=== PATIENT | male | born 1970 | race Caucasian/White ===

== ENCOUNTER 2019-10-06 15:11 | Emergency (ER) | payer SELFPAY ==
--- OUTSIDE RECORDS SUMMARY | 2019-10-06 16:16 | XMS REPORT | Continuity of Care Document ---
:1970 Author Organization [employer] Care Team Providers Name Role Phone [employer] Unavailable Un available Problems Problem Status Onset Classification Date Comments Sourc e Date Reported SOB Active 05/24/[address] STROKE Active 01/19/[address] Center LALITHA BILLING Active 04/04/20 [facility] ONLY [id number] 15 Medica l Center Discharge 03/30/20 04/02/2015 [facility] Diagnosis: 15 Medical Epileptic seizure Ce nter SEIZURES Active 03/30/20 [place] [id number] [facility] Center PNEUMONIA/URINARY Active 02/13/20 [facility][note 3] TRACT INFECTION [address] [place] [address] SEIZURES Active 12/12/19 [facility] NARCOLIC [address] [place] [address] INTOXICATION Center POSS SEIZURES Active 10/27/[address] SEIZURE, TODDS Active 10/27/[address] [place] [address] Discharge 07/21/19 07/22/2014 [facility] Diagnosis: 15 Medical Seizure Center Discharge 07/21/19 07/22/2014 [facility] Diagnosis: Medical Noncompliance Center AMS Active 07/20/[address] Center LIFE FLIGHT Active 07/20/[address] 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 [facility] [place] [address] [place] [address] Center LEFT LOWER BACK Active 06/22/19 [place] PAIN [address] [place] [address] Center VIRAL VS Active 07/09/19 [facility] PNEUMONIA SOB [facility] NECK PAIN Active 03/16/[address] Center Shortness of Active Problem 06/24/2012 [facility] as breath [facility] Center Degenerative disc Resolved Problem 06/24/2012 [facility] disease [facility] Emphysema Resolved Problem 06/24/2012 [facility] HTN - Resolved Problem 06/24/2012 [facility] Hypertension [facility] Meningitis Resolved Problem 06/24/2012 1spinal a [facility] child [facility] Slipped disc Resolved Problem 06/24/2012 2in neck-- [facility] elisa repaired [facility] Center Emphysema Resolved Problem 01/23/2016 [facility] (morphologic Medical abnormality) [place], [facility], [facility] Final: Pneumonia, 02/18/2015 [facility] unspecified City organism Cardiomegaly Resolved Problem 05/28/2016 [place] as (disorder) Medical Center,[facility] Intracranial Resolved Problem 05/28/2016 [place] as hemorrhage Medical (disorder) Center,[facility] Degeneration of Resolved Problem 05/28/2016 [facility] intervertebral Medic al disc (disorder) Cent er,[facility] Diabetes mellitus Resolved Problem 05/28/2016 [facility] (disorder) [facility] Hypertensive Resolved Problem 05/28/2016 [place] as disorder, Medical systemic arterial Ce nter, (disorder) [facility] Meningitis Resolved Problem 05/28/2016 spinal a a [facility] (disorder) [facility] Seizure (finding) Resolved Problem 05/28/2016 [facility] Dyspnea (finding) Active Problem 05/28/2016 [facility] Intervertebral Resolved Problem 05/28/2016 in neck-- [place] disc prolapse repaired Medica l (disorder) [place],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 SHORTNESS OF Active [facility] s BREATH [facility] FEBRILE Active [facility] CONVULSIONS NOS [facility] PNEUMONIA, Active Memori al UNSPECIFIED [place] ORGANISM URINARY TRACT Active [facility] orial INFECTION, SITE [place] NOT SPECIF POST TRAUMATIC Active [facility] morial SEIZURES [place] CEREBRAL Active [facility] INFARCTION, Medical UNSPECIFIED Center Medications Medication Details Route Status Patient Ordering Order Source Instructions Provider Date Acetaminophen 1 tab, PO, Active 05/25/ Karie 325 MG / Q4-6H, PRN [facility] Hospital Hydrocodone Pain Score Bitartrate 5 MG 6-10, X 5 Oral Tablet day, # 30 [[place] 5/325] tab, 0 Refill(s) Sodium Chloride 25 mL, Inactive 05/25/ Karie 0.9% IV Route: IV, [facility] Hospital Start date: 05/25/16 2:50:00 [employer]TELLIGENCE SUPERINTENDENT, Duration: 30 day, Stop date: 06/24/16 2:49:00 [employer]TE[employer] SUPERINTENDENT, PRN Line Flush Acetaminophen Notes: Do Inactive Karie 325 MG / not exceed 2017 Hospital Hydrocodone 4gm/day of Bitartrate 10 MG acetaminophe Oral Tablet n. (Same [Saltese 10/325] as: [place] 325/10) Sodium Chloride 1,000 mL, Inactive [place] 0.154 MEQ/ML Rate: 125 2017 Hospital Injectable ml/hr, Solution Infuse over: 8 hr, Route: IV, Dosing Weight 109.091 kg, Total Volume: 1,000, Start date: 05/25/16 0:46:00 [employer]TELL[employer] SUPERINTENDENT, Duration: 30 day, Stop date: 06/24/16 0:45:00 [employer]TE[employer] SUPERINTENDENT Levetiracetam Notes: Same Inactive [place] as [facility] 2017 Hospital Mix with 100 mL NS, LR or D5W MEDICATION WASTE Product Size: 500 mg Product Wasted: _0__ mg Saline Flush Notes: (Same Inactive [place] 0.9% as: 2017 Hospital Posiflush) [facility] Notes: Same No Longer Karie as [facility] Active 2017 Hospital Mix with 100 mL NS, LR or D5W MEDICATION WASTE Product Size: 500 mg Product Wasted: __0 mg Ativan 2 mg, Route: Inactive Karie IVP, Drug 2017 Hospital form: INJ, ONCE, Dosing Weight 109.091, kg, Priority: STAT, Start date: 05/24/16 20:23:00 [employer]TELLIGENCE SUPERINTENDENT, Stop date: 05/24/16 20:23:00 [employer]TELLIGENCE SUPERINTENDENT Ativan 2 mg, Route: Inactive Karie IVP, Drug 2017 Hospital form: INJ, ONCE, Dosing Weight 109.091, kg, Priority: STAT, Start date: 05/24/16 19:49:00 [employer]PER[employer] INTELLIGENCE SUPERINTENDENT, Stop date: 05/24/16 19:49:00 [employer] INTELLIGENCE SUPERINTENDENT Ondansetron 4 mg, Route: Inactive Vero y IVP, Drug 2017 Hospital form: INJ, ONCE, Dosing Weight 109.091, kg, Priority: STAT, Start date: 05/24/16 19:48:00 [employer]PER[employer] INTELLIGENCE SUPERINTENDENT, Stop date: 05/24/16 19:48:00 [employer]PERATIONS INTELLIGENCE SUPERINTENDENT Dexamethasone Notes: Inactive Vero saunders MEDICATION 2017 Hospital WASTE Product Size: 10 mg Product Wasted: __0_ mg Valium Notes: (Same Inactive [place]ie as: Valium) 2017 Hospital WASTE: F/P - Black; E - White/Blue Hydromorphone Notes: Same Inactive Sh[place]nam ty as Dilaudid 2017 Hospital Fentanyl Notes: (Same Inactive Karie as: 2017 Hospital Sublimaze) Preservative free. Sodium Chloride 1,000 mL, Inactive [place] 0.154 MEQ/ML 1,000 ml/hr, 2017 Hospit al Injectable Infuse Over: Solution 1 hr, Route: IV, 1,000, Drug form: INJ, ONCE, Priority: STAT, Dosing Weight 109.091 kg, Start date: 05/24/16 16:37:00 OPER[employer] INTELLIGENCE SUPERINTENDENT, Duration: 1 doses or times, Stop date: 05/24/16 16:37:00 [employer]PER[employer] INTELLIGENCE SUPERINTENDENT Ondansetron Notes: (Same Inactive Vero saunders as: Zofran) 2017 Hospital MEDICATION WASTE Product Size: 4 mg Product Wasted: _0__ mg Levetiracetam 1,000 mg = 2 [place] 500 MG Oral tab, PO, 2016 Medical Tablet [Keppra] BID, # 120 Cente r tab, 2 Refill(s) Lisinopril Notes: (Same [place] as: 2016 Medical Prinivil, Center Zestril) Aspirin 81 MG Notes: Do No Longer [place] as Enteric Coated not crush or Active 2015 Medi pablito Tablet chew. (Same Center As: Ecotrin) Acetaminophen Notes: (Same Inactive [place] 325 MG / as: [place] 2016 Medical Hydrocodone 325/5) Do Center Bitartrate 5 MG not exceed Oral Tablet 4gm/day of [[place] 5/325] acetaminophe n. heparin Notes: Inactive [place] porcine 2016 Medical heparin Center Tylenol Notes: Max No Longer [place] acetaminophe Active 2016 Medical n = 4000 Center mg/day (4 gm/day). (Same as: Tylenol) Saline Flush Notes: (Same No Longer [place] 0.9% as: BD Active 2015 Medical Posiflush) Center atorvastatin Notes: Same [place] Longer [place] as Lipitor Active 2015 Medical Center Docusate Notes: (Same No Longer [place] as: Colace) Active 2015 Medical (Do Not Center Crush) Lisinopril Notes: (Same No Longer [place] as as: Active 2015 Medical Prinivil, Center Zestril) Keppra Notes: Same No Longer [place] as Keppra Active 2015 Medical Mix with 100 Center mL NS, LR or D5W MEDICATION WASTE Product Size: 500 mg Product Wasted: 0 mg Saline Flush Notes: (Same No Longer [place] 0.9% as: BD Active 2015 Medical Posiflush) [place] Labetalol 105 mmHg, No Longer Sarah Priority: Active 2015 Medical Routine, Center Start date: 01/19/16 19:43:00 CDT, Duration: 30 day, Stop date: 02/18/16 19:42:00 CDT Bisacodyl Notes: (Same No Longer [place] As: Active 2015 Medical Dulcolax, [place] Bisco-Lax) iodixanol 100 mL, Inactive Sarah Route: IVP, 2015 Medical Drug Form: [place] SOLN, Dosing Weight 109, kg, ONCALL, STAT, Start date: 01/19/16 18:55:00 CDT, Duration: 1 doses or times, Dose = 2.2ml/kg, Max dose = 100ml -- "To be infused by Radiology Staff ONLY" Saline Flush Notes: (Same No Longer [place] 0.9% as: BD Active 2015 Medical Posiflush) [place] Acetaminophen 1 tab, Inactive [place] 325 MG / Route: PO, 2015 Medical Hydrocodone Drug Form: [place] Bitartrate 10 MG TAB, Dosing Oral Tablet Weight [Salt[place] 10/325] 95.455, kg, ONCE, STAT, Start date: 03/30/15 12:41:00, Stop date: 03/30/15 12:41:00 potassium Notes: (Same Inactive [place] phosphate-sodium as: 2014 Medical phosphate 250 Neutra-Phos) Cente r mg-278 mg-164 mg Each 1.25 oral powder gm pkt has 250mg phosphorous. Mix w/2.5oz water and stir. Levetiracetam 750 mg = 1 Active [place] 750 MG Oral tab, PO, 2014 Medical Tablet [Keppra] BID, # 60 Center tab, 0 Refill(s) K-Phos Original Route: PO, Inactive [place] ONCE, Dosing 2014 Medical Weight Center 95.455, kg, Start date: 03/30/15 12:09:00, Stop date: 03/30/15 12:09:00 Keppra 1,500 mg, Inactive [place] Route: IV, 2014 Medical ONCE, Dosing Center Weight 95.455, kg, Start date: 03/30/15 12:08:00, Stop date: 03/30/15 12:08:00 Tylenol 650 mg, Inactive [facility] Route: PO, 2014 Medical Drug form: Center TAB, ONCE, Dosing Weight 95.455, kg, Priority: STAT, Start date: 03/30/15 10:19:00, Stop date: 03/30/15 10:19:00 Morphine 4 mg, Route: Inactive [place] IVP, Drug 2014 Medical form: INJ, Center ONCE, Dosing Weight 95.455, kg, Priority: STAT, Start date: 03/30/15 10:18:00, Stop date: 03/30/15 10:18:00 Saline Flush Notes: Same No Longer [place] 0.9% as: BD Active 2014 Medical Posiflush Center Sterile levofloxacin 750 750 mg = 1 Active mg oral tablet tab, PO, 2014 [facility] [id number], # 5 City tab, 0 Refill(s) Valproic Acid 750 mg = 3 Active 250 MG Oral cap, PO, 2014 [facility] Capsule Q12H, # 180 City cap, 0 Refill(s) remove patch Notes: Inactive Remove old 2014 [facility] patch before [facility] application of new patch. valproic acid Notes: (Same Inactive As: 2014 [facility] Depakene) [facility] (Do Not Crush) Ativan Notes: (Same No Longer as: Ativan) Active 2014 [facility] Nicotine Notes: (Same No Longer as: Active 2014 [facility] Habitrol) [facility] "Remove old patch before application of new patch" Valproic Acid Notes: (Same No Longer 250 MG Oral As: Active 2014 [facility] Capsule Depakene) [facility] (Do Not Crush) Levaquin Notes: Do No Longer not give Active 2014 [facility] w/antacids, [facility] dairy pdt & minerals Take 1 hr before or 2 hr after dairy products Lorazepam Notes: (Same No Longer as: Ativan) Active 2014 [facility] Ativan Notes: (Same Inactive as: Ativan) 2014 [facility] fosphenytoin Notes: (Same Inactive as: Cerebyx) [address] [place] [address] Stated mg = [facility] mgPE. Refrigerat e ANTICONVULSA NT Do not confuse with celebrex. MEDICATION WASTE Product Size: 500 mg Product Wasted: 0_ mg Robaxin Notes: (Same No Longer as:Robaxin) Active 2014 [facility] Lisinopril Notes: (Same No Longer as: Active 2014 [facility]) Valproic Acid Notes: Inactive 100 MG/ML Dilute in at [address] [place] [address] Injectable least 50ml [facility] Solution D5W or NS. Infusion rate = 20 mg/min (Same As: Depacon) Acetaminophen Notes: Do No Longer 325 MG / not exceed Active [address] [place] [address] Hydrocodone 4gm/day of [facility] Bitartrate 10 MG acetaminophe Oral Tablet n. (Same [Saltese 10325] as: [place] 325/10) Phenytoin Notes: (Same No Longer as: Active 2014 [facility] Dilantin) [facility] Do not infuse greater than 50 mg/min. MEDICATION WASTE Product Size: 100 mg Product Wasted: ___ mg Sodium Chloride 25 mL, No Longer 0.9% IV Route: IV, Active [address] [place] [address] Start date: [facility] 02/12/15 23:05:00, Duration: 30 day, Stop date: 03/14/15 22:04:00, PRN Line Flush BD Normal Saline Notes: (Same No Longer Flush as: BD Active 2014 [facility] Posiflush) [facility] potassium Notes: No Longer chloride Infuse at a Active 2014 [facility] rate of 10 City mEq/hr. (Same as: KCL) potassium Notes: (Same No Longer phosphate-sodium as: Active 2014 [facility] l phosphate 250 Neutra-Phos) [facility] mg-278 mg-164 mg Each 1.25 oral powder gm pkt has 250mg phosphorous. Mix w/2.5oz water and stir. potassium Notes: (Same No Longer phosphate + as: K Active 2014 [facility] Sodium Chloride Phosphate.) [facility] 0.9% IV 250 mL 1 mMol phoshate has 1.47 mEq potassium Infuse over 4 hours sodium phosphate 15 mmol, 5 No Longer + Sodium mL, Route: [facility] 2014 [facility] Chloride 0.9% IV IVPB, PRN, City 250 mL Dosing Weight 86.3, kg, PRN Abnormal Lab Result, For NON-ICU Patients Only., Start date: 02/12/15 22:59:00, Duration: 30 day, Stop date: 03/14/15 21:58:00 Magnesium 1 gm, 100 No Longer Sulfate mL, Route: [facility] 2014 [facility] IVPB, Drug [facility] form: INJ, PRN, Dosing Weight 86.3, kg, PRN Abnormal Lab Result, For NON-ICU Patients Only., Start date: 02/12/15 22:59:00, Duration: 30 day, Stop date: 03/14/15 21:58:00 Calcium 2 gm, 20 mL, No Longer Gluconate Route: IVPB, [facility] 2014 [facility] PRN, Dosing City Weight 86.3, kg, PRN Abnormal Lab Result, For NON-ICU Patients Only., Start date: 02/12/15 22:59:00, Duration: 30 day, Stop date: 03/14/15 21:58:00 Magnesium Oxide Notes: (Same No Longer 10/ M H as: Mag-Ox Active 2014 [facility] 400) [facility] Magnesium oxide [id number] elemental magnesium Dose=____mg magnesium oxide (___mg elemental magnesium) Zosyn Notes: (Same No Longer as: Zosyn) Active 2014 [facility] Dosing based City on Piperacillin component MEDICATION WASTE Product Size: 4500 mg Product Wasted: 0 mg Docusate Notes: (Same No Longer as: Colace) Active 2014 [facility] (Do Not City Crush) Ondansetron Notes: (Same No Longer as: Zofran) Active 2014 [facility] MEDICATION WASTE Product Size: 4 mg Product Wasted: ___ mg Acetaminophen Notes: Do No Longer not exceed [address] [place] [address] gm/day. City (Same as: Tylenol) Lorazepam Notes: (Same No Longer as: Ativan) Active 2014 [facility] Vancomycin Notes: TIME No Longer CRITICAL Active [address] [place] [address] MEDICATION [facility] NS 1,000 mL 1,000 mL, No Longer Rate: [address] [place] [address] ml/hr, [facility] Infuse over: 8 hr, Route: IV, Dosing Weight 89.008 kg, Total Volume: 1,000, Start date: 02/12/15 18:32:00, Duration: 30 day, Stop date: 03/14/15 18:31:00 potassium Notes: (Same Inactive [place] phosphate-sodium as: 2014 Medical phosphate 250 Neutra-Phos) Cente r mg-278 mg-164 mg Each 1.25 oral powder gm pkt has 250mg phosphorous. Mix w/2.5oz water and stir. magnesium 2 gm, 50 mL, Inactive [place] sulfate 2 gm in Route: IVPB, 2015 Med ical Water 50 ml Drug form: Center INJ, ONCE, Dosing Weight 89.008, kg, Start date: 12/14/14 9:52:00, Duration: 2 hr, Stop date: 12/14/14 9:52:00 Folic Acid 1 MG 1 mg = 1 Active [place] Oral Tablet tab, PO, 2014 Medical Daily, # 30 Center tab, 2 Refill(s) thiamine 100 mg 100 mg = 1 [place] oral tablet tab, PO, 2014 Medical Daily, # 30 Center tab, 2 Refill(s) Valproic Acid 500 mg = 2 [place] 250 MG Oral cap, PO, 2015 Medical Capsule Q12H, # 120 Center cap, 2 Refill(s) cefpodoxime 100 Special Active [place] mg oral tablet Instructions 2015 Medi pablito : Take until Center all pills are gone. Neutra-Phos Notes: (Same Inactive [place] as as: 2014 Medical Neutra-Phos) Center Each 1.25 gm pkt has 250mg phosphorous. Mix w/2.5oz water and stir. Magnesium 2 gm, 50 mL, Inactive [place] Sulfate Route: IVPB, 2014 Medical Drug form: Center INJ, ONCE, Dosing Weight 89.008, kg, Start date: 12/14/14 6:12:00, Duration: 2 hr, Stop date: 12/14/14 6:12:00 cefpodoxime Notes: With No Longer G[place]gio as food. (Same Active 2014 Medical As: Vantin) Center Levofloxacin Notes: Do Inactive [place] not give 2014 Medical w/antacids, Center dairy pdt & minerals Take 1 hr before or 2 hr after dairy pdt (Same as:Levaquin) Ativan Notes: (Same No Longer [place] as: Ativan) Active 2014 [facility] Folic Acid Notes: (Same No Longer [place] as as: Folvite) Active 2014 Medical [place] multivitamin Notes: (Same No Longer [place] as:Thera) Active 2014 Medical Take with Center food. Thiamine Notes: (Same No Longer [place] As: Vitamin Active 2014 [facility] B1) Center Acetaminophen Notes: Do No Longer Gior[place] as 325 MG / not exceed Active 2014 [facility] Hydrocodone 4gm/day of Center Bitartrate 10 MG acetaminophe Oral Tablet n. (Same [Salt[place] 10325] as: [place] 325/10) Lorazepam Notes: (Same No Longer [place] as: Ativan) Active 2014 Medical Center Fentanyl Notes: (Same Inactive [place] as: 2015 Medical Sublimaze) Center Preservative free. Valproic Acid Notes: (Same No Longer [place] 250 MG Oral As: Active 2014 Medical Capsule Depakene) Center (Do Not Crush) Docusate Sodium Notes: (Same No Longer H [place] 50 MG / as Active 2014 Medical sennosides, [facility] Senokot-S) Cente r 8.6 MG Oral Equiv. to Tablet Di-Colace. heparin Notes: No Longer [place] porcine Active 2014 [facility] heparin Center Sodium Chloride 1,000 mL, No Longer [place] 0.154 MEQ/ML Rate: 125 Active 2014 Medical Injectable ml/hr, Center Solution Infuse over: 8 hr, Route: IV, Dosing Weight 89.9 kg, Total Volume: 1,000, Start date: 12/12/14 4:51:00, Duration: 30 day, Stop date: 01/11/15 4:50:00 Saline Flush Notes: Same No Longer [place] 0.9% as: BD Active 2014 [facility] Posiflush Center Sterile Valproic Acid Notes: Inactive [place] 100 MG/ML Dilute in at 2014 [facility] Injectable least 50ml Center Solution D5W or NS. Infusion rate = 20 mg/min (Same As: Depacon) Lorazepam Notes: (Same Inactive [place] as: Ativan) 2014 [facility] Doxycycline 100 100 mg = 1 Active [place] Oral Capsule cap, PO, [address] [facility] [address] Daily, X 7 day, # 7 cap, 0 Refill(s) normal saline 1,000 mL, Inactive 0.9% IV 1,000 mL Rate: 100 2014 [facility] ml/hr, Infuse over: 10 hr, Route: IV, Dosing Weight 86.364 kg, Total Volume: 1,000, Start date: 10/27/14 10:08:00, Duration: 30 day, Stop date: 11/26/14 10:07:00 Lisinopril Notes: (Same Inactive as: 2014 [facility] Prinivil, Zestril) Vyvanse 70 mg, Inactive Route: PO, 2014 [facility] Drug Form: CAP, Dosing Weight 86.364, kg, QAM, Start date: 10/27/14 9:00:00, Duration: 30 day, Stop date: 11/25/14 9:00:00 Divalproex Notes: (Same Inactive Sodium 250 MG as: Depakote 2014 [facility] Enteric Coated Delayed Tablet Release) Do [Depakote] not confuse with the extended-rel ease tablet. Delayed absorption, enteric coated tablet. Do not crush Celexa 10 mg, 1 Inactive tab, Route: 2014 [facility] PO, Drug form: TAB, Daily, Dosing Weight 86.364, kg, Start date: 10/27/14 9:00:00, Duration: 30 day, Stop date: 11/25/14 9:00:00 Patient's own Patient's Inactive med Vynase 70mg own med 2014 [facility] t Vynase 70mg, 1 cap, Drug form: MISC, Route: PO, QAM, 10/27/14 9:00:00, Duration: 30 day, Stop date: 11/25/14 9:00:00 Acetaminophen Notes: Do Inactive 325 MG / not exceed 2014 Hydrocodone 4gm/day of Bitartrate 10 MG acetaminophe Oral Tablet n. (Same [Salt[place] 10/325] as: [place] 325/10) nitroglycerin Notes: (Same No Longer 0.4 mg as:Nitroquic Active 2014 sublingual k, tablet Nitrostat) "Do Not Crush" Sublingual tablet atropine 0.5 mg, 5 No Longer mL, Route: Active 2014 IVP, Drug form: INJ, PRN, PRN Bradycardia, Start date: 10/26/14 23:28:00, Duration: 30 day, Stop date: 11/25/14 23:27:00 Lorazepam 1 mg, Route: Inactive IVP, Drug 2014 form: INJ, ONCE, Dosing Weight 86.364, kg, PRN as needed for anxiety, Start date: 10/26/14 18:06:00 Dilantin 1,000 mg, Inactive Route: IVPB, 2014 ONCE, Dosing Weight 86.364, kg, Priority: STAT, Start date: 10/26/14 17:59:00, Stop date: 10/26/14 17:59:00 Lorazepam 2 mg, Route: Inactive IVP, Drug 2014 [facility] form: INJ, ONCE, Dosing Weight 86.364, kg, Priority: STAT, Start date: 10/26/14 17:49:00, Stop date: 10/26/14 17:49:00 Acetaminophen 1 tab, Inactive 325 MG / Route: PO, 2014 [facility] Hydrocodone Drug Form: Bitartrate 5 MG TAB, Dosing Oral Tablet Weight [Saltese 5/325] 86.364, kg, ONCE, STAT, Start date: 10/26/14 17:12:00, Stop date: 10/26/14 17:12:00 Ativan 2 mg, Route: Inactive IM, Drug 2014 [facility] form: INJ, ONCE, Dosing Weight 86.364, kg, Priority: STAT, Start date: 10/26/14 16:00:00, Stop date: 10/26/14 16:00:00 Saline Flush Notes: (Same Inactive 0.9% as: BD 2014 [facility] Posiflush) Divalproex 250 mg = 1 Active [place] Sodium 250 MG tab, PO, 2014 Medical Enteric Coated TID, # 90 Center Tablet tab, 0 [Depakote] Refill(s) methocarbamol 750 mg = 1 Active 07/20[facility] [place] 750 mg oral tab, PO, 2014 Medical tablet TID, # 15 Center tab, 0 Refill(s) Lisinopril Notes: (Same Inactive 07/20[facility] [place] as: 2014 Medical Prinivil, Center Zestril) Divalproex Notes: (Same Inactive 07/20[facility] [place] Sodium 250 MG as: Depakote 2014 Medic al Enteric Coated Delayed Center Tablet Release) Do [Depakote] not confuse with the extended-rel ease tablet. Delayed absorption, enteric coated tablet. Do not crush Soma 350 mg, Inactive 07/20[facility] [place] Route: PO, 2014 Medical Drug form: Center TAB, TID, Dosing Weight 85, kg, Start date: 07/20/14 9:00:00, Duration: 30 day, Stop date: 08/18/14 17:00:00 Robaxin Notes: (Same Inactive 07/20[facility] [place] as:Robaxin) 2014 [facility] Lovenox Notes: (Same Inactive 07/20[facility] as: Lovenox) 2014 Medical Center Diazepam Notes: (Same Inactive [place] as: Valium) 2014 [facility] Center Acetaminophen Notes: Do Inactive [place] 325 MG / not exceed 2015 Medical Hydrocodone 4gm/day of Center Bitartrate 10 MG acetaminophe Oral Tablet n. (Same [Saltese 10325] as: [place] 325/10) lisdexamfetamine 70 mg = 1 [place] dimesylate 70 MG cap, PO, 2014 Medica l Oral Capsule QAM, ADHD, 0 Center [Vyvanse] Refill(s) Clonidine 0.1 mg, PO, Inactive [place] Hydrochloride BID, 2014 Medical 0.1 MG Oral Elevated BP, Center Tablet # 60 tab, 0 Refill(s) lisinopril 40 mg 40 mg = 1 [place] tab, PO, 2014 Medical Daily, # 30 Center tab, 0 Refill(s) diazepam 10 mg 10 mg = 1 [place] oral tablet tab, PO, 2014 Medical TID, Center Anxiety, 0 Refill(s) Carisoprodol 350 350 mg = 1 Active [place] Oral Tablet tab, PO, 2014 Medical [Soma] TID, # 21 Center tab, 0 Refill(s) Acetaminophen 1 tab, PO, [place] 325 MG / Q4H, for 2015 Medical Hydrocodone pain, # 24 Center Bitartrate 10 MG tab, 0 Oral Tablet Refill(s) [Saltese ] Divalproex 250 mg = 1 Active [place] Sodium 250 MG tab, PO, 2015 Medical Enteric Coated TID, # 270 Center Tablet tab, 0 [Depakote] Refill(s) Lorazepam Notes: (Same Inactive [place] as: Ativan) 2014 [facility] Acetaminophen Notes: (Same Inactive [place] 325 MG / as: [place] 2015 Medical Hydrocodone 325/5) Do Center Bitartrate 5 MG not exceed Oral Tablet 4gm/day of acetaminophe n. Divalproex 250 mg = 1 Inactive [place] Sodium 250 MG tab, PO, 2014 Medical Enteric Coated BID, # 30 Center Tablet tab, 0 [Depakote] Refill(s) Keppra 500 mg, Inactive [place] Route: IV, 2014 Medical ONCE, Dosing Center Weight 85, kg, Start date: 07/19/14 21:06:00, Stop date: 07/19/14 21:06:00 Magnesium 1 gm, 100 Inactive [place] Sulfate mL, Route: [address] [place] [address] IVPB, Drug Center form: INJ, ONCE, Dosing Weight 85, kg, Priority: STAT, Start date: 07/19/14 20:13:00, Stop date: 07/19/14 20:13:00 Valproic Acid Notes: Inactive [place] 100 MG/ML Dilute in at 2014 [facility] Injectable least 50ml Center Solution D5W or NS. Infusion rate = 20 mg/min (Same As: Depacon) Dilaudid 1 mg, Route: Inactive [place] IVP, ONCE, 2014 Medical Dosing Center Weight 85, kg, Priority: STAT, Start date: 07/19/14 18:47:00, Stop date: 07/19/14 18:47:00 Saline Flush Notes: (Same No Longer [place] 0.9% as: BD Active 2014 [facility] Posiflush) [place] Sodium Chloride 1,000 mL, [place] 0.154 MEQ/ML Infuse Over: 2014 Medica l Injectable 1 hr, Route: Center Solution IV, ONCE, Priority: STAT, kg, Start date: 07/19/14 17:48:00, Duration: 1 doses or times, Stop date: 07/19/14 17:48:00 [place] 5/325 oral 1 tab, PO, PO Active [facility] [place] tablet Q4-6H, PRN, 2012 Medical 21 tab, as Center needed for pain, Substitution Allowed, Maintenance Flexeril 10 mg 10 mg, 1 PO Active [facility] [place] oral tablet tab, PO, 2012 Medical TID, PRN, 30 Center tab, for spasm, Substitution Allowed, TAB naproxen 500 mg 500 mg, 1 PO Active [facility] [place] oral tablet tab, PO, 2012 Medical BID, PRN, 30 Center tab, Pain, Substitution Allowed morphine Sulfate 6 mg, 1.5 IM No Longer [facility] mL, Route: Active 2012 Medical IM, Drug Center form: INJ, ONCE, Dosing Weight 93.182, kg, Priority: STAT, Start date: 06/22/12 14:32:00, Stop date: 06/22/12 14:32:00 Valium 10 mg, 1 PO No Longer [facility] tab, Route: Active 2012 Medical PO, Drug Center form: TAB, ONCE, Dosing Weight 93.182, kg, Priority: STAT, Start date: 06/22/12 14:32:00, Stop date: 06/22/12 14:32:00 [place] 10/325 1 tab, PO, PO Active [facility] oral tablet Q6H, PRN, 2011 Medical tab, for Center pain, Substitution Allowed, Maintenance acetaminophen-hy 2 tab, PO [place] drocodone 325 Route: PO, Active 2011 Medical mg-10 mg oral Drug Form: Center tablet TAB, Q6H, PRN as needed for pain, Start date: 07/11/11 11:20:00, Duration: 30 day, Stop date: 08/10/11 11:19:00 azithromycin 250 250 mg, 1 PO No Longer [facility] [place] mg oral tablet tab, Route: Active 2011 Medic al PO, Drug Center form: TAB, BID, Start date: 07/11/11 9:00:00, Duration: 4 day, Stop date: 07/14/11 17:00:00 azithromycin 250 500 mg, 2 PO No Longer [facility] [place] mg oral tablet tab, Route: Active 2011 Medic al PO, Drug Center form: TAB, ONCE, Start date: 07/10/11 17:00:00, Stop date: 07/10/11 17:00:00 azithromycin 500 mg, 2 PO [place] Longer [facility] [place] tab, Route: Active 2011 Medical PO, Drug Center form: TAB, [id number], Start date: 07/10/11 15:00:00, Duration: 3 day, Stop date: 07/12/11 15:00:00 Tessalon Perles 200 mg, 2 PO [place] cap, Route: Active 2011 Medical PO, Drug Center form: CAP, TID, Start date: 07/10/11 9:00:00, Duration: 30 day, Stop date: 08/08/11 17:00:00 lisinopril 20 mg, 1 PO No Longer [facility] tab, Route: Active 2011 Medical PO, Drug Center form: TAB, Daily, Start date: 07/10/11 9:00:00, Duration: 30 day, Stop date: 08/08/11 9:00:00 Celexa 10 mg, 0.5 PO No Longer [facility] tab, Route: Active 2011 Medical PO, Drug Center form: TAB, Daily, Start date: 07/10/11 9:00:00, Duration: 30 day, Stop date: 08/08/11 9:00:00 Abilify 6 mg, 3 tab, PO No Longer [facility] Route: PO, Active 2011 Medical Drug form: Center TAB, Daily, Start date: 07/10/11 9:00:00, Duration: 30 day, Stop date: 08/08/11 9:00:00 nicotine 21 mg, 1 TOP No Longer [facility] patch, Active 2011 Medical Route: TOP, Center Drug form: ERFILM, Daily, Start date: 07/10/11 9:00:00, Duration: 30 day, Stop date: 08/08/11 9:00:00 acetylcysteine 600 mg, 3 NEB [place] 20% inhalation ml, Route: Active 2011 Medica l solution NEB, Drug Center Form: SOLN, RQ6H, Start date: 07/10/11 2:00:00, Stop date: 08/08/11 20:00:00 albuterol-ipratr 3 ml, Route: NEB No Longer [facility] opium 2.5-0.5 mg NEB, Drug Active 2011 Medic al inhalation Form: SOLN, Center solution RQ6H, Start date: 07/10/11 2:00:00, Duration: 30 day, Stop date: 08/08/11 20:00:00 Mucinex 600 mg, 1 PO No Longer [facility] tab, Route: Active 2011 Medical PO, Drug Center form: ERTAB, Q12H, Start date: 07/09/11 21:00:00, Duration: 30 day, Stop date: 08/08/11 9:00:00 azithromycin 500 mg, PO No Longer [facility] Route: PO, Active 2011 Medical Drug form: Center TAB, [id number], Start date: 07/09/11 21:00:00, Duration: 30 day, Stop date: 08/07/11 21:00:00 tuberculin 5 unit, 0.1 INTRADERM [place] purified protein mL, Route: Active 2011 Medi pablito derivative 5 INTRADERM, Center tuberculin ONCE, Start units/0.1 mL date: intradermal 07/09/11 solution 20:47:00, Stop date: 07/09/11 20:47:00 hydrALAZINE 10 mg, 0.5 IV [place] mL, Route: Active 2011 Medical IV, Drug Center form: INJ, Q4H, PRN Hypertension , Start date: 07/09/11 20:42:00, Duration: 30 day, Stop date: 08/08/11 20:41:00, SBP greater than 150 Valium 10 mg, 1 PO [facility] Longer [facility] tab, Route: Active 2011 Medical PO, Drug Center form: TAB, TID, PRN as needed for anxiety, Start date: 07/09/11 20:37:00, Duration: 30 day, Stop date: 08/08/11 20:36:00 Saltese 10/325 2 tab, PO No Longer [facility] oral tablet Route: PO, Active 2011 Medical Drug Form: Center TAB, Q6H, PRN as needed for pain, Start date: 07/09/11 20:36:00, Stop date: 08/08/11 20:35:00 ondansetron 4 mg, 2 mL, IVP No Longer [facility] [place] Route: IVP, Active 2011 Medical Drug form: Center INJ, Q6H, PRN Nausea & Vomiting, Start date: 07/09/11 20:34:00, Duration: 30 day, Stop date: 08/08/11 20:33:00 docusate 100 mg, 1 PO No Longer [facility] cap, Route: Active 2011 Medical PO, Drug Center form: CAP, BID, PRN Constipation , Start date: 07/09/11 20:34:00, Duration: 30 day, Stop date: 08/08/11 20:33:00 morphine Sulfate 2 mg, 1 mL, IVP [place]er [place] 07/09/ [facility] Route: IVP, Active 2011 Medical Drug form: Center INJ, Q4H, PRN Pain, Start date: 07/09/11 20:32:00, Duration: 30 day, Stop date: 08/08/11 20:31:00 azithromycin 500 mg, IVPB No Longer [facility] Route: IVPB, Active 2011 Medical ONCE, Center Priority: STAT, Start date: 07/09/11 18:08:00, Stop date: 07/09/11 18:08:00 Celexa PO, Daily, PO Active [facility] Substitution 2011 Medical Allowed Center azithromycin 500 mg, PO No Longer [facility] Route: PO, Active 2011 Medical ONCE, Center Priority: STAT, Start date: 07/09/11 17:26:00, Stop date: 07/09/11 17:26:00 Unknown Home PO, PO No Longer [facility] Medication Substitution Active 2011 Medical Allowed, [place] prnprn Abilify PO, Daily, PO No Longer [facility] Substitution Active 2011 Medical Allowed Center Valium 10 mg 10 mg, 1 PO No Longer [facility] oral tablet tab, PO, Active 2011 Medical TID, PRN, Center Anxiety, Substitution Allowed, TAB albuterol 0.083% 2.49 mg, 3 NEB No Longer [facility] inhalation mL, Route: Active 2011 Medical solution NEB, Drug Center form: SOLN, Q15Min, Priority: STAT, Start date: 07/09/11 17:09:00, Duration: 3 doses or times, Stop date: 07/09/11 17:39:00 Rocephin 1 gm, Route: IVPB [facility] Longer [facility] IVPB, Drug Active 2011 Medical form: Center PDR/INJ, [id number], Start date: 07/09/11 17:00:00, Duration: 30 day, Stop date: 08/07/11 17:00:00 Sodium Chloride 500 mL, IV No Longer [facility] [place] 0.9% (Bolus) IV Rate: 500 Active 2012 Medica l 500 mL ml/hr, Center Infuse over: 1 hr, Route: IV, Total Volume: 500, Bolus Dose, Priority: STAT, Start date: 07/09/11 16:18:00, Duration: 1 doses or times, Stop date: 07/09/11 17:17:00 Allergies, Adverse Reactions, Alerts Substance Category Reaction Severity Reaction Status Date Comments S ource type Reported aspirin Assertion Drug Active [facility] morphine Assertion Drug Active [facility] penicillins Assertion Drug Active [facility] sulfa drugs Assertion Drug Active [facility] Toradol Assertion Drug Active [facility] traMADol Assertion Drug Active [facility] Immunizations Immunization Date Given Site Status Last Updated Comments Ally rce pneumococcal 05/25/2016 Not Given [facility] 23-valent vaccine Ho spital influenza virus 05/25/2016 Not Given [facility] vaccine, Hospital inactivated Results Order Name Results Value Reference Date Interpretation Comments Ally rce Range URINE AND UA <=1.0 0.1 - 1.0 05/25 [facility] STOOL Urobilinogen mg/dL /2016 [facility] URINE AND UA Turbidity Clear Clear 05/25 [facility] STOOL (05/25/16 12:51 AM) /2016 [facility] URINE AND UA Spec Grav 1.034 <=1.030 05/25 [facility] STOOL [facility] URINE AND UA Color Light Yellow Yellow 05/25 [facility] STOOL *NA* /2016 [facility] (05/25/16 12:51 AM) URINE AND UA Ketones Negative Negative 05/25 [facility] STOOL mg/dL mg/dL Hospital URINE AND UA Bili Negative Negative 05/25 [facility] STOOL *NA* /2016 [facility] (05/25/16 12:51 AM) URINE AND UA pH 8.0 5.0 - 8.0 05/25 [facility] STOOL Hospital URINE AND UA Protein Negative Negative 05/25 [facility] STOOL mg/dL mg/dL [facility] URINE AND UA Glucose Negative Negative 05/25 [facility] STOOL mg/dL mg/dL Hospital URINE AND UA Sq Epi Occasional Few /LPF 05/25 [facility] STOOL /LPF /2016 Hospital URINE AND UA RBC 1 0 - 2 05/25 [facility] STOOL Hospital URINE AND UA Blood Negative Negative 05/25 [facility] STOOL (05/25/16 12:51 AM) [facility] URINE AND UA Nitrite Negative Negative 05/25 [facility] STOOL (05/25/16 12:51 AM) [facility] URINE AND UA Leuk Est Negative Negative 05/25 [facility] STOOL (05/25/16 12:51 AM) [facility] CARDIAC CK MB Index 0.9 0.0 - 2.5 05/24 [facility] CARDIAC CK MB 1.6 0.5 - 3.6 05/24 [facility] CARDIAC Total CK 183 12 - 191 05/24 [facility] CARDIAC Troponin-I <0.02 0.00 - 05/24 [facility] ENZYMES 0.40 Hospital ELECTROLYT AGAP 11.7 10.0 - 05/24 [facility] ES 20.0 Hospital ELECTROLYT eGFR 97 05/24 Result Comment: The Hospital eGFR is calculated using the CKD-EPI formula. In most young, healthy individuals the eGFR will be >90 mL/min/1.73m2 . The eGFR declines with age. An eGFR of 60-89 may be normal in some populations, particularly the elderly, for whom the CKD-EPI formula has not been extensively validated. Use of the eGFR is not recommended in the following populations:< br/>
Brittany viduals with unstable creatinine concentration s, including patients and those with serious co-morbid conditions.<b r/>
Patie nts with extremes in muscle mass or diet.

The data above are obtained from the National Kidney Disease Education Program (NKDEP) which additionally recommends that when the eGFR is used in patients with extremes of body mass index for purposes of drug dosing, the eGFR should be multiplied by the estimated BMI. ELECTROLYT CO2 27 24 - 32 05/24 Hospital ELECTROLYT Calcium Lvl 9.0 8.5 - 10.5 05/24 y Hospital ELECTROLYT Glucose Lvl 110 70 - 99 05/24 Hospital ELECTROLYT BUN 15 7 - 22 05/24 Hospital ELECTROLYT Potassium 3.7 3.5 - 5.1 05/24 [facility] ES Lvl /2016 Hospital ELECTROLYT Sodium Lvl 139 135 - 145 05/24 [facility] ELECTROLYT Chloride Lvl 104 95 - 109 05/24 [facility] ELECTROLYT Creatinine 0.94 0.50 - 05/24 [facility] ES Lvl 1.40 /2016 Hospital HEMATOLOGY Segs-Bands # 10.7 1.5 - 8.1 05/24 [facility] HEMATOLOGY Basophils 0.9 0.0 - 1.0 05/24 [facility] HEMATOLOGY Eosinophils 0.2 0.0 - 0.5 05/24 [facility] # /2016 Hospital HEMATOLOGY Lymphocytes 2.1 1.0 - 5.5 05/24 [facility] # /2016 Hospital HEMATOLOGY Monocytes # 1.2 0.0 - 0.8 05/24 [facility] HEMATOLOGY Basophils # 0.1 0.0 - 0.2 05/24 [facility] HEMATOLOGY Segs 74.6 45.0 - 05/24 [facility] 75.0 Hospital HEMATOLOGY Lymphocytes 14.6 20.0 - 05/24 [facility] 40.0 Hospital HEMATOLOGY Monocytes 8.4 2.0 - 12.0 05/24 [facility] HEMATOLOGY Eosinophils 1.5 0.0 - 4.0 05/24 [facility] HEMATOLOGY MCH 31.8 27.0 - 05/24 [facility] 31.0 [facility] HEMATOLOGY MCV 93.9 80.0 - 05/24 [facility] 94.0 Hospital HEMATOLOGY MCHC 33.9 32.0 - 05/24 [facility] 36.0 Hospital HEMATOLOGY Hct 42.7 42.0 - 05/24 [facility] 54.0 Hospital HEMATOLOGY MPV 9.7 7.4 - 10.4 05/24 [facility] HEMATOLOGY Platelet 224 133 - 450 05/24 [facility] HEMATOLOGY RDW 12.9 11.5 - 05/24 [facility] 14.5 Hospital HEMATOLOGY WBC 14.3 3.7 - 10.4 05/24 [facility] HEMATOLOGY RBC 4.55 4.70 - 05/24 [facility] 6.10 Hospital HEMATOLOGY Hgb 14.5 14.0 - 05/24 [facility] 18. [facility] CHEM PANEL eGFR 108 01/19 Result Comment: The Medical eGFR is Center calculated using the CKD-EPI formula. In most young, healthy individuals the eGFR will be >90 mL/min/1.73m2 . The eGFR declines with age. An eGFR of 60-89 may be normal in some populations, particularly the elderly, for whom the CKD-EPI formula has not been extensively validated. Use of the eGFR is not recommended in the following populations:< br/>
Brittany viduals with unstable creatinine concentration s, including patients and those with serious co-morbid conditions.<b r/>
Patie nts with extremes in muscle mass or diet.

The data above are obtained from the National Kidney Disease Education Program (NKDEP) which additionally recommends that when the eGFR is used in patients with extremes of body mass index for purposes of drug dosing, the eGFR should be multiplied by the estimated BMI. CHEM PANEL Glucose Lvl 95 70 - 99 01/19 [facility] CHEM PANEL BUN 13 7 - 22 01/19 [facility] CHEM PANEL Chloride Lvl 104 95 - 109 01/19 [facility] CHEM PANEL Calcium Lvl 8.4 8.5 - 10.5 01/19 [facility] CHEM PANEL CO2 28 24 - 32 01/19 [facility] CHEM PANEL Creatinine 0.80 0.50 - 01/19 [facility] Lvl 1.40 [facility] CHEM PANEL Potassium 3.7 3.5 - 5.1 01/19 [facility] CHEM PANEL Sodium Lvl 139 135 - 145 01/19 [facility] CHEM PANEL AGAP 10.7 10.0 - 01/19 [place] 20.0 [facility] HEMATOLOGY WBC 7.2 3.7 - 10.4 01/19 [facility] HEMATOLOGY RBC 4.67 4.70 - 01/19 [place] 6.10 [facility] HEMATOLOGY Hgb 14.6 14.0 - 01/19 [place] 18.0 [facility] HEMATOLOGY MCV 92.0 80.0 - 01/19 [place] 94.0 [facility] HEMATOLOGY Hct 43.0 42.0 - 01/19 [place] 54.0 /2015 [facility] HEMATOLOGY MCH 31.2 27.0 - 01/19 [place] 31.0 /2015 [facility] HEMATOLOGY MCHC 33.9 32.0 - 01/19 [place] 36.0 /2015 [facility] HEMATOLOGY RDW 13.4 11.5 - 01/19 [place] 14.5 /2015 [facility] HEMATOLOGY Platelet 168 133 - 450 01/19 [facility] HEMATOLOGY MPV 10.0 7.4 - 10.4 01/19 [facility] HEMATOLOGY Eosinophils 4.8 0.0 - 4.0 01/19 [place] /2015 [facility] HEMATOLOGY Lymphocytes 35.7 20.0 - 01/19 [place] 40.0 /2015 [facility] HEMATOLOGY Monocytes 9.1 2.0 - 12.0 01/19 [facility] HEMATOLOGY Segs 49.2 45.0 - 01/19 [place] 75.0 /2015 [facility] HEMATOLOGY Monocytes # 0.7 0.0 - 0.8 01/19 a s /2015 [facility] HEMATOLOGY Eosinophils 0.3 0.0 - 0.5 01/19 [place] # /2015 [facility] HEMATOLOGY Basophils # 0.1 0.0 - 0.2 01/19 a s [facility] HEMATOLOGY Lymphocytes 2.6 1.0 - 5.5 01/19 [place] # /2015 [facility] HEMATOLOGY Basophils 1.2 0.0 - 1.0 01/19 [facility] HEMATOLOGY Segs-Bands # 3.5 1.5 - 8.1 01/19 [facility] TOXICOLOGY Ethanol Lvl <3 01/19 [facility] TOXICOLOGY Etoh (%) <0.003 01/19 [facility] DRUG UDS Note See Note 01/19 [place] SCREEN (01/19/16 10:50 PM) /2015 Medic al Center DRUG U Phencyc Negative Negative 01/19 [place] SCREEN Scr *NA* /2015 Medical (01/19/16 10:50 PM) Cente r DRUG U Cocaine Negative Negative 01/19 [facility] SCREEN Scr *NA* /2015 Medical (01/19/16 10:50 PM) Cente r DRUG U Benzodia Positive Negative 01/19 [place] SCREEN Scr *ABN* /2015 Medical (01/19/16 10:50 PM) Cente r DRUG U Shi Scr Negative Negative 01/19 [facility] SCREEN *NA* /2015 Medical (01/19/16 10:50 PM) Cente r DRUG U Amph Scr Negative Negative 01/19 [facility] SCREEN *NA* /2015 Medical (01/19/16 10:50 PM) Cente r DRUG U Opiate Scr Positive Negative 01/19 [facility] SCREEN *ABN* /2015 Medical (01/19/16 10:50 PM) Cente r DRUG U Cannab Scr Negative Negative 01/19 [facility] SCREEN *NA* /2016 Medical (01/19/16 10:50 PM) Cente r URINE AND UA <=1.0 0.1 - 1.0 01/19 [facility] STOOL Urobilinogen mg/dL /2015 [facility] URINE AND UA Spec Grav >=1.050 <=1.030 01/19 [facility] STOOL *ABN* /2015 Medical (01/19/16 10:50 PM) Cente r URINE AND UA WBC 1 0 - 5 01/19 [facility] STOOL /2015 [facility] URINE AND Micro? Performed 01/19 [facility] STOOL *NA* /2015 Medical (01/19/16 10:50 PM) Cente r URINE AND UA Mucus Moderate None Seen 01/19 [place] STOOL /LPF /LPF /2015 Medical [place] URINE AND UA CaOx Cheryl Few /HPF None Seen 01/19 [facility] STOOL /HPF /2015 [facility] URINE AND UA Leuk Est Negative Negative 01/19 [facility] STOOL (01/19/16 10:50 PM) /2015 Medic al Center URINE AND UA Nitrite Negative Negative 01/19 [facility] STOOL (01/19/16 10:50 PM) /2015 Medic al Center URINE AND UA Ketones Negative Negative 01/19 [facility] STOOL mg/dL mg/dL /2015 [facility] URINE AND UA Bili Negative Negative 01/19 [facility] STOOL *NA* /2015 Medical (01/19/16 10:50 PM) Cente r URINE AND UA Blood Negative Negative 01/19 [facility] STOOL (01/19/16 10:50 PM) /2015 Medic al Center URINE AND UA Glucose Negative Negative 01/19 [facility] STOOL mg/dL mg/dL /2015 Medical [place] URINE AND UA Protein 50 mg/dL Negative 01/19 [facility] STOOL mg/dL /2015 [facility] URINE AND UA Color Yellow Yellow 01/19 [facility] STOOL *NA* /2015 Medical [facility]01/19/16 10:50 PM[facility] Turbidity Clear Clear 01/19 [facility] STOOL (01/19/16 10:50 PM) /2015 [facility] URINE AND UA pH 6.0 5.0 - 8.0 01/19 [facility] STOOL [facility] LIPIDS CHD Risk 5.46 4.00 - 01/19 [place] 7.30 [facility] LIPIDS VLDL 51 01/19 [facility] LIPIDS LDL 114 <=99 mg/dL 01/19 [place] (Calculated) [facility] LIPIDS HDL 37 >=61 mg/dL 01/19 [place] [facility] LIPIDS Trig 254 <=149 01/19 [facility] mg/dL [facility] LIPIDS Chol 202 <=199 01/19 [facility] mg/dL [facility] SPECIAL Hgb A1C 6.0 <=5.6 % 01/19 [facility] CHEMISTRY /2015 [facility] CARDIAC Total CK 144 12 - 191 01/18 [facility] ENZYMES /2015 [facility] CARDIAC Troponin-I <0.02 0.00 - 01/18 [facility] ENZYMES 0.40 [facility] CARDIAC CK MB 1.8 0.5 - 3.6 01/18 [facility] ENZYMES [facility] CARDIAC CK MB Index 1.2 0.0 - 2.5 01/18 [facility] ENZYMES [facility] CHEM PANEL Bili Direct 0.1 0.0 - 0.3 01/18 [place] [facility] CHEM PANEL A/G Ratio 1.0 0.7 - 1.6 01/18 [place] /2015 [facility] CHEM PANEL Globulin 3.7 2.7 - 4.2 01/18 [place] [facility] CHEM PANEL Bili 0.0 0.0 - 1.0 01/18 [place] Indirect [facility] CHEM PANEL Total 7.3 6.4 - 8.4 01/18 [facility] Protein [facility] CHEM PANEL Albumin Lvl 3.6 3.5 - 5.0 01/18 [place] [facility] CHEM PANEL ALT 72 0 - 65 01/18 [place] /2015 [facility] CHEM PANEL Bili Total 0.1 0.2 - 1.3 01/18 [place] /[address] [place] [address] CHEM PANEL Alk Phos 103 39 - 136 01/18 [place] /2015 [facility] CHEM PANEL AST 39 0 - 37 01/18 [facility] CHEM PANEL Phosphorus 3.8 2.5 - 4.5 01/18 [facility] CHEM PANEL Magnesium 1.8 1.8 - 2.4 01/18 [facility] ELECTROLYT AGAP 12.0 10.0 - 01/18 [facility] 20.0 [facility] ELECTROLYT Potassium 4.0 3.5 - 5.1 01/18 [facility] ELECTROLYT eGFR 87 01/18 [facility] Comment: The [facility] eGFR is Center calculated using the CKD-EPI formula. In most young, healthy individuals the eGFR will be >90 mL/min/1.73m2 . The eGFR declines with age. An eGFR of 60-89 may be normal in some populations, particularly the elderly, for whom the CKD-EPI formula has not been extensively validated. Use of the eGFR is not recommended in the following populations:< br/>
Brittany viduals with unstable creatinine concentration s, including patients and those with serious co-morbid conditions.<b r/>
Patie nts with extremes in muscle mass or diet.

The data above are obtained from the National Kidney Disease Education Program (NKDEP) which additionally recommends that when the eGFR is used in patients with extremes of body mass index for purposes of drug dosing, the eGFR should be multiplied by the estimated BMI. ELECTROLYT CO2 29 24 - 32 01/18 [facility] ELECTROLYT Chloride Lvl 104 95 - 109 01/18 [place] [facility] ELECTROLYT Calcium Lvl 8.8 8.5 - 10.5 01/18 [place] [facility] ELECTROLYT BUN 13 7 - 22 01/18 [facility] ELECTROLYT Glucose Lvl 101 70 - 99 01/18 [facility] ELECTROLYT Sodium Lvl 141 135 - 145 01/18 [facility] ELECTROLYT Creatinine 1.03 0.50 - 01/18 [facility] Lvl 1.40 [facility] HEMATOLOGY Lymphocytes 34.9 20.0 - 01/18 [facility] 40.0 [facility] HEMATOLOGY Monocytes 14.1 2.0 - 12.0 01/18 [facility] HEMATOLOGY Eosinophils 5.1 0.0 - 4.0 01/18 s /2015 [facility] [place] HEMATOLOGY Basophils 1.3 0.0 - 1.0 01/18 [facility] HEMATOLOGY Segs-Bands # 3.6 1.5 - 8.1 01/18 [facility] HEMATOLOGY Monocytes # 1.1 0.0 - 0.8 01/18 [facility] HEMATOLOGY Lymphocytes 2.8 1.0 - 5.5 01/[place] HEMATOLOGY Basophils # 0.1 0.0 - 0.2 01/18 [facility] [place] HEMATOLOGY Eosinophils 0.4 0.0 - 0.5 01/[place]2015 [facility] HEMATOLOGY Segs 44.6 45.0 - 01/18 [place] 75.0 [facility] HEMATOLOGY Hct 42.2 42.0 - 01/18 [place] 54.0 [facility] HEMATOLOGY Hgb 14.2 14.0 - 01/18 [place] 18.0 [facility] HEMATOLOGY RBC 4.58 4.70 - 01/18 [place] 6.10 /2015 [facility] [place] HEMATOLOGY WBC 8.1 3.7 - 10.4 01/18 [facility] HEMATOLOGY MCV 92.2 80.0 - 01/18 [place] 94.0 /2015 [facility] [place] HEMATOLOGY MCH 31.0 27.0 - 01/18 [place] 31.0 [facility] HEMATOLOGY MCHC 33.6 32.0 - 01/18 [place] 36.0 [facility] HEMATOLOGY Platelet 159 133 - 450 01/18 [facility] HEMATOLOGY RDW 13.8 11.5 - 01/18 [place] 14.5 [facility] HEMATOLOGY MPV 9.5 7.4 - 10.4 01/18 [facility] HEMATOLOGY INR 0.87 0.85 - 01/18 [place] 1.17 [facility] HEMATOLOGY PT 12.1 12.0 - 01/18 [place] 14.7 [facility] HEMATOLOGY PTT 24.3 22.9 - 01/18 [place] 35.8 [facility] TOXICOLOGY Etoh (%) <0.003 03/30 [facility] TOXICOLOGY Ethanol Lvl <3 03/30 [facility] CHEM PANEL Phosphorus 1.6 2.5 - 4.5 03/30 [facility] CHEM PANEL Magnesium 2.0 1.8 - 2.4 03/30 [facility] Lvl [facility] CHEM PANEL Globulin 4.3 2.0 - 4.0 03/30 [facility] CHEM PANEL A/G Ratio 0.9 0.7 - 1.6 03/30 [facility] CHEM PANEL Alk Phos 102 39 - 136 03/30 [facility] CHEM PANEL Bili Total 0.2 0.2 - 1.3 03/30 [facility] CHEM PANEL AST 36 0 - 37 03/30 [facility] CHEM PANEL Total 8.2 6.4 - 8.4 03/30 Protein [facility] CHEM PANEL Albumin Lvl 3.9 3.5 - 5.0 03/30 [facility] CHEM PANEL ALT 61 0 - 65 03/30 [facility] CHEM PANEL Bili Direct 0.0 0.0 - 0.3 03/30 [facility] CHEM PANEL Bili 0.2 0.0 - 1.0 03/30 Indirect [facility] CHEM PANEL eGFR 89 03/30 [facility] Comment: The Medical eGFR is Center calculated using the CKD-EPI formula. In most young, healthy individuals the eGFR will be >90 mL/min/1.73m2 . The eGFR declines with age. An eGFR of 60-89 may be normal in some populations, particularly the elderly, for whom the CKD-EPI formula has not been extensively validated. Use of the eGFR is not recommended in the following populations:< br/>
Brittayn viduals with unstable creatinine concentration s, including patients and those with serious co-morbid conditions.<b r/>
Patie nts with extremes in muscle mass or diet.

The data above are obtained from the National Kidney Disease Education Program (NKDEP) which additionally recommends that when the eGFR is used in patients with extremes of body mass index for purposes of drug dosing, the eGFR should be multiplied by the estimated BMI. CHEM PANEL Calcium Lvl 9.3 8.5 - 10.5 03/30 [facility] CHEM PANEL BUN 9 7 - 22 03/30 [facility] CHEM PANEL Glucose Lvl 106 70 - 99 03/30 /2014 [facility] CHEM PANEL Potassium 4.5 3.5 - 5.1 03/30 [place] Lvl /2014 [facility] CHEM PANEL Sodium Lvl 136 135 - 145 03/30 [facility] CHEM PANEL Creatinine 1.02 0.50 - 03/30 [place] Lvl 1.40 /2014 [facility] CHEM PANEL CO2 26 24 - 32 03/30 /2014 [facility] CHEM PANEL Chloride Lvl 101 95 - 109 03/30 [place]2014 [facility] [place] CHEM PANEL AGAP 13.5 10.0 - 03/30 [place] 20.0 /2014 [facility] Center DRUG U Phencyc Negative Negative 03/30 [facility] SCREEN Scr *NA* Medical (03/30/15 10:21 AM) Cent er DRUG UDS Note See Note 03/30 [place] SCREEN *NA* Medical (03/30/15 10:21 AM) Cent er DRUG U Cocaine Negative Negative 03/30 [facility] SCREEN Scr *NA* Medical (03/30/15 10:21 AM) Cent er DRUG U Cannab Scr Negative Negative 03/30 [facility] SCREEN *NA* Medical (03/30/15 10:21 AM) Cent er DRUG U Benzodia Negative Negative 03/30 [facility] SCREEN Scr *NA* Medical (03/30/15 10:21 AM) Cent er DRUG U Shi Scr Negative Negative 03/30 [facility] SCREEN *NA* Medical (03/30/15 10:21 AM) Cent er DRUG U Opiate Scr Negative Negative 03/30 [facility] SCREEN *NA* Medical (03/30/15 10:21 AM) Cent er DRUG U Amph Scr Negative Negative 03/30 [facility] SCREEN *NA* Medical (03/30/15 10:21 AM) Cent er HEMATOLOGY PT 11.9 12.0 - 03/30 [place] 14.7 /2014 [facility] HEMATOLOGY INR 0.85 0.85 - 03/30 [place] 1.17 [facility] HEMATOLOGY PTT 22.7 22.9 - 03/30 [place] 35.8 /2014 [facility] TOXICOLOGY Valproic 4 50 - 100 03/30 [facility] Acid Lvl /2014 [facility] URINE AND UA RBC None Seen 0 - 2 03/30 [facility] STOOL (03/30/15 10:21 AM) /2014 [facility] URINE AND UA Sq Epi Rare /LPF Few /LPF 03/30 [facility] STOOL /2014 [facility] URINE AND UA WBC 0-2 /HPF None Seen 03/30 [facility] STOOL /HPF /2014 [facility] URINE AND UA Blood Negative Negative 03/30 [facility] STOOL (03/30/15 10:21 AM) [facility] URINE AND UA Leuk Est Negative Negative 03/30 [facility] (03/30/15 10:21 AM) [facility] URINE AND UA 0.2 0.1 - 1.0 03/30 [facility] Urobilinogen /2014 [facility] URINE AND UA Bili Negative Negative 03/30 [facility] STOOL *NA* /2014 Medical (03/30/15 10:21 AM) Cent er URINE AND UA Ketones Negative Negative 03/30 [facility] mg/dL mg/dL [facility] URINE AND UA Glucose Negative Negative 03/30 [facility] mg/dL mg/dL /2014 [facility] URINE AND UA Protein Negative Negative 03/30 [facility] mg/dL mg/dL [facility] URINE AND UA pH 7.5 5.0 - 8.0 03/30 [facility] STOOL /2014 [facility] URINE AND UA Spec Grav 1.015 <=1.030 03/30 [facility] STOOL /2014 [facility] URINE AND UA Color Yellow Yellow 03/30 [facility] *NA* /2014 Medical (03/30/15 10:21 AM) Cent er URINE AND UA Turbidity Clear Clear 03/30 [facility] (03/30/15 10:21 AM) /2014 [facility] URINE AND UA Nitrite Negative Negative 03/30 [facility] (03/30/15 10:21 AM) [facility] TOXICOLOGY Phenytoin 14.4 10.0 - 02/15 Total 20.0 [facility] TOXICOLOGY Phenytoin 1.31 1.00 - 02/15 Free 2.00 /2014 [facility] CARDIAC Total CK 44 12 - 191 02/14 ENZYMES [facility] CHEM PANEL Magnesium 2.0 1.8 - 2.4 02/14 Lvl [facility] CHEM PANEL Phosphorus 2.7 2.5 - 4.5 02/14 [facility] CHEM PANEL Creatinine 0.7 0.5 - 1.4 02/14 Lvl /2014 [facility] CHEM PANEL Sodium Lvl 142 135 - 145 02/14 [facility] CHEM PANEL Potassium 4.1 3.5 - 5.1 02/14 [facility] Lvl /2014 [facility] CHEM PANEL Calcium Lvl 8.2 8.5 - 10.5 02/14 [facility] CHEM PANEL Chloride Lvl 108 95 - 109 02/14 [facility] CHEM PANEL Glucose Lvl 103 70 - 99 02/14 [facility] CHEM PANEL B/C Ratio 13 6 - 25 10 [facility] CHEM PANEL AGAP 9.1 10.0 - 10 [facility] 20.0 /2014 [facility] CHEM PANEL BUN 9 7 - 22 10 [facility] CHEM PANEL CO2 29 24 - 32 02/14 [facility] CHEM PANEL Total 5.8 6.4 - 8.4 02/14 [facility] CHEM PANEL ALT 28 0 - 65 02/14 [facility] CHEM PANEL A/G Ratio 0.9 0.7 - 1.6 02/14 [facility] CHEM PANEL Albumin Lvl 2.7 3.5 - 5.0 02/14 [facility] CHEM PANEL Globulin 3.1 2.0 - 4.0 02/14 [facility] CHEM PANEL Bili Total 0.2 0.2 - 1.3 02/14 [facility] CHEM PANEL AST 17 0 - 37 02/14 [facility] CHEM PANEL Alk Phos 72 39 - 136 02/14 [facility] CHEM PANEL eGFR 115 02/14 [facility] Comment: The [facility] eGFR is City calculated using the CKD-EPI formula. In most young, healthy individuals the eGFR will be >90 mL/min/1.73m2 . The eGFR declines with age. An eGFR of 60-89 may be normal in some populations, particularly the elderly, for whom the CKD-EPI formula has not been extensively validated. Use of the eGFR is not recommended in the following populations:< br/>
Brittany viduals with unstable creatinine concentration s, including patients and those with serious co-morbid conditions.<b r/>
Patie nts with extremes in muscle mass or diet.

The data above are obtained from the National Kidney Disease Education Program (NKDEP) which additionally recommends that when the eGFR is used in patients with extremes of body mass index for purposes of drug dosing, the eGFR should be multiplied by the estimated BMI. HEMATOLOGY Eosinophils 0.3 0.0 - 0.5 02/14 MH # /2014 [facility] HEMATOLOGY Macrocyte 1+ None Seen 02/14 [facility] *ABN* /2014 [facility] Segs-Bands # 5.2 1.5 - 8.1 02/14 [facility] HEMATOLOGY Lymphocytes 2.2 1.0 - 5.5 02/14 MH # /2014 [facility] HEMATOLOGY Monocytes # 0.9 0.0 - 0.8 02/14 [facility] HEMATOLOGY Basophils 0.5 0.0 - 1.0 02/14 [facility] HEMATOLOGY Eosinophils 3.7 0.0 - 4.0 02/14 [facility] HEMATOLOGY Plt Morph Normal 02/14 (02/14/15 4:00 AM) /2014 [facility] HEMATOLOGY Segs 59.6 45.0 - 02/14 MH 75.0 [facility] HEMATOLOGY Lymphocytes 25.8 20.0 - 02/14 MH 40.0 [facility] HEMATOLOGY Monocytes 10.4 2.0 - 12.0 02/14 [facility] HEMATOLOGY MPV 9.6 7.4 - 10.4 02/14 [facility] HEMATOLOGY Platelet 163 133 - 450 02/14 [facility] HEMATOLOGY RDW 13.7 11.5 - 02/14 MH 14.5 /2014 [facility] HEMATOLOGY MCHC 33.0 32.0 - 02/14 MH 36.0 [facility] HEMATOLOGY MCH 31.8 27.0 - 02/14 MH 31.0 [facility] HEMATOLOGY MCV 96.6 80.0 - 02/14 MH 94.0 /2014 [facility] HEMATOLOGY Hct 37.3 42.0 - 02/14 MH 54.0 [facility] HEMATOLOGY Hgb 12.3 14.0 - 02/14 MH 18.0 [facility] HEMATOLOGY RBC 3.87 4.70 - 02/14 MH 6.10 [facility] HEMATOLOGY WBC 8.7 3.7 - 10.4 02/14 [facility] TOXICOLOGY Valproic 49 50 - 100 02/14 Acid Lvl /2014 [facility] TOXICOLOGY Phenytoin 2.16 1.00 - 02/14 [facility] Free 2.00 /2014 [facility] TOXICOLOGY Phenytoin 16.6 10.0 - 02/14 Total 20.0 [facility] TOXICOLOGY Phenytoin 0.22 1.00 - 02/13 Free 2. [facility] TOXICOLOGY Phenytoin 1.9 10.0 - 02/13 Total 20.0 [facility] URINE AND UA <=1.0 0.1 - 1.0 02/13 STOOL Urobilinogen mg/dL /2014 [facility] URINE AND UA Glucose 50mg/dl 02/13 STOOL [facility] URINE AND UA Ketones Negative 02/13 STOOL [facility] URINE AND UA Mucus Few /LPF None Seen 02/13 STOOL /LPF [facility] URINE AND UA Sq Epi Few /LPF Few /LPF 02/13 [facility] URINE AND UA Leuk Est Negative Negative 02/13 STOOL (02/13/15 4:14 AM) [facility] URINE AND UA Nitrite Negative Negative 02/13 STOOL (02/13/15 4:14 AM) [facility] URINE AND UA RBC <1 0 - 2 02/13 STOOL [facility] URINE AND UA WBC 1 0 - 5 02/13 STOOL [facility] URINE AND UA Blood Negative Negative 02/13 STOOL (02/13/15 4:14 AM) /2014 [facility] URINE AND UA Bili Negative Negative 02/13 STOOL *NA* /2014 [facility] (02/13/15 4:14 AM) [facility] URINE AND UA Protein Negative Negative 02/13 STOOL mg/dL mg/dL [facility] URINE AND UA pH 7.0 5.0 - 8.0 02/13 STOOL [facility] URINE AND UA Spec Grav 1.019 <=1.030 02/13 STOOL [facility] URINE AND UA Turbidity Clear Clear 02/13 STOOL (02/13/15 4:14 AM) /2014 [facility] URINE AND UA Color Light Yellow Yellow 02/13 STOOL *NA* /2014 [facility] (02/13/15 4:14 AM) [facility] CHEM PANEL Phosphorus 2.1 2.5 - 4.5 02/13 [facility] CHEM PANEL Magnesium 1.8 1.8 - 2.4 02/13 [facility] CHEM PANEL eGFR 109 02/13 [facility] Comment: The [facility] eGFR is City calculated using the CKD-EPI formula. In most young, healthy individuals the eGFR will be >90 mL/min/1.73m2 . The eGFR declines with age. An eGFR of 60-89 may be normal in some populations, particularly the elderly, for whom the CKD-EPI formula has not been extensively validated. Use of the eGFR is not recommended in the following populations:< br/>
Brittany viduals with unstable creatinine concentration s, including patients and those with serious co-morbid conditions.<b r/>
Patie nts with extremes in muscle mass or diet.

The data above are obtained from the National Kidney Disease Education Program (NKDEP) which additionally recommends that when the eGFR is used in patients with extremes of body mass index for purposes of drug dosing, the eGFR should be multiplied by the estimated BMI. CHEM PANEL Sodium Lvl 140 135 - 145 02/13 [facility] CHEM PANEL Potassium 3.9 3.5 - 5.1 02/13 [facility] CHEM PANEL Creatinine 0.8 0.5 - 1.4 02/13 [facility] CHEM PANEL BUN 14 7 - 22 02/13 [facility] CHEM PANEL Chloride Lvl 105 95 - 109 02/13 [facility] CHEM PANEL ALT 35 0 - 65 02/13 [facility] CHEM PANEL Total 5.8 6.4 - 8.4 02/13 [facility] CHEM PANEL Alk Phos 76 39 - 136 02/13 [facility] CHEM PANEL Glucose Lvl 94 70 - 99 02/13 [facility] CHEM PANEL AST 23 0 - 37 02/13 [facility] CHEM PANEL Bili Total 1.0 0.2 - 1.3 02/13 [facility] CHEM PANEL Albumin Lvl 3.0 3.5 - 5.0 02/13 [facility] CHEM PANEL Calcium Lvl 8.3 8.5 - 10.5 02/13 [facility] CHEM PANEL CO2 27 24 - 32 02/13 [facility] CHEM PANEL B/C Ratio 18 6 - 25 02/13 [facility] CHEM PANEL Globulin 2.8 2.0 - 4.0 02/13 /2014 [facility] CHEM PANEL A/G Ratio 1.1 0.7 - 1.6 02/13 /2014 [facility] CHEM PANEL AGAP 11.9 10.0 - 10 MH 20.0 /2014 [facility] HEMATOLOGY MPV 9.1 7.4 - 10.4 10 /2014 [facility] HEMATOLOGY Platelet 164 133 - 450 10 /2014 [facility] HEMATOLOGY MCHC 33.5 32.0 - 10 MH 36.0 /2014 [facility] HEMATOLOGY RDW 13.6 11.5 - 10 MH 14.5 /2014 [facility] HEMATOLOGY Hct 38.4 42.0 - 02/13 MH 54.0 /2014 [facility] HEMATOLOGY MCV 95.6 80.0 - 02/13 MH 94.0 /2014 [facility] HEMATOLOGY RBC 4.01 4.70 - 02/13 MH 6. [facility] HEMATOLOGY Hgb 12.8 14.0 - 02/13 MH 18.0 [facility] HEMATOLOGY MCH 32.0 27.0 - 02/13 MH 31.0 /2014 [facility] HEMATOLOGY WBC 15.6 3.7 - 10.4 02/13 [facility] HEMATOLOGY Segs-Bands # 12.2 1.5 - 8.1 02/13 [facility] HEMATOLOGY Lymphocytes 1.7 1.0 - 5.5 02/13 [place] # /2014 [facility] HEMATOLOGY Macrocyte 1+ None Seen 02/13 [place] *ABN* /2014 [facility] (02/13/15 3:37 AM) [facility] HEMATOLOGY Monocytes # 1.5 0.0 - 0.8 02/13 /2014 [facility] HEMATOLOGY Eosinophils 0.2 0.0 - 0.5 02/13 [place] # /2014 [facility] HEMATOLOGY Lymphocytes 11.1 20.0 - 02/13 MH 40.0 /2014 [facility] HEMATOLOGY Monocytes 9.4 2.0 - 12.0 02/13 [facility] HEMATOLOGY Segs 78.1 45.0 - 10 MH 75.0 [facility] HEMATOLOGY Basophils 0.3 0.0 - 1.0 02/13 [facility] HEMATOLOGY Eosinophils 1.1 0.0 - 4.0 02/13 [facility] TOXICOLOGY Valproic 11 50 - 100 10 [place] Lvl /2014 [facility] TOXICOLOGY Valproic 27 50 - 100 08 [facility] [place] Acid Lvl /2014 [facility] CHEM PANEL Magnesium 1.7 1.8 - 2.4 12/14 [facility] CHEM PANEL Phosphorus 2.3 2.5 - 4.5 12/14 [facility] ELECTROLYT AGAP 11.5 10.0 - 12/14 [facility] ES 20.0 [facility] ELECTROLYT eGFR 115 12/14 Result [facility] Comment: The Medical eGFR is Center calculated using the CKD-EPI formula. In most young, healthy individuals the eGFR will be >90 mL/min/1.73m2 . The eGFR declines with age. An eGFR of 60-89 may be normal in some populations, particularly the elderly, for whom the CKD-EPI formula has not been extensively validated. Use of the eGFR is not recommended in the following populations:< br/>
Brittany viduals with unstable creatinine concentration s, including patients and those with serious co-morbid conditions.<b r/>
Patie nts with extremes in muscle mass or diet.

The data above are obtained from the National Kidney Disease Education Program (NKDEP) which additionally recommends that when the eGFR is used in patients with extremes of body mass index for purposes of drug dosing, the eGFR should be multiplied by the estimated BMI. ELECTROLYT Glucose Lvl 78 70 - 99 12/14 [facility] ELECTROLYT BUN 11 7 - 22 12/14 [facility] ELECTROLYT Calcium Lvl 8.4 8.5 - 10.5 12/14 [place] [facility] ELECTROLYT Chloride Lvl 110 95 - 109 12/[place] [facility] ELECTROLYT CO2 26 24 - 32 12/14 [facility] ELECTROLYT Creatinine 0.7 0.5 - 1.4 12/14 [facility] ES [facility] ELECTROLYT Sodium Lvl 143 135 - 145 12/14 [facility] ELECTROLYT Potassium 4.5 3.5 - 5.1 12/14 Result [facility] Comment: Medical Specimen Center Slightly Hemolyzed. HEMATOLOGY Lymphocytes 2.5 1.0 - 5.5 12/14 [place] # /2014 [facility] HEMATOLOGY Basophils # 0.1 0.0 - 0.2 12/14 [place] [facility] HEMATOLOGY Eosinophils 0.3 0.0 - 0.5 12/14 [place] # /2014 [facility] HEMATOLOGY Monocytes # 0.6 0.0 - 0.8 12/14 [facility] HEMATOLOGY Monocytes 9.0 2.0 - 12.0 12/14 [facility] HEMATOLOGY Basophils 1.0 0.0 - 1.0 12/14 [facility] HEMATOLOGY Segs-Bands # 2.7 1.5 - 8.1 12/14 as [facility] HEMATOLOGY Eosinophils 5.0 0.0 - 4.0 12/14 [facility] HEMATOLOGY Segs 44.3 45.0 - 12/14 [place] 75.0 [facility] HEMATOLOGY Lymphocytes 40.7 20.0 - 12/14 40.0 [facility] HEMATOLOGY Hct 39.9 42.0 - 12/14 54.0 [facility] HEMATOLOGY Hgb 13.2 14.0 - 12/14 18.0 [facility] HEMATOLOGY RBC 4.17 4.70 - 12/14 [place] 6.10 [facility] HEMATOLOGY WBC 6.1 3.7 - 10.4 12/14 [facility] HEMATOLOGY MCHC 32.9 32.0 - 12/14 36.0 [facility] HEMATOLOGY RDW 13.2 11.5 - 12/14 14.5 [facility] HEMATOLOGY MCH 31.6 27.0 - 12/14 31.0 [facility] HEMATOLOGY MCV 95.9 80.0 - 12/14 94.0 [facility] HEMATOLOGY Platelet 170 133 - 450 12/14 [facility] HEMATOLOGY MPV 10.0 7.4 - 10.4 12/14 [facility] CHEM PANEL eGFR 104 12/13 Result Comment: The Medical eGFR is Center calculated using the CKD-EPI formula. In most young, healthy individuals the eGFR will be >90 mL/min/1.73m2 . The eGFR declines with age. An eGFR of 60-89 may be normal in some populations, particularly the elderly, for whom the CKD-EPI formula has not been extensively validated. Use of the eGFR is not recommended in the following populations:< br/>
Brittany viduals with unstable creatinine concentration s, including patients and those with serious co-morbid conditions.<b r/>
Patie nts with extremes in muscle mass or diet.

The data above are obtained from the National Kidney Disease Education Program (NKDEP) which additionally recommends that when the eGFR is used in patients with extremes of body mass index for purposes of drug dosing, the eGFR should be multiplied by the estimated BMI. CHEM PANEL Calcium Lvl 8.0 8.5 - 10.5 12/13 [facility] CHEM PANEL CO2 26 24 - 32 12/13 2014 [facility] CHEM PANEL Chloride Lvl 110 95 - 109 12/13 [facility] CHEM PANEL Potassium 4.1 3.5 - 5.1 12/13 [facility] CHEM PANEL Sodium Lvl 143 135 - 145 12/13 [facility] CHEM PANEL Glucose Lvl 86 70 - 99 12/13 [facility] CHEM PANEL BUN 16 7 - 22 12/13 [facility] CHEM PANEL Creatinine 0.9 0.5 - 1.4 12/13 [facility] CHEM PANEL AGAP 11.1 10.0 - 12/13 20.0 [facility] CHEM PANEL Phosphorus 2.9 2.5 - 4.5 12/13 [facility] CHEM PANEL Magnesium 1.9 1.8 - 2.4 12/13 [facility] HEMATOLOGY Segs 50.9 45.0 - 12/13 [place] 75.0 [facility] HEMATOLOGY Lymphocytes 34.7 20.0 - 12/13 [place] 40.0 [facility] HEMATOLOGY Eosinophils 4.8 0.0 - 4.0 12/13 [facility] HEMATOLOGY Segs-Bands # 3.4 1.5 - 8.1 12/13 [facility] HEMATOLOGY Monocytes 8.7 2.0 - 12.0 12/13 [facility] HEMATOLOGY Basophils 0.9 0.0 - 1.0 12/13 [facility] HEMATOLOGY Lymphocytes 2.3 1.0 - 5.5 12/13 s [facility] HEMATOLOGY Eosinophils 0.3 0.0 - 0.5 12/13 [place] # /2014 [facility] HEMATOLOGY Monocytes # 0.6 0.0 - 0.8 12/13 [place] /2014 [facility] HEMATOLOGY Basophils # 0.1 0.0 - 0.2 12/13 s /2014 [facility] HEMATOLOGY WBC 6.7 3.7 - 10.4 12/13 /2014 [facility] HEMATOLOGY RBC 4.01 4.70 - 12/13 [place] 6.10 /2014 [facility] HEMATOLOGY Hgb 12.7 14.0 - 12/13 [place] 18.0 /2014 [facility] HEMATOLOGY Hct 38.4 42.0 - 12/13 [place] 54.0 /2014 [facility] HEMATOLOGY MCV 96.0 80.0 - 12/13 [place] 94.0 /2014 [facility] HEMATOLOGY MCH 31.8 27.0 - 12/13 [place] 31.0 [facility] HEMATOLOGY MCHC 33.2 32.0 - 12/13 [place] 36.0 /2014 [facility] HEMATOLOGY RDW 12.8 11.5 - 12/13 [place] 14.5 /2014 [facility] HEMATOLOGY MPV 9.7 7.4 - 10.4 12/13 [facility] HEMATOLOGY Platelet 157 133 - 450 12/13 [facility] PARATHYROI Ca Norm WB 1.08 1.05 - 12/13 [facility] D PROFILE 1. [facility] PARATHYROI Ca Ion WB 1.12 1.05 - 12/13 [facility] D PROFILE 1. [facility] IMMUNOLOGY HIV 1/2 Ab Negative Negative 12/12 [facility] *NA* /2014 Medical (12/12/14 5:07 PM) Center BACTERIAL MRSA by PCR Negative 12/12 [facility] - SEROLOGY (12/12/14 10:14 AM) /2014 [facility] DRUG U Methadone Negative Negative 12/12 [facility] SCREEN Scr *NA* Medical (12/12/14 10:14 AM) Cente r DRUG U Propoxyph Negative Negative 12/12 [facility] SCREEN Scr *NA* Medical (12/12/14 10:14 AM) Cente r DRUG UDS Note See Note 12/12 [place] SCREEN (12/12/14 10:14 AM) /2014 Medic al Center DRUG U Phencyc Negative Negative 12/12 [facility] SCREEN Scr *NA* Medical (12/12/14 10:14 AM) Cente r DRUG U Cannab Scr Negative Negative 12/12 [place] SCREEN *NA* Medical (12/12/14 10:14 AM) Cente r DRUG U Opiate Scr Positive Negative 12/12 [place] SCREEN *ABN* Medical (12/12/14 10:14 AM) Cente r DRUG U Cocaine Positive Negative 12/12 [facility] SCREEN Scr *ABN* Medical (12/12/14 10:14 AM) Cente r DRUG U Shi Scr Negative Negative 12/12 [facility] SCREEN *NA* Medical (12/12/14 10:14 AM) Cente r DRUG U Benzodia Positive Negative 12/12 [facility] SCREEN Scr *ABN* Medical (12/12/14 10:14 AM) Cente r DRUG U Amph Scr Positive Negative 12/12 [facility] SCREEN *ABN* Medical (12/12/14 10:14 AM) Cente r URINE AND UA <=1.0 0.1 - 1.0 12/12 [facility] Urobilinogen mg/dL /2014 [facility] URINE AND UA Ketones TR 12/12 [facility] URINE AND UA Mucus Few /LPF None Seen 12/12 [facility] STOOL /LPF [facility] URINE AND UA RBC 1 0 - 2 12/12 [facility] URINE AND UA WBC 17 0 - 5 12/12 [facility] URINE AND UA Sq Epi Occasional Few /LPF 12/12 [facility] /LPF /2014 [facility] URINE AND UA Glucose Negative Negative 12/12 [facility] mg/dL mg/dL [facility] URINE AND UA Protein 20 mg/dL Negative 12/12 [facility] STOOL mg/dL [facility] URINE AND UA Leuk Est Small Negative 12/12 [facility] STOOL *ABN* /2014 Medical (12/12/14 10:14 AM) Cente r URINE AND UA Nitrite Negative Negative 12/12 [facility] (12/12/14 10:14 AM) Medic al Center URINE AND UA Blood Negative Negative 12/12 [facility] (12/12/14 10:14 AM) /2014 Medic al Center URINE AND UA Bili Negative Negative 12/12 [facility] STOOL *NA* Medical (8/10/15 10:14 AM) Cente r URINE AND UA Turbidity Clear Clear 12/12 [facility] STOOL (12/12/14 10:14 AM) /2014 [facility] URINE AND UA Color Yellow Yellow 12/12 [facility] STOOL *NA* /2014 Medical (12/12/14 10:14 AM) Cente r URINE AND UA pH 7.0 5.0 - 8.0 12/12 [facility] STOOL [address] URINE AND UA Spec Grav 1.023 <=1.030 12/12 [facility] STOOL /2014 [facility] CARDIAC Total CK 106 12 - 191 12/12 [facility] ENZYMES /2014 [facility] CARDIAC CK MB Index 1.5 0.0 - 2.5 12/12 [facility] ENZYMES /2014 [facility] CARDIAC CK MB 1.6 0.5 - 3.6 12/12 [facility] ENZYMES 2014 [facility] CHEM PANEL Phosphorus 2.3 2.5 - 4.5 12/12 2014 [facility] CHEM PANEL Bili Direct 0.1 0.0 - 0.3 12/12 [facility] CHEM PANEL AST 21 0 - 37 12/12 [facility] CHEM PANEL ALT 27 0 - 65 12/12 2014 [facility] CHEM PANEL Total 6.0 6.4 - 8.4 12/12 [facility] Protein [facility] CHEM PANEL Globulin 2.9 2.0 - 4.0 12/12 2014 [facility] CHEM PANEL Albumin Lvl 3.1 3.5 - 5.0 12/12 [facility] CHEM PANEL A/G Ratio 1.1 0.7 - 1.6 12/[address] CHEM PANEL Alk Phos 64 39 - 136 12/12 [facility] CHEM PANEL Bili 0.1 0.0 - 1.0 12/12 [facility] Indirect /2014 [facility] CHEM PANEL Bili Total 0.2 0.2 - 1.3 12/12 [facility] CHEM PANEL Magnesium 2.1 1.8 - 2.4 12/12 [facility] Lvl /2014 [facility] CHEM PANEL eGFR 104 12/12 [facility] Comment: The Medical eGFR is Center calculated using the CKD-EPI formula. In most young, healthy individuals the eGFR will be >90 mL/min/1.73m2 . The eGFR declines with age. An eGFR of 60-89 may be normal in some populations, particularly the elderly, for whom the CKD-EPI formula has not been extensively validated. Use of the eGFR is not recommended in the following populations:< br/>
Brittany viduals with unstable creatinine concentration s, including patients and those with serious co-morbid conditions.<b r/>
Patie nts with extremes in muscle mass or diet.

The data above are obtained from the National Kidney Disease Education Program (NKDEP) which additionally recommends that when the eGFR is used in patients with extremes of body mass index for purposes of drug dosing, the eGFR should be multiplied by the estimated BMI. CHEM PANEL Chloride Lvl 109 95 - 109 12/12 [facility] CHEM PANEL Calcium Lvl 8.1 8.5 - 10.5 12/12 [facility] CHEM PANEL CO2 26 24 - 32 12/12 [facility] CHEM PANEL Sodium Lvl 141 135 - 145 12/12 [facility] CHEM PANEL Potassium 3.9 3.5 - 5.1 12/12 [facility] CHEM PANEL Creatinine 0.9 0.5 - 1.4 12/12 [facility] CHEM PANEL BUN 15 7 - 22 12/12 [facility] CHEM PANEL Glucose Lvl 88 70 - 99 12/12 [facility] CHEM PANEL AGAP 9.9 10.0 - 08 20.0 [facility] HEMATOLOGY INR 0.98 0.85 - 12/12 [place] 1.17 /2014 [facility] HEMATOLOGY PT 13.0 12.0 - 08 [place] 14.7 [facility] HEMATOLOGY PTT 28.4 22.9 - 08 [place] 35.8 [facility] HEMATOLOGY MCHC 33.1 32.0 - 08 [place] 36.0 [facility] HEMATOLOGY RDW 13.0 11.5 - 12/12 14.5 [facility] HEMATOLOGY MPV 9.0 7.4 - 10.4 12/12 [facility] HEMATOLOGY Platelet 161 133 - 450 12/12 [facility] HEMATOLOGY Hgb 12.5 14.0 - 08 [place] 18.0 [facility] HEMATOLOGY MCH 32.1 27.0 - 08 [place] 31.0 /2014 [facility] [place] HEMATOLOGY MCV 96.7 80.0 - 08 [place] 94.0 /2014 [facility] [place] HEMATOLOGY Hct 37.8 42.0 - 08 [place] 54.0 /2014 [facility] HEMATOLOGY WBC 8.9 3.7 - 10.4 08 [facility] HEMATOLOGY RBC 3.91 4.70 - 12/12 [place] 6.10 [facility] HEMATOLOGY Basophils 0.5 0.0 - 1.0 12/12 [facility] HEMATOLOGY Segs-Bands # 5.2 1.5 - 8.1 12/12 [place] as /2014 [facility] HEMATOLOGY Lymphocytes 2.5 1.0 - 5.5 12/12 [place] # /2014 [facility] HEMATOLOGY Eosinophils 3.8 0.0 - 4.0 12/12 [place] /2014 [facility] HEMATOLOGY Segs 58.0 45.0 - 12/12 [place] 75.0 /2014 [facility] HEMATOLOGY Eosinophils 0.3 0.0 - 0.5 12/12 [place] # /2014 [facility] HEMATOLOGY Monocytes # 0.9 0.0 - 0.8 12/12 [place] /2014 [facility] HEMATOLOGY Lymphocytes 27.9 20.0 - 08 [place] 40.0 [facility] HEMATOLOGY Monocytes 9.8 2.0 - 12.0 12/12 [facility] PARATHYROI Ca Norm WB 1.07 1.05 - 12/12 [place] D PROFILE 1. [facility] PARATHYROI Ca Ion WB 1.05 1.05 - 12/12 [place] D PROFILE 1. [facility] TOXICOLOGY Etoh (%) <0.003 12/12 [facility] TOXICOLOGY Ethanol Lvl <3 12/12 [facility] CHEM PANEL A/G Ratio 1.1 0.7 - 1.6 12/12 [facility] CHEM PANEL Globulin 2.8 2.0 - 4.0 12/12 [facility] CHEM PANEL B/C Ratio 19 6 - 25 12/12 /2014 [facility] CHEM PANEL Alk Phos 73 39 - 136 12/12 /2014 [facility] CHEM PANEL AST 20 0 - 37 12/12 [facility] CHEM PANEL Bili Total 0.2 0.2 - 1.3 / [facility] CHEM PANEL ALT 27 0 - 65 12/12 [facility] CHEM PANEL Albumin Lvl 3.2 3.5 - 5.0 12/12 [place] /2014 [facility] CHEM PANEL Total 6.0 6.4 - 8.4 12/12 [facility] Protein [facility] TOXICOLOGY Valproic <3 50 - 100 12/12 [facility] Acid Lvl /2014 [facility] ELECTROLYT AGAP 10.0 10.0 - 10/27 ES 20.0 /2014 [facility] ELECTROLYT Chloride Lvl 103 95 - 109 10/27 [facility] ELECTROLYT Potassium 4.0 3.5 - 5.1 10/27 ES Lvl /2014 [facility] ELECTROLYT Sodium Lvl 138 135 - 145 10/27 [facility] ELECTROLYT eGFR 91 10/27 <sup>1</sup>R esult [place] Comment: The eGFR is calculated using the CKD-EPI formula. In most young, healthy individuals the eGFR will be >90 mL/min/1.73m2 . The eGFR declines with age. An eGFR of 60-89 may be normal in some populations, particularly the elderly, for whom the CKD-EPI formula has not been extensively validated. Use of the eGFR is not recommended in the following populations:& lt;br/>
I ndividuals with unstable creatinine concentration s, including patients and those with serious co-morbid conditions.<b r/>
Patie nts with extremes in muscle mass or diet.

The data above are obtained from the National Kidney Disease Education Program (NKDEP) which additionally recommends that when the eGFR is used in patients with extremes of body mass index for purposes of drug dosing, the eGFR should be multiplied by the estimated BMI. ELECTROLYT Glucose Lvl 115 70 - 99 10/27 <sup>3</sup>I nterpretive [place] Data: Adult reference range values reflect the clinical guidelines
of the [place] [employer]. ELECTROLYT CO2 29 24 - 32 10/27 [facility] ELECTROLYT Calcium Lvl 8.9 8.5 - 10.5 10/27 [facility] ELECTROLYT Creatinine 1.0 0.5 - 1.4 10/27 ES Lvl /2014 [place] ELECTROLYT BUN 15 7 - 22 10/27 MH ES /2014 [place] HEMATOLOGY Segs 74.6 45.0 - 10/27 MH 75.0 /2014 [place] HEMATOLOGY Lymphocytes 1.9 1.0 - 5.5 10/27 MH # /2015 [facility] HEMATOLOGY Segs-Bands # 10.8 1.5 - 8.1 10/27 /2014 [place] HEMATOLOGY Eosinophils 1.7 0.0 - 4.0 10/27 /2014 [place] HEMATOLOGY Basophils 1.2 0.0 - 1.0 10/27 /2014 [place] HEMATOLOGY Monocytes 9.6 2.0 - 12.0 10/27 /2014 [place] HEMATOLOGY Lymphocytes 12.9 20.0 - 10/27 MH 40.0 /2014 [facility] HEMATOLOGY Basophils # 0.2 0.0 - 0.2 10/27 /2014 [place] HEMATOLOGY Eosinophils 0.2 0.0 - 0.5 10/27 MH # /2014 [facility] HEMATOLOGY Monocytes # 1.4 0.0 - 0.8 10/27 /2014 [facility] HEMATOLOGY MCV 96.2 80.0 - 10/27 MH 94.0 /2014 [facility] HEMATOLOGY MCH 32.8 27.0 - 10/27 MH 31.0 /2014 [facility] HEMATOLOGY Hct 43.9 42.0 - 10/27 MH 54.0 /2014 [facility] HEMATOLOGY MCHC 34.1 32.0 - 10/27 MH 36.0 /2014 [facility] HEMATOLOGY WBC 14.5 3.7 - 10.4 10/27 /2014 [facility] HEMATOLOGY RBC 4.57 4.70 - 10/27 MH 6.10 /2014 [facility] HEMATOLOGY Hgb 15.0 14.0 - 10/27 MH 18.0 /2014 [facility] HEMATOLOGY MPV 9.2 7.4 - 10.4 10/27 /2014 [facility] HEMATOLOGY RDW 13.3 11.5 - 10/27 MH 14.5 /2014 [facility] HEMATOLOGY Platelet 207 133 - 450 10/27 [facility] DRUG U Opiate Scr Positive Negative 10/26 SCREEN *ABN* /2014 [facility] (10/26/14 4:34 PM) DRUG U Phencyc Negative Negative 10/26 SCREEN Scr *NA* /2014 [facility] (10/26/14 4:34 PM) DRUG U Benzodia Positive Negative 10/26 SCREEN Scr *ABN* /2014 [facility] (10/26/14 4:34 PM) DRUG U Cannab Scr Negative Negative 10/26 MH SCREEN *NA* /2014 (10/26/14 4:34 PM) DRUG U Cocaine Negative Negative 10/26 MH SCREEN Scr *NA* (10/26/14 4:34 PM) DRUG UDS Note See Note 5 10/26 <sup>5</sup>I MH SCREEN (10/26/14 4:34 PM) nterpretive [place] Data: Drugs reported as positive have not been confirmed by a second
oh thod and should be used for medical purposes only. To order
con firmation, contact laboratory.<b r/>
not e: Below are cut-off concentration s for all urine drugs of
abuse performed in the laboratory. Some drugs listed in the table
may not be included in this panel.
<b r/>Descriptio n Cut-off concentration
----- ------
Am phetamine 1000 ng/mL
Bar biturates 200 ng/mL
Mukesh zodiazepines 300 ng/mL
Isabel katie metabolites 300 ng/mL
Opi ates 300 ng/mL
Phencyclidine 25 ng/mL
Pro poxyphene 300 ng/mL
Marijuana metabolites 50 ng/mL
Met hadone 300 ng/mL
Urine alcohol 20 mg/dL DRUG U Shi Scr Negative Negative 10/26 MH SCREEN *NA* /2014 (10/26/14 4:34 PM) DRUG U Amph Scr Positive Negative 10/26 MH SCREEN *ABN* /2014 (10/26/14 4:34 PM) URINE AND UA Blood Negative Negative 10/26 [facility] (10/26/14 4:34 PM) /[place] URINE AND UA 0.2 0.1 - 1.0 10/26 STO[facility] Urobilinogen /2014 URINE AND UA Bili Negative Negative 10/26 STOOL *NA* /2014 [facility] (10/26/14 4:34 PM) URINE AND UA Nitrite Negative Negative 10/26 STOOL (10/26/14 4:34 PM) [facility] ast URINE AND UA Leuk Est Negative Negative 10/26 [facility] (10/26/14 4:34 PM) [facility] Color Yellow Yellow 10/26 STOOL *NA* /2014 [facility] (10/26/14 4:34 PM) URINE AND UA Turbidity Clear Clear 10/26 [facility] (10/26/14 4:34 PM) [facility] URINE AND UA pH 6.0 5.0 - 8.0 10/26 STOOL [facility] URINE AND UA Protein Negative Negative 10/26 STOOL mg/dL mg/dL [facility] URINE AND UA Glucose Negative Negative 10/26 STOOL mg/dL mg/dL [facility] URINE AND UA Spec Grav 1.020 <=1.030 10/26 STOOL [facility] URINE AND UA Ketones Negative Negative 10/26 STOOL mg/dL mg/dL [facility] URINE AND UA WBC 0-2 /HPF None Seen 10/26 STOOL /HPF /2014 [facility] URINE AND UA RBC 0-2 /HPF 0 - 2 10/26 STOOL [facility] URINE AND UA Sq Epi Few /LPF Few /LPF 10/26 STOOL [facility] CARDIAC Total CK 155 12 - 191 10/26 ENZYMES [facility] CARDIAC CK MB 2.1 0.5 - 3.6 10/26 ENZYMES [facility] CARDIAC Troponin-I <0.02 0.00 - 10/26 ENZYMES 0.40 /2014 [facility] CARDIAC CK MB Index 1.4 0.0 - 2.5 10/26 ENZYMES [facility] CHEM PANEL eGFR 67 10/26 <sup>2</sup>R esult [facility] Comment: The eGFR is calculated using the CKD-EPI formula. In most young, healthy individuals the eGFR will be >90 mL/min/1.73m2 . The eGFR declines with age. An eGFR of 60-89 may be normal in some populations, particularly the elderly, for whom the CKD-EPI formula has not been extensively validated. Use of the eGFR is not recommended in the following populations:& lt;br/>
I ndividuals with unstable creatinine concentration s, including patients and those with serious co-morbid conditions.<b r/>
Patie nts with extremes in muscle mass or diet.

The data above are obtained from the National Kidney Disease Education Program (NKDEP) which additionally recommends that when the eGFR is used in patients with extremes of body mass index for purposes of drug dosing, the eGFR should be multiplied by the estimated BMI. CHEM PANEL AGAP 9.7 10.0 - 06 MH 20.0 /2014 [facility] CHEM PANEL B/C Ratio 17 6 - 25 10/26 [facility] CHEM PANEL AST 17 0 - 37 10/26 [facility] CHEM PANEL Total 7.3 6.4 - 8.4 10/26 MH Protein [facility] CHEM PANEL Globulin 3.8 2.0 - 4.0 10/26 [facility] CHEM PANEL A/G Ratio 0.9 0.7 - 1.6 10/26 [facility] CHEM PANEL CO2 27 24 - 32 10/26 [facility] CHEM PANEL Calcium Lvl 8.6 8.5 - 10.5 10/26 [facility] CHEM PANEL Bili Total 0.3 0.2 - 1.3 10/26 [facility] CHEM PANEL Chloride Lvl 104 95 - 109 10/26 [facility] CHEM PANEL Glucose Lvl 103 70 - 99 10/26 <sup>4</sup>I nterpretive [facility] Data: Adult reference range values reflect the clinical guidelines
of the [place] [employer]. CHEM PANEL Alk Phos 100 39 - 136 10/26 [facility] CHEM PANEL BUN 22 7 - 22 10/26 [facility] CHEM PANEL Creatinine 1.3 0.5 - 1.4 10/26 MH Lvl [facility] CHEM PANEL Sodium Lvl 137 135 - 145 10/26 [facility] CHEM PANEL Potassium 3.7 3.5 - 5.1 10/26 Lvl [facility] CHEM PANEL ALT 30 0 - 65 10/26 [facility] CHEM PANEL Albumin Lvl 3.5 3.5 - 5.0 10/26 [facility] HEMATOLOGY INR 0.94 0.85 - 10/26 <sup>8</sup>I MH 1. nterpretive [facility] Data: RECOMMENDED RANGES FOR PROTIME INR:
2.0-3.0 for most medical and surgical thromboemboli c states.
2.5-3.5 for artificial heart valves and recurrent embolism.<br/ >
INR SHOULD BE USED ONLY FOR PATIENTS ON STABLE ANTICOAGULANT THERAPY. HEMATOLOGY PT 12.5 12.0 - 10/26 MH 14.7 /2014 [facility] HEMATOLOGY MPV 8.9 7.4 - 10.4 10/26 /2014 [facility] HEMATOLOGY Platelet 217 133 - 450 10/26 /2014 [facility] HEMATOLOGY MCH 31.4 27.0 - 10/26 MH 31.0 /2014 [facility] HEMATOLOGY RDW 13.6 11.5 - 10/26 MH 14.5 /2014 [facility] HEMATOLOGY MCHC 32.7 32.0 - 10/26 MH 36.0 /2014 [facility] HEMATOLOGY Hct 45.6 42.0 - 10/26 MH 54.0 /2014 [facility] HEMATOLOGY MCV 96.3 80.0 - 10/26 MH 94.0 /2014 [facility] HEMATOLOGY RBC 4.74 4.70 - 10/26 MH 6.10 /2014 [facility] HEMATOLOGY Hgb 14.9 14.0 - 10/26 MH 18.0 /2014 [facility] HEMATOLOGY WBC 12.5 3.7 - 10.4 10/26 /2014 [facility] HEMATOLOGY Eosinophils 0.3 0.0 - 0.5 10/26 MH # /2014 [facility] HEMATOLOGY Basophils # 0.1 0.0 - 0.2 10/26 /2014 [facility] HEMATOLOGY Monocytes # 1.3 0.0 - 0.8 10/26 /2014 [facility] HEMATOLOGY Monocytes 10.1 2.0 - 12.0 10/26 /2014 [facility] HEMATOLOGY Lymphocytes 22.5 20.0 - 10/26 MH 40.0 /2014 [facility] HEMATOLOGY Segs 64.1 45.0 - 10/26 MH 75.0 /2014 [facility] HEMATOLOGY Segs-Bands # 8.0 1.5 - 8.1 10/26 /2014 [facility] HEMATOLOGY Eosinophils 2.6 0.0 - 4.0 10/26 /2014 [facility] HEMATOLOGY Lymphocytes 2.8 1.0 - 5.5 10/26 MH # /2014 [facility] HEMATOLOGY Basophils 0.7 0.0 - 1.0 10/26 /2014 [facility] TOXICOLOGY Valproic 20 50 - 100 10/26 Acid Lvl /2014 [facility] TOXICOLOGY Etoh (%) <0.003 10/26 <sup>6</sup>I nterpretive [facility] Data: Ethanol testing results should be used for medical purposes only.
Neg ative Range: <0.003%
T oxic Range: >0.25% TOXICOLOGY Ethanol Lvl <3 10/26 <sup>7</sup>I nterpretive [facility] Data: Negative Range: <3 mg/dL
Tox ic Range: >250 mg/dL CARDIAC CK MB Index 1.3 0.0 - 2.5 07/20 [facility] ENZYMES /2014 [facility] CARDIAC CK MB 1.3 0.5 - 3.6 07/20 [facility] ENZYMES /2014 [facility] CARDIAC Troponin-I <0.02 0.00 - 07/20 [facility] ENZYMES 0.40 /2014 [facility] CARDIAC Total CK 102 12 - 191 07/20 [facility] ENZYMES /2014 [facility] CARDIAC Troponin-T <0.010 0.000 - 07/20 [facility] ENZYMES 0.100 /2014 [facility] DRUG UDS Note See Note 4 07/20 <sup>4</sup>I Giorgio as SCREEN (07/19/14 9:22 PM) nterpretive Fl dical Data: Drugs Center reported as positive have not been confirmed by a second
oh thod and should be used for medical purposes only. To order
con firmation, contact laboratory.<b r/>
not e: Below are cut-off concentration s for all urine drugs of
abuse performed in the laboratory. Some drugs listed in the table
may not be included in this panel.
<b r/>Descriptio n Cut-off concentration
----- ------
Am phetamine 1000 ng/mL
Bar biturates 200 ng/mL
Mukesh zodiazepines 300 ng/mL
Isabel katie metabolites 300 ng/mL
Opi ates 300 ng/mL
Phencyclidine 25 ng/mL
Pro poxyphene 300 ng/mL
Marijuana metabolites 50 ng/mL
Met hadone 300 ng/mL
Urine alcohol 20 mg/dL DRUG U Phencyc Negative Negative 07/20 [place] SCREEN Scr *NA* /2014 Medical (07/19/14 9:22 PM) Center DRUG U Cannab Scr Negative Negative 07/20 [place] SCREEN *NA* /2014 Medical (07/19/14 9:22 PM) Center DRUG U Opiate Scr Negative Negative 07/20 [place] SCREEN *NA* /2014 Medical (07/19/14 9:22 PM) Center DRUG U Amph Scr Positive Negative 07/20 [place] SCREEN *ABN* /2014 Medical (07/19/14 9:22 PM) Center DRUG U Benzodia Positive Negative 07/20 [facility] SCREEN Scr *ABN* /2014 Medical (07/19/14 9:22 PM) Center DRUG U Shi Scr Negative Negative 07/20 [place] SCREEN *NA* /2014 Medical (07/19/14 9:22 PM) Center DRUG U Cocaine Negative Negative 07/20 [facility] SCREEN Scr *NA* /2014 Medical (07/19/14 9:22 PM) [place] URINE AND UA Nitrite Negative Negative 07/20 [facility] STOOL (07/19/14 9:22 PM) /2014 [facility] URINE AND UA Leuk Est Negative Negative 07/20 [facility] STOOL (07/19/14 9:22 PM) /2014 [facility] URINE AND UA 0.2 0.1 - 1.0 07/20 [facility] STOOL Urobilinogen /2014 [facility] URINE AND UA Color Yellow Yellow 07/20 [facility] STOOL *NA* /2014 [facility] (07/19/14 9:22 PM) [place] URINE AND UA Spec Grav 1.042 <=1.030 07/20 [facility] STOOL /2014 [facility] URINE AND UA Turbidity Clear Clear 07/20 [facility] STOOL (07/19/14 9:22 PM) /2014 [facility] URINE AND UA pH 6.0 5.0 - 8.0 07/20 [facility] STOOL /2014 [facility] URINE AND UA Protein Negative Negative 07/20 [facility] STOOL (07/19/14 9:22 PM) /2014 [facility] URINE AND UA Ketones Negative Negative 07/20 [facility] STOOL *NA* /2014 Medical (07/19/14 9:22 PM) [place] URINE AND UA Glucose Negative Negative 07/20 [facility] STOOL (07/19/14 9:22 PM) /2014 [facility] URINE AND UA Bili Negative Negative 07/20 [facility] STOOL *NA* /2014 Medical (07/19/14 9:22 PM) Center URINE AND UA Blood Negative Negative 07/20 [facility] STOOL (07/19/14 9:22 PM) [facility] URINE AND UA Sq Epi Rare /LPF Few /LPF 07/20 [facility] STOOL /2014 [facility] URINE AND UA RBC None Seen 0 - 2 07/20 [facility] STOOL (07/19/14 9:22 PM) /2014 [facility] URINE AND UA WBC 0-2 /HPF None Seen 07/20 [facility] /HPF /2014 [facility] URINE AND UA Bacteria None Seen None Seen 07/20 [facility] STOOL (07/19/14 9:22 PM) [facility] CHEM PANEL Phosphorus 3.3 2.5 - 4.5 07/19 [facility] /2014 [facility] CHEM PANEL Magnesium 1.7 1.8 - 2.4 07/19 [facility] /2014 [facility] TOXICOLOGY Valproic 6 50 - 100 07/19 [facility] Acid l /2014 [facility] CHEM PANEL eGFR 41 07/19 <sup>1</sup>[facility] Comment: The Center eGFR is calculated using the CKD-EPI formula. In most young, healthy individuals the eGFR will be >90 mL/min/1.73m2 . The eGFR declines with age. An eGFR of 60-89 may be normal in some populations, particularly the elderly, for whom the CKD-EPI formula has not been extensively validated. Use of the eGFR is not recommended in the following populations:& lt;br/>
I ndividuals with unstable creatinine concentration s, including patients and those with serious co-morbid conditions.<b r/>
Patie nts with extremes in muscle mass or diet.

The data above are obtained from the National Kidney Disease Education Program (NKDEP) which additionally recommends that when the eGFR is used in patients with extremes of body mass index for purposes of drug dosing, the eGFR should be multiplied by the estimated BMI. CHEM PANEL POC 1.3 0.5 - 1.4 07/19 [facility] Creatinine /2014 [facility] CARDIAC CK MB Index 0.9 0.0 - 2.5 07/19 [facility] ENZYMES [facility] CARDIAC Troponin-I <0.02 0.00 - 07/19 [facility] ENZYMES 0.40 [facility] CARDIAC Total CK 141 12 - 191 07/19 [facility] ENZYMES [facility] CARDIAC CK MB 1.3 0.5 - 3.6 07/19 [facility] ENZYMES [facility] CHEM PANEL Lactic Acid 2.2 0.5 - 2.2 07/19 [place] [facility] CHEM PANEL A/G Ratio 1.1 0.7 - 1.6 07/19 [facility] CHEM PANEL AGAP 10.8 10.0 - 07/19 [place] 20.0 [facility] CHEM PANEL Globulin 3.3 2.0 - 4.0 07/19 [facility] CHEM PANEL B/C Ratio 16 6 - 25 07/19 [facility] CHEM PANEL eGFR 73 07/19 <sup>2</sup>R s [facility] Comment: The Center eGFR is calculated using the CKD-EPI formula. In most young, healthy individuals the eGFR will be >90 mL/min/1.73m2 . The eGFR declines with age. An eGFR of 60-89 may be normal in some populations, particularly the elderly, for whom the CKD-EPI formula has not been extensively validated. Use of the eGFR is not recommended in the following populations:& lt;br/>
I ndividuals with unstable creatinine concentration s, including patients and those with serious co-morbid conditions.<b r/>
Patie nts with extremes in muscle mass or diet.

The data above are obtained from the National Kidney Disease Education Program (NKDEP) which additionally recommends that when the eGFR is used in patients with extremes of body mass index for purposes of drug dosing, the eGFR should be multiplied by the estimated BMI. CHEM PANEL Total 6.8 6.4 - 8.4 07/19 [facility] Protein [facility] CHEM PANEL ALT 38 0 - 65 07/19 [facility] CHEM PANEL Albumin Lvl 3.5 3.5 - 5.0 07/19 [place] [facility] CHEM PANEL AST 27 0 - 37 07/19 [facility] CHEM PANEL Bili Total 0.3 0.2 - 1.3 07/19 [facility] CHEM PANEL Alk Phos 83 39 - 136 07/19 [facility] CHEM PANEL Chloride Lvl 107 95 - 109 07/19 s [facility] CHEM PANEL CO2 25 24 - 32 07/19 [facility] CHEM PANEL Calcium Lvl 8.3 8.5 - 10.5 07/19 as [facility] CHEM PANEL Creatinine 1.2 0.5 - 1.4 07/19 [place] Lvl /2014 [facility] CHEM PANEL BUN 19 7 - 22 07/19 [facility] CHEM PANEL Glucose Lvl 82 70 - 99 07/19 <sup>3</sup>I nterpretive Medical Data: Adult Center reference range values reflect the clinical guidelines
of the [place]. CHEM PANEL Sodium Lvl 139 135 - 145 07/19 [facility] CHEM PANEL Potassium 3.8 3.5 - 5.1 07/19 [place] Lvl /2014 [facility] HEMATOLOGY Segs-Bands # 5.0 1.5 - 8.1 07/19 as /2014 [facility] HEMATOLOGY Basophils 0.0 0.0 - 1.0 07/19 [facility] HEMATOLOGY Lymphocytes 2.7 1.0 - 5.5 07/[place] # /2014 [facility] Center HEMATOLOGY Monocytes 11.2 2.0 - 12.0 07/19 [facility] HEMATOLOGY Lymphocytes 29.5 20.0 - 07/19 [place] 40.0 /2014 [facility] HEMATOLOGY Eosinophils 3.5 0.0 - 4.0 07/[place] /2014 [facility] HEMATOLOGY Segs 55.8 45.0 - 07/19 [place] 75.0 /2014 [facility] HEMATOLOGY Basophils # 0.0 0.0 - 0.2 07/19 s /2014 [facility] HEMATOLOGY Eosinophils 0.3 0.0 - 0.5 07/19 [place] # /2014 [facility] Center HEMATOLOGY Monocytes # 1.0 0.0 - 0.8 07/[place] /2014 [facility] HEMATOLOGY PT 12.5 12.0 - 07/19 [place] 14.7 [facility] HEMATOLOGY INR 0.94 0.85 - 07/19 <sup>5</sup>I Addie s 1. nterpretive Medical Data: Center RECOMMENDED RANGES FOR PROTIME INR:
2.0-3.0 for most medical and surgical thromboemboli c states.
2.5-3.5 for artificial heart valves and recurrent embolism.<br/ >
INR SHOULD BE USED ONLY FOR PATIENTS ON STABLE ANTICOAGULANT THERAPY. HEMATOLOGY PTT 26.6 22.9 - 07/19 <sup>6</sup>I Addie s 35.8 nterpretive Medical Data: Heparin Center Therapeutic Range: 57 - 92 [place] HEMATOLOGY RDW 12.7 11.5 - 07/19 14.5 [facility] HEMATOLOGY Platelet 172 133 - 450 07/19 [facility] HEMATOLOGY MCHC 33.9 32.0 - 07/19 36.0 [facility] HEMATOLOGY MCH 32.3 27.0 - 07/19 [place] 31.0 [facility] HEMATOLOGY MCV 95.1 80.0 - 07/19 [place] 94.0 [facility] HEMATOLOGY Hct 42.4 42.0 - 07/19 54.0 [facility] HEMATOLOGY MPV 9.7 7.4 - 10.4 07/19 [facility] HEMATOLOGY WBC 9.0 3.7 - 10.4 07/19 [facility] HEMATOLOGY RBC 4.46 4.70 - 07/19 6.10 [facility] HEMATOLOGY Hgb 14.4 14.0 - 07/19 18.0 [facility] CHEMISTRY AGAP 13.8 10.0 - 07/11 Normal 20.0 [facility] CHEMISTRY Globulin 3.5 2.0 - 4.0 07/11 Normal [facility] CHEMISTRY B/C Ratio 15 6 - 25 07/11 Normal [facility] CHEMISTRY A/G Ratio 1.1 0.7 - 1.6 07/11 Normal [facility] CHEMISTRY BUN 12 7 - 22 07/11 Normal [facility] CHEMISTRY Creatinine 0.8 0.5 - 1.4 07/11 Normal [facility] Lvl Medical Center CHEMISTRY Glucose Lvl 81 07/11 NA <sup>4</sup>I T ex nterpretive Medical Data: Center Reference Ranges : 0 - 7 days : 41 - 90 mg/dL 7 days - 150 yrs : 70 - 99 mg/dL (fasting), based on the clinical recommendatio ns of the [employer]. CHEMISTRY Total 7.4 6.4 - 8.4 07/11 Normal [facility] CHEMISTRY Bili Total 0.3 0.2 - 1.3 07/11 Normal [facility] CHEMISTRY Calcium Lvl 8.8 8.5 - 10.5 07/11 [place] [facility] CHEMISTRY AST 22 0 - 37 07/11 Normal [facility] CHEMISTRY Sodium Lvl 142 135 - 145 07/11 Normal [facility] CHEMISTRY Potassium 3.8 3.5 - 5.1 07/11 Normal [facility] CHEMISTRY CO2 24 24 - 32 07/11 Normal [facility] CHEMISTRY Chloride Lvl 108 95 - 109 07/11 Normal [facility] CHEMISTRY Albumin Lvl 3.9 3.5 - 5.0 07/11 Normal [facility] CHEMISTRY Alk Phos 79 39 - 136 07/11 Normal Medical [facility] CHEMISTRY ALT 41 0 - 65 07/11 Normal [facility] Center CHEMISTRY Magnesium 1.9 1.8 - 2.4 07/11 Normal [facility] CHEMISTRY Phosphorus 3.6 2.5 - 4.5 07/11 Normal Medical Center HEMATOLOGY Hgb 15.1 14.0 - 07/11 Normal [place] 18.0 Medical Center HEMATOLOGY RBC 4.49 4.70 - 07/11 LOW [place] 6.10 /2011 Medical Center HEMATOLOGY WBC 10.7 3.7 - 10.4 07/11 HI [facility] HEMATOLOGY MCH 33.7 27.0 - 03 [facility] [place] 31.0 Medical Center HEMATOLOGY MCV 97.3 80.0 - 07/11 [facility] [place] 94.0 /2011 Medical Center HEMATOLOGY RDW 13.5 11.5 - 03 Normal [place] 14.5 Medical Center HEMATOLOGY Hct 43.8 42.0 - 07/11 Normal [place] 54.0 Medical Center HEMATOLOGY MCHC 34.6 32.0 - 03 Normal [place] 36.0 /2011 Medical [place] HEMATOLOGY MPV 9.1 7.4 - 10.4 03 Normal [facility] HEMATOLOGY Platelet 226 133 - 450 03/ Normal [facility] HEMATOLOGY Lymphocytes 2.6 1.0 - 5.5 03/ Normal [place] # /2011 [facility] HEMATOLOGY Eosinophils 0.3 0.0 - 0.5 03/ [place] # [facility] HEMATOLOGY Segs-Bands # 6.7 1.5 - 8.1 03 Normal [place] [facility] HEMATOLOGY Monocytes # 1.1 0.0 - 0.8 07/11 [place] [facility] HEMATOLOGY Basophils # 0.0 0.0 - 0.2 07/11 Normal [facility] HEMATOLOGY Lymphocytes 24.0 20.0 - 07/11 Normal [place] 40.0 Medical [place] HEMATOLOGY Segs 62.5 45.0 - 03 Normal [place] 75.0 Medical [place] HEMATOLOGY Monocytes 10.5 2.0 - 12.0 03/ Normal [facility] HEMATOLOGY Basophils 0.4 0.0 - 1.0 03/ Normal [facility] HEMATOLOGY Eosinophils 2.6 0.0 - 4.0 07/11 Normal [facility] CHEMISTRY Phosphorus 3.4 2.5 - 4.5 07/10 Normal [facility] CHEMISTRY Magnesium 1.9 1.8 - 2.4 07/10 Normal [facility] Lvl [facility] CHEMISTRY A/G Ratio 0.9 0.7 - 1.6 07/10 Normal [facility] CHEMISTRY B/C Ratio 60 6 - 25 07/10 [facility] CHEMISTRY Globulin 3.9 2.0 - 4.0 03/ Normal [facility] CHEMISTRY AGAP 16.3 10.0 - 07/10 Normal [place] 20.0 [facility] CHEMISTRY Glucose Lvl 102 07/10 NA <sup>5</sup>I T ex nterpretive Medical Data: Center Reference Ranges : 0 - 7 days : 41 - 90 mg/dL 7 days - 150 yrs : 70 - 99 mg/dL (fasting), based on the clinical recommendatio ns of the [place]. CHEMISTRY Creatinine 0.2 0.5 - 1.4 03/08 LOW [place] Lvl Medical Center CHEMISTRY BUN 12 7 - 22 / Normal Medical Center CHEMISTRY Albumin Lvl 3.5 3.5 - 5.0 03/ Normal [facility] Center CHEMISTRY Alk Phos 84 39 - 136 03/ Normal [place] [facility] Center CHEMISTRY ALT 39 0 - 65 03/ Normal Medical Center CHEMISTRY Total 7.4 6.4 - 8.4 / Normal [facility] Protein Medical Center CHEMISTRY AST 56 0 - 37 03/08 [facility] CHEMISTRY Bili Total 0.6 0.2 - 1.3 / Normal [facility] Center CHEMISTRY CO2 23 24 - 32 03/ LOW [facility] Center CHEMISTRY Calcium Lvl 8.8 8.5 - 10.5 07/10 [place] [facility] CHEMISTRY Sodium Lvl 140 135 - 145 03/ Normal [facility] Center CHEMISTRY Potassium 5.3 3.5 - 5.1 / [place] <sup>3</sup>R [place] Medical Comment: Center Specimen Slightly Hemolyzed. CHEMISTRY Chloride Lvl 106 95 - 109 03/ Normal [facility] HEMATOLOGY Basophils # 0.1 0.0 - 0.2 03/ [place] [facility] Center HEMATOLOGY Lymphocytes 23.5 20.0 - 03/08 Normal [place] 40.0 /2011 Medical Center HEMATOLOGY Segs 63.3 45.0 - 03/08 Normal [place] 75.0 /2011 Medical Center HEMATOLOGY Monocytes 9.8 2.0 - 12.0 03/08 Normal Medical [facility] HEMATOLOGY Eosinophils 0.3 0.0 - 0.5 03/08 [place] # /2011 [facility] HEMATOLOGY Monocytes # 1.0 0.0 - 0.8 03/08 [facility] [place] [facility] [place] HEMATOLOGY Lymphocytes 2.3 1.0 - 5.5 03/ [place] # /2011 [facility] HEMATOLOGY Segs-Bands # 6.1 1.5 - 8.1 03/ Normal [place] as Medical Center HEMATOLOGY Basophils 0.7 0.0 - 1.0 03/08 Normal [facility] HEMATOLOGY Eosinophils 2.7 0.0 - 4.0 07/10 [place] /2011 Medical [place] HEMATOLOGY MCH 34.5 27.0 - 07/10 HI [place] 31.0 /2011 Medical [place] HEMATOLOGY MCHC 35.3 32.0 - 07/10 Normal [place] 36.0 /2011 [facility] HEMATOLOGY MPV 9.0 7.4 - 10.4 07/10 Normal [facility] HEMATOLOGY Platelet 237 133 - 450 07/10 Normal [facility] HEMATOLOGY RDW 13.4 11.5 - 07/10 Normal [place] 14.5 /2011 [facility] HEMATOLOGY Hct 40.9 42.0 - 07/10 LOW [place] 54.0 /2011 [facility] HEMATOLOGY MCV 97.8 80.0 - 07/10 HI [place] 94.0 /2011 [facility] HEMATOLOGY RBC 4.19 4.70 - 07/10 LOW [place] 6.10 /2011 [facility] HEMATOLOGY Hgb 14.4 14.0 - 07/10 Normal [place] 18.0 /2011 [facility] HEMATOLOGY WBC 9.7 3.7 - 10.4 07/10 Normal [facility] IMMUNOLOGY HIV 1/2 Ab Negative Negative 07/10 NA [facility] *NA* /2011 Medical (07/11/2011 04:11:00) Ce nter CHEMISTRY UDS Note See Note 7 07/09 Normal <sup>7</sup>I [place] (07/10/2011 07:02:00) /2011 nterpretiv e Medical Data: Drugs Center reported as positive have not been confirmed by a second method and should be used for medical purposes only. To order confirmation, contact laboratory. note: Below are cut-off concentration s for all urine drugs of abuse performed in the laboratory. Some drugs listed in the table may not be included in this panel. Description Cut-off concentration Amphetamine 1000 ng/mL Barbiturates 200 ng/mL Benzodiazepin es 300 ng/mL Cocaine metabolites 300 ng/mL Opiates 300 ng/mL Phencyclidine 25 ng/mL Propoxyphene 300 ng/mL Marijuana metabolites 50 ng/mL Methadone 300 ng/mL Urine alcohol 20 mg/dL CHEMISTRY U Methadone Negative Negative 07/09 NA [facility] Scr *NA* Medical (07/10/2011 07:02:00) Ce nter CHEMISTRY U Propoxyph Negative Negative 07/09 NA [facility] Scr *NA* Medical (07/10/2011 07:02:00) Ce nter CHEMISTRY U Phencyc Negative Negative 07/09 NA [facility] Scr *NA* Medical (07/10/2011 07:02:00) Ce nter CHEMISTRY U Opiate Scr Positive Negative 07/09 ABN [facility] s *ABN* Medical (07/10/2011 07:02:00) Ce nter CHEMISTRY U Cannab Scr Negative Negative 07/09 [facility] s *NA Medical (07/10/2011 07:02:00) Ce nter CHEMISTRY U Cocaine Negative Negative 07/09 NA [facility] Scr *NA* Medical (07/10/2011 07:02:00) Ce nter CHEMISTRY U Benzodia Positive Negative 07/09 ABN [facility] Scr *ABN* Medical (07/10/2011 07:02:00) Ce nter CHEMISTRY U Shi Scr Negative Negative 07/09 [facility] [place] *NA* Medical (07/10/2011 07:02:00) Ce nter CHEMISTRY U Amph Scr Negative Negative 07/09 [facility] [place] *NA* Medical (07/10/2011 07:02:00) Ce nter FUNGAL - U Histo Ag None Detected 2 07/09 Normal <sup>2</sup> I [facility] SEROLOGY (07/10/2011 07:02:00) nterpreti ve Medical Data: Result Center Interpretatio n Comment ------ - ------- None Detected Negative Antigen not detected. <0.6-3.9 ng/mL Positive, Low Results reported as <0.6 ng/mL are positive but below the lowest calibrator and cannot be quantified. 4.0-19.9 ng/mL Positive, Mod Quantitation is most accurate in this area of the calibration curve. 20.0->39 ng/mL Positive, High Results >39 ng/mL are above the highest calibrator and cannot be quantified. Suggest monitoring antigemia if antigenuria >39 ng/mL. Confirmation by submitting a second sample is always recommended for all initial positive results. Test performed by [facility]. FUNGAL - U Hist Ag negative 07/09 NA [facility] SEROLOGY Intrp [facility] URINALYSIS UA 0.1 - 1.0 07/09 NA [facility] Urobilinogen /2011 [facility] URINALYSIS Micro? Not Indicated 07/09 NA [facility] (07/10/2011 07:02:00) Ce nter URINALYSIS UA Spec Grav 1.009 <=1.030 07/09 Normal [facility] URINALYSIS UA Protein Negative mg/dL Negative 07/09 Normal [facility] (07/10/2011 07:02:00) Fl dicwy Center URINALYSIS UA pH 6.5 5.0 - 8.0 07/09 Normal [facility] URINALYSIS UA Glucose Negative mg/dL Negative 07/09 NA [facility] * [facility] (07/10/2011 07:02:00) Ce nter URINALYSIS UA Blood Negative Negative 07/09 Normal [facility] (07/10/2011 07:02:00) Fl dical Center URINALYSIS UA Leuk Est Negative Negative 07/09 Normal [place] [facility] (07/10/2011 07:02:00) Fl dical Center URINALYSIS UA Nitrite Negative Negative 07/09 Normal [facility] (07/10/2011 07:02:00) Fl dical Center URINALYSIS UA Ketones Negative mg/dL Negative 07/09 NA [facility] * [facility] (07/10/2011 07:02:00) Ce nter URINALYSIS UA Bili Negative Negative 07/09 NA [facility] * Medical (07/10/2011 07:02:00) Ce nter URINALYSIS UA Turbidity Clear Clear 07/09 Normal [facility] (07/10/2011 07:02:00) Fl dical Center URINALYSIS UA Color Light Yellow Yellow 07/09 NA [facility] * Medical (07/10/2011 07:02:00) Ce nter CHEMISTRY Lactic Acid 1.4 0.5 - 2.2 07/09 Normal [facility] Center CHEMISTRY TSH 1.260 0.360 - 03 Normal [place] 3.740 /2011 Medical Center CHEMISTRY Magnesium 2.0 1.8 - 2.4 07/09 Normal [facility] Lvl Medical Center CHEMISTRY Phosphorus 3.0 2.5 - 4.5 07/09 Normal Medical [facility] CHEMISTRY A/G Ratio 1.2 0.7 - 1.6 07/09 Normal Medical [facility] CHEMISTRY AGAP 15.2 10.0 - 07/09 Normal [place] 20.0 /2011 Medical Center CHEMISTRY B/C Ratio 12 6 - 25 07/09 Normal [facility] CHEMISTRY Globulin 3.2 2.0 - 4.0 07/09 Normal [facility] CHEMISTRY ALT 37 0 - 65 07/09 Normal [facility] CHEMISTRY CO2 27 24 - 32 07/09 Normal [facility] CHEMISTRY Calcium Lvl 8.6 8.5 - 10.5 07/09 [place] [facility] [place] CHEMISTRY AST 22 0 - 37 07/09 [facility] Total 6.9 6.4 - 8.4 07/09 [facility] CHEMISTRY Chloride Lvl 105 95 - 109 07/09 [facility] CHEMI[facility]Y Potassium 4.2 3.5 - 5.1 07/09 [facility] CHEMISTRY Bili Total 0.3 0.2 - 1.3 07/09 [facility] CHEMISTRY Albumin Lvl 3.7 3.5 - 5.0 07/09 [facility] CHEMISTRY BUN 11 7 - 22 07/09 [facility] CHEMISTRY Creatinine 0.9 0.5 - 1.4 07/09 [facility] CHEMISTRY Alk Phos 87 39 - 136 07/09 [facility] CHEMISTRY Sodium Lvl 143 135 - 145 07/09 [facility] CHEMISTRY Glucose Lvl 102 07/09 NA <sup>6</sup>I T ex nterpretive Medical Data: Center Reference Ranges : 0 - 7 days : 41 - 90 mg/dL 7 days - 150 yrs : 70 - 99 mg/dL (fasting), based on the clinical recommendatio ns of the [place]. HEMATOLOGY Eosinophils 0.4 0.0 - 0.5 07/09 [facility] [place] [facility] HEM[facility] Eosinophils 3.0 0.0 - 4.0 07/09 [facility] HEMATOLOGY Lymphocytes 2.0 1.0 - 5.5 07/09 [facility] [place] [facility] HEMATOLOGY Segs-Bands # 8.0 1.5 - 8.1 07/09 [facility] HEMATOLOGY Monocytes # 1.3 0.0 - 0.8 07/09 [facility] [place] [facility] HEMATOLOGY Macrocyte 1+ None Seen 07/09 ABN [place] *ABN* /2011 Medical (07/10/2011 03:00:00) Ce nter HEMATOLOGY Monocytes 11.0 2.0 - 12.0 07/09 [facility] HEMATOLOGY Basophils 0.3 0.0 - 1.0 07/09 [facility] HEMATOLOGY Basophils # 0.0 0.0 - 0.2 07/09 [facility] HEMATOLOGY Segs 68.9 45.0 - 07/09 Normal [place] 75.0 /2011 [facility] HEMATOLOGY Lymphocytes 16.8 20.0 - 07/09 LOW [place] 40.0 /2011 [facility] HEMATOLOGY RDW 13.4 11.5 - 07/09 [facility] [place] 14.5 [facility] HEMATOLOGY Platelet 188 133 - 450 07/09 [facility] HEMATOLOGY MPV 9.5 7.4 - 10.4 07/09 [facility] [place] HEMATOLOGY MCH 34.2 27.0 - 07/09 [facility] [place] 31.0 Medical Center HEMATOLOGY MCHC 34.0 32.0 - 07/09 Normal [place] 36.0 /2011 [facility] Center HEMATOLOGY MCV 100.5 80.0 - 07/09 [facility] [place] 94.0 /2011 [facility] HEMATOLOGY Hct 39.9 42.0 - 07/09 LOW [place] 54.0 /2011 [facility] HEMATOLOGY Hgb 13.6 14.0 - 07/09 LOW [place] 18.0 [facility] HEMATOLOGY RBC 3.97 4.70 - 07/09 LOW [place] 6.10 [facility] HEMATOLOGY WBC 11.7 3.7 - 10.4 07/09 [facility] Microbiolo Culture: 07/09 [facility] w/[facility] CHEMISTRY Bili Direct 0.1 0.0 - 0.3 07/09 Normal [facility] CHEMISTRY Bili 0.1 0.0 - 1.0 07/09 Normal [facility] Indirect [facility] CHEMISTRY LDH 313 98 - 192 07/09 HI [facility] CHEMISTRY Lactic Acid 0.7 0.5 - 2.2 07/08 Normal [facility] Lvl [facility] HEMATOLOGY Plt Morph Normal 07/08 Normal [facility] (07/09/2011 16:35:00) Fl dical [place] HEMATOLOGY RBC Morph Normal 07/08 Normal [facility]07/09/2011 16:35:00[facility]08 [facility] Blood [facility] MICRO MISC U Legion Ag Negative 1 Negative 07/08 Normal <sup>1</sup>I [facility] - SEROLOGY (07/09/2011 07:02:00) nterpre tive Medical Data: This Center kit tests for Legionella pneumophila Serogroup 1 Antigen. Pathology Reports No Data Provided for This Section Diagnostic Reports Report Value Date Source Chest Pulmonary Patient Name: ANDREW RAMIREZ. 05/24/2016 [facility] Embolism CTA : 1970; Age: 46 years y/o; Male. MR: [id number]. Ordering Physician: Viki Beasley DO. CT ANGIOGRAPHY CHEST WITH INTRAVENOUS CONTRAST: HISTORY: Shortness of breath, back pain. COMPARISON: None. FINDINGS: Computed tomograph y of the chest was performed utilizing contiguous transaxial sections from the lung apices to the upper abdomen after the intravenous administration of 100 mL of Omnipaque-30 0 and utilizing the pulmonar y emboli protocol. Coronal and sagittal reformatted images were obtained. 3-D postprocessing MIP images were created. Left apical bleb noted. Mild posterior bibasilar atelectasis noted. No infiltrate, pleural effusion or pneumothorax. There is limited evaluation of the pulmonary artery secondary to suboptimal contrast opacification. No embolus in the main or lobar branches of the pulmonary artery. Segmental and subsegmental branches are not well evaluated secon william to suboptimal contrast opacification. The heart is normal in size without evidence of pericardial effusion. There is no evidence of axillary, mediastinal or hilar lymphadenopathy. The chest wall is unremarkable. Partially imaged upper abdomen is unremarkable. IMPRESSION: Limited evaluation of the pu lmonary artery secondary to suboptimal contrast opacification. No embolus in the main or lobar branches of the pulmonary artery. Segmental and subsegmental branches are not w ell evaluated secondary to s uboptimal contrast opacification. No infiltrate, pleural effusion or pneumothorax. SL: MURIEL Spine thoracic wo Patient Name: ANDREW RAMIREZ. 05/24/2016 [facility] contrast CT : 1970; Age: 46 years y/o; Male. MR: [id number]. Ordering Physician: Viki Beasley DO. CT THORACIC SPINE WITHOUT CONTRAST. HISTORY: Back pain radiating kid chest, shortnes s of breath. COMPARISON: None. FINDINGS: Computed tomograph y of the thoracic spine was performed utilizing contiguous 2 mm transaxial sections without the administration of intravenous or myelographic contrast. Coronal and sagittal reformatted images were obtained. Thoracic vertebral bodies ar e normal in height and alignment without compression fracture or spondylolisthesis. No evidence of discitis osteomyelitis. Varying degrees of mid to lower thoracic mild to mo derate disc space narrowing noted with degenerative Schmorl's nodes and minimal to mild multilevel marginal osteophyte formation. No gross evidence of large disc herniation, clinically significant central canal or neural foraminal stenosis. Paraspinal soft tissue is unremarkable. IMPRESSION: 1. No evidence of thoracic c ompression fracture, spondylolisthesis or gross evidence of discitis osteomyelitis. 2. Degenerative changes as d escribed without gross evidence of disc herniation, clinically significant central canal or neural foraminal stenosis. SL: MURIEL Renal Stone CT Patient Name: ANDREW RAMIREZ. 05/24/2016 [facility] : 1970; Age: 46 years y/o; Male. MR: [id number]. Ordering Physician: Viki Beasley DO. PROCEDURE: CT ABDOMEN AND PELVIS WITHOUT CONTRAS T INDICATION: Abdominal and back pain, shortness o f breath. COMPARISON: None. TECHNIQUE: Helical imaging w as performed diaphragm through the symphysis with multiplanar reconstructions. IV CONTRAST: None. GI CONTRAST: None. FINDINGS: This examination is limited for the evaluation of solid organs and vascular structures due to lack of intravenous contrast. LOWER CHEST: The lung bases are clear. SOLID ORGANS: The liver, spl een, pancreas, adrenal glands and kidneys are normal. BOWEL: The bowel is normal. PERITONEUM: No free intraperitoneal fluid or air . RETROPERITONEUM: No adenopathy. The aorta is nor mal. PELVIS: No pelvic mass. The urinary bladder is n ormal. MUSCULOSKELETAL: The skeleton is intact. IMPRESSION: No acute pathology in the abdomen or pelvis. SL: MURIEL Spine lumbar wo Patient Name: ANDREW RAMIREZ. 05/24/2016 [facility] contrast CT : 1970; Age: 46 years y/o; Male. MR: [id number]. Ordering Physician: Viki Beasley DO. CT LUMBAR SPINE WITHOUT CONTRAST. HISTORY: Lumbar spine fracture and pain. COMPARISON: None. FINDINGS: Computed tomograph y of the lumbar spine was performed utilizing contiguous 2 mm transaxial sections without the administration of intravenous or myelographic contrast. Coronal and sagittal reformatted images were obtained. Lumbar vertebral bodies are normal in height without evidence of compression fracture. Minimal degenerative grade 1 retrolisthesis noted at L3-L4 and L4-L5. Minimal multilevel marginal osteophyte format ion noted. Mild to moderate L4-L5 and mild L5-S1 disc space narrowing noted. L1-L2 and L2-L3 demonstrate no disc herniation, central canal or neural foraminal stenosis. L3-L4 demonstrates minimal d egenerative grade 1 retrolisthesis, mild disc bulge, bilateral facet and ligamentum flavum hypertrophy causing mild triangular shaped central canal, mild right and at least moderate left neural foraminal stenosis. L4-L5 demonstrates minimal d egenerative grade 1 retrolisthesis, disc bulge, bilateral facet and ligamentum flavum hypertrophy causing moderate triangular shaped central canal, moderate right and marked left neural foraminal stenosis. L5-S1 demonstrates mild asym metric left greater than right disc bulge versus disc protrusion, bilateral facet and ligamentum flavum hypertrophy causing moderate right and marked left neural foraminal stenosis. Paraspinal soft tissue is unremarkable. IMPRESSION: 1. No evidence of lumbar com pression fracture. Minimal degenerative grade 1 retrolisthesis at L3-L4 and L4-L5. 2. L3-L4 through L5-S1 degen erative changes as described, worst at L4-L5 and L5-S1. SL: MURIEL Brain wo contrast MRI MRI OF THE BRAIN 01/19/2016 [facility] DATE: 01/19/2016 at 8:44 PM. Cent er COMPARISON: CT brain, CTA head and neck and CT perfusion 01/19/2016 at 6:39 PM. HISTORY: Weakness. TECHNIQUE: Multiplanar MR im aging was performed utilizing T1, T2, and diffusion weighting.. FINDINGS: There is no restri cted diffusion to indicate acute infarction. The zamarripa-white interfaces are well defined. There are no foci of signal abnormality within t he brain substance. There are no mass lesions or extra-axial collect ions. Normal vascular flow voids are noted. IMPRESSION: 1. No acute intracranial abn ormality, normal MRI of the brain. There is no acute hemorrhage or acute infarct. Brain Stroke wo CT HEAD WITHOUT CONTRAST 01/19/2016 [facility] contrast CT DATE: 01/19/2016 at 6:39 PM Cente r COMPARISON: None. HISTORY: Aphasia. TECHNIQUE: Contiguous axial images of the brain were obtained without intravenous contrast administration. Sagittal and coronal reformatted images were also provided. DLP: 951 mGy-cm. FINDINGS: There are no acute hemorrhag es or acute infarcts. The zamarripa-white interfaces are well defined. There are no mass lesions or extra axial collect ions. There are no acute bony abnormalities. The gabriel rium is intact. IMPRESSION: 1. No acute intracranial abnormality, normal CT scan of the brain. Resident preliminary report by Dr. Janae Bonilla: No acute intracranial abnormality. Brain/Neck Stroke EXAM: CTA BRAIN 01/19/2016 [facility] al perfusion CTA EXAM: CTA NECK Center EXAM: CT PERFUSION BRAIN DATE: 01/19/2016 at 6:39 PM CDT INDICATION: Ataxia COMPARISON: CT brain 01/19/2016 at 6:39 PM TECHNIQUE: - Dynamic CT perfusion image s on a limited area of the brain parenchyma are performed during bolus injection of iodinated contrast material. Color maps of relative cerebral blood flow, relative cerebral blood volume, time to peak, and mean transit time are created on an independent workstation and are submitted along with the source image data. -Rapid acquisition spiral CT images of the brain and neck were obtained between the aortic arch and the cranial vertex during intravenous infusion of iodinated contrast for the purposes of CT angiograph y. 3-D CT angiographic image s are created using MIP technique at the acquisition workstation. The source images are also presented for interpretation. IV contrast: 100 cc of Visipaque 320. DLP: 8542 mGy-cm FINDINGS: NECK CTA: Aortic arch: The great vesse ls originate from the aortic arch in the standard configuration. No origin stenosis is identified. The vertebral artery origins are patent bilaterally. Carotid arteries: The cervic al common carotid arteries and cervical internal carotid arteries have a normal course, caliber, and contour. Normal calcified plaque is noted within the right carotid bulb w ithout stenosis. No hemodyna mically significant stenosis of the carotid bifurcations or internal carotid arteries is present by NASCET criteria. There is no evidence of vascular injury. Vertebral arteries: The vert ebral arteries have a normal course, caliber and contour. The soft tissues of the neck are normal. Degenerative changes are noted within the cervical spine. The postoperative changes of anterior fusion of C4 and C5 are noted within anterior plate anchored by 2 screws each within the C4 and C5 vertebral bodi es. BRAIN CTA: Anterior circulation: Normal appearance and a standard branching pattern. No branch occlusion, vascular injury, arteritis, vascular malformation or aneurysm is identified. Posterior circulation: Abby l appearance and a standard branching pattern. The right P1 segment is hypoplastic but patent, a normal variant. No branch occlusion, vascular injury, arteritis, vascular malformation or aneurysm is identified. The deep cerebral veins and major venous sinuses are normal. The brain parenchyma and other incidental struct ures are unremarkable. CT PERFUSION: There is no regional abnorma lity in cerebral blood flow, cerebral blood volume, or transit time in the imaged areas of the brain to suggest active oligemia or infarction. RAPID infusion imaging demonstr ates CBF <30% volume: <1 cc. Perfusion Tmax> 6.0s volume: <1.5 cc. Mismatch volume: 0.0 cc. Mismatch ratio: None. IMPRESSION: 1. Normal CTA of the head. 2. Minimal calcified plaque within the right carotid bulb without stenosis, otherwise normal CTA of the neck. 3. Normal CT perfusion. Resident preliminary report by Dr. Janae Bonilla: No major branch occlusion. Normal perfusion study. (All qualitative and quantit ative assessments of carotid bifurcation and proximal internal carotid artery stenosis are made referencing the distal internal carotid artery {NASCET criteria}.) Chest 1view DX EXAM: XR CHEST 1 VIEW 01/19/2016 [facility] edical DATE: 01/19/2016 at 1854 hours Ce nter INDICATION: TIA COMPARISON: None available. TECHNIQUE: AP view of the chest FINDINGS: Lungs and pleura: No pulmonary or pleural based abnormality is identified. Heart and mediastinum: The h eart size is normal for technique. The mediastinal contours are normal. Bones: Prior rib fractures w ith callus formation are seen in the left anterolateral third and fourth ribs. IMPRESSION: No acute cardiopulmonary abnormality. Healed prior fractures of left third and fourth ribs. Brain wo contrast CT EXAM: CT HEAD WITHOUT CONTRAST 03/30/2015 [facility] INDICATION: Seizures COMPARISON: None TECHNIQUE: Contiguous axial images of the brain are obtained from skull base to vertex without administration of intravenous contrast. DISCUSSION: There is no intr acranial hemorrhage, space occupying mass or mass effect. No acute infarction. Ventricles are normal in size without midline shift. Visualized paranasal sinuses and tympanomastoid cavities are clear. Calvarium is intact. IMPRESSION: No acute intracranial abnormality. Chest 2 views DX CLINICAL HISTORY: Coughing. 02/13/[address] [facility] : 1970. TECHNIQUE: PA and lateral views of the chest. Heart size is normal. No acute consolidation. Basilar interstitial inf iltrates or atelectasis. No pleural effusion. IMPRESSION: 1. Basilar interstitial infiltrates. Brain wo contrast MRI EXAM: MRI BRAIN WITHOUT CONTRAST, [facility] PROTOCOL 12/13/2014 [facility] DATE: Dec 13, 2014 10:33:40 AM INDICATION: Weakness TECHNIQUE: Axial DWI, axial T2 FLAIR and axial gradient echo images were obtained through the brain without contrast as per standard stroke protocol. COMPARISON: MRI brain 07/19/2014. FINDINGS: Diffusion-weighted images do not demonst rate any evidence of ischemic change. The signal intensities of th e basal ganglia, thalami, brain stem are within normal limits. There is no evidence of mass effect or midline shift. No evidence of intracranial hemorrhage is seen. Ventricles are normal in siz e and configuration. No pathological extra-axial fluid collection is identified. Cerebral sulci and basal cisterns are well preserved. Normal signal voids are main tained in the visualized major intracranial vasculatures. Paranasal sinuses are unrema rkable. There is normal aeration of the mastoid air cells. Visualized orbits are grossly normal. IMPRESSION: No evidence of acute infarct or intracranial hem orrhage. Chest 1view DX EXAM: XR CHEST 1 VIEW 12/12/2014 [facility] INDICATION: Altered level of consciousness COMPARISON: 12/11/2014 at 2228 TECHNIQUE: Single AP view of the chest DISCUSSION: There is mild kelley bsegmental atelectasis in the right lung base. The lungs are otherwise clear. Heart size is within normal limits. No pneumothorax. No obvious pleural effusion. Mild gaseous distention of the stomach is noted. IMPRESSION: No acute changes since yesterday. Brain wo contrast CT PROCEDURE: Brain wo contrast CT 10/26/2014 [facility] REASON FOR EXAM: seizures rt sided weakness CLINICAL INDICATION: Seizures COMPARISON: 07/19/2014 MRI FINDINGS: The extra-axial sp tay, zamarripa-white differentiation, ventricles and cisterns are normal. There is no hemorrhage or midline shift. IMPRESSION: No evidence for hemorrhage, mass lesion or acute infarct. SL: 13 Brain wo contrast MRI MRI OF THE BRAIN 07/19/2014 [facility] DATE: 07/19/2014 at 8:24 p.m. Comparison studies: CT brain , CTA head and neck, CT perfusion 07/19/2014 at 6:05 p.m. CLINICAL INFORMATION: Hemiparesis. Technique: Multiplanar MR im aging was performed utilizing T1, diffusion, and T2 weighting. FINDINGS: There are no foci of signal abnormality within the brain substance. There are no acute hemorrhages or acute infarcts. There is no restricted diffusion. The zamarripa-white interfaces are well defined. There are no mass lesions or extra-axial collect ions. Normal vascular flow voids are noted. IMPRESSION: 1. No acute intracranial abn ormality, normal MRI of the brain. There are no acute hemorrhages or acute infarcts. Brain Stroke wo CT SCAN OF THE BRAIN 07/19/2014 [facility] dical contrast CT Center DATE: 07/19/2014 at 6:05 p.m. CLINICAL INFORMATION: Focal neurological defici t. TECHNIQUE: Routine axial im ages of the brain were obtained in the unenhanced mode. Sagittal and coronal reformatted images were also provided. FINDINGS: There are no acute hemorrhag es or infarcts. The zamarripa/white interfaces are well defined. There are no mass lesions or extra-axial collect ions. There are no acute bony abnormalities. The calv arium is intact. IMPRESSION: 1. No acute intracranial abnormality, normal CT scan of the brain. Consultation Notes No Data Provided for This Section Discharge Summaries No Data Provided for This Section History and Physicals No Data Provided for This Section Vital Signs Vital Sign Value Date Comments Source Respitory Rate 18 05/25/2016 [facility] Heart Rate 111 [facility]25[facility] Systolic (mm Hg) 138 05/25/2016 [facility] Diastolic (mm Hg) 71 05/25/2016 [facility] Temperature Oral (F) 97.8 F 05/25/2016 [facility] Respitory Rate 18 05/25/2016 [facility] Systolic (mm Hg) 128 05/25/2016 [facility] Diastolic (mm Hg) 74 05/25/2016 [facility] Heart Rate 78 05/25/2016 [facility] Temperature Oral (F) 97.9 F 05/25/2016 [facility] Respitory Rate 18 05/25/2016 [facility] Heart Rate 87 05/25/2016 [facility] Temperature Oral (F) 97.6 F 05/25/2016 [facility] Systolic (mm Hg) 137 05/25/2016 [facility] Diastolic (mm Hg) 64 05/25/2016 [facility] Weight 105.483 05/25/2016 [facility] BMI Calculated 31.54 05/25/2016 [facility] Height 182.88 cm 05/25/2016 [facility] Weight 109.091 05/24/2016 [facility] BMI Calculated 32.62 05/24/2016 [facility] Height 182.88 cm 05/24/2016 [facility] Systolic (mm Hg) 139 01/20/2016 [facility] dical Center Diastolic (mm Hg) 78 [facility] Resp[facility] Rate 18 01/20/2016 [facility] Center Systolic (mm Hg) 134 01/20/2016 [facility] dical Center Diastolic (mm Hg) 73 01/20/2016 [facility] edical Center Respitory Rate 17 01/20/2016 [facility] Center Respitory Rate 32 01/20/2016 [facility] Center Systolic (mm Hg) 119 01/20/2016 [facility] dical Center Diastolic (mm Hg) 58 01/20/2016 [facility] Center Temperature Oral (F) 96.2 F 01/20/2016 [facility] BMI Calculated 32.62 01/20/2016 [facility] Height 182.88 cm [facility]/20[facility] Weight 109.091 01/20/[facility] Heart Rate 63 01/20/2016 [facility] Temperature Oral (F) 96.9 F 01/20/2016 [facility] Weight 109 01/19/2016 [facility] BMI Calculated 32.59 01/19/2016 [facility] Height 182.88 cm 01/19/2016 [facility] Heart Rate 69 01/19/2016 [facility] Systolic (mm Hg) 141 03/30/2015 [facility] dical Center Diastolic (mm Hg) 81 03/30/2015 [facility] Temperature Oral (F) 97.6 F 03/30/2015 [facility] Respitory Rate 18 03/30/2015 [facility] Systolic (mm Hg) 156 03/30/2015 [facility] dical Center Diastolic (mm Hg) 97 03/30/2015 [facility] Respitory Rate 19 03/30/2015 [facility] Systolic (mm Hg) 152 03/30/2015 [facility] dical Center Diastolic (mm Hg) 92 03/30/2015 [facility] Center Heart Rate 88 03/30/2015 [facility] Respitory Rate 18 03/30/2015 [facility] Weight 95.455 03[facility]30/2015 [facility] BMI Calculated 29.35 03/30/2015 [facility] Height 180.34 cm 03/30/2015 [facility] Temperature Oral (F) 97.9 F 03/30/2015 [facility] Heart Rate 93 03/30/2015 [facility] Respitory Rate 11 02[facility]15[facility] Systolic (mm Hg) 143 02/15/2015 [facility] Diastolic (mm Hg) 93 02/15/2015 [facility] Respitory Rate 18 02/15/2015 [facility] Resp[facility] Rate 27 02/15/2015 [facility] Systolic (mm Hg) 139 02/15/2015 [facility] Diastolic (mm Hg) 75 02/15/2015 [facility] Systolic (mm Hg) 143 02/15/2015 [facility] Diastolic (mm Hg) 83 02/15/2015 [facility] Temperature Oral (F) 99.0 F 02/15/2015 [facility] Temperature Oral (F) 98.7 F 02/14/2015 [facility] Temperature Oral (F) 98.1 F 02/14/2015 [facility] BMI Calculated 25.8 02/13/2015 [facility] ity Height 182.88 cm 02/13/2015 [facility] y Weight 86.3 02/13/2015 [facility] [facility] Systolic (mm Hg) 143 12/14/2014 [facility] [place] [facility] Diastolic (mm Hg) 95 12/14/2014 [facility] Respitory Rate 26 12/14/2014 [facility] Respitory Rate 52 12/14/2014 [facility] Respitory Rate 21 12/14/2014 [facility] Systolic (mm Hg) 124 12/14/2014 [facility] Diastolic (mm Hg) 81 12/14/2014 [facility] Systolic (mm Hg) 124 12/14/2014 [facility] Diastolic (mm Hg) 81 12/14/2014 [facility] [place] Temperature Oral (F) 96.2 F 12/14/2014 [facility] Temperature Oral (F) 97.0 F 12/14/2014 [facility] Temperature Oral (F) 97.0 F 12/14/2014 [facility] Heart Rate 58 12/13/2014 [facility] Heart Rate 57 12/13/2014 [facility] Weight 89.008 12/12/2014 [facility] Height 182.88 cm 12/12/2014 [facility] Weight 89.8 12/12/2014 [facility] BMI Calculated 26.85 12/12/2014 [facility] BMI Calculated 26.88 12/12/2014 [facility] Weight 89.9 12/12/2014 [facility] Height 182.88 cm 12/12/2014 [facility] Heart Rate 88 10/27/2014 [facility] Respitory Rate 16 10/27/2014 [facility] Systolic (mm Hg) 100 10/27/2014 [facility] Diastolic (mm Hg) 64 10/27/[address] Temperature Oral (F) 98.0 F 10/27/2014 [facility] Heart Rate 99 10/27/2014 [facility] Respitory Rate 16 10/27/2014 [facility] Systolic (mm Hg) 134 10/27/2014 [facility] Diastolic (mm Hg) 76 10/27/[address] [facility] [address] Temperature Oral (F) 98.0 F 10/27/2014 [facility] Respitory Rate 16 10/27/2014 [facility] Systolic (mm Hg) 112 10/27/2014 [facility] Diastolic (mm Hg) 70 10/27/[address] [facility] [address] Heart Rate 92 10/27/2014 [facility] Temperature Oral (F) 98.5 F 10/27/2014 [facility] Height 182.88 cm 10/27/2014 [facility] Weight 86.364 10/27/2014 [facility] BMI Calculated 25.82 10/27/2014 [facility] BMI Calculated 25.82 10/26/2014 [facility] Height 182.88 cm 10/26/2014 [facility] Weight 86.364 10/26/2014 [facility] Systolic (mm Hg) 92 07/20/2014 [facility] Diastolic (mm Hg) 51 07/20/2014 [facility] Center Respitory Rate 14 07/20/2014 [facility] Systolic (mm Hg) 102 07/20/2014 [facility] Diastolic (mm Hg) 57 07/20/2014 [facility] Respitory Rate 20 07/20/2014 [facility] Respitory Rate 21 07/20/2014 [facility] Systolic (mm Hg) 102 07/20/2014 [facility] Diastolic (mm Hg) 61 07/20/2014 [facility] Temperature Oral (F) 98.0 F 07/20/2014 [facility] Temperature Oral (F) 98.1 F 07/20/2014 [facility] Heart Rate 70 07/20/2014 [facility] Heart Rate 61 07/20/2014 [facility] Temperature Oral (F) 97.5 F 07/20/2014 [facility] Heart Rate 63 07/20/2014 [facility] BMI Calculated 25.41 07/19/2014 [facility] Weight 85 07/19/2014 [facility] Height 182.88 cm 07/19/2014 [facility] Weight 93.182 06/22/2012 [facility] Height 182.88 cm 06/22/2012 [facility] Weight 100.000 03/01/2012 [facility] Height 182.88 cm 03/01/2012 [facility] Diastolic (mm Hg) 84 07/12/2011 [facility] Systolic (mm Hg) 146 07/12/2011 [facility] Respitory Rate 18 07/12/2011 [facility] Temperature Oral (F) 98.4 F 07/12/2011 [facility] Respitory Rate 18 07/12/2011 [facility] Diastolic (mm Hg) 90 07/12/2011 [facility] Center Systolic (mm Hg) 133 07/12/2011 [facility] Temperature Oral (F) 97.5 F 07/12/2011 [facility] Diastolic (mm Hg) 82 07/12/2011 [facility] Systolic (mm Hg) 134 07/12/2011 [facility] Respitory Rate 18 07/12/2011 [facility] Temperature Oral (F) 97.8 F 07/12/2011 [facility] Heart Rate 77 07/11/2011 [facility] Heart Rate 81 07/11/2011 [facility] Heart Rate 71 07/11/2011 [facility] Height 182.88 cm 07/09/2011 [facility] Weight 104.545 07/09/2011 [facility] Encounters Location Location Encounter Encounter Reason Attending ADM DC Stat us Source Details Type Number For Provider Date Date Visit [facility] [id number] NECK RUBEN 03/16 03/16 Active [facility] Medical 0 PAIN LYNDON /2009 [facility] Emergency [id number] NECK ANDREW 10/13 10/13 [facility] 1 PAIN LUBER [facility]2010 [facility] Inpatient [id number] BERT JULIAN 07/08 07/11 Nathaly connor [facility] 2 /2011 [facility] [id number] LISA 02/28 03/01 Dischar g [facility] Medical 3 KORINA /2011 [facility] Emergency [id number] JIL 06/22 06/22 Dischar g [facility] 4 MITZI /2012 ed [facility] OBS [id number] Terrell 07/19 07/20 [facility] [place] [facility] 7 [place] Jr /2014 [facility] OBS [id number] Rufus 10/26 10/27 [place] [facility] 6 [place] /2014 [facility] Patient t [facility] Inpatient [id number] Suur 12/12 12/14 [facility] [place] [facility] Inpatient [id number] Nireshkumar 02/12 02/15 [facility] 4 i /2014 [facility] EC [id number] Andrew 03/30 03/30 [facility] Emergency 7 Octavio /2014 [facility] Inpatient [id number] Samantha 01/18 01/19 [facility] 0 Thakkar /2015 [facility] Observation [id number] Sherry 05/24 05/25 [facility] 9 Liam [facility] Procedures Procedure Code Date Perfomer Comments Source Cervical [id number] [facility] C[facility]ical [id number] [facility] Discectomy [id number] [facility] Vasectomy [id number] [facility] Assessment and Plan Assessment and Plan Date Source Extracted from:Title: Clinical Document 05/25/2016 [facility] Author: Casey Monge MD Date: 05/25/16 [id number] Extracted from:Title: Clinical Document 01/20/2016 [facility] Author: Gladys Irvin MD Date: 01/19/16 STROKE TEAM / NEUROLOGY - HISTORY AND PHYSICAL Requesting Physician/Service: ER CC: right sided weakness, right facial droop, difficulty spe aking. HISTORY OF PRESENT ILLNESS: This is a 45 yo M with a hx of HTN, seiz ure disorder, traumatic brain injury with subsequent hemorrhage? with mild residual right sided weakness who presents with right sided weakness, right facial droo p and difficulty with speech. Patient wa s LSN yesterday at night, he went to the store and bought some items then went to sleep. He woke up at 2:30 PM today and according to the mother he was not able t o remember many things. At 3:00 PM patie nt was sitting in the recliner when he was noticed to have right sided weakness, right facial weakness and was having difficulty speaking. Unknown if he was seizi ng prior to weakness?. Mother called 911 and he was brought to [facility]. Patient's BP 169/110. Glucose 101. CTH d id not show any acute abnormalities. CTA did not show any major branch occlusion. Patient did not receive tPA as LSN was >4.5 hours. Patient takes keppra at home 500 mg BID 's number [phone] REVIEW OF SYSTEMS: GEN: no fever, chills, weight loss, fatigue EYES: no blurred vision, double vision CARDIO: no chest pain, palpitations PULM: no shortness of breath, cough GI: no nausea, vomiting, diarrhea, no abd pain : no frequency, dysuria, hematuria NEURO: see HPI SKIN: no rash or lesion MSK: no pain, swelling, redness, heat in muscles, no limited ROM, weakness, or atrophy, no cramps LYMPH/IMMUNO: No lymph node enlargement/tenderness, no heat/ cold intolerance PAST MEDICAL HISTORY: as above PAST SURGICAL HISTORY: cervical discectomy, vasectomy FAMILY MEDICAL HISTORY: Unknown SOCIAL HISTORY: drinks occasionally, current smoker, unknown if uses drugs. MEDICATIONS: keppra 500 mg BID lisinopril( unknown dose) norco( unknown dose) will bring the rest of his meds ALLERGIES: asa, morphine, penicillin, sulfa drugs, toradol, tramadol PHYSICAL EXAM: .v HEAD - Normocephalic and atraumatic LUNGS - Clear to auscultation, no rales or rhonchi CVS - Rate rhythm regular, no murmu r, no carotid bruit, equal pulses bilaterally ABDOMEN - Soft, non tender, with no rmal bowel sounds. No hepatosplenomegaly NEUROLOGY: awake but seems a little drowsy, orineted X 3 Speech: dysarthric, no aphasia chief talent officer: pupils 3mm equal and briskly reacti ve, intact visual bardales on confrontation testing, EOMs full, intact sensation V1-V3 bilaterally, mild right facial droop, grossly intact hearing bilaterally, equ al palatal elevation, full SCM strength bilaterally, tongue midline Motor: Tone: Normal Power: 5/5 in all groups of muscles in all four limbs except RUE and RLE 1/5 Reflexes: 2+ symmetrical bilaterally Plantar: Flexor Drift: absent Sensory: reduced on the right side Cerebellar signs: impaired on the right side( due to weaknes s) Gait: deferred NIH Stroke Scale (NIHSS) 1 1a. Level of Consciousness; 0-alert 1-drowsy 2-stupor 3-c omatose 0 1b. LOC Questions month and age; 0-both 1-one 2-neithe r 0 1c. LOC Commands open/close eyes, pharmacist per diem /release non-paretic hand; 0-both 1-one 2-neither 0 2. Best Gaze; 0-nl 1-partial 2-forced gaze 0 3. Visual Bardales; 0-No visual loss. 1-Partial hemianop ia 2-Complete 3-Bilateral 1 4. Facial Palsy; 0-none 1-minor 2-partial 3-complete 4 5. Motor - R arm; 0-No drift 1-Drift 2 -Some antigravity 3-No antigravity 4- No movement 4 6. Motor - R leg; 0-No drift 1-Drift 2 -Some antigravity 3-No antigravity 4- No movement 0 7. Motor - L arm; 0-No drift 1-Drift 2 -Some antigravity 3-No antigravity 4- No movement 0 8. Motor - L leg; 0-No drift 1-Drift 2 -Some antigravity 3-No antigravity 4- No movement 0 9. Limb Ataxia; 0 absent 1 - 1limb 2 - 2 limbs 0 10. Sensory; 0-nl 1-partial loss 2-dense loss 0 11. Best Language; 0-nl 1-mild/mod 2-severe 3-mute 1 12. Dysarthria; 0-nl 1-mild/mod 2-severe x-untest able 0 13. Extinction and Inattention (formerly Neglect); 0-none 1-partial 2-complete TOTAL SCORE 11 SIGNIFICANT LABS: Creatinine: 1.03 Glucose: 101 INR: 0.87 Cardiac Markers: -ve DIAGNOSTIC TESTS: CT Head: No acute abnormality CTA/Perfusion: No major branch occlusion MRI/MRA of head: pending EKG: NSR ASSESSMENT: This is a 45 yo M with a hx of VT, HTN, traumatic brain injury, seizures, who p/w difficulty speaking, right sided weakness and right facial droop. CTH and CTA non significant. DDx include acute stroke vs todds paralysis. ( No clinical seizures witnessed by fami ly) PLAN #Possible stroke/ seizures: Admit to [facility] for now ASA not ordered due to allergy. Atorvastatin 80mg daily has been ordered [or exclusion of statin indicated]. pending lipid panel. If cohen catheter present on admission, assess and document necessity HOB flat Telemetry CXR EKG if not done in ED MRI brain to evaluate for infarct.--> pending TTE to evaluate for cardiac source of embolus. Stroke labs: fasting lipid panel and hemoglobin A1c . IV NS 75 cc/hr.. Treat fevers and blood sugars aggressively. PT/OT/TOY PARTS FORMER SUPERVISOR consults - rehab assessments have been ordered. DVT prophylaxis, SCDs will give 1000 mg keppra now, then Q12H If no stroke proven, and if patient is b ack to baseline in the morning, can dc home on 1000 mg keppra BID. ======= THE FOLLOWING WERE PRESENT ON ADMISSION: LIFEGUARD - right sided weakness, seizures, traumatic brain injury Cardiovascular - VT, HTN Infectious - Sepsis, Meningitis, UTI, Pneumonia Trauma -prior head trauma ACUTE STROKE BENCHMARKS: TIME PATIENT LAST SEEN NORMAL last night CODE STROKE ACTIVATION (CARE4 COMPUTER TIME) 06:15 NEUROLOGY RESIDENT ARRIVAL AT THE BEDSIDE (CARE4 COMPUTER T NIURKA) 06:15 IV TPA BOLUS (TIME AND DOSE) n/a IV TPA INFUSION (TIME AND DOSE) n/a DELAYS IN THE CODE STROKE PROCESS n/a The patient was discussed with ___Rubin malone , the attending/fellow service loss control consultant. Gladys Irvin M.D Neurology PGY2 ID# [id number] Pager # [phone] Attending's Addendum: I personally sawearl and interviewed the patient. I reviewed the clinical notes, imaging and laboratory w/u. I agree with the resident's clinical assessment and plan of care. There is no evidence for acute stroke on imaging.Patient is back to baseline. Gait is stable. Can walk without assistance. Will increase Keppra to 1000mg BID.Patient to f/u with epilepsy as outpatient i n a week or two. 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 He received Valium 5 mg en route for the seizures and has not taken his daily dose of VPA this morning. Patient's pr evious admissions note breakthrough even ts in the setting of subtherapeutic VPA levels indicative of noncompliance as well as prior history of substance abuse (alcohol). The possibility of nonepileptifo rm seizures have also been discussed in the past. Per patient, the first event occurred th morning when he was talking to his mother. He states that he was supposed to drive to the local store to spanish moss picker donuts and was nervous of the same. He is awar e that he is not supposed to drive given the fact that he has atleast one breakthrough seizures per week. He had two events at home and was picked up by EMS - ?third event prior to transfer to [facility]. He received 5 mg of Valium. He follow s with Dr Nick in [place] and currently is in process of getting insurance set up and transitioning to disability (court hearing in May 2015). He also en dorses that early this am, his "legs tur poppy to rebeccao and gave way" and that he has been noting tremors of his hands as well interfering with his ability to perform motor movements requiring dexterity. He was on Diazepam in the past for anxie ty, however was taken off the same by his PCP as he was on both Soma for insomnia and the diazepam and there was concern for excessive use. He currently endorses a 11/11 HARYD which has not been relieved by tylenol. He stays at home with his mother and . Review of Systems: GEN: No fever, chills, night sweats, weight loss, fatigue EYES: No blurred vision, double vision, eye pain ENT: No decreased hearing, nose bleeding, nasal congestion, sore throat CARDIO: No chest pain, palpitation, orthopnea, dyspnea on ex ertion PULM: No shortness of breath, cough, wheezing, asthma, sputu m, hemoptysis GI: No nausea, vomiting, diarrhea, constipation, Abdominal P ain : No frequency, burning, hematuria, nocturia, hesitancy NEURO: As per HPI ENDO: No weight loss, weight gain, heat intolerance, cold in tolerance SKIN: Macular rash noted on forehead MUSC: Back pain + Past Medical History: -Seizure disorder -Traumatic brain injury. -Intracranial hemorrhage -Attention deficit hyperactivity disorder. -Hypertension Past Surgical History: -Cervical diskectomy with fusion. -Vasectomy -Knee surgery. -Hand surgery. Family History: No history of seizures or CVA. f/h/o HTN Social History: The patient smokes 10 cigarretes per da y. Patient states he drinks on occasion (last drink was 1 beer yesterday) but denies IV drug abuse. Currently he is unemployed. He ambulates with assistance of a cane. Medications: Per last discharge medical reconciliation from 02/14 Celexa Saltese 10/325 mg prn back pain/HARDY Vyvanse 70 mg prn for ADHD Diazepan 10 mg daily prn anxiety (not taking currently) folic acid 1 mg daily lisinopril 40 mg daily thiamine 100 mg daily VPA 500 mg q 12h Allergies: -Aspirin -Morphine -Penicillin -Sulfa -Toradol. Physical Exam: APPEARANCE - Active, alert, well develop ed, well nourished . Moderate distress due to HARDY HEAD - Normocephalic and atraumatic EYES - Pupil equal and reactive to light NECK - Supple, thyroid non-palpable, no significant adenopat hy LUNGS - Clear to auscultation, no rales or rhonchi CV - Rate rhythm regular, no murmur, equal pulses bilaterall y. ABDOMEN - Soft, non tender, with normal bowel sounds. No hep atosplenomegaly SPINE - Straight, no defects, no scoliosis SKIN: Some macular erythema noted on forehead and cheek. NEUROLOGY: AAO*3 Speech: fluent, comprehension intact, repetition and naming intact chief talent officer: 2-12 intact. Endorses some "tingling" in V2-V3 Motor: Tone: Normal Power: 5/5 in all groups of muscles in all four limbs Reflexes: 1+ in RUE biceps and triceps, otherwise 2+ in LUE, LLE and RLE. Plantar: Flexor Drift: mild on R Sensory: Intact light touch and pin prick sensation Cerebellar signs: Intact FNT Gait: deferred Adventitious movements: Flexion-extensio n tremors noted in UE (hands) and LE, UE > LE. Low amplitude, high frequency. No asterixes. Labs: VPA level 4 UDS negative Phos 1.6 Mg 2.0 electrolytes, LFT wnl CBC pending UDS negative Diagnostic Tests: 02/13/2015, EEG is reported as mild diff use slowing of background rhythm suggestive of an underlying mild diffuse encephalopathy. Extra fast activity seen in this record are likely a medication effect f or which the patient has received benzod iazepines, no overt epileptiform discharges and no electrographic seizures were present during this recording. Assessment: 44 y/o R handed male with PMH of traumatic brain injury with LOC in 2011 with subsequent paroxysmal spells which have been diagnosed at OSH as epileptiform GTCS with concern fo non-epileptifor m component, with multiple admissions in the past in the setting of medication non-compliance currently presents via LF from OSH for breakthrough seizures. In the ER, he is back at his baseline. His CT- H is negative acute. VPA levels are subt herapeutic indicating medication non-compliance. Plan: - Anticonvulsant agent: 1. Load with Keppra 1500 mg * 1 2. Continue patient on VPA 500 mg BID and Keppra 750 mg BID 3. Since the VPA can cause drug-induced tremors, long-term plan would be to taper off the same. 4. Please provide patient with script fo r 1 month of Keppra, discount voucher from [employer] for the same along with instructions to follow up with PCP in 1 month and neurology with first available appointment. - Electrolyte replacement 1. Please replace Phosphate, goal phos > 4 - Seizure precauations: patient was counseled 1. No driving till seizure free for three months while on AE Ds. 2. Do not indulge in any activity which if unsupervised could place you in a life threatening situation. - Defer headache management to ER physician. Patient is on N orco 10/325 mg. - Will require outpatient follow up with neurology and likely 23 h EEG to better characterize his paroxysmal events. - Medication compliance reinforced. Thank you for allowing us to participate in Mr Ramirez's care. Neurology will sign off for now. Please page [phone] should you have any queries or concerns. The case was discussed with the service loss control consultant General Neurol ogy attending Dr Faith. Sharda Casey PGY-3 [facility] Neurology Extracted from:Title: Progress Note * 02/15/2015 [facility] Author: Oleg Davis MD Date: 02/15/15 Impression and Plan 1.- Seizure disorder -? Generalized ton ic clonic - ? secondary to hemorrhagic CVA , prior to this admisssion due to trauma - now with exacerbation due to noncompliance - dilantin loading dose and on de pakote per neuro . appreciate the input. MRI in december with no hemorrhage - neuro following . ? psychogenic nonepileptic sz 2.- ADHD - on Vyvanse on and off - ? reason for positive samantha g screen. 3.- Abnormal cxr -rpt xray - more in med e with atelectasis - afebrile , leucocytosis resolved - CK is 44 - too low for this to be from tonic clonic activity - UA is acceptable. ? reactive. continue levaquin. monitor IS , get sputum for C&S 4.- HTN - lisinopril - controlled 5.- Hypophosphatemia -improved . Disposition - DC to home . d/w neurologi st and plan noted and he is cleared for discharge from neuro standpoint . please see neuro note for further details. Extracted from:Title: General Admission H&P * Author: León Boland Lac DO Date: 02/12/15 Impression and Plan 44 yo M with s/s Pneumonia: pt was recen tly admitted therefore will cover for Stap and pseudomonas -Incentive Spirometry for pulmonary hygiene. -Tylenol and zofran prn. -[id number] as needed. Seizure likely due to non-compliance -dilantin load -cont with IV dilantin daily -neurology consult Polysubstance abuse: will monitor for sign of withdrawl Hypokalemia: replete For all other chronic medical conditions: resume home meds DVT ppx addressed Extracted from:Title: General Neurology Discharge Summary [facility] Author: Eva Pal MD Date: 12/14/14 General Neurology Discharge Summary Date of Admission: 12/12/14 Date of Discharge: 12/14/14 Admit Diagnosis: Seizure Disorder, Substance Abuse Discharge Diagnosis: Seizure Disorder, S ubstance Abuse, UTI, Medication Noncompliance Consults Obtained: None Brief HPI: History was taken from nursin g report, [facility] medical records and previous medical records. Multiple attempts to reach patient's failed: 44yo man with a history of sei zures from previous traumatic brain injury, HTN, hemorrhagic stroke (?), and ADHD who had 2 episodes of seizures yesterday afternoon and was [facility]. Around 5 PM yesterday, patient had first episode of seizure followed by postictal confusion. Around 10 PM, patient had second episode of seizure followed by confusion and was taken to [facility]. Patient has b een taking pain medications and in [facility], he was given 0.4 mg of Narcon which made him more alert. Subsequently patient was taken to CT machine and he had third episode of seizure there. He was given 4 mg of Ativan at that time (1107 PM). Pedro Luis cardona was subsequently transferred to our facility for HLC. Of note, in [facility], he reportedly had posit laila UDS for opiates, Oxycodone, Amphetamine, Benzo and Cocaine. Electrolytes including Na, K, Glucose and calcium were ALL WNL. In addition UA was negative for infection. Patient had a recent admission to [facility] in October 2014 after he had multiple episodes of seizure. He has had multiple admissions and was found to have low valproic acid level previously. Patient's can be reached at [phone]. Mul tiple attempts to reach her overnight failed. Hospital Course: Patient admitted to [facility] for persistent seizure activity at OSH. Lethargic on initial presentation, concern for withdrawal versus postictal state. Placed on CIWA precautions for possib le alcohol withdrawal. Repeat UDS docume nted +cocaine, benzodiazepines, opiates, amphetamines. Routine EEG with encephalopathic background, no epileptiform abnormalities. Left-sided weakness noted on ex am, unknown baseline as patient with AMS , unable to provide history, ordered MRI brain. Patient VS stable, transferred to floor. Limited MRI brain showed no evidence of acute infarct or intracranial hem orrhage. Patient's home dose VPA 250mg p o tid increased to 500mg po bid. VPA level 27 (improved from <3 on admission) on discharge. Patient more lucid s/p 24 hours, endorsed history of CVA 2 years ago with residual left-sided weak ness and sensory deficit, baseline. UA showed evidence of UTI, +leukocyte esterase, protein, WBC 17. Afebrile throughout hospitalization. Urine culture negative. Started levofloxacin, switched to cefpod oxime given safer side effect profile with seizure disorder. Continued attempts to reach by phon e for collateral information during patients hospitalization failed. No seizure activity noted during hospitalization. Breakthrough seizure activity possib ly 2/2 medication noncompliance versus s ubstance/cocaine abuse versus infection/UTI. Discharge Physical Examination: AAOx4. 4 +/5 right lower extremity, 5/5 right upper extremity and left upper and lower extremities. No sensory deficits. Motor weakness baseline s/p CVA 2 years ago, per patient. Discharge Medications: Please see EMR for full list. Results Pending: None Follow up: Dr. Jamarcus Calhoun, PCP. If everett mccall is able, would recommend follow up with [facility], may call for appointment [phone]. Discharge Instructions: Follow up with your PCP, Dr. Jamarcus victor, within 1-2 weeks. Follow up with your primary neurologist within 3-4 weeks to monitor symptoms and medication maintenance. Continue valproic acid 500mg po bid for seizure prophylaxis. Follow up with neurologist and compliance with medication are important to prevent seizure activity. Continue cefpodoxime 100mg po q12 hours for 5 more days, for UTI. Continue other home medications upon discharge. Diet: Heart Healthy Seizure precautions: No driving for 3 mo nths until seizure free and cleared by physician. Take showers not baths. Avoid swimming alone. Do not climb ladders or operate heavy machinery. Maintain good sleep hygiene. Avoid substance use. Eva Pal MD PGY1 Psychiatry Pager: [phone] MSO: [phone] Extracted from:Title: General Neurology Progress Note Author: Eva Pal MD Date: 12/13/14 General Neurology Progress Note Subjective: Unable to complete MRI overnight, unknow n type of implantation 2/2 previous cervical diskectomy with fusion. Patient with pain overnight, given norco. Continued headache this morning. Attempted to call this morning to obtain additional history, did not answ er. HPI: History was taken from nursing report, [facility] medical records and previous medical records. Multiple attempts to reach patient's failed: 44yo man with a history of sei zures from previous traumatic brain injury, HTN, hemorrhagic stroke (?), and ADHD who had 2 episodes of seizures yesterday afternoon and was [facility]. Around 5 PM yesterday, patient had first episode of seizure followed by postictal confusion. Around 10 PM, patient had second episode of seizure followed by confusion and was taken to [facility]. Patient has b een taking pain medications and in [facility], he was given 0.4 mg of Narcon which made him more alert. Subsequently patient was taken to CT machine and he had third episode of seizrue there. He was given 4 mg of Ativan at that time (1107 PM). Pedro Luis cardona was subsequently tasnferred to our facility for HLC. Of note, in [facility], he reportedly had posit laila UDS for opiates, Oxycodone, Amphetamine, Benzo and Cocaine. Electrolytes including Na, K, Glucose and calcium were ALL WNL. In addition UA was negative for infection. Patient had a recent admission to [facility] in October 2014 after he had multiple episodes of seizure. He has had multiple admissions and was found to have low valproic acid level previously. Patient's can be reached at [phone]. Mul tiple attempts to reach her overnight failed. Hospital Course: 12/12: Patient admitted to NTICU for seiz ure activity. Placed on CIWA precautions for possible alcohol withdrawal. Repeat UDS documented +cocaine, benzodiazepines, opiates, amphetamines. Ordered MRI and routine EEG for seizure work up. Transferred to [facility]. Unable to obtain MRI. Medications: Medications (13) Active Scheduled Meds (6): 12/12/14 docusate-senna (docusate-senna 50 mg-8.6 mg oral tablet) 1 tab PO Daily 12/13/14 folic acid 1 mg PO Daily 12/12/14 heparin 5,000 unit SUB-Q Q8H 12/13/14 multivitamin 1 tab PO Daily 12/13/14 thiamine 100 mg PO Daily 12/12/14 valproic acid (valproic acid 25 0 mg oral capsule(Depekene)) 500 mg PO Q12H Unscheduled Meds: None PRN Meds (4): 12/12/14 LORazepam 2 mg IVP Q2H 12/12/14 LORazepam 2 mg IVP Q2H 12/12/14 acetaminophen-hydrocodone (Saltese 10/325 oral tablet ) 1 tab PO Q6H 12/12/14 sodium chloride (Saline Flush 0.9%) 10 ml IVP PRN One Time Meds (2): 12/12/14 (not done) fentaNYL 12.5 microgram IV ONCE 12/12/14 (Completed) valproic acid + So dium Chloride 0.9% IV 100 mL (valproic acid 100 mg/mL intravenous solution + Sodium Chloride 0.9% IV 100 mL) 1,350 mg IVPB ONCE 113.5 ml/hr Continuous Infusions (1): 12/12/14 Sodium Chloride 0.9% IV 1,000 mL 1,000 mL 125 ml/hr Objective: Vitals: Vitals Tmp(F) Pulse BP RR SpO2 FIO2 12/13 06:42 96.6 --- ----- -- --- --- 12/13 06:00 ---- 52 108/66 14 100 --- 12/13 05:00 ---- 56 111/63 17 100 --- 12/13 04:00 ---- 54 112/61 13 100 --- 12/13 03:00 ---- 77 130/81 21 99 --- 24 Hr Tmax: 97.8F (36.56c) at 12/13 00:5 7 Vital Signs are the last 5 in the past 48 hours. Physical Exam: HEAD - Normocephalic and atraumatic LUNGS - Clear to auscultation, no rales or rhonchi CVS Rate rhythm regular, no murmur, equal pulses bilateral ly ABDOMEN - Soft, non tender, with normal bowel sounds. No hep atosplenomegaly NEUROLOGY: AAO*3 Speech: fluent, comprehension intact, repetition and naming intact chief talent officer: 2-12 intact Motor: Tone: Normal Power: 5/5 in all groups of muscles in all four limbs Reflexes: 2+ symmetrical bilaterally Plantar: Flexor Drift: absent Sensory: Light touch sensation decreased on right versus left, per patient baseline since CVA. Vibratory sensation decreased on right versus left. Cerebellar signs: Intact FTN, Rombergs negative Gait: normal Labs: 36hr Labs 12/13 0623 Glucose POC 100 H 12/13 0308 Ca Ion WB 1.12 Ca Norm WB 1.08 Glucose Lvl 86 BUN 16 Creatinine Lvl 0.9 Sodium Lvl 143 Potassium Lvl 4.1 Chloride Lvl 110 H CO2 26 AGAP 11.1 Calcium Lvl 8.0 L eGFR 104 Magnesium Lvl 1.9 Phosphorus 2.9 WBC 6.7 RBC 4.01 L Hgb 12.7 L Hct 38.4 L MCV 96.0 H MCH 31.8 H MCHC 33.2 RDW 12.8 Platelet 157 MPV 9.7 Segs 50.9 Monocytes 8.7 Lymphocytes 34.7 Eosinophils 4.8 H Basophils 0.9 Segs-Bands # 3.4 Lymphocytes # 2.3 Monocytes # 0.6 Eosinophils # 0.3 Basophils # 0.1 12/12 2014 Glucose POC 186 H 12/12 1816 Glucose POC 79 12/12 1707 HIV 1/2 Ab Negative 12/12 1610 Glucose POC 85 12/12 1227 Glucose POC 85 12/12 1014 U Amph Scr Positive U Shi Scr Negative U Benzodia Scr Positive U Cannab Scr Negative U Cocaine Scr Positive U Methadone Scr Negative U Opiate Scr Positive U Phencyc Scr Negative U Propoxyph Scr Negative UDS Note See Note MRSA by PCR Negative UA Color Yellow UA Turbidity Clear UA Spec Grav 1.023 UA pH 7.0 UA Protein 20 UA Glucose Negative UA Ketones TR UA Bili Negative UA Blood Negative UA Urobilinogen <=1.0 UA Nitrite Negative UA Leuk Est Small UA RBC 1 UA WBC 17 H UA Mucus Few UA Sq Epi Occasional 12/12 0817 Glucose POC 81 12/12 0809 Ca Ion WB 1.05 Ca Norm WB 1.07 Ethanol Lvl <3 Etoh (%) <.003 Glucose Lvl 88 BUN 15 Creatinine Lvl 0.9 Sodium Lvl 141 Potassium Lvl 3.9 Chloride Lvl 109 CO2 26 AGAP 9.9 L Calcium Lvl 8.1 L eGFR 104 Total CK 106 Magnesium Lvl 2.1 Phosphorus 2.3 L Total Protein 6.0 L Albumin Lvl 3.1 L Bili Total 0.2 Bili Direct 0.1 Bili Indirect 0.1 Alk Phos 64 AST 21 ALT 27 Globulin 2.9 A/G Ratio 1.1 CK MB 1.6 CK MB Index 1.5 WBC 8.9 RBC 3.91 L Hgb 12.5 L Hct 37.8 L MCV 96.7 H MCH 32.1 H MCHC 33.1 RDW 13.0 Platelet 161 MPV 9.0 Segs 58.0 Monocytes 9.8 Lymphocytes 27.9 Eosinophils 3.8 Basophils 0.5 Segs-Bands # 5.2 Lymphocytes # 2.5 Monocytes # 0.9 H Eosinophils # 0.3 PT 13.0 INR 0.98 PTT 28.4 12/12 0525 Sodium Lvl 143 Potassium Lvl 3.9 Chloride Lvl 108 CO2 29 AGAP 9.9 L Glucose Lvl 79 Creatinine Lvl 0.9 BUN 17 B/C Ratio 19 Total Protein 6.0 L Albumin Lvl 3.2 L Globulin 2.8 A/G Ratio 1.1 Calcium Lvl 8.0 L ALT 27 AST 20 Alk Phos 73 Bili Total 0.2 eGFR 104 Valproic Acid Lvl <3 L WBC 7.7 RBC 3.94 L Hgb 12.7 L Hct 38.1 L MCV 96.5 H MCH 32.1 H MCHC 33.3 RDW 13.0 Platelet 156 MPV 9.4 Segs 54.7 Monocytes 11.6 Lymphocytes 28.5 Eosinophils 4.6 H Basophils 0.6 Segs-Bands # 4.2 Lymphocytes # 2.2 Monocytes # 0.9 H Eosinophils # 0.4 Diagnostic Work Up: CT Head ([facility]): Negative per records. CXR (12/12): Mild subsegmental atelectasi s of the right lung base. Lungs otherwise clear. Heart size within normal limits. No pneumothorax. No obvious pleural effusion. Mild stomach distension. MRI Brain (12/12): Pending. Routine EEG (12/12): Abnormal EEG due to moderate to severely encephalopathic background. No epileptiform abnormalities noted. Assessment: 44yo man with a history of se izure secondary to traumatic brain injury/ hemorrhagic stroke(?), HTN, and ADHD who presented to OSH with 2 episodes of seizures yesterday afternoon, continued s eizure activity at OSH, transferred to [facility] for HLOC. UDS positive for cocaine and amphetamines at OSH, confirmed here. Also history of alcohol abuse. History of poor medication compliance. UA positi ve for UTI. Breakthrough seizure activit y 2/2 medication non-compliance vs. drug/alcohol toxicity or withdrawal vs infection. Plan: # Seizures - Continue to monitor for seizure activi ty. No seizure activity noted x24 hours. - Continue to monitor VS, CBC/Diff, CMP. Afebrile, WBC 6.7, electrolytes within normal limits. - S/p loading with VPA. Continue VPA 500 mg q12 hours, for seizure prophylaxis. VPA level <3.0, low. - Consider transitioning to Dilantin, gi mandi once daily dosing and history of medication non-compliance. - Ativan 1mg IV q15 minutes prn for breakthrough seizure act ivity. - UDS + cocaine, benzodiazepines, opiates, amphetamines. - Routine EEG encephalopathic background with no epileptif orm abnormalities. - MRI pending. # UTI - UA with +leukocyte esterase, protein, WBC 17. - Afebrile, asymptomatic. - Cr 0.9. UOP 1250cc. - Pending urine culture and sensitivities. # Substance Abuse - UDS + cocaine, benzodiazepines, opiate s, amphetamines. Benzodiazepines, opiates, and amphetamines consistent with home medications. - Social work consult for discharge planning. DVT PPx: heparin subQ q8 hours, SCD, ROBERT GI PPx: docusate, senna NEUROLOGY ATTENDING I have seen and examined the patient wit h the resident, Dr. Pal. I have reviewed their note and agree with the above mentioned findings and the management plan (with exceptions noted below). I also have reviewed the lab results and imaging. Significantly improved. Limited MRI to a ssess for stroke. OOB-Chair. PT/OT eval. If cleared by PT/OT then discharge with follow up plans with neurology clinic. DX: Seizures; polysubstance abuse CPT: 08865 You Mac MD Pager# [phone] Addendum by Eva Pal MD on 12/13/2014 13:02 Initated cefpodoxime 100mg po q12 hours x7 days for UTI. Discussed plan with pharmacist. Given sulfa allergy, unable to give bactrim. Given seizure disorder, unable to give fluoroquinolones which lower seizure threshold. Patient instructed to watch for allergic reaction. Will plan to continue to follow urine culture results. Extracted from:Title: Neurology Team Initial History and Phy sical Author: Srinivas Ochoa MD Date: 12/12/14 General Neurology Admission Note Requesting Physician/Service: Direct admission from [facility] C.C: Seizure HISTORY OF PRESENT ILLNESS: History was taken from nursing report, [facility] medical records and previous medical records. Multiple attempts to reach patient's failed: Mr. Ramirez is a 44 year old ma n with a history of seizures from previous traumatic brain injury, HTN, hemorrhagic stroke(?), and ADHD who had 2 episodes of seizures yesterday afternoon and was [facility]. Around 5 PM yesterday, patient had first episode of seizure followed by postictal confusion. Around 10 PM, patient had second episode of seizure followed by confusion and was taken to [facility]. Patient has been taking pain medications and in [facility], he was given 0.4 mg of Narcon which made him more alert. Subsequently patient was taken to CT machine and he had third episode of seizrue there. He was given 4 m g of Ativan at that time( 1107 PM). Jessica ent was subsequently tasnferred to our facility for HLC. Of note, in [facility], he reportedly had posit laila UDS for opiates, Oxycodone, Amphetamine, Benzo and Cocaine. Electrolytes including Na, K, Glucose and calcium were ALL WNL. In addition UA was negative for infection. Patient had a recent admission to [facility] in October 2014 after he had multiple episodes of seizure. He has had multiple admissions and was f ound to have low valproic acid level previously. Patient's can be reached at [phone]. Multiple attempts to reach her over night failed. Review of Systems: Patient is confused and is not able to answer the questions. PAST MEDICAL HISTORY: -Seizure disorder. -Hep B/ Hep C. -Traumatic brain injury. -Intracranial hemorrhage -Attention deficit hyperactivity disorder. -Hypertension PAST SURGICAL HISTORY: -Cervical diskectomy with fusion. -Vasectomy -Knee surgery. -Hand surgery. SOCIAL HISTORY: The patient smokes half a pack of cigarettes a day. Drinks alcohol regularly. Denies IV drug use. Patient is unemployed and lives with the . FAMILY HISTORY: Noncontributory HOME MEDICATIONS( Medical record 2014): Vyvanse 70 mg p.o. daily p.r.n. ADHD. Saltese 10-325 mg q. 4 h. p.r.n. Soma 350 mg p.o. t.i.d. Diazepam 10 mg p.o. t.i.d. p.r.n. Lisinopril 40 mg p.o. daily. Clonidine 0.1 mg p.o. b.i.d. p.r.n. Depakote 250 mg p.o. t.i.d. ALLERGIES: -Aspirin -Morphine -Penicillin -Sulfa -Toradol. Physical Exam: Vitals Tmp(F) Pulse BP RR SpO2 FIO2 12/12 06:00 ---- 55 110/70 11 99 --- 12/12 05:57 ---- 55 ----- 12 98 --- 12/12 05:45 94.9 55 113/68 11 98 --- 12/12 05:30 ---- 53 123/78 11 97 --- 12/12 05:15 ---- 52 114/76 15 94 --- 24 Hr Tmax: 94.9F (34.94c) at 12/12 05:4 5 Vital Signs are the last 5 in the past 48 hours. APPEARANCE - well developed, well nourished HEAD - Normocephalic and atraumatic EYES - Pupil equal and reactive to light NECK - Supple, thyroid non-palpable, no significant adenopat hy LUNGS - Clear to auscultation, no rales or rhonchi CV - Rate rhythm regular, no murmur, equal pulses bilaterall y. ABDOMEN - Soft, non tender, with normal bowel sounds. No hep atosplenomegaly NEUROLOGY( Neuroexam was limited because of patient's mental status/ done at 4 AM). Mental Status: very drowsy, Oriented X 0, following command s in all ext. chief talent officer: Pupils equal, round, and reactive. R 1-2 mm L 1-2 mm. Face symmetric at rest and with activation. Facial sensation is intact to light touch. Motor: Tone: Normal Power: RUE: Antigravity LUE: Antigravity RLE: Antigravity LLE: Antigravity DTRs: 2+ in bilateral biceps, triceps, brachioradialis , patellar, and achilles. Plantar: Flexor Sensory: unable to assess Cerebellar signs: unable to asssess Gait: deferred Labs: Pending Diagnostic Tests: MRI of Brain( July 2014) : 1. No acute intracranial abnormality, no rmal MRI of the brain. There are no acute hemorrhages or acute infarcts. CTA of Head and neck( July 2014): 1. Minimal calcified plaque of the right carotid bulb withou t stenosis. 2. Otherwise normal cervical image CT an giogram, carotid and vertebrobasilar systems. There is no carotid bifurcation stenosis. There are no intracranial branch occlusions. Assessment: Mr. Ramirez is a 44 year old ma n with a history of seizure secondary to traumatic brain injury/ hemorrhagic stroke(?), HTN, and ADHD who had 2 episodes of seizures yesterday afternoon and wa s [facility]. He was found to have pos itive UDS for cocaine and amphetamines which could be secondary to ADHD meds/ drug abuse. CT of Head in [facility] was negative for any acute event( uploaded to [facility]). His breakthrough seizure could be second eliz to medication non-compliance, cocaine abuse or possible infection. If patient's confusion/ drowsiness is most likely secondary to postictal confusion/ At stewart he was given in [facility]. We would consi nikolay EEG if patient continues to be confused. Plan: -Admit the patient to NICU under Dr. Turner. -Check toxic metabolic panel including C BC diff, CMP , UDS and Serum alcohol level. -Check UA and Chest X ray. -Check Valproic acid level. -Load the patient with 15 mg/ kg of IV Vlaproic acid. -Start the patient on Home dosage of Dep akone 250 mg TID( per medical record review in July 2014, will check with family in the morning). - Ativan 1 mg IV Q 15 min PRN seizure. -Heparin SQ Q 8h/ SCD/ Robert hose. -Docusate/ Senna. The case was discussed with the service loss control consultant General Neurology attending, Dr. Turner. Srinivas Ochoa, PGY- 3 [facility] Neurology Department Pager: [phone] NEUROLOGY ATTENDING I have seen and examined the patient wit h the resident, Dr. Ochoa. I have reviewed their note and agree with the above mentioned findings and the management plan (with exceptions noted below). I also have reviewed the lab results and imaging. Seizure disorder due to previous H/O TBI and a possible stroke. Ilicit drug use and noncompliance with seizure medications are suspected to be the cause of breakthrough seizures. Heavy alcohol drinker. H/O hepatitis. Encephalopathic on exam. Right side appears to be weaker than left. He reports this to be old. Brain MRI. PT/OT/specch. Urine tox screen. Continue Depakot. Chest x-ray. Transfer to [facility] i f okay with ICU team. Monitor for withdrawal symptoms. 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 Neurology was consulted and after checking valproic acid levels and speaking with patient, the patient may have medication compliance issues. The patient was given a loading dose o f valproic acid and monitored in the [facility]. No further seizure activity was noted. The patient was thought to have developed Todds paralysis and therefore was se en by PT and OT, who both cleared him wi thout need for DME. The patient was counseled on tobacco use and its dangers and his need to quit. I saw and examined the patient on day of discharge and kay s the plan for discharge with the trey t. The patient was dishcharged in good condition, with appropriate followup and appropriate medications. DISCHARGE INSTRUCTIONS: Notify Physician if any of the Following Occur : Bleeding, Fever, Nausea, Pain, Shortness of breath, Signs of infection, Swelling, Other: Seizure activity Are There Any Activity Restrictions : Yes Driving : No driving until advised by physician DISCHARGE DIET: Home Diet : Heart healthy diet DISCHARGE MEDICATIONS: PLEASE SEE HMR F OR DETAILS PERTAINING TO DISCHARGE MEDICATIONS DISCHARGE FOLLOWUP: Follow-Up With Provider : Non- physician Non Provider #1 : Primary Care Physician Follow-Up Call : Call for appointment Follow-Up Within : 1 Week Reason : Seizure management and pain management of chronic pain A total of 32 minutes was spent planning discharge which included bedside counseling. Plan of Care No Data Provided for This Section Social History Social History Date Source Social History TypeResponse 01/20/2016 [facility] Substance Abuse Use: Past. Type: Cocaine. Recreational Drug Route: Inhaled. Previous Treatment: None.1 Alcohol Current, Type Beer. Frequency: 3-5 times per week. Smoking Status Current every day smoker; Type: Cigarett es; Tobacco use per day: 10; Exposure to Tobacco Smoke None; Cigarette Smoking Last 365 Days Yes; Reg Smoking Cessation Counseling No2 1polysubstance abuse tested positive on UDS outside facility for amphetamines and [id number] admission no family with patient Social History TypeResponse 01/20/2016 [facility] Substance Abuse Use: Past. Type: Cocaine. Recreational Drug Route: Inhaled. Previous Treatment: None.1 Alcohol Current, Type Beer. Frequency: 3-5 times per week. Smoking Status Current every day smoker; Type: Cigarett es; Tobacco use per day: 10; Exposure to Tobacco Smoke None; Cigarette Smoking Last 365 Days Yes; Reg Smoking Cessation Counseling No2 1polysubstance abuse tested positive on UDS outside facility for amphetamines and [id number] admission no family with patient Social History TypeResponse 12/28/2014 [facility] Substance Abuse Use: Current. Type: Cocaine. Previous Treatment: None.1 Alcohol Current, Type Beer. Frequency: 3-5 times per week. Smoking Status Current every day smoker; Type: Cigarett es; Tobacco use per day: 10; Exposure to Tobacco Smoke None; Cigarette Smoking Last 365 Days Yes; Reg Smoking Cessation Counseling No2 1polysubstance abuse tested positive on UDS outside facility for amphetamines and [id number] admission no family with patient Social History TypeResponse 10/27/2014 [facility] Alcohol Current, Type Beer. Frequency: 3-5 times per week. Smoking Status Current every day smoker; Type: Cigarett es; Tobacco use per day: 10; Exposure to Tobacco Smoke None; Cigarette Smoking Last 365 Days Yes; Reg Smoking Cessation Counseling No Family History No Data Provided for This Section Advance Directives No Data Provided for This Section Functional Status No Data Provided for This Section
--- OUTSIDE RECORDS SUMMARY | 2019-10-06 16:24 | XMS REPORT | Continuity of Care Document ---
:1970 Author Organization [facility] t Address [address] [place] [address] Care Team Providers Name Role Phone DR LONI Attending Clinician Unavailable Liam Attending Clinician Johnny Attending Clinician Sebas Beck Attending Clinician Susan Attending Clinician Cristina Attending Clinician Yony Reynolds Jr Attending Clinician DR LONI Admitting Clinician Unavailable Liam Admitting Clinician Shahida Thakkar Admitting Clinician Barry Cunningham Admitting Clinician Susan Admitting Clinician Johnny Admitting Clinician Cristina Admitting Clinician Yony Reynolds Jr Admitting Clinician Problems Condition Condition Condition Status Onset Resolution Last Treating Co mments Source Name Details Category Date Date Treatment Clinician Date SOB Diagnosis Active 2016-05-28 Karie 05-24 08:49:00 Hospita SOB 00:00: l 00 Active 05/24/2016 [facility] STROKE Diagnosis Active 2016-01-22 01-18 08:02:00 [place] STROKE 00:00: Medical 00 Center Active 01/19/2016 [facility] LALITHA Diagnosis Active 2014-052015-04-04 BILLING 06-05 12:06:00 [place] ONLY 00:00: Medical LF#[id number] [facility]ITHA [facility] LF#[id number] Active 04/04/2015 [facility] SEIZURES Diagnosis Active 2014-052015-03-30 M H 05-30 10:49:00 [place] SEIZURES 00:00: Medica l 00 Center Active 03/30/2015 [facility] PNEUMONIA/ Diagnosis Active 2014-052015-05-15 URINARY 0-11 10:23:00 [place] TRACT 00:00: l [place] INFECTION PNEUMONIA/ 00 URINARY TRACT INFECTION Active 02/12/2015 [facility] SEIZURES Diagnosis Active 2014-12-13 M H NARCOLIC 12-11 16:03:00 [place] INTOXICATI SEIZURES 00:00: Me dical ON NARCOLIC 00 Center INTOXICATI ON Active 5 [facility] POSS Diagnosis Active 2014-10-26 SEIZ[place] 10-26 17:58:00 [place] POSS 00:[place]: st SEIZURES 00 Active 10/26/2014 [place] SEIZURE, Diagnosis Active 2016-05-14 M H TODDS 10-26 08:47:00 [place] PARALYSIS SEIZURE, 00:00: st TODDS 00 PARALYSIS Active 10/26/2014 [place] AMS Diagnosis Active 2014-07-20 MH 3-17 02:25:00 [place] AMS 00:00: Medical 00 Center Active 07/19/2014 [facility] LIFE Diagnosis Active 2014-07-19 FLIGHT 3-17 19:50:00 [place] LIFE 00:00: Medical FLIGHT 00 Center Active 07/19/2014 [facility] TODDS Diagnosis Active 2014-07-27 PARALYSIS 3-17 13:07:00 [place] TODDS 00:00: Medical PARALYSIS 00 Center Active 07/19/2014 [facility] LEFT LOWER Diagnosis Active 2012-06-22 BACK PAIN 2-18 13:10:00 [place] LEFT 00:00: Medical LOWER BACK 00 Center PAIN Active 06/22/2012 [facility] VIRAL VS Diagnosis Active 2011-07-10 M H PNEUMONIA -06 13:09:00 [place] SOB VIRAL VS 00:00: Medica l PNEUMONIA 00 Center SOB Active 07/09/2011 [facility] NECK PAIN Diagnosis Active 2009-052012-07-16 1-12 13:00:00 [place] NECK 00:00: Medical PAIN 00 Center Active 03/16/2010 [facility] Shortness Problem Active 2012-06-24 of breath 11:43:02 [place] Medical Shortness Center of breath Active Problem 06/24/2012 [facility] Degenerati Problem Resolve 2012-06-24 ve disc d 11:43:02 [place] disease [facility] Degenerati Center ve disc disease Resolved Problem 06/24/2012 [facility] Emphysema Problem Resolve 2012-06-24 M H d 11:43:02 [facility] [place] [facility] Emphysema Center Resolved Problem 06/24/2012 [facility] HTN - Problem Resolve 2012-06-24 Hypertensi d 11:43:02 [place] HTN - Medical Hypertensi Center on Resolved Problem 06/24/2012 [facility] Meningitis Problem Resolve 2012-06-24 MH d 11:43:02 [facility] [place] [facility] Meningitis Center Resolved Problem 06/24/2012 1spinal a a child [facility] Slipped Problem Resolve 2012-06-24 MH disc d 11:43:02 [place] Slipped Medical disc Center Resolved Problem 06/24/2012 2in neck-- repaired [facility] Emphysema Problem Resolve 2016-01-23 M H (morpholog d 00:57:26 [place] Medical abnormalit Emphysema [place], [place]) (morpholog ic [place] abnormalit st, y) Mem[place] l City Resolved Problem 01/23/2016 [facility], [facility] Final: Problem 2015-02-18 Pneumonia, 07:57:35 [place] ruddy unspecifie Final: l Ci ty d organism Pneumonia, unspecifie d organism 02/18/2015 [facility] Cardiomega Problem Resolve 2016-05-28 ly d 02:08:50 [place] (disorder) Medica l Cardiomega [place] , [place] (disorder) [place] , [place] Resolved [facility], [facility] Hospita l Problem 05/28/2016 [facility], [facility] Intracrani Problem Resolve 2016-05-28 al d 02:08:50 [place] hemorrhage Medica l (disorder) Intracrani Ce nter, al hemorrhage [place] (disorder) st, Memoria l City, Resolved Karie Hospita l Problem 05/28/2016 [facility], [place], [facility] Degenerati Problem Resolve 2016-05-28 on of d 02:08:50 [place] interverte Medica l bral disc Degenerati [place], (disorder) on of interverte [place] bral disc st, (disorder) Memori a l City, [place] Resolved Hospita l Problem 05/28/2016 [facility], [facility] Diabetes Problem Resolve 2016-05-28 mellitus d 02:08:50 [place] (disorder) Diabetes N[place] dical mellitus Center, (disorder) [place] Hospita l Resolved Problem 05/28/2016 [facility] Hypertensi Problem Resolve 2016-05-28 MH ve d 02:08:50 [place] disorder, Medical systemic Hypertensi Cent er, arterial ve (disorder) disorder, Ally sonia systemic st, arterial [place] (disorder) l [facility] , Karie Hospita Resolved l Problem 05/28/2016 [facility], [facility] Meningitis Problem Resolve 2016-05-28 (disorder) d 02:08:50 [facility] Meningitis Center , (disorder) [place] [facility], [facility], [place] Hospita l Problem 05/28/2016 spinal a a child [facility], [facility] Seizure Problem Resolve 2016-05-28 (finding) d 02:08:50 [place] Seizure Medical (finding) Center, [place] Resolved st, [place] [facility], [place] Hospita Problem l 05/28/2016 [facility], [facility] Dyspnea Problem Active 2016-05-28 (finding) 02:08:50 [place] Dyspnea Medical (finding) Center, [place] Active st, [place] City, [place] Hospita Problem l 05/28/2016 [facility], [facility] Interverte Problem Resolve 2016-05-28 bral disc d 02:08:50 [place] prolapse Medical (disorder) Interverte Ce nter, bral disc prolapse [place] (disorder) st, Memoria l City, Resolved [place] Hospita l Problem 05/28/2016 in neck-- repaired [facility], [place], [facility] Traumatic Problem Resolve 2016-05-28 M H brain d 02:08:50 [place] injury Medical (disorder) Traumatic [place], brain [facility] injury Hospita (disorder) l Resolved Problem 05/28/2016 [facility] Hospital SHORTNESS Diagnosis Active 2011-07-10 MH OF BREATH 13:09:00 [facility] OF BREATH Active [facility] FEBRILE Diagnosis Active 2014-12-13 CON[place] 16:03:00 [place] N[place] FEBRILE Medical CONVULSION Center S NOS Active [facility] PNEUMONIA, Diagnosis Active 2015-05-15 UNSPECIFIE 10:23:00 [place] D ORGANISM l [facility] PNEUMONIA, UNSPECIFIE D ORGANISM Active [facility] URINARY Diagnosis Active 2015-05-15 TRACT 10:23:00 [place] INFECTION, URINARY l C ity SITE NOT TRACT SPECIF INFECTION, SITE NOT SPECIF Active [facility] POST Diagnosis Active 2015-05-15 TRAUMATIC 10:23:00 Mem[place] SEIZURES POST l [facility] TRAUMATIC SEIZURES Active [facility] CEREBRAL Diagnosis Active 2016-01-22 M H INFARCTION 08:02:00 [place] , CEREBRAL Medica l UNSPECIFIE INFARCTION Ce nter D , UNSPECIFIE D Active [facility] Discharge Problem 2014-052015-04-02 2015-04-02 Diagnosis: 05-30 01:54:11 [place]54:11 [place] Epileptic 06:00: Medical seizure Discharge Center Diagnosis: Epileptic seizure 03/30/2015 04/02/2015 [facility] Discharge Problem 2014-07-22 2014-07-22 Diagnosis: 3-18 22:34:42 [place]:34:42 [place] Seizure 05:00: Medical Discharge 00 Center Diagnosis: Seizure 07/20/2014 07/22/2014 [facility] Discharge Problem 2014-07-22 2014-07-22 Diagnosis: 3- 22:34:42 22:34:42 [place] Noncomplia 05:00: Medica l nce Discharge Center Diagnosis: Noncomplia nce 07/20/2014 07/22/2014 [facility] Allergies, Adverse Reactions, Alerts Allergy Allergy Status Severity Reaction(s) Onset Inactive Treating Comm ents Source Name Type Date Date Clinician aspirin aspirin Active Memoria l [place] [facility] l morphine morphine Active Memori a l [facility] l penicill penicill Active Memori a ins ins l [place] [facility] l sulfa sulfa Active Memoria drugs drugs l [facility] l Toradol Toradol Active Memoria l [facility] l traMADol traMADol Active Memori a l [place] [facility] l Social History Social Habit Start Date Stop Date Quantity Comments Source Social History 2014-10-27 2014-10-27 [facility] Deana mcgraw 04:42:13 04:42:13 [facility] Medications Ordered Filled Start Stop Current Ordering Indication Dosage Frequency Signature Comments Components Source Medication Medication Date Date Medication? Clinician (SIG) Name Name Acetaminoph Yes 1 tab, PO, Karie en 325 MG / 05-25 Q4-6H, PRN Ho spita Hydrocodone 15:34: Pain Score l Bitartrate 00 6-10, X 5 5 MG Oral day, # 30 Tablet tab, 0 [Wilson Refill(s) 5/325] Sodium No 25 mL, [place] Chloride 05-25 Route: IV, Hospi ta 0.9% IV 08:50: Start l 00 date: 05/25/16 2:50:00 [employer], Duration: 30 day, Stop date: 06/24/16 2:49:00 [employer], PRN Line Flush Acetaminoph No Notes: Do M H Karie en 325 MG / 05-25 not exceed Ho spita Hydrocodone 06:48: 4gm/day of l Bitartrate 00 acetaminop 10 MG Oral hen. Tablet (Same as: [Wilson Wilson 10/325] 325/10) Sodium No 1,000 mL, [place] Chloride 05-25 Rate: 125 Hospit a 0.154 06:46: ml/hr, l MEQ/ML 00 Infuse Injectable over: 8 Solution hr, Route: IV, Dosing Weight 109.091 kg, Total Volume: 1,000, Start date: 05/25/16 0:46:00 [employer], Duration: 30 day, Stop date: 06/24/16 0:45:00 [employer] Levetiracet No Notes: Manju aty am - Same as Hospita 06:46: Keppra l 00 Mix with 100 mL NS, LR or D5W MEDICATION WASTE Product Size: 500 mg Product Wasted: _0__ mg Saline No Notes: DAIANA Karie Flush 0.9% 05-25 (Same as: Hosp israel 06:46: BD l 00 Posiflush) Keppra No Notes: Karie 05-25 Same as Hospita 02:43: Keppra l Mix with 100 mL NS, LR or D5W MEDICATION WASTE Product Size: 500 mg Product Wasted: __0 mg Ativan No 2 mg, Karie 05-25 Route: Hospita 02:23: IVP, Drug l 00 form: INJ, ONCE, Dosing Weight 109.091, kg, Priority: STAT, Start date: 05/24/16 20:23:00 [employer], Stop date: 05/24/16 20:23:00 [employer] Ativan No 2 mg, DAIANA Tiwari 05-25 Route: Hospita 01:49: IVP, Drug l 00 form: INJ, ONCE, Dosing Weight 109.091, kg, Priority: STAT, Start date: 05/24/16 19:49:00 [employer], Stop date: 05/24/16 19:49:00 [employer] Ondansetron No 4 mg, Shabnam vic 05-25 Route: Hospita 01:48: IVP, Drug l 00 form: INJ, ONCE, Dosing Weight 109.091, kg, Priority: STAT, Start date: 05/24/16 19:48:00 [employer], Stop date: 05/24/16 19:48:00 [employer] Dexamethaso No Notes: DAIANA baltazar 05-25 MEDICATION Hospita 01:08: WASTE l 00 Product Size: 10 mg Product Wasted: __0_ mg Valium No Notes: DAIANA Tiwari 05-25 (Same as: Hospita 01:08: Valium) l 00 WASTE: F/P - Black; E - White/Blue Hydromorpho No Notes: DAIANA baltazar 05-24 Same as Hospita 23:23: Dilaudid l 00 Fentanyl No Notes: DAIANA Tiwari 05-24 (Same as: Hospita 22:39: Sublimaze) l Preservat laila free. Sodium 2017-0 No 1,000 mL, MH [place] Chloride 1-20 1,000 Hospita 0.154 22:37: ml/hr, l MEQ/ML 00 Infuse Injectable Over: 1 Solution hr, Route: IV, 1,000, Drug form: INJ, ONCE, Priority: STAT, Dosing Weight 109.091 kg, Start date: 05/24/16 16:37:00 [employer], Duration: 1 doses or times, Stop date: 05/24/16 16:37:00 [employer] Ondansetron No Notes: K aty 1-20 (Same as: Hospita 22:37: Zofran) l 00 MEDICATION WASTE Product Size: 4 mg Product Wasted: _0__ mg Levetiracet Yes 1,000 mg = am 500 MG 01-19 2 tab, PO, [place] Oral Tablet 16:50: BID, # 120 Medical [Keppra] 00 tab, 2 Center Refill(s) Lisinopril No Notes: 01-19 (Same as: [place] 16:49: Prinivil, Medical 00 Zestril) [place] Aspirin 81 No Notes: Do MH MG Enteric 01-19 not crush [place] Coated 14:00: or chew. Medical Tablet 00 (Same As: [place] Ecotrin) Acetaminoph No Notes: en 325 MG / 01-19 (Same as: [place]gio as Hydrocodone 05:46: [place] Medic al Bitartrate 00 325/5) Do Hcula ter 5 MG Oral not exceed Tablet 4gm/day of [Wilson acetaminop 5/325] hen. heparin No Notes: 01-19 porcine [place] 05:00: heparin Medical 00 [place] Tylenol No Notes: Max 01-19 acetaminop [place] 04:11: hen = 4000 Medical 00 mg/day (4 Center gm/day). (Same as: Tylenol) Saline No Notes: Flush 0.9% 01-19 (Same as: [place] 02:00: BD Medical 00 Posiflush) [place] atorvastati No Notes: n 01-19 Same as [place] 02:00: Lipitor Medical 00 [place] Docusate No Notes: 01-19 (Same as: [place] 02:00: Colace) Medical 00 (Do Not Center Crush) Lisinopril No Notes: 01-19 (Same as: [place] 01:58: Prinivil, Medical 00 Zestril) [place] Keppra No Notes: 01-19 Same as [place] 00:46: Keppra Medical Mix with Center 100 mL NS, LR or D5W MEDICATION WASTE Product Size: 500 mg Product Wasted: 0 mg Saline No Notes: Flush 0.9% 01-19 (Same as: [place] 00:43: BD Medical 00 Posiflush) [place] Labetalol No 105 mmHg, 01-19 Priority: [place] 00:43: Routine, Medical 00 Start Center date: 01/19/16 19:43:00 CDT, Duration: 30 day, Stop date: 02/18/16 19:42:00 CDT Bisacodyl No Notes: 01-19 (Same As: [place] 00:43: Dulcolax, Medical Bisco-Lax) [place] iodixanol No 100 mL, 01-18 Route: [place] 23:55: IVP, Drug Medical 00 Form: Center SOLN, Dosing Weight 109, kg, ONCALL, STAT, Start date: 01/19/16 18:55:00 CDT, Duration: 1 doses or times, Dose = 2.2ml/kg, Max dose = 100ml -- "To be infused by Radiology Staff ONLY" Saline No Notes: Flush 0.9% 01-18 (Same as: [place] 23:37: BD Medical 00 Posiflush) [place] Acetaminoph 2014-05 No 1 tab, en 325 MG / 05-30 Route: PO, [place] Hydrocodone 18:41: Drug Form: Medical Bitartrate 00 TAB, [place] 10 MG Oral Dosing Tablet Weight [Wilson 95.455, 10/325] kg, ONCE, STAT, Start date: 03/30/15 12:41:00, Stop date: 03/30/15 12:41:00 potassium 2014-05 No Notes: phosphate-s 05-30 (Same as: Giorgio as odium 18:36: Neutra-Deja Medica l phosphate 00 s) Each Center 250 mg-278 1.25 gm mg-164 mg pkt has oral powder 250mg phosphorou s. Mix w/2.5oz water and stir. Levetiracet 2014-05 Yes 750 mg = 1 am 750 MG 05-30 tab, PO, [place] Oral Tablet 18:11: BID, # 60 M edical [Keppra] 00 tab, 0 Center Refill(s) K-Phos 2014-05 No Route: PO, [facility] 05-30 ONCE, [place] 18:09: Dosing Medical 00 Weight Center 95.455, kg, Start date: 03/30/15 12:09:00, Stop date: 03/30/15 12:09:00 Keppra 2014-05 No 1,500 mg, 05-30 Route: IV, [place] 18:08: ONCE, Medical 00 Dosing Center Weight 95.455, kg, Start date: 03/30/15 12:08:00, Stop date: 03/30/15 12:08:00 Tylenol 2014-05 No 650 mg, 05-30 Route: PO, [place] 16:19: Drug form: Medical 00 TAB, ONCE, Center Dosing Weight 95.455, kg, Priority: STAT, Start date: 03/30/15 10:19:00, Stop date: 03/30/15 10:19:00 Morphine 2014-05 No 4 mg, 05-30 Route: [place] 16:18: IVP, Drug Medical 00 form: INJ, Center ONCE, Dosing Weight 95.455, kg, Priority: STAT, Start date: 03/30/15 10:18:00, Stop date: 03/30/15 10:18:00 Saline 2014-05 No Notes: Flush 0.9% 05-30 Same as: [place] 16:16: BD Medical 00 Posiflush Center Sterile levofloxaci 2014-05 Yes 750 mg = 1 n 750 mg 0-14 tab, PO, Memoria oral tablet 18:38: [id number], # l City 00 5 tab, 0 Refill(s) Valproic 2014-05 Yes 750 mg = 3 Acid 250 MG 0-14 cap, PO, [place] ruddy Oral 18:38: Q12H, # l City Capsule 00 180 cap, 0 Refill(s) remove 2014-05 No Notes: patch 0-14 Remove old Memoria 13:55: patch [facility] before applicatio n of new patch. valproic 2014-05 No Notes: MH acid 0-14 (Same As: [place] 04:00: Depakene) [facility] (Do Not Crush) Ativan 2014-05 No Notes: MH 0-14 (Same as: Memoria 03:24: Ativan) [facility] Nicotine 2014-05 No Notes: MH 0-13 (Same as: [place] 17:07: Habitrol) [facility] "Remove old patch before applicatio n of new patch" Valproic 2014-05 No Notes: MH Acid 250 MG 0-13 (Same As: Mem oria Oral 02:00: Depakene) [facility] Capsule (Do Not Crush) Levaquin 2014-05 No Notes: Do MH 0-12 not give Memoria 23:00: w/antacids [facility] , dairy pdt & minerals Take 1 hr before or 2 hr after dairy products Lorazepam 2014-05 No Notes: MH 0-12 (Same as: Memoria 17:27: Ativan) [facility] Ativan 2014-05 No Notes: MH 0-12 (Same as: Memoria 17:25: Ativan) [facility] fosphenytoi 2014-05 No Notes: MH n 0-12 (Same as: [place] 17:23: Cerebyx) [facility] Stated mg = mgPE. Refriger ate ANTICONVUL MAR Do not confuse with celebrex. MEDICATION WASTE Product Size: 500 mg Product Wasted: 0_ mg Robaxin 2014-05 No Notes: MH 0-12 (Same Memoria 15:16: as:Robaxin [facility] ) Lisinopril 2014-05 No Notes: MH 0-12 (Same as: Memoria 14:00: Prinivil, [facility] Zestril) Valproic 2014-05 No Notes: MH Acid 100 0-12 Dilute in Memori a MG/ML 13:09: at least [facility] Injectable 00 50ml D5W Solution or NS. Infusion rate = 20 mg/min (Same As: Depacon) Acetaminoph 2014-05 No Notes: Do M H en 325 MG / 0-12 not exceed Me moria Hydrocodone 10:09: 4gm/day of [facility] Bitartrate 00 acetaminop 10 MG Oral hen. Tablet (Same as: [Wilson Wilson 10325] 325/10) Phenytoin 2014-05 No Notes: MH 0-12 (Same as: Memoria 08:00: Dilantin) l City Do not infuse greater than 50 mg/min. MEDICATION WASTE Product Size: 100 mg Product Wasted: ___ mg Sodium 2014-05 No 25 mL, MH Chloride 0-12 Route: IV, Memor ia 0.9% IV 04:05: Start l City date: 02/12/15 23:05:00, Duration: 30 day, Stop date: 03/14/15 22:04:00, PRN Line Flush BD Normal 2014-05 No Notes: Saline 0-12 (Same as: Memoria Flush 04:05: BD l Posiflush) potassium 2014-05 No Notes: chloride 0-12 Infuse at [facility] a 03:59: a rate of 10 mEq/hr. (Same as: KCL) potassium 2014-05 No Notes: phosphate-s 0-12 (Same as: Mem oria odium 03:59: Neutra-Deja [facility] phosphate 00 s) Each 250 mg-278 1.25 gm mg-164 mg pkt has oral powder 250mg phosphorou s. Mix w/2.5oz water and stir. potassium 2014-05 No Notes: phosphate + 0-12 (Same as: Mem oria Sodium 03:59: K l City Chloride 00 Phosphate. 0.9% IV 250 ) 1 mMol mL phoshate has 1.47 mEq potassium Infuse over 4 hours sodium 2014-05 No 15 mmol, 5 MH phosphate + 0-12 mL, Route: Me moria Sodium 03:59: IVPB, PRN, l Cit y Chloride 00 Dosing 0.9% IV 250 Weight mL 86.3, kg, PRN Abnormal Lab Result, For NON-ICU Patients Only., Start date: 02/12/15 22:59:00, Duration: 30 day, Stop date: 03/14/15 21:58:00 Magnesium 2014-05 No 1 gm, 100 MH Sulfate 0-12 mL, Route: Memori a 03:59: IVPB, Drug l City form: INJ, PRN, Dosing Weight 86.3, kg, PRN Abnormal Lab Result, For NON-ICU Patients Only., Start date: 02/12/15 22:59:00, Duration: 30 day, Stop date: 03/14/15 21:58:00 Calcium 2014-05 No 2 gm, 20 MH Gluconate 0-12 mL, Route: [place] ruddy 03:59: IVPB, PRN, [facility] Dosing Weight 86.3, kg, PRN Abnormal Lab Result, For NON-ICU Patients Only., Start date: 02/12/15 22:59:00, Duration: 30 day, Stop date: 03/14/15 21:58:00 Magnesium 2014-05 No Notes: MH Oxide 0-12 (Same as: Memoria 03:59: Mag-Ox [facility] 400) Magnesium oxide [id number] g elemental magnesium Dose=____m g magnesium oxide (___mg elemental magnesium) Zosyn 2014-05 No Notes: MH 0-12 (Same as: Memoria 02:00: Zosyn) [facility] Dosing based on Piperacill in component MEDICATION WASTE Product Size: 4500 mg Product Wasted: 0 mg Docusate 2014-05 No Notes: MH 0-12 (Same as: Memoria 01:34: Colace) [facility] (Do Not Crush) Ondansetron 2014-05 No Notes: MH 0-12 (Same as: Memoria 01:34: Zofran) [facility] MEDICATION WASTE Product Size: 4 mg Product Wasted: ___ mg Acetaminoph 2014-05 No Notes: Do M H en 0-12 not exceed Memoria 01:34: 4 gm/day. [facility] (Same as: Tylenol) Lorazepam 2014-05 No Notes: MH 0-12 (Same as: Memoria 01:30: Ativan) [facility] Vancomycin 2014-05 No Notes: MH 0-12 TIME Memoria 00:00: CRITICAL [facility] MEDICATION NS 1,000 mL 2014-05 No 1,000 mL, M H 0-11 Rate: 125 Memoria 23:32: ml/hr, [facility] Infuse over: 8 hr, Route: IV, Dosing Weight 89.008 kg, Total Volume: 1,000, Start date: 02/12/15 18:32:00, Duration: 30 day, Stop date: 03/14/15 18:31:00 potassium 2014-0 No Notes: MH phosphate-s 8-12 (Same as: Giorgio as odium 14:52: Neutra-Deja Medica l phosphate 00 s) Each Center 250 mg-278 1.25 gm mg-164 mg pkt has oral powder 250mg phosphorou s. Mix w/2.5oz water and stir. magnesium 2014- No 2 gm, 50 MH sulfate 2 8-12 mL, Route: [place] gm in [place] 14:52: IVPB, Drug Medical 50 ml 00 form: INJ, Center ONCE, Dosing Weight 89.008, kg, Start date: 12/14/14 9:52:00, Duration: 2 hr, Stop date: 12/14/14 9:52:00 Folic Acid Yes 1 mg = 1 MH 1 MG Oral 8-12 tab, PO, [place] Tablet 13:18: Daily, # Medical 00 30 tab, 2 Center Refill(s) thiamine Yes 100 mg = 1 MH 100 mg oral 8-12 tab, PO, [place] tablet 13:18: Daily, # Medical 00 30 tab, 2 Center Refill(s) Valproic Yes 500 mg = 2 MH Acid 250 MG 8-12 cap, PO, [place] Oral 13:18: Q12H, # Medical Capsule 00 120 cap, 2 Center Refill(s) cefpodoxime Yes Special MH 100 mg oral 8-12 In[place]io [place] tablet 13:18: ns: Take Medical 00 until all Center pills are gone. Neutra-Phos No Notes: MH 8-12 (Same as: [place] 11:12: Neutra-Deja Medical 00 s) Each Center 1.25 gm pkt has 250mg phosphorou s. Mix w/2.5oz water and stir. Magnesium 2014- No 2 gm, 50 MH Sulfate 8-12 mL, Route: [place] 11:12: IVPB, Drug Medical 00 form: INJ, Center ONCE, Dosing Weight 89.008, kg, Start date: 12/14/14 6:12:00, Duration: 2 hr, Stop date: 12/14/14 6:12:00 cefpodoxime No Notes: MH 8-11 With food. [place] 18:00: (Same As: Medical 00 Vantin) Center Levofloxaci No Notes: Do M H n 8 not give [place] 17:00: w/antacids Medical 00 , dairy Center pdt & minerals Take 1 hr before or 2 hr after dairy pdt (Same as:Levaqui n) Ativan No Notes: 8- (Same as: [place] 15:22: Ativan) Medical 00 Center Folic Acid No Notes: 8- (Same as: [place] 14:00: Folvite) Medical 00 Center multivitami No Notes: n 8- (Same [place] 14:00: as:Thera) Medical 00 Take with Center food. Thiamine No Notes: 8 (Same As: [place] 14:00: Vitamin Medical 00 B1) Center Acetaminoph No Notes: Do M H en 325 MG / 8-10 not exceed [place] Hydrocodone 22:00: 4gm/day of Medical Bitartrate [address] 10 MG Oral hen. Tablet (Same as: [Wilson Wilson 10/325] 325/10) Lorazepam No Notes: 8-10 (Same as: [place] 16:26: Ativan) Medical 00 Center Fentanyl No Notes: 8-10 (Same as: [place] 14:25: Sublimaze) Medical 00 Preservat Center laila free. Valproic No Notes: Acid 250 MG 8-10 (Same As: Giorgio as Oral 14:00: Depakene) Medical Capsule 00 (Do Not Center Crush) Docusate No Notes: Sodium 50 8-10 (Same as [place] MG / 14:00: Senokot-S) Medical sennosides, 00 Equiv. to Ce nter [facility] 8.6 MG Di-Colac Oral Tablet e. heparin No Notes: 8-10 porcine [place] 13:00: heparin Medical 00 Center Sodium No 1,000 mL, Chloride 8-10 Rate: 125 [place] 0.154 09:51: ml/hr, Medical MEQ/ML 00 Infuse Center Injectable over: 8 Solution hr, Route: IV, Dosing Weight 89.9 kg, Total Volume: 1,000, Start date: 12/12/14 4:51:00, Duration: 30 day, Stop date: 01/11/15 4:50:00 Saline No Notes: Flush 0.9% 8-10 Same as: [place] 09:51: BD Medical 00 Posiflush Center Sterile Valproic No Notes: Acid 100 8-10 Dilute in [place] MG/ML 09:51: at least Medical Injectable 00 50ml D5W Cente r Solution or NS. Infusion rate = 20 mg/min (Same As: Depacon) Lorazepam No Notes: MH 8-10 (Same as: [place] 09:51: Ativan) Medical 00 Center Doxycycline Yes 100 mg = 1 MH 100 MG Oral 6-25 cap, PO, [place] Capsule 19:56: Daily, X 7 st 00 day, # 7 cap, 0 Refill(s) normal No 1,000 mL, saline 0.9% 6-25 Rate: 100 Ally sonia IV 1,000 mL 15:08: ml/hr, st Infuse over: 10 hr, Route: IV, Dosing Weight 86.364 kg, Total Volume: 1,000, Start date: 10/27/14 10:08:00, Duration: 30 day, Stop date: 11/26/14 10:07:00 Lisinopril No Notes: MH 6-25 (Same as: [facility] 14:00: Prinivil, st 00 Zestril) Vyvanse No 70 mg, MH 6-25 Route: PO, 14:00: Drug Form: st 00 CAP, Dosing Weight 86.364, kg, QAM, Start date: 10/27/14 9:00:00, Duration: 30 day, Stop date: 11/25/14 9:00:00 Divalproex No Notes: Sodium 250 6-25 (Same as: [place] MG Enteric 14:00: Depakote st Coated 00 Delayed Tablet Release) [Depakote] Do not confuse with the extended-r elease tablet. Delayed absorption , enteric coated tablet. Do not crush Celexa No 10 mg, 1 MH 6-25 tab, [place] 14:00: Route: PO, st 00 Drug form: TAB, Daily, Dosing Weight 86.364, kg, Start date: 10/27/14 9:00:00, Duration: 30 day, Stop date: 11/25/14 9:00:00 Patient's No Patient's MH own med 10-27 own med [facility] Vynase 70mg 14:00: Vynase st 00 70mg, 1 cap, Drug form: MISC, Route: PO, QAM, 10/27/14 9:00:00, Duration: 30 day, Stop date: 11/25/14 9:00:00 Acetaminoph No Notes: Do M H en 325 MG / 10-27 not exceed [place] Hydrocodone 12:41: 4gm/day of st Bitartrate 00 acetaminop 10 MG Oral hen. Tablet (Same as: [Wilson Wilson 10/325] 325/10) nitroglycer No Notes: MH in 0.4 mg 10-27 (Same [facility] sublingual 04:28: as:Nitroqu s t tablet 00 ick, Nitrostat) "Do Not Crush" Sublingual tablet atropine No 0.5 mg, 5 MH 6-25 mL, Route: [facility] 04:28: IVP, Drug st 00 form: INJ, PRN, PRN Bradycardi a, Start date: 10/26/14 23:28:00, Duration: 30 day, Stop date: 11/25/14 23:27:00 Lorazepam No 1 mg, 10-26 Route: [facility] 23:06: IVP, Drug st 00 form: INJ, ONCE, Dosing Weight 86.364, kg, PRN as needed for anxiety, Start date: 10/26/14 18:06:00 Dilantin No 1,000 mg, 10-26 Route: [facility] 22:59: IVPB, st 00 ONCE, Dosing Weight 86.364, kg, Priority: STAT, Start date: 10/26/14 17:59:00, Stop date: 10/26/14 17:59:00 Lorazepam No 2 mg, 10-26 Route: [facility] 22:49: IVP, Drug st 00 form: INJ, ONCE, Dosing Weight 86.364, kg, Priority: STAT, Start date: 10/26/14 17:49:00, Stop date: 10/26/14 17:49:00 Acetaminoph No 1 tab, en 325 MG / 24 Route: PO, [place] Hydrocodone 22:12: Drug Form: st Bitartrate 00 TAB, 5 MG Oral Dosing Tablet Weight [Wilson 86.364, 5/325] kg, ONCE, STAT, Start date: 10/26/14 17:12:00, Stop date: 10/26/14 17:12:00 Ativan No 2 mg, MH 24 Route: IM, [place] 21:00: Drug form: st 00 INJ, ONCE, Dosing Weight 86.364, kg, Priority: STAT, Start date: 10/26/14 16:00:00, Stop date: 10/26/14 16:00:00 Saline No Notes: Flush 0.9% 10-26 (Same as: Terrance preciado 20:35: BD st 00 Posiflush) Divalproex Yes 250 mg = 1 M H Sodium 250 3-18 tab, PO, [place] MG Enteric 15:18: TID, # 90 Me dical Coated 00 tab, 0 Center Tablet Refill(s) [Depakote] methocarbam Yes 750 mg = 1 ol 750 mg 3-18 tab, PO, [place] oral tablet 15:08: TID, # 15 M edical 00 tab, 0 Center Refill(s) Lisinopril No Notes: 3-18 (Same as: [place] 14:00: Prinivil, Medical 00 Zestril) Center Divalproex No Notes: Sodium 250 -18 (Same as: [place] Enter[place] 14:00: Depakote Med ical Coated 00 Delayed Center Tablet Release) [Depakote] Do not confuse with the extended-r elease tablet. Delayed absorption , enteric coated tablet. Do not crush Soma No 350 mg, MH 3-18 Route: PO, [place] 14:00: Drug form: Medical 00 TAB, TID, Center Dosing Weight 85, kg, Start date: 07/20/14 9:00:00, Duration: 30 day, Stop date: 08/18/14 17:00:00 Robaxin No Notes: MH 3-18 (Same [place] 14:00: as:Robaxin Medical 00 ) Center Lovenox No Notes: MH 3-18 (Same as: [place] 10:00: Lovenox) Medical 00 Center Diazepam No Notes: MH 3-18 (Same as: [place] 09:41: Valium) Medical 00 Center Acetaminoph No Notes: Do M H en 325 MG / 3-18 [place] Hydro[place]one 09:41: 4gm/day of Medical Bitartrate [address] 10 MG Oral hen. Tablet (Same as: [Wilson Wilson 10/325] 325/10) lisdexamfet Yes 70 mg = 1 M H amine 3-18 cap, PO, [place] dimesylate 09:38: QAM, ADHD, M edical 70 MG Oral 00 0 Center Capsule Refill(s) [Vyvanse] Clonidine No 0.1 mg, MH Hydrochlori 3-18 PO, BID, [place] de 0.1 MG 09:38: Elevated Medi pablito Oral Tablet 00 BP, # 60 Cent er tab, 0 Refill(s) lisinopril Yes 40 mg = 1 MH 40 mg oral 3-18 tab, PO, [place] tablet 09:38: Daily, # Medical 00 30 tab, 0 Center Refill(s) diazepam 10 Yes 10 mg = 1 M H mg oral 3-18 tab, PO, [place] tablet 09:38: TID, Medical 00 Anxiety, 0 Center Refill(s) Carisoprodo Yes 350 mg = 1 MH l 350 MG 3-18 tab, PO, [place] Oral Tablet 09:38: TID, # 21 M edical [Soma] 00 tab, 0 Center Refill(s) Acetaminoph Yes 1 tab, PO, MH en 325 MG / 3-18 Q4H, [place] Hydro[place] 09:38: pain, # 24 Medical Bitartrate 00 tab, 0 Center 10 MG Oral Refill(s) Tablet [Wilson 10/325] Divalproex Yes 250 mg = 1 M H Sodium 250 3-18 tab, PO, [place] MG Enteric 09:38: TID, # 270 M edical Coated 00 tab, 0 Center Tablet Refill(s) [Depakote] Lorazepam No Notes: MH 3-18 (Same as: [place] 09:37: Ativan) Medical 00 Center Acetaminoph No Notes: MH en 325 MG / -18 (Same as: [facility] as Hydrocodone 06:40: Wilson Medic al Bitartrate 00 325/5) Do [place] 5 MG Oral not exceed Tablet 4gm/day of acetaminop hen. Divalproex No 250 mg = 1 M H Sodium 250 -18 tab, PO, [place] MG Enteric 05:46: BID, # 30 Me dical Coated 00 tab, 0 Center Tablet Refill(s) [Depakote] Keppra No 500 mg, MH 3-18 Route: IV, [place] 02:06: ONCE, Medical 00 Dosing Center Weight 85, kg, Start date: 07/19/14 21:06:00, Stop date: 07/19/14 21:06:00 Magnesium No 1 gm, 100 MH Sulfate 3-18 mL, Route: [place] 01:13: IVPB, Drug Medical 00 form: INJ, Center ONCE, Dosing Weight 85, kg, Priority: STAT, Start date: 07/19/14 20:13:00, Stop date: 07/19/14 20:13:00 Valproic No Notes: MH Acid 100 -18 Dilute in [place] MG/ML 01:13: at least Medical Injectable 00 50ml D5W Cente r Solution or NS. Infusion rate = 20 mg/min (Same As: Depacon) Dilaudid No 1 mg, MH 3-17 Route: [place] 23:47: IVP, ONCE, Medical 00 Dosing Center Weight 85, kg, Priority: STAT, Start date: 07/19/14 18:47:00, Stop date: 07/19/14 18:47:00 Saline No Notes: MH Flush 0.9% 07-19 (Same as: [facility] 22:48: BD Medical 00 Posiflush) [place] Sodium No 1,000 mL, MH Chloride 3-17 Infuse [place] 0.154 22:48: Over: 1 Medical MEQ/ML 00 hr, Route: Center Injectable IV, ONCE, Solution Priority: STAT, kg, Start date: 07/19/14 17:48:00, Duration: 1 doses or times, Stop date: 07/19/14 17:48:00 Wilson 5/325 Yes Yih-Chowdary 1 tab, PO, MH oral tablet 2-18 Chen Q4-6H, [place] 23:04: PRN, 21 Medical 37 tab, as Center needed for pain, Substituti on Allowed, Maintenanc e Flexeril 10 Yes Yih-Chowdary 10 mg, 1 MH mg oral 2-18 Chen tab, PO, [place] tablet 23:04: TID, PRN, Medica l 28 30 tab, Center for spasm, Substituti on Allowed, TAB naproxen Yes Yih-Chowdary 500 mg, 1 MH 500 mg oral 2-18 Hcen tab, PO, [place] tablet 23:04: BID, PRN, Medica l 22 30 tab, Center Pain, Substituti on Allowed morphine No Yih-Chowdary 6 mg, 1.5 MH Sulfate 2-18 Chen mL, Route: [place] 20:32: IM, Drug Medical 00 form: INJ, Center ONCE, Dosing Weight 93.182, kg, Priority: STAT, Start date: 06/22/12 14:32:00, Stop date: 06/22/12 14:32:00 Valium No Yih-Chowdary 10 mg, 1 MH 2-18 Chen tab, [place] 20:32: Route: PO, Medical 00 Drug form: Center TAB, ONCE, Dosing Weight 93.182, kg, Priority: STAT, Start date: 06/22/12 14:32:00, Stop date: 06/22/12 14:32:00 Wilson Yes Janae Hernández 1 tab, PO, MH 10/325 oral 3-09 Q6H, PRN, [facility] as tablet 18:20: 24 tab, Medical 50 for pain, Center Substituti on Allowed, Maintenanc e acetaminoph No Ju-un 2 tab, MH en-hydrocod 07-10 [place] Route: PO, [place] one 325 17:20: Park Drug Form: Medi pablito mg-10 mg 00 TAB, Q6H, Center oral tablet PRN as needed for pain, Start date: 07/11/11 11:20:00, Duration: 30 day, Stop date: 08/10/11 11:19:00 azithromyci 2012-0 No Janae Hernández 250 mg, 1 MH n 250 mg 3-08 tab, [place] oral tablet 15:00: Route: PO, Medical 00 Drug form: Center TAB, BID, Start date: 07/11/11 9:00:00, Duration: 4 day, Stop date: 07/14/11 17:00:00 azithromyci 2012-0 No Janae Hernández 500 mg, 2 MH n 250 mg 3-07 tab, [place] oral tablet 23:00: Route: PO, Medical 00 Drug form: Center TAB, ONCE, Start date: 07/10/11 17:00:00, Stop date: 07/10/11 17:00:00 azithromyci 2012-0 No Janae Hernández 500 mg, 2 MH n 3- tab, [place] 21:00: Route: PO, Medical 00 Drug form: Center TAB, [id number], Start date: 07/10/11 15:00:00, Duration: 3 day, Stop date: 07/12/11 15:00:00 Tessalon 2012-0 No Ju-un 200 mg, 2 MH Perles 3- [place] cap, [place] 15:00: [place] Route: PO, Medical 00 Drug form: [place] CAP, TID, Start date: 07/10/11 9:00:00, Duration: 30 day, Stop date: 08/08/11 17:00:00 lisinopril 2011-0 No Ju-un 20 mg, 1 MH 3- [place] tab, [place] 15:00: [place] Route: PO, Medical 00 Drug form: Center TAB, Daily, Start date: 07/10/11 9:00:00, Duration: 30 day, Stop date: 08/08/11 9:00:00 Celexa 2011-0 No Ju-un 10 mg, 0.5 MH 3- [place] tab, [place] 15:00: [place] Route: PO, Medical 00 Drug form: Center TAB, Daily, Start date: 07/10/11 9:00:00, Duration: 30 day, Stop date: 08/08/11 9:00:00 Abilify 2011-0 No Ju-un 6 mg, 3 MH 3- [place] tab, [place] 15:00: [place] Route: PO, Medical 00 Drug form: Center TAB, Daily, Start date: 07/10/11 9:00:00, Duration: 30 day, Stop date: 08/08/11 9:00:00 nicotine 2011- No Ju-un 21 mg, 1 3- [place] patch, [place] 15:00: [place] Route: Medical 00 TOP, Drug Center form: ERFILM, Daily, Start date: 07/10/11 9:00:00, Duration: 30 day, Stop date: 08/08/11 9:00:00 acetylcyste No Ju-un 600 mg, 3 ine 20% 07-09 [place] ml, Route: [place] inhalation 08:00: [place] NEB, Drug Me dical solution 00 Form: Center SOLN, RQ6H, Start date: 07/10/11 2:00:00, Stop date: 08/08/11 20:00:00 albuterol-i No Ju-un 3 ml, pratropium 07-09 [place] Route: [place] 2.5-0.5 mg 08:00: [facility], Drug Me dical inhalation 00 Form: Center solution SOLN, RQ6H, Start date: 07/10/11 2:00:00, Duration: 30 day, Stop date: 08/08/11 20:00:00 Mucinex No Ju-un 600 mg, 1 3- [place] tab, [place] 03:00: [place] Route: PO, Medical 00 Drug form: [place] ERTAB, Q12H, Start date: 07/09/11 21:00:00, Duration: 30 day, Stop date: 08/08/11 9:00:00 azithromyci No Ju-un 500 mg, n 3-07 [place] Route: PO, [place] 03:00: [place] Drug form: Medical 00 TAB, Center [id number], Start date: 07/09/11 21:00:00, Duration: 30 day, Stop date: 08/07/11 21:00:00 tuberculin No Ju-un 5 unit, purified 3 [place] 0.1 mL, [place] protein 02:47: [place] Route: Medical derivative 00 INTRADERM, [place] [address] 5 ONCE, tuberculin Start units/0.1 date: mL 07/09/11 intradermal 20:47:00, solution Stop date: 07/09/11 20:47:00 hydrALAZINE No Ju-un 10 mg, 0.5 MH 3-07 [place] mL, Route: [place] 02:42: Josselin IV, Drug Medical 00 form: INJ, Center Q4H, PRN Hypertensi on, Start date: 07/09/11 20:42:00, Duration: 30 day, Stop date: 08/08/11 20:41:00, SBP greater than 150 Valium No Ju-un 10 mg, 1 MH 3-07 [place] tab, [place] 02:37: [place] Route: PO, Medical 00 Drug form: Center TAB, TID, PRN as needed for anxiety, Start date: 07/09/11 20:37:00, Duration: 30 day, Stop date: 08/08/11 20:36:00 Wilson No Ju-un 2 tab, MH 10/325 oral -Novian Route: PO, [place] tablet 02:36: [place] Drug Form: Medic al 00 TAB, Q6H, Center PRN as needed for pain, Start date: 07/09/11 20:36:00, Stop date: 08/08/11 20:35:00 ondansetron No Ju-un 4 mg, 2 MH 3-07 [place] mL, Route: [place] 02:34: [place] IVP, Drug Medical 00 form: INJ, Center Q6H, PRN Nausea & Vomiting, Start date: 07/09/11 20:34:00, Duration: 30 day, Stop date: 08/08/11 20:33:00 docusate No Ju-un 100 mg, 1 MH 3-07 [place] cap, [place] 02:34: [place] Route: PO, Medical 00 Drug form: Center CAP, BID, PRN Constipati on, Start date: 07/09/11 20:34:00, Duration: 30 day, Stop date: 08/08/11 20:33:00 morphine 0 No Ju-un 2 mg, 1 MH Sulfate 3-07 [place] mL, [facility] [place] IVP, Drug Medical 00 form: INJ, Center Q4H, PRN Pain, Start date: 03/06/12 20:32:00, Duration: 30 day, Stop date: 08/08/11 20:31:00 azithromyci 2011- No Shan Jeremias 500 mg, n 3-07 Vu Route: [place] 00:08: IVPB, Medical 00 ONCE, Center Priority: STAT, Start date: 07/09/11 18:08:00, Stop date: 07/09/11 18:08:00 Celexa 2011- Yes Ju-un PO, Daily, 3-06 [place] Substituti [place] 23:28: [place] on Allowed Medical 24 [place] azithromyci No Brittany M 500 mg, n 3-06 [place] Route: PO, [place] 23:26: ONCE, Medical 00 Priority: [place] STAT, Start date: 07/09/11 17:26:00, Stop date: 07/09/11 17:26:00 Unknown 2011- No PO, Home -06 Substituti [place] Medication 23:25: on Medical 53 Allowed, [place] prnprn Abilify 2011- No Ju-un PO, Daily, 3-06 [place] Substituti [place] 23:23: [place] on Allowed Medical 42 [place] Valium 10 2011- No Ju-un 10 mg, 1 MH mg oral 07-08 [place] tab, PO, [place] tablet 23:23: [place] TID, PRN, Medica l 33 Anxiety, [place] Substitut on Allowed, TAB albuterol No Shan Jeremias 2.49 mg, 3 MH 0.083% 306 Vu mL, Route: [place] inhalation 23:09: NEB, Drug Me dical solution 00 form: [place] SOLN, Q15Min, Priority: STAT, Start date: 07/09/11 17:09:00, Duration: 3 doses or times, Stop date: 07/09/11 17:39:00 Rocephin 2011- No Ju-un 1 gm, MH 3-06 [place] Route: [place] 23:00: [place] IVPB, Drug Medical 00 form: [place] PDR/INJ, [id number], Start date: 07/09/11 17:00:00, Duration: 30 day, Stop date: 08/07/11 17:00:00 Sodium 2011- No Shan Jeremias 500 mL, Chloride -06 Vu Rate: 500 [place] 0.9% 22:18: ml/hr, Medical ([place]) IV 00 Infuse Center 500 mL over: 1 hr, Route: IV, Total Volume: 500, [place] Dose, Priority: STAT, Start date: 07/09/11 16:18:00, Duration: 1 doses or times, Stop date: 07/09/11 17:17:00 Vital Signs Vital Name Observation Time Observation Value Comments Source Respitory Rate 2016-05-25 18:45:00 [facility] Heart Rate 2016-05-25 18:45:00 [facility] Systolic (mm Hg) 2016-05-25 18:45:00 [facility] Diastolic (mm Hg) 2016-05-25 18:45:00 [facility] Temperature Oral (F) 2016-05-25 18:45:00 97.8 F [facility] Respitory Rate 2016-05-25 14:40:00 [facility] Systolic (mm Hg) 2016-05-25 14:40:00 [facility] Diastolic (mm Hg) 2016-05-25 14:40:00 [facility] Heart Rate 2016-05-25 14:40:00 [facility] Temperature Oral (F) 2016-05-25 14:40:00 97.9 F [facility] Respitory Rate 2016-05-25 08:17:00 [facility] Heart Rate 2016-05-25 08:17:00 [facility] Temperature Oral (F) 2016-05-25 08:17:00 97.6 F [facility] Systolic (mm Hg) 2016-05-25 08:17:00 [facility] Diastolic (mm Hg) 2016-05-25 08:17:00 [facility] Weight 2016-05-25 07:05:00 [facility] BMI Calculated 2016-05-25 07:05:00 [facility] Height 2016-05-25 07:05:00 182.88 cm [facility] Weight 2016-05-24 21:49:00 [facility] BMI Calculated 2016-05-24 21:49:00 [facility] Height 2016-05-24 21:49:00 182.88 cm [facility] Systolic (mm Hg) 2016-01-20 19:00:00 [facility] Diastolic (mm Hg) 2016-01-20 19:00:00 [facility] Respitory Rate 2016-01-20 19:00:00 [facility] Systolic (mm Hg) 2016-01-20 18:00:00 [facility] Diastolic (mm Hg) 2016-01-20 18:00:00 [facility] Respitory Rate 2016-01-20 18:00:00 [facility] Respitory Rate 2016-01-20 17:00:00 [facility] Systolic (mm Hg) 2016-01-20 17:00:00 [facility] Diastolic (mm Hg) 2016-01-20 17:00:00 [facility] Temperature Oral (F) 2016-01-20 03:30:00 96.2 F [facility] BMI Calculated 2016-01-20 03:12:00 [facility] Height 2016-01-20 03:12:00 182.88 cm [facility] Weight 2016-01-20 03:12:00 [facility] Heart Rate 2016-01-20 01:45:00 [facility] Temperature Oral (F) 2016-01-20 00:00:00 96.9 F [facility] Weight 2016-01-19 23:26:00 [facility] BMI Calculated 2016-01-19 23:26:00 [facility] Height 2016-01-19 23:26:00 182.88 cm [facility] Heart Rate 2016-01-19 23:26:00 [facility] Systolic (mm Hg) 2015-03-30 19:15:00 [facility] Diastolic (mm Hg) 2015-03-30 19:15:00 [facility] Temperature Oral (F) 2015-03-30 19:15:00 97.6 F [facility] Respitory Rate 2015-03-30 19:15:00 [facility] Systolic (mm Hg) 2015-03-30 18:01:00 [facility] Di[facility] (mm Hg) 2015-03-30 18:01:00 [facility] Respitory Rate 2015-03-30 18:01:00 [facility] Systolic (mm Hg) 2015-03-30 17:11:00 [facility] Diastolic (mm Hg) 2015-03-30 17:11:00 [facility] Heart Rate 2015-03-30 17:11:00 [facility] Respitory Rate 2015-03-30 17:11:00 [facility] Weight 2015-03-30 16:12:00 [facility] BMI Calculated 2015-03-30 16:12:00 [facility] Height 2015-03-30 16:12:00 180.34 cm [facility] Temperature Oral (F) 2015-03-30 16:12:00 97.9 F [facility] Heart Rate 2015-03-30 16:12:00 [facility] Respitory Rate 2015-02-15 10:20:00 [facility] Systolic (mm Hg) 2015-02-15 10:00:00 [facility] Diastolic (mm Hg) 2015-02-15 10:00:00 [facility] Respitory Rate 2015-02-15 09:00:00 [facility] Respitory Rate 2015-02-15 08:00:00 [facility] Systolic (mm Hg) 2015-02-15 06:00:00 [facility] Diastolic (mm Hg) 2015-02-15 06:00:00 [facility] Systolic (mm Hg) 2015-02-15 05:00:00 [facility] Diastolic (mm Hg) 2015-02-15 05:00:00 [facility] Temperature Oral (F) 2015-02-15 03:08:00 99.0 F [facility] Temperature Oral (F) 2015-02-14 03:00:00 98.7 F [facility] Temperature Oral (F) 2015-02-14 01:00:00 98.1 F [facility] BMI Calculated 2015-02-13 00:55:00 [facility] Height 2015-02-13 00:55:00 182.88 cm [facility] Weight 2015-02-13 00:55:00 [facility] Systolic (mm Hg) 2014-12-14 17:00:00 [facility] Diastolic (mm Hg) 2014-12-14 17:00:00 [facility] Respitory Rate 2014-12-14 17:00:00 [facility] Respitory Rate 2014-12-14 16:03:00 [facility] Respitory Rate 2014-12-14 16:02:00 [facility] Systolic (mm Hg) 2014-12-14 15:51:00 [facility] Center Diastolic (mm Hg) 2014-12-14 15:51:00 [facility] Systolic (mm Hg) 2014-12-14 15:42:00 [facility] Center Diastolic (mm Hg) 2014-12-14 15:42:00 [facility] Temperature Oral (F) 2014-12-14 12:49:00 96.2 F [facility] Temperature Oral (F) 2014-12-14 11:14:00 97.0 F [facility] Temperature Oral (F) 2014-12-14 05:58:00 97.0 F [facility] Heart Rate 2014-12-13 15:30:00 [facility] Heart Rate 2014-12-13 15:20:00 [facility] Weight 2014-12-12 23:59:00 [facility] Height 2014-12-12 09:52:00 182.88 cm [facility] Weight 2014-12-12 09:52:00 [facility] BMI Calculated 2014-12-12 09:52:00 [facility] BMI Calculated 2014-12-12 09:50:00 [facility] Weight 2014-12-12 09:50:00 [facility] Height 2014-12-12 09:50:00 182.88 cm [facility] Heart Rate 2014-10-27 17:00:00 [facility] Respitory Rate 2014-10-27 17:00:00 [facility] Systolic (mm Hg) 2014-10-27 17:00:00 [facility] Diastolic (mm Hg) 2014-10-27 17:00:00 [facility] Temperature Oral (F) 2014-10-27 17:00:00 98.0 F [facility] Heart Rate 2014-10-27 13:00:00 [facility] Respitory Rate 2014-10-27 13:00:00 [facility] Systolic (mm Hg) 2014-10-27 13:00:00 [facility] Diastolic (mm Hg) 2014-10-27 13:00:00 [facility] Temperature Oral (F) 2014-10-27 13:00:00 98.0 F [facility] Respitory Rate 2014-10-27 12:51:00 [facility] Systolic (mm Hg) 2014-10-27 09:19:00 [facility] Diastolic (mm Hg) 2014-10-27 09:19:00 [facility] Heart Rate 2014-10-27 09:19:00 [facility] Temperature Oral (F) 2014-10-27 09:19:00 98.5 F [facility] Height 2014-10-27 05:00:00 182.88 cm [place] Weight 2014-10-27 05:00:00 [facility] BMI Calculated 2014-10-27 05:00:00 [facility] BMI Calculated 2014-10-26 20:37:00 [facility] Height 2014-10-26 20:37:00 182.88 cm [facility] Weight 2014-10-26 20:37:00 [facility] Systolic (mm Hg) 2014-07-20 17:00:00 [facility] Center Diastolic (mm Hg) 2014-07-20 17:00:00 [facility] Respitory Rate 2014-07-20 17:00:00 [facility] Systolic (mm Hg) 2014-07-20 16:00:00 [facility] Center Diastolic (mm Hg) 2014-07-20 16:00:00 [facility] Respitory Rate 2014-07-20 16:00:00 [facility] Respitory Rate 2014-07-20 15:00:00 [facility] Systolic (mm Hg) 2014-07-20 14:30:00 [facility] Center Diastolic (mm Hg) 2014-07-20 14:30:00 [facility] Temperature Oral (F) 2014-07-20 11:17:00 98.0 F [facility] Temperature Oral (F) 2014-07-20 07:31:00 98.1 F [facility] Heart Rate 2014-07-20 07:31:00 [facility] Heart Rate 2014-07-20 04:52:00 [facility] Temperature Oral (F) 2014-07-20 04:52:00 97.5 F [facility] Heart Rate 2014-07-20 01:43:00 [facility] BMI Calculated 2014-07-19 22:35:00 [facility] Weight 2014-07-19 22:35:00 [facility] Height 2014-07-19 22:35:00 182.88 cm [facility] Weight 2012-06-22 18:48:00 [facility] Height 2012-06-22 18:48:00 182.88 cm [facility] Weight 2012-03-01 01:01:00 [facility] Height 2012-03-01 01:01:00 182.88 cm [facility] Diastolic (mm Hg) 2011-07-12 15:00:00 [facility] Systolic (mm Hg) 2011-07-12 15:00:00 [facility] Respitory Rate 2011-07-12 15:00:00 [facility] Temperature Oral (F) 2011-07-12 15:00:00 98.4 F [facility] Respitory Rate 2011-07-12 11:00:00 [facility] Diastolic (mm Hg) 2011-07-12 11:00:00 [facility] Systolic (mm Hg) 2011-07-12 11:00:00 [facility] Temperature Oral (F) 2011-07-12 11:00:00 97.5 F [facility] Diastolic (mm Hg) 2011-07-12 02:56:00 [facility] Systolic (mm Hg) 2011-07-12 02:56:00 [facility] Respitory Rate 2011-07-12 02:56:00 [facility] Temperature Oral (F) 2011-07-12 02:56:00 97.8 [facility] Heart Rate 2011-07-11 22:34:00 [facility] Heart Rate 2011-07-11 14:43:00 [facility] Heart Rate 2011-07-11 10:00:00 [facility] Height 2011-07-09 20:33:00 182.88 cm [facility] Weight 2011-07-09 20:33:00 [facility] Procedures Procedure Date / Time Performed Performing Clinician Sour e Cervical discectomy [facility] Cervical discectomy [facility], [facility] Discectomy [facility] Vasectomy [facility] Encounters Start End Encounter Admission Attending Care Care Encounter Source Date/Time Date/Time Type Type Clinicians Facility Department ID 2016-05-24 2016-05-25 Observatio EFREN [facility] [id number] MH Karie 21:44:00 21:20:00 [facility] 2016-05-24 2016-05-25 Outpatient Liam [id number] 15:44:00 15:20:00 Sherry [id number] 2016-01-19 2016-01-20 Inpatient EFREN [facility] [id number] MH 23:17:00 20:05:00 Adams 00 [facility] 2016-01-19 2016-01-20 Outpatient Johnny [facility] [id number] 18:17:00 15:05:00 Suur 00 2015-03-30 2015-03-30 EC VAUGHN [facility] [id number] MH 16:10:00 19:24:00 Emergency Adams 67 [facility] 2015-03-30 2015-03-30 Outpatient Kiran [facility] [id number] 10:10:00 13:24:00 Duane Mullen 2015-02-12 2015-02-15 Inpatient EFREN [facility] [id number] MH 23:56:00 21:31:00 Anibal kirby [facility] 2015-02-12 2015-02-15 [id number] 18:56:00 16:31:00 roxana Uday Trevor jessica 2014-12-12 2014-12-14 Inpatient EFREN [facility] [id number] MH 08:41:00 17:57:00 Anibal 22 [facility] 2014-12-12 2014-12-14 Outpatient Johnny [facility] [id number] 03:41:00 12:57:00 Michael 2014-10-26 2014-10-27 OBS VAUGHN [facility] [id number] MH 20:29:00 20:57:00 Observatio Anibal 06 [facility] 2014-10-26 2014-10-27 Outpatient DYLON EvansT SHAHBAZAL [id number] 15:29:00 15:57:00 Rufus 06 2014-07-19 2014-07-20 OBS MHIEALT [facility] [id number] MH 22:35:00 17:30:00 Observatio Anibal 67 Giorgio as n Patient [facility] 2014-07-19 2014-07-20 Outpatient DYLON ReynoldsT SHAHBAZALT [id number] 17:35:00 12:30:00 Terrell Bhakta 67 2012-06-22 2012-06-22 Emergency MHIEALT [facility] [id number] MH 12:36:00 17:25:00 Medical 04 [facility] 2012-02-29 2012-03-01 Emergency MHIEALT [facility] [place] [id number] MH 19:52:00 02:35:00 Medical 03 [facility] 2011-07-09 2011-07-12 Inpatient MHIEALT [facility] [id number] MH 18:06:00 13:31:00 Medical 02 [facility] 2010-10-13 2010-10-13 Emergency MHIEALT [facility] [id number] MH 10:57:00 13:12:00 Medical 01 [facility] 2010-03-16 2010-03-16 Emergency MHIEALT [facility] [place] [id number] MH 09:47:00 17:11:00 Medical 00 [facility] Results Test Description Test Time Test Comments Results Result [facility] e Comments CT HEAD W/O 2016-12-18 LOCATION: [id number]: CONTRAST 01:12:32 46-year-old male who presents with a head injury.COMMENT: After-hours service at 1:11 a.m.Axial imaging of the patient's brain was obtained with IV contrast. Soft tissueand bone window images were provided. A sagittal soft tissue reconstruction wasincluded. The study was obtained [facility]One or more of the following dose reduction techniques were used: Automatedexposure control, adjustment of the mA and/or kV according to patient size,and/or utilization of iterative reconstruction technique.DLP: 993 mGy-cmCONTRAST: None.FINDINGS:There is no evidence of acute mass effect, midline shift, hemorrhage, orherniation. The ventricles, sulci, and cisterns are within normal limits. Thereis no CT evidence of an acute infarct.The skeleton is intact. The visualized paranasal sinuses and air cells areclear. The soft tissues are unremarkable.IMPRESSION : Unremarkable noncontrast head CT examination. CBC WITH MANUAL DIFF 2016-12-18 01:07:00 Test Item Value Reference Range Interpretation Comme nts WBC (test code = WBC) 12.1 10\\S\\3/uL 4.5-11.0 H RBC (test code = RBC) 4.40 10\\S\\6/uL 4.20-5.60 HGB (test code = HBG) 13.7 g/dL 14.0-18.0 L HCT (test code = HCT) 40.7 % 35.0-46.0 MCV (test code = MCV) 92.5 fL 80.0-94.0 MCH (test code = MCH) 31.1 pg 27.0-31.0 H MCHC (test code = MCHC) 33.7 g/dL 32.0-36.0 RDW (test code = RDW) 13.2 % 11.5-14.5 PLT (test code = PLT) 145 10\\S\\3/uL 130-400 MPV (test code = MPV) 11.9 fL 9.4-12.4 NEUTROP # (test code = NE#) 6.8 10\\S\\3/uL 2.0-8.0 LYMPH # (test code = LY#) 3.0 10\\S\\3/uL 1.2-4.0 MONOCYTE # (test code = MO#) 2.1 10\\S\\3/uL 0.0-1.1 H EOSINOPH # (test code = EO#) 0.0 10\\S\\3/uL 0.0-0.7 BASOPHIL # (test code = BA#) 0.1 10\\S\\3/uL 0.0-0.3 IG # (test code = IG#) 0.09 10\\S\\3/uL 0.00-0.06 H NRBC # (test code = NRBC#) 0.00 10\\S\\3/uL 0.00-0.01 NEUTROPH % (test code = NE%) 56.5 % 35.0-73.0 LYMPH % (test code = LY%) 25.1 % 20.0-55.0 MONO % (test code = MO%) 17.0 % 2.5-10.0 H EOSINOPH % (test code = EO%) 0.3 % 0.0-5.0 BASOPHIL % (test code = BA%) 0.4 % 0.0-2.0 IG % (test code = IG%) 0.7 % 0.0-0.8 NRBC% (test code = NRBC%) 0.0 % 0.0-0.2 MAN DIFF (test code = HMDIFF) MANUAL DIFFERENTIAL SEG (test code = SEG) 54 % 42-75 BAND (test code = BAND) 0 % 0-8 LYMPH (test code = LYMPH) 26 % 20-51 MONO (test code = MONO) 18 % 3-11 H EOS (test code = EOS) 1 % <=10 BASO (test code = BASO) 0 % 0-2 RBC MORPH (test code = RBCMORN) NORMAL NORMAL PLT EST (test code = PLTEST) ADEQUATE ADEQUATE PLT MORPH (test code = PLTMOR) NORMAL (1.5-3 um) NORMAL CARDIAC [id number] 01:02:00 Test Item Value Reference Range Interpretation Comments TROPONIN I (test code = A84) 0.032 ng/mL 0.000-0.045 CKMB (test code = A49) 2.4 ng/mL <=3.6 CPK (test code = 32A) 390 IU/L 39-308 H DRUGS OF [id number] 01:01:00 Test Item Value Reference Range Interpretation Comments DRUG SCRN (test code URINE DRUG SCREEN = HDOA) This is an unconfirmed screening result and should not be used for non-medical purposes CANNABINOD (test code Negative NEGATIVE = 88C) AMPHETAMINE (test POSITIVE NEGATIVE A code = 84A) BENZODIAZP (test code Negative NEGATIVE = 86A) BARBITURAT (test code Negative NEGATIVE = 85A) OPIATES (test code = POSITIVE NEGATIVE A 92B) COCAINE (test code = Negative NEGATIVE 87A) PHENCYCLID (test code Negative NEGATIVE = 66A) METHADONE (test code Negative NEGATIVE = 64A) DOAH (test code = BABAK) *URINE DRUG SCREEN Cut-off values are as follows: Cannabinoids 50 ng/mL Cocaine 300 ng/mL Amphetamines 1000 ng/mL Phencyclidine 25 ng/mL Benzodiazepines 200 ng.mL Methadone 300 ng/mL Barbiturates 200 ng/mL Opiates 2000 ng/mL COMPREHENSIVE METABOLIC [id number] 01:00:00 Test Item Value Reference Range Interpretation Comments GLUCOSE (test code = 06D) 103 mg/dL 75-100 H SODIUM (test code = 01A) 140 mmol/L 136-145 POTASSIUM (test code = 01B) 4.0 mmol/L 3.6-5.1 CHLORIDE (test code = 04A) 105 mmol/L 98-107 CO2 (test code = 02A) 24 mmol/L 22-32 ANION GAP (test code = ANG) 15.0 mmol/L BUN (test code = 05D) 25 mg/dL 7-18 H CREATININE (test code = 03E) 2.6 mg/dL 0.7-1.3 H BUN/CREA (test code = BCR) 10 12-20 L CALCIUM (test code = 09D) 8.8 mg/dL 8.3-9.5 BILI TOTAL (test code = 11A) 0.4 mg/dL 0.2-1.0 PROTEIN (test code = 07D) 7.7 g/dL 6.4-8.2 ALBUMIN (test code = 08D) 4.2 g/dL 3.5-4.8 GLOBULIN (test code = GLB) 3.5 g/dL 1.5-3.8 ALB/GLOB (test code = AGRR) 1.2 1.0-2.6 ALK PHOS (test code = 35A) 74 IU/L 42-121 AST (test code = 30A) 49 IU/L <=42 H ALT (test code = 31A) 63 IU/L <=78 URINALYSIS WITH [id number] 00:55:00 Test Item Value Reference Range Interpretation Comments COLOR (test code = COLU) YELLOW YELLOW CLARITY (test code = CLA) CLOUDY CLEAR A GLUCOSE UR (test code = UA NEGATIVE NEGATIVE GLUCOSE) BILI UR (test code = BILE) NEGATIVE NEGATIVE KETONES UR (test code = FRANCK) NEGATIVE NEGATIVE SP GRAVITY (test code = 1.015 1.005-1.030 SPGR) PH UR (test code = PH) 6.0 4.5-8.0 PROTEIN UR (test code = PU) 1+ NEGATIVE A UROBIL UR (test code = UROQ) 0.2 EU/dL 0.2-1.0 NITRITE UR (test code = NEGATIVE NEGATIVE NITRITE) BLOOD UR (test code = UA 3+ NEGATIVE A BLOOD) LEUK ES UR (test code = NEGATIVE NEGATIVE LEUK) WBC UR (test code = UWBC) 0 /HPF 0-3 RBC UR (test code = URBC) 5 /HPF 0-2 H EPITH UR (test code = UEPC) NONE /LPF NONE BACTERIA UR (test code = FEW /HPF NONE A UBACT) CAST UR (test code = CAST) HYALINE FEW /LPF NONE A CRYSTAL UR (test code = / LPF NONE CRYU) MUCUS UR (test code = MUC) / HPF NONE AMORPH UR (test code = ROYA) / HPF NONE TRICH UR (test code = /HPF NONE UTRICH) YEAST UR (test code = UY) /HPF NONE SPERM UR (test code = /HPF NONE USPERM) PRO TIME AND [id number] 00:54:00 Test Item Value Reference Range Interpretation Comments PT (test code = 12.0 s 9.8-13.6 TT) INR (test code = 1.1 INR) INRH (test code = SUGGESTED INRH) THERAPEUTIC RANGE FOR INR: 2.5 - 3.5 For Patients with Prosthetic Valves or Patients with recurrent Thromboembolic Events 2.0 - 3.0 For Most Other Applications PTT (test code = 26.9 s 20.2-38.0 PTT) PTTH (test code = To monitor the PTTH) effectiveness of heparin, we offer the Anti-Xa (Heparin Assay). It can be used for either unfractionated or LMW Heparin. Order Code is ANTI-XA XR CHEST 1 VIEW [id number] 00:53:14LOCATION: [id number]: 46-year-old male who presents with a fever.COMMENT: After-hours service at 12:52 a.m.A frontal chest radiograph was obtained at the bedside at 12:45 a.m. The lungs are clear and well-aerated. The cardiac silhouette, cem, andmediastinum are within normal limits. The skeleton is intact, and thesurrounding soft tissues are unremarkable. IMPRESSION:Unremarkable portable examination of the chest. URINE AND [id number] 06:51:00Clear (05/25/16 12:51 AM)[facility] AND [id number] 06:51:001.034[facility] AND [id number] 06:51:00Light Yellow *NA*(05/25/16 12:51 AM)[facility] AND STOOL 2016-05-25 06:51:00Negative *NA*(05/25/16 12:51 AM)[facility] AND [id number] 06:51:008.0[facility] AND KOAZB2425-44-33 06:51:001[facility] AND [id number] 06:51:00Negative (05/25/16 12:51 AM)[facility] AND [id number] 06:51:00Negative (05/25/16 12:51 AM)[facility] AND [id number] 06:51:00Negative (05/25/16 12:51 AM)[facility] HSRJWWK6339-31-74 22:40:000.9[facility]CARAC OIQFUZC2663-83-98 22:40:001.6[facility] YZZEAKA7778-05-80 22:40:00 183[facility] SVDPHMK2433-54-32 22:40:00<0.02[facility] EJENHRAXVUKC2020-96-56 22:40:0011.7[facility]olaOulsupioYWIBMBFWZRHK7375-94-93 22:40:0097[facility]olaVmwbxyvjMNYSRBKQKWYH3599-20-44 22:40:0027[facility] ERIGYHCLSOZE7681-36-70 22:40:009.0[facility]olaCsitawdsKOACYFTAQLAU5820-65-27 22:40:17782QQ [facility]olaDyvemgzwMKPNYXDQZHYF3427-39-96 22:40:0015[facility] HTTJRXLHNTHX7424-47-23 22:40:003.7[facility]olaTmsavucmIMWZSKDYLSDO9212-99-70 22:40:01170BD [facility]olaWbyljvftKZFWNDTPPTBX3107-50-29 22:40:41837XW [facility] BZLVSOJVZYOG3172-57-73 22:40:000.94[facility]olaLhtnhsgaSVZDBPBOFG7840-28-01 22:40:00 10.7[facility]olaLgognnqhPVBQSNAAJH5523-98-62 22:40:000.9[facility] 2016-05-24 22:40:000.2[facility] CenterGjhpeqfnQJIPKPKIBJ0094-33-32 22:40:002.1[facility] CenterLlrvspfyGFREBKRFZZ8626-08-53 22:40:001.2[facility] CenterAzgjpafsJHUVTVDQLW8755-68-51 22:40:000.1[facility] CenterJeyhrbtlMWHQGXKFWN0306-78-71 22:40:0074.6[facility] IODKOSPFIO4835-56-75 22:40:0014.6[facility] CenterDynqouhzIEYIQUJMWG2289-25-78 22:40:00 8.4[facility]olaWnqsxthxBFPZWYPYMO7374-07-54 22:40:001.5[facility] 2016-05-24 22:40:00 Test Item Value Reference Range Interpretation Comments MCH (test code = MCH) 31.8 pg 27.0-31.0 [facility]asEpaauvmaEYWSEYHQET7437-64-60 22:40:0093.9[facility]HE[facility] 2016-05-24 22:40:0033.9[facility]asDxvfveahGJTDKRYCMQ7012-45-95 22:40:0042.7[facility]asSmoevmyyUHOLJQECYH6993-76-10 22:40:009.7[facility]itanCjjfrhkdVBOHPXXWXM1191-31-01 22:40:66810MRHouse [facility] the Good SamaritanOatdarxxRMXYVMBGPZ9569-10-78 22:40:0012.9[facility] PDMLKURCIT0461-70-85 22:40:0014.3[facility] HospitalDrvnwgukQVDXJJGYPY3678-53-23 22:40:00 4.55[facility]aritanEgraunznBMUWIYSISY6128-05-70 22:40:0014.5[facility]asCHEM PANEL 2016-01-20 14:13:98319UFGonzales Memorial HospitalCHEM AWBSG9951-71-68 14:13:0095[facility] HospitalCHEM DUEIR2998-68-32 14:13:0013[facility] HospitalCHEM INEWM2180-61-53 14:13:02704QZG[facility]ales Memorial HospitalCHEM YGASI9219-88-59 14:13:00 8.4[facility] HospitalCHE[facility] ZFGGB8833-66-55 14:13:0028[facility] CHEM PCJBK3151-26-43 14:13:000.80[facility] HospitalCHEM MUFQO9201-55-46 14:13:003.7[facility] HospitalCHE[facility] YBSCT0220-68-30 14:13:77201DYGonzales Memorial HospitalCHEM QOJYU0933-98-14 14:13:0010.7[facility] HospitalHEMATOLOGY 2016-01-20 14:13:007.2[facility] HospitalRhhbdwUJBNGWYMCD4235-90-20 14:13:004.67[facility] HospitalXerfawQHUYZUNNLL6058-45-06 14:13:0014.6[facility] FTRZIJNLDS4677-42-92 14:13:0092.0[facility] HospitalJutsjwXAPREEYSTO8084-51-47 14:13:0043.0[facility] HospitalIykrdsCWNOOYZEXI0502-59-88 14:13:00 Test Item Value Reference Range Interpretation Comments MCH (test code = MCH) 31.2 pg 27.0-31.0 [facility] HospitalEvxappFSMCGDBVMR5624-83-33 14:13:0033.9[facility] PFFKXLLTHP4399-05-99 14:13:0013.4[facility] HospitalGoklswHQEHKKTPZR2431-99-42 14:13:58282IGGonzales Memorial HospitalFeloitZWHQSLZQZV5540-32-55 14:13:0010.0[facility] HospitalKmodwqXILZSJRHTR7929-89-66 14:13:004.8[facility] HospitalHEMATOLOGY 2016-01-20 14:13:0035.7[facility] HospitalUmxmnyTPACAEAVMG3418-48-09 14:13:009.[address] [place], [place] [address]EvtoxzQBBIMCXYJO6885-09-10 14:13:0049.2[facility] QYAFKEEXRV6193-08-17 14:13:000.7[facility] HospitalWritlqDBLGSEECUR0229-76-04 14:13:000.3ML[facility] CenterLptsisCZEAPMTBMX1922-07-51 14:13:[address] [place], [place] [address]GdcayqMQZATJYCCB0204-55-64 14:13:002.[address] [place], [place] [address]HEMATOLOGY 2016-01-20 14:13:001.[address] [place], [place] [address]HyfkobSRLBHWQCSI9696-14-29 14:13:003.[address] [place], [place] [address]WknanrYOSZNJYPWW4662-20-17 14:13:00<3ML[facility] VMSGHSMMDU4344-88-01 14:13:00<0.003[facility] HospitalDRUG SCREEN 2016-01-20 03:50:00See Note (01/19/16 10:50 PM)[facility] 2016-01-20 03:50:00Negative *NA*(01/19/16 10:50 PM)[facility] HospitalDR[facility] MCRQXR7673-65-50 03:50:00Negative *NA*(01/19/16 10:50 PM)[facility] DRUG LGTMKH0880-99-41 03:50:00Positive *ABN*(01/19/16 10:50 PM)[facility]DR[facility] ZKVTUW0797-22-48 03:50:00Negative *NA*(01/19/16 10:50 PM)[facility]DR[facility] YLTXEZ4863-62-00 03:50:00Negative *NA*(01/19/16 10:50 PM)[facility]DR[facility] LZUXFF5313-93-88 03:50:00Positive *ABN*(01/19/16 10:50 PM)[facility] HospitalDR[facility] UMLPLU5695-86-14 03:50:00Negative *NA*(01/19/16 10:50 PM)[facility] HospitalUR[facility] AND IWGLE1365-68-86 03:50:00>=1.050 *ABN*(01/19/16 10:50 PM)[facility]UR[facility] AND IEAQP1592-99-19 03:50:00 1MLamb [facility] CenterURINE AND FGAGO9405-59-87 03:50:00Performed *NA*(01/19/16 10:50 PM)[facility] AND ZLLTN4220-87-62 03:50:00Negative (01/19/16 10:50 PM)[facility] AND TCPGJ8157-36-07 03:50:00 Negative (01/19/16 10:50 PM)[facility] AND FJZAN9667-29-70 03:50:00Negative *NA*(01/19/16 10:50 PM)[facility] STOOL 2016-01-20 03:50:00Negative (01/19/16 10:50 PM)[facility] HIHKR6697-50-35 03:50:00Yellow *NA*(01/19/16 10:50 PM)[facility] URINE AND RJKTC2691-51-50 03:50:00Clear (01/19/16 10:50 PM)[facility] VVLIA8509-07-00 03:50:006.0[facility] HospitalLIPIDS 2016-01-20 03:35:005.46[facility] HospitalLIPIDS2016-09-17 03:35:0051[facility] HospitalLIPIDS2016-09-17 03:35:18039FSGonzales Memorial HospitalLIPIDS 2016-01-20 03:35:0037[facility] HospitalLIPIDS2016-09-17 03:35:12825IAGonzales Memorial HospitalLIPIDS2016-09-17 03:35:98969TZDo[facility] LaredoPECIAL KZDJLZAMA8441-43-20 03:35:006.0[facility] HospitalCARDIAC IDOEBLL2902-31-45 23:40:34142RJGonzales Memorial HospitalCARDIAC ALBKCZX0216-30-71 23:40:00<0.02[facility] HospitalCARDIAC MPTQJSX5958-24-24 23:40:001.8[facility] CARDIAC RIDJOLM3172-16-64 23:40:001.2ML[facility] CenterCHEM KPJHD2617-46-22 23:40:000.1ML[facility] CenterCHEM NZHIX4163-09-09 23:40:001.0[facility] HospitalCHEM UPRFB4856-07-12 23:40:003.7[facility] HospitalCHEM PANEL 2016-01-19 23:40:000.0[facility] HospitalCHEM LKLGL6719-24-17 23:40:007.3ML[facility] CenterCHEM NRUPI7079-29-75 23:40:003.6ML[facility] CenterCHEM SYDWY2286-05-69 23:40:0072[facility] HospitalCHEM SWVVI7045-35-65 23:40:00 0.1ML[facility] CenterCHEM NIRQY2428-58-04 23:40:78401OJGonzales Memorial HospitalCHEM STPAD8490-50-85 23:40:0039[facility] HospitalCHEM HJPUU2922-19-51 23:40:003.8[facility] HospitalCHEM BIGNK4068-23-09 23:40:001.8[facility] HospitalZfslcyMHNPHTHHXXDM5546-32-64 23:40:0012.0[facility] WALJHNMKQSRD9882-42-49 23:40:004.0[facility] HospitalMamhijGMEYHFOYABYM9423-02-37 23:40:0087[facility] HospitalWplzciKHADBLXNPSVU4501-41-32 23:40:0029[facility] HospitalRhvizlWBNRHJINKYAM8479-25-26 23:40:65398TEGonzales Memorial Hospital LXZSWWEUNXPU1525-29-03 23:40:008.8[facility] HospitalUcchffHPZWAZBNRIIW6105-77-59 23:40:0013[facility] HospitalDjgiitEGKFMQZRZSGD0327-84-31 23:40:23728YAGonzales Memorial HospitalVtzwczMFYUVUMLNVFO8127-11-37 23:40:60137IKG[facility] Hospital UEOPRRJROJWO0233-02-93 23:40:001.03[facility] HospitalFqjaqvPYDRJBESZY3956-47-66 23:40:0034.9[facility] HospitalHzmbklOPKAWYWINK3922-29-60 23:40:0014.1ML[facility] CenterMwrjkjXFGVGDTBPF9866-94-55 23:40:005.1ML[facility] CenterHEMATOLOGY 2016-01-19 23:40:001.3ML[facility] CenterCxrdkiMUKCILGOBE8352-10-25 23:40:003.6ML[facility] CenterLouncsRSWGIBDLRU2562-70-67 23:40:[address] [place] [address] CHJFOUUWXN5253-84-42 23:40:002.8[facility] HospitalTspdneOEXBUHJQMV6414-58-56 23:40:000.1ML[facility] CenterNddeeeYGIWLGSWDC7129-92-54 23:40:000.4[facility] HospitalVlyvkhNJTZKVILFK3111-33-57 23:40:[address] [place], [place] [address]HEMATOLOGY 2016-01-19 23:40:0042.2ML[facility] CenterOmkvrmZUTDAJZJSA8876-41-39 23:40:0014.2 [facility] HospitalNvpicdWZBMFINYPH3291-29-66 23:40:004.58[facility] LTCZCNEOEF2186-98-85 23:40:[address] [place], [place] [address]CkiouhSVUNFNOFVA2572-43-04 23:40:[address]92.[address] [place], [place] [address]BbvkjfJAHQFVPHYB5613-19-08 23:40:00 Test Item Value Reference Range Interpretation Comments MCH (test code = MCH) 31.0 pg 27.0-31.0 [facility] HospitalFrontwKUBTZQECAO9042-85-49 23:40:[address] [place] [address] BWXLTGPLRH4120-51-01 23:40:54604ZSGonzales Memorial HospitalAzrxopWJHKCXMWJQ7688-98-90 23:40:0013.8[facility] HospitalDxjcfkXNKLKOMNNI5291-95-75 23:40:009.5[facility] HospitalIzmycsTGLIWQTLVQ4778-59-69 23:40:000.87[facility] HospitalHEMATOLOGY 2016-01-19 23:40:00 Test Item Value Reference Range Interpretation Comments PT (test code = PT) 12.1 s 12.0-14.7 [facility] HospitalGjrmdwAXSAPNNPZE2102-03-78 23:40:00 Test Item Value Reference Range Interpretation Comments PTT (test code = PTT) 24.3 s 22.9-35.8 [facility] HospitalVdurelDMENRFHUAD0037-59-06 16:44:00<0.003[facility] HospitalEwvogvRXIWYXPZDI6057-14-46 16:44:00<3ML[facility] CenterCHEM PANEL 2015-03-30 16:21:001.[address] [place], [place] [address]CHEM WHVQS6396-93-81 16:21:002.0[facility] HospitalCHEM SIYHR4033-14-87 16:21:004.[address] [place], [place] [address]CHEM RJHNO3168-52-79 16:21:000.9[facility] HospitalCHEM KIEIT7533-03-06 16:21:00 102[facility] HospitalCHEM [id number] 16:21:000.[address] [place], [place] [address]CHEM [id number] 16:21:0036[facility] HospitalCHEM [id number] 16:21:008.[address] [place], [place] [address]CHEM [id number] 16:21:003.[address] [place], [place] [address]CHEM [id number] 16:21:0061[facility] HospitalCHEM PANEL 2015-03-30 16:21:000.0[facility] HospitalCHEM [id number] 16:21:000.[address] [place], [place] [address]CHEM [id number] 16:21:0089[facility] HospitalCHE[facility] [id number] 16:21:009.[address] [place], [place] [address]CHEM [id number] 16:21:009 [facility] HospitalCHE[facility] [id number] 16:21:22922SV[facility] CHEM [id number] 16:21:004.[address] [place], [place] [address]CHEM [id number] 16:21:79831ANG[facility] HospitalCHEM [id number] 16:21:001.02[facility] HospitalCHE[facility] [id number] 16:21:0026[facility] HospitalCHEM PANEL 2015-03-30 16:21:86108MSG[facility] HospitalCHEM [id number] 16:21:0013.[address] [place], [place] [address]DRUG [id number] 16:21:00Negative *NA*(03/30/15 10:21 AM)[facility]DR[facility] [id number] 16:21:00See Note *NA*(03/30/15 10:21 AM)[facility]DR[facility] [id number] 16:21:00Negative *NA*(03/30/15 10:21 AM)[facility]DR[facility] [id number] 16:21:00 Negative *NA*(03/30/15 10:21 AM)[facility] [id number] 16:21:00Negative *NA*(03/30/15 10:21 AM)[facility] SCREEN 2015-03-30 16:21:00Negative *NA*(03/30/15 10:21 AM)[facility]DR[facility] [id number] 16:21:00Negative *NA*(03/30/15 10:21 AM)[facility] DRUG [id number] 16:21:00Negative *NA*(03/30/15 10:21 AM)[facility] [id number] 16:21:00 Test Item Value Reference Range Interpretation Comments PT (test code = PT) 11.9 s 12.0-14.7 [facility] [id number] 16:21:000.85[facility] [id number] 16:21:00 Test Item Value Reference Range Interpretation Comments PTT (test code = PTT) 22.7 s 22.9-35.8 [facility] [id number] 16:21:004[facility] URINE AND [id number] 16:21:00None Seen (03/30/15 10:21 AM)[facility] [id number] 16:21:00Negative (03/30/15 10:21 AM)[facility] [id number] 16:21:00Negative (03/30/15 10:21 AM)[facility] [id number] 16:21:000.2[facility] AND [id number] 16:21:00Negative *NA*(03/30/15 10:21 AM)[facility]UR[facility] [id number] 16:21:00 Test Item Value Reference Range Interpretation Comments UA pH (test code = UA pH) 7.5 1 5.0-8.0 [facility] [id number] 16:21:00 Test Item Value Reference Range Interpretation Comments UA Spec Grav (test code = UA Spec 1.015 1 Grav) [facility] DFVHZ8970-81-01 16:21:00Yellow *NA*(03/30/15 10:21 AM)[facility] ICDOQ3781-46-47 16:21:00Clear (03/30/15 10:21 AM)[facility] BBZHF1338-54-05 16:21:00 Negative (03/30/15 10:21 AM)[facility] HospitalDfyoeuUGHVDPUPGS3601-99-70 09:44:00 14.4[facility] HealthcareZgecZLBKHJXESN5437-40-88 09:44:001.31[facility] CityCARDIAC ZLMLVMN7280-46-08 09:00:0044[facility] CityCHEM DZJRE8692-49-13 09:00:002.0 [facility] CityCHEM TBJWJ3005-20-45 09:00:002.7 [facility] CityCHEM PANEL 2015-02-14 09:00:000.7 [facility] CityCHEM RLHER0444-06-21 09:00:26932XT [facility] CityCHEM VZOEB1201-92-63 09:00:004.1M [facility] CityCHEM PANEL 2015-02-14 09:00:008.2M [facility] CityCHEM CHKTU4204-92-21 09:00:86969UA [facility] CityCHEM ZKRHZ4613-53-28 09:00:31617VO [facility] CityCHEM PANEL 2015-02-14 09:00:0013 [facility] CityCHEM PPRMA0140-85-60 09:00:009.1M [facility] CityCHEM PYYYF4300-27-13 09:00:009 [facility] CityCHEM QAQMR3481-97-57 09:00:00 29MH [facility] CityCHEM IUIEU5951-22-18 09:00:005.8 [facility] CityCHEM PANEL 2015-02-14 09:00:0028 [facility] CityCHEM VPGJI4179-00-66 09:00:000.9 [facility] CityCHEM RBRXW6554-80-56 09:00:002.7 [facility] CityCHEM QQYNI2122-63-23 09:00:003.1MH [facility] CityCHEM YCCSZ2710-61-68 09:00:000.2[facility] CityCHEM GNLWO5791-72-70 09:00:0017[facility] CityCHEM WAAOP8541-55-09 09:00:0072[facility]ly [facility] HealthcareCHEM QOAHY4922-20-28 09:00:85030XW[facility] CityHEMATOLOGY 2015-02-14 09:00:000.3[facility] FlidURQFYRSQDO0957-89-92 09:00:001+ *ABN*(02/14/15 4:00 AM)[facility] EccuIJOIICMMTM5264-21-25 09:00:005.2[facility] SbahXCBRDLMXES6914-77-02 09:00:002.2[facility] CityHEMATOLOGY 2015-02-14 09:00:000.9[facility] BckyYHPSCPMNTO9028-01-93 09:00:000.5[facility] GpboSIAXHTHYVT9032-09-54 09:00:003.7[facility] CityHEMATOLOGY 2015-02-14 09:00:00Normal (02/14/15 4:00 AM)[facility] PpsgBVHWMMINJT1818-03-51 09:00:0059.6[facility] YrnmBOCNQZAQFZ3502-63-07 09:00:0025.8[facility] OHCLDZJOYZ9973-30-06 09:00:0010.4[facility] AnizWDQVRYMLMC7284-35-04 09:00:00 9.6[facility] XwhcXCADGHAZOV1273-71-99 09:00:34779JA[facility] CityHEMATOLOGY 2015-02-14 09:00:0013.7[facility] FvylCSOITAPLUM1656-00-56 09:00:0033.0[facility] HealthcareQnsiDBCLKDKBIP9912-33-57 09:00:00 Test Item Value Reference Range Interpretation Comments MCH (test code = MCH) 31.8 pg 27.0-31.0 [facility] LoczSQCMHHVXWC0718-19-61 09:00:[address]96.[address] [place] [address] CityHEMATOLOGY 2015-02-14 09:00:[address] [place] [address] IuqsXUHZXUXGGF9278-38-06 09:00:[address] [place] [address] SzuiFWEKYANDRK8740-31-86 09:00:003.87[facility] CityHEMATOLOGY 2015-02-14 09:00:008.7[facility] WtqkBFHJEAMSMC6454-81-95 09:00:0049Formerly [facility] HealthcareQqfmCXBNAPMXJQ9036-63-23 09:00:002.16[facility] HealthcarePptqZEUJWLGXHA5129-24-02 09:00:0016.6[facility] HospitalNucmZPFEANQZQX8916-55-11 15:22:000.22[facility] GFHBAVVPXH3188-96-29 15:22:001.9 [facility] CityURINE AND SXVOB6689-34-53 09:14:00Negative (02/13/15 4:14 AM) [facility] CityURINE AND VQRMI7615-72-20 09:14:00Negative (02/13/15 4:14 AM) [facility] CityURINE AND KAKTH8688-22-44 09:14:00<1MH [facility] CityURINE AND OAXYD3068-79-15 09:14:001[facility] URINE AND DXUFU8944-02-51 09:14:00Negative (02/13/15 4:14 AM)[facility] URINE AND GJSFR5829-99-78 09:14:00Negative *NA*(02/13/15 4:14 AM)[facility] CityURINE AND JPJRJ6420-05-48 09:14:007.0[facility] CityURINE AND STOOL 2015-02-13 09:14:001.019[facility] CityURINE AND QKZAM2877-29-22 09:14:00Clear (02/13/15 4:14 AM)[facility] CityURINE AND TVNTC6412-92-20 09:14:00Light Yellow *NA*(02/13/15 4:14 AM)[facility] CityCHEM QJPLG1468-52-71 08:37:002.1[facility] HospitalCHE[facility] METRH5114-15-06 08:37:001.8[facility] CityCHEM PANEL 2015-02-13 08:37:94467CI[facility] CityCHEM LIQFI9589-19-47 08:37:31544FP[facility] CityCHEM HYKLR1821-07-48 08:37:003.9[facility] CityCHEM PANEL 2015-02-13 08:37:000.8[facility] CityCHEM MACAH4288-51-26 08:37:0014[facility] CityCHEM BPRBH8992-53-48 08:37:35409XLFormerly [facility] HealthcareCHEM NXDML4489-96-73 08:37:0035Formerly [facility] HealthcareCHEM BOIWR5995-95-16 08:37:005.8[facility]ly [facility] HealthcareCHEM ZRYAX1365-98-25 08:37:0076Formerly [facility] HealthcareCHEM OXCJT7684-62-16 08:37:0094[facility]2015-10-12 08:37:0023Formerly [facility] HealthcareCHEM EOARW1599-01-32 08:37:001.0[facility]ly [facility] HealthcareCHEM AOUQG9025-77-39 08:37:003.0[facility]ly [facility] HealthcareCHEM LWWLS2344-66-68 08:37:008.3[facility] HospitalCHEM KSCUJ2241-64-71 08:37:0027[facility]ly [facility] HealthcareCHEM CCABX1800-10-11 08:37:0018[facility]2015-10-12 08:37:002.8[facility]2015-10-12 08:37:001.1[facility] HospitalCHEM VJWOT1814-49-34 08:37:0011.9[facility] HealthcareClebQLYLVYWBBT3011-13-21 08:37:009.1[facility] HospitalRlmnZCCONFUZNP2988-11-33 08:37:86452CHFormerly [facility] HealthcareHEMATOLOGY 2015-02-13 08:37:0033.5[facility] HealthcareUatmVGCZFISHVI2122-66-03 08:37:0013.6[facility] HospitalJigkFXOMCYYGWK9946-00-62 08:37:0038.4[facility] HealthcareHEMATOLOGY 2015-02-13 08:37:0095.[address] [place], [place] [address]OpdlUDXDMTFQUJ8405-28-60 08:37:004.01[facility]ly [facility] HealthcareVauhVZNLKTJZAP5148-28-10 08:37:0012.8[facility]ly [facility] HealthcareHEMATOLOGY 2015-02-13 08:37:00 Test Item Value Reference Range Interpretation Comments MCH (test code = MCH) 32.0 pg 27.0-31.0 [facility] HealthcareOcfpBYYSMKXNPJ7318-09-18 08:37:0015.[address] [place], [place] [address]HEMATOLOGY 2015-02-13 08:37:0012.[address] [place], [place] [address]UkkbIAJZWTZBGA8839-02-63 08:37:001.7[facility] HealthcareVgegMLZMTMFPSA0194-37-95 08:37:001+ *ABN*(02/13/15 3:37 AM)[facility] HealthcareNagrLHLSYVZDJX0032-48-51 08:37:001.5[facility] HealthcareThlwLXUHWNWGAY8215-80-40 08:37:000.2[facility] HospitalRiinSZLNGINOZP1577-80-00 08:37:0011.[address] [place] [address] ZMHTVSDBID0440-29-55 08:37:009.4[facility]ly [facility] HealthcareUollCVOVTTTGLC2144-23-83 08:37:[address] [place], [place] [address]EolhYKEJARXUPM6589-84-98 08:37:000.3[facility] HospitalHEMATOLOGY 2015-02-13 08:37:001.[address] [place], [place] [address]ElzlNVHVBHKMZK2625-32-40 04:15:0011Formerly [facility] HealthcareEltjYPJCHFMMRQ0180-83-28 14:26:0027[facility] HospitalCHEM KJCSO3267-84-73 07:28:[address] [place], [place] [address]CHEM TERWL4215-97-21 07:28:[address] [place], [place] [address]QpfopsWZLDDETZNGXY6081-67-41 07:28:0011.5[facility] RNNNZIJOTTWL3107-83-86 07:28:14759YTGonzales Memorial HospitalNtwxgfMBDHEMQIPMFO9824-63-80 07:28:0078[facility] HospitalVwpfpiCPGMVFUYDVNL2332-65-26 07:28:0011[facility] HospitalWstvdgJUNBAPCKAJUQ3668-02-87 07:28:008.4[facility] EIEMILYTWAVU6246-49-50 07:28:12811AJGonzales Memorial HospitalPhovvdNWZQBOBNMZUF9934-02-32 07:28:0026[facility] HospitalBjyrcjNQAJAIERJADD2464-49-17 07:28:[address] [place], [place] [address]JhrermPHITJBSYSMXL3341-51-03 07:28:51626TZG[facility] EJOFEVYLERGW5087-69-82 07:28:004.5[facility] HbuvdtQXDJBGZHCX6458-78-39 07:28:002.5[facility] HospitalDpznmvOHOWQVIJTY0629-83-15 07:28:[address] [place], [place] [address]XmafjrNGKFOCTYDL8272-29-09 07:28:000.[address] [place], [place] [address]HEMATOLOGY 2014-12-14 07:28:000.[address] [place], [place] [address]RhizhsGGHCUJAIGK8970-77-30 07:28:009.0[facility] HospitalShtsmrTAPUFFCVFW6144-99-79 07:28:001.0[facility] BIFUPWKSIX5209-59-05 07:28:002.7[facility] HospitalXzweseYCUPRSBTRV5796-11-35 07:28:005.0[facility] HospitalLvwameCIKFJASCOQ0102-86-85 07:28:0044.3ML[facility] CenterRzmdkbXTCQJDEIFH7398-90-76 07:28:0040.7[facility] HospitalHEMATOLOGY 2014-12-14 07:28:0039.9[facility] HospitalYwybxnIHQRIGSCSR9958-49-18 07:28:0013.2 [facility] HospitalTwjdcsTNRAEFIEFT2104-57-07 07:28:004.17[facility] AVJJNBRLUR2189-52-62 07:28:006.1ML[facility] CenterNsnlhgUNCHYREXGX3530-73-87 07:28:0032.9[facility] HospitalQaoyilQOXBZAGACM9701-16-01 07:28:0013.2ML[facility] CenterPhlwciGYAYXQPPKU0531-31-31 07:28:00 Test Item Value Reference Range Interpretation Comments MCH (test code = MCH) 31.6 pg 27.0-31.0 [facility] HospitalJaxuadBAUUXTOSPR4007-09-57 07:28:0095.9[facility] RBMZJEIHGU3982-92-82 07:28:83603AKGonzales Memorial HospitalYzjhjcGJJDSRYODZ9514-59-37 07:28:0010.0[facility] HospitalCHEM GJNBE4034-14-81 08:08:41086TVGonzales Memorial HospitalCHEM DESUB3879-15-02 08:08:008.0[facility] HospitalCHEM PANEL 2014-12-13 08:08:0026[facility] HospitalCHEM VJKYE9261-44-22 08:08:35741AVGonzales Memorial HospitalCHEM IENVD1118-10-04 08:08:004.[address] [place], [place] [address]CHEM IXQHR6632-87-98 08:08:65104NKGonzales Memorial HospitalCHEM BSOPW9719-95-07 08:08:[address] [place], [place] [address]CHEM ZTIQC9407-07-58 08:08:0016[facility] CHEM SYUTO0499-08-52 08:08:000.9[facility] HospitalCHEM OBKHC1250-49-26 08:08:[address] [place], [place] [address]CHEM GFCPU3780-66-48 08:08:002.9[facility] HospitalCHEM FVQIM6590-97-00 08:08:001.9[facility] HospitalHEMATOLOGY 2014-12-13 08:08:0050.9[facility] HospitalGmybmiEVALPSERDR8341-11-17 08:08:0034.7 [facility] HospitalTugcheMQZQLGKLQT5349-80-20 08:08:004.8[facility] QQENOGPZLU7212-52-57 08:08:003.4[facility] HospitalWryaqbMPKKYNIFJZ7019-80-85 08:08:008.7[facility] HospitalSvuadzHYEGYMDXON4746-72-10 08:08:000.9[facility] HospitalBoxuhlEKJQOESZKJ7388-03-26 08:08:002.3ML[facility] CenterHEMATOLOGY 2014-12-13 08:08:000.3ML[facility] CenterXrfmqsHEPOINYTUQ0765-41-12 08:08:000.6ML[facility] CenterJvzsxmHPUUNSGUUU0599-17-74 08:08:000.[address] [place] [address] OYWOHHSSYJ1668-36-06 08:08:006.7[facility] HospitalPiancsEASXQZTYBH3381-23-52 08:08:004.01[facility] HospitalFbnaiaKEQNDTKQNO8495-10-22 08:08:0012.7[facility] HospitalBixzzsDXYJEFAHWK8050-26-14 08:08:0038.4[facility] HospitalHEMATOLOGY 2014-12-13 08:08:0096.0[facility] HospitalAeysubYBKOMGMWHU1576-25-29 08:08:00 Test Item Value Reference Range Interpretation Comments MCH (test code = MCH) 31.8 pg 27.0-31.0 [facility] HospitalNrfzllRAWJZWKISA2782-41-05 08:08:0033.[address] [place] [address] OYZHLEOQYA0960-33-42 08:08:0012.8[facility] HospitalQuoyhaXAZQILWAKB6299-59-24 08:08:009.7[facility] HospitalOgtssqAJWWKPGGPH3320-68-95 08:08:07274NSGonzales Memorial HospitalPARATHYROID ZWFMNTS7918-70-50 08:08:001.08[facility] PARATHYROID RQEUSPU7592-40-41 08:08:001.12[facility] HospitalIMMUNOLOGY 2014-12-12 22:07:00Negative *NA*(12/12/14 5:07 PM)[facility] BACTERIAL - AWJYRVYK9014-41-16 15:14:00Negative (12/12/14 10:14 AM)[facility] HospitalDRUG QTLHXK2346-34-64 15:14:00Negative *NA*(12/12/14 10:14 AM)[facility] HospitalDR[facility] VIQFEN9201-84-35 15:14:00Negative *NA*(12/12/14 10:14 AM)[facility] HospitalDR[facility] IKXPXR9877-14-31 15:14:00See Note (12/12/14 10:14 AM)[facility] HospitalDR[facility] KXIXBY0442-90-64 15:14:00Negative *NA*(12/12/14 10:14 AM)[facility] HospitalDR[facility] GUQZRA3529-51-87 15:14:00Negative *NA*(12/12/14 10:14 AM)[facility] HospitalDR[facility] LDOWSN7564-75-08 15:14:00 Positive *ABN*(12/12/14 10:14 AM)[facility] HospitalDR[facility] CVBIPE2797-79-03 15:14:00Positive *ABN*(12/12/14 10:14 AM)[facility] HospitalDRUG SCREEN 2014-12-12 15:14:00Negative *NA*(12/12/14 10:14 AM)[facility] HospitalDR[facility] CBBACU4327-82-82 15:14:00Positive *ABN*(12/12/14 10:14 AM)[facility] DRUG BQGBSK4297-28-41 15:14:00Positive *ABN*(12/12/14 10:14 AM)[facility] HospitalUR[facility] AND ZPTEI8503-97-57 15:14:001[facility] HospitalURINE AND STOOL 2014-12-12 15:14:0017[facility] HospitalURINE AND QCXNQ1628-26-75 15:14:00 Small *ABN*(12/12/14 10:14 AM)[facility]UR[facility] AND JGVTV9484-78-11 15:14:00Negative (12/12/14 10:14 AM)[facility]UR[facility] STOOL 2014-12-12 15:14:00Negative (12/12/14 10:14 AM)[facility]UR[facility] KTRTX6629-20-00 15:14:00Negative *NA*(12/12/14 10:14 AM)[facility] URINE AND LJXKV8815-04-60 15:14:00Clear (12/12/14 10:14 AM)[facility]UR[facility] AND OGJSX8278-15-06 15:14:00Yellow *NA*(12/12/14 10:14 AM)[facility]UR[facility] AND HOYMA2249-10-86 15:14:007.0[facility] HospitalUR[facility] AND MAXSY0176-08-11 15:14:001.023[facility] HospitalCARDIAC ENZYMES 2014-12-12 13:09:42809JYGonzales Memorial HospitalCARDIAC KDNGBKP1993-18-29 13:09:00 1.5[facility] HospitalCARDIAC YCJARXC6543-92-12 13:09:001.[address] [place], [place] [address]CHEM OASMP3122-50-78 13:09:[address] [place], [place] [address]CHEM PANEL 2014-12-12 13:09:000.[address] [place], [place] [address]CHEM MBZTB8301-82-85 13:09:0021[facility] HospitalCHEM ZTMZV0322-71-61 13:09:0027[facility] HospitalCHEM BNQTS3801-11-24 13:09:006.0[facility] HospitalCHEM BKZVI2644-65-07 13:09:00 2.9[facility] HospitalCHEM SABUC3215-63-97 13:09:[address] [place], [place] [address]CHEM KPPYY4211-99-24 13:09:001.[address] [place], [place] [address]CHEM PANEL 2014-12-12 13:09:0064[facility] HospitalCHEM VBSWH8172-38-86 13:09:[address] [place], [place] [address]CHEM UQDLO1749-96-17 13:09:000.[address] [place], [place] [address]CHEM EZVQZ3511-87-58 13:09:[address] [place], [place] [address]CHEM AOYEQ6744-22-26 13:09:00 104[facility] HospitalCHEM CLFOD2754-93-55 13:09:70279XSGonzales Memorial HospitalCHEM SXSGV8864-39-35 13:09:008.[address] [place], [place] [address]CHEM PANEL 2014-12-12 13:09:0026[facility] HospitalCHEM WMCQF2139-74-42 13:09:90578FSGonzales Memorial HospitalCHEM YHYJK7288-07-42 13:09:003.9[facility] HospitalCHEM FVPFV1919-99-84 13:09:000.9[facility] HospitalCHEM FSOSS6931-66-89 13:09:00 15[facility] HospitalCHEM ZMZWM7557-13-49 13:09:0088[facility] CHEM DKYGV9977-25-70 13:09:009.9[facility] HospitalHckoauRUXIXIYTLY6921-86-14 13:09:000.98[facility] HospitalBhflqcXQVCUGYQQJ9637-08-98 13:09:00 Test Item Value Reference Range Interpretation Comments PT (test code = PT) 13.0 s 12.0-14.7 [facility] HospitalIlxluxKYLCDMTOOM7588-93-66 13:09:00 Test Item Value Reference Range Interpretation Comments PTT (test code = PTT) 28.4 s 22.9-35.8 [facility] HospitalEtdzqkEAUXYZLOYY2582-70-93 13:09:[address] [place] [address] OFRGPKWFLG3900-36-06 13:09:0013.0[facility] HospitalEqbaneODKKJOKNIY8229-15-79 13:09:009.0[facility] HospitalTsswwsDRHEUCKDEI0455-20-76 13:09:26636IXGonzales Memorial HospitalAxhpupBEQQOYBDOZ5672-17-68 13:09:0012.5[facility] HospitalHEMATOLOGY 2014-12-12 13:09:00 Test Item Value Reference Range Interpretation Comments MCH (test code = MCH) 32.1 pg 27.0-31.0 [facility] HospitalFxptnuHHYXCFKFBB5343-13-33 13:09:0096.7[facility] PRANORBHSQ0649-86-62 13:09:0037.8[facility] VazaodMXSFVIATQS1454-56-18 13:09:008.9[facility] HospitalYfigecEOLQZZFQCD8752-04-79 13:09:003.91[facility] HospitalMmjbjaFHFGIWABIU0074-89-00 13:09:000.5[facility] HospitalHEMATOLOGY 2014-12-12 13:09:005.[address] [place], [place] [address]OswbluUTFDQHDWFV2775-73-47 13:09:002.5[facility] HospitalJdwzazMCJEKNEAGC7395-56-76 13:09:003.8[facility] SCOUWCJQLA1860-80-90 13:09:0058.0[facility] HospitalZpsmnvFHTWWNUGFQ8832-66-63 13:09:000.3MLamb [facility] CenterKunbchBCDNZBEVHU6959-14-57 13:09:000.9[facility] HospitalCbkbgxQPHTRHWBFA8415-48-33 13:09:0027.9[facility] HospitalHEMATOLOGY 2014-12-12 13:09:009.8[facility] HospitalPARATHYROID PUGPOXV1756-10-85 13:09:001.07[facility] HospitalPARATHYROID CWMBQHU1142-50-50 13:09:001.05[facility] NoxgqvIFZWQITILS7201-19-72 13:09:00<0.003[facility] HospitalJykciiDEJWNDHAJX2196-62-49 13:09:00<[address] [place], [place] [address]CHEM PANEL 2014-12-12 10:25:001.[address] [place], [place] [address]CHEM EERQZ7958-99-36 10:25:002.8[facility] HospitalCHEM LFPKZ2004-34-50 10:25:0019[facility] HospitalCHEM UJEKG8287-79-49 10:25:0073[facility] HospitalCHEM UYBEO5674-52-72 10:25:0020 [facility] HospitalCHE[facility] TKBPJ5401-56-43 10:25:000.[address] [place] [address] CHEM IJPME9357-39-91 10:25:0027[facility] HospitalCHEM YCUNO7442-92-32 10:25:003.[address] [place], [place] [address]CHEM OXTUH4982-07-12 10:25:006.0[facility] HospitalOdwlzfNNQAZGTLSU5311-43-27 10:25:00<3ML[facility] WEVHRVNOLQFC6576-97-12 14:47:0010.0 CphxcyyohNJJEPUCXCGPK7420-91-00 14:47:00 103 SogncsrlqKJVFWLDCNVPD4258-67-14 14:47:004.0 SoutheastELECTROLYTES 2014-10-27 14:47:60204MR AxgkdlxycHEPVWVTPDLWX3904-22-75 14:47:0091 [facility] SHBLOIGBGHFU8913-58-32 14:47:14366KO PovuvncutNKLUSZRBZTFI4318-20-41 14:47:0029 XjvqhowilCPWNZUNEJTUA0992-55-82 14:47:008.9 NyxgihwcbXCXHBRADDMVY8326-06-19 14:47:001.0[facility] HospitalGmnbasdreHNOFXGJKCIDW0733-03-50 14:47:0015[facility]HEMAT[facility]Y 2014-10-27 14:47:0074.6MH ZrpilzjwuOLPBRAMVZP1168-46-15 14:47:001.9[facility] CQCZTSOQOO7255-95-92 14:47:0010.8[facility] HospitalHrguxovlgTUCVYMMKXP1850-96-75 14:47:001.7[facility] HospitalRnszhqnluTGRDBGGSOR6152-76-55 14:47:001.2M YkxxouacrDJFJMBKMXG7636-42-85 14:47:009.6M NefekbsfkZBFYFPTSHH9831-02-61 14:47:0012.9[facility]HEMAT[facility] 2014-10-27 14:47:000.2M AuzbehevgGLYWWUDTIN3957-85-71 14:47:000.2M[facility] RONRVLBXDH0194-85-60 14:47:001.4[facility] HospitalQzjgenlkjCCQVJLRYGD0232-82-56 14:47:0096.2MKindred Hospital NortheastVoyaqvufrSGDZVMMQBW7477-93-30 14:47:00 Test Item Value Reference Range Interpretation Comments MCH (test code = MCH) 32.8 pg 27.0-31.0 [facility] HospitalTafsdzaduHBTAOTHXUD9421-80-40 14:47:0043.9[facility] HospitalYhhwnfegqKNREJVKFFV2648-23-18 14:47:0034.1MKindred Hospital NortheastJnkieyuwgWLDJGXILMC0940-59-27 14:47:0014.5[facility]HEMAT[facility]Y 2014-10-27 14:47:004.57[facility] HospitalRbtfojxbsVRFAUYIWAZ6317-18-32 14:47:0015.0[facility] MFICZXSIMY1098-48-36 14:47:009.2MKindred Hospital NortheastSmddruwfwIIHJFVIKWJ9391-31-80 14:47:0013.3M BiakmnabtTGNQNJKAEK7945-44-90 14:47:39068HBGrafton State HospitalDRUG PBQTXE6074-79-13 21:34:00Positive *ABN*(10/26/14 4:34 PM)[facility]DR[facility] DNBBNR7876-31-64 21:34:00Negative *NA*(10/26/14 4:34 PM)[facility] VISYVY4843-98-01 21:34:00 Positive *ABN*(10/26/14 4:34 PM)[facility] BZTQNK2360-07-20 21:34:00 Negative *NA*(10/26/14 4:34 PM) [facility] OEMJWX5811-23-68 21:34:00Negative *NA*(10/26/14 4:34 PM) [facility]DR[facility] MDQTBQ3831-22-47 21:34:00See Note 5(10/26/14 4:34 PM) [facility] ABOVWD9419-56-71 21:34:00Negative *NA*(10/26/14 4:34 PM) [facility] KXTUXS3108-21-49 21:34:00Positive *ABN*(10/26/14 4:34 PM) [facility] LSRWT5977-12-44 21:34:00Negative (10/26/14 4:34 PM) [facility] EQSZZ2512-63-63 21:34:000.2MH [facility] URINE AND JEYFQ9553-43-77 21:34:00Negative *NA*(10/26/14 4:34 PM)[facility] URINE AND APYXL4809-11-83 21:34:00Negative (10/26/14 4:34 PM) [facility] GZZBR8018-14-96 21:34:00Negative (10/26/14 4:34 PM) [facility] NMNUD5430-38-17 21:34:00Yellow *NA*(10/26/14 4:34 PM) [facility] STOOL 2014-10-26 21:34:00Clear (10/26/14 4:34 PM) [facility] CIVKJ7750-70-46 21:34:00 Test Item Value Reference Range Interpretation Comments UA pH (test code = UA pH) 6.0 1 5.0-8.0 [facility] QFEDG5370-56-17 21:34:00 Test Item Value Reference Range Interpretation Comments UA Spec Grav (test code = UA Spec 1.020 1 Grav) [facility] QENOAZY9495-39-37 20:43:26466ZV [facility] ENZYMES 2014-10-26 20:43[facility].1[facility] KOMDPGB9329-07-69 20:43:00<0.02 [facility] THUKWQU5273-90-29 20:43:001.4 [facility] UYZYM2733-38-08 20:43:0067MH [facility] LUBZQ2083-16-89 20:43:009.7MH [facility] PANEL 2014-10-26 20:43:0017MH [facility] YAOFR4417-78-65 20:43:0017 [facility] VQHZT7318-38-42 20:43:007.3MH [facility] TCTGW5726-57-84 20:43:003.8MH [facility] HJUXZ1382-27-44 20:43:000.9 [facility] DUGAI1132-43-59 20:43:0027 [facility] MYRHP3440-75-56 20:43:008.6MH [facility] PANEL 2014-10-26 20:43:000.3M [facility] RQFMO8282-63-44 20:43:14995IN [facility] FQRSX1719-01-93 20:43:95025LH [facility] JTQEO8485-31-04 20:43:26601FC [facility] OYCDN2409-88-91 20:43:0022MH [facility] ABXNE3895-78-54 20:43:001.3M [facility] GABXT5550-80-14 20:43:71100ED [facility] PANEL 2014-10-26 20:43:003.7 [facility] GJRWX1458-00-61 20:43:0030 [facility] WJUKK4165-85-86 20:43[facility]003.5[facility]vlWUOFJBHFJH0322-60-01 20:43:000.94[facility]SaytbzpycWAJFZIBEQM9937-19-03 20:43:00 Test Item Value Reference Range Interpretation Comments PT (test code = PT) 12.5 s 12.0-14.7 OdpusvlilIYVKCNNFER4326-52-31 20:43:008.9 PftdxvrkgKSJMFQBWUK8740-79-75 20:43:17744WS BzcjkffibSKVMXPYUKO3810-81-13 20:43:00 Test Item Value Reference Range Interpretation Comments MCH (test code = MCH) 31.4 pg 27.0-31.0 [facility]ybpvvjhgVZRYXJOVRL3462-59-38 20:43:0013.6M EtajhdeicKEFWEVYHGI7780-51-71 20:43:0032.7 VjmafynhdTFHIBAVJIP6897-23-99 20:43:0045.6M [facility] 2014-10-26 20:43:0096.3MH DgatquidcMFNUOQSTHP4089-89-40 20:43:004.74[facility] EVZKCRWXMD1773-02-53 20:43:0014.9 FfciljhdrZKFVNBLTVF8678-16-19 20:43:0012.5 CsgfepvpiHHHDEKWUMI8550-84-08 20:43:000.3M LojjsecnsFRBIQTWDAS7369-14-00 20:43:000.1M RccnxlphzFIUJJFKKCB5976-85-50 20:43:001.3M [facility] 2014-10-26 20:43:0010.1M LcbpzwqpjBIPFDIEIUX6665-25-27 20:43:0022.5[facility] VGSAREXVYY9315-12-06 20:43:0064.1M HzqecqgerQVSUVQPELW4234-34-93 20:43:008.0 GvrvhllvpCPSNMGIDFZ1023-05-86 20:43:002.6MH SxklzxljsURJZQLMAQC0395-65-67 20:43:002.8 FxgnyamkdMQFPTTDAJE8001-17-00 20:43:000.7 [facility] 2014-10-26 20:43:0020[facility] HospitalZazrnbwilVJMQQYDWKS7263-10-51 20:43:00<0.003 SiwdgwsurAILLWIFKSL5597-11-85 20:43:00<3M[facility] CFZJRZU5910-03-43 10:50:001.[address] [place], [place] [address]CARDIAC MZPGSPX8161-82-86 10:50:001.[address] [place], [place] [address]CARDIAC UHUIEKT4757-27-16 10:50:00<0.02[facility] CARDIAC ZMUYMLI7620-49-01 10:50:45885WZ[facility] ENZYMES 2014-07-20 10:50:00<0.010[facility] MOKJSA6548-25-08 02:22:00See Note 4(07/19/14 9:22 PM)[facility] POQXMQ4828-72-26 02:22:00Negative *NA*(07/19/14 9:22 PM)[facility] 2014-07-20 02:22:00Negative *NA*(07/19/14 9:22 PM)[facility] AFXDZE7396-32-55 02:22:00Negative *NA*(07/19/14 9:22 PM)[facility] DRUG BQAGVW0347-40-45 02:22:00Positive *ABN*(07/19/14 9:22 PM)[facility] [id number] 02:22:00Positive *ABN*(07/19/14 9:22 PM)[facility] KSVMJT9303-73-99 02:22:00Negative *NA*(07/19/14 9:22 PM)[facility] XQVMDK9453-75-95 02:22:00Negative *NA*(07/19/14 9:22 PM) [facility] FHCHR5495-77-53 02:22:00Negative (07/19/14 9:22 PM)[facility] HSSEM4843-76-38 02:22:00Negative (07/19/14 9:22 PM)[facility] ROLFN9211-81-74 02:22:000.2[facility] XBXKV4284-70-94 02:22:00Yellow *NA*(07/19/14 9:22 PM)[facility] FSQBL3572-67-26 02:22:00 Test Item Value Reference Range Interpretation Comments UA Spec Grav (test code = UA Spec 1.042 1 Grav) [facility] RNUOC5290-82-94 02:22:00Clear (07/19/14 9:22 PM) [facility] APIBW2216-18-82 02:22:00 Test Item Value Reference Range Interpretation Comments UA pH (test code = UA pH) 6.0 1 5.0-8.0 [facility] PAWCP6580-42-73 02:22:00Negative (07/19/14 9:22 PM)[facility] DUZFS3278-21-56 02:22:00Negative *NA*(07/19/14 9:22 PM)[facility] ZUJZZ7251-52-69 02:22:00 Negative (07/19/14 9:22 PM)[facility] WWNPK6156-71-34 02:22:00Negative *NA*(07/19/14 9:22 PM)[facility] STOOL 2014-07-20 02:22:00Negative (07/19/14 9:22 PM)[facility] WXPLM7446-00-07 02:22:00None Seen (07/19/14 9:22 PM)[facility] OMGED2052-13-45 02:22:00None Seen (07/19/14 9:22 PM)[facility] CHEM NSFON1847-29-70 23:53:003.[address] [place], [place] [address]CHEM OZHZX8494-29-05 23:53:[address] [place], [place] [address]GeifhtGRJCDOQUXV0417-73-97 23:53:006[facility] HospitalCHEM PEENR1301-39-65 23:08:0041[facility] HospitalCHEM PANEL 2014-07-19 23:08:001.[address] [place], [place] [address]CARDIAC VPOIMKL2455-48-58 22:55:00 0.9[facility] HospitalCARDIAC NMCVHJP0461-98-60 22:55:00<0.02[facility] HospitalCARDIAC XRAYWKI9733-09-56 22:55:74009CIGonz[facility] Hospital CARDIAC VBUBJVM5188-88-91 22:55:[address] [place], [place] [address]CHEM GUSNV0802-54-78 22:55:[address] [place], [place] [address]CHEM MUWFH9704-76-38 22:55:[address] [place], [place] [address]CHEM RIVAL1556-37-69 22:55:[address] [place], [place] [address]CHEM PANEL 2014-07-19 22:55:003.[address] [place], [place] [address]CHEM AJXQR0878-36-13 22:55:0016[facility] HospitalCHEM UDHYM7443-67-15 22:55:0073[facility] HospitalCHEM SJGMY6121-61-31 22:55:006.[address] [place], [place] [address]CHEM FIUHO4686-44-50 22:55:00 38[facility] HospitalCHEM PCGYD1790-04-93 22:55:003.[address] [place] [address] CHEM JPVUQ8982-64-93 22:55:0027[facility] HospitalCHEM RKAUI7690-16-09 22:55:[address] [place], [place] [address]CHEM KISQM5475-05-91 22:55:0083[facility] HospitalCHE[facility] OORSC9977-97-88 22:55:32017UZGonzales Memorial HospitalCHEM PANEL 2014-07-19 22:55:0025[facility] HospitalCHEM IGDMQ2662-59-19 22:55:[address] [place], [place] [address]CHEM ECMIK3981-82-02 22:55:001.2[facility] CenterCHEM MTNKX5357-70-92 22:55:0019[facility] HospitalCHEM URINV5125-23-48 22:55:0082 [facility] HospitalCHE[facility] XIMKT2275-86-62 22:55:81597FGGonzales Memorial Hospital CHEM LPBJQ1849-56-08 22:55:003.8[facility] HospitalPyqvwaSPRJJESJKC8690-52-80 22:55:005.0[facility] HospitalWbfeimYVIUDXZLLO2383-22-43 22:55:000.0[facility] HospitalKlmmlwAXTBLSJFEO9421-24-56 22:55:002.7[facility] HospitalHEMATOLOGY 2014-07-19 22:55:0011.[address] [place], [place] [address]UwpmpwJNAVBBNDDY5038-07-04 22:55:0029.5 [facility] HospitalMrcjdzQNZEWHCOXY0850-06-55 22:55:003.5[facility] PBJLFKYOCB9560-59-26 22:55:0055.8[facility] HospitalIxwssgOYASEQTIFY7907-77-42 22:55:000.0[facility] HospitalLvnowiZFRNRZCFOS1771-28-05 22:55:000.[address] [place], [place] [address]IpykzsEUBFQOECFO0858-83-30 22:55:001.0[facility] HospitalHEMATOLOGY 2014-07-19 22:55:00 Test Item Value Reference Range Interpretation Comments PT (test code = PT) 12.5 s 12.0-14.7 [facility] HospitalTbrdwwNQNLZYFATS5942-44-75 22:55:000.94[facility] OAROLIOOGA3801-23-89 22:55:00 Test Item Value Reference Range Interpretation Comments PTT (test code = PTT) 26.6 s 22.9-35.8 [facility] HospitalSgvirdRKLJBJMJST0751-57-47 22:55:0012.7[facility] JEFPZHCRUO7928-11-18 22:55:91926BHGonzales Memorial HospitalAxezkwPJJIHTCQWV8335-02-66 22:55:0033.9[facility] HospitalTshzvfCYMSNHXQMT3207-65-61 22:55:00 Test Item Value Reference Range Interpretation Comments MCH (test code = MCH) 32.3 pg 27.0-31.0 [facility] HospitalPkctngISYKQIVNLX3173-47-62 22:55:0095.1[facility] IHYSRURQKM0898-48-12 22:55:0042.4[facility] HospitalUyzdfjCKSPEMTEIL6140-25-51 22:55:009.7[facility] HospitalAubiuiTARWTRKNPU0264-32-28 22:55:009.0[facility] HospitalKedzsfSDAZJWJHYV5336-94-24 22:55:004.46[facility] HospitalHEMATOLOGY 2014-07-19 22:55:0014.4[facility] HospitalKmzdgdNPFKOZZDG9396-13-72 10:19:0013.8[facility] HospitalAlrfqsTYGCBETCA0602-02-71 10:19:003.5[facility] JBDSTYAHX9291-00-77 10:19:0015[facility] HospitalLfxupxUIQNNXBQU8200-55-98 10:19:[address] [place], [place] [address]UtneqfABLXMPGXR4467-08-57 10:19:0012[facility] HospitalOsumqiQAKVYSXFM2125-17-35 10:19:000.8[facility] HospitalVmamkvFIVCJYMFX2635-90-46 10:19:0081[facility] HospitalDbdljdFWDWAPFGU9218-87-78 10:19:007.4[facility] HospitalDabthvLMCRFGLMX9953-32-62 10:19:000.[address] [place], [place] [address]CHEMISTRY 2011-07-12 10:19:008.8[facility] HospitalTpefuyGIORJBSQF1018-59-37 10:19:0022[facility] HospitalGjfhcpEYCSHWZDV6530-39-68 10:19:28068IAGonzales Memorial Hospital BJGURXGEN9414-82-69 10:19:003.8[facility] HospitalPemhcoQRXTTJKYI2375-39-70 10:19:0024[facility] HospitalBpjcylPVYUDFYJM6130-87-86 10:19:86284OAGonzales Memorial HospitalXuxnphSDIKLHYTS5402-30-38 10:19:003.9[facility] HospitalYjmtlzPFLHNXHYU9915-64-02 10:19:0079[facility] HospitalDemlrxUIYYXMPRK5526-07-35 10:19:0041[facility] HospitalFgbatiHWHAVPYND7615-78-24 10:19:001.9[facility] EqtwzcMLCAKBRUL4347-10-40 10:19:003.6[facility] EvfsrhMEEVYWAIWE2070-94-23 10:19:0015[address] [place] [address] FhqvxmQMNAIYHOIT0707-12-61 10:19:004.49[facility] HospitalHEMATOLOGY 2011-07-12 10:19:0010.7[facility] HospitalSvvezzYYXEHKBOOC2945-43-70 10:19:00 Test Item Value Reference Range Interpretation Comments MCH (test code = MCH) 33.7 pg 27.0-31.0 H [facility] HospitalIwgurnDQTGIRITJE3380-52-89 10:19:[address]97.[address] [place] [address] UAAHOBDWDD5535-11-19 10:19:0013.5[facility] HospitalKbxkvoAOSBWYINDQ9453-17-10 10:19:0043.8[facility] HospitalYahadnBIUKTKDHXM7129-68-68 10:19:0034[address] [place], [place] [address]GbspzeUXNUZUODMG5950-89-51 10:19:009.[address] [place], [place] [address]HEMATOLOGY 2011-07-12 10:19:28740SXGonzales Memorial HospitalIojbsvWAPFVMJMVX4733-54-68 10:19:[address] [place], [place] [address]IjxfanLLIYEZRUFZ5358-35-40 10:19:[address] [place] [address] JDWLUUNBWX3280-15-85 10:19:006.7[facility] HospitalOpwvzzPGAZQUGRCE1084-22-96 10:19:[address] [place], [place] [address]SlzmvbBJLLXUSVGM7259-70-32 10:19:000.0[facility] HospitalWryucbOPGPJFEPFP3068-84-41 10:19:0024.0[facility] HospitalHEMATOLOGY 2011-07-12 10:19:0062.5[facility] HospitalKzbamzBKHVLZDTCL5520-20-22 10:19:0010.5 [facility] HospitalTxxtqwWYUEZDDDBC6583-37-75 10:19:000.4[facility] NHXKJYLQNY9065-30-14 10:19:[address] [place], [place] [address]MlwzehZFGBFNCBK8564-61-10 10:11:003.4[facility] HospitalFbgesuYJTPYNCAC5116-00-71 10:11:001.9[facility] HospitalFlbcshXZMVRVHSN2685-07-45 10:11:000.9[facility] HospitalCHEMISTRY 2011-07-11 10:11:0060[facility] HospitalNcssvpHCOLFIGPP0095-98-67 10:11:003.9[facility] HospitalPuerkoSBGUJZUFF8436-40-39 10:11:0016.3[facility] WDIMVQLUL2330-70-97 10:11:99170NQG[facility] Memorial HospitalQggugbDGFYWARLH2031-66-78 10:11:000.2[facility] CenterAeuphuREROWTDFV2154-80-55 10:11:0012[facility] HospitalJglsakUEHIPRRLI1016-40-61 10:11:003.5[facility] HospitalPzaiuyXHAVYTWHF3733-18-71 10:11:0084[facility] HospitalSdtoatJELDIMMTS7037-89-99 10:11:0039[facility] HospitalKfaesrSGSLRNVAB6460-34-51 10:11:007.4[facility] HospitalDmctmdDXLXGEZEO5041-55-78 10:11:0056[facility] HospitalHarldzBWLUAYMKB4359-36-30 10:11:000.6[facility] CenterTvkkcbBNQGMHOYX7630-35-10 10:11:0023[facility] HospitalCHEMISTRY 2011-07-11 10:11:008.8[facility] HospitalSqcgmrBDVBWADLJ7936-61-87 10:11:07781RUGonzales Memorial HospitalRlblnxKQYUITCKZ3287-04-12 10:11:[address] [place] [address] PWPSTHSWB5734-23-80 10:11:58014JQGonzales Memorial HospitalXdehuxEOZTMNUJXE7696-80-73 10:11:[address] [place], [place] [address]WarzdfIPMAGJGNON7362-64-65 10:11:0023.5[facility] HospitalSjofogCGSGRMHXGK9054-76-19 10:11:[address] [place], [place] [address]HEMATOLOGY 2011-07-11 10:11:009.8[facility] HospitalPyzkmwRBNUBCUBVZ0614-46-62 10:11:[address] [place], [place] [address]MylyfuKZKPKWUMMG1234-59-50 10:11:001.0[facility] UYLNNJUKVY3707-97-70 10:11:[address] [place], [place] [address]DwoohaJZLZFHVFTC6151-83-39 10:11:[address] [place], [place] [address]DrljsnEQEDSXURIU6381-63-42 10:11:000.7[facility] HospitalPpcyukYLSAFTSDDU8883-60-49 10:11:002.7[facility] HospitalHEMATOLOGY 2011-07-11 10:11:00 Test Item Value Reference Range Interpretation Comments MCH (test code = MCH) 34.5 pg 27.0-31.0 H [facility] HospitalViirbiVHLBEOAPXY0389-42-78 10:11:0035.3[facility] AQOMUYLYGX3740-10-41 10:11:009.0[facility] HospitalDgpkusHKISQPFXUK0101-21-45 10:11:31842BCG[facility] Memorial HospitalSzywihYSLUYHEHWM1462-49-66 10:11:0013.4[facility] HospitalBmoddjGKQVFBCYQL7266-63-41 10:11:0040.9[facility] HospitalHEMATOLOGY 2011-07-11 10:11:0097.8[facility] HospitalIbrroyJYGBMGLRJE6676-19-02 10:11:004.19 [facility] HospitalHikdpbJTOWNMHMEU8759-65-52 10:11:0014.4[facility] ZRAALOCMAC5401-62-96 10:11:009.7[facility] HospitalJgkzbsLNJTCPVCPI4055-65-13 10:11:00Negative *NA*(07/11/2011 04:11:00)[facility]CHE[facility] 2011-07-10 13:02:00See Note 7(07/10/2011 07:02:00)[facility] OBLXAUZPV3986-34-64 13:02:00Negative *NA*(07/10/2011 07:02:00)[facility] HospitalBrjwqjHAYIAVQDN2800-77-72 13:02:00Negative *NA*(07/10/2011 07:02:00)[facility] HospitalDegtehWPJUPPKGT9773-18-97 13:02:00Negative *NA*(07/10/2011 07:02:00)[facility] HospitalXbuosmTCQCOCWTY1020-10-45 13:02:00Positive *ABN*(07/10/2011 07:02:00)[facility] HospitalQfydzyODKXAKPND2848-32-40 13:02:00Negative *NA*(07/10/2011 07:02:00)[facility] HospitalCvyobnGXEQVKGTK7483-63-84 13:02:00 Negative *NA*(07/10/2011 07:02:00)[facility] HospitalZttizyFTZIDAIXE1396-21-31 13:02:00Positive *ABN*(07/10/2011 07:02:00)[facility] HospitalCHEMISTRY 2011-07-10 13:02:00Negative *NA*(07/10/2011 07:02:00)[facility] YQPXPOVBW5590-21-89 13:02:00Negative *NA*(07/10/2011 07:02:00)[facility] HospitalFUNGAL - EBZBZTEP8503-06-27 13:02:00None Detected 2(07/10/2011 07:02:00)[facility] HospitalNwpdosQBIQDIIFNO0746-71-88 13:02:00Not Indicated *NA*(07/10/2011 07:02:00)[facility] HospitalWqicmhWCKLIAIKOB0333-75-89 13:02:001.009[facility] HospitalMnekkeTYXBAIZAKO3063-77-00 13:02:00Negative mg/dL (07/10/2011 07:02:00) [facility] HospitalGxybxuNFWVBBGOAG3233-67-00 13:02:006.5[facility] AGDERJSRKD2907-58-41 13:02:00Negative mg/dL *NA*(07/10/2011 07:02:00)[facility] HospitalBtccqoKTJLYQCSLF2812-95-42 13:02:00Negative (07/10/2011 07:02:00)[facility] HospitalIbngivUECIDEBDQP2099-71-95 13:02:00Negative (07/10/2011 07:02:00) [facility] HospitalJhkgkqRIFTYHHMMJ8434-40-70 13:02:00Negative (07/10/2011 07:02:00)[facility] HospitalUjnmvoKRHNILLISG8583-98-52 13:02:00Negative mg/dL *NA*(07/10/2011 07:02:00)[facility] HospitalQuprysSRDFKLNHWJ2574-20-21 13:02:00 Negative *NA*(07/10/2011 07:02:00)[facility] HospitalGfosvgARMSQAEIVA8164-92-59 13:02:00Clear (07/10/2011 07:02:00)[facility] HospitalUhkugmUXHPUTWUVK9367-61-85 13:02:00Light Yellow *NA*(07/10/2011 07:02:00)[facility] HospitalCHEMISTRY 2011-07-10 09:00:001.4[facility] HospitalRlmzolSOTEGAGIT2998-21-68 09:00:001.260[facility] HospitalCpefsnFAUTFSAZJ8865-24-59 09:00:002.0[facility] HIJIBLFBB3255-16-80 09:00:003.0[facility] HospitalTwtqnwDVGYSUVJS7581-80-27 09:00:001.2[facility] CenterSeeuewJNLWCGAJS4995-47-46 09:00:0015.2[facility] CenterYrcokiUWBAUCBTO8446-25-83 09:00:0012[facility] HospitalCHEMISTRY 2011-07-10 09:00:003.2[facility] CenterLugmniCRCYHDVYW2564-67-32 09:00:0037[facility] HospitalUpvurhLSJUJTTYD4922-78-54 09:00:0027[facility] CWQMWGNMS9946-66-92 09:00:008.6[facility] CenterZfrmclHSPRAGTEH0007-05-11 09:00:0022[facility] HospitalDigvrqFYTMWYMAY2923-52-69 09:00:006.9[facility] HospitalVojukjZGOVWKYCE4064-97-27 09:00:33177CRGonzales Memorial HospitalPaxwyvRSLVHTPKY3744-57-00 09:00:004.2[facility] CenterAtzhwyTVDNEOKRJ6814-75-06 09:00:000.3[facility] CenterXcwzdoYISBQDBDM0201-78-74 09:00:003.7[facility] HospitalCHEMISTRY 2011-07-10 09:00:0011[facility] HospitalMxxrtjARKRYDWOQ8153-42-57 09:00:000.9[facility] HospitalSqeyrxGZNUOHOJW5301-94-09 09:00:0087[facility] ECTCWVALJ4049-66-73 09:00:41529XUGonzales Memorial HospitalNjobmnMGVFAHWTS2029-01-37 09:00:84632YRGonzales Memorial HospitalSzjcfqHBQMTIWXCB7060-01-49 09:00:000.4[facility] HospitalQrdtxtQHZKHGCHKM8153-37-81 09:00:003.0[facility] HospitalHEMATOLOGY 2011-07-10 09:00:002.0[facility] HospitalDvurcxIYRQNBPMBF4906-22-46 09:00:008.0[facility] HospitalCmnbwvQTPUXSMHZG3805-29-54 09:00:001.3[facility] YNRUBOHHKB7568-55-88 09:00:001+ *ABN*(07/10/2011 03:00:00)[facility] HospitalQudhwaPTNCZSLMUC1626-57-18 09:00:0011.0[facility] HospitalHEMATOLOGY 2011-07-10 09:00:000.3[facility] CenterBvivmyVZEJIWGVSQ2982-55-78 09:00:000.0[facility] HospitalPniymeTACSUEPQXD3288-27-29 09:00:0068.9[facility] GKPLVLVDQL1189-02-43 09:00:0016.8[facility] HospitalIcfxxmOUSAJETMCW6030-63-51 09:00:0013.4[facility] HospitalIpuzmmPHPHMJUJPH9688-75-69 09:00:28862XRGonzales Memorial HospitalChhzzqGTOGXHBTFP1656-89-51 09:00:009.5[facility] HospitalHEMATOLOGY 2011-07-10 09:00:00 Test Item Value Reference Range Interpretation Comments MCH (test code = MCH) 34.2 pg 27.0-31.0 H [facility] HospitalTckejjVPBVFEPSFN4347-82-58 09:00:0034.0[facility] VAQRWJPGAD5741-52-48 09:00:15832.5[facility] HospitalEvunbiLZQKMOXLZD9316-62-70 09:00:0039.9[facility] HospitalAecakhLOIHJZGARW1751-97-57 09:00:0013.6[facility] CenterQbmafuEMVWNGJQWZ5460-37-98 09:00:003.97[facility] HospitalHEMATOLOGY 2011-07-10 09:00:0011.7[facility] HospitalRmiodnXGPSSTPMB8340-63-32 01:18:000.1[facility] CenterUannvpKVSDEUDQO4252-18-67 01:18:000.1[facility] SREEMNTFK9036-44-31 01:18:90467DKGonzales Memorial HospitalKfpewaTBXEJCEXB9754-30-61 22:35:000.7[facility] HospitalMuevdcIFUUCQZNUS4064-95-99 22:35:00Normal (07/09/2011 16:35:00)[facility] HospitalKzwafwZRGIXCPDVT5295-24-13 22:35:00Normal (07/09/2011 16:35:00)[facility] HospitalMICRO MISC - WNUVCRBH8492-11-92 13:02:00Negative 1(07/09/2011 07:02:00)[facility]
--- NOTE | 2019-10-06 17:46 | ER ---
Nurse's Notes [facility] Name: Owen Duarte Age: 49 yrs Sex: Male : 1970 Arrival Date: 10/06/2019 Time: 15:13 Bed 8 Private MD: Diagnosis: Internal derangement of knee Presentation: 10/05 15:22 Chief complaint: Patient states: right knee pain x 2 months, states that he fell about sv 2 months ago. Also reports right hand/wrist pain/swelling for years. Coronavirus screen: Proceed with normal triage. Patient denies a cough. Patient denies shortness of breath or difficulty breathing. Patient denies measured and/or subjective temperature greater than 100.4F prior to today's visit. Patient denies travel on a cruise ship or to a country the [facility] currently lists as an affected area. Patient denies contact with known and/or suspected case of COVID-19. Ebola Screen: No symptoms or risks identified at this time. Initial Sepsis Screen: Does the patient meet any 2 criteria? RR > 20 per min. No. Patient's initial sepsis screen is negative. Does the patient have a suspected source of infection? No. Patient's initial sepsis screen is negative. Risk Assessment: Do you want to hurt yourself or someone else? Patient reports no desire to harm self or others. Onset of symptoms was August 2019. 15:22 Method Of Arrival: Ambulatory sv 15:22 Acuity: IRON 3 sv Historical: - Allergies: 15:21 PENICILLINS; sv - PSHx: 15:21 neck surgery; Vasectomy; sv - Immunization history:: Adult Immunizations unknown. - Social history:: Smoking status: unknown. Screenin:00 Abuse screen: Denies threats or abuse. Denies injuries from another. Nutritional jl7 screening: No deficits noted. Tuberculosis screening: No symptoms or risk factors identified. Fall Risk None identified. Assessment: 17:00 General: Appears in no apparent distress. uncomfortable, Behavior is calm, cooperative, jl7 appropriate for age. Pain: Complains of pain in right knee and wrist. Neuro: Level of Consciousness is awake, alert, obeys commands, Oriented to person, place, time, situation. Cardiovascular: Patient's skin is warm and dry. Respiratory: Airway is patent Respiratory effort is even, unlabored, Respiratory pattern is regular, symmetrical. Derm: Skin is pink, warm \T\ dry. Musculoskeletal: Swelling absent. 18:00 Reassessment: Pt will be discharged once knee immobilizer is brought from materials. 7 18:10 Reassessment: No knee immobilizers available in the hospital, pt requested to wrap his jl7 own knee when he gets home. 2 tay bandages supplied. Vital Signs: 15:22 BP 160 / 104; Pulse 86; Resp 22; Temp 98; Pulse Ox 98% ; Weight 104.33 kg; Height 5 ft. sv 11 in. (180.34 cm); 17:30 BP 105 / 89; Pulse 73; Resp 16; Pulse Ox 99% ; jl7 15:22 Body Mass Index 32.08 (104.33 kg, 180.34 cm) sv ED Course: 15:13 Patient arrived in ED. ag5 15:21 Arm band placed on. sv 15:25 Triage completed. sv 16:48 Torito Negron PA is PHCP. [facility] 16:48 Sd Valdes MD is Attending Physician. [facility] 17:00 Patient has correct armband on for positive identification. Bed in low position. Call jl7 light in reach. Side rails up X 1. 17:01 Kari Gallardo RN is Primary Nurse. [facility] 17:16 Knee Right 3 View XRAY In Process Unspecified. EDMS 17:45 Duane Thompson MD is Referral Physician. [facility] 18:05 No provider procedures requiring assistance completed. Patient did not have IV access jl during this emergency room visit. Administered Medications: No medications were administered Outcome: 17:45 Discharge ordered by . [facility] 18:10 Discharged to home ambulatory. 7 18:10 Condition: stable 18:10 Discharge instructions given to patient, family, Instructed on discharge instructions, follow up and referral plans. medication usage, Demonstrated understanding of instructions, follow-up care, medications, Prescriptions given X 1. 18:11 Patient left the ED. [facility] Signatures: Dispatcher [employer] EDMS Joana Fleming, RN KARRI Torito Negron PA PA jmm Leal, Jahala, RN RN jl7 Gaskin, Ajare ag5 Corrections: (The following items were deleted from the chart) 15:25 15:22 Acuity: IRON 4 sv sv 15:25 15:22 Pulse 86bpm; Resp 22bpm; Pulse Ox 98%; Temp 98F; 104.33 kg; Height 5 ft. 11 in.; sv BMI: 32.0; sv
--- NOTE | 2019-10-06 17:46 | EDPHYS ---
Physician Documentation [facility] Name: Owen Duarte Age: 49 yrs Sex: Male : 1970 Arrival Date: 10/06/2019 Time: 15:13 Bed 8 Private MD: ED Physician Sd Valdes HPI: 10/05 15:27 This 49 yrs old Male presents to ER via Ambulatory with complaints of Knee jmm Pain, Wrist Pain. 15:27 The patient presents with an injury, pain. Onset: The symptoms/episode began/occurred jmm acutely, 2 month(s) ago. Modifying factors: The symptoms are alleviated by nothing. the symptoms are aggravated by movement, weight bearing. This is a 49 year old male with a history of epilepsy that presents to the ED with complaints of knee pain which began after falling off a ladder 2 month prior. Patient states he has ongoing medial knee pain, complains of popping when the knee is fully extended. Patient also complains of 2 years of pain to the right wrist since a seizure. . Historical: - Allergies: 15:21 PENICILLINS; sv - PSHx: 15:21 neck surgery; Vasectomy; sv - Immunization history:: Adult Immunizations unknown. - Social history:: Smoking status: unknown. ROS: 15:27 Constitutional: Negative for fever, chills, and weight loss, Cardiovascular: Negative jmm for chest pain, palpitations, and edema, Respiratory: Negative for shortness of breath, cough, wheezing, and pleuritic chest pain. 15:27 MS/extremity: Positive for injury or acute deformity, pain. 15:27 All other systems are negative. Exam: 15:27 Constitutional: This is a well developed, well nourished patient who is awake, alert, jmm and in no acute distress. Cardiovascular: Regular rate and rhythm. No edema appreciated Respiratory: Normal respirations, no respiratory distress appreciated 15:27 Musculoskeletal/extremity: ROM: painful acitve and passive rom noted to the right knee, painful acitve ROM noted to the right wrist. . 15:27 Skin: Appearance: Color: normal in color. 15:27 Neuro: Orientation: is normal, Mentation: is normal, Memory: is normal. 15:27 Psych: Behavior/mood is pleasant, cooperative. 17:27 Musculoskeletal/extremity: right wrist, positive finklestein test. jmm Vital Signs: 15:22 BP 160 / 104; Pulse 86; Resp 22; Temp 98; Pulse Ox 98% ; Weight 104.33 kg; Height 5 ft. sv 11 in. (180.34 cm); 17:30 BP 105 / 89; Pulse 73; Resp 16; Pulse Ox 99% ; jl7 15:22 Body Mass Index 32.08 (104.33 kg, 180.34 cm) Procedures: 17:43 Splinting: Splint applied to right leg applied by tech. Examined by me, post splint [facility] application: neurovascular intact, 2+ distal pulses palpable, brisk capillary refill noted, Patient tolerated well. MDM: 17:13 Patient medically screened. [facility] 17:43 Data reviewed: vital signs, nurses notes. Counseling: I had a detailed discussion with [facility] the patient and/or guardian regarding: the historical points, exam findings, and any diagnostic results supporting the discharge/admit diagnosis, radiology results, the need for outpatient follow up, to return to the emergency department if symptoms worsen or persist or if there are any questions or concerns that arise at home. ED course: Pain appears chronic after injury 2 months prior. Pain is mainly anterior and medial. I do not suspect DVT. Patient denies chest pain or shortness of breath. Patient is advised to follow up with ortho for reevaluation. Patient understood and agrees with the plan of care. . 10/05 15:27 Order name: Knee Right 3 View XRAY Administered Medications: No medications were administered Disposition: 10/06 09:12 Co-signature as Attending Physician, Sd Valdes MD I agree with the assessment and kdr plan of care. Disposition: 10/06/19 17:45 Discharged to Home. Impression: Internal derangement of knee. - Condition is Stable. - Discharge Instructions: Knee Pain. - Prescriptions for orphenadrine citrate 100 mg Oral Tablet Sustained Release - take 1 tablet by ORAL route 2 times per day As needed; 20 tablet. - Medication Reconciliation Form, Thank You Letter, Antibiotic Education, Prescription Opioid Use form. - Follow up: Duane Thompson MD; When: 2 - 3 days; Reason: Recheck today's complaints, Continuance of care, Re-evaluation by your physician. Signatures: Dispatcher [employer] Joana Caba RN RN Sd Ma MD MD kdr Mickail, Joel, PA PA Kari Simmons, RN RN jl7 Corrections: (The following items were deleted from the chart) 10/05 17:27 15:27 Constitutional: This is a well developed, well nourished patient who is awake, jmm alert, and in no acute distress. Cardiovascular: Regular rate and rhythm. No edema appreciated Respiratory: Normal respirations, no respiratory distress appreciated [facility] 18:10 17:27 Knee Immobilizer ordered. [place] [id number] 18:11 17:45 10/06/2019 17:45 Discharged to Home. Impression: Internal derangement of knee. jl7 Condition is Stable. Forms are Medication Reconciliation Form, Thank You Letter, Antibiotic Education, Prescription Opioid Use. Follow up: Dr. Duane Thompson; When: 2 - 3 days; Reason: Recheck today's complaints, Continuance of care, Re-evaluation by your physician. [facility]
[2019-10-06 18:16] VITALS: TEMP 98
[2019-10-06 18:17] VITALS: BP 105/89; O2SAT 99
--- NOTE | 2019-10-06 18:53 | RAD REPORT ---
EXAM DESCRIPTION: RAD - Knee Right 3 View - 10/06/2019 5:16 pm CLINICAL HISTORY: PAIN COMPARISON: No comparisons FINDINGS: No fracture, dislocation or periosteal reaction.Minimal joint effusion is suspected. No bharat int space narrowing. Mild spurring changes are present medial compartment. There is spurring at the q uadriceps attachment site. No foreign body. IMPRESSION: No acute bone finding. Minimal joint effusion is suspected. Clinical concerns for internal derangement or occult bony injury could be further assessed with MR im aging.
== END 2019-10-06 18:11 | disposition home or self-care (01) ==
LOC: ER 15:11
DX: M23.91 Unspecified internal derangement of right knee (principal); Z88.0 Allergy status to penicillin
CPT/HCPCS: 99283

== ENCOUNTER 2021-05-16 09:58 | Inpatient (IN) | payer BC ==
--- NOTE | 2021-05-16 14:10 | R.PREADM ---
PRE-ADMISSION SCREENING FORM SCREENING DATE AND TIME 05/15/2021 12:39 (TEST BAKER) ANTICIPATED REHAB ADMISSION DATE 05/16/2021 REFERRING FACILITY [facility] REFERRAL DATE AND TIME 05/15/2021 12:39 (TEST BAKER) REFERRAL ROOM# CIMU 20 ACUTE ADMIT DATE 05/08/2021 Previous Rehabilitation(s): No. ACUTE DIRECTOR OF NURSES REGISTRY/DC ALLERGY AND IMMUNOLOGY SPECIALIST Beniot Kelley ATTENDING PHYSICIAN Dr. Allan Carrillo REFERRING PHYSICIAN Dr. Allan Carrillo REHAB FACILITY [facility] CLINICAL LIAISON Amada Briceno PHYSICIAN REVIEWER Dr. Meño Piper M.D. MR# [id number] NAME Owen Ramirez ADDRESS [id number] PHONE [facility] [id number] DATE OF 1970 AGE 51 SSN# [id number] GENDER male MARITAL STATUS Single (Never ) RACE unknown race PREF. LANGUAGE (IF NON-YAKUT) Upper Sorbian ADMIT FROM 02 - [facility] PRE-HOSPITAL LIVING SETTING 01 - Home (private home/apt. board/care, assisted living, skilled nursing, transitional living) HOME TYPE AND DETAILS Type of home: mobile home # of steps to enter the residence: 5 # of steps within the residence: 2 # of levels in the residence: 1 PRE-HOSPITAL LIVING WITH Family/Relatives FAMILY SUPPORT Yes FAMILY SUPPORT DETAILS Per OT tayler pt lives with spouse PRIMARY FAMILY CONTACT NAME CRISTHIAN RAMIREZ PRIMARY FAMILY CONTACT PHONE PHONE PRIMARY FAMILY CONTACT ON ADM.? no IS PRIMARY FAMILY CONTACT AUTH. REP.? no 1ST EMERGENCY CONTACT CRISTHIAN RAMIREZ 1ST CONTACT PHONE PHONE 1ST CONTACT ON ADM. no IS 1ST CONTACT AUTH. REP.? no PHONE 2ND CONTACT ON ADM.? no PATIENT EMPLOYMENT STATUS Unknown PAYOR INFORMATION: 1ST PAYOR NAME [facility] 1ST PAYOR INJURY/ILLNESS DUE TO ACCIDENT? No ANOTHER REPUBLICAN RESPONSIBLE? No PRIMARY REHAB/ACUTE DIAGNOSIS: STEMI - Acute ST elevation myocardial infarction ONSET DATE 05/08/2021 REHAB IMPAIRMENT CATEGORY (TEJAL): 14 Cardiac does NOT meet 60% rule PRIMARY DIAGNOSIS-RELATED SURGERIES: PCI with stent to proximal LAD and D1 AM 05/08/2021 Arterial Line Insertion Procedure 05/08/2021 INTERVENTIONS: - Nuero Continue to monitor for vision changes Patient has hx of seizure disorder Patient has hx of hemorrhagic stroke Patient has hx of TBI - all of the above per MD progress note 05/14/2021 Continue with medication as prescribed by MD - per MD progress note 05/14/2021 - HLD Lipid panel - per MD progress note on 05/14/2021 - HTN Restart home lisinopril 10 mg daily - per MD progress note 05/14/2021 - Respiratory COPD on 4L home O2 Continue duonebs - all of the above per MD progress note 05/14/2021 - FEN/GI: BR: Miralax daily - per MD progress note 05/14/2021 - Renal RANDY (resolved) SCr 1.38 on admission (unclear baseline) Improved to 0.88 with fluid resuscitation Continue to trend BMP Strict I/Os - all of the above per MD progress note 05/14/2021 - DM2 Diet Controlled A1c 6.6% SSI - all of the above per MD progress note 05/14/2021 RISK FOR COMPLICATIONS: - UTI Monitor for frequency, burning, discomfort, or incontinence - CVA Monitor signs and symptoms of stroke - DVT Routine checks/assessments of pt ROBERT hose; sequential compression device as needed/prescribed - Skin Breakdown Nursing will assess skin daily using assessment tool and will place on Skin Breakdown Precautions as Indicated per protocol - Pain Clinical staff will assess patient's pain level every shift per protocol to monitor for pain manageme nt effectiveness Educate patient on pain management strategies Medications will be given and the pain level reassessed. Clinical Staff may employ other methods such as: massage, distraction, decrease stimulus, etc. as needed - Falls Educated pt on fall prevention strategies to reduce/eliminate fall risk Patient will be evaluated for Fall Precautions and will be placed on Fall Precautions as indicated pe r protocol. - Impaired Safety Educate patient on safety awareness strategies. Educate patient on safety hazards - Bleeding Monitor lab values STEMI patient's checked for change of status - Limb Ischemia Assess circulation each shift Report any changes to MD - Sespsis Monitor lab values - Respiratory Monitor O2 sats. Patient on 4L O2 via NC SUMMARY OF ACUTE HOSPITALIZATION: Pt. is a 51 yo male of unknown race. On 05/08/2021 he was admitted to [facility] with diagnosis STEMI - Acute ST elevation myocardi al infarction. His impairment category is Cardiac 09 - Cardiac Disorders (09). Pre-morbidly, Pt. was independent/mod-I in Locomotion, Safety Awareness, Balance, Social Cognition, T ransfers Control, Sphincter Control, Self-Care, Communication, and Endurance; and he had good Locomot ion, Safety Awareness, Social Cognition, Transfers Control, Balance, Sphincter Control, Self-Care, Co mmunication, and Endurance. Currently, he has deficits of Locomotion, Safety Awareness, Balance, Transfers Control, Self-Care, an d Endurance. Pt. is now referred to [facility] for acute in-patient rehabilitation in order to maximize patient's functional independence in activities of daily living, strength, ROM, and mobi lity. Patient has realistic goal of being discharged at assistance level partial assist to independent to reside at Home with Family/Relatives. Mr. Owen Ramirez is a 51 yo male that lives in a mobile home with his spouse, per OT note. Mr. Cisco richards has PMH of: HTN, DM2, HLD, COPD, morbid obesity, seizure disorder, degenerative disk disease, hx of TBI, hx of meningitis, hx of hemorrhagic stroke, and polysubstance abuse (oxycodone, amphetamines, c ocaine, BZD) who presented for STEMI on 05/08/2021. He had a PCI with stent to proximal LAD and D1 AM of 05/08/2021. Mr. Ramirez was briefly on dopamine and levophed following procedure but was stopped o n pressors 05/09/2021. Mr. Ramirez was [facility] to [facility]2021 where he required IV diuresis and duonebs for wheezing. Mr. Ramirez, per therapy notes, prior to hospitalization was independent wi th all tasks. Mr. Ramirez is currently working with OT/PT and demonstrates fair progress towards goals , however, continues to demonstrate deficits. Mr. Ramirez's deficits are the following: ambulation def icits, balance deficits, decreased activity tolerance, functional mobility, pain, transfer deficits, safety, etc. Without an acute inpatient rehab approach, Mr. Ramirez risks an unsafe discharge, increas ed weakness, increased fall risk, poor balance, difficulty with activity tolerance, poor pain control , increased caregiver burden, unsafe xfers and functional mobility. With an interdisciplinary approa ch by acute IRF, pt. demonstrates great potential and motivation to get stronger, safer, and more ind ependent to return to PLOF. Pt demonstrates a strong need for an intensive team: rehab doctor, nurse , social security assessor, and therapist to meet functional and medical goals. It is reasonable and necessary f or the patient to come to acute IRF to safely dc. Pt is medically stable but in need of 24 hour nursi ng, doctor supervision, and oversight while receiving active and ongoing intensive (OT/PT/ST). The pa tient is reasonably expected to participate in 3hours of therapy a day/15 hours a week. COVID-19 scre ening performed. Patient denies a new onset of fever, cough,difficulty breathing, sore throat, body aches and non-allergy nasal congestion in the past 24 hours. Patient denies travel outside of [place] i n the past 14days. Patient denies any contact with someone who has a confirmed diagnosis of or is und er investigation for COVID-19 in the past 14 days. Patient has been tested negative for COVID- 19 on 05/16/2021. PAST MEDICAL HISTORY COPD DM2 HTN HLD Morbid obesity seizure disorder degenerative disk disease hx of TBI hx of meningitis hx of hemorrhagic stroke polysubstance abuse (oxycodone, amphetamines, cocaine, BZD) STEMI PAST SURGICAL HISTORY: PCI with stent to proximal LAD and D1 AM 05/08/2021 Arterial Line Insertion Procedure 05/08/2021 C4-C7 DECTOMY 1997 RIGHT WRIST SURGERY ( 4 MONTHS AGO) MEDICATION ALLERGIES: SULFUR ENVIRONMENTAL ALLERGIES: - Substance Allergies None Known - Other Allergies None Known CODE STATUS: Full code WEIGHT/HEIGHT/BMI: WEIGHT 300 lbs HEIGHT 6' 0" BMI 40.7 DIET: - Diet Type Heart Healthy Diabetic Diet - Diet - Solid Texture Regular - Diet - Liquid Texture Regular - Tube Feed N/A Patient reporting pain in Neck area - pain scale not provided in OT note 05/14/2021 Patient reporting pain in the Back area - pain scale not provided in OT note 05/14/2021 REVIEW OF SYSTEMS: - Gen Alert and awake Lying in bed No apparent distress Oriented to: person, time, and place - Vital Signs Temperature: 97.4 F SBP/DBP: 143/60 Pulse: 82 Resp: 18 Vital signs stable, afebrile - CVS RRR VITAL SIGNS Temperature: 97.4 F SBP/DBP: 143/60 Pulse: 82 Resp: 18 Vital signs stable, afebrile MEDICATIONS/TREATMENT: Other- See attached MAR (Medication Administration Record). CURRENT SPHINCTER CONTROL: Pre-hospital bladder status: unspecified # of bladder accidents in the last 7 days prior to screenin Pre-hospital bowel status: unspecified # of bowel accidents in the last 7 days prior to screenin Last Bowel Movement Date: 05/15/2021 CURRENT LOCOMOTION STATUS: distance walked 150 feet CGA DETAILED CURRENT FUNCTIONAL STATUS: - Bladder accident frequency: 7-Ind - No accidents in the past 7 days - Bowel accident frequency: 7-Ind - No accidents in the past 7 days - Walking score based on distance walked: 0(N/A) score based on distance walked: 3(>=150ft) - Wheelchair score based on distance traveled: 0(N/A) QI SCORES: - Self-Care A. Eating 04-Supervision or touching assistance B. Oral hygiene 04-Supervision or touching assistance C. Toileting hygiene 04-Supervision or touching assistance E. Shower/bathe self 03-Partial/moderate assistance F. Upper body dressing 04-Supervision or touching assistance G. Lower body dressing 03-Partial/moderate assistance H. Putting on/taking off footwear 03-Partial/moderate assistance - Mobility A. Roll left and right 03-Partial/moderate assistance B. Sit to lying 03-Partial/moderate assistance C. Lying to sitting on side of bed 03-Partial/moderate assistance D. Sit to stand 03-Partial/moderate assistance E. Chair/ftj-jm-dhyfe transfer 03-Partial/moderate assistance F. Toilet transfer 04-Supervision or touching assistance G. Car transfer 88-Not attempted due to medical condition or safety concerns I. Walk 10 feet 04-Supervision or touching assistance J. Walk 50 feet with two turns 04-Supervision or touching assistance K. Walk 150 feet 04-Supervision or touching assistance L. Walking 10 feet on uneven surfaces 88-Not attempted due to medical condition or safety concerns M. 1 step (curb) 88-Not attempted due to medical condition or safety concerns N. 4 steps 88-Not attempted due to medical condition or safety concerns O. 12 steps 88-Not attempted due to medical condition or safety concerns P. Picking up object 88-Not attempted due to medical condition or safety concerns R. Wheel 50 feet with two turns 09-Not applicable S. Wheel 150 feet 09-Not applicable - Bladder and Bowel Bladder continence Bowel continence - Endurance Fair - Balance Fair - Safety Awareness Fair CURRENT FUNC. DEFICITS: Self-Care, Mobility, Endurance, Balance, and Safety Awareness CURRENT / PREVIOUS ASSISTIVE DEVICES: Oxygen Rolling Walker Pt chart reports patient being on 4L O2 HISTORY OF FALLS. HAS THE PATIENT HAD TWO OR MORE FALLS IN THE PAST YEAR OR ANY FALL WITH INJURY IN T HE PAST YEAR?: Unknown PRIOR SURGERY. DID THE PATIENT HAVE MAJOR SURGERY DURING THE 100 DAYS PRIOR TO ADMISSION?: Unknown THERAPY NOTES FROM ACUTE CARE: Attached. SPECIAL NEEDS: - Safety Concerns Bed alarm Chair alarm Fall precautions needed due to impulsivity - Oxygen connection to oxygen when in room-- portable tank when in shower - Pain Medications as prescribed by MD PRECAUTIONS: - Fall Precaution Bed alarm TABS alarm Wheel chair alarm - Skin Breakdown Risk skin assessments - Seizure Precaution Padding of bed rails, bed alarm, monitor seizure medication levels as necessary - Cardiac Precaution Monitor blood pressure, heart rate, lower extremity edema, notify MD for shortness of breath or chest pain Monitor patient for excessive elevation of heart rate and blood pressure during therapy - Safety Fall risk assist with xfers/STS - CVA risk Monitor vitals and report any changes to MD - Respiratory Monitor and assess patient regularly - DVT prevention Follow doctors orders for prevention PATIENT NEEDS ACTIVE AND ONGOING THERAPEUTIC INTERVENTION OF MULTIPLE THERAPY DISCIPLINES, INCLUDING: - Dietary and Nutrition Adequate Nutrition. Nutritional Education. Nutritional Supplements. - Occupational Therapy Cognitive Retraining. Visual Perceptual Training. ADL Training. Adaptive Equipment. Community Reinteg ration. Evaluate and Treat. Household Tasks. Patient/Family Education. Safety Awareness. Transfer Tra ining. UE ROM. UE Strengthening. - Speech Therapy Cognitive Training. Expressive Language Skills. Memory Strategies. Receptive Language Skills. Speech Intelligibility Training. - Physical Therapy Gait Training. Balance Training. Evaluate and Treat. LE ROM. LE Strengthening. Medical Equipment Asse ssment and Evaluation. Modalities Training. Patient/Family Education. Safety Awareness. Transfer Kenji sara. PATIENT NEEDS CLOSE MEDICAL SUPERVISION BY A REHABILITATION PHYSICIAN FOR: Coordination of Treatment Team Medical and Co-Morbidity Management Pain Management Respiratory/Airway Management medication management PATIENT REQUIRES 24X7 REHAB NURSING FOR MEDICAL AND FUNCTIONAL MGT. OF THE FOLLOWING DEFICITS: Disease Management Medication Management Patient/Family Education Providing Safe Environment ADL's Ambulation Pain Management Respiratory/Airway Management Skin Integrity Transfers PATIENT REQUIRES INTENSIVE, COORDINATED INTERDISCIPLINARY APPROACH TO REHAB: Arranging Home Equipment/Services Discharge Planning Family Intervention/Training Permaculture Contractor/Case Management PATIENT REHAB POTENTIAL: Dany Ramirez is able and expected to receive 3 hours of individualized therapy daily on at least 5 of ev ino 7 days Dany Ramirez's prognosis for significant practical improvement within a reasonable period of time appear s Good Expected level of measurable improvement will be of a practical value to Dany Ramirez's functional capac ity or adaptations to impairments Has a viable Discharge Plan Medically appropriate; condition is sufficiently stable to participate in intensive rehab program DISCHARGE PLAN: - Estimated Length of Stay (days) 10. - Consensus on plan Discharge plan has been discussed with primary caregiver. Patient/Family is in agreement with the hubert n. Primary caregiver is in agreement with the plan. - Patient/Family Goals Return home independently. - Planned Living Setting Upon Discharge Home, to live with Family/Relatives. Transitional Living. RECOMMENDED CARE LEVEL: IRF RECOMMENDATION DETAILS: Recommended Admission to Comprehensive Rehabilitation Program to Increase Functional [place] SCREENER'S COMPLETENESS CONFIRMATION: - Screening Confirmation The patient data collection on this preadmission screening form is finished PHYSICIANS REVIEW AND ADMISSION DETERMINATION Admit - Based on my review of the Pre-Admission Screening results, in my medical judgment and experie nce, I concur with the findings and recommend admission to [facility], as this patient requires an IRF level of care. SIGNATURE PANEL: Infection Control Nurse - [electronically] signed by Rolando Shepherd PT on 05/16/2021 at 13:55 (TEST BAKER) Physician Reviewer - [electronically] signed by Dr. Meño Piper M.D. on 05/16/2021 at 14:08 (TEST BAKER )
--- OUTSIDE RECORDS SUMMARY | 2021-05-16 20:23 | XMS REPORT | Continuity of Care Document ---
:1970 Author Organization [facility] t Address [address] [place] [address] Care Team Providers Name Role Phone Gideon Jaramillo MD Primary Care Physician DHJENNIFER Attending Clinician Unavailable Wilian RAMÍREZ, L Attending Clinician DR LONI Attending Clinician Unavailable PANCHO Admitting Clinician Unavailable DR LONI Admitting Clinician Unavailable Payers Payer Name Policy Type Policy Effective Date Expiration Date Sour ce Number BCBS OF [id number] 2020 [place] [facility] [place] [facility] BLUE ADVANTAGE Branch [id number] 2020-[place] [id number] [id number], [place] [id number] Problems Condition Condition Condition Status Onset Resolution Last Treating Co mments Source Name Details Category Date Date Treatment Clinician Date Obesity Obesity Disease Active Univers (BMI (BMI 5-06 ity of 30-39.9) 30-39.9) 00:00: [place] 00 Medical Branch Primary Primary Disease Active Overview: Univ ers osteoarthr osteoarthr 4-20 Added it y of itis of itis of 00:00: automatic [place] right right 00 ally from Medical wrist wrist request Branch for surgery [id number] Hypertensi Hypertensi Disease Active U nivers on on 06-23 ity of 00:00: [place] 00 Medical Branch SOB Diagnosis Active 2016-05-28 Mem oria 05-24 08:49:00 l SOB 00:00: Anibal 00 Active 05/24/2016 [facility] STROKE Diagnosis Active 2016-01-22 Mem oria - 08:02:00 l STROKE 00:00: Anibal 00 Active 01/19/2016 [facility] LALITHA Diagnosis Active 2014-052015-04-04 Memoria BILLING 06-05 12:06:00 l ONLY 00:00: Sod LF#[id number] LALITHA 00 BILLING ONLY LF#[id number] Active 04/04/2015 [facility] SEIZURES Diagnosis Active 2014-052015-03-30 M emoria 05-30 10:49:00 l SEIZURES 00:00: Avni n 00 Active 03/30/2015 [facility] PNEUMONIA/ Diagnosis Active 2014-052015-05-15 Memoria URINARY 0- 10:23:00 l TRACT 00:00: Sod INFECTION PNEUMONIA/ 00 URINARY TRACT INFECTION Active 02/12/2015 [facility] SEIZURES Diagnosis Active 2014-12-13 M emoria NARCOLIC 12-11 16:03:00 l INTOXICATI SEIZURES 00:00: He rmann ON NARCOLIC 00 INTOXICATI ON Active 5 [facility] SEIZURE, Diagnosis Active 2016-05-14 M emoria TODDS 10-26 08:47:00 l PARALYSIS SEIZURE, 00:00: Her story TODDS 00 PARALYSIS Active 10/26/2014 [facility] POSS Diagnosis Active 2014-10-26 Mem oria SEIZURES 10-26 17:58:00 l POSS 00:00: Sod SEIZURES 00 Active 10/26/2014 [facility] TODDS Diagnosis Active 2014-07-27 Mem oria PARALYSIS 07-19 13:07:00 l TODDS 00:00: Sod PARALYSIS 00 Active 07/19/2014 [facility] LIFE Diagnosis Active 2014-07-19 Mem oria FLIGHT 07-19 19:50:00 l LIFE 00:00: Sod FLIGHT 00 Active 07/19/2014 [facility] AMS Diagnosis Active 2014-07-20 Mem oria 07-19 02:25:00 l AMS 00:00: Sod 00 Active 07/19/2014 [facility] LEFT LOWER Diagnosis Active 2012-06-22 Memoria BACK PAIN 06-22 13:10:00 l LEFT 00:00: Anibal LOWER BACK 00 PAIN Active 06/22/2012 [facility] VIRAL VS Diagnosis Active 2011-07-10 M emoria PNEUMONIA 07-08 13:09:00 l SOB VIRAL VS 00:00: Avni n PNEUMONIA 00 SOB Active 07/09/2011 [facility] NECK PAIN Diagnosis Active 2009-052012-07-16 Memoria 05-16 13:00:00 l NECK 00:00: Anibal PAIN 00 Active 03/16/2010 [facility] Final: Problem 2015-02-18 Memor ia Pneumonia, 07:57:35 l unspecifie Final: Herm carlo d organism Pneumonia, unspecifie d organism 02/18/2015 [facility] Degenerati Problem Resolve 2012-06-24 Memoria ve disc d 11:43:02 l disease Sod Degenerati ve disc disease Resolved Problem 06/24/2012 [facility] Emphysema Problem Resolve 2012-06-24 M emoria d 11:43:02 l Sod Emphysema Resolved Problem 06/24/2012 [facility] HTN - Problem Resolve 2012-06-24 Gerson ruddy Hypertensi d 11:43:02 l on HTN - Sod Hypertensi on Resolved Problem 06/24/2012 [facility] Meningitis Problem Resolve 2012-06-24 Memoria d 11:43:02 l Anibal Meningitis Resolved Problem 06/24/2012 1spinal a a child [facility] Slipped Problem Resolve 2012-06-24 Mem oria disc d 11:43:02 l Slipped Sod disc Resolved Problem 06/24/2012 2in neck-- repaired [facility] Emphysema Problem Resolve 2016-01-23 M emoria (morpholog d 00:57:26 l ic Anibal abnormalit Emphysema y) (morpholog ic abnormalit y) Resolved Problem 01/23/2016 [facility], [facility], [facility] Cardiomega Problem Resolve 2016-05-28 Memoria ly d 02:08:50 l (disorder) Avni n Cardiomega ly (disorder) Resolved Problem 05/28/2016 [facility], [facility] Intracrani Problem Resolve 2016-05-28 Memoria al d 02:08:50 l hemorrhage Avni n (disorder) Intracrani al hemorrhage (disorder) Resolved Problem 05/28/2016 [facility], [facility] Degenerati Problem Resolve 2016-05-28 Memoria on of d 02:08:50 l interverte Avni n bral disc Degenerati (disorder) on of interverte bral disc (disorder) Resolved Problem 05/28/2016 [facility], [facility] Diabetes Problem Resolve 2016-05-28 Me moria mellitus d 02:08:50 l (disorder) Diabetes He rmann mellitus (disorder) Resolved Problem 05/28/2016 [facility] Meningitis Problem Resolve 2016-05-28 Memoria (disorder) d 02:08:50 l Anibal Meningitis (disorder) Resolved Problem 05/28/2016 spinal a a child [facility], [facility] Seizure Problem Resolve 2016-05-28 Mem oria (finding) d 02:08:50 l Seizure Anibal (finding) Resolved Problem 05/28/2016 [facility], [facility] Interverte Problem Resolve 2016-05-28 Memoria bral disc d 02:08:50 l prolapse Anibal (disorder) Interverte bral disc prolapse (disorder) Resolved Problem 05/28/2016 in neck-- repaired [facility], [facility] Traumatic Problem Resolve 2016-05-28 M emoria brain d 02:08:50 l injury Anibal (disorder) Traumatic brain injury (disorder) Resolved Problem 05/28/2016 [facility] Shortness Problem Active 2012-06-24 Me moria of breath 11:43:02 l Anibal Shortness of breath Active Problem 06/24/2012 [facility] Dyspnea Problem Active 2016-05-28 Gerson ruddy (finding) 02:08:50 l Dyspnea Anibal (finding) Active Problem 05/28/2016 [facility], [facility] SHORTNESS Diagnosis Active 2011-07-10 Memoria OF BREATH 13:09:00 l Sod SHORTNESS OF BREATH Active [facility] FEBRILE Diagnosis Active 2014-12-13 Me moria CONVULSION 16:03:00 l S NOS FEBRILE Sod CONVULSION S NOS Active [facility] CEREBRAL Diagnosis Active 2016-01-22 M emoria INFARCTION 08:02:00 l , CEREBRAL Avni n UNSPECIFIE INFARCTION D , UNSPECIFIE D Active [facility] PNEUMONIA, Diagnosis Active 2015-05-15 Memoria UNSPECIFIE 10:23:00 l D ORGANISM Avni n PNEUMONIA, UNSPECIFIE D ORGANISM Active [facility] URINARY Diagnosis Active 2015-05-15 Me moria TRACT 10:23:00 l INFECTION, URINARY Her story SITE NOT TRACT SPECIF INFECTION, SITE NOT SPECIF Active [facility] POST Diagnosis Active 2015-05-15 Mem oria TRAUMATIC 10:23:00 l SEIZURES POST Sod TRAUMATIC SEIZURES Active [facility] History of Past Illness Condition Condition Condition Status Onset Resolution Last Treating Co mments Source Name Details Category Date Date Treatment Clinician Date Discharge Problem 2014-052015-04-02 2015-04-02 Memoria Diagnosis: 1 01:54:11 01:54:11 l Epileptic 06:00: Anibal seizure Discharge 00 Diagnosis: Epileptic seizure 03/30/2015 04/02/2015 [facility] Discharge Problem 2014-07-22 2014-07-22 Memoria Diagnosis: 3- 22:34:42 22:34:42 l Seizure 05:00: Sod Discharge 00 Diagnosis: Seizure 07/20/2014 07/22/2014 [facility] Discharge Problem 2014-07-22 2014-07-22 Memoria Diagnosis: 3-18 22:34:42 22:34:42 l Noncomplia 05:00: Avni n nce Discharge 00 Diagnosis: Noncomplia nce 07/20/2014 07/22/2014 [facility] Allergies, Adverse Reactions, Alerts Allergy Allergy Status Severity Reaction(s) Onset Inactive Treating Comm ents Source Name Type Date Date Clinician Aspirin Propensi Active Itching Univer s ty to 7-17 ity of adverse 00:00: [place] reaction 00 Medical s Branch Morphine Propensi Active Itching Unive rs ty to 717 ity of adverse 00:00: [place] reaction 00 Medical s Branch Sulfa Propensi Active Itching Univers (Sulfona ty to 7-17 ity of mide adverse 00:00: [place] Antibiot reaction Medica l ics) s Branch Ketorola Propensi Active Itching Unive rs c ty to 7-17 ity of Trometha adverse 00:00: [place] mine reaction Medical s Branch Tramadol Propensi Active Itching Unive rs ty to 7-17 ity of adverse 00:00: [place] reaction 00 Medical s Branch aspirin aspirin Active Memoria l Anibal morphine morphine Active Memori a l Anibal penicill penicill Active Memori a ins ins l Sod sulfa sulfa Active Memoria drugs drugs l Anibal Toradol Toradol Active Memoria l Anibal traMADol traMADol Active Memori a l Sod Social History Social Habit Start Date Stop Date Quantity Comments Source Exposure to Not sure [facility] SARS-CoV-2 (event) [facility] Alcohol intake 2020-09-08 2020-09-08 Current drinker Unive rsity of 00:00:00 00:00:00 of alcohol [facility] (finding) Branch Cigarettes smoked 2020-09-08 2020-09-08 Univers ity of current (pack per 00:00:00 00:00:00 ) - Reported Branch Cigarette 2020-09-08 2020-09-08 University of pack-years 00:00:00 00:00:00 [facility] Tobacco use and 2020-09-08 2020-09-08 Never used Universit y of exposure 00:00:00 00:00:00 [facility] Alcohol Comment 2020-08-17 2020-08-17 occasional Universit y of 00:00:00 00:00:00 [facility] Branch History SDOH 2020-06-24 2020-06-24 5 University o f Alcohol [facility] 00:00[facility]00 [facility] 2020-06-24 2020-06-24 2 University o f Alcohol Std Drinks 00:00:00 00:00:00 [place] [facility] History SDOH 2020-06-24 2020-06-24 4 University o f Alcohol Binge 00:00:00 00:00:00 [facility] al Branch Social History 2014-10-27 2014-10-27 [facility] lucien 04:42:13 04:42:13 [birth year] Universit y of 00:00:00 00:00:00 [facility] Smoking Status Start Date Stop Date Source Former smoker 2020-09-08 00:00:00 2020-09-08 00:00:00 [facility] Medications Ordered Filled Start Stop Current Ordering Indication Dosage Frequency Signature Comments Components Source Medication Medication Date Date Medication? Clinician (SIG) Name Name HYDROcodone 2020- No acute pain 1{tbl} Take 1 Univers -acetaminop 5-07 05-15 tablet by it y of hen 5-325 00:00: 04:59 mouth [place] mg tablet 00 :00 every 6 Medical (six) Branch hours as needed for Pain (scale 4-6) for up to 7 days. Indication s: acute pain HYDROcodone 2020- No acute pain 1{tbl} Take 1 Univers -acetaminop 5-03 05-11 tablet by it y of hen 5-325 00:00: 04:59 mouth [place] mg tablet 00 :00 every 6 Medical (six) Branch hours as needed for Pain (scale 4-6) or Pain (scale 7-10) for up to 7 days. Indication s: acute pain HYDROcodone 2020- No acute pain 1{tbl} Take 1 Univers -acetaminop 5-03 05-11 tablet by it y of hen 5-325 00:00: 04:59 mouth [place] mg tablet 00 :00 every 6 Medical (six) Branch hours as needed for Pain (scale 4-6) or Pain (scale 7-10) for up to 7 days. Indication s: acute pain HYDROcodone 2020- No acute pain 1{tbl} Take 1 Univers -acetaminop 5-03 05-11 tablet by it y of hen 5-325 00:00: 04:59 mouth [place] mg tablet 00 :00 every 6 Medical (six) Branch hours as needed for Pain (scale 4-6) or Pain (scale 7-10) for up to 7 days. Indication s: acute pain HYDROcodone 2020- No acute pain 1{tbl} Take 1 Univers -acetaminop 5-03 05-11 tablet by it y of hen 5-325 00:00: 04:59 mouth [place] mg tablet 00 :00 every 6 Medical (six) Branch hours as needed for Pain (scale 4-6) or Pain (scale 7-10) for up to 7 days. Indication s: acute pain lisinopriL Yes Essential 20mg Take 1 Univers 20 mg 4-15 hypertensio tablet by it y of tablet 00:00: n mouth [place] 00 daily. Medical Branch albuterol Yes Acute 2{puff} Inhale 2 Univers 90 4-15 bacterial Puffs ity of mcg/actuati 00:00: bronchitis every 6 [place] on inhaler 00 (six) Medical hours as Branch needed for Wheezing or Shortness of Breath. lisinopriL Yes Essential 20mg Take 1 Univers 20 mg 4-15 hypertensio tablet by it y of tablet 00:00: n mouth [place] 00 daily. Medical Branch albuterol Yes Acute 2{puff} Inhale 2 Univers 90 4-15 bacterial Puffs ity of mcg/actuati 00:00: bronchitis every 6 [place] on inhaler 00 (six) Medical hours as Branch needed for Wheezing or Shortness of Breath. lisinopriL Yes Essential 20mg Take 1 Univers 20 mg 4-15 hypertensio tablet by it y of tablet 00:00: n mouth [place] 00 daily. Medical Branch albuterol Yes Acute 2{puff} Inhale 2 Univers 90 4-15 bacterial Puffs ity of mcg/actuati 00:00: bronchitis every 6 [place] on inhaler 00 (six) Medical hours as Branch needed for Wheezing or Shortness of Breath. lisinopriL Yes Essential 20mg Take 1 Univers 20 mg 4-15 hypertensio tablet by it y of tablet 00:00: n mouth [place] 00 daily. Medical Branch albuterol Yes Acute 2{puff} Inhale 2 Univers 90 4-15 bacterial Puffs ity of mcg/actuati 00:00: bronchitis every 6 [place] on inhaler 00 (six) Medical hours as Branch needed for Wheezing or Shortness of Breath. Acetaminoph Yes 1 tab, PO, Memoria en 325 MG / 1-21 Q4-6H, PRN l Hydrocodone 15:34: Pain Score Anibal Bitartrate 00 6-10, X 5 5 MG Oral day, # 30 Tablet tab, 0 [[place] Refill(s) 5/325] Sodium No 25 mL, Memoria Chloride 05-25 Route: IV, l 0.9% IV 08:50: Start Sod 00 date: 05/25/16 2:50:00 [employer], Duration: 30 day, Stop date: 06/24/16 2:49:00 [employer], PRN Line Flush Acetaminoph No Notes: Do M emoria en 325 MG / 05-25 not exceed l Hydrocodone 06:48: 4gm/day of Sod Bitartrate 00 acetaminop 10 MG Oral hen. Tablet (Same as: [[place] 10/325] 325/10) Sodium No 1,000 mL, Memori a Chloride 05-25 Rate: 125 l 0.154 06:46: ml/hr, Anibal MEQ/ML 00 Infuse Injectable over: 8 Solution hr, Route: IV, Dosing Weight 109.091 kg, Total Volume: 1,000, Start date: 05/25/16 0:46:00 [employer], Duration: 30 day, Stop date: 06/24/16 0:45:00 [employer] Levetiracet No Notes: Gerson ruddy am 05-25 Same as l 06:46: Keppra Mix with 100 mL NS, LR or D5W MEDICATION WASTE Product Size: 500 mg Product Wasted: _0__ mg Saline No Notes: Memoria Flush 0.9% 05-25 (Same as: l 06:46: BD Posiflush) Keppra No Notes: Memoria 05-25 Same as l 02:43: Keppra Anibal 00 Mix with 100 mL NS, LR or D5W MEDICATION WASTE Product Size: 500 mg Product Wasted: __0 mg Ativan No 2 mg, Memoria 05-25 Route: l 02:23: IVP, Drug form: INJ, ONCE, Dosing Weight 109.091, kg, Priority: STAT, Start date: 05/24/16 20:23:00 [employer], Stop date: 05/24/16 20:23:00 [employer] Ativan No 2 mg, Memoria 05-25 Route: l 01:49: IVP, Drug form: INJ, ONCE, Dosing Weight 109.091, kg, Priority: STAT, Start date: 05/24/16 19:49:00 [employer], Stop date: 05/24/16 19:49:00 [employer] Ondansetron No 4 mg, Memor ia 05-25 Route: l 01:48: IVP, Drug form: INJ, ONCE, Dosing Weight 109.091, kg, Priority: STAT, Start date: 05/24/16 19:48:00 [employer], Stop date: 05/24/16 19:48:00 [employer] Dexamethaso No Notes: Memoria ne 05-25 MEDICATION l 01:08: WASTE Product Size: 10 mg Product Wasted: __0_ mg Valium No Notes: Memoria 05-25 (Same as: l 01:08: Valium) WASTE: F/P - Black; E - White/Blue Hydromorpho No Notes: Gerson ruddy ne 05-24 Same as l 23:23: Dilaudid Fentanyl No Notes: Memoria 20 (Same as: l 22:39: Sublimaze) Preservat laila free. Sodium No 1,000 mL, Memori a Chloride 20 1,000 l 0.154 22:37: ml/hr, Sod MEQ/ML 00 Infuse Injectable Over: 1 Solution hr, Route: IV, 1,000, Drug form: INJ, ONCE, Priority: STAT, Dosing Weight 109.091 kg, Start date: 05/24/16 16:37:00 [employer], Duration: 1 doses or times, Stop date: 05/24/16 16:37:00 [employer] Ondansetron No Notes: Gerson ruddy -20 (Same as: l 22:37: Zofran) MEDICATION WASTE Product Size: 4 mg Product Wasted: _0__ mg Levetiracet Yes 1,000 mg = Memoria am 500 MG 01-19 2 tab, PO, l Oral Tablet 16:50: BID, # 120 Anibal [Keppra] 00 tab, 2 Refill(s) Lisinopril No Notes: Memor ia 01-19 (Same as: l 16:49: Prinivil, Sod 00 Zestril) Aspirin 81 No Notes: Do Me moria MG Enteric 01-19 not crush l Coated 14:00: or chew. Sod Tablet 00 (Same As: Ecotrin) Acetaminoph No Notes: Gerson ruddy en 325 MG / 01-19 (Same as: l Hydrocodone 05:46: [place] Dina nn Bitartrate 00 325/5) Do 5 MG Oral not exceed Tablet 4gm/day of [[place] acetaminop 5/325] hen. heparin No Notes: Memoria 01-19 porcine l 05:00: heparin Anibal 00 Tylenol No Notes: Max Gerson ruddy 01-19 acetaminop l 04:11: hen = 4000 Anibal 00 mg/day (4 gm/day). (Same as: Tylenol) Saline No Notes: Memoria Flush 0.9% 01-19 (Same as: l 02:00: BD Sod 00 Posiflush) atorvastati No Notes: Gerson ruddy n 01-19 Same as l 02:00: Lipitor Sod 00 Docusate No Notes: Memoria 01-19 (Same as: l 02:00: Colace) Anibal 00 (Do Not Crush) Lisinopril No Notes: Memor ia 01-19 (Same as: l 01:58: Prinivil, Sod 00 Zestril) Keppra No Notes: Memoria 01-19 Same as l 00:46: Keppra Anibal 00 Mix with 100 mL NS, LR or D5W MEDICATION WASTE Product Size: 500 mg Product Wasted: 0 mg Saline No Notes: Memoria Flush 0.9% 01-19 (Same as: l 00:43: BD Sod 00 Posiflush) Labetalol No 105 mmHg, Me moria 01-19 Priority: l 00:43: Routine, Anibal 00 Start date: 01/19/16 19:43:00 CDT, Duration: 30 day, Stop date: 02/18/16 19:42:00 CDT Bisacodyl No Notes: Memori a 01-19 (Same As: l 00:43: Dulcolax, Sod 00 Bisco-Lax) iodixanol No 100 mL, Memor ia 01-18 Route: l 23:55: IVP, Drug Form: SOLN, Dosing Weight 109, kg, ONCALL, STAT, Start date: 01/19/16 18:55:00 CDT, Duration: 1 doses or times, Dose = 2.2ml/kg, Max dose = 100ml -- "To be infused by Radiology Staff ONLY" Saline No Notes: Memoria Flush 0.9% 01-18 (Same as: l 23:37: BD Posiflush) Acetaminoph 2014-05 No 1 tab, Gerson ruddy en 325 MG / 05-30 Route: PO, l Hydrocodone 18:41: Drug Form: Sod Bitartrate 00 TAB, 10 MG Oral Dosing Tablet Weight [[place] 95.455, 10/325] kg, ONCE, STAT, Start date: 03/30/15 12:41:00, Stop date: 03/30/15 12:41:00 potassium 2014-05 No Notes: Memori a phosphate-s 05-30 (Same as: l odium 18:36: Neutra-Deja Avni n phosphate 00 s) Each 250 mg-278 1.25 gm mg-164 mg pkt has oral powder 250mg phosphorou s. Mix w/2.5oz water and stir. Levetiracet 2014-05 Yes 750 mg = 1 Memoria am 750 MG 05-30 tab, PO, l Oral Tablet 18:11: BID, # 60 H ermann [Keppra] 00 tab, 0 Refill(s) K-Phos 2014-05 No Route: PO, Memor ia Original 05-30 ONCE, l 18:09: Dosing Sod 00 Weight 95.455, kg, Start date: 03/30/15 12:09:00, Stop date: 03/30/15 12:09:00 Keppra 2014-05 No 1,500 mg, Memori a 05-30 Route: IV, l 18:08: ONCE, Anibal 00 Dosing Weight 95.455, kg, Start date: 03/30/15 12:08:00, Stop date: 03/30/15 12:08:00 Tylenol 2014-05 No 650 mg, Memoria 05-30 Route: PO, l 16:19: Drug form: Anibal 00 TAB, ONCE, Dosing Weight 95.455, kg, Priority: STAT, Start date: 03/30/15 10:19:00, Stop date: 03/30/15 10:19:00 Morphine 2014-05 No 4 mg, Memoria 05-30 Route: l 16:18: IVP, Drug form: INJ, ONCE, Dosing Weight 95.455, kg, Priority: STAT, Start date: 03/30/15 10:18:00, Stop date: 03/30/15 10:18:00 Saline 2014-05 No Notes: Memoria Flush 0.9% 05-30 Same as: l 16:16: BD Sod Posiflush Sterile levofloxaci 2014-05 Yes 750 mg = 1 Memoria n 750 mg 0-14 tab, PO, l oral tablet 18:38: [id number], # Anibal 00 5 tab, 0 Refill(s) Valproic 2014-05 Yes 750 mg = 3 Mem oria Acid 250 MG 0-14 cap, PO, l Oral 18:38: Q12H, # Sod Capsule 00 180 cap, 0 Refill(s) remove 2014-05 No Notes: Memoria patch 0-14 Remove old l 13:55: patch Anibal 00 before applicatio n of new patch. valproic 2014-05 No Notes: Memoria acid 0-14 (Same As: l 04:00: Depakene) Anibal 00 (Do Not Crush) Ativan 2014-05 No Notes: Memoria 0-14 (Same as: l 03:24: Ativan) Anibal 00 Nicotine 2014-05 No Notes: Memoria 0-13 (Same as: l 17:07: Habitrol) Sod 00 "Remove old patch before applicatio n of new patch" Valproic 2014-05 No Notes: Memoria Acid 250 MG 0-13 (Same As: l Oral 02:00: Depakene) Sod Capsule 00 (Do Not Crush) Levaquin 2014-05 No Notes: Do Gerson ruddy 0-12 not give l 23:00: w/antacids Sod 00 , dairy pdt & minerals Take 1 hr before or 2 hr after dairy products Lorazepam 2014-05 No Notes: Memori a 0-12 (Same as: l 17:27: Ativan) Sod 00 Ativan 2014-05 No Notes: Memoria 0-12 (Same as: l 17:25: Ativan) Anibal 00 fosphenytoi 2014-05 No Notes: Gerson ruddy n 0-12 (Same as: l 17:23: Cerebyx) Anibal 00 Stated mg = mgPE. Refriger ate ANTICONVUL MAR Do not confuse with celebrex. MEDICATION WASTE Product Size: 500 mg Product Wasted: 0_ mg Robaxin 2014-05 No Notes: Memoria 0-12 (Same l 15:16: as:Robaxin Sod 00 ) Lisinopril 2014-05 No Notes: Memor ia 0-12 (Same as: l 14:00: Prinivil, Sod 00 Zestril) Valproic 2014-05 No Notes: Memoria Acid 100 0-12 Dilute in l MG/ML 13:09: at least Anibal Injectable 00 50ml D5W Solution or NS. Infusion rate = 20 mg/min (Same As: Depacon) Acetaminoph 2014-05 No Notes: Do M emoria en 325 MG / 0-12 not exceed l Hydrocodone 10:09: 4gm/day of Sod Bitartrate 00 acetaminop 10 MG Oral hen. Tablet (Same as: [[place] 10/325] 325/10) Phenytoin 2014-05 No Notes: Memori a 0-12 (Same as: l 08:00: Dilantin) Anibal Do not infuse greater than 50 mg/min. MEDICATION WASTE Product Size: 100 mg Product Wasted: ___ mg Sodium 2014-05 No 25 mL, Memoria Chloride 0-12 Route: IV, l 0.9% IV 04:05: Start Anibal 00 date: 02/12/15 23:05:00, Duration: 30 day, Stop date: 03/14/15 22:04:00, PRN Line Flush BD Normal 2014-05 No Notes: Memori a Saline 0-12 (Same as: l Flush 04:05: BD Sod 00 Posiflush) potassium 2014-05 No Notes: Memori a chloride 0-12 Infuse at l 03:59: a rate of Sod 00 10 mEq/hr. (Same as: KCL) potassium 2014-05 No Notes: Memori a phosphate-s 0-12 (Same as: l odium 03:59: Neutra-Deja Avni n phosphate 00 s) Each 250 mg-278 1.25 gm mg-164 mg pkt has oral powder 250mg phosphorou s. Mix w/2.5oz water and stir. potassium 2014-05 No Notes: Memori a phosphate + 0-12 (Same as: l Sodium 03:59: K Sod Chloride 00 Phosphate. 0.9% IV 250 ) 1 mMol mL phoshate has 1.47 mEq potassium Infuse over 4 hours sodium 2014-05 No 15 mmol, 5 Memor ia phosphate + 0-12 mL, Route: l Sodium 03:59: IVPB, PRN, Dina nn Chloride 00 Dosing 0.9% IV 250 Weight mL 86.3, kg, PRN Abnormal Lab Result, For NON-ICU Patients Only., Start date: 02/12/15 22:59:00, Duration: 30 day, Stop date: 03/14/15 21:58:00 Magnesium 2014-05 No 1 gm, 100 Mem oria Sulfate 0-12 mL, Route: l 03:59: IVPB, Drug Sod 00 form: INJ, PRN, Dosing Weight 86.3, kg, PRN Abnormal Lab Result, For NON-ICU Patients Only., Start date: 02/12/15 22:59:00, Duration: 30 day, Stop date: 03/14/15 21:58:00 Calcium 2014-05 No 2 gm, 20 Memori a Gluconate 0-12 mL, Route: l 03:59: IVPB, PRN, Anibal 00 Dosing Weight 86.3, kg, PRN Abnormal Lab Result, For NON-ICU Patients Only., Start date: 02/12/15 22:59:00, Duration: 30 day, Stop date: 03/14/15 21:58:00 Magnesium 2014-05 No Notes: Memori a Oxide 0-12 (Same as: l 03:59: Mag-Ox Sod 00 400) Magnesium oxide 459bl=89y g elemental magnesium Dose=____m g magnesium oxide (___mg elemental magnesium) Zosyn 2014-05 No Notes: Memoria 0-12 (Same as: l 02:00: Zosyn) Sod 00 Dosing based on Piperacill in component MEDICATION WASTE Product Size: 4500 mg Product Wasted: 0 mg Docusate 2014-05 No Notes: Memoria 0-12 (Same as: l 01:34: Colace) Sod (Do Not Crush) Ondansetron 2014-05 No Notes: Gerson ruddy 0-12 (Same as: l 01:34: Zofran) Anibal 00 MEDICATION WASTE Product Size: 4 mg Product Wasted: ___ mg Acetaminoph 2014-05 No Notes: Do M emoria en 0 not exceed l 01:34: 4 gm/day. Anibal 00 (Same as: Tylenol) Lorazepam 2014-05 No Notes: Memori a 0-12 (Same as: l 01:30: Ativan) Anibal Vancomycin 2014-05 No Notes: Memor ia 0-12 TIME l 00:00: CRITICAL Anibal 00 MEDICATION NS 1,000 mL 2014-05 No 1,000 mL, M emoria Rate: 125 l 23:32: ml/hr, Anibal 00 Infuse over: 8 hr, Route: IV, Dosing Weight 89.008 kg, Total Volume: 1,000, Start date: 02/12/15 18:32:00, Duration: 30 day, Stop date: 03/14/15 18:31:00 potassium No Notes: Memori a phosphate-s 12 (Same as: l odium 14:52: Neutra-Deja Avni n phosphate 00 s) Each 250 mg-278 1.25 gm mg-164 mg pkt has oral powder 250mg phosphorou s. Mix w/2.5oz water and stir. magnesium No 2 gm, 50 Gerson ruddy sulfate 2 8-12 mL, Route: l gm in Water 14:52: IVPB, Drug Sod 50 ml 00 form: INJ, ONCE, Dosing Weight 89.008, kg, Start date: 12/14/14 9:52:00, Duration: 2 hr, Stop date: 12/14/14 9:52:00 Folic Acid Yes 1 mg = 1 Mem oria 1 MG Oral 8-12 tab, PO, l Tablet 13:18: Daily, # Anibal 00 30 tab, 2 Refill(s) thiamine Yes 100 mg = 1 Mem oria 100 mg oral 8-12 tab, PO, l tablet 13:18: Daily, # Sod 00 30 tab, 2 Refill(s) Valproic Yes 500 mg = 2 Mem oria Acid 250 MG 8-12 cap, PO, l Oral 13:18: Q12H, # Sod Capsule 00 120 cap, 2 Refill(s) cefpodoxime Yes Special Mem oria 100 mg oral 8-12 Instructio l tablet 13:18: ns: Take 00 until all pills are gone. Neutra-Phos No Notes: Gerson ruddy -12 (Same as: l 11:12: Neutra-Deja Sod 00 s) Each 1.25 gm pkt has 250mg phosphorou s. Mix w/2.5oz water and stir. Magnesium No 2 gm, 50 Gerson ruddy Sulfate 8-12 mL, Route: l 11:12: IVPB, Drug form: INJ, ONCE, Dosing Weight 89.008, kg, Start date: 12/14/14 6:12:00, Duration: 2 hr, Stop date: 12/14/14 6:12:00 cefpodoxime No Notes: Gerson ruddy 8-11 With food. l 18:00: (Same As: Vantin) Levofloxaci No Notes: Do M emoria n -11 not give l 17:00: w/antacids , dairy pdt & minerals Take 1 hr before or 2 hr after dairy pdt (Same as:Levaqui n) Ativan No Notes: Memoria 8-11 (Same as: l 15:22: Ativan) Folic Acid No Notes: Memor ia 8- (Same as: l 14:00: Folvite) multivitami No Notes: Gerson ruddy n 8-11 (Same l 14:00: as:Thera) Sod 00 Take with food. Thiamine No Notes: Memoria 8-11 (Same As: l 14:00: Vitamin Sod 00 B1) Acetaminoph No Notes: Do M emoria en 325 MG / 8-10 not exceed l Hydrocodone 22:00: 4gm/day of Sod Bitartrate 00 acetaminop 10 MG Oral hen. Tablet (Same as: [[place] 10/325] 325/10) Lorazepam No Notes: Memori a 8-10 (Same as: l 16:26: Ativan) Sod Fentanyl No Notes: Memoria 8-10 (Same as: l 14:25: Sublimaze) Anibal 00 Preservat laila free. Valproic No Notes: Memoria Acid 250 MG 8-10 (Same As: l Oral 14:00: Depakene) Anibal Capsule 00 (Do Not Crush) Docusate No Notes: Memoria Sodium 50 8-10 (Same as l MG / 14:00: Senokot-S) Sod sennosides, 00 Equiv. to [facility] 8.6 MG Di-Colac Oral Tablet e. heparin No Notes: Memoria 8-10 porcine l 13:00: heparin Sod 00 Sodium No 1,000 mL, Memori a Chloride 8-10 Rate: 125 l 0.154 09:51: ml/hr, Anibal MEQ/ML 00 Infuse Injectable over: 8 Solution hr, Route: IV, Dosing Weight 89.9 kg, Total Volume: 1,000, Start date: 12/12/14 4:51:00, Duration: 30 day, Stop date: 01/11/15 4:50:00 Saline No Notes: Memoria Flush 0.9% 8-10 Same as: l 09:51: BD Sod 00 Posiflush Sterile Valproic No Notes: Memoria Acid 100 8-10 Dilute in l MG/ML 09:51: at least Anibal Injectable 00 50ml D5W Solution or NS. Infusion rate = 20 mg/min (Same As: Depacon) Lorazepam No Notes: Memori a 8-10 (Same as: l 09:51: Ativan) Doxycycline Yes 100 mg = 1 Memoria 100 MG Oral 6-25 cap, PO, l Capsule 19:56: Daily, X 7 Herm day, # 7 cap, 0 Refill(s) normal No 1,000 mL, Memori a saline 0.9% 6-25 Rate: 100 l IV 1,000 mL 15:08: ml/hr, Infuse over: 10 hr, Route: IV, Dosing Weight 86.364 kg, Total Volume: 1,000, Start date: 10/27/14 10:08:00, Duration: 30 day, Stop date: 11/26/14 10:07:00 Lisinopril No Notes: Memor ia 6-25 (Same as: l 14:00: Prinivil, Zestril) Vyvanse No 70 mg, Memoria 6-25 Route: PO, l 14:00: Drug Form: Sod 00 CAP, Dosing Weight 86.364, kg, QAM, Start date: 10/27/14 9:00:00, Duration: 30 day, Stop date: 11/25/14 9:00:00 Divalproex No Notes: Memor ia Sodium 250 6-25 (Same as: l MG Enteric 14:00: Depakote Her story Coated 00 Delayed Tablet Release) [Depakote] Do not confuse with the extended-r elease tablet. Delayed absorption , enteric coated tablet. Do not crush Celexa No 10 mg, 1 Memoria 6-25 tab, l 14:00: Route: PO, Sod 00 Drug form: TAB, Daily, Dosing Weight 86.364, kg, Start date: 10/27/14 9:00:00, Duration: 30 day, Stop date: 11/25/14 9:00:00 Patient's No Patient's Mem oria own med 6-25 own med l Vynase 70mg 14:00: Vynase 70mg, 1 cap, Drug form: MISC, Route: PO, QAM, 10/27/14 9:00:00, Duration: 30 day, Stop date: 11/25/14 9:00:00 Acetaminoph No Notes: Do M emoria en 325 MG / 6-25 not exceed l Hydrocodone 12:41: 4gm/day of Anibal Bitartrate 00 acetaminop 10 MG Oral hen. Tablet (Same as: [[place] 10/325] 325/10) nitroglycer No Notes: Gerson ruddy in 0.4 mg 6-25 (Same l sublingual 04:28: as:Nitroqu H ermann tablet 00 ick, Nitrostat) "Do Not Crush" Sublingual tablet atropine No 0.5 mg, 5 Gerson ruddy 6-25 mL, Route: l 04:28: IVP, Drug Sod form: INJ, PRN, PRN Bradycardi a, Start date: 10/26/14 23:28:00, Duration: 30 day, Stop date: 11/25/14 23:27:00 Lorazepam No 1 mg, Memoria 6-24 Route: l 23:06: IVP, Drug Anibal form: INJ, ONCE, Dosing Weight 86.364, kg, PRN as needed for anxiety, Start date: 10/26/14 18:06:00 Dilantin No 1,000 mg, Gerson ruddy 6-24 Route: l 22:59: IVPB, Sod 00 ONCE, Dosing Weight 86.364, kg, Priority: STAT, Start date: 10/26/14 17:59:00, Stop date: 10/26/14 17:59:00 Lorazepam No 2 mg, Memoria 6-24 Route: l 22:49: IVP, Drug Sod 00 form: INJ, ONCE, Dosing Weight 86.364, kg, Priority: STAT, Start date: 10/26/14 17:49:00, Stop date: 10/26/14 17:49:00 Acetaminoph No 1 tab, Gerson ruddy en 325 MG / 6-24 Route: PO, l Hydrocodone 22:12: Drug Form: Sod Bitartrate 00 TAB, 5 MG Oral Dosing Tablet Weight [[place] 86.364, 5/325] kg, ONCE, STAT, Start date: 10/26/14 17:12:00, Stop date: 10/26/14 17:12:00 Ativan No 2 mg, Memoria 24 Route: IM, l 21:00: Drug form: Anibal INJ, ONCE, Dosing Weight 86.364, kg, Priority: STAT, Start date: 10/26/14 16:00:00, Stop date: 10/26/14 16:00:00 Saline No Notes: Memoria Flush 0.9% 24 (Same as: l 20:35: BD Anibal 00 Posiflush) Divalproex Yes 250 mg = 1 M emoria Sodium 250 3-18 tab, PO, l MG Enteric 15:18: TID, # 90 He rmann Coated 00 tab, 0 Tablet Refill(s) [Depakote] methocarbam Yes 750 mg = 1 Memoria ol 750 mg 3-18 tab, PO, l oral tablet 15:08: TID, # 15 H ermann 00 tab, 0 Refill(s) Lisinopril No Notes: Memor ia 3-18 (Same as: l 14:00: Prinivil, Zestril) Divalproex No Notes: Memor ia Sodium 250 3-18 (Same as: l MG Enteric 14:00: Depakote Her story Coated Delayed Tablet Release) [Depakote] Do not confuse with the extended-r elease tablet. Delayed absorption , enteric coated tablet. Do not crush Soma No 350 mg, Memoria 3-18 Route: PO, l 14:00: Drug form: Sod 00 TAB, TID, Dosing Weight 85, kg, Start date: 07/20/14 9:00:00, Duration: 30 day, Stop date: 08/18/14 17:00:00 Robaxin No Notes: Memoria 3-18 (Same l 14:00: as:Robaxin ) Lovenox No Notes: Memoria 3-18 (Same as: l 10:00: Lovenox) Diazepam No Notes: Memoria 3-18 (Same as: l 09:41: Valium) Acetaminoph No Notes: Do M emoria en 325 MG / 3-18 not exceed l Hydrocodone 09:41: 4gm/day of Anibal Bitartrate 00 acetaminop 10 MG Oral hen. Tablet (Same as: [[place] 10/325] 325/10) lisdexamfet Yes 70 mg = 1 M emoria amine 3-18 cap, PO, l dimesylate 09:38: QAM, ADHD, H ermann 70 MG Oral 00 0 Capsule Refill(s) [Vyvanse] Clonidine No 0.1 mg, Memor ia Hydrochlori 3-18 PO, BID, l de 0.1 MG 09:38: Elevated Herm carlo Oral Tablet 00 BP, # 60 tab, 0 Refill(s) lisinopril Yes 40 mg = 1 Me moria 40 mg oral 3-18 tab, PO, l tablet 09:38: Daily, # Anibal 00 30 tab, 0 Refill(s) diazepam 10 Yes 10 mg = 1 M emoria mg oral 3-18 tab, PO, l tablet 09:38: TID, Anibal 00 Anxiety, 0 Refill(s) Carisoprodo Yes 350 mg = 1 Memoria l 350 MG 3-18 tab, PO, l Oral Tablet 09:38: TID, # 21 H ermann [Soma] 00 tab, 0 Refill(s) Acetaminoph Yes 1 tab, PO, Memoria en 325 MG / 3-18 Q4H, for l Hydrocodone 09:38: pain, # 24 Anibal Bitartrate 00 tab, 0 10 MG Oral Refill(s) Tablet [[place] 10/325] Divalproex Yes 250 mg = 1 M emoria Sodium 250 3-18 tab, PO, l MG Enteric 09:38: TID, # 270 H ermann Coated 00 tab, 0 Tablet Refill(s) [Depakote] Lorazepam No Notes: Memori a 3-18 (Same as: l 09:37: Ativan) Sod 00 Acetaminoph No Notes: Gerson ruddy en 325 MG / 3-18 (Same as: l Hydrocodone 06:40: [place] Dina nn Bitartrate 00 325/5) Do 5 MG Oral not exceed Tablet 4gm/day of acetaminop hen. Divalproex No 250 mg = 1 M emoria Sodium 250 3-18 tab, PO, l MG Enteric 05:46: BID, # 30 He rmann Coated 00 tab, 0 Tablet Refill(s) [Depakote] Keppra No 500 mg, Memoria 3-18 Route: IV, l 02:06: ONCE, Dosing Weight 85, kg, Start date: 07/19/14 21:06:00, Stop date: 07/19/14 21:06:00 Magnesium No 1 gm, 100 Mem oria Sulfate 3-18 mL, Route: l 01:13: IVPB, Drug form: INJ, ONCE, Dosing Weight 85, kg, Priority: STAT, Start date: 07/19/14 20:13:00, Stop date: 07/19/14 20:13:00 Valproic No Notes: Memoria Acid 100 3-18 Dilute in l MG/ML 01:13: at least Anibal Injectable 50ml D5W Solution or NS. Infusion rate = 20 mg/min (Same As: Depacon) Dilaudid No 1 mg, Memoria 3-17 Route: l 23:47: IVP, ONCE, Dosing Weight 85, kg, Priority: STAT, Start date: 07/19/14 18:47:00, Stop date: 07/19/14 18:47:00 Saline No Notes: Memoria Flush 0.9% 3-17 (Same as: l 22:48: BD Anibal 00 Posiflush) Sodium No 1,000 mL, Memori a Chloride 3-17 Infuse l 0.154 22:48: Over: 1 Anibal MEQ/ML 00 hr, Route: Injectable IV, ONCE, Solution Priority: STAT, kg, Start date: 07/19/14 17:48:00, Duration: 1 doses or times, Stop date: 07/19/14 17:48:00 [place] 5/325 Yes Berenice 1 tab, PO, Memoria oral tablet 2-18 Chen Q4-6H, l 23:04: PRN, 21 Sod 37 tab, as needed for pain, Substituti on Allowed, Maintenanc e Flexeril 10 Yes Yih-Chowdary 10 mg, 1 Memoria mg oral 2-18 Chen tab, PO, l tablet 23:04: TID, PRN, Avni n 28 30 tab, for spasm, Substituti on Allowed, TAB naproxen Yes Yih-Chowdary 500 mg, 1 Memoria 500 mg oral 2-18 Chen tab, PO, l tablet 23:04: BID, PRN, Avni n 22 30 tab, Pain, Substituti on Allowed morphine No Yih-Chowdary 6 mg, 1.5 Memoria Sulfate 2-18 Hcen mL, Route: l 20:32: IM, Drug Anibal 00 form: INJ, ONCE, Dosing Weight 93.182, kg, Priority: STAT, Start date: 06/22/12 14:32:00, Stop date: 06/22/12 14:32:00 Valium No Yih-Chowdary 10 mg, 1 Mem oria 2-18 Chen tab, l 20:32: Route: PO, Anibal 00 Drug form: TAB, ONCE, Dosing Weight 93.182, kg, Priority: STAT, Start date: 06/22/12 14:32:00, Stop date: 06/22/12 14:32:00 [place] Yes Janae Hernández 1 tab, PO, Me moria 10/325 oral 3-09 Q6H, PRN, l tablet 18:20: 24 tab, Sod 50 for pain, Substituti on Allowed, Maintenanc e acetaminoph No Ju-un 2 tab, Mem oria en-hydrocod 3 Route: PO, l one 325 17:20: Park Drug Form: Herm carlo mg-10 mg 00 TAB, Q6H, oral tablet PRN as needed for pain, Start date: 07/11/11 11:20:00, Duration: 30 day, Stop date: 08/10/11 11:19:00 azithromyci No Janae Hernández 250 mg, 1 Memoria n 250 mg 3-08 tab, l oral tablet 15:00: Route: PO, Sod 00 Drug form: TAB, BID, Start date: 07/11/11 9:00:00, Duration: 4 day, Stop date: 07/14/11 17:00:00 azithromyci 2012-0 No Janae Hernández 500 mg, 2 Memoria n 250 mg 3-07 tab, l oral tablet 23:00: Route: PO Drug form: TAB, ONCE, Start date: 07/10/11 17:00:00, Stop date: 07/10/11 17:00:00 azithromyci 2011-0 No Janae Hernández 500 mg, 2 Memoria n 3-07 tab, l 21:00: Route: PO Drug form: TAB, [id number], Start date: 07/10/11 15:00:00, Duration: 3 day, Stop date: 07/12/11 15:00:00 Tessalon 2011-0 No Ju-un 200 mg, 2 Mem oria Perles 3-07 Canelo cap, l 15:00: [place] Route: PO Drug form: CAP, TID, Start date: 07/10/11 9:00:00, Duration: 30 day, Stop date: 08/08/11 17:00:00 lisinopril 2011-0 No Ju-un 20 mg, 1 Me moria 3-07 Canelo tab, l 15:00: [place] Route: PO Drug form: TAB, Daily, Start date: 07/10/11 9:00:00, Duration: 30 day, Stop date: 08/08/11 9:00:00 Celexa 2011-0 No Ju-un 10 mg, 0.5 Gerson ruddy 3-07 Canelo tab, l 15:00: [place] Route: PO Drug form: TAB, Daily, Start date: 07/10/11 9:00:00, Duration: 30 day, Stop date: 08/08/11 9:00:00 Abilify 2011-0 No Ju-un 6 mg, 3 Memori a 3-07 Canelo tab, l 15:00: [place] Route: PO Drug form: TAB, Daily, Start date: 07/10/11 9:00:00, Duration: 30 day, Stop date: 08/08/11 9:00:00 nicotine 2011-0 No Ju-un 21 mg, 1 Gerson ruddy 3-07 Canelo patch, l 15:00: [place] Route: TOP, Drug form: ERFILM, Daily, Start date: 07/10/11 9:00:00, Duration: 30 day, Stop date: 08/08/11 9:00:00 acetylcyste No Ju-un 600 mg, 3 Memoria ine 20% 07-09ian ml, Route: l inhalation 08:00: [facility], Drug He rmann solution 00 Form: SOLN, RQ6H, Start date: 07/10/11 2:00:00, Stop date: 08/08/11 20:00:00 albuterol-i No Ju-un 3 ml, Gerson ruddy pratropium 07-09 Route: l 2.5-0.5 mg 08:00: [facility], Drug He rmann inhalation 00 Form: solution SOLN, RQ6H, Start date: 07/10/11 2:00:00, Duration: 30 day, Stop date: 08/08/11 20:00:00 Mucinex No Ju-un 600 mg, 1 Gerson ruddy 07-09 tab, l 03:00: [place] Route: PO, Sod 00 Drug form: ERTAB, Q12H, Start date: 07/09/11 21:00:00, Duration: 30 day, Stop date: 08/08/11 9:00:00 azithromyci No Ju-un 500 mg, Me moria n 07-09 Route: PO, l 03:00: [place] Drug form: Anibal 00 TAB, [id number], Start date: 07/09/11 21:00:00, Duration: 30 day, Stop date: 08/07/11 21:00:00 tuberculin No Ju-un 5 unit, Mem oria purified 07-09ian 0.1 mL, l protein 02:47: [place] Route: Anibal derivative 00 INTRADERM, 5 ONCE, tuberculin Start units/0.1 date: mL 07/09/11 intradermal 20:47:00, solution Stop date: 07/09/11 20:47:00 hydrALAZINE No Ju-un 10 mg, 0.5 Memoria 07-09ian mL, Route: l 02:42: Park IV, Drug Sod 00 form: INJ, Q4H, PRN Hypertensi on, Start date: 07/09/11 20:42:00, Duration: 30 day, Stop date: 08/08/11 20:41:00, SBP greater than 150 Valium No Ju-un 10 mg, 1 Memori a 3Novian tab, l 02:37: [place] Route: PO, Anibal 00 Drug form: TAB, TID, PRN as needed for anxiety, Start date: 07/09/11 20:37:00, Duration: 30 day, Stop date: 08/08/11 20:36:00 [place] No Ju-un 2 tab, Memoria 10/325 oral 07-09ian Route: PO, l tablet 02:36: [place] Drug Form: Dina nn 00 TAB, Q6H, PRN as needed for pain, Start date: 07/09/11 20:36:00, Stop date: 08/08/11 20:35:00 ondansetron No Ju-un 4 mg, 2 Me moria 07-09ian mL, Route: l 02:34: Josselin IVP, Drug form: INJ, Q6H, PRN Nausea & Vomiting, Start date: 07/09/11 20:34:00, Duration: 30 day, Stop date: 08/08/11 20:33:00 docusate No Ju-un 100 mg, 1 Mem oria 3Novian cap, l 02:34: [place] Route: PO, Anibal 00 Drug form: CAP, BID, PRN Constipati on, Start date: 07/09/11 20:34:00, Duration: 30 day, Stop date: 08/08/11 20:33:00 morphine No Ju-un 2 mg, 1 Memor ia Sulfate 3 Canelo mL, Route: l 02:32: Park IVP, Drug Anibal 00 form: INJ, Q4H, PRN Pain, Start date: 07/09/11 20:32:00, Duration: 30 day, Stop date: 08/08/11 20:31:00 azithromyci No Shan Jeremias 500 mg, Memoria n 3-07 Vu Route: l 00:08: IVPB, Anibal 00 ONCE, Priority: STAT, Start date: 07/09/11 18:08:00, Stop date: 07/09/11 18:08:00 Celexa 2011- Yes Ju-un PO, Daily, Gerson ruddy 07-08 Canelo Substituti l 23:28: [place] on Allowed Anibal 24 azithromyci No Brittany M 500 mg, Memoria n 3-06 Stevenson Route: PO, l 23:26: ONCE, Anibal 00 Priority: STAT, Start date: 07/09/11 17:26:00, Stop date: 07/09/11 17:26:00 Unknown No PO, Memoria Home 07-08 Substituti l Medication 23:25: on Anibal 53 Allowed, prnprn Abilify No Ju-un PO, Daily, Mem oria 07-08 Canelo Substituti l 23:23: [place] on Allowed Anibal 42 Valium 10 No Ju-un 10 mg, 1 Mem oria mg oral 07-08ian tab, PO, l tablet 23:23: Park TID, PRN, Avni n 33 Anxiety, Substituti on Allowed, TAB albuterol No Shan Jeremias 2.49 mg, 3 Memoria 0.083% 306 Vu mL, Route: l inhalation 23:09: NEB, Drug He rmann solution 00 form: SOLN, Q15Min, Priority: STAT, Start date: 07/09/11 17:09:00, Duration: 3 doses or times, Stop date: 07/09/11 17:39:00 Rocephin No Ju-un 1 gm, Memoria 07-08 Route: l 23:00: [place] IVPB, Drug Sod form: PDR/INJ, [id number], Start date: 07/09/11 17:00:00, Duration: 30 day, Stop date: 08/07/11 17:00:00 Sodium 2011- No Shan Jeremias 500 mL, Mem oria Chloride 07-08 Vu Rate: 500 l 0.9% 22:18: ml/hr, Sod (Bolus) IV 00 Infuse 500 mL over: 1 hr, Route: IV, Total Volume: 500, Bolus Dose, Priority: STAT, Start date: 07/09/11 16:18:00, Duration: 1 doses or times, Stop date: 07/09/11 17:17:00 Immunizations Ordered Filled Immunization Date Status Comments Sour e Immunization Name Name SARS-COV-2 COVID-19 2020-08-15 Completed Unive rsity of MODERNA VACCINE 00:00:00 [facility] SARS-COV-2 COVID-19 2020-08-15 Completed Unive rsity of MODERNA VACCINE 00:00:00 [facility] SARS-COV-2 COVID-19 2020-08-15 Completed Unive rsity of MODERNA VACCINE 00:00:00 [facility] SARS-COV-2 COVID-19 2020-08-15 Completed Unive rsity of MODERNA VACCINE 00:00:00 [facility] Vital Signs Vital Name Observation Time Observation Value Comments Source Systolic blood 2020-09-08 13:03:00 156 mm[Hg] Univer sity of pressure [facility] Diastolic blood 2020-09-08 13:03:00 93 mm[Hg] Unive rsity of pressure [facility] Heart rate 2020-09-08 13:03:00 79 /min [facility] Body height 2020-09-08 13:03:00 180.3 cm [facility] Body weight 2020-09-08 13:03:00 115.214 kg [facility] BMI 2020-09-08 13:03:00 35.43 kg/m2 [facility] Respitory Rate 2016-05-25 18:45:00 Memori al Sod Heart Rate 2016-05-25 18:45:00 Memorial Sod Systolic (mm Hg) 2016-05-25 18:45:00 Gerson rial Sod Diastolic (mm Hg) 2016-05-25 18:45:00 Mem orial Anibal Temperature Oral (F) 2016-05-25 18:45:00 97.8 F Memorial Sod Respitory Rate 2016-05-25 14:40:00 Memori al Sod Systolic (mm Hg) 2016-05-25 14:40:00 Gerson rial Anibal Diastolic (mm Hg) 2016-05-25 14:40:00 Mem orial Anibal Heart Rate 2016-05-25 14:40:00 Memorial Sod Temperature Oral (F) 2016-05-25 14:40:00 97.9 F Memorial Anibal Respitory Rate 2016-05-25 08:17:00 Memori al Anibal Heart Rate 2016-05-25 08:17:00 Memorial Anibal Temperature Oral (F) 2016-05-25 08:17:00 97.6 F Memorial Anibal Systolic (mm Hg) 2016-05-25 08:17:00 Gerson rial Sod Diastolic (mm Hg) 2016-05-25 08:17:00 Mem orial Sod Weight 2016-05-25 07:05:00 [facility] Anibal BMI Calculated 2016-05-25 07:05:00 Memori al Sod Height 2016-05-25 07:05:00 182.88 cm Memorial Sod Weight 2016-05-24 21:49:00 [facility] Anibal BMI Calculated 2016-05-24 21:49:00 Memori al Sod Height 2016-05-24 21:49:00 182.88 cm Memorial Sod Systolic (mm Hg) 2016-01-20 19:00:00 Gerson rial Sod Diastolic (mm Hg) 2016-01-20 19:00:00 Mem orial Sod Respitory Rate 2016-01-20 19:00:00 Memori al Sod Systolic (mm Hg) 2016-01-20 18:00:00 Gerson rial Sod Diastolic (mm Hg) 2016-01-20 18:00:00 Mem orial Anibal Respitory Rate 2016-01-20 18:00:00 Memori al Anibal Respitory Rate 2016-01-20 17:00:00 Memori al Sod Systolic (mm Hg) 2016-01-20 17:00:00 Gerson rial Sod Diastolic (mm Hg) 2016-01-20 17:00:00 Mem orial Anibal Temperature Oral (F) 2016-01-20 03:30:00 96.2 F [facility] Anibal BMI Calculated 2016-01-20 03:12:00 Memori al Sod Height 2016-01-20 03:12:00 182.88 cm Memorial Sod Weight 2016-01-20 03:12:00 Memorial Sod Heart Rate 2016-01-20 01:45:00 Memorial Sod Temperature Oral (F) 2016-01-20 00:00:00 96.9 F Memorial Sod Weight 2016-01-19 23:26:00 [facility] Anibal BMI Calculated 2016-01-19 23:26:00 Memori al Anibal Height 2016-01-19 23:26:00 182.88 cm [facility] Anibal Heart Rate 2016-01-19 23:26:00 [facility] Anibal Systolic (mm Hg) 2015-03-30 19:15:00 Gerson rial Anibal Diastolic (mm Hg) 2015-03-30 19:15:00 Mem orial Anibal Temperature Oral (F) 2015-03-30 19:15:00 97.6 F [facility] Anibal Respitory Rate 2015-03-30 19:15:00 Memori al Sod Systolic (mm Hg) 2015-03-30 18:01:00 Gerson rial Sod Diastolic (mm Hg) 2015-03-30 18:01:00 Mem orial Sod Respitory Rate 2015-03-30 18:01:00 Memori al Sod Systolic (mm Hg) 2015-03-30 17:11:00 Gerson rial Sod Diastolic (mm Hg) 2015-03-30 17:11:00 Mem orial Anibal Heart Rate 2015-03-30 17:11:00 Memorial Anibal Respitory Rate 2015-03-30 17:11:00 Memori al Anibal Weight 2015-03-30 16:12:00 Memorial Sod BMI Calculated 2015-03-30 16:12:00 Memori al Sod Height 2015-03-30 16:12:00 180.34 cm Memorial Anibal Temperature Oral (F) 2015-03-30 16:12:00 97.9 F Memorial Sod Heart Rate 2015-03-30 16:12:00 Memorial Sod Respitory Rate 2015-02-15 10:20:00 Memori al Anibal Systolic (mm Hg) 2015-02-15 10:00:00 Gerson rial Anibal Diastolic (mm Hg) 2015-02-15 10:00:00 Mem orial Anibal Respitory Rate 2015-02-15 09:00:00 Memori al Anibal Respitory Rate 2015-02-15 08:00:00 Memori al Sod Systolic (mm Hg) 2015-02-15 06:00:00 Gerson rial Anibal Diastolic (mm Hg) 2015-02-15 06:00:00 Mem orial Sod Systolic (mm Hg) 2015-02-15 05:00:00 Gerson rial Anibal Diastolic (mm Hg) 2015-02-15 05:00:00 Mem orial Sod Temperature Oral (F) 2015-02-15 03:08:00 99.0 F [facility] Anibal Temperature Oral (F) 2015-02-14 03:00:00 98.7 F [facility] Anibal Temperature Oral (F) 2015-02-14 01:00:00 98.1 F [facility] BMI Calculated 2015-02-13 00:55:00 [facility] Height 2015-02-13 00:55:00 182.88 cm [facility] Weight 2015-02-13 00:55:00 [facility] Systolic (mm Hg) 2014-12-14 17:00:00 [facility] Diastolic (mm Hg) 2014-12-14 17:00:00 [facility] Respitory Rate 2014-12-14 17:00:00 [facility] Respitory Rate 2014-12-14 16:03:00 [facility] Respitory Rate 2014-12-14 16:02:00 [facility] Systolic (mm Hg) 2014-12-14 15:51:00 [place] [facility] Diastolic (mm Hg) 2014-12-14 15:51:00 [facility] Systolic (mm Hg) 2014-12-14 15:42:00 [facility] [facility] Diastolic (mm Hg) 2014-12-14 15:42:00 [facility] Temperature Oral (F) 2014-12-14 12:49:00 96.2 F [facility] Temperature Oral (F) 2014-12-14 11:14:00 97.0 F [facility] Temperature Oral (F) 2014-12-14 05:58:00 97.0 F [facility] Heart Rate 2014-12-13 15:30:00 [facility] Heart Rate 2014-12-13 15:20:00 [facility] Weight 2014-12-12 23:59:00 [facility] Height 2014-12-12 09:52:00 182.88 cm [facility] Weight 2014-12-12 09:52:00 [facility] BMI Calculated 2014-12-12 09:52:00 [facility] BMI Calculated 2014-12-12 09:50:00 [facility] Weight 2014-12-12 09:50:00 [facility] Height 2014-12-12 09:50:00 182.88 cm [facility] Heart Rate 2014-10-27 17:00:00 [facility] Respitory Rate 2014-10-27 17:00:00 [facility] Systolic (mm Hg) 2014-10-27 17:00:00 [facility] [facility] Diastolic (mm Hg) 2014-10-27 17:00:00 [facility] Temperature Oral (F) 2014-10-27 17:00:00 98.0 F [facility] Heart Rate 2014-10-27 13:00:00 [facility] Respitory Rate 2014-10-27 13:00:00 [facility] Systolic (mm Hg) 2014-10-27 13:00:00 [facility] Diastolic (mm Hg) 2014-10-27 13:00:00 [facility] Temperature Oral (F) 2014-10-27 13:00:00 98.0 F [facility] Respitory Rate 2014-10-27 12:51:00 [facility] Systolic (mm Hg) 2014-10-27 09:19:00 [facility] Diastolic (mm Hg) 2014-10-27 09:19:00 [facility] Heart Rate 2014-10-27 09:19:00 [facility] Temperature Oral (F) 2014-10-27 09:19:00 98.5 F [facility] Height 2014-10-27 05:00:00 182.88 cm [facility] Weight 2014-10-27 05:00:00 [facility] BMI Calculated 2014-10-27 05:00:00 [facility] BMI Calculated 2014-10-26 20:37:00 [facility] Height 2014-10-26 20:37:00 182.88 cm [facility] Weight 2014-10-26 20:37:00 [facility] Systolic (mm Hg) 2014-07-20 17:00:00 [facility] Diastolic (mm Hg) 2014-07-20 17:00:00 [facility] Respitory Rate 2014-07-20 17:00:00 Memori al Anibal Systolic (mm Hg) 2014-07-20 16:00:00 Gerson rial Sod Diastolic (mm Hg) 2014-07-20 16:00:00 Mem orial Sod Respitory Rate 2014-07-20 16:00:00 Memori al Anibal Respitory Rate 2014-07-20 15:00:00 Memori al Anibal Systolic (mm Hg) 2014-07-20 14:30:00 Gerson rial Anibal Diastolic (mm Hg) 2014-07-20 14:30:00 Mem orial Sod Temperature Oral (F) 2014-07-20 11:17:00 98.0 F [facility] Temperature Oral (F) 2014-07-20 07:31:00 98.1 F [facility] Heart Rate 2014-07-20 07:31:00 [facility] Heart Rate 2014-07-20 04:52:00 [facility] Temperature Oral (F) 2014-07-20 04:52:00 97.5 F [facility] Heart Rate 2014-07-20 01:43:00 [facility] BMI Calculated 2014-07-19 22:35:00 [facility] al Anibal Weight 2014-07-19 22:35:00 [facility] Height 2014-07-19 22:35:00 182.88 cm [facility] Weight 2012-06-22 18:48:00 [facility] Height 2012-06-22 18:48:00 182.88 cm [facility] Weight 2012-03-01 01:01:00 [facility] Height 2012-03-01 01:01:00 182.88 cm [facility] Diastolic (mm Hg) 2011-07-12 15:00:00 Mem orial Sod Systolic (mm Hg) 2011-07-12 15:00:00 Gerson rial Anibal Respitory Rate 2011-07-12 15:00:00 Memori al Sod Temperature Oral (F) 2011-07-12 15:00:00 98.4 F [facility] Respitory Rate 2011-07-12 11:00:00 Memori al Sod Diastolic (mm Hg) 2011-07-12 11:00:00 Mem orial Sod Systolic (mm Hg) 2011-07-12 11:00:00 Gerson rial Anibal Temperature Oral (F) 2011-07-12 11:00:00 97.5 F [facility] Diastolic (mm Hg) 2011-07-12 02:56:00 Mem orial Anibal Systolic (mm Hg) 2011-07-12 02:56:00 Gerson rial Anibal Respitory Rate 2011-07-12 02:56:00 Memori al Sod Temperature Oral (F) 2011-07-12 02:56:00 97.8 F [facility] Heart Rate 2011-07-11 22:34:00 [facility] Heart Rate 2011-07-11 14:43:00 [facility] Heart Rate 2011-07-11 10:00:00 [facility] Height 2011-07-09 20:33:00 182.88 cm [facility] Weight 2011-07-09 20:33:00 [facility] Procedures Procedure Date / Time Performed Performing Clinician Betsy elliott Cervical discectomy [facility] Her story Cervical discectomy [facility] story Discectomy [facility] Vasectomy [facility] Plan of Care Planned Activity Planned Date Details Comments Source Future Scheduled 2021-09-04 Depression screening [facility] Test 00:00:00 (procedure) [code = Medical Branch [id number]] Future Scheduled 2021-09-04 Depression screening [facility] Test 00:00:00 (procedure) [code = Medical Branch 096206171] Future Scheduled 2021-09-04 Depression screening [facility] Test 00:00:00 (procedure) [code = Medical Branch [id number]] Future Scheduled 2021-09-04 Depression screening [facility] Test 00:00:00 (procedure) [code = Medical Branch 210336862] Future Scheduled 2021-01-03 INFLUENZA VACCINE [facility] [place] [facility] 00:00:00 (Season Ended) [code = Medic al Branch INFLUENZA VACCINE (Season Ended)] Future Scheduled 2021-01-03 [facility]UENZA VACCINE [facility] [place] Test 00:00:00 (Season Ended) [code = Medic al Branch INFLUENZA VACCINE (Season Ended)] Future Scheduled 2021-01-03 [facility]FLUENZA VACCINE [facility] [place] Test 00:00:00 (Season Ended) [code = Medic al Branch INFLUENZA VACCINE (Season Ended)] Future Scheduled 2021-01-03 INFLUENZA VACCINE [facility] [place] Test 00:00:00 (Season Ended) [code = Medic al Branch INFLUENZA VACCINE (Season Ended)] Future Scheduled 2020-09-12 SARS-CoV-2 (COVID-19) [facility] [place] [facility] 00:00:00 Vaccine (2 - Moderna Medical Branch 2-dose series) [code = SARS-CoV-2 (COVID-19) Vaccine (2 - Moderna 2-dose series)] Future Scheduled 2020-09-12 SARS-CoV-2 (COVID-19) [facility] [place] [facility] 00:00:00 Vaccine (2 - Moderna Medical Branch 2-dose series) [code = SARS-CoV-2 (COVID-19) Vaccine (2 - Moderna 2-dose series)] Future Scheduled 2020-09-12 SARS-CoV-2 (COVID-19) [facility] [place] [facility] 00:00:00 Vaccine (2 - Moderna Medical Branch 2-dose series) [code = SARS-CoV-2 (COVID-19) Vaccine (2 - Moderna 2-dose series)] Future Scheduled 2020-09-12 SARS-CoV-2 (COVID-19) [facility] [place] [facility] 00:00:00 Vaccine (2 - Moderna Medical Branch 2-dose series) [code = SARS-CoV-2 (COVID-19) Vaccine (2 - Moderna 2-dose series)] Future Scheduled 2020 Screening for occult [facility] Test 00:00:00 blood in feces Medical [facility] h (procedure) [code = [id number]] Future Scheduled 2020 Stool DNA-based [facility] Test 00:00:00 colorectal cancer Medical Br anch screening (procedure) [code = 022462542877157] Future Scheduled 2020 [facility] Test 00:00:00 sigmoidoscopy Medical Branch (procedure) [code = 68675212] Future Scheduled 2020 Screening for [facility] Test 00:00:00 malignant neoplasm of Medica l Branch colon (procedure) [code = 984942319] Future Scheduled 2020 Screening for [facility] Test 00:00:00 malignant neoplasm of Medica l Branch colon (procedure) [code = 718359489] Future Scheduled 2020 [facility] Test 00:00:00 Vaccine (SHINGRIX) (1 Medica l Branch of 2) [code = Zoster Recombinant Vaccine (SHINGRIX) (1 of 2)] Future Scheduled 2020 Screening for occult [facility] [place] Test 00:00:00 blood in feces Medical Branc h (procedure) [code = 137135450] Future Scheduled 2020 Stool DNA-based [facility] Test 00:00:00 colorectal cancer Medical Br anch screening (procedure) [code = 064222672930713] Future Scheduled 2020 [facility] [place] [facility] 00[facility]00:00 sigmoidoscopy Medical Branch (procedure) [code = 42910174] Future Scheduled 2020 Scre[facility] for [facility] Test 00:00:00 malignant neoplasm of Medica l Branch colon (procedure) [code = 508717087] Future Scheduled 2020 Screening for [facility] Test 00:00:00 malignant neoplasm of Medica l Branch colon (procedure) [code = 918401969] Future Scheduled 2020 [facility] Vaccine (SHINGRIX) (1 Medica l Branch of 2) [code = Zoster Recombinant Vaccine (SHINGRIX) (1 of 2)] Future Scheduled 2020 Screening for occult [facility] [place] Test 00:00:00 blood in feces Medical Branc h (procedure) [code = 883681410] Future Scheduled 2020 Stool DNA-based [facility] Test 00:00:00 colorectal cancer Medical Br anch screening (procedure) [code = 820695376656867] Future Scheduled 2020 [facility]00 sigmoidoscopy Medical Branch (procedure) [code = 27562527] Future Scheduled 2020 Screening for [facility] Test 00:00:00 malignant neoplasm of Medica l Branch colon (procedure) [code = 617297519] Future Scheduled 2020 Screening for [facility] Test 00:00:00 malignant neoplasm of Medica l Branch colon (procedure) [code = 574397933] Future Scheduled 2020 Zoster Recombinant [facility] [place] Test 00:00:00 Vaccine (SHINGRIX) (1 Medica l Branch of 2) [code = Zoster Recombinant Vaccine (SHINGRIX) (1 of 2)] Future Scheduled 2020 Screening for occult [facility] [place] Test 00:00:00 blood in feces Medical Branc h (procedure) [code = 790212209] Future Scheduled 2020 Stool DNA-based [facility] Test 00:00:00 colorectal cancer Medical Br anch screening (procedure) [code = 558341800076197] Future Scheduled 2020 [facility]:00 sigmoidoscopy Medical Branch (procedure) [code = 66191935] Future Scheduled 2020 Screening for [facility] Test 00:00:00 malignant neoplasm of Medica l Branch colon (procedure) [code = 525692679] Future Scheduled 2020 Screening for [facility] Test 00:00:00 malignant neoplasm of Medica l Branch colon (procedure) [code = 638933839] Future Scheduled [address] [facility] Test 00:00:00 Vaccine (SHINGRIX) (1 Medica l Branch of 2) [code = Zoster Recombinant Vaccine (SHINGRIX) (1 of 2)] Future Scheduled 1989 DTaP,Tdap,and Td [facility] [place] Test 00:00:00 Vaccines (1 - Tdap) Medical Branch [code = DTaP,Tdap,and Td Vaccines (1 - Tdap)] Future Scheduled 1989 DTaP,Tdap,and Td [facility] [place] Test 00:00:00 Vaccines (1 - Tdap) Medical Branch [code = DTaP,Tdap,and Td Vaccines (1 - Tdap)] Future Scheduled 1989 DTaP,Tdap,and Td [facility] [place] Test 00:00:00 Vaccines (1 - Tdap) Medical Branch [code = DTaP,Tdap,and Td Vaccines (1 - Tdap)] Future Scheduled 1989 DTaP,Tdap,and Td [facility] [place] Test 00:00:00 Vaccines (1 - Tdap) Medical Branch [code = DTaP,Tdap,and Td Vaccines (1 - Tdap)] Future Scheduled 1988 [facility]00 (procedure) [code = Medical Branch 118672545] Future Scheduled 1988 [facility]00 (procedure) [code = Medical Branch 582734333] Future Scheduled 1988 Hepatitis C screening [facility] [place] [facility] 00:00:00 (procedure) [code = Medical Branch 296713355] Future Scheduled 1988 Hepatitis C screening [facility] [place] Test 00:00:00 (procedure) [code = Medical Branch 025788905] Future Scheduled 1976 PNEUMOCOCCAL 0-64 [facility] [place] Test 00:00:00 YEARS COMBINED SERIES Medica l Branch (1 of 3 - PCV13) [code = PNEUMOCOCCAL 0-64 YEARS COMBINED SERIES (1 of 3 - PCV13)] Future Scheduled 1976 PNEUMOCOCCAL 0-64 [facility] [place] Test 00:00:00 YEARS COMBINED SERIES Medica l Branch (1 of 3 - PCV13) [code = PNEUMOCOCCAL 0-64 YEARS COMBINED SERIES (1 of 3 - PCV13)] Future Scheduled 1976 PNEUMOCOCCAL 0-64 [facility] [place] Test 00:00:00 YEARS COMBINED SERIES Medica l Branch (1 of 3 - PCV13) [code = PNEUMOCOCCAL 0-64 YEARS COMBINED SERIES (1 of 3 - PCV13)] Future Scheduled 1976 PNEUMOCOCCAL 0-64 [facility] [place] Test 00:00:00 YEARS COMBINED SERIES Medica l Branch (1 of 3 - PCV13) [code = PNEUMOCOCCAL 0-64 YEARS COMBINED SERIES (1 of 3 - PCV13)] Encounters Start End Encounter Admission Attending Care Care Encounter Source Date/Time Date/Time Type Type Clinicians Facility Department ID 2021-05-08 Inpatient E DHOBLE, [facility] CAR [id number] [facility] 08:15:00 KIM 2016-05-24 2016-05-25 Observatio nullFlavo [facility] [id number] Memoria 21:44:00 21:20:00 n maurice Barnett 69 l [facility] 2016-01-19 2016-01-20 Inpatient nullFlavo [facility] [id number] Memoria 23:17:00 20:05:00 r Anibal 00 [facility] 2015-03-30 2015-03-30 EC nullFlavo [facility] [id number] Memoria 16:10:00 19:24:00 Emergency r Anibal 67 l [facility] 2015-02-12 2015-02-15 Inpatient nullFlavo [facility] [id number] Memoria 23:56:00 21:31:00 r Sod 84 l [facility] 2014-12-12 2014-12-14 Inpatient [facility] [id number] Memoria 08:41:00 17:57:00 r Sod 22 l [facility] 2014-10-26 2014-10-27 [id number] Memoria 20:29:00 20:57:00 Observatio r Sod 06 l n Patient [facility] 2014-07-19 2014-07-20 OBS elmoFlavo [facility] [id number] Memoria 22:35:00 17:30:00 Observatio r Sod 67 l n Patient [facility] 2012-06-22 2012-06-22 Emergency nullFlavo [facility] [id number] Memoria 12:36:00 17:25:00 r Medical 04 [facility] 2012-02-29 2012-03-01 Emergency nullFlavo [facility] [id number] Memoria 19:52:00 02:35:00 r Medical 03 l [facility] 2011-07-09 2011-07-12 Inpatient nullFlavo [facility] [id number] Memoria 18:06:00 13:31:00 r Medical 02 [facility] 2010-10-13 2010-10-13 Emergency nullFlavo [facility] [id number] Memoria 10:57:00 13:12:00 r Medical 01 [facility] 2010-03-16 2010-03-16 Emergency nullFlavo [facility] [id number] Memoria 09:47:00 17:11:00 r Medical 00 [facility] Results Test Description Test Time Test Comments Results Result [facility] e Comments CT HEAD W/O 2016-12-18 LOCATION: [id number]: CONTRAST 01:12:32 46-year-old male who presents with a head injury.COMMENT: After-hours service at 1:11 a.m.Axial imaging of the patient's brain was obtained with IV contrast. Soft tissueand bone window images were provided. A sagittal soft tissue reconstruction wasincluded. The study was obtained [facility]One or more of the following dose [...] = PLTMOR) NORMAL (1.5-3 um) NORMAL CARDIAC [id number] 01:02:00 Test Item Value Reference Range Interpretation Comments TROPONIN I (test code = A84) 0.032 ng/mL 0.000-0.045 CKMB (test code = A49) 2.4 ng/mL <=3.6 CPK (test code = 32A) 390 IU/L 39-308 H DRUGS OF [id number] 01:01:00 Test Item Value Reference Range Interpretation [...] METHADONE (test code Negative NEGATIVE = 64A) DORHONDA (test code = BABAK) *URINE DRUG SCREEN Cut-off values are as follows: Cannabinoids 50 ng/mL Cocaine 300 ng/mL Amphetamines 1000 ng/mL Phencyclidine 25 ng/mL Benzodiazepines 200 ng.mL Methadone 300 ng/mL Barbiturates 200 ng/mL Opiates 2000 ng/mL COMPREHENSIVE METABOLIC [id number] 01:00:00 Test Item Value Reference Range Interpretation [...] = 31A) 63 IU/L <=78 URINALYSIS WITH [id number] 00:55:00 Test Item Value Reference Range Interpretation [...] = /HPF NONE USPERM) PRO TIME AND [id number] 00:54:00 Test Item Value Reference Range Interpretation [...] Code is ANTI-XA XR CHEST 1 VIEW [id number] 00:53:14LOCATION: [id number]: 46-year-old male who presents with a fever.COMMENT: After-hours service at 12:52 a.m.A frontal chest radiograph was obtained at the bedside at 12:45 a.m. The lungs are clear and well-aerated. The cardiac silhouette, cem, andmediastinum are within normal limits. The skeleton is intact, and thesurrounding soft tissues are unremarkable. IMPRESSION:Unremarkable portable examination of the chest. URINE AND [id number] 06:51:00 Test Item Value Reference Range Interpretation Comments UA Urobilinogen (test code = UA <=1.0 mg/dL 0.1-1.0 Urobilinogen) [facility] AND [id number] 06:51:00 Test Item Value Reference Range Interpretation Comments UA Turbidity (test code = Clear (05/25/16 12:51 UA Turbidity) AM) [facility] AND [id number] 06:51:00 Test Item Value Reference Range Interpretation Comments UA Spec Grav (test code = UA Spec Grav) 1.034 [facility] AND [id number] 06:51:00 Test Item Value Reference Range Interpretation Comments UA Color (test code = Light Yellow UA Color) *NA*(05/25/16 12:51 AM) [facility] AND [id number] 06:51:00 Test Item Value Reference Range Interpretation Comments UA Ketones (test code = UA Negative mg/dL Ketones) [facility] AND [id number] 06:51:00 Test Item Value Reference Range Interpretation Comments UA Bili (test code = Negative *NA*(05/25/16 UA Bili) 12:51 AM) [facility] AND [id number] 06:51:00 Test Item Value Reference Range Interpretation Comments UA pH (test code = UA pH) 8.0 5.0-8.0 [facility] AND [id number] 06:51:00 Test Item Value Reference Range Interpretation Comments UA Protein (test code = UA Negative mg/dL Protein) [facility] AND [id number] 06:51:00 Test Item Value Reference Range Interpretation Comments UA Glucose (test code = UA Negative mg/dL Glucose) [facility] AND [id number] 06:51:00 Test Item Value Reference Range Interpretation Comments UA Sq Epi (test code = UA Sq Occasional /LPF Epi) [facility] AND [id number] 06:51:00 Test Item Value Reference Range Interpretation Comments UA RBC (test code = 1 See_Comment [Automa clarita message] The UA RBC) system which nerated this result transmit clarita reference range : <=2. The reference range was not used to interpr et this result as brendan l/abnormal. [facility] AND [id number] 06:51:00 Test Item Value Reference Range Interpretation Comments UA Blood (test code = Negative (05/25/16 12:51 UA Blood) AM) [facility] AND [id number] 06:51:00 Test Item Value Reference Range Interpretation Comments UA Nitrite (test code Negative (05/25/16 12:51 = UA Nitrite) AM) [facility] AND [id number] 06:51:00 Test Item Value Reference Range Interpretation Comments UA Leuk Est (test Negative (05/25/16 12:51 code = UA Leuk Est) AM) [id number] 22:40:00 Test Item Value Reference Range Interpretation Comments CK MB Index (test 0.9 See_Comment [Automate d message] The code = CK MB Index) system w [facility] generated this result transmit clarita reference range : <=2.5. The reference range was not used to interpr et this result as brendan l/abnormal. [facility] [id number] 22:40:00 Test Item Value Reference Range Interpretation Comments CK MB (test code = CK MB) 1.6 0.5-3.6 [facility] [id number] 22:40:00 Test Item Value Reference Range Interpretation Comments Total CK (test code = Total CK) 183 12-191 [facility] [id number] 22:40:00 Test Item Value Reference Range Interpretation Comments Troponin-I (test code no gt See_Comment [Auto mated message] The = Troponin-I) system which g enerated this result transmit clarita reference range : <=0.40. The reference r sumeet was not used to interpr et this result as brendan l/abnormal. [id number] 22:40:00 Test Item Value Reference Range Interpretation Comments AGAP (test code = AGAP) 11.7 10.0-20.0 [id number] 22:40:00 Test Item Value Reference Range Interpretation Comments eGFR (test code = eGFR) 97 [facility][id number] 22:40:00 Test Item Value Reference Range Interpretation Comments CO2 (test code = CO2) 27 24-32 [id number] 22:40:00 Test Item Value Reference Range Interpretation Comments Calcium Lvl (test code = Calcium Lvl) 9.0 8.5-10.5 [id number] 22:40:00 Test Item Value Reference Range Interpretation Comments Glucose Lvl (test code = Glucose Lvl) 110 70-99 [id number] 22:40:00 Test Item Value Reference Range Interpretation Comments BUN (test code = BUN) 15 7-22 [id number] 22:40:00 Test Item Value Reference Range Interpretation Comments Potassium Lvl (test code = Potassium 3.7 3.5-5.1 Lvl) [id number] 22:40:00 Test Item Value Reference Range Interpretation Comments Sodium Lvl (test code = Sodium Lvl) 139 135-145 [id number] 22:40:00 Test Item Value Reference Range Interpretation Comments Chloride Lvl (test code = Chloride Lvl) 104 95-109 [facility]awIwngobgLSNVZBOZEVIE0035-13-09 22:40:00 Test Item Value Reference Range Interpretation Comments Creatinine Lvl (test code = Creatinine 0.94 0.50-1.40 Lvl) [id number] 22:40:00 Test Item Value Reference Range Interpretation Comments Segs-Bands # (test code = Segs-Bands #) 10.7 1.5-8.1 [facility] D[id number] 22:40:00 Test Item Value Reference Range Interpretation Comments Basophils (test code = 0.9 See_Comment [Aut omated message] The Basophils) system which ge nerated this result tra nsmitted reference range : <=1.0. The reference r sumeet was not used to int erpret this result as normal/abnormal . [facility] [id number] 22:40:00 Test Item Value Reference Range Interpretation Comments Eosinophils # (test code 0.2 See_Comment [A utomated message] The = Eosinophils #) system whic h generated this result tra nsmitted reference range : <=0.5. The reference r sumeet was not used to int erpret this result as normal/abnormal . [facility] [id number] 22:40:00 Test Item Value Reference Range Interpretation Comments Lymphocytes # (test code = Lymphocytes 2.1 1.0-5.5 #) [facility] Dall[id number] 22:40:00 Test Item Value Reference Range Interpretation Comments Monocytes # (test code 1.2 See_Comment [Aut omated message] The = Monocytes #) system which generated this result tra nsmitted reference range : <=0.8. The reference r sumeet was not used to int erpret this result as normal/abnormal . [facility] [id number] 22:40:00 Test Item Value Reference Range Interpretation Comments Basophils # (test code 0.1 See_Comment [Aut omated message] The = Basophils #) system which generated this result tra nsmitted reference range : <=0.2. The reference r sumeet was not used to int erpret this result as normal/abnormal . [facility] [id number] 22:40:00 Test Item Value Reference Range Interpretation Comments Segs (test code = Segs) 74.6 45.0-75.0 [facility] [id number] 22:40:00 Test Item Value Reference Range Interpretation Comments Lymphocytes (test code = Lymphocytes) 14.6 20.0-40.0 [facility] Dall[id number] 22:40:00 Test Item Value Reference Range Interpretation Comments Monocytes (test code = Monocytes) 8.4 2.0-12.0 [facility] [id number] 22:40:00 Test Item Value Reference Range Interpretation Comments Eosinophils (test code = 1.5 See_Comment [A utomated message] The Eosinophils) system which ge nerated this result tra nsmitted reference range : <=4.0. The reference r sumeet was not used to int erpret this result as normal/abnormal . [facility] D[id number] 22:40:00 Test Item Value Reference Range Interpretation Comments MCH (test code = MCH) 31.8 pg 27.0-31.0 [facility] D[id number] 22:40:00 Test Item Value Reference Range Interpretation Comments MCV (test code = MCV) 93.9 80.0-94.0 [facility] Dall[id number] 22:40:00 Test Item Value Reference Range Interpretation Comments MCHC (test code = MCHC) 33.9 32.0-36.0 [facility] Dall[id number] 22:40:00 Test Item Value Reference Range Interpretation Comments Hct (test code = Hct) 42.7 42.0-54.0 [facility] DallasEinpgeeSWCDNHQSLN3203-51-12 22:40:00 Test Item Value Reference Range Interpretation Comments MPV (test code = MPV) 9.7 7.4-10.4 [facility] DallasRnkdsekIEFGHNGNOY5922-78-05 22:40:00 Test Item Value Reference Range Interpretation Comments Platelet (test code = Platelet) 224 133-450 [facility] DallasHzhunelLZCBJOTIGE1117-87-59 22:40:00 Test Item Value Reference Range Interpretation Comments RDW (test code = RDW) 12.9 11.5-14.5 [facility] DallasFjvqxzvUGXNMSZIUJ1700-24-85 22:40:00 Test Item Value Reference Range Interpretation Comments WBC (test code = WBC) 14.3 3.7-10.4 [facility] D[id number] 22:40:00 Test Item Value Reference Range Interpretation Comments RBC (test code = RBC) 4.55 4.70-6.10 [facility] DallasAhfckaaQIEEKGQXOF1514-67-53 22:40:00 Test Item Value Reference Range Interpretation Comments Hgb (test code = Hgb) 14.5 14.0-18.0 [facility]2016-09-17 14:13:00 Test Item Value Reference Range Interpretation Comments eGFR (test code = eGFR) 108 [facility]2016-09-17 14:13:00 Test Item Value Reference Range Interpretation Comments Glucose Lvl (test code = Glucose Lvl) 95 70-99 [facility]2016-09-17 14:13:00 Test Item Value Reference Range Interpretation Comments BUN (test code = BUN) 13 7-22 [facility] [facility] 14:13:00 Test Item Value Reference Range Interpretation Comments Chloride Lvl (test code = Chloride Lvl) 104 95-109 [facility]2016-09-17 14:13:00 Test Item Value Reference Range Interpretation Comments Calcium Lvl (test code = Calcium Lvl) 8.4 8.5-10.5 [facility]2016-09-17 14:13:00 Test Item Value Reference Range Interpretation Comments CO2 (test code = CO2) 28 24-32 [facility]2016-09-17 14:13:00 Test Item Value Reference Range Interpretation Comments Creatinine Lvl (test code = Creatinine 0.80 0.50-1.40 Lvl) [facility]2016-09-17 14:13:00 Test Item Value Reference Range Interpretation Comments Potassium Lvl (test code = Potassium 3.7 3.5-5.1 Lvl) [facility]2016-09-17 14:13:00 Test Item Value Reference Range Interpretation Comments Sodium Lvl (test code = Sodium Lvl) 139 135-145 [facility]2016-09-17 14:13:00 Test Item Value Reference Range Interpretation Comments AGAP (test code = AGAP) 10.7 10.0-20.0 [facility]EaiwpcaBMXNGSAYLD0524-92-48 14:13:00 Test Item Value Reference Range Interpretation Comments WBC (test code = WBC) 7.2 3.7-10.4 [facility] DallasOgbignyCKTWEIACYX4907-25-96 14:13:00 Test Item Value Reference Range Interpretation Comments RBC (test code = RBC) 4.67 4.70-6.10 [facility] DallasMlbmjuzDBFKBHLCFF8319-26-13 14:13:00 Test Item Value Reference Range Interpretation Comments Hgb (test code = Hgb) 14.6 14.0-18.0 [facility] DallasBjruwzbCJXUFLFWEA8259-86-25 14:13:00 Test Item Value Reference Range Interpretation Comments MCV (test code = MCV) 92.0 80.0-94.0 [facility] DallasFkkrufcHPRVMKDNAC0061-11-81 14:13:00 Test Item Value Reference Range Interpretation Comments Hct (test code = Hct) 43.0 42.0-54.0 [facility] DallasAshtnnlNLKWBIHWXT5504-52-79 14:13:00 Test Item Value Reference Range Interpretation Comments MCH (test code = MCH) 31.2 pg 27.0-31.0 [facility] DallasNfgrswrKKYLPVKHMS7306-44-49 14:13:00 Test Item Value Reference Range Interpretation Comments MCHC (test code = MCHC) 33.9 32.0-36.0 [facility] DallasKwudspvTRFCXXSDAM1586-07-62 14:13:00 Test Item Value Reference Range Interpretation Comments RDW (test code = RDW) 13.4 11.5-14.5 [facility] DallasSviiedlYNHBGLODHD0015-53-80 14:13:00 Test Item Value Reference Range Interpretation Comments Platelet (test code = Platelet) 168 133-450 [facility] DallasClsudsgTQFERQILMI7383-77-10 14:13:00 Test Item Value Reference Range Interpretation Comments MPV (test code = MPV) 10.0 7.4-10.4 [facility] DallasVzaqnbbJNUIKXILYV0236-51-06 14:13:00 Test Item Value Reference Range Interpretation Comments Eosinophils (test code = 4.8 See_Comment [A utomated message] The Eosinophils) system which ge nerated this result tra nsmitted reference range : <=4.0. The reference r sumeet was not used to int erpret this result as normal/abnormal . [facility] DallasTshornvYIQPVBWTWL5957-70-43 14:13:00 Test Item Value Reference Range Interpretation Comments Lymphocytes (test code = Lymphocytes) 35.7 20.0-40.0 [facility] DallasMqmmqtbDYZYSNRVAL3027-27-59 14:13:00 Test Item Value Reference Range Interpretation Comments Monocytes (test code = Monocytes) 9.1 2.0-12.0 [facility] DallasTgcoettGSFOJZNXWY2140-51-70 14:13:00 Test Item Value Reference Range Interpretation Comments Segs (test code = Segs) 49.2 45.0-75.0 [facility] DallasBfjadglWYADBBFYUO0930-34-00 14:13:00 Test Item Value Reference Range Interpretation Comments Monocytes # (test code 0.7 See_Comment [Aut omated message] The = Monocytes #) system which generated this result tra nsmitted reference range : <=0.8. The reference r sumeet was not used to int erpret this result as normal/abnormal . [facility] DallasXbweztvRCIIXQPWHK5690-32-01 14:13:00 Test Item Value Reference Range Interpretation Comments Eosinophils # (test code 0.3 See_Comment [A utomated message] The = Eosinophils #) system whic h generated this result tra nsmitted reference range : <=0.5. The reference r sumeet was not used to int erpret this result as normal/abnormal . [facility] DallasWeteqpnACELZGYGKF5054-02-40 14:13:00 Test Item Value Reference Range Interpretation Comments Basophils # (test code 0.1 See_Comment [Aut omated message] The = Basophils #) system which generated this result tra nsmitted reference range : <=0.2. The reference r sumeet was not used to int erpret this result as normal/abnormal . [facility] DallasAtpqefsFCBTDRGXKA4810-87-86 14:13:00 Test Item Value Reference Range Interpretation Comments Lymphocytes # (test code = Lymphocytes 2.6 1.0-5.5 #) [facility] DallasSagjbvsXSSSVHXJJB7419-66-25 14:13:00 Test Item Value Reference Range Interpretation Comments Basophils (test code = 1.2 See_Comment [Aut omated message] The Basophils) system which ge nerated this result tra nsmitted reference range : <=1.0. The reference r sumeet was not used to int erpret this result as normal/abnormal . [facility] DallasDjupruoEVQNGVKEKY0476-36-56 14:13:00 Test Item Value Reference Range Interpretation Comments Segs-Bands # (test code = Segs-Bands #) 3.5 1.5-8.1 [facility]YSOVGETOZ9858[facility]-73 14:13:00 Test Item Value Reference Range Interpretation Comments Ethanol Lvl (test code = Ethanol Lvl) no gt [facility] IgnygubHNMNZWZPZB5834-84-89 14:13:00 Test Item Value Reference Range Interpretation Comments Etoh (%) (test code = Etoh (%)) [facility] gt [facility] TIPFGB6208[facility]35-86 03:50:00 Test Item Value Reference Range Interpretation Comments UDS Note (test code = See Note (01/19/16 10:50 UDS Note) PM) [facility] [id number] 03:50:00 Test Item Value Reference Range Interpretation Comments U Phencyc Scr (test Negative *NA*(01/19/16 code = U Phencyc Scr) 10:50 PM) [facility] [id number] 03:50:00 Test Item Value Reference Range Interpretation Comments U Cocaine Scr (test Negative *NA*(01/19/16 code = U Cocaine Scr) 10:50 PM) [facility] [id number] 03:50:00 Test Item Value Reference Range Interpretation Comments U Benzodia Scr (test Positive *ABN*(01/19/16 code = U Benzodia Scr) 10:50 PM) [facility] [id number] 03:50:00 Test Item Value Reference Range Interpretation Comments U Shi Scr (test code Negative *NA*(01/19/16 = U Shi Scr) 10:50 PM) [facility] [id number] 03:50:00 Test Item Value Reference Range Interpretation Comments U Amph Scr (test code Negative *NA*(01/19/16 = U Amph Scr) 10:50 PM) [facility] [id number] 03:50:00 Test Item Value Reference Range Interpretation Comments U Opiate Scr (test Positive *ABN*(01/19/16 code = U Opiate Scr) 10:50 PM) [facility] [id number] 03:50:00 Test Item Value Reference Range Interpretation Comments U Cannab Scr (test Negative *NA*(01/19/16 code = U Cannab Scr) 10:50 PM) [facility] [id number] 03:50:00 Test Item Value Reference Range Interpretation Comments UA Urobilinogen (test code = UA <=1.0 mg/dL 0.1-1.0 Urobilinogen) [facility] AND [id number] 03:50:00 Test Item Value Reference Range Interpretation Comments UA Spec Grav (test >=1.050 *ABN*(01/19/16 code = UA Spec Grav) 10:50 PM) [facility] AND [id number] 03:50:00 Test Item Value Reference Range Interpretation Comments UA WBC (test code = 1 See_Comment [Automa clarita message] The UA WBC) system which ge nerated this result transmit clarita reference range : <=5. The reference range was not used to interpr et this result as brendan l/abnormal. [facility] AND [id number] 03:50:00 Test Item Value Reference Range Interpretation Comments Micro? (test code = Performed *NA*(01/19/16 Micro?) 10:50 PM) [facility] AND [id number] 03:50:00 Test Item Value Reference Range Interpretation Comments UA Mucus (test code = UA Mucus) Moderate /LPF [facility] AND [id number] 03:50:00 Test Item Value Reference Range Interpretation Comments UA CaOx Cheryl (test code = UA CaOx Few /HPF Cheryl) [facility] AND [id number] 03:50:00 Test Item Value Reference Range Interpretation Comments UA Leuk Est (test Negative (01/19/16 10:50 code = UA Leuk Est) PM) [facility] AND [id number] 03:50:00 Test Item Value Reference Range Interpretation Comments UA Nitrite (test code Negative (01/19/16 10:50 = UA Nitrite) PM) [facility] AND [id number] 03:50:00 Test Item Value Reference Range Interpretation Comments UA Ketones (test code = UA Negative mg/dL Ketones) [facility] AND [id number] 03:50:00 Test Item Value Reference Range Interpretation Comments UA Bili (test code = Negative *NA*(01/19/16 UA Bili) 10:50 PM) [facility] AND [id number] 03:50:00 Test Item Value Reference Range Interpretation Comments UA Blood (test code = Negative (01/19/16 10:50 UA Blood) PM) [facility] AND [id number] 03:50:00 Test Item Value Reference Range Interpretation Comments UA Glucose (test code = UA Negative mg/dL Glucose) [facility] AND [id number] 03:50:00 Test Item Value Reference Range Interpretation Comments UA Protein (test code = UA Protein) 50 mg/dL [facility] AND [id number] 03:50:00 Test Item Value Reference Range Interpretation Comments UA Color (test code = Yellow *NA*(01/19/16 UA Color) 10:50 PM) [facility] AND [id number] 03:50:00 Test Item Value Reference Range Interpretation Comments UA Turbidity (test code = Clear (01/19/16 10:50 UA Turbidity) PM) [facility] AND [id number] 03:50:00 Test Item Value Reference Range Interpretation Comments UA pH (test code = UA pH) 6.0 5.0-8.0 [facility]XacjndaWPFPGQ2264-45-84 03:35:00 Test Item Value Reference Range Interpretation Comments CHD Risk (test code = CHD Risk) 5.46 4.00-7.30 [facility]XuuinnfAYVJGM9929-59-75 03:35:00 Test Item Value Reference Range Interpretation Comments VLDL (test code = VLDL) 51 [facility] HospitalKnhgnndTTLETW8354-05-04 03:35:00 Test Item Value Reference Range Interpretation Comments LDL (Calculated) (test code = LDL 114 (Calculated)) [facility] HospitalHfipuhvQNKBWJ4189-55-14 03:35:00 Test Item Value Reference Range Interpretation Comments HDL (test code = HDL) 37 [facility] CampusKenkjgqFIURYR8664-65-32 03:35:00 Test Item Value Reference Range Interpretation Comments Trig (test code = Trig) 254 [facility] CampusZnvnkteNTALAB6469-43-94 03:35:00 Test Item Value Reference Range Interpretation Comments Chol (test code = Chol) 202 [facility] IJZGQPZOW2652-36-73 03:35:00 Test Item Value Reference Range Interpretation Comments Hgb A1C (test code = Hgb A1C) 6.0 [facility] CampusannCARDIAC [id number] 23:40:00 Test Item Value Reference Range Interpretation Comments Total CK (test code = Total CK) 144 12-191 [facility] [id number] 23:40:00 Test Item Value Reference Range Interpretation Comments Troponin-I (test code no gt See_Comment [Auto mated message] The = Troponin-I) system which g enerated this result transmit clarita reference range : <=0.40. The reference r sumeet was not used to interpr et this result as brendan l/abnormal. [facility] Hospital[facility]pp[facility] [id number] 23:40:00 Test Item Value Reference Range Interpretation Comments CK MB (test code = CK MB) 1.8 0.5-3.6 [facility] [id number] 23:40:00 Test Item Value Reference Range Interpretation Comments CK MB Index (test 1.2 See_Comment [Automate d message] The code = CK MB Index) system w [facility] generated this result transmit clarita reference range : <=2.5. The reference range was not used to interpr et this result as brendan l/abnormal. [facility]Be[facility] [id number] 23:40:00 Test Item Value Reference Range Interpretation Comments Bili Direct (test code 0.1 See_Comment [Aut omated message] The = Bili Direct) system which generated this result tra nsmitted reference range : <=0.3. The reference r sumeet was not used to int erpret this result as brendan l/abnormal. [facility]Be[facility] [id number] 23:40:00 Test Item Value Reference Range Interpretation Comments A/G Ratio (test code = A/G Ratio) 1.0 0.7-1.6 [facility] [id number] 23:40:00 Test Item Value Reference Range Interpretation Comments Globulin (test code = Globulin) 3.7 2.7-4.2 [facility] [id number] 23:40:00 Test Item Value Reference Range Interpretation Comments Bili Indirect (test 0.0 See_Comment [Automa clarita message] The code = Bili Indirect) system which generated this result tra nsmitted reference range : <=1.0. The reference r sumeet was not used to int erpret this result as normal/abnormal . [facility] [employer] [id number] 23:40:00 Test Item Value Reference Range Interpretation Comments Total Protein (test code = Total 7.3 6.4-8.4 Protein) [facility]2016-09-16 23:40:00 Test Item Value Reference Range Interpretation Comments Albumin Lvl (test code = Albumin Lvl) 3.6 3.5-5.0 [facility]2016-09-16 23:40:00 Test Item Value Reference Range Interpretation Comments ALT (test code = ALT) 72 See_Comment [Auto mated message] The system which ge nerated this result transmit clarita reference range : <=65. The reference range was not used to interpr et this result as brendan l/abnormal. [facility]2016-09-16 23:40:00 Test Item Value Reference Range Interpretation Comments Bili Total (test code = Bili Total) 0.1 0.2-1.3 [facility]2016-09-16 23:40:00 Test Item Value Reference Range Interpretation Comments Alk Phos (test code = Alk Phos) 103 39-136 [facility]2016-09-16 23:40:00 Test Item Value Reference Range Interpretation Comments AST (test code = AST) 39 See_Comment [Auto mated message] The system which ge nerated this result transmit clarita reference range : <=37. The reference range was not used to interpr et this result as brendan l/abnormal. [facility]2016-09-16 23:40:00 Test Item Value Reference Range Interpretation Comments Phosphorus (test code = Phosphorus) 3.8 2.5-4.5 [facility]2016-09-16 23:40:00 Test Item Value Reference Range Interpretation Comments Magnesium Lvl (test code = Magnesium 1.8 1.8-2.4 Lvl) [id number] 23:40:00 Test Item Value Reference Range Interpretation Comments AGAP (test code = AGAP) 12.0 10.0-20.0 [id number] 23:40:00 Test Item Value Reference Range Interpretation Comments Potassium Lvl (test code = Potassium 4.0 3.5-5.1 Lvl) [place]156-09-16 23:40:00 Test Item Value Reference Range Interpretation Comments eGFR (test code = eGFR) 87 [facility]awWfoynedMKOUESKIZETY8043-14-26 23:40:00 Test Item Value Reference Range Interpretation Comments CO2 (test code = CO2) 29 24-32 [facility]awWbqwihvABQBLVGMCOFB7032-05-62 23:40:00 Test Item Value Reference Range Interpretation Comments Chloride Lvl (test code = Chloride Lvl) 104 95-109 [facility]awJpodyfePKHEZQLVHPDM2017-13-39 23:40:00 Test Item Value Reference Range Interpretation Comments Calcium Lvl (test code = Calcium Lvl) 8.8 8.5-10.5 [facility]awHylztllEOGILWPORSNH1531-17-47 23:40:00 Test Item Value Reference Range Interpretation Comments BUN (test code = BUN) 13 7-22 [facility]awJwbxntxNIKXFBNGJXKX1187-21-47 23:40:00 Test Item Value Reference Range Interpretation Comments Glucose Lvl (test code = Glucose Lvl) 101 70-99 [facility]awNepvyruHQEZTELCCTPL9604-52-13 23:40:00 Test Item Value Reference Range Interpretation Comments Sodium Lvl (test code = Sodium Lvl) 141 135-145 [facility]awTpakwuhUJTAFLVXIVDP1050-70-35 23:40:00 Test Item Value Reference Range Interpretation Comments Creatinine Lvl (test code = Creatinine 1.03 0.50-1.40 Lvl) [facility] DallasFawmtrhGNERXCWTRE3824-40-04 23:40:00 Test Item Value Reference Range Interpretation Comments Lymphocytes (test code = Lymphocytes) 34.9 20.0-40.0 [facility] DallasUnnmmwwGJNFKONUYS7268-59-19 23:40:00 Test Item Value Reference Range Interpretation Comments Monocytes (test code = Monocytes) 14.1 2.0-12.0 [facility] DallasRfjsaivTWSENZMXYG6587-27-63 23:40:00 Test Item Value Reference Range Interpretation Comments Eosinophils (test code = 5.1 See_Comment [A utomated message] The Eosinophils) system which ge nerated this result tra nsmitted reference range : <=4.0. The reference r sumeet was not used to int erpret this result as normal/abnormal . [facility] DallasOcelpjoIGSSDZJKVR4396-37-82 23:40:00 Test Item Value Reference Range Interpretation Comments Basophils (test code = 1.3 See_Comment [Aut omated message] The Basophils) system which ge nerated this result tra nsmitted reference range : <=1.0. The reference r sumeet was not used to int erpret this result as normal/abnormal . [facility] DallasIwauaqfSEIPZPNIMP2787-67-23 23:40:00 Test Item Value Reference Range Interpretation Comments Segs-Bands # (test code = Segs-Bands #) 3.6 1.5-8.1 [facility] DallasHwrffbaOZYRPBEVSD0438-20-14 23:40:00 Test Item Value Reference Range Interpretation Comments Monocytes # (test code 1.1 See_Comment [Aut omated message] The = Monocytes #) system which generated this result tra nsmitted reference range : <=0.8. The reference r sumeet was not used to int erpret this result as normal/abnormal . [facility] DallasAliefluVGIJOJGKOF2264-00-25 23:40:00 Test Item Value Reference Range Interpretation Comments Lymphocytes # (test code = Lymphocytes 2.8 1.0-5.5 #) [facility] DallasSphqmruPSCXGYFGXV3897-86-34 23:40:00 Test Item Value Reference Range Interpretation Comments Basophils # (test code 0.1 See_Comment [Aut omated message] The = Basophils #) system which generated this result tra nsmitted reference range : <=0.2. The reference r sumete was not used to int erpret this result as normal/abnormal . [facility] DallasNtqgcozFXCZCRFGAX6304-29-58 23:40:00 Test Item Value Reference Range Interpretation Comments Eosinophils # (test code 0.4 See_Comment [A utomated message] The = Eosinophils #) system whic h generated this result tra nsmitted reference range : <=0.5. The reference r sumeet was not used to int erpret this result as normal/abnormal . [facility] DallasStfxdodFDIZBVCWDJ7401-67-75 23:40:00 Test Item Value Reference Range Interpretation Comments Segs (test code = Segs) 44.6 45.0-75.0 [facility] DallasNsykhecJVJJWXPMEL7827-01-38 23:40:00 Test Item Value Reference Range Interpretation Comments Hct (test code = Hct) 42.2 42.0-54.0 [facility] DallasCqydxueUMRUPESVYV7536-66-19 23:40:00 Test Item Value Reference Range Interpretation Comments Hgb (test code = Hgb) 14.2 14.0-18.0 [facility] DallasUftwovqAHAVSCVKME9393-38-38 23:40:00 Test Item Value Reference Range Interpretation Comments RBC (test code = RBC) 4.58 4.70-6.10 [facility] DallasNqymfwdWZSSWPJCCL2285-14-83 23:40:00 Test Item Value Reference Range Interpretation Comments WBC (test code = WBC) 8.1 3.7-10.4 [facility] DallasEvyvwgyWPBFSFUVON1724-16-19 23:40:00 Test Item Value Reference Range Interpretation Comments MCV (test code = MCV) 92.2 80.0-94.0 [facility] DallasTtjjvhxLVXXORBYQO2840-81-96 23:40:00 Test Item Value Reference Range Interpretation Comments MCH (test code = MCH) 31.0 pg 27.0-31.0 [facility] DallasDsahwnxZHVMIIDZGH2973-95-24 23:40:00 Test Item Value Reference Range Interpretation Comments MCHC (test code = MCHC) 33.6 32.0-36.0 [facility] DallasNedgrrvEPWDCUDOGM0004-51-55 23:40:00 Test Item Value Reference Range Interpretation Comments Platelet (test code = Platelet) 159 133-450 [facility] DallasLtsqigkZTBHUMTZTN8153-95-33 23:40:00 Test Item Value Reference Range Interpretation Comments RDW (test code = RDW) 13.8 11.5-14.5 [facility] DallasKqpsytzHMZCYQKEVK1425-35-96 23:40:00 Test Item Value Reference Range Interpretation Comments MPV (test code = MPV) 9.5 7.4-10.4 [facility] DallasScmbcgwZQOGGHVVZH2879-16-71 23:40:00 Test Item Value Reference Range Interpretation Comments INR (test code = INR) 0.87 0.85-1.17 [facility] DallasFmlrrjhEDUQBXDQBO7406-56-42 23:40:00 Test Item Value Reference Range Interpretation Comments PT (test code = PT) 12.1 s 12.0-14.7 [facility] DallasScealaqFDQWAFBBRE0655-85-04 23:40:00 Test Item Value Reference Range Interpretation Comments PTT (test code = PTT) 24.3 s 22.9-35.8 [facility]XfxheuxBXYCZUWHCI9420-59-88 16:44:00 Test Item Value Reference Range Interpretation Comments Etoh (%) (test code = Etoh (%)) no gt [facility] HospitalOczmyqkHJUWYWSSWL4650-91-09 16:44:00 Test Item Value Reference Range Interpretation Comments Ethanol Lvl (test code = Ethanol Lvl) no gt [facility] HospitalCHEM SIUJR4453-99-32 16:21:00 Test Item Value Reference Range Interpretation Comments Phosphorus (test code = Phosphorus) 1.6 2.5-4.5 [facility]2015-11-26 16:21:00 Test Item Value Reference Range Interpretation Comments Magnesium Lvl (test code = Magnesium 2.0 1.8-2.4 Lvl) [place] 451535-11-26 16:21:00 Test Item Value Reference Range Interpretation Comments Globulin (test code = Globulin) 4.3 2.0-4.0 [place] 451535-11-26 16:21:00 Test Item Value Reference Range Interpretation Comments A/G Ratio (test code = A/G Ratio) 0.9 0.7-1.6 [place] 451535-11-26 16:21:00 Test Item Value Reference Range Interpretation Comments Alk Phos (test code = Alk Phos) 102 39-136 [place] 451535-11-26 16:21:00 Test Item Value Reference Range Interpretation Comments Bili Total (test code = Bili Total) 0.2 0.2-1.3 [place] 451535-11-26 16:21:00 Test Item Value Reference Range Interpretation Comments AST (test code = AST) 36 See_Comment [Auto mated message] The system which ge nerated this result transmit clarita reference range : <=37. The reference range was not used to interpr et this result as brendan l/abnormal. [place] 451535-11-26 16:21:00 Test Item Value Reference Range Interpretation Comments Total Protein (test code = Total 8.2 6.4-8.4 Protein) [facility]2015-11-26 16:21:00 Test Item Value Reference Range Interpretation Comments Albumin Lvl (test code = Albumin Lvl) 3.9 3.5-5.0 [place] 451535-11-26 16:21:00 Test Item Value Reference Range Interpretation Comments ALT (test code = ALT) 61 See_Comment [Auto mated message] The system which ge nerated this result transmit clarita reference range : <=65. The reference range was not used to interpr et this result as brendan l/abnormal. [place] 451535-11-26 16:21:00 Test Item Value Reference Range Interpretation Comments Bili Direct (test code 0.0 See_Comment [Aut omated message] The = Bili Direct) system which generated this result tra nsmitted reference range : <=0.3. The reference r sumeet was not used to int erpret this result as brendan l/abnormal. [facility]2015-11-26 16:21:00 Test Item Value Reference Range Interpretation Comments Bili Indirect (test 0.2 See_Comment [Automa clarita message] The code = Bili Indirect) system which generated this result tra nsmitted reference range : <=1.0. The reference r sumeet was not used to int erpret this result as normal/abnormal . [facility]2015-11-26 16:21:00 Test Item Value Reference Range Interpretation Comments eGFR (test code = eGFR) 89 [facility]2015-11-26 16:21:00 Test Item Value Reference Range Interpretation Comments Calcium Lvl (test code = Calcium Lvl) 9.3 8.5-10.5 [facility]2015-11-26 16:21:00 Test Item Value Reference Range Interpretation Comments BUN (test code = BUN) 9 7-22 [facility]2015-11-26 16:21:00 Test Item Value Reference Range Interpretation Comments Glucose Lvl (test code = Glucose Lvl) 106 70-99 [facility]2015-11-26 16:21:00 Test Item Value Reference Range Interpretation Comments Potassium Lvl (test code = Potassium 4.5 3.5-5.1 Lvl) [facility]2015-11-26 16:21:00 Test Item Value Reference Range Interpretation Comments Sodium Lvl (test code = Sodium Lvl) 136 135-145 [facility]2015-11-26 16:21:00 Test Item Value Reference Range Interpretation Comments Creatinine Lvl (test code = Creatinine 1.02 0.50-1.40 Lvl) [facility]2015-11-26 16:21:00 Test Item Value Reference Range Interpretation Comments CO2 (test code = CO2) 26 24-32 [facility]2015-11-26 16:21:00 Test Item Value Reference Range Interpretation Comments Chloride Lvl (test code = Chloride Lvl) 101 95-109 [facility]2015-11-26 16:21:00 Test Item Value Reference Range Interpretation Comments AGAP (test code = AGAP) 13.5 10.0-20.0 [facility] [id number] 16:21:00 Test Item Value Reference Range Interpretation Comments U Phencyc Scr (test Negative *NA*(03/30/15 code = U Phencyc Scr) 10:21 AM) [facility] [id number] 16:21:00 Test Item Value Reference Range Interpretation Comments UDS Note (test code = See Note *NA*(03/30/15 UDS Note) 10:21 AM) [facility] [id number] 16:21:00 Test Item Value Reference Range Interpretation Comments U Cocaine Scr (test Negative *NA*(03/30/15 code = U Cocaine Scr) 10:21 AM) [facility] [id number] 16:21:00 Test Item Value Reference Range Interpretation Comments U Cannab Scr (test Negative *NA*(03/30/15 code = U Cannab Scr) 10:21 AM) [facility] [id number] 16:21:00 Test Item Value Reference Range Interpretation Comments U Benzodia Scr (test Negative *NA*(03/30/15 code = U Benzodia Scr) 10:21 AM) [facility] [id number] 16:21:00 Test Item Value Reference Range Interpretation Comments U Hsi Scr (test code Negative *NA*(03/30/15 = U Shi Scr) 10:21 AM) [facility] [id number] 16:21:00 Test Item Value Reference Range Interpretation Comments U Opiate Scr (test Negative *NA*(03/30/15 code = U Opiate Scr) 10:21 AM) [facility] [id number] 16:21:00 Test Item Value Reference Range Interpretation Comments U Amph Scr (test code Negative *NA*(03/30/15 = U Amph Scr) 10:21 AM) [id number] 16:21:00 Test Item Value Reference Range Interpretation Comments PT (test code = PT) 11.9 s 12.0-14.7 [facility] HospitalUfwjnerFGUSPJWWSA0840-55-51 16:21:00 Test Item Value Reference Range Interpretation Comments INR (test code = INR) 0.85 0.85-1.17 [facility] HospitalLugkeerLPCYWMLKAB7911-99-56 16:21:00 Test Item Value Reference Range Interpretation Comments PTT (test code = PTT) 22.7 s 22.9-35.8 [facility] Hospit[id number] 16:21:00 Test Item Value Reference Range Interpretation Comments Valproic Acid Lvl (test code = Valproic 4 50-100 Acid Lvl) [facility] AND [id number] 16:21:00 Test Item Value Reference Range Interpretation Comments UA RBC (test None Seen See_Comment [Automated mes aisha] code = UA RBC) (03/30/15 10:21 The system which AM) generated this result transmitted ref erence range: <=2. The reference range was not used to int erpret this result as normal/abnormal . [facility] AND [id number] 16:21:00 Test Item Value Reference Range Interpretation Comments UA Sq Epi (test code = UA Sq Epi) Rare /LPF [facility] AND [id number] 16:21:00 Test Item Value Reference Range Interpretation Comments UA WBC (test code = UA WBC) 0-2 /HPF [facility] AND [id number] 16:21:00 Test Item Value Reference Range Interpretation Comments UA Blood (test code = Negative (03/30/15 10:21 UA Blood) AM) [facility] AND [id number] 16:21:00 Test Item Value Reference Range Interpretation Comments UA Leuk Est (test Negative (03/30/15 10:21 code = UA Leuk Est) AM) [facility] AND [id number] 16:21:00 Test Item Value Reference Range Interpretation Comments UA Urobilinogen (test code = UA 0.2 0.1-1.0 Urobilinogen) [facility] AND [id number] 16:21:00 Test Item Value Reference Range Interpretation Comments UA Bili (test code = Negative *NA*(03/30/15 UA Bili) 10:21 AM) [facility] AND [id number] 16:21:00 Test Item Value Reference Range Interpretation Comments UA Ketones (test code = UA Negative mg/dL Ketones) [facility] AND [id number] 16:21:00 Test Item Value Reference Range Interpretation Comments UA Glucose (test code = UA Negative mg/dL Glucose) [facility] AND [id number] 16:21:00 Test Item Value Reference Range Interpretation Comments UA Protein (test code = UA Negative mg/dL Protein) [facility] AND [id number] 16:21:00 Test Item Value Reference Range Interpretation Comments UA pH (test code = UA pH) 7.5 1 5.0-8.0 [facility] AND [id number] 16:21:00 Test Item Value Reference Range Interpretation Comments UA Spec Grav (test code = UA Spec 1.015 1 Grav) [facility] AND [id number] 16:21:00 Test Item Value Reference Range Interpretation Comments UA Color (test code = Yellow *NA*(03/30/15 UA Color) 10:21 AM) [facility] AND [id number] 16:21:00 Test Item Value Reference Range Interpretation Comments UA Turbidity (test code = Clear (03/30/15 UA Turbidity) 10:21 AM) [facility] AND [id number] 16:21:00 Test Item Value Reference Range Interpretation Comments UA Nitrite (test code Negative (03/30/15 = UA Nitrite) 10:21 AM) [facility] [id number] 09:44:00 Test Item Value Reference Range Interpretation Comments Phenytoin Total (test code = Phenytoin 14.4 10.0-20.0 Total) [facility] CampusWxppfapEJZFPTXUGL1073-71-30 09:44:00 Test Item Value Reference Range Interpretation Comments Phenytoin Free (test code = Phenytoin 1.31 1.00-2.00 Free) [facility]annCARD[facility]AC [id number] 09:00:00 Test Item Value Reference Range Interpretation Comments Total CK (test code = Total CK) 44 12-191 [facility]annCHEM [id number] 09:00:00 Test Item Value Reference Range Interpretation Comments Magnesium Lvl (test code = Magnesium 2.0 1.8-2.4 Lvl) [facility]annCHE[facility] [id number] 09:00:00 Test Item Value Reference Range Interpretation Comments Phosphorus (test code = Phosphorus) 2.7 2.5-4.5 [facility] [id number] 09:00:00 Test Item Value Reference Range Interpretation Comments Creatinine Lvl (test code = Creatinine 0.7 0.5-1.4 Lvl) [facility]2015-10-13 09:00:00 Test Item Value Reference Range Interpretation Comments Sodium Lvl (test code = Sodium Lvl) 142 135-145 [facility]2015-10-13 09:00:00 Test Item Value Reference Range Interpretation Comments Potassium Lvl (test code = Potassium 4.1 3.5-5.1 Lvl) [facility]2015-10-13 09:00:00 Test Item Value Reference Range Interpretation Comments Calcium Lvl (test code = Calcium Lvl) 8.2 8.5-10.5 [facility]2015-10-13 09:00:00 Test Item Value Reference Range Interpretation Comments Chloride Lvl (test code = Chloride Lvl) 108 95-109 [facility]2015-10-13 09:00:00 Test Item Value Reference Range Interpretation Comments Glucose Lvl (test code = Glucose Lvl) 103 70-99 [place] [id number] 09:00:00 Test Item Value Reference Range Interpretation Comments B/C Ratio (test code = B/C Ratio) 13 6-25 [place] 451535-10-13 09:00:00 Test Item Value Reference Range Interpretation Comments AGAP (test code = AGAP) 9.1 10.0-20.0 [place] [id number] 09:00:00 Test Item Value Reference Range Interpretation Comments BUN (test code = BUN) 9 7-22 [place] 451535-10-13 09:00:00 Test Item Value Reference Range Interpretation Comments CO2 (test code = CO2) 29 24-32 [place] 451535-10-13 09:00:00 Test Item Value Reference Range Interpretation Comments Total Protein (test code = Total 5.8 6.4-8.4 Protein) [facility]2015-10-13 09:00:00 Test Item Value Reference Range Interpretation Comments ALT (test code = ALT) 28 See_Comment [Auto mated message] The system which ge nerated this result transmit clarita reference range : <=65. The reference range was not used to interpr et this result as brendan l/abnormal. [facility]2015-10-13 09:00:00 Test Item Value Reference Range Interpretation Comments A/G Ratio (test code = A/G Ratio) 0.9 0.7-1.6 [place] 451535-10-13 09:00:00 Test Item Value Reference Range Interpretation Comments Albumin Lvl (test code = Albumin Lvl) 2.7 3.5-5.0 [place] 451535-10-13 09:00:00 Test Item Value Reference Range Interpretation Comments Globulin (test code = Globulin) 3.1 2.0-4.0 [facility]2015-10-13 09:00:00 Test Item Value Reference Range Interpretation Comments Bili Total (test code = Bili Total) 0.2 0.2-1.3 [place] 451535-10-13 09:00:00 Test Item Value Reference Range Interpretation Comments AST (test code = AST) 17 See_Comment [Auto mated message] The system which ge nerated this result transmit clarita reference range : <=37. The reference range was not used to interpr et this result as brendan l/abnormal. [facility]2015-10-13 09:00:00 Test Item Value Reference Range Interpretation Comments Alk Phos (test code = Alk Phos) 72 39-136 [facility]2015-10-13 09:00:00 Test Item Value Reference Range Interpretation Comments eGFR (test code = eGFR) 115 [id number] 09:00:00 Test Item Value Reference Range Interpretation Comments Eosinophils # (test code 0.3 See_Comment [A utomated message] The = Eosinophils #) system whic h generated this result tra nsmitted reference range : <=0.5. The reference r sumeet was not used to int erpret this result as normal/abnormal . [facility] DallasRpnnzblWZLLUHBXLX8759-23-23 09:00:00 Test Item Value Reference Range Interpretation Comments Macrocyte (test code = 1+ *ABN*(02/14/15 Macrocyte) 4:00 AM) [facility] [id number] 09:00:00 Test Item Value Reference Range Interpretation Comments Segs-Bands # (test code = Segs-Bands #) 5.2 1.5-8.1 [facility] DallasJxvbjlaGAUWTEZJWF9933-16-83 09:00:00 Test Item Value Reference Range Interpretation Comments Lymphocytes # (test code = Lymphocytes 2.2 1.0-5.5 #) [facility] DallasBybsezyAJMNEKJZAJ8765-52-15 09:00:00 Test Item Value Reference Range Interpretation Comments Monocytes # (test code 0.9 See_Comment [Aut omated message] The = Monocytes #) system which generated this result tra nsmitted reference range : <=0.8. The reference r sumeet was not used to int erpret this result as normal/abnormal . [facility] DallasSinihskIFWLNAGUXM9234-44-15 09:00:00 Test Item Value Reference Range Interpretation Comments Basophils (test code = 0.5 See_Comment [Aut omated message] The Basophils) system which ge nerated this result tra nsmitted reference range : <=1.0. The reference r sumeet was not used to int erpret this result as normal/abnormal . [facility] DallasCjcbtxrYMDWSWYJWR2264-86-68 09:00:00 Test Item Value Reference Range Interpretation Comments Eosinophils (test code = 3.7 See_Comment [A utomated message] The Eosinophils) system which ge nerated this result tra nsmitted reference range : <=4.0. The reference r sumeet was not used to int erpret this result as normal/abnormal . [facility] DallasPgjywzqTFKKHNXEZU2220-14-14 09:00:00 Test Item Value Reference Range Interpretation Comments Plt Morph (test code = Normal (02/14/15 4:00 Plt Morph) AM) [facility] DallasYsrxibqQSDOMFBPYM2887-66-65 09:00:00 Test Item Value Reference Range Interpretation Comments Segs (test code = Segs) 59.6 45.0-75.0 [facility] DallasDhhgegaDLMZJURCCC4334-89-88 09:00:00 Test Item Value Reference Range Interpretation Comments Lymphocytes (test code = Lymphocytes) 25.8 20.0-40.0 [facility] DallasZfykvafKSIQMQCDNO5530-50-58 09:00:00 Test Item Value Reference Range Interpretation Comments Monocytes (test code = Monocytes) 10.4 2.0-12.0 [facility] DallasIlaezujGGPGEPWDGV9172-06-56 09:00:00 Test Item Value Reference Range Interpretation Comments MPV (test code = MPV) 9.6 7.4-10.4 [facility] DallasMsnulwcSHAEJEAHSQ5429-61-34 09:00:00 Test Item Value Reference Range Interpretation Comments Platelet (test code = Platelet) 163 133-450 [facility] DallasMoirvuaDHIVWUYABJ5021-02-20 09:00:00 Test Item Value Reference Range Interpretation Comments RDW (test code = RDW) 13.7 11.5-14.5 [facility] DallasGnqijcnJESSAKQROS1307-03-70 09:00:00 Test Item Value Reference Range Interpretation Comments MCHC (test code = MCHC) 33.0 32.0-36.0 [facility] DallasZpmfsteDFYKUSHCQX7737-02-29 09:00:00 Test Item Value Reference Range Interpretation Comments MCH (test code = MCH) 31.8 pg 27.0-31.0 [facility] DallasMmxxlsdMFIGCFNWWG6983-51-39 09:00:00 Test Item Value Reference Range Interpretation Comments MCV (test code = MCV) 96.6 80.0-94.0 [facility] DallasEdinmiqXEULOMHWSR5474-39-79 09:00:00 Test Item Value Reference Range Interpretation Comments Hct (test code = Hct) 37.3 42.0-54.0 [facility] DallasGgjtohkLUQIFFNNNH5041-84-99 09:00:00 Test Item Value Reference Range Interpretation Comments Hgb (test code = Hgb) 12.3 14.0-18.0 [facility] DallasCwzmijoNIBRGXGEQJ3982-45-11 09:00:00 Test Item Value Reference Range Interpretation Comments RBC (test code = RBC) 3.87 4.70-6.10 [facility] DallasSpnueplZHYMGRCIVH1696-06-72 09:00:00 Test Item Value Reference Range Interpretation Comments WBC (test code = WBC) 8.7 3.7-10.4 [place] [id number] 09:00:00 Test Item Value Reference Range Interpretation Comments Valproic Acid Lvl (test code = Valproic 49 50-100 Acid Lvl) [place] [id number] 09:00:00 Test Item Value Reference Range Interpretation Comments Phenytoin Free (test code = Phenytoin 2.16 1.00-2.00 Free) [place] [id number] 09:00:00 Test Item Value Reference Range Interpretation Comments Phenytoin Total (test code = Phenytoin 16.6 10.0-20.0 Total) [facility]QUOCH5194[facility]43-02 15:22:00 Test Item Value Reference Range Interpretation Comments Phenytoin Free (test code = Phenytoin 0.22 1.00-2.00 Free) [facility]EbmegizIHXJWVJQAT9765-37-03 15:22:00 Test Item Value Reference Range Interpretation Comments Phenytoin Total (test code = Phenytoin 1.9 10.0-20.0 Total) [facility] AND [id number] 09:14:00 Test Item Value Reference Range Interpretation Comments UA Urobilinogen (test code = UA <=1.0 mg/dL 0.1-1.0 Urobilinogen) [facility] AND [id number] 09:14:00 Test Item Value Reference Range Interpretation Comments UA Glucose (test code = UA Glucose) 50mg/dl [facility] AND [id number] 09:14:00 Test Item Value Reference Range Interpretation Comments UA Ketones (test code = UA Ketones) Negative [facility] AND [id number] 09:14:00 Test Item Value Reference Range Interpretation Comments UA Mucus (test code = UA Mucus) Few /LPF [facility] AND [id number] 09:14:00 Test Item Value Reference Range Interpretation Comments UA Sq Epi (test code = UA Sq Epi) Few /LPF [facility] AND [id number] 09:14:00 Test Item Value Reference Range Interpretation Comments UA Leuk Est (test Negative (02/13/15 4:14 code = UA Leuk Est) AM) [facility] AND [id number] 09:14:00 Test Item Value Reference Range Interpretation Comments UA Nitrite (test code Negative (02/13/15 4:14 = UA Nitrite) AM) [facility] AND [id number] 09:14:00 Test Item Value Reference Range Interpretation Comments UA RBC (test code = no gt See_Comment [Automa clarita message] The UA RBC) system which ge nerated this result transmit clarita reference range : <=2. The reference range was not used to interpr et this result as brendan l/abnormal. [facility] AND [id number] 09:14:00 Test Item Value Reference Range Interpretation Comments UA WBC (test code = 1 See_Comment [Automa clarita message] The UA WBC) system which ge nerated this result transmit clarita reference range : <=5. The reference range was not used to interpr et this result as brendan l/abnormal. [facility] AND [id number] 09:14:00 Test Item Value Reference Range Interpretation Comments UA Blood (test code = Negative (02/13/15 4:14 UA Blood) AM) [facility] AND [id number] 09:14:00 Test Item Value Reference Range Interpretation Comments UA Bili (test code = Negative *NA*(02/13/15 UA Bili) 4:14 AM) [facility] AND [id number] 09:14:00 Test Item Value Reference Range Interpretation Comments UA Protein (test code = UA Negative mg/dL Protein) [facility] AND [id number] 09:14:00 Test Item Value Reference Range Interpretation Comments UA pH (test code = UA pH) 7.0 5.0-8.0 [facility] AND [id number] 09:14:00 Test Item Value Reference Range Interpretation Comments UA Spec Grav (test code = UA Spec Grav) 1.019 [facility] AND [id number] 09:14:00 Test Item Value Reference Range Interpretation Comments UA Turbidity (test code = Clear (02/13/15 4:14 UA Turbidity) AM) [facility] AND [id number] 09:14:00 Test Item Value Reference Range Interpretation Comments UA Color (test code = Light Yellow UA Color) *NA*(02/13/15 4:14 AM) [facility]2015-10-12 08:37:00 Test Item Value Reference Range Interpretation Comments Phosphorus (test code = Phosphorus) 2.1 2.5-4.5 [facility]Be[facility] [id number] 08:37:00 Test Item Value Reference Range Interpretation Comments Magnesium Lvl (test code = Magnesium 1.8 1.8-2.4 Lvl) [facility]2015-10-12 08:37:00 Test Item Value Reference Range Interpretation Comments eGFR (test code = eGFR) 109 [facility]2015-10-12 08:37:00 Test Item Value Reference Range Interpretation Comments Sodium Lvl (test code = Sodium Lvl) 140 135-145 [facility]2015-10-12 08:37:00 Test Item Value Reference Range Interpretation Comments Potassium Lvl (test code = Potassium 3.9 3.5-5.1 Lvl) [facility]2015-10-12 08:37:00 Test Item Value Reference Range Interpretation Comments Creatinine Lvl (test code = Creatinine 0.8 0.5-1.4 Lvl) [facility]2015-10-12 08:37:00 Test Item Value Reference Range Interpretation Comments BUN (test code = BUN) 14 7-22 [place] 451535-10-12 08:37:00 Test Item Value Reference Range Interpretation Comments Chloride Lvl (test code = Chloride Lvl) 105 95-109 [facility]2015-10-12 08:37:00 Test Item Value Reference Range Interpretation Comments ALT (test code = ALT) 35 See_Comment [Auto mated message] The system which ge nerated this result transmit clarita reference range : <=65. The reference range was not used to interpr et this result as brendan l/abnormal. [facility]2015-10-12 08:37:00 Test Item Value Reference Range Interpretation Comments Total Protein (test code = Total 5.8 6.4-8.4 Protein) [facility]2015-10-12 08:37:00 Test Item Value Reference Range Interpretation Comments Alk Phos (test code = Alk Phos) 76 39-136 [facility]2015-10-12 08:37:00 Test Item Value Reference Range Interpretation Comments Glucose Lvl (test code = Glucose Lvl) 94 70-99 [facility]2015-10-12 08:37:00 Test Item Value Reference Range Interpretation Comments AST (test code = AST) 23 See_Comment [Auto mated message] The system which ge nerated this result transmit clarita reference range : <=37. The reference range was not used to interpr et this result as brendan l/abnormal. [place] 451535-10-12 08:37:00 Test Item Value Reference Range Interpretation Comments Bili Total (test code = Bili Total) 1.0 0.2-1.3 [place] 451535-10-12 08:37:00 Test Item Value Reference Range Interpretation Comments Albumin Lvl (test code = Albumin Lvl) 3.0 3.5-5.0 [facility]2015-10-12 08:37:00 Test Item Value Reference Range Interpretation Comments Calcium Lvl (test code = Calcium Lvl) 8.3 8.5-10.5 [facility]2015-10-12 08:37:00 Test Item Value Reference Range Interpretation Comments CO2 (test code = CO2) 27 24-32 [facility]2015-10-12 08:37:00 Test Item Value Reference Range Interpretation Comments B/C Ratio (test code = B/C Ratio) 18 6-25 [facility]2015-10-12 08:37:00 Test Item Value Reference Range Interpretation Comments Globulin (test code = Globulin) 2.8 2.0-4.0 [facility]2015-10-12 08:37:00 Test Item Value Reference Range Interpretation Comments A/G Ratio (test code = A/G Ratio) 1.1 0.7-1.6 [facility]2015-10-12 08:37:00 Test Item Value Reference Range Interpretation Comments AGAP (test code = AGAP) 11.9 10.0-20.0 [facility] DallasQcrppjnYSKJPACOGH9314-85-36 08:37:00 Test Item Value Reference Range Interpretation Comments MPV (test code = MPV) 9.1 7.4-10.4 [facility] DallasYaapbqaOPWKBNTJNV7253-42-87 08:37:00 Test Item Value Reference Range Interpretation Comments Platelet (test code = Platelet) 164 133-450 [facility] DallasGhfsodjSKXKSYITTR7730-57-32 08:37:00 Test Item Value Reference Range Interpretation Comments MCHC (test code = MCHC) 33.5 32.0-36.0 [facility] DallasKlpspwuLKMKDJQONT4070-14-19 08:37:00 Test Item Value Reference Range Interpretation Comments RDW (test code = RDW) 13.6 11.5-14.5 [facility] DallasXrbvvscSIVIHOUCSR5263-71-83 08:37:00 Test Item Value Reference Range Interpretation Comments Hct (test code = Hct) 38.4 42.0-54.0 [facility] DallasVtgtarnJXEKJJTVQY7620-01-21 08:37:00 Test Item Value Reference Range Interpretation Comments MCV (test code = MCV) 95.6 80.0-94.0 [facility] DallasEqifsgbAUCAAJLFAZ5234-52-33 08:37:00 Test Item Value Reference Range Interpretation Comments RBC (test code = RBC) 4.01 4.70-6.10 [facility] DallasGffbqfpEBCAXZYRVD3734-42-29 08:37:00 Test Item Value Reference Range Interpretation Comments Hgb (test code = Hgb) 12.8 14.0-18.0 [facility] DallasCjfdndfZSSLLLKHYE5238-52-14 08:37:00 Test Item Value Reference Range Interpretation Comments MCH (test code = MCH) 32.0 pg 27.0-31.0 [facility] DallasKpmaemvZGTKZQPEMX2504-95-87 08:37:00 Test Item Value Reference Range Interpretation Comments WBC (test code = WBC) 15.6 3.7-10.4 [facility] DallasDanausaJIQCYOYTVK3707-05-11 08:37:00 Test Item Value Reference Range Interpretation Comments Segs-Bands # (test code = Segs-Bands #) 12.2 1.5-8.1 [facility] DallasRqdiuedOWRPESORYY3633-06-59 08:37:00 Test Item Value Reference Range Interpretation Comments Lymphocytes # (test code = Lymphocytes 1.7 1.0-5.5 #) [facility] DallasZscopkwZJQVROCGVR4553-95-73 08:37:00 Test Item Value Reference Range Interpretation Comments Macrocyte (test code = 1+ *ABN*(02/13/15 Macrocyte) 3:37 AM) [facility] DallasUugccoqWUBORAHTSV6855-23-00 08:37:00 Test Item Value Reference Range Interpretation Comments Monocytes # (test code 1.5 See_Comment [Aut omated message] The = Monocytes #) system which generated this result tra nsmitted reference range : <=0.8. The reference r sumeet was not used to int erpret this result as normal/abnormal . [facility] DallasYfaigyoODAFAZYNFA5791-92-94 08:37:00 Test Item Value Reference Range Interpretation Comments Eosinophils # (test code 0.2 See_Comment [A utomated message] The = Eosinophils #) system whic h generated this result tra nsmitted reference range : <=0.5. The reference r sumeet was not used to int erpret this result as normal/abnormal . [facility] DallasZdmvcgcQCAOHCJVOW2057-05-58 08:37:00 Test Item Value Reference Range Interpretation Comments Lymphocytes (test code = Lymphocytes) 11.1 20.0-40.0 [facility] DallasIgrwuifPNZLPKCFFO9842-62-56 08:37:00 Test Item Value Reference Range Interpretation Comments Monocytes (test code = Monocytes) 9.4 2.0-12.0 [facility] DallasXxvvfbyISPMYJIUXV2612-51-00 08:37:00 Test Item Value Reference Range Interpretation Comments Segs (test code = Segs) 78.1 45.0-75.0 [facility] DallasOqfvqtoLWYQSFRDNU9725-05-22 08:37:00 Test Item Value Reference Range Interpretation Comments Basophils (test code = 0.3 See_Comment [Aut omated message] The Basophils) system which ge nerated this result tra nsmitted reference range : <=1.0. The reference r sumeet was not used to int erpret this result as normal/abnormal . [facility] DallasUpquhosJSKGGQDQVY5849-85-42 08:37:00 Test Item Value Reference Range Interpretation Comments Eosinophils (test code = 1.1 See_Comment [A utomated message] The Eosinophils) system which ge nerated this result tra nsmitted reference range : <=4.0. The reference r sumeet was not used to int erpret this result as normal/abnormal . [place] [id number] 04:15:00 Test Item Value Reference Range Interpretation Comments Valproic Acid Lvl (test code = Valproic 11 50-100 Acid Lvl) [place] [id number] 14:26:00 Test Item Value Reference Range Interpretation Comments Valproic Acid Lvl (test code = Valproic 27 50-100 Acid Lvl) [facility] [id number] 07:28:00 Test Item Value Reference Range Interpretation Comments Magnesium Lvl (test code = Magnesium 1.7 1.8-2.4 Lvl) [facility] [id number] 07:28:00 Test Item Value Reference Range Interpretation Comments Phosphorus (test code = Phosphorus) 2.3 2.5-4.5 [facility]rdrnxaZSBITRKLNUXW6774-79-07 07:28:00 Test Item Value Reference Range Interpretation Comments AGAP (test code = AGAP) 11.5 10.0-20.0 [facility]AsltfmsMGAZDOCHDQGJ2330-36-25 07:28:00 Test Item Value Reference Range Interpretation Comments eGFR (test code = eGFR) 115 [facility]awVladeaaWRRQZNRISJCZ5037-57-64 07:28:00 Test Item Value Reference Range Interpretation Comments Glucose Lvl (test code = Glucose Lvl) 78 70-99 [facility]awTakoiuhBRBZIFMCQVGG8714-91-36 07:28:00 Test Item Value Reference Range Interpretation Comments BUN (test code = BUN) 11 7-22 [facility]awIeldtuyNRWYKHZOOVDF6180-66-96 07:28:00 Test Item Value Reference Range Interpretation Comments Calcium Lvl (test code = Calcium Lvl) 8.4 8.5-10.5 [facility]awDwiffegKPBXANNGBSEL1766-62-51 07:28:00 Test Item Value Reference Range Interpretation Comments Chloride Lvl (test code = Chloride Lvl) 110 95-109 [facility]awRqaidyeGMPEXSRPKQYP1372-96-46 07:28:00 Test Item Value Reference Range Interpretation Comments CO2 (test code = CO2) 26 24-32 [facility]awFxtomtxHVFVYDNOGLJZ0104-83-94 07:28:00 Test Item Value Reference Range Interpretation Comments Creatinine Lvl (test code = Creatinine 0.7 0.5-1.4 Lvl) [facility]awCnzzbuyXIUXGNXXODGH4408-66-18 07:28:00 Test Item Value Reference Range Interpretation Comments Sodium Lvl (test code = Sodium Lvl) 143 135-145 [facility]awJibyhwpUNMIHBAIQUTV7452-49-40 07:28:00 Test Item Value Reference Range Interpretation Comments Potassium Lvl (test code = Potassium 4.5 3.5-5.1 Lvl) [facility] DallasYrjbenzAUCEWARTOW2700-18-91 07:28:00 Test Item Value Reference Range Interpretation Comments Lymphocytes # (test code = Lymphocytes 2.5 1.0-5.5 #) [facility] DallasXdsqtwlEJESAIKOAH6168-37-27 07:28:00 Test Item Value Reference Range Interpretation Comments Basophils # (test code 0.1 See_Comment [Aut omated message] The = Basophils #) system which generated this result tra nsmitted reference range : <=0.2. The reference r sumeet was not used to int erpret this result as normal/abnormal . [facility] DallasNfipgqrZBNFPECOHF3114-02-31 07:28:00 Test Item Value Reference Range Interpretation Comments Eosinophils # (test code 0.3 See_Comment [A utomated message] The = Eosinophils #) system whic h generated this result tra nsmitted reference range : <=0.5. The reference r sumeet was not used to int erpret this result as normal/abnormal . [facility] DallasDlkrpbaWZNINSJHBI8528-07-50 07:28:00 Test Item Value Reference Range Interpretation Comments Monocytes # (test code 0.6 See_Comment [Aut omated message] The = Monocytes #) system which generated this result tra nsmitted reference range : <=0.8. The reference r sumeet was not used to int erpret this result as normal/abnormal . [facility] DallasMrqzsyxRCFMCSJLZE8059-47-10 07:28:00 Test Item Value Reference Range Interpretation Comments Monocytes (test code = Monocytes) 9.0 2.0-12.0 [facility] DallasLeztufxAISFGDWWOI5701-87-13 07:28:00 Test Item Value Reference Range Interpretation Comments Basophils (test code = 1.0 See_Comment [Aut omated message] The Basophils) system which ge nerated this result tra nsmitted reference range : <=1.0. The reference r sumeet was not used to int erpret this result as normal/abnormal . [facility] DallasRgrhrbwJQARZKIXRF5639-94-16 07:28:00 Test Item Value Reference Range Interpretation Comments Segs-Bands # (test code = Segs-Bands #) 2.7 1.5-8.1 [facility] DallasZtsbtyzVVRXDKQZWN0233-16-23 07:28:00 Test Item Value Reference Range Interpretation Comments Eosinophils (test code = 5.0 See_Comment [A utomated message] The Eosinophils) system which ge nerated this result tra nsmitted reference range : <=4.0. The reference r sumeet was not used to int erpret this result as normal/abnormal . [facility] DallasDhbnkoaCVFVXHNIVR5815-66-05 07:28:00 Test Item Value Reference Range Interpretation Comments Segs (test code = Segs) 44.3 45.0-75.0 [facility] DallasCatvhbcKBYDCPBKYW4273-10-21 07:28:00 Test Item Value Reference Range Interpretation Comments Lymphocytes (test code = Lymphocytes) 40.7 20.0-40.0 [facility] DallasWofyshpTNMBRVYWYF2384-60-17 07:28:00 Test Item Value Reference Range Interpretation Comments Hct (test code = Hct) 39.9 42.0-54.0 [facility] DallasYoaeldyEOEZIXWPJO5775-05-52 07:28:00 Test Item Value Reference Range Interpretation Comments Hgb (test code = Hgb) 13.2 14.0-18.0 [facility] DallasMexiusvWRTNCWKXFY8002-92-12 07:28:00 Test Item Value Reference Range Interpretation Comments RBC (test code = RBC) 4.17 4.70-6.10 [facility] DallasXnskhtvLSWVDQVXUJ6072-78-04 07:28:00 Test Item Value Reference Range Interpretation Comments WBC (test code = WBC) 6.1 3.7-10.4 [facility] DallasHsdbapmCBKZLIOWIT1555-74-92 07:28:00 Test Item Value Reference Range Interpretation Comments MCHC (test code = MCHC) 32.9 32.0-36.0 [facility] DallasNoveirxNWFPQWKODC6279-40-25 07:28:00 Test Item Value Reference Range Interpretation Comments RDW (test code = RDW) 13.2 11.5-14.5 [facility] DallasXfkchfxOCQPUMRHSW7692-37-71 07:28:00 Test Item Value Reference Range Interpretation Comments MCH (test code = MCH) 31.6 pg 27.0-31.0 [facility] DallasXrbesekEIHMAWJCGZ0787-11-10 07:28:00 Test Item Value Reference Range Interpretation Comments MCV (test code = MCV) 95.9 80.0-94.0 [facility] DallasKudyqmvUYCIHPZGDR5610-62-95 07:28:00 Test Item Value Reference Range Interpretation Comments Platelet (test code = Platelet) 170 133-450 [facility] DallasZqdnviuPEQIXFAZQQ4731-78-15 07:28:00 Test Item Value Reference Range Interpretation Comments MPV (test code = MPV) 10.0 7.4-10.4 [facility]2015-08-11 08:08:00 Test Item Value Reference Range Interpretation Comments eGFR (test code = eGFR) 104 [facility]2015-08-11 08:08:00 Test Item Value Reference Range Interpretation Comments Calcium Lvl (test code = Calcium Lvl) 8.0 8.5-10.5 [facility]2015-08-11 08:08:00 Test Item Value Reference Range Interpretation Comments CO2 (test code = CO2) 26 24-32 [facility]2015-08-11 08:08:00 Test Item Value Reference Range Interpretation Comments Chloride Lvl (test code = Chloride Lvl) 110 95-109 [place] 451535-08-11 08:08:00 Test Item Value Reference Range Interpretation Comments Potassium Lvl (test code = Potassium 4.1 3.5-5.1 Lvl) [facility]2015-08-11 08:08:00 Test Item Value Reference Range Interpretation Comments Sodium Lvl (test code = Sodium Lvl) 143 135-145 [place] 451535-08-11 08:08:00 Test Item Value Reference Range Interpretation Comments Glucose Lvl (test code = Glucose Lvl) 86 70-99 [place] 451535-08-11 08:08:00 Test Item Value Reference Range Interpretation Comments BUN (test code = BUN) 16 7-22 [facility]2015-08-11 08:08:00 Test Item Value Reference Range Interpretation Comments Creatinine Lvl (test code = Creatinine 0.9 0.5-1.4 Lvl) [facility]2015-08-11 08:08:00 Test Item Value Reference Range Interpretation Comments AGAP (test code = AGAP) 11.1 10.0-20.0 [facility]2015-08-11 08:08:00 Test Item Value Reference Range Interpretation Comments Phosphorus (test code = Phosphorus) 2.9 2.5-4.5 [facility]2015-08-11 08:08:00 Test Item Value Reference Range Interpretation Comments Magnesium Lvl (test code = Magnesium 1.9 1.8-2.4 Lvl) [facility] DallasVvllwcyPJUJWIWKJH8107-30-14 08:08:00 Test Item Value Reference Range Interpretation Comments Segs (test code = Segs) 50.9 45.0-75.0 [facility] DallasEjueiryTBLBJUJKAO0508-77-82 08:08:00 Test Item Value Reference Range Interpretation Comments Lymphocytes (test code = Lymphocytes) 34.7 20.0-40.0 [facility] DallasFwkaqxpSFMDKLDQNG3916-80-92 08:08:00 Test Item Value Reference Range Interpretation Comments Eosinophils (test code = 4.8 See_Comment [A utomated message] The Eosinophils) system which ge nerated this result tra nsmitted reference range : <=4.0. The reference r sumeet was not used to int erpret this result as normal/abnormal . [facility] DallasBgmtjjkEMCQXAZQZI8922-94-79 08:08:00 Test Item Value Reference Range Interpretation Comments Segs-Bands # (test code = Segs-Bands #) 3.4 1.5-8.1 [facility] DallasCyjiguiDKMDACNBGB6877-50-95 08:08:00 Test Item Value Reference Range Interpretation Comments Monocytes (test code = Monocytes) 8.7 2.0-12.0 [facility] DallasVmaphalFOXPKQYMYE7903-96-47 08:08:00 Test Item Value Reference Range Interpretation Comments Basophils (test code = 0.9 See_Comment [Aut omated message] The Basophils) system which ge nerated this result tra nsmitted reference range : <=1.0. The reference r sumeet was not used to int erpret this result as normal/abnormal . [facility] DallasOkhwtgzBMDNMGFGFK6211-38-02 08:08:00 Test Item Value Reference Range Interpretation Comments Lymphocytes # (test code = Lymphocytes 2.3 1.0-5.5 #) [facility] DallasMgczzikFOWJHNWKZG7236-81-44 08:08:00 Test Item Value Reference Range Interpretation Comments Eosinophils # (test code 0.3 See_Comment [A utomated message] The = Eosinophils #) system whic h generated this result tra nsmitted reference range : <=0.5. The reference r sumeet was not used to int erpret this result as normal/abnormal . [facility] DallasImwnkghRTNFWDORGD3258-52-05 08:08:00 Test Item Value Reference Range Interpretation Comments Monocytes # (test code 0.6 See_Comment [Aut omated message] The = Monocytes #) system which generated this result tra nsmitted reference range : <=0.8. The reference r sumeet was not used to int erpret this result as normal/abnormal . [facility] DallasJopgcbpXSNRWYILHX0971-67-05 08:08:00 Test Item Value Reference Range Interpretation Comments Basophils # (test code 0.1 See_Comment [Aut omated message] The = Basophils #) system which generated this result tra nsmitted reference range : <=0.2. The reference r sumeet was not used to int erpret this result as normal/abnormal . [facility] DallasTcxajztFXOVNEQJVW6832-50-84 08:08:00 Test Item Value Reference Range Interpretation Comments WBC (test code = WBC) 6.7 3.7-10.4 [facility] DallasRhhjabqTSNKWMKVDW3633-29-24 08:08:00 Test Item Value Reference Range Interpretation Comments RBC (test code = RBC) 4.01 4.70-6.10 [facility]DjcedvkPUYVKDCGHO2630-42-12 08:08:00 Test Item Value Reference Range Interpretation Comments Hgb (test code = Hgb) 12.7 14.0-18.0 [facility] CampusNlhtomlBRQXDWOKGN2199-83-45 08:08:00 Test Item Value Reference Range Interpretation Comments Hct (test code = Hct) 38.4 42.0-54.0 [facility] CampusKrduxenICIAMAMYGU4371-37-37 08:08:00 Test Item Value Reference Range Interpretation Comments MCV (test code = MCV) 96.0 80.0-94.0 [facility] CampusMaohrsvIACUGYAYFL7362-91-97 08:08:00 Test Item Value Reference Range Interpretation Comments MCH (test code = MCH) 31.8 pg 27.0-31.0 [facility] CampusEpjkjnuKBOCSPMJUK8301-46-94 08:08:00 Test Item Value Reference Range Interpretation Comments MCHC (test code = MCHC) 33.2 32.0-36.0 [facility]PtuywvoMKXTZQQLHY0901-03-07 08:08:00 Test Item Value Reference Range Interpretation Comments RDW (test code = RDW) 12.8 11.5-14.5 [facility] CampusVscxjhgZYXKYLKOCT2134-78-96 08:08:00 Test Item Value Reference Range Interpretation Comments MPV (test code = MPV) 9.7 7.4-10.4 [facility] CampusClhmawpXGHJETYOEX2476-71-26 08:08:00 Test Item Value Reference Range Interpretation Comments Platelet (test code = Platelet) 157 133-450 [facility] CampusannPARATHYROID QFAPLQO7768-34-68 08:08:00 Test Item Value Reference Range Interpretation Comments Ca Norm WB (test code = Ca Norm WB) 1.08 1.05-1.25 [facility] CampusannPARATHYROID ULPJUEQ5456-58-21 08:08:00 Test Item Value Reference Range Interpretation Comments Ca Ion WB (test code = Ca Ion WB) 1.12 1.05-1.25 [facility] CampusRvkimkmHAOCOZORCV9652-72-40 22:07:00 Test Item Value Reference Range Interpretation Comments HIV 1/2 Ab (test code Negative *NA*(12/12/14 = HIV 1/2 Ab) 5:07 PM) [facility] [id number] 15:14:00 Test Item Value Reference Range Interpretation Comments MRSA by PCR (test Negative (12/12/14 10:14 code = MRSA by PCR) AM) [facility] [id number] 15:14:00 Test Item Value Reference Range Interpretation Comments U Methadone Scr (test Negative *NA*(12/12/14 code = U Methadone Scr) 10:14 AM) [facility] [id number] 15:14:00 Test Item Value Reference Range Interpretation Comments U Propoxyph Scr (test Negative *NA*(12/12/14 code = U Propoxyph Scr) 10:14 AM) [facility] [id number] 15:14:00 Test Item Value Reference Range Interpretation Comments UDS Note (test code = See Note (12/12/14 10:14 UDS Note) AM) [facility] [id number] 15:14:00 Test Item Value Reference Range Interpretation Comments U Phencyc Scr (test Negative *NA*(12/12/14 code = U Phencyc Scr) 10:14 AM) [facility] [id number] 15:14:00 Test Item Value Reference Range Interpretation Comments U Cannab Scr (test Negative *NA*(12/12/14 code = U Cannab Scr) 10:14 AM) [facility] [id number] 15:14:00 Test Item Value Reference Range Interpretation Comments U Opiate Scr (test Positive *ABN*(12/12/14 code = U Opiate Scr) 10:14 AM) [facility] [id number] 15:14:00 Test Item Value Reference Range Interpretation Comments U Cocaine Scr (test Positive *ABN*(12/12/14 code = U Cocaine Scr) 10:14 AM) [facility] [id number] 15:14:00 Test Item Value Reference Range Interpretation Comments U Shi Scr (test code Negative *NA*(12/12/14 = U Shi Scr) 10:14 AM) [facility] [id number] 15:14:00 Test Item Value Reference Range Interpretation Comments U Benzodia Scr (test Positive *ABN*(12/12/14 code = U Benzodia Scr) 10:14 AM) [facility] [id number] 15:14:00 Test Item Value Reference Range Interpretation Comments U Amph Scr (test code Positive *ABN*(12/12/14 = U Amph Scr) 10:14 AM) [facility] [id number] 15:14:00 Test Item Value Reference Range Interpretation Comments UA Urobilinogen (test code = UA <=1.0 mg/dL 0.1-1.0 Urobilinogen) [facility] [id number] 15:14:00 Test Item Value Reference Range Interpretation Comments UA Ketones (test code = UA Ketones) TR [facility] [id number] 15:14:00 Test Item Value Reference Range Interpretation Comments UA Mucus (test code = UA Mucus) Few /LPF [facility] [id number] 15:14:00 Test Item Value Reference Range Interpretation Comments UA RBC (test code = 1 See_Comment [Automa clarita message] The UA RBC) system which ge nerated this result transmit clarita reference range : <=2. The reference range was not used to interpr et this result as brendan l/abnormal. [facility] [id number] 15:14:00 Test Item Value Reference Range Interpretation Comments UA WBC (test code = 17 See_Comment [Automa clarita message] The UA WBC) system which ge nerated this result transmit clarita reference range : <=5. The reference range was not used to interpr et this result as brendan l/abnormal. [facility] [id number] 15:14:00 Test Item Value Reference Range Interpretation Comments UA Sq Epi (test code = UA Sq Occasional /LPF Epi) [facility] [id number] 15:14:00 Test Item Value Reference Range Interpretation Comments UA Glucose (test code = UA Negative mg/dL Glucose) [facility] [id number] 15:14:00 Test Item Value Reference Range Interpretation Comments UA Protein (test code = UA Protein) 20 mg/dL [facility] [id number] 15:14:00 Test Item Value Reference Range Interpretation Comments UA Leuk Est (test code Small *ABN*(12/12/14 = UA Leuk Est) 10:14 AM) [facility] [id number] 15:14:00 Test Item Value Reference Range Interpretation Comments UA Nitrite (test code Negative (12/12/14 10:14 = UA Nitrite) AM) [facility] [id number] 15:14:00 Test Item Value Reference Range Interpretation Comments UA Blood (test code = Negative (12/12/14 10:14 UA Blood) AM) [facility] [id number] 15:14:00 Test Item Value Reference Range Interpretation Comments UA Bili (test code = Negative *NA*(12/12/14 UA Bili) 10:14 AM) [facility] [id number] 15:14:00 Test Item Value Reference Range Interpretation Comments UA Turbidity (test code = Clear (12/12/14 10:14 UA Turbidity) AM) [facility] [id number] 15:14:00 Test Item Value Reference Range Interpretation Comments UA Color (test code = Yellow *NA*(12/12/14 UA Color) 10:14 AM) [facility] [id number] 15:14:00 Test Item Value Reference Range Interpretation Comments UA pH (test code = UA pH) 7.0 5.0-8.0 [facility] [id number] 15:14:00 Test Item Value Reference Range Interpretation Comments UA Spec Grav (test code = UA Spec Grav) 1.023 [facility] [id number] 13:09:00 Test Item Value Reference Range Interpretation Comments Total CK (test code = Total CK) 106 12-191 [facility] [id number] 13:09:00 Test Item Value Reference Range Interpretation Comments CK MB Index (test 1.5 See_Comment [Automate d message] The code = CK MB Index) system w [facility] generated this result transmit clarita reference range : <=2.5. The reference range was not used to interpr et this result as brendan l/abnormal. [facility] [id number] 13:09:00 Test Item Value Reference Range Interpretation Comments CK MB (test code = CK MB) 1.6 0.5-3.6 [facility]annCHE[facility] [id number] 13:09:00 Test Item Value Reference Range Interpretation Comments Phosphorus (test code = Phosphorus) 2.3 2.5-4.5 [facility]2015-08-10 13:09:00 Test Item Value Reference Range Interpretation Comments Bili Direct (test code 0.1 See_Comment [Aut omated message] The = Bili Direct) system which generated this result tra nsmitted reference range : <=0.3. The reference r sumeet was not used to int erpret this result as brendan l/abnormal. [facility]2015-08-10 13:09:00 Test Item Value Reference Range Interpretation Comments AST (test code = AST) 21 See_Comment [Auto mated message] The system which ge nerated this result transmit clarita reference range : <=37. The reference range was not used to interpr et this result as brendan l/abnormal. [facility]2015-08-10 13:09:00 Test Item Value Reference Range Interpretation Comments ALT (test code = ALT) 27 See_Comment [Auto mated message] The system which ge nerated this result transmit clarita reference range : <=65. The reference range was not used to interpr et this result as brendan l/abnormal. [facility]2015-08-10 13:09:00 Test Item Value Reference Range Interpretation Comments Total Protein (test code = Total 6.0 6.4-8.4 Protein) [facility]2015-08-10 13:09:00 Test Item Value Reference Range Interpretation Comments Globulin (test code = Globulin) 2.9 2.0-4.0 [place] [id number] 13:09:00 Test Item Value Reference Range Interpretation Comments Albumin Lvl (test code = Albumin Lvl) 3.1 3.5-5.0 [facility]2015-08-10 13:09:00 Test Item Value Reference Range Interpretation Comments A/G Ratio (test code = A/G Ratio) 1.1 0.7-1.6 [facility]2015-08-10 13:09:00 Test Item Value Reference Range Interpretation Comments Alk Phos (test code = Alk Phos) 64 39-136 [facility]2015-08-10 13:09:00 Test Item Value Reference Range Interpretation Comments Bili Indirect (test 0.1 See_Comment [Automa clarita message] The code = Bili Indirect) system which generated this result tra nsmitted reference range : <=1.0. The reference r sumeet was not used to int erpret this result as normal/abnormal . [facility]2015-08-10 13:09:00 Test Item Value Reference Range Interpretation Comments Bili Total (test code = Bili Total) 0.2 0.2-1.3 [facility]2015-08-10 13:09:00 Test Item Value Reference Range Interpretation Comments Magnesium Lvl (test code = Magnesium 2.1 1.8-2.4 Lvl) [facility]2015-08-10 13:09:00 Test Item Value Reference Range Interpretation Comments eGFR (test code = eGFR) 104 [facility]2015-08-10 13:09:00 Test Item Value Reference Range Interpretation Comments Chloride Lvl (test code = Chloride Lvl) 109 95-109 [facility] [facility] 13:09:00 Test Item Value Reference Range Interpretation Comments Calcium Lvl (test code = Calcium Lvl) 8.1 8.5-10.5 [facility]2015-08-10 13:09:00 Test Item Value Reference Range Interpretation Comments CO2 (test code = CO2) 26 24-32 [facility]2015-08-10 13:09:00 Test Item Value Reference Range Interpretation Comments Sodium Lvl (test code = Sodium Lvl) 141 135-145 [facility]2015-08-10 13:09:00 Test Item Value Reference Range Interpretation Comments Potassium Lvl (test code = Potassium 3.9 3.5-5.1 Lvl) [facility]2015-08-10 13:09:00 Test Item Value Reference Range Interpretation Comments Creatinine Lvl (test code = Creatinine 0.9 0.5-1.4 Lvl) [facility]2015-08-10 13:09:00 Test Item Value Reference Range Interpretation Comments BUN (test code = BUN) 15 7-22 [facility]2015-08-10 13:09:00 Test Item Value Reference Range Interpretation Comments Glucose Lvl (test code = Glucose Lvl) 88 70-99 [facility]2015-08-10 13:09:00 Test Item Value Reference Range Interpretation Comments AGAP (test code = AGAP) 9.9 10.0-20.0 [facility]FsnxxzpXEWVKJIUPQ4666-39-27 13:09:00 Test Item Value Reference Range Interpretation Comments INR (test code = INR) 0.98 0.85-1.17 [facility] DallasRwrwrlvZSODFGRJAS2603-75-71 13:09:00 Test Item Value Reference Range Interpretation Comments PT (test code = PT) 13.0 s 12.0-14.7 [facility] DallasCnwnmnrWHWLIFJYAK2910-03-54 13:09:00 Test Item Value Reference Range Interpretation Comments PTT (test code = PTT) 28.4 s 22.9-35.8 [facility] DallasFuwdrsaEWRCRZBTIZ5581-36-20 13:09:00 Test Item Value Reference Range Interpretation Comments MCHC (test code = MCHC) 33.1 32.0-36.0 [facility] DallasTafivopGTDEUOZBLD3150-60-99 13:09:00 Test Item Value Reference Range Interpretation Comments RDW (test code = RDW) 13.0 11.5-14.5 [facility] DallasGkpqhpuJXLYPCBLDJ7961-02-78 13:09:00 Test Item Value Reference Range Interpretation Comments MPV (test code = MPV) 9.0 7.4-10.4 [facility] DallasFgfyjasMQLJBAZHHJ3401-81-22 13:09:00 Test Item Value Reference Range Interpretation Comments Platelet (test code = Platelet) 161 133-450 [facility] DallasMzmjqmyTHVOREXPUH8781-53-11 13:09:00 Test Item Value Reference Range Interpretation Comments Hgb (test code = Hgb) 12.5 14.0-18.0 [facility] DallasBwhffoyDVJYRVSJYE1824-26-59 13:09:00 Test Item Value Reference Range Interpretation Comments MCH (test code = MCH) 32.1 pg 27.0-31.0 [facility] DallasBmzosvwRHTPXHLGKL8456-37-24 13:09:00 Test Item Value Reference Range Interpretation Comments MCV (test code = MCV) 96.7 80.0-94.0 [facility] DallasGtomcluQUKIFLNSYF8825-11-18 13:09:00 Test Item Value Reference Range Interpretation Comments Hct (test code = Hct) 37.8 42.0-54.0 [facility] DallasBolrbyaCXRBLCSCYC7611-71-27 13:09:00 Test Item Value Reference Range Interpretation Comments WBC (test code = WBC) 8.9 3.7-10.4 [facility] DallasUndotngFCEEOTEDQM1761-64-65 13:09:00 Test Item Value Reference Range Interpretation Comments RBC (test code = RBC) 3.91 4.70-6.10 [facility] DallasZjrzstvSJYKKNZIES7775-63-17 13:09:00 Test Item Value Reference Range Interpretation Comments Basophils (test code = 0.5 See_Comment [Aut omated message] The Basophils) system which ge nerated this result tra nsmitted reference range : <=1.0. The reference r sumeet was not used to int erpret this result as normal/abnormal . [facility] DallasMxdvyloGEIUBATTHK0780-86-65 13:09:00 Test Item Value Reference Range Interpretation Comments Segs-Bands # (test code = Segs-Bands #) 5.2 1.5-8.1 [facility] DallasFmjxappNFVUHQIHGV4023-21-31 13:09:00 Test Item Value Reference Range Interpretation Comments Lymphocytes # (test code = Lymphocytes 2.5 1.0-5.5 #) [facility] DallasFmvdzjeGXERKLDOEK3093-28-14 13:09:00 Test Item Value Reference Range Interpretation Comments Eosinophils (test code = 3.8 See_Comment [A utomated message] The Eosinophils) system which ge nerated this result tra nsmitted reference range : <=4.0. The reference r sumeet was not used to int erpret this result as normal/abnormal . [facility] DallasNtubkyuAHRSMPZLDB1293-05-69 13:09:00 Test Item Value Reference Range Interpretation Comments Segs (test code = Segs) 58.0 45.0-75.0 [facility] DallasFeucekbVAQZVEGYGL4039-21-72 13:09:00 Test Item Value Reference Range Interpretation Comments Eosinophils # (test code 0.3 See_Comment [A utomated message] The = Eosinophils #) system whic h generated this result tra nsmitted reference range : <=0.5. The reference r sumeet was not used to int erpret this result as normal/abnormal . [facility] DallasSxmifsxSKOANNDYRQ5185-79-15 13:09:00 Test Item Value Reference Range Interpretation Comments Monocytes # (test code 0.9 See_Comment [Aut omated message] The = Monocytes #) system which generated this result tra nsmitted reference range : <=0.8. The reference r sumeet was not used to int erpret this result as normal/abnormal . [facility]HckqavmCDSZOQBLTU0356-27-72 13:09:00 Test Item Value Reference Range Interpretation Comments Lymphocytes (test code = Lymphocytes) 27.9 20.0-40.0 [facility]BknwwnfZXKLXRKXHM0329-93-12 13:09:00 Test Item Value Reference Range Interpretation Comments Monocytes (test code = Monocytes) 9.8 2.0-12.0 [facility]2015-08-10 13:09:00 Test Item Value Reference Range Interpretation Comments Ca Norm WB (test code = Ca Norm WB) 1.07 1.05-1.25 [facility] AUNHJAO8506[facility] 13:09:00 Test Item Value Reference Range Interpretation Comments Ca Ion WB (test code = Ca Ion WB) 1.05 1.05-1.25 [facility]MfptxjuMBVQKLARLY5573-81-15 13:09:00 Test Item Value Reference Range Interpretation Comments Etoh (%) (test code = Etoh (%)) no gt [place] 93261015-08-10 13:09:00 Test Item Value Reference Range Interpretation Comments Ethanol Lvl (test code = Ethanol Lvl) no gt [facility] HospitalCHEM QKLAX0377-22-17 10:25:00 Test Item Value Reference Range Interpretation Comments A/G Ratio (test code = A/G Ratio) 1.1 0.7-1.6 [facility]2015-08-10 10:25:00 Test Item Value Reference Range Interpretation Comments Globulin (test code = Globulin) 2.8 2.0-4.0 [facility]2015-08-10 10:25:00 Test Item Value Reference Range Interpretation Comments B/C Ratio (test code = B/C Ratio) 19 6-25 [facility]2015-08-10 10:25:00 Test Item Value Reference Range Interpretation Comments Alk Phos (test code = Alk Phos) 73 39-136 [facility]2015-08-10 10:25:00 Test Item Value Reference Range Interpretation Comments AST (test code = AST) 20 See_Comment [Auto mated message] The system which ge nerated this result transmit clarita reference range : <=37. The reference range was not used to interpr et this result as brendan l/abnormal. [facility]2015-08-10 10:25:00 Test Item Value Reference Range Interpretation Comments Bili Total (test code = Bili Total) 0.2 0.2-1.3 [facility]2015-08-10 10:25:00 Test Item Value Reference Range Interpretation Comments ALT (test code = ALT) 27 See_Comment [Auto mated message] The system which ge nerated this result transmit clarita reference range : <=65. The reference range was not used to interpr et this result as brendan l/abnormal. [facility]2015-08-10 10:25:00 Test Item Value Reference Range Interpretation Comments Albumin Lvl (test code = Albumin Lvl) 3.2 3.5-5.0 [facility]2015-08-10 10:25:00 Test Item Value Reference Range Interpretation Comments Total Protein (test code = Total 6.0 6.4-8.4 Protein) [facility] HospitalLabywsgGWEHNFUAGY2925-98-43 10:25:00 Test Item Value Reference Range Interpretation Comments Valproic Acid Lvl (test code = Valproic no gt 50-100 Acid Lvl) [facility]LzcbdvbAOBYUZIVZRTG8833-31-46 14:47:00 Test Item Value Reference Range Interpretation Comments AGAP (test code = AGAP) 10.0 10.0-20.0 [facility]awUnqmfijZDTATTAOXOMF5400-82-50 14:47:00 Test Item Value Reference Range Interpretation Comments Chloride Lvl (test code = Chloride Lvl) 103 95-109 [facility]awIxugcigYBRKVKUJMBDD9665-81-09 14:47:00 Test Item Value Reference Range Interpretation Comments Potassium Lvl (test code = Potassium 4.0 3.5-5.1 Lvl) [facility]awXhpackmGOXVDCIISHMI3281-49-45 14:47:00 Test Item Value Reference Range Interpretation Comments Sodium Lvl (test code = Sodium Lvl) 138 135-145 [facility]awIjibahxZYODWPAFUHWV5707-97-59 14:47:00 Test Item Value Reference Range Interpretation Comments eGFR (test code = eGFR) 91 [facility]awKivkjfzVDXZMLQFITAW7013-74-58 14:47:00 Test Item Value Reference Range Interpretation Comments Glucose Lvl (test code = Glucose Lvl) 115 70-99 [facility]awYryunxrHQKNPWJWZYXT3586-52-24 14:47:00 Test Item Value Reference Range Interpretation Comments CO2 (test code = CO2) 29 24-32 [facility]awCbtanxbLRWXTCZESKZU1235-44-16 14:47:00 Test Item Value Reference Range Interpretation Comments Calcium Lvl (test code = Calcium Lvl) 8.9 8.5-10.5 [facility]awTwuvegjGFVDXSUEZKDU2787-17-23 14:47:00 Test Item Value Reference Range Interpretation Comments Creatinine Lvl (test code = Creatinine 1.0 0.5-1.4 Lvl) [facility]awRqnnevtHGATJSFRRKJO5001-27-06 14:47:00 Test Item Value Reference Range Interpretation Comments BUN (test code = BUN) 15 7-22 [facility] DallasAalyfzyPWXKLKOOME5240-92-74 14:47:00 Test Item Value Reference Range Interpretation Comments Segs (test code = Segs) 74.6 45.0-75.0 [facility] DallasNsiiodlNDXQRUIHSE8047-01-16 14:47:00 Test Item Value Reference Range Interpretation Comments Lymphocytes # (test code = Lymphocytes 1.9 1.0-5.5 #) [facility] DallasFoqbrlyASOACERUXF9757-01-32 14:47:00 Test Item Value Reference Range Interpretation Comments Segs-Bands # (test code = Segs-Bands #) 10.8 1.5-8.1 [facility] DallasNcqejpxGWZEXFEDVB3331-94-39 14:47:00 Test Item Value Reference Range Interpretation Comments Eosinophils (test code = 1.7 See_Comment [A utomated message] The Eosinophils) system which ge nerated this result tra nsmitted reference range : <=4.0. The reference r sumeet was not used to int erpret this result as normal/abnormal . [facility] DallasUvratrbCQHKEQNVDI3642-00-13 14:47:00 Test Item Value Reference Range Interpretation Comments Basophils (test code = 1.2 See_Comment [Aut omated message] The Basophils) system which ge nerated this result tra nsmitted reference range : <=1.0. The reference r sumeet was not used to int erpret this result as normal/abnormal . [facility] DallasQqpxsgjVNYIFWCSRQ6152-51-27 14:47:00 Test Item Value Reference Range Interpretation Comments Monocytes (test code = Monocytes) 9.6 2.0-12.0 [facility] DallasVzlkrocMVEFLURNLT3822-75-90 14:47:00 Test Item Value Reference Range Interpretation Comments Lymphocytes (test code = Lymphocytes) 12.9 20.0-40.0 [facility] DallasTmcvurtKMMQGYVAOU7893-59-68 14:47:00 Test Item Value Reference Range Interpretation Comments Basophils # (test code 0.2 See_Comment [Aut omated message] The = Basophils #) system which generated this result tra nsmitted reference range : <=0.2. The reference r sumeet was not used to int erpret this result as normal/abnormal . [facility] DallasLpghqxbFIJEJEESDZ4676-25-12 14:47:00 Test Item Value Reference Range Interpretation Comments Eosinophils # (test code 0.2 See_Comment [A utomated message] The = Eosinophils #) system whic h generated this result tra nsmitted reference range : <=0.5. The reference r sumeet was not used to int erpret this result as normal/abnormal . [facility] DallasEdfylnjXVQLXALUNP0807-18-82 14:47:00 Test Item Value Reference Range Interpretation Comments Monocytes # (test code 1.4 See_Comment [Aut omated message] The = Monocytes #) system which generated this result tra nsmitted reference range : <=0.8. The reference r sumeet was not used to int erpret this result as normal/abnormal . [facility] DallasVyeimfqTKMFNGVEHB1529-25-18 14:47:00 Test Item Value Reference Range Interpretation Comments MCV (test code = MCV) 96.2 80.0-94.0 [facility] DallasQvnkvktQGQPJBVRNI3282-96-56 14:47:00 Test Item Value Reference Range Interpretation Comments MCH (test code = MCH) 32.8 pg 27.0-31.0 [facility] DallasBvwvbbvXWIUDYXWNH6036-58-74 14:47:00 Test Item Value Reference Range Interpretation Comments Hct (test code = Hct) 43.9 42.0-54.0 [facility] DallasOuffnumAUMWBCIHYU6989-70-94 14:47:00 Test Item Value Reference Range Interpretation Comments MCHC (test code = MCHC) 34.1 32.0-36.0 [facility] DallasIfwykyiDBVWYPDAIV9606-89-15 14:47:00 Test Item Value Reference Range Interpretation Comments WBC (test code = WBC) 14.5 3.7-10.4 [facility] DallasLaaeetgEPJRWCVOUY7977-23-54 14:47:00 Test Item Value Reference Range Interpretation Comments RBC (test code = RBC) 4.57 4.70-6.10 [facility]MhgewopIISJIWFWVL0191-76-04 14:47:00 Test Item Value Reference Range Interpretation Comments Hgb (test code = Hgb) 15.0 14.0-18.0 [facility]YrdtihbXRKOAGUMXH0243-19-15 14:47:00 Test Item Value Reference Range Interpretation Comments MPV (test code = MPV) 9.2 7.4-10.4 [facility] MichiganQgpolvyEUTRPRNXCP4823-45-11 14:47:00 Test Item Value Reference Range Interpretation Comments RDW (test code = RDW) 13.3 11.5-14.5 [facility] HospitalPcuyageKVAQEFTIMH9573-43-48 14:47:00 Test Item Value Reference Range Interpretation Comments Platelet (test code = Platelet) 207 133-450 [facility]DR[facility] ZBFXNH1221-51-34 21:34:00 Test Item Value Reference Range Interpretation Comments U Opiate Scr (test Positive *ABN*(10/26/14 code = U Opiate Scr) 4:34 PM) [facility] CTWSCL4184-23-93 21:34:00 Test Item Value Reference Range Interpretation Comments U Phencyc Scr (test Negative *NA*(10/26/14 code = U Phencyc Scr) 4:34 PM) [facility] SHNGCN4133-71-86 21:34:00 Test Item Value Reference Range Interpretation Comments U Benzodia Scr (test Positive *ABN*(10/26/14 code = U Benzodia Scr) 4:34 PM) [facility] [id number] 21:34:00 Test Item Value Reference Range Interpretation Comments U Cannab Scr (test Negative *NA*(10/26/14 code = U Cannab Scr) 4:34 PM) [facility] XEVQNH5870-66-62 21:34:00 Test Item Value Reference Range Interpretation Comments U Cocaine Scr (test Negative *NA*(10/26/14 code = U Cocaine Scr) 4:34 PM) [facility] YQJGRT5850-80-01 21:34:00 Test Item Value Reference Range Interpretation Comments UDS Note (test code = See Note 5(10/26/14 4:34 UDS Note) PM) [facility] NEIKCC9835-81-82 21:34:00 Test Item Value Reference Range Interpretation Comments U Shi Scr (test code Negative *NA*(10/26/14 = U Shi Scr) 4:34 PM) [facility] [id number] 21:34:00 Test Item Value Reference Range Interpretation Comments U Amph Scr (test code Positive *ABN*(10/26/14 = U Amph Scr) 4:34 PM) [facility] [id number] 21:34:00 Test Item Value Reference Range Interpretation Comments UA Blood (test code = Negative (10/26/14 4:34 UA Blood) PM) [facility] [id number] 21:34:00 Test Item Value Reference Range Interpretation Comments UA Urobilinogen (test code = UA 0.2 0.1-1.0 Urobilinogen) [facility] [id number] 21:34:00 Test Item Value Reference Range Interpretation Comments UA Bili (test code = Negative *NA*(10/26/14 UA Bili) 4:34 PM) [facility] [id number] 21:34:00 Test Item Value Reference Range Interpretation Comments UA Nitrite (test code Negative (10/26/14 4:34 = UA Nitrite) PM) [facility] [id number] 21:34:00 Test Item Value Reference Range Interpretation Comments UA Leuk Est (test Negative (10/26/14 4:34 code = UA Leuk Est) PM) [facility] [id number] 21:34:00 Test Item Value Reference Range Interpretation Comments UA Color (test code = Yellow *NA*(10/26/14 UA Color) 4:34 PM) [facility] [id number] 21:34:00 Test Item Value Reference Range Interpretation Comments UA Turbidity (test code = Clear (10/26/14 4:34 UA Turbidity) PM) [facility] [id number] 21:34:00 Test Item Value Reference Range Interpretation Comments UA pH (test code = UA pH) 6.0 1 5.0-8.0 [facility] [id number] 21:34:00 Test Item Value Reference Range Interpretation Comments UA Protein (test code = UA Negative mg/dL Protein) [facility] [id number] 21:34:00 Test Item Value Reference Range Interpretation Comments UA Glucose (test code = UA Negative mg/dL Glucose) [facility] AND [id number] 21:34:00 Test Item Value Reference Range Interpretation Comments UA Spec Grav (test code = UA Spec 1.020 1 Grav) [facility] AND [id number] 21:34:00 Test Item Value Reference Range Interpretation Comments UA Ketones (test code = UA Negative mg/dL Ketones) [facility] AND [id number] 21:34:00 Test Item Value Reference Range Interpretation Comments UA WBC (test code = UA WBC) 0-2 /HPF [facility] AND [id number] 21:34:00 Test Item Value Reference Range Interpretation Comments UA RBC (test code = 0-2 /HPF See_Comment [Automa clarita message] The UA RBC) system which ge nerated this result tra nsmitted reference range : <=2. The reference range was not used to interpr et this result as brendan l/abnormal. [facility] AND [id number] 21:34:00 Test Item Value Reference Range Interpretation Comments UA Sq Epi (test code = UA Sq Epi) Few /LPF [facility] SJYXLEU4829-31-89 20:43:00 Test Item Value Reference Range Interpretation Comments Total CK (test code = Total CK) 155 12-191 [facility] [id number] 20:43:00 Test Item Value Reference Range Interpretation Comments CK MB (test code = CK MB) 2.1 0.5-3.6 [facility] GUYGWKJ5836-81-66 20:43:00 Test Item Value Reference Range Interpretation Comments Troponin-I (test code no gt See_Comment [Auto mated message] The = Troponin-I) system which g enerated this result transmit clartia reference range : <=0.40. The reference r sumeet was not used to interpr et this result as brendan l/abnormal. [facility] [id number] 20:43:00 Test Item Value Reference Range Interpretation Comments CK MB Index (test 1.4 See_Comment [Automate d message] The code = CK MB Index) system w [facility] generated this result transmit clarita reference range : <=2.5. The reference range was not used to interpr et this result as brendan l/abnormal. [facility]2015-06-24 20:43:00 Test Item Value Reference Range Interpretation Comments eGFR (test code = eGFR) 67 [facility]2015-06-24 20:43:00 Test Item Value Reference Range Interpretation Comments AGAP (test code = AGAP) 9.7 10.0-20.0 [facility]2015-06-24 20:43:00 Test Item Value Reference Range Interpretation Comments B/C Ratio (test code = B/C Ratio) 17 6-25 [facility]2015-06-24 20:43:00 Test Item Value Reference Range Interpretation Comments AST (test code = AST) 17 See_Comment [Auto mated message] The system which ge nerated this result transmit clarita reference range : <=37. The reference range was not used to interpr et this result as brendan l/abnormal. [facility]2015-06-24 20:43:00 Test Item Value Reference Range Interpretation Comments Total Protein (test code = Total 7.3 6.4-8.4 Protein) [facility]2015-06-24 20:43:00 Test Item Value Reference Range Interpretation Comments Globulin (test code = Globulin) 3.8 2.0-4.0 [facility]2015-06-24 20:43:00 Test Item Value Reference Range Interpretation Comments A/G Ratio (test code = A/G Ratio) 0.9 0.7-1.6 [facility]2015-06-24 20:43:00 Test Item Value Reference Range Interpretation Comments CO2 (test code = CO2) 27 24-32 [facility]2015-06-24 20:43:00 Test Item Value Reference Range Interpretation Comments Calcium Lvl (test code = Calcium Lvl) 8.6 8.5-10.5 [facility]2015-06-24 20:43:00 Test Item Value Reference Range Interpretation Comments Bili Total (test code = Bili Total) 0.3 0.2-1.3 [facility]2015-06-24 20:43:00 Test Item Value Reference Range Interpretation Comments Chloride Lvl (test code = Chloride Lvl) 104 95-109 [facility]2015-06-24 20:43:00 Test Item Value Reference Range Interpretation Comments Glucose Lvl (test code = Glucose Lvl) 103 70-99 [facility]2015-06-24 20:43:00 Test Item Value Reference Range Interpretation Comments Alk Phos (test code = Alk Phos) 100 39-136 [facility]2015-06-24 20:43:00 Test Item Value Reference Range Interpretation Comments BUN (test code = BUN) 22 7-22 [facility]2015-06-24 20:43:00 Test Item Value Reference Range Interpretation Comments Creatinine Lvl (test code = Creatinine 1.3 0.5-1.4 Lvl) [facility]2015-06-24 20:43:00 Test Item Value Reference Range Interpretation Comments Sodium Lvl (test code = Sodium Lvl) 137 135-145 [facility]2015-06-24 20:43:00 Test Item Value Reference Range Interpretation Comments Potassium Lvl (test code = Potassium 3.7 3.5-5.1 Lvl) [facility]2015-06-24 20:43:00 Test Item Value Reference Range Interpretation Comments ALT (test code = ALT) 30 See_Comment [Auto mated message] The system which ge nerated this result transmit clarita reference range : <=65. The reference range was not used to interpr et this result as brendan l/abnormal. [facility]2015-06-24 20:43:00 Test Item Value Reference Range Interpretation Comments Albumin Lvl (test code = Albumin Lvl) 3.5 3.5-5.0 [facility] DallasGaxcrxfRSTYFMGZCT5504-42-55 20:43:00 Test Item Value Reference Range Interpretation Comments INR (test code = INR) 0.94 0.85-1.17 [facility] DallasDadanppHHIRHAIRXL5607-22-26 20:43:00 Test Item Value Reference Range Interpretation Comments PT (test code = PT) 12.5 s 12.0-14.7 [facility] DallasEcklimaHZOIFQJUGJ0199-51-94 20:43:00 Test Item Value Reference Range Interpretation Comments MPV (test code = MPV) 8.9 7.4-10.4 [facility] DallasQxqwzxiVLVHEPDWBE5113-85-06 20:43:00 Test Item Value Reference Range Interpretation Comments Platelet (test code = Platelet) 217 133-450 [facility] DallasVrpowyuLQYFEVPNNS9951-09-99 20:43:00 Test Item Value Reference Range Interpretation Comments MCH (test code = MCH) 31.4 pg 27.0-31.0 [facility] DallasSnmcpnoZANAPSZILR4923-21-73 20:43:00 Test Item Value Reference Range Interpretation Comments RDW (test code = RDW) 13.6 11.5-14.5 [facility] DallasNgvwjzhOHTJYNHRBG8246-79-04 20:43:00 Test Item Value Reference Range Interpretation Comments MCHC (test code = MCHC) 32.7 32.0-36.0 [facility] DallasGejrmlmLZNHJRTETJ8450-52-40 20:43:00 Test Item Value Reference Range Interpretation Comments Hct (test code = Hct) 45.6 42.0-54.0 [facility] [facility]ilklCELGNEMFEV9814[facility]28-43 20:43:00 Test Item Value Reference Range Interpretation Comments MCV (test code = MCV) 96.3 80.0-94.0 [facility] DallasHccsnloHMHPOUIFDC1108-72-04 20:43:00 Test Item Value Reference Range Interpretation Comments RBC (test code = RBC) 4.74 4.70-6.10 [facility] DallasCrhkjifOXWWUOBDNK8689-62-18 20:43:00 Test Item Value Reference Range Interpretation Comments Hgb (test code = Hgb) 14.9 14.0-18.0 [facility] DallasXvgtyrsFJATRCWHJS8399-99-98 20:43:00 Test Item Value Reference Range Interpretation Comments WBC (test code = WBC) 12.5 3.7-10.4 [facility] DallasZbicsbcTDLONBAHYG3645-26-71 20:43:00 Test Item Value Reference Range Interpretation Comments Eosinophils # (test code 0.3 See_Comment [A utomated message] The = Eosinophils #) system whic h generated this result tra nsmitted reference range : <=0.5. The reference r sumeet was not used to int erpret this result as normal/abnormal . [facility] DallasWsgutngPEGJLYAKDU7025-00-31 20:43:00 Test Item Value Reference Range Interpretation Comments Basophils # (test code 0.1 See_Comment [Aut omated message] The = Basophils #) system which generated this result tra nsmitted reference range : <=0.2. The reference r sumeet was not used to int erpret this result as normal/abnormal . [facility] DallasIhkowmwVLCVEBEFOK6613-22-13 20:43:00 Test Item Value Reference Range Interpretation Comments Monocytes # (test code 1.3 See_Comment [Aut omated message] The = Monocytes #) system which generated this result tra nsmitted reference range : <=0.8. The reference r sumeet was not used to int erpret this result as normal/abnormal . [facility] DallasYfrlwilLBULYFPXLS9293-59-78 20:43:00 Test Item Value Reference Range Interpretation Comments Monocytes (test code = Monocytes) 10.1 2.0-12.0 [facility] DallasIhxdoqwASUVOJAJZV0238-85-94 20:43:00 Test Item Value Reference Range Interpretation Comments Lymphocytes (test code = Lymphocytes) 22.5 20.0-40.0 [facility] DallasGdbiwxlZJLFZKMWOS7387-22-43 20:43:00 Test Item Value Reference Range Interpretation Comments Segs (test code = Segs) 64.1 45.0-75.0 [facility] DallasVnzwvioKNUIUVNGNS2135-49-07 20:43:00 Test Item Value Reference Range Interpretation Comments Segs-Bands # (test code = Segs-Bands #) 8.0 1.5-8.1 [facility] DallasCjweeivEDCNCQZWYQ2903-99-37 20:43:00 Test Item Value Reference Range Interpretation Comments Eosinophils (test code = 2.6 See_Comment [A utomated message] The Eosinophils) system which ge nerated this result tra nsmitted reference range : <=4.0. The reference r sumeet was not used to int erpret this result as normal/abnormal . [facility] DallasXksihgyFUQIKAMXTN8096-98-46 20:43:00 Test Item Value Reference Range Interpretation Comments Lymphocytes # (test code = Lymphocytes 2.8 1.0-5.5 #) [facility] DallasIgsuzacAFDSWODDVK5433-78-64 20:43:00 Test Item Value Reference Range Interpretation Comments Basophils (test code = 0.7 See_Comment [Aut omated message] The Basophils) system which ge nerated this result tra nsmitted reference range : <=1.0. The reference r sumeet was not used to int erpret this result as normal/abnormal . [place] [id number] 20:43:00 Test Item Value Reference Range Interpretation Comments Valproic Acid Lvl (test code = Valproic 20 50-100 Acid Lvl) [place] 700585-06-24 20:43:00 Test Item Value Reference Range Interpretation Comments Etoh (%) (test code = Etoh (%)) no gt [facility] ZajgdzfDZCUSDSMWU7942-64-17 20:43:00 Test Item Value Reference Range Interpretation Comments Ethanol Lvl (test code = Ethanol Lvl) no gt [facility] HermannCARDIAC [id number] 10:50:00 Test Item Value Reference Range Interpretation Comments CK MB Index (test 1.3 See_Comment [Automate d message] The code = CK MB Index) system w [facility] generated this result transmit clarita reference range : <=2.5. The reference range was not used to interpr et this result as brendan l/abnormal. [facility] NUWOQCY5815-53-42 10:50:00 Test Item Value Reference Range Interpretation Comments CK MB (test code = CK MB) 1.3 0.5-3.6 [facility] [id number] 10:50:00 Test Item Value Reference Range Interpretation Comments Troponin-I (test code no gt See_Comment [Auto mated message] The = Troponin-I) system which g enerated this result transmit clarita reference range : <=0.40. The reference r sumeet was not used to interpr et this result as brendan l/abnormal. [facility] XFHXIFM9179-91-02 10:50:00 Test Item Value Reference Range Interpretation Comments Total CK (test code = Total CK) 102 12-191 [facility] HookitannCARDIAC BHJAZQS0285-25-63 10:50:00 Test Item Value Reference Range Interpretation Comments Troponin-T (test code no gt See_Comment [Auto mated message] The = Troponin-T) system which g enerated this result transmit clarita reference range : <=0.100. The reference r sumeet was not used to interpr et this result as brendan l/abnormal. [facility] [id number] 02:22:00 Test Item Value Reference Range Interpretation Comments UDS Note (test code = See Note 4(07/19/14 9:22 UDS Note) PM) [facility] [id number] 02:22:00 Test Item Value Reference Range Interpretation Comments U Phencyc Scr (test Negative *NA*(3/17/15 code = U Phencyc Scr) 9:22 PM) [facility] [id number] 02:22:00 Test Item Value Reference Range Interpretation Comments U Cannab Scr (test Negative *NA*(07/19/14 code = U Cannab Scr) 9:22 PM) [facility] [id number] 02:22:00 Test Item Value Reference Range Interpretation Comments U Opiate Scr (test Negative *NA*(07/19/14 code = U Opiate Scr) 9:22 PM) [facility] [id number] 02:22:00 Test Item Value Reference Range Interpretation Comments U Amph Scr (test code Positive *ABN*(07/19/14 = U Amph Scr) 9:22 PM) [facility] [id number] 02:22:00 Test Item Value Reference Range Interpretation Comments U Benzodia Scr (test Positive *ABN*(07/19/14 code = U Benzodia Scr) 9:22 PM) [facility] [id number] 02:22:00 Test Item Value Reference Range Interpretation Comments U Sih Scr (test code Negative *NA*(07/19/14 = U Shi Scr) 9:22 PM) [facility] [id number] 02:22:00 Test Item Value Reference Range Interpretation Comments U Cocaine Scr (test Negative *NA*(07/19/14 code = U Cocaine Scr) 9:22 PM) [facility] [id number] 02:22:00 Test Item Value Reference Range Interpretation Comments UA Nitrite (test code Negative (07/19/14 9:22 = UA Nitrite) PM) [facility] [id number] 02:22:00 Test Item Value Reference Range Interpretation Comments UA Leuk Est (test Negative (07/19/14 9:22 code = UA Leuk Est) PM) [facility] [id number] 02:22:00 Test Item Value Reference Range Interpretation Comments UA Urobilinogen (test code = UA 0.2 0.1-1.0 Urobilinogen) [facility] [id number] 02:22:00 Test Item Value Reference Range Interpretation Comments UA Color (test code = Yellow *NA*(07/19/14 UA Color) 9:22 PM) [facility] [id number] 02:22:00 Test Item Value Reference Range Interpretation Comments UA Spec Grav (test code = UA Spec 1.042 1 Grav) [facility] [id number] 02:22:00 Test Item Value Reference Range Interpretation Comments UA Turbidity (test code = Clear (07/19/14 9:22 UA Turbidity) PM) [facility] [id number] 02:22:00 Test Item Value Reference Range Interpretation Comments UA pH (test code = UA pH) 6.0 1 5.0-8.0 [facility] AND [id number] 02:22:00 Test Item Value Reference Range Interpretation Comments UA Protein (test code Negative (07/19/14 9:22 = UA Protein) PM) [facility] [id number] 02:22:00 Test Item Value Reference Range Interpretation Comments UA Ketones (test code Negative *NA*(07/19/14 = UA Ketones) 9:22 PM) [facility] AND [id number] 02:22:00 Test Item Value Reference Range Interpretation Comments UA Glucose (test code Negative (07/19/14 9:22 = UA Glucose) PM) [facility] AND [id number] 02:22:00 Test Item Value Reference Range Interpretation Comments UA Bili (test code = Negative *NA*(07/19/14 UA Bili) 9:22 PM) [facility] AND [id number] 02:22:00 Test Item Value Reference Range Interpretation Comments UA Blood (test code = Negative (07/19/14 9:22 UA Blood) PM) [facility] AND [id number] 02:22:00 Test Item Value Reference Range Interpretation Comments UA Sq Epi (test code = UA Sq Epi) Rare /LPF [facility] AND [id number] 02:22:00 Test Item Value Reference Range Interpretation Comments UA RBC (test None Seen See_Comment [Automated mes aisha] code = UA RBC) (07/19/14 9:22 The system w hich PM) generated this result transmitted ref erence range: <=2. The reference range was not used to int erpret this result as normal/abnormal . [facility] AND [id number] 02:22:00 Test Item Value Reference Range Interpretation Comments UA WBC (test code = UA WBC) 0-2 /HPF [facility] [id number] 02:22:00 Test Item Value Reference Range Interpretation Comments UA Bacteria (test code = None Seen (07/19/14 UA Bacteria) 9:22 PM) [facility] [id number] 23:53:00 Test Item Value Reference Range Interpretation Comments Phosphorus (test code = Phosphorus) 3.3 2.5-4.5 [facility] [id number] 23:53:00 Test Item Value Reference Range Interpretation Comments Magnesium Lvl (test code = Magnesium 1.7 1.8-2.4 Lvl) [facility] RxjwolbBBZJAPNXTE7032-24-98 23:53:00 Test Item Value Reference Range Interpretation Comments Valproic Acid Lvl (test code = Valproic 6 50-100 Acid Lvl) [facility] [id number] 23:08:00 Test Item Value Reference Range Interpretation Comments eGFR (test code = eGFR) 41 [facility] HookitannCHEM [id number] 23:08:00 Test Item Value Reference Range Interpretation Comments POC Creatinine (test code = POC 1.3 0.5-1.4 Creatinine) [facility] [id number] 22:55:00 Test Item Value Reference Range Interpretation Comments CK MB Index (test 0.9 See_Comment [Automate d message] The code = CK MB Index) system w [facility] generated this result transmit clarita reference range : <=2.5. The reference range was not used to interpr et this result as brendan l/abnormal. [facility] [id number] 22:55:00 Test Item Value Reference Range Interpretation Comments Troponin-I (test code no gt See_Comment [Auto mated message] The = Troponin-I) system which g enerated this result transmit clarita reference range : <=0.40. The reference r sumeet was not used to interpr et this result as brendan l/abnormal. [facility] [id number] 22:55:00 Test Item Value Reference Range Interpretation Comments Total CK (test code = Total CK) 141 12-191 [facility] [id number] 22:55:00 Test Item Value Reference Range Interpretation Comments CK MB (test code = CK MB) 1.3 0.5-3.6 [facility]2015-03-17 22:55:00 Test Item Value Reference Range Interpretation Comments Lactic Acid WB (test code = Lactic Acid 2.2 0.5-2.2 WB) [facility]2015-03-17 22:55:00 Test Item Value Reference Range Interpretation Comments A/G Ratio (test code = A/G Ratio) 1.1 0.7-1.6 [place] [id number] 22:55:00 Test Item Value Reference Range Interpretation Comments AGAP (test code = AGAP) 10.8 10.0-20.0 [place] [id number] 22:55:00 Test Item Value Reference Range Interpretation Comments Globulin (test code = Globulin) 3.3 2.0-4.0 [facility]2015-03-17 22:55:00 Test Item Value Reference Range Interpretation Comments B/C Ratio (test code = B/C Ratio) 16 6-25 [place] 451535-03-17 22:55:00 Test Item Value Reference Range Interpretation Comments eGFR (test code = eGFR) 73 [place] 451535-03-17 22:55:00 Test Item Value Reference Range Interpretation Comments Total Protein (test code = Total 6.8 6.4-8.4 Protein) [place] [id number] 22:55:00 Test Item Value Reference Range Interpretation Comments ALT (test code = ALT) 38 See_Comment [Auto mated message] The system which ge nerated this result transmit clarita reference range : <=65. The reference range was not used to interpr et this result as brendan l/abnormal. [facility]2015-03-17 22:55:00 Test Item Value Reference Range Interpretation Comments Albumin Lvl (test code = Albumin Lvl) 3.5 3.5-5.0 [facility]2015-03-17 22:55:00 Test Item Value Reference Range Interpretation Comments AST (test code = AST) 27 See_Comment [Auto mated message] The system which ge nerated this result transmit clarita reference range : <=37. The reference range was not used to interpr et this result as brendan l/abnormal. [facility]2015-03-17 22:55:00 Test Item Value Reference Range Interpretation Comments Bili Total (test code = Bili Total) 0.3 0.2-1.3 [facility]2015-03-17 22:55:00 Test Item Value Reference Range Interpretation Comments Alk Phos (test code = Alk Phos) 83 39-136 [facility]2015-03-17 22:55:00 Test Item Value Reference Range Interpretation Comments Chloride Lvl (test code = Chloride Lvl) 107 95-109 [facility]2015-03-17 22:55:00 Test Item Value Reference Range Interpretation Comments CO2 (test code = CO2) 25 24-32 [facility]2015-03-17 22:55:00 Test Item Value Reference Range Interpretation Comments Calcium Lvl (test code = Calcium Lvl) 8.3 8.5-10.5 [facility]2015-03-17 22:55:00 Test Item Value Reference Range Interpretation Comments Creatinine Lvl (test code = Creatinine 1.2 0.5-1.4 Lvl) [facility]2015-03-17 22:55:00 Test Item Value Reference Range Interpretation Comments BUN (test code = BUN) 19 7-22 [facility]2015-03-17 22:55:00 Test Item Value Reference Range Interpretation Comments Glucose Lvl (test code = Glucose Lvl) 82 70-99 [facility]2015-03-17 22:55:00 Test Item Value Reference Range Interpretation Comments Sodium Lvl (test code = Sodium Lvl) 139 135-145 [facility]2015-03-17 22:55:00 Test Item Value Reference Range Interpretation Comments Potassium Lvl (test code = Potassium 3.8 3.5-5.1 Lvl) [facility] [id number] 22:55:00 Test Item Value Reference Range Interpretation Comments Segs-Bands # (test code = Segs-Bands #) 5.0 1.5-8.1 [facility] DallasTsdkwmeVSWVXONGXW1191-05-58 22:55:00 Test Item Value Reference Range Interpretation Comments Basophils (test code = 0.0 See_Comment [Aut omated message] The Basophils) system which ge nerated this result tra nsmitted reference range : <=1.0. The reference r sumeet was not used to int erpret this result as normal/abnormal . [facility] DallasRrqxqejLPJXGLZWNE3587-20-67 22:55:00 Test Item Value Reference Range Interpretation Comments Lymphocytes # (test code = Lymphocytes 2.7 1.0-5.5 #) [facility] DallasCkzetqmKBMUTKQXHL7099-72-72 22:55:00 Test Item Value Reference Range Interpretation Comments Monocytes (test code = Monocytes) 11.2 2.0-12.0 [place] [id number] 22:55:00 Test Item Value Reference Range Interpretation Comments Lymphocytes (test code = Lymphocytes) 29.5 20.0-40.0 [place] [address]-03-17 22:55:00 Test Item Value Reference Range Interpretation Comments Eosinophils (test code = 3.5 See_Comment [A utomated message] The Eosinophils) system which ge nerated this result tra nsmitted reference range : <=4.0. The reference r sumeet was not used to int erpret this result as normal/abnormal . [facility] DallasHmpqhslJUOBLVPFCU2142-28-07 22:55:00 Test Item Value Reference Range Interpretation Comments Segs (test code = Segs) 55.8 45.0-75.0 [facility] DallasCgdynznAZCRWDKLAR7562-60-45 22:55:00 Test Item Value Reference Range Interpretation Comments Basophils # (test code 0.0 See_Comment [Aut omated message] The = Basophils #) system which generated this result tra nsmitted reference range : <=0.2. The reference r sumeet was not used to int erpret this result as normal/abnormal . [facility] DallasIhtdtyvCOJKOMXFYE4632-50-27 22:55:00 Test Item Value Reference Range Interpretation Comments Eosinophils # (test code 0.3 See_Comment [A utomated message] The = Eosinophils #) system whic h generated this result tra nsmitted reference range : <=0.5. The reference r sumeet was not used to int erpret this result as normal/abnormal . [facility] DallasElrlkvcMHACPWWNNJ2514-88-18 22:55:00 Test Item Value Reference Range Interpretation Comments Monocytes # (test code 1.0 See_Comment [Aut omated message] The = Monocytes #) system which generated this result tra nsmitted reference range : <=0.8. The reference r sumeet was not used to int erpret this result as normal/abnormal . [facility] DallasBfsihgzGHOJUTNNBO4917-20-35 22:55:00 Test Item Value Reference Range Interpretation Comments PT (test code = PT) 12.5 s 12.0-14.7 [place] [address]-03-17 22:55:00 Test Item Value Reference Range Interpretation Comments INR (test code = INR) 0.94 0.85-1.17 [place] [address]-03-17 22:55:00 Test Item Value Reference Range Interpretation Comments PTT (test code = PTT) 26.6 s 22.9-35.8 [place] [address]-03-17 22:55:00 Test Item Value Reference Range Interpretation Comments RDW (test code = RDW) 12.7 11.5-14.5 [place] [address]-03-17 22:55:00 Test Item Value Reference Range Interpretation Comments Platelet (test code = Platelet) 172 133-450 [facility] DallasBzfyvcoXDOOLDRYJY1141-37-51 22:55:00 Test Item Value Reference Range Interpretation Comments MCHC (test code = MCHC) 33.9 32.0-36.0 [facility] DallasTbcflxzBVHJXARQQT9924-05-55 22:55:00 Test Item Value Reference Range Interpretation Comments MCH (test code = MCH) 32.3 pg 27.0-31.0 [place] [address]-03-17 22:55:00 Test Item Value Reference Range Interpretation Comments MCV (test code = MCV) 95.1 80.0-94.0 [place] [address]-03-17 22:55:00 Test Item Value Reference Range Interpretation Comments Hct (test code = Hct) 42.4 42.0-54.0 [place] [address]-03-17 22:55:00 Test Item Value Reference Range Interpretation Comments MPV (test code = MPV) 9.7 7.4-10.4 [place] [address]-03-17 22:55:00 Test Item Value Reference Range Interpretation Comments WBC (test code = WBC) 9.0 3.7-10.4 [place] [address]-03-17 22:55:00 Test Item Value Reference Range Interpretation Comments RBC (test code = RBC) 4.46 4.70-6.10 [facility] DallasIdczgexXFDGPVYDCA4590-87-86 22:55:00 Test Item Value Reference Range Interpretation Comments Hgb (test code = Hgb) 14.4 14.0-18.0 [facility]TygjnplHDIZIAVMK5927-11-96 10:19:00 Test Item Value Reference Range Interpretation Comments AGAP (test code = AGAP) 13.8 10.0-20.0 N [facility] HospitalTavejnqKHIYKCBOK7671-53-64 10:19:00 Test Item Value Reference Range Interpretation Comments Globulin (test code = Globulin) 3.5 2.0-4.0 N [facility] HospitalYsuslkuKFMZWYIVM1822-90-92 10:19:00 Test Item Value Reference Range Interpretation Comments B/C Ratio (test code = B/C Ratio) 15 6-25 N [facility] HospitalFcsoyjfSLLQBMMMS9581-58-91 10:19:00 Test Item Value Reference Range Interpretation Comments A/G Ratio (test code = A/G Ratio) 1.1 0.7-1.6 N [facility] HospitalNvcbdwzKFPYKTNBT5386-05-63 10:19:00 Test Item Value Reference Range Interpretation Comments BUN (test code = BUN) 12 7-22 N [facility] HospitalKhunubwVKGMLWQDB7799-42-26 10:19:00 Test Item Value Reference Range Interpretation Comments Creatinine Lvl (test code = Creatinine 0.8 0.5-1.4 N Lvl) [facility] HospitalPxdmipvBXKFCZTTB7269-50-05 10:19:00 Test Item Value Reference Range Interpretation Comments Glucose Lvl (test code = Glucose Lvl) 81 [facility] HospitalStmopvaIJALJNVCA9786-75-79 10:19:00 Test Item Value Reference Range Interpretation Comments Total Protein (test code = Total 7.4 6.4-8.4 N Protein) [facility] HospitalJpbrrbcWBQPKBYXS4833-57-93 10:19:00 Test Item Value Reference Range Interpretation Comments Bili Total (test code = Bili Total) 0.3 0.2-1.3 N [facility] HospitalNzrnvseUMBAIBIOC4656-75-68 10:19:00 Test Item Value Reference Range Interpretation Comments Calcium Lvl (test code = Calcium Lvl) 8.8 8.5-10.5 N [facility] HospitalLodjzwgLJVGABBCM2079-54-32 10:19:00 Test Item Value Reference Range Interpretation Comments AST (test code = AST) 22 See_Comment N [Auto mated message] The system which ge nerated this result transmit clarita reference range : <=37. The reference range was not used to interpr et this result as brendan l/abnormal. [facility] HospitalTqoqvbrJIDFHEJWU7685-92-39 10:19:00 Test Item Value Reference Range Interpretation Comments Sodium Lvl (test code = Sodium Lvl) 142 135-145 N [facility] HospitalJbctpafWSUWXAWJB2647-17-38 10:19:00 Test Item Value Reference Range Interpretation Comments Potassium Lvl (test code = Potassium 3.8 3.5-5.1 N Lvl) [facility] HospitalHauhmxbDGKMSJLZR4200-26-57 10:19:00 Test Item Value Reference Range Interpretation Comments CO2 (test code = CO2) 24 24-32 N [facility] HospitalUtxfglwYEAZGYSVM2945-04-44 10:19:00 Test Item Value Reference Range Interpretation Comments Chloride Lvl (test code = Chloride Lvl) 108 95-109 N [facility] HospitalRxsbkyzYKSIOWWCV3909-08-14 10:19:00 Test Item Value Reference Range Interpretation Comments Albumin Lvl (test code = Albumin Lvl) 3.9 3.5-5.0 N [facility] HospitalNjaljtjRSSEGIAYQ3312-69-36 10:19:00 Test Item Value Reference Range Interpretation Comments Alk Phos (test code = Alk Phos) 79 39-136 N [facility] HospitalHyroecwVVPGDXMGD5026-87-17 10:19:00 Test Item Value Reference Range Interpretation Comments ALT (test code = ALT) 41 See_Comment N [Auto mated message] The system which ge nerated this result transmit clarita reference range : <=65. The reference range was not used to interpr et this result as brendan l/abnormal. [facility] HospitalAuvlzveNUXOGXQEK6544-56-61 10:19:00 Test Item Value Reference Range Interpretation Comments Magnesium Lvl (test code = Magnesium 1.9 1.8-2.4 N Lvl) [facility] HospitalHzwicclUVGHUBNNF0651-15-97 10:19:00 Test Item Value Reference Range Interpretation Comments Phosphorus (test code = Phosphorus) 3.6 2.5-4.5 N [facility] DallasLciedrdEUEAIMKGVV0621-54-69 10:19:00 Test Item Value Reference Range Interpretation Comments Hgb (test code = Hgb) 15.1 14.0-18.0 N [facility] DallasRpwnmwtJJNFJYQUFE0992-20-38 10:19:00 Test Item Value Reference Range Interpretation Comments RBC (test code = RBC) 4.49 4.70-6.10 L [facility] DallasDenregoSCRAIPBJTM1383-41-07 10:19:00 Test Item Value Reference Range Interpretation Comments WBC (test code = WBC) 10.7 3.7-10.4 H [facility] DallasUtmfyzrWTTYTNPBDV3900-57-97 10:19:00 Test Item Value Reference Range Interpretation Comments MCH (test code = MCH) 33.7 pg 27.0-31.0 H [facility] DallasFycwkhwIQUFVCNYEO3668-18-38 10:19:00 Test Item Value Reference Range Interpretation Comments MCV (test code = MCV) 97.3 80.0-94.0 H [facility] DallasRihmevyKIBHNATODE0234-98-57 10:19:00 Test Item Value Reference Range Interpretation Comments RDW (test code = RDW) 13.5 11.5-14.5 N [facility] [place]QgkbvonVJMMDPISZS8328-42-81 10:19:00 Test Item Value Reference Range Interpretation Comments Hct (test code = Hct) 43.8 42.0-54.0 N [facility] DallasRllyawtRDWUKUNXAS6932-70-23 10:19:00 Test Item Value Reference Range Interpretation Comments MCHC (test code = MCHC) 34.6 32.0-36.0 N [facility] DallasPpjadeeVPRXBAUDIF5719-78-91 10:19:00 Test Item Value Reference Range Interpretation Comments MPV (test code = MPV) 9.1 7.4-10.4 N [facility] DallasNkzbeyqZSWCGCNGSY9669-43-66 10:19:00 Test Item Value Reference Range Interpretation Comments Platelet (test code = Platelet) 226 133-450 N [facility] DallasPoikabzDECQEIUOXL4204-13-53 10:19:00 Test Item Value Reference Range Interpretation Comments Lymphocytes # (test code = Lymphocytes 2.6 1.0-5.5 N #) [facility] DallasEmtxsljOPXQVUDHSC9615-90-97 10:19:00 Test Item Value Reference Range Interpretation Comments Eosinophils # (test code 0.3 See_Comment N [A utomated message] The = Eosinophils #) system whic h generated this result tra nsmitted reference range : <=0.5. The reference r sumeet was not used to int erpret this result as normal/abnormal . [facility] DallasMnvjuntCKTYTALVFX5801-47-04 10:19:00 Test Item Value Reference Range Interpretation Comments Segs-Bands # (test code = Segs-Bands #) 6.7 1.5-8.1 N [facility] DallasGlojpnoJEJKRVFGZY2351-97-98 10:19:00 Test Item Value Reference Range Interpretation Comments Monocytes # (test code 1.1 See_Comment H [Aut omated message] The = Monocytes #) system which generated this result tra nsmitted reference range : <=0.8. The reference r sumeet was not used to int erpret this result as normal/abnormal . [facility] DallasKruqmhgNHITHJFIOO4110-85-29 10:19:00 Test Item Value Reference Range Interpretation Comments Basophils # (test code 0.0 See_Comment N [Aut omated message] The = Basophils #) system which generated this result tra nsmitted reference range : <=0.2. The reference r sumeet was not used to int erpret this result as normal/abnormal . [facility] DallasYoxpcbrVCSMVXKTUV8897-57-09 10:19:00 Test Item Value Reference Range Interpretation Comments Lymphocytes (test code = Lymphocytes) 24.0 20.0-40.0 N [facility] DallasVyqmpdhJAYFQYGXYD8916-48-99 10:19:00 Test Item Value Reference Range Interpretation Comments Segs (test code = Segs) 62.5 45.0-75.0 N [facility] DallasPmbrypcQNGQMEOSOR7828-80-11 10:19:00 Test Item Value Reference Range Interpretation Comments Monocytes (test code = Monocytes) 10.5 2.0-12.0 N [facility] DallasPzdvwdhKGFLXDFESQ3518-31-05 10:19:00 Test Item Value Reference Range Interpretation Comments Basophils (test code = 0.4 See_Comment N [Aut omated message] The Basophils) system which ge nerated this result tra nsmitted reference range : <=1.0. The reference r sumeet was not used to int erpret this result as normal/abnormal . [facility] DallasLqyrypaSEVPYBAHMN2620-88-16 10:19:00 Test Item Value Reference Range Interpretation Comments Eosinophils (test code = 2.6 See_Comment N [A utomated message] The Eosinophils) system which ge nerated this result tra nsmitted reference range : <=4.0. The reference r sumeet was not used to int erpret this result as normal/abnormal . [facility] HospitalZsgdhvnRJGOMSZGY1034-90-08 10:11:00 Test Item Value Reference Range Interpretation Comments Phosphorus (test code = Phosphorus) 3.4 2.5-4.5 N [facility] HospitalRpuhghrBXESDMZJR1355-43-36 10:11:00 Test Item Value Reference Range Interpretation Comments Magnesium Lvl (test code = Magnesium 1.9 1.8-2.4 N Lvl) [facility] HospitalSvaazpdUIEOPKILR9490-42-83 10:11:00 Test Item Value Reference Range Interpretation Comments A/G Ratio (test code = A/G Ratio) 0.9 0.7-1.6 N [facility] HospitalSmvvdzcGZMBGJBSI7412-63-07 10:11:00 Test Item Value Reference Range Interpretation Comments B/C Ratio (test code = B/C Ratio) 60 6-25 H [facility] HospitalQxjsctkHWHMOOCMN6026-34-23 10:11:00 Test Item Value Reference Range Interpretation Comments Globulin (test code = Globulin) 3.9 2.0-4.0 N [facility] HospitalZebwwbxTULHMIHQY0068-75-55 10:11:00 Test Item Value Reference Range Interpretation Comments AGAP (test code = AGAP) 16.3 10.0-20.0 N [facility] HospitalBrxlweeWQAGETBUX6765-38-39 10:11:00 Test Item Value Reference Range Interpretation Comments Glucose Lvl (test code = Glucose Lvl) 102 [facility] HospitalLysudubMFMAYNCRA4001-03-04 10:11:00 Test Item Value Reference Range Interpretation Comments Creatinine Lvl (test code = Creatinine 0.2 0.5-1.4 L Lvl) [facility] HospitalKxbjwsoOIUFTSCCO6156-44-06 10:11:00 Test Item Value Reference Range Interpretation Comments BUN (test code = BUN) 12 7-22 N [facility] HospitalZmmqribVGHSHABJO8746-02-09 10:11:00 Test Item Value Reference Range Interpretation Comments Albumin Lvl (test code = Albumin Lvl) 3.5 3.5-5.0 N [facility] HospitalSekmmxwUISDAHKOK2824-81-29 10:11:00 Test Item Value Reference Range Interpretation Comments Alk Phos (test code = Alk Phos) 84 39-136 N [facility] HospitalFdfemmgHJCXYQCDC7153-95-68 10:11:00 Test Item Value Reference Range Interpretation Comments ALT (test code = ALT) 39 See_Comment N [Auto mated message] The system which ge nerated this result transmit clarita reference range : <=65. The reference range was not used to interpr et this result as brendan l/abnormal. [facility] HospitalJufeymjYCRQMLGBN0169 10:11:00 Test Item Value Reference Range Interpretation Comments Total Protein (test code = Total 7.4 6.4-8.4 N Protein) [facility] HospitalAbouzqnIPOTDEULI7114-07-66 10:11:00 Test Item Value Reference Range Interpretation Comments AST (test code = AST) 56 See_Comment H [Auto mated message] The system which ge nerated this result transmit clarita reference range : <=37. The reference range was not used to interpr et this result as brendan l/abnormal. [facility] HospitalFnuwngpAETTFFIFL8816-13-38 10:11:00 Test Item Value Reference Range Interpretation Comments Bili Total (test code = Bili Total) 0.6 0.2-1.3 N [facility] HospitalIkldifpDWPGIOGNB7573-98-04 10:11:00 Test Item Value Reference Range Interpretation Comments CO2 (test code = CO2) 23 24-32 L [facility] HospitalXkapufdNSAMPYVGW2964-33-44 10:11:00 Test Item Value Reference Range Interpretation Comments Calcium Lvl (test code = Calcium Lvl) 8.8 8.5-10.5 N [facility] HospitalWprhisfYSUPIYTVW7667-13-16 10:11:00 Test Item Value Reference Range Interpretation Comments Sodium Lvl (test code = Sodium Lvl) 140 135-145 N [facility] HospitalQdxqestPUHTWPGOJ4830-14-55 10:11:00 Test Item Value Reference Range Interpretation Comments Potassium Lvl (test code = Potassium 5.3 3.5-5.1 H Lvl) [facility] HospitalFgiggepNEJVAHGRH5915-48-09 10:11:00 Test Item Value Reference Range Interpretation Comments Chloride Lvl (test code = Chloride Lvl) 106 95-109 N [facility] DallasDhdvfwdZORCXJMCHL1506-49-17 10:11:00 Test Item Value Reference Range Interpretation Comments Basophils # (test code 0.1 See_Comment N [Aut omated message] The = Basophils #) system which generated this result tra nsmitted reference range : <=0.2. The reference r sumeet was not used to int erpret this result as normal/abnormal . [facility] DallasApsvjaaKWPMEHOBUV7834-28-98 10:11:00 Test Item Value Reference Range Interpretation Comments Lymphocytes (test code = Lymphocytes) 23.5 20.0-40.0 N [facility] DallasCtxzsqpHQWJPCRNGM9881-92-65 10:11:00 Test Item Value Reference Range Interpretation Comments Segs (test code = Segs) 63.3 45.0-75.0 N [facility] DallasTcwrjnmKUCUYEPQBX6841-08-68 10:11:00 Test Item Value Reference Range Interpretation Comments Monocytes (test code = Monocytes) 9.8 2.0-12.0 N [facility] DallasUlhzquyYWSYOMEJBY6421-94-08 10:11:00 Test Item Value Reference Range Interpretation Comments Eosinophils # (test code 0.3 See_Comment N [A utomated message] The = Eosinophils #) system ic h generated this result tra nsmitted reference range : <=0.5. The reference r sumeet was not used to int erpret this result as normal/abnormal . [facility] DallasWxkdkntGZTHGJBRSS8712-10-36 10:11:00 Test Item Value Reference Range Interpretation Comments Monocytes # (test code 1.0 See_Comment H [Aut omated message] The = Monocytes #) system which generated this result tra nsmitted reference range : <=0.8. The reference r sumeet was not used to int erpret this result as normal/abnormal . [facility] DallasFsoebsnSMEJMQBMAM9579-96-84 10:11:00 Test Item Value Reference Range Interpretation Comments Lymphocytes # (test code = Lymphocytes 2.3 1.0-5.5 N #) [facility] DallasTmjmxkmCHYELOMYVZ3719-49-10 10:11:00 Test Item Value Reference Range Interpretation Comments Segs-Bands # (test code = Segs-Bands #) 6.1 1.5-8.1 N [facility] DallasOtlkwmiKIWYOTQCAQ4642-81-45 10:11:00 Test Item Value Reference Range Interpretation Comments Basophils (test code = 0.7 See_Comment N [Aut omated message] The Basophils) system which ge nerated this result tra nsmitted reference range : <=1.0. The reference r sumeet was not used to int erpret this result as normal/abnormal . [facility] DallasOogjreiLJRREUXAAW6879-78-12 10:11:00 Test Item Value Reference Range Interpretation Comments Eosinophils (test code = 2.7 See_Comment N [A utomated message] The Eosinophils) system which ge nerated this result tra nsmitted reference range : <=4.0. The reference r sumeet was not used to int erpret this result as normal/abnormal . [facility] DallasOnohrrnLDHFPACMNW0488-99-37 10:11:00 Test Item Value Reference Range Interpretation Comments MCH (test code = MCH) 34.5 pg 27.0-31.0 H [facility] DallasDncwmejXZCZBBGSTP0424-75-03 10:11:00 Test Item Value Reference Range Interpretation Comments MCHC (test code = MCHC) 35.3 32.0-36.0 N [facility] DallasGvgpiywFSHNPOQXLB4984-12-43 10:11:00 Test Item Value Reference Range Interpretation Comments MPV (test code = MPV) 9.0 7.4-10.4 N [facility] DallasNkooukbGIKXVSGNVA1826-18-97 10:11:00 Test Item Value Reference Range Interpretation Comments Platelet (test code = Platelet) 237 133-450 N [facility] DallasZslhfwzXMRKISLEFL2450-96-56 10:11:00 Test Item Value Reference Range Interpretation Comments RDW (test code = RDW) 13.4 11.5-14.5 N [facility] DallasNmzztftSPJHHVPSCM8710-16-88 10:11:00 Test Item Value Reference Range Interpretation Comments Hct (test code = Hct) 40.9 42.0-54.0 L [facility] DallasTqziamhIKZMFLHLBU8848-42-79 10:11:00 Test Item Value Reference Range Interpretation Comments MCV (test code = MCV) 97.8 80.0-94.0 H [facility] DallasZjdgjdwDRRCBNKLLX4160-50-74 10:11:00 Test Item Value Reference Range Interpretation Comments RBC (test code = RBC) 4.19 4.70-6.10 L [facility] DallasHxwxsmnDJRTCDEBBW3088-54-80 10:11:00 Test Item Value Reference Range Interpretation Comments Hgb (test code = Hgb) 14.4 14.0-18.0 N [facility] DallasMgnpeawQUIFSZWZTH1708-76-13 10:11:00 Test Item Value Reference Range Interpretation Comments WBC (test code = WBC) 9.7 3.7-10.[address] [facility]LihkqutNDKWJRWCED7603-50-51 10:11:00 Test Item Value Reference Range Interpretation Comments HIV 1/2 Ab (test code Negative *NA*(07/11/2011 = HIV 1/2 Ab) 04:11:00) [facility] HospitalPrhaclyIGCWDDNHM2389-52-88 13:02:00 Test Item Value Reference Range Interpretation Comments UDS Note (test code = See Note 7(07/10/2011 N UDS Note) 07:02:00) [facility] HospitalUvsivygXOKNQQYEK5212-00-14 13:02:00 Test Item Value Reference Range Interpretation Comments U Methadone Scr (test Negative code = U Methadone Scr) *NA*(07/10/2011 07:02:00) [facility] HospitalQkizqkxJYWJWATJO9309-10-89 13:02:00 Test Item Value Reference Range Interpretation Comments U Propoxyph Scr (test Negative code = U Propoxyph Scr) *NA*(07/10/2011 07:02:00) [facility] HospitalRyijovqHBEJFRMLF1302-82-95 13:02:00 Test Item Value Reference Range Interpretation Comments U Phencyc Scr (test Negative code = U Phencyc Scr) *NA*(07/10/2011 07:02:00) [facility] HospitalThijvftHHLRIZHKL4016-25-49 13:02:00 Test Item Value Reference Range Interpretation Comments U Opiate Scr (test Positive A code = U Opiate Scr) *ABN*(07/10/2011 07:02:00) [facility] HospitalXunccakVPVFSKIMO9051-48-08 13:02:00 Test Item Value Reference Range Interpretation Comments U Cannab Scr (test Negative code = U Cannab Scr) *NA*(07/10/2011 07:02:00) [facility] HospitalHwkgujmBAPTAKKHY0070-53-31 13:02:00 Test Item Value Reference Range Interpretation Comments U Cocaine Scr (test Negative code = U Cocaine Scr) *NA*(07/10/2011 07:02:00) [facility] HospitalQzxztspHIPAWTTEX4586-51-22 13:02:00 Test Item Value Reference Range Interpretation Comments U Benzodia Scr (test Positive A code = U Benzodia Scr) *ABN*(07/10/2011 07:02:00) [facility]BmhrfzuCRDULDWOL2964-90-96 13:02:00 Test Item Value Reference Range Interpretation Comments U Shi Scr (test code Negative *NA*(07/10/2011 = U Shi Scr) 07:02:00) [facility] CampusNessaonGMWODOWQB0415-13-90 13:02:00 Test Item Value Reference Range Interpretation Comments U Amph Scr (test code Negative *NA*(07/10/2011 = U Amph Scr) 07:02:00) [facility] DJRXCZBW2386-89-10 13:02:00 Test Item Value Reference Range Interpretation Comments U Histo Ag (test code None Detected N = U Histo Ag) 2(07/10/2011 07:02:00) [facility] IOSVDKLS4874-32-17 13:02:00 Test Item Value Reference Range Interpretation Comments U Hist Ag Intrp (test code = U Hist negative Ag Intrp) [facility]bwmcwqRHBETSRTQA0311-16-42 13:02:00 Test Item Value Reference Range Interpretation Comments UA Urobilinogen (test code *NA*(07/10/2011 0.1-1.0 = UA Urobilinogen) 07:02:00) [facility]FckroduSSKYOATGRQ2489-45-82 13:02:00 Test Item Value Reference Range Interpretation Comments Micro? (test code = Not Indicated Micro?) *NA*(07/10/2011 07:02:00) [facility] HospitalDpamyyyNYQAJVSCCI6548-79-48 13:02:00 Test Item Value Reference Range Interpretation Comments UA Spec Grav (test code = UA Spec Grav) 1.009 N [facility] HospitalVddisxlPAFJRIBXGS9099-72-94 13:02:00 Test Item Value Reference Range Interpretation Comments UA Protein (test code Negative mg/dL N = UA Protein) (07/10/2011 07:02:00) [facility]PelpzfwIPBHERQUEG6395-88-11 13:02:00 Test Item Value Reference Range Interpretation Comments UA pH (test code = UA pH) 6.5 5.0-8.0 N [facility]LfjjpgzOEBSNWHXCZ9902-12-94 13:02:00 Test Item Value Reference Range Interpretation Comments UA Glucose (test code Negative mg/dL = UA Glucose) *NA*(07/10/2011 07:02:00) [facility] HospitalYlhnwwyBGXKBGNHHB8150-18-16 13:02:00 Test Item Value Reference Range Interpretation Comments UA Blood (test code = Negative (07/10/2011 N UA Blood) 07:02:00) [facility]AbwdvshKYUPJZHBDJ9119-19-88 13:02:00 Test Item Value Reference Range Interpretation Comments UA Leuk Est (test Negative (07/10/2011 N code = UA Leuk Est) 07:02:00) [facility]JosjbedSHDOHGNXMC3518-08-90 13:02:00 Test Item Value Reference Range Interpretation Comments UA Nitrite (test code Negative (07/10/2011 N = UA Nitrite) 07:02:00) [facility] HospitalBdyfvskUWSRWJNJGC0797-23-28 13:02:00 Test Item Value Reference Range Interpretation Comments UA Ketones (test code Negative mg/dL = UA Ketones) *NA*(07/10/2011 07:02:00) [facility] HospitalTdnewmcIRXRTALIEO9784-34-67 13:02:00 Test Item Value Reference Range Interpretation Comments UA Bili (test code = Negative *NA*(07/10/2011 UA Bili) 07:02:00) [facility] HospitalKjnfmdzZPNULVRUEI2061-46-11 13:02:00 Test Item Value Reference Range Interpretation Comments UA Turbidity (test code = Clear (07/10/2011 N UA Turbidity) 07:02:00) [facility] HospitalTegysmzAPXKZUDNBV0293-59-74 13:02:00 Test Item Value Reference Range Interpretation Comments UA Color (test code = Light Yellow UA Color) *NA*(07/10/2011 07:02:00) [facility] HospitalOtvvnyvRHADOUCIN4754-26-90 09:00:00 Test Item Value Reference Range Interpretation Comments Lactic Acid Lvl (test code = Lactic 1.4 0.5-2.2 N Acid Lvl) [facility] HospitalQkvgdtmVFGHQFHJS4153-55-36 09:00:00 Test Item Value Reference Range Interpretation Comments TSH (test code = TSH) 1.260 0.360-3.740 N [facility] HospitalDmmymakXGBXPLPHL7446-93-55 09:00:00 Test Item Value Reference Range Interpretation Comments Magnesium Lvl (test code = Magnesium 2.0 1.8-2.4 N Lvl) [facility] HospitalUglpdosVQWNMVSBZ9163-91-32 09:00:00 Test Item Value Reference Range Interpretation Comments Phosphorus (test code = Phosphorus) 3.0 2.5-4.5 N [facility] HospitalPhumlbsECLEJSWWC2050-17-44 09:00:00 Test Item Value Reference Range Interpretation Comments A/G Ratio (test code = A/G Ratio) 1.2 0.7-1.6 N [facility] HospitalOyazbdrSAVKVUNLP2376-27-14 09:00:00 Test Item Value Reference Range Interpretation Comments AGAP (test code = AGAP) 15.2 10.0-20.0 N [facility] CampusCnslwpeAWTNTMOFH6958-33-48 09:00:00 Test Item Value Reference Range Interpretation Comments B/C Ratio (test code = B/C Ratio) 12 6-25 N [facility] HospitalYzsdaztIICLENAHA1554-02-52 09:00:00 Test Item Value Reference Range Interpretation Comments Globulin (test code = Globulin) 3.2 2.0-4.0 N [facility] HospitalDacqesgQSMGCLWIU8459-57-92 09:00:00 Test Item Value Reference Range Interpretation Comments ALT (test code = ALT) 37 See_Comment N [Auto mated message] The system which ge nerated this result transmit clarita reference range : <=65. The reference range was not used to interpr et this result as brendan l/abnormal. [facility] CampusTsvcrguLNSRQRFUP5793-42-55 09:00:00 Test Item Value Reference Range Interpretation Comments CO2 (test code = CO2) 27 24-32 N [facility] CampusWpmgpddGPWATUCDI0761-42-44 09:00:00 Test Item Value Reference Range Interpretation Comments Calcium Lvl (test code = Calcium Lvl) 8.6 8.5-10.5 N [facility] CampusQqmwvthXUYRTSPIC0328-29-56 09:00:00 Test Item Value Reference Range Interpretation Comments AST (test code = AST) 22 See_Comment N [Auto mated message] The system which ge nerated this result transmit clarita reference range : <=37. The reference range was not used to interpr et this result as brendan l/abnormal. [facility] CampusZyoqowsMNEDCWFVJ4253-85-30 09:00:00 Test Item Value Reference Range Interpretation Comments Total Protein (test code = Total 6.9 6.4-8.4 N Protein) [facility] HospitalAakvkjeVSRSEITQJ0843-16-24 09:00:00 Test Item Value Reference Range Interpretation Comments Chloride Lvl (test code = Chloride Lvl) 105 95-109 N [facility] CampusAlywgruVHBEBUBWE9484-34-74 09:00:00 Test Item Value Reference Range Interpretation Comments Potassium Lvl (test code = Potassium 4.2 3.5-5.1 N Lvl) [facility] HospitalRwziaghWAKVHHUEC5834-17-43 09:00:00 Test Item Value Reference Range Interpretation Comments Bili Total (test code = Bili Total) 0.3 0.2-1.3 N [facility]nhofwkSGJNQMWDJ0326-71-41 09:00:00 Test Item Value Reference Range Interpretation Comments Albumin Lvl (test code = Albumin Lvl) 3.7 3.5-5.0 N [facility] HospitalLnxbxybPYBFOTMPL6684-39-56 09:00:00 Test Item Value Reference Range Interpretation Comments BUN (test code = BUN) 11 7-22 N [facility] HospitalGnabcphTMJMUOXDS4374-06-09 09:00:00 Test Item Value Reference Range Interpretation Comments Creatinine Lvl (test code = Creatinine 0.9 0.5-1.4 N Lvl) [facility] HospitalGswlwffGVHSDOZTN1268-51-87 09:00:00 Test Item Value Reference Range Interpretation Comments Alk Phos (test code = Alk Phos) 87 39-136 N [facility] HospitalEtpapurQCTSKREAQ8273-77-62 09:00:00 Test Item Value Reference Range Interpretation Comments Sodium Lvl (test code = Sodium Lvl) 143 135-145 N [facility] HospitalRsbisprAIMOOJKHC4026-29-69 09:00:00 Test Item Value Reference Range Interpretation Comments Glucose Lvl (test code = Glucose Lvl) 102 [facility] DallasQpfatqdIGGUKCYZDA0702-00-55 09:00:00 Test Item Value Reference Range Interpretation Comments Eosinophils # (test code 0.4 See_Comment N [A utomated message] The = Eosinophils #) system whic h generated this result tra nsmitted reference range : <=0.5. The reference r sumeet was not used to int erpret this result as normal/abnormal . [facility] DallasOipjhapNOEDMZYESI9533-33-61 09:00:00 Test Item Value Reference Range Interpretation Comments Eosinophils (test code = 3.0 See_Comment N [A utomated message] The Eosinophils) system which ge nerated this result tra nsmitted reference range : <=4.0. The reference r sumeet was not used to int erpret this result as normal/abnormal . [facility] DallasYvxessgVWIIDPVVOX6977-73-26 09:00:00 Test Item Value Reference Range Interpretation Comments Lymphocytes # (test code = Lymphocytes 2.0 1.0-5.5 N #) [facility] DallasGchvvvwZQZGYNJPOM1843-86-47 09:00:00 Test Item Value Reference Range Interpretation Comments Segs-Bands # (test code = Segs-Bands #) 8.0 1.5-8.1 N [facility] DallasTzmhymmPYDKTXAIAG5990-40-42 09:00:00 Test Item Value Reference Range Interpretation Comments Monocytes # (test code 1.3 See_Comment H [Aut omated message] The = Monocytes #) system which generated this result tra nsmitted reference range : <=0.8. The reference r sumeet was not used to int erpret this result as normal/abnormal . [facility] DallasQxlqgejBFEDSIRZQL1064-93-92 09:00:00 Test Item Value Reference Range Interpretation Comments Macrocyte (test code = 1+ *ABN*(07/10/2011 A Macrocyte) 03:00:00) [facility] DallasFjewfpuXXQXDCCINN8950-30-56 09:00:00 Test Item Value Reference Range Interpretation Comments Monocytes (test code = Monocytes) 11.0 2.0-12.0 N [facility] DallasGrazsfdGZOUMHTMSM6998-58-28 09:00:00 Test Item Value Reference Range Interpretation Comments Basophils (test code = 0.3 See_Comment N [Aut omated message] The Basophils) system which ge nerated this result tra nsmitted reference range : <=1.0. The reference r sumeet was not used to int erpret this result as normal/abnormal . [facility] DallasIsoabfrFWVGURNDIL5819-96-93 09:00:00 Test Item Value Reference Range Interpretation Comments Basophils # (test code 0.0 See_Comment N [Aut omated message] The = Basophils #) system which generated this result tra nsmitted reference range : <=0.2. The reference r sumeet was not used to int erpret this result as normal/abnormal . [facility] DallasKqgxtyxTIGQZWGJNB5976-99-22 09:00:00 Test Item Value Reference Range Interpretation Comments Segs (test code = Segs) 68.9 45.0-75.0 N [facility] DallasCmcggrmKXXCRRMJCK2149-72-95 09:00:00 Test Item Value Reference Range Interpretation Comments Lymphocytes (test code = Lymphocytes) 16.8 20.0-40.0 L [facility] DallasRvgejcrCUPABTLTQK6464-26-21 09:00:00 Test Item Value Reference Range Interpretation Comments RDW (test code = RDW) 13.4 11.5-14.5 N [id number] 09:00:00 Test Item Value Reference Range Interpretation Comments Platelet (test code = Platelet) 188 133-450 N [facility] DallasBsiazrjPJXMTEHSJC6391-67-42 09:00:00 Test Item Value Reference Range Interpretation Comments MPV (test code = MPV) 9.5 7.4-10.4 N [facility] DallasElvxxwaHAOOXCUABV9515-70-63 09:00:00 Test Item Value Reference Range Interpretation Comments MCH (test code = MCH) 34.2 pg 27.0-31.0 H [facility] DallasKyzxobfRUWZKGECOV4775-16-92 09:00:00 Test Item Value Reference Range Interpretation Comments MCHC (test code = MCHC) 34.0 32.0-36.0 N [facility] DallasNocilthIPVJENBLDK9388-92-17 09:00:00 Test Item Value Reference Range Interpretation Comments MCV (test code = MCV) 100.5 80.0-94.0 H [facility] DallasOsxvpjpVNXLTOIINN4425-00-84 09:00:00 Test Item Value Reference Range Interpretation Comments Hct (test code = Hct) 39.9 42.0-54.0 L [facility] DallasPidfajlWHSUYXNMFY4367-33-21 09:00:00 Test Item Value Reference Range Interpretation Comments Hgb (test code = Hgb) 13.6 14.0-18.0 L [facility] DallasFyyrqblNYWFEDWEUY3479-12-32 09:00:00 Test Item Value Reference Range Interpretation Comments RBC (test code = RBC) 3.97 4.70-6.10 L [facility] DallasLyeaebxOWYGIMSTRQ3510-13-25 09:00:00 Test Item Value Reference Range Interpretation Comments WBC (test code = WBC) 11.7 3.7-10.4 [facility]Qps[facility]azaDiylokprsujv1857-14-71 08:33:00 Test Item Value Reference Range Interpretation Comments Culture: Respiratory w/Gram Stain (test code = Culture: Respiratory w/Gram Stain) [facility]qp[facility]SC7844-55-94 01:18:00 Test Item Value Reference Range Interpretation Comments Bili Direct (test code 0.1 See_Comment N [Aut omated message] The = Bili Direct) system which generated this result tra nsmitted reference range : <=0.3. The reference r sumeet was not used to int erpret this result as brendan l/abnormal. [facility] HospitalWuglrarFWWUYGMIX9931-16-90 01:18:00 Test Item Value Reference Range Interpretation Comments Bili Indirect (test 0.1 See_Comment N [Automa clarita message] The code = Bili Indirect) system which generated this result tra nsmitted reference range : <=1.0. The reference r sumeet was not used to int erpret this result as normal/abnormal . [facility] 01:18:00 Test Item Value Reference Range Interpretation Comments LDH (test code = LDH) 313 98-192 H [facility] HospitalJsdpypiPSAEVUQHP5117-91-59 22:35:00 Test Item Value Reference Range Interpretation Comments Lactic Acid Lvl (test code = Lactic 0.7 0.5-2.2 N Acid Lvl) [facility]QS5874[facility]69-83 22:35:00 Test Item Value Reference Range Interpretation Comments Plt Morph (test code = Normal (07/09/2011 N Plt Morph) 16:35:00) [facility]RabkwztYGOEXHUQFU0768-33-77 22:35:00 Test Item Value Reference Range Interpretation Comments RBC Morph (test code = Normal (07/09/2011 N RBC Morph) 16:35:00) [facility]VzyjxqlNigzskvcazhb8773-79-02 22:15:00 Test Item Value Reference Range Interpretation Comments Culture: Blood (test code = Culture: Blood) [facility] MISC - [id number] 13:02:00 Test Item Value Reference Range Interpretation Comments U Legion Ag (test code Negative 1(07/09/2011 N = U Legion Ag) 07:02:00) [facility]
[2021-05-16] MEDS ORDERED: FUROSEMIDE 40 MG TABLET PO ONE (20:43)
[2021-05-16] MEDS ORDERED: NITROGLYCERIN 0.4 MG/TAB SL PRN (20:44)
[2021-05-16 20:50] VITALS: BMI 40.4
[2021-05-16 21:21] LABS: Urine Appearance CLEAR (Clear); Urine Bilirubin NEGATIVE (Negative); Urine Blood NEGATIVE (Negative); Urine Color YELLOW (Yellow); Urine Glucose NEGATIVE (Negative); Urine Protein NEGATIVE (Negative); Urine Specific Gravity 1.025 (1.005-1.030)
[2021-05-16] MEDS: ACETAMINOPHEN 500 MG TAB PO PRN (21:39)
[2021-05-16] MEDS: ATORVASTATIN 80 MG TAB PO SCH (21:39)
[2021-05-16 22:18] LABS: Urine Bacteria 20-50 /HPF (NONE SEEN); Urine RBC <5 /HPF (NONE SEEN)
[2021-05-17] MEDS ORDERED: ALBUTEROL 2.5 MG/3 ML NEB SOL NEB SCH (02:00)
[2021-05-17 07:04] LABS: Absolute Lymphocytes (CBC) 1.9 K/uL (0.7-4.9); Hematocrit 41.4 % (39.6-49.0); Lymphocytes % 21.6 % (15.3-44.8); MPV 9.6 fL (7.6-11.3); RBC Red Blood Cell Count 4.46 M/uL (4.33-5.43)
[2021-05-17 07:27] LABS: BUN Blood Urea Nitrogen 16 mg/dL (7-18); Bicarbonate 37 mmol/L (21-32); Glucose Level 108 mg/dL (74-106); Magnesium 2.2 mg/dL (1.8-2.4); Potassium 4.3 mmol/L (3.5-5.1); Prealbumin 14.2 mg/dL (20-40); Sodium Level 138 mmol/L (136-145)
[2021-05-17] MEDS: ACETAMINOPHEN 500 MG TAB PO PRN ×2 (08:22→13:11)
[2021-05-17] MEDS: ASPIRIN EC 81 MG TAB PO SCH (08:23)
[2021-05-17] MEDS: lisinopriL 10 MG TAB PO SCH (08:23)
[2021-05-17] MEDS: CLOPIDOGREL 75 MG TABLET PO SCH (08:24)
[2021-05-17] MEDS: FUROSEMIDE 40 MG TABLET PO SCH (08:24)
[2021-05-17] MEDS: carvediloL 6.25 MG TAB PO SCH ×2 (08:24→20:19)
[2021-05-17] MEDS ORDERED: DOCUSATE NA/SENNA CONC 1 TAB PO PRN (14:33)
[2021-05-17] MEDS ORDERED: D50W 25 GM/50 ML SYRINGE IV PRN (14:37)
[2021-05-17] MEDS ORDERED: GLUCAGON 1 MG/VIAL IM PRN (14:37)
[2021-05-17] MEDS: HYDROCODONE/APAP 5/325 MG TAB PO PRN (15:48)
[2021-05-17] MEDS: INSULIN -REGULAR HUMAN 50 UNIT/0.5 ML ML SQ SCH ×2 (16:19→20:20)
--- NOTE | 2021-05-17 16:27 | R.HP ---
HISTORY AND PHYSICAL FACILITY: [facility] ENCOUNTER DATE AND TIME: 05/17/2021 16:19 (BUS GIRL) MR#: [id number] NAME Owen Duarte ADDRESS: [id number] [address] CITY: [place] STATE: [place]IP [id number] PHONE: DATE OF : 1970 AGE: 51 SSN# [id number] GENDER: Male DEXTERITY Unknown dexterity MARITAL STATUS Single (Never ) RACE Unknown race PRE-HOSPITAL LIVING SETTING 01 - Home (private home/apt. board/care, assisted living, long-term, transitional living) PRE-HOSPITAL LIVING WITH Family/Relatives ENCOUNTER PHYSICIAN: Dr. Meño Piper M.D. REFERRING DOCTOR: Dr. Allan Carrillo DATE OF ADMISSION: 05/16/2021 20:11 (BUS GIRL) REFERRING FACILITY [facility] HOME TYPE AND DETAILS: Type of home: mobile home # of steps to enter the residence: 5 # of steps within the residence: 2 # of levels in the residence: 1 ONSET DATE: 05/08/2021 PRIMARY DIAGNOSIS-RELATED SURGERIES: PCI with stent to proximal LAD and D1 AM 05/08/2021 Arterial Line Insertion Procedure 05/08/2021 HISTORY OF PRESENT ILLNESS (HPI): Pt. is a 51 yo male of unknown race. On 05/08/2021 he was admitted to [facility] with diagnosis STEMI - Acute ST elevation myocardi al infarction. His impairment category is Cardiac 09 - Cardiac Disorders (09). Pre-morbidly, Pt. was independent/mod-I in Locomotion, Safety Awareness, Balance, Social Cognition, T ransfers Control, Sphincter Control, Self-Care, Communication, and Endurance; and he had good Locomot ion, Safety Awareness, Social Cognition, Transfers Control, Balance, Sphincter Control, Self-Care, Co mmunication, and Endurance. Currently, he has deficits of Locomotion, Safety Awareness, Balance, Transfers Control, Self-Care, an d Endurance. Pt. is now referred to [facility] for acute in-patient rehabilitation in order to maximize patient's functional independence in activities of daily living, strength, ROM, and mobi lity. Patient has realistic goal of being discharged at assistance level partial assist to independent to reside at Home with Family/Relatives. Mr. Owen Duarte is a 51 yo male that lives in a mobile home with his spouse, per OT note. Mr. Cisco richards has PMH of: HTN, DM2, HLD, COPD, morbid obesity, seizure disorder, degenerative disk disease, hx of TBI, hx of meningitis, hx of hemorrhagic stroke, and polysubstance abuse (oxycodone, amphetamines, c ocaine, BZD) who presented for STEMI on 05/08/2021. He had a PCI with stent to proximal LAD and D1 AM of 05/08/2021. Mr. Duarte was briefly on dopamine and levophed following procedure but was stopped o n pressors 05/09/2021. Mr. Duarte was transferred to [facility] on 05/[facility]/2021 where he required IV diuresis and duonebs for wheezing. Mr. Duarte, per therapy notes, prior to hospitalization was independent wi th all tasks. Mr. Duarte is currently working with OT/PT and demonstrates fair progress towards goals , however, continues to demonstrate deficits. Mr. Duarte's deficits are the following: ambulation def icits, balance deficits, decreased activity tolerance, functional mobility, pain, transfer deficits, safety, etc. Without an acute inpatient rehab approach, Mr. Duarte risks an unsafe discharge, increas ed weakness, increased fall risk, poor balance, difficulty with activity tolerance, poor pain control , increased caregiver burden, unsafe xfers and functional mobility. With an interdisciplinary approa ch by acute IRF, pt. demonstrates great potential and motivation to get stronger, safer, and more ind ependent to return to [place]. Pt demonstrates a strong need for an intensive team: rehab doctor, nurse , director social, and therapist to meet functional and medical goals. It is reasonable and necessary f or the patient to come to acute IRF to safely dc. Pt is medically stable but in need of 24 hour nursi ng, doctor supervision, and oversight while receiving active and ongoing intensive (OT/PT/ST). The pa tient is reasonably expected to participate in 3hours of therapy a day/15 hours a week. COVID-19 scre ening performed. Patient denies a new onset of fever, cough,difficulty breathing, sore throat, body aches and non-allergy nasal congestion in the past 24 hours. Patient denies travel outside of [place] i n the past 14days. Patient denies any contact with someone who has a confirmed diagnosis of or is und er investigation for COVID-19 in the past 14 days. Patient has been tested negative for COVID- 19 on 05/16/2021. MEDICATION ALLERGIES: SULFUR ENVIRONMENTAL ALLERGIES: - Substance Allergies None Known - Other Allergies None Known PAST MEDICAL HISTORY: COPD DM2 HTN HLD Morbid obesity seizure disorder degenerative disk disease hx of TBI hx of meningitis hx of hemorrhagic stroke polysubstance abuse (oxycodone, amphetamines, cocaine, BZD) STEMI PAST SURGICAL HISTORY: PCI with stent to proximal LAD and D1 AM 05/08/2021 Arterial Line Insertion Procedure 05/08/2021 C4-C7 DECTOMY 1996 RIGHT WRIST SURGERY ( 4 MONTHS AGO) SOCIAL HISTORY: - Home Living Family/Relatives REVIEW OF SYSTEMS: - Gen No Chills Fatigue No Fever - Eyes No Double Vision No itchiness - ENMT No Difficulty Swallowing - CVS Chest Discomfort No Chest Pain No Fatigue No Weight Gain - Resp No Cough Shortness of Breath - GI Continent No Abdominal Pain No Constipation No Diarrhea - Continent No Kidney Pain No Painful Urination No Urinary Urgency - MSK No Joint Pain No Muscle Cramps No Stiffness - Skin No Itching No Rash No Suspicious Lesions - Neuro No Coordination Difficulty No Difficulty with Concentration No Memory Loss No Seizures Weakness - Psych No Anxiety No Depression No HIV Exposure No Persistent Infections No Seasonal Allergies - Endo No Cold/Heat Intolerance No Excessive Hunger No Excessive Thirst No Excessive Urination PHYSICAL EXAM - Gen Alert and awake Lying in bed No apparent distress Oriented to: person, time, and place - Skin No skin breakdown. Normacephalic - Eyes No abnormalities - ENMT No abnormalities - Neck No abnormalities - CVS RRR - Chest No abnormalities - Resp Clear to auscultation - Abd Soft - GI Obese Deferred - No abnormalities - Ext No significant edema - MSK 4+/5 weakness in both lower extremities. - Neuro No focal deficits - Psych No abnormalities VITAL SIGNS Temperature: 97.8 F SBP/DBP: 128/83 Pulse: 83 Resp: 16 NURSING: - Shower allowing shower PRECAUTIONS: - Fall Precaution Bed alarm TABS alarm Wheel chair alarm - Skin Breakdown Risk skin assessments - Seizure Precaution Padding of bed rails, bed alarm, monitor seizure medication levels as necessary - Cardiac Precaution Monitor blood pressure, heart rate, lower extremity edema, notify MD for shortness of breath or chest pain Monitor patient for excessive elevation of heart rate and blood pressure during therapy - Safety Fall risk assist with xfers/STS - CVA risk Monitor vitals and report any changes to MD - Respiratory Monitor and assess patient regularly - DVT prevention Follow doctors orders for prevention ACTIVITIES OOB only with supervision QI SCORES: - Self-Care A. Eating 04-Supervision or touching assistance B. Oral hygiene 04-Supervision or touching assistance C. Toileting hygiene 04-Supervision or touching assistance E. Shower/bathe self 03-Partial/moderate assistance F. Upper body dressing 04-Supervision or touching assistance G. Lower body dressing 03-Partial/moderate assistance H. Putting on/taking off footwear 03-Partial/moderate assistance - Mobility A. Roll left and right 03-Partial/moderate assistance B. Sit to lying 03-Partial/moderate assistance C. Lying to sitting on side of bed 03-Partial/moderate assistance D. Sit to stand 03-Partial/moderate assistance E. Chair/kci-dw-dfjbh transfer 03-Partial/moderate assistance F. Toilet transfer 04-Supervision or touching assistance G. Car transfer 88-Not attempted due to medical condition or safety concerns I. Walk 10 feet 04-Supervision or touching assistance J. Walk 50 feet with two turns 04-Supervision or touching assistance K. Walk 150 feet 04-Supervision or touching assistance L. Walking 10 feet on uneven surfaces 88-Not attempted due to medical condition or safety concerns M. 1 step (curb) 88-Not attempted due to medical condition or safety concerns N. 4 steps 88-Not attempted due to medical condition or safety concerns O. 12 steps 88-Not attempted due to medical condition or safety concerns P. Picking up object 88-Not attempted due to medical condition or safety concerns R. Wheel 50 feet with two turns 09-Not applicable S. Wheel 150 feet 09-Not applicable - Bladder and Bowel Bladder continence Bowel continence - Endurance Fair - Balance Fair - Safety Awareness Fair CURRENT FUNC. DEFICITS: Self-Care, Mobility, Endurance, Balance, and Safety Awareness MEDICATIONS: - Other See attached MAR (Medication Administration Record) ASSESSMENT: Pt. is a 51 yo male of unknown race.On 05/08/2021 he was admitted to [facility] with diagnosis STEMI - Acute ST elevation myocardial infarction.His impairment category is Cardiac 09 - Cardiac Di jaya ().Pre-morbidly, Pt. was independent/mod-I in Locomotion, Safety Awareness, Balance, Social Cognition, Transfers Control, Sphincter Control, Self-Care, Communication, and Endurance; and he had good Locomotion, Safety Awareness, Social Cognition, Transfers Control, Balance, Sphincter Control, Self-Care, Communication, and Endurance.Currently, he has deficits of Locomotion, Safety Awareness, B alance, Transfers Control, Self-Care, and Endurance.Pt. is now referred to [facility] for acute in-patient rehabilitation in order to maximize patient's functional independence in activities of daily living, strength, ROM, and mobility.- Rehab Goal Patient has realistic goal of being discharged at assistance level partial assist to independent to reside at Home with Family/Relatives. Mr. Owen Duarte is a 51 yo male that lives in a mobile home with his spouse, per OT note. Mr. Cisco richards has PMH of: HTN, DM2, HLD, COPD, morbid obesity, seizure disorder, degenerative disk disease, hx of TBI, hx of meningitis, hx of hemorrhagic stroke, and polysubstance abuse (oxycodone, amphetamines, c ocaine, BZD) who presented for STEMI on 05/08/2021. He had a PCI with stent to proximal LAD and D1 AM of 05/08/2021. Mr. Duarte was briefly on dopamine and levophed following procedure but was stopped o n pressors 05/09/2021. Mr. Duarte was transferred to [facility] on 05/09/2021 where he required IV diuresis and duonebs for wheezing. Mr. Duarte, per therapy notes, prior to hospitalization was independent wi th all tasks. Mr. Duarte is currently working with OT/PT and demonstrates fair progress towards goals , however, continues to demonstrate deficits. Mr. Duarte's deficits are the following: ambulation def icits, balance deficits, decreased activity tolerance, functional mobility, pain, transfer deficits, safety, etc. Without an acute inpatient rehab approach, Mr. Duarte risks an unsafe discharge, increas ed weakness, increased fall risk, poor balance, difficulty with activity tolerance, poor pain control , increased caregiver burden, unsafe xfers and functional mobility. With an interdisciplinary approa ch by acute IRF, pt. demonstrates great potential and motivation to get stronger, safer, and more ind ependent to return to [facility]. Pt demonstrates a strong need for an intensive team: rehab doctor, nurse , director social, and therapist to meet functional and medical goals. It is reasonable and necessary f or the patient to come to acute IRF to safely dc. Pt is medically stable but in need of 24 hour nursi ng, doctor supervision, and oversight while receiving active and ongoing intensive (OT/PT/ST). The pa cal is reasonably expected to participate in 3hours of therapy a day/15 hours a week. COVID-19 scre ening performed. Patient denies a new onset of fever, cough,difficulty breathing, sore throat, body aches and non-allergy nasal congestion in the past 24 hours. Patient denies travel outside of [place] i the past 14days. Patient denies any contact with someone who has a confirmed diagnosis of or is und er investigation for COVID-19 in the past 14 days. Patient has been tested negative for COVID- 19 on 05/16/2021.REHAB PLAN: - Physical Therapy Gait dysfunction - to improve, our physical therapists will perform initial evaluation of pt's status upon admission and devise an individualized program for Gait Training, and Wheel Chair mobility Inability to transfer - to improve, our physical therapists will perform initial evaluation of pt's s tatus upon admission and devise an individualized program for Bed mobility Need for home safety evaluation - to improve, our physical therapists will perform initial evaluation of pt's status upon admission and devise an individualized program for Home Evaluation Need in caregiver upon discharge - to improve, our physical therapists will perform initial evaluatio n of pt's status upon admission and devise an individualized program for Caregiver Training New precaution - to improve, our physical therapists will perform initial evaluation of pt's status u sushma admission and devise an individualized program for Patient precaution education Edema - to improve, our physical therapists will perform initial evaluation of pt's status upon admi ssion and devise an individualized program for Elevation Training, and Lymphedema Therapy Poor balance - to improve, our physical therapists will perform initial evaluation of pt's status upo n admission and devise an individualized program for Balance Training Poor endurance - to improve, our physical therapists will perform initial evaluation of pt's status u sushma admission and devise an individualized program for Endurance Training Weakness - to improve, our physical therapists will perform initial evaluation of pt's status upon ad mission and devise an individualized program for Aquatic Therapy, Neuromuscular Reeducation, and Stre ngthening Achieving independence - to improve, our physical therapists will perform initial evaluation of pt's status upon admission and devise an individualized program for Community Reintegration Activities - Occupational Therapy ADL deficits - to improve, our occupation therapists will perform initial evaluation of pt's status u sushma admission and devise an individualized program for Bathing, Bed mobility, Community Reintegration , Cooking, Dressing, Eating, Fine Motor Skills, Grooming, Homemaking, Kitchen Mobility, Laundry, Jessica ent Education, Safety Awareness, Splinting - Positioning, Transfers(Toilet, Tub, Shower), and Wheel C hair Management Need for care management associate - to improve, our occupation therapists will perform initial evaluation of pt's s tatus upon admission and devise an individualized program for Caregiver Training Weakness - to improve, our occupation therapists will perform initial evaluation of pt's status upon admission and devise an individualized program for Aquatic Therapy, Balance, Endurance, UE ROM, and U E strengthening MEDICAL PLAN: - Diet Type Start Heart Healthy Diabetic Diet - Diet - Liquid Texture Start Regular - Tube Feed Start N/A - Skin Breakdown Risk skin assessments - Seizure Precaution Padding of bed rails, bed alarm, monitor seizure medication levels as necessary - Cardiac Precaution Monitor blood pressure, heart rate, lower extremity edema, notify MD for shortness of breath or ches t pain Monitor patient for excessive elevation of heart rate and blood pressure during therapy - Fall Precaution Bed alarm TABS alarm Wheel chair alarm - Other See attached MAR (Medication Administration Record) - Diet - Solid Texture Regular - Shower shower - Safety Fall risk assist with xfers/STS - CVA risk Monitor vitals and report any changes to MD - Respiratory Monitor and assess patient regularly - DVT prevention Follow doctors orders for prevention DISCHARGE PLAN: - Estimated Length of Stay (days) 10. - Consensus on plan Discharge plan has been discussed with primary caregiver. Patient/Family is in agreement with the hubert n. Primary caregiver is in agreement with the plan. - Patient/Family Goals Return home independently. - Planned Living Setting Upon Discharge Home, to live with Family/Relatives. Transitional Living. SIGNATURE PANEL: (BUS GIRL)
--- NOTE | 2021-05-17 16:29 | PAPE ---
POST ADMISSION PHYSICIAN EVALUATION PATIENT: [facility] MR# [id number] REFERRING DOCTOR Dr. Allan Carrillo EVALUATION DATE AND TIME 05/17/2021 16:27 (CHECK EXAMINER) NAME Owen Duarte DATE OF 1970 AGE 51 PHONE SSN# [id number] GENDER male EVALUATING PHYSICIAN Dr. Meño Piper M.D. ADMISSION DIAGNOSIS: STEMI - Acute ST elevation myocardial infarction ONSET DATE 05/08/2021 POST-ADMISSION FUNCTIONAL/MEDICAL STATUS: - Bladder Same accident frequency: 7-Ind - No accidents in the past 7 days - Bowel Same accident frequency: 7-Ind - No accidents in the past 7 days - Walking Same score based on distance walked: 0(N/A) Same score based on distance walked: 3(>=150ft) - Wheelchair Same score based on distance traveled: 0(N/A) STATUS CHANGE EVALUATION: No change in Functional or Medical Status is identified compared with Pre-Admission screening. PATIENT NEEDS CLOSE MEDICAL SUPERVISION BY A REHABILITATION PHYSICIAN FOR: Coordination of Treatment Team Medical and Co-Morbidity Management Pain Management Respiratory/Airway Management medication management PATIENT REQUIRES 24X7 REHAB NURSING FOR MEDICAL AND FUNCTIONAL MGT. OF THE FOLLOWING DEFICITS: Disease Management Medication Management Patient/Family Education Providing Safe Environment ADL's Ambulation Pain Management Respiratory/Airway Management Skin Integrity Transfers PATIENT REQUIRES INTENSIVE, COORDINATED INTERDISCIPLINARY APPROACH TO REHAB: Arranging Home Equipment/Services Discharge Planning Family Intervention/Training Foster Care Therapist/Case Management LIST OF IDENTIFIED AND POTENTIAL PROBLEMS: Alteration in leisure activities Bladder, Incontinence Bowel, Incontinence Falls, Actual or Potential Infection, Actual or Potential Mobility Impaired Pain, Alteration in Comfort Self Care Deficit Urinary Tract Infection (UTI), Actual or Potential RISK FOR COMPLICATIONS - UTI Monitor for frequency, burning, discomfort, or incontinence. - CVA Monitor signs and symptoms of stroke. - DVT Routine checks/assessments of pt. ROBERT hose; sequential compression device as needed/prescribed. - Skin Breakdown Nursing will assess skin daily using assessment tool and will place on Skin Breakdown Precautions as Indicated per protocol. - Pain Clinical staff will assess patient's pain level every shift per protocol to monitor for pain manageme nt effectiveness. Educate patient on pain management strategies. Medications will be given and the pa in level reassessed. Clinical Staff may employ other methods such as: massage, distraction, decrease stimulus, etc. as needed. - Falls Educated pt on fall prevention strategies to reduce/eliminate fall risk. Patient will be evaluated fo r Fall Precautions and will be placed on Fall Precautions as indicated per protocol. - Impaired Safety Educate patient on safety awareness strategies. Educate patient on safety hazards. - Bleeding Monitor lab values. STEMI patient's checked for change of status. - Limb Ischemia Assess circulation each shift. Report any changes to MD. - Sespsis Monitor lab values. - Respiratory Monitor O2 sats. Patient on 4L O2 via NC. INTERVENTIONS - Jaky Continue to monitor for vision changes. Patient has hx of seizure disorder. Patient has hx of hemorrh agic stroke. Patient has hx of TBI - all of the above per MD progress note 05/14/2021. Continue with medication as prescribed by MD - per MD progress note 05/14/2021. - HLD Lipid panel - per MD progress note on 05/14/2021. - HTN Restart home lisinopril 10 mg daily - per MD progress note 05/14/2021. - Respiratory COPD on 4L home O2. Continue duonebs - all of the above per MD progress note 05/14/2021. - FEN/GI: - Renal RANDY (resolved). SCr 1.38 on admission (unclear baseline). Improved to 0.88 with fluid resuscitation. Continue to trend BMP. Strict I/Os - all of the above per MD progress note 05/14/2021. - DM2 Diet Controlled. A1c 6.6%. SSI - all of the above per MD progress note 05/14/2021. PATIENT COULD BE AT RISK FOR COMPLICATIONS FROM ADVERSE MEDICAL CONDITIONS DUE TO HIS/HER COMORBIDITI ES AND THE RIGORS OF THE INTENSIVE REHABILLITATION PROGRAM. METHODS OR INTERVENTIONS TO AVOID COMPLIC ATIONS INCLUDE: - Infection Clinical staff to assess and manage the signs and symptoms of infection including fever, redness, war mth, etc. - Urinary Tract Infection - Falls Patient will be evaluated for Fall Precautions and will be placed on Fall Precautions as indicated pe r protocol. - Skin Breakdown Nursing will assess skin daily using assessment tool and will place on Skin Breakdown Precautions as indicated per protocol. - Pain Clinical staff may employ non-medication methods such as massage, distraction, decrease stimulus, etc . as needed. Clinical staff will assess patient's pain level every shift per protocol to assess and e nsure pain management effectiveness. Medications will be given and the pain level re-assessed. PRELIMINARY PLAN OF CARE: - Physical Therapy Patient needs Physical Therapy for a daily minimum of 1.5 hours at least 5 out of 7 days, to improve: Mobility, Strengthening, Transfers, Stretching, ROM, Endurance, Ability to manage stairs, Gait, and Balance. - Rehabilitation Nursing Patient requires 24x7 Rehabilitation Nursing for: Pain Issues, Identifying and preventing risk factor s, Monitoring and reporting current medical conditions, Assisting with ambulation and transfer, Kayla ting with all ADL-s, Teaching patients about disease process and medications, Family teaching, Provid ing safe environment, Bowel and Bladder Issues, Skin Integrity, and Medication Management. Patient needs Foster Care Therapist and/or Case Management for: Discharge Planning, Arranging Home Equipmen t or Services, and Family Interventions. - Dietary and Nutrition Services Patient needs Dietary and Nutrition Services for: Adequate Nutrition, Nutritional Supplements, and Nu tritional Education. - Occupational Therapy Patient needs Occupational Therapy for a daily minimum of 1.5 hours at least 5 out of 7 days, to impr ove Activities of Daily Living, including: Eating, Grooming, Bathing, Dressing, Toileting, Toilet Tra nsfers, Community Reintegration, Higher functional activities, Adaptive Equipment, Splinting, Househo ld Tasks, and Other activities as determined. QI SCORES: - Self-Care A. Eating 04-Supervision or touching assistance B. Oral hygiene 04-Supervision or touching assistance C. Toileting hygiene 04-Supervision or touching assistance E. Shower/bathe self 03-Partial/moderate assistance F. Upper body dressing 04-Supervision or touching assistance G. Lower body dressing 03-Partial/moderate assistance H. Putting on/taking off footwear 03-Partial/moderate assistance - Mobility A. Roll left and right 03-Partial/moderate assistance B. Sit to lying 03-Partial/moderate assistance C. Lying to sitting on side of bed 03-Partial/moderate assistance D. Sit to stand 03-Partial/moderate assistance E. Chair/qzv-hc-rutme transfer 03-Partial/moderate assistance F. Toilet transfer 04-Supervision or touching assistance G. Car transfer 88-Not attempted due to medical condition or safety concerns I. Walk 10 feet 04-Supervision or touching assistance J. Walk 50 feet with two turns 04-Supervision or touching assistance K. Walk 150 feet 04-Supervision or touching assistance L. Walking 10 feet on uneven surfaces 88-Not attempted due to medical condition or safety concerns M. 1 step (curb) 88-Not attempted due to medical condition or safety concerns N. 4 steps 88-Not attempted due to medical condition or safety concerns O. 12 steps 88-Not attempted due to medical condition or safety concerns P. Picking up object 88-Not attempted due to medical condition or safety concerns R. Wheel 50 feet with two turns 09-Not applicable S. Wheel 150 feet 09-Not applicable - Bladder and Bowel Bladder continence Bowel continence - Endurance Fair - Balance Fair - Safety Awareness Fair POTENTIAL FUNCTIONAL GOALS FOR PATIENT TO ACHIEVE BY DISCHARGE: - Safety Precaution Patient will remain free from falls or injury at time of discharge. - Bed Mobility Patient will perform bed mobility at 4-Ernestine level of assistance. - Transfers Patient will complete transfers from bed to chair at 4-Ernestine level of assistance. - Mobility Patient will ambulate 150 ft with 4-Ernestine level of assistance with RW. PATIENT REHAB POTENTIAL Dany Duarte is able and expected to receive 3 hours of individualized therapy daily on at least 5 of ev ino 7 days Dany Duarte's prognosis for significant practical improvement within a reasonable period of time appear s Good Expected level of measurable improvement will be of a practical value to Dany Duarte's functional capac ity or adaptations to impairments Has a viable Discharge Plan Medically appropriate; condition is sufficiently stable to participate in intensive rehab program DISCHARGE PLAN: - Estimated Length of Stay (days) 10. - Consensus on plan Discharge plan has been discussed with primary caregiver. Patient/Family is in agreement with the hubert n. Primary caregiver is in agreement with the plan. - Patient/Family Goals Return home independently. - Planned Living Setting Upon Discharge Home, to live with Family/Relatives. Transitional Living. CONCLUSION ON REHABILITATION NECESSITY: I have evaluated patient's pre-admission functional status and, comparing it to the patient's post-ad mission functional status now, I conclude that the pre-admission assessment was accurate. Patient's c ondition on admission supports the medical necessity of admission to IR[facility]. It is safe to proceed with patient's therapy program. SIGNATURE PANEL: (CHECK EXAMINER)
[2021-05-17] MEDS: ENOXAPARIN 40 MG/0.4 ML SQ SCH (17:51)
[2021-05-17] MEDS: ATORVASTATIN 80 MG TAB PO SCH (20:19)
[2021-05-17] MEDS: MELATONIN 5 MG TABLET PO SCH (20:20)
[2021-05-17] MEDS ORDERED: MELATONIN 3 MG TABLET PO SCH (21:00)
[2021-05-18] MEDS: HYDROCODONE/APAP 5/325 MG TAB PO PRN ×2 (06:04→14:21)
[2021-05-18] MEDS: INSULIN -REGULAR HUMAN 50 UNIT/0.5 ML ML SQ SCH ×4 (07:30→20:21)
[2021-05-18] MEDS: FUROSEMIDE 40 MG TABLET PO SCH (08:30)
[2021-05-18] MEDS: lisinopriL 10 MG TAB PO SCH (08:30)
[2021-05-18] MEDS: ASPIRIN EC 81 MG TAB PO SCH (08:31)
[2021-05-18] MEDS: CLOPIDOGREL 75 MG TABLET PO SCH (08:31)
--- NOTE | 2021-05-18 10:14 | P.RH.PN ---
Estimated Length of Stay: 9 Expected Discharge Date: 05/25/21 Discharge Disposition Plan: Home Family Support: Yes Underground Electrician Goal: Mobility, Transfers, Self Care Vital Signs: Last Vital Signs Temp 97.8 F 05/18/21 07:46 Pulse 78 05/18/21 08:30 Resp 18 05/18/21 07:46 BP 144/81 H 05/18/21 08:30 Pulse Ox 91 05/18/21 07:46 Laboratory: Laboratory Last Values WBC 8.80 K/uL (4.3-10.9) 05/17/21 06:28 RBC 4.46 M/uL (4.33-5.43) 05/17/21 06:28 Hgb 13.1 g/dL (13.6-17.9) L 05/17/21 06:28 Hct 41.4 % (39.6-49.0) 05/17/21 06:28 MCV 92.9 fL (80-100) D 05/17/21 06:28 MCH 29.3 pg (27.0-35.0) 05/17/21 06:28 MCHC 31.5 g/dL (32.0-36.0) L 05/17/21 06:28 RDW 15.0 % (12.1-15.2) 05/17/21 06:28 Plt Count 189 K/uL (152-406) 05/17/21 06:28 MPV 9.6 fL (7.6-11.3) 05/17/21 06:28 Neutrophils % 61.2 % (41.7-73.7) 05/17/21 06:28 Lymphocytes % 21.6 % (15.3-44.8) 05/17/21 06:28 Monocytes % 11.4 % (3.3-12.3) 05/17/21 06:28 Eosinophils % 5.3 % (0-4.4) H 05/17/21 06:28 Basophils % 0.5 % (0-1.3) 05/17/21 06:28 Absolute Neutrophils 5.4 K/uL (1.8-8.0) 05/17/21 06:28 Absolute Lymphocytes 1.9 K/uL (0.7-4.9) 05/17/21 06:28 Absolute Monocytes 1.0 K/uL (0.1-1.3) 05/17/21 06:28 Absolute Eosinophils 0.5 K/uL (0-0.5) 05/17/21 06:28 Absolute Basophils 0.0 K/uL (0-0.5) 05/17/21 06:28 Sodium 138 mmol/L (136-145) 05/17/21 06:28 Potassium 4.3 mmol/L (3.5-5.1) 05/17/21 06:28 Chloride 99 mmol/L (98-107) 05/17/21 06:28 Carbon Dioxide 37 mmol/L (21-32) H 05/17/21 06:28 BUN 16 mg/dL (7-18) 05/17/21 06:28 Creatinine 0.81 mg/dL (0.55-1.3) 05/17/21 06:28 Estimated GFR > 90 mL/min (=/>90) 05/17/21 06:28 Glucose 108 mg/dL (74-106) H 05/17/21 06:28 POC Glucose 141 mg/dL (65-120) H 05/18/21 07:24 Calcium 9.1 mg/dL (8.5-10.1) 05/17/21 06:28 Magnesium 2.2 mg/dL (1.8-2.4) 05/17/21 06:28 Albumin 3.0 g/dL (3.4-5.0) L 05/17/21 06:28 Prealbumin 14.2 mg/dL (20-40) L 05/17/21 06:28 Urine Color Yellow (Yellow) 05/16/21 21:05 Urine Appearance Clear (Clear) 05/16/21 21:05 Urine pH 7.0 (5.0-7.0) 05/16/21 21:05 Ur Specific [place] 1.025 (1.005-1.030) 05/16/21 21:05 Glucose (UA)(Auto) Negative (Negative) 05/16/21 21: Urine Ketones Negative (Negative) 05/16/21 21:05 Urine Blood Negative (Negative) 05/16/21 21:05 Urine Nitrite Negative (Negative) 05/16/21 21: Urine Bilirubin Negative (Negative) 05/16/21 21: Urine Urobilinogen 1.0 mg/dL (0.2-1.0) 05/16/21 21:05 Ur Leukocyte Esterase 1+ (Negative) H 05/16/21 21:05 Urine RBC <5 /HPF (NONE SEEN) 05/16/21 21:05 Urine WBC <5 /HPF (<5) 05/16/21 21:05 Ur Squamous Epith Cells FINAL INSPECTOR MOVEMENT ASSEMBLY 05/16/21 21:05 Urine Bacteria 20-50 /HPF (NONE SEEN) H 05/16/21 21:05 Urine Culture Reflexed Not needed 05/16/21 21:05 Urine Total Protein Negative (Negative) 05/16/21 21:05 SARS-CoV-2 Rap RNA(RT-PCR) Negative (NEGATIVE) 05/16/21 21:25 Weight: 298 lb Wound Present: No Physician Update: He is doing very well with all therapy. His labs are stable. Comment: skin is intact Summary: Patient's care plan and long chain beamer goals have been reviewed and revised as necessary. Please see the Rehabilitation Signature page for all necessary signatures.
[2021-05-18] MEDS: carvediloL 6.25 MG TAB PO SCH ×2 (10:35→19:25)
[2021-05-18] MEDS: ENOXAPARIN 40 MG/0.4 ML SQ SCH (16:11)
[2021-05-18] MEDS: ATORVASTATIN 80 MG TAB PO SCH (20:14)
[2021-05-18] MEDS: MELATONIN 5 MG TABLET PO SCH (20:14)
[2021-05-19] MEDS: HYDROCODONE/APAP 5/325 MG TAB PO PRN ×2 (05:56→15:28)
[2021-05-19] MEDS: INSULIN -REGULAR HUMAN 50 UNIT/0.5 ML ML SQ SCH ×4 (07:17→19:54)
[2021-05-19] MEDS: carvediloL 6.25 MG TAB PO SCH ×2 (08:00→17:23)
[2021-05-19] MEDS: POTASSIUM CL SA 10 MEQ TAB PO SCH (08:33)
[2021-05-19] MEDS: FUROSEMIDE 40 MG TABLET PO SCH (08:34)
[2021-05-19] MEDS: ASPIRIN EC 81 MG TAB PO SCH (08:34)
[2021-05-19] MEDS: CLOPIDOGREL 75 MG TABLET PO SCH (08:34)
[2021-05-19] MEDS: lisinopriL 10 MG TAB PO SCH (12:08)
[2021-05-19] MEDS: ENOXAPARIN 40 MG/0.4 ML SQ SCH (16:20)
[2021-05-19] MEDS: MELATONIN 5 MG TABLET PO SCH (19:31)
[2021-05-19] MEDS: ATORVASTATIN 80 MG TAB PO SCH (19:31)
[2021-05-19] MEDS: ACETAMINOPHEN 500 MG TAB PO PRN (19:31)
[2021-05-20] MEDS: carvediloL 6.25 MG TAB PO SCH ×2 (05:00→17:21)
[2021-05-20] MEDS: HYDROCODONE/APAP 5/325 MG TAB PO PRN ×2 (05:01→15:42)
[2021-05-20] MEDS: INSULIN -REGULAR HUMAN 50 UNIT/0.5 ML ML SQ SCH ×4 (07:20→19:19)
[2021-05-20] MEDS: ASPIRIN EC 81 MG TAB PO SCH (08:28)
[2021-05-20] MEDS: POTASSIUM CL SA 10 MEQ TAB PO SCH (08:28)
[2021-05-20] MEDS: lisinopriL 10 MG TAB PO SCH (08:28)
[2021-05-20] MEDS: CLOPIDOGREL 75 MG TABLET PO SCH (08:28)
[2021-05-20] MEDS: FUROSEMIDE 40 MG TABLET PO SCH (08:28)
[2021-05-20] MEDS: ENOXAPARIN 40 MG/0.4 ML SQ SCH (17:20)
[2021-05-20] MEDS: MELATONIN 5 MG TABLET PO SCH (19:18)
[2021-05-20] MEDS: ATORVASTATIN 80 MG TAB PO SCH (19:18)
[2021-05-21] MEDS: carvediloL 6.25 MG TAB PO SCH ×2 (05:11→17:01)
[2021-05-21] MEDS: HYDROCODONE/APAP 5/325 MG TAB PO PRN ×2 (06:14→15:47)
[2021-05-21] MEDS: INSULIN -REGULAR HUMAN 50 UNIT/0.5 ML ML SQ SCH ×4 (07:30→20:24)
[2021-05-21 07:46] LABS: BUN Blood Urea Nitrogen 14 mg/dL (7-18); Bicarbonate 35 mmol/L (21-32); Glucose Level 163 mg/dL (74-106); Potassium 3.9 mmol/L (3.5-5.1); Sodium Level 137 mmol/L (136-145)
[2021-05-21] MEDS: FUROSEMIDE 40 MG TABLET PO SCH (08:29)
[2021-05-21] MEDS: POTASSIUM CL SA 10 MEQ TAB PO SCH (08:29)
[2021-05-21] MEDS: ASPIRIN EC 81 MG TAB PO SCH (08:30)
[2021-05-21] MEDS: CLOPIDOGREL 75 MG TABLET PO SCH (08:30)
[2021-05-21] MEDS: lisinopriL 10 MG TAB PO SCH (11:11)
[2021-05-21] MEDS: ENOXAPARIN 40 MG/0.4 ML SQ SCH (16:05)
--- NOTE | 2021-05-21 16:15 | R.PN ---
PROGRESS NOTES ENCOUNTER DATE AND TIME: 05/21/2021 16:05 (DENTAL FLOSS PACKER) NAME Owen Duarte DATE OF : 1970 DATE OF ADMISSION: 05/16/2021 20:11 (DENTAL FLOSS PACKER) STEMI - Acute ST elevation myocardial infarctionCHIEF COMPLAINT: STEMI with cardiac debility. SUBJECTIVE: Pt denied any depression. Pt denied any Shortness of Breath. He denies pain or new complaints. Ambulated 750' with no assistive device and modified independence. Glucose 130 to 163, Water Filterer 0.82, WBC 8.8, Hgb 13.1, UA shows 20-50 bacteria, 1+ esterase. Covid-19 test is negative. Cranberry 400 mg daily. VITAL SIGNS Temperature: 97.4 F SBP/DBP: 123/75 Pulse: 86 Resp: 16 MEDICATION ALLERGIES: SULFUR ENVIRONMENTAL ALLERGIES: - Substance Allergies None Known - Other Allergies None Known NURSING: - Shower allowing shower PRECAUTIONS: - Fall Precaution Bed alarm TABS alarm Wheel chair alarm - Skin Breakdown Risk skin assessments - Seizure Precaution Padding of bed rails, bed alarm, monitor seizure medication levels as necessary - Cardiac Precaution Monitor blood pressure, heart rate, lower extremity edema, notify MD for shortness of breath or chest pain Monitor patient for excessive elevation of heart rate and blood pressure during therapy - Safety Fall risk assist with xfers/STS - CVA risk Monitor vitals and report any changes to MD - Respiratory Monitor and assess patient regularly - DVT prevention Follow doctors orders for prevention ACTIVITIES OOB only with supervision THERAPIES: - Dietary and Nutrition Adequate Nutrition. Nutritional Education. Nutritional Supplements. - Occupational Therapy Cognitive Retraining. Visual Perceptual Training. ADL Training. Adaptive Equipment. Community Reinteg ration. Evaluate and Treat. Household Tasks. Patient/Family Education. Safety Awareness. Transfer Tra ining. UE ROM. UE Strengthening. - Speech Therapy Cognitive Training. Expressive Language Skills. Memory Strategies. Receptive Language Skills. Speech Intelligibility Training. - Physical Therapy Gait Training. Balance Training. Evaluate and Treat. LE ROM. LE Strengthening. Medical Equipment Asse ssment and Evaluation. Modalities Training. Patient/Family Education. Safety Awareness. Transfer Kenji sara. PHYSICAL EXAM - Gen Alert and awake Lying in bed No apparent distress Oriented to: person, time, and place - Skin No skin breakdown. Normacephalic - Eyes No abnormalities - ENMT No abnormalities - Neck No abnormalities - CVS RRR - Chest No abnormalities - Resp Clear to auscultation - Abd Soft - GI Obese Deferred - No abnormalities - Ext No significant edema - MSK 4+/5 weakness in both lower extremities. - Neuro No focal deficits - Psych No abnormalities ASSESSMENT: Pt. is a 51 yo male of unknown race.On 05/08/2021 he was admitted to [facility] with diagnosis STEMI - Acute ST elevation myocardial infarction.His impairment category is Cardiac 09 - Cardiac Di jaya (09).Pre-morbidly, Pt. was independent/mod-I in Locomotion, Safety Awareness, Balance, Social Cognition, Transfers Control, Sphincter Control, Self-Care, Communication, and Endurance; and he had good Locomotion, Safety Awareness, Social Cognition, Transfers Control, Balance, Sphincter Control, Self-Care, Communication, and Endurance.Currently, he has deficits of Locomotion, Safety Awareness, B alance, Transfers Control, Self-Care, and Endurance.Pt. is now referred to [facility] for acute in-patient rehabilitation in order to maximize patient's functional independence in activities of daily living, strength, ROM, and mobility.- Rehab Goal Patient has realistic goal of being discharged at assistance level partial assist to independent to reside at Home with Family/Relatives. MDM/PLAN: - Physical Therapy Gait dysfunction - to improve, our physical therapists will perform initial evaluation of pt's statu s upon admission and devise an individualized program for Gait Training, and Wheel Chair mobility Inability to transfer - to improve, our physical therapists will perform initial evaluation of pt's status upon admission and devise an individualized program for Bed mobility Need for home safety evaluation - to improve, our physical therapists will perform initial evaluatio n of pt's status upon admission and devise an individualized program for Home Evaluation Need in caregiver upon discharge - to improve, our physical therapists will perform initial evaluati on of pt's status upon admission and devise an individualized program for Caregiver Training New precaution - to improve, our physical therapists will perform initial evaluation of pt's status upon admission and devise an individualized program for Patient precaution education Edema - to improve, our physical therapists will perform initial evaluation of pt's status upon admis ro and devise an individualized program for Elevation Training, and Lymphedema Therapy Poor balance - to improve, our physical therapists will perform initial evaluation of pt's status up on admission and devise an individualized program for Balance Training Poor endurance - to improve, our physical therapists will perform initial evaluation of pt's status upon admission and devise an individualized program for Endurance Training Weakness - to improve, our physical therapists will perform initial evaluation of pt's status upon a dmission and devise an individualized program for Aquatic Therapy, Neuromuscular Reeducation, and Str engthening Achieving independence - to improve, our physical therapists will perform initial evaluation of pt's status upon admission and devise an individualized program for Community Reintegration Activities - Occupational Therapy ADL deficits - to improve, our occupation therapists will perform initial evaluation of pt's status upon admission and devise an individualized program for Bathing, Bed mobility, Community Reintegratio n, Cooking, Dressing, Eating, Fine Motor Skills, Grooming, Homemaking, Kitchen Mobility, Laundry, Pat ient Education, Safety Awareness, Splinting - Positioning, Transfers(Toilet, Tub, Shower), and Wheel Chair Management Need for childcare worker - to improve, our occupation therapists will perform initial evaluation of pt's status upon admission and devise an individualized program for Caregiver Training Weakness - to improve, our occupation therapists will perform initial evaluation of pt's status upon admission and devise an individualized program for Aquatic Therapy, Balance, Endurance, UE ROM, and UE strengthening - Other See attached MAR (Medication Administration Record) - Diet Type Continue Heart Healthy Diabetic Diet - Diet - Liquid Texture Continue Regular - Tube Feed Continue N/A - Skin Breakdown Risk skin assessments - Seizure Precaution Padding of bed rails, bed alarm, monitor seizure medication levels as necessary - Cardiac Precaution Monitor blood pressure, heart rate, lower extremity edema, notify MD for shortness of breath or chest pain Monitor patient for excessive elevation of heart rate and blood pressure during therapy - Fall Precaution Bed alarm TABS alarm Wheel chair alarm - Diet - Solid Texture Continue Regular - Shower allowing shower - Safety Fall risk assist with xfers/STS - CVA risk Monitor vitals and report any changes to MD - Respiratory Monitor and assess patient regularly - DVT prevention Follow doctors orders for prevention FUNCTIONAL STATUS: UPDATED AT WEEKLY TEAM CONFERENCE - Bladder Same accident frequency: 7-Ind - No accidents in the past 7 days - Bowel Same accident frequency: 7-Ind - No accidents in the past 7 days - Walking Same score based on distance walked: 0(N/A) Same score based on distance walked: 3(>=150ft) - Wheelchair Same score based on distance traveled: 0(N/A) FUNCTIONAL STATUS: - Self-Care A. Eating Ind B. Grooming Ind C. Bathing sup D. Dressing - Upper Jesus E. Dressing - Lower sup F. Toileting Jesus - Sphincter Control G. Bladder control Jesus H. Bowel control Jesus - Transfers Control I. Bed/Chair/Wheelchair sup J. Toilet sup K. Tub/Shower Ernestine - Locomotion L. Walk/Wheelchair (B) Jesus M. Stairs sup - Communication N. Comprehension (B) Ind O. Expression (B) Ind - Social Cognition P. Social Interaction Ind Q. Problem Solving Ind R. Memory Ind - Endurance Good - Balance Good - Safety Awareness Good QI SCORES: - Self-Care A. Eating 04-Supervision or touching assistance B. Oral hygiene 04-Supervision or touching assistance C. Toileting hygiene 04-Supervision or touching assistance E. Shower/bathe self 03-Partial/moderate assistance F. Upper body dressing 04-Supervision or touching assistance G. Lower body dressing 03-Partial/moderate assistance H. Putting on/taking off footwear 03-Partial/moderate assistance - Mobility A. Roll left and right 03-Partial/moderate assistance B. Sit to lying 03-Partial/moderate assistance C. Lying to sitting on side of bed 03-Partial/moderate assistance D. Sit to stand 03-Partial/moderate assistance E. Chair/[id number]-[id number] transfer 03-Partial/moderate assistance F. Toilet transfer 04-Supervision or touching assistance G. Car transfer 88-Not attempted due to medical condition or safety concerns I. Walk 10 feet 04-Supervision or touching assistance J. Walk 50 feet with two turns 04-Supervision or touching assistance K. Walk 150 feet 04-Supervision or touching assistance L. Walking 10 feet on uneven surfaces 88-Not attempted due to medical condition or safety concerns M. 1 step (curb) 88-Not attempted due to medical condition or safety concerns N. 4 steps 88-Not attempted due to medical condition or safety concerns O. 12 steps 88-Not attempted due to medical condition or safety concerns P. Picking up object 88-Not attempted due to medical condition or safety concerns R. Wheel 50 feet with two turns 09-Not applicable S. Wheel 150 feet 09-Not applicable - Bladder and Bowel Bladder continence Bowel continence - Endurance Fair - Balance Fair - Safety Awareness Fair [facility]. DEFICITS: Self-Care, Mobility, Endurance, Balance, and Safety Awareness SIGNATURE PANEL: (DENTAL FLOSS PACKER)
[2021-05-21] MEDS: MELATONIN 5 MG TABLET PO SCH (20:23)
[2021-05-21] MEDS: ATORVASTATIN 80 MG TAB PO SCH (20:24)
[2021-05-22] MEDS: carvediloL 6.25 MG TAB PO SCH ×2 (05:09→17:00)
[2021-05-22] MEDS: HYDROCODONE/APAP 5/325 MG TAB PO PRN ×2 (06:45→14:44)
[2021-05-22] MEDS: INSULIN -REGULAR HUMAN 50 UNIT/0.5 ML ML SQ SCH ×4 (07:30→20:08)
[2021-05-22] MEDS: CRANBERRY FRUIT EXTRACT 400 MG CAP PO SCH (08:00)
[2021-05-22] MEDS: CLOPIDOGREL 75 MG TABLET PO SCH (08:00)
[2021-05-22] MEDS: lisinopriL 10 MG TAB PO SCH (08:01)
[2021-05-22] MEDS: POTASSIUM CL SA 10 MEQ TAB PO SCH (08:01)
[2021-05-22] MEDS: FUROSEMIDE 40 MG TABLET PO SCH (08:01)
[2021-05-22] MEDS: ASPIRIN EC 81 MG TAB PO SCH (08:01)
[2021-05-22] MEDS: ENOXAPARIN 40 MG/0.4 ML SQ SCH (16:21)
--- NOTE | 2021-05-22 17:45 | R.PN ---
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 SUBJECTIVE: Pt denied any depression. Pt denied any Shortness of Breath. He denies pain or new complaints. Ambulated 1750' with no assistive device and modified independence. Up and down 20 steps with indepen dence. Glucose 104 to 184, Tabulating Machine Mechanic 0.82, WBC 8.8, Hgb 13.1, UA shows 20-50 bacteria, 1+ esterase. Covid-19 test is negative. Cranberry 400 mg daily. VITAL SIGNS Temperature: 97.4 F SBP/DBP: 118/67 Pulse: 84 Resp: 16 MEDICATION ALLERGIES: SULFUR ENVIRONMENTAL ALLERGIES: - Substance Allergies None Known - Other Allergies None Known NURSING: - Shower allowing shower PRECAUTIONS: - Fall Precaution Bed alarm TABS alarm Wheel chair alarm - Skin Breakdown Risk skin assessments - Seizure Precaution Padding of bed rails, bed alarm, monitor seizure medication levels as necessary - Cardiac Precaution Monitor blood pressure, heart rate, lower extremity edema, notify MD for shortness of breath or chest pain Monitor patient for excessive elevation of heart rate and blood pressure during therapy - Safety Fall risk assist with xfers/STS - CVA risk Monitor vitals and report any changes to MD - Respiratory Monitor and assess patient regularly - DVT prevention Follow doctors orders for prevention ACTIVITIES OOB only with supervision THERAPIES: - Dietary and Nutrition Adequate Nutrition. Nutritional Education. Nutritional Supplements. - Occupational Therapy Cognitive Retraining. Visual Perceptual Training. ADL Training. Adaptive Equipment. Community Reinteg ration. Evaluate and Treat. Household Tasks. Patient/Family Education. Safety Awareness. Transfer Tra ining. UE ROM. UE Strengthening. - Speech Therapy Cognitive Training. Expressive Language Skills. Memory Strategies. Receptive Language Skills. Speech Intelligibility Training. - Physical Therapy Gait Training. Balance Training. Evaluate and Treat. LE ROM. LE Strengthening. Medical Equipment Asse ssment and Evaluation. Modalities Training. Patient/Family Education. Safety Awareness. Transfer Kenji sara. PHYSICAL EXAM - Gen Alert and awake Lying in bed No apparent distress Oriented to: person, time, and place - Skin No skin breakdown. Normacephalic - Eyes No abnormalities - ENMT No abnormalities - Neck No abnormalities - CVS RRR - Chest No abnormalities - Resp Clear to auscultation - Abd Soft - GI Obese Deferred - No abnormalities - Ext No significant edema - MSK 4+/5 weakness in both lower extremities. - Neuro No focal deficits - Psych No abnormalities ASSESSMENT: Pt. is a 51 yo male of unknown race.On 05/08/2021 he was admitted to [facility] with diagnosis STEMI - Acute ST elevation myocardial infarction.His impairment category is Cardiac 09 - Cardiac Di sorders ().Pre-morbidly, Pt. was independent/mod-I in Locomotion, Safety Awareness, Balance, Social Cognition, Transfers Control, Sphincter Control, Self-Care, Communication, and Endurance; and he had good Locomotion, Safety Awareness, Social Cognition, Transfers Control, Balance, Sphincter Control, Self-Care, Communication, and Endurance.Currently, he has deficits of Locomotion, Safety Awareness, B alance, Transfers Control, Self-Care, and Endurance.Pt. is now referred to [facility] for acute in-patient rehabilitation in order to maximize patient's functional independence in activities of daily living, strength, ROM, and mobility.- Rehab Goal Patient has realistic goal of being discharged at assistance level partial assist to independent to reside at Home with Family/Relatives. MDM/PLAN: - Physical Therapy Gait dysfunction - to improve, our physical therapists will perform initial evaluation of pt's statu s upon admission and devise an individualized program for Gait Training, and Wheel Chair mobility Inability to transfer - to improve, our physical therapists will perform initial evaluation of pt's status upon admission and devise an individualized program for Bed mobility Need for home safety evaluation - to improve, our physical therapists will perform initial evaluatio n of pt's status upon admission and devise an individualized program for Home Evaluation Need in caregiver upon discharge - to improve, our physical therapists will perform initial evaluati on of pt's status upon admission and devise an individualized program for Caregiver Training New precaution - to improve, our physical therapists will perform initial evaluation of pt's status upon admission and devise an individualized program for Patient precaution education Edema - to improve, our physical therapists will perform initial evaluation of pt's status upon admi ssion and devise an individualized program for Elevation Training, and Lymphedema Therapy Poor balance - to improve, our physical therapists will perform initial evaluation of pt's status up on admission and devise an individualized program for Balance Training Poor endurance - to improve, our physical therapists will perform initial evaluation of pt's status upon admission and devise an individualized program for Endurance Training Weakness - to improve, our physical therapists will perform initial evaluation of pt's status upon a dmission and devise an individualized program for Aquatic Therapy, Neuromuscular Reeducation, and Str engthening Achieving independence - to improve, our physical therapists will perform initial evaluation of pt's status upon admission and devise an individualized program for Community Reintegration Activities - Occupational Therapy ADL deficits - to improve, our occupation therapists will perform initial evaluation of pt's status upon admission and devise an individualized program for Bathing, Bed mobility, Community Reintegratio n, Cooking, Dressing, Eating, Fine Motor Skills, Grooming, Homemaking, Kitchen Mobility, Laundry, Pat ient Education, Safety Awareness, Splinting - Positioning, Transfers(Toilet, Tub, Shower), and Wheel Chair Management Need for plant health care technician - to improve, our occupation therapists will perform initial evaluation of pt's status upon admission and devise an individualized program for Caregiver Training Weakness - to improve, our occupation therapists will perform initial evaluation of pt's status upon admission and devise an individualized program for Aquatic Therapy, Balance, Endurance, UE ROM, and UE strengthening - Other See attached MAR (Medication Administration Record) - Diet Type Continue Heart Healthy Diabetic Diet - Diet - Liquid Texture Continue Regular - Tube Feed Continue N/A - Skin Breakdown Risk skin assessments - Seizure Precaution Padding of bed rails, bed alarm, monitor seizure medication levels as necessary - Cardiac Precaution Monitor blood pressure, heart rate, lower extremity edema, notify MD for shortness of breath or ches t pain Monitor patient for excessive elevation of heart rate and blood pressure during therapy - Fall Precaution Bed alarm TABS alarm Wheel chair alarm - Diet - Solid Texture Continue Regular - Shower allowing shower - Safety Fall risk assist with xfers/STS - CVA risk Monitor vitals and report any changes to MD - Respiratory Monitor and assess patient regularly - DVT prevention Follow doctors orders for prevention FUNCTIONAL STATUS: UPDATED AT WEEKLY TEAM CONFERENCE - Bladder Same accident frequency: 7-Ind - No accidents in the past 7 days - Bowel Same accident frequency: 7-Ind - No accidents in the past 7 days - Walking Same score based on distance walked: 0(N/A) Same score based on distance walked: 3(>=150ft) - Wheelchair Same score based on distance traveled: 0(N/A) FUNCTIONAL STATUS: - Self-Care A. Eating Ind B. Grooming Ind C. Bathing sup D. Dressing - Upper Jesus E. Dressing - Lower sup F. Toileting Jesus - Sphincter Control G. Bladder control Jesus H. Bowel control Jesus - Transfers Control I. Bed/Chair/Wheelchair sup J. Toilet sup K. Tub/Shower Ernestine - Locomotion L. Walk/Wheelchair (B) Jesus M. Stairs sup - Communication N. Comprehension (B) Ind O. Expression (B) Ind - Social Cognition P. Social Interaction Ind Q. Problem Solving Ind R. Memory Ind - Endurance Good - Balance Good - Safety Awareness Good QI SCORES: - Self-Care A. Eating 04-Supervision or touching assistance B. Oral hygiene 04-Supervision or touching assistance C. Toileting hygiene 04-Supervision or touching assistance E. Shower/bathe self 03-Partial/moderate assistance F. Upper body dressing 04-Supervision or touching assistance G. Lower body dressing 03-Partial/moderate assistance H. Putting on/taking off footwear 03-Partial/moderate assistance - Mobility A. Roll left and right 03-Partial/moderate assistance B. Sit to lying 03-Partial/moderate assistance C. Lying to sitting on side of bed 03-Partial/moderate assistance D. Sit to stand 03-Partial/moderate assistance E. Chair/[id number] transfer 03-Partial/moderate assistance F. Toilet transfer 04-Supervision or touching assistance G. Car transfer 88-Not attempted due to medical condition or safety concerns I. Walk 10 feet 04-Supervision or touching assistance J. Walk 50 feet with two turns 04-Supervision or touching assistance K. Walk 150 feet 04-Supervision or touching assistance L. Walking 10 feet on uneven surfaces 88-Not attempted due to medical condition or safety concerns M. 1 step (curb) 88-Not attempted due to medical condition or safety concerns N. 4 steps 88-Not attempted due to medical condition or safety concerns O. 12 steps 88-Not attempted due to medical condition or safety concerns P. Picking up object 88-Not attempted due to medical condition or safety concerns R. Wheel 50 feet with two turns 09-Not applicable S. Wheel 150 feet 09-Not applicable - Bladder and Bowel Bladder continence Bowel continence - Endurance Fair - Balance Fair - Safety Awareness Fair [facility]RENT [facility]. 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
[2021-05-22] MEDS: ATORVASTATIN 80 MG TAB PO SCH (20:04)
[2021-05-22] MEDS: ALBUTEROL 2.5 MG/3 ML NEB SOL NEB PRN (20:05)
[2021-05-22] MEDS: MELATONIN 5 MG TABLET PO SCH (20:05)
[2021-05-23] MEDS: carvediloL 6.25 MG TAB PO SCH ×2 (05:16→16:33)
[2021-05-23] MEDS: HYDROCODONE/APAP 5/325 MG TAB PO PRN ×2 (05:16→15:24)
[2021-05-23] MEDS: INSULIN -REGULAR HUMAN 50 UNIT/0.5 ML ML SQ SCH ×4 (07:30→20:22)
[2021-05-23] MEDS: POTASSIUM CL SA 10 MEQ TAB PO SCH (08:49)
[2021-05-23] MEDS: ASPIRIN EC 81 MG TAB PO SCH (08:49)
[2021-05-23] MEDS: FUROSEMIDE 40 MG TABLET PO SCH (08:50)
[2021-05-23] MEDS: lisinopriL 10 MG TAB PO SCH (08:50)
[2021-05-23] MEDS: CRANBERRY FRUIT EXTRACT 400 MG CAP PO SCH (08:50)
[2021-05-23] MEDS: CLOPIDOGREL 75 MG TABLET PO SCH (08:51)
[2021-05-23] MEDS ORDERED: PNEUMOCOCCAL VACCINE 0.5 ML IMVAC ONE (15:00)
[2021-05-23] MEDS: ENOXAPARIN 40 MG/0.4 ML SQ SCH (16:53)
--- NOTE | 2021-05-23 17:53 | R.PN ---
PROGRESS NOTES ENCOUNTER DATE AND TIME: 05/23/2021 17:47 (RESTAURANT CREW PERSON) NAME Owen Duarte DATE OF : 1970 DATE OF ADMISSION: 05/16/2021 20:11 (RESTAURANT CREW PERSON) STEMI - Acute ST elevation myocardial infarctionCHIEF COMPLAINT: STEMI with cardiac debility. SUBJECTIVE: Pt denied any depression. Pt denied any Shortness of Breath. He denies pain or new complaints. Ambulated 1250' with no assistive device and modified independence. Glucose 122 to 168, Commercial Sales Specialist 0.82, WBC 8.8, Hgb 13.1, UA shows 20-50 bacteria, 1+ esterase. Covid-19 test is negative. Cranberry 400 mg daily. Cognitive activities done with 60 to 100% accuracy. VITAL SIGNS Temperature: 97.4 F SBP/DBP: 137/84 Pulse: 87 Resp: 16 MEDICATION ALLERGIES: SULFUR ENVIRONMENTAL ALLERGIES: - Substance Allergies None Known - Other Allergies None Known NURSING: - Shower allowing shower PRECAUTIONS: - Fall Precaution Bed alarm TABS alarm Wheel chair alarm - Skin Breakdown Risk skin assessments - Seizure Precaution Padding of bed rails, bed alarm, monitor seizure medication levels as necessary - Cardiac Precaution Monitor blood pressure, heart rate, lower extremity edema, notify MD for shortness of breath or chest pain Monitor patient for excessive elevation of heart rate and blood pressure during therapy - Safety Fall risk assist with xfers/STS - CVA risk Monitor vitals and report any changes to MD - Respiratory Monitor and assess patient regularly - DVT prevention Follow doctors orders for prevention ACTIVITIES OOB only with supervision THERAPIES: - Dietary and Nutrition Adequate Nutrition. Nutritional Education. Nutritional Supplements. - Occupational Therapy Cognitive Retraining. Visual Perceptual Training. ADL Training. Adaptive Equipment. Community Reinteg ration. Evaluate and Treat. Household Tasks. Patient/Family Education. Safety Awareness. Transfer Tra ining. UE ROM. UE Strengthening. - Speech Therapy Cognitive Training. Expressive Language Skills. Memory Strategies. Receptive Language Skills. Speech Intelligibility Training. - Physical Therapy Gait Training. Balance Training. Evaluate and Treat. LE ROM. LE Strengthening. Medical Equipment Asse ssment and Evaluation. Modalities Training. Patient/Family Education. Safety Awareness. Transfer Kenji sara. PHYSICAL EXAM - Gen Alert and awake Lying in bed No apparent distress Oriented to: person, time, and place - Skin No skin breakdown. Normacephalic - Eyes No abnormalities - ENMT No abnormalities - Neck No abnormalities - CVS RRR - Chest No abnormalities - Resp Clear to auscultation - Abd Soft - GI Obese Deferred - No abnormalities - Ext No significant edema - MSK 4+/5 weakness in both lower extremities. - Neuro No focal deficits - Psych No abnormalities ASSESSMENT: Pt. is a 51 yo male of unknown race.On 05/08/2021 he was admitted to [facility] with diagnosis STEMI - Acute ST elevation myocardial infarction.His impairment category is Cardiac 09 - Cardiac Di sorgerry ().Pre-morbidly, Pt. was independent/mod-I in Locomotion, Safety Awareness, Balance, Social Cognition, Transfers Control, Sphincter Control, Self-Care, Communication, and Endurance; and he had good Locomotion, Safety Awareness, Social Cognition, Transfers Control, Balance, Sphincter Control, Self-Care, Communication, and Endurance.Currently, he has deficits of Locomotion, Safety Awareness, B alance, Transfers Control, Self-Care, and Endurance.Pt. is now referred to [facility] for acute in-patient rehabilitation in order to maximize patient's functional independence in activities of daily living, strength, ROM, and mobility.- Rehab Goal Patient has realistic goal of being discharged at assistance level partial assist to independent to reside at Home with Family/Relatives. MDM/PLAN: - Physical Therapy Gait dysfunction - to improve, our physical therapists will perform initial evaluation of pt's statu s upon admission and devise an individualized program for Gait Training, and Wheel Chair mobility Inability to transfer - to improve, our physical therapists will perform initial evaluation of pt's status upon admission and devise an individualized program for Bed mobility Need for home safety evaluation - to improve, our physical therapists will perform initial evaluatio n of pt's status upon admission and devise an individualized program for Home Evaluation Need in caregiver upon discharge - to improve, our physical therapists will perform initial evaluati on of pt's status upon admission and devise an individualized program for Caregiver Training New precaution - to improve, our physical therapists will perform initial evaluation of pt's status upon admission and devise an individualized program for Patient precaution education Edema - to improve, our physical therapists will perform initial evaluation of pt's status upon admi ssion and devise an individualized program for Elevation Training, and Lymphedema Therapy Poor balance - to improve, our physical therapists will perform initial evaluation of pt's status up on admission and devise an individualized program for Balance Training Poor endurance - to improve, our physical therapists will perform initial evaluation of pt's status upon admission and devise an individualized program for Endurance Training Weakness - to improve, our physical therapists will perform initial evaluation of pt's status upon a dmission and devise an individualized program for Aquatic Therapy, Neuromuscular Reeducation, and Str engthening Achieving independence - to improve, our physical therapists will perform initial evaluation of pt's status upon admission and devise an individualized program for Community Reintegration Activities - Occupational Therapy ADL deficits - to improve, our occupation therapists will perform initial evaluation of pt's status upon admission and devise an individualized program for Bathing, Bed mobility, Community Reintegratio n, Cooking, Dressing, Eating, Fine Motor Skills, Grooming, Homemaking, Kitchen Mobility, Laundry, Pat ient Education, Safety Awareness, Splinting - Positioning, Transfers(Toilet, Tub, Shower), and Wheel Chair Management Need for infant childcare provider - to improve, our occupation therapists will perform initial evaluation of pt's status upon admission and devise an individualized program for Caregiver Training Weakness - to improve, our occupation therapists will perform initial evaluation of pt's status upon admission and devise an individualized program for Aquatic Therapy, Balance, Endurance, UE ROM, and UE strengthening - Other See attached MAR (Medication Administration Record) - Diet Type Continue Heart Healthy Diabetic Diet - Diet - Liquid Texture Continue Regular - Tube Feed Continue N/A - Skin Breakdown Risk skin assessments - Seizure Precaution Padding of bed rails, bed alarm, monitor seizure medication levels as necessary - Cardiac Precaution Monitor blood pressure, heart rate, lower extremity edema, notify MD for shortness of breath or ches t pain Monitor patient for excessive elevation of heart rate and blood pressure during therapy - Fall Precaution Bed alarm TABS alarm Wheel chair alarm - Diet - Solid Texture Continue Regular - Shower allowing shower - Safety Fall risk assist with xfers/STS - CVA risk Monitor vitals and report any changes to MD - Respiratory Monitor and assess patient regularly - DVT prevention Follow doctors orders for prevention FUNCTIONAL STATUS: UPDATED AT WEEKLY TEAM CONFERENCE - Bladder Same accident frequency: 7-Ind - No accidents in the past 7 days - Bowel Same accident frequency: 7-Ind - No accidents in the past 7 days - Walking Same score based on distance walked: 0(N/A) Same score based on distance walked: 3(>=150ft) - Wheelchair Same score based on distance traveled: 0(N/A) FUNCTIONAL STATUS: - Self-Care A. Eating Ind B. Grooming Ind C. Bathing sup D. Dressing - Upper Jesus E. Dressing - Lower sup F. Toileting Jesus - Sphincter Control G. Bladder control Jesus H. Bowel control Jesus - Transfers Control I. Bed/Chair/Wheelchair sup J. Toilet sup K. Tub/Shower Ernestine - Locomotion L. Walk/Wheelchair (B) Jesus M. Stairs sup - Communication N. Comprehension (B) Ind O. Expression (B) Ind - Social Cognition P. Social Interaction Ind Q. Problem Solving Ind R. Memory Ind - Endurance Good - Balance Good - Safety Awareness Good QI SCORES: - Self-Care A. Eating 04-Supervision or touching assistance B. Oral hygiene 04-Supervision or touching assistance C. Toileting hygiene 04-Supervision or touching assistance E. Shower/bathe self 03-Partial/moderate assistance F. Upper body dressing 04-Supervision or touching assistance G. Lower body dressing 03-Partial/moderate assistance H. Putting on/taking off footwear 03-Partial/moderate assistance - Mobility A. Roll left and right 03-Partial/moderate assistance B. Sit to lying 03-Partial/moderate assistance C. Lying to sitting on side of bed 03-Partial/moderate assistance D. Sit to stand 03-Partial/moderate assistance E. Chair/[id number] transfer 03-Partial/moderate assistance F. Toilet transfer 04-Supervision or touching assistance G. Car transfer 88-Not attempted due to medical condition or safety concerns I. Walk 10 feet 04-Supervision or touching assistance J. Walk 50 feet with two turns 04-Supervision or touching assistance K. Walk 150 feet 04-Supervision or touching assistance L. Walking 10 feet on uneven surfaces 88-Not attempted due to medical condition or safety concerns M. 1 step (curb) 88-Not attempted due to medical condition or safety concerns N. 4 steps 88-Not attempted due to medical condition or safety concerns O. 12 steps 88-Not attempted due to medical condition or safety concerns P. Picking up object 88-Not attempted due to medical condition or safety concerns R. Wheel 50 feet with two turns 09-Not applicable S. Wheel 150 feet 09-Not applicable - Bladder and Bowel Bladder continence Bowel continence - Endurance Fair - Balance Fair - Safety Awareness Fair CURRENT [facility]. DEFICITS: Self-Care, Mobility, Endurance, Balance, and Safety Awareness SIGNATURE PANEL: (RESTAURANT CREW PERSON)
[2021-05-23] MEDS: MELATONIN 5 MG TABLET PO SCH (20:19)
[2021-05-23] MEDS: ATORVASTATIN 80 MG TAB PO SCH (20:19)
[2021-05-23] MEDS: ALBUTEROL 2.5 MG/3 ML NEB SOL NEB PRN (20:25)
--- NOTE | 2021-05-24 03:55 | EKG ---
Test Date: 2021-05-23 Test Time: 09:09:53 Release Of Information Clerk: MADAN MEASUREMENT RESULTS: Intervals: Rate: 78 CA: 158 QRSD: 104 QT: 360 QTc: 410 [place]: P: 62 CA: 158 QRS: 90 T: 62 INTERPRETIVE STATEMENTS: Normal sinus rhythm Rightward axis Borderline ECG Compared to ECG 02/10/2015 18:51:34 No significant changes Electronically Signed On 05-24-21 03:54:10 DIRECTOR OF CASINO by Baldo Blake
[2021-05-24 04:37] LABS: Absolute Lymphocytes (CBC) 2.2 K/uL (0.7-4.9); Hematocrit 40.2 % (39.6-49.0); Lymphocytes % 21.9 % (15.3-44.8); MPV 9.6 fL (7.6-11.3); RBC Red Blood Cell Count 4.38 M/uL (4.33-5.43)
[2021-05-24 04:47] LABS: Magnesium 2.1 mg/dL (1.8-2.4); Potassium 4.2 mmol/L (3.5-5.1); Prealbumin 14.3 mg/dL (20-40)
[2021-05-24] MEDS: carvediloL 6.25 MG TAB PO SCH ×2 (05:20→17:19)
[2021-05-24] MEDS: HYDROCODONE/APAP 5/325 MG TAB PO PRN ×2 (05:25→14:51)
[2021-05-24] MEDS: CRANBERRY FRUIT EXTRACT 400 MG CAP PO SCH ×2 (06:30→07:10)
[2021-05-24] MEDS: INSULIN -REGULAR HUMAN 50 UNIT/0.5 ML ML SQ SCH ×4 (06:49→20:48)
[2021-05-24] MEDS: POTASSIUM CL SA 10 MEQ TAB PO SCH (07:07)
[2021-05-24] MEDS: CLOPIDOGREL 75 MG TABLET PO SCH (07:08)
[2021-05-24] MEDS: ASPIRIN EC 81 MG TAB PO SCH (07:08)
[2021-05-24] MEDS: FUROSEMIDE 40 MG TABLET PO SCH (07:08)
[2021-05-24] MEDS: lisinopriL 10 MG TAB PO SCH (10:06)
[2021-05-24] MEDS: ENOXAPARIN 40 MG/0.4 ML SQ SCH (17:03)
--- NOTE | 2021-05-24 17:51 | R.PN ---
PROGRESS NOTES ENCOUNTER DATE AND TIME: 05/24/2021 17:48 (RESIDENTIAL INTERIOR DESIGNER) NAME Owen Duarte DATE OF : 1970 DATE OF ADMISSION: 05/16/2021 20:11 (RESIDENTIAL INTERIOR DESIGNER) STEMI - Acute ST elevation myocardial infarctionCHIEF COMPLAINT: STEMI with cardiac debility. SUBJECTIVE: Pt denied any depression. Pt denied any Shortness of Breath. He denies pain or new complaints. Ambulated 1250' with no assistive device and modified independence. Glucose 122 to 168, Piped Buttonhole Machine Operator 0.91, WBC 10.2, Hgb 12.9, UA shows 20-50 bacteria, 1+ esterase. Covid-19 test is negative x 2. Cranberry 400 mg daily. Glucose 102 to 135. Cognitive activities done with 60 to 100% accuracy. VITAL SIGNS Temperature: 97.1 F SBP/DBP: 119/76 Pulse: 86 Resp: 16 MEDICATION ALLERGIES: SULFUR ENVIRONMENTAL ALLERGIES: - Substance Allergies None Known - Other Allergies None Known NURSING: - Shower allowing shower PRECAUTIONS: - Fall Precaution Bed alarm TABS alarm Wheel chair alarm - Skin Breakdown Risk skin assessments - Seizure Precaution Padding of bed rails, bed alarm, monitor seizure medication levels as necessary - Cardiac Precaution Monitor blood pressure, heart rate, lower extremity edema, notify MD for shortness of breath or chest pain Monitor patient for excessive elevation of heart rate and blood pressure during therapy - Safety Fall risk assist with xfers/STS - CVA risk Monitor vitals and report any changes to MD - Respiratory Monitor and assess patient regularly - DVT prevention Follow doctors orders for prevention ACTIVITIES OOB only with supervision THERAPIES: - Dietary and Nutrition Adequate Nutrition. Nutritional Education. Nutritional Supplements. - Occupational Therapy Cognitive Retraining. Visual Perceptual Training. ADL Training. Adaptive Equipment. Community Reinteg ration. Evaluate and Treat. Household Tasks. Patient/Family Education. Safety Awareness. Transfer Tra ining. UE ROM. UE Strengthening. - Speech Therapy Cognitive Training. Expressive Language Skills. Memory Strategies. Receptive Language Skills. Speech Intelligibility Training. - Physical Therapy Gait Training. Balance Training. Evaluate and Treat. LE ROM. LE Strengthening. Medical Equipment Asse ssment and Evaluation. Modalities Training. Patient/Family Education. Safety Awareness. Transfer Kenji sara. PHYSICAL EXAM - Gen Alert and awake Lying in bed No apparent distress Oriented to: person, time, and place - Skin No skin breakdown. Normacephalic - Eyes No abnormalities - ENMT No abnormalities - Neck No abnormalities - CVS RRR - Chest No abnormalities - Resp Clear to auscultation - Abd Soft - GI Obese Deferred - No abnormalities - Ext No significant edema - MSK 4+/5 weakness in both lower extremities. - Neuro No focal deficits - Psych No abnormalities ASSESSMENT: Pt. is a 51 yo male of unknown race.On 05/08/2021 he was admitted to [facility] with diagnosis STEMI - Acute ST elevation myocardial infarction.His impairment category is Cardiac 09 - Cardiac Di jaya ().Pre-morbidly, Pt. was independent/mod-I in Locomotion, Safety Awareness, Balance, Social Cognition, Transfers Control, Sphincter Control, Self-Care, Communication, and Endurance; and he had good Locomotion, Safety Awareness, Social Cognition, Transfers Control, Balance, Sphincter Control, Self-Care, Communication, and Endurance.Currently, he has deficits of Locomotion, Safety Awareness, B alance, Transfers Control, Self-Care, and Endurance.Pt. is now referred to [facility] for acute in-patient rehabilitation in order to maximize patient's functional independence in activities of daily living, strength, ROM, and mobility.- Rehab Goal Patient has realistic goal of being discharged at assistance level partial assist to independent to reside at Home with Family/Relatives. MDM/PLAN: - Physical Therapy Gait dysfunction - to improve, our physical therapists will perform initial evaluation of pt's statu s upon admission and devise an individualized program for Gait Training, and Wheel Chair mobility Inability to transfer - to improve, our physical therapists will perform initial evaluation of pt's status upon admission and devise an individualized program for Bed mobility Need for home safety evaluation - to improve, our physical therapists will perform initial evaluatio n of pt's status upon admission and devise an individualized program for Home Evaluation Need in caregiver upon discharge - to improve, our physical therapists will perform initial evaluati on of pt's status upon admission and devise an individualized program for Caregiver Training New precaution - to improve, our physical therapists will perform initial evaluation of pt's status upon admission and devise an individualized program for Patient precaution education Edema - to improve, our physical therapists will perform initial evaluation of pt's status upon admi ssion and devise an individualized program for Elevation Training, and Lymphedema Therapy Poor balance - to improve, our physical therapists will perform initial evaluation of pt's status up on admission and devise an individualized program for Balance Training Poor endurance - to improve, our physical therapists will perform initial evaluation of pt's status upon admission and devise an individualized program for Endurance Training Weakness - to improve, our physical therapists will perform initial evaluation of pt's status upon a dmission and devise an individualized program for Aquatic Therapy, Neuromuscular Reeducation, and Str engthening Achieving independence - to improve, our physical therapists will perform initial evaluation of pt's status upon admission and devise an individualized program for Community Reintegration Activities - Occupational Therapy ADL deficits - to improve, our occupation therapists will perform initial evaluation of pt's status upon admission and devise an individualized program for Bathing, Bed mobility, Community Reintegratio n, Cooking, Dressing, Eating, Fine Motor Skills, Grooming, Homemaking, Kitchen Mobility, Laundry, Pat ient Education, Safety Awareness, Splinting - Positioning, Transfers(Toilet, Tub, Shower), and Wheel Chair Management Need for healthcare specialist - to improve, our occupation therapists will perform initial evaluation of pt's status upon admission and devise an individualized program for Caregiver Training Weakness - to improve, our occupation therapists will perform initial evaluation of pt's status upon admission and devise an individualized program for Aquatic Therapy, Balance, Endurance, UE ROM, and UE strengthening - Other See attached MAR (Medication Administration Record) - Diet Type Continue Heart Healthy Diabetic Diet - Diet - Liquid Texture Continue Regular - Tube Feed Continue N/A - Skin Breakdown Risk skin assessments - Seizure Precaution Padding of bed rails, bed alarm, monitor seizure medication levels as necessary - Cardiac Precaution Monitor blood pressure, heart rate, lower extremity edema, notify MD for shortness of breath or ches t pain Monitor patient for excessive elevation of heart rate and blood pressure during therapy - Fall Precaution Bed alarm TABS alarm Wheel chair alarm - Diet - Solid Texture Continue Regular - Shower allowing shower - Safety Fall risk assist with xfers/STS - CVA risk Monitor vitals and report any changes to MD - Respiratory Monitor and assess patient regularly - DVT prevention Follow doctors orders for prevention FUNCTIONAL STATUS: UPDATED AT WEEKLY TEAM CONFERENCE - Bladder Same accident frequency: 7-Ind - No accidents in the past 7 days - Bowel Same accident frequency: 7-Ind - No accidents in the past 7 days - Walking Same score based on distance walked: 0(N/A) Same score based on distance walked: 3(>=150ft) - Wheelchair Same score based on distance traveled: 0(N/A) FUNCTIONAL STATUS: - Self-Care A. Eating Ind B. Grooming Ind C. Bathing sup D. Dressing - Upper Jesus E. Dressing - Lower sup F. Toileting Jesus - Sphincter Control G. Bladder control Jesus H. Bowel control Jesus - Transfers Control I. Bed/Chair/Wheelchair sup J. Toilet sup K. Tub/Shower Ernestine - Locomotion L. Walk/Wheelchair (B) Jesus M. Stairs sup - Communication N. Comprehension (B) Ind O. Expression (B) Ind - Social Cognition P. Social Interaction Ind Q. Problem Solving Ind R. Memory Ind - Endurance Good - Balance Good - Safety Awareness Good QI SCORES: - Self-Care A. Eating 04-Supervision or touching assistance B. Oral hygiene 04-Supervision or touching assistance C. Toileting hygiene 04-Supervision or touching assistance E. Shower/bathe self 03-Partial/moderate assistance F. Upper body dressing 04-Supervision or touching assistance G. Lower body dressing 03-Partial/moderate assistance H. Putting on/taking off footwear 03-Partial/moderate assistance - Mobility A. Roll left and right 03-Partial/moderate assistance B. Sit to lying 03-Partial/moderate assistance C. Lying to sitting on side of bed 03-Partial/moderate assistance D. Sit to stand 03-Partial/moderate assistance E. Chair/[id number] transfer 03-Partial/moderate assistance F. Toilet transfer 04-Supervision or touching assistance G. Car transfer 88-Not attempted due to medical condition or safety concerns I. Walk 10 feet 04-Supervision or touching assistance J. Walk 50 feet with two turns 04-Supervision or touching assistance K. Walk 150 feet 04-Supervision or touching assistance L. Walking 10 feet on uneven surfaces 88-Not attempted due to medical condition or safety concerns M. 1 step (curb) 88-Not attempted due to medical condition or safety concerns N. 4 steps 88-Not attempted due to medical condition or safety concerns O. 12 steps 88-Not attempted due to medical condition or safety concerns P. Picking up object 88-Not attempted due to medical condition or safety concerns R. Wheel 50 feet with two turns 09-Not applicable S. Wheel 150 feet 09-Not applicable - Bladder and Bowel Bladder continence Bowel continence - Endurance Fair - Balance Fair - Safety Awareness Fair CURRENT [facility]. DEFICITS: Self-Care, Mobility, Endurance, Balance, and Safety Awareness SIGNATURE PANEL: (RESIDENTIAL INTERIOR DESIGNER)
[2021-05-24] MEDS: ATORVASTATIN 80 MG TAB PO SCH (20:47)
[2021-05-24] MEDS: MELATONIN 5 MG TABLET PO SCH (20:47)
[2021-05-25] MEDS: carvediloL 6.25 MG TAB PO SCH (05:06)
[2021-05-25] MEDS: HYDROCODONE/APAP 5/325 MG TAB PO PRN (05:06)
[2021-05-25] MEDS: INSULIN -REGULAR HUMAN 50 UNIT/0.5 ML ML SQ SCH (07:30)
[2021-05-25] MEDS: CRANBERRY FRUIT EXTRACT 400 MG CAP PO SCH (07:44)
[2021-05-25] MEDS: CLOPIDOGREL 75 MG TABLET PO SCH (07:44)
[2021-05-25] MEDS: POTASSIUM CL SA 10 MEQ TAB PO SCH (07:44)
[2021-05-25] MEDS: FUROSEMIDE 40 MG TABLET PO SCH (07:44)
[2021-05-25] MEDS: ASPIRIN EC 81 MG TAB PO SCH (07:44)
[2021-05-25 07:45] VITALS: BP 136/63
[2021-05-25 07:51] VITALS: TEMP 96.7
[2021-05-25] MEDS: lisinopriL 10 MG TAB PO SCH (09:09)
--- NOTE | 2021-05-25 10:10 | P.RH.PN ---
Estimated Length of Stay: 9 Expected Discharge Date: 05/25/21 Discharge Disposition Plan: Home Family Support: Yes [employer] Internship Goal: Mobility, Transfers, Self Care Vital Signs: Last Vital Signs Temp 96.7 F L 05/25/21 07:50 Pulse 81 05/25/21 09:09 Resp 18 05/25/21 07:50 BP 136/63 05/25/21 09:09 Pulse Ox 96 05/25/21 07:50 Laboratory: Laboratory Last Values WBC 10.20 K/uL (4.3-10.9) D 05/24/21 04:12 RBC 4.38 M/uL (4.33-5.43) 05/24/21 04:12 Hgb 12.9 g/dL (13.6-17.9) L 05/24/21 04:12 Hct 40.2 % (39.6-49.0) 05/24/21 04:12 MCV 91.7 fL (80-100) 05/24/21 04:12 MCH 29.5 pg (27.0-35.0) 05/24/21 04:12 MCHC 32.2 g/dL (32.0-36.0) 05/24/21 04:12 RDW 14.7 % (12.1-15.2) 05/24/21 04:12 Plt Count 212 K/uL (152-406) 05/24/21 04:12 MPV 9.6 fL (7.6-11.3) 05/24/21 04:12 Neutrophils % 60.1 % (41.7-73.7) 05/24/21 04:12 Lymphocytes % 21.9 % (15.3-44.8) 05/24/21 04:12 Monocytes % 12.7 % (3.3-12.3) H 05/24/21 04:12 Eosinophils % 4.9 % (0-4.4) H 05/24/21 04:12 Basophils % 0.4 % (0-1.3) 05/24/21 04:12 Absolute Neutrophils 6.1 K/uL (1.8-8.0) 05/24/21 04:12 Absolute Lymphocytes 2.2 K/uL (0.7-4.9) 05/24/21 04:12 Absolute Monocytes 1.3 K/uL (0.1-1.3) 05/24/21 04:12 Absolute Eosinophils 0.5 K/uL (0-0.5) 05/24/21 04:12 Absolute Basophils 0.0 K/uL (0-0.5) 05/24/21 04:12 Sodium 138 mmol/L (136-145) 05/24/21 04:12 Potassium 4.2 mmol/L (3.5-5.1) 05/24/21 04:12 Chloride 104 mmol/L (98-107) 05/24/21 04:12 Carbon Dioxide 32 mmol/L (21-32) 05/24/21 04:12 BUN 17 mg/dL (7-18) 05/24/21 04:12 Creatinine 0.91 mg/dL (0.55-1.3) 05/24/21 04:12 Estimated GFR 88 mL/min (=/>90) L 05/24/21 04:12 Glucose 157 mg/dL (74-106) H 05/24/21 04:12 POC Glucose 175 mg/dL (65-120) H 05/25/21 07:12 Calcium 9.0 mg/dL (8.5-10.1) 05/24/21 04:12 Magnesium 2.1 mg/dL (1.8-2.4) 05/24/21 04:12 Albumin 3.0 g/dL (3.4-5.0) L 05/24/21 04:12 Prealbumin 14.3 mg/dL (20-40) L 05/24/21 04:12 Urine Color Yellow (Yellow) 05/16/21 21:05 Urine Appearance Clear (Clear) 05/16/21 21:05 Urine pH 7.0 (5.0-7.0) 05/16/21 21:05 Ur Specific [place] 1.025 (1.005-1.030) 05/16/21 21:05 Glucose (UA)(Auto) Negative (Negative) 05/16/21 21:05 Urine Ketones Negative (Negative) 05/16/21 21:05 Urine Blood Negative (Negative) 05/16/21 21:05 Urine Nitrite Negative (Negative) 05/16/21 21:05 Urine Bilirubin Negative (Negative) 05/16/21 21:05 Urine Urobilinogen 1.0 mg/dL (0.2-1.0) 05/16/21 21:05 Ur Leukocyte Esterase 1+ (Negative) H 05/16/21 21:05 Urine RBC <5 /HPF (NONE SEEN) 05/16/21 21:05 Urine WBC <5 /HPF (<5) 05/16/21 21:05 Ur Squamous Epith Cells SALES ASSOCIATE CASHIER 05/16/21 21:05 Urine Bacteria 20-50 /HPF (NONE SEEN) H 05/16/21 21:05 Urine Culture Reflexed Not needed 05/16/21 21:05 Urine Total Protein Negative (Negative) 05/16/21 21:05 SARS-CoV-2 Rap RNA(RT-PCR) Negative (NEGATIVE) 05/22/21 11:30 Weight: 298 lb Wound Present: No Closed Surgical Incision Present: No Negative Pressure Wound Therapy Present: No Physician Update: He did very well with his therapy and will be discharged home today. Comment: skin is intact Summary: Patient's care plan and watermelon inspector goals have been reviewed and revised as necessary. Please see the Rehabilitation Signature page for all necessary signatures.
[2021-05-25 11:07] VITALS: O2SAT 94
--- NOTE | 2021-05-25 15:02 | R.DS ---
DISCHARGE SUMMARY FACILITY [facility] MR# [id number] NAME Owen Duarte ADDRESS [id number] [place] [address] [address] [id number] PHONE DATE OF 1970 AGE 51 SSN# [id number] GENDER Male DEXTERITY Unknown dexterity MARITAL STATUS Single (Never ) RACE Unknown race ENCOUNTER PHYSICIAN Dr. Meño Piper M.D. REFERRING DOCTOR Dr. Allan Carrillo REFERRING FACILITY [facility] DISCHARGE DIAGNOSIS: - Cardiac 09 - Cardiac Disorders (09) STEMI - Acute ST elevation myocardial infarction. DATE OF ADMISSION 05/16/2021 20:11 (LABORATORY ASSISTANT) MEDICATION ALLERGIES: SULFUR ENVIRONMENTAL ALLERGIES: - Substance Allergies None Known - Other Allergies None Known DISCHARGE MEDICATIONS: Other- ContinueSee attached MAR (Medication Administration Record). NURSING: - Shower allowing shower PRECAUTIONS: - Fall Precaution Bed alarm TABS alarm Wheel chair alarm - Skin Breakdown Risk skin assessments - Seizure Precaution Padding of bed rails, bed alarm, monitor seizure medication levels as necessary - Cardiac Precaution Monitor blood pressure, heart rate, lower extremity edema, notify MD for shortness of breath or chest pain Monitor patient for excessive elevation of heart rate and blood pressure during therapy - Safety Fall risk assist with xfers/STS - CVA risk Monitor vitals and report any changes to MD - Respiratory Monitor and assess patient regularly - DVT prevention Follow doctors orders for prevention ACTIVITIES OOB only with supervision THERAPIES: - Dietary and Nutrition Adequate Nutrition Nutritional Education Nutritional Supplements - Occupational Therapy Cognitive Retraining Visual Perceptual Training ADL Training Adaptive Equipment Community Reintegration Evaluate and Treat Household Tasks Patient/Family Education Safety Awareness Transfer Training UE ROM UE Strengthening - Speech Therapy Cognitive Training Expressive Language Skills Memory Strategies Receptive Language Skills Speech Intelligibility Training - Physical Therapy Gait Training Balance Training Evaluate and Treat LE ROM LE Strengthening Medical Equipment Assessment and Evaluation Modalities Training Patient/Family Education Safety Awareness Transfer Training HISTORY OF PRESENT ILLNESS: Pt. is a 51 yo male of unknown race.On 05/08/2021 he was admitted to [facility] with diagnosis STEMI - Acute ST elevation myocardial infarction.His impairment category is Cardiac 09 - Cardiac Di sorders ().Pre-morbidly, Pt. was independent/mod-I in Locomotion, Safety Awareness, Balance, Social Cognition, Transfers Control, Sphincter Control, Self-Care, Communication, and Endurance; and he had good Locomotion, Safety Awareness, Social Cognition, Transfers Control, Balance, Sphincter Control, Self-Care, Communication, and Endurance.Currently, he has deficits of Locomotion, Safety Awareness, B alance, Transfers Control, Self-Care, and Endurance.Pt. is now referred to [facility] for acute in-patient rehabilitation in order to maximize patient's functional independence in activities of daily living, strength, ROM, and mobility.- Rehab Goal Patient has realistic goal of being discharged at assistance level partial assist to independent to reside at Home with Family/Relatives. Mr. Owen Duarte is a 51 yo male that lives in a mobile home with his spouse, per OT note. Mr. Cisco richards has PMH of: HTN, DM2, HLD, COPD, morbid obesity, seizure disorder, degenerative disk disease, hx of TBI, hx of meningitis, hx of hemorrhagic stroke, and polysubstance abuse (oxycodone, amphetamines, c ocaine, BZD) who presented for STEMI on 05/08/2021. He had a PCI with stent to proximal LAD and D1 AM of 05/08/2021. Mr. Duarte was briefly on dopamine and levophed following procedure but was stopped o n pressors 05/09/2021. Mr. Duarte was transferred to [facility] on 05/09/2021 where he required IV diuresis and duonebs for wheezing. Mr. Duarte, per therapy notes, prior to hospitalization was independent wi th all tasks. Mr. Duarte is currently working with OT/PT and demonstrates fair progress towards goals , however, continues to demonstrate deficits. Mr. Duarte's deficits are the following: ambulation def icits, balance deficits, decreased activity tolerance, functional mobility, pain, transfer deficits, safety, etc. Without an acute inpatient rehab approach, Mr. Duarte risks an unsafe discharge, increas ed weakness, increased fall risk, poor balance, difficulty with activity tolerance, poor pain control , increased caregiver burden, unsafe xfers and functional mobility. With an interdisciplinary approa ch by acute IRF, pt. demonstrates great potential and motivation to get stronger, safer, and more ind ependent to return to [facility]. Pt demonstrates a strong need for an intensive team: rehab doctor, nurse , psychiatric social worker supervisor, and therapist to meet functional and medical goals. It is reasonable and necessary f or the patient to come to acute IRF to safely dc. Pt is medically stable but in need of 24 hour nursi ng, doctor supervision, and oversight while receiving active and ongoing intensive (OT/PT/ST). The everett mccall is reasonably expected to participate in 3hours of therapy a day/15 hours a week. COVID-19 scre ening performed. Patient denies a new onset of fever, cough,difficulty breathing, sore throat, body aches and non-allergy nasal congestion in the past 24 hours. Patient denies travel outside of [place] i the past 14days. Patient denies any contact with someone who has a confirmed diagnosis of or is und er investigation for COVID-19 in the past 14 days. Patient has been tested negative for COVID- 19 on 05/16/2021.HOSPITAL COURSE: CVA RISK: On 05/15/2021 the following precautions were added for the patient: CVA risk - Monitor vitals and rep ort any changes to MD. On 05/17/2021 the following precautions were added for the patient: CVA risk - Monitor vitals and re port any changes to MD. On 05/21/2021 the following precautions were removed for the patient: CVA risk - Monitor vitals and report any changes to MD. On 05/22/2021 the following precautions were added for the patient: CVA risk - Monitor vitals and re port any changes to MD. On 05/15/2021 the following precautions were removed for the patient: CVA risk - Monitor vitals and r eport any changes to MD, and CVA risk - Monitor vitals and report any changes to MD. The following precautions were added for the patient: Cardiac Precaution - Monitor blood pressure, he art rate, lower extremity edema, notify MD for shortness of breath or chest pain, and Cardiac Precaut ion - Monitor patient for excessive elevation of heart rate and blood pressure during therapy. On 05/17/2021 the following precautions were added for the patient: Cardiac Precaution - Monitor blo od pressure, heart rate, lower extremity edema, notify MD for shortness of breath or chest pain, and Cardiac Precaution - Monitor patient for excessive elevation of heart rate and blood pressure during therapy. On 05/21/2021 the following precautions were removed for the patient: Cardiac Precaution - Monitor b lood pressure, heart rate, lower extremity edema, notify MD for shortness of breath or chest pain, an d Cardiac Precaution - Monitor patient for excessive elevation of heart rate and blood pressure duri ng therapy. On 05/22/2021 the following precautions were added for the patient: Cardiac Precaution - Monitor blo od pressure, heart rate, lower extremity edema, notify MD for shortness of breath or chest pain, and Cardiac Precaution - Monitor patient for excessive elevation of heart rate and blood pressure during therapy. On 05/15/2021 the following precautions were removed for the patient: Cardiac Precaution - Monitor bl ood pressure, heart rate, lower extremity edema, notify MD for shortness of breath or chest pain, Car diac Precaution - Monitor patient for excessive elevation of heart rate and blood pressure during the rapy, Cardiac Precaution - Monitor blood pressure, heart rate, lower extremity edema, notify MD for shortness of breath or chest pain, and Cardiac Precaution - Monitor patient for excessive elevation of heart rate and blood pressure during therapy. The following precautions were added for the patient: DVT prevention - Follow doctors orders for prev ention. On 05/17/2021 the following precautions were added for the patient: DVT prevention - Follow doctors orders for prevention. On 05/21/2021 the following precautions were removed for the patient: DVT prevention - Follow doctor s orders for prevention. On 05/22/2021 the following precautions were added for the patient: DVT prevention - Follow doctors orders for prevention. The following precautions were removed for the patient: DVT prevention - Follow doctors orders for pr evention, and DVT prevention - Follow doctors orders for prevention. On 05/15/2021 the following precautions were added for the patient: Fall Precaution - Bed alarm, Fall Precaution - TABS alarm, and Fall Precaution - Wheel chair alarm. On 05/21/2021 the following precautions were added for the patient: Fall Precaution - Bed alarm, Fal l Precaution - TABS alarm, and Fall Precaution - Wheel chair alarm. On 05/15/2021 the following precautions were removed for the patient: Fall Precaution - Bed alarm, Fa ll Precaution - TABS alarm, Fall Precaution - Wheel chair alarm, Fall Precaution - Bed alarm, Fall P recaution - TABS alarm, and Fall Precaution - Wheel chair alarm. The following precautions were added for the patient: Respiratory - Monitor and assess patient regula rly. On 05/17/2021 the following precautions were added for the patient: Respiratory - Monitor and assess patient regularly. On 05/21/2021 the following precautions were removed for the patient: Respiratory - Monitor and asse ss patient regularly. On 05/22/2021 the following precautions were added for the patient: Respiratory - Monitor and assess patient regularly. On 05/15/2021 the following precautions were removed for the patient: Respiratory - Monitor and asses s patient regularly, and Respiratory - Monitor and assess patient regularly. The following precautions were added for the patient: Safety - Fall risk, and Safety - assist with xf ers/STS. On 05/17/2021 the following precautions were added for the patient: Safety - Fall risk, and Safety - assist with xfers/STS. On 05/21/2021 the following precautions were removed for the patient: Safety - Fall risk, and Safety - assist with xfers/STS. On 05/22/2021 the following precautions were added for the patient: Safety - Fall risk, and Safety - assist with xfers/STS. On 05/15/2021 the following precautions were removed for the patient: Safety - Fall risk, Safety - as sist with xfers/STS, Safety - Fall risk, and Safety - assist with xfers/STS. The following precautions were added for the patient: Seizure Precaution - Padding of bed rails, bed alarm, monitor seizure medication levels as necessary. On 05/17/2021 the following precautions were added for the patient: Seizure Precaution - Padding of bed rails, bed alarm, monitor seizure medication levels as necessary. On 05/21/2021 the following precautions were removed for the patient: Seizure Precaution - Padding o f bed rails, bed alarm, monitor seizure medication levels as necessary. On 05/22/2021 the following precautions were added for the patient: Seizure Precaution - Padding of bed rails, bed alarm, monitor seizure medication levels as necessary. On 05/15/2021 the following precautions were removed for the patient: Seizure Precaution - Padding of bed rails, bed alarm, monitor seizure medication levels as necessary, and Seizure Precaution - Padd ing of bed rails, bed alarm, monitor seizure medication levels as necessary. The following precautions were added for the patient: Skin Breakdown Risk - skin assessments. On 05/17/2021 the following precautions were added for the patient: Skin Breakdown Risk - skin asses sments. On 05/21/2021 the following precautions were removed for the patient: Skin Breakdown Risk - skin ass essments. On 05/22/2021 the following precautions were added for the patient: Skin Breakdown Risk - skin asses sments. The following precautions were removed for the patient: Skin Breakdown Risk - skin assessments, and S kin Breakdown Risk - skin assessments. CARDIAC PRECAUTION: DVT PREVENTION: DIET - LIQUID TEXTURE: On 05/15/2021 Pt was upgraded to Regular Diet - Liquid Texture. DIET - SOLID TEXTURE: On 05/15/2021 Pt was upgraded to Regular Diet - Solid Texture. DIET TYPE: On 05/15/2021 Pt was changed to Heart Healthy Diet Type. Pt was changed from Heart Healthy Diet Type to Diabetic Diet. On 05/17/2021 Pt was changed from Diabetic Diet Diet Type to Heart Healthy. Pt was changed from Diabetic Diet Diet Type to Heart Healthy. On 05/21/2021 Pt was changed from Diabetic Diet Diet Type to Heart Healthy. On 05/22/2021 Pt was changed from Diabetic Diet Diet Type to Heart Healthy. On 05/23/2021 Pt was changed from Diabetic Diet Diet Type to Heart Healthy. On 05/24/2021 Pt was changed from Diabetic Diet Diet Type to Heart Healthy. FALL PRECAUTION: RESPIRATORY: SAFETY: SEIZURE PRECAUTION: SKIN BREAKDOWN RISK: TUBE FEED: On 05/15/2021 Pt was changed to N/A Tube Feed. DISCHARGE PHYSICAL EXAM - Gen Alert and awake Lying in bed No apparent distress Oriented to: person, time, and place - Skin No skin breakdown. Normacephalic - Eyes No abnormalities - ENMT No abnormalities - Neck No abnormalities - CVS RRR - Chest No abnormalities - Resp Clear to auscultation - Abd Soft - GI Obese Deferred - No abnormalities - Ext No significant edema - MSK 4+/5 weakness in both lower extremities. - Neuro No focal deficits - Psych No abnormalities FUNCTIONAL STATUS: - Self-Care A. Eating 7-Ind B. Grooming 7-Ind C. Bathing 6-Jesus D. Dressing - Upper 6-Jesus E. Dressing - Lower 6-Jesus F. Toileting 6-Jesus - Sphincter Control G. Bladder control 6-Jesus H. Bowel control 6-Jesus - Transfers Control I. Bed/Chair/Wheelchair 6-Jesus J. Toilet 6-Jesus K. Tub/Shower 6-Jesus - Locomotion L. Walk/Wheelchair (B) 6-Jesus M. Stairs 6-Jesus - Communication N. Comprehension (B) 7-Ind O. Expression (B) 7-Ind - Social Cognition P. Social Interaction 7-Ind Q. Problem Solving 7-Ind R. Memory 7-Ind - Endurance Good - Balance Good - Safety Awareness Good QI SCORES: - Self-Care A. Eating 04-Supervision or touching assistance B. Oral hygiene 04-Supervision or touching assistance C. Toileting hygiene 04-Supervision or touching assistance E. Shower/bathe self 03-Partial/moderate assistance F. Upper body dressing 04-Supervision or touching assistance G. Lower body dressing 03-Partial/moderate assistance H. Putting on/taking off footwear 03-Partial/moderate assistance - Mobility A. Roll left and right 03-Partial/moderate assistance B. Sit to lying 03-Partial/moderate assistance C. Lying to sitting on side of bed 03-Partial/moderate assistance D. Sit to stand 03-Partial/moderate assistance E. Chair/emg-xe-jfarz transfer 03-Partial/moderate assistance F. Toilet transfer 04-Supervision or touching assistance G. Car transfer 88-Not attempted due to medical condition or safety concerns I. Walk 10 feet 04-Supervision or touching assistance J. Walk 50 feet with two turns 04-Supervision or touching assistance K. Walk 150 feet 04-Supervision or touching assistance L. Walking 10 feet on uneven surfaces 88-Not attempted due to medical condition or safety concerns M. 1 step (curb) 88-Not attempted due to medical condition or safety concerns N. 4 steps 88-Not attempted due to medical condition or safety concerns O. 12 steps 88-Not attempted due to medical condition or safety concerns P. Picking up object 88-Not attempted due to medical condition or safety concerns R. Wheel 50 feet with two turns 09-Not applicable S. Wheel 150 feet 09-Not applicable - Bladder and Bowel Bladder continence Bowel continence - Endurance Fair - Balance Fair - Safety Awareness Fair DISCHARGE INSTRUCTIONS: - N/A Aspirin 81 mg, Plavix 75 mg daily. DISCHARGE PLAN, FOLLOW UP CARE PROVISIONS: - Estimated Length of Stay (days) 10. - Consensus on plan Discharge plan has been discussed with primary caregiver. Patient/Family is in agreement with the hubert n. Primary caregiver is in agreement with the plan. - Patient/Family Goals Return home independently. - Planned Living Setting Upon Discharge Home, to live with Family/Relatives. Transitional Living. SIGNATURE PANEL: (LABORATORY ASSISTANT)
== END 2021-05-25 09:25 | disposition home or self-care (01) | DRG 281 ==
LOC: 5TH 20:11
PROVIDERS: ADMIT Psychiatry & Neurology Neurology with Special Qualifications in Child Neurology; ATTEND Psychiatry & Neurology Neurology with Special Qualifications in Child Neurology
DX: I21.3 ST elevation (STEMI) myocardial infarction of unspecified site (principal); Z68.41 Body mass index [BMI] 40.0-44.9, adult; E11.9 Type 2 diabetes mellitus without complications; I10 Essential (primary) hypertension; E78.5 Hyperlipidemia, unspecified; J44.9 Chronic obstructive pulmonary disease, unspecified; E66.01 Morbid (severe) obesity due to excess calories; Z86.73 Personal history of transient ischemic attack (TIA), and cerebral infarction without residual deficits; Z20.822 Contact with and (suspected) exposure to COVID-19
CPT/HCPCS: 36415; 80048; 81001; 82040; 82947; 83735; 84134; 85025; 87086; 87088; 90471; 90732; 92523; 93005; 94640; 94660; 97110; 97116; 97127; 97161; 97530; J1650; U0003

== ENCOUNTER 2021-06-05 17:38 | Inpatient (IN) | payer BC ==
--- OUTSIDE RECORDS SUMMARY | 2021-06-05 17:49 | XMS REPORT | Continuity of Care Document ---
:1970 Author Organization [facility] t Address [address] [place] [address] Care Team Providers Name Role Phone Gideon Jaramillo MD Primary Care Physician DHJENNIFER Attending Clinician Unavailable Wilian RAMÍREZ, L Attending Clinician DR LONI Attending Clinician Unavailable PANCHO Admitting Clinician Unavailable DR LONI Admitting Clinician Unavailable Payers Payer Name Policy Type Policy Effective Date Expiration Date Sour ce Number BCBS OF [id number] 2020 [place] [facility] [place] [facility] BLUE ADVANTAGE Branch [id number] 2020-[place] [phone] [id number], [place] [id number] Problems Condition Condition Condition Status Onset Resolution [...] Medical wrist wrist request Branch for surgery [id number] Hypertensi Hypertensi Disease Active U nivers on on 06-23 ity of 00:00: [place] 00 Medical Branch SOB Diagnosis Active 2016-05-28 Mem oria 05-24 08:49:00 l SOB 00:00: [place] 00 Active 05/24/2016 [facility] STROKE Diagnosis Active 2016-01-22 Mem oria - 08:02:00 l STROKE 00:00: [place] 00 Active 01/19/2016 [facility] LALITHA Diagnosis Active 2014-052015-04-04 Memoria BILLING 06-05 12:06:00 l ONLY 00:00: [place] LF#[id number] LALITHA 00 BILLING ONLY LF#[id number] Active 04/04/2015 [facility] SEIZURES Diagnosis Active 2014-052015-03-30 M emoria 05-30 10:49:00 l SEIZURES 00:00: Avni n 00 Active 03/30/2015 [facility] PNEUMONIA/ Diagnosis Active 2014-052015-05-15 Memoria URINARY 0- 10:23:00 l TRACT 00:00: [place] INFECTION PNEUMONIA/ 00 URINARY TRACT INFECTION Active 02/12/2015 [facility] SEIZURES Diagnosis Active 2014-12-13 M emoria NARCOLIC 12-11 16:03:00 l INTOXICATI SEIZURES 00:00: He rmann ON NARCOLIC 00 INTOXICATI ON Active 5 [facility] SEIZURE, Diagnosis Active 2016-05-14 M emoria TODDS 10-26 08:47:00 l PARALYSIS SEIZURE, 00:00: Her story TODDS 00 PARALYSIS Active 10/26/2014 [facility] POSS Diagnosis Active 2014-10-26 Mem oria SEIZURES 10-26 17:58:00 l POSS 00:00: [place] SEIZURES 00 Active 10/26/2014 [facility] TODDS Diagnosis Active 2014-07-27 Mem oria PARALYSIS 07-19 13:07:00 l TODDS 00:00: [place] PARALYSIS 00 Active 07/19/2014 [facility] LIFE Diagnosis Active 2014-07-19 Mem oria FLIGHT 07-19 19:50:00 l LIFE 00:00: [place] FLIGHT 00 Active 07/19/2014 [facility] AMS Diagnosis Active 2014-07-20 Mem oria 07-19 02:25:00 l AMS 00:00: [place] 00 Active 07/19/2014 [facility] LEFT LOWER Diagnosis Active 2012-06-22 Memoria BACK PAIN 06-22 13:10:00 l LEFT 00:00: [place] LOWER BACK 00 PAIN Active 06/22/2012 [facility] VIRAL VS Diagnosis Active 2011-07-10 M emoria PNEUMONIA 07-08 13:09:00 l SOB VIRAL VS 00:00: Avni n PNEUMONIA 00 SOB Active 07/09/2011 [facility] NECK PAIN Diagnosis Active 2009-052012-07-16 Memoria 05-16 13:00:00 l NECK 00:00: [place] PAIN 00 Active 03/16/2010 [facility] Final: Problem 2015-02-18 Memor ia Pneumonia, 07:57:35 l unspecifie Final: Herm carlo d organism Pneumonia, unspecifie d organism 02/18/2015 [facility] Degenerati Problem Resolve 2012-06-24 Memoria ve disc d 11:43:02 l disease [place] Degenerati ve disc disease Resolved Problem 06/24/2012 [facility] Emphysema Problem Resolve 2012-06-24 M emoria d 11:43:02 l [place] Emphysema Resolved Problem 06/24/2012 [facility] HTN - Problem Resolve 2012-06-24 Gerson ruddy Hypertensi d 11:43:02 l on HTN - [place] Hypertensi on Resolved Problem 06/24/2012 [facility] Meningitis Problem Resolve 2012-06-24 Memoria d 11:43:02 l [place] Meningitis Resolved Problem 06/24/2012 1spinal a a child [facility] Slipped Problem Resolve 2012-06-24 Mem oria disc d 11:43:02 l Slipped [place] disc Resolved Problem 06/24/2012 2in neck-- repaired [facility] Emphysema Problem Resolve 2016-01-23 M emoria (morpholog d 00:57:26 l ic Anibal abnormalit Emphysema y) (morpholog ic abnormalit y) Resolved Problem 01/23/2016 [facility], [facility], [facility] Cardiomega Problem Resolve 2016-05-28 Memoria ly d 02:08:50 l (disorder) Avni n Cardiomega ly (disorder) Resolved Problem 05/28/2016 [facility], [facility] Intracrani Problem Resolve 2016-05-28 Memoria al d 02:08:50 l hemorrhage Avni n (disorder) Intracrani al hemorrhage (disorder) Resolved Problem 05/28/2016 [facility], [facility] Degenerati Problem Resolve 2016-05-28 Memoria on of d 02:08:50 l interverte Avni n bral disc Degenerati (disorder) on of interverte bral disc (disorder) Resolved Problem 05/28/2016 [facility], [facility] Diabetes Problem Resolve 2016-05-28 Me moria mellitus d 02:08:50 l (disorder) Diabetes He rmann mellitus (disorder) Resolved Problem 05/28/2016 [facility] Meningitis Problem Resolve 2016-05-28 Memoria (disorder) d 02:08:50 l [place] Meningitis (disorder) Resolved Problem 05/28/2016 spinal a a child [facility], [facility] Seizure Problem Resolve 2016-05-28 Mem oria (finding) d 02:08:50 l Seizure [place] (finding) Resolved Problem 05/28/2016 [facility], [facility] Interverte Problem Resolve 2016-05-28 Memoria bral disc d 02:08:50 l prolapse [place]ibal (disorder) Interverte bral disc prolapse (disorder) Resolved Problem 05/28/2016 in neck-- repaired [facility], [facility] Traumatic Problem Resolve 2016-05-28 M emoria brain d 02:08:50 l injury Anibal (disorder) Traumatic brain injury (disorder) Resolved Problem 05/28/2016 [facility] Shortness Problem Active 2012-06-24 Me moria of breath 11:43:02 l [place] Shortness of breath Active Problem 06/24/2012 [facility] Dyspnea Problem Active 2016-05-28 Gerson ruddy (finding) 02:08:50 l Dyspnea An[place] (finding) Active Problem 05/28/2016 [facility], [facility] SHORTNESS Diagnosis Active 2011-07-10 Memoria OF BREATH 13:09:00 l [place] SHORTNESS OF BREATH Active [facility] FEBRILE Diagnosis Active 2014-12-13 Me moria CONVULSION 16:03:00 l S NOS FEBRILE [place] CONVULSION S NOS Active [facility] CEREBRAL Diagnosis Active 2016-01-22 M emoria INFARCTION 08:02:00 l , CEREBRAL Avni n UNSPECIFIE INFARCTION D , UNSPECIFIE D Active [facility] PNEUMONIA, Diagnosis Active 2015-05-15 Memoria UNSPECIFIE 10:23:00 l D ORGANISM Avni n PNEUMONIA, UNSPECIFIE D ORGANISM Active [facility] URINARY Diagnosis Active 2015-05-15 Me moria TRACT 10:23:00 l INFECTION, URINARY Her story SITE NOT TRACT SPECIF INFECTION, SITE NOT SPECIF Active [facility] POST Diagnosis Active 2015-05-15 Mem oria TRAUMATIC 10:23:00 l SEIZURES POST [place] TRAUMATIC SEIZURES Active [facility] History of Past Illness Condition Condition Condition Status Onset Resolution Last Treating Co mments Source Name Details Category Date Date Treatment Clinician Date Discharge Problem 2014-052015-04-02 2015-04-02 Memoria Diagnosis: 1 01:54:11 01:54:11 l Epileptic 06:00: [place] seizure Discharge 00 Diagnosis: Epileptic seizure 03/30/2015 04/02/2015 [facility] Discharge Problem 2014-07-22 2014-07-22 Memoria Diagnosis: 3- 22:34:42 22:34:42 l Seizure 05:00: [place] Discharge 00 Diagnosis: Seizure 07/20/2014 07/22/2014 [facility] Discharge Problem 2014-07-22 2014-07-22 Memoria Diagnosis: 3-18 22:34:42 22:34:42 l Noncomplia 05:00: Avni n nce Discharge 00 Diagnosis: Noncomplia nce 07/20/2014 07/22/2014 [facility] Allergies, Adverse Reactions, Alerts Allergy [...] penicill Active Memori a ins ins l [place] sulfa sulfa Active Memoria drugs drugs l [place] Toradol Toradol Active Memoria l [place] traMADol traMADol Active Memori a l [place] Social History Social Habit Start Date Stop Date Quantity Comments Source Exposure to Not sure [place] of SARS-CoV-2 (event) [facility] Cigarette 2020-09-08 2020-09-08 University of pack-years 00:00:00 00:00:00 [facility] Branch Tobacco use and 2020-09-08 2020-09-08 Never used Universit y of exposure 00:00:00 00:00:00 [facility] Alcohol intake 2020-09-08 2020-09-08 Current drinker Unive rsity of 00:00:00 00:00:00 of alcohol [facility] (finding) Branch Cigarettes smoked 2020-09-08 2020-09-08 Univers ity of current (pack per 00:00:00 00:00:00 [facility] ) - Reported Branch Alcohol Comment 2020-08-17 2020-08-17 occasional Universit y of 00:00:00 00:00:00 [place] [facility] History SDOH 2020-06-24 2020-06-24 5 University o f Alcohol Frequency 00:00:00 00:00:00 [facility] SDOH 2020-06-24 2020-06-24 2 University o f Alcohol Std Drinks 00:00:00 00:00:00 [place] [facility] History SDOH 2020-06-24 2020-06-24 4 University o f Alcohol Binge 00:00:00 00:00:00 [facility] al Branch Social History 2014-10-27 2014-10-27 [facility] lucien 04:42:13 04:42:13 Sex [birth year] At [birth year] Universit y of 00:00:00 00:00:00 [facility] Smoking Status Start Date Stop Date Source Former smoker 2020-09-08 00:00:00 2020-09-08 00:00:00 [facility] Medications Ordered Filled Start Stop [...] Oral day, # 30 Tablet tab, 0 [[place] Refill(s) 5/325] Sodium No 25 mL, Memoria Chloride 05-25 Route: IV, l 0.9% IV 08:50: Start [place] 00 date: 05/25/16 2:50:00 [employer]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 Ativan No 2 mg, Memoria 05-25 Route: l 01:49: IVP, Drug form: INJ, ONCE, Dosing Weight 109.091, kg, Priority: STAT, Start date: 05/24/16 19:49:00 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 BOARD 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, Stop date: 05/24/16 19:49:00 INSULATION BOARD 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 Ondansetron No 4 mg, Memor ia 05-25 Route: l 01:48: IVP, Drug form: INJ, ONCE, Dosing Weight 109.091, kg, Priority: STAT, Start date: 05/24/16 19:48:00 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 BOARD 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, Stop date: 05/24/16 19:48:00 INSULATION BOARD 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 Dexamethaso No Notes: Memoria ne 05-25 MEDICATION [...] Chloride 20 1,000 l 0.154 22:37: ml/hr, [place] MEQ/ML 00 Infuse Injectable Over: 1 Solution hr, Route: IV, 1,000, Drug form: INJ, ONCE, Priority: STAT, Dosing Weight 109.091 kg, Start date: 05/24/16 16:37:00 INSULATION BOARD 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, Duration: 1 doses or times, Stop date: 05/24/16 16:37:00 INSULATION BOARD 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 Ondansetron No Notes: Gerson ruddy -20 (Same as: l 22:37: Zofran) MEDICATION WASTE Product Size: 4 mg Product Wasted: _0__ mg Levetiracet Yes 1,000 mg = Memoria am 500 MG 01-19 2 tab, PO, l Oral Tablet 16:50: BID, # 120 Anibal [Keppra] 00 tab, 2 Refill(s) Lisinopril No Notes: Memor ia 01-19 (Same as: l 16:49: Prinivil, [place] 00 Zestril) Aspirin 81 No Notes: Do Me moria MG Enteric 01-19 not crush l Coated 14:00: or chew. [place] Tablet 00 (Same As: Ecotrin) Acetaminoph No Notes: Gerson ruddy en 325 MG / 01-19 (Same as: l Hydrocodone 05:46: [place] Idna nn Bitartrate 00 325/5) Do 5 MG Oral not exceed Tablet 4gm/day of [[place] acetaminop 5/325] hen. heparin No Notes: Memoria 01-19 porcine l 05:00: heparin [place] 00 Tylenol No Notes: Max Gerson ruddy 01-19 acetaminop l 04:11: hen = 4000 Anibal 00 mg/day (4 gm/day). (Same as: Tylenol) Saline No Notes: Memoria Flush 0.9% 01-19 (Same as: l 02:00: BD [place] 00 Posiflush) atorvastati No Notes: Gerson ruddy n 01-19 Same as l 02:00: Lipitor [place] 00 Docusate No Notes: Memoria 01-19 (Same as: l 02:00: Colace) Anibal 00 (Do Not Crush) Lisinopril No Notes: Memor ia 01-19 (Same as: l 01:58: Prinivil, [place] 00 Zestril) Keppra No Notes: Memoria 01-19 Same as l 00:46: Keppra Anbial 00 Mix with 100 mL NS, LR or D5W MEDICATION WASTE Product Size: 500 mg Product Wasted: 0 mg Saline No Notes: Memoria Flush 0.9% 01-19 (Same as: l 00:43: BD [place] 00 Posiflush) Labetalol No 105 mmHg, Me moria 01-19 Priority: l 00:43: Routine, Anibal 00 Start date: 01/19/16 19:43:00 CDT, Duration: 30 day, Stop date: 02/18/16 19:42:00 CDT Bisacodyl No Notes: Memori a 01-19 (Same As: l 00:43: Dulcolax, [place] 00 Bisco-Lax) iodixanol No 100 mL, Memor [...] Route: PO, l Hydrocodone 18:41: Drug Form: [place] Bitartrate 00 TAB, 10 MG Oral Dosing Tablet Weight [[place] 95.455, 10/325] kg, ONCE, STAT, Start date: [...] ia Original 05-30 ONCE, l 18:09: Dosing [place] 00 Weight 95.455, kg, Start date: 03/30/15 [...] 0.9% 05-30 Same as: l 16:16: BD [place] Posiflush Sterile levofloxaci 2014-05 Yes 750 mg = 1 Memoria n 750 mg 0-14 tab, PO, l oral tablet 18:38: [id number], # Anibal 00 5 tab, 0 Refill(s) Valproic 2014-05 Yes 750 mg = 3 Mem oria Acid 250 MG 0-14 cap, PO, l Oral 18:38: Q12H, # [place] Capsule 00 180 cap, 0 Refill(s) remove [...] Memoria 0-13 (Same as: l 17:07: Habitrol) [place] 00 "Remove old patch before applicatio n of new patch" Valproic 2014-05 No Notes: Memoria Acid 250 MG 0-13 (Same As: l Oral 02:00: Depakene) [place] Capsule 00 (Do Not Crush) Levaquin 2014-05 No Notes: Do Gerson ruddy 0-12 not give l 23:00: w/antacids [place] 00 , dairy pdt & minerals Take 1 hr before or 2 hr after dairy products Lorazepam 2014-05 No Notes: Memori a 0-12 (Same as: l 17:27: Ativan) [place] 00 Ativan 2014-05 No Notes: Memoria 0-12 (Same as: l 17:25: Ativan) [place] 00 fosphenytoi 2014-05 No Notes: Gerson ruddy n 0-12 (Same as: l 17:23: Cerebyx) [place] 00 Stated mg = mgPE. Refriger ate ANTICONVUL MAR Do not confuse with celebrex. MEDICATION WASTE Product Size: 500 mg Product Wasted: 0_ mg Robaxin 2014-05 No Notes: Memoria 0-12 (Same l 15:16: as:Robaxin [place] 00 ) Lisinopril 2014-05 No Notes: Memor ia 0-12 (Same as: l 14:00: Prinivil, [place] 00 Zestril) Valproic 2014-05 No Notes: Memoria Acid 100 0-12 Dilute in l MG/ML 13:09: at least [place] Injectable 00 50ml D5W Solution or NS. Infusion rate = 20 mg/min (Same As: Depacon) Acetaminoph 2014-05 No Notes: Do M emoria en 325 MG / 0-12 not exceed l Hydrocodone 10:09: 4gm/day of [place] Bitartrate 00 acetaminop 10 MG Oral hen. Tablet (Same as: [[place] 10/325] 325/10) Phenytoin 2014-05 No Notes: Memori [...] 0-12 (Same as: l Flush 04:05: BD [place] 00 Posiflush) potassium 2014-05 No Notes: Memori a chloride 0-12 Infuse at l 03:59: a rate of [place] 00 10 mEq/hr. (Same as: KCL) potassium 2014-05 No Notes: Memori a phosphate-s 0-12 (Same as: l odium 03:59: Neutra-Deja Avni n phosphate 00 s) Each 250 mg-278 1.25 gm mg-164 mg pkt has oral powder 250mg phosphorou s. Mix w/2.5oz water and stir. potassium 2014-05 No Notes: Memori a phosphate + 0-12 (Same as: l Sodium 03:59: K [place] Chloride 00 Phosphate. 0.9% IV 250 ) [...] 0-12 mL, Route: l 03:59: IVPB, Drug [place] 00 form: INJ, PRN, Dosing Weight 86.3, [...] Oxide 0-12 (Same as: l 03:59: Mag-Ox [place] 00 400) Magnesium oxide 104vs=040q g elemental magnesium Dose=____m g magnesium oxide (___mg elemental magnesium) Zosyn 2014-05 No Notes: Memoria 0-12 (Same as: l 02:00: Zosyn) [place] 00 Dosing based on Piperacill in component MEDICATION WASTE Product Size: 4500 mg Product Wasted: 0 mg Docusate 2014-05 No Notes: Memoria 0-12 (Same as: l 01:34: Colace) [place] (Do Not Crush) Ondansetron 2014-05 No Notes: [...] l gm in Water 14:52: IVPB, Drug [place] 50 ml 00 form: INJ, ONCE, Dosing [...] tab, PO, l tablet 13:18: Daily, # [place] 00 30 tab, 2 Refill(s) Valproic Yes 500 mg = 2 Mem oria Acid 250 MG 8-12 cap, PO, l Oral 13:18: Q12H, # [place] Capsule 00 120 cap, 2 Refill(s) cefpodoxime Yes Special Mem oria 100 mg oral 8-12 Instructio l tablet 13:18: ns: Take 00 until all pills are gone. Neutra-Phos No Notes: Gerson ruddy -12 (Same as: l 11:12: Neutra-Deja [place] 00 s) Each 1.25 gm pkt has [...] ruddy n 8-11 (Same l 14:00: as:Thera) [place] 00 Take with food. Thiamine No Notes: Memoria 8-11 (Same As: l 14:00: Vitamin [place] 00 B1) Acetaminoph No Notes: Do M emoria en 325 MG / 8-10 not exceed l Hydrocodone 22:00: 4gm/day of [place] Bitartrate 00 acetaminop 10 MG Oral hen. Tablet (Same as: [[place] 10/325] 325/10) Lorazepam No Notes: Memori a 8-10 (Same as: l 16:26: Ativan) [place] Fentanyl No Notes: Memoria 8-10 (Same as: l 14:25: Sublimaze) [place] 00 Preservat laila free. Valproic No Notes: Memoria Acid 250 MG 8-10 (Same As: l Oral 14:00: Depakene) [place] Capsule 00 (Do Not Crush) Docusate No Notes: Memoria Sodium 50 8-10 (Same as l MG / 14:00: Senokot-S) [place] sennosides, 00 Equiv. to LONG TERM 8.6 MG Di-Colac Oral Tablet e. heparin No Notes: Memoria 8-10 porcine l 13:00: heparin [place] 00 Sodium No 1,000 mL, Memori a Chloride 8-10 Rate: 125 l 0.154 09:51: ml/hr, [place] MEQ/ML 00 Infuse Injectable over: 8 Solution hr, Route: IV, Dosing Weight 89.9 kg, Total Volume: 1,000, Start date: 12/12/14 4:51:00, Duration: 30 day, Stop date: 01/11/15 4:50:00 Saline No Notes: Memoria Flush 0.9% 8-10 Same as: l 09:51: BD [place] 00 Posiflush Sterile Valproic No Notes: Memoria [...] 6-25 Route: PO, l 14:00: Drug Form: [place] 00 CAP, Dosing Weight 86.364, kg, QAM, [...] Memoria 6-25 tab, l 14:00: Route: PO, [place] 00 Drug form: TAB, Daily, Dosing Weight [...] 10 MG Oral hen. Tablet (Same as: [[place] 10/325] 325/10) nitroglycer No Notes: Gerson ruddy in 0.4 mg 6-25 (Same l sublingual 04:28: as:Nitroqu H ermann tablet 00 ick, Nitrostat) "Do Not Crush" Sublingual tablet atropine No 0.5 mg, 5 Gerson ruddy 6-25 mL, Route: l 04:28: IVP, Drug [place] form: INJ, PRN, PRN Bradycardi a, Start date: 10/26/14 23:28:00, Duration: 30 day, Stop date: 11/25/14 23:27:00 Lorazepam No 1 mg, Memoria 6-24 Route: l 23:06: IVP, Drug [place] form: INJ, ONCE, Dosing Weight 86.364, kg, PRN as needed for anxiety, Start date: 10/26/14 18:06:00 Dilantin No 1,000 mg, Gerson ruddy 6-24 Route: l 22:59: IVPB, [place] 00 ONCE, Dosing Weight 86.364, kg, Priority: STAT, Start date: 10/26/14 17:59:00, Stop date: 10/26/14 17:59:00 Lorazepam No 2 mg, Memoria 6-24 Route: l 22:49: IVP, Drug [place] 00 form: INJ, ONCE, Dosing Weight 86.364, kg, Priority: STAT, Start date: 10/26/14 17:49:00, Stop date: 10/26/14 17:49:00 Acetaminoph No 1 tab, Gerson ruddy en 325 MG / 6-24 Route: PO, l Hydrocodone 22:12: Drug Form: [place] Bitartrate 00 TAB, 5 MG Oral Dosing Tablet Weight [[place] 86.364, 5/325] kg, ONCE, STAT, Start date: [...] 3-18 Route: PO, l 14:00: Drug form: [place] 00 TAB, TID, Dosing Weight 85, kg, [...] 10 MG Oral hen. Tablet (Same as: [[place] 10/325] 325/10) lisdexamfet Yes 70 mg = [...] tab, 0 10 MG Oral Refill(s) Tablet [[place] 10/325] Divalproex Yes 250 mg = 1 M emoria Sodium 250 3-18 tab, PO, l MG Enteric 09:38: TID, # 270 H ermann Coated 00 tab, 0 Tablet Refill(s) [Depakote] Lorazepam No Notes: Memori a 3-18 (Same as: l 09:37: Ativan) [place] 00 Acetaminoph No Notes: Gerson ruddy en 325 MG / 3-18 (Same as: l Hydrocodone 06:40: [place] Dina nn Bitartrate 00 325/5) Do 5 [...] doses or times, Stop date: 07/19/14 17:48:00 [place] 5/325 Yes Berenice 1 tab, PO, Memoria oral tablet 2-18 Chen Q4-6H, l 23:04: PRN, 21 [place] 37 tab, as needed for pain, Substituti [...] Yih-Chowdary 6 mg, 1.5 Memoria Sulfate 2-18 Chen mL, Route: l 20:32: IM, Drug [place] 00 form: INJ, ONCE, Dosing Weight 93.182, kg, Priority: STAT, Start date: 06/22/12 14:32:00, Stop date: 06/22/12 14:32:00 Valium No Yih-Chowdary 10 mg, 1 Mem oria 2-18 Chen tab, l 20:32: Route: PO, [place] 00 Drug form: TAB, ONCE, Dosing Weight 93.182, kg, Priority: STAT, Start date: 06/22/12 14:32:00, Stop date: 06/22/12 14:32:00 [place] Yes Janae Hernández 1 tab, PO, Me moria 10/325 oral 3-09 Q6H, PRN, l tablet 18:20: 24 tab, [place] 50 for pain, Substituti on Allowed, Maintenanc [...] tab, l oral tablet 15:00: Route: PO, [place] 00 Drug form: TAB, BID, Start date: [...] l 21:00: Route: PO Drug form: TAB, [id number], Start date: 07/10/11 15:00:00, Duration: 3 day, [...] 20% 07-09ian ml, Route: l inhalation 08:00: [facility], Drug He rmann solution 00 Form: SOLN, RQ6H, Start date: 07/10/11 2:00:00, Stop date: 08/08/11 20:00:00 albuterol-i No Ju-un 3 ml, Gerson ruddy pratropium 07-09 Route: l 2.5-0.5 mg 08:00: [facility], Drug He rmann inhalation 00 Form: solution SOLN, RQ6H, Start date: 07/10/11 2:00:00, Duration: 30 day, Stop date: 08/08/11 20:00:00 Mucinex No Ju-un 600 mg, 1 Gerson ruddy 07-09 tab, l 03:00: [place] Route: PO, [place] 00 Drug form: ERTAB, Q12H, Start date: 07/09/11 21:00:00, Duration: 30 day, Stop date: 08/08/11 9:00:00 azithromyci No Ju-un 500 mg, Me moria n 07-09 Route: PO, l 03:00: [place] Drug form: [place] 00 TAB, [id number], Start date: 07/09/11 21:00:00, Duration: 30 day, Stop date: 08/07/11 21:00:00 tuberculin No Ju-un 5 unit, Mem oria purified 07-09ian 0.1 mL, l protein 02:47: [place] Route: [place] derivative 00 INTRADERM, 5 ONCE, tuberculin Start units/0.1 date: mL 07/09/11 intradermal 20:47:00, solution Stop date: 07/09/11 20:47:00 hydrALAZINE No Ju-un 10 mg, 0.5 Memoria 07-09ian mL, Route: l 02:42: [place] IV, Drug [place] 00 form: INJ, Q4H, PRN Hypertensi on, Start date: 07/09/11 20:42:00, Duration: 30 day, Stop date: 08/08/11 20:41:00, SBP greater than 150 Valium No Ju-un 10 mg, 1 Memori a 3Novian tab, l 02:37: [place] Route: PO, [place] 00 Drug form: TAB, TID, PRN as needed for anxiety, Start date: 07/09/11 20:37:00, Duration: 30 day, Stop date: 08/08/11 20:36:00 [place] No Ju-un 2 tab, Memoria 10/325 oral [...] 07-08 Route: l 23:00: [place] IVPB, Drug [place] form: PDR/INJ, [id number], Start date: 07/09/11 17:00:00, Duration: 30 day, Stop date: 08/07/11 17:00:00 Sodium 2011- No Shan Jeremias 500 mL, Mem oria Chloride 07-08 Vu Rate: 500 l 0.9% 22:18: ml/hr, [place] (Bolus) IV 00 Infuse 500 mL over: 1 hr, Route: IV, Total Volume: 500, Bolus Dose, Priority: STAT, Start date: 07/09/11 16:18:00, Duration: 1 doses or times, Stop date: 07/09/11 17:17:00 Immunizations Ordered Filled Immunization Date Status Comments Sour e Immunization Name Name SARS-COV-2 COVID-19 2020-08-15 Completed Unive rsity of MODERNA VACCINE 00:00:00 [facility] SARS-COV-2 COVID-19 2020-08-15 Completed Unive rsity of MODERNA VACCINE 00:00:00 [facility] SARS-COV-2 COVID-19 2020-08-15 Completed Unive rsity of MODERNA VACCINE 00:00:00 [facility] SARS-COV-2 COVID-19 2020-08-15 Completed Unive rsity of MODERNA VACCINE 00:00:00 [facility] Vital Signs Vital Name Observation Time Observation Value Comments Source Systolic blood 2020-09-08 13:03:00 156 mm[Hg] Univer sity of pressure [facility] Diastolic blood 2020-09-08 13:03:00 93 mm[Hg] Unive rsity of pressure [facility] Heart rate 2020-09-08 13:03:00 79 /min [facility] Body height 2020-09-08 13:03:00 180.3 cm [facility] [facility] Body weight 2020-09-08 13:03:00 115.214 kg [facility] BMI 2020-09-08 13:03:00 35.43 kg/m2 [facility] Respitory Rate 2016-05-25 18:45:00 [facility] [place] Heart Rate 2016-05-25 18:45:00 [facility] [place] Systolic (mm Hg) 2016-05-25 18:45:00 [facility] [place] Diastolic (mm Hg) 2016-05-25 18:45:00 [facility] Temperature Oral (F) 2016-05-25 18:45:00 97.8 F [facility] [place] Respitory Rate 2016-05-25 14:40:00 [facility] [place] Systolic (mm Hg) 2016-05-25 14:40:00 [facility] [place] Diastolic (mm Hg) 2016-05-25 14:40:00 [facility] Heart Rate 2016-05-25 14:40:00 [facility] [place] Temperature Oral (F) 2016-05-25 14:40:00 97.9 F [facility] Respitory Rate 2016-05-25 08:17:00 [facility] [place] Heart Rate 2016-05-25 08:17:00 [facility] Temperature Oral (F) 2016-05-25 08:17:00 97.6 F [facility] Systolic (mm Hg) 2016-05-25 08:17:00 [facility] [place] Diastolic (mm Hg) 2016-05-25 08:17:00 [facility] [place] Weight 2016-05-25 07:05:00 [facility] BMI Calculated 2016-05-25 07:05:00 [facility] [place] Height 2016-05-25 07:05:00 182.88 cm [facility] [place] Weight 2016-05-24 21:49:00 [facility] BMI Calculated 2016-05-24 21:49:00 [facility] [place] Height 2016-05-24 21:49:00 182.88 cm [facility] [place] Systolic (mm Hg) 2016-01-20 19:00:00 [facility] [place] Diastolic (mm Hg) 2016-01-20 19:00:00 [facility] [place] Respitory Rate 2016-01-20 19:00:00 [facility] [place] Systolic (mm Hg) 2016-01-20 18:00:00 [facility] [place] Diastolic (mm Hg) 2016-01-20 18:00:00 [facility] Respitory Rate 2016-01-20 18:00:00 [facility] [place] Respitory Rate 2016-01-20 17:00:00 [facility] [place] Systolic (mm Hg) 2016-01-20 17:00:00 [facility] [place] Diastolic (mm Hg) 2016-01-20 17:00:00 [facility] [place] Temperature Oral (F) 2016-01-20 03:30:00 96.2 F [facility] BMI Calculated 2016-01-20 03:12:00 [facility] [place] Height 2016-01-20 03:12:00 182.88 cm [facility] [place] Weight 2016-01-20 03:12:00 [facility] [place] Heart Rate 2016-01-20 01:45:00 [facility] [place] Temperature Oral (F) 2016-01-20 00:00:00 96.9 F [facility] [place] Weight 2016-01-19 23:26:00 [facility] BMI Calculated 2016-01-19 23:26:00 [facility] [place] Height 2016-01-19 23:26:00 182.88 cm [facility] Heart Rate 2016-01-19 23:26:00 [facility] Systolic (mm Hg) 2015-03-30 19:15:00 [facility] [place] Diastolic (mm Hg) 2015-03-30 19:15:00 [facility] [place] Temperature Oral (F) 2015-03-30 19:15:00 97.6 F [facility] Respitory Rate 2015-03-30 19:15:00 [facility] [place] Systolic (mm Hg) 2015-03-30 18:01:00 [facility] [place] Diastolic (mm Hg) 2015-03-30 18:01:00 [facility] [place] Respitory Rate 2015-03-30 18:01:00 [facility] [place] Systolic (mm Hg) 2015-03-30 17:11:00 [facility] [place] Diastolic (mm Hg) 2015-03-30 17:11:00 [facility] Heart Rate 2015-03-30 17:11:00 [facility] Respitory Rate 2015-03-30 17:11:00 [facility] [place] Weight 2015-03-30 16:12:00 [facility] [place] BMI Calculated 2015-03-30 16:12:00 [facility] [place] Height 2015-03-30 16:12:00 180.34 cm [facility] Temperature Oral (F) 2015-03-30 16:12:00 97.9 F [facility] [place] Heart Rate 2015-03-30 16:12:00 [facility] [place] Respitory Rate 2015-02-15 10:20:00 [facility] [place] Systolic (mm Hg) 2015-02-15 10:00:00 [facility] [place] Diastolic (mm Hg) 2015-02-15 10:00:00 [facility] Respitory Rate 2015-02-15 09:00:00 [facility] Respitory Rate 2015-02-15 08:00:00 [facility] [place] Systolic (mm Hg) 2015-02-15 06:00:00 [facility] [place] Diastolic (mm Hg) 2015-02-15 06:00:00 [facility] [place] Systolic (mm Hg) 2015-02-15 05:00:00 [facility] [place] Diastolic (mm Hg) 2015-02-15 05:00:00 [facility] [place] Temperature Oral (F) 2015-02-15 03:08:00 99.0 F [facility] Temperature Oral (F) 2015-02-14 03:00:00 98.7 F [facility] Temperature Oral (F) 2015-02-14 01:00:00 98.1 F [facility] [place] BMI Calculated 2015-02-13 00:55:00 [facility] [place] Height 2015-02-13 00:55:00 182.88 cm [facility] [place] Weight 2015-02-13 00:55:00 [facility] [place] Systolic (mm Hg) 2014-12-14 17:00:00 [facility] [place] Diastolic (mm Hg) 2014-12-14 17:00:00 [facility] [place] Respitory Rate 2014-12-14 17:00:00 [facility] Respitory Rate 2014-12-14 16:03:00 [facility] Respitory Rate 2014-12-14 16:02:00 [facility] [place] Systolic (mm Hg) 2014-12-14 15:51:00 [facility] [place] Diastolic (mm Hg) 2014-12-14 15:51:00 [facility] [place] Systolic (mm Hg) 2014-12-14 15:42:00 [facility] [place] Diastolic (mm Hg) 2014-12-14 15:42:00 [facility] [place] Temperature Oral (F) 2014-12-14 12:49:00 96.2 F [facility] Temperature Oral (F) 2014-12-14 11:14:00 97.0 F [facility] [place] Temperature Oral (F) 2014-12-14 05:58:00 97.0 F [facility] [place] Heart Rate 2014-12-13 15:30:00 [facility] [place] Heart Rate 2014-12-13 15:20:00 [facility] [place] Weight 2014-12-12 23:59:00 [facility] [place] Height 2014-12-12 09:52:00 182.88 cm [facility] [place] Weight 2014-12-12 09:52:00 [facility] BMI Calculated 2014-12-12 09:52:00 [facility] [place] BMI Calculated 2014-12-12 09:50:00 [facility] [place] Weight 2014-12-12 09:50:00 [facility] [place] Height 2014-12-12 09:50:00 182.88 cm [facility] Heart Rate 2014-10-27 17:00:00 [facility] Respitory Rate 2014-10-27 17:00:00 [facility] Systolic (mm Hg) 2014-10-27 17:00:00 [facility] [place] Diastolic (mm Hg) 2014-10-27 17:00:00 [facility] Temperature Oral (F) 2014-10-27 17:00:00 98.0 F [facility] [place] Heart Rate 2014-10-27 13:00:00 [facility] Respitory Rate 2014-10-27 13:00:00 [facility] [place] Systolic (mm Hg) 2014-10-27 13:00:00 [facility] [place] Diastolic (mm Hg) 2014-10-27 13:00:00 [facility] [place] Temperature Oral (F) 2014-10-27 13:00:00 98.0 F [facility] [place] Respitory Rate 2014-10-27 12:51:00 [facility] [place] Systolic (mm Hg) 2014-10-27 09:19:00 [facility] [place] Diastolic (mm Hg) 2014-10-27 09:19:00 [facility] [place] Heart Rate 2014-10-27 09:19:00 [facility] Temperature Oral (F) 2014-10-27 09:19:00 98.5 F [facility] [place] Height 2014-10-27 05:00:00 182.88 cm [facility] [place] Weight 2014-10-27 05:00:00 [facility] BMI Calculated 2014-10-27 05:00:00 [facility] BMI Calculated 2014-10-26 20:37:00 [facility] Height 2014-10-26 20:37:00 182.88 cm [facility] Weight 2014-10-26 20:37:00 [facility] [place] Systolic (mm Hg) 2014-07-20 17:00:00 [facility] [place] Diastolic (mm Hg) 2014-07-20 17:00:00 [facility] Respitory Rate 2014-07-20 17:00:00 [facility] Systolic (mm Hg) 2014-07-20 16:00:00 [facility] [place] Diastolic (mm Hg) 2014-07-20 16:00:00 [facility] [place] Respitory Rate 2014-07-20 16:00:00 [facility] Respitory Rate 2014-07-20 15:00:00 [facility] Systolic (mm Hg) 2014-07-20 14:30:00 [facility] [place] Diastolic (mm Hg) 2014-07-20 14:30:00 [facility] [place] Temperature Oral (F) 2014-07-20 11:17:00 98.0 F [facility] Temperature Oral (F) 2014-07-20 07:31:00 98.1 F [facility] [place] Heart Rate 2014-07-20 07:31:00 [facility] [place] Heart Rate 2014-07-20 04:52:00 [facility] [place] Temperature Oral (F) 2014-07-20 04:52:00 97.5 F [facility] Heart Rate 2014-07-20 01:43:00 [facility] [place] BMI Calculated 2014-07-19 22:35:00 [facility] Weight 2014-07-19 22:35:00 [facility] [place] Height 2014-07-19 22:35:00 182.88 cm [facility] Weight 2012-06-22 18:48:00 [facility] [place] Height 2012-06-22 18:48:00 182.88 cm [facility] [place] Weight 2012-03-01 01:01:00 [facility] Height 2012-03-01 01:01:00 182.88 cm [facility] Diastolic (mm Hg) 2011-07-12 15:00:00 [facility] [place] Systolic (mm Hg) 2011-07-12 15:00:00 [facility] [place] Respitory Rate 2011-07-12 15:00:00 [facility] [place] Temperature Oral (F) 2011-07-12 15:00:00 98.4 F [facility] Respitory Rate 2011-07-12 11:00:00 [facility] [place] Diastolic (mm Hg) 2011-07-12 11:00:00 [facility] [place] Systolic (mm Hg) 2011-07-12 11:00:00 [facility] [place] Temperature Oral (F) 2011-07-12 11:00:00 97.5 F [facility] Diastolic (mm Hg) 2011-07-12 02:56:00 [facility] [place] Systolic (mm Hg) 2011-07-12 02:56:00 [facility] [place] Respitory Rate 2011-07-12 02:56:00 [facility] [place] Temperature Oral (F) 2011-07-12 02:56:00 97.8 F [facility] Heart Rate 2011-07-11 22:34:00 [facility] [place] Heart Rate 2011-07-11 14:43:00 [facility] [place] Heart Rate 2011-07-11 10:00:00 [facility] [place] Height 2011-07-09 20:33:00 182.88 cm [facility] Weight 2011-07-09 20:33:00 [facility] [place] Procedures Procedure Date / Time Performed Performing Clinician Betsy elliott Cervical discectomy [facility] Her story Cervical discectomy [facility] story Discectomy [facility] [place] Vasectomy [facility] Plan of Care Planned Activity Planned Date Details Comments Source Future Scheduled 2021-09-04 Depression screening [facility] Test 00:00:00 (procedure) [code = Medical Branch 321836207] Future Scheduled 2021-09-04 Depression screening [facility] [place] Test 00:00:00 (procedure) [code = [facility] 418850510] Future Scheduled 2021-09-04 Depression screening [facility] [place] Test 00:00:00 (procedure) [code = Medical [facility] [id number]] Future Scheduled 2021-09-04 Depression screening [facility] [place] Test 00:00:00 (procedure) [code = Medical Branch 649720372] Future Scheduled 2021-01-03 INFLUENZA VACCINE Univer sity [...] Scheduled 2020-09-12 SARS-CoV-2 (COVID-19) [facility] [place] [facility] 00:00:00 Vaccine (2 - Moderna Medical Branch 2-dose series) [code = SARS-CoV-2 (COVID-19) Vaccine (2 - Moderna 2-dose series)] Future Scheduled 2020 Screening for occult [facility] Test 00:00:00 blood in feces Medical [facility] h (procedure) [code = 009037234] Future Scheduled 2020 Stool DNA-based [facility] Test 00:00:00 colorectal cancer Medical Br anch screening (procedure) [code = 559548850545633] Future Scheduled 2020 Flexible fiberoptic [facility] Test 00:00:00 sigmoidoscopy Medical Branch (procedure) [code = 58056160] Future Scheduled 2020 Screening for [facility] Test 00:00:00 malignant neoplasm of Medica l Branch colon (procedure) [code = 249576671] Future Scheduled 2020 Screening for [facility] Test 00:00:00 malignant neoplasm of Medica l Branch colon (procedure) [code = 383930310] Future Scheduled 2020 Zoster Recombinant [facility] Test 00:00:00 Vaccine (SHINGRIX) (1 Medica l Branch of 2) [code = Zoster Recombinant Vaccine (SHINGRIX) (1 of 2)] Future Scheduled 2020 Screening for occult [facility] [place] Test 00:00:00 blood in feces Medical Branc h (procedure) [code = 163126505] Future Scheduled 2020 Stool DNA-based [facility] Test 00:00:00 colorectal cancer Medical Br anch screening (procedure) [code = 238959551188158] Future Scheduled [address] [facility] [place] Test 00:00:00 sigmoidoscopy Medical Branch (procedure) [code = 82310109] Future Scheduled 2020 Screening for [facility] Test 00:00:00 malignant neoplasm of Medica l Branch colon (procedure) [code = 594788474] Future Scheduled 2020 Screening for [facility] Test 00:00:00 malignant neoplasm of Medica l Branch colon (procedure) [code = 938711988] Future Scheduled 2020 [facility] Vaccine (SHINGRIX) (1 Medica l Branch of 2) [code = Zoster Recombinant Vaccine (SHINGRIX) (1 of 2)] Future Scheduled 2020 Screening for occult [facility] [place] Test 00:00:00 blood in feces Medical Branc h (procedure) [code = 940708740] Future Scheduled 2020 Stool DNA-based [facility] Test 00:00:00 colorectal cancer Medical Br anch screening (procedure) [code = 086040735101935] Future Scheduled 2020 [facility] sigmoidoscopy [facility] Branch (procedure) [code = 59310037] Future Scheduled 2020 Screening for [facility] Test 00:00:00 malignant neoplasm of Medica l Branch colon (procedure) [code = 468175707] Future Scheduled 2020 Screening for [facility] Test 00:00:00 malignant neoplasm of Medica l Branch colon (procedure) [code = 553605620] Future Scheduled 2020 Zoster Recombinant [facility] [place] Test 00:00:00 Vaccine (SHINGRIX) (1 Medica l Branch of 2) [code = Zoster Recombinant Vaccine (SHINGRIX) (1 of 2)] Future Scheduled 2020 Screening for occult [facility] [place] Test 00:00:00 blood in feces Medical Branc h (procedure) [code = 821339947] Future Scheduled 2020 Stool DNA-based Univers[facility] Test 00:00:00 colorectal cancer Medical Br anch screening (procedure) [code = 605809593588241] Future Scheduled 2020 [facility]ible fiber[facility]00 sigmoidoscopy Medical Branch (procedure) [code = 46315234] Future Scheduled 2020 Screening for [facility] Test 00:00:00 malignant neoplasm of Medica l Branch colon (procedure) [code = 754983226] Future Scheduled 2020 Screening for [facility] Test 00:00:00 malignant neoplasm of Medica l Branch colon (procedure) [code = 050712767] Future Scheduled 2020 Zoster Recombinant Un[facility] Test 00:00:00 Vaccine (SHINGRIX) (1 Medica l Branch of 2) [code = Zoster Recombinant Vaccine (SHINGRIX) (1 of 2)] Future Scheduled 1989 DTaP,Tdap,and Td [facility] [place] Test 00:00:00 Vaccines (1 - Tdap) Medical Branch [code = DTaP,Tdap,and Td Vaccines (1 - Tdap)] Future Scheduled 1989 DTaP,Tdap,and Td [facility] [place] Test 00:00:00 Vaccines (1 - Tdap) Medical Branch [code = DTaP,Tdap,and Td Vaccines (1 - Tdap)] Future Scheduled 1989 DTaP,Tdap,and Td [facility] [place] Test 00:00:00 Vaccines (1 - Tdap) Medical Branch [code = DTaP,Tdap,and Td Vaccines (1 - Tdap)] Future Scheduled 1989 DTaP,Tdap,and Td [facility] [place] Test 00:00:00 Vaccines (1 - Tdap) Medical Branch [code = DTaP,Tdap,and Td Vaccines (1 - Tdap)] Future Scheduled 1988 [facility]00 (procedure) [code = Medical Branch 965977741] Future Scheduled 1988 [facility]00 (procedure) [code = Medical Branch 768571586] Future Scheduled 1988 Hepatitis C screening [facility] [place] Test 00:00:00 (procedure) [code = Medical Branch 957559021] Future Scheduled 1988 Hepatitis C screening [facility] [place] Test 00:00:00 (procedure) [code = Medical Branch 606254218] Future Scheduled 1976 PNEUMOCOCCAL 0-64 Univer sity [...] Type Type Clinicians Facility Department ID 2021-05-08 2021-05-16 Inpatient E DHOBLE, [facility] CAR 9367 [facility] 08:15:00 18:45:00 KIM 2016-05-24 2016-05-25 Observatio nullFlavo [facility] [id number] Memoria 21:44:00 21:20:00 n [place] 69 l [facility] 2016-01-19 2016-01-20 Inpatient nullFlavo [facility] [id number] [facility] 23:17:00 20:05:00 r [place] 00 [facility] 2015-03-30 2015-03-30 EC nullFlavo [facility] [id number] [facility] 16:10:00 19:24:00 Emergency r [place] 67 l [facility] 2015-02-12 2015-02-15 Inpatient [facility] [id number] [facility] 23:56:00 21:31:00 [place] 84 l [facility] 2014-12-12 2014-12-14 Inpatient nullFlavo [facility] [id number] [facility] 08:41:00 17:57:00 [place] 22 l [facility] 2014-10-26 2014-10-27 OBS elmoFlavo [facility] [id number] [facility] 20:29:00 20:57:00 Observatio r [place] 06 l n Patient [facility] 2014-07-19 2014-07-20 OBS nullFlavo [facility] [id number] [facility] 22:35:00 17:30:00 Observatio r [place] 67 l n Patient [facility] 2012-06-22 2012-06-22 Emergency nullFlavo [facility] [id number] Mem[facility] 12:36:00 17:25:00 r Medical 04 l [facility] 2012-02-29 2012-03-01 Emergency nullFlavo [facility] [id number] Memoria 19:52:00 02:35:00 r Medical 03 l [facility] 2011-07-09 2011-07-12 Inpatient nullFlavo [facility] [id number] Mem[facility] 18:06:00 13:31:00 r Medical 02 [facility] 2010-10-13 2010-10-13 Emergency nullFlavo [facility] [id number] Mem[facility] 10:57:00 13:12:00 r Medical 01 [facility] 2010-03-16 2010-03-16 Emergency nullFlavo [facility] [id number] Mem[facility] 09:47:00 17:11:00 r Medical 00 [facility] Results Test Description Test Time Test Comments Results Result [facility] e Comments CT HEAD W/O 2016-12-18 LOCATION: [id number]: CONTRAST 01:12:32 46-year-old male who presents with a head injury.COMMENT: After-hours service at 1:11 a.m.Axial imaging of the patient's brain was obtained with IV contrast. Soft tissueand bone window images were provided. A sagittal soft tissue reconstruction wasincluded. The study [facility]One or more of the following [...] = PLTMOR) NORMAL (1.5-3 um) NORMAL CARDIAC [id number] 01:02:00 Test Item Value Reference Range Interpretation Comments TROPONIN I (test code = A84) 0.032 ng/mL 0.000-0.045 CKMB (test code = A49) 2.4 ng/mL <=3.6 CPK (test code = 32A) 390 IU/L 39-308 H DRUGS OF [id number] 01:01:00 Test Item Value Reference Range Interpretation [...] 200 ng/mL Opiates 2000 ng/mL COMPREHENSIVE METABOLIC [id number] 01:00:00 Test Item Value Reference Range Interpretation [...] = 31A) 63 IU/L <=78 URINALYSIS WITH [id number] 00:55:00 Test Item Value Reference Range Interpretation [...] = /HPF NONE USPERM) PRO TIME AND [id number] 00:54:00 Test Item Value Reference Range Interpretation [...] Code is ANTI-XA XR CHEST 1 VIEW [id number] 00:53:14LOCATION: [id number]: 46-year-old male who presents with a fever.COMMENT: After-hours service at 12:52 a.m.A frontal chest radiograph was obtained at the bedside at 12:45 a.m. The lungs are clear and well-aerated. The cardiac silhouette, cem, andmediastinum are within normal limits. The skeleton is intact, and thesurrounding soft tissues are unremarkable. IMPRESSION:Unremarkable portable examination of the chest. URINE AND [id number] 06:51:00 Test Item Value Reference Range Interpretation Comments UA Urobilinogen (test code = UA <=1.0 mg/dL 0.1-1.0 Urobilinogen) [facility] AND [id number] 06:51:00 Test Item Value Reference Range Interpretation Comments UA Turbidity (test code = Clear (05/25/16 12:51 UA Turbidity) AM) [facility] AND [id number] 06:51:00 Test Item Value Reference Range Interpretation Comments UA Spec Grav (test code = UA Spec Grav) 1.034 [facility] AND [id number] 06:51:00 Test Item Value Reference Range Interpretation Comments UA Color (test code = Light Yellow UA Color) *NA*(05/25/16 12:51 AM) [facility] AND [id number] 06:51:00 Test Item Value Reference Range Interpretation Comments UA Ketones (test code = UA Negative mg/dL Ketones) [facility] AND [id number] 06:51:00 Test Item Value Reference Range Interpretation Comments UA Bili (test code = Negative *NA*(05/25/16 UA Bili) 12:51 AM) [facility] AND [id number] 06:51:00 Test Item Value Reference Range Interpretation Comments UA pH (test code = UA pH) 8.0 5.0-8.0 [facility] AND [id number] 06:51:00 Test Item Value Reference Range Interpretation Comments UA Protein (test code = UA Negative mg/dL Protein) [facility] AND [id number] 06:51:00 Test Item Value Reference Range Interpretation Comments UA Glucose (test code = UA Negative mg/dL Glucose) [facility] AND [id number] 06:51:00 Test Item Value Reference Range Interpretation Comments UA Sq Epi (test code = UA Sq Occasional /LPF Epi) [facility] AND [id number] 06:51:00 Test Item Value Reference Range Interpretation Comments UA RBC (test code = 1 See_Comment [Automa clarita message] The UA RBC) system which nerated this result transmit clarita reference range : <=2. The reference range was not used to interpr et this result as brendan l/abnormal. [facility] AND [id number] 06:51:00 Test Item Value Reference Range Interpretation Comments UA Blood (test code = Negative (05/25/16 12:51 UA Blood) AM) [facility] AND [id number] 06:51:00 Test Item Value Reference Range Interpretation Comments UA Nitrite (test code Negative (05/25/16 12:51 = UA Nitrite) AM) [facility] AND [id number] 06:51:00 Test Item Value Reference Range Interpretation Comments UA Leuk Est (test Negative (05/25/16 12:51 code = UA Leuk Est) AM) [facility] [id number] 22:40:00 Test Item Value Reference Range Interpretation Comments CK MB Index (test 0.9 See_Comment [Automate d message] The code = CK MB Index) system w [facility] generated this result transmit clarita reference range : <=2.5. The reference range was not used to interpr et this result as brendan l/abnormal. [facility] [id number] 22:40:00 Test Item Value Reference Range Interpretation Comments CK MB (test code = CK MB) 1.6 0.5-3.6 [facility] [id number] 22:40:00 Test Item Value Reference Range Interpretation Comments Total CK (test code = Total CK) 183 12-191 [facility] [id number] 22:40:00 Test Item Value Reference Range Interpretation Comments Troponin-I (test code no gt See_Comment [Auto mated message] The = Troponin-I) system which g enerated this result transmit clarita reference range : <=0.40. The reference r sumeet was not used to interpr et this result as brendan l/abnormal. [id number] 22:40:00 Test Item Value Reference Range Interpretation Comments AGAP (test code = AGAP) 11.7 10.0-20.0 [facility] [id number] 22:40:00 Test Item Value Reference Range Interpretation Comments eGFR (test code = eGFR) 97 [facility] H[id number] 22:40:00 Test Item Value Reference Range Interpretation Comments CO2 (test code = CO2) 27 24-32 [facility] H[id number] 22:40:00 Test Item Value Reference Range Interpretation Comments Calcium Lvl (test code = Calcium Lvl) 9.0 8.5-10.5 [facility] H[id number] 22:40:00 Test Item Value Reference Range Interpretation Comments Glucose Lvl (test code = Glucose Lvl) 110 70-99 [facility] Ho[id number] 22:40:00 Test Item Value Reference Range Interpretation Comments BUN (test code = BUN) 15 7-22 [facility] [id number] 22:40:00 Test Item Value Reference Range Interpretation Comments Potassium Lvl (test code = Potassium 3.7 3.5-5.1 Lvl) [facility] [id number] 22:40:00 Test Item Value Reference Range Interpretation Comments Sodium Lvl (test code = Sodium Lvl) 139 135-145 [facility] H[id number] 22:40:00 Test Item Value Reference Range Interpretation Comments Chloride Lvl (test code = Chloride Lvl) 104 95-109 [facility]tx[facility]xbJXQHZXNZHJOD3195-25-07 22:40:00 Test Item Value Reference Range Interpretation Comments Creatinine Lvl (test code = Creatinine 0.94 0.50-1.40 Lvl) [facility] HospitalEacpzewDSMCSQANGS5506-81-66 22:40:00 Test Item Value Reference Range Interpretation Comments Segs-Bands # (test code = Segs-Bands #) 10.7 1.5-8.1 [facility] HospitalMuorbgrPULTEYFMFZ1012-30-77 22:40:00 Test Item Value Reference Range Interpretation Comments Basophils (test code = 0.9 See_Comment [Aut omated message] The Basophils) system which ge nerated this result tra nsmitted reference range : <=1.0. The reference r sumeet was not used to int erpret this result as normal/abnormal . [facility] HospitalNnhqahlAOPQAXTSKB8664-78-35 22:40:00 Test Item Value Reference Range Interpretation Comments Eosinophils # (test code 0.2 See_Comment [A utomated message] The = Eosinophils #) system whic h generated this result tra nsmitted reference range : <=0.5. The reference r sumeet was not used to int erpret this result as normal/abnormal . [facility] HospitalAcyalmtWHSQLYWTMF1309-34-78 22:40:00 Test Item Value Reference Range Interpretation Comments Lymphocytes # (test code = Lymphocytes 2.1 1.0-5.5 #) [facility] HospitalHkqbahgKEFEFTECSQ8264-44-85 22:40:00 Test Item Value Reference Range Interpretation Comments Monocytes # (test code 1.2 See_Comment [Aut omated message] The = Monocytes #) system which generated this result tra nsmitted reference range : <=0.8. The reference r sumeet was not used to int erpret this result as normal/abnormal . [facility] HospitalErccxghRIIZUXXXAQ1793-05-52 22:40:00 Test Item Value Reference Range Interpretation Comments Basophils # (test code 0.1 See_Comment [Aut omated message] The = Basophils #) system which generated this result tra nsmitted reference range : <=0.2. The reference r sumeet was not used to int erpret this result as normal/abnormal . [facility] HospitalSispjmgECUYFFOVGT8487-28-90 22:40:00 Test Item Value Reference Range Interpretation Comments Segs (test code = Segs) 74.6 45.0-75.0 [facility] HospitalQlyydwyXLKFSXUSEU3050-87-10 22:40:00 Test Item Value Reference Range Interpretation Comments Lymphocytes (test code = Lymphocytes) 14.6 20.0-40.0 [facility] HospitalCsfjblcHGGFNWNXFT9073-92-29 22:40:00 Test Item Value Reference Range Interpretation Comments Monocytes (test code = Monocytes) 8.4 2.0-12.0 [facility] HospitalHefyzoqLHCENPFRAV3777-72-37 22:40:00 Test Item Value Reference Range Interpretation Comments Eosinophils (test code = 1.5 See_Comment [A utomated message] The Eosinophils) system which ge nerated this result tra nsmitted reference range : <=4.0. The reference r sumeet was not used to int erpret this result as normal/abnormal . [facility] HospitalFzxxpvnUXZAQBWCBX5149-51-39 22:40:00 Test Item Value Reference Range Interpretation Comments MCH (test code = MCH) 31.8 pg 27.0-31.0 [facility] HospitalKdujsedATREOTKVYQ4064-62-12 22:40:00 Test Item Value Reference Range Interpretation Comments MCV (test code = MCV) 93.9 80.0-94.0 [facility] HospitalFwczibmXAIVAYPFRW4644-23-59 22:40:00 Test Item Value Reference Range Interpretation Comments MCHC (test code = MCHC) 33.9 32.0-36.0 [facility] HospitalMwwymeiOOXQPJICGR7211-39-42 22:40:00 Test Item Value Reference Range Interpretation Comments Hct (test code = Hct) 42.7 42.0-54.0 [facility] HospitalFlijjaxZGVAUVCGCD6534-12-79 22:40:00 Test Item Value Reference Range Interpretation Comments MPV (test code = MPV) 9.7 7.4-10.4 [facility] HospitalJcfdkuxQKMYUMLCFA4913-81-49 22:40:00 Test Item Value Reference Range Interpretation Comments Platelet (test code = Platelet) 224 133-450 [facility] HospitalKsvcyzaZGBBBMZHQB0093-29-62 22:40:00 Test Item Value Reference Range Interpretation Comments RDW (test code = RDW) 12.9 11.5-14.5 [facility] HospitalDmbxvauRHTHSDCTKQ3263-62-98 22:40:00 Test Item Value Reference Range Interpretation Comments WBC (test code = WBC) 14.3 3.7-10.4 [facility] HospitalYbbmlwyFDPSQRVIBC7302-13-60 22:40:00 Test Item Value Reference Range Interpretation Comments RBC (test code = RBC) 4.55 4.70-6.10 [place] 021457-01-20 22:40:00 Test Item Value Reference Range Interpretation Comments Hgb (test code = Hgb) 14.5 14.0-18.0 [facility]2016-09-17 14:13:00 Test Item Value Reference Range Interpretation Comments eGFR (test code = eGFR) 108 [facility]2016-09-17 14:13:00 Test Item Value Reference Range Interpretation Comments Glucose Lvl (test code = Glucose Lvl) 95 70-99 [facility]2016-09-17 14:13:00 Test Item Value Reference Range Interpretation Comments BUN (test code = BUN) 13 7-22 [facility]2016-09-17 14:13:00 Test Item Value Reference Range Interpretation Comments Chloride Lvl (test code = Chloride Lvl) 104 95-109 [facility]2016-09-17 14:13:00 Test Item Value Reference Range Interpretation Comments Calcium Lvl (test code = Calcium Lvl) 8.4 8.5-10.5 [facility]2016-09-17 14:13:00 Test Item Value Reference Range Interpretation Comments CO2 (test code = CO2) 28 24-32 [facility]2016-09-17 14:13:00 Test Item Value Reference Range Interpretation Comments Creatinine Lvl (test code = Creatinine 0.80 0.50-1.40 Lvl) [facility]2016-09-17 14:13:00 Test Item Value Reference Range Interpretation Comments Potassium Lvl (test code = Potassium 3.7 3.5-5.1 Lvl) [facility]2016-09-17 14:13:00 Test Item Value Reference Range Interpretation Comments Sodium Lvl (test code = Sodium Lvl) 139 135-145 [facility]2016-09-17 14:13:00 Test Item Value Reference Range Interpretation Comments AGAP (test code = AGAP) 10.7 10.0-20.0 [facility] HospitalTrdjkckJTKOBBJMLT2117-20-77 14:13:00 Test Item Value Reference Range Interpretation Comments WBC (test code = WBC) 7.2 3.7-10.4 [facility] HospitalHtvxxsrDHBNGEDANC7576-46-07 14:13:00 Test Item Value Reference Range Interpretation Comments RBC (test code = RBC) 4.67 4.70-6.10 [facility] HospitalQylvgzwSXJCSAOQGM1740-01-14 14:13:00 Test Item Value Reference Range Interpretation Comments Hgb (test code = Hgb) 14.6 14.0-18.0 [facility] HospitalIevxykbHFXTSXDXFR6310-24-96 14:13:00 Test Item Value Reference Range Interpretation Comments MCV (test code = MCV) 92.0 80.0-94.0 [facility] HospitalMgofthmURNCOKIEBH3187-01-14 14:13:00 Test Item Value Reference Range Interpretation Comments Hct (test code = Hct) 43.0 42.0-54.0 [facility] HospitalKhvluaoPWNDXRAZTP0886-77-37 14:13:00 Test Item Value Reference Range Interpretation Comments MCH (test code = MCH) 31.2 pg 27.0-31.0 [facility] HospitalKncnjccBZMXYADHZP9788-62-66 14:13:00 Test Item Value Reference Range Interpretation Comments MCHC (test code = MCHC) 33.9 32.0-36.0 [facility] HospitalLfemcwnTYLMYQBLMK3979-06-34 14:13:00 Test Item Value Reference Range Interpretation Comments RDW (test code = RDW) 13.4 11.5-14.5 [facility] HospitalDckmoylAKQJTXTSBC2224-17-22 14:13:00 Test Item Value Reference Range Interpretation Comments Platelet (test code = Platelet) 168 133-450 [facility] HospitalXvagzwjMQDJGEMQKT0431-33-37 14:13:00 Test Item Value Reference Range Interpretation Comments MPV (test code = MPV) 10.0 7.4-10.4 [facility] HospitalHhtpiywGTDQATHYVJ0993-21-09 14:13:00 Test Item Value Reference Range Interpretation Comments Eosinophils (test code = 4.8 See_Comment [A utomated message] The Eosinophils) system which ge nerated this result tra nsmitted reference range : <=4.0. The reference r sumeet was not used to int erpret this result as normal/abnormal . [facility] HospitalLaygimcYXUKSXADLZ5596-04-05 14:13:00 Test Item Value Reference Range Interpretation Comments Lymphocytes (test code = Lymphocytes) 35.7 20.0-40.0 [facility] HospitalIwdixvkMNBCBNFLVB0496-55-29 14:13:00 Test Item Value Reference Range Interpretation Comments Monocytes (test code = Monocytes) 9.1 2.0-12.0 [facility] HospitalJlzfmlcVYTXVXVAVL3676-29-82 14:13:00 Test Item Value Reference Range Interpretation Comments Segs (test code = Segs) 49.2 45.0-75.0 [facility] HospitalKyozfzjDZTPCUBVNU4449-57-72 14:13:00 Test Item Value Reference Range Interpretation Comments Monocytes # (test code 0.7 See_Comment [Aut omated message] The = Monocytes #) system which generated this result tra nsmitted reference range : <=0.8. The reference r sumeet was not used to int erpret this result as normal/abnormal . [facility] HospitalNcndtjwADAEDQAKYP5209-04-69 14:13:00 Test Item Value Reference Range Interpretation Comments Eosinophils # (test code 0.3 See_Comment [A utomated message] The = Eosinophils #) system whic h generated this result tra nsmitted reference range : <=0.5. The reference r sumeet was not used to int erpret this result as normal/abnormal . [facility] HospitalCibdumoNRJTMZKGWC9914-39-05 14:13:00 Test Item Value Reference Range Interpretation Comments Basophils # (test code 0.1 See_Comment [Aut omated message] The = Basophils #) system which generated this result tra nsmitted reference range : <=0.2. The reference r sumeet was not used to int erpret this result as normal/abnormal . [facility] HospitalKftegpbRHXHUGEIUT2684-55-76 14:13:00 Test Item Value Reference Range Interpretation Comments Lymphocytes # (test code = Lymphocytes 2.6 1.0-5.5 #) [facility] HospitalPkszedpZJMUGCHUKE2549-60-87 14:13:00 Test Item Value Reference Range Interpretation Comments Basophils (test code = 1.2 See_Comment [Aut omated message] The Basophils) system which ge nerated this result tra nsmitted reference range : <=1.0. The reference r sumeet was not used to int erpret this result as normal/abnormal . [facility] HospitalGtxniltQFJKRTRBST1108-34-51 14:13:00 Test Item Value Reference Range Interpretation Comments Segs-Bands # (test code = Segs-Bands #) 3.5 1.5-8.1 [facility]AefqztiMKVVBSXAMC4922-50-32 14:13:00 Test Item Value Reference Range Interpretation Comments Ethanol Lvl (test code = Ethanol Lvl) no gt [facility]kbgzbTDPJARUERX3904-58-65 14:13:00 Test Item Value Reference Range Interpretation Comments Etoh (%) (test code = Etoh (%)) [facility]t [facility] [id number] 03:50:00 Test Item Value Reference Range Interpretation Comments UDS Note (test code = See Note (01/19/16 10:50 UDS Note) PM) [facility] CJGJRE9826-67-08 03:50:00 Test Item Value Reference Range Interpretation Comments U Phencyc Scr (test Negative *NA*(01/19/16 code = U Phencyc Scr) 10:50 PM) [facility] BJWDWQ1190-29-48 03:50:00 Test Item Value Reference Range Interpretation Comments U Cocaine Scr (test Negative *NA*(01/19/16 code = U Cocaine Scr) 10:50 PM) [facility] [id number] 03:50:00 Test Item Value Reference Range Interpretation Comments U Benzodia Scr (test Positive *ABN*(01/19/16 code = U Benzodia Scr) 10:50 PM) [facility] [id number] 03:50:00 Test Item Value Reference Range Interpretation Comments U Shi Scr (test code Negative *NA*(01/19/16 = U Shi Scr) 10:50 PM) [facility] [id number] 03:50:00 Test Item Value Reference Range Interpretation Comments U Amph Scr (test code Negative *NA*(01/19/16 = U Amph Scr) 10:50 PM) [facility] SLPNYR1684-22-19 03:50:00 Test Item Value Reference Range Interpretation Comments U Opiate Scr (test Positive *ABN*(01/19/16 code = U Opiate Scr) 10:50 PM) [facility] [id number] 03:50:00 Test Item Value Reference Range Interpretation Comments U Cannab Scr (test Negative *NA*(01/19/16 code = U Cannab Scr) 10:50 PM) [facility] [id number] 03:50:00 Test Item Value Reference Range Interpretation Comments UA Urobilinogen (test code = UA <=1.0 mg/dL 0.1-1.0 Urobilinogen) [facility] AND [id number] 03:50:00 Test Item Value Reference Range Interpretation Comments UA Spec Grav (test >=1.050 *ABN*(01/19/16 code = UA Spec Grav) 10:50 PM) [facility] AND [id number] 03:50:00 Test Item Value Reference Range Interpretation Comments UA WBC (test code = 1 See_Comment [Automa clarita message] The UA WBC) system which ge nerated this result transmit clarita reference range : <=5. The reference range was not used to interpr et this result as brendan l/abnormal. [facility] AND [id number] 03:50:00 Test Item Value Reference Range Interpretation Comments Micro? (test code = Performed *NA*(01/19/16 Micro?) 10:50 PM) [facility] AND [id number] 03:50:00 Test Item Value Reference Range Interpretation Comments UA Mucus (test code = UA Mucus) Moderate /LPF [facility] AND [id number] 03:50:00 Test Item Value Reference Range Interpretation Comments UA CaOx Cheryl (test code = UA CaOx Few /HPF Cheryl) [facility] AND [id number] 03:50:00 Test Item Value Reference Range Interpretation Comments UA Leuk Est (test Negative (01/19/16 10:50 code = UA Leuk Est) PM) [facility] AND [id number] 03:50:00 Test Item Value Reference Range Interpretation Comments UA Nitrite (test code Negative (01/19/16 10:50 = UA Nitrite) PM) [facility] AND [id number] 03:50:00 Test Item Value Reference Range Interpretation Comments UA Ketones (test code = UA Negative mg/dL Ketones) [facility] AND [id number] 03:50:00 Test Item Value Reference Range Interpretation Comments UA Bili (test code = Negative *NA*(01/19/16 UA Bili) 10:50 PM) [facility] AND [id number] 03:50:00 Test Item Value Reference Range Interpretation Comments UA Blood (test code = Negative (01/19/16 10:50 UA Blood) PM) [facility] AND [id number] 03:50:00 Test Item Value Reference Range Interpretation Comments UA Glucose (test code = UA Negative mg/dL Glucose) [facility] AND [id number] 03:50:00 Test Item Value Reference Range Interpretation Comments UA Protein (test code = UA Protein) 50 mg/dL [facility] AND [id number] 03:50:00 Test Item Value Reference Range Interpretation Comments UA Color (test code = Yellow *NA*(01/19/16 UA Color) 10:50 PM) [facility] AND [id number] 03:50:00 Test Item Value Reference Range Interpretation Comments UA Turbidity (test code = Clear (01/19/16 10:50 UA Turbidity) PM) [facility] AND [id number] 03:50:00 Test Item Value Reference Range Interpretation Comments UA pH (test code = UA pH) 6.0 5.0-8.0 [facility] DistrictUlvjzrmVYSGXP3840-20-46 03:35:00 Test Item Value Reference Range Interpretation Comments CHD Risk (test code = CHD Risk) 5.46 4.00-7.30 [facility]GeujnwhOJMIDB6727-37-87 03:35:00 Test Item Value Reference Range Interpretation Comments VLDL (test code = VLDL) 51 [facility] DistrictVrmbzyfDMZKZP4945-94-37 03:35:00 Test Item Value Reference Range Interpretation Comments LDL (Calculated) (test code = LDL 114 (Calculated)) [facility] CenterDtswyiiUIDDKN8380-92-36 03:35:00 Test Item Value Reference Range Interpretation Comments HDL (test code = HDL) 37 [facility] CenterKuwpfaoZPTMGT8940-16-23 03:35:00 Test Item Value Reference Range Interpretation Comments Trig (test code = Trig) 254 [facility] CenterCsvdsntLYZGGJ6074-64-37 03:35:00 Test Item Value Reference Range Interpretation Comments Chol (test code = Chol) 202 [facility] QJSWGIPHS0005-54-05 03:35:00 Test Item Value Reference Range Interpretation Comments Hgb A1C (test code = Hgb A1C) 6.0 [facility] CenterannCARDIAC COIJWAM7427-49-07 23:40:00 Test Item Value Reference Range Interpretation Comments Total CK (test code = Total CK) 144 12-191 [facility] [facility]2016-09-16 23:40:00 Test Item Value Reference Range Interpretation Comments Troponin-I (test code no gt See_Comment [Auto mated message] The = Troponin-I) system which g enerated this result transmit clarita reference range : <=0.40. The reference r sumeet was not used to interpr et this result as brendan l/abnormal. [facility] [employer] [id number] 23:40:00 Test Item Value Reference Range Interpretation Comments CK MB (test code = CK MB) 1.8 0.5-3.6 [facility] 23:40:00 Test Item Value Reference Range Interpretation Comments CK MB Index (test 1.2 See_Comment [Automate d message] The code = CK MB Index) system w [facility] generated this result transmit clarita reference range : <=2.5. The reference range was not used to interpr et this result as brendan l/abnormal. [facility] [employer]2016-09-16 23:40:00 Test Item Value Reference Range Interpretation Comments Bili Direct (test code 0.1 See_Comment [Aut omated message] The = Bili Direct) system which generated this result tra nsmitted reference range : <=0.3. The reference r sumeet was not used to int erpret this result as brendan l/abnormal. [facility] [employer]2016-09-16 23:40:00 Test Item Value Reference Range Interpretation Comments A/G Ratio (test code = A/G Ratio) 1.0 0.7-1.6 [facility] [employer]2016-09-16 23:40:00 Test Item Value Reference Range Interpretation Comments Globulin (test code = Globulin) 3.7 2.7-4.2 [facility] [employer]2016-09-16 23:40:00 Test Item Value Reference Range Interpretation Comments Bili Indirect (test 0.0 See_Comment [Automa clarita message] The code = Bili Indirect) system which generated this result tra nsmitted reference range : <=1.0. The reference r sumeet was not used to int erpret this result as normal/abnormal . [facility] [employer]2016-09-16 23:40:00 Test Item Value Reference Range Interpretation Comments Total Protein (test code = Total 7.3 6.4-8.4 Protein) [facility]2016-09-16 23:40:00 Test Item Value Reference Range Interpretation Comments Albumin Lvl (test code = Albumin Lvl) 3.6 3.5-5.0 [facility]2016-09-16 23:40:00 Test Item Value Reference Range Interpretation Comments ALT (test code = ALT) 72 See_Comment [Auto mated message] The system which ge nerated this result transmit clarita reference range : <=65. The reference range was not used to interpr et this result as brendan l/abnormal. [facility]2016-09-16 23:40:00 Test Item Value Reference Range Interpretation Comments Bili Total (test code = Bili Total) 0.1 0.2-1.3 [facility]2016-09-16 23:40:00 Test Item Value Reference Range Interpretation Comments Alk Phos (test code = Alk Phos) 103 39-136 [facility]2016-09-16 23:40:00 Test Item Value Reference Range Interpretation Comments AST (test code = AST) 39 See_Comment [Auto mated message] The system which ge nerated this result transmit clarita reference range : <=37. The reference range was not used to interpr et this result as brendan l/abnormal. [facility]2016-09-16 23:40:00 Test Item Value Reference Range Interpretation Comments Phosphorus (test code = Phosphorus) 3.8 2.5-4.5 [facility]2016-09-16 23:40:00 Test Item Value Reference Range Interpretation Comments Magnesium Lvl (test code = Magnesium 1.8 1.8-2.4 Lvl) [facility] HospitalVzmlobpYJSEBFJBFVFM1769-53-65 23:40:00 Test Item Value Reference Range Interpretation Comments AGAP (test code = AGAP) 12.0 10.0-20.0 [facility] HospitalOqigpdwLDITTLHHWIWZ4084-87-66 23:40:00 Test Item Value Reference Range Interpretation Comments Potassium Lvl (test code = Potassium 4.0 3.5-5.1 Lvl) [facility] HospitalFlbcwgcWVGIKGDWEZVL4531-00-91 23:40:00 Test Item Value Reference Range Interpretation Comments eGFR (test code = eGFR) 87 [facility] HospitalBcbruiqSIXUMLGRZPDT1695-92-46 23:40:00 Test Item Value Reference Range Interpretation Comments CO2 (test code = CO2) 29 24-32 [facility] HospitalEsfoozfWSPDBBZIEIFL4469-89-28 23:40:00 Test Item Value Reference Range Interpretation Comments Chloride Lvl (test code = Chloride Lvl) 104 95-109 [facility] HospitalFsilurxUGTFQOBTIJIQ7087-18-16 23:40:00 Test Item Value Reference Range Interpretation Comments Calcium Lvl (test code = Calcium Lvl) 8.8 8.5-10.5 [facility] HospitalMbzjxhlUYYDFXHTTANX4881-17-69 23:40:00 Test Item Value Reference Range Interpretation Comments BUN (test code = BUN) 13 7-22 [facility] HospitalIpgldyeADHINERAGTCA5958-87-64 23:40:00 Test Item Value Reference Range Interpretation Comments Glucose Lvl (test code = Glucose Lvl) 101 70-99 [facility] HospitalKietcrqPBXOHHIIUVWQ9435-25-07 23:40:00 Test Item Value Reference Range Interpretation Comments Sodium Lvl (test code = Sodium Lvl) 141 135-145 [facility] HospitalGxjzqjoLWZCYWHLKELS0116-80-35 23:40:00 Test Item Value Reference Range Interpretation Comments Creatinine Lvl (test code = Creatinine 1.03 0.50-1.40 Lvl) [facility] HospitalEkfzpleASMIKCHQXN0442-23-43 23:40:00 Test Item Value Reference Range Interpretation Comments Lymphocytes (test code = Lymphocytes) 34.9 20.0-40.0 [facility] HospitalWcpdxqhPWUNIQHNTL0502-67-32 23:40:00 Test Item Value Reference Range Interpretation Comments Monocytes (test code = Monocytes) 14.1 2.0-12.0 [facility] HospitalDgqamcoITOXVAJTJK0143-33-91 23:40:00 Test Item Value Reference Range Interpretation Comments Eosinophils (test code = 5.1 See_Comment [A utomated message] The Eosinophils) system which ge nerated this result tra nsmitted reference range : <=4.0. The reference r sumeet was not used to int erpret this result as normal/abnormal . [facility] HospitalFowxxnbBDFUZOFNPG8047-07-45 23:40:00 Test Item Value Reference Range Interpretation Comments Basophils (test code = 1.3 See_Comment [Aut omated message] The Basophils) system which ge nerated this result tra nsmitted reference range : <=1.0. The reference r sumeet was not used to int erpret this result as normal/abnormal . [facility] HospitalWxuguygWULSENITNF2502-32-45 23:40:00 Test Item Value Reference Range Interpretation Comments Segs-Bands # (test code = Segs-Bands #) 3.6 1.5-8.1 [facility] HospitalAbmssfbJZBENHGMFY2083-65-75 23:40:00 Test Item Value Reference Range Interpretation Comments Monocytes # (test code 1.1 See_Comment [Aut omated message] The = Monocytes #) system which generated this result tra nsmitted reference range : <=0.8. The reference r sumeet was not used to int erpret this result as normal/abnormal . [facility] HospitalHiadgcxQWXAHTTMUB5186-04-57 23:40:00 Test Item Value Reference Range Interpretation Comments Lymphocytes # (test code = Lymphocytes 2.8 1.0-5.5 #) [facility] Hospit[id number] 23:40:00 Test Item Value Reference Range Interpretation Comments Basophils # (test code 0.1 See_Comment [Aut omated message] The = Basophils #) system which generated this result tra nsmitted reference range : <=0.2. The reference r sumeet was not used to int erpret this result as normal/abnormal . [facility] HospitalQyxpnjzBAUVXEHZKC1682-88-23 23:40:00 Test Item Value Reference Range Interpretation Comments Eosinophils # (test code 0.4 See_Comment [A utomated message] The = Eosinophils #) system whic h generated this result tra nsmitted reference range : <=0.5. The reference r sumeet was not used to int erpret this result as normal/abnormal . [facility] H[id number] 23:40:00 Test Item Value Reference Range Interpretation Comments Segs (test code = Segs) 44.6 45.0-75.0 [facility] HospitalNbqzlndZCLWGAUIOR7846-07-18 23:40:00 Test Item Value Reference Range Interpretation Comments Hct (test code = Hct) 42.2 42.0-54.0 [facility] HospitalMyakfzgYKIZULOVPF8419-10-47 23:40:00 Test Item Value Reference Range Interpretation Comments Hgb (test code = Hgb) 14.2 14.0-18.0 [facility] HospitalOjzriumYCCPZPYSTK2814-55-21 23:40:00 Test Item Value Reference Range Interpretation Comments RBC (test code = RBC) 4.58 4.70-6.10 [facility] HospitalElzuoyhWCWPWKZWQK4269-73-43 23:40:00 Test Item Value Reference Range Interpretation Comments WBC (test code = WBC) 8.1 3.7-10.4 [facility] HospitalPzswumiEXJCEVOHFQ6109-26-51 23:40:00 Test Item Value Reference Range Interpretation Comments MCV (test code = MCV) 92.2 80.0-94.0 [facility] HospitalNxugqljCWRNTRYNLA8586-05-89 23:40:00 Test Item Value Reference Range Interpretation Comments MCH (test code = MCH) 31.0 pg 27.0-31.0 [facility] HospitalSzzquciBUZTXVJVAE4995-71-60 23:40:00 Test Item Value Reference Range Interpretation Comments MCHC (test code = MCHC) 33.6 32.0-36.0 [facility] HospitalCvfzwpgPDWVFHYPDQ7819-44-88 23:40:00 Test Item Value Reference Range Interpretation Comments Platelet (test code = Platelet) 159 133-450 [facility] HospitalPbqnhbyDZNWLKZOKN1553-61-69 23:40:00 Test Item Value Reference Range Interpretation Comments RDW (test code = RDW) 13.8 11.5-14.5 [facility] HospitalAoulxwwSCYYXZOZBU5985-41-47 23:40:00 Test Item Value Reference Range Interpretation Comments MPV (test code = MPV) 9.5 7.4-10.4 [facility] HospitalMmzubkuHSKTIZSDDG3062-11-83 23:40:00 Test Item Value Reference Range Interpretation Comments INR (test code = INR) 0.87 0.85-1.17 [facility] HospitalYyysjbiYQWULJRJVP9783-96-62 23:40:00 Test Item Value Reference Range Interpretation Comments PT (test code = PT) 12.1 s 12.0-14.7 [facility] HospitalWzkjeddUJRCDXSZCB9762-98-04 23:40:00 Test Item Value Reference Range Interpretation Comments PTT (test code = PTT) 24.3 s 22.9-35.8 [facility] DistrictLntabzpHRGTDSXMOJ1956-71-29 16:44:00 Test Item Value Reference Range Interpretation Comments Etoh (%) (test code = Etoh (%)) no gt [facility]SgucwzaXBGNUEZNYC2331-73-32 16:44:00 Test Item Value Reference Range Interpretation Comments Ethanol Lvl (test code = Ethanol Lvl) no gt [facility]annCHEM [id number] 16:21:00 Test Item Value Reference Range Interpretation Comments Phosphorus (test code = Phosphorus) 1.6 2.5-4.5 [facility]2015-11-26 16:21:00 Test Item Value Reference Range Interpretation Comments Magnesium Lvl (test code = Magnesium 2.0 1.8-2.4 Lvl) [facility]2015-11-26 16:21:00 Test Item Value Reference Range Interpretation Comments Globulin (test code = Globulin) 4.3 2.0-4.0 [facility]2015-11-26 16:21:00 Test Item Value Reference Range Interpretation Comments A/G Ratio (test code = A/G Ratio) 0.9 0.7-1.6 [place] 298365-11-26 16:21:00 Test Item Value Reference Range Interpretation Comments Alk Phos (test code = Alk Phos) 102 39-136 [facility]2015-11-26 16:21:00 Test Item Value Reference Range Interpretation Comments Bili Total (test code = Bili Total) 0.2 0.2-1.3 [place] 298365-11-26 16:21:00 Test Item Value Reference Range Interpretation Comments AST (test code = AST) 36 See_Comment [Auto mated message] The system which ge nerated this result transmit clarita reference range : <=37. The reference range was not used to interpr et this result as brendan l/abnormal. [facility]2015-11-26 16:21:00 Test Item Value Reference Range Interpretation Comments Total Protein (test code = Total 8.2 6.4-8.4 Protein) [facility]2015-11-26 16:21:00 Test Item Value Reference Range Interpretation Comments Albumin Lvl (test code = Albumin Lvl) 3.9 3.5-5.0 [place] [id number] 16:21:00 Test Item Value Reference Range Interpretation Comments ALT (test code = ALT) 61 See_Comment [Auto mated message] The system which ge nerated this result transmit clarita reference range : <=65. The reference range was not used to interpr et this result as brendan l/abnormal. [facility]2015-11-26 16:21:00 Test Item Value Reference Range Interpretation Comments Bili Direct (test code 0.0 See_Comment [Aut omated message] The = Bili Direct) system which generated this result tra nsmitted reference range : <=0.3. The reference r sumeet was not used to int erpret this result as brendan l/abnormal. [facility]2015-11-26 16:21:00 Test Item Value Reference Range Interpretation Comments Bili Indirect (test 0.2 See_Comment [Automa clarita message] The code = Bili Indirect) system which generated this result tra nsmitted reference range : <=1.0. The reference r sumeet was not used to int erpret this result as normal/abnormal . [facility]2015-11-26 16:21:00 Test Item Value Reference Range Interpretation Comments eGFR (test code = eGFR) 89 [facility]2015-11-26 16:21:00 Test Item Value Reference Range Interpretation Comments Calcium Lvl (test code = Calcium Lvl) 9.3 8.5-10.5 [facility]2015-11-26 16:21:00 Test Item Value Reference Range Interpretation Comments BUN (test code = BUN) 9 7-22 [facility]2015-11-26 16:21:00 Test Item Value Reference Range Interpretation Comments Glucose Lvl (test code = Glucose Lvl) 106 70-99 [facility]2015-11-26 16:21:00 Test Item Value Reference Range Interpretation Comments Potassium Lvl (test code = Potassium 4.5 3.5-5.1 Lvl) [facility]2015-11-26 16:21:00 Test Item Value Reference Range Interpretation Comments Sodium Lvl (test code = Sodium Lvl) 136 135-145 [facility]2015-11-26 16:21:00 Test Item Value Reference Range Interpretation Comments Creatinine Lvl (test code = Creatinine 1.02 0.50-1.40 Lvl) [facility]2015-11-26 16:21:00 Test Item Value Reference Range Interpretation Comments CO2 (test code = CO2) 26 24-32 [facility]2015-11-26 16:21:00 Test Item Value Reference Range Interpretation Comments Chloride Lvl (test code = Chloride Lvl) 101 95-109 [facility]2015-11-26 16:21:00 Test Item Value Reference Range Interpretation Comments AGAP (test code = AGAP) 13.5 10.0-20.0 [facility] [id number] 16:21:00 Test Item Value Reference Range Interpretation Comments U Phencyc Scr (test Negative *NA*(03/30/15 code = U Phencyc Scr) 10:21 AM) [facility] [id number] 16:21:00 Test Item Value Reference Range Interpretation Comments UDS Note (test code = See Note *NA*(03/30/15 UDS Note) 10:21 AM) [facility] [id number] 16:21:00 Test Item Value Reference Range Interpretation Comments U Cocaine Scr (test Negative *NA*(03/30/15 code = U Cocaine Scr) 10:21 AM) [facility] [id number] 16:21:00 Test Item Value Reference Range Interpretation Comments U Cannab Scr (test Negative *NA*(03/30/15 code = U Cannab Scr) 10:21 AM) [facility] [id number] 16:21:00 Test Item Value Reference Range Interpretation Comments U Benzodia Scr (test Negative *NA*(03/30/15 code = U Benzodia Scr) 10:21 AM) [facility] [id number] 16:21:00 Test Item Value Reference Range Interpretation Comments U Shi Scr (test code Negative *NA*(03/30/15 = U Shi Scr) 10:21 AM) [facility] [id number] 16:21:00 Test Item Value Reference Range Interpretation Comments U Opiate Scr (test Negative *NA*(03/30/15 code = U Opiate Scr) 10:21 AM) [facility] [id number] 16:21:00 Test Item Value Reference Range Interpretation Comments U Amph Scr (test code Negative *NA*(03/30/15 = U Amph Scr) 10:21 AM) [facility] DistrictArffijsBPYKXEJZRA3017-11-90 16:21:00 Test Item Value Reference Range Interpretation Comments PT (test code = PT) 11.9 s 12.0-14.7 [facility] DistrictDgexchmMHTXZWVIYE9280-70-51 16:21:00 Test Item Value Reference Range Interpretation Comments INR (test code = INR) 0.85 0.85-1.17 [facility] Dis[id number] 16:21:00 Test Item Value Reference Range Interpretation Comments PTT (test code = PTT) 22.7 s 22.9-35.8 [facility] DistrictGvawcajWRPMBUTHYN8843-37-23 16:21:00 Test Item Value Reference Range Interpretation Comments Valproic Acid Lvl (test code = Valproic 4 50-100 Acid Lvl) [facility] AND [id number] 16:21:00 Test Item Value Reference Range Interpretation Comments UA RBC (test None Seen See_Comment [Automated mes aisha] code = UA RBC) (03/30/15 10:21 The system which AM) generated this result transmitted ref erence range: <=2. The reference range was not used to int erpret this result as normal/abnormal . [facility] AND [id number] 16:21:00 Test Item Value Reference Range Interpretation Comments UA Sq Epi (test code = UA Sq Epi) Rare /LPF [facility] AND [id number] 16:21:00 Test Item Value Reference Range Interpretation Comments UA WBC (test code = UA WBC) 0-2 /HPF [facility] AND [id number] 16:21:00 Test Item Value Reference Range Interpretation Comments UA Blood (test code = Negative (03/30/15 10:21 UA Blood) AM) [facility] AND [id number] 16:21:00 Test Item Value Reference Range Interpretation Comments UA Leuk Est (test Negative (03/30/15 10:21 code = UA Leuk Est) AM) [facility] AND [id number] 16:21:00 Test Item Value Reference Range Interpretation Comments UA Urobilinogen (test code = UA 0.2 0.1-1.0 Urobilinogen) [facility] AND [id number] 16:21:00 Test Item Value Reference Range Interpretation Comments UA Bili (test code = Negative *NA*(03/30/15 UA Bili) 10:21 AM) [facility] AND [id number] 16:21:00 Test Item Value Reference Range Interpretation Comments UA Ketones (test code = UA Negative mg/dL Ketones) [facility] AND [id number] 16:21:00 Test Item Value Reference Range Interpretation Comments UA Glucose (test code = UA Negative mg/dL Glucose) [facility] AND [id number] 16:21:00 Test Item Value Reference Range Interpretation Comments UA Protein (test code = UA Negative mg/dL Protein) [facility] AND [id number] 16:21:00 Test Item Value Reference Range Interpretation Comments UA pH (test code = UA pH) 7.5 1 5.0-8.0 [facility] AND [id number] 16:21:00 Test Item Value Reference Range Interpretation Comments UA Spec Grav (test code = UA Spec 1.015 1 Grav) [facility] AND [id number] 16:21:00 Test Item Value Reference Range Interpretation Comments UA Color (test code = Yellow *NA*(03/30/15 UA Color) 10:21 AM) [facility] AND [id number] 16:21:00 Test Item Value Reference Range Interpretation Comments UA Turbidity (test code = Clear (03/30/15 UA Turbidity) 10:21 AM) [facility] AND [id number] 16:21:00 Test Item Value Reference Range Interpretation Comments UA Nitrite (test code Negative (03/30/15 = UA Nitrite) 10:21 AM) [facility] DistrictYfffnucBCCQIYGXUN0686-27-05 09:44:00 Test Item Value Reference Range Interpretation Comments Phenytoin Total (test code = Phenytoin 14.4 10.0-20.0 Total) [facility]HnsifgoQTWNPTOOBR9064-28-95 09:44:00 Test Item Value Reference Range Interpretation Comments Phenytoin Free (test code = Phenytoin 1.31 1.00-2.00 Free) [facility]annCARDIAC [id number] 09:00:00 Test Item Value Reference Range Interpretation Comments Total CK (test code = Total CK) 44 12-191 [facility]annCHEM [id number] 09:00:00 Test Item Value Reference Range Interpretation Comments Magnesium Lvl (test code = Magnesium 2.0 1.8-2.4 Lvl) [facility] [id number] 09:00:00 Test Item Value Reference Range Interpretation Comments Phosphorus (test code = Phosphorus) 2.7 2.5-4.5 [facility]2015-10-13 09:00:00 Test Item Value Reference Range Interpretation Comments Creatinine Lvl (test code = Creatinine 0.7 0.5-1.4 Lvl) [facility]2015-10-13 09:00:00 Test Item Value Reference Range Interpretation Comments Sodium Lvl (test code = Sodium Lvl) 142 135-145 [facility]2015-10-13 09:00:00 Test Item Value Reference Range Interpretation Comments Potassium Lvl (test code = Potassium 4.1 3.5-5.1 Lvl) [facility]2015-10-13 09:00:00 Test Item Value Reference Range Interpretation Comments Calcium Lvl (test code = Calcium Lvl) 8.2 8.5-10.5 [facility]2015-10-13 09:00:00 Test Item Value Reference Range Interpretation Comments Chloride Lvl (test code = Chloride Lvl) 108 95-109 [facility]2015-10-13 09:00:00 Test Item Value Reference Range Interpretation Comments Glucose Lvl (test code = Glucose Lvl) 103 70-99 [facility]2015-10-13 09:00:00 Test Item Value Reference Range Interpretation Comments B/C Ratio (test code = B/C Ratio) 13 6-25 [facility]2015-10-13 09:00:00 Test Item Value Reference Range Interpretation Comments AGAP (test code = AGAP) 9.1 10.0-20.0 [facility]2015-10-13 09:00:00 Test Item Value Reference Range Interpretation Comments BUN (test code = BUN) 9 7-22 [place] [id number] 09:00:00 Test Item Value Reference Range Interpretation Comments CO2 (test code = CO2) 29 24-32 [place] 298365-10-13 09:00:00 Test Item Value Reference Range Interpretation Comments Total Protein (test code = Total 5.8 6.4-8.4 Protein) [place] 298365-10-13 09:00:00 Test Item Value Reference Range Interpretation Comments ALT (test code = ALT) 28 See_Comment [Auto mated message] The system which ge nerated this result transmit clarita reference range : <=65. The reference range was not used to interpr et this result as brendan l/abnormal. [facility]2015-10-13 09:00:00 Test Item Value Reference Range Interpretation Comments A/G Ratio (test code = A/G Ratio) 0.9 0.7-1.6 [place] 298365-10-13 09:00:00 Test Item Value Reference Range Interpretation Comments Albumin Lvl (test code = Albumin Lvl) 2.7 3.5-5.0 [facility]2015-10-13 09:00:00 Test Item Value Reference Range Interpretation Comments Globulin (test code = Globulin) 3.1 2.0-4.0 [facility]2015-10-13 09:00:00 Test Item Value Reference Range Interpretation Comments Bili Total (test code = Bili Total) 0.2 0.2-1.3 [facility]2015-10-13 09:00:00 Test Item Value Reference Range Interpretation Comments AST (test code = AST) 17 See_Comment [Auto mated message] The system which ge nerated this result transmit clarita reference range : <=37. The reference range was not used to interpr et this result as brendan l/abnormal. [facility]2015-10-13 09:00:00 Test Item Value Reference Range Interpretation Comments Alk Phos (test code = Alk Phos) 72 39-136 [facility]2015-10-13 09:00:00 Test Item Value Reference Range Interpretation Comments eGFR (test code = eGFR) 115 [facility] HospitalCqaitflYMXSVYZXPN3194-72-62 09:00:00 Test Item Value Reference Range Interpretation Comments Eosinophils # (test code 0.3 See_Comment [A utomated message] The = Eosinophils #) system whic h generated this result tra nsmitted reference range : <=0.5. The reference r sumeet was not used to int erpret this result as normal/abnormal . [facility] HospitalTrsqzexJQOHUTWWBJ7901-12-34 09:00:00 Test Item Value Reference Range Interpretation Comments Macrocyte (test code = 1+ *ABN*(02/14/15 Macrocyte) 4:00 AM) [facility] HospitalZomrbsgDTMCDMWPBU8662-84-72 09:00:00 Test Item Value Reference Range Interpretation Comments Segs-Bands # (test code = Segs-Bands #) 5.2 1.5-8.1 [facility] HospitalNvtijfwUZHKXLRUOR0912-15-24 09:00:00 Test Item Value Reference Range Interpretation Comments Lymphocytes # (test code = Lymphocytes 2.2 1.0-5.5 #) [facility] HospitalTzzhpuhAAAUSXQEAL7064-36-12 09:00:00 Test Item Value Reference Range Interpretation Comments Monocytes # (test code 0.9 See_Comment [Aut omated message] The = Monocytes #) system which generated this result tra nsmitted reference range : <=0.8. The reference r sumeet was not used to int erpret this result as normal/abnormal . [facility] HospitalOufmspoVUXGRAFSGH3008-25-38 09:00:00 Test Item Value Reference Range Interpretation Comments Basophils (test code = 0.5 See_Comment [Aut omated message] The Basophils) system which ge nerated this result tra nsmitted reference range : <=1.0. The reference r sumeet was not used to int erpret this result as normal/abnormal . [facility] HospitalFqdbnroUUBDPZUXPL0683-87-79 09:00:00 Test Item Value Reference Range Interpretation Comments Eosinophils (test code = 3.7 See_Comment [A utomated message] The Eosinophils) system which ge nerated this result tra nsmitted reference range : <=4.0. The reference r sumeet was not used to int erpret this result as normal/abnormal . [facility] HospitalMiuhuhfZDOHQABXUX1492-24-04 09:00:00 Test Item Value Reference Range Interpretation Comments Plt Morph (test code = Normal (02/14/15 4:00 Plt Morph) AM) [facility] HospitalEbizmozNSWKSRZWFD5077-24-63 09:00:00 Test Item Value Reference Range Interpretation Comments Segs (test code = Segs) 59.6 45.0-75.0 [facility] HospitalMicikxtEZJOJAODIB4131-47-91 09:00:00 Test Item Value Reference Range Interpretation Comments Lymphocytes (test code = Lymphocytes) 25.8 20.0-40.0 [facility] HospitalDmlomsvESWINJUWHH1203-89-29 09:00:00 Test Item Value Reference Range Interpretation Comments Monocytes (test code = Monocytes) 10.4 2.0-12.0 [facility] HospitalDtugvmnMPZRFRKRCK0247-56-44 09:00:00 Test Item Value Reference Range Interpretation Comments MPV (test code = MPV) 9.6 7.4-10.4 [facility] HospitalTpgingaHWGONPDCSS6638-12-67 09:00:00 Test Item Value Reference Range Interpretation Comments Platelet (test code = Platelet) 163 133-450 [facility] HospitalOokpsbkZXGYOPPFJF4509-78-80 09:00:00 Test Item Value Reference Range Interpretation Comments RDW (test code = RDW) 13.7 11.5-14.5 [facility] HospitalTeshrbhJZNRJQPSKD0487-54-03 09:00:00 Test Item Value Reference Range Interpretation Comments MCHC (test code = MCHC) 33.0 32.0-36.0 [facility] HospitalRlnqwitONUZSIBDAL8598-85-07 09:00:00 Test Item Value Reference Range Interpretation Comments MCH (test code = MCH) 31.8 pg 27.0-31.0 [facility] HospitalCzkbzpjUEGMETKHGY2972-09-24 09:00:00 Test Item Value Reference Range Interpretation Comments MCV (test code = MCV) 96.6 80.0-94.0 [facility] HospitalCrswmdnQGUGMCIACU0622-02-54 09:00:00 Test Item Value Reference Range Interpretation Comments Hct (test code = Hct) 37.3 42.0-54.0 [facility] HospitalOcmmxnjBXSUFDRXYF6036-81-77 09:00:00 Test Item Value Reference Range Interpretation Comments Hgb (test code = Hgb) 12.3 14.0-18.0 [facility] HospitalUuspbufCHKFKYQVAH5355-41-95 09:00:00 Test Item Value Reference Range Interpretation Comments RBC (test code = RBC) 3.87 4.70-6.10 [facility] HospitalWwjdyyjSXFSHADCVC9633-16-49 09:00:00 Test Item Value Reference Range Interpretation Comments WBC (test code = WBC) 8.7 3.7-10.4 [place] [address]2015-10-13 09:00:00 Test Item Value Reference Range Interpretation Comments Valproic Acid Lvl (test code = Valproic 49 50-100 Acid Lvl) [place] [address]2015-10-13 09:00:00 Test Item Value Reference Range Interpretation Comments Phenytoin Free (test code = Phenytoin 2.16 1.00-2.00 Free) [place] [address]2015-10-13 09:00:00 Test Item Value Reference Range Interpretation Comments Phenytoin Total (test code = Phenytoin 16.6 10.0-20.0 Total) [facility] DistrictWrzahomBVBOOVZGDZ1498-82-67 15:22:00 Test Item Value Reference Range Interpretation Comments Phenytoin Free (test code = Phenytoin 0.22 1.00-2.00 Free) [facility] DistrictHraivjvQNPBSWEFXF5119-41-88 15:22:00 Test Item Value Reference Range Interpretation Comments Phenytoin Total (test code = Phenytoin 1.9 10.0-20.0 Total) [facility] AND [id number] 09:14:00 Test Item Value Reference Range Interpretation Comments UA Urobilinogen (test code = UA <=1.0 mg/dL 0.1-1.0 Urobilinogen) [facility] AND [id number] 09:14:00 Test Item Value Reference Range Interpretation Comments UA Glucose (test code = UA Glucose) 50mg/dl [facility] AND [id number] 09:14:00 Test Item Value Reference Range Interpretation Comments UA Ketones (test code = UA Ketones) Negative [facility] AND [id number] 09:14:00 Test Item Value Reference Range Interpretation Comments UA Mucus (test code = UA Mucus) Few /LPF [facility] AND [id number] 09:14:00 Test Item Value Reference Range Interpretation Comments UA Sq Epi (test code = UA Sq Epi) Few /LPF [facility] AND [id number] 09:14:00 Test Item Value Reference Range Interpretation Comments UA Leuk Est (test Negative (02/13/15 4:14 code = UA Leuk Est) AM) [facility] AND [id number] 09:14:00 Test Item Value Reference Range Interpretation Comments UA Nitrite (test code Negative (02/13/15 4:14 = UA Nitrite) AM) [facility] AND [id number] 09:14:00 Test Item Value Reference Range Interpretation Comments UA RBC (test code = no gt See_Comment [Automa clarita message] The UA RBC) system which ge nerated this result transmit clarita reference range : <=2. The reference range was not used to interpr et this result as brendan l/abnormal. [facility] AND [id number] 09:14:00 Test Item Value Reference Range Interpretation Comments UA WBC (test code = 1 See_Comment [Automa clarita message] The UA WBC) system which ge nerated this result transmit clarita reference range : <=5. The reference range was not used to interpr et this result as brendan l/abnormal. [facility] AND [id number] 09:14:00 Test Item Value Reference Range Interpretation Comments UA Blood (test code = Negative (02/13/15 4:14 UA Blood) AM) [facility] AND [id number] 09:14:00 Test Item Value Reference Range Interpretation Comments UA Bili (test code = Negative *NA*(02/13/15 UA Bili) 4:14 AM) [facility] AND [id number] 09:14:00 Test Item Value Reference Range Interpretation Comments UA Protein (test code = UA Negative mg/dL Protein) [facility] AND [id number] 09:14:00 Test Item Value Reference Range Interpretation Comments UA pH (test code = UA pH) 7.0 5.0-8.0 [facility] AND [id number] 09:14:00 Test Item Value Reference Range Interpretation Comments UA Spec Grav (test code = UA Spec Grav) 1.019 [facility] AND [id number] 09:14:00 Test Item Value Reference Range Interpretation Comments UA Turbidity (test code = Clear (02/13/15 4:14 UA Turbidity) AM) [facility] AND [id number] 09:14:00 Test Item Value Reference Range Interpretation Comments UA Color (test code = Light Yellow UA Color) *NA*(02/13/15 4:14 AM) [id number] 08:37:[facility] Test Item Value Reference Range Interpretation Comments Phosphorus (test code = Phosphorus) 2.1 2.5-4.5 [facility] [id number] 08:37:00 Test Item Value Reference Range Interpretation Comments Magnesium Lvl (test code = Magnesium 1.8 1.8-2.4 Lvl) [facility]2015-10-12 08:37:00 Test Item Value Reference Range Interpretation Comments eGFR (test code = eGFR) 109 [facility]2015-10-12 08:37:00 Test Item Value Reference Range Interpretation Comments Sodium Lvl (test code = Sodium Lvl) 140 135-145 [facility]2015-10-12 08:37:00 Test Item Value Reference Range Interpretation Comments Potassium Lvl (test code = Potassium 3.9 3.5-5.1 Lvl) [facility]2015-10-12 08:37:00 Test Item Value Reference Range Interpretation Comments Creatinine Lvl (test code = Creatinine 0.8 0.5-1.4 Lvl) [facility]2015-10-12 08:37:00 Test Item Value Reference Range Interpretation Comments BUN (test code = BUN) 14 7-22 [facility]2015-10-12 08:37:00 Test Item Value Reference Range Interpretation Comments Chloride Lvl (test code = Chloride Lvl) 105 95-109 [facility]2015-10-12 08:37:00 Test Item Value Reference Range Interpretation Comments ALT (test code = ALT) 35 See_Comment [Auto mated message] The system which ge nerated this result transmit clarita reference range : <=65. The reference range was not used to interpr et this result as brendan l/abnormal. [facility]2015-10-12 08:37:00 Test Item Value Reference Range Interpretation Comments Total Protein (test code = Total 5.8 6.4-8.4 Protein) [facility]2015-10-12 08:37:00 Test Item Value Reference Range Interpretation Comments Alk Phos (test code = Alk Phos) 76 39-136 [facility]2015-10-12 08:37:00 Test Item Value Reference Range Interpretation Comments Glucose Lvl (test code = Glucose Lvl) 94 70-99 [facility]2015-10-12 08:37:00 Test Item Value Reference Range Interpretation Comments AST (test code = AST) 23 See_Comment [Auto mated message] The system which ge nerated this result transmit clarita reference range : <=37. The reference range was not used to interpr et this result as brendan l/abnormal. [facility]2015-10-12 08:37:00 Test Item Value Reference Range Interpretation Comments Bili Total (test code = Bili Total) 1.0 0.2-1.3 [place] [id number] 08:37:00 Test Item Value Reference Range Interpretation Comments Albumin Lvl (test code = Albumin Lvl) 3.0 3.5-5.0 [facility]2015-10-12 08:37:00 Test Item Value Reference Range Interpretation Comments Calcium Lvl (test code = Calcium Lvl) 8.3 8.5-10.5 [facility]2015-10-12 08:37:00 Test Item Value Reference Range Interpretation Comments CO2 (test code = CO2) 27 24-32 [facility]2015-10-12 08:37:00 Test Item Value Reference Range Interpretation Comments B/C Ratio (test code = B/C Ratio) 18 6-25 [facility]2015-10-12 08:37:00 Test Item Value Reference Range Interpretation Comments Globulin (test code = Globulin) 2.8 2.0-4.0 [facility]2015-10-12 08:37:00 Test Item Value Reference Range Interpretation Comments A/G Ratio (test code = A/G Ratio) 1.1 0.7-1.6 [facility]2015-10-12 08:37:00 Test Item Value Reference Range Interpretation Comments AGAP (test code = AGAP) 11.9 10.0-20.0 [facility] HospitalEjbzvxtKEQVGXIPGF0359-71-17 08:37:00 Test Item Value Reference Range Interpretation Comments MPV (test code = MPV) 9.1 7.4-10.4 [facility] HospitalCiruawdNHCLJWMYIE5483-02-28 08:37:00 Test Item Value Reference Range Interpretation Comments Platelet (test code = Platelet) 164 133-450 [facility] HospitalTyunuwfMKVSVJWHRO4447-66-36 08:37:00 Test Item Value Reference Range Interpretation Comments MCHC (test code = MCHC) 33.5 32.0-36.0 [facility] HospitalBnuejykXVFYAOERPD3409-23-23 08:37:00 Test Item Value Reference Range Interpretation Comments RDW (test code = RDW) 13.6 11.5-14.5 [facility] HospitalNjnpxjxYLZOOFJDZS3342-45-09 08:37:00 Test Item Value Reference Range Interpretation Comments Hct (test code = Hct) 38.4 42.0-54.0 [facility] HospitalDjerzmoEVZIHGJZIF9669-43-08 08:37:00 Test Item Value Reference Range Interpretation Comments MCV (test code = MCV) 95.6 80.0-94.0 [facility] HospitalVkmnqlgBWMMYOCFUK7008-03-69 08:37:00 Test Item Value Reference Range Interpretation Comments RBC (test code = RBC) 4.01 4.70-6.10 [facility] HospitalWsbzlohLIMWJIQXIQ8729-76-68 08:37:00 Test Item Value Reference Range Interpretation Comments Hgb (test code = Hgb) 12.8 14.0-18.0 [facility] HospitalEpgontzHPXBIWARQI4552-03-25 08:37:00 Test Item Value Reference Range Interpretation Comments MCH (test code = MCH) 32.0 pg 27.0-31.0 [facility] HospitalHhooowcAWMQFETSBZ8604-61-82 08:37:00 Test Item Value Reference Range Interpretation Comments WBC (test code = WBC) 15.6 3.7-10.4 [facility] HospitalWzfiuujDNBEZZHBJB5627-67-50 08:37:00 Test Item Value Reference Range Interpretation Comments Segs-Bands # (test code = Segs-Bands #) 12.2 1.5-8.1 [facility] HospitalYxdfyqvJLOSLJLHEZ1752-90-13 08:37:00 Test Item Value Reference Range Interpretation Comments Lymphocytes # (test code = Lymphocytes 1.7 1.0-5.5 #) [facility] HospitalYisdwqbLWRRLSCEWI8121-15-61 08:37:00 Test Item Value Reference Range Interpretation Comments Macrocyte (test code = 1+ *ABN*(02/13/15 Macrocyte) 3:37 AM) [facility] HospitalYxnbgtmSLRYNXJHOH8632-19-90 08:37:00 Test Item Value Reference Range Interpretation Comments Monocytes # (test code 1.5 See_Comment [Aut omated message] The = Monocytes #) system which generated this result tra nsmitted reference range : <=0.8. The reference r sumeet was not used to int erpret this result as normal/abnormal . [facility] HospitalAdibjnaARFSXSVVWX5083-48-64 08:37:00 Test Item Value Reference Range Interpretation Comments Eosinophils # (test code 0.2 See_Comment [A utomated message] The = Eosinophils #) system whic h generated this result tra nsmitted reference range : <=0.5. The reference r sumeet was not used to int erpret this result as normal/abnormal . [facility] HospitalTlxsgkhJVTTZQMVTJ7395-25-46 08:37:00 Test Item Value Reference Range Interpretation Comments Lymphocytes (test code = Lymphocytes) 11.1 20.0-40.0 [facility] HospitalZctvzolPBZUVYUOFO4814-65-74 08:37:00 Test Item Value Reference Range Interpretation Comments Monocytes (test code = Monocytes) 9.4 2.0-12.0 [facility] HospitalQvlnxuaLCTVLKAUDH6507-56-21 08:37:00 Test Item Value Reference Range Interpretation Comments Segs (test code = Segs) 78.1 45.0-75.0 [facility] HospitalZvuqoleLUJRATFCIM9322-51-32 08:37:00 Test Item Value Reference Range Interpretation Comments Basophils (test code = 0.3 See_Comment [Aut omated message] The Basophils) system which ge nerated this result tra nsmitted reference range : <=1.0. The reference r sumeet was not used to int erpret this result as normal/abnormal . [facility] HospitalCxvuafcVYMAUZKRLD4796-87-78 08:37:00 Test Item Value Reference Range Interpretation Comments Eosinophils (test code = 1.1 See_Comment [A utomated message] The Eosinophils) system which ge nerated this result tra nsmitted reference range : <=4.0. The reference r sumeet was not used to int erpret this result as normal/abnormal . [place] [address]2015-10-12 04:15:00 Test Item Value Reference Range Interpretation Comments Valproic Acid Lvl (test code = Valproic 11 50-100 Acid Lvl) [place] [address]2015-08-12 14:26:00 Test Item Value Reference Range Interpretation Comments Valproic Acid Lvl (test code = Valproic 27 50-100 Acid Lvl) [facility]2015-08-12 07:28:00 Test Item Value Reference Range Interpretation Comments Magnesium Lvl (test code = Magnesium 1.7 1.8-2.4 Lvl) [facility]2015-08-12 07:28:00 Test Item Value Reference Range Interpretation Comments Phosphorus (test code = Phosphorus) 2.3 2.5-4.5 [facility] HospitalJffcbprZPCBVJWDINJR4325-89-64 07:28:00 Test Item Value Reference Range Interpretation Comments AGAP (test code = AGAP) 11.5 10.0-20.0 [facility] HospitalJnvretgKNPJPXDHIYLC6235-09-07 07:28:00 Test Item Value Reference Range Interpretation Comments eGFR (test code = eGFR) 115 [facility] HospitalZnrlsjaLUTOLMABPSSY4142-74-71 07:28:00 Test Item Value Reference Range Interpretation Comments Glucose Lvl (test code = Glucose Lvl) 78 70-99 [facility] HospitalKdfbrxlRSOFRCMTXZKB8281-83-24 07:28:00 Test Item Value Reference Range Interpretation Comments BUN (test code = BUN) 11 7-22 [facility] HospitalMutvlxnIYFTUZBYGKWR1048-59-04 07:28:00 Test Item Value Reference Range Interpretation Comments Calcium Lvl (test code = Calcium Lvl) 8.4 8.5-10.5 [facility] HospitalOjdaqsyMKWOAXJWBVFD2130-82-51 07:28:00 Test Item Value Reference Range Interpretation Comments Chloride Lvl (test code = Chloride Lvl) 110 95-109 [facility] HospitalZmddcaoTAYQAYDIAQSO5478-60-62 07:28:00 Test Item Value Reference Range Interpretation Comments CO2 (test code = CO2) 26 24-32 [facility] HospitalEqkcsboHDIBNHENAZPN0854-96-73 07:28:00 Test Item Value Reference Range Interpretation Comments Creatinine Lvl (test code = Creatinine 0.7 0.5-1.4 Lvl) [facility] HospitalViebobmIDDFAFWRHVPQ4823-48-34 07:28:00 Test Item Value Reference Range Interpretation Comments Sodium Lvl (test code = Sodium Lvl) 143 135-145 [facility] HospitalZiturpyHLQOYNMDXLRB6370-77-33 07:28:00 Test Item Value Reference Range Interpretation Comments Potassium Lvl (test code = Potassium 4.5 3.5-5.1 Lvl) [facility] HospitalTgicpxuRMQYYFIGAC6419-09-99 07:28:00 Test Item Value Reference Range Interpretation Comments Lymphocytes # (test code = Lymphocytes 2.5 1.0-5.5 #) [facility] HospitalAcxgevoWQJIEYVRAA8135-20-18 07:28:00 Test Item Value Reference Range Interpretation Comments Basophils # (test code 0.1 See_Comment [Aut omated message] The = Basophils #) system which generated this result tra nsmitted reference range : <=0.2. The reference r sumeet was not used to int erpret this result as normal/abnormal . [facility] HospitalFptjouxPSELHNRAXB6166-63-77 07:28:00 Test Item Value Reference Range Interpretation Comments Eosinophils # (test code 0.3 See_Comment [A utomated message] The = Eosinophils #) system whic h generated this result tra nsmitted reference range : <=0.5. The reference r sumeet was not used to int erpret this result as normal/abnormal . [facility] HospitalBznhhkxTUFGMQGDUQ2000-05-83 07:28:00 Test Item Value Reference Range Interpretation Comments Monocytes # (test code 0.6 See_Comment [Aut omated message] The = Monocytes #) system which generated this result tra nsmitted reference range : <=0.8. The reference r sumeet was not used to int erpret this result as normal/abnormal . [facility] HospitalXwdqsddNTEYLRSSVA5165-35-60 07:28:00 Test Item Value Reference Range Interpretation Comments Monocytes (test code = Monocytes) 9.0 2.0-12.0 [facility] HospitalZtqlhxnKQFRZJUVGR8216-11-72 07:28:00 Test Item Value Reference Range Interpretation Comments Basophils (test code = 1.0 See_Comment [Aut omated message] The Basophils) system which ge nerated this result tra nsmitted reference range : <=1.0. The reference r sumeet was not used to int erpret this result as normal/abnormal . [facility] HospitalZjmztujZQIYORILWO4354-57-36 07:28:00 Test Item Value Reference Range Interpretation Comments Segs-Bands # (test code = Segs-Bands #) 2.7 1.5-8.1 [facility] HospitalCcfhwwcZUWYSNEPCU9132-46-18 07:28:00 Test Item Value Reference Range Interpretation Comments Eosinophils (test code = 5.0 See_Comment [A utomated message] The Eosinophils) system which ge nerated this result tra nsmitted reference range : <=4.0. The reference r sumete was not used to int erpret this result as normal/abnormal . [facility] HospitalYfbhyhnRSRLOIWDSR3523-01-49 07:28:00 Test Item Value Reference Range Interpretation Comments Segs (test code = Segs) 44.3 45.0-75.0 [facility] HospitalDvsfrfxCAGPKUAWGB0486-24-11 07:28:00 Test Item Value Reference Range Interpretation Comments Lymphocytes (test code = Lymphocytes) 40.7 20.0-40.0 [facility] HospitalLyzqsxlEQMMFLQSOF1081-70-90 07:28:00 Test Item Value Reference Range Interpretation Comments Hct (test code = Hct) 39.9 42.0-54.0 [facility] HospitalIqfrilyPISCCXLSCO9045-14-01 07:28:00 Test Item Value Reference Range Interpretation Comments Hgb (test code = Hgb) 13.2 14.0-18.0 [facility] HospitalJmfoqhrWSUMHJDPCW3221-03-95 07:28:00 Test Item Value Reference Range Interpretation Comments RBC (test code = RBC) 4.17 4.70-6.10 [facility] HospitalMdtakikBXFCIDVBPQ8114-00-76 07:28:00 Test Item Value Reference Range Interpretation Comments WBC (test code = WBC) 6.1 3.7-10.4 [facility] HospitalNgfrcmjODCAGBNWFX2359-25-26 07:28:00 Test Item Value Reference Range Interpretation Comments MCHC (test code = MCHC) 32.9 32.0-36.0 [facility] HospitalCmfziguJUZRHIXZTE6275-43-97 07:28:00 Test Item Value Reference Range Interpretation Comments RDW (test code = RDW) 13.2 11.5-14.5 [facility] HospitalAlvqldyJJHGNXPWCT0778-97-12 07:28:00 Test Item Value Reference Range Interpretation Comments MCH (test code = MCH) 31.6 pg 27.0-31.0 [facility] HospitalCkrmjmsPLLLDUNWFS1100-16-98 07:28:00 Test Item Value Reference Range Interpretation Comments MCV (test code = MCV) 95.9 80.0-94.0 [facility] HospitalJclfwbhOHUAPTQOWZ4337-28-66 07:28:00 Test Item Value Reference Range Interpretation Comments Platelet (test code = Platelet) 170 133-450 [facility] HospitalBfskcdwVWDCNBUQOS9997-99-65 07:28:00 Test Item Value Reference Range Interpretation Comments MPV (test code = MPV) 10.0 7.4-10.4 [facility]2015-08-11 08:08:00 Test Item Value Reference Range Interpretation Comments eGFR (test code = eGFR) 104 [facility] JAHUU4175-95-87 08:08:00 Test Item Value Reference Range Interpretation Comments Calcium Lvl (test code = Calcium Lvl) 8.0 8.5-10.5 [facility]2015-08-11 08:08:00 Test Item Value Reference Range Interpretation Comments CO2 (test code = CO2) 26 24-32 [facility]2015-08-11 08:08:00 Test Item Value Reference Range Interpretation Comments Chloride Lvl (test code = Chloride Lvl) 110 95-109 [facility]2015-08-11 08:08:00 Test Item Value Reference Range Interpretation Comments Potassium Lvl (test code = Potassium 4.1 3.5-5.1 Lvl) [facility]2015-08-11 08:08:00 Test Item Value Reference Range Interpretation Comments Sodium Lvl (test code = Sodium Lvl) 143 135-145 [facility]2015-08-11 08:08:00 Test Item Value Reference Range Interpretation Comments Glucose Lvl (test code = Glucose Lvl) 86 70-99 [facility]2015-08-11 08:08:00 Test Item Value Reference Range Interpretation Comments BUN (test code = BUN) 16 7-22 [facility]2015-08-11 08:08:00 Test Item Value Reference Range Interpretation Comments Creatinine Lvl (test code = Creatinine 0.9 0.5-1.4 Lvl) [facility]2015-08-11 08:08:00 Test Item Value Reference Range Interpretation Comments AGAP (test code = AGAP) 11.1 10.0-20.0 [facility]2015-08-11 08:08:00 Test Item Value Reference Range Interpretation Comments Phosphorus (test code = Phosphorus) 2.9 2.5-4.5 [facility]2015-08-11 08:08:00 Test Item Value Reference Range Interpretation Comments Magnesium Lvl (test code = Magnesium 1.9 1.8-2.4 Lvl) [facility] HospitalAjdodjpNLUBUWYDBP3833-52-48 08:08:00 Test Item Value Reference Range Interpretation Comments Segs (test code = Segs) 50.9 45.0-75.0 [facility] HospitalTxwmhjuEBUXVCVYAR0968-56-86 08:08:00 Test Item Value Reference Range Interpretation Comments Lymphocytes (test code = Lymphocytes) 34.7 20.0-40.0 [facility] HospitalTyhpserTPRKXINWUV4746-51-67 08:08:00 Test Item Value Reference Range Interpretation Comments Eosinophils (test code = 4.8 See_Comment [A utomated message] The Eosinophils) system which ge nerated this result tra nsmitted reference range : <=4.0. The reference r sumeet was not used to int erpret this result as normal/abnormal . [facility] HospitalFljgbgoLAJRMXPYHH4007-25-50 08:08:00 Test Item Value Reference Range Interpretation Comments Segs-Bands # (test code = Segs-Bands #) 3.4 1.5-8.1 [facility] HospitalForamckUTPJUUMYXU4331-42-74 08:08:00 Test Item Value Reference Range Interpretation Comments Monocytes (test code = Monocytes) 8.7 2.0-12.0 [facility] HospitalLfuxxgtINZFUMRGIX8517-46-62 08:08:00 Test Item Value Reference Range Interpretation Comments Basophils (test code = 0.9 See_Comment [Aut omated message] The Basophils) system which ge nerated this result tra nsmitted reference range : <=1.0. The reference r sumeet was not used to int erpret this result as normal/abnormal . [facility] HospitalYkdgczyUAZTAHPBHD8467-45-29 08:08:00 Test Item Value Reference Range Interpretation Comments Lymphocytes # (test code = Lymphocytes 2.3 1.0-5.5 #) [facility] HospitalUaqzichOBPXGMGLDL6629-27-89 08:08:00 Test Item Value Reference Range Interpretation Comments Eosinophils # (test code 0.3 See_Comment [A utomated message] The = Eosinophils #) system whic h generated this result tra nsmitted reference range : <=0.5. The reference r sumeet was not used to int erpret this result as normal/abnormal . [facility] HospitalTphjdvgBGGNBKGQPM7067-97-03 08:08:00 Test Item Value Reference Range Interpretation Comments Monocytes # (test code 0.6 See_Comment [Aut omated message] The = Monocytes #) system which generated this result tra nsmitted reference range : <=0.8. The reference r sumeet was not used to int erpret this result as normal/abnormal . [facility] HospitalIezacmjCZVMRNYXJW4360-34-38 08:08:00 Test Item Value Reference Range Interpretation Comments Basophils # (test code 0.1 See_Comment [Aut omated message] The = Basophils #) system which generated this result tra nsmitted reference range : <=0.2. The reference r sumeet was not used to int erpret this result as normal/abnormal . [facility] HospitalDwepbguGSUURVLZRA2787-58-02 08:08:00 Test Item Value Reference Range Interpretation Comments WBC (test code = WBC) 6.7 3.7-10.4 [facility] HospitalJpezwphEFOZVAGXAJ3246-23-88 08:08:00 Test Item Value Reference Range Interpretation Comments RBC (test code = RBC) 4.01 4.70-6.10 [facility]JzwzfrqNDYUBLRROT9396-82-23 08:08:00 Test Item Value Reference Range Interpretation Comments Hgb (test code = Hgb) 12.7 14.0-18.0 [facility] HospitalTirvnbqUWCYNNJSYG8515-58-69 08:08:00 Test Item Value Reference Range Interpretation Comments Hct (test code = Hct) 38.4 42.0-54.0 [facility] HospitalUdbayqbQULHIWRUBC4219-62-11 08:08:00 Test Item Value Reference Range Interpretation Comments MCV (test code = MCV) 96.0 80.0-94.0 [facility] HospitalAwuloqfYDZCKCHSIN4519-25-06 08:08:00 Test Item Value Reference Range Interpretation Comments MCH (test code = MCH) 31.8 pg 27.0-31.0 [facility] HospitalYlemeqkKSGMAHPFEY9373-06-45 08:08:00 Test Item Value Reference Range Interpretation Comments MCHC (test code = MCHC) 33.2 32.0-36.0 [facility] HospitalBmbukufIDGVEGBVAU6925-71-39 08:08:00 Test Item Value Reference Range Interpretation Comments RDW (test code = RDW) 12.8 11.5-14.5 [facility] HospitalGleuktySWEBNWKJQX2674-35-50 08:08:00 Test Item Value Reference Range Interpretation Comments MPV (test code = MPV) 9.7 7.4-10.4 [facility] HospitalYhglomuWIDAAEDOGZ9667-40-99 08:08:00 Test Item Value Reference Range Interpretation Comments Platelet (test code = Platelet) 157 133-450 [facility] DistrictPARATHYROID KAHHRUE9745-05-81 08:08:00 Test Item Value Reference Range Interpretation Comments Ca Norm WB (test code = Ca Norm WB) 1.08 1.05-1.25 [facility]annPARATHYROID BOTWQHP2103-20-60 08:08:00 Test Item Value Reference Range Interpretation Comments Ca Ion WB (test code = Ca Ion WB) 1.12 1.05-1.25 [facility] CenterEtijenaUNUBPNDQEC4391-13-02 22:07:00 Test Item Value Reference Range Interpretation Comments HIV 1/2 Ab (test code Negative *NA*(8/10/15 = HIV 1/2 Ab) 5:07 PM) [facility] [id number] 15:14:00 Test Item Value Reference Range Interpretation Comments MRSA by PCR (test Negative (12/12/14 10:14 code = MRSA by PCR) AM) [facility] [id number] 15:14:00 Test Item Value Reference Range Interpretation Comments U Methadone Scr (test Negative *NA*(12/12/14 code = U Methadone Scr) 10:14 AM) [facility] [id number] 15:14:00 Test Item Value Reference Range Interpretation Comments U Propoxyph Scr (test Negative *NA*(12/12/14 code = U Propoxyph Scr) 10:14 AM) [facility] [id number] 15:14:00 Test Item Value Reference Range Interpretation Comments UDS Note (test code = See Note (12/12/14 10:14 UDS Note) AM) [facility] YOADUQ6528-38-11 15:14:00 Test Item Value Reference Range Interpretation Comments U Phencyc Scr (test Negative *NA*(12/12/14 code = U Phencyc Scr) 10:14 AM) [facility] QRGMIG2454-07-20 15:14:00 Test Item Value Reference Range Interpretation Comments U Cannab Scr (test Negative *NA*(12/12/14 code = U Cannab Scr) 10:14 AM) [facility] [id number] 15:14:00 Test Item Value Reference Range Interpretation Comments U Opiate Scr (test Positive *ABN*(12/12/14 code = U Opiate Scr) 10:14 AM) [facility] [id number] 15:14:00 Test Item Value Reference Range Interpretation Comments U Cocaine Scr (test Positive *ABN*(12/12/14 code = U Cocaine Scr) 10:14 AM) [facility] [id number] 15:14:00 Test Item Value Reference Range Interpretation Comments U Shi Scr (test code Negative *NA*(12/12/14 = U Shi Scr) 10:14 AM) [facility] [id number] 15:14:00 Test Item Value Reference Range Interpretation Comments U Benzodia Scr (test Positive *ABN*(8/10/15 code = U Benzodia Scr) 10:14 AM) [facility] [id number] 15:14:00 Test Item Value Reference Range Interpretation Comments U Amph Scr (test code Positive *ABN*(12/12/14 = U Amph Scr) 10:14 AM) [facility] [id number] 15:14:00 Test Item Value Reference Range Interpretation Comments UA Urobilinogen (test code = UA <=1.0 mg/dL 0.1-1.0 Urobilinogen) [facility] [id number] 15:14:00 Test Item Value Reference Range Interpretation Comments UA Ketones (test code = UA Ketones) TR [facility] [id number] 15:14:00 Test Item Value Reference Range Interpretation Comments UA Mucus (test code = UA Mucus) Few /LPF [facility] [id number] 15:14:00 Test Item Value Reference Range Interpretation Comments UA RBC (test code = 1 See_Comment [Automa clarita message] The UA RBC) system which ge nerated this result transmit clarita reference range : <=2. The reference range was not used to interpr et this result as brendan l/abnormal. [facility] [id number] 15:14:00 Test Item Value Reference Range Interpretation Comments UA WBC (test code = 17 See_Comment [Automa clarita message] The UA WBC) system which ge nerated this result transmit clarita reference range : <=5. The reference range was not used to interpr et this result as brendan l/abnormal. [facility] [id number] 15:14:00 Test Item Value Reference Range Interpretation Comments UA Sq Epi (test code = UA Sq Occasional /LPF Epi) [facility] [id number] 15:14:00 Test Item Value Reference Range Interpretation Comments UA Glucose (test code = UA Negative mg/dL Glucose) [facility] [id number] 15:14:00 Test Item Value Reference Range Interpretation Comments UA Protein (test code = UA Protein) 20 mg/dL [facility] [id number] 15:14:00 Test Item Value Reference Range Interpretation Comments UA Leuk Est (test code Small *ABN*(8/10/15 = UA Leuk Est) 10:14 AM) [facility] [id number] 15:14:00 Test Item Value Reference Range Interpretation Comments UA Nitrite (test code Negative (12/12/14 10:14 = UA Nitrite) AM) [facility] [id number] 15:14:00 Test Item Value Reference Range Interpretation Comments UA Blood (test code = Negative (12/12/14 10:14 UA Blood) AM) [facility] [id number] 15:14:00 Test Item Value Reference Range Interpretation Comments UA Bili (test code = Negative *NA*(12/12/14 UA Bili) 10:14 AM) [facility] [id number] 15:14:00 Test Item Value Reference Range Interpretation Comments UA Turbidity (test code = Clear (12/12/14 10:14 UA Turbidity) AM) [facility] [id number] 15:14:00 Test Item Value Reference Range Interpretation Comments UA Color (test code = Yellow *NA*(12/12/14 UA Color) 10:14 AM) [facility] [id number] 15:14:00 Test Item Value Reference Range Interpretation Comments UA pH (test code = UA pH) 7.0 5.0-8.0 [facility] [id number] 15:14:00 Test Item Value Reference Range Interpretation Comments UA Spec Grav (test code = UA Spec Grav) 1.023 [facility] [id number] 13:09:00 Test Item Value Reference Range Interpretation Comments Total CK (test code = Total CK) 106 12-191 [facility] [id number] 13:09:00 Test Item Value Reference Range Interpretation Comments CK MB Index (test 1.5 See_Comment [Automate d message] The code = CK MB Index) system w [facility] generated this result transmit clarita reference range : <=2.5. The reference range was not used to interpr et this result as brendan l/abnormal. [facility] [id number] 13:09:00 Test Item Value Reference Range Interpretation Comments CK MB (test code = CK MB) 1.6 0.5-3.6 [facility] [id number] 13:09:00 Test Item Value Reference Range Interpretation Comments Phosphorus (test code = Phosphorus) 2.3 2.5-4.5 [facility]2015-08-10 13:09:00 Test Item Value Reference Range Interpretation Comments Bili Direct (test code 0.1 See_Comment [Aut omated message] The = Bili Direct) system which generated this result tra nsmitted reference range : <=0.3. The reference r sumeet was not used to int erpret this result as brendan l/abnormal. [facility]2015-08-10 13:09:00 Test Item Value Reference Range Interpretation Comments AST (test code = AST) 21 See_Comment [Auto mated message] The system which ge nerated this result transmit clarita reference range : <=37. The reference range was not used to interpr et this result as brendan l/abnormal. [facility]2015-08-10 13:09:00 Test Item Value Reference Range Interpretation Comments ALT (test code = ALT) 27 See_Comment [Auto mated message] The system which ge nerated this result transmit clarita reference range : <=65. The reference range was not used to interpr et this result as brendan l/abnormal. [facility]2015-08-10 13:09:00 Test Item Value Reference Range Interpretation Comments Total Protein (test code = Total 6.0 6.4-8.4 Protein) [facility]2015-08-10 13:09:00 Test Item Value Reference Range Interpretation Comments Globulin (test code = Globulin) 2.9 2.0-4.0 [facility]2015-08-10 13:09:00 Test Item Value Reference Range Interpretation Comments Albumin Lvl (test code = Albumin Lvl) 3.1 3.5-5.0 [facility]2015-08-10 13:09:00 Test Item Value Reference Range Interpretation Comments A/G Ratio (test code = A/G Ratio) 1.1 0.7-1.6 [facility]2015-08-10 13:09:00 Test Item Value Reference Range Interpretation Comments Alk Phos (test code = Alk Phos) 64 39-136 [facility]2015-08-10 13:09:00 Test Item Value Reference Range Interpretation Comments Bili Indirect (test 0.1 See_Comment [Automa clarita message] The code = Bili Indirect) system which generated this result tra nsmitted reference range : <=1.0. The reference r sumeet was not used to int erpret this result as normal/abnormal . [facility]2015-08-10 13:09:00 Test Item Value Reference Range Interpretation Comments Bili Total (test code = Bili Total) 0.2 0.2-1.3 [facility]2015-08-10 13:09:00 Test Item Value Reference Range Interpretation Comments Magnesium Lvl (test code = Magnesium 2.1 1.8-2.4 Lvl) [facility]2015-08-10 13:09:00 Test Item Value Reference Range Interpretation Comments eGFR (test code = eGFR) 104 [facility]2015-08-10 13:09:00 Test Item Value Reference Range Interpretation Comments Chloride Lvl (test code = Chloride Lvl) 109 95-109 [facility]2015-08-10 13:09:00 Test Item Value Reference Range Interpretation Comments Calcium Lvl (test code = Calcium Lvl) 8.1 8.5-10.5 [facility]2015-08-10 13:09:00 Test Item Value Reference Range Interpretation Comments CO2 (test code = CO2) 26 24-32 [facility]2015-08-10 13:09:00 Test Item Value Reference Range Interpretation Comments Sodium Lvl (test code = Sodium Lvl) 141 135-145 [facility]2015-08-10 13:09:00 Test Item Value Reference Range Interpretation Comments Potassium Lvl (test code = Potassium 3.9 3.5-5.1 Lvl) [facility]2015-08-10 13:09:00 Test Item Value Reference Range Interpretation Comments Creatinine Lvl (test code = Creatinine 0.9 0.5-1.4 Lvl) [facility]2015-08-10 13:09:00 Test Item Value Reference Range Interpretation Comments BUN (test code = BUN) 15 7-22 [facility]2015-08-10 13:09:00 Test Item Value Reference Range Interpretation Comments Glucose Lvl (test code = Glucose Lvl) 88 70-99 [facility]2015-08-10 13:09:00 Test Item Value Reference Range Interpretation Comments AGAP (test code = AGAP) 9.9 10.0-20.0 [facility] HospitalSkdfjfzTZWNHPHVOP7230-87-13 13:09:00 Test Item Value Reference Range Interpretation Comments INR (test code = INR) 0.98 0.85-1.17 [facility] HospitalWnczkolFGLVZEMPDM2679-43-13 13:09:00 Test Item Value Reference Range Interpretation Comments PT (test code = PT) 13.0 s 12.0-14.7 [facility] HospitalCppyuekJFNSUCUYOG7665-75-00 13:09:00 Test Item Value Reference Range Interpretation Comments PTT (test code = PTT) 28.4 s 22.9-35.8 [facility] HospitalZvupvdlZVEXXHFMKK0791-00-14 13:09:00 Test Item Value Reference Range Interpretation Comments MCHC (test code = MCHC) 33.1 32.0-36.0 [facility] HospitalOurenkqQAHRMXGMWR2197-05-12 13:09:00 Test Item Value Reference Range Interpretation Comments RDW (test code = RDW) 13.0 11.5-14.5 [facility] HospitalXlthuxtPOKHCEVCDK1105-37-60 13:09:00 Test Item Value Reference Range Interpretation Comments MPV (test code = MPV) 9.0 7.4-10.4 [facility] HospitalLwzmmioLQRISUQXJY2452-89-40 13:09:00 Test Item Value Reference Range Interpretation Comments Platelet (test code = Platelet) 161 133-450 [facility] HospitalAhpanadILJTRTIUYY8171-98-76 13:09:00 Test Item Value Reference Range Interpretation Comments Hgb (test code = Hgb) 12.5 14.0-18.0 [facility] HospitalEnxeijbMNAWSDJFIV9500-13-29 13:09:00 Test Item Value Reference Range Interpretation Comments MCH (test code = MCH) 32.1 pg 27.0-31.0 [facility] HospitalTvknortHWMAGHKMUE6486-85-88 13:09:00 Test Item Value Reference Range Interpretation Comments MCV (test code = MCV) 96.7 80.0-94.0 [facility] HospitalTmyehbaPITQIWEPDE1258-23-93 13:09:00 Test Item Value Reference Range Interpretation Comments Hct (test code = Hct) 37.8 42.0-54.0 [facility] HospitalAaqjefqAKCFBFECRW9985-71-33 13:09:00 Test Item Value Reference Range Interpretation Comments WBC (test code = WBC) 8.9 3.7-10.4 [facility] HospitalWnmmrcoQEZDUXSQGZ3007-33-86 13:09:00 Test Item Value Reference Range Interpretation Comments RBC (test code = RBC) 3.91 4.70-6.10 [facility] HospitalKryswtoRGMPATXMXC0451-09-75 13:09:00 Test Item Value Reference Range Interpretation Comments Basophils (test code = 0.5 See_Comment [Aut omated message] The Basophils) system which ge nerated this result tra nsmitted reference range : <=1.0. The reference r sumeet was not used to int erpret this result as normal/abnormal . [facility] HospitalCzdnqaaZPHFTUWIKZ0236-95-06 13:09:00 Test Item Value Reference Range Interpretation Comments Segs-Bands # (test code = Segs-Bands #) 5.2 1.5-8.1 [facility] HospitalQmrxpciBDXLRJQVTT1438-67-73 13:09:00 Test Item Value Reference Range Interpretation Comments Lymphocytes # (test code = Lymphocytes 2.5 1.0-5.5 #) [facility] HospitalTweduztKITDKSSWZI0511-50-65 13:09:00 Test Item Value Reference Range Interpretation Comments Eosinophils (test code = 3.8 See_Comment [A utomated message] The Eosinophils) system which ge nerated this result tra nsmitted reference range : <=4.0. The reference r sumeet was not used to int erpret this result as normal/abnormal . [facility] HospitalHscolcoHLCQBPZCFN6068-19-87 13:09:00 Test Item Value Reference Range Interpretation Comments Segs (test code = Segs) 58.0 45.0-75.0 [facility] HospitalEjgwduqLUYXPUJFMP8136-98-65 13:09:00 Test Item Value Reference Range Interpretation Comments Eosinophils # (test code 0.3 See_Comment [A utomated message] The = Eosinophils #) system whic h generated this result tra nsmitted reference range : <=0.5. The reference r sumeet was not used to int erpret this result as normal/abnormal . [facility] HospitalDngkufdNFAADRFWSH6128-05-96 13:09:00 Test Item Value Reference Range Interpretation Comments Monocytes # (test code 0.9 See_Comment [Aut omated message] The = Monocytes #) system which generated this result tra nsmitted reference range : <=0.8. The reference r sumeet was not used to int erpret this result as normal/abnormal . [facility]PgkqhgtNEIUJXPKKZ4776-67-35 13:09:00 Test Item Value Reference Range Interpretation Comments Lymphocytes (test code = Lymphocytes) 27.9 20.0-40.0 [facility] HospitalOrkenkqFRZMZMQPNC4178-84-90 13:09:00 Test Item Value Reference Range Interpretation Comments Monocytes (test code = Monocytes) 9.8 2.0-12.0 [facility]2015-08-10 13:09:00 Test Item Value Reference Range Interpretation Comments Ca Norm WB (test code = Ca Norm WB) 1.07 1.05-1.25 [facility]PAR[facility]ROID [id number] 13:09:00 Test Item Value Reference Range Interpretation Comments Ca Ion WB (test code = Ca Ion WB) 1.05 1.05-1.25 [facility] DistrictDuwcrgkKWFNNKHMCS2477-75-47 13:09:00 Test Item Value Reference Range Interpretation Comments Etoh (%) (test code = Etoh (%)) no gt [place] [address]2015-08-10 13:09:00 Test Item Value Reference Range Interpretation Comments Ethanol Lvl (test code = Ethanol Lvl) [facility] gt [facility] [id number] 10:25:00 Test Item Value Reference Range Interpretation Comments A/G Ratio (test code = A/G Ratio) 1.1 0.7-1.6 [facility]2015-08-10 10:25:00 Test Item Value Reference Range Interpretation Comments Globulin (test code = Globulin) 2.8 2.0-4.0 [facility]2015-08-10 10:25:00 Test Item Value Reference Range Interpretation Comments B/C Ratio (test code = B/C Ratio) 19 6-25 [facility]2015-08-10 10:25:00 Test Item Value Reference Range Interpretation Comments Alk Phos (test code = Alk Phos) 73 39-136 [facility]2015-08-10 10:25:00 Test Item Value Reference Range Interpretation Comments AST (test code = AST) 20 See_Comment [Auto mated message] The system which ge nerated this result transmit clarita reference range : <=37. The reference range was not used to interpr et this result as brendan l/abnormal. [facility]2015-08-10 10:25:00 Test Item Value Reference Range Interpretation Comments Bili Total (test code = Bili Total) 0.2 0.2-1.3 [facility]2015-08-10 10:25:00 Test Item Value Reference Range Interpretation Comments ALT (test code = ALT) 27 See_Comment [Auto mated message] The system which ge nerated this result transmit clarita reference range : <=65. The reference range was not used to interpr et this result as brendan l/abnormal. [facility]2015-08-10 10:25:00 Test Item Value Reference Range Interpretation Comments Albumin Lvl (test code = Albumin Lvl) 3.2 3.5-5.0 [facility]2015-08-10 10:25:00 Test Item Value Reference Range Interpretation Comments Total Protein (test code = Total 6.0 6.4-8.4 Protein) [facility] DistrictMbwepqdRKKCJNXRJX4544-08-56 10:25:00 Test Item Value Reference Range Interpretation Comments Valproic Acid Lvl (test code = Valproic no gt 50-100 Acid Lvl) [facility] HospitalSmltnynMFKHUHYVSMZD8528-37-50 14:47:00 Test Item Value Reference Range Interpretation Comments AGAP (test code = AGAP) 10.0 10.0-20.0 [facility] HospitalWhpfqzkVNXDRZOROGUV6610-00-80 14:47:00 Test Item Value Reference Range Interpretation Comments Chloride Lvl (test code = Chloride Lvl) 103 95-109 [facility] HospitalPzzbvtuVGHDSUWPSLDL7440-14-48 14:47:00 Test Item Value Reference Range Interpretation Comments Potassium Lvl (test code = Potassium 4.0 3.5-5.1 Lvl) [facility] HospitalIvevssgXJOABHMERMTX3554-82-92 14:47:00 Test Item Value Reference Range Interpretation Comments Sodium Lvl (test code = Sodium Lvl) 138 135-145 [facility] HospitalNtxofiaDNZRGIRBOSAE4216-39-54 14:47:00 Test Item Value Reference Range Interpretation Comments eGFR (test code = eGFR) 91 [facility] HospitalRvefnzpJZVASPUCJNMC4543-67-94 14:47:00 Test Item Value Reference Range Interpretation Comments Glucose Lvl (test code = Glucose Lvl) 115 70-99 [facility] HospitalMvnxgvyJRELUNPHIARX1819-27-88 14:47:00 Test Item Value Reference Range Interpretation Comments CO2 (test code = CO2) 29 24-32 [facility] HospitalCnbwxarLQSKHUYZESAV1014-70-54 14:47:00 Test Item Value Reference Range Interpretation Comments Calcium Lvl (test code = Calcium Lvl) 8.9 8.5-10.5 [facility] HospitalNdzwnpaNTHMQUHAUOAM3244-30-99 14:47:00 Test Item Value Reference Range Interpretation Comments Creatinine Lvl (test code = Creatinine 1.0 0.5-1.4 Lvl) [facility] HospitalVrbliidLNOHEGBHDWKC6491-24-83 14:47:00 Test Item Value Reference Range Interpretation Comments BUN (test code = BUN) 15 7-22 [facility] HospitalQwitvslMHXZOFRJCD0231-11-28 14:47:00 Test Item Value Reference Range Interpretation Comments Segs (test code = Segs) 74.6 45.0-75.0 [facility] HospitalCxotrwcSRJRFXPNAO4756-41-75 14:47:00 Test Item Value Reference Range Interpretation Comments Lymphocytes # (test code = Lymphocytes 1.9 1.0-5.5 #) [facility] HospitalJgmwgutQPWVJELOZL2835-11-16 14:47:00 Test Item Value Reference Range Interpretation Comments Segs-Bands # (test code = Segs-Bands #) 10.8 1.5-8.1 [facility] HospitalLoylbslDJKGMVYKTM6490-38-24 14:47:00 Test Item Value Reference Range Interpretation Comments Eosinophils (test code = 1.7 See_Comment [A utomated message] The Eosinophils) system which ge nerated this result tra nsmitted reference range : <=4.0. The reference r sumeet was not used to int erpret this result as normal/abnormal . [facility] HospitalJaahtxdRJPTZTGJHD3802-38-09 14:47:00 Test Item Value Reference Range Interpretation Comments Basophils (test code = 1.2 See_Comment [Aut omated message] The Basophils) system which ge nerated this result tra nsmitted reference range : <=1.0. The reference r sumeet was not used to int erpret this result as normal/abnormal . [facility] HospitalVjfgabzNGYBQABYBN1452-12-94 14:47:00 Test Item Value Reference Range Interpretation Comments Monocytes (test code = Monocytes) 9.6 2.0-12.0 [facility] HospitalRjegksrDGEEXCNWFS6496-02-22 14:47:00 Test Item Value Reference Range Interpretation Comments Lymphocytes (test code = Lymphocytes) 12.9 20.0-40.0 [facility] HospitalBlsjvgnXSVYAMYFGW0391-26-72 14:47:00 Test Item Value Reference Range Interpretation Comments Basophils # (test code 0.2 See_Comment [Aut omated message] The = Basophils #) system which generated this result tra nsmitted reference range : <=0.2. The reference r sumeet was not used to int erpret this result as normal/abnormal . [facility] HospitalPvyrrbwTCRWQFZKIF5611-44-40 14:47:00 Test Item Value Reference Range Interpretation Comments Eosinophils # (test code 0.2 See_Comment [A utomated message] The = Eosinophils #) system whic h generated this result tra nsmitted reference range : <=0.5. The reference r sumeet was not used to int erpret this result as normal/abnormal . [facility] HospitalPjhkitgUMNTWIMQXS3233-21-02 14:47:00 Test Item Value Reference Range Interpretation Comments Monocytes # (test code 1.4 See_Comment [Aut omated message] The = Monocytes #) system which generated this result tra nsmitted reference range : <=0.8. The reference r sumeet was not used to int erpret this result as normal/abnormal . [facility] HospitalPdjgafuSFVWYJJZRX6146-68-39 14:47:00 Test Item Value Reference Range Interpretation Comments MCV (test code = MCV) 96.2 80.0-94.0 [facility] HospitalYdwzbphBLPLSUWAYF4606-06-06 14:47:00 Test Item Value Reference Range Interpretation Comments MCH (test code = MCH) 32.8 pg 27.0-31.0 [facility] HospitalGxvpilvLEWNHAJIHF8950-88-08 14:47:00 Test Item Value Reference Range Interpretation Comments Hct (test code = Hct) 43.9 42.0-54.0 [facility] HospitalXrbgpniZIFXSLYHNH5980-65-16 14:47:00 Test Item Value Reference Range Interpretation Comments MCHC (test code = MCHC) 34.1 32.0-36.0 [facility] HospitalIcuecwwTBOTORWOVS1728-16-93 14:47:00 Test Item Value Reference Range Interpretation Comments WBC (test code = WBC) 14.5 3.7-10.4 [facility] HospitalClfsdugEBFRUPCGSC7118-96-91 14:47:00 Test Item Value Reference Range Interpretation Comments RBC (test code = RBC) 4.57 4.70-6.10 [facility] DistrictCposbwxJAJAXYFMHO7899-33-48 14:47:00 Test Item Value Reference Range Interpretation Comments Hgb (test code = Hgb) 15.0 14.0-18.0 [facility] HospitalCuqyuuyYOJWBVVWCD7518-93-50 14:47:00 Test Item Value Reference Range Interpretation Comments MPV (test code = MPV) 9.2 7.4-10.4 [facility] HospitalVmwpvtpNEGFTLRLRO2765-67-50 14:47:00 Test Item Value Reference Range Interpretation Comments RDW (test code = RDW) 13.3 11.5-14.5 [facility]PkcdyyfIDINPPZQXX3522-72-12 14:47:00 Test Item Value Reference Range Interpretation Comments Platelet (test code = Platelet) 207 612-450 [facility]DR[facility] DIINEB3939-89-43 21:34:00 Test Item Value Reference Range Interpretation Comments U Opiate Scr (test Positive *ABN*(10/26/14 code = U Opiate Scr) 4:34 PM) [facility] [id number] 21:34:00 Test Item Value Reference Range Interpretation Comments U Phencyc Scr (test Negative *NA*(10/26/14 code = U Phencyc Scr) 4:34 PM) [facility] BGLSFM5117-33-43 21:34:00 Test Item Value Reference Range Interpretation Comments U Benzodia Scr (test Positive *ABN*(10/26/14 code = U Benzodia Scr) 4:34 PM) [facility] BJFTXS0608-45-90 21:34:00 Test Item Value Reference Range Interpretation Comments U Cannab Scr (test Negative *NA*(10/26/14 code = U Cannab Scr) 4:34 PM) [facility] [id number] 21:34:00 Test Item Value Reference Range Interpretation Comments U Cocaine Scr (test Negative *NA*(10/26/14 code = U Cocaine Scr) 4:34 PM) [facility] VJRBJR9957-56-70 21:34:00 Test Item Value Reference Range Interpretation Comments UDS Note (test code = See Note 5(10/26/14 4:34 UDS Note) PM) [facility] [id number] 21:34:00 Test Item Value Reference Range Interpretation Comments U Shi Scr (test code Negative *NA*(10/26/14 = U Shi Scr) 4:34 PM) [facility] GYMNIQ8129-43-30 21:34:00 Test Item Value Reference Range Interpretation Comments U Amph Scr (test code Positive *ABN*(10/26/14 = U Amph Scr) 4:34 PM) [facility] [id number] 21:34:00 Test Item Value Reference Range Interpretation Comments UA Blood (test code = Negative (10/26/14 4:34 UA Blood) PM) [facility] [id number] 21:34:00 Test Item Value Reference Range Interpretation Comments UA Urobilinogen (test code = UA 0.2 0.1-1.0 Urobilinogen) [facility] [id number] 21:34:00 Test Item Value Reference Range Interpretation Comments UA Bili (test code = Negative *NA*(10/26/14 UA Bili) 4:34 PM) [facility] [id number] 21:34:00 Test Item Value Reference Range Interpretation Comments UA Nitrite (test code Negative (10/26/14 4:34 = UA Nitrite) PM) [facility] [id number] 21:34:00 Test Item Value Reference Range Interpretation Comments UA Leuk Est (test Negative (10/26/14 4:34 code = [facility]A Leuk Est) PM) [facility] [id number] 21:34:00 Test Item Value Reference Range Interpretation Comments UA Color (test code = Yellow *NA*(10/26/14 UA Color) 4:34 PM) [facility] [id number] 21:34:00 Test Item Value Reference Range Interpretation Comments UA Turbidity (test code = Clear (10/26/14 4:34 UA Turbidity) PM) [facility] [id number] 21:34:00 Test Item Value Reference Range Interpretation Comments UA pH (test code = UA pH) 6.0 1 5.0-8.0 [facility] [id number] 21:34:00 Test Item Value Reference Range Interpretation Comments UA Protein (test code = UA Negative mg/dL Protein) [facility] [id number] 21:34:00 Test Item Value Reference Range Interpretation Comments UA Glucose (test code = UA Negative mg/dL Glucose) [facility] AND [id number] 21:34:00 Test Item Value Reference Range Interpretation Comments UA Spec Grav (test code = UA Spec 1.020 1 Grav) [facility] AND [id number] 21:34:00 Test Item Value Reference Range Interpretation Comments UA Ketones (test code = UA Negative mg/dL Ketones) [facility] AND [id number] 21:34:00 Test Item Value Reference Range Interpretation Comments UA WBC (test code = UA WBC) 0-2 /HPF [facility] AND [id number] 21:34:00 Test Item Value Reference Range Interpretation Comments UA RBC (test code = 0-2 /HPF See_Comment [Automa clarita message] The UA RBC) system which ge nerated this result tra nsmitted reference range : <=2. The reference range was not used to interpr et this result as brendan l/abnormal. [facility] AND [id number] 21:34:00 Test Item Value Reference Range Interpretation Comments UA Sq Epi (test code = UA Sq Epi) Few /LPF [facility] [id number] 20:43:00 Test Item Value Reference Range Interpretation Comments Total CK (test code = Total CK) 155 12-191 [facility] [id number] 20:43:00 Test Item Value Reference Range Interpretation Comments CK MB (test code = CK MB) 2.1 0.5-3.6 [facility] [id number] 20:43:00 Test Item Value Reference Range Interpretation Comments Troponin-I (test code no gt See_Comment [Auto mated message] The = Troponin-I) system which g enerated this result transmit clarita reference range : <=0.40. The reference r sumeet was not used to interpr et this result as brendan l/abnormal. [facility] [id number] 20:43:00 Test Item Value Reference Range Interpretation Comments CK MB Index (test 1.4 See_Comment [Automate d message] The code = CK MB Index) system w [facility] generated this result transmit clarita reference range : <=2.5. The reference range was not used to interpr et this result as brendan l/abnormal. [facility]2015-06-24 20:43:00 Test Item Value Reference Range Interpretation Comments eGFR (test code = eGFR) 67 [facility]2015-06-24 20:43:00 Test Item Value Reference Range Interpretation Comments AGAP (test code = AGAP) 9.7 10.0-20.0 [facility]2015-06-24 20:43:00 Test Item Value Reference Range Interpretation Comments B/C Ratio (test code = B/C Ratio) 17 6-25 [facility]2015-06-24 20:43:00 Test Item Value Reference Range Interpretation Comments AST (test code = AST) 17 See_Comment [Auto mated message] The system which ge nerated this result transmit clarita reference range : <=37. The reference range was not used to interpr et this result as brendan l/abnormal. [facility]2015-06-24 20:43:00 Test Item Value Reference Range Interpretation Comments Total Protein (test code = Total 7.3 6.4-8.4 Protein) [facility]2015-06-24 20:43:00 Test Item Value Reference Range Interpretation Comments Globulin (test code = Globulin) 3.8 2.0-4.0 [facility]2015-06-24 20:43:00 Test Item Value Reference Range Interpretation Comments A/G Ratio (test code = A/G Ratio) 0.9 0.7-1.6 [facility]2015-06-24 20:43:00 Test Item Value Reference Range Interpretation Comments CO2 (test code = CO2) 27 24-32 [facility]2015-06-24 20:43:00 Test Item Value Reference Range Interpretation Comments Calcium Lvl (test code = Calcium Lvl) 8.6 8.5-10.5 [facility]2015-06-24 20:43:00 Test Item Value Reference Range Interpretation Comments Bili Total (test code = Bili Total) 0.3 0.2-1.3 [facility]2015-06-24 20:43:00 Test Item Value Reference Range Interpretation Comments Chloride Lvl (test code = Chloride Lvl) 104 95-109 [facility]2015-06-24 20:43:00 Test Item Value Reference Range Interpretation Comments Glucose Lvl (test code = Glucose Lvl) 103 70-99 [facility]2015-06-24 20:43:00 Test Item Value Reference Range Interpretation Comments Alk Phos (test code = Alk Phos) 100 39-136 [facility]2015-06-24 20:43:00 Test Item Value Reference Range Interpretation Comments BUN (test code = BUN) 22 7-22 [facility]2015-06-24 20:43:00 Test Item Value Reference Range Interpretation Comments Creatinine Lvl (test code = Creatinine 1.3 0.5-1.4 Lvl) [facility]2015-06-24 20:43:00 Test Item Value Reference Range Interpretation Comments Sodium Lvl (test code = Sodium Lvl) 137 135-145 [facility]2015-06-24 20:43:00 Test Item Value Reference Range Interpretation Comments Potassium Lvl (test code = Potassium 3.7 3.5-5.1 Lvl) [facility]2015-06-24 20:43:00 Test Item Value Reference Range Interpretation Comments ALT (test code = ALT) 30 See_Comment [Auto mated message] The system which ge nerated this result transmit clarita reference range : <=65. The reference range was not used to interpr et this result as brendan l/abnormal. [facility]2015-06-24 20:43:00 Test Item Value Reference Range Interpretation Comments Albumin Lvl (test code = Albumin Lvl) 3.5 3.5-5.0 [facility] Hos[id number] 20:43:00 Test Item Value Reference Range Interpretation Comments INR (test code = INR) 0.94 0.85-1.17 [facility] HospitalLdfxfdiBRZRFSYYKH0418-60-58 20:43:00 Test Item Value Reference Range Interpretation Comments PT (test code = PT) 12.5 s 12.0-14.7 [facility] HospitalNustevyMVMOAJHTPA0176-33-64 20:43:00 Test Item Value Reference Range Interpretation Comments MPV (test code = MPV) 8.9 7.4-10.4 [facility] HospitalBxquoqhLNMYLUCPEN5809-12-90 20:43:00 Test Item Value Reference Range Interpretation Comments Platelet (test code = Platelet) 217 133-450 [facility] HospitalKxgddvwZAIIRUGQFE8640-81-38 20:43:00 Test Item Value Reference Range Interpretation Comments MCH (test code = MCH) 31.4 pg 27.0-31.0 [facility] HospitalAddoeaxZEAKLTXQWT8718-94-15 20:43:00 Test Item Value Reference Range Interpretation Comments RDW (test code = RDW) 13.6 11.5-14.5 [facility] HospitalSgxquglXMGIRWVRBE3023-89-86 20:43:00 Test Item Value Reference Range Interpretation Comments MCHC (test code = MCHC) 32.7 32.0-36.0 [facility] HospitalKtrawylDIBRNUSRUO8797-34-06 20:43:00 Test Item Value Reference Range Interpretation Comments Hct (test code = Hct) 45.6 42.0-54.0 [facility] HospitalEqxtyoyJFBSQLJLQT7344-66-97 20:43:00 Test Item Value Reference Range Interpretation Comments MCV (test code = MCV) 96.3 80.0-94.0 [facility] HospitalLhxmysePZWPFMZDCW6845-16-31 20:43:00 Test Item Value Reference Range Interpretation Comments RBC (test code = RBC) 4.74 4.70-6.10 [facility] HospitalAnumpeaOPGCTTRPWL4231-94-83 20:43:00 Test Item Value Reference Range Interpretation Comments Hgb (test code = Hgb) 14.9 14.0-18.0 [facility] HospitalZvtkeogWODKOMIRWG1896-81-59 20:43:00 Test Item Value Reference Range Interpretation Comments WBC (test code = WBC) 12.5 3.7-10.4 [facility] HospitalCcuxoflYIEAOHGZNV7260-17-39 20:43:00 Test Item Value Reference Range Interpretation Comments Eosinophils # (test code 0.3 See_Comment [A utomated message] The = Eosinophils #) system whic h generated this result tra nsmitted reference range : <=0.5. The reference r sumeet was not used to int erpret this result as normal/abnormal . [facility] HospitalKlslcgkLVYJQMQSNJ7373-42-13 20:43:00 Test Item Value Reference Range Interpretation Comments Basophils # (test code 0.1 See_Comment [Aut omated message] The = Basophils #) system which generated this result tra nsmitted reference range : <=0.2. The reference r sumeet was not used to int erpret this result as normal/abnormal . [place] 021455-06-24 20:43:00 Test Item Value Reference Range Interpretation Comments Monocytes # (test code 1.3 See_Comment [Aut omated message] The = Monocytes #) system which generated this result tra nsmitted reference range : <=0.8. The reference r sumeet was not used to int erpret this result as normal/abnormal . [facility] HospitalZephmqtGUHZIYNCLW0184-44-30 20:43:00 Test Item Value Reference Range Interpretation Comments Monocytes (test code = Monocytes) 10.1 2.0-12.0 [facility] HospitalQkslyxqBRLOWDXMXJ2989-82-32 20:43:00 Test Item Value Reference Range Interpretation Comments Lymphocytes (test code = Lymphocytes) 22.5 20.0-40.0 [facility] HospitalYpqrqltGQLKJWLDMX1568-70-26 20:43:00 Test Item Value Reference Range Interpretation Comments Segs (test code = Segs) 64.1 45.0-75.0 [facility] HospitalQfbjzyqPNCRAPOATW1790-87-28 20:43:00 Test Item Value Reference Range Interpretation Comments Segs-Bands # (test code = Segs-Bands #) 8.0 1.5-8.1 [facility] HospitalDcgmigjXZRCLCKSIT1353-19-60 20:43:00 Test Item Value Reference Range Interpretation Comments Eosinophils (test code = 2.6 See_Comment [A utomated message] The Eosinophils) system which ge nerated this result tra nsmitted reference range : <=4.0. The reference r sumeet was not used to int erpret this result as normal/abnormal . [facility] HospitalLabwxwxTJKJAQQCCS0466-73-98 20:43:00 Test Item Value Reference Range Interpretation Comments Lymphocytes # (test code = Lymphocytes 2.8 1.0-5.5 #) [facility] HospitalFyfeipmLEJVXUJDIP0679-93-34 20:43:00 Test Item Value Reference Range Interpretation Comments Basophils (test code = 0.7 See_Comment [Aut omated message] The Basophils) system which ge nerated this result tra nsmitted reference range : <=1.0. The reference r sumeet was not used to int erpret this result as normal/abnormal . [facility] CenterBylnpdzBLWGOGSFOR1614-67-87 20:43:00 Test Item Value Reference Range Interpretation Comments Valproic Acid Lvl (test code = Valproic 20 50-100 Acid Lvl) [facility]QeglozrYCWURRNTAQ2016-78-12 20:43:00 Test Item Value Reference Range Interpretation Comments Etoh (%) (test code = Etoh (%)) no gt [facility] FuvvqdzOZNFKMIXXI5556-92-40 20:43:00 Test Item Value Reference Range Interpretation Comments Ethanol Lvl (test code = Ethanol Lvl) no gt [facility] DomobannCARDIAC [id number] 10:50:00 Test Item Value Reference Range Interpretation Comments CK MB Index (test 1.3 See_Comment [Automate d message] The code = CK MB Index) system w [facility] generated this result transmit clarita reference range : <=2.5. The reference range was not used to interpr et this result as brendan l/abnormal. [facility] DomobannCARThe Tap LabAC [id number] 10:50:00 Test Item Value Reference Range Interpretation Comments CK MB (test code = CK MB) 1.3 0.5-3.6 [facility]annGu[facility] Your Songs [id number] 10:50:00 Test Item Value Reference Range Interpretation Comments Troponin-I (test code no gt See_Comment [Auto mated message] The = Troponin-I) system which g enerated this result transmit clarita reference range : <=0.40. The reference r sumeet was not used to interpr et this result as brendan l/abnormal. [facility] DomobannCARThe Tap LabAC [id number] 10:50:00 Test Item Value Reference Range Interpretation Comments Total CK (test code = Total CK) 102 12-191 [facility] CenterSkimo TV [id number] 10:50:00 Test Item Value Reference Range Interpretation Comments Troponin-T (test code no gt See_Comment [Auto mated message] The = Troponin-T) system which g enerated this result transmit clarita reference range : <=0.100. The reference r sumeet was not used to interpr et this result as brendan l/abnormal. [facility] [id number] 02:22:00 Test Item Value Reference Range Interpretation Comments UDS Note (test code = See Note 4(07/19/14 9:22 UDS Note) PM) [facility] DomobannDRUG [id number] 02:22:00 Test Item Value Reference Range Interpretation Comments U Phencyc Scr (test Negative *NA*(07/19/14 code = U Phencyc Scr) 9:22 PM) [facility] [id number] 02:22:00 Test Item Value Reference Range Interpretation Comments U Cannab Scr (test Negative *NA*(07/19/14 code = U Cannab Scr) 9:22 PM) [facility] [id number] 02:22:00 Test Item Value Reference Range Interpretation Comments U Opiate Scr (test Negative *NA*(07/19/14 code = U Opiate Scr) 9:22 PM) [facility] [id number] 02:22:00 Test Item Value Reference Range Interpretation Comments U Amph Scr (test code Positive *ABN*(07/19/14 = U Amph Scr) 9:22 PM) [facility] [id number] 02:22:00 Test Item Value Reference Range Interpretation Comments U Benzodia Scr (test Positive *ABN*(07/19/14 code = U Benzodia Scr) 9:22 PM) [facility] [id number] 02:22:00 Test Item Value Reference Range Interpretation Comments U Shi Scr (test code Negative *NA*(07/19/14 = U Shi Scr) 9:22 PM) [facility] [id number] 02:22:00 Test Item Value Reference Range Interpretation Comments U Cocaine Scr (test Negative *NA*(07/19/14 code = U Cocaine Scr) 9:22 PM) [facility] [id number] 02:22:00 Test Item Value Reference Range Interpretation Comments UA Nitrite (test code Negative (07/19/14 9:22 = UA Nitrite) PM) [facility] [id number] 02:22:00 Test Item Value Reference Range Interpretation Comments UA Leuk Est (test Negative (07/19/14 9:22 code = UA Leuk Est) PM) [facility] [id number] 02:22:00 Test Item Value Reference Range Interpretation Comments UA Urobilinogen (test code = UA 0.2 0.1-1.0 Urobilinogen) [facility] [id number] 02:22:00 Test Item Value Reference Range Interpretation Comments UA Color (test code = Yellow *NA*(07/19/14 UA Color) 9:22 PM) [facility] [id number] 02:22:00 Test Item Value Reference Range Interpretation Comments UA Spec Grav (test code = UA Spec 1.042 1 Grav) [facility] [id number] 02:22:00 Test Item Value Reference Range Interpretation Comments UA Turbidity (test code = Clear (07/19/14 9:22 UA Turbidity) PM) [facility] AND [id number] 02:22:00 Test Item Value Reference Range Interpretation Comments UA pH (test code = UA pH) 6.0 1 5.0-8.0 [facility] AND [id number] 02:22:00 Test Item Value Reference Range Interpretation Comments UA Protein (test code Negative (07/19/14 9:22 = UA Protein) PM) [facility] AND [id number] 02:22:00 Test Item Value Reference Range Interpretation Comments UA Ketones (test code Negative *NA*(07/19/14 = UA Ketones) 9:22 PM) [facility] [id number] 02:22:00 Test Item Value Reference Range Interpretation Comments UA Glucose (test code Negative (07/19/14 9:22 = UA Glucose) PM) [facility] AND [id number] 02:22:00 Test Item Value Reference Range Interpretation Comments UA Bili (test code = Negative *NA*(07/19/14 UA Bili) 9:22 PM) [facility] AND [id number] 02:22:00 Test Item Value Reference Range Interpretation Comments UA Blood (test code = Negative (07/19/14 9:22 UA Blood) PM) [facility] AND [id number] 02:22:00 Test Item Value Reference Range Interpretation Comments UA Sq Epi (test code = UA Sq Epi) Rare /LPF [facility] AND [id number] 02:22:00 Test Item Value Reference Range Interpretation Comments UA RBC (test None Seen See_Comment [Automated mes aisha] code = UA RBC) (07/19/14 9:22 The system w hich PM) generated this result transmitted ref erence range: <=2. The reference range was not used to int erpret this result as normal/abnormal . [facility] AND [id number] 02:22:00 Test Item Value Reference Range Interpretation Comments UA WBC (test code = UA WBC) 0-2 /HPF [facility] [id number] 02:22:00 Test Item Value Reference Range Interpretation Comments UA Bacteria (test code = None Seen (07/19/14 UA Bacteria) 9:22 PM) [facility] [id number] 23:53:00 Test Item Value Reference Range Interpretation Comments Phosphorus (test code = Phosphorus) 3.3 2.5-4.5 [facility] DomobannCHEM [id number] 23:53:00 Test Item Value Reference Range Interpretation Comments Magnesium Lvl (test code = Magnesium 1.7 1.8-2.4 Lvl) [facility] CenterEumdnxfCWSRESLFDI2988-01-20 23:53:00 Test Item Value Reference Range Interpretation Comments Valproic Acid Lvl (test code = Valproic 6 50-100 Acid Lvl) [facility] Jamalon [id number] 23:08:00 Test Item Value Reference Range Interpretation Comments eGFR (test code = eGFR) 41 [facility] Jamalon [id number] 23:08:00 Test Item Value Reference Range Interpretation Comments POC Creatinine (test code = POC 1.3 0.5-1.4 Creatinine) [facility] [employer] Pharm[employer]AC [id number] 22:55:00 Test Item Value Reference Range Interpretation Comments CK MB Index (test 0.9 See_Comment [Automate d message] The code = CK MB Index) system w [facility] generated this result transmit clarita reference range : <=2.5. The reference range was not used to interpr et this result as brendan l/abnormal. [facility] MiroiCARThe Tap LabAC [id number] 22:55:00 Test Item Value Reference Range Interpretation Comments Troponin-I (test code no gt See_Comment [Auto mated message] The = Troponin-I) system which g enerated this result transmit clarita reference range : <=0.40. The reference r sumeet was not used to interpr et this result as brendan l/abnormal. [facility] [employer]AC [id number] 22:55:00 Test Item Value Reference Range Interpretation Comments Total CK (test code = Total CK) 141 12-191 [facility]CARD[facility] [id number] 22:55:00 Test Item Value Reference Range Interpretation Comments CK MB (test code = CK MB) 1.3 0.5-3.6 [facility] CenterHSystemCHEM [id number] 22:55:00 Test Item Value Reference Range Interpretation Comments Lactic Acid WB (test code = Lactic Acid 2.2 0.5-2.2 WB) [facility] [id number] 22:55:00 Test Item Value Reference Range Interpretation Comments A/G Ratio (test code = A/G Ratio) 1.1 0.7-1.6 [facility] CenterMap[facility] [id number] 22:55:00 Test Item Value Reference Range Interpretation Comments AGAP (test code = AGAP) 10.8 10.0-20.0 [facility] [id number] 22:55:00 Test Item Value Reference Range Interpretation Comments Globulin (test code = Globulin) 3.3 2.0-4.0 [facility]Map[facility] [id number] 22:55:00 Test Item Value Reference Range Interpretation Comments B/C Ratio (test code = B/C Ratio) 16 6-25 [facility] [id number] 22:55:00 Test Item Value Reference Range Interpretation Comments eGFR (test code = eGFR) 73 [facility]2015-03-17 22:55:00 Test Item Value Reference Range Interpretation Comments Total Protein (test code = Total 6.8 6.4-8.4 Protein) [facility] [id number] 22:55:00 Test Item Value Reference Range Interpretation Comments ALT (test code = ALT) 38 See_Comment [Auto mated message] The system which ge nerated this result transmit clarita reference range : <=65. The reference range was not used to interpr et this result as brendan l/abnormal. [facility]Map[facility] [id number] 22:55:00 Test Item Value Reference Range Interpretation Comments Albumin Lvl (test code = Albumin Lvl) 3.5 3.5-5.0 [facility] [id number] 22:55:00 Test Item Value Reference Range Interpretation Comments AST (test code = AST) 27 See_Comment [Auto mated message] The system which ge nerated this result transmit clarita reference range : <=37. The reference range was not used to interpr et this result as brendan l/abnormal. [facility]2015-03-17 22:55:00 Test Item Value Reference Range Interpretation Comments Bili Total (test code = Bili Total) 0.3 0.2-1.3 [place] [id number] 22:55:00 Test Item Value Reference Range Interpretation Comments Alk Phos (test code = Alk Phos) 83 39-136 [facility]2015-03-17 22:55:00 Test Item Value Reference Range Interpretation Comments Chloride Lvl (test code = Chloride Lvl) 107 95-109 [facility]2015-03-17 22:55:00 Test Item Value Reference Range Interpretation Comments CO2 (test code = CO2) 25 24-32 [place] [id number] 22:55:00 Test Item Value Reference Range Interpretation Comments Calcium Lvl (test code = Calcium Lvl) 8.3 8.5-10.5 [facility]2015-03-17 22:55:00 Test Item Value Reference Range Interpretation Comments Creatinine Lvl (test code = Creatinine 1.2 0.5-1.4 Lvl) [facility]2015-03-17 22:55:00 Test Item Value Reference Range Interpretation Comments BUN (test code = BUN) 19 7-22 [facility]2015-03-17 22:55:00 Test Item Value Reference Range Interpretation Comments Glucose Lvl (test code = Glucose Lvl) 82 70-99 [facility]2015-03-17 22:55:00 Test Item Value Reference Range Interpretation Comments Sodium Lvl (test code = Sodium Lvl) 139 135-145 [facility]2015-03-17 22:55:00 Test Item Value Reference Range Interpretation Comments Potassium Lvl (test code = Potassium 3.8 3.5-5.1 Lvl) [facility] H[id number] 22:55:00 Test Item Value Reference Range Interpretation Comments Segs-Bands # (test code = Segs-Bands #) 5.0 1.5-8.1 [facility] HospitalQwbwgoiVFTQLSUPJO3094-65-24 22:55:00 Test Item Value Reference Range Interpretation Comments Basophils (test code = 0.0 See_Comment [Aut omated message] The Basophils) system which ge nerated this result tra nsmitted reference range : <=1.0. The reference r sumeet was not used to int erpret this result as normal/abnormal . [facility] HospitalCswrirgTSWMJZDNCL2045-30-70 22:55:00 Test Item Value Reference Range Interpretation Comments Lymphocytes # (test code = Lymphocytes 2.7 1.0-5.5 #) [facility] H[id number] 22:55:00 Test Item Value Reference Range Interpretation Comments Monocytes (test code = Monocytes) 11.2 2.0-12.0 [place] 021455-03-17 22:55:00 Test Item Value Reference Range Interpretation Comments Lymphocytes (test code = Lymphocytes) 29.5 20.0-40.0 [facility] HospitalYwnqsykQTXDQQOXDF2312-74-58 22:55:00 Test Item Value Reference Range Interpretation Comments Eosinophils (test code = 3.5 See_Comment [A utomated message] The Eosinophils) system which ge nerated this result tra nsmitted reference range : <=4.0. The reference r sumeet was not used to int erpret this result as normal/abnormal . [facility] HospitalXovtedvQTRHQWCMFU4510-87-87 22:55:00 Test Item Value Reference Range Interpretation Comments Segs (test code = Segs) 55.8 45.0-75.0 [facility] HospitalHfnhntpFNJXAQSHHR8372-86-98 22:55:00 Test Item Value Reference Range Interpretation Comments Basophils # (test code 0.0 See_Comment [Aut omated message] The = Basophils #) system which generated this result tra nsmitted reference range : <=0.2. The reference r sumeet was not used to int erpret this result as normal/abnormal . [facility] HospitalHjjaemgZBVGIZKICJ7049-36-17 22:55:00 Test Item Value Reference Range Interpretation Comments Eosinophils # (test code 0.3 See_Comment [A utomated message] The = Eosinophils #) system wh h generated this result tra nsmitted reference range : <=0.5. The reference r sumeet was not used to int erpret this result as normal/abnormal . [facility] HospitalZmuiundEXPSUUKNZF3341-90-91 22:55:00 Test Item Value Reference Range Interpretation Comments Monocytes # (test code 1.0 See_Comment [Aut omated message] The = Monocytes #) system which generated this result tra nsmitted reference range : <=0.8. The reference r sumeet was not used to int erpret this result as normal/abnormal . [facility] HospitalZvpkhiiWICKLGXOIC3438-22-77 22:55:00 Test Item Value Reference Range Interpretation Comments PT (test code = PT) 12.5 s 12.0-14.7 [facility] HospitalUzvelgnFPSSGFBILI9448-15-07 22:55:00 Test Item Value Reference Range Interpretation Comments INR (test code = INR) 0.94 0.85-1.17 [place] 021455-03-17 22:55:00 Test Item Value Reference Range Interpretation Comments PTT (test code = PTT) 26.6 s 22.9-35.8 [facility] HospitalIhiomrcJVMRJQCVMU5181-48-70 22:55:00 Test Item Value Reference Range Interpretation Comments RDW (test code = RDW) 12.7 11.5-14.5 [facility] HospitalZeorzmgRXWBQXWNYO7367-97-79 22:55:00 Test Item Value Reference Range Interpretation Comments Platelet (test code = Platelet) 172 133-450 [facility] HospitalYdqmektIIKJSDGSLI1398-48-74 22:55:00 Test Item Value Reference Range Interpretation Comments MCHC (test code = MCHC) 33.9 32.0-36.0 [facility] HospitalSfqsjeiEBXHCHXHWF9869-27-42 22:55:00 Test Item Value Reference Range Interpretation Comments MCH (test code = MCH) 32.3 pg 27.0-31.0 [place] 021455-03-17 22:55:00 Test Item Value Reference Range Interpretation Comments MCV (test code = MCV) 95.1 80.0-94.0 [place] 99102-03-17 22:55:00 Test Item Value Reference Range Interpretation Comments Hct (test code = Hct) 42.4 42.0-54.0 [place] 99102-03-17 22:55:00 Test Item Value Reference Range Interpretation Comments MPV (test code = MPV) 9.7 7.4-10.4 [place] 021455-03-17 22:55:00 Test Item Value Reference Range Interpretation Comments WBC (test code = WBC) 9.0 3.7-10.4 [facility] HospitalEssiemoIXBLUVANNP6193-55-33 22:55:00 Test Item Value Reference Range Interpretation Comments RBC (test code = RBC) 4.46 4.70-6.10 [facility] HospitalMumqcoeJBUQLJGIAO6713-84-36 22:55:00 Test Item Value Reference Range Interpretation Comments Hgb (test code = Hgb) 14.4 14.0-18.0 [facility] CenterOvqpivaXUILISCWT9477-28-88 10:19:00 Test Item Value Reference Range Interpretation Comments AGAP (test code = AGAP) 13.8 10.0-20.0 N [facility] CenterZzsrvlpZCNGALAES5535-72-73 10:19:00 Test Item Value Reference Range Interpretation Comments Globulin (test code = Globulin) 3.5 2.0-4.0 N [facility] CenterQoxzjjgAYGHRMPLH5671-15-03 10:19:00 Test Item Value Reference Range Interpretation Comments B/C Ratio (test code = B/C Ratio) 15 6-25 N [facility] CenterCihkwqjTSVCJCKVC4505-69-52 10:19:00 Test Item Value Reference Range Interpretation Comments A/G Ratio (test code = A/G Ratio) 1.1 0.7-1.6 N [facility] CenterNedbpmvCJWLIYXOI7132-02-11 10:19:00 Test Item Value Reference Range Interpretation Comments BUN (test code = BUN) 12 7-22 N [facility] CenterWzaobhiQRMBTJQPB6515-99-72 10:19:00 Test Item Value Reference Range Interpretation Comments Creatinine Lvl (test code = Creatinine 0.8 0.5-1.4 N Lvl) [facility] CenterRvwanccVZXKMBHEO8462-45-25 10:19:00 Test Item Value Reference Range Interpretation Comments Glucose Lvl (test code = Glucose Lvl) 81 [facility] CenterKofcarqXLPDZXKKW6390-98-81 10:19:00 Test Item Value Reference Range Interpretation Comments Total Protein (test code = Total 7.4 6.4-8.4 N Protein) [facility] CenterGrgxbmkRELITKJEJ7704-75-33 10:19:00 Test Item Value Reference Range Interpretation Comments Bili Total (test code = Bili Total) 0.3 0.2-1.3 N [facility] CenterHhrabipQIJTSEPUE8036-38-41 10:19:00 Test Item Value Reference Range Interpretation Comments Calcium Lvl (test code = Calcium Lvl) 8.8 8.5-10.5 N [facility] CenterHpnclnxWCWDJOCAZ8900-79-75 10:19:00 Test Item Value Reference Range Interpretation Comments AST (test code = AST) 22 See_Comment N [Auto mated message] The system which ge nerated this result transmit clarita reference range : <=37. The reference range was not used to interpr et this result as brendan l/abnormal. [facility] CenterPozskluMMPJXZBHC9063-31-12 10:19:00 Test Item Value Reference Range Interpretation Comments Sodium Lvl (test code = Sodium Lvl) 142 135-145 N [facility] CenterYmyywmaTRWTWJFUH7455-82-30 10:19:00 Test Item Value Reference Range Interpretation Comments Potassium Lvl (test code = Potassium 3.8 3.5-5.1 N Lvl) [facility] CenterZtiupbrYXSESSYNE2261-04-46 10:19:00 Test Item Value Reference Range Interpretation Comments CO2 (test code = CO2) 24 24-32 N [facility] CenterPekczpjYPVOPGLYC3243-66-27 10:19:00 Test Item Value Reference Range Interpretation Comments Chloride Lvl (test code = Chloride Lvl) 108 95-109 N [facility] CenterNbmdxvmTTHCWMLFP8563-21-17 10:19:00 Test Item Value Reference Range Interpretation Comments Albumin Lvl (test code = Albumin Lvl) 3.9 3.5-5.0 N [facility] CenterUehxqfqOFFUKZJYI1819-02-60 10:19:00 Test Item Value Reference Range Interpretation Comments Alk Phos (test code = Alk Phos) 79 39-136 N [facility] CenterOuknsyoNLEABSGAX7561-40-66 10:19:00 Test Item Value Reference Range Interpretation Comments ALT (test code = ALT) 41 See_Comment N [Auto mated message] The system which ge nerated this result transmit clarita reference range : <=65. The reference range was not used to interpr et this result as brendan l/abnormal. [facility] CenterGrdalgqBMCEXRAEH5168-01-80 10:19:00 Test Item Value Reference Range Interpretation Comments Magnesium Lvl (test code = Magnesium 1.9 1.8-2.4 N Lvl) [facility] CenterDjshhvvVYRUCIRSV5676-58-73 10:19:00 Test Item Value Reference Range Interpretation Comments Phosphorus (test code = Phosphorus) 3.6 2.5-4.5 N [facility]KjuoihaXHKXZJGUFS3005-37-64 10:19:00 Test Item Value Reference Range Interpretation Comments Hgb (test code = Hgb) 15.1 14.0-18.0 N [facility] HospitalBocvceoJXKHQTHNCE1510-18-04 10:19:00 Test Item Value Reference Range Interpretation Comments RBC (test code = RBC) 4.49 4.70-6.10 L [facility] HospitalXtzzcgdTRZDZYFPLG7979-80-05 10:19:00 Test Item Value Reference Range Interpretation Comments WBC (test code = WBC) 10.7 3.7-10.4 H [facility] HospitalRbegqlhBNOLGMYNWC6702-66-97 10:19:00 Test Item Value Reference Range Interpretation Comments MCH (test code = MCH) 33.7 pg 27.0-31.0 H [facility] HospitalYhtqbihRNAPAYPPPQ8234-58-55 10:19:00 Test Item Value Reference Range Interpretation Comments MCV (test code = MCV) 97.3 80.0-94.0 H [facility] HospitalKdvykroBDGXOHZLGM1167-74-26 10:19:00 Test Item Value Reference Range Interpretation Comments RDW (test code = RDW) 13.5 11.5-14.5 N [facility] HospitalPacvezrPNYAMJHFHX0338-26-90 10:19:00 Test Item Value Reference Range Interpretation Comments Hct (test code = Hct) 43.8 42.0-54.0 N [facility] HospitalUiuhwikMAJJWMAPOK3577-65-63 10:19:00 Test Item Value Reference Range Interpretation Comments MCHC (test code = MCHC) 34.6 32.0-36.0 N [facility] HospitalMidccpsSJYCGLXJRL7096-51-29 10:19:00 Test Item Value Reference Range Interpretation Comments MPV (test code = MPV) 9.1 7.4-10.4 N [facility] HospitalViqqfzbIXRHJJSAPM7419-11-96 10:19:00 Test Item Value Reference Range Interpretation Comments Platelet (test code = Platelet) 226 133-450 N [facility] HospitalNkwdnhdBEVJYTWWRA3894-26-75 10:19:00 Test Item Value Reference Range Interpretation Comments Lymphocytes # (test code = Lymphocytes 2.6 1.0-5.5 N #) [facility] HospitalDpzriidVDLCLGPUDG4887-22-37 10:19:00 Test Item Value Reference Range Interpretation Comments Eosinophils # (test code 0.3 See_Comment N [A utomated message] The = Eosinophils #) system whic h generated this result tra nsmitted reference range : <=0.5. The reference r sumeet was not used to int erpret this result as normal/abnormal . [facility] HospitalIhvykofUOCGUXMXKH2254-08-77 10:19:00 Test Item Value Reference Range Interpretation Comments Segs-Bands # (test code = Segs-Bands #) 6.7 1.5-8.1 N [facility] HospitalAnxvdhwBGKTQIUMZN6208-54-04 10:19:00 Test Item Value Reference Range Interpretation Comments Monocytes # (test code 1.1 See_Comment H [Aut omated message] The = Monocytes #) system which generated this result tra nsmitted reference range : <=0.8. The reference r sumeet was not used to int erpret this result as normal/abnormal . [facility] HospitalIxifpngJDDQGWVDQB9886-50-35 10:19:00 Test Item Value Reference Range Interpretation Comments Basophils # (test code 0.0 See_Comment N [Aut omated message] The = Basophils #) system which generated this result tra nsmitted reference range : <=0.2. The reference r sumeet was not used to int erpret this result as normal/abnormal . [facility] HospitalUcrfhevVRLNALBAZK3584-43-02 10:19:00 Test Item Value Reference Range Interpretation Comments Lymphocytes (test code = Lymphocytes) 24.0 20.0-40.0 N [facility] HospitalQzmilhwLJBZSSCGTA3421-63-60 10:19:00 Test Item Value Reference Range Interpretation Comments Segs (test code = Segs) 62.5 45.0-75.0 N [facility] HospitalFmzmqjkOIXPFKTVED6496-21-30 10:19:00 Test Item Value Reference Range Interpretation Comments Monocytes (test code = Monocytes) 10.5 2.0-12.0 N [facility] HospitalDpqcvxcZSIBKCSJNF0423-47-14 10:19:00 Test Item Value Reference Range Interpretation Comments Basophils (test code = 0.4 See_Comment N [Aut omated message] The Basophils) system which ge nerated this result tra nsmitted reference range : <=1.0. The reference r sumeet was not used to int erpret this result as normal/abnormal . [facility] HospitalGdjdayeLPQUYHVZJJ7988-04-96 10:19:00 Test Item Value Reference Range Interpretation Comments Eosinophils (test code = 2.6 See_Comment N [A utomated message] The Eosinophils) system which ge nerated this result tra nsmitted reference range : <=4.0. The reference r sumeet was not used to int erpret this result as normal/abnormal . [facility] CenterBjqcbydQKOYZVYPI4088-89-54 10:11:00 Test Item Value Reference Range Interpretation Comments Phosphorus (test code = Phosphorus) 3.4 2.5-4.5 N [facility] CenterTxsphfcOVMKVCMJB0923-17-60 10:11:00 Test Item Value Reference Range Interpretation Comments Magnesium Lvl (test code = Magnesium 1.9 1.8-2.4 N Lvl) [facility] CenterFihxiyoLWOBMHRVW6661-68-65 10:11:00 Test Item Value Reference Range Interpretation Comments A/G Ratio (test code = A/G Ratio) 0.9 0.7-1.6 N [facility] CenterDwnmlqlSJXQYCLOS8710-41-34 10:11:00 Test Item Value Reference Range Interpretation Comments B/C Ratio (test code = B/C Ratio) 60 6-25 H [facility] CenterWwinkbuZYGLSMUVJ6515-80-29 10:11:00 Test Item Value Reference Range Interpretation Comments Globulin (test code = Globulin) 3.9 2.0-4.0 N [facility] CenterFlfjzxaXUHCLUFFV5102-06-86 10:11:00 Test Item Value Reference Range Interpretation Comments AGAP (test code = AGAP) 16.3 10.0-20.0 N [facility] CenterZqdhwavQMLEUXNJJ2986-88-71 10:11:00 Test Item Value Reference Range Interpretation Comments Glucose Lvl (test code = Glucose Lvl) 102 [facility] CenterYiiokotTPELCYDEV1124-86-19 10:11:00 Test Item Value Reference Range Interpretation Comments Creatinine Lvl (test code = Creatinine 0.2 0.5-1.4 L Lvl) [facility] CenterPyvobajRHBWZFRRK1801-90-90 10:11:00 Test Item Value Reference Range Interpretation Comments BUN (test code = BUN) 12 7-22 N [facility] CenterZbolveyFFRZKJUMC7885-76-76 10:11:00 Test Item Value Reference Range Interpretation Comments Albumin Lvl (test code = Albumin Lvl) 3.5 3.5-5.0 N [facility] CenterXtiveowDIJURLWBY8055-95-82 10:11:00 Test Item Value Reference Range Interpretation Comments Alk Phos (test code = Alk Phos) 84 39-136 N [facility] CenterYzweygiFFNLWGBOO8310-39-54 10:11:00 Test Item Value Reference Range Interpretation Comments ALT (test code = ALT) 39 See_Comment N [Auto mated message] The system which ge nerated this result transmit clarita reference range : <=65. The reference range was not used to interpr et this result as brendan l/abnormal. [facility] CenterNwfpppbBIWMUADUB1190-04-81 10:11:00 Test Item Value Reference Range Interpretation Comments Total Protein (test code = Total 7.4 6.4-8.4 N Protein) [facility] CenterSgshlduOVESNZUNS6348-97-53 10:11:00 Test Item Value Reference Range Interpretation Comments AST (test code = AST) 56 See_Comment H [Auto mated message] The system which ge nerated this result transmit clarita reference range : <=37. The reference range was not used to interpr et this result as brendan l/abnormal. [facility] CenterDotcopzTNSWCENXZ8476-19-16 10:11:00 Test Item Value Reference Range Interpretation Comments Bili Total (test code = Bili Total) 0.6 0.2-1.3 N [facility] CenterTxymmhfWUISOBSYO4751-97-30 10:11:00 Test Item Value Reference Range Interpretation Comments CO2 (test code = CO2) 23 24-32 L [facility] CenterPxwwhicSZNYGGUKR5041-16-27 10:11:00 Test Item Value Reference Range Interpretation Comments Calcium Lvl (test code = Calcium Lvl) 8.8 8.5-10.5 N [facility] CenterLwiyzysGXAIUQKRO6683-94-63 10:11:00 Test Item Value Reference Range Interpretation Comments Sodium Lvl (test code = Sodium Lvl) 140 135-145 N [facility] CenterKlacimdEXPCAZOGD3266-05-67 10:11:00 Test Item Value Reference Range Interpretation Comments Potassium Lvl (test code = Potassium 5.3 3.5-5.1 H Lvl) [facility] CenterQyhbldpHGCEMMDQA1222-75-92 10:11:00 Test Item Value Reference Range Interpretation Comments Chloride Lvl (test code = Chloride Lvl) 106 95-109 N [facility] CenterLtabkjbPUOSLGKHSA6108-68-99 10:11:00 Test Item Value Reference Range Interpretation Comments Basophils # (test code 0.1 See_Comment N [Aut omated message] The = Basophils #) system which generated this result tra nsmitted reference range : <=0.2. The reference r sumeet was not used to int erpret this result as normal/abnormal . [facility] CenterGyajzigEFWZLOIMXR0558-06-91 10:11:00 Test Item Value Reference Range Interpretation Comments Lymphocytes (test code = Lymphocytes) 23.5 20.0-40.0 N [facility] HospitalJurzqlgFOWGHUKVCG6723-53-51 10:11:00 Test Item Value Reference Range Interpretation Comments Segs (test code = Segs) 63.3 45.0-75.0 N [facility] HospitalVlozkshHRMBLAWWQH7887-60-83 10:11:00 Test Item Value Reference Range Interpretation Comments Monocytes (test code = Monocytes) 9.8 2.0-12.0 N [facility] HospitalMxpbrauAXAUMWCSCI7669-82-97 10:11:00 Test Item Value Reference Range Interpretation Comments Eosinophils # (test code 0.3 See_Comment N [A utomated message] The = Eosinophils #) system whic h generated this result tra nsmitted reference range : <=0.5. The reference r sumeet was not used to int erpret this result as normal/abnormal . [facility] HospitalClmgycjEBBMJGHIWL0491-58-18 10:11:00 Test Item Value Reference Range Interpretation Comments Monocytes # (test code 1.0 See_Comment H [Aut omated message] The = Monocytes #) system which generated this result tra nsmitted reference range : <=0.8. The reference r sumeet was not used to int erpret this result as normal/abnormal . [facility] HospitalFvqqtsqGQDFLHZPDG5403-52-26 10:11:00 Test Item Value Reference Range Interpretation Comments Lymphocytes # (test code = Lymphocytes 2.3 1.0-5.5 N #) [facility] HospitalUaadkmfHVZAPUSYIO3951-30-31 10:11:00 Test Item Value Reference Range Interpretation Comments Segs-Bands # (test code = Segs-Bands #) 6.1 1.5-8.1 N [facility] HospitalOlhzbisYRAMHNPOAA2214-45-69 10:11:00 Test Item Value Reference Range Interpretation Comments Basophils (test code = 0.7 See_Comment N [Aut omated message] The Basophils) system which ge nerated this result tra nsmitted reference range : <=1.0. The reference r sumeet was not used to int erpret this result as normal/abnormal . [facility] HospitalLbmjbhbPOMLAADHOM8018-25-07 10:11:00 Test Item Value Reference Range Interpretation Comments Eosinophils (test code = 2.7 See_Comment N [A utomated message] The Eosinophils) system which ge nerated this result tra nsmitted reference range : <=4.0. The reference r sumeet was not used to int erpret this result as normal/abnormal . [facility] HospitalJfycdevMYCSOBOEGG9290-50-44 10:11:00 Test Item Value Reference Range Interpretation Comments MCH (test code = MCH) 34.5 pg 27.0-31.0 H [facility] HospitalSdgjdmvANSFSYIOXZ6234-35-77 10:11:00 Test Item Value Reference Range Interpretation Comments MCHC (test code = MCHC) 35.3 32.0-36.0 N [facility] HospitalEehcwptWUGUZBKVVG3396-61-56 10:11:00 Test Item Value Reference Range Interpretation Comments MPV (test code = MPV) 9.0 7.4-10.4 N [facility] HospitalVxcgoqyWOXYLYEPVD5088-58-10 10:11:00 Test Item Value Reference Range Interpretation Comments Platelet (test code = Platelet) 237 133-450 N [facility] HospitalNoazbsiJMZYSNSTAT4163-10-88 10:11:00 Test Item Value Reference Range Interpretation Comments RDW (test code = RDW) 13.4 11.5-14.5 N [facility] HospitalOzkupzlTMFVFIVOGP2283-95-63 10:11:00 Test Item Value Reference Range Interpretation Comments Hct (test code = Hct) 40.9 42.0-54.0 L [facility] HospitalNobxkftGNGLIEPZMM0840-81-70 10:11:00 Test Item Value Reference Range Interpretation Comments MCV (test code = MCV) 97.8 80.0-94.0 H [facility] HospitalEzxmxteHEXMPDOPOY3727-98-88 10:11:00 Test Item Value Reference Range Interpretation Comments RBC (test code = RBC) 4.19 4.70-6.10 L [facility] HospitalBofucxhOKEAVWJAZW7834-81-55 10:11:00 Test Item Value Reference Range Interpretation Comments Hgb (test code = Hgb) 14.4 14.0-18.0 N [facility] HospitalOmyzlsmPLTKMLBLLK1922-26-85 10:11:00 Test Item Value Reference Range Interpretation Comments WBC (test code = WBC) 9.7 3.7-10.4 N [facility]OteppelJAVIBYCOHO2874-21-92 10:11:00 Test Item Value Reference Range Interpretation Comments HIV 1/2 Ab (test code Negative *NA*(07/11/2011 = HIV 1/2 Ab) 04:11:00) [facility] CenterRiarpxeWYTMOQJUZ4495-18-32 13:02:00 Test Item Value Reference Range Interpretation Comments UDS Note (test code = See Note 7(07/10/2011 N UDS Note) 07:02:00) [facility] CenterFyrzoovRXIMIMSEX9339-60-37 13:02:00 Test Item Value Reference Range Interpretation Comments U Methadone Scr (test Negative code = U Methadone Scr) *NA*(07/10/2011 07:02:00) [facility] CenterJsxuayiLNGGWYINJ4985-57-81 13:02:00 Test Item Value Reference Range Interpretation Comments U Propoxyph Scr (test Negative code = U Propoxyph Scr) *NA*(07/10/2011 07:02:00) [facility] CenterWfqqqxvNFFJYMSRZ6386-62-81 13:02:00 Test Item Value Reference Range Interpretation Comments U Phencyc Scr (test Negative code = U Phencyc Scr) *NA*(07/10/2011 07:02:00) [facility] CenterLbrfqrsMGRKEUFAS5219-63-78 13:02:00 Test Item Value Reference Range Interpretation Comments U Opiate Scr (test Positive A code = U Opiate Scr) *ABN*(07/10/2011 07:02:00) [facility] CenterInkfzloHVBPFZBJB1601-82-69 13:02:00 Test Item Value Reference Range Interpretation Comments U Cannab Scr (test Negative code = U Cannab Scr) *NA*(07/10/2011 07:02:00) [facility] CenterFteobtiPNSMNBLBL3425-74-46 13:02:00 Test Item Value Reference Range Interpretation Comments U Cocaine Scr (test Negative code = U Cocaine Scr) *NA*(07/10/2011 07:02:00) [facility] CenterAtwwvwuDCZTLHSYN2245-66-10 13:02:00 Test Item Value Reference Range Interpretation Comments U Benzodia Scr (test Positive A code = U Benzodia Scr) *ABN*(07/10/2011 07:02:00) [facility] CenterGxiomvuXQLQDKYWZ1053-05-92 13:02:00 Test Item Value Reference Range Interpretation Comments U Shi Scr (test code Negative *NA*(07/10/2011 = U Shi Scr) 07:02:00) [facility] CenterJclxlojDAQZAZMQY2250-12-78 13:02:00 Test Item Value Reference Range Interpretation Comments U Amph Scr (test code Negative *NA*(07/10/2011 = U Amph Scr) 07:02:00) [facility] EZMEQLGH3810-82-40 13:02:00 Test Item Value Reference Range Interpretation Comments U Histo Ag (test code None Detected N = U Histo Ag) 2(07/10/2011 07:02:00) [facility] SSLOGOQE7854-58-22 13:02:00 Test Item Value Reference Range Interpretation Comments U Hist Ag Intrp (test code = U Hist negative Ag Intrp) [facility] HospitalVlecboxFGFJULVAXV6402-60-72 13:02:00 Test Item Value Reference Range Interpretation Comments UA Urobilinogen (test code *NA*(07/10/2011 0.1-1.0 = UA Urobilinogen) 07:02:00) [facility] CenterKffopiwDFHHURVGNG5685-70-82 13:02:00 Test Item Value Reference Range Interpretation Comments Micro? (test code = Not Indicated Micro?) *NA*(07/10/2011 07:02:00) [facility] HospitalHyynxubDCSDMPNEOM7751-92-72 13:02:00 Test Item Value Reference Range Interpretation Comments UA Spec Grav (test code = UA Spec Grav) 1.009 N [facility] HospitalZzvlumgWIOUZIMJGS9361-72-23 13:02:00 Test Item Value Reference Range Interpretation Comments UA Protein (test code Negative mg/dL N = UA Protein) (07/10/2011 07:02:00) [facility] [facility] CenterOkvgdnrKXWMOBYOOW9617-24-17 13:02:00 Test Item Value Reference Range Interpretation Comments UA pH (test code = UA pH) 6.5 5.0-8.0 N [facility]UuojklzPHAOYLGJUM5704-93-94 13:02:00 Test Item Value Reference Range Interpretation Comments UA Glucose (test code Negative mg/dL = UA Glucose) *NA*(07/10/2011 07:02:00) [facility] CenterHxqianuIIKENTFXOO9066-10-90 13:02:00 Test Item Value Reference Range Interpretation Comments UA Blood (test code = Negative (07/10/2011 N UA Blood) 07:02:00) [facility] HospitalVlzmohiYLACKPMTTA3199-82-95 13:02:00 Test Item Value Reference Range Interpretation Comments UA Leuk Est (test Negative (07/10/2011 N code = UA Leuk Est) 07:02:00) [facility] CenterYrxzexlOXRILCXHCV2561-38-07 13:02:00 Test Item Value Reference Range Interpretation Comments UA Nitrite (test code Negative (07/10/2011 N = UA Nitrite) 07:02:00) [facility] CenterPqblxnhXMSOHAPMVH3549-77-68 13:02:00 Test Item Value Reference Range Interpretation Comments UA Ketones (test code Negative mg/dL = UA Ketones) *NA*(07/10/2011 07:02:00) [facility] CenterXcwbnerZHRTOGLARJ9966-81-59 13:02:00 Test Item Value Reference Range Interpretation Comments UA Bili (test code = Negative *NA*(07/10/2011 UA Bili) 07:02:00) [facility] CenterBllggmsQDTXEXMKSR9316-89-50 13:02:00 Test Item Value Reference Range Interpretation Comments UA Turbidity (test code = Clear (07/10/2011 N UA Turbidity) 07:02:00) [facility] CenterUcihylcCIAKQGJURN2050-42-86 13:02:00 Test Item Value Reference Range Interpretation Comments UA Color (test code = Light Yellow UA Color) *NA*(07/10/2011 07:02:00) [facility]CsgghpsLDGSTQWEM0602-80-74 09:00:00 Test Item Value Reference Range Interpretation Comments Lactic Acid Lvl (test code = Lactic 1.4 0.5-2.2 N Acid Lvl) [facility] CenterPzpshfnOMUWIEZHZ9707-58-45 09:00:00 Test Item Value Reference Range Interpretation Comments TSH (test code = TSH) 1.260 0.360-3.740 N [facility] CenterIiajfegDNIKJPCTH8413-44-51 09:00:00 Test Item Value Reference Range Interpretation Comments Magnesium Lvl (test code = Magnesium 2.0 1.8-2.4 N Lvl) [facility] CenterSomuvvwYXGPRROPB6243-44-47 09:00:00 Test Item Value Reference Range Interpretation Comments Phosphorus (test code = Phosphorus) 3.0 2.5-4.5 N [facility] CenterAkhjsejFIMPWNGWV6224-66-38 09:00:00 Test Item Value Reference Range Interpretation Comments A/G Ratio (test code = A/G Ratio) 1.2 0.7-1.6 N [facility] CenterJxkdqjgRSYRRSBUL7284-81-07 09:00:00 Test Item Value Reference Range Interpretation Comments AGAP (test code = AGAP) 15.2 10.0-20.0 N [facility]QpwdcqqRSJUHMFUN2280-44-89 09:00:00 Test Item Value Reference Range Interpretation Comments B/C Ratio (test code = B/C Ratio) 12 6-25 N [facility] CenterBkbfyhhQSDQHNQLV6667-07-68 09:00:00 Test Item Value Reference Range Interpretation Comments Globulin (test code = Globulin) 3.2 2.0-4.0 N [facility] CenterNgizsafNNDOXIZNQ6006-33-73 09:00:00 Test Item Value Reference Range Interpretation Comments ALT (test code = ALT) 37 See_Comment N [Auto mated message] The system which ge nerated this result transmit clarita reference range : <=65. The reference range was not used to interpr et this result as brendan l/abnormal. [facility] CenterBnfoyqsLJRIBJKVB5624-63-10 09:00:00 Test Item Value Reference Range Interpretation Comments CO2 (test code = CO2) 27 24-32 N [facility] CenterTbcouvoTGCWVCRDQ9969-34-37 09:00:00 Test Item Value Reference Range Interpretation Comments Calcium Lvl (test code = Calcium Lvl) 8.6 8.5-10.5 N [facility] CenterWcmpaifIVSKWLJLV9968-35-58 09:00:00 Test Item Value Reference Range Interpretation Comments AST (test code = AST) 22 See_Comment N [Auto mated message] The system which ge nerated this result transmit clarita reference range : <=37. The reference range was not used to interpr et this result as brendan l/abnormal. [facility] CenterJdqpoceTENDVLFYW8532-91-98 09:00:00 Test Item Value Reference Range Interpretation Comments Total Protein (test code = Total 6.9 6.4-8.4 N Protein) [facility] CenterDhfnyvfQQIWXWKCI1300-60-17 09:00:00 Test Item Value Reference Range Interpretation Comments Chloride Lvl (test code = Chloride Lvl) 105 95-109 N [facility] CenterFsdbdooZZTDHXKPU7011-47-51 09:00:00 Test Item Value Reference Range Interpretation Comments Potassium Lvl (test code = Potassium 4.2 3.5-5.1 N Lvl) [facility] CenterVacctyjXNEUIWYHP0433-24-70 09:00:00 Test Item Value Reference Range Interpretation Comments Bili Total (test code = Bili Total) 0.3 0.2-1.3 N [facility] CenterWrsrfmgZNKWTRBWY2765-83-43 09:00:00 Test Item Value Reference Range Interpretation Comments Albumin Lvl (test code = Albumin Lvl) 3.7 3.5-5.0 N [facility] CenterKxijqizFMNFGBPAI6500-71-42 09:00:00 Test Item Value Reference Range Interpretation Comments BUN (test code = BUN) 11 7-22 N [facility] CenterIonhhwwCIASAYJWG4700-75-76 09:00:00 Test Item Value Reference Range Interpretation Comments Creatinine Lvl (test code = Creatinine 0.9 0.5-1.4 N Lvl) [facility] CenterNoqcqjkYJJAXVYUB6529-38-09 09:00:00 Test Item Value Reference Range Interpretation Comments Alk Phos (test code = Alk Phos) 87 39-136 N [facility] CenterNvbhsopZIRDOYTSY7657-46-35 09:00:00 Test Item Value Reference Range Interpretation Comments Sodium Lvl (test code = Sodium Lvl) 143 135-145 N [facility] CenterBaynsxwZBIQGYJJK0859-37-91 09:00:00 Test Item Value Reference Range Interpretation Comments Glucose Lvl (test code = Glucose Lvl) 102 [facility] HospitalHzxudvnCRCNVBOSHQ6766-98-24 09:00:00 Test Item Value Reference Range Interpretation Comments Eosinophils # (test code 0.4 See_Comment N [A utomated message] The = Eosinophils #) system whic h generated this result tra nsmitted reference range : <=0.5. The reference r sumeet was not used to int erpret this result as normal/abnormal . [facility] HospitalTylmwtvXOOSCROSWW7218-59-99 09:00:00 Test Item Value Reference Range Interpretation Comments Eosinophils (test code = 3.0 See_Comment N [A utomated message] The Eosinophils) system which ge nerated this result tra nsmitted reference range : <=4.0. The reference r sumeet was not used to int erpret this result as normal/abnormal . [facility] HospitalQrycwllWPUNPGGVHI6554-74-41 09:00:00 Test Item Value Reference Range Interpretation Comments Lymphocytes # (test code = Lymphocytes 2.0 1.0-5.5 N #) [facility] HospitalLtiothdMFUHSANDLB0567-35-90 09:00:00 Test Item Value Reference Range Interpretation Comments Segs-Bands # (test code = Segs-Bands #) 8.0 1.5-8.1 N [facility] HospitalBybhapqSFLVRUJZHC8306-36-37 09:00:00 Test Item Value Reference Range Interpretation Comments Monocytes # (test code 1.3 See_Comment H [Aut omated message] The = Monocytes #) system which generated this result tra nsmitted reference range : <=0.8. The reference r sumeet was not used to int erpret this result as normal/abnormal . [facility] HospitalYdocoobKJJURMGECD5321-06-76 09:00:00 Test Item Value Reference Range Interpretation Comments Macrocyte (test code = 1+ *ABN*(07/10/2011 A Macrocyte) 03:00:00) [facility] HospitalRgufijgSVAQHKLLCR0548-13-52 09:00:00 Test Item Value Reference Range Interpretation Comments Monocytes (test code = Monocytes) 11.0 2.0-12.0 N [facility] HospitalXryijyaBNOWKGZLXI6801-43-64 09:00:00 Test Item Value Reference Range Interpretation Comments Basophils (test code = 0.3 See_Comment N [Aut omated message] The Basophils) system which ge nerated this result tra nsmitted reference range : <=1.0. The reference r sumeet was not used to int erpret this result as normal/abnormal . [facility] HospitalNfmftcwKJJQOHFENI7626-05-76 09:00:00 Test Item Value Reference Range Interpretation Comments Basophils # (test code 0.0 See_Comment N [Aut omated message] The = Basophils #) system which generated this result tra nsmitted reference range : <=0.2. The reference r sumeet was not used to int erpret this result as normal/abnormal . [facility] HospitalGugobwpPERJMRFNEO9591-13-68 09:00:00 Test Item Value Reference Range Interpretation Comments Segs (test code = Segs) 68.9 45.0-75.0 N [facility] HospitalTosdhpwCZKBOERDKD5995-37-30 09:00:00 Test Item Value Reference Range Interpretation Comments Lymphocytes (test code = Lymphocytes) 16.8 20.0-40.0 L [facility] HospitalEzgarjkCBVIEXHXKH9885-37-77 09:00:00 Test Item Value Reference Range Interpretation Comments RDW (test code = RDW) 13.4 11.5-14.5 N [facility] HospitalIlhbnlgVJVFZQDVPB1506-55-53 09:00:00 Test Item Value Reference Range Interpretation Comments Platelet (test code = Platelet) 188 133-450 N [facility] HospitalUsinnjgEVJZGPQWKZ8345-57-16 09:00:00 Test Item Value Reference Range Interpretation Comments MPV (test code = MPV) 9.5 7.4-10.4 N [facility] HospitalQmjhtbiIVIZEEPLLW4830-92-64 09:00:00 Test Item Value Reference Range Interpretation Comments MCH (test code = MCH) 34.2 pg 27.0-31.0 H [facility] HospitalGboyiaxLPGLSBGSXJ9076-85-68 09:00:00 Test Item Value Reference Range Interpretation Comments MCHC (test code = MCHC) 34.0 32.0-36.0 N [facility] HospitalJsxtnhnANYAWGABZS3331-55-00 09:00:00 Test Item Value Reference Range Interpretation Comments MCV (test code = MCV) 100.5 80.0-94.0 H [facility] HospitalRavhtocHOZZXGSNKO8623-39-61 09:00:00 Test Item Value Reference Range Interpretation Comments Hct (test code = Hct) 39.9 42.0-54.0 L [facility] HospitalQsiwfyuCEFDILSRBQ0815-98-60 09:00:00 Test Item Value Reference Range Interpretation Comments Hgb (test code = Hgb) 13.6 14.0-18.0 L [facility] HospitalEyojtyqQGJOVPJUNE2126-05-83 09:00:00 Test Item Value Reference Range Interpretation Comments RBC (test code = RBC) 3.97 4.70-6.10 L [facility] HospitalYhvnzdxEDAZJQYHFX5981-54-37 09:00:00 Test Item Value Reference Range Interpretation Comments WBC (test code = WBC) 11.7 3.7-10.4 H [facility]KvlcwznNlhnuajjjsgd5742-39-23 08:33:00 Test Item Value Reference Range Interpretation Comments Culture: Respiratory w/Gram Stain (test code = Culture: Respiratory w/Gram Stain) [facility] CenterHcrjaphMGUBLFXUE2168-49-41 01:18:00 Test Item Value Reference Range Interpretation Comments Bili Direct (test code 0.1 See_Comment N [Aut omated message] The = Bili Direct) system which generated this result tra nsmitted reference range : <=0.3. The reference r sumeet was not used to int erpret this result as brendan l/abnormal. [facility] CenterVrhrwhaZBIZDFLAB6108-59-19 01:18:00 Test Item Value Reference Range Interpretation Comments Bili Indirect (test 0.1 See_Comment N [Automa clarita message] The code = Bili Indirect) system which generated this result tra nsmitted reference range : <=1.0. The reference r sumeet was not used to int erpret this result as normal/abnormal . [facility]LYVJQCUS4072-[facility]-95 01:18:00 Test Item Value Reference Range Interpretation Comments LDH (test code = LDH) 313 98-192 H [facility] CenterDqicaymFCZGBKQFK8529-61-03 22:35:00 Test Item Value Reference Range Interpretation Comments Lactic Acid Lvl (test code = Lactic 0.7 0.5-2.2 N Acid Lvl) [facility]EuhgpqxPHSJINSCVE7541-74-23 22:35:00 Test Item Value Reference Range Interpretation Comments Plt Morph (test code = Normal (07/09/2011 N Plt Morph) 16:35:00) [facility] HospitalBejdvulJKXHEVRWKW9557-92-99 22:35:00 Test Item Value Reference Range Interpretation Comments RBC Morph (test code = Normal (07/09/2011 N RBC Morph) 16:35:00) [facility]BmaougbXdtrwnlxgkbd6216-60-24 22:15:00 Test Item Value Reference Range Interpretation Comments Culture: Blood (test code = Culture: Blood) [facility] MISC - LLJBAYJS3395-13-72 13:02:00 Test Item Value Reference Range Interpretation Comments U Legion Ag (test code Negative 1(07/09/2011 N = U Legion Ag) 07:02:00) [facility]
--- NOTE | 2021-06-05 20:03 | RAD REPORT ---
EXAM DESCRIPTION: RAD - Chest Single View - 06/05/2021 7:57 pm CLINICAL HISTORY: SOB Chest pain. COMPARISON: CHEST SINGLE VIEW dated 10/22/2013 FINDINGS: Portable technique limits examination quality. The lungs are grossly clear. The heart is normal in size. No displaced fractures.Dual lead pacer reva ce noted. IMPRESSION: No acute intrathoracic process suspected.
[2021-06-05 20:05] LABS: Absolute Lymphocytes (CBC) 1.8 K/uL (0.7-4.9); Hematocrit 43.4 % (39.6-49.0); Lymphocytes % 17.6 % (15.3-44.8); MPV 9.6 fL (7.6-11.3); Protime INR 0.99; RBC Red Blood Cell Count 4.65 M/uL (4.33-5.43)
[2021-06-05] MEDS ORDERED: MORPHINE 2 MG/ML SYR ONE (21:19)
[2021-06-05] MEDS ORDERED: ONDANSETRON 4 MG/2 ML VIAL ONE (21:19)
[2021-06-05 21:24] LABS: SARS-COV-2 RT PCR NEGATIVE (NEGATIVE)
[2021-06-05 22:10] LABS: ALT/SGPT 58 U/L (12-78); AST/SGOT 38 U/L (15-37); Albumin 3.5 g/dL (3.4-5.0); Alkaline Phosphatase 97 U/L (45-117); BUN Blood Urea Nitrogen 11 mg/dL (7-18); Bicarbonate 35 mmol/L (21-32); Bilirubin Direct < 0.1 mg/dL (0-0.2); Bilirubin Total 0.1 mg/dL (0.2-1.0); Glucose Level 146 mg/dL (74-106); NT PRO-BNP 377 pg/mL (<125); Potassium 4.3 mmol/L (3.5-5.1); Protein, Total 7.8 g/dL (6.4-8.2); Sodium Level 140 mmol/L (136-145)
[2021-06-05] MEDS ORDERED: HEPARIN/D5W 25,000 UNIT/500 ML BAG IV ONE (23:41)
[2021-06-05] MEDS ORDERED: HEPARIN 5000 UNIT/ML 1 ML VIAL ONE (23:41)
--- NOTE | 2021-06-06 00:27 | ER ---
Nurse's Notes [facility] Name: Owen Duarte Age: 51 yrs Sex: Male : 1970 Arrival Date: 06/05/2021 Time: 17:41 Bed 20 Private MD: Diagnosis: Non ST elevation ME Presentation: 06/05 17:45 Chief complaint: Patient states: I came here today because my 02 at home was low. ld1 Anytime I get up to go to the bathroom or walk my O2 drops to 80's. Coronavirus screen: At this time, the client does not indicate any symptoms associated with coronavirus-19. Ebola Screen: No symptoms or risks identified at this time. Initial Sepsis Screen: Does the patient meet any 2 criteria? No. Patient's initial sepsis screen is negative. Does the patient have a suspected source of infection? No. Patient's initial sepsis screen is negative. Risk Assessment: Do you want to hurt yourself or someone else? Patient reports no desire to harm self or others. Onset of symptoms was June 05, 2021. 17:45 Method Of Arrival: Ambulatory ld1 17:45 Acuity: IRON 3 ld1 Triage Assessment: 17:45 General: Appears in no apparent distress. comfortable, Behavior is calm, cooperative, ld1 appropriate for age. Pain: Denies pain. Neuro: Level of Consciousness is awake, alert, obeys commands, Oriented to person, place, time, situation, Appropriate for age. Cardiovascular: Capillary refill < 3 seconds Patient's skin is warm and dry. Respiratory: Airway is patent Respiratory effort is even, unlabored, Respiratory pattern is regular, symmetrical. GI: Abdomen is round non-distended. Historical: - Allergies: 17:45 PENICILLINS; ld1 17:45 Sulfa (Sulfonamide Antibiotics); ld1 - PMHx: 17:45 COPD; Diabetes mellitus; Heart attack; pacemaker; Asthma; Hypertensive disorder; ld1 Hypercholesterolemia; - PSHx: 17:45 None; ld1 - Immunization history:: Adult Immunizations up to date, Client reports receiving the 2nd dose of the Covid vaccine. - Social history:: Smoking status: Patient/guardian denies using tobacco, but has a distant history of tobacco abuse, Patient uses alcohol, occasionally. Screenin:54 Abuse screen: Denies threats or abuse. Denies injuries from another. Nutritional bp screening: No deficits noted. Tuberculosis screening: No symptoms or risk factors identified. Fall Risk None identified. Assessment: 18:54 General: SEE TRIAGE NOTE. bp 23:52 Reassessment: The patient c/o shortness of breath and not feeling well. His sats sv1 dropped to 77. His breathing was rapid and very shallow. NRB was applied . RT zeynep an ABG. Bipap was ordered. Heparan 5000 units was given. Heparin drip started as per protocol. The patient weighs 305 pounds. . 06/06 01:10 Reassessment: The patient is being admitted to room 2 ICU. Report called to Arthur ZENG. . sv1 Vital Signs: 06/05 17:45 BP 147 / 83; Pulse 83; Resp 20; Temp 98.4(O); Pulse Ox 99% on 6 lpm NC; Weight 138.35 ld1 kg; Height 6 ft. 0 in. (182.88 cm); Pain 0/10; 18:54 BP 156 / 87; Pulse 75; Resp 16; Pulse Ox 99% ; bp 20:15 BP 195 / 95 LA Supine (/reg); Pulse 109 MON; Resp 17 S; Temp 99.4(O); Pulse Ox 99% on 4 sv1 lpm NC; 21:30 BP 159 / 80 LA Sitting (auto/lg); Pulse 86 MON; Resp 18; Pulse Ox 99% on R/A; Pain 6/10;sv1 23:34 BP 144 / 80 LA Supine (/lg); Pulse 103 MON; Resp 23 S; Pulse Ox 77% 4 lpm ; Weight sv1 138.35 kg; Pain 8/10; 06/06 00:49 BP 142 / 72 LA Supine; Pulse 109 MON; Resp 20 A; Pulse Ox 94% on BiPAP; sv1 01:01 BP 148 / 87 LA (auto/lg); Pulse 109 MON; Resp 29 A; Temp 97.4; Pulse Ox 96% on 60% sv1 BiPAP; 06/05 23:34 Body Mass Index 41.37 (138.35 kg, 182.88 cm) sv1 ED Course: 06/05 17:41 Patient arrived in ED. ds1 17:45 Arm band placed on right wrist. ld1 17:48 Triage completed. ld1 18:49 Torito Negron PA is PHCP. [facility] 18:49 Joao Mckenna MD is Attending Physician. [facility] 18:53 Shan Blue, RN is Primary Nurse. bp 18:54 Patient has correct armband on for positive identification. Bed in low position. Call bp light in reach. Side rails up X2. 19:27 Inserted. ld1 19:50 Inserted saline lock: 20 gauge in right antecubital area, using aseptic technique. oe Blood collected. 20:24 XRAY Chest (1 view) In Process Unspecified. EDMS 20:24 COVID-19/FLU A+B (Document "Date of Onset" if Symptomatic) Sent. sv1 20:24 Basic Metabolic Panel Sent. sv1 20:24 CBC with Diff Sent. sv1 20:24 LFT's Sent. sv1 20:24 Magnesium Sent. sv1 20:24 NT PRO-BNP Sent. sv1 20:24 Basic Metabolic Panel Sent. sv1 20:24 Troponin HS Sent. sv1 20:31 COVID-19/FLU A+B (Document "Date of Onset" if Symptomatic) Sent. sv1 22:11 Notified ED physician of other Troponin 4980.8. tw5 23:09 CT Chest For PE Angio In Process Unspecified. EDMS 23:52 ABG Sent. sv1 06/06 00:07 BIPAP Sent. tk1 00:25 Balbir Mckenna MD is Hospitalizing Provider. [facility] Administered Medications: 06/05 21:23 Drug: Zofran (Ondansetron) 4 mg Route: IVP; Site: right antecubital; sv1 06/06 01:12 Follow up: Response: No adverse reaction sv1 06/05 21:24 Drug: morphine 2 mg Route: IVP; Site: right antecubital; sv1 06/06 01:13 Follow up: Response: No adverse reaction; Pain is decreased sv1 06/05 23:49 Drug: Heparin (ME-Bolus No thrombolytic) - HEParin 60 units/kg {Co-Signature: tk1 sv1 (Rosario Szymanski).} Route: IVP; Site: right antecubital; 06/06 01:12 Follow up: Response: No adverse reaction sv1 06/05 23:51 Drug: Heparin (ME Drip) 12 units/kg/hr - (HEParin 39551 units, D5W 500 ml) sv1 {Co-Signature: tk1 (Rosario Stephon).} Route: IV; Rate: calculated rate; Site: right antecubital; 06/06 01:11 Follow up: Response: No adverse reaction sv1 01:13 Not Given (patient hard to arousee): Aspirin Chewable Tablet 324 mg PO once; 81 mg sv1 tablets x 4 Outcome: 00:26 Decision to Hospitalize by Provider. arely 01:00 Admitted to ICU sv1 01:00 Condition: stable 01:00 Instructed on the need for admit. 01:20 Patient left the ED. sv1 Signatures: Dispatcher [employer] EDMS Torito Negron PA PA jmm Sanford, Demi ds1 Gray Chamberlain Brian, RN RN Emani Alvarado RN RN ld1 Kaylyn Squires tw5 Manish Celaya RN RN sv1 Szymanski, Rosario tk1 Rosario Stephon tk1
--- NOTE | 2021-06-06 00:27 | EDPHYS ---
Physician Documentation [facility] Name: Owen Duarte Age: 51 yrs Sex: Male : 1970 Arrival Date: 06/05/2021 Time: 17:41 Bed 20 Private MD: ED Physician Joao Mckenna HPI: 06/05 19:12 This 51 yrs old Unknown Male presents to ER via Ambulatory with complaints of Low o2. jmm 19:12 The patient has shortness of breath at rest. Onset: The symptoms/episode began/occurred jmm gradually, 2 week(s) ago. Duration: The symptoms are continuous, and are steadily getting worse. The patient's shortness of breath is aggravated by nothing, is alleviated by nothing. Associated signs and symptoms: Pertinent negatives: chest pain. The patient has experienced similar episodes in the past. Historical: - Allergies: 17:45 PENICILLINS; ld1 17:45 Sulfa (Sulfonamide Antibiotics); ld1 - PMHx: 17:45 COPD; Diabetes mellitus; Heart attack; pacemaker; Asthma; Hypertensive disorder; ld1 Hypercholesterolemia; - PSHx: 17:45 None; ld1 - Immunization history:: Adult Immunizations up to date, Client reports receiving the 2nd dose of the Covid vaccine. - Social history:: Smoking status: Patient/guardian denies using tobacco, but has a distant history of tobacco abuse, Patient uses alcohol, occasionally. ROS: 19:12 Constitutional: Negative for fever, chills, and weight loss, Cardiovascular: Negative jmm for chest pain, palpitations, and edema. 19:12 Respiratory: Positive for cough, shortness of breath. 19:12 All other systems are negative. Exam: 19:12 Constitutional: This is a well developed, well nourished patient who is awake, alert, jmm and in no acute distress. Head/Face: atraumatic. Eyes: EOMI, no conjunctival erythema appreciated ENT: Moist Mucus Membranes Neck: Trachea midline, Supple Chest/axilla: Normal chest wall appearance and motion. Cardiovascular: Regular rate and rhythm. No edema appreciated 19:12 Back: Normal ROM Skin: General appearance color normal MS/ Extremity: Moves all extremities, no obvious deformities appreciated, no edema noted to the lower extremities Neuro: Awake and alert Psych: Behavior is normal, Mood is normal, Patient is cooperative and pleasant 19:12 Respiratory: the patient does not display signs of respiratory distress, Respirations: normal, Breath sounds: are clear throughout. 19:12 Abdomen/GI: Inspection: distension, Bowel sounds: normal, Palpation: abdomen is soft and non-tender. Vital Signs: 17:45 BP 147 / 83; Pulse 83; Resp 20; Temp 98.4(O); Pulse Ox 99% on 6 lpm NC; Weight 138.35 ld1 kg; Height 6 ft. 0 in. (182.88 cm); Pain 0/10; 18:54 BP 156 / 87; Pulse 75; Resp 16; Pulse Ox 99% ; bp 20:15 BP 195 / 95 LA Supine (/reg); Pulse 109 MON; Resp 17 S; Temp 99.4(O); Pulse Ox 99% on 4 sv1 lpm NC; 21:30 BP 159 / 80 LA Sitting (auto/lg); Pulse 86 MON; Resp 18; Pulse Ox 99% on R/A; Pain 6/10;sv1 23:34 BP 144 / 80 LA Supine (/lg); Pulse 103 MON; Resp 23 S; Pulse Ox 77% 4 lpm ; Weight sv1 138.35 kg; Pain 8/10; 06/06 00:49 BP 142 / 72 LA Supine; Pulse 109 MON; Resp 20 A; Pulse Ox 94% on BiPAP; sv1 01:01 BP 148 / 87 LA (auto/lg); Pulse 109 MON; Resp 29 A; Temp 97.4; Pulse Ox 96% on 60% sv1 BiPAP; 06/05 23:34 Body Mass Index 41.37 (138.35 kg, 182.88 cm) sv1 MDM: 06/05 19:09 Patient medically screened. [facility] 23:48 Data reviewed: vital signs, nurses notes. Counseling: I had a detailed discussion with [facility] the patient and/or guardian regarding: the historical points, exam findings, and any diagnostic results supporting the discharge/admit diagnosis, lab results, radiology results, the need for further work-up and treatment in the hospital. 06/05 19:12 Order name: Basic Metabolic Panel; Complete Time: 00:36 [facility] 06/05 19:12 Order name: CBC with Diff; Complete Time: 20:36 [facility] 06/05 19:12 Order name: LFT's; Complete Time: 00:36 [facility] 06/05 19:12 Order name: Magnesium; Complete Time: 00:36 [facility] 06/05 19:12 Order name: NT PRO-BNP; Complete Time: 00:36 [facility] 06/05 19:12 Order name: PT-INR; Complete Time: 20:36 [facility] 06/05 19:12 Order name: Troponin HS; Complete Time: 00:36 [facility] 06/05 19:12 Order name: XRAY Chest (1 view); Complete Time: 20:36 [facility] 06/05 19:12 Order name: COVID-19/FLU A+B (Document "Date of Onset" if Symptomatic); Complete Time: [facility] 21:32 06/05 22:21 Order name: CT Chest For PE Angio [facility] 06/05 23:10 Order name: ABG la 06/05 23:30 Order name: BIPAP [facility] 06/05 19:12 Order name: EKG; Complete Time: 19:34 [facility] 06/05 19:12 Order name: Cardiac monitoring; Complete Time: 19:26 [facility] 06/05 19:12 Order name: EKG - Nurse/Tech; Complete Time: 19:26 [facility] 06/05 19:12 Order name: IV Saline Lock; Complete Time: 19:26 [facility] 06/05 19:12 Order name: Labs collected and sent; Complete Time: 19:26 [facility] 06/05 19:12 Order name: O2 Per Protocol; Complete Time: 19:26 [facility] 06/05 19:12 Order name: O2 Sat Monitoring; Complete Time: 19:26 [facility] 06/05 22:15 Order name: EKG; Complete Time: 22:21 tw5 06/05 22:15 Order name: EKG - Nurse/Tech; Complete Time: 23:36 tw5 Administered Medications: 21:23 Drug: Zofran (Ondansetron) 4 mg Route: IVP; Site: right antecubital; sv1 06/06 01:12 Follow up: Response: No adverse reaction 1 06/05 21:24 Drug: morphine 2 mg Route: IVP; Site: right antecubital; sv1 06/06 01:13 Follow up: Response: No adverse reaction; Pain is decreased 1 06/05 23:49 Drug: Heparin (MO-Bolus No thrombolytic) - HEParin 60 units/kg {Co-Signature: tk1 sv1 (Rosario Szymanski).} Route: IVP; Site: right antecubital; 06/06 01:12 Follow up: Response: No adverse reaction sv1 06/05 23:51 Drug: Heparin (MO Drip) 12 units/kg/hr - (HEParin 36951 units, D5W 500 ml) sv1 {Co-Signature: tk1 (Rosario Szymanski).} Route: IV; Rate: calculated rate; Site: right antecubital; 06/06 01:11 Follow up: Response: No adverse reaction sv1 01:13 Not Given (patient hard to arousee): Aspirin Chewable Tablet 324 mg PO once; 81 mg sv1 tablets x 4 Disposition Summary: 06/06/21 00:26 Hospitalization Ordered Hospitalization Status: Inpatient Admission [facility] Provider: Balbir Mckenna Condition: Stable jm Problem: an acute exacerbation jmm Symptoms: are unchanged [facility] Bed/Room Type: Standard [facility] Location: Intensive Care Unit(06/06/21 00:54) Room Assignment: 2-(06/06/21 00:54) mw Diagnosis - Non ST elevation MO [facility] Forms: - Medication Reconciliation Form [facility] - SBAR form [facility] Addendum: 06/09/2021 07:14 Co-signature as Attending Physician, Joao Mckenna MD. r n Signatures: Dispatcher [employer] EDMS Pura Penaloza RN RN Torito Negron PA PA [facility] Joao Mckenna MD MD rn Attema, Lee, CERTIFIED MEDICINE AIDE-C CERTIFIED MEDICINE AIDE-Cla1 Emani Alvarado RN RN ld1 Kaylyn Squires tw5 Manish Celaya RN RN sv1 Rosario Szymanski tk1 Corrections: (The following items were deleted from the chart) 06/05 20:24 19:34 Chest Single View ordered. EDID EDID 06/06 00:54 00:26 Telemetry/MedSurg (Inpatient) [facility] 00:54 00:26 jm mw
[2021-06-06 00:34] LABS: Magnesium 1.8 mg/dL (1.8-2.4)
--- NOTE | 2021-06-06 01:08 | P.HP ---
Certification for Inpatient Patient admitted to: Inpatient With expected LOS: >2 Midnights Patient will require the following post-hospital care: None Practitioner: I am a practitioner with admitting privileges, knowledge of patient current condition, hospital course, and medical plan of care. Services: Services provided to patient in accordance with Admission requirements found in Title 42 Section 412.3 of the Code of Federal Regulations <CherriYony Reese - Last Filed: 06/06/21 02:24> Patient History Date of Service: 06/06/21 Primary Care Provider: Unknown Reason for admission: NSTEMI History of Present Illness: 51-year-old male patient with history of COPD, RADHA, diabetes mellitus type 2, CAD, pacemaker/defibrillator, hypertension disorder, hyper lipidemia presents emergency department for low oxygen level, patient reports that anytime he got up to walk around his oxygen level dropped into the 80s. Patient was evaluated in the emergency department labs were significant for carbon oxide 35 glucose 146 troponin high-sensitivity 4980.8 BNP 377. During patient's emergency department stay he developed severe chest pain after desaturating into the 70s, patient was placed on BiPAP and ABG was obtained which revealed patient was hypercapnic with a PCO2 of 103. Patient improved after application of BiPAP saturations improved and chest pain improved. Patient was started on heparin drip, ED provider wishes to admit for NSTEMI. EKG without ST elevation. reports that patient was seen at [facility] in [place] approximately 1 month ago where he had multiple stents placed and pacemaker/defibrillator placed. Patient very poor historian, very drowsy on BiPAP at this time. Will admit to ICU for further evaluation and management. - Past Medical/Surgical History Diabetic: Yes -: Hepatitis C -: DDD/DJD of the spine -: Chronic pain -: Seizures -: History of Cardiomyopathy, CAD -: HTN -: Hyperlipidemia -: History of CVA -: Anxiety -: Tobacco abuse -: RADHA, COPD -: Fusion of C spine -: I/D of the left hand -: Pacemaker/defibrillator Psychosocial/ Personal History: - Social History Smoking Status: Never smoker Alcohol use: Yes CD- Drugs: No Caffeine use: Yes Place of Residence: Home <Yony Harley - Last Filed: 06/06/21 02:24> Date of Service: 06/06/21 <Balbir Mckenna - Last Filed: 06/06/21 13:18> Allergies Sulfa (Sulfonamide Antibiotics) Allergy (Verified 05/16/21 21:44) Anaphylaxis Home Medications: Aspirin [Aspirin EC] 81 mg PO DAILY 05/16/21 Atorvastatin Calcium [Lipitor] 80 mg PO BEDTIME 05/16/21 Clopidogrel Bisulfate [Plavix*] 75 mg PO DAILY 05/16/21 Furosemide [Lasix*] 40 mg PO DAILY 05/16/21 Lisinopril [Zestril] 10 mg PO DAILY 05/16/21 Nitroglycerin 0.4 mg SL Q5MX3 PRN 05/16/21 carvediloL [Carvedilol] 6.25 mg PO BID 05/16/21 Cranberry Fruit Extract 400 mg PO DAILY #30 cap 05/24/21 Docusate/Senna [Senokot-S*] 1 tab PO BEDTIME PRN #30 tab 05/24/21 Hydrocodone 5/APAP 325 [[place] 5/325*] 1 tab PO Q8HP PRN tab 05/24/21 Potassium Oral Tab [Klor-Con 10 mEq Tab*] 10 meq PO DAILY #30 tab 05/24/21 Metformin HCl 1 tab PO BID 06/06/21 Review of Systems 10-point ROS is otherwise unremarkable Respiratory: Shortness of Breath Cardiovascular: Chest Pain <Yony Harley - Last Filed: 06/06/21 02:24> Physical Examination - Physical Exam General: Alert, In no apparent distress, Oriented x3, Other (Drowsy) HEENT: Atraumatic, PERRLA, Mucous membr. moist/pink, EOMI, Sclerae nonicteric Neck: Supple, 2+ carotid pulse no bruit, No LAD, Without JVD or thyroid abnormality Respiratory: Diminished Cardiovascular: Regular rate/rhythm, Normal S1 S2, Edema (2+ pitting edema bilateral lower extremities) Capillary refill: <2 Seconds Gastrointestinal: Normal bowel sounds, No tenderness Musculoskeletal: No tenderness Integumentary: No rashes Neurological: Normal speech, Normal strength at 5/5 x4 extr, Normal tone, Normal affect - Studies Laboratory Data (last 24 hrs) 06/05/21 19:38: PT 11.4, INR 0.99 06/05/21 19:38: WBC 10.20, Hgb 13.8, Hct 43.4, Plt Count 194 06/05/21 19:38: Sodium 140, Potassium 4.3, BUN 11, Creatinine 0.86, Glucose 146 H, Magnesium 1.8, Total Bilirubin 0.1 L, AST 38 H, ALT 58, Alkaline Phosphatase 97 <Yony Harley - Last Filed: 06/06/21 02:24> - Studies Laboratory Data (last 24 hrs) 06/05/21 19:38: PT 11.4, INR 0.99 06/05/21 19:38: WBC 10.20, Hgb 13.8, Hct 43.4, Plt Count 194 06/05/21 19:38: Sodium 140, Potassium 4.3, BUN 11, Creatinine 0.86, Glucose 146 H, Magnesium 1.8, Total Bilirubin 0.1 L, AST 38 H, ALT 58, Alkaline Phosphatase 97 <Balbir Mckenna - Last Filed: 06/06/21 13:18> Assessment and Plan - Plan Assessment: NSTEMI with history of CAD S/P pacemaker/defibrillator placement Acute on chronic hypercapnic respiratory failure secondary to RADHA/COPD Diabetes type 2 [id number]-xyzduqnbx Hypertension Hyperlipidemia Plan: NSTEMI with history of CAD S/P pacemaker/defibrillator placement: Patient on heparin drip at this time, chest pain improved. Trend troponin, monitor on telemetry, cardiology consulted. Continue aspirin, statin, beta-loraine therapy as well as Lasix. Echocardiogram ordered. N.p.o. in anticipation of possible heart catheterization, patient with severe RADHA, noted to be hypoxic at times, potentially related to demand ischemia. Appreciate further input from cardio logy/pulmonology. Acute on chronic hypercapnic respiratory failure secondary to RADHA/COPD: Continue BiPAP and submental oxygen as needed, repeat ABG. Pulmonology consulted, as needed nebulizer treatments. PRN Nebs. Diabetes type 2 crn-gxzwiyb-gsxmpinvl: ACH S Accu-Chek, sliding scale insulin. Hypertension: Carvedilol continue, obtain continue other home medications. Hyperlipidemia: Continue medications. DVT PPX: Heparin drip Code status: Full Discharge Plan: Home Plan to discharge in: 72 Hours - Advance Directives Does patient have a Living Will: No Does patient have a Durable POA for Healthcare: No - Code Status/Comfort Care Code Status Assessed: Yes (Full code) Critical Care: No Time Spent Managing Pts Care (In Minutes): 55 <Yony Harley - Last Filed: 06/06/21 02:24> - Plan Patient seen and examined on rounds this morning Remains on heparin drip, on mechanical ventilation. FiO2 weaning down, PO2 and PCO2 improving Troponin downtrending, scheduled for echocardiogram this morning. Discussed with cardiology, no immediate plans for cardiac catheterization, to continue treatment for COPD exacerbation, further recommendations after echo results. Trend troponin Pulmonology following <Balbir Mckenna - Last Filed: 06/06/21 13:18>
[2021-06-06] MEDS ORDERED: IPRATROPIUM BROM 0.5MG/2.5ML NEB ONE ×2 (02:05→03:39)
[2021-06-06] MEDS ORDERED: ALBUTEROL 2.5 MG/3 ML NEB SOL NEB ONE ×2 (02:05→03:39)
[2021-06-06] MEDS ORDERED: ONDANSETRON 4 MG/2 ML VIAL IV PRN (02:39)
[2021-06-06] MEDS ORDERED: HEPARIN/D5W 25,000 UNIT/500 ML BAG IV SCH (02:39)
[2021-06-06] MEDS ORDERED: RSI MEDICATION KIT IV ONE (02:55)
[2021-06-06 03:00] LABS: Arterial Blood Carboxyhemoglob 2.7 % (0-1.5); Blood Gas Oxyhemoglobin 79.1 % (94-97); Blood O2 Saturation 82.5 % (92-98.5)
[2021-06-06] MEDS ORDERED: SUCCINYLCHOLINE 20 MG/ML (10 ML) IV ONE ×2 (03:15→13:23)
[2021-06-06] MEDS ORDERED: ETOMIDATE 20 MG/10 ML VIAL IV ONE ×3 (03:15→13:23)
[2021-06-06] MEDS ORDERED: propofoL 200 MG/20 ML VIAL IV ONE (03:33)
[2021-06-06] MEDS ORDERED: propofoL 1,000 MG/100 ML VIAL IV ONE (03:34)
[2021-06-06] MEDS ORDERED: NA CHLORIDE 0.9% 250 ML IV PRN (03:37)
[2021-06-06] MEDS ORDERED: METHYLPREDNISOLONE 125 MG INJ IV ONE (03:39)
[2021-06-06 05:06] LABS: Hematocrit 42.6 % (39.6-49.0); MPV 9.2 fL (7.6-11.3); RBC Red Blood Cell Count 4.53 M/uL (4.33-5.43)
[2021-06-06] MEDS: FENTANYL CITR 100 MCG/2 ML IV PRN (05:17)
[2021-06-06 05:18] LABS: Arterial Blood Carboxyhemoglob 2.4 % (0-1.5); Blood Gas Oxyhemoglobin 87.5 % (94-97); Blood O2 Saturation 91.1 % (92-98.5)
[2021-06-06 05:25] LABS: Arterial Blood Carboxyhemoglob 2.4 % (0-1.5); Blood Gas Oxyhemoglobin 88.6 % (94-97); Blood O2 Saturation 92.1 % (92-98.5)
[2021-06-06 05:29] LABS: Arterial Blood Carboxyhemoglob 2.3 % (0-1.5); Blood Gas Oxyhemoglobin 95.4 % (94-97); Blood O2 Saturation 99.2 % (92-98.5)
[2021-06-06] MEDS: INSULIN -REGULAR HUMAN 50 UNIT/0.5 ML ML SQ SCH ×4 (07:30→21:00)
[2021-06-06 07:42] LABS: Albumin 3.2 g/dL (3.4-5.0); Bilirubin Total 0.4 mg/dL (0.2-1.0); Protein, Total 7.5 g/dL (6.4-8.2); Thyroid Stimulating Hormone 0.692 uIU/mL (0.360-3.740); Troponin High Sensitivity 2237.1 pg/mL (<58.9)
[2021-06-06] MEDS: propofoL 1,000 MG/100 ML VIAL IV PRN ×5 (07:44→23:10)
[2021-06-06] MEDS: ARFORMOTEROL TARTRATE 15 MCG/2 ML VIAL.NEB NEB SCH ×2 (08:40→19:50)
[2021-06-06] MEDS: carvediloL 6.25 MG TAB PO SCH ×2 (08:47→21:16)
[2021-06-06] MEDS: CLOPIDOGREL 75 MG TABLET PO SCH (08:47)
[2021-06-06] MEDS: FAMOTIDINE 20 MG/2 ML VIAL IV SCH ×2 (08:48→21:17)
[2021-06-06] MEDS: METHYLPREDNISOLONE 40 MG INJ IV SCH ×2 (08:49→17:15)
[2021-06-06] MEDS ORDERED: ASPIRIN EC 81 MG TAB PO SCH (09:00)
[2021-06-06] MEDS ORDERED: FUROSEMIDE 40 MG/4 ML VIAL IV SCH (09:00)
--- NOTE | 2021-06-06 10:53 | RAD REPORT ---
EXAM DESCRIPTION: CT - Chest For Pe Angio - 06/06/2021 6:11 am CLINICAL HISTORY: SOB COMPARISON: None. TECHNIQUE: CT CHEST ANGIOGRAPHY WITH IV CONTRAST on 06/05/2021 10:21 PM FAMILY LIVING EDUCATOR. MIPS reconstructions were generated. This exam was performed according to our departmental dose-optimization program, which includes autom ated exposure control, adjustment of the mA and/or kV according to patient size and/or use of iterati ve reconstruction technique. MIP images were generated. FINDINGS: Thoracic aorta is normal in course and caliber without aneurysm or dissection. Pulmonary a rteries are suboptimally opacified. There are no large or central filling defects. The heart is borderline in size. Left dual-chamber pacemaker is present. There is no pericardial effu ro. Intrathoracic lymph nodes are not enlarged. There is no pleural effusion, pleural thickening or pneumothorax. Central airways are patent. Lungs a re clear with no consolidation, mass or interstitial lung disease. There are no acute abnormalities within the limited images of the upper abdomen. There are no acute osseous findings. No suspicious bony lesions. IMPRESSION: No aortic dissection or aneurysm. No large or central pulmonary embolus. No pneumonia. Electronically signed by: Jose Wilson MD 06/05/2021 11:57 PM FAMILY LIVING EDUCATOR Due to temporary technical issues with the PACS/Fluency reporting system, reports are being signed by the in house radiologists without review as a courtesy to insure prompt reporting. The interpreting radiologist is fully responsible for the content of the report.
[2021-06-06] MEDS ORDERED: HEPARIN 5000 UNIT/ML 1 ML VIAL IV SCH (11:00)
--- NOTE | 2021-06-06 11:45 | RAD REPORT ---
EXAM DESCRIPTION: RAD - Chest Single View - 06/06/2021 3:49 am CLINICAL HISTORY: Intubation COMPARISON: None. TECHNIQUE: XR CHEST 1 VIEW 06/06/2021 3:37 AM DEVELOPMENT TECHNICAL LEAD FINDINGS: The heart is enlarged. Left dual-chamber pacemaker is present. There are moderate patchy o pacities throughout both lungs. There is no pleural effusion. There is no pneumothorax. There are no acute osseous findings. Endotracheal tube tip is in the midtrachea. IMPRESSION: Bilateral pneumonia. Electronically signed by: Jose Wilson MD 06/06/2021 4:23 AM DEVELOPMENT TECHNICAL LEAD Due to temporary technical issues with the PACS/Fluency reporting system, reports are being signed by the in house radiologist without review as a courtesy to ensure prompt reporting. The interpreting r adiologist is fully responsible for the content of the report.
--- NOTE | 2021-06-06 12:01 | P.CNS ---
Date of Consult: 06/06/21 Reason for Consult: Respiratory failure Primary Care Provider: Unknown Chief Complaint: NSTEMI History of Present Illness: Patient is 51 years of age patient is 51 years of age history of metabolic syndrome admitted with respiratory failure hypoxemia hypercarbia was intubated troponin was very high failed BiPAP is currently stable he was at [facility] a month ago multiple stents placed including a defibrillator Allergies Sulfa (Sulfonamide Antibiotics) Allergy (Verified 05/16/21 21:44) Anaphylaxis Home Medications: Aspirin [Aspirin EC] 81 mg PO DAILY 05/16/21 Atorvastatin Calcium [Lipitor] 80 mg PO BEDTIME 05/16/21 Clopidogrel Bisulfate [Plavix*] 75 mg PO DAILY 05/16/21 Furosemide [Lasix*] 40 mg PO DAILY 05/16/21 Lisinopril [Zestril] 10 mg PO DAILY 05/16/21 Nitroglycerin 0.4 mg SL Q5MX3 PRN 05/16/21 carvediloL [Carvedilol] 6.25 mg PO BID 05/16/21 Cranberry Fruit Extract 400 mg PO DAILY #30 cap 05/24/21 Docusate/Senna [Senokot-S*] 1 tab PO BEDTIME PRN #30 tab 05/24/21 Hydrocodone 5/APAP 325 [[place] 5/325*] 1 tab PO Q8HP PRN tab 05/24/21 Potassium Oral Tab [Klor-Con 10 mEq Tab*] 10 meq PO DAILY #30 tab 05/24/21 Metformin HCl 1 tab PO BID 06/06/21 - Past Medical/Surgical History Diabetic: Yes -: Hepatitis C -: DDD/DJD of the spine -: Chronic pain -: Seizures -: History of Cardiomyopathy, CAD -: HTN -: Hyperlipidemia -: History of CVA -: Anxiety -: Tobacco abuse -: RADHA, COPD -: CAD -: Fusion of C spine -: I/D of the left hand -: Pacemaker/defibrillator -: Cardiac stents Psychosocial/ Personal History: - Social History Smoking Status: Former smoker Alcohol use: Yes CD- Drugs: No Caffeine use: Yes Place of Residence: Home Review of Systems is unable to be obtained Physical Examination Temp Pulse Resp BP Pulse Ox 97.0 F 81 16 100/63 97 06/06/21 08:00 06/06/21 11:00 06/06/21 11:00 06/06/21 11:00 06/06/21 11:00 General: Unresponsive (On propofol) Respiratory: Expiratory wheezes Cardiovascular: Regular rate/rhythm, Normal S1 S2, Edema Gastrointestinal: Normal bowel sounds, Soft and benign Laboratory Data (last 24 hrs) 06/05/21 19:38: PT 11.4, INR 0.99 06/05/21 19:38: WBC 10.20, Hgb 13.8, Hct 43.4, Plt Count 194 06/05/21 19:38: Sodium 140, Potassium 4.3, BUN 11, Creatinine 0.86, Glucose 146 H, Magnesium 1.8, Total Bilirubin 0.1 L, AST 38 H, ALT 58, Alkaline Phosphatase 97 - Problems (1) Respiratory failure with hypoxia and hypercapnia Current Visit: Yes Status: Acute Plan: Patient is 51 patient is 51 years of age admitted with respiratory failure is currently on a ventilator chest x-ray appears to be chest x-ray is clear troponin in the thousands change ventilator settings cardiology consult echocardiogram pending patient is on a heparin drip CT pulmonary angiogram does not show any evidence of pulmonary embolism dissection or pneumonia Qualifiers: Chronicity: acute on chronic Qualified Code(s): J96.21 - Acute and chronic respiratory failure with hypoxia; J96.22 - Acute and chronic respiratory failure with hypercapnia
[2021-06-06 12:20] LABS: Magnesium 1.8
--- NOTE | 2021-06-06 13:04 | EKG ---
Test Date: 2021-06-05 Test Time: 23:26:16 Supervisor Remelt: Fermin CHRISTOPHER MEASUREMENT RESULTS: Intervals: Rate: 104 OK: 148 QRSD: 96 QT: 346 QTc: 454 [place]: P: 73 OK: 148 QRS: 108 T: 60 INTERPRETIVE STATEMENTS: Sinus tachycardia Low voltage QRS Possible Anterolateral infarct, age undetermined Abnormal ECG Compared to ECG 06/05/2021 22:24:40 Low QRS voltage now present Sinus rhythm no longer present Myocardial infarct finding still present Electronically Signed On 06-06-21 13:02:55 BUSINESS DEVELOPMENT ENGINEER by Baldo Blake
--- NOTE | 2021-06-06 13:04 | EKG ---
Test Date: 2021-06-05 Test Time: 22:24:40 Gray Mixing Operator: Fermin CHRISTOPHER MEASUREMENT RESULTS: Intervals: Rate: 100 IL: 150 QRSD: 104 QT: 348 QTc: 448 [place]: P: 69 IL: 150 QRS: 108 T: 49 INTERPRETIVE STATEMENTS: Normal sinus rhythm Anterolateral infarct, age undetermined Abnormal ECG Compared to ECG 06/05/2021 19:18:29 No significant changes Electronically Signed On 06-06-21 13:02:58 COMEDIAN by Baldo Blake
--- NOTE | 2021-06-06 13:05 | EKG ---
Test Date: 2021-06-05 Test Time: 19:18:29 Stranner: ALURENCE MEASUREMENT RESULTS: Intervals: Rate: 75 [place]: 148 QRSD: 102 QT: 384 QTc: 428 [place]: P: 69 WA: 148 QRS: 108 T: 69 INTERPRETIVE STATEMENTS: Normal sinus rhythm Anterolateral infarct, age undetermined Abnormal ECG Compared to ECG 05/23/2021 09:09:53 Myocardial infarct finding now present Right-axis deviation no longer present Electronically Signed On 06-06-21 13:03:04 ZIPPER SETTER by Baldo Blake
[2021-06-06] MEDS: IPRATROPIUM BROM 0.5MG/2.5ML IH SCH ×2 (14:10→19:50)
--- NOTE | 2021-06-06 14:13 | ECHO ---
HEIGHT: 5 ft 6 in WEIGHT: 315 lb 0 oz DATE OF STUDY: 06/06/[address]: Yony Harley NP 2-DIMENSIONAL: YES M.MODE: YES DOPPLER: YES COLOR FLOW: YES TDS: PORTABLE: YES DEFINITY: BUBBLE STUDY: DIAGNOSIS: NON ST ELEVATION MYOCARDIAL INFARCTION/ CONGESTIVE HEART FAILURE CARDIAC HISTORY: CATHERIZATION: SURGERY: PROSTHETIC VALVE: PACEMAKER: MEASUREMENTS (cm) DIASTOLIC (NORMALS) SYSTOLIC (NORMALS) IVSd 1.3 (0.6-1.2) LA Diam 3.2 (1.9-4.0) LVEF 55% LVIDd 4.2 (3.5-5.7) LVIDs 3.0 (2.0-3.5) %FS 28% LVPWd 1.3 (0.6-1.2) Ao Diam 2.7 (2.0-3.7) 2 DIMENSIONAL ASSESSMENT: RIGHT ATRIUM: NORMAL LEFT ATRIUM: NORMAL RIGHT VENTRICLE: NORMAL LEFT VENTRICLE: LEFT VENTRICULAR HYPERTROPHY TRICUSPID VALVE: NORMAL MITRAL VALVE: NORMAL PULMONIC VALVE: NORMAL AORTIC VALVE: NORMAL PERICARDIAL EFFUSION: NONE AORTIC ROOT: NORMAL LEFT VENTRICULAR WALL MOTION: NORMAL EJECTION FRACTION. DOPPLER/COLOR FLOW: DECREASED LEFT VENTRICULAR COMPLIANCE. COMMENTS: DECREASED LEFT VENTRICULAR COMPLIANCE. NORMAL EJECTION FRACTION. LEFT VENTRICULAR COMPLIANCE. TECHNOLOGIST: TAMIKA PEREZ
[2021-06-06 14:42] LABS: Arterial Blood Carboxyhemoglob 1.5 % (0-1.5); Blood O2 Saturation 90.6 % (92-98.5)
[2021-06-06] MEDS: ATORVASTATIN 40 MG TAB PO SCH (21:16)
[2021-06-07] MEDS: propofoL 1,000 MG/100 ML VIAL IV PRN ×8 (01:00→22:05)
[2021-06-07] MEDS: METHYLPREDNISOLONE 40 MG INJ IV SCH ×3 (01:07→19:55)
[2021-06-07] MEDS: FENTANYL CITR 100 MCG/2 ML IV PRN ×2 (02:00→22:10)
[2021-06-07] MEDS: IPRATROPIUM BROM 0.5MG/2.5ML IH SCH ×4 (02:08→20:00)
[2021-06-07 05:07] LABS: Hematocrit 42.7 % (39.6-49.0); Lymphocytes % 4.4 % (15.3-44.8); MPV 9.5 fL (7.6-11.3); RBC Red Blood Cell Count 4.72 M/uL (4.33-5.43)
[2021-06-07 05:28] LABS: Blood O2 Saturation 94.3 % (92-98.5)
[2021-06-07 05:29] LABS: Arterial Blood Carboxyhemoglob 1.1 % (0-1.5)
[2021-06-07 05:45] LABS: Albumin 3.3 g/dL (3.4-5.0); Bilirubin Total 0.5 mg/dL (0.2-1.0); Potassium 3.5 mmol/L (3.5-5.1); Protein, Total 7.8 g/dL (6.4-8.2)
--- NOTE | 2021-06-07 06:10 | P.PN ---
Date of Service: 06/07/21 Subjective: Patient's white count up to 22,000 this morning, FiO2 down to 50% Concern for bacterial superinfection, started on Zosyn this morning ROS: Unable to be obtained, intubated/sedated Physical exam GEN: Intubated, sedated HEENT: Normal conjunctiva, sclera anicteric CV: Regular rate and rhythm, 1+edema b/l extremities Pulm: ETT in place, on mech vent ABD: Soft, nondistended Integumentary: No rashes Neuro: Normal speech, normal affect Problem List NSTEMI with history of CAD S/P pacemaker/defibrillator placement Acute on chronic hypercapnic respiratory failure secondary to RADHA/COPD Leukocytosis Diabetes type 2 fbm-pkldzkd-mcboziuro Hypertension Hyperlipidemia NSTEMI with history of CAD S/P pacemaker/defibrillator placement: Patient on heparin drip at this time Troponin downtrended Cardiology consulted - no immediate plans for cardiac cath echo ordered -decreased LV compliance, no new wall motion abnormalities Acute on chronic hypercapnic respiratory failure secondary to RADHA/COPD: Patient was intubated shortly after admission due to becoming less responsive, ABG significant hypercarbia ABG / CO2 improving, remains on mechanical ventilation, FiO2: 50% Pulmonology consulted Decrease steroid dosage Leukocytosis WBC > 20 now, possibly from steroids Possible infection, Zosyn started 2/3, cultures obtained afebrile DM2, insulind-dependent: ACH S Accu-Chek, sliding scale insulin. Hypertension: Continue carvedilol Hyperlipidemia: Continue medications. VTE: Heparin drip Code: full Dispo: continue ICU level of care, hospitalization > 2 days
[2021-06-07] MEDS: LORazepam 2 MG/ML VIAL IV PRN ×2 (06:58→19:55)
[2021-06-07] MEDS: INSULIN -REGULAR HUMAN 50 UNIT/0.5 ML ML SQ SCH ×3 (07:30→16:16)
[2021-06-07] MEDS: ARFORMOTEROL TARTRATE 15 MCG/2 ML VIAL.NEB NEB SCH ×2 (07:49→20:00)
--- NOTE | 2021-06-07 07:58 | RAD REPORT ---
EXAM DESCRIPTION: Kiki Single View06/07/2021 6:08 am CLINICAL HISTORY: Chest pain COMPARISON: June 06, 2021 FINDINGS: Mild bilateral pulmonary opacities unchanged Mild cardiomegaly Tubes in good position IMPRESSION: No change in the mild bilateral pulmonary opacities which may represent pulmonary edema or pneumonia
[2021-06-07 08:07] LABS: Platelet Estimate ADEQ
[2021-06-07 08:08] LABS: Blood Morphology Comment NOT SEEN (NOT SEEN)
[2021-06-07] MEDS: PIPER TAZO 3.375 GM in NA CHLORIDE 0.9% 100 ML IV SCH ×2 (08:10→16:16)
[2021-06-07] MEDS: ASPIRIN 81 MG CHEWABLE TABLET PO SCH (08:11)
[2021-06-07] MEDS: FAMOTIDINE 20 MG/2 ML VIAL IV SCH ×2 (08:11→19:55)
[2021-06-07] MEDS: FUROSEMIDE 40 MG/4 ML VIAL IV SCH (08:11)
[2021-06-07] MEDS: CLOPIDOGREL 75 MG TABLET PO SCH (08:11)
[2021-06-07] MEDS: carvediloL 6.25 MG TAB PO SCH ×2 (08:11→19:56)
--- NOTE | 2021-06-07 12:03 | P.PN ---
Subjective Date of Service: 06/07/21 Primary Care Provider: Unknown Chief Complaint: Respiratory failure Patient is currently patient is currently on a ventilator requiring propofol agitated oxygenation satisfactory Review of Systems is unable to be obtained Physical Examination - Vital Signs Temperature: 99.0 F Blood Pressure: 128/81 Pulse: 94 Respirations: 18 Pulse Ox (%): 95 - Physical Exam General: Unresponsive Neck: Supple Respiratory: Expiratory wheezes Cardiovascular: Regular rate/rhythm, Edema Assessment And Plan - Current Problems (Diagnosis) (1) Respiratory failure with hypoxia and hypercapnia Current Visit: Yes Status: Acute Plan: Respiratory failure oxygenation satisfactory oxygenation satisfactory white count is elevated blood cultures pending/chest x-ray shows some hazy chest x-ray shows some haziness on the right side echocardiogram reduced left ventricular compliance we will try and wean the patient from the ventilator is on Lasix once a day/vent settings reviewed on FiO2 50%/oxygenation satisfactory oxygenation satisfactory mild hypercarbia Qualifiers: Chronicity: acute on chronic Qualified Code(s): J96.21 - Acute and chronic respiratory failure with hypoxia; J96.22 - Acute and chronic respiratory failure with hypercapnia
[2021-06-07 14:40] LABS: Arterial Blood Carboxyhemoglob 1.1 % (0-1.5); Blood Gas Oxyhemoglobin 89.3 % (94-97); Blood O2 Saturation 91.4 % (92-98.5)
[2021-06-07 16:17] LABS: Magnesium 1.6
[2021-06-07] MEDS: ATORVASTATIN 40 MG TAB PO SCH (19:56)
[2021-06-08] MEDS: PIPER TAZO 3.375 GM in NA CHLORIDE 0.9% 100 ML IV SCH ×2 (00:10→08:53)
[2021-06-08] MEDS: propofoL 1,000 MG/100 ML VIAL IV PRN ×6 (00:10→23:37)
[2021-06-08 00:43] LABS: Urine Appearance CLEAR (Clear); Urine Bilirubin NEGATIVE (Negative); Urine Blood NEGATIVE (Negative); Urine Color YELLOW (Yellow); Urine Glucose NEGATIVE (Negative); Urine Microscopic Reflex NO UMIC; Urine Protein NEGATIVE (Negative); Urine pH 7.5 (5.0-7.0)
[2021-06-08] MEDS: LORazepam 2 MG/ML VIAL IV PRN ×5 (00:59→17:25)
[2021-06-08] MEDS: IPRATROPIUM BROM 0.5MG/2.5ML IH SCH ×4 (02:20→19:09)
[2021-06-08 05:28] LABS: Absolute Lymphocytes (CBC) 1.2 K/uL (0.7-4.9); Hematocrit 40.8 % (39.6-49.0); Lymphocytes % 5.5 % (15.3-44.8); MPV 9.8 fL (7.6-11.3); RBC Red Blood Cell Count 4.53 M/uL (4.33-5.43)
[2021-06-08] MEDS: INSULIN -REGULAR HUMAN 50 UNIT/0.5 ML ML SQ SCH ×4 (05:28→17:26)
--- NOTE | 2021-06-08 06:01 | P.PN ---
Date of Service: 06/08/21 Subjective: Nursing staff reports some increased upper airway secretions Continues on 50% FiO2 on BiPAP White count remains elevated ROS: Unable to be obtained, intubated/sedated Physical exam GEN: Intubated, sedated HEENT: Normal conjunctiva, sclera anicteric CV: Regular rate and rhythm, 1+edema b/l extremities Pulm: ETT in place, on mech vent ABD: Soft, nondistended Integumentary: No rashes Neuro: Normal speech, normal affect Problem List NSTEMI with history of CAD S/P pacemaker/defibrillator placement Acute on chronic hypercapnic respiratory failure secondary to RADHA/COPD Leukocytosis Diabetes type 2 cju-bagxdhp-istkcuirs Hypertension Hyperlipidemia NSTEMI with history of CAD S/P pacemaker/defibrillator placement: Troponin downtrended Cardiology consulted - no immediate plans for cardiac cath, okay to discontinue heparin drip on 06/08 echo ordered -decreased LV compliance, no new wall motion abnormalities Acute on chronic hypercapnic respiratory failure secondary to RADHA/COPD: Patient was intubated shortly after admission due to becoming less responsive, ABG significant hypercarbia ABG / CO2 improving, remains on mechanical ventilation, FiO2: 50% Pulmonology consulted Decrease steroid dose on 2/3 Wean oxygen as tolerated Remains on mechanical ventilation, dietitian consulted to initiate tube feeds Leukocytosis WBC > 20 now, possibly from steroids Possible infection, Zosyn started 2/, cultures obtained Blood cultures gram-positive cocci, will change to Vanco and cefepime for MRSA coverage DM2, insulind-dependent: ACH S Accu-Chek, sliding scale insulin. Hypertension: Continue carvedilol Hyperlipidemia: Continue medications. VTE: Lovenox prophylaxis Code: full Dispo: continue ICU level of care, hospitalization > 2 days
[2021-06-08 06:04] LABS: Arterial Blood Carboxyhemoglob 0.5 % (0-1.5); Blood Gas Oxyhemoglobin 91.6 % (94-97); Blood O2 Saturation 93.9 % (92-98.5)
[2021-06-08 06:57] LABS: Albumin 2.9 g/dL (3.4-5.0); Bilirubin Total 0.5 mg/dL (0.2-1.0); Phosphorus 3.9 mg/dL (2.5-4.9); Potassium 3.3 mmol/L (3.5-5.1); Protein, Total 7.4 g/dL (6.4-8.2)
--- NOTE | 2021-06-08 07:40 | RAD REPORT ---
EXAM DESCRIPTION: RAD - Chest Single View - 06/08/2021 5:59 am CLINICAL HISTORY: vented COMPARISON: Chest Single View dated 06/07/2021; Chest Single View dated 06/06/2021; Chest Single View da clarita 06/05/2021; CHEST SINGLE VIEW dated 10/22/2013; Chest For Pe Angio dated 06/05/2021 FINDINGS: Lines: Endotracheal tube terminates at the aortic arch. NG tube below the diaphragm Lungs: No evidence of edema or pneumonia. Improved aeration compared with 06/07/2021. Pleural: Blunting of left costophrenic angle. Cardiac: The heart size is within normal limits. Bones: No acute fractures. Other: IMPRESSION: Lung aeration has improved. No definite acute process identified.
[2021-06-08] MEDS: ARFORMOTEROL TARTRATE 15 MCG/2 ML VIAL.NEB NEB SCH ×2 (08:32→19:09)
[2021-06-08] MEDS: ASPIRIN 81 MG CHEWABLE TABLET PO SCH (08:53)
[2021-06-08] MEDS: CLOPIDOGREL 75 MG TABLET PO SCH (08:53)
[2021-06-08] MEDS: FUROSEMIDE 40 MG/4 ML VIAL IV SCH (08:53)
[2021-06-08] MEDS: carvediloL 6.25 MG TAB PO SCH ×2 (08:53→19:58)
[2021-06-08] MEDS: FAMOTIDINE 20 MG/2 ML VIAL IV SCH ×2 (08:53→19:58)
[2021-06-08] MEDS: METHYLPREDNISOLONE 40 MG INJ IV SCH ×2 (08:54→19:58)
[2021-06-08] MEDS ORDERED: VITAL HP 1,000 ML BOT RTH SCH (12:00)
--- NOTE | 2021-06-08 12:39 | P.PN ---
Subjective Date of Service: 06/08/21 Primary Care Provider: Unknown Chief Complaint: Respiratory failure Patient is currently on a propofol drip has copious amounts of secretions otherwise oxygenation is stable Review of Systems is unable to be obtained Physical Examination - Vital Signs Temperature: 99.7 F Blood Pressure: 151/100 Pulse: 85 Respirations: 15 Pulse Ox (%): 100 - Physical Exam General: Unresponsive Respiratory: Clear to auscultation bilaterally, Diminished Cardiovascular: No edema, Normal S1 S2 Assessment And Plan - Current Problems (Diagnosis) (1) Respiratory failure with hypoxia and hypercapnia Current Visit: Yes Status: Acute Plan: Respiratory failure trial off dexmedetomidine wean off propofol agree with sputum cultures patient is on Zosyn white count elevated labs so far satisfactory left ventricular compliance is reduced chest x-ray clear endotrach eal tube satisfactory hopefully will be able to wean him off Qualifiers: Chronicity: acute on chronic Qualified Code(s): J96.21 - Acute and chronic respiratory failure with hypoxia; J96.22 - Acute and chronic respiratory failure with hypercapnia
[2021-06-08] MEDS ORDERED: DEXMEDETOMIDINE HCL 200 MCG in NA CHLORIDE 0.9% 98 ML IV SCH (14:00)
[2021-06-08] MEDS: VANCOMYCIN 2 GM in NA CHLORIDE 0.9% 500 ML IVPB SCH (14:23)
[2021-06-08 15:32] LABS: Magnesium 1.7
[2021-06-08] MEDS ORDERED: NA CHLORIDE 0.9% 490 ML with DEXMEDETOMIDINE HCL 1,000 MCG IV SCH ×2 (17:00)
[2021-06-08] MEDS ORDERED: HYDROMORPHONE HCL 2 MG/ML inj IM PRN (17:16)
[2021-06-08] MEDS: FENTANYL CITR 100 MCG/2 ML IV PRN (17:25)
[2021-06-08] MEDS: CEFEPIME 2 GM in NA CHLORIDE 0.9% 100 ML IV SCH (17:25)
[2021-06-08] MEDS ORDERED: propofoL 1,000 MG/100 ML VIAL IV SCH ×2 (18:00→20:00)
[2021-06-08] MEDS ORDERED: NA CHLORIDE 0.9% 490 ML with DEXMEDETOMIDINE HCL 1,000 MCG IV PRN ×2 (18:49)
[2021-06-08] MEDS: HYDROMORPHONE HCL 2 MG/ML inj IV PRN (19:15)
[2021-06-08] MEDS: ATORVASTATIN 40 MG TAB PO SCH (19:57)
[2021-06-08] MEDS ORDERED: POTASSIUM 25 MEQ EFFERV TAB PO ONE (21:22)
[2021-06-08] MEDS ORDERED: MAGNESIUM SULFATE 1 gm IVPB 1 GM/100 ML BAG IV ONE (21:23)
[2021-06-09] MEDS: CEFEPIME 2 GM in NA CHLORIDE 0.9% 100 ML IV SCH ×3 (00:06→17:03)
[2021-06-09] MEDS: HYDROMORPHONE HCL 2 MG/ML inj IV PRN ×4 (00:06→23:50)
[2021-06-09] MEDS: INSULIN -REGULAR HUMAN 50 UNIT/0.5 ML ML SQ SCH ×4 (00:07→18:00)
[2021-06-09] MEDS: IPRATROPIUM BROM 0.5MG/2.5ML IH SCH ×4 (00:58→19:47)
[2021-06-09] MEDS: VANCOMYCIN 2 GM in NA CHLORIDE 0.9% 500 ML IVPB SCH ×2 (01:16→14:18)
[2021-06-09] MEDS: propofoL 1,000 MG/100 ML VIAL IV PRN ×6 (03:14→20:07)
[2021-06-09] MEDS: LORazepam 2 MG/ML VIAL IV PRN ×2 (03:15→19:05)
[2021-06-09 05:09] LABS: Absolute Lymphocytes (CBC) 1.3 K/uL (0.7-4.9); Hematocrit 40.1 % (39.6-49.0); Lymphocytes % 6.5 % (15.3-44.8); MPV 9.8 fL (7.6-11.3); RBC Red Blood Cell Count 4.43 M/uL (4.33-5.43)
[2021-06-09 05:56] LABS: Blood Gas Oxyhemoglobin 90.6 % (94-97); Blood O2 Saturation 92.5 % (92-98.5)
[2021-06-09 05:57] LABS: Arterial Blood Carboxyhemoglob 0.9 % (0-1.5)
--- NOTE | 2021-06-09 06:01 | P.PN ---
Date of Service: 06/09/21 Subjective: Precedex switched back to propofol, patient agitated more relaxed now Tenuous with lots of secretions FiO2 down to 45% Gram-negative rods growing in sputum culture ROS: Unable to be obtained, intubated/sedated Physical exam GEN: Intubated, sedated HEENT: Normal conjunctiva, sclera anicteric CV: Regular rate and rhythm, trace bilateral pedal edema Pulm: ETT in place, on mech vent ABD: Soft, nondistended Integumentary: No rashes Neuro: Intubated/sedated. Moves extremities. Problem List NSTEMI with history of CAD S/P pacemaker/defibrillator placement Acute on chronic hypercapnic respiratory failure secondary to RADHA/COPD Leukocytosis Diabetes type 2 vdi-ncokimu-igtfdorda Hypertension Hyperlipidemia NSTEMI with history of CAD S/P pacemaker/defibrillator placement: Troponin downtrended Cardiology consulted - no immediate plans for cardiac cath, okay to discontinue heparin drip on 06/08 echo ordered -decreased LV compliance, no new wall motion abnormalities Acute on chronic hypercapnic respiratory failure secondary to RADHA/COPD: Patient was intubated shortly after admission due to becoming less responsive, ABG significant hypercarbia ABG / CO2 improving, remains on mechanical ventilation, FiO2: 50% Pulmonology consulted Decreased steroid dose on 06/07 Wean oxygen as tolerated Remains on mechanical ventilation, tube feed started 06/08 add scopolamine for secretions Leukocytosis WBC > 20, steroids vs sepsis Possible infection, Zosyn started 06/07, cultures obtained Blood cultures gram-positive cocci, changed to Vanco and cefepime for MRSA coverage on 06/08 GNR growing in sputum DM2, insulind-dependent: ACH S Accu-Chek, sliding scale insulin. Hypertension: Continue carvedilol Hyperlipidemia: Continue medications. VTE: Lovenox prophylaxis Code: full Dispo: continue ICU level of care, hospitalization > 2 days
[2021-06-09 06:32] LABS: Albumin 2.7 g/dL (3.4-5.0); Bilirubin Total 0.4 mg/dL (0.2-1.0); Potassium 3.8 mmol/L (3.5-5.1); Protein, Total 7.1 g/dL (6.4-8.2)
[2021-06-09] MEDS: ARFORMOTEROL TARTRATE 15 MCG/2 ML VIAL.NEB NEB SCH ×2 (08:30→19:47)
[2021-06-09] MEDS ORDERED: POTASSIUM 25 MEQ EFFERV TAB PO ONE (09:00)
--- NOTE | 2021-06-09 09:14 | RAD REPORT ---
EXAM DESCRIPTION: Kiki Single View06/09/2021 7:08 am CLINICAL HISTORY: Chest pain COMPARISON: June 08 2021 FINDINGS: Left base is hazy. Brain lungs appear grossly clear. Heart is mildly enlarged. Endotracheal tube overlies the aortic arch. Orogastric tube within stomach IMPRESSION: Left base is hazy which could represent a small left pleural effusion, infiltrate or ate lectasis
[2021-06-09] MEDS: ENOXAPARIN 40 MG/0.4 ML SQ SCH (09:28)
[2021-06-09] MEDS: ASPIRIN 81 MG CHEWABLE TABLET PO SCH (09:28)
[2021-06-09] MEDS: carvediloL 6.25 MG TAB PO SCH ×2 (09:29→20:10)
[2021-06-09] MEDS: METHYLPREDNISOLONE 40 MG INJ IV SCH ×2 (09:29→20:08)
[2021-06-09] MEDS: FUROSEMIDE 40 MG/4 ML VIAL IV SCH (09:29)
[2021-06-09] MEDS: CLOPIDOGREL 75 MG TABLET PO SCH (09:29)
[2021-06-09] MEDS: FAMOTIDINE 20 MG/2 ML VIAL IV SCH ×2 (09:30→20:08)
[2021-06-09] MEDS: FENTANYL CITR 100 MCG/2 ML IV PRN (10:12)
[2021-06-09] MEDS ORDERED: FENTANYL CITR 100 MCG/2 ML IV PRN (10:14)
--- NOTE | 2021-06-09 11:38 | P.PN ---
Subjective Date of Service: 06/09/21 Primary Care Provider: Unknown Chief Complaint: Respiratory failure Patient has copious amounts of secretion still on propofol did not tolerate dexmedetomidine patient is on FiO2 45% Review of Systems is unable to be obtained Physical Examination - Vital Signs Temperature: 97.4 F Blood Pressure: 101/66 Pulse: 62 Respirations: 18 Pulse Ox (%): 92 - Physical Exam General: Unresponsive Respiratory: Clear to auscultation bilaterally, Diminished Cardiovascular: No edema, Normal pulses Assessment And Plan - Current Problems (Diagnosis) (1) Respiratory failure with hypoxia and hypercapnia Current Visit: Yes Status: Acute Plan: Patient admitted with respiratory failure has copious secretions sputum shows 4+ gram-negative rods agree with cefepime continue with vancomycin for now white count is elevated probably has bronchitis. White count is declining very to scopolamine patch chest x-ray is clear endotracheal tube satisfactory vital signs stable Qualifiers: Chronicity: acute on chronic Qualified Code(s): J96.21 - Acute and chronic respiratory failure with hypoxia; J96.22 - Acute and chronic respiratory failure with hypercapnia
[2021-06-09] MEDS: SCOPOLAMINE HYDROBROMIDE PATCH TD SCH (13:46)
[2021-06-09 14:12] LABS: Magnesium 2.2
--- NOTE | 2021-06-09 14:58 | PN ---
Date of Progress Note: 06/07/2021 Mr. Duarte was admitted with respiratory failure, elevated troponin. Has a history of CAD, pacemaker , hypertension, dyslipidemia. His troponin was elevated, which I thought was secondary to demand isc hemia. Echocardiogram which was done showed an ejection fraction of 55% with decreased left ventricu lar compliance, but no wall motion abnormalities. Otherwise, no effusion. I believe he is dealing m ore with COPD exacerbation rather than congestive heart failure. I think the troponin is secondary t o demand ischemia. Continue his present regimen. Continue following up with Dr. Panda. I will b e available for questions if the need arises. If he improves once he gets discharged, I will make a plan for him to have an outpatient stress test. GAVI/VIKTOR Voice ID: [id number] Report ID: [id number]
[2021-06-09] MEDS: ATORVASTATIN 40 MG TAB PO SCH (20:09)
--- NOTE | 2021-06-09 20:31 | CON ---
Date of Consultation: 06/06/[address] Mckenna on 06/06/2021. I saw the patient on 06/06/2021. Reason For Consultation: Elevated troponin. History Of Present Illness: Mr. Duarte is a 51-year-old male with a history of severe COPD, came in basically with respiratory failure, requiring intubation. No chest pain reported. Denied by family of any PND, orthopnea, pedal edema, palpitation, syncope, fever, or chills. Past Medical History: Includes COPD, diabetes, coronary artery disease, pacemaker, asthma, hypertens ion, hypercholesterolemia. Allergies: HE IS ALLERGIC TO PENICILLIN AND SULFA. Review of Systems: Negative. Social History: Positive for history of tobacco use. Medications: At home, include aspirin, Lipitor, Plavix, Lasix, lisinopril, metformin, carvedilol. Physical Examination: Vital Signs: His blood pressure was 147/81, his pulse was 86. He was in mechanical ventilation. HEENT: Negative. Neck: Supple. No bruit. Chest: Clear, overall, except for expiratory wheezing. No rales. Cardiac: Exam revealed a regular rhythm and rate. No murmurs, gallops or rubs. Abdomen: Benign. Extremities: Revealed no clubbing, cyanosis, or edema. Diagnostic Data: His chest x-ray was negative. His EKG showed possible old anteroseptal infarct. C TA of the chest revealed no embolus, no dissection or aneurysm. Consultation by Dr. Panda. Patie nt was placed on heparin drip. Impression was COPD exacerbation. His white count was 22,000. His c reatinine was normal. Glucose was 106. His troponin was elevated. Impression And Plan: 1.Acute on chronic chronic obstructive pulmonary disease exacerbation with respiratory failure, requ iring intubation. 2.Elevated troponin, possibly demand ischemia. Echocardiogram is pending. 3.Coronary artery disease. 4.History of pacemaker. 5.Dyslipidemia. 6.Gastroesophageal reflux disease. 7.Diabetes. 8.Elevated white count. 9.Hypertension. Patient is presently on inhalers, aspirin, Plavix, Lipitor, Diprivan, Lovenox, Lasix, heparin drip, i nsulin, antibiotics, as well as, steroids and carvedilol. We will see what the echocardiogram shows, but I doubt we are dealing with CHF. His chest x-ray does not show any volume overload. I think th ere may be some component of sepsis going on with his elevated white count. I will discuss the case further with Dr. Panda and admitting physician after the echo. GAVI/VIKTOR Voice ID: [id number] Report ID: [id number]
[2021-06-10] MEDS: propofoL 1,000 MG/100 ML VIAL IV PRN ×9 (00:06→21:34)
[2021-06-10] MEDS: CEFEPIME 2 GM in NA CHLORIDE 0.9% 100 ML IV SCH ×3 (00:18→16:06)
[2021-06-10] MEDS: LORazepam 2 MG/ML VIAL IV PRN ×2 (00:34→02:40)
[2021-06-10] MEDS: VANCOMYCIN 2 GM in NA CHLORIDE 0.9% 500 ML IVPB SCH ×2 (02:41→14:36)
[2021-06-10] MEDS: IPRATROPIUM BROM 0.5MG/2.5ML IH SCH ×4 (03:38→19:29)
[2021-06-10 05:27] LABS: Hematocrit 39.1 % (39.6-49.0); MPV 9.6 fL (7.6-11.3); RBC Red Blood Cell Count 4.28 M/uL (4.33-5.43)
[2021-06-10] MEDS: INSULIN -REGULAR HUMAN 50 UNIT/0.5 ML ML SQ SCH ×4 (05:35→18:00)
[2021-06-10] MEDS: HYDROMORPHONE HCL 2 MG/ML inj IV PRN (05:41)
--- NOTE | 2021-06-10 05:55 | P.PN ---
Date of Service: 06/10/21 Subjective: no acute events overnight remains on mech vent. Nursing reports continues with copious upper airway secretions afebrile on antibiotics/tube feeds. no BM ROS: Unable to be obtained, intubated/sedated Physical exam GEN: Intubated, sedated HEENT: Normal conjunctiva, sclera anicteric CV: Regular rate and rhythm, trace bilateral pedal edema Pulm: ETT in place, on mech vent ABD: Soft, nondistended Integumentary: No rashes Neuro: Intubated/sedated. Moves extremities when sedation wears off cohen in place Problem List NSTEMI with history of CAD S/P pacemaker/defibrillator placement Acute on chronic hypercapnic respiratory failure secondary to RADHA/COPD Leukocytosis Diabetes type 2 atd-ikbbtrh-iqbthtgck Hypertension Hyperlipidemia NSTEMI with history of CAD S/P pacemaker/defibrillator placement: Troponin downtrended Cardiology consulted - no immediate plans for cardiac cath, okay to discontinue heparin drip on 06/08 echo ordered -decreased LV compliance, no new wall motion abnormalities Acute on chronic hypercapnic respiratory failure secondary to RADHA/COPD: Patient was intubated shortly after admission due to becoming less responsive, ABG significant hypercarbia ABG / CO2 improving, remains on mechanical ventilation, FiO2: 50% Pulmonology consulted Decreased steroid dose on 06/07 Wean oxygen as tolerated Remains on mechanical ventilation, tube feeds started 06/08 added scopolamine for secretions on 06/09 sputum culture: GNR extubate once weaned further and less secretions Leukocytosis WBC > 20, multifactorial steroids vs infection Possible infection, Zosyn started 06/07, cultures obtained Blood cultures gram-positive cocci, changed to Vanco and cefepime for MRSA coverage on 06/08 GNR growing in sputum DM2, insulind-dependent: ACH S Accu-Chek, sliding scale insulin. Hypertension: Continue carvedilol Hyperlipidemia: Continue medications. VTE: Lovenox prophylaxis Code: full Dispo: continue ICU level of care, hospitalization > 2 days
[2021-06-10] MEDS: HALOPERIDOL LACT 5 MG/ML INJ IV PRN (06:00)
[2021-06-10 06:05] LABS: Arterial Blood Carboxyhemoglob 0.9 % (0-1.5); Blood Gas Oxyhemoglobin 90.2 % (94-97); Blood O2 Saturation 92.1 % (92-98.5)
[2021-06-10] MEDS ORDERED: POLYETHYL GLY 3350 17 GM/DOSE PO ONE (07:25)
[2021-06-10 07:39] LABS: BUN Blood Urea Nitrogen 40 mg/dL (7-18); Bicarbonate 31 mmol/L (21-32); Glucose Level 181 mg/dL (74-106); Potassium 4.3 mmol/L (3.5-5.1); Sodium Level 137 mmol/L (136-145)
[2021-06-10] MEDS: ARFORMOTEROL TARTRATE 15 MCG/2 ML VIAL.NEB NEB SCH ×2 (08:13→19:29)
[2021-06-10] MEDS: CLOPIDOGREL 75 MG TABLET PO SCH (09:16)
[2021-06-10] MEDS: ASPIRIN 81 MG CHEWABLE TABLET PO SCH (09:16)
[2021-06-10] MEDS: carvediloL 6.25 MG TAB PO SCH ×2 (09:16→20:06)
[2021-06-10] MEDS: DOCUSATE NA 100 MG CAP PO SCH ×2 (09:16→20:06)
[2021-06-10] MEDS: FAMOTIDINE 20 MG/2 ML VIAL IV SCH ×2 (09:17→20:07)
[2021-06-10] MEDS: FUROSEMIDE 40 MG/4 ML VIAL IV SCH (09:17)
[2021-06-10] MEDS: METHYLPREDNISOLONE 40 MG INJ IV SCH ×2 (09:17→20:07)
[2021-06-10] MEDS: ENOXAPARIN 40 MG/0.4 ML SQ SCH (09:17)
--- NOTE | 2021-06-10 10:39 | P.PN ---
Subjective Date of Service: 06/10/21 Primary Care Provider: Unknown Chief Complaint: Respiratory failure Patient still has copious patient still has copious secretions sputum cultures show E. coli hemodynamically stable Review of Systems is unable to be obtained Physical Examination - Vital Signs Temperature: 97.9 F Blood Pressure: 136/83 Pulse: 69 Respirations: 16 Pulse Ox (%): 94 - Physical Exam General: Unresponsive Respiratory: Clear to auscultation bilaterally, Diminished, Friction rub Cardiovascular: Regular rate/rhythm Assessment And Plan - Current Problems (Diagnosis) (1) Respiratory failure with hypoxia and hypercapnia Current Visit: Yes Status: Acute Plan: Respiratory failure respiratory failure with possible bronchitis E. coli isolated from the sputum will repeat E. coli sensitive patient is hypoxic patient is hypoxic hypercapnic/repeat sputum culture repeat sputum cultures Qualifiers: Chronicity: acute on chronic Qualified Code(s): J96.21 - Acute and chronic respiratory failure with hypoxia; J96.22 - Acute and chronic respiratory failure with hypercapnia
--- NOTE | 2021-06-10 11:09 | RAD REPORT ---
EXAM DESCRIPTION: RAD - Chest Single View - 06/10/2021 6:47 am CLINICAL HISTORY: intubated Chest pain. COMPARISON: Chest Single View dated 06/09/2021; Chest Single View dated 06/08/2021; Chest Single View da clarita 06/07/2021; Chest Single View dated 06/06/2021 FINDINGS: Portable technique limits examination quality. Tip of the endotracheal tube is at the level of the superior aortic arch. Mild asymmetric interstitia l lung opacities probably represent mild pulmonary edema. The heart is moderately prominent with mult ilead pacer device.Enteric tube descends into the stomach.
[2021-06-10] MEDS: HYDROMORPHONE HCL 1 MG/ML INJ IV PRN ×3 (12:12→19:40)
[2021-06-10 16:19] LABS: Magnesium 2.2
[2021-06-10] MEDS: ATORVASTATIN 40 MG TAB PO SCH (20:06)
[2021-06-11] MEDS: propofoL 1,000 MG/100 ML VIAL IV PRN ×10 (00:14→22:50)
[2021-06-11] MEDS: HYDROMORPHONE HCL 1 MG/ML INJ IV PRN ×4 (00:14→23:40)
[2021-06-11] MEDS: CEFEPIME 2 GM in NA CHLORIDE 0.9% 100 ML IV SCH ×3 (01:49→17:06)
[2021-06-11] MEDS: IPRATROPIUM BROM 0.5MG/2.5ML IH SCH ×4 (01:53→19:23)
[2021-06-11] MEDS: VANCOMYCIN 2 GM in NA CHLORIDE 0.9% 500 ML IVPB SCH ×2 (02:25→15:04)
[2021-06-11 05:16] LABS: Absolute Lymphocytes (CBC) 1.1 K/uL (0.7-4.9); Hematocrit 39.3 % (39.6-49.0); Lymphocytes % 6.4 % (15.3-44.8); MPV 9.8 fL (7.6-11.3); RBC Red Blood Cell Count 4.32 M/uL (4.33-5.43)
--- NOTE | 2021-06-11 05:58 | P.PN ---
Date of Service: 06/11/21 Subjective: No acute events overnight Continues with copious secretions FiO2: 45% ROS: Unable to be obtained, intubated/sedated Physical exam GEN: Intubated, sedated HEENT: Normal conjunctiva, sclera anicteric CV: Regular rate and rhythm, trace bilateral pedal edema Pulm: ETT in place, on mech vent ABD: Soft, nondistended Integumentary: No rashes Neuro: Intubated/sedated. cohen in place Problem List NSTEMI with history of CAD S/P pacemaker/defibrillator placement Acute on chronic hypercapnic respiratory failure secondary to RADHA/COPD Leukocytosis Diabetes type 2 eyp-elswjdr-imdrxzwxa Hypertension Hyperlipidemia NSTEMI with history of CAD S/P pacemaker/defibrillator placement: Troponin downtrended Cardiology consulted - no immediate plans for cardiac cath, okay to discontinue heparin drip on 06/08 echo ordered -decreased LV compliance, no new wall motion abnormalities Acute on chronic hypercapnic respiratory failure secondary to RADHA/COPD: Patient was intubated shortly after admission due to becoming less responsive, ABG significant hypercarbia ABG / CO2 improving, remains on mechanical ventilation, FiO2: 50% Pulmonology consulted Decreased steroid dose on 06/07 Wean oxygen as tolerated Remains on mechanical ventilation, tube feeds started 06/08 added scopolamine for secretions on 06/09 sputum culture: GNR extubate once O2 weaned further and less secretions Leukocytosis WBC > 20, multifactorial steroids vs infection Possible infection, Zosyn started 06/07, cultures obtained Blood cultures gram-positive cocci, changed to Vanco and cefepime for MRSA coverage on 06/08 GNR growing in sputum DM2, insulind-dependent: ACH S Accu-Chek, sliding scale insulin. Hypertension: Continue carvedilol Hyperlipidemia: Continue medications. VTE: Lovenox prophylaxis Code: full Dispo: continue ICU level of care, hospitalization > 2 days If no further improvement/extubated soon, consider LTAC
[2021-06-11] MEDS: INSULIN -REGULAR HUMAN 50 UNIT/0.5 ML ML SQ SCH ×4 (06:00→18:00)
[2021-06-11] MEDS: ARFORMOTEROL TARTRATE 15 MCG/2 ML VIAL.NEB NEB SCH (07:40)
[2021-06-11] MEDS: METHYLPREDNISOLONE 40 MG INJ IV SCH (07:44)
[2021-06-11] MEDS: FUROSEMIDE 40 MG/4 ML VIAL IV SCH (07:44)
[2021-06-11] MEDS: FAMOTIDINE 20 MG/2 ML VIAL IV SCH ×2 (07:44→20:34)
[2021-06-11] MEDS: DOCUSATE NA 100 MG CAP PO SCH ×2 (07:45→20:34)
[2021-06-11] MEDS: ASPIRIN 81 MG CHEWABLE TABLET PO SCH (07:45)
[2021-06-11] MEDS: CLOPIDOGREL 75 MG TABLET PO SCH (07:46)
[2021-06-11] MEDS: ENOXAPARIN 40 MG/0.4 ML SQ SCH (07:46)
[2021-06-11] MEDS: carvediloL 6.25 MG TAB PO SCH ×2 (07:46→20:34)
--- NOTE | 2021-06-11 10:54 | P.PN ---
Subjective Date of Service: 06/11/21 Primary Care Provider: Unknown Chief Complaint: Respiratory failure NC copious secretions Review of Systems is unable to be obtained Physical Examination - Vital Signs Temperature: 98.4 F Blood Pressure: 106/66 Pulse: 69 Respirations: 16 Pulse Ox (%): 93 - Physical Exam General: Delirious Respiratory: Clear to auscultation bilaterally Cardiovascular: No edema, Regular rate/rhythm Assessment And Plan - Current Problems (Diagnosis) (1) Respiratory failure with hypoxia and hypercapnia Current Visit: Yes Status: Acute Plan: Resp failure unable to wean due to copious secretions/ labs rev WBC declining/ plan to wean once secretions have decreased . poss LTAC/ CXRY clear. ET okay , NEb atrovent Qualifiers: Chronicity: acute on chronic Qualified Code(s): J96.21 - Acute and chronic respiratory failure with hypoxia; J96.22 - Acute and chronic respiratory failure with hypercapnia
[2021-06-11] MEDS ORDERED: IPRATROPIUM BROM 0.5MG/2.5ML NEB SCH (14:00)
[2021-06-11] MEDS: ATORVASTATIN 40 MG TAB PO SCH (20:34)
[2021-06-11] MEDS: LORazepam 2 MG/ML VIAL IV PRN (20:34)
[2021-06-11] MEDS: HALOPERIDOL LACT 5 MG/ML INJ IV PRN (23:55)
[2021-06-12] MEDS: CEFEPIME 2 GM in NA CHLORIDE 0.9% 100 ML IV SCH ×2 (00:20→07:53)
[2021-06-12] MEDS: VANCOMYCIN 2 GM in NA CHLORIDE 0.9% 500 ML IVPB SCH ×2 (01:10→09:49)
[2021-06-12] MEDS: propofoL 1,000 MG/100 ML VIAL IV PRN ×9 (01:10→22:39)
[2021-06-12] MEDS: IPRATROPIUM BROM 0.5MG/2.5ML IH SCH ×4 (01:13→19:21)
[2021-06-12] MEDS ORDERED: HALOPERIDOL LACT 5 MG/ML INJ IV PRN (04:41)
[2021-06-12] MEDS: HYDROMORPHONE HCL 1 MG/ML INJ IV PRN ×4 (04:47→23:35)
[2021-06-12] MEDS: INSULIN -REGULAR HUMAN 50 UNIT/0.5 ML ML SQ SCH ×5 (05:01→23:42)
[2021-06-12 05:06] LABS: Absolute Lymphocytes (CBC) 2.2 K/uL (0.7-4.9); Hematocrit 39.9 % (39.6-49.0); Lymphocytes % 11.6 % (15.3-44.8); MPV 9.4 fL (7.6-11.3); RBC Red Blood Cell Count 4.41 M/uL (4.33-5.43)
[2021-06-12 05:19] LABS: BUN Blood Urea Nitrogen 43 mg/dL (7-18); Bicarbonate 30 mmol/L (21-32); Glucose Level 142 mg/dL (74-106); Potassium 3.5 mmol/L (3.5-5.1); Sodium Level 137 mmol/L (136-145)
[2021-06-12 05:36] LABS: Blood Morphology Comment NOT SEEN (NOT SEEN); Platelet Estimate ADEQ
[2021-06-12] MEDS ORDERED: POTASSIUM 25 MEQ EFFERV TAB PO ONE (05:56)
[2021-06-12] MEDS: ENOXAPARIN 40 MG/0.4 ML SQ SCH (07:43)
[2021-06-12] MEDS: ASPIRIN 81 MG CHEWABLE TABLET PO SCH (07:44)
[2021-06-12] MEDS: carvediloL 6.25 MG TAB PO SCH ×2 (07:44→20:52)
[2021-06-12] MEDS: CLOPIDOGREL 75 MG TABLET PO SCH (07:44)
[2021-06-12] MEDS: DOCUSATE NA 100 MG CAP PO SCH ×2 (07:44→20:52)
[2021-06-12] MEDS: FAMOTIDINE 20 MG/2 ML VIAL IV SCH ×2 (07:44→20:52)
[2021-06-12] MEDS: FUROSEMIDE 40 MG/4 ML VIAL IV SCH (07:45)
[2021-06-12] MEDS: SCOPOLAMINE HYDROBROMIDE PATCH TD SCH (07:46)
--- NOTE | 2021-06-12 12:08 | P.PN ---
Subjective Date of Service: 06/12/21 Primary Care Provider: Unknown Chief Complaint: Respiratory failure No change patient still has copious secretions over he is alert and responsive at times with agitation Review of Systems is unable to be obtained Physical Examination - Vital Signs Temperature: 98.9 F Blood Pressure: 114/68 Pulse: 73 Respirations: 15 Pulse Ox (%): 94 - Physical Exam General: Unresponsive Respiratory: Clear to auscultation bilaterally, Diminished Cardiovascular: Regular rate/rhythm, Edema Assessment And Plan - Current Problems (Diagnosis) (1) Respiratory failure with hypoxia and hypercapnia Current Visit: Yes Status: Acute Plan: Respiratory failure E. coli isolated from the sputum again he has tracheobronchitis with copious secretions not able to wean off the ventilator yet white count is mildly elevated labs and medications reviewed consider LTAC Qualifiers: Chronicity: acute on chronic Qualified Code(s): J96.21 - Acute and chronic respiratory failure with hypoxia; J96.22 - Acute and chronic respiratory failure with hypercapnia
--- NOTE | 2021-06-12 14:40 | P.PN ---
Subjective Date of Service: 06/12/21 Primary Care Provider: Unknown Chief Complaint: Respiratory failure Patient intubated and sedated. He did not tolerate weaning trials today. Oral secretions have improved with the scopolamine. Physical Examination - Vital Signs Temperature: 98.9 F Blood Pressure: 114/68 Pulse: 73 Respirations: 15 Pulse Ox (%): 94 Assessment And Plan - Plan Physical exam GEN: Intubated, sedated HEENT: Normal conjunctiva, sclera anicteric CV: Regular rate and rhythm, trace bilateral pedal edema Pulm: ETT in place, on mech vent, clear to auscultation. ABD: Soft, nondistended Integumentary: No rashes Neuro: No focal motor deficit. Urogenital: cohen in place Problem List NSTEMI with history of CAD S/P pacemaker/defibrillator placement Acute on chronic hypercapnic respiratory failure secondary to RADHA/COPD Leukocytosis Diabetes type 2 yfq-fyvasbe-kldniekij Hypertension Hyperlipidemia NSTEMI with history of CAD S/P pacemaker/defibrillator placement: Troponin downtrended Cardiology consulted - no immediate plans for cardiac cath, status post Heparin drip echo -decreased LV compliance, no new wall motion abnormalities Acute on chronic hypercapnic respiratory failure secondary to RADHA/COPD: Patient was intubated shortly after admission due to becoming less responsive, ABG significant hypercarbia On mechanical ventilation. FiO2 40% Pulmonology is following. Patient is on steroid. Sputum culture: E. coli. 1 out of 4 blood culture bottles: Coagulase-negative staph. Repeat blood culture: No growth to date. Continue IV ceftriaxone. Patient did not tolerate weaning trial today. Remains on mechanical ventilation. On tube feeding Continue scopolamine for excessive oral secretion. LTAC placement for prolonged mechanical ventilation. extubate once O2 weaned further and less secretions Leukocytosis WBC > 20, multifactorial steroids vs infection Possible infection, Status post Zosyn, vancomycin and cefepime. Vancomycin discontinued. Patient currently on IV Rocephin Leukocytosis is trending down. Continue to monitor CBC. DM2, insulind-dependent: ACH S Accu-Chek, sliding scale insulin. Hypertension: Continue carvedilol Hyperlipidemia: Continue medications.
[2021-06-12] MEDS: ATORVASTATIN 40 MG TAB PO SCH (20:52)
[2021-06-12] MEDS: LORazepam 2 MG/ML VIAL IV PRN ×2 (21:11→23:36)
[2021-06-13] MEDS: propofoL 1,000 MG/100 ML VIAL IV PRN ×6 (01:45→23:20)
[2021-06-13] MEDS: IPRATROPIUM BROM 0.5MG/2.5ML IH SCH ×4 (01:57→19:38)
[2021-06-13] MEDS: LORazepam 2 MG/ML VIAL IV PRN ×4 (05:10→18:52)
[2021-06-13] MEDS: HYDROMORPHONE HCL 1 MG/ML INJ IV PRN ×3 (05:10→16:25)
[2021-06-13] MEDS: INSULIN -REGULAR HUMAN 50 UNIT/0.5 ML ML SQ SCH ×3 (06:00→18:00)
[2021-06-13 06:09] LABS: BUN Blood Urea Nitrogen 34 mg/dL (7-18); Bicarbonate 31 mmol/L (21-32); Glucose Level 138 mg/dL (74-106); Sodium Level 136 mmol/L (136-145)
[2021-06-13 06:18] LABS: Potassium 3.7 mmol/L (3.5-5.1)
[2021-06-13 06:22] VITALS: BMI 41.6
[2021-06-13] MEDS ORDERED: POTASSIUM 25 MEQ EFFERV TAB PO ONE (07:00)
--- NOTE | 2021-06-13 07:26 | RAD REPORT ---
EXAM DESCRIPTION: RAD - Chest Single View - 06/13/2021 5:54 am CLINICAL HISTORY: Respiratory failure COMPARISON: Portable June 10 TECHNIQUE: AP portable chest image was obtained 06/13/2021 5:54 am . FINDINGS: Endotracheal tube remains in good position 4 cm above the georges. Enteric tube extends bel ow the diaphragm, off the field of view. Increased interstitial opacification noted in the right lower lung field. Lung volumes are low. Left costophrenic angle blunting and obscuring of the left heart border and hemidiaphragm remains. Central vasculature is prominent. Heart size is upper normal, stable. No pneumothorax or enlarging pleural e ffusion. No acute bony abnormality seen. No acute aortic findings suspected. IMPRESSION: Slight worsening of interstitial and alveolar opacification in the lower right lung fiel d. Patient can be monitored for developing pneumonia or progressive pulmonary edema. ET tube and enteric tube unchanged in positioning.
[2021-06-13] MEDS: CEFTRIAXONE 1,000 MG in NA CHLORIDE 0.9% 50 ML IVPB SCH (08:09)
[2021-06-13] MEDS: FUROSEMIDE 40 MG/4 ML VIAL IV SCH (08:10)
[2021-06-13] MEDS: FAMOTIDINE 20 MG/2 ML VIAL IV SCH ×2 (08:10→21:00)
[2021-06-13] MEDS: ENOXAPARIN 40 MG/0.4 ML SQ SCH (08:10)
[2021-06-13] MEDS: ASPIRIN 81 MG CHEWABLE TABLET PO SCH (08:10)
[2021-06-13] MEDS: CLOPIDOGREL 75 MG TABLET PO SCH (08:11)
[2021-06-13] MEDS: DOCUSATE NA 100 MG CAP PO SCH ×2 (08:11→21:00)
[2021-06-13] MEDS: carvediloL 6.25 MG TAB PO SCH ×2 (08:11→20:59)
[2021-06-13] MEDS ORDERED: DEXMEDETOMIDINE HCL 200 MCG in NA CHLORIDE 0.9% 98 ML IV SCH (10:00)
[2021-06-13 10:32] LABS: Absolute Lymphocytes (CBC) 2.3 K/uL (0.7-4.9); Hematocrit 41.6 % (39.6-49.0); Lymphocytes % 11.3 % (15.3-44.8); MPV 10.1 fL (7.6-11.3); RBC Red Blood Cell Count 4.56 M/uL (4.33-5.43)
--- NOTE | 2021-06-13 12:21 | P.PN ---
Subjective Date of Service: 06/13/21 Primary Care Provider: Unknown Chief Complaint: Respiratory failure Subjective: Improving Patient is on a spontaneous breathing trial improving patient is back on propofol still have significant amount of secretion Review of Systems is unable to be obtained Physical Examination - Vital Signs Temperature: 99.4 F Blood Pressure: 139/81 Pulse: 82 Respirations: 20 Pulse Ox (%): 93 - Physical Exam General: Alert, Cooperative Respiratory: Clear to auscultation bilaterally, Diminished Assessment And Plan - Current Problems (Diagnosis) (1) Respiratory failure with hypoxia and hypercapnia Current Visit: Yes Status: Acute Plan: Respiratory failure respiratory failure patient is improving still has copious amounts of secretions DC Precedex resume sedation yes use as needed continue with the nebulizer continue with nebulizers patient has a scopolamine patch/labs reviewed Qualifiers: Chronicity: acute on chronic Qualified Code(s): J96.21 - Acute and chronic respiratory failure with hypoxia; J96.22 - Acute and chronic respiratory failure with hypercapnia
[2021-06-13 13:16] LABS: Platelet Estimate ADEQ
[2021-06-13 13:18] LABS: Blood Morphology Comment NOTED (NOT SEEN)
[2021-06-13 13:19] LABS: Hypochromasia 1+
--- NOTE | 2021-06-13 13:23 | P.PN ---
Subjective Date of Service: 06/13/21 Primary Care Provider: Unknown Chief Complaint: Respiratory failure Patient intubated and sedated. He is now tolerating weaning trials. Physical Examination - Vital Signs Temperature: 99.4 F Blood Pressure: 139/81 Pulse: 82 Respirations: 20 Pulse Ox (%): 93 Assessment And Plan - Plan Physical exam GEN: Intubated, sedated HEENT: ETT CV: Regular rate and rhythm, trace bilateral pedal edema Pulm: On mech vent, clear to auscultation. ABD: Soft, nondistended Integumentary: No rashes Neuro: No focal motor deficit. Urogenital: cohen in place Problem List NSTEMI with history of CAD S/P pacemaker/defibrillator placement Acute on chronic hypercapnic respiratory failure secondary to RADHA/COPD Leukocytosis Diabetes type 2 lqd-pohyqej-zllmrvdwa Hypertension Hyperlipidemia NSTEMI with history of CAD S/P pacemaker/defibrillator placement: Troponin downtrended Seen by cardiology- no immediate plans for cardiac cath, status post Heparin drip echo -decreased LV compliance, no new wall motion abnormalities Acute on chronic hypercapnic respiratory failure secondary to RADHA/COPD: Patient was intubated shortly after admission due to becoming less responsive, ABG significant hypercarbia On mechanical ventilation. FiO2 40% Pulmonology is following. Patient is on steroid. Sputum culture: E. coli. 1 out of 4 blood culture bottles: Coagulase-negative staph. Repeat blood culture: No growth to date. Continue IV ceftriaxone. Patient did not tolerate weaning trial today. Remains on mechanical ventilation. Difficult to wean. On tube feeding Continue scopolamine for excessive oral secretion. LTAC placement for prolonged mechanical ventilation. Leukocytosis WBC > 20, multifactorial steroids vs infection Possible infection, Status post Zosyn, vancomycin and cefepime. Vancomycin discontinued. Patient currently on IV Rocephin Leukocytosis fluctuates. Continue to monitor CBC. DM2, insulind-dependent: ACH S Accu-Chek, sliding scale insulin. Hypertension: Continue carvedilol Hyperlipidemia: Continue medications.
[2021-06-13] MEDS: ATORVASTATIN 40 MG TAB PO SCH (21:00)
[2021-06-14] MEDS: IPRATROPIUM BROM 0.5MG/2.5ML IH SCH ×4 (01:16→19:31)
[2021-06-14] MEDS: HYDROMORPHONE HCL 1 MG/ML INJ IV PRN ×3 (01:27→22:11)
[2021-06-14] MEDS: propofoL 1,000 MG/100 ML VIAL IV PRN ×3 (01:28→06:27)
[2021-06-14] MEDS: LORazepam 2 MG/ML VIAL IV PRN ×2 (04:01→09:59)
[2021-06-14 05:38] LABS: Absolute Lymphocytes (CBC) 2.3 K/uL (0.7-4.9); Hematocrit 41.6 % (39.6-49.0); MPV 9.8 fL (7.6-11.3); RBC Red Blood Cell Count 4.58 M/uL (4.33-5.43)
[2021-06-14 05:55] LABS: BUN Blood Urea Nitrogen 32 mg/dL (7-18); Bicarbonate 36 mmol/L (21-32); Glucose Level 147 mg/dL (74-106); Potassium 3.9 mmol/L (3.5-5.1); Sodium Level 137 mmol/L (136-145)
[2021-06-14] MEDS: INSULIN -REGULAR HUMAN 50 UNIT/0.5 ML ML SQ SCH ×4 (05:59→18:00)
[2021-06-14] MEDS: carvediloL 6.25 MG TAB PO SCH ×2 (09:00→20:06)
[2021-06-14] MEDS: DOCUSATE NA 100 MG CAP PO SCH ×2 (09:00→20:06)
[2021-06-14] MEDS: CLOPIDOGREL 75 MG TABLET PO SCH (09:00)
[2021-06-14] MEDS: ASPIRIN 81 MG CHEWABLE TABLET PO SCH (09:00)
--- NOTE | 2021-06-14 09:27 | RAD REPORT ---
EXAM DESCRIPTION: RAD - Chest Single View - 06/14/2021 6:00 am CLINICAL HISTORY: Respiratory failure Chest pain. COMPARISON: Chest Single View dated 06/13/2021; Chest Single View dated 06/10/2021; Chest Single View da clarita 06/09/2021; Chest Single View dated 06/08/2021 FINDINGS: Portable technique limits examination quality. Tip of the endotracheal tube is at the level of the superior articular arch. Mild bilateral pulmonary opacities persists, without significant change. The heart is mildly enlarged with dual lead pacer de vice present. Enteric tube descends into the stomach.
[2021-06-14] MEDS: ENOXAPARIN 40 MG/0.4 ML SQ SCH (09:51)
[2021-06-14] MEDS: CEFTRIAXONE 1,000 MG in NA CHLORIDE 0.9% 50 ML IVPB SCH (09:51)
[2021-06-14] MEDS: FUROSEMIDE 40 MG/4 ML VIAL IV SCH (09:53)
[2021-06-14] MEDS: FAMOTIDINE 20 MG/2 ML VIAL IV SCH ×2 (09:54→20:12)
[2021-06-14] MEDS ORDERED: KCL 20 MEQ/100 mL IVPB 20 MEQ/100 ML BAG IV SCH (10:00)
[2021-06-14] MEDS: DEXMEDETOMIDINE HCL 200 MCG in NA CHLORIDE 0.9% 98 ML IV SCH ×2 (11:27→15:36)
--- NOTE | 2021-06-14 11:32 | P.PN ---
Subjective Date of Service: 06/14/21 Primary Care Provider: Unknown Chief Complaint: Respiratory failure This morning when I was rounding patient was placed on spontaneous breathing trial still very tachypneic having some secretions agitated hemodynamically stable Review of Systems is unable to be obtained Physical Examination - Vital Signs Temperature: 98.3 F Blood Pressure: 135/77 Pulse: 105 Respirations: 31 Pulse Ox (%): 96 - Physical Exam General: Mild distress Respiratory: Clear to auscultation bilaterally, Diminished Cardiovascular: No edema, Regular rate/rhythm Assessment And Plan - Current Problems (Diagnosis) (1) Respiratory failure with hypoxia and hypercapnia Current Visit: Yes Status: Acute Plan: Respiratory failure respiratory failure patient is improving hemodynamically stable has been on spontaneous breathing trial plan to extubate him white count is declining chest x-ray is clear may use dexmedetomidine Qualifiers: Chronicity: acute on chronic Qualified Code(s): J96.21 - Acute and chronic respiratory failure with hypoxia; J96.22 - Acute and chronic respiratory failure with hypercapnia
--- NOTE | 2021-06-14 12:12 | P.PN ---
Subjective Date of Service: 06/14/21 Primary Care Provider: Unknown Chief Complaint: Respiratory failure Patient extubated this morning but noted to be in respiratory distress on high flow oxygen post extubation. He calmed down with less distress after he was started on Precedex drip. Respiratory rate has improved on the Precedex drip. Physical Examination - Vital Signs Temperature: 98.3 F Blood Pressure: 135/77 Pulse: 105 Respirations: 31 Pulse Ox (%): 96 Assessment And Plan - Plan Physical exam GEN: Intubated, sedated HEENT: ETT CV: Regular rate and rhythm, trace bilateral pedal edema Pulm: On mech vent, clear to auscultation. ABD: Soft, nondistended Integumentary: No rashes Neuro: No focal motor deficit. Urogenital: cohen in place Problem List NSTEMI with history of CAD S/P pacemaker/defibrillator placement Acute on chronic hypercapnic respiratory failure secondary to RADHA/COPD Leukocytosis Diabetes type 2 mox-fmgkgxs-noykrdkjq Hypertension Hyperlipidemia NSTEMI with history of CAD S/P pacemaker/defibrillator placement: Troponin downtrended Seen by cardiology- no immediate plans for cardiac cath, status post Heparin drip echo -decreased LV compliance, no new wall motion abnormalities Acute on chronic hypercapnic respiratory failure secondary to RADHA/COPD: Patient was intubated shortly after admission due to becoming less responsive, ABG significant hypercarbia Extubated today to high flow oxygen. Patient with some respiratory distress but he is better on Precedex drip. May need BiPAP or intubation Pulmonology is following. Continue steroid Sputum culture: E. coli. 1 out of 4 blood culture bottles: Coagulase-negative staph. Repeat blood culture: No growth to date. Continue IV ceftriaxone. Continue scopolamine for excessive oral secretion. Add glycopyrrolate Leukocytosis Persistent leukocytosis. Multifactorial secondary to steroids vs infection Status post Zosyn, vancomycin and cefepime. Vancomycin discontinued. Patient currently on IV Rocephin Continue to monitor CBC. DM2, insulind-dependent: ACH S Accu-Chek, sliding scale insulin. Hypertension: Continue carvedilol Hyperlipidemia: Continue medications.
[2021-06-14] MEDS ORDERED: DEXMEDETOMIDINE HCL 1,000 MCG in NA CHLORIDE 0.9% 490 ML IV SCH (19:00)
[2021-06-14] MEDS: ATORVASTATIN 40 MG TAB PO SCH (20:07)
[2021-06-15] MEDS: HYDROMORPHONE HCL 1 MG/ML INJ IV PRN ×7 (01:45→23:15)
[2021-06-15] MEDS: IPRATROPIUM BROM 0.5MG/2.5ML IH SCH ×4 (01:57→19:35)
[2021-06-15 05:38] LABS: Absolute Lymphocytes (CBC) 2.2 K/uL (0.7-4.9); Hematocrit 42.7 % (39.6-49.0); Lymphocytes % 12.5 % (15.3-44.8); MPV 10.1 fL (7.6-11.3); RBC Red Blood Cell Count 4.73 M/uL (4.33-5.43)
[2021-06-15] MEDS: INSULIN -REGULAR HUMAN 50 UNIT/0.5 ML ML SQ SCH ×5 (05:42→20:03)
[2021-06-15 05:58] LABS: BUN Blood Urea Nitrogen 40 mg/dL (7-18); Bicarbonate 37 mmol/L (21-32); Glucose Level 133 mg/dL (74-106); Potassium 3.9 mmol/L (3.5-5.1); Sodium Level 141 mmol/L (136-145)
[2021-06-15] MEDS ORDERED: KCL 20 MEQ/100 mL IVPB 20 MEQ/100 ML BAG IV SCH (07:00)
[2021-06-15] MEDS ORDERED: POTASSIUM CL SA 10 MEQ TAB PO ONE (07:59)
[2021-06-15] MEDS: carvediloL 6.25 MG TAB PO SCH ×2 (09:00→20:00)
[2021-06-15] MEDS: FAMOTIDINE 20 MG/2 ML VIAL IV SCH ×2 (09:06→20:00)
[2021-06-15] MEDS: ENOXAPARIN 40 MG/0.4 ML SQ SCH (09:06)
[2021-06-15] MEDS: CEFTRIAXONE 1,000 MG in NA CHLORIDE 0.9% 50 ML IVPB SCH (09:06)
[2021-06-15] MEDS: FUROSEMIDE 40 MG/4 ML VIAL IV SCH (09:06)
[2021-06-15] MEDS: ASPIRIN 81 MG CHEWABLE TABLET PO SCH (09:07)
[2021-06-15] MEDS: DOCUSATE NA 100 MG CAP PO SCH ×2 (09:07→20:02)
[2021-06-15] MEDS: SCOPOLAMINE HYDROBROMIDE PATCH TD SCH (09:09)
[2021-06-15] MEDS: CLOPIDOGREL 75 MG TABLET PO SCH (09:09)
--- NOTE | 2021-06-15 09:40 | RAD REPORT ---
EXAM DESCRIPTION: RAD - Chest Single View - 06/15/2021 7:59 am CLINICAL HISTORY: Respiratory failure Chest pain. COMPARISON: Chest Single View dated 06/14/2021; Chest Single View dated 06/13/2021; Chest Single View d ated 06/10/2021; Chest Single View dated 06/09/2021 FINDINGS: Portable technique limits examination quality. The patient has been extubated. The lungs appear grossly clear. The heart is normal in size. Dual jay d pacer device.
[2021-06-15] MEDS: DEXMEDETOMIDINE HCL 200 MCG in NA CHLORIDE 0.9% 98 ML IV SCH (09:48)
--- NOTE | 2021-06-15 11:12 | P.PN ---
Subjective Date of Service: 06/15/21 Primary Care Provider: Unknown Chief Complaint: Respiratory failure Patient is doing well today is extubated alert oriented responsive cooperative he is on high flow oxygen dysphonic Review of Systems General: Weakness Respiratory: Shortness of Breath Physical Examination - Vital Signs Temperature: 99.4 F Blood Pressure: 117/74 Pulse: 63 Respirations: 22 Pulse Ox (%): 94 - Physical Exam General: Alert, Oriented x3, Mild distress Respiratory: Expiratory wheezes Cardiovascular: No edema, Regular rate/rhythm Assessment And Plan - Current Problems (Diagnosis) (1) Respiratory failure with hypoxia and hypercapnia Current Visit: Yes Status: Acute Plan: Doing much better alert oriented responsive cooperative changed to p.o. Spironolactone history of alcohol abuse patient takes narcotics will resume Nor co wean off the dexmedetomidine resume Metformin change to oral antibiotics tomorrow advance diet patient is drinking titrate sat to 90% Qualifiers: Chronicity: acute on chronic Qualified Code(s): J96.21 - Acute and chronic respiratory failure with hypoxia; J96.22 - Acute and chronic respiratory failure with hypercapnia
[2021-06-15] MEDS: HYDROCODONE/APAP 5/325 MG TAB PO PRN ×2 (12:11→20:01)
[2021-06-15] MEDS: THIAMINE HCL 100 MG TABLET PO SCH ×2 (12:12→20:00)
--- NOTE | 2021-06-15 14:55 | P.PN ---
Subjective Date of Service: 06/15/21 Primary Care Provider: Unknown Chief Complaint: Respiratory failure Patient doing better today. He is tolerating high flow oxygen. He is awake and interacting meaningfully. He is eager to get up and walk. Physical Examination - Vital Signs Temperature: 99.4 F Blood Pressure: 117/74 Pulse: 63 Respirations: 21 Pulse Ox (%): 99 Assessment And Plan - Plan Physical exam GEN: Intubated, sedated HEENT: ETT CV: Regular rate and rhythm, trace bilateral pedal edema Pulm: Diminished breath sounds bilaterally, no crackles. ABD: Soft, nondistended Integumentary: No rashes Neuro: No focal motor deficit. Awake and alert Urogenital: cohen in place Problem List NSTEMI with history of CAD S/P pacemaker/defibrillator placement Acute on chronic hypercapnic respiratory failure secondary to RADHA/COPD Leukocytosis Diabetes type 2 pom-qwadlhk-mnnpkdfco Hypertension Hyperlipidemia NSTEMI with history of CAD S/P pacemaker/defibrillator placement: Troponin downtrended Seen by cardiology- no immediate plans for cardiac cath, status post Heparin drip echo -decreased LV compliance, no new wall motion abnormalities Acute on chronic hypercapnic respiratory failure secondary to RADHA/COPD: Patient was intubated shortly after admission due to becoming less responsive, ABG significant hypercarbia Extubated today to high flow oxygen. Patient is currently tolerating high flow oxygen Pulmonology is following. Continue steroid Wean oxygen as tolerated. Sputum culture: E. coli. 1 out of 4 blood culture bottles: Coagulase-negative staph. Repeat blood culture: No growth to date. Continue IV ceftriaxone. Scopolamine for excessive oral secretion discontinued. PT consult. DINA Cohen. Leukocytosis Leukocytosis is trending down. Multifactorial secondary to steroids vs infection Status post Zosyn, vancomycin and cefepime. Vancomycin discontinued. Patient currently on IV Rocephin Continue to monitor CBC. DM2, insulind-dependent: ACH S Accu-Chek, sliding scale insulin. Hypertension: Continue carvedilol Hyperlipidemia: Continue medications.
[2021-06-15] MEDS: GUAIFENESIN 600 MG SA TAB PO SCH ×2 (16:00→20:02)
[2021-06-15] MEDS: METFORMIN HCL 500 MG TAB PO SCH (16:01)
[2021-06-15] MEDS: LORAZEPAM 1 MG TABLET PO PRN ×2 (16:01→21:28)
[2021-06-15] MEDS: DIPHENHYDRAMINE 25 MG TAB/CAP PO PRN (18:52)
[2021-06-15] MEDS: SPIRONOLACTONE 25 MG TABLET PO SCH (20:01)
[2021-06-15] MEDS: ATORVASTATIN 40 MG TAB PO SCH (20:02)
[2021-06-15] MEDS ORDERED: WATER FOR INJ,STERILE 10 ML IM PRN (22:55)
[2021-06-15] MEDS ORDERED: ZIPRASIDONE MESYLA 20 MG/VIAL IM ONE (22:55)
[2021-06-16] MEDS: IPRATROPIUM BROM 0.5MG/2.5ML IH SCH ×4 (01:05→20:00)
[2021-06-16] MEDS: HYDROMORPHONE HCL 1 MG/ML INJ IV PRN ×2 (01:15→06:30)
[2021-06-16] MEDS ORDERED: LORazepam 2 MG/ML VIAL IV ONE (01:38)
[2021-06-16] MEDS ORDERED: LORazepam 2 MG/ML VIAL ONE (01:42)
[2021-06-16] MEDS: LORAZEPAM 1 MG TABLET PO PRN ×2 (06:36→23:57)
[2021-06-16] MEDS: DIPHENHYDRAMINE 25 MG TAB/CAP PO PRN (06:36)
[2021-06-16 07:00] LABS: Absolute Lymphocytes (CBC) 1.8 K/uL (0.7-4.9); Hematocrit 41.4 % (39.6-49.0); Lymphocytes % 12.1 % (15.3-44.8); MPV 9.9 fL (7.6-11.3); RBC Red Blood Cell Count 4.54 M/uL (4.33-5.43)
[2021-06-16 07:11] LABS: BUN Blood Urea Nitrogen 33 mg/dL (7-18); Bicarbonate 38 mmol/L (21-32); Glucose Level 122 mg/dL (74-106); Magnesium 2.1 mg/dL (1.8-2.4); Potassium 3.5 mmol/L (3.5-5.1); Sodium Level 139 mmol/L (136-145)
[2021-06-16] MEDS: INSULIN -REGULAR HUMAN 50 UNIT/0.5 ML ML SQ SCH ×4 (07:30→20:14)
[2021-06-16] MEDS ORDERED: KCL 20 MEQ/100 mL IVPB 20 MEQ/100 ML BAG IV SCH (08:00)
[2021-06-16] MEDS: FAMOTIDINE 20 MG/2 ML VIAL IV SCH ×2 (08:06→19:57)
[2021-06-16] MEDS: carvediloL 6.25 MG TAB PO SCH ×2 (08:07→19:56)
[2021-06-16] MEDS: CLOPIDOGREL 75 MG TABLET PO SCH (08:07)
[2021-06-16] MEDS: ASPIRIN 81 MG CHEWABLE TABLET PO SCH (08:07)
[2021-06-16] MEDS: THIAMINE HCL 100 MG TABLET PO SCH ×2 (08:07→19:57)
[2021-06-16] MEDS: ENOXAPARIN 40 MG/0.4 ML SQ SCH (08:07)
[2021-06-16] MEDS: DOCUSATE NA 100 MG CAP PO SCH ×2 (08:07→19:56)
[2021-06-16] MEDS: GUAIFENESIN 600 MG SA TAB PO SCH ×2 (08:08→19:56)
[2021-06-16] MEDS: METFORMIN HCL 500 MG TAB PO SCH ×2 (08:08→16:53)
[2021-06-16] MEDS: CEFTRIAXONE 1,000 MG in NA CHLORIDE 0.9% 50 ML IVPB SCH (08:08)
[2021-06-16] MEDS: SPIRONOLACTONE 25 MG TABLET PO SCH ×2 (08:08→19:57)
[2021-06-16] MEDS: HYDROCODONE/APAP 5/325 MG TAB PO PRN ×2 (09:14→23:57)
[2021-06-16] MEDS: LORazepam 2 MG/ML VIAL IV PRN ×4 (10:29→22:46)
--- NOTE | 2021-06-16 11:10 | P.PN ---
Subjective Date of Service: 06/16/21 Primary Care Provider: Unknown Chief Complaint: Respiratory failure Patient noted to be agitated this morning. He appears confused. Family report history of alcohol abuse may still be in the alcohol withdrawal phase He is tolerating high flow oxygen. Nursing staff report patient was quite agitated last night and received a dose of Geodon and Ativan. Physical Examination - Vital Signs Temperature: 98.4 F Blood Pressure: 132/74 Pulse: 87 Respirations: 24 Pulse Ox (%): 97 Assessment And Plan - Plan Physical exam GEN: Intubated, sedated HEENT: ETT CV: Regular rate and rhythm, trace bilateral pedal edema Pulm: Diminished breath sounds bilaterally, no crackles. ABD: Soft, nondistended Integumentary: No rashes Neuro: No focal motor deficit. Awake and alert Urogenital: cohen in place Problem List NSTEMI with history of CAD S/P pacemaker/defibrillator placement Acute on chronic hypercapnic respiratory failure secondary to RADHA/COPD Leukocytosis Diabetes type 2 hfz-fwcuuau-ojadyqyjs Hypertension Hyperlipidemia Alcohol withdrawal/agitation NSTEMI with history of CAD S/P pacemaker/defibrillator placement: Troponin downtrended Seen by cardiology- no immediate plans for cardiac cath, status post Heparin drip echo -decreased LV compliance, no new wall motion abnormalities Medical management-aspirin, Plavix, Coreg and Lipitor. Acute on chronic hypercapnic respiratory failure secondary to RADHA/COPD: Patient was intubated shortly after admission due to becoming less responsive, ABG significant hypercarbia Extubated today to high flow oxygen. Patient is currently tolerating high flow oxygen Pulmonology is following. Steroid discontinued. Wean oxygen as tolerated. Sputum culture: E. coli. 1 out of 4 blood culture bottles: Coagulase-negative staph. Repeat blood culture: No growth to date. Continue IV ceftriaxone. Discontinue scopolamine. PT DC Cohen. Leukocytosis Leukocytosis is trending down. Multifactorial secondary to steroids vs infection Status post Zosyn, vancomycin and cefepime. Vancomycin discontinued. Patient currently on IV Rocephin Continue to monitor CBC. DM2, insulind-dependent: ACH S Accu-Chek, sliding scale insulin. Hypertension: Continue carvedilol Hyperlipidemia: Continue medications. Agitation/alcohol withdrawal Ativan IV as needed. Thiamine Functional constipation No BM for several days on colace. Add MiraLAX.
[2021-06-16] MEDS: ATORVASTATIN 40 MG TAB PO SCH (19:56)
[2021-06-16] MEDS: POLYETHYL GLY 3350 17 GM/DOSE PO SCH (19:57)
[2021-06-17] MEDS: IPRATROPIUM BROM 0.5MG/2.5ML IH SCH ×4 (02:20→19:35)
[2021-06-17] MEDS: LORazepam 2 MG/ML VIAL IV PRN ×2 (04:43→20:57)
[2021-06-17 05:46] LABS: Absolute Lymphocytes (CBC) 1.8 K/uL (0.7-4.9); Hematocrit 40.2 % (39.6-49.0); MPV 10.1 fL (7.6-11.3); RBC Red Blood Cell Count 4.42 M/uL (4.33-5.43)
[2021-06-17 06:07] LABS: BUN Blood Urea Nitrogen 26 mg/dL (7-18); Bicarbonate 35 mmol/L (21-32); Glucose Level 121 mg/dL (74-106); Potassium 3.5 mmol/L (3.5-5.1); Sodium Level 141 mmol/L (136-145)
[2021-06-17] MEDS: INSULIN -REGULAR HUMAN 50 UNIT/0.5 ML ML SQ SCH ×4 (07:30→20:56)
[2021-06-17] MEDS ORDERED: KCL 20 MEQ/100 mL IVPB 20 MEQ/100 ML BAG IV SCH (07:30)
[2021-06-17] MEDS: METFORMIN HCL 500 MG TAB PO SCH ×3 (08:00→17:00)
[2021-06-17] MEDS: POLYETHYL GLY 3350 17 GM/DOSE PO SCH ×3 (08:17→20:02)
[2021-06-17] MEDS: FAMOTIDINE 20 MG/2 ML VIAL IV SCH (08:17)
[2021-06-17] MEDS: GUAIFENESIN 600 MG SA TAB PO SCH (08:17)
[2021-06-17] MEDS: ENOXAPARIN 40 MG/0.4 ML SQ SCH (08:17)
[2021-06-17] MEDS: ASPIRIN 81 MG CHEWABLE TABLET PO SCH ×2 (08:17→09:00)
[2021-06-17] MEDS: DOCUSATE NA 100 MG CAP PO SCH ×3 (08:17→20:02)
[2021-06-17] MEDS: THIAMINE HCL 100 MG TABLET PO SCH ×3 (08:17→20:02)
[2021-06-17] MEDS: SPIRONOLACTONE 25 MG TABLET PO SCH ×3 (08:17→20:01)
[2021-06-17] MEDS: CEFTRIAXONE 1,000 MG in NA CHLORIDE 0.9% 50 ML IVPB SCH (08:17)
[2021-06-17] MEDS: carvediloL 6.25 MG TAB PO SCH ×3 (08:18→20:02)
[2021-06-17] MEDS: CLOPIDOGREL 75 MG TABLET PO SCH ×2 (08:18→09:00)
--- NOTE | 2021-06-17 09:24 | P.PN ---
Subjective Date of Service: 06/17/21 Primary Care Provider: Unknown Chief Complaint: Respiratory failure Patient is doing well currently on CPAP eating and drinking a little drowsy lethargic this morning he was awake until late last night secretions have declined Review of Systems is unable to be obtained Physical Examination - Vital Signs Temperature: 98.4 F Blood Pressure: 138/71 Pulse: 74 Respirations: 20 Pulse Ox (%): 93 - Physical Exam General: Unresponsive Respiratory: Clear to auscultation bilaterally Cardiovascular: No edema, Regular rate/rhythm Assessment And Plan - Current Problems (Diagnosis) (1) Respiratory failure with hypoxia and hypercapnia Current Visit: Yes Status: Acute Plan: Patient is doing much better he is requiring BiPAP history of alcohol abuse secretions are declining change to p.o. antibiotic labs reviewed change to p.o. Augmentin patient is tolerating nasal cannula oxygen stable to be transferred to the floor Qualifiers: Chronicity: acute on chronic Qualified Code(s): J96.21 - Acute and chronic respiratory failure with hypoxia; J96.22 - Acute and chronic respiratory failure with hypercapnia
--- NOTE | 2021-06-17 12:17 | P.PN ---
Subjective Date of Service: 06/17/21 Primary Care Provider: Unknown Chief Complaint: Respiratory failure Nurse Staff report patient did not sleep last night. Saw him on BiPAP and sleeping this morning. He was initially on 4 L oxygen by nasal cannula. Physical Examination - Vital Signs Temperature: 98.4 F Blood Pressure: 138/71 Pulse: 74 Respirations: 20 Pulse Ox (%): 93 Assessment And Plan - Plan Physical exam GEN: Intubated, sedated HEENT: BIPAP CV: Regular rate and rhythm, trace bilateral pedal edema Pulm: Diminished breath sounds bilaterally, no crackles. ABD: Soft, nondistended Integumentary: No rashes Neuro: No focal motor deficit. Drowsy. Urogenital: cohen in place Problem List NSTEMI with history of CAD S/P pacemaker/defibrillator placement Acute on chronic hypercapnic respiratory failure secondary to RADHA/COPD Leukocytosis Diabetes type 2 lxr-vdnvaxd-zxwvbhuue Hypertension Hyperlipidemia Alcohol withdrawal/agitation NSTEMI with history of CAD S/P pacemaker/defibrillator placement: Troponin downtrended Seen by cardiology- no immediate plans for cardiac cath, status post Heparin drip echo -decreased LV compliance, no new wall motion abnormalities Medical management-aspirin, Plavix, Coreg and Lipitor. Acute on chronic hypercapnic respiratory failure secondary to RADHA/COPD: Patient was intubated shortly after admission due to becoming less responsive, ABG significant hypercarbia Extubated today to high flow oxygen. Patient is currently on BiPAP Pulmonology is following. Steroid discontinued. Wean oxygen as tolerated. Sputum culture: E. coli. 1 out of 4 blood culture bottles: Coagulase-negative staph. Repeat blood culture: No growth to date. Continue IV ceftriaxone. PT. Leukocytosis Leukocytosis continue to trend down. Multifactorial secondary to steroids vs infection Status post Zosyn, vancomycin and cefepime. Vancomycin discontinued. Patient currently on IV Rocephin Continue to monitor CBC. DM2, insulind-dependent: ACH S Accu-Chek, sliding scale insulin. Hypertension: Continue carvedilol Hyperlipidemia: Continue medications. Agitation/alcohol withdrawal Ativan IV as needed. Thiamine Functional constipation Continue Colace and MiraLAX.
[2021-06-17 17:13] LABS: Arterial Blood Carboxyhemoglob 1.3 % (0-1.5); Blood Gas Oxyhemoglobin 93.5 % (94-97); Blood O2 Saturation 95.9 % (92-98.5)
[2021-06-17] MEDS: HYDROCODONE/APAP 5/325 MG TAB PO PRN (19:01)
[2021-06-17] MEDS: AMOX/K CLAV 500 MG TAB PO SCH (20:02)
[2021-06-17] MEDS: ATORVASTATIN 40 MG TAB PO SCH (20:02)
[2021-06-18] MEDS: IPRATROPIUM BROM 0.5MG/2.5ML IH SCH ×4 (02:10→19:09)
[2021-06-18] MEDS: HYDROCODONE/APAP 5/325 MG TAB PO PRN ×3 (05:11→20:22)
[2021-06-18 05:47] LABS: Absolute Lymphocytes (CBC) 1.7 K/uL (0.7-4.9); Hematocrit 40.8 % (39.6-49.0); MPV 9.6 fL (7.6-11.3); RBC Red Blood Cell Count 4.47 M/uL (4.33-5.43)
[2021-06-18 06:06] LABS: BUN Blood Urea Nitrogen 24 mg/dL (7-18); Bicarbonate 40 mmol/L (21-32); Glucose Level 106 mg/dL (74-106); Potassium 3.6 mmol/L (3.5-5.1); Sodium Level 143 mmol/L (136-145)
[2021-06-18] MEDS: INSULIN -REGULAR HUMAN 50 UNIT/0.5 ML ML SQ SCH ×4 (07:30→20:23)
[2021-06-18] MEDS: POLYETHYL GLY 3350 17 GM/DOSE PO SCH ×2 (08:27→20:23)
[2021-06-18] MEDS: ASPIRIN 81 MG CHEWABLE TABLET PO SCH (08:27)
[2021-06-18] MEDS: carvediloL 6.25 MG TAB PO SCH ×2 (08:27→20:24)
[2021-06-18] MEDS: ENOXAPARIN 40 MG/0.4 ML SQ SCH (08:27)
[2021-06-18] MEDS: DOCUSATE NA 100 MG CAP PO SCH ×2 (08:27→20:22)
[2021-06-18] MEDS: CLOPIDOGREL 75 MG TABLET PO SCH (08:28)
[2021-06-18] MEDS: METFORMIN HCL 500 MG TAB PO SCH ×2 (08:28→16:52)
[2021-06-18] MEDS: SPIRONOLACTONE 25 MG TABLET PO SCH ×2 (08:28→20:22)
[2021-06-18] MEDS: THIAMINE HCL 100 MG TABLET PO SCH ×2 (08:28→20:22)
[2021-06-18] MEDS: AMOX/K CLAV 500 MG TAB PO SCH ×2 (08:29→21:00)
[2021-06-18] MEDS ORDERED: POTASSIUM CL SA 10 MEQ TAB PO ONE (08:41)
--- NOTE | 2021-06-18 14:47 | P.PN ---
Subjective Date of Service: 06/18/21 Primary Care Provider: Unknown Chief Complaint: Respiratory failure Patient is more awake today and communicating meaningfully. I suspect his drowsiness is due to CO2 retention He is currently tolerating 4 to 5 L of oxygen by nasal cannula. He wants to get up and walk. Physical Examination - Vital Signs Temperature: 99.1 F Blood Pressure: 120/63 Pulse: 75 Respirations: 21 Pulse Ox (%): 91 Assessment And Plan - Plan Physical exam GEN: Intubated, sedated HEENT: Oxygen by nasal cannula CV: Regular rate and rhythm, trace bilateral pedal edema Pulm: Diminished breath sounds bilaterally, no crackles. ABD: Soft, nondistended Integumentary: No rashes Neuro: No focal motor deficit. Urogenital: cohen in place Problem List NSTEMI with history of CAD S/P pacemaker/defibrillator placement Acute on chronic hypercapnic respiratory failure secondary to RADHA/COPD Leukocytosis Diabetes type 2 leb-vfcmzus-gdcrsashf Hypertension Hyperlipidemia Alcohol withdrawal/agitation NSTEMI with history of CAD S/P pacemaker/defibrillator placement: Troponin downtrended Seen by cardiology- no immediate plans for cardiac cath, status post Heparin drip echo -decreased LV compliance, no new wall motion abnormalities Medical management-aspirin, Plavix, Coreg and Lipitor. Acute on chronic hypercapnic respiratory failure secondary to RADHA/COPD: Patient was intubated shortly after admission due to becoming less responsive, ABG significant hypercarbia Extubated today to high flow oxygen. Currently tolerating oxygen by nasal cannula. Drowsiness secondary to intermittent CO2 retention Pulmonology is following. Steroid discontinued. Wean oxygen as tolerated. Sputum culture: Pansensitive E. coli. 1 out of 4 blood culture bottles: Coagulase-negative staph. Repeat blood culture: No growth to date. Sputum culture grew E. coli. Antibiotics transition to oral Augmentin Continue PT. Leukocytosis Leukocytosis continue to trend down. Multifactorial secondary to steroids vs infection Status post Zosyn, vancomycin and cefepime. Vancomycin discontinued. Patient currently on oral Augmentin DM2, insulind-dependent: ACH S Accu-Chek, sliding scale insulin. Hypertension: Continue carvedilol Hyperlipidemia: Continue medications. Agitation/alcohol withdrawal Ativan IV as needed. Thiamine Functional constipation Continue Colace and MiraLAX. Goals of care Patient desires to be disposition to home. We will see if he is able to ambulate with PT. He may need an NIV upon discharge.
[2021-06-18] MEDS: LORazepam 2 MG/ML VIAL IV PRN (20:22)
[2021-06-18] MEDS: ATORVASTATIN 40 MG TAB PO SCH (20:23)
[2021-06-19] MEDS: LORazepam 2 MG/ML VIAL IV PRN ×2 (00:56→07:57)
[2021-06-19] MEDS: HYDROCODONE/APAP 5/325 MG TAB PO PRN ×3 (01:44→19:18)
[2021-06-19] MEDS: IPRATROPIUM BROM 0.5MG/2.5ML IH SCH ×2 (02:40→08:49)
[2021-06-19 05:17] LABS: Absolute Lymphocytes (CBC) 1.8 K/uL (0.7-4.9); Hematocrit 40.9 % (39.6-49.0); Lymphocytes % 13.9 % (15.3-44.8); MPV 9.6 fL (7.6-11.3); RBC Red Blood Cell Count 4.48 M/uL (4.33-5.43)
[2021-06-19 05:29] LABS: BUN Blood Urea Nitrogen 23 mg/dL (7-18); Bicarbonate 35 mmol/L (21-32); Glucose Level 99 mg/dL (74-106); Potassium 3.6 mmol/L (3.5-5.1); Sodium Level 140 mmol/L (136-145)
--- NOTE | 2021-06-19 06:56 | RAD REPORT ---
EXAM DESCRIPTION: RAD - Chest Single View - 06/19/2021 6:32 am CLINICAL HISTORY: Respiratory failure COMPARISON: June 15 TECHNIQUE: AP portable chest image was obtained 06/19/2021 6:32 am . FINDINGS: Prominent interstitial pattern seen in the lung vazquez slightly worse than comparison. No large masslike consolidation. Retrocardiac left base assessment is more limited. Left subclavian [address] No new tube or line. Heart and vasculature are normal. No pneumothorax or enlarging pleural effusion. Left costophrenic angle blunting remains. No acute bony abnormality seen. No acute aortic findings suspected. IMPRESSION: Interstitial opacification appears increased over comparison. Correlation is needed with any developing pulmonary edema or interstitial infiltrate findings.
[2021-06-19] MEDS: INSULIN -REGULAR HUMAN 50 UNIT/0.5 ML ML SQ SCH ×4 (07:30→21:00)
[2021-06-19] MEDS ORDERED: ZIPRASIDONE MESYLA 20 MG/VIAL IM PRN (08:38)
[2021-06-19] MEDS ORDERED: WATER FOR INJ,STERILE 10 ML IM PRN ×3 (08:38→10:40)
[2021-06-19] MEDS: POLYETHYL GLY 3350 17 GM/DOSE PO SCH ×2 (08:40→20:04)
[2021-06-19] MEDS: carvediloL 6.25 MG TAB PO SCH ×2 (08:41→20:03)
[2021-06-19] MEDS: METFORMIN HCL 500 MG TAB PO SCH (08:41)
[2021-06-19] MEDS: THIAMINE HCL 100 MG TABLET PO SCH ×2 (08:41→20:03)
[2021-06-19] MEDS: ASPIRIN 81 MG CHEWABLE TABLET PO SCH (08:41)
[2021-06-19] MEDS: DOCUSATE NA 100 MG CAP PO SCH ×2 (08:41→20:04)
[2021-06-19] MEDS: SPIRONOLACTONE 25 MG TABLET PO SCH ×2 (08:42→20:03)
[2021-06-19] MEDS: ENOXAPARIN 40 MG/0.4 ML SQ SCH (08:42)
[2021-06-19] MEDS: CLOPIDOGREL 75 MG TABLET PO SCH (08:42)
[2021-06-19] MEDS: AMOX/K CLAV 500 MG TAB PO SCH (08:48)
[2021-06-19] MEDS ORDERED: ZIPRASIDONE MESYLA 20 MG/VIAL IM ONE (10:37)
[2021-06-19] MEDS ORDERED: IPRATROPIUM BROM 0.5MG/2.5ML IH PRN (11:47)
--- NOTE | 2021-06-19 11:49 | P.PN ---
Subjective Date of Service: 06/19/21 Primary Care Provider: Unknown Chief Complaint: delirium Patient is confused and agitated at time pulling off his oxygen level delirious Review of Systems General: Weakness Respiratory: Shortness of Breath Physical Examination - Vital Signs Temperature: 97.8 F Blood Pressure: 141/88 Pulse: 82 Respirations: 20 Pulse Ox (%): 97 - Physical Exam General: Alert, Delirious Respiratory: Clear to auscultation bilaterally Cardiovascular: No edema, Regular rate/rhythm, Normal S1 S2 Gastrointestinal: Normal bowel sounds, Soft and benign Assessment And Plan - Current Problems (Diagnosis) (1) Delirium Current Visit: Yes Status: Acute Plan: Patient appears to be delirious agitated will try Geodon or Haldol avoid benzodiazepines history of alcohol abuse apparently has sleep apnea does not use a CPAP machine room air ABGs titrate sat to 90% add Brovana 1 neb twice daily Atrovent as needed
--- NOTE | 2021-06-19 14:15 | P.PN ---
Subjective Date of Service: 06/19/21 Primary Care Provider: Unknown Chief Complaint: delirium Patient has been experiencing waxing and waning agitation with confusion. He was agitated but appeared to be alert during my examination today. He has been tolerating oxygen by nasal cannula. Physical Examination - Vital Signs Temperature: 97.8 F Blood Pressure: 141/88 Pulse: 82 Respirations: 20 Pulse Ox (%): 97 - Physical Exam General: In no apparent distress HEENT: Mucous membr. moist/pink, Sclerae nonicteric Neck: JVD not distended Respiratory: Diminished Cardiovascular: Regular rate/rhythm, Normal S1 S2, Edema (Bilateral legs) Gastrointestinal: Soft and benign, Non-distended, No tenderness Musculoskeletal: No swelling Integumentary: No rashes, No cyanosis Neurological: Normal strength at 5/5 x4 extr Assessment And Plan - Plan Physical exam GEN: Intubated, sedated HEENT: Oxygen by nasal cannula CV: Regular rate and rhythm, trace bilateral pedal edema Pulm: Diminished breath sounds bilaterally, no crackles. ABD: Soft, nondistended Integumentary: No rashes Neuro: No focal motor deficit. Urogenital: cohen in place Problem List NSTEMI with history of CAD S/P pacemaker/defibrillator placement Acute on chronic hypercapnic respiratory failure secondary to RADHA/COPD Leukocytosis Diabetes type 2 [id number]-nrcicyjvy Hypertension Hyperlipidemia Alcohol withdrawal/agitation NSTEMI with history of CAD S/P pacemaker/defibrillator placement: Troponin downtrended Seen by cardiology- no immediate plans for cardiac cath, status post Heparin drip echo -decreased LV compliance, no new wall motion abnormalities Medical management-aspirin, Plavix, Coreg and Lipitor. Acute on chronic hypercapnic respiratory failure secondary to RADHA/COPD: Patient was intubated shortly after admission due to becoming less responsive, ABG significant hypercarbia Extubated today to high flow oxygen. Currently tolerating oxygen by nasal cannula. Drowsiness secondary to intermittent CO2 retention. I also suspect sedating drugs. Pulmonology is following. Steroid discontinued. Wean oxygen as tolerated. Sputum culture: Pansensitive E. coli. 1 out of 4 blood culture bottles: Coagulase-negative staph. Repeat blood culture: No growth to date. Sputum culture grew E. coli. Antibiotics transition to oral Augmentin. Continue Augmentin Continue PT. Leukocytosis Leukocytosis continue to trend down. Multifactorial secondary to steroids vs infection Status post Zosyn, vancomycin and cefepime. Vancomycin discontinued. Patient currently on oral Augmentin DM2, insulind-dependent: ACH S Accu-Chek, sliding scale insulin. Hypertension: Continue carvedilol Hyperlipidemia: Continue medications. Agitation/alcohol withdrawal/acute metabolic encephalopathy Ativan IV as needed. Geodon and Haldol as needed for agitation Continue thiamine Functional constipation Continue Colace and MiraLAX. Goals of care Patient desires to be disposition to home. He has intermittent agitation and confusion. He may be appropriate [facility].
[2021-06-19] MEDS: ARFORMOTEROL TARTRATE 15 MCG/2 ML VIAL.NEB NEB SCH (19:08)
[2021-06-19] MEDS: ATORVASTATIN 40 MG TAB PO SCH (20:03)
[2021-06-20] MEDS: LORazepam 2 MG/ML VIAL IV PRN ×2 (02:27→07:39)
[2021-06-20] MEDS: HYDROCODONE/APAP 5/325 MG TAB PO PRN ×2 (03:58→12:53)
[2021-06-20 05:03] LABS: Hematocrit 40.1 % (39.6-49.0); Lymphocytes % 16.8 % (15.3-44.8); MPV 10.1 fL (7.6-11.3); RBC Red Blood Cell Count 4.42 M/uL (4.33-5.43)
[2021-06-20 05:31] LABS: ALT/SGPT 130 U/L (12-78); AST/SGOT 70 U/L (15-37); Albumin 2.8 g/dL (3.4-5.0); Alkaline Phosphatase 81 U/L (45-117); BUN Blood Urea Nitrogen 20 mg/dL (7-18); Bicarbonate 33 mmol/L (21-32); Bilirubin Total 0.5 mg/dL (0.2-1.0); Glucose Level 128 mg/dL (74-106); Potassium 3.4 mmol/L (3.5-5.1); Protein, Total 7.3 g/dL (6.4-8.2); Sodium Level 138 mmol/L (136-145)
[2021-06-20] MEDS: ZIPRASIDONE MESYLA 20 MG/VIAL IM PRN ×2 (05:39→13:45)
[2021-06-20] MEDS ORDERED: POTASSIUM CL SA 10 MEQ TAB PO ONE ×2 (06:53→06:58)
[2021-06-20] MEDS: INSULIN -REGULAR HUMAN 50 UNIT/0.5 ML ML SQ SCH ×4 (07:30→20:54)
[2021-06-20] MEDS: ARFORMOTEROL TARTRATE 15 MCG/2 ML VIAL.NEB NEB SCH ×2 (07:48→19:18)
[2021-06-20 08:08] LABS: Arterial Blood Carboxyhemoglob 1.1 % (0-1.5); Blood Gas Oxyhemoglobin 85.5 % (94-97); Blood O2 Saturation 87.2 % (92-98.5)
[2021-06-20] MEDS: ENOXAPARIN 40 MG/0.4 ML SQ SCH (09:34)
[2021-06-20] MEDS: ASPIRIN 81 MG CHEWABLE TABLET PO SCH (09:35)
[2021-06-20] MEDS: DOCUSATE NA 100 MG CAP PO SCH ×2 (09:35→21:00)
[2021-06-20] MEDS: carvediloL 6.25 MG TAB PO SCH ×2 (09:35→21:13)
[2021-06-20] MEDS: THIAMINE HCL 100 MG TABLET PO SCH ×2 (09:35→21:13)
[2021-06-20] MEDS: CLOPIDOGREL 75 MG TABLET PO SCH (09:35)
[2021-06-20] MEDS: METFORMIN HCL 500 MG TAB PO SCH ×3 (09:35→17:00)
[2021-06-20] MEDS: POLYETHYL GLY 3350 17 GM/DOSE PO SCH ×2 (09:36→21:00)
[2021-06-20] MEDS: SPIRONOLACTONE 25 MG TABLET PO SCH ×2 (09:36→21:13)
--- NOTE | 2021-06-20 12:16 | P.PN ---
Subjective Date of Service: 06/20/21 Primary Care Provider: Unknown Chief Complaint: delirium Pt continues to remain confused and agitated Review of Systems is unable to be obtained Physical Examination - Vital Signs Temperature: 95.6 F Blood Pressure: 114/81 Pulse: 71 Respirations: 21 Pulse Ox (%): 91 - Physical Exam General: Unresponsive Respiratory: Clear to auscultation bilaterally, Diminished Cardiovascular: No edema, Regular rate/rhythm Assessment And Plan - Current Problems (Diagnosis) (1) Delirium Current Visit: Yes Status: Acute Plan: NC pt confused and agitated requiring sedation/ Eating and drinking
--- NOTE | 2021-06-20 14:38 | P.PN ---
Subjective Date of Service: 06/20/21 Primary Care Provider: Unknown Chief Complaint: delirium Subjective: No new changes (Still intermittently confused Still requiring BiPAP overnight Awake this morning, wants to go home) Physical Examination - Vital Signs Temperature: 95.6 F Blood Pressure: 114/81 Pulse: 71 Respirations: 21 Pulse Ox (%): 91 Assessment And Plan Physician Review: Patient Assessed, Agree with Above Assessment and Plan Physician Review Additional Text: 06/20/21 14:35 Physical exam GEN: Awake, on nasal cannula O2, HEENT: Oxygen by nasal cannula CV: Regular rate and rhythm, trace bilateral pedal edema Pulm: Diminished breath sounds bilaterally, no crackles. ABD: Soft, nondistended Integumentary: No rashes Neuro: No focal motor deficit. Conversant Problem List NSTEMI with history of CAD S/P pacemaker/defibrillator placement Acute on chronic hypercapnic respiratory failure secondary to RADHA/COPD Leukocytosis Diabetes type 2 [id number] Hypertension Hyperlipidemia Alcohol withdrawal/agitation NSTEMI with history of CAD S/P pacemaker/defibrillator placement: Troponin downtrended Seen by cardiology- no immediate plans for cardiac cath, status post Heparin drip echo -decreased LV compliance, no new wall motion abnormalities Medical management-aspirin, Plavix, Coreg and Lipitor. Acute on chronic hypercapnic respiratory failure secondary to RADHA/COPD: Patient was intubated shortly after admission due to becoming less responsive, ABG significant hypercarbia, extubated now, still not under BiPAP use PCO2 this a.m. on room air at 50 mmHg, continue nasal cannula O22 L Continue as needed nocturnal BiPAP use Pulmonary following, off steroids now Wean oxygen as tolerated. Sputum culture: Pansensitive E. coli. 1 out of 4 blood culture bottles: Coagulase-negative staph. Repeat blood culture: No growth to date. Sputum culture grew E. coli. Antibiotics transition to oral Augmentin. Continue Augmentin Continue PT. Leukocytosis Leukocytosis continue to trend down. Multifactorial secondary to steroids vs infection Status post Zosyn, vancomycin and cefepime. Vancomycin discontinued. Patient currently on oral Augmentin DM2, insulind-dependent: ACH S Accu-Chek, sliding scale insulin. Hypertension: Continue carvedilol Hyperlipidemia: Continue medications. Agitation/alcohol withdrawal/acute metabolic encephalopathy Ativan IV as needed. Geodon and Haldol as needed for agitation Continue thiamine Functional constipation Continue Colace and MiraLAX. Goals of care Follow-up plan for [facility]. Time Spent Managing PTS Care (In Minutes): 35
[2021-06-20] MEDS: ATORVASTATIN 40 MG TAB PO SCH (21:13)
[2021-06-21] MEDS: HYDROCODONE/APAP 5/325 MG TAB PO PRN ×3 (00:53→16:56)
[2021-06-21] MEDS: ZIPRASIDONE MESYLA 20 MG/VIAL IM PRN (03:36)
[2021-06-21 05:24] LABS: ALT/SGPT 127 U/L (12-78); AST/SGOT 73 U/L (15-37); Albumin 2.8 g/dL (3.4-5.0); Alkaline Phosphatase 83 U/L (45-117); BUN Blood Urea Nitrogen 14 mg/dL (7-18); Bicarbonate 32 mmol/L (21-32); Bilirubin Total 0.4 mg/dL (0.2-1.0); Glucose Level 137 mg/dL (74-106); Potassium 3.7 mmol/L (3.5-5.1); Protein, Total 7.1 g/dL (6.4-8.2); Sodium Level 140 mmol/L (136-145)
[2021-06-21] MEDS: INSULIN -REGULAR HUMAN 50 UNIT/0.5 ML ML SQ SCH ×4 (07:30→20:17)
[2021-06-21] MEDS: ARFORMOTEROL TARTRATE 15 MCG/2 ML VIAL.NEB NEB SCH ×2 (08:00→19:25)
[2021-06-21] MEDS: METFORMIN HCL 500 MG TAB PO SCH ×2 (08:06→17:00)
[2021-06-21] MEDS: ASPIRIN 81 MG CHEWABLE TABLET PO SCH (08:06)
[2021-06-21] MEDS: carvediloL 6.25 MG TAB PO SCH ×2 (08:06→20:12)
[2021-06-21] MEDS: CLOPIDOGREL 75 MG TABLET PO SCH (08:06)
[2021-06-21] MEDS: THIAMINE HCL 100 MG TABLET PO SCH ×2 (08:06→20:12)
[2021-06-21] MEDS: SPIRONOLACTONE 25 MG TABLET PO SCH ×2 (08:07→20:12)
[2021-06-21] MEDS: ENOXAPARIN 40 MG/0.4 ML SQ SCH (08:07)
[2021-06-21] MEDS: DOCUSATE NA 100 MG CAP PO SCH ×2 (08:07→20:12)
[2021-06-21] MEDS: POLYETHYL GLY 3350 17 GM/DOSE PO SCH ×2 (08:07→20:12)
[2021-06-21] MEDS ORDERED: NICOTINE 14 MG/PAT TD SCH (09:00)
--- NOTE | 2021-06-21 09:18 | P.PN ---
Subjective Date of Service: 06/21/21 Primary Care Provider: Unknown Chief Complaint: delirium Subjective: No new changes (Weaned off BiPAP now Weaned off oxygen today, saturating well on room air Still anxious to go home) Physical Examination - Vital Signs Temperature: 98.3 F Blood Pressure: 140/73 Pulse: 77 Respirations: 24 Pulse Ox (%): 92 Assessment And Plan Physician Review: Patient Assessed, Agree with Above Assessment and Plan Physician Review Additional Text: 06/20/21 14:35 Physical exam GEN: Awake, conversant HEENT: Oxygen by nasal cannula CV: Regular rate and rhythm, trace bilateral pedal edema Pulm: Diminished breath sounds bilaterally, no crackles. ABD: Soft, nondistended Integumentary: No rashes Neuro: No focal motor deficit. Conversant Problem List NSTEMI with history of CAD S/P pacemaker/defibrillator placement Acute on chronic hypercapnic respiratory failure secondary to RADHA/COPD Leukocytosis Diabetes type 2 [id number] Hypertension Hyperlipidemia Alcohol withdrawal/agitation NSTEMI with history of CAD S/P pacemaker/defibrillator placement: Troponin downtrended Seen by cardiology- no immediate plans for cardiac cath, status post Heparin drip echo -decreased LV compliance, no new wall motion abnormalities Medical management-aspirin, Plavix, Coreg and Lipitor. Acute on chronic hypercapnic respiratory failure secondary to RADHA/COPD: Patient was intubated shortly after admission due to becoming less responsive, ABG significant hypercarbia, extubated now, still not under BiPAP use PCO2 this a.m. on room air at 50 mmHg, continue nasal cannula O22 L Continue as needed nocturnal BiPAP use Pulmonary following, off steroids now Wean oxygen as tolerated. Sputum culture: Pansensitive E. coli. 1 out of 4 blood culture bottles: Coagulase-negative staph. Repeat blood culture: No growth to date. Sputum culture grew E. coli. Antibiotics transition to oral Augmentin. Continue Augmentin Continue PT. Leukocytosis Leukocytosis continue to trend down. Multifactorial secondary to steroids vs infection Status post Zosyn, vancomycin and cefepime. Vancomycin discontinued. Patient currently on oral Augmentin DM2, insulind-dependent: ACH S Accu-Chek, sliding scale insulin. Hypertension: Continue carvedilol Hyperlipidemia: Continue medications. Agitation/alcohol withdrawal/acute metabolic encephalopathy Ativan IV as needed. Geodon and Haldol as needed for agitation Continue thiamine Functional constipation Continue Colace and MiraLAX. Goals of care Awaiting acceptance at [facility] 06/21/21 09:17
[2021-06-21] MEDS: IPRATROPIUM BROM 0.5MG/2.5ML IH PRN (19:25)
[2021-06-21] MEDS: ATORVASTATIN 40 MG TAB PO SCH (20:12)
[2021-06-22 02:40] VITALS: O2SAT 98
[2021-06-22] MEDS: HYDROCODONE/APAP 5/325 MG TAB PO PRN (04:29)
[2021-06-22 05:36] LABS: ALT/SGPT 110 U/L (12-78); AST/SGOT 53 U/L (15-37); Albumin 2.7 g/dL (3.4-5.0); Alkaline Phosphatase 77 U/L (45-117); BUN Blood Urea Nitrogen 15 mg/dL (7-18); Bicarbonate 30 mmol/L (21-32); Bilirubin Total 0.4 mg/dL (0.2-1.0); Glucose Level 125 mg/dL (74-106); Potassium 3.5 mmol/L (3.5-5.1); Protein, Total 6.7 g/dL (6.4-8.2); Sodium Level 140 mmol/L (136-145)
[2021-06-22] MEDS ORDERED: POTASSIUM CL SA 10 MEQ TAB PO ONE (06:05)
[2021-06-22 06:15] VITALS: BP 124/61
[2021-06-22] MEDS: IPRATROPIUM BROM 0.5MG/2.5ML IH PRN (07:55)
[2021-06-22] MEDS: ARFORMOTEROL TARTRATE 15 MCG/2 ML VIAL.NEB NEB SCH (07:55)
[2021-06-22] MEDS ORDERED: AMIODARONE HCL 200 MG TAB PO SCH (09:00)
[2021-06-22 09:03] VITALS: TEMP 98
--- NOTE | 2021-06-22 11:19 | P.PN ---
Date of Service: 06/22/21 Patient anxious to leave, PT felt the patient is unsteady with gait. Patient spouse unwilling to take patient home. Patient refusing acute rehab. He has been weaned off O2 and satting well. Issues delayed discharge remains ambulatory issues. Patient unwilling to stay and signed out AMA
== END 2021-06-22 08:45 | disposition left against medical advice (07) | DRG 207 ==
LOC: ER 17:38 → ERHOLD 06-06 00:51 → 3RD-ICU 06-06 00:57
PROVIDERS: ADMIT Internal Medicine; ATTEND Internal Medicine
PROC: 5A1955Z Respiratory Ventilation, Greater than 96 Consecutive Hours (ICD-10-PCS; principal; 2021-06-06)
PROC: 0BH17EZ Insertion of Endotracheal Airway into Trachea, Via Natural or Artificial Opening (ICD-10-PCS; 2021-06-06)
DX: J96.22 Acute and chronic respiratory failure with hypercapnia (principal); I21.4 Non-ST elevation (NSTEMI) myocardial infarction; E66.2 Morbid (severe) obesity with alveolar hypoventilation; Z68.41 Body mass index [BMI] 40.0-44.9, adult; J44.1 Chronic obstructive pulmonary disease with (acute) exacerbation; F10.131 Alcohol abuse with withdrawal delirium; J96.21 Acute and chronic respiratory failure with hypoxia; E78.5 Hyperlipidemia, unspecified; I25.10 Atherosclerotic heart disease of native coronary artery without angina pectoris; K59.04 Chronic idiopathic constipation; E11.9 Type 2 diabetes mellitus without complications; J45.909 Unspecified asthma, uncomplicated; D72.829 Elevated white blood cell count, unspecified; R45.1 Restlessness and agitation; B96.20 Unspecified Escherichia coli [E. coli] as the cause of diseases classified elsewhere; Z88.0 Allergy status to penicillin; Z88.1 Allergy status to other antibiotic agents; Z86.73 Personal history of transient ischemic attack (TIA), and cerebral infarction without residual deficits; Z78.1 Physical restraint status; Z95.5 Presence of coronary angioplasty implant and graft; Z95.810 Presence of automatic (implantable) cardiac defibrillator; Z79.82 Long term (current) use of aspirin; Z79.02 Long term (current) use of antithrombotics/antiplatelets; Z79.84 Long term (current) use of oral hypoglycemic drugs; Z79.899 Other long term (current) drug therapy; Z87.891 Personal history of nicotine dependence; Z79.4 Long term (current) use of insulin; Z53.29 Procedure and treatment not carried out because of patient's decision for other reasons; Z20.822 Contact with and (suspected) exposure to COVID-19
CPT/HCPCS: 0240U; 36415; 71045; 71275; 80048; 80053; 80061; 80076; 80202; 81003; 82805; 82947; 83735; 83880; 84100; 84145; 84439; 84443; 84484; 85025; 85027; 85610; 85730; 86140; 87040; 87070; 87077; 87186; 87205; 93005; 93306; 94002; 94003; 94640; 94660; 94760; 96374; 96375; 97110; 97112; 97116; 97161; 97530; 99285; J0330; J0692; J1170; J1630; J1644; J1650; J1940; J2270; J2405; J2543; J2704; J2920; J3010; J3370; J3475; J3480; J3486; J7040; J7605; Q9967

== ENCOUNTER 2023-03-17 15:08 | Observation (INO) | payer OTHER ==
[2023-03-17 15:44] LABS: Absolute Lymphocytes (CBC) 2.6 K/uL (0.7-4.9); Hematocrit 45.2 % (39.6-49.0); Lymphocytes % 14.5 % (15.3-44.8); MCV 93.2 fL (80-100); MPV 9.3 fL (7.6-11.3); Platelets 190 thou/uL (152-406); RBC Red Blood Cell Count 4.85 M/uL (4.33-5.43)
--- OUTSIDE RECORDS SUMMARY | 2023-03-17 15:48 | XMS REPORT | Continuity of Care Document ---
:1970 Author Organization [facility] t Address [address] [place] [address] Support Name Relationship Address Phone HANNA CARRERORI Spouse Unavailable Unavailable CRISTHIAN RAMIREZ E [address] [phone] [place] [address] PINEDA RAMIREZ [address] [phone] [place] [address] Magan Cristhian Spouse [address] [place] [phone] Unavailable Unavailable Unavailable Unavailable CRISTHIAN RAMIREZ X [address] [place] [address] (Ex ) Gris Ramirez Other [address] [place] [phone] ASHLEY LORY E Unavailable JAIME RAMIREZ E [address] [place] [address] CRISTHIAN CARRERO X [address] Un available [place] [phone] Cristhian Joy Spouse [address] [phone] [place] [phone] Jaime Leonard Child [address] [place] [address] [place] [address] FM 2003 # 4 Unavail able [place] [phone] Jennifer Magan Cristhian Spouse [id number] FM 2004 # 4 [place] [phone] Kyle Ramirez Child Unavailable CRISTHIAN CARRERO X [address] [place] [address] Cristhian Joy Spouse [address] [phone] [place] [address] CRISTHIAN CARRERO X [address] [place] [address] Jennifer Carrero, Cristhian Spouse [phone] [place] [address] CRISTHIAN CARRERO X [address] [place] [address] Jennifer Carrero, Cristhian Spouse [address] [phone] [place] [address] Care Team Providers Name Role Phone Pressa Primary Care Physician Unavailable DOUGLAS HERNANDEZ Attending Clinician Unavailable [id number] Attending Clinician Unavailable KAREN CALLE Attending Clinician Unavailable KAREN CALLE Attending Clinician Unavailable JUANA KEMP K.H. Attending Clinician Unavailable TYRA COX Attending Clinician Unavailable Tyra Martinez Attending Clinician NATALI WEAVER Attending Clinician Unavailable Natali Weaver DO Attending Clinician MARILOU DARDEN Attending Clinician Unavailable Marilou Darden DO Attending Clinician Lamar Cain MD Attending Clinician LAMAR CAIN Attending Clinician Unavailable Doctor Unassigned, [place] Attending Clinician Unavailable Lab, Ang - Db Attending Clinician Unavailable Pineda Rosario MD Attending Clinician Mary Grace Craft RN Attending Clinician Unavailable Justo RAMÍREZ, Sendjohnathan K.H. Attending Clinician Douglas Hernandez MD Attending Clinician Denisha Garcia MD Attending Clinician NEPTALI UP Attending Clinician Unavailable Neptali Up PA-C Attending Clinician Unknown, Attending Attending Clinician Unavailable DENISHA GARCIA Attending Clinician Unavailable Moe Jackson Attending Clinician MOE WANG Attending Clinician Unavailable Casandra Barba DO Attending Clinician CLIFTON POLLARD Attending Clinician Unavailable CLIFTON POLLARD Attending Clinician Unavailable MALI GALLAGHER Attending Clinician Unavailable Mali Gallagher MD Attending Clinician MARCELO KAMARA Attending Clinician Unavailable Angelito Chacon MD Attending Clinician Marcelo Kamara MD Attending Clinician ERASMO OCAMPO Attending Clinician Unavailable Erasmo Ocampo DO Attending Clinician PASQUALE GARCIAS Attending Clinician Unavailable Pasquale Garcias MD Attending Clinician Unassigned, Cath/Ep Attending Clinician Unavailable ERASMO WANG Attending Clinician Unavailable Erasmo Wang MD Attending Clinician RIAN NARVAEZ Attending Clinician Unavailable CASANDRA BARBA Attending Clinician Unavailable CASANDRA BARBA Attending Clinician Unavailable ANGELITO CHACON Attending Clinician Unavailable Dmitry Jha MD Attending Clinician Erin Mar MD Attending Clinician ERICK GODINEZ Attending Clinician Unavailable Erick Godinez MD Attending Clinician RYAN DOAN Attending Clinician Unavailable ADITYA LOPEZ Attending Clinician Unavailable Aditya Lopez MD Attending Clinician Valeria Antunez LMSW Attending Clinician ERIN MAR Attending Clinician Unavailable ERIN MAR Attending Clinician Unavailable STONE LINDSEY Attending Clinician Unavailable STONE LINDSEY Attending Clinician Unavailable MACARIO WETZEL Attending Clinician Unavailable Nathalie Reyna RN Attending Clinician Unavailable Zen Hedrick MD Attending Clinician MASSIMO SALAZAR Attending Clinician Unavailable JOVANY ANDREW Attending Clinician Unavailable VERONICA LEIGH Attending Clinician Unavailable Maura Cottrell RN Attending Clinician Jerry Pfeiffer MD Attending Clinician RUPA TOMLIN Attending Clinician Unavailable JONATHON PACKER Attending Clinician Unavailable Jonathon Packer APN Attending Clinician CYNDIE WATTERS Attending Clinician Unavailable Shar RAMÍREZ, Florence Lyons Attending Clinician [phone] Cyndie Watters DO Attending Clinician IFEOMA GARCIA Attending Clinician Unavailable Garcia PAC, Ifeoma S Attending Clinician Rocio RAMÍREZ, Wang Attending Clinician PINEDA ROSARIO Attending Clinician Unavailable Graciela ZENG, Misael Adamson Attending Clinician Unavailable MILO BRADLEY Attending Clinician Unavailable Tabitha RAMÍREZ, Milo Toro Attending Clinician Su RAMÍREZ, Barber Beavers Attending Clinician SYLVIE RODRIGUEZ Attending Clinician Unavailable Kumar RAMÍREZ, Yamini Attending Clinician Marquez ZENG, Herlinda Adamson Attending Clinician Unavailable Manju Mazariegos Attending Clinician MORGAN MO Attending Clinician Unavailable Rich Patiño DO Attending Clinician Morgan Mo MD Attending Clinician 1, [facility] Sleep Lab Bed Attending Clinician Unavailable Only, [facility] Test Attending Clinician Unavailable LALITHA LONG Attending Clinician Unavailable RICH PATIÑO Attending Clinician Unavailable Hailee Podn Attending Clinician Emerald Bryant MD Attending Clinician Parish Tavarez MD Attending Clinician FERNANDA CHOU Attending Clinician Unavailable Radiology Attending Clinician Unavailable RADIOLOGY Attending Clinician Unavailable Jose Juan Joseph MD, Melisa Attending Clinician Rufus Evans DO Attending Clinician BRENDA LOPEZ Attending Clinician Unavailable DR DANNA IVEY Attending Clinician Unavailable Sherry Wheeler Attending Clinician Michael Turner Attending Clinician Duane Beck Attending Clinician Oleg Davis Attending Clinician [phone] Rufus Evans Attending Clinician Terrell Reynolds Jr Attending Clinician DOUGLAS HERNANDEZ Admitting Clinician Unavailable [id number] Admitting Clinician Unavailable MARILOU DARDEN Admitting Clinician Unavailable LAMAR CAIN Admitting Clinician Unavailable Lamar Cain MD Admitting Clinician MALI GALLAGHER Admitting Clinician Unavailable ANGELITO CHACON Admitting Clinician Unavailable Angelito Chacon MD Admitting Clinician ERASMO OCAMPO Admitting Clinician Unavailable PASQUALE GARCIAS Admitting Clinician Unavailable ERASMO WANG Admitting Clinician Unavailable CLIFTON POLLARD Admitting Clinician Unavailable ERICK GODINEZ Admitting Clinician Unavailable ADITYA LOPEZ Admitting Clinician Unavailable Aditya Lopez MD Admitting Clinician MARCELO KAMARA Admitting Clinician Unavailable Marcelo Kamara MD Admitting Clinician JONATHON PACKER Admitting Clinician Unavailable CYNDIE WATTERS Admitting Clinician Unavailable Cyndie Watters DO Admitting Clinician IFEOMA GARCIA Admitting Clinician Unavailable RICH PATIÑO Admitting Clinician Unavailable Rich Patiño DO Admitting Clinician PARISH TAVAREZ Admitting Clinician Unavailable Parish Tavarez MD Admitting Clinician Rufus Evans DO Admitting Clinician DR DANNA IVEY Admitting Clinician Unavailable Sherry Wheeler Admitting Clinician Samantha Thakkar Admitting Clinician Owen Cunningham Admitting Clinician Oleg Davis Admitting Clinician Michael Turner Admitting Clinician Rufus Evans Admitting Clinician Terrell Reynolds Jr Admitting Clinician Payers Payer Name Policy Type Policy Number Effective Date Expiration Date S ana SAUCEDA BCBS BLUE [id number] 2022 ADVANTAGE HMO 00:00:00 [place] [id number] 2022 00:00:00 BCTZ BCTZ [id number] FORMERLY [facility] [id number] 2023 PLUS 00:00:00 [facility] [id number] 2016 FDC 00:00:00 Problems Condition Condition Condition Status Onset Resolution Last Treating Co mments Source Name Details Category Date Date Treatment Clinician Date Painful Painful Disease Active Univers orthopaedi orthopaedi 8-14 it y of c hardware c [place] [facility] Coronary Coronary Disease Active Unive rs artery artery 5-18 ity of disease disease 00:00: [place] involving involving 00 [facility] pablito solomon solomon Branch coronary coronary artery of artery of solomon solomon heart with heart with angina angina pectoris pectoris Chronic Chronic Disease Active Univers obstructiv obstructiv 5-18 it y of e e 00:00: [place] pulmonary pulmonary 00 Medi pablito disease, disease, Branch unspecifie unspecifie d COPD d COPD type type SOB SOB Disease Active Univers (shortness (shortness 4-07 it y of of breath) of breath) [place] [facility] Chest pain Chest pain Disease Active 2021-05 U nivers 1-22 ity of 00:00: [place] 00 [facility] Hypotensio Hypotensio Disease Active U nivers n n 8-01 ity of 00:00: [place] 00 [facility] TAYLOR TAYLOR Disease Active Univers (dyspnea (dyspnea 7-10 ity of on on 00:00: [place] exertion) exertion) 00 Medi pablito Branch Visual Visual Disease Active Univers disturbanc disturbanc 6-02 it y of e e 00:00: [place] 00 [facility] Chronic Chronic Disease Active Univers diastolic diastolic 6-02 ity of heart heart 00:00: [place] failure failure 00 Medical Branch RANDY (acute RANDY (acute Disease Active U ingrid kidney kidney 6-02 ity of injury) injury) 00:00: [place] 00 [facility] Chest Chest Disease Active Univers pain, pain, 6- ity of unspecifie unspecifie 00:[place] type d type 00 [facility] Dyslipidem Dyslipidem Disease Active U guanakitoers ia ia 5-12 ity of 00:00: [place] 00 [facility] Unsteady Unsteady Disease Active Unive rs gait gait 5-11 ity of 00:00: [place] [facility] Coronary Coronary Disease Active Unive rs artery artery 3-25 ity of disease disease 00:00: [place] involving involving 00 Medi pablito solomon solomon Branch coronary coronary artery of artery of solomon solomon heart heart without without angina angina pectoris pectoris Pacemaker Pacemaker Disease Active Uni vers 3-25 ity of 00:00: [place] [facility] Coronary Coronary Disease Active Unive rs artery artery 3-25 ity of disease disease 00:00: [place] involving involving 00 Medi pablito solomon solomon Branch coronary coronary artery of artery of solomon solomon heart heart without without angina angina pectoris pectoris Pulmonary Pulmonary Disease Active Uni vers embolism embolism 3-09 ity of on right on right 00:00: [place] 00 [facility] RADHA RADHA Disease Active 2020-05 Univers (obstructi (obstructi 2-29 it y of ve sleep ve sleep 00:00: [place] apnea) apnea) 00 Medical Branch Morbid Morbid Disease Active 2020-05 Univers obesity obesity 2-29 ity of with body with body 00:[place] mass index mass index 00 Me dical of of Branch 40.0-49.9 40.0-49.9 Dizziness Dizziness Disease Active 2020-05 Uni vers 0-19 ity of 00:00: [place] 00 [facility] Acute on Acute on Disease Active 2020-05 Unive rs chronic chronic 0-19 ity of diastolic diastolic 00:[place] CHF CHF 00 Medical (congestiv (congestiv Br anch e heart e heart failure), failure), NYHA class NYHA class 3 3 Acute Acute Disease Active 2020-05 Univers right-side right-side 0-18 it y of d CHF d CHF 00:00: [place] (congestiv (congestiv 00 Me dical e heart e heart Branch failure) failure) Neck pain Neck pain Disease Active Uni vers - ity of 00:00: [place] [facility] 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 00 Medica l Branch Dependence Dependence Disease Active U nivers on on 01-25 ity of supplement supplement 00:[place] oxygen al oxygen 00 [facility] pablito Branch Insomnia Insomnia Disease Active Unive rs - ity of 00:00: [place] [facility] Low back Low back Disease Active Unive rs pain pain 01-25 ity of 00:00: [place] [facility] Spasm of Spasm of Disease Active Unive rs back back 01-25 ity of muscles muscles 00:00: [place] [facility] Obesity Obesity Disease Active Univers with body with body 9-16 ity of mass index mass index 00:[place] 30 [place] 30 or 00 Medical greater greater Branch Respirator Respirator Disease Active U nivers y failure y failure 9-15 ity of 00:00: [place] [facility] History of History of Disease Active U nivers fusion of fusion of 9-13 ity of cervical cervical 00:00: [place] spine spine 00 Medical Branch 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 9-13 it y of s s 00:00: [place] [facility] 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 00:00: [place] [facility] Atypical Atypical Disease Active Unive rs chest pain chest pain 8-10 it y of 00:00: [place] [facility] COPD COPD Disease Active Univers exacerbati exacerbati 7-26 it y of on on 00:00: [place] [facility] Moderate Moderate Disease Active Unive rs chronic chronic 7-22 ity of obstructiv obstructiv 00:[place] 00 Medical pulmonary pulmonary Bran ch disease disease COPD with COPD with Disease Active Uni vers acute acute 7-22 ity of exacerbati exacerbati 00:[place] COPD with COPD with Disease Active Uni vers exacerbati exacerbati 7-20 it y of on on 00:00: [place] [address] Medical Branch Obesity Obesity Disease Active Univers (BMI (BMI 5-06 ity of 30-39.9) 30-39.9) 00:00: [place] [address] Medical Branch Primary Primary Disease Active Overview: Univ ers osteoarthr osteoarthr 4-20 Formattin ity of itis of itis of 00:00: g of this [place] right right 00 note Medical wrist wrist might be Branch different from the original. Added automatic ally from request for surgery [id number] Essential Essential Disease Active Uni vers hypertensi hypertensi 2-19 it y of on on 00:00: [place] [address] Medical Branch SOB SOB Diagnosis Active 2016-05-28 Mem oria Active 05-24 08:49:00 l 05/24/2016 00:00: Avni armenta [address] STROKE STROKE Diagnosis Active 2016-01-22 Me moria Active 01-18 08:02:00 l 01/19/2016 00:00: Avni armenta [address] LALITHA LALITHA Diagnosis Active 2014-052015-04-04 Marimar BILLING BILLING 06-05 12:06:00 l ONLY ONLY 00:00: Anibal [id number] LF#[id number] Active 04/04/2015 [facility] [place] [facility] SEIZURES SEIZURES Diagnosis Active 2014-052015-03-30 Memoria Active 05-30 10:49:00 l 03/30/2015 00:00: Avni armenta [address] PNEUMONIA/ PNEUMONIA Diagnosis Active 2014-052015-05-15 Memoria URINARY /URINARY 0- 10:23:00 l TRACT TRACT 00:00: [place] INFECTION INFECTION 00 Active 02/12/2015 [facility] SEIZURES SEIZURES Diagnosis Active 2014-12-13 Memoria NARCOLIC NARCOLIC 12-11 16:03:00 l INTOXICATI INTOXICATI 00:00: Grabiel jesusann ON ON Active 00 12/11/2014 [facility] [place] [facility] SEIZURE, SEIZURE, Diagnosis Active 2016-05-14 Memandrey TODDS TODDS 10-26 08:47:00 l PARALYSIS PARALYSIS 00:00: Herm carlo Active 00 10/26/2014 [facility] POSS POSS Diagnosis Active 2014-10-26 Mem oria SEIZURES SEIZURES 10-26 17:58:00 l Active 00:00: Anibal 10/26/2014 00 [facility] LIFE LIFE Diagnosis Active 2014-07-19 Mem oria FLIGHT FLIGHT 07-19 19:50:00 l Active 00:00: Anibal 07/19/2014 00 [facility] [place] [facility] AMS AMS Diagnosis Active 2014-07-20 Mem oria Active 07-19 02:25:00 l 07/19/2014 00:00: Avni armenta [address] TODDS TODDS Diagnosis Active 2014-07-27 Mem oria PARALYSIS PARALYSIS 07-19 13:07:00 l Active 00:00: Anibal 07/19/2014 00 [facility] [place] [facility] Seizures Se[facility] [place] Headache Headache Disease [facility] [place] Complicate Complicate Disease Active [facility] d migraine d migraine 1-29 Georgette kes 00:00: Medical 00 [place] Altered Altered Disease Active [facility] status status 00:00: Medical 00 [place] LEFT LOWER LEFT Diagnosis Active 2012-06-22 Memoria BACK PAIN LOWER BACK 06-22 13:10:00 l PAIN 00:00: [place] Active 00 06/22/2012 [facility] [place] [facility] VIRAL VS VIRAL VS Diagnosis Active 2011-07-10 Memoria PNEUMONIA PNEUMONIA 07-08 13:09:00 l SOB SOB 00:00: Anibal Active 00 07/09/2011 [facility] [place] [facility] NECK PAIN NECK PAIN Diagnosis Active 2009-052012-07-16 Memoria Active 05-16 13:00:00 l 03/16/2010 00:00: Avni armenta [address] Final: Final: Problem 2015-02-18 Gerson ruddy Pneumonia, Pneumonia, 07:57:35 l unspecifie unspecifie Grabiel villareal d organism d organism 5 [facility] Degenera Degenerat Problem Resolve 2012-06-24 Memoria ve disc laila disc d 11:43:02 l disease disease Anibal Resolved Problem 06/24/2012 [facility] [place] [facility] Emphysema Emphysema Problem Resolve 2012-06-24 Memoria Resolved d 11:43:02 l Problem Anibal 06/24/2012 [facility] [place] [facility] HTN - HTN - Problem Resolve 2012-06-24 Gerson ruddy Hypertensi Hypertensi d 11:43:02 l on on [place] Resolved Problem 06/24/2012 [facility] [place] [facility] Meningitis Meningiti Problem Resolve 2012-06-24 Memoria s Resolved d 11:43:02 l Problem Anibal 06/24/2012 <sup>1</kelley p>spinal a a child [facility] [place] [facility] Slipped Slipped Problem Resolve 2012-06-24 M emoria disc disc d 11:43:02 l Resolved [place] Problem 06/24/2012 <sup>2</kelley p>in neck-- repaired [facility] [place] [facility] Emphysema Emphysema Problem Resolve 2016-01-23 Memoria (morpholog (morpholog d 00:57:26 l ic ic [place] abnormalit abnormalit y) y) Resolved Problem 01/23/2016 [facility], [facility] Cardiomega Cardiomeg Problem Resolve 2016-05-28 Memoria ly vishal d 02:08:50 l (disorder) (disorder) He rmann Resolved Problem 05/28/2016 [facility], [facility] Intracrani Intracran Problem Resolve 2016-05-28 Memoria al ial d 02:08:50 l hemorrhage hemorrhage He rmann (disorder) (disorder) Resolved Problem 05/28/2016 [facility] Degenerati Degenerat Problem Resolve 2016-05-28 Memoria on of ion of d 02:08:50 l interverte interverte He rmann bral disc bral disc (disorder) (disorder) Resolved Problem 05/28/2016 [facility], [facility] Diabetes Diabetes Problem Resolve 2016-05-28 Memoria mellitus mellitus d 02:08:50 l (disorder) (disorder) He rmann Resolved Problem 05/28/[address] [facility] Hypertensi Hypertens Problem Resolve 2016-05-28 Memoria ve laila d 02:08:50 l disorder, disorder, Herm carlo systemic systemic arterial arterial (disorder) (disorder) Resolved Problem 05/28/2016 [facility] [place] [facility], [facility] Meningitis Problem Resolve 2016-05-28 Memoria (disorder) Meningitis d 02:08:50 l (disorder) Avni armenta Resolved Problem 05/28/2016 spinal a a child [facility] [place] [facility], [facility] Interverte Intervert Problem Resolve 2016-05-28 Memoria bral disc ebral disc d 02:08:50 l prolapse prolapse Avni armenta (disorder) (disorder) Resolved Problem 05/28/2016 in neck-- repaired [facility] [place] [facility], [facility] Traumatic Traumatic Problem Resolve 2016-05-28 Memoria brain brain d 02:08:50 l injury injury [place] (disorder) (disorder) Resolved Problem 05/28/2016 [facility] [place] [facility] Shortness Shortness Problem Active 2012-06-24 Memoria of breath of breath 11:43:02 l Active Anibal Problem 06/24/2012 [facility] [place] [facility] SHORTNESS SHORTNESS Diagnosis Active 2011-07-10 Memoria OF BREATH OF BREATH 13:09:00 l Active [facility] [place] [facility] FEBRILE FEBRILE Diagnosis Active 2014-12-13 Memoria CONVULSION CONVULSION 16:03:00 l S NOS S NOS Anibal Active [facility] [place] [facility] CEREBRAL CEREBRAL Diagnosis Active 2016-01-22 Memoria INFARCTION INFARCTION 08:02:00 l , , Anibal UNSPECIFIE UNSPECIFIE D D Active [facility] [place] [facility] PNEUMONIA, PNEUMONIA Diagnosis Active 2015-05-15 Memoria UNSPECIFIE , 10:23:00 l D ORGANISM UNSPECIFIE He rmann D ORGANISM Active [facility] URINARY URINARY Diagnosis Active 2015-05-15 Memoria TRACT TRACT 10:23:00 l INFECTION, INFECTION, He rmann SITE NOT SITE NOT SPECIF SPECIF Active [facility] POST POST Diagnosis Active 2015-05-15 Mem oria TRAUMATIC TRAUMATIC 10:23:00 l SEIZURES SEIZURES Avni n Active [facility] History of Past Illness Condition Condition Condition Status Onset Resolution Last Treating Co mments Source Name Details Category Date Date Treatment Clinician Date Discharge Discharge Problem 2014-052015-04-02 2015-04-02 Memoria Diagnosis: Diagnosis: 05-30 01:54:11 01:54:11 l 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: Herm carlo seizure seizure 00 03/30/201504/02/ 5 [facility] [place] [facility] Discharge Discharge Problem 2014-07-22 2014-07-22 Memoria Diagnosis: Diagnosis: 3-18 22:34:42 22:34:42 l Seizure Seizure 05:00: Anibal 07/20/2014 5 [facility] [place] [facility] Discharge Discharge Problem 2014-07-22 2014-07-22 Memoria Diagnosis: Diagnosis: 3- 22:34:42 22:34:42 l Noncomplia Noncomplia 05:00: Grabiel villareal nce nce 00 07/20/2014 5 [facility] [place] [facility] Allergies, Adverse Reactions, Alerts Allergy Allergy Status Severity Reaction(s) Onset Inactive Treating Comm ents Source Name Type Date Date Clinician Temazepa Propensi Active Hallucinatio Univers m ty to ns 7-21 ity of adverse 00:00: [place] reaction Medical s Branch Trazodon Propensi Active Hallucinatio Univers e ty to ns 721 ity of adverse 00:00: [place] reaction Medical s Branch TEMAZEPA DRUG Active Hallucinates 2020- Un nel M INGREDI 7-21 ity of 00:00: [place] 00 Medical Branch TRAZODON DRUG Active Hallucinates Un nel E INGREDI 7-21 ity of 00:00: [place] 00 Medical Branch Sulfa Propensi Active Itching Univers (Sulfona ty to 7-17 ity of mide adverse 00:00: [place] Antibiot reaction 00 Medica l ics) s Branch Ketorola Propensi Active Itching Unive rs c ty to 7-17 ity of Trometha adverse 00:00: [place] mine reaction 00 Medical s Branch Tramadol Propensi Active Itching Unive rs ty to 7-17 ity of adverse 00:00: [place] reaction Medical s Branch SULFA Drug Active ITCHING Univers (SULFONA Class 7-17 ity of MIDE 00:00: [place] ANTIBIOT 00 Medical ICS) Branch KETOROLA DRUG Active ITCHING Univers C INGREDI 7-17 ity of TROMETHA 00:00: [place] MINE 00 Medical Branch TRAMADOL DRUG Active ITCHING Univers INGREDI 7-17 ity of 00:00: [place] 00 Medical Branch SALICYLA Allergy Active [facility] SULFA [facility]ergy Active [facility] MIDE 00:00: Medical ANTIBIOT 00 Center ICS) KETOROLA Allergy Active [facility] 00[facility] Center TRAMADOL [facility]ergy [facility] Center Salicyla Propensi Active [facility] angelika ty to 05[facility] adverse 00:00: Medical reaction 00 Center s Sulfa Drug Active unknown [facility] (Sulfona Allergy 05[facility] mide 00:00: Medical Antibiot 00 Center ics) [facility] unknown [facility] Tramadol Drug [facility] aspirin aspirin Active [facility] [place] morphine morphine Active [facility] [place] penicill penicill Active [facility] [place] sulfa sulfa Active [facility] drugs drugs l [place] Toradol Toradol Active [facility] [place] traMADol traMADol Active [facility] [place] Family History Family Member Diagnosis Comments Start Date Stop Date Source Natural mother Asthma [facility] Social History Social Habit Start Date Stop Date Quantity Comments Source History of tobacco Chews Tobacco Uni versity of use [facility] Gender identity Universit y of [facility] Sexual orientation [facility] History of Social 2023-03-04 2023-03-04 Univers ity of function 00:00:00 00:00:00 [facility] Tobacco use and 2023-02-24 2023-02-24 User of Universit y of exposure 00:00:00 00:00:00 smokeless [facility] tobacco [place] Exposure to 2022-09-08 2022-09-18 Not sure University of SARS-CoV-2 (event) 00:00:00 17:47:00 [facility] Tobacco Comment 2022-09-18 2022-09-18 Smokes one Universit y of 00:00:00 00:00:00 cigarette/day [place] [facility] patient reports Branch "dipping" more than anything History SDOH 2022-01-10 2022-01-10 2 University o f Transport Med 00:00:00 00:00:00 [place] [facility] History SDOH 2022-01-10 2022-01-10 2 University o f Transport Non-Med 00:00:00 00:00:00 [facility] edical Branch Alcohol Comment 2021-11-10 2021-11-10 1 beers every Univer sity of 00:00:00 00:00:00 day [facility] Education - What is 2021-09-11 2021-09-11 High school Univ ersity of the highest level 00:00:00 00:00:00 graduate [facility] of school you have Branch completed or the highest degree you have received? History SDOH 2020-06-24 2020-06-24 5 University o f Alcohol Frequency 00:00:00 00:00:00 [place] M edical Branch History SDOH 2020-06-24 2020-06-24 2 University o f Alcohol Std Drinks 00:00:00 00:00:00 [place] [facility] History SDOH 2020-06-24 2020-06-24 4 University o f Alcohol Binge 00:00:00 00:00:00 [place] [facility] Social History 2016-01-20 2016-01-20 [place] [facility] 03:21:41 03:21:41 Alcohol intake 2013-07-28 2013-07-28 [facility]00 [facility] Cigarette 2013-05-31 2013-05-[address] [facility] pack-years 00:00:00 00:00:00 [facility] [place] Cigarettes smoked 2013-05-31 2013-05-[address] [facility] current (pack per 00:00:00 00:00:00 [facility] Center day) - Reported Sex Assigned At [address] [facility] 00:00:00 00:[facility]:00 [facility] Smoking Status Start Date Stop Date Source Occasional tobacco 2023-02-24 00:00:00 [facility] smoker Medical Branch Ex-smoker 2021-07-11 00:00:00 2021-07-11 University o f [place] 00:00:00 Medical Branch Smokes tobacco daily 2013-05-31 00:00:00 [facility] Medications Ordered Filled Start Stop Current Ordering Indication Dosage Frequency Signature Comments Components Source Medication Medication Date Date Medication? Clinician (SIG) Name Name benzonatate 2022-05 Yes [id number] 100mg Take 1 Univers (TESSALON 1-09 capsule by itnicky of PERLRONEN) 100 00:00: mouth [place] mg capsule 00 every 8 Medica l (eight) Branch hours as needed for Cough. azelastine 2022-05 Yes [id number] 1{spray Use 1 Univers 137 mcg 1-09 } Procious in ity of (0.1 %) 00:00: each [place] nasal spray 00 nostril in Me dical the Branch morning and 1 Procious in the evening. Use in each nostril as directed azithromyci 2022-05 Yes [id number] Take 500 Univers n 250 mg 1-09 mg PO day ity of tablet 00:00: 1, then [place] 00 250 mg PO Medical days 2 to Branch 5 benzonatate 2022-05 Yes [id number] 100mg Take 1 Univers (TESSALON 1-09 capsule by ity of PERLES) 100 00:00: mouth [place] mg capsule 00 every 8 Medica l (eight) Branch hours as needed for Cough. azelastine 2022-05 Yes [id number] 1{spray Use 1 Univers 137 mcg 1-09 } Procious in ity of (0.1 %) 00:00: each [place] nasal spray 00 nostril in Me dical the Branch morning and 1 Procious in the evening. Use in each nostril as directed azithromyci 2022-05 Yes [id number] Take 500 Univers n 250 mg 1-09 mg PO day ity of tablet 00:00: 1, then [place] 00 250 mg PO Medical days 2 to Branch 5 benzonatate 2022-05 Yes [id number] 100mg Take 1 Univers (TESSALON 1-09 capsule by itnicky of PERLES) 100 00:00: mouth [place] mg capsule 00 every 8 Medica l (eight) Branch hours as needed for Cough. azelastine 2022-05 Yes [id number] 1{spray Use 1 Univers 137 mcg 1-09 } Procious in ity of (0.1 %) 00:00: each [place] nasal spray 00 nostril in Me dical the Branch morning and 1 Procious in the evening. Use in each nostril as directed azithromyci 2022-05 Yes [id number] Take 500 Univers n 250 mg 1-09 mg PO day ity of tablet 00:00: 1, then [place] 00 250 mg PO Medical days 2 to Branch 5 benzonatate 2022-05 Yes [id number] 100mg Take 1 Univers (TESSALON 1-09 capsule by itRasheed) 100 00:00: mouth [place] mg capsule 00 every 8 Medica l (eight) Branch hours as needed for Cough. azelastine 2022-05 Yes [id number] 1{spray Use 1 Univers 137 mcg 1-09 } Procious in ity of (0.1 %) 00:00: each [place] nasal spray 00 nostril in Me dical the Branch morning and 1 Procious in the evening. Use in each nostril as directed azithromyci 2022-05 Yes [id number] Take 500 Univers n 250 mg 1-09 mg PO day ity of tablet 00:00: 1, then [place] 00 250 mg PO Medical days 2 to Branch 5 amitriptyli 2022-05 Yes [id number] 100mg Take 1 Univers ne 100 mg 1-07 tablet by ity o f tablet 00:00: mouth at [place] 00 bedtime. Medical Branch AMITRIPTYLI 2022-05 Yes [id number] TAKE 1 Univers NE 100 mg 1-07 TABLET BY ity o f tablet 00:00: MOUTH AT [place] 00 BEDTIME Medical Branch AMITRIPTYLI 2022-05 Yes [id number] TAKE 1 Univers NE 100 mg 1-07 TABLET BY ity o f tablet 00:00: MOUTH AT [place] 00 BEDTIME Medical Branch amitriptyli 2022-05 Yes [id number] 100mg Take 1 Univers ne 100 mg 1-07 tablet by ity o f tablet 00:00: mouth at [place] 00 bedtime. Medical Branch AMITRIPTYLI 2022-05 Yes [id number] TAKE 1 Univers NE 100 mg 1-07 TABLET BY ity o f tablet 00:00: MOUTH AT [place] 00 BEDTIME Medical Branch amitriptyli 2022-05 Yes [id number] 100mg Take 1 Univers ne 100 mg 1-07 tablet by ity o f tablet 00:00: mouth at [place] 00 bedtime. Medical Branch AMITRIPTYLI 2022-05 Yes [id number] TAKE 1 Univers NE 100 mg 1-07 TABLET BY ity o f tablet 00:00: MOUTH AT [place] 00 BEDTIME Medical Branch amitriptyli 2022-05 Yes [id number] 100mg Take 1 Univers ne 100 mg 1-07 tablet by ity o f tablet 00:00: mouth at [place] 00 bedtime. Medical Branch AMITRIPTYLI 2022- Yes [id number] TAKE 1 Univers NE 100 mg 1-07 TABLET BY ity o f tablet 00:00: MOUTH AT [place] 00 BEDTIME Medical Branch amitriptyli 2022- Yes [id number] 100mg Take 1 Univers ne 100 mg 1-07 tablet by ity o f tablet 00:00: mouth at [place] 00 bedtime. Medical Branch HYDROcodone 2022-05 Yes [id number] 1{tbl} Take 1 Un nel -acetaminop 1-05 tablet by ity of hen (NORCO) 00:00: mouth [place] 10-325 mg 00 every 6 Medical tablet (six) Branch hours as needed for Pain (scale 7-10). Indication s: acute pain HYDROcodone 2022-05 Yes [id number] 1{tbl} Take 1 Un nel -acetaminop 1-05 tablet by ity of hen (NORCO) 00:00: mouth [place] 10-325 mg 00 every 6 Medical tablet (six) Branch hours as needed for Pain (scale 7-10). Indication s: acute pain HYDROcodone 2022-05 Yes [id number] 1{tbl} Take 1 Un nel -acetaminop 1-05 tablet by ity of hen (NORCO) 00:00: mouth [place] 10-325 mg 00 every 6 Medical tablet (six) Branch hours as needed for Pain (scale 7-10). Indication s: acute pain HYDROcodone 2022-05 Yes [id number] 1{tbl} Take 1 Un nel -acetaminop 1-05 tablet by ity of hen (NORCO) 00:00: mouth [place] 10-325 mg 00 every 6 Medical tablet (six) Branch hours as needed for Pain (scale 7-10). Indication s: acute pain HYDROcodone 2022-05 Yes [id number] 1{tbl} Take 1 Un nel -acetaminop 1-05 tablet by ity of hen (NORCO) 00:00: mouth [place] 10-325 mg 00 every 6 Medical tablet (six) Branch hours as needed for Pain (scale 7-10). Indication s: acute pain HYDROcodone 2022-05 Yes [id number] 1{tbl} Take 1 Un nel -acetaminop 1-05 tablet by ity of hen (NORCO) 00:00: mouth [place] 10-325 mg 00 every 6 Medical tablet (six) Branch hours as needed for Pain (scale 7-10). Indication s: acute pain HYDROcodone 2022-05 Yes [id number] 1{tbl} Take 1 Un nel -acetaminop 1-05 tablet by ity of hen (NORCO) 00:00: mouth [place] 10-325 mg 00 every 6 Medical tablet (six) Branch hours as needed for Pain (scale 7-10). Indication s: acute pain HYDROcodone 2022-05 Yes [id number] 1{tbl} Take 1 Un nel -acetaminop 1-05 tablet by ity of hen (NORCO) 00:00: mouth [place] 10-325 mg 00 every 6 Medical tablet (six) Branch hours as needed for Pain (scale 7-10). Indication s: acute pain furosemide 2022-05- No furosemide Univers 40 mg [id number] 40 mg ity of tablet 16:13: 00:00 tablet [place] 46 :00 Medical Branch methocarbam 2022-05- No methocarba Univers oL 500 mg 05-07 mol 500 mg ity of tablet 16:13: 00:00 tablet [place] 46 :00 TAKE 1 Medical TABLET BY Branch MOUTH TWICE DAILY FOR 16 DAYS DIRECTED spironolact 2022-05- No 25mg Take 1 Uni vers one 25 mg 05-07 tablet by ity of tablet 16:13: 00:00 mouth [place] 46 :00 every Medical morning. Branch furosemide 2022-05- No furosemide Univers 40 mg 05-07 40 mg ity of tablet 16:13: 00:00 tablet [place] 46 :00 Medical Branch methocarbam 2022-05- No methocarba Univers oL 500 mg 05-07 mol 500 mg ity of tablet 16:13: 00:00 tablet [place] 46 :00 TAKE 1 Medical TABLET BY Branch MOUTH TWICE DAILY FOR 16 DAYS DIRECTED spironolact 2022-05- No 25mg Take 1 Uni vers one 25 mg -03 tablet by ity of tablet 16:13: 00:00 mouth [place] 46 :00 every Medical morning. Branch furosemide 2022-05- No furosemide Univers 40 mg 05-07 40 mg ity of tablet 16:13: 00:00 tablet [place] 46 :00 [facility] methocarbam 2022-05- No methocarba Univers oL 500 mg 05-07 mol 500 mg ity of tablet 16:13: 00:00 tablet [place] 46 :00 TAKE 1 Medical TABLET BY Branch MOUTH TWICE DAILY FOR 16 DAYS DIRECTED spironolact 2022-05- No 25mg Take 1 Uni vers one 25 mg 05-07 tablet by ity of tablet 16:13: 00:00 mouth [place] 46 :00 every Medical morning. [place] zolpidem 5 2022-05- No zolpidem 5 Univers mg tablet 05-07 mg tablet ity of 16:10: 00:00 [place] 29 :00 [facility] zolpidem 5 2022-05- No zolpidem 5 Univers mg tablet 05-07 mg tablet ity of 16:10: 00:00 [place] 29 :00 [facility] zolpidem 5 2022-05- No zolpidem 5 Univers mg tablet 05-07 mg tablet ity of 16:10: 00:00 [place] 29 :00 [facility] predniSONE 2022-05- No prednisone Univers 50 mg 05-07 50 mg ity of tablet 16:09: 00:00 tablet [place] 58 :00 TAKE 1 Medical TABLET BY Branch MOUTH DAILY WITH BREAKFAST FOR 5 DAYS predniSONE 2022-05- No prednisone Univers 50 mg 05-07 50 mg ity of tablet 16:09: 00:00 tablet [place] 58 :00 TAKE 1 Medical TABLET BY Branch MOUTH DAILY WITH BREAKFAST FOR 5 DAYS predniSONE 2022-05- No prednisone Univers 50 mg 05-07 50 mg ity of tablet 16:09: 00:00 tablet [place] 58 :00 TAKE 1 Medical TABLET BY Branch MOUTH DAILY WITH BREAKFAST FOR 5 DAYS meloxicam 2022-05- No meloxicam Un nel 15 mg 05-07 15 mg ity of tablet 16:06: 00:00 tablet [place] 32 :00 TAKE 1 Medical TABLET BY Branch MOUTH EVERY DAY FOR 16 DAYS meloxicam 2022-05 No meloxicam Un nel 15 mg 05-07 15 mg ity of tablet 16:06: 00:00 tablet [place] 32 :00 TAKE 1 Medical TABLET BY Branch MOUTH EVERY DAY FOR 16 DAYS meloxicam 2022-05- No meloxicam Un nel 15 mg 05-07 15 mg ity of tablet 16:06: 00:00 tablet [place] 32 :00 TAKE 1 Medical TABLET BY Branch MOUTH EVERY DAY FOR 16 DAYS clindamycin 2022-05- No TAKE 2 Uni vers 150 mg 05-07 CAPSULES ity of capsule 16:03: 00:00 BY MOUTH [place] 21 :00 FOUR TIMES Medical DAILY FOR Branch 7 DAYS clindamycin 2022-05- No TAKE 2 Uni vers 150 mg 05-07 CAPSULES ity of capsule 16:03: 00:00 BY MOUTH [place] 21 :00 FOUR TIMES Medical DAILY FOR Branch 7 DAYS clindamycin 2022-05- No TAKE 2 Uni vers 150 mg 05-07 CAPSULES ity of capsule 16:03: 00:00 BY MOUTH [place] 21 :00 FOUR TIMES Medical DAILY FOR Branch 7 DAYS carisoprodo 2022-05 No 350mg Take 1 Un nel L 350 mg 05-07 tablet by ity o f tablet 16:03: 00:00 mouth. [place] 06 :00 Medical Branch carisoprodo 2022-05- No 350mg Take 1 Un nel L 350 mg 05-07 tablet by ity o f tablet 16:03: 00:00 mouth. [place] 06 :00 Medical Branch carisoprodo 2022-05- No 350mg Take 1 Un nel L 350 mg 05-07 tablet by ity o f tablet 16:03: 00:00 mouth. [place] 06 :00 Medical Branch HYDROcodone 2022-05 No 1{tbl} Take 1 U nivers -acetaminop 05-07 tablet by it y of hen 10-325 15:58: 00:00 mouth [place] mg tablet 24 :00 every 6 Medical (six) Branch hours as needed for Pain (scale 7-10). HYDROcodone 2022-05 No 1{tbl} Take 1 U nivers -acetaminop 1-03 11-03 tablet by it y of hen 10-325 15:58: 00:00 mouth [place] mg tablet 24 :00 every 6 Medical (six) Branch hours as needed for Pain (scale 7-10). HYDROcodone 2022-05- No 1{tbl} Take 1 U nivers -acetaminop -03 11-03 tablet by it y of hen 10-325 15:58: 00:00 mouth [place] mg tablet 24 :00 every 6 Medical (six) Branch hours as needed for Pain (scale 7-10). aspirin 81 2022-05 Yes Univers mg EC 1-03 ity of tablet 15:24: [address] ranolazine 2022-05 Yes 500mg Take 1 Univ ers 500 mg 12 1-03 tablet by ity o f hr tablet 15:24: mouth in [place] [address] the [facility] Branch and 1 tablet in the evening. aspirin 81 2022-05 Yes Univers mg EC 1-03 ity of tablet 15:24: [address] ranolazine 2022-05 Yes 500mg Take 1 Univ ers 500 mg 12 -03 tablet by ity o f hr tablet 15:24: mouth in [place] [address] the [facility] Branch and 1 tablet in the evening. aspirin 81 2022-05 Yes Univers mg EC 1-03 ity of tablet 15:24: [address] ranolazine 2022-05 Yes 500mg Take 1 Univ ers 500 mg 12 1-03 tablet by ity o f hr tablet 15:24: mouth in [place] [address] the [facility] Branch and 1 tablet in the evening. aspirin 81 2022-05 Yes Univers mg EC 1-03 ity of tablet 15:24: [address] ranolazine 2022-05 Yes 500mg Take 1 Univ ers 500 mg 12 1-03 tablet by ity o f hr tablet 15:24: mouth in [place] [address] the [facility] morning Branch and 1 tablet in the evening. aspirin 81 2022-05 Yes Univers mg EC 1-03 ity of tablet 15:24: [address] ranolazine 2022-05 Yes 500mg Take 1 Univ ers 500 mg 12 1-03 tablet by ity o f hr tablet 15:24: mouth in [place] [address] the [facility] Branch and 1 tablet in the evening. aspirin 81 2022-05 Yes Univers mg EC 1-03 ity of tablet 15:24: [address] ranolazine 2022-05 Yes 500mg Take 1 Univ ers 500 mg 12 -03 tablet by ity o f hr tablet 15:24: mouth in [address] and 1 tablet in the evening. aspirin 81 2022-05 Yes Univers mg EC 1-03 ity of tablet 15:24: [address] ranolazine 2022-05 Yes 500mg Take 1 Univ ers 500 mg 12 03 tablet by ity o f hr tablet 15:24: mouth in [place] [facility] and 1 tablet in the evening. aspirin 81 2022-05 Yes Univers mg EC 1-03 ity of tablet 15:24: [address] ranolazine 2022-05 Yes 500mg Take 1 Univ ers 500 mg 12 05-07 tablet by ity o f hr tablet 15:24: mouth in [address] and 1 tablet in the evening. aspirin 81 2022-05 Yes Univers mg EC -03 ity of tablet 15:24: [address] ranolazine 2022-05 Yes 500mg Take 1 Univ ers 500 mg 12 03 tablet by ity o f hr tablet 15:24: mouth in [address] and 1 tablet in the evening. HYDROcodone 2022-05- No 1{tbl} 1 tablet, Univers -acetaminop 05-07 Oral, ity of hen (NORCO 12:30: 12:31 ONCE, 1 Gior[place] as 5) 5-325 mg 00 :00 dose, On Medi pablito tablet 1 Fri Branch tablet 03/07/23 at 0730, JOEY HYDROcodone 2022-05- No 1{tbl} 1 tablet, Univers -acetaminop 05-07 Oral, ity of hen (NORCO 12:30: 12:19 ONCE, 1 [place] as 5) 5-325 mg 00 :00 dose, On Medi pablito tablet 1 Fri Branch tablet 03/07/23 at 0730, JOEY furosemide 2022-05- No 40mg 40 mg, IV U nivers (LASIX) 05-07 Push, ity of injection 12:15: 12:19 ONCE, 1 [place] 40 [place] 00 :00 dose, On Medical Fri Branch 03/07/23 at 0715, JOEY HYDROcodone 2022-05 Yes [id number] 1{tbl} Take 1 Un nel -acetaminop 1-03 tablet by ity of hen (NORCO) 00:00: mouth [place] 10-325 mg 00 every 6 Medical tablet (six) Branch hours as needed for Pain (scale 7-10) for up to 8 doses. Indication s: acute pain albuterol 2022-05 Yes [id number] 2.5mg Inhale 0.5 Univers 2.5 mg/0.5 1-03 mL every 6 ity of mL 00:00: (six) [place] nebulizer 00 hours as Medica l solution needed for Branc h Wheezing. albuterol 2022-05 Yes [id number] 2{puff} Inhale 2 Univers 90 1-03 Puffs ity of mcg/actuati 00:00: every 4 G[place] as on inhaler 00 (four) Medical hours as Branch needed for Wheezing or Shortness of Breath. spironolact 2022-05 Yes [id number] 25mg Take 1 Univers one 25 mg 1-03 tablet by ity o f tablet 00:00: mouth [place] 00 every Medical morning. Branch apixaban 2022-05 Yes 5mg Take 1 Univers (ELIQUIS) 5 1-03 tablet by ity of mg tablet 00:00: mouth [place] 00 the Medical morning Branch and 1 tablet in the evening. Indication s: PE atorvastati 2022-05 Yes [id number] 10mg Take 1 Univers n 10 mg 1-03 tablet by ity of tablet 00:00: mouth at [place] 00 bedtime. Medical Branch benzonatate 2022-05 Yes [id number] 100mg Take 1 Univers 100 mg 1-03 capsule by ity of capsule 00:00: mouth 3 [place] 00 (three) Medical times Branch daily as needed for Cough. budesonide 2022-05 Yes [id number] .5mg Inhale 2 Univers 0.5 mg/2 mL 1-03 mL 2 (two) it y of nebulizer 00:00: times [place] solution 00 daily as Medical needed for Branch Other (Shortness of breath). budesonide- 2022-05 Yes [id number] 2{puff} Inhale 2 Univers formoteroL 1-03 Puffs in ity o f 160-4.5 00:00: the [place] mcg/actuati 00 morning Medic al on inhaler and 2 Branch Puffs in the evening. carvediloL 2022-05 Yes [id number] TAKE 1 U nivers 3.125 mg 1-03 TABLET BY ity of tablet 00:00: MOUTH IN [place] 00 THE Medical MORNING Branch AND IN THE EVENING WITH MEALS furosemide 2022-05 Yes [id number] 40mg Take 1 U nivers 40 mg 1-03 tablet by ity of tablet 00:00: mouth in [place] 00 the Medical morning Branch and 1 tablet in the evening. ibuprofen 2022-05 Yes [id number] 800mg Take 1 Univers 800 mg 1-03 [id number] tablet by ity of tablet 00:00: mouth [place] 00 every 8 Medical (eight) Branch hours as needed for Pain (scale 4-6) or Temp > 38.5 C. KCL 10 mEq 2022-05 Yes [id number] TAKE ONE Univers tablet 1-03 TABLET BY ity of 00:00: MOUTH [place] [address] EVERY Medical MORNING. Branch TAKE WITH FUROSEMIDE lisinopriL 2022-05 Yes [id number] 20mg Take 1 U nivers 20 mg 1-03 tablet by ity of tablet 00:00: mouth in [place] 00 the Medical morning. Branch metFORMIN 2022-05 Yes [id number] 500mg Take 1 Univers 500 mg 1-03 tablet by ity of tablet 00:00: mouth in [place] 00 the Medical morning Branch and 1 tablet in the evening. Take with meals. methocarbam 2022-05 Yes [id number] 500mg Take 1 Univers oL 500 mg 1-03 tablet by ity o f tablet 00:00: mouth 3 [place] 00 (three) Medical times Branch daily as needed for Pain (scale 4-6). empaglifloz 2022-05 Yes [id number] 10mg Take 1 Univers in 10 mg 1-03 tablet by ity of 00:00: mouth in [place] 00 the Medical morning. Branch Lancing 2022-05 Yes [id number] Use BID as Univers Device with 1-03 directed ity of Lancets 00:00: [place] (MULTI-LANC 00 Medical ET DEVICE Branch 2) Kit blood sugar 2022-05 Yes [id number] Test twice Univers diagnostic 1-03 a day ity of (BLOOD 00:00: [place] GLUCOSE 00 Medical TEST) strip Branch Blood-Gluco 2022-05 Yes [id number] Use twice Univers se Meter 1-03 a day as ity of Kit 00:00: directed [place] 00 Medical Branch albuterol 2022-05 Yes [id number] 2.5mg Inhale 0.5 Univers 2.5 mg/0.5 1-03 mL every 6 ity of mL 00:00: (six) [place] nebulizer 00 hours as Medica l solution needed for Branc h Wheezing. albuterol 2022-05 Yes [id number] 2{puff} Inhale 2 Univers 90 1-03 Puffs ity of mcg/actuati 00:00: every 4 Giorgio as on inhaler 00 (four) Medical hours as Branch needed for Wheezing or Shortness of Breath. spironolact 2022-05 Yes [id number] 25mg Take 1 Univers one 25 mg 1-03 tablet by ity o f tablet 00:00: mouth [place] 00 every Medical morning. Branch apixaban 2022-05 Yes 5mg Take 1 Univers (ELIQUIS) 5 1-03 tablet by ity of mg tablet 00:00: mouth [place] 00 the Medical morning Branch and 1 tablet in the evening. Indication s: PE atorvastati 2022-05 Yes [id number] 10mg Take 1 Univers n 10 mg 1-03 tablet by ity of tablet 00:00: mouth at [place] 00 bedtime. Medical Branch benzonatate 2022-05 Yes [id number] 100mg Take 1 Univers 100 mg 1-03 capsule by ity of capsule 00:00: mouth 3 [place] 00 (three) Medical times Branch daily as needed for Cough. budesonide 2022-05 Yes [id number] .5mg Inhale 2 Univers 0.5 mg/2 mL 1-03 mL 2 (two) it y of nebulizer 00:00: times [place] solution 00 daily as Medical needed for Branch Other (Shortness of breath). budesonide- 2022-05 Yes [id number] 2{puff} Inhale 2 Univers formoteroL 1-03 Puffs in ity o f 160-4.5 00:00: the [place] mcg/actuati 00 morning Medic al on inhaler and 2 Branch Puffs in the evening. carvediloL 2022-05 Yes [id number] TAKE 1 U nivers 3.125 mg 1-03 TABLET BY ity of tablet 00:00: MOUTH IN [place] 00 THE Medical MORNING Branch AND IN THE EVENING WITH MEALS furosemide 2022-05 Yes [id number] 40mg Take 1 U nivers 40 mg 1-03 tablet by ity of tablet 00:00: mouth in [place] 00 the Medical morning Branch and 1 tablet in the evening. ibuprofen 2022-05 Yes [id number] 800mg Take 1 Univers 800 mg 1-03 [id number] tablet by ity of tablet 00:00: mouth [place] 00 every 8 Medical (eight) Branch hours as needed for Pain (scale 4-6) or Temp > 38.5 C. KCL 10 mEq 2022-05 Yes [id number] TAKE ONE Univers tablet 1-03 TABLET BY ity of 00:00: MOUTH [place] [address] EVERY Medical MORNING. Branch TAKE WITH FUROSEMIDE lisinopriL 2022-05 Yes [id number] 20mg Take 1 U nivers 20 mg 1-03 tablet by ity of tablet 00:00: mouth in [place] 00 the Medical morning. Branch metFORMIN 2022-05 Yes [id number] 500mg Take 1 Univers 500 mg 1-03 tablet by ity of tablet 00:00: mouth in [place] 00 the Medical morning Branch and 1 tablet in the evening. Take with meals. methocarbam 2022-05 Yes [id number] 500mg Take 1 Univers oL 500 mg 1-03 tablet by ity o f tablet 00:00: mouth 3 [place] 00 (three) Medical times Branch daily as needed for Pain (scale 4-6). empaglifloz 2022-05 Yes [id number] 10mg Take 1 Univers in 10 mg 1-03 tablet by ity of 00:00: mouth in [place] 00 the Medical morning. Branch Lancing 2022-05 Yes [id number] Use BID as Univers Device with 03 directed ity of Lancets 00:00: [place] (MULTI-LANC 00 Medical ET DEVICE Branch 2) Kit blood sugar 2022-05 Yes [id number] Test twice Univers diagnostic 1-03 a day ity of (BLOOD 00:00: [place] GLUCOSE 00 Medical TEST) strip Branch Blood-Gluco 2022-05 Yes [id number] Use twice Univers se Meter 1-03 a day as ity of Kit 00:00: directed [place] 00 Medical Branch albuterol 2022-05 Yes [id number] 2.5mg Inhale 0.5 Univers 2.5 mg/0.5 1-03 mL every 6 ity of mL 00:00: (six) [place] nebulizer 00 hours as Medica l solution needed for Branc h Wheezing. albuterol 2022-05 Yes [id number] 2{puff} Inhale 2 Univers 90 1-03 Puffs ity of mcg/actuati 00:00: every 4 [place] as on inhaler 00 (four) Medical hours as Branch needed for Wheezing or Shortness of Breath. spironolact 2022-05 Yes [id number] 25mg Take 1 Univers one 25 mg 1-03 tablet by ity o f tablet 00:00: mouth [place] 00 every Medical morning. Branch apixaban 2022-05 Yes 5mg Take 1 Univers (ELIQUIS) 5 1-03 tablet by ity of mg tablet 00:00: mouth in [place] 00 the Medical morning Branch and 1 tablet in the evening. Indication s: PE atorvastati 2022-05 Yes [id number] 10mg Take 1 Univers n 10 mg 1-03 tablet by ity of tablet 00:00: mouth at [place] 00 bedtime. Medical Branch benzonatate 2022-05 Yes [id number] 100mg Take 1 Univers 100 mg 1-03 capsule by ity of capsule 00:00: mouth 3 [place] 00 (three) Medical times Branch daily as needed for Cough. budesonide 2022-05 Yes [id number] .5mg Inhale 2 Univers 0.5 mg/2 mL 1-03 mL 2 (two) it y of nebulizer 00:00: times [place] solution 00 daily as Medical needed for Branch Other (Shortness of breath). budesonide- 2022-05 Yes [id number] 2{puff} Inhale 2 [facility] formoteroL 1-03 Puffs in ity o f 160-4.5 00:00: the [place] mcg/actuati 00 morning Medic al on inhaler and 2 Branch Puffs in the evening. carvediloL 2022-05 Yes [id number] TAKE 1 U nivers 3.125 mg 1-03 TABLET BY ity of tablet 00:00: MOUTH IN [place] 00 THE Medical MORNING Branch AND IN THE EVENING WITH MEALS furosemide 2022-05 Yes [id number] 40mg Take 1 U nivers 40 mg 1-03 tablet by ity of tablet 00:00: mouth in [place] 00 the Medical morning Branch and 1 tablet in the evening. ibuprofen 2022-05 Yes [id number] 800mg Take 1 [facility] 800 mg 1-03 [id number] tablet by ity of tablet 00:00: mouth [place] 00 every 8 Medical (eight) Branch hours as needed for Pain (scale 4-6) or Temp > 38.5 C. KCL 10 mEq 2022-05 Yes [id number] TAKE ONE [facility] tablet 1-03 TABLET BY ity of 00:00: MOUTH [place] 00 EVERY Medical MORNING. Branch TAKE WITH FUROSEMIDE lisinopriL 2022-05 Yes [id number] 20mg Take 1 U nivers 20 mg 1-03 tablet by ity of tablet 00:00: mouth in [place] 00 the Medical morning. Branch metFORMIN 2022-05 Yes [id number] 500mg Take 1 [facility] 500 mg 1-03 tablet by ity of tablet 00:00: mouth in [place] 00 the Medical morning Branch and 1 tablet in the evening. Take with meals. methocarbam 2022-05 Yes [id number] 500mg Take 1 [facility] oL 500 mg 1-03 tablet by ity o f tablet 00:00: mouth 3 [place] 00 (three) Medical times Branch daily as needed for Pain (scale 4-6). empaglifloz 2022-05 Yes [id number] 10mg Take 1 [facility] in 10 mg 1-03 tablet by ity of 00:00: mouth in [place] 00 the Medical morning. Branch Lancing 2022-05 Yes [id number] Use BID as [facility] Device with 1-03 directed ity of Lancets 00:00: [place] (MULTI-LANC 00 Medical ET DEVICE Branch 2) Kit blood sugar 2022-05 Yes [id number] Test twice [facility] diagnostic 1-03 a day ity of (BLOOD 00:00: [place] GLUCOSE 00 Medical TEST) strip Branch Blood-Gluco 2022-05 Yes [id number] Use twice [facility] se Meter 1-03 a day as ity of Kit 00:00: directed [place] 00 Medical Branch albuterol 2022-05 Yes [id number] 2.5mg Inhale 0.5 [facility] 2.5 mg/0.5 1-03 mL every 6 ity of mL 00:00: (six) [place] nebulizer 00 hours as Medica l solution needed for Branc h Wheezing. albuterol 2022-05 Yes [id number] 2{puff} Inhale 2 [facility] 90 1-03 Puffs ity of mcg/actuati 00:00: every 4 [place] as on inhaler 00 (four) Medical hours as Branch needed for Wheezing or Shortness of Breath. spironolact 2022-05 Yes [id number] 25mg Take 1 [facility] one 25 mg 1-03 tablet by ity o f tablet 00:00: mouth [place] 00 every Medical morning. Branch apixaban 2022-05 Yes 5mg Take 1 [facility] (ELIQUIS) 5 1-03 tablet by ity of mg tablet 00:00: mouth [place] 00 the Medical morning Branch and 1 tablet in the evening. Indication s: PE atorvastati 2022-05 Yes [id number] 10mg Take 1 [facility] n 10 mg 1-03 tablet by ity of tablet 00:00: mouth at [place] 00 bedtime. Medical Branch benzonatate 2022-05 Yes [id number] 100mg Take 1 [facility] 100 mg 1-03 capsule by ity of capsule 00:00: mouth 3 [place] 00 (three) Medical times Branch daily as needed for Cough. budesonide 2022-05 Yes [id number] .5mg Inhale 2 [facility] 0.5 mg/2 mL 1-03 mL 2 (two) it y of nebulizer 00:00: times [place] solution 00 daily as Medical needed for Branch Other (Shortness of breath). budesonide- 2022-05 Yes [id number] 2{puff} Inhale 2 [facility] formoteroL 1-03 Puffs in ity o f 160-4.5 00:00: the [place] mcg/actuati 00 morning Medic al on inhaler and 2 Branch Puffs in the evening. carvediloL 2022-05 Yes [id number] TAKE 1 U nivers 3.125 mg 1-03 TABLET BY ity of tablet 00:00: MOUTH IN [place] 00 THE Medical MORNING Branch AND IN THE EVENING WITH MEALS furosemide 2022-05 Yes [id number] 40mg Take 1 [facility] nivers 40 mg 1-03 tablet by ity of tablet 00:00: mouth in [place] 00 the Medical morning Branch and 1 tablet in the evening. ibuprofen 2022-05 Yes [id number] 800mg Take 1 [facility] 800 mg 1-03 [id number] tablet by ity of tablet 00:00: mouth [place] 00 every 8 Medical (eight) Branch hours as needed for Pain (scale 4-6) or Temp > 38.5 C. KCL 10 mEq 2022-05 Yes [id number] TAKE ONE [facility] tablet 1-03 TABLET BY ity of 00:00: MOUTH [place] 00 EVERY Medical MORNING. Branch TAKE WITH FUROSEMIDE lisinopriL 2022-05 Yes [id number] 20mg Take 1 U nivers 20 mg 1-03 tablet by ity of tablet 00:00: mouth in [place] 00 the Medical morning. Branch metFORMIN 2022-05 Yes [id number] 500mg Take 1 [facility] 500 mg 1-03 tablet by ity of tablet 00:00: mouth in [place] 00 the Medical morning Branch and 1 tablet in the evening. Take with meals. methocarbam 2022-05 Yes [id number] 500mg Take 1 [facility] oL 500 mg 1-03 tablet by ity o f tablet 00:00: mouth 3 [place] 00 (three) Medical times Branch daily as needed for Pain (scale 4-6). empaglifloz 2022-05 Yes [id number] 10mg Take 1 [facility] in 10 mg 1-03 tablet by ity of 00:00: mouth in [place] 00 the Medical morning. Branch Lancing 2022-05 Yes [id number] Use BID as [facility] Device with 1-03 directed ity of Lancets 00:00: [place] (MULTI-LANC 00 Medical ET DEVICE Branch 2) Kit blood sugar 2022-05 Yes [id number] Test twice [facility] diagnostic 1-03 a day ity of (BLOOD 00:00: [place] GLUCOSE 00 Medical TEST) strip Branch Blood-Gluco 2022-05 Yes [id number] Use twice [facility] se Meter 1-03 a day as ity of Kit 00:00: directed [place] 00 Medical Branch albuterol 2022-05 Yes [id number] 2.5mg Inhale 0.5 [facility] 2.5 mg/0.5 1-03 mL every 6 ity of mL 00:00: (six) [place] nebulizer 00 hours as Medica l solution needed for Branc h Wheezing. albuterol 2022-05 Yes [id number] 2{puff} Inhale 2 [facility] 90 1-03 Puffs ity of mcg/actuati 00:00: every 4 [place] as on inhaler 00 (four) Medical hours as Branch needed for Wheezing or Shortness of Breath. spironolact 2022-05 Yes [id number] 25mg Take 1 [facility] one 25 mg 1-03 tablet by ity o f tablet 00:00: mouth [place] 00 every Medical morning. Branch apixaban 2022-05 Yes 5mg Take 1 [facility] (ELIQUIS) 5 1-03 tablet by ity of mg tablet 00:00: mouth in [place] 00 the Medical morning Branch and 1 tablet in the evening. Indication s: PE atorvastati 2022-05 Yes [id number] 10mg Take 1 [facility] n 10 mg 1-03 tablet by ity of tablet 00:00: mouth at [place] 00 bedtime. Medical Branch budesonide 2022-05 Yes [id number] .5mg Inhale 2 [facility] 0.5 mg/2 mL 1-03 mL 2 (two) it y of nebulizer 00:00: times [place] [facility] [place] 00 daily as Medical needed for Branch Other (Shortness of breath). budesonide- 2022-05 Yes [id number] 2{puff} Inhale 2 [facility] formoteroL 1-03 Puffs in ity o f 160-4.5 00:00: the [place] mcg/actuati 00 morning Medic al on inhaler and 2 Branch Puffs in the evening. carvediloL 2022-05 Yes [id number] TAKE 1 U nivers 3.125 mg 1-03 TABLET BY ity of tablet 00:00: MOUTH IN [place] 00 THE Medical MORNING Branch AND IN THE EVENING WITH MEALS furosemide 2022-05 Yes [id number] 40mg Take 1 U nivers 40 mg 1-03 tablet by ity of tablet 00:00: mouth in [place] 00 the Medical morning Branch and 1 tablet in the evening. ibuprofen 2022-05 Yes [id number] 800mg Take 1 [facility] 800 mg 1-03 [id number] tablet by ity of tablet 00:00: mouth [place] 00 every 8 Medical (eight) Branch hours as needed for Pain (scale 4-6) or Temp > 38.5 C. KCL 10 mEq 2022-05 Yes [id number] TAKE ONE [facility] tablet 1-03 TABLET BY ity of 00:00: MOUTH [place] 00 EVERY Medical MORNING. Branch TAKE WITH FUROSEMIDE lisinopriL 2022-05 Yes [id number] 20mg Take 1 U nivers 20 mg 1-03 tablet by ity of tablet 00:00: mouth in [place] 00 the Medical morning. Branch metFORMIN 2022-05 Yes [id number] 500mg Take 1 [facility] 500 mg 1-03 tablet by ity of tablet 00:00: mouth in [place] 00 the Medical morning Branch and 1 tablet in the evening. Take with meals. methocarbam 2022-05 Yes [id number] 500mg Take 1 [facility] oL 500 mg 1-03 tablet by ity o f tablet 00:00: mouth 3 [place] 00 (three) Medical times Branch daily as needed for Pain (scale 4-6). empaglifloz 2022-05 Yes [id number] 10mg Take 1 [facility] in 10 mg 1-03 tablet by ity of 00:00: mouth in [place] 00 the Medical morning. Branch Lancing 2022-05 Yes [id number] Use BID as [facility] Device with -03 directed ity of Lancets 00:00: [place] (MULTI-LANC 00 Medical ET DEVICE Branch 2) Kit blood sugar 2022-05 Yes [id number] Test twice [facility] diagnostic 1-03 a day ity of (BLOOD 00:00: [place] GLUCOSE 00 Medical TEST) strip Branch Blood-Gluco 2022-05 Yes [id number] Use twice [facility] se Meter 1-03 a day as ity of Kit 00:00: directed [place] 00 Medical Branch albuterol 2022-05 Yes [id number] 2.5mg Inhale 0.5 [facility] 2.5 mg/0.5 1-03 mL every 6 ity of mL 00:00: (six) [place] nebulizer 00 hours as Medica l solution needed for Branc h Wheezing. albuterol 2022-05 Yes [id number] 2{puff} Inhale 2 [facility] 90 1-03 Puffs ity of mcg/actuati 00:00: every 4 [place] as on inhaler 00 (four) Medical hours as Branch needed for Wheezing or Shortness of Breath. spironolact 2022-05 Yes [id number] 25mg Take 1 [facility] one 25 mg 1-03 tablet by ity o f tablet 00:00: mouth [place] 00 every Medical morning. Branch apixaban 2022-05 Yes 5mg Take 1 [facility] (ELIQUIS) 5 1-03 tablet by ity of mg tablet 00:00: mouth in [place] 00 the Medical morning Branch and 1 tablet in the evening. Indication s: PE atorvastati 2022-05 Yes [id number] 10mg Take 1 [facility] n 10 mg 1-03 tablet by ity of tablet 00:00: mouth at [place] [address] bedtime. Medical Branch budesonide 2022-05 Yes [id number] .5mg Inhale 2 [facility] 0.5 mg/2 mL 1-03 mL 2 (two) it y of nebulizer 00:00: times [place] [facility] [place] 00 daily as Medical needed for Branch Other (Shortness of breath). budesonide- 2022-05 Yes [id number] 2{puff} Inhale 2 [facility] formoteroL 1-03 Puffs in ity o f 160-4.5 00:00: the [place] mcg/actuati 00 morning Medic al on inhaler and 2 Branch Puffs in the evening. carvediloL 2022-05 Yes [id number] TAKE 1 U nivers 3.125 mg 1-03 TABLET BY ity of tablet 00:00: MOUTH IN [place] 00 THE Medical MORNING Branch AND IN THE EVENING WITH MEALS furosemide 2022-05 Yes [id number] 40mg Take 1 U nivers 40 mg 1-03 tablet by ity of tablet 00:00: mouth in [place] 00 the Medical morning Branch and 1 tablet in the evening. ibuprofen 2022-05 Yes [id number] 800mg Take 1 [facility] 800 mg 1-03 [id number] tablet by ity of tablet 00:00: mouth [place] 00 every 8 Medical (eight) Branch hours as needed for Pain (scale 4-6) or Temp > 38.5 C. KCL 10 mEq 2022-05 Yes [id number] TAKE ONE [facility] tablet 1-03 TABLET BY ity of 00:00: MOUTH [place] 00 EVERY Medical MORNING. Branch TAKE WITH FUROSEMIDE lisinopriL 2022-05 Yes [id number] 20mg Take 1 U nivers 20 mg 1-03 tablet by ity of tablet 00:00: mouth in [place] 00 the Medical morning. Branch metFORMIN 2022-05 Yes [id number] 500mg Take 1 [facility] 500 mg 1-03 tablet by ity of tablet 00:00: mouth in [place] 00 the Medical morning Branch and 1 tablet in the evening. Take with meals. methocarbam 2022-05 Yes [id number] 500mg Take 1 [facility] oL 500 mg 1-03 tablet by ity o f tablet 00:00: mouth 3 [place] 00 (three) Medical times Branch daily as needed for Pain (scale 4-6). empaglifloz 2022-05 Yes [id number] 10mg Take 1 [facility] in 10 mg 1-03 tablet by ity of 00:00: mouth in [place] 00 the Medical morning. Branch Lancing 2022-05 Yes [id number] Use BID as [facility] Device with -03 directed ity of Lancets 00:00: [place] (MULTI-LANC 00 Medical ET DEVICE Branch 2) Kit blood sugar 2022-05 Yes [id number] Test twice [facility] diagnostic 1-03 a day ity of (BLOOD 00:00: [place] GLUCOSE 00 Medical TEST) strip Branch Blood-Gluco 2022-05 Yes [id number] Use twice [facility] se Meter 1-03 a day as ity of Kit 00:00: directed [place] 00 Medical Branch albuterol 2022-05 Yes [id number] 2.5mg Inhale 0.5 Univers 2.5 mg/0.5 1-03 mL every 6 ity of mL 00:00: (six) [place] nebulizer 00 hours as Medica l solution needed for Branc h Wheezing. albuterol 2022-05 Yes [id number] 2{puff} Inhale 2 [facility] 90 1-03 Puffs ity of mcg/actuati 00:00: every 4 [place] as on inhaler 00 (four) Medical hours as Branch needed for Wheezing or Shortness of Breath. spironolact 2022-05 Yes [id number] 25mg Take 1 [facility] one 25 mg 1-03 tablet by ity o f tablet 00:00: mouth [place] 00 every Medical morning. Branch apixaban 2022-05 Yes 5mg Take 1 [facility] (ELIQUIS) 5 1-03 tablet by ity of mg tablet 00:00: mouth in [place] 00 the Medical morning Branch and 1 tablet in the evening. Indication s: PE atorvastati 2022-05 Yes [id number] 10mg Take 1 [facility] n 10 mg 1-03 tablet by ity of tablet 00:00: mouth at [place] 00 bedtime. Medical Branch budesonide 2022-05 Yes [id number] .5mg Inhale 2 [facility] 0.5 mg/2 mL 1-03 mL 2 (two) it y of nebulizer 00:00: times [place] solution 00 daily as Medical needed for Branch Other (Shortness of breath). budesonide- 2022-05 Yes [id number] 2{puff} Inhale 2 [facility] formoteroL 1-03 Puffs in ity o f 160-4.5 00:00: the [place] mcg/actuati 00 morning Medic al on inhaler and 2 Branch Puffs in the evening. carvediloL 2022-05 Yes [id number] TAKE 1 U nivers 3.125 mg 1-03 TABLET BY ity of tablet 00:00: MOUTH IN [place] 00 THE Medical MORNING Branch AND IN THE EVENING WITH MEALS furosemide 2022-05 Yes [id number] 40mg Take 1 U nivers 40 mg 1-03 tablet by ity of tablet 00:00: mouth in [place] 00 the Medical morning Branch and 1 tablet in the evening. ibuprofen 2022-05 Yes [id number] 800mg Take 1 [facility] 800 mg 1-03 [id number] tablet by ity of tablet 00:00: mouth [place] 00 every 8 Medical (eight) Branch hours as needed for Pain (scale 4-6) or Temp > 38.5 C. KCL 10 mEq 2022-05 Yes [id number] TAKE ONE [facility] tablet 1-03 TABLET BY ity of 00:00: MOUTH [place] [address] EVERY Medical MORNING. Branch TAKE WITH FUROSEMIDE lisinopriL 2022-05 Yes [id number] 20mg Take 1 U nivers 20 mg 1-03 tablet by ity of tablet 00:00: mouth in [place] 00 the Medical morning. Branch metFORMIN 2022-05 Yes [id number] 500mg Take 1 [facility] 500 mg 1-03 tablet by ity of tablet 00:00: mouth in [place] 00 the Medical morning Branch and 1 tablet in the evening. Take with meals. methocarbam 2022-05 Yes [id number] 500mg Take 1 [facility] oL 500 mg 1-03 tablet by ity o f tablet 00:00: mouth 3 [place] 00 (three) Medical times Branch daily as needed for Pain (scale 4-6). empaglifloz 2022-05 Yes [id number] 10mg Take 1 [facility] in 10 mg 1-03 tablet by ity of 00:00: mouth in [place] 00 the Medical morning. Branch Lancing 2022-05 Yes [id number] Use BID as [facility] Device with 1-03 directed ity of Lancets 00:00: [place] (MULTI-LANC 00 Medical ET DEVICE Branch 2) Kit blood sugar 2022-05 Yes [id number] Test twice [facility] diagnostic 1-03 a day ity of (BLOOD 00:00: [place] GLUCOSE 00 Medical TEST) strip Branch Blood-Gluco 2022-05 Yes [id number] Use twice [facility] se Meter 1-03 a day as ity of Kit 00:00: directed [place] 00 Medical Branch albuterol 2022-05 Yes [id number] 2.5mg Inhale 0.5 Univers 2.5 mg/0.5 1-03 mL every 6 ity of mL 00:00: (six) [place] nebulizer 00 hours as Medica l solution needed for Branc h Wheezing. albuterol 2022-05 Yes [id number] 2{puff} Inhale 2 [facility] 90 1-03 Puffs ity of mcg/actuati 00:00: every 4 [place] as on inhaler 00 (four) Medical hours as Branch needed for Wheezing or Shortness of Breath. spironolact 2022-05 Yes [id number] 25mg Take 1 [facility] one 25 mg 1-03 tablet by ity o f tablet 00:00: mouth [place] 00 every Medical morning. Branch apixaban 2022-05 Yes 5mg Take 1 [facility] (ELIQUIS) 5 1-03 tablet by ity of mg tablet 00:00: mouth in [place] 00 the Medical morning Branch and 1 tablet in the evening. Indication s: PE atorvastati 2022-05 Yes [id number] 10mg Take 1 [facility] n 10 mg 1-03 tablet by ity of tablet 00:00: mouth at [place] 00 bedtime. Medical Branch budesonide 2022-05 Yes [id number] .5mg Inhale 2 [facility] 0.5 mg/2 mL 1-03 mL 2 (two) it y of nebulizer 00:00: times [place] solution 00 daily as Medical needed for Branch Other (Shortness of breath). budesonide- 2022-05 Yes [id number] 2{puff} Inhale 2 [facility] formoteroL 1-03 Puffs in ity o f 160-4.5 00:00: the [place] mcg/actuati 00 morning Medic al on inhaler and 2 Branch Puffs in the evening. carvediloL 2022-05 Yes [id number] TAKE 1 U nivers 3.125 mg 1-03 TABLET BY ity of tablet 00:00: MOUTH IN [place] 00 THE Medical MORNING Branch AND IN THE EVENING WITH MEALS furosemide 2022-05 Yes [id number] 40mg Take 1 U nivers 40 mg 1-03 tablet by ity of tablet 00:00: mouth in [place] 00 the Medical morning Branch and 1 tablet in the evening. ibuprofen 2022-05 Yes [id number] 800mg Take 1 [facility] 800 mg 1-03 [id number] tablet by ity of tablet 00:00: mouth [place] 00 every 8 Medical (eight) Branch hours as needed for Pain (scale 4-6) or Temp > 38.5 C. KCL 10 mEq 2022-05 Yes [id number] TAKE ONE [facility] tablet 1-03 TABLET BY ity of 00:00: MOUTH [place] 00 EVERY Medical MORNING. Branch TAKE WITH FUROSEMIDE lisinopriL 2022-05 Yes [id number] 20mg Take 1 U nivers 20 mg 1-03 tablet by ity of tablet 00:00: mouth in [place] 00 the Medical morning. Branch metFORMIN 2022-05 Yes [id number] 500mg Take 1 [facility] 500 mg 1-03 tablet by ity of tablet 00:00: mouth in [place] 00 the Medical morning Branch and 1 tablet in the evening. Take with meals. methocarbam 2022-05 Yes [id number] 500mg Take 1 [facility] oL 500 mg 1-03 tablet by ity o f tablet 00:00: mouth 3 [place] 00 (three) Medical times Branch daily as needed for Pain (scale 4-6). empaglifloz 2022-05 Yes [id number] 10mg Take 1 [facility] in 10 mg 1-03 tablet by ity of 00:00: mouth in [place] 00 the Medical morning. Branch Lancing 2022-05 Yes [id number] Use BID as [facility] Device with 03 directed ity of Lancets 00:00: [place] (MULTI-LANC 00 Medical ET DEVICE Branch 2) Kit blood sugar 2022-05 Yes [id number] Test twice [facility] diagnostic 1-03 a day ity of (BLOOD 00:00: [place] GLUCOSE 00 Medical TEST) strip Branch Blood-Gluco 2022-05 Yes [id number] Use twice Univers se Meter 1-03 a day as ity of Kit 00:00: directed [place] 00 Medical Branch benzonatate 2022-05- No [id number] 100mg Take 1 [facility] 100 mg -03-13 capsule by ity of capsule 00:00: 00:00 mouth 3 [place] 00 :00 (three) Medical times Branch daily as needed for Cough. benzonatate 2022-05 No [id number] 100mg Take 1 [facility] 100 mg 05-07 capsule by ity of capsule 00:00: 00:00 mouth 3 [place] 00 :00 (three) Medical times Branch daily as needed for Cough. HYDROcodone 2022-05- No [id number] 1{tbl} Take 1 U nivers -acetaminop 1-03 -03 tablet by it y of hen (Picket) 00:00: 00:00 mouth [place] 10-325 mg 00 :00 every 6 Medical tablet (six) Branch hours as needed for Pain (scale 7-10) for up to 8 doses. Indication s: acute pain HYDROcodone 2022-05 No [id number] 1{tbl} Take 1 U nivers -acetaminop -03-07 tablet by it y of hen (Picket) 00:00: 00:00 mouth [place] 10-325 mg 00 :00 every 6 Medical tablet (six) Branch hours as needed for Pain (scale 7-10) for up to 8 doses. Indication s: acute pain HYDROcodone 2022-05 No [id number] 1{tbl} Take 1 U nivers -acetaminop -03 - tablet by it y of hen (Picket) 00:00: 00:00 mouth [place] 10-325 mg 00 :00 every 6 Medical tablet (six) Branch hours as needed for Pain (scale 7-10) for up to 8 doses. Indication s: acute pain HYDROcodone 2022-05- No 1{tbl} 1 tablet, Univers -acetaminop 0-31 10-31 Oral, ity of hen (NORCO 14:30: 14:56 ONCE, 1 [place] as 5) 5-325 mg 00 :00 dose, On Medi pablito tablet 1 Tue Branch tablet 03/04/23 at 0930, Routine, PACU HYDROcodone 2022-05- No 1{tbl} 1 tablet, Univers -acetaminop 0-31 10-31 Oral, ity of hen (NORCO 14:30: 14:56 ONCE, 1 [place] as 5) 5-325 mg 00 :00 dose, On Medi pablito tablet 1 Tue Branch tablet 03/04/23 at 0930, Routine, PACU HYDROmorpho 2022-05- No .5mg 0.5 mg, Un nel ne 0-31 10-31 Slow IV ity of (DILAUDID) 14:26: 15:20 Push, PRN, [place] injection 44 :00 4 doses, Medica l 0.5 mg Starting Branch on Fri03/04/23 at 0926, Until Fri03/04/23 at 1020, Routine, Pain (scale 7-10), PRN q5 min x 4 doses. For PACU use ONLY, PACU
Us e approved by (Faculty): PACU USE -ANESTHESI A SERVICE-HY DROMORPHON E INJECTIONS HYDROmorpho 2022-05- No .5mg 0.5 mg, Un nel ne 0-31 10-31 Slow IV ity of (DILAUDID) 14:26: 15:20 Push, PRN, [place] injection 44 :00 4 doses, Medica l 0.5 mg Starting Branch on Fri03/04/23 at 0926, Until Fri03/04/23 at 1020, Routine, Pain (scale 7-10), PRN q5 min x 4 doses. For PACU use ONLY, PACU
Us e approved by (Faculty): PACU USE -ANESTHESI A SERVICE-HY DROMORPHON E INJECTIONS FENTanyl PF 2022-05 Yes 25ug 25 mcg, Uni vers (SUBLIMAZE 0-31 Slow IV ity of (PF)) 14:20: Push, [place] injection 07 Q5MIN PRN, Medi pablito 25 mcg 4 doses, Branch Starting on Fri03/04/23 at 0920, Until Discontinu ed, Routine, Pain (scale 4-6), PACU FENTanyl PF 2022-05- No 25ug 25 mcg, Un nel (SUBLIMAZE 0-31 10-31 Slow IV ity o f (PF)) 14:20: 14:45 Push, [place] injection 07 :00 Q5MIN PRN, Medi pablito 25 mcg 4 doses, Branch Starting on Fri03/04/23 at 0920, Until Discontinu ed, Routine, Pain (scale 7-10), PACU FENTanyl PF 2022-05- No 25ug 25 mcg, Un nel (SUBLIMAZE 0-31 10-31 Slow IV ity o f (PF)) 14:20: 18:46 Push, [place] injection 07 :05 Q5MIN PRN, Medi pablito 25 mcg 4 doses, Branch Starting on Fri03/04/23 at 0920, Until Fri03/04/23 at 1346, Routine, Pain (scale 4-6), PACU ondansetron 2022-05- No 4mg 4 mg, Slow Univers (ZOFRAN 03-04 IV Push, ity of (PF)) 14:20: 14:50 PRN, 1 [place] injection 4 07 :00 dose, Medical mg Starting Branch on Fri03/04/23 at 0920, Until Discontinu ed, Routine, Nausea and Vomiting (N/V), PACU FENTanyl PF 2022-05- No 25ug 25 mcg, Un nel (SUBLIMAZE 03-04 Slow IV ity o f (PF)) 14:20: 14:45 Push, [place] injection 07 :00 Q5MIN PRN, Medi pablito 25 mcg 4 doses, Branch Starting on Fri03/04/23 at 0920, Until Discontinu ed, Routine, Pain (scale 7-10), PACU ondansetron 2022-05- No 4mg 4 mg, Slow Univers (ZOFRAN 03-04 IV Push, ity of (PF)) 14:20: 14:50 PRN, 1 [place] injection 4 07 :00 dose, Medical mg Starting Branch on Fri03/04/23 at 0920, Until Discontinu ed, Routine, Nausea and Vomiting (N/V), PACU sodium 2022-05- No PRN, Univers chloride 03-04 Starting ity of 0.9 % 13:34: 14:18 on Fri irrigation 00 :53 03/04/23 Medic al solution at 0834, Branch Until Fri03/04/23 at 0918, Intra-op bupivacaine 2022-05- No PRN, Unive rs (preserv 03-04 Starting ity of free) 12:44: 14:18 on Fri (SENSORCAIN 00 :53 03/04/23 Medi pablito E MPF) 0.25 at 0744, Bran ch % (2.5 Intra-op mg/mL) 5 mL, lidocaine-e pinephrine (XYLOCAINE W/EPINEPHRI NE) 1 %-1:200,000 5 mL HYDROcodone 2022-05 Yes 1{tbl} Take 1 Un nel -acetaminop 0-31 tablet by ity of hen 10-325 11:46: mouth [place] mg tablet 02 every 6 Medical (six) Branch hours as needed for Pain (scale 7-10). carisoprodo 2022-05 Yes 350mg Take 1 Uni vers L 350 mg 0-31 tablet by ity of tablet 11:46: mouth. [address] aspirin 81 2022-05 Yes Univers mg EC 0-31 ity of tablet 11:46: [address] clindamycin 2022-05 Yes TAKE 2 Univ ers 150 mg 0-31 CAPSULES ity of capsule 11:46: BY MOUTH [place] [address] FOUR TIMES Medical DAILY FOR Branch 7 DAYS furosemide 2022-05 Yes furosemide U nivers 40 mg 0-31 40 mg ity of tablet 11:46: tablet [address] meloxicam 2022-05 Yes meloxicam Uni vers 15 mg 0-31 15 mg ity of tablet 11:46: tablet [place] 02 TAKE 1 Medical TABLET BY Branch MOUTH EVERY DAY FOR 16 DAYS methocarbam 2022-05 Yes methocarba Univers oL 500 mg 0-31 mol 500 mg ity of tablet 11:46: tablet [place] 02 TAKE 1 Medical TABLET BY Branch MOUTH TWICE DAILY FOR 16 DAYS DIRECTED predniSONE 2022-05 Yes prednisone U nivers 50 mg 0-31 50 mg ity of tablet 11:46: tablet [place] [address] TAKE 1 Medical TABLET BY Branch MOUTH DAILY WITH BREAKFAST FOR 5 DAYS ranolazine 2022-05 Yes 500mg Take 1 Univ ers 500 mg 12 0-31 tablet by ity o f hr tablet 11:46: mouth in [place] [facility] 02 the Medical morning Branch and 1 tablet in the evening. spironolact 2022-05 Yes 25mg Take 1 Univ ers one 25 mg 0-31 tablet by ity o f tablet 11:46: mouth [place] 02 every Medical morning. Branch zolpidem 5 2022-05 Yes zolpidem 5 U nivers mg tablet 0-31 mg tablet ity o f 11:46: [address] HYDROcodone 2022-05 Yes 1{tbl} Take 1 Un nel -acetaminop 0-31 tablet by ity of hen 10-325 11:46: mouth [place] mg tablet 02 every 6 Medical (six) Branch hours as needed for Pain (scale 7-10). carisoprodo 2022-05 Yes 350mg Take 1 Uni vers L 350 mg 0-31 tablet by ity of tablet 11:46: mouth. [place] [facility] Branch aspirin 81 2022-05 Yes Univers mg EC 0-31 ity of tablet 11:46: [place] [facility] Branch clindamycin 2022-05 Yes TAKE 2 Univ ers 150 mg 0-31 CAPSULES ity of capsule 11:46: BY MOUTH [place] FOUR TIMES Medical DAILY FOR Branch 7 DAYS furosemide 2022-05 Yes furosemide U nivers 40 mg 0-31 40 mg ity of tablet 11:46: tablet [facility] Branch meloxicam 2022-05 Yes meloxicam Uni vers 15 mg 0-31 15 mg ity of tablet 11:46: tablet [place] TAKE 1 Medical TABLET BY Branch MOUTH EVERY DAY FOR 16 DAYS methocarbam 2022-05 Yes methocarba [facility] oL 500 mg 0-31 mol 500 mg ity of tablet 11:46: tablet [place] TAKE 1 Medical TABLET BY Branch MOUTH TWICE DAILY FOR 16 DAYS DIRECTED predniSONE 2022-05 Yes prednisone U nivers 50 mg 0-31 50 mg ity of tablet 11:46: tablet [place] TAKE 1 Medical TABLET BY Branch MOUTH DAILY WITH BREAKFAST FOR 5 DAYS ranolazine 2022-05 Yes 500mg Take 1 Univ ers 500 mg 12 0-31 tablet by ity o f hr tablet 11:46: mouth in [place] [facility] 02 the Medical morning Branch and 1 tablet in the evening. spironolact 2022-05 Yes 25mg Take 1 Univ ers one 25 mg 0-31 tablet by ity o f tablet 11:46: mouth [place] 02 every Medical morning. Branch zolpidem 5 2022-05 Yes zolpidem 5 U nivers mg tablet 0-31 mg tablet ity o f 11:46: [place] [facility] Branch HYDROcodone 2022-05 Yes 1{tbl} Take 1 Un nel -acetaminop 0-31 tablet by ity of hen 10-325 11:46: mouth [place] mg tablet 02 every 6 Medical (six) Branch hours as needed for Pain (scale 7-10). carisoprodo 2022-05 Yes 350mg Take 1 Uni vers L 350 mg 0-31 tablet by ity of tablet 11:46: mouth. [place] [facility] aspirin 81 2022-05 Yes Univers mg EC 0-31 ity of tablet 11:46: [facility] clindamycin 2022-05 Yes TAKE 2 Univ ers 150 mg 0-31 CAPSULES ity of capsule 11:46: BY MOUTH [place] FOUR TIMES Medical DAILY FOR Branch 7 DAYS furosemide 2022-05 Yes furosemide U nivers 40 mg 0-31 40 mg ity of tablet 11:46: tablet [facility] meloxicam 2022-05 Yes meloxicam Uni vers 15 mg 0-31 15 mg ity of tablet 11:46: tablet [place] TAKE 1 Medical TABLET BY Branch MOUTH EVERY DAY FOR 16 DAYS methocarbam 2022-05 Yes methocarba [facility] oL 500 mg 0-31 mol 500 mg ity of tablet 11:46: tablet [place] TAKE 1 Medical TABLET BY Branch MOUTH TWICE DAILY FOR 16 DAYS DIRECTED predniSONE 2022-05 Yes prednisone U nivers 50 mg 0-31 50 mg ity of tablet 11:46: tablet [place] TAKE 1 Medical TABLET BY Branch MOUTH DAILY WITH BREAKFAST FOR 5 DAYS ranolazine 2022-05 Yes 500mg Take 1 Univ ers 500 mg 12 0-31 tablet by ity o f hr tablet 11:46: mouth in [place] [facility] the Medical morning Branch and 1 tablet in the evening. spironolact 2022-05 Yes 25mg Take 1 Univ ers one 25 mg 0-31 tablet by ity o f tablet 11:46: mouth [place] every Medical morning. Branch zolpidem 5 2022-05 Yes zolpidem 5 U nivers mg tablet 0-31 mg tablet ity o f 11:46: [address] HYDROcodone 2022-05 Yes 1{tbl} Take 1 Un nel -acetaminop 0-31 tablet by ity of hen 10-325 11:46: mouth [place] mg tablet 02 every 6 Medical (six) Branch hours as needed for Pain (scale 7-10). carisoprodo 2022-05 Yes 350mg Take 1 Uni vers L 350 mg 0-31 tablet by ity of tablet 11:46: mouth. [address] aspirin 81 2022-05 Yes Univers mg EC 0-31 ity of tablet 11:46: [address] clindamycin 2022-05 Yes TAKE 2 Univ ers 150 mg 0-31 CAPSULES ity of capsule 11:46: BY MOUTH [place] [address] FOUR TIMES Medical DAILY FOR Branch 7 DAYS furosemide 2022-05 Yes furosemide U nivers 40 mg 0-31 40 mg ity of tablet 11:46: tablet [address] meloxicam 2022-05 Yes meloxicam Uni vers 15 mg 0-31 15 mg ity of tablet 11:46: tablet [place] TAKE 1 Medical TABLET BY Branch MOUTH EVERY DAY FOR 16 DAYS methocarbam 2022-05 Yes methocarba [facility] oL 500 mg 0-31 mol 500 mg ity of tablet 11:46: tablet [place] TAKE 1 Medical TABLET BY Branch MOUTH TWICE DAILY FOR 16 DAYS DIRECTED predniSONE 2022-05 Yes prednisone U nivers 50 mg 0-31 50 mg ity of tablet 11:46: tablet [place] TAKE 1 Medical TABLET BY Branch MOUTH DAILY WITH BREAKFAST FOR 5 DAYS ranolazine 2022-05 Yes 500mg Take 1 Univ ers 500 mg 12 0-31 tablet by ity o f hr tablet 11:46: mouth in [place] [facility] 02 the Medical morning Branch and 1 tablet in the evening. spironolact 2022-05 Yes 25mg Take 1 Univ ers one 25 mg 0-31 tablet by ity o f tablet 11:46: mouth [place] every Medical morning. Branch zolpidem 5 2022-05 Yes zolpidem 5 U nivers mg tablet 0-31 mg tablet ity o f 11:46: [address] HYDROcodone 2022-05 Yes 1{tbl} Take 1 Un nel -acetaminop 0-31 tablet by ity of hen 10-325 11:46: mouth [place] mg tablet 02 every 6 Medical (six) Branch hours as needed for Pain (scale 7-10). carisoprodo 2022-05 Yes 350mg Take 1 Uni vers L 350 mg 0-31 tablet by ity of tablet 11:46: mouth. [address] aspirin 81 2022-05 Yes Univers mg EC 0-31 ity of tablet 11:46: [address] clindamycin 2022-05 Yes TAKE 2 Univ ers 150 mg 0-31 CAPSULES ity of capsule 11:46: BY MOUTH [place] [address] FOUR TIMES Medical DAILY FOR Branch 7 DAYS furosemide 2022-05 Yes furosemide U nivers 40 mg 0-31 40 mg ity of tablet 11:46: tablet [place] [facility] meloxicam 2022-05 Yes meloxicam Uni vers 15 mg 0-31 15 mg ity of tablet 11:46: tablet [place] TAKE 1 Medical TABLET BY Branch MOUTH EVERY DAY FOR 16 DAYS methocarbam 2022-05 Yes methocarba Univers oL 500 mg 0-31 mol 500 mg ity of tablet 11:46: tablet [place] TAKE 1 Medical TABLET BY Branch MOUTH TWICE DAILY FOR 16 DAYS DIRECTED predniSONE 2022-05 Yes prednisone U nivers 50 mg 0-31 50 mg ity of tablet 11:46: tablet [place] TAKE 1 Medical TABLET BY Branch MOUTH DAILY WITH BREAKFAST FOR 5 DAYS ranolazine 2022-05 Yes 500mg Take 1 Univ ers 500 mg 12 0-31 tablet by ity o f hr tablet 11:46: mouth in [place] [facility] 02 the Medical morning Branch and 1 tablet in the evening. spironolact 2022-05 Yes 25mg Take 1 Univ ers one 25 mg 0-31 tablet by ity o f tablet 11:46: mouth [place] every Medical morning. Branch zolpidem 5 2022-05 Yes zolpidem 5 U nivers mg tablet 0-31 mg tablet ity o f 11:46: [place] [facility] carisoprodo 2022-05 Yes 350mg Take 1 Uni vers L 350 mg 0-31 tablet by ity of tablet 05:37: mouth. [address] aspirin 81 2022-05 Yes Univers mg EC 0-31 ity of tablet 05:37: [address] clindamycin 2022-05 Yes TAKE 2 Univ ers 150 mg 0-31 CAPSULES ity of capsule 05:37: BY MOUTH [place] [address] FOUR TIMES Medical DAILY FOR Branch 7 DAYS furosemide 2022-05 Yes furosemide U nivers 40 mg 0-31 40 mg ity of tablet 05:37: tablet [address] meloxicam 2022-05 Yes meloxicam Uni vers 15 mg 0-31 15 mg ity of tablet 05:37: tablet [place] [address] TAKE 1 Medical TABLET BY Branch MOUTH EVERY DAY FOR 16 DAYS methocarbam 2022-05 Yes methocarba Univers oL 500 mg 0-31 mol 500 mg ity of tablet 05:37: tablet [place] TAKE 1 Medical TABLET BY Branch MOUTH TWICE DAILY FOR 16 DAYS DIRECTED predniSONE 2022-05 Yes prednisone U nivers 50 mg 0-31 50 mg ity of tablet 05:37: tablet [place] 05 TAKE 1 Medical TABLET BY Branch MOUTH DAILY WITH BREAKFAST FOR 5 DAYS ranolazine 2022-05 Yes 500mg Take 1 Univ ers 500 mg 12 0-31 tablet by ity o f hr tablet 05:37: [place] 05 the Medical morning Branch and 1 tablet in the evening. spironolact 2022-05 Yes 25mg Take 1 Univ ers one 25 mg 0-31 tablet by ity o f tablet 05:37: mouth [place] 05 every Medical morning. Branch zolpidem 5 2022-05 Yes zolpidem 5 U nivers mg tablet 0-31 mg tablet ity o f 05:37: [place] 05 Medical Branch HYDROcodone 2022-05 Yes [id number] 1{tbl} Take 1 Un nel -acetaminop 0-31 tablet by ity of hen (NORCO) 00:00: mouth [place] 10-325 mg 00 every 6 Medical tablet (six) Branch hours as needed for Pain (scale 7-10) for up to 15 doses. Indication s: acute pain HYDROcodone 2022-05 Yes 4647 1{tbl} Take 1 Un nel -acetaminop 0-31 tablet by ity of hen (NORCO) 00:00: mouth [place] 10-325 mg 00 every 6 Medical tablet (six) Branch hours as needed for Pain (scale 7-10) for up to 15 doses. Indication s: acute pain HYDROcodone 2022-05 Yes 4647 1{tbl} Take 1 Un nel -acetaminop 0-31 tablet by ity of hen (NORCO) 00:00: mouth [place] 10-325 mg 00 every 6 Medical tablet (six) Branch hours as needed for Pain (scale 7-10) for up to 15 doses. Indication s: acute pain HYDROcodone 2022-05 Yes 4647 1{tbl} Take 1 Un nel -acetaminop 0-31 tablet by ity of hen (NORCO) 00:00: mouth [place] 5-325 mg 00 every 6 Medical tablet (six) Branch hours as needed for Pain (scale 7-10) for up to 15 doses. Indication s: acute pain HYDROcodone 2022-05- No 4647 1{tbl} Take 1 U nivers -acetaminop 0-31 11-03 tablet by it y of hen (NORCO) 00:00: 00:00 mouth [place] 10-325 mg 00 :00 every 6 Medical tablet (six) Branch hours as needed for Pain (scale 7-10) for up to 15 doses. Indication s: acute pain HYDROcodone 2022-05- No 4647 1{tbl} Take 1 U nivers -acetaminop 0-31 10-31 tablet by it y of hen (NORCO) 00:00: 00:00 mouth [place] 5-325 mg 00 :00 every 6 Medical tablet (six) Branch hours as needed for Pain (scale 7-10) for up to 15 doses. Indication s: acute pain carisoprodo 2022-05 Yes 350mg Take 1 Uni vers L 350 mg 0-23 tablet by ity of tablet 16:45: mouth. [address] aspirin 81 2022-05 Yes Univers mg EC 0-23 ity of tablet 16:45: [address] clindamycin 2022-05 Yes TAKE 2 Univ ers 150 mg 0-23 CAPSULES ity of capsule 16:45: BY MOUTH [place] [address] FOUR TIMES Medical DAILY FOR Branch 7 DAYS furosemide 2022-05 Yes furosemide U nivers 40 mg 0-23 40 mg ity of tablet 16:45: tablet [address] meloxicam 2022-05 Yes meloxicam Uni vers 15 mg 0-23 15 mg ity of tablet 16:45: tablet [place] [address] TAKE 1 Medical TABLET BY Branch MOUTH EVERY DAY FOR 16 DAYS methocarbam 2022-05 Yes methocarba Univers oL 500 mg 0-23 mol 500 mg ity of tablet 16:45: tablet [place] [address] TAKE 1 Medical TABLET BY Branch MOUTH TWICE DAILY FOR 16 DAYS DIRECTED predniSONE 2022-05 Yes prednisone U nivers 50 mg 0-23 50 mg ity of tablet 16:45: tablet [place] [address] TAKE 1 Medical TABLET BY Branch MOUTH DAILY WITH BREAKFAST FOR 5 DAYS ranolazine 2022-05 Yes 500mg Take 1 Univ ers 500 mg 12 0-23 tablet by ity o f hr tablet 16:45: mouth in [facility] 39 the Medical morning Branch and 1 tablet in the evening. spironolact 2022-05 Yes 25mg Take 1 Univ ers one 25 mg 0-23 tablet by ity o f tablet 16:45: mouth [place] 39 every Medical morning. Branch zolpidem 5 2022-05 Yes zolpidem 5 U nivers mg tablet 0-23 mg tablet ity o f 16:45: [address] carisoprodo 2022-05 Yes 350mg Take 1 Uni vers L 350 mg 0-23 tablet by ity of tablet 16:45: mouth. [address] aspirin 81 2022-05 Yes Univers mg EC 0-23 ity of tablet 16:45: [address] clindamycin 2022-05 Yes TAKE 2 Univ ers 150 mg 0-23 CAPSULES ity of capsule 16:45: BY MOUTH [place] [address] FOUR TIMES Medical DAILY FOR Branch 7 DAYS furosemide 2022-05 Yes furosemide U nivers 40 mg 0-23 40 mg ity of tablet 16:45: tablet [address] meloxicam 2022-05 Yes meloxicam Uni vers 15 mg 0-23 15 mg ity of tablet 16:45: tablet [place] [address] TAKE 1 Medical TABLET BY Branch MOUTH EVERY DAY FOR 16 DAYS methocarbam 2022-05 Yes methocarba Univers oL 500 mg 0-23 mol 500 mg ity of tablet 16:45: tablet [place] [address] TAKE 1 Medical TABLET BY Branch MOUTH TWICE DAILY FOR 16 DAYS DIRECTED predniSONE 2022-05 Yes prednisone U nivers 50 mg 0-23 50 mg ity of tablet 16:45: tablet [place] [address] TAKE 1 Medical TABLET BY Branch MOUTH DAILY WITH BREAKFAST FOR 5 DAYS ranolazine 2022-05 Yes 500mg Take 1 Univ ers 500 mg 12 0-23 tablet by ity o f hr tablet 16:45: mouth in [place] [address] the Medical morning Branch and 1 tablet in the evening. spironolact 2022-05 Yes 25mg Take 1 Univ ers one 25 mg 0-23 tablet by ity o f tablet 16:45: mouth [place] [address] every Medical morning. Branch zolpidem 5 2022-05 Yes zolpidem 5 U nivers mg tablet 0-23 mg tablet ity o f 16:45: [address] carisoprodo 2022-05 Yes 350mg Take 1 Uni vers L 350 mg 0-23 tablet by ity of tablet 16:45: mouth. [address] aspirin 81 2022-05 Yes Univers mg EC 0-23 ity of tablet 16:45: [address] clindamycin 2022-05 Yes TAKE 2 Univ ers 150 mg 0-23 CAPSULES ity of capsule 16:45: BY MOUTH [place] [address] FOUR TIMES Medical DAILY FOR Branch 7 DAYS furosemide 2022-05 Yes furosemide U nivers 40 mg 0-23 40 mg ity of tablet 16:45: tablet [place] [address] Medical Branch meloxicam 2022-05 Yes meloxicam Uni vers 15 mg 0-23 15 mg ity of tablet 16:45: tablet [place] [address] TAKE 1 Medical TABLET BY Branch MOUTH EVERY DAY FOR 16 DAYS methocarbam 2022-05 Yes methocarba Univers oL 500 mg 0-23 mol 500 mg ity of tablet 16:45: tablet [place] 39 TAKE 1 Medical TABLET BY Branch MOUTH TWICE DAILY FOR 16 DAYS DIRECTED predniSONE 2022-05 Yes prednisone U nivers 50 mg 0-23 50 mg ity of tablet 16:45: tablet [place] [address] TAKE 1 Medical TABLET BY Branch MOUTH DAILY WITH BREAKFAST FOR 5 DAYS ranolazine 2022-05 Yes 500mg Take 1 Univ ers 500 mg 12 0-23 tablet by ity o f hr tablet 16:45: mouth in [place] [address] the Medical morning Branch and 1 tablet in the evening. spironolact 2022-05 Yes 25mg Take 1 Univ ers one 25 mg 0-23 tablet by ity o f tablet 16:45: mouth [place] [address] every Medical morning. Branch zolpidem 5 2022-05 Yes zolpidem 5 U nivers mg tablet 0-23 mg tablet ity o f 16:45: [place] [address] Medical Branch HYDROcodone 2022-05 Yes 1{tbl} Take 1 Un nel -acetaminop 0-23 tablet by ity of hen 10-325 16:06: mouth [place] mg tablet 07 every 6 Medical (six) Branch hours as needed for Pain (scale 7-10). HYDROcodone 2022-05 Yes 1{tbl} Take 1 Un nel -acetaminop 0-23 tablet by ity of hen 10-325 16:06: mouth [place] mg tablet 07 every 6 Medical (six) Branch hours as needed for Pain (scale 7-10). HYDROcodone 2022-05 Yes 1{tbl} Take 1 Un nel -acetaminop 0-23 tablet by ity of hen 10-325 16:06: mouth [place] mg tablet 07 every 6 Medical (six) Branch hours as needed for Pain (scale 7-10). HYDROcodone 2022-05 Yes 1{tbl} Take 1 Un nel -acetaminop 0-23 tablet by ity of hen 10-325 16:06: mouth [place] mg tablet 07 every 6 Medical (six) Branch hours as needed for Pain (scale 7-10). albuterol 2022-05 Yes [id number] 2{puff} Inhale 2 Univers 90 0-18 Puffs ity of mcg/actuati 00:00: every 4 [place] on inhaler 00 (four) Medical hours as Branch needed for Wheezing or Shortness of Breath. albuterol 2022-05 Yes [id number] 2{puff} Inhale 2 Univers 90 0-18 Puffs ity of mcg/actuati 00:00: every 4 [place] on inhaler 00 (four) Medical hours as Branch needed for Wheezing or Shortness of Breath. albuterol 2022-05 Yes [id number] 2{puff} Inhale 2 Univers 90 0-18 Puffs ity of mcg/actuati 00:00: every 4 [place] on inhaler 00 (four) Medical hours as Branch needed for Wheezing or Shortness of Breath. albuterol 2022-05 Yes [id number] 2{puff} Inhale 2 Univers 90 0-18 Puffs ity of mcg/actuati 00:00: every 4 [place] on inhaler 00 (four) Medical hours as Branch needed for Wheezing or Shortness of Breath. albuterol 2022-05 Yes [id number] 2{puff} Inhale 2 Univers 90 0-18 Puffs ity of mcg/actuati 00:00: every 4 [place] on inhaler 00 (four) Medical hours as Branch needed for Wheezing or Shortness of Breath. albuterol 2022-05 Yes [id number] 2{puff} Inhale 2 Univers 90 0-18 Puffs ity of mcg/actuati 00:00: every 4 [place] on inhaler 00 (four) Medical hours as Branch needed for Wheezing or Shortness of Breath. albuterol 2022-05 Yes [id number] 2{puff} Inhale 2 Univers 90 0-18 Puffs ity of mcg/actuati 00:00: every 4 [place] on inhaler 00 (four) Medical hours as Branch needed for Wheezing or Shortness of Breath. albuterol 2022-05 Yes [id number] 2{puff} Inhale 2 Univers 90 0-18 Puffs ity of mcg/actuati 00:00: every 4 [place] on inhaler 00 (four) Medical hours as Branch needed for Wheezing or Shortness of Breath. albuterol 2022-05- No [id number] 2{puff} Inhale 2 Univers 90 0-18 11-03 Puffs ity of mcg/actuati 00:00: 00:00 every 4 [place] inhaler 00 :00 (four) Medical hours as Branch needed for Wheezing or Shortness of Breath. albuterol 2022-05- No [id number] 2{puff} Inhale 2 Univers 90 0-18 11-03 Puffs ity of mcg/actuati 00:00: 00:00 every 4 [place] inhaler 00 :00 (four) Medical hours as Branch needed for Wheezing or Shortness of Breath. albuterol 2022-05- No [id number] 2{puff} Inhale 2 Univers 90 0-18 11-03 Puffs ity of mcg/actuati 00:00: 00:00 every 4 [place] inhaler 00 :00 (four) Medical hours as Branch needed for Wheezing or Shortness of Breath. carisoprodo 2022-05 350mg Take 1 Un nel L 350 mg 0-10 10-10 tablet by ity o f tablet 16:34: 00:00 mouth in [place] 29 :00 the Medical morning Branch and 1 tablet at noon and 1 tablet in the evening. TIZANIDINE 2022-05 Yes [id number] TAKE 1 U nivers 4 mg tablet 0-10 TABLET BY ity of 00:00: MOUTH [place] 00 EVERY 6 Medical HOURS Branch NEEDED FOR MODERATE PAIN TIZANIDINE 2022-05 Yes [id number] TAKE 1 U nivers 4 mg tablet 0-10 TABLET BY ity of 00:00: MOUTH [place] 00 EVERY 6 Medical HOURS Branch NEEDED FOR MODERATE PAIN TIZANIDINE 2022-05 Yes [id number] TAKE 1 U nivers 4 mg tablet 0-10 TABLET BY ity of 00:00: MOUTH [place] 00 EVERY 6 Medical HOURS Branch NEEDED FOR MODERATE PAIN TIZANIDINE 2022-05 Yes [id number] TAKE 1 U nivers 4 mg tablet 0-10 TABLET BY ity of 00:00: MOUTH [place] 00 EVERY 6 Medical HOURS Branch NEEDED FOR MODERATE PAIN TIZANIDINE 2022-05 Yes [id number] TAKE 1 U nivers 4 mg tablet 0-10 TABLET BY ity of 00:00: MOUTH [place] 00 EVERY 6 Medical HOURS Branch NEEDED FOR MODERATE PAIN TIZANIDINE 2022-05 Yes [id number] TAKE 1 U nivers 4 mg tablet 0-10 TABLET BY ity of 00:00: MOUTH [place] 00 EVERY 6 Medical HOURS Branch NEEDED FOR MODERATE PAIN TIZANIDINE 2022-05 Yes [id number] TAKE 1 U nivers 4 mg tablet 0-10 TABLET BY ity of 00:00: MOUTH [place] 00 EVERY 6 Medical HOURS Branch NEEDED FOR MODERATE PAIN TIZANIDINE 2022-05 Yes [id number] TAKE 1 U nivers 4 mg tablet 0-10 TABLET BY ity of 00:00: MOUTH [place] 00 EVERY 6 Medical HOURS Branch NEEDED FOR MODERATE PAIN TIZANIDINE 2022-05 Yes [id number] TAKE 1 U nivers 4 mg tablet 0-10 TABLET BY ity of 00:00: MOUTH 00 EVERY 6 Medical HOURS Branch NEEDED FOR MODERATE PAIN TIZANIDINE 2022-05 Yes [id number] TAKE 1 U nivers 4 mg tablet 0-10 TABLET BY ity of 00:00: MOUTH 00 EVERY 6 Medical HOURS Branch NEEDED FOR MODERATE PAIN TIZANIDINE 2022- Yes [id number] TAKE 1 U nivers 4 mg tablet 0-10 TABLET BY ity of 00:00: MOUTH [place] 00 EVERY 6 Medical HOURS Branch NEEDED FOR MODERATE PAIN TIZANIDINE 2022- Yes [id number] TAKE 1 U nivers 4 mg tablet 0-10 TABLET BY ity of 00:00: MOUTH [place] 00 EVERY 6 Medical HOURS Branch NEEDED FOR MODERATE PAIN TIZANIDINE 2022- Yes [id number] TAKE 1 U nivers 4 mg tablet 0-10 TABLET BY ity of 00:00: MOUTH [place] 00 EVERY 6 Medical HOURS Branch NEEDED FOR MODERATE PAIN TIZANIDINE 2022-2022- No [id number] TAKE 1 Univers 4 mg tablet 0-10 11-03 TABLET BY it y of 00:00: 00:00 MOUTH [place] 00 :00 EVERY 6 Medical HOURS Branch NEEDED FOR MODERATE PAIN TIZANIDINE 2022-2022- No [id number] TAKE 1 Univers 4 mg tablet 0-10 11-03 TABLET BY it y of 00:00: 00:00 MOUTH [place] 00 :00 EVERY 6 Medical HOURS Branch NEEDED FOR MODERATE PAIN TIZANIDINE 2022-05- No [id number] TAKE 1 Univers 4 mg tablet 0-10 11-03 TABLET BY it y of 00:00: 00:00 MOUTH [place] 00 :00 EVERY 6 Medical HOURS Branch NEEDED FOR MODERATE PAIN KCL 10 mEq 2022-05 Yes [id number] TAKE ONE Univers tablet 0-04 TABLET BY ity of 00:00: MOUTH [place] [address] EVERY Medical MORNING. Branch TAKE WITH FUROSEMIDE AMITRIPTYLI 2022-05 Yes [id number] TAKE 1 Univers NE 100 mg 0-04 TABLET BY ity o f tablet 00:00: MOUTH AT [place] BEDTIME Medical Branch KCL 10 mEq 2022-05 Yes [id number] TAKE ONE Univers tablet 0-04 TABLET BY ity of 00:00: MOUTH [place] [address] EVERY Medical MORNING. Branch TAKE WITH FUROSEMIDE AMITRIPTYLI 2022-05 Yes [id number] TAKE 1 Univers NE 100 mg 0-04 TABLET BY ity o f tablet 00:00: MOUTH AT [place] BEDTIME Medical Branch KCL 10 mEq 2022-05 Yes [id number] TAKE ONE Univers tablet 0-04 TABLET BY ity of 00:00: MOUTH [place] [address] EVERY Medical MORNING. Branch TAKE WITH FUROSEMIDE AMITRIPTYLI 2022-05 Yes [id number] TAKE 1 Univers NE 100 mg 0-04 TABLET BY ity o f tablet 00:00: MOUTH AT [place] BEDTIME Medical Branch KCL 10 mEq 2022-05 Yes [id number] TAKE ONE Univers tablet 0-04 TABLET BY ity of 00:00: MOUTH [place] [address] EVERY Medical MORNING. Branch TAKE WITH FUROSEMIDE AMITRIPTYLI 2022-05 Yes [id number] TAKE 1 Univers NE 100 mg 0-04 TABLET BY ity o f tablet 00:00: MOUTH AT [place] BEDTIME Medical Branch AMITRIPTYLI 2022-05 Yes [id number] TAKE 1 Univers NE 100 mg 0-04 TABLET BY ity o f tablet 00:00: MOUTH AT [place] BEDTIME Medical Branch AMITRIPTYLI 2022-05 Yes [id number] TAKE 1 Univers NE 100 mg 0-04 TABLET BY ity o f tablet 00:00: MOUTH AT [place] BEDTIME Medical Branch AMITRIPTYLI 2022-05 Yes [id number] TAKE 1 Univers NE 100 mg 0-04 TABLET BY ity o f tablet 00:00: MOUTH AT [place] BEDTIME Medical Branch KCL 10 mEq 2022-05 Yes [id number] TAKE ONE Univers tablet 0-04 TABLET BY ity of 00:00: MOUTH [place] EVERY Medical MORNING. Branch TAKE WITH FUROSEMIDE AMITRIPTYLI 2022-05 Yes [id number] TAKE 1 Univers NE 100 mg 0-04 TABLET BY ity o f tablet 00:00: MOUTH AT [place] BEDTIME Medical Branch KCL 10 mEq 2022-05 Yes [id number] TAKE ONE Univers tablet 0-04 TABLET BY ity of 00:00: MOUTH [place] [address] EVERY Medical MORNING. Branch TAKE WITH FUROSEMIDE AMITRIPTYLI 2022-05 Yes [id number] TAKE 1 Univers NE 100 mg 0-04 TABLET BY ity o f tablet 00:00: MOUTH AT [place] BEDTIME Medical Branch KCL 10 mEq 2022-05 Yes [id number] TAKE ONE Univers tablet 0-04 TABLET BY ity of 00:00: MOUTH [place] [address] EVERY Medical MORNING. Branch TAKE WITH FUROSEMIDE AMITRIPTYLI 2022-05 Yes [id number] TAKE 1 [facility] NE 100 mg 0-04 TABLET BY ity o f tablet 00:00: MOUTH AT [place] BEDTIME Medical Branch KCL 10 mEq 2022-05 Yes [id number] TAKE ONE Univers tablet 0-04 TABLET BY ity of 00:00: MOUTH [place] [address] EVERY Medical MORNING. Branch TAKE WITH FUROSEMIDE AMITRIPTYLI 2022-05 Yes [id number] TAKE 1 Univers NE 100 mg 0-04 TABLET BY ity o f tablet 00:00: MOUTH AT [place] [address] BEDTIME Medical Branch KCL 10 mEq 2022- Yes [id number] TAKE ONE Univers tablet 0-04 TABLET BY ity of 00:00: MOUTH [place] [address] EVERY Medical MORNING. Branch TAKE WITH FUROSEMIDE AMITRIPTYLI 2022-05 Yes [id number] TAKE 1 [facility] NE 100 mg 0-04 TABLET BY ity o f tablet 00:00: MOUTH AT [place] [address] BEDTIME Medical Branch KCL 10 mEq 2022-05 Yes [id number] TAKE ONE Univers tablet 0-04 TABLET BY ity of 00:00: MOUTH [place] [address] EVERY Medical MORNING. Branch TAKE WITH FUROSEMIDE AMITRIPTYLI 2022-05 Yes [id number] TAKE 1 [facility] NE 100 mg 0-04 TABLET BY ity o f tablet 00:00: MOUTH AT [place] BEDTIME Medical Branch KCL 10 mEq 2022-05 Yes [id number] TAKE ONE Univers tablet 0-04 TABLET BY ity of 00:00: MOUTH [place] EVERY Medical MORNING. Branch TAKE WITH FUROSEMIDE AMITRIPTYLI 2022-05 Yes [id number] TAKE 1 [facility] NE 100 mg 0-04 TABLET BY ity o f tablet 00:00: MOUTH AT [place] BEDTIME Medical Branch KCL 10 mEq 2022- Yes [id number] TAKE ONE Univers tablet 0-04 TABLET BY ity of 00:00: MOUTH [place] EVERY Medical MORNING. Branch TAKE WITH FUROSEMIDE AMITRIPTYLI 2022-05 Yes [id number] TAKE 1 [facility] NE 100 mg 0-04 TABLET BY ity o f tablet 00:00: MOUTH AT [place] BEDTIME Medical Branch KCL 10 mEq 2022- Yes [id number] TAKE ONE Univers tablet 0-04 TABLET BY ity of 00:00: MOUTH [place] EVERY Medical MORNING. Branch TAKE WITH FUROSEMIDE AMITRIPTYLI 2022-05 Yes [id number] TAKE 1 [facility] NE 100 mg 0-04 TABLET BY ity o f tablet 00:00: MOUTH AT [place] [facility] Medical Branch KCL 10 mEq 2022- Yes [id number] TAKE ONE Univers tablet 0-04 TABLET BY ity of 00:00: MOUTH [place] [address] EVERY Medical MORNING. Branch TAKE WITH FUROSEMIDE AMITRIPTYLI 2022-05 Yes [id number] TAKE 1 [facility] NE 100 mg 0-04 TABLET BY ity o f tablet 00:00: MOUTH AT [place] BEDTIME Medical Branch KCL 10 mEq 2022- Yes [id number] TAKE ONE Univers tablet 0-04 TABLET BY ity of 00:00: MOUTH [place] EVERY Medical MORNING. Branch TAKE WITH FUROSEMIDE AMITRIPTYLI 2022-05 Yes [id number] TAKE 1 [facility] NE 100 mg 0-04 TABLET BY ity o f tablet 00:00: MOUTH AT [place] BEDTIME Medical Branch KCL 10 mEq 2022- Yes [id number] TAKE ONE Univers tablet 0-04 TABLET BY ity of 00:00: MOUTH [place] [address] EVERY Medical MORNING. Branch TAKE WITH FUROSEMIDE AMITRIPTYLI 2022- Yes [id number] TAKE 1 [facility] NE 100 mg 0-04 TABLET BY ity o f tablet 00:00: MOUTH AT [place] [address] BEDTIME Medical Branch KCL 10 mEq 2022 Yes [id number] TAKE ONE Univers tablet 0-04 TABLET BY ity of 00:00: MOUTH [place] 00 EVERY Medical MORNING. Branch TAKE WITH FUROSEMIDE AMITRIPTYLI 2022-05 Yes [id number] TAKE 1 [facility] 100 mg 0-04 TABLET BY [facility] o f tablet 00:00: MOUTH AT [place] 00 BEDTIME Medical Branch KCL 10 mEq 2022-05 Yes [id number] TAKE ONE [facility] tablet 0-04 TABLET BY [facility] of 00:00: MOUTH [place] 00 EVERY Medical MORNING. Branch TAKE WITH FUROSEMIDE AMITRIPTYLI 2022-05 Yes [id number] TAKE 1 [facility] 100 mg 0-04 TABLET BY [facility] o f tablet 00:00: MOUTH AT [place] 00 BEDTIME Medical Branch AMITRIPTYLI 2022-05- No [id number] TAKE 1 [facility] 100 mg 0-04 11-07 TABLET BY [facility] tablet 00:00: 00:00 MOUTH AT [place] 00 :00 BEDTIME Medical Branch AMITRIPTYLI 2022-05- No [id number] TAKE 1 [facility] 100 mg 0-04 11-07 TABLET BY [facility] of tablet 00:00: 00:00 MOUTH AT [place] 00 :00 BEDTIME Medical Branch KCL 10 mEq 2022-05- No [id number] TAKE ONE [facility] tablet 0-04 11-03 TABLET BY [facility] of 00:00: 00:00 MOUTH [place] 00 :00 EVERY Medical MORNING. Branch TAKE WITH FUROSEMIDE KCL 10 mEq 2022-05- No [id number] TAKE ONE [facility] tablet 0-04 11-03 TABLET BY [facility] of 00:00: 00:00 MOUTH [place] 00 :00 EVERY Medical MORNING. Branch TAKE WITH FUROSEMIDE KCL 10 mEq 2022-05- No [id number] TAKE ONE [facility] tablet 0-04 11-03 TABLET BY [facility] of 00:00: 00:00 MOUTH [place] 00 :00 EVERY Medical MORNING. Branch TAKE WITH FUROSEMIDE budesonide- Yes [id number] 2{puff} Inhale 2 [facility] formoteroL 9-22 Puffs in ity o f 160-4.5 00:00: the [place] mcg/actuati 00 morning Medic al on inhaler and 2 Branch Puffs in the evening. budesonide- Yes [id number] 2{puff} Inhale 2 [facility] formoteroL 9-22 Puffs in ity o f 160-4.5 00:00: the [place] mcg/actuati 00 morning Medic al on inhaler and 2 Branch Puffs in the evening. budesonide- 2022-0 Yes [id number] 2{puff} Inhale 2 [facility] formoteroL 9-22 Puffs in ity o f 160-4.5 00:00: the [place] mcg/actuati 00 morning Medic al on inhaler and 2 Branch Puffs in the evening. budesonide- 2022-0 Yes [id number] 2{puff} Inhale 2 [facility] formoteroL 9-22 Puffs in ity o f 160-4.5 00:00: the [place] mcg/actuati 00 morning Medic al on inhaler and 2 Branch Puffs in the evening. budesonide- 2022-0 Yes [id number] 2{puff} Inhale 2 [facility] formoteroL 9-22 Puffs in ity o f 160-4.5 00:00: the [place] mcg/actuati 00 morning Medic al on inhaler and 2 Branch Puffs in the evening. budesonide- 2022-0 Yes [id number] 2{puff} Inhale 2 [facility] formoteroL 9-22 Puffs in ity o f 160-4.5 00:00: the [place] mcg/actuati 00 morning Medic al on inhaler and 2 Branch Puffs in the evening. budesonide- 2022-0 Yes [id number] 2{puff} Inhale 2 [facility] formoteroL 9-22 Puffs in ity o f 160-4.5 00:00: the [place] mcg/actuati 00 morning Medic al on inhaler and 2 Branch Puffs in the evening. budesonide- 2022-0 Yes [id number] 2{puff} Inhale 2 [facility] formoteroL 9-22 Puffs in ity o f 160-4.5 00:00: the [place] mcg/actuati 00 morning Medic al on inhaler and 2 Branch Puffs in the evening. budesonide- 2022-0 Yes [id number] 2{puff} Inhale 2 [facility] formoteroL 9-22 Puffs in ity o f 160-4.5 00:00: the [place] mcg/actuati 00 morning Medic al on inhaler and 2 Branch Puffs in the evening. budesonide- 2022-0 Yes [id number] 2{puff} Inhale 2 [facility] formoteroL 9-22 Puffs in ity o f 160-4.5 00:00: the [place] mcg/actuati 00 morning Medic al on inhaler and 2 Branch Puffs in the evening. budesonide- 2022-0 Yes [id number] 2{puff} Inhale 2 [facility] formoteroL 9-22 Puffs in ity o f 160-4.5 00:00: the [place] mcg/actuati 00 morning Medic al on inhaler and 2 Branch Puffs in the evening. budesonide- 2022-0 Yes [id number] 2{puff} Inhale 2 [facility] formoteroL 9-22 Puffs in ity o f 160-4.5 00:00: the [place] mcg/actuati 00 morning Medic al on inhaler and 2 Branch Puffs in the evening. budesonide- 2022-0 Yes [id number] 2{puff} Inhale 2 [facility] formoteroL 9-22 Puffs in ity o f 160-4.5 00:00: the [place] mcg/actuati 00 morning Medic al on inhaler and 2 Branch Puffs in the evening. budesonide- 2022-0 Yes [id number] 2{puff} Inhale 2 [facility] formoteroL 9-22 Puffs in ity o f 160-4.5 00:00: the [place] mcg/actuati 00 morning Medic al on inhaler and 2 Branch Puffs in the evening. budesonide- 2022-0 Yes [id number] 2{puff} Inhale 2 [facility] formoteroL 9-22 Puffs in ity o f 160-4.5 00:00: the [place] mcg/actuati 00 morning Medic al on inhaler and 2 Branch Puffs in the evening. budesonide- 2022-0 Yes [id number] 2{puff} Inhale 2 [facility] formoteroL 9-22 Puffs in ity o f 160-4.5 00:00: the [place] mcg/actuati 00 morning Medic al on inhaler and 2 Branch Puffs in the evening. budesonide- 2022-0 Yes [id number] 2{puff} Inhale 2 [facility] formoteroL 9-22 Puffs in ity o f 160-4.5 00:00: the [place] mcg/actuati 00 morning Medic al on inhaler and 2 Branch Puffs in the evening. budesonide- 2022-0 Yes [id number] 2{puff} Inhale 2 [facility] formoteroL 9-22 Puffs in ity o f 160-4.5 00:00: the [place] mcg/actuati 00 morning Medic al on inhaler and 2 Branch Puffs in the evening. budesonide- 2022-0 Yes [id number] 2{puff} Inhale 2 [facility] formoteroL 9-22 Puffs in ity o f 160-4.5 00:00: the [place] mcg/actuati 00 morning Medic al on inhaler and 2 Branch Puffs in the evening. budesonide- 2022-0 Yes [id number] 2{puff} Inhale 2 [facility] formoteroL 9-22 Puffs in ity o f 160-4.5 00:00: the [place] mcg/actuati 00 morning Medic al on inhaler and 2 Branch Puffs in the evening. budesonide- 2022-0 Yes [id number] 2{puff} Inhale 2 [facility] formoteroL 9-22 Puffs in ity o f 160-4.5 00:00: the [place] mcg/actuati 00 morning Medic al on inhaler and 2 Branch Puffs in the evening. budesonide- 2022-0 Yes [id number] 2{puff} Inhale 2 [facility] formoteroL 9-22 Puffs in ity o f 160-4.5 00:00: the [place] mcg/actuati 00 morning Medic al on inhaler and 2 Branch Puffs in the evening. budesonide- 2022-0 Yes [id number] 2{puff} Inhale 2 [facility] formoteroL 9-22 Puffs in ity o f 160-4.5 00:00: the [place] mcg/actuati 00 morning Medic al on inhaler and 2 Branch Puffs in the evening. budesonide- 2022-0 Yes [id number] 2{puff} Inhale 2 [facility] formoteroL 9-22 Puffs in ity o f 160-4.5 00:00: the [place] mcg/actuati 00 morning Medic al on inhaler and 2 Branch Puffs in the evening. budesonide- 2022-0 Yes [id number] 2{puff} Inhale 2 [facility] formoteroL 9-22 Puffs in ity o f 160-4.5 00:00: the [place] mcg/actuati 00 morning Medic al on inhaler and 2 Branch Puffs in the evening. budesonide- 2022-0 Yes [id number] 2{puff} Inhale 2 [facility] formoteroL 9-22 Puffs in ity o f 160-4.5 00:00: the [place] mcg/actuati 00 morning Medic al on inhaler and 2 Branch Puffs in the evening. budesonide- 2022-0 Yes [id number] 2{puff} Inhale 2 [facility] formoteroL 9-22 Puffs in ity o f 160-4.5 00:00: the [place] mcg/actuati 00 morning Medic al on inhaler and 2 Branch Puffs in the evening. budesonide- 2022-0 Yes [id number] 2{puff} Inhale 2 [facility] formoteroL 9-22 Puffs in ity o f 160-4.5 00:00: the [place] mcg/actuati 00 morning Medic al on inhaler and 2 Branch Puffs in the evening. budesonide- 2022-0 Yes [id number] 2{puff} Inhale 2 [facility] formoteroL 9-22 Puffs in ity o f 160-4.5 00:00: the [place] mcg/actuati 00 morning Medic al on inhaler and 2 Branch Puffs in the evening. budesonide- 2022-0 Yes [id number] 2{puff} Inhale 2 [facility] formoteroL 9-22 Puffs in ity o f 160-4.5 00:00: the [place] mcg/actuati 00 morning Medic al on inhaler and 2 Branch Puffs in the evening. budesonide- 2022-0 Yes [id number] 2{puff} Inhale 2 [facility] formoteroL 9-22 Puffs in ity o f 160-4.5 00:00: the [place] mcg/actuati 00 morning Medic al on inhaler and 2 Branch Puffs in the evening. budesonide- 2022-0 2022- No [id number] 2{puff} Inhale 2 [facility] formoteroL 9-22 11-03 Puffs in ity of 160-4.5 00:00: 00:00 the [place] mcg/actuati 00 :00 morning Medic al on inhaler and 2 Branch Puffs in the evening. budesonide- 2022- No [id number] 2{puff} Inhale 2 [facility] formoteroL 01-24 11-03 Puffs in ity of 160-4.5 00:00: 00:00 the [place] mcg/actuati 00 :00 morning Medic al on inhaler and 2 Branch Puffs in the evening. budesonide- 2022- No [id number] 2{puff} Inhale 2 [facility] formoteroL 01-24 11-03 Puffs in ity of 160-4.5 00:00: 00:00 the [place] mcg/actuati 00 :00 morning Medic al on inhaler and 2 Branch Puffs in the evening. AMITRIPTYLI Yes [id number] TAKE 1 [facility] NE 100 mg 9-07 TABLET BY ity o f tablet 00:00: MOUTH AT [place] [facility] AMITRIPTYLI Yes [id number] TAKE 1 [facility] NE 100 mg 9-07 TABLET BY ity o f tablet 00:00: MOUTH AT [place] [facility] AMITRIPTYLI Yes [id number] TAKE 1 [facility] 100 mg 9-07 TABLET BY ity o f tablet 00:00: MOUTH AT [place] [facility] AMITRIPTYL 0 Yes [id number] TAKE 1 [facility] 100 mg 9-07 TABLET BY ity o f tablet 00:00: MOUTH AT [place] [facility] AMITRIPTYLI 0 Yes [id number] TAKE 1 [facility] 100 mg 9-07 TABLET BY ity o f tablet 00:00: MOUTH AT [place] [facility] AMITRIPTYLI Yes [id number] TAKE 1 [facility] 100 mg 9-07 TABLET BY ity o f tablet 00:00: MOUTH AT [place] [facility] AMITRIPTYLI 2022- Yes [id number] TAKE 1 [facility] 100 mg 9-07 TABLET BY ity o f tablet 00:00: MOUTH AT [place] [facility] AMITRIPTYLI Yes [id number] TAKE 1 [facility] 100 mg 9-07 TABLET BY ity o f tablet 00:00: MOUTH AT [address] AMITRIPTYLI Yes [id number] TAKE 1 [facility] NE 100 mg 9-07 TABLET BY ity o f tablet 00:00: MOUTH AT [place] [facility] Branch AMITRIPTYLI Yes [id number] TAKE 1 [facility] NE 100 mg 9-07 TABLET BY ity o f tablet 00:00: MOUTH AT [place] [facility] Branch AMITRIPTYLI 0 Yes [id number] TAKE 1 [facility] NE 100 mg 9-07 TABLET BY ity o f tablet 00:00: MOUTH AT [place] [facility] Branch AMITRIPTYLI 2022- No [id number] TAKE 1 [facility] NE 100 mg 9-07 10-04 TABLET BY ity of tablet 00:00: 00:00 MOUTH AT [place] 00 :[facility] clindamycin 2022- No [id number] 300mg Take 2 [facility] 150 mg 12-16 [id number] capsules ity of capsule 00:00: 04:59 by mouth 4 [place] 00 :00 (four) Medical times Branch daily for 7 days. clindamycin 2022- No [id number] 300mg Take 2 [facility] 150 mg -12-24 [id number] capsules ity of capsule 00:00: 04:59 by mouth 4 [place] 00 :00 (four) Medical times Branch daily for 7 days. clindamycin 2022- No [id number] 300mg Take 2 [facility] 150 mg -12-24 [id number] capsules ity of capsule 00:00: 04:59 by mouth 4 [place] 00 :00 (four) Medical times Branch daily for 7 days. clindamycin 2022- No [id number] 300mg Take 2 [facility] 150 mg 12-16 [id number] capsules ity of capsule 00:00: 04:59 by mouth 4 [place] 00 :00 (four) Medical times Branch daily for 7 days. HYDROcodone Yes 1{tbl} Take 1 Un nel -acetaminop 8-03 tablet by ity of hen 10-325 13:29: mouth [place] mg tablet 18 every 6 Medical (six) Branch hours as needed for Pain (scale 7-10). carisoprodo Yes 350mg Take 1 [facility] vers L 350 mg 8-03 tablet by ity of tablet 13:29: mouth in [place] 18 the Medical morning Branch and 1 tablet at noon and 1 tablet in the evening. HYDROcodone 2023-0 Yes 1{tbl} Take 1 Un nel -acetaminop 8-03 tablet by ity of hen 10-325 13:29: mouth [place] mg tablet 18 every 6 Medical (six) Branch hours as needed for Pain (scale 7-10). carisoprodo 2023-0 Yes 350mg Take 1 [facility] vers L 350 mg 8-03 tablet by ity of tablet 13:29: mouth in [place] 18 the Medical morning Branch and 1 tablet at noon and 1 tablet in the evening. HYDROcodone 2023-0 Yes 1{tbl} Take 1 Un nel -acetaminop 8-03 tablet by ity of hen 10-325 13:29: mouth [place] mg tablet 18 every 6 Medical (six) Branch hours as needed for Pain (scale 7-10). carisoprodo 2023-0 Yes 350mg Take 1 [facility] vers L 350 mg 8-03 tablet by ity of tablet 13:29: mouth in [place] [address] the Medical morning Branch and 1 tablet at noon and 1 tablet in the evening. HYDROcodone 2023-0 Yes 1{tbl} Take 1 Un nel -acetaminop 8-03 tablet by ity of hen 10-325 13:29: mouth [place] mg tablet 18 every 6 Medical (six) Branch hours as needed for Pain (scale 7-10). carisoprodo 2023-0 Yes 350mg Take 1 [facility] vers L 350 mg 8-03 tablet by ity of tablet 13:29: mouth in [place] [address] the Medical morning Branch and 1 tablet at noon and 1 tablet in the evening. HYDROcodone 2023-0 Yes 1{tbl} Take 1 Un nel -acetaminop 8-03 tablet by ity of hen 10-325 13:29: mouth [place] mg tablet 18 every 6 Medical (six) Branch hours as needed for Pain (scale 7-10). carisoprodo 2023-0 Yes 350mg Take 1 [facility] vers L 350 mg 8-03 tablet by ity of tablet 13:29: mouth in [place] [address] the Medical morning Branch and 1 tablet at noon and 1 tablet in the evening. HYDROcodone 2023-0 Yes 1{tbl} Take 1 Un nel -acetaminop 8-03 tablet by ity of hen 10-325 13:29: mouth [place] mg tablet 18 every 6 Medical (six) Branch hours as needed for Pain (scale 7-10). carisoprodo 2023-0 Yes 350mg Take 1 [facility] vers L 350 mg 8-03 tablet by ity of tablet 13:29: mouth in [place] 18 the Medical morning Branch and 1 tablet at noon and 1 tablet in the evening. HYDROcodone 2023-0 Yes 1{tbl} Take 1 Un nel -acetaminop 8-03 tablet by ity of hen 10-325 13:29: mouth [place] mg tablet 18 every 6 Medical (six) Branch hours as needed for Pain (scale 7-10). carisoprodo 2023-0 Yes 350mg Take 1 [facility] vers L 350 mg 8-03 tablet by ity of tablet 13:29: mouth in [place] [address] the Medical morning Branch and 1 tablet at noon and 1 tablet in the evening. HYDROcodone 2023-0 Yes 1{tbl} Take 1 Un nel -acetaminop 8-03 tablet by ity of hen 10-325 13:29: mouth [place] mg tablet 18 every 6 Medical (six) Branch hours as needed for Pain (scale 7-10). carisoprodo 2023-0 Yes 350mg Take 1 [facility] vers L 350 mg 8-03 tablet by ity of tablet 13:29: mouth in [place] 18 the Medical morning Branch and 1 tablet at noon and 1 tablet in the evening. HYDROcodone 2023-0 Yes 1{tbl} Take 1 Un nel -acetaminop 8-03 tablet by ity of hen 10-325 13:29: mouth [place] mg tablet 18 every 6 Medical (six) Branch hours as needed for Pain (scale 7-10). carisoprodo 2023-0 Yes 350mg Take 1 [facility] vers L 350 mg 8-03 tablet by ity of tablet 13:29: mouth in [place] 18 the Medical morning Branch and 1 tablet at noon and 1 tablet in the evening. HYDROcodone 2023-0 Yes 1{tbl} Take 1 Un nel -acetaminop 8-03 tablet by ity of hen 10-325 13:29: mouth [place] mg tablet 18 every 6 Medical (six) Branch hours as needed for Pain (scale 7-10). carisoprodo 2023-0 Yes 350mg Take 1 [facility] vers L 350 mg 8-03 tablet by ity of tablet 13:29: mouth in [place] 18 the Medical morning Branch and 1 tablet at noon and 1 tablet in the evening. HYDROcodone 2023-0 Yes 1{tbl} Take 1 Un nel -acetaminop 8-03 tablet by ity of hen 10-325 13:29: mouth [place] mg tablet 18 every 6 Medical (six) Branch hours as needed for Pain (scale 7-10). carisoprodo 2023-0 Yes 350mg Take 1 [facility] vers L 350 mg 8-03 tablet by ity of tablet 13:29: mouth in [place] 18 the Medical morning Branch and 1 tablet at noon and 1 tablet in the evening. HYDROcodone 2023-0 Yes 1{tbl} Take 1 Un nel -acetaminop 8-03 tablet by ity of hen 10-325 13:29: mouth [place] mg tablet 18 every 6 Medical (six) Branch hours as needed for Pain (scale 7-10). carisoprodo 2023-0 Yes 350mg Take 1 [facility] vers L 350 mg 8-03 tablet by ity of tablet 13:29: mouth in [place] [address] the Medical morning Branch and 1 tablet at noon and 1 tablet in the evening. HYDROcodone 2023-0 Yes 1{tbl} Take 1 Un nel -acetaminop 8-03 tablet by ity of hen 10-325 13:29: mouth [place] mg tablet 18 every 6 Medical (six) Branch hours as needed for Pain (scale 7-10). carisoprodo 2023-0 Yes 350mg Take 1 [facility] vers L 350 mg 8-03 tablet by ity of tablet 13:29: mouth in [place] 18 the Medical morning Branch and 1 tablet at noon and 1 tablet in the evening. HYDROcodone 2023-0 Yes 1{tbl} Take 1 Un nel -acetaminop 8-03 tablet by ity of hen 10-325 13:29: mouth [place] mg tablet 18 every 6 Medical (six) Branch hours as needed for Pain (scale 7-10). carisoprodo 2023-0 Yes 350mg Take 1 [facility] vers L 350 mg 8-03 tablet by ity of tablet 13:29: mouth in [place] 18 the Medical morning Branch and 1 tablet at noon and 1 tablet in the evening. HYDROcodone 2023-0 Yes 1{tbl} Take 1 Un nel -acetaminop 8-03 tablet by ity of hen 10-325 13:29: mouth [place] mg tablet 18 every 6 Medical (six) Branch hours as needed for Pain (scale 7-10). carisoprodo 2023-0 Yes 350mg Take 1 [facility] vers L 350 mg 8-03 tablet by ity of tablet 13:29: mouth in [place] 18 the Medical morning Branch and 1 tablet at noon and 1 tablet in the evening. HYDROcodone 2023-0 Yes 1{tbl} Take 1 Un nel -acetaminop 8-03 tablet by ity of hen 10-325 13:29: mouth [place] mg tablet 18 every 6 Medical (six) Branch hours as needed for Pain (scale 7-10). carisoprodo 2023-0 Yes 350mg Take 1 [facility] vers L 350 mg 8-03 tablet by ity of tablet 13:29: mouth in [place] [address] the Medical morning Branch and 1 tablet at noon and 1 tablet in the evening. HYDROcodone 2023-0 Yes 1{tbl} Take 1 Un nel -acetaminop 8-03 tablet by ity of hen 10-325 13:29: mouth [place] mg tablet 18 every 6 Medical (six) Branch hours as needed for Pain (scale 7-10). carisoprodo 2023-0 Yes 350mg Take 1 [facility] vers L 350 mg 8-03 tablet by ity of tablet 13:29: mouth in [place] 18 the Medical morning Branch and 1 tablet at noon and 1 tablet in the evening. HYDROcodone 2023-0 Yes 1{tbl} Take 1 Un nel -acetaminop 8-03 tablet by ity of hen 10-325 13:29: mouth [place] mg tablet 18 every 6 Medical (six) Branch hours as needed for Pain (scale 7-10). carisoprodo 2023-0 Yes 350mg Take 1 [facility] vers L 350 mg 8-03 tablet by ity of tablet 13:29: mouth in [place] 18 the Medical morning Branch and 1 tablet at noon and 1 tablet in the evening. HYDROcodone 2023-0 Yes 1{tbl} Take 1 Un nel -acetaminop 8-03 tablet by ity of hen 10-325 13:29: mouth [place] mg tablet 18 every 6 Medical (six) Branch hours as needed for Pain (scale 7-10). carisoprodo 2023-0 Yes 350mg Take 1 [facility] vers L 350 mg 8-03 tablet by ity of tablet 13:29: mouth in [place] 18 the Medical morning Branch and 1 tablet at noon and 1 tablet in the evening. HYDROcodone 2023-0 Yes 1{tbl} Take 1 Un nel -acetaminop 8-03 tablet by ity of hen 10-325 13:29: mouth [place] mg tablet 18 every 6 Medical (six) Branch hours as needed for Pain (scale 7-10). carisoprodo 2023-0 Yes 350mg Take 1 [facility] vers L 350 mg 8-03 tablet by ity of tablet 13:29: mouth in [place] 18 the Medical morning Branch and 1 tablet at noon and 1 tablet in the evening. HYDROcodone 2023-0 Yes 1{tbl} Take 1 Un nel -acetaminop 8-03 tablet by ity of hen 10-325 13:29: mouth [place] mg tablet 18 every 6 Medical (six) Branch hours as needed for Pain (scale 7-10). carisoprodo 2023-0 Yes 350mg Take 1 [facility] vers L 350 mg 8-03 tablet by ity of tablet 13:29: mouth in [place] [address] the Medical morning Branch and 1 tablet at noon and 1 tablet in the evening. HYDROcodone 2023-0 Yes 1{tbl} Take 1 Un nel -acetaminop 8-03 tablet by ity of hen 10-325 13:29: mouth [place] mg tablet 18 every 6 Medical (six) Branch hours as needed for Pain (scale 7-10). carisoprodo 2023-0 Yes 350mg Take 1 [facility] vers L 350 mg 8-03 tablet by ity of tablet 13:29: mouth in [place] 18 the Medical morning Branch and 1 tablet at noon and 1 tablet in the evening. HYDROcodone 2023-0 Yes 1{tbl} Take 1 Un nel -acetaminop 8-03 tablet by ity of hen 10-325 13:29: mouth [place] mg tablet 18 every 6 Medical (six) Branch hours as needed for Pain (scale 7-10). carisoprodo 2023-0 Yes 350mg Take 1 [facility] vers L 350 mg 8-03 tablet by ity of tablet 13:29: mouth in [place] [address] the Medical morning Branch and 1 tablet at noon and 1 tablet in the evening. HYDROcodone 2023-0 Yes 1{tbl} Take 1 Un nel -acetaminop 8-03 tablet by ity of hen 10-325 13:29: mouth [place] mg tablet 18 every 6 Medical (six) Branch hours as needed for Pain (scale 7-10). carisoprodo 2023-0 Yes 350mg Take 1 [facility] vers L 350 mg 8-03 tablet by ity of tablet 13:29: mouth in [place] [address] the Medical morning Branch and 1 tablet at noon and 1 tablet in the evening. HYDROcodone 2023-0 Yes 1{tbl} Take 1 Un nel -acetaminop 8-03 tablet by ity of hen 10-325 13:29: mouth [place] mg tablet 18 every 6 Medical (six) Branch hours as needed for Pain (scale 7-10). carisoprodo 2023-0 Yes 350mg Take 1 Uni vers L 350 mg 8-03 tablet by ity of tablet 13:29: mouth in [place] [address] the Medical morning Branch and 1 tablet at noon and 1 tablet in the evening. HYDROcodone 2023-0 Yes 1{tbl} Take 1 Un nel -acetaminop 8-03 tablet by ity of hen 10-325 13:29: mouth [place] mg tablet 18 every 6 Medical (six) Branch hours as needed for Pain (scale 7-10). carisoprodo 2023-0 Yes 350mg Take 1 Uni vers L 350 mg 8-03 tablet by ity of tablet 13:29: mouth in [place] [address] the Medical morning Branch and 1 tablet at noon and 1 tablet in the evening. HYDROcodone 2023-0 Yes 1{tbl} Take 1 Un nel -acetaminop 8-03 tablet by ity of hen 10-325 13:29: mouth [place] mg tablet 18 every 6 Medical (six) Branch hours as needed for Pain (scale 7-10). carisoprodo 2023-0 Yes 350mg Take 1 Uni vers L 350 mg 8-03 tablet by ity of tablet 13:29: mouth in [place] [address] the Medical morning Branch and 1 tablet at noon and 1 tablet in the evening. HYDROcodone 2023-0 Yes 1{tbl} Take 1 Un nel -acetaminop 8-03 tablet by ity of hen 10-325 13:29: mouth [place] mg tablet 18 every 6 Medical (six) Branch hours as needed for Pain (scale 7-10). carisoprodo 2023-0 Yes 350mg Take 1 Uni vers L 350 mg 8-03 tablet by ity of tablet 13:29: mouth in [place] 18 the Medical morning Branch and 1 tablet at noon and 1 tablet in the evening. HYDROcodone 2023-0 Yes 1{tbl} Take 1 Un nel -acetaminop 8-03 tablet by ity of hen 10-325 13:29: mouth [place] mg tablet 18 every 6 Medical (six) Branch hours as needed for Pain (scale 7-10). carisoprodo 2023-0 Yes 350mg Take 1 Uni vers L 350 mg 8-03 tablet by ity of tablet 13:29: mouth in [place] 18 the Medical morning Branch and 1 tablet at noon and 1 tablet in the evening. HYDROcodone 2023-0 Yes 1{tbl} Take 1 Un nel -acetaminop 8-03 tablet by ity of hen 10-325 13:29: mouth [place] mg tablet 18 every 6 Medical (six) Branch hours as needed for Pain (scale 7-10). carisoprodo 2023-0 Yes 350mg Take 1 [facility] vers L 350 mg 8-03 tablet by ity of tablet 13:29: mouth in [place] [address] the Medical morning Branch and 1 tablet at noon and 1 tablet in the evening. HYDROcodone 2023-0 Yes 1{tbl} Take 1 Un nel -acetaminop 8-03 tablet by ity of hen 10-325 13:29: mouth [place] mg tablet 18 every 6 Medical (six) Branch hours as needed for Pain (scale 7-10). carisoprodo 2023-0 Yes 350mg Take 1 Uni vers L 350 mg 8-03 tablet by ity of tablet 13:29: mouth in [place] 18 the Medical morning Branch and 1 tablet at noon and 1 tablet in the evening. HYDROcodone 2023-0 Yes 1{tbl} Take 1 Un nel -acetaminop 8-03 tablet by ity of hen 10-325 13:29: mouth [place] mg tablet 18 every 6 Medical (six) Branch hours as needed for Pain (scale 7-10). carisoprodo 2023-0 Yes 350mg Take 1 Uni vers L 350 mg 8-03 tablet by ity of tablet 13:29: mouth in [place] 18 the Medical morning Branch and 1 tablet at noon and 1 tablet in the evening. HYDROcodone 2023-0 Yes 1{tbl} Take 1 Un nel -acetaminop 8-03 tablet by ity of hen 10-325 13:29: mouth [place] mg tablet 18 every 6 Medical (six) Branch hours as needed for Pain (scale 7-10). carisoprodo 2023-0 Yes 350mg Take 1 [facility] vers L 350 mg 8-03 tablet by ity of tablet 13:29: mouth in [place] 18 the Medical morning Branch and 1 tablet at noon and 1 tablet in the evening. HYDROcodone 2023-0 Yes 1{tbl} Take 1 Un nel -acetaminop 8-03 tablet by ity of hen 10-325 13:29: mouth [place] mg tablet 18 every 6 Medical (six) Branch hours as needed for Pain (scale 7-10). carisoprodo 2023-0 Yes 350mg Take 1 [facility] vers L 350 mg 8-03 tablet by ity of tablet 13:29: mouth in [place] [address] the Medical morning Branch and 1 tablet at noon and 1 tablet in the evening. HYDROcodone 2023-0 Yes 1{tbl} Take 1 Un nel -acetaminop 8-03 tablet by ity of hen 10-325 13:29: mouth [place] mg tablet 18 every 6 Medical (six) Branch hours as needed for Pain (scale 7-10). carisoprodo 2023-0 Yes 350mg Take 1 [facility] vers L 350 mg 8-03 tablet by ity of tablet 13:29: mouth in [place] [address] the Medical morning Branch and 1 tablet at noon and 1 tablet in the evening. HYDROcodone 2023-0 Yes 1{tbl} Take 1 Un nel -acetaminop 8-03 tablet by ity of hen 10-325 13:29: mouth [place] mg tablet 18 every 6 Medical (six) Branch hours as needed for Pain (scale 7-10). carisoprodo 2023-0 Yes 350mg Take 1 Uni vers L 350 mg 8-03 tablet by ity of tablet 13:29: mouth in [place] [address] the Medical morning Branch and 1 tablet at noon and 1 tablet in the evening. HYDROcodone 2023-0 Yes 1{tbl} Take 1 Un nel -acetaminop 8-03 tablet by ity of hen 10-325 13:29: mouth [place] [facility] tablet 18 every 6 Medical (six) Branch hours as needed for Pain (scale 7-10). carisoprodo 2023-0 Yes 350mg Take 1 [facility] vers L 350 mg 8-03 tablet by [facility] of tablet 13:29: mouth in [place] 18 the Medical morning Branch and 1 tablet at noon and 1 tablet in the evening. HYDROcodone 2023-0 Yes 1{tbl} Take 1 Un nel -acetaminop 8-03 tablet by ity of hen 10-325 13:29: mouth [place] mg tablet 18 every 6 Medical (six) Branch hours as needed for Pain (scale 7-10). carisoprodo 2023-0 Yes 350mg Take 1 [facility] vers L 350 mg 8-03 tablet by ity of tablet 13:29: mouth in [place] [address] the Medical morning Branch and 1 tablet at noon and 1 tablet in the evening. HYDROcodone 2023-0 Yes 1{tbl} Take 1 Un nel -acetaminop 8-03 tablet by ity of hen 10-325 13:29: mouth [place] mg tablet 18 every 6 Medical (six) Branch hours as needed for Pain (scale 7-10). carisoprodo 2023-0 Yes 350mg Take 1 [facility] vers L 350 mg 8-03 tablet by ity of tablet 13:29: mouth in [place] [address] the Medical morning Branch and 1 tablet at noon and 1 tablet in the evening. HYDROcodone 2023-0 Yes 1{tbl} Take 1 Un nel -acetaminop 8-03 tablet by ity of hen 10-325 13:29: mouth [place] mg tablet 18 every 6 Medical (six) Branch hours as needed for Pain (scale 7-10). carisoprodo 2023-0 Yes 350mg Take 1 [facility] vers L 350 mg 8-03 tablet by [facility] of tablet 13:29: mouth in [place] 18 the Medical morning Branch and 1 tablet at noon and 1 tablet in the evening. HYDROcodone 2023-0 Yes 1{tbl} Take 1 Un nel -acetaminop 8-03 tablet by ity of hen 10-325 13:29: mouth [place] mg tablet 18 every 6 Medical (six) Branch hours as needed for Pain (scale 7-10). carisoprodo 2023-0 Yes 350mg Take 1 [facility] vers L 350 mg 8-03 tablet by ity of tablet 13:29: mouth in [place] 18 the Medical morning Branch and 1 tablet at noon and 1 tablet in the evening. HYDROcodone 2023-0 Yes 1{tbl} Take 1 Un nel -acetaminop 8-03 tablet by ity of hen 10-325 13:29: mouth [place] mg tablet 18 every 6 Medical (six) Branch hours as needed for Pain (scale 7-10). carisoprodo 2023-0 Yes 350mg Take 1 [facility] vers L 350 mg 8-03 tablet by ity of tablet 13:29: mouth in [place] 18 the Medical morning Branch and 1 tablet at noon and 1 tablet in the evening. HYDROcodone 2023-0 Yes 1{tbl} Take 1 Un nel -acetaminop 8-03 tablet by ity of hen 10-325 13:29: mouth [place] mg tablet 18 every 6 Medical (six) Branch hours as needed for Pain (scale 7-10). carisoprodo 2023-0 Yes 350mg Take 1 [facility] vers L 350 mg 8-03 tablet by [facility]y of tablet 13:29: mouth in [place] [address] the Medical morning Branch and 1 tablet at noon and 1 tablet in the evening. HYDROcodone 2023-0 Yes 1{tbl} Take 1 Un nel -acetaminop 8-03 tablet by ity of hen 10-325 13:29: mouth [place] mg tablet 18 every 6 Medical (six) Branch hours as needed for Pain (scale 7-10). carisoprodo 2023-0 Yes 350mg Take 1 [facility] vers L 350 mg 8-03 tablet by ity of tablet 13:29: mouth in [place] [address] the Medical morning Branch and 1 tablet at noon and 1 tablet in the evening. HYDROcodone 2023-0 Yes 1{tbl} Take 1 Un nel -acetaminop 8-03 tablet by ity of hen 10-325 13:29: mouth [place] mg tablet 18 every 6 Medical (six) Branch hours as needed for Pain (scale 7-10). carisoprodo 2023-0 Yes 350mg Take 1 [facility] vers L 350 mg 8-03 tablet by ity of tablet 13:29: mouth in [place] [address] the Medical morning Branch and 1 tablet at noon and 1 tablet in the evening. HYDROcodone 2023-0 Yes 1{tbl} Take 1 Un nel -acetaminop 8-03 tablet by ity of hen 10-325 13:29: mouth [place] mg tablet 18 every 6 Medical (six) Branch hours as needed for Pain (scale 7-10). carisoprodo 2023-0 Yes 350mg Take 1 [facility] vers L 350 mg 8-03 tablet by ity of tablet 13:29: mouth in [place] 18 the Medical morning Branch and 1 tablet at noon and 1 tablet in the evening. HYDROcodone 2023-0 Yes 1{tbl} Take 1 Un nel -acetaminop 8-03 tablet by ity of hen 10-325 13:29: mouth [place] mg tablet 18 every 6 Medical (six) Branch hours as needed for Pain (scale 7-10). carisoprodo 2023-0 Yes 350mg Take 1 [facility] vers L 350 mg 8-03 tablet by ity of tablet 13:29: mouth in [place] [address] the Medical morning Branch and 1 tablet at noon and 1 tablet in the evening. HYDROcodone 2023-0 Yes 1{tbl} Take 1 Un nel -acetaminop 8-03 tablet by ity of hen 10-325 13:29: mouth [place] mg tablet 18 every 6 Medical (six) Branch hours as needed for Pain (scale 7-10). carisoprodo 2023-0 Yes 350mg Take 1 [facility] vers L 350 mg 8-03 tablet by ity of tablet 13:29: mouth in [place] 18 the Medical morning Branch and 1 tablet at noon and 1 tablet in the evening. HYDROcodone 2023-0 Yes 1{tbl} Take 1 Un nle -acetaminop 8-03 tablet by ity of hen 10-325 13:29: mouth [place] mg tablet 18 every 6 Medical (six) Branch hours as needed for Pain (scale 7-10). carisoprodo 2023-0 Yes 350mg Take 1 [facility] vers L 350 mg 8-03 tablet by ity of tablet 13:29: mouth in [place] 18 the Medical morning Branch and 1 tablet at noon and 1 tablet in the evening. HYDROcodone 2023-0 Yes 1{tbl} Take 1 Un nel -acetaminop 8-03 tablet by ity of hen 10-325 13:29: mouth [place] mg tablet 18 every 6 Medical (six) Branch hours as needed for Pain (scale 7-10). carisoprodo 2023-0 Yes 350mg Take 1 [facility] vers L 350 mg 8-03 tablet by ity of tablet 13:29: mouth in [place] 18 the Medical morning Branch and 1 tablet at noon and 1 tablet in the evening. HYDROcodone 2023-0 Yes 1{tbl} Take 1 Un nel -acetaminop 8-03 tablet by ity of hen 10-325 13:29: mouth [place] mg tablet 18 every 6 Medical (six) Branch hours as needed for Pain (scale 7-10). HYDROcodone 2023-0 Yes 1{tbl} Take 1 Un nel -acetaminop 8-03 tablet by ity of hen 10-325 13:29: mouth [place] mg tablet 18 every 6 Medical (six) Branch hours as needed for Pain (scale 7-10). HYDROcodone 2023-0 Yes 1{tbl} Take 1 Un nel -acetaminop 8-03 tablet by ity of hen 10-325 13:29: mouth [place] mg tablet 18 every 6 Medical (six) Branch hours as needed for Pain (scale 7-10). HYDROcodone 2023-0 Yes 1{tbl} Take 1 Un nel -acetaminop 8-03 tablet by ity of hen 10-325 13:29: mouth [place] mg tablet 18 every 6 Medical (six) Branch hours as needed for Pain (scale 7-10). HYDROcodone 2023-0 Yes 1{tbl} Take 1 Un nel -acetaminop 8-03 tablet by ity of hen 10-325 13:29: mouth [place] mg tablet 18 every 6 Medical (six) Branch hours as needed for Pain (scale 7-10). HYDROcodone 2023-0 Yes 1{tbl} Take 1 Un nel -acetaminop 8-03 tablet by ity of hen 10-325 13:29: mouth [place] mg tablet 18 every 6 Medical (six) Branch hours as needed for Pain (scale 7-10). HYDROcodone 2023-0 Yes 1{tbl} Take 1 Un nel -acetaminop 8-03 tablet by ity of hen 10-325 13:29: mouth [place] mg tablet 18 every 6 Medical (six) Branch hours as needed for Pain (scale 7-10). HYDROcodone 2023-0 Yes 1{tbl} Take 1 Un nel -acetaminop 8-03 tablet by ity of hen 10-325 13:29: mouth [place] mg tablet 18 every 6 Medical (six) Branch hours as needed for Pain (scale 7-10). tiZANidine 2023-0 Yes [id number] 4mg Take 1 [facility] nivers 4 mg tablet 8-03 tablet by ity of 00:00: mouth [place] 00 every 6 Medical (six) Branch hours as needed for Pain (scale 4-6). tiZANidine 2023-0 Yes [id number] 4mg Take 1 [facility] nivers 4 mg tablet 8-03 tablet by ity of 00:00: mouth [place] 00 every 6 Medical (six) Branch hours as needed for Pain (scale 4-6). tiZANidine 2023-0 Yes [id number] 4mg Take 1 [facility] nivers 4 mg tablet 8-03 tablet by ity of 00:00: mouth [place] 00 every 6 Medical (six) Branch hours as needed for Pain (scale 4-6). tiZANidine 2023-0 Yes [id number] 4mg Take 1 [facility] nivers 4 mg tablet 8-03 tablet by ity of 00:00: mouth [place] 00 every 6 Medical (six) Branch hours as needed for Pain (scale 4-6). tiZANidine 2023-0 Yes [id number] 4mg Take 1 [facility] nivers 4 mg tablet 8-03 tablet by ity of 00:00: mouth [place] 00 every 6 Medical (six) Branch hours as needed for Pain (scale 4-6). tiZANidine 2023-0 Yes [id number] 4mg Take 1 [facility] nivers 4 mg tablet 8-03 tablet by ity of 00:00: mouth [place] 00 every 6 Medical (six) Branch hours as needed for Pain (scale 4-6). tiZANidine 2023-0 Yes [id number] 4mg Take 1 [facility] nivers 4 mg tablet 8-03 tablet by ity of 00:00: mouth [place] 00 every 6 Medical (six) Branch hours as needed for Pain (scale 4-6). tiZANidine 2023-0 Yes [id number] 4mg Take 1 [facility] nivers 4 mg tablet 8-03 tablet by ity of 00:00: mouth [place] 00 every 6 Medical (six) Branch hours as needed for Pain (scale 4-6). tiZANidine 2023-0 Yes [id number] 4mg Take 1 [facility] nivers 4 mg tablet 8-03 tablet by ity of 00:00: mouth [place] 00 every 6 Medical (six) Branch hours as needed for Pain (scale 4-6). tiZANidine 2023-0 Yes [id number] 4mg Take 1 [facility] nivers 4 mg tablet 8-03 tablet by ity of 00:00: mouth [place] 00 every 6 Medical (six) Branch hours as needed for Pain (scale 4-6). tiZANidine 2023-0 Yes [id number] 4mg Take 1 U nivers 4 mg tablet 8-03 tablet by ity of 00:00: mouth [place] 00 every 6 Medical (six) Branch hours as needed for Pain (scale 4-6). tiZANidine 2023-0 Yes [id number] 4mg Take 1 [facility] nivers 4 mg tablet 8-03 tablet by ity of 00:00: mouth [place] 00 every 6 Medical (six) Branch hours as needed for Pain (scale 4-6). tiZANidine 2023-0 Yes [id number] 4mg Take 1 [facility] nivers 4 mg tablet 8-03 tablet by ity of 00:00: mouth [place] 00 every 6 Medical (six) Branch hours as needed for Pain (scale 4-6). tiZANidine 2023-0 Yes [id number] 4mg Take 1 [facility] nivers 4 mg tablet 8-03 tablet by ity of 00:00: mouth [place] 00 every 6 Medical (six) Branch hours as needed for Pain (scale 4-6). tiZANidine 2023-0 Yes [id number] 4mg Take 1 [facility] nivers 4 mg tablet 8-03 tablet by ity of 00:00: mouth [place] 00 every 6 Medical (six) Branch hours as needed for Pain (scale 4-6). tiZANidine 2023-0 Yes [id number] 4mg Take 1 [facility] nivers 4 mg tablet 8-03 tablet by ity of 00:00: mouth [place] 00 every 6 Medical (six) Branch hours as needed for Pain (scale 4-6). tiZANidine 2023-0 Yes [id number] 4mg Take 1 [facility] nivers 4 mg tablet 8-03 tablet by ity of 00:00: mouth [place] 00 every 6 Medical (six) Branch hours as needed for Pain (scale 4-6). tiZANidine 2023-0 Yes [id number] 4mg Take 1 [facility] nivers 4 mg tablet 8-03 tablet by ity of 00:00: mouth [place] 00 every 6 Medical (six) Branch hours as needed for Pain (scale 4-6). tiZANidine 2023-0 Yes [id number] 4mg Take 1 [facility] nivers 4 mg tablet 8-03 tablet by ity of 00:00: mouth [place] 00 every 6 Medical (six) Branch hours as needed for Pain (scale 4-6). tiZANidine 2023-0 Yes [id number] 4mg Take 1 [facility] nivers 4 mg tablet 8-03 tablet by [facility]y of 00:00: mouth [place] 00 every 6 Medical (six) Branch hours as needed for Pain (scale 4-6). tiZANidine 2023-0 Yes [id number] 4mg Take 1 [facility] nivers 4 mg tablet 8-03 tablet by ity of 00:00: mouth [place] 00 every 6 Medical (six) Branch hours as needed for Pain (scale 4-6). tiZANidine 2023-0 Yes [id number] 4mg Take 1 [facility] nivers 4 mg tablet 8-03 tablet by ity of 00:00: mouth [place] 00 every 6 Medical (six) Branch hours as needed for Pain (scale 4-6). tiZANidine 2023-0 Yes [id number] 4mg Take 1 [facility] nivers 4 mg tablet 8-03 tablet by ity of 00:00: mouth [place] 00 every 6 Medical (six) Branch hours as needed for Pain (scale 4-6). tiZANidine 2023-0 Yes [id number] 4mg Take 1 [facility] nivers 4 mg tablet 8-03 tablet by ity of 00:00: mouth [place] 00 every 6 Medical (six) Branch hours as needed for Pain (scale 4-6). tiZANidine 2023-0 Yes [id number] 4mg Take 1 [facility] nivers 4 mg tablet 8-03 tablet by ity of 00:00: mouth [place] 00 every 6 Medical (six) Branch hours as needed for Pain (scale 4-6). tiZANidine 2023-0 Yes [id number] 4mg Take 1 [facility] nivers 4 mg tablet 8-03 tablet by ity of 00:00: mouth [place] 00 every 6 Medical (six) Branch hours as needed for Pain (scale 4-6). tiZANidine 2023-0 Yes [id number] 4mg Take 1 [facility] nivers 4 mg tablet 8-03 tablet by ity of 00:00: mouth [place] 00 every 6 Medical (six) Branch hours as needed for Pain (scale 4-6). tiZANidine 2023-0 Yes [id number] 4mg Take 1 [facility] nivers 4 mg tablet 8-03 tablet by ity of 00:00: mouth [place] 00 every 6 Medical (six) Branch hours as needed for Pain (scale 4-6). tiZANidine 2023-0 Yes [id number] 4mg Take 1 [facility] nivers 4 mg tablet 8-03 tablet by ity of 00:00: mouth [place] 00 every 6 Medical (six) Branch hours as needed for Pain (scale 4-6). tiZANidine 2023-0 Yes [id number] 4mg Take 1 [facility] nivers 4 mg tablet 8-03 tablet by ity of 00:00: mouth [place] 00 every 6 Medical (six) Branch hours as needed for Pain (scale 4-6). tiZANidine 2023-0 Yes [id number] 4mg Take 1 [facility] nivers 4 mg tablet 8-03 tablet by ity of 00:00: mouth [place] 00 every 6 Medical (six) Branch hours as needed for Pain (scale 4-6). tiZANidine 2023-0 Yes [id number] 4mg Take 1 [facility] nivers 4 mg tablet 8-03 tablet by ity of 00:00: mouth [place] 00 every 6 Medical (six) Branch hours as needed for Pain (scale 4-6). tiZANidine 2023-0 Yes [id number] 4mg Take 1 [facility] nivers 4 mg tablet 8-03 tablet by ity of 00:00: mouth [place] 00 every 6 Medical (six) Branch hours as needed for Pain (scale 4-6). tiZANidine 2023-0 Yes [id number] 4mg Take 1 [facility] nivers 4 mg tablet 8-03 tablet by [facility]y of 00:00: mouth [place] 00 every 6 Medical (six) Branch hours as needed for Pain (scale 4-6). tiZANidine 2023-0 Yes [id number] 4mg Take 1 [facility] n[facility] 4 mg tablet 8-03 tablet by ity of 00:00: mouth [place] 00 every 6 Medical (six) Branch hours as needed for Pain (scale 4-6). tiZANidine 2023-0 Yes [id number] 4mg Take 1 [facility] nivers 4 mg tablet 8-03 tablet by ity of 00:00: mouth [place] 00 every 6 Medical (six) Branch hours as needed for Pain (scale 4-6). tiZANidine 2023-0 Yes [id number] 4mg Take 1 [facility] n[facility] 4 mg tablet 8-03 tablet by ity of 00:00: mouth [place] 00 every 6 Medical (six) Branch hours as needed for Pain (scale 4-6). tiZANidine 2023-0 Yes [id number] 4mg Take 1 [facility] nivers 4 mg tablet 8-03 tablet by ity of 00:00: mouth [place] 00 every 6 Medical (six) Branch hours as needed for Pain (scale 4-6). tiZANidine 2023-0 Yes [id number] 4mg Take 1 [facility] nivers 4 mg tablet 8-03 tablet by ity of 00:00: mouth [place] 00 every 6 Medical (six) Branch hours as needed for Pain (scale 4-6). tiZANidine 2023-0 Yes [id number] 4mg Take 1 [facility] nivers 4 mg tablet 8-03 tablet by ity of 00:00: mouth [place] 00 every 6 Medical (six) Branch hours as needed for Pain (scale 4-6). tiZANidine 2023-0 Yes [id number] 4mg Take 1 [facility] n[facility] 4 mg tablet 8-03 tablet by ity of 00:00: mouth [place] 00 every 6 Medical (six) Branch hours as needed for Pain (scale 4-6). tiZANidine 2023-0 Yes [id number] 4mg Take 1 [facility] nivers 4 mg tablet 8-03 tablet by ity of 00:00: mouth [place] 00 every 6 Medical (six) Branch hours as needed for Pain (scale 4-6). tiZANidine 2023-0 Yes [id number] 4mg Take 1 [facility] nivers 4 mg tablet 8-03 tablet by ity of 00:00: mouth [place] 00 every 6 Medical (six) Branch hours as needed for Pain (scale 4-6). tiZANidine 2023-0 Yes [id number] 4mg Take 1 [facility] nivers 4 mg tablet 8-03 tablet by ity of 00:00: mouth [place] 00 every 6 Medical (six) Branch hours as needed for Pain (scale 4-6). tiZANidine 3-0 Yes [id number] 4mg Take 1 [facility] nivers 4 mg tablet 8-03 tablet by ity of 00:00: mouth [place] 00 every 6 Medical (six) Branch hours as needed for Pain (scale 4-6). tiZANidine 3-0 Yes [id number] 4mg Take 1 [facility] nivers 4 mg tablet 8-03 tablet by ity of 00:00: mouth [place] 00 every 6 Medical (six) Branch hours as needed for Pain (scale 4-6). tiZANidine 3-0 Yes [id number] 4mg Take 1 [facility] nivers 4 mg tablet 8-03 tablet by ity of 00:00: mouth [place] 00 every 6 Medical (six) Branch hours as needed for Pain (scale 4-6). tiZANidine 3-0 Yes [id number] 4mg Take 1 [facility] nivers 4 mg tablet 8-03 tablet by ity of 00:00: mouth [place] 00 every 6 Medical (six) Branch hours as needed for Pain (scale 4-6). tiZANidine 2022-0 2023- No [id number] 4mg Take 1 [facility] 4 mg tablet 8-03 10-10 tablet by it y of 00:00: 00:00 mouth [place] 00 :00 every 6 Medical (six) Branch hours as needed for Pain (scale 4-6). ibuprofen 2022-0 202- No 800mg 800 mg, Uni vers (IBU) 12-01 Oral, ity of tablet 800 08:00: 07:53 ONCE, 1 [place] mg 00 :00 dose, On [facility] 12/01/22 at 0300, JOEY cephALEXin 2022-0 2022- No 500mg 500 mg, Un nel (KEFLEX) 12-01 Oral, ity of capsule 500 07:30: 07:39 [place]CE, 1 [place] mg 00 :00 dose, On [facility] 12/01/22 at 0230, JOEY
Re ason for Anti-Infec tive: Documented Infection< br>Documen clarita Infection Site: Abdominal< br>Duratio n of Therapy: 7 days ibuprofen 2022-0 Yes [id number] 800mg Take 1 [facility] 800 mg 7-30 [id number] tablet by ity of tablet 00:00: mouth [place] 00 every 8 Medical (eight) Branch hours as needed for Pain (scale 4-6) or Temp > 38.5 C. cephALEXin 2023-0 Yes [id number] 500mg Take 1 [facility] (KEFLEX) 7-30 [id number] capsule by ity of 500 mg 00:00: mouth 4 [place] capsule 00 (four) Medical times Branch daily. ibuprofen 2023-0 Yes [id number] 800mg Take 1 [facility] 800 mg 7-30 [id number] tablet by ity of tablet 00:00: mouth [place] 00 every 8 Medical (eight) Branch hours as needed for Pain (scale 4-6) or Temp > 38.5 C. cephALEXin 2023-0 Yes [id number] 500mg Take 1 [facility] (KEFLEX) 7-30 [id number] capsule by ity of 500 mg 00:00: mouth 4 [place] capsule 00 (four) Medical times Branch daily. ibuprofen 2023-0 Yes [id number] 800mg Take 1 [facility] 800 mg 7-30 [id number] tablet by ity of tablet 00:00: mouth [place] 00 every 8 Medical (eight) Branch hours as needed for Pain (scale 4-6) or Temp > 38.5 C. cephALEXin 2023-0 Yes [id number] 500mg Take 1 [facility] (KEFLEX) 7-30 [id number] capsule by ity of 500 mg 00:00: mouth 4 [place] capsule 00 (four) Medical times Branch daily. ibuprofen 2023-0 Yes [id number] 800mg Take 1 [facility] 800 mg 7-30 [id number] tablet by ity of tablet 00:00: mouth [place] 00 every 8 Medical (eight) Branch hours as needed for Pain (scale 4-6) or Temp > 38.5 C. cephALEXin 2023-0 Yes [id number] 500mg Take 1 [facility] (KEFLEX) 7-30 [id number] capsule by ity of 500 mg 00:00: mouth 4 [place] capsule 00 (four) Medical times Branch daily. ibuprofen 2023-0 Yes [id number] 800mg Take 1 [facility] 800 mg 7-30 [id number] tablet by ity of tablet 00:00: mouth [place] 00 every 8 Medical (eight) Branch hours as needed for Pain (scale 4-6) or Temp > 38.5 C. cephALEXin 2023-0 Yes [id number] 500mg Take 1 [facility] (KEFLEX) 7-30 [id number] capsule by ity of 500 mg 00:00: mouth 4 [place] capsule 00 (four) Medical times Branch daily. ibuprofen 2023-0 Yes [id number] 800mg Take 1 [facility] 800 mg 7-30 [id number] tablet by ity of tablet 00:00: mouth [place] 00 every 8 Medical (eight) Branch hours as needed for Pain (scale 4-6) or Temp > 38.5 C. cephALEXin 2023-0 Yes [id number] 500mg Take 1 [facility] (KEFLEX) 7-30 [id number] capsule by ity of 500 mg 00:00: mouth 4 [place] capsule 00 (four) Medical times Branch daily. ibuprofen 2023-0 Yes [id number] 800mg Take 1 [facility] 800 mg 7-30 [id number] tablet by ity of tablet 00:00: mouth [place] 00 every 8 Medical (eight) Branch hours as needed for Pain (scale 4-6) or Temp > 38.5 C. cephALEXin 2023-0 Yes [id number] 500mg Take 1 [facility] (KEFLEX) 7-30 [id number] capsule by ity of 500 mg 00:00: mouth 4 [place] capsule 00 (four) Medical times Branch daily. ibuprofen 2023-0 Yes [id number] 800mg Take 1 [facility] 800 mg 7-30 [id number] tablet by ity of tablet 00:00: mouth [place] 00 every 8 Medical (eight) Branch hours as needed for Pain (scale 4-6) or Temp > 38.5 C. cephALEXin 2023-0 Yes [id number] 500mg Take 1 [facility] (KEFLEX) 7-30 [id number] capsule by ity of 500 mg 00:00: mouth 4 [place] capsule 00 (four) Medical times Branch daily. ibuprofen 2023-0 Yes [id number] 800mg Take 1 [facility] 800 mg 7-30 [id number] tablet by ity of tablet 00:00: mouth [place] 00 every 8 Medical (eight) Branch hours as needed for Pain (scale 4-6) or Temp > 38.5 C. cephALEXin 2023-0 Yes [id number] 500mg Take 1 [facility] (KEFLEX) 7-30 [id number] capsule by ity of 500 mg 00:00: mouth 4 [place] capsule 00 (four) Medical times Branch daily. ibuprofen 2023-0 Yes [id number] 800mg Take 1 [facility] 800 mg 7-30 [id number] tablet by ity of tablet 00:00: mouth [place] 00 every 8 Medical (eight) Branch hours as needed for Pain (scale 4-6) or Temp > 38.5 C. cephALEXin 2023-0 Yes [id number] 500mg Take 1 [facility] (KEFLEX) 7-30 [id number] capsule by ity of 500 mg 00:00: mouth 4 [place] capsule 00 (four) Medical times Branch daily. ibuprofen 2023-0 Yes [id number] 800mg Take 1 [facility] 800 mg 7-30 [id number] tablet by ity of tablet 00:00: mouth [place] 00 every 8 Medical (eight) Branch hours as needed for Pain (scale 4-6) or Temp > 38.5 C. cephALEXin 2023-0 Yes [id number] 500mg Take 1 [facility] (KEFLEX) 7-30 [id number] capsule by ity of 500 mg 00:00: mouth 4 [place] capsule 00 (four) Medical times Branch daily. ibuprofen 2023-0 Yes [id number] 800mg Take 1 [facility] 800 mg 7-30 [id number] tablet by ity of tablet 00:00: mouth [place] 00 every 8 Medical (eight) Branch hours as needed for Pain (scale 4-6) or Temp > 38.5 C. cephALEXin 2023-0 Yes [id number] 500mg Take 1 [facility] (KEFLEX) 7-30 [id number] capsule by ity of 500 mg 00:00: mouth 4 [place] capsule 00 (four) Medical times Branch daily. ibuprofen 2023-0 Yes [id number] 800mg Take 1 [facility] 800 mg 7-30 [id number] tablet by ity of tablet 00:00: mouth [place] 00 every 8 Medical (eight) Branch hours as needed for Pain (scale 4-6) or Temp > 38.5 C. cephALEXin 2023-0 Yes [id number] 500mg Take 1 [facility] (KEFLEX) 7-30 [id number] capsule by ity of 500 mg 00:00: mouth 4 [place] capsule 00 (four) Medical times Branch daily. ibuprofen 2023-0 Yes [id number] 800mg Take 1 [facility] 800 mg 7-30 [id number] tablet by ity of tablet 00:00: mouth [place] 00 every 8 Medical (eight) Branch hours as needed for Pain (scale 4-6) or Temp > 38.5 C. cephALEXin 2023-0 Yes [id number] 500mg Take 1 [facility] (KEFLEX) 7-30 [id number] capsule by ity of 500 mg 00:00: mouth 4 [place] capsule 00 (four) Medical times Branch daily. ibuprofen 2023-0 Yes [id number] 800mg Take 1 [facility] 800 mg 7-30 [id number] tablet by ity of tablet 00:00: mouth [place] 00 every 8 Medical (eight) Branch hours as needed for Pain (scale 4-6) or Temp > 38.5 C. cephALEXin 2023-0 Yes [id number] 500mg Take 1 [facility] (KEFLEX) 7-30 [id number] capsule by ity of 500 mg 00:00: mouth 4 [place] capsule 00 (four) Medical times Branch daily. ibuprofen 2023-0 Yes [id number] 800mg Take 1 [facility] 800 mg 7-30 [id number] tablet by ity of tablet 00:00: mouth [place] 00 every 8 Medical (eight) Branch hours as needed for Pain (scale 4-6) or Temp > 38.5 C. cephALEXin 2023-0 Yes [id number] 500mg Take 1 [facility] (KEFLEX) 7-30 [id number] capsule by ity of 500 mg 00:00: mouth 4 [place] capsule 00 (four) Medical times Branch daily. ibuprofen 2023-0 Yes [id number] 800mg Take 1 [facility] 800 mg 7-30 [id number] tablet by ity of tablet 00:00: mouth [place] 00 every 8 Medical (eight) Branch hours as needed for Pain (scale 4-6) or Temp > 38.5 C. cephALEXin 2023-0 Yes [id number] 500mg Take 1 [facility] (KEFLEX) 7-30 [id number] capsule by ity of 500 mg 00:00: mouth 4 [place] capsule 00 (four) Medical times Branch daily. ibuprofen 2023-0 Yes [id number] 800mg Take 1 [facility] 800 mg 7-30 [id number] tablet by ity of tablet 00:00: mouth [place] 00 every 8 Medical (eight) Branch hours as needed for Pain (scale 4-6) or Temp > 38.5 C. cephALEXin 2023-0 Yes [id number] 500mg Take 1 [facility] (KEFLEX) 7-30 [id number] capsule by ity of 500 mg 00:00: mouth 4 [place] capsule 00 (four) Medical times Branch daily. ibuprofen 2023-0 Yes [id number] 800mg Take 1 [facility] 800 mg 7-30 [id number] tablet by ity of tablet 00:00: mouth [place] 00 every 8 Medical (eight) Branch hours as needed for Pain (scale 4-6) or Temp > 38.5 C. cephALEXin 2023-0 Yes [id number] 500mg Take 1 [facility] (KEFLEX) 7-30 [id number] capsule by ity of 500 mg 00:00: mouth 4 [place] capsule 00 (four) Medical times Branch daily. ibuprofen 2023-0 Yes [id number] 800mg Take 1 [facility] 800 mg 7-30 [id number] tablet by ity of tablet 00:00: mouth [place] 00 every 8 Medical (eight) Branch hours as needed for Pain (scale 4-6) or Temp > 38.5 C. cephALEXin 2023-0 Yes [id number] 500mg Take 1 [facility] (KEFLEX) 7-30 [id number] capsule by ity of 500 mg 00:00: mouth 4 [place] capsule 00 (four) Medical times Branch daily. ibuprofen 2023-0 Yes [id number] 800mg Take 1 [facility] 800 mg 7-30 [id number] tablet by ity of tablet 00:00: mouth [place] 00 every 8 Medical (eight) Branch hours as needed for Pain (scale 4-6) or Temp > 38.5 C. cephALEXin 2023-0 Yes [id number] 500mg Take 1 [facility] (KEFLEX) 7-30 [id number] capsule by ity of 500 mg 00:00: mouth 4 [place] capsule 00 (four) Medical times Branch daily. ibuprofen 2023-0 Yes [id number] 800mg Take 1 [facility] 800 mg 7-30 [id number] tablet by ity of tablet 00:00: mouth [place] 00 every 8 Medical (eight) Branch hours as needed for Pain (scale 4-6) or Temp > 38.5 C. cephALEXin 2023-0 Yes [id number] 500mg Take 1 [facility] (KEFLEX) 7-30 [id number] capsule by ity of 500 mg 00:00: mouth 4 [place] capsule 00 (four) Medical times Branch daily. ibuprofen 2023-0 Yes [id number] 800mg Take 1 [facility] 800 mg 7-30 [id number] tablet by [facility] of tablet 00:00: mouth [place] 00 every 8 Medical (eight) Branch hours as needed for Pain (scale 4-6) or Temp > 38.5 C. cephALEXin 2023-0 Yes [id number] 500mg Take 1 [facility] (KEFLEX) 7-30 [id number] capsule by [facility] of 500 mg 00:00: mouth 4 [place] capsule 00 (four) Medical times Branch daily. ibuprofen 2023-0 Yes [id number] 800mg Take 1 [facility] 800 mg 7-30 [id number] tablet by [facility] of tablet 00:00: mouth [place] 00 every 8 Medical (eight) Branch hours as needed for Pain (scale 4-6) or Temp > 38.5 C. cephALEXin 2023-0 Yes [id number] 500mg Take 1 [facility] (KEFLEX) 7-30 [id number] capsule by [facility] of 500 mg 00:00: mouth 4 [place] capsule 00 (four) Medical times Branch daily. ibuprofen 2023-0 Yes [id number] 800mg Take 1 [facility] 800 mg 7-30 [id number] tablet by [facility] of tablet 00:00: mouth [place] 00 every 8 Medical (eight) Branch hours as needed for Pain (scale 4-6) or Temp > 38.5 C. cephALEXin 2023-0 Yes [id number] 500mg Take 1 [facility] (KEFLEX) 7-30 [id number] capsule by [facility] of 500 mg 00:00: mouth 4 [place] capsule 00 (four) Medical times Branch daily. ibuprofen 2023-0 Yes [id number] 800mg Take 1 [facility] 800 mg 7-30 [id number] tablet by [facility] of tablet 00:00: mouth [place] 00 every 8 Medical (eight) Branch hours as needed for Pain (scale 4-6) or Temp > 38.5 C. cephALEXin 2023-0 Yes [id number] 500mg Take 1 [facility] (KEFLEX) 7-30 [id number] capsule by [facility] of 500 mg 00:00: mouth 4 [place] capsule 00 (four) Medical times Branch daily. ibuprofen 2023-0 Yes [id number] 800mg Take 1 [facility] 800 mg 7-30 [id number] tablet by [facility] of tablet 00:00: mouth [place] 00 every 8 Medical (eight) Branch hours as needed for Pain (scale 4-6) or Temp > 38.5 C. cephALEXin 2023-0 Yes [id number] 500mg Take 1 [facility] (KEFLEX) 7-30 [id number] capsule by [facility] of 500 mg 00:00: mouth 4 [place] capsule 00 (four) Medical times Branch daily. ibuprofen 2023-0 Yes [id number] 800mg Take 1 [facility] 800 mg 7-30 [id number] tablet by [facility] of tablet 00:00: mouth [place] 00 every 8 Medical (eight) Branch hours as needed for Pain (scale 4-6) or Temp > 38.5 C. cephALEXin 2023-0 Yes [id number] 500mg Take 1 [facility] (KEFLEX) 7-30 [id number] capsule by [facility] of 500 mg 00:00: mouth 4 [place] capsule 00 (four) Medical times Branch daily. ibuprofen 2023-0 Yes [id number] 800mg Take 1 [facility] 800 mg 7-30 [id number] tablet by [facility] of tablet 00:00: mouth [place] 00 every 8 Medical (eight) Branch hours as needed for Pain (scale 4-6) or Temp > 38.5 C. cephALEXin 2023-0 Yes [id number] 500mg Take 1 [facility] (KEFLEX) 7-30 [id number] capsule by [facility] of 500 mg 00:00: mouth 4 [place] capsule 00 (four) Medical times Branch daily. ibuprofen 2023-0 Yes [id number] 800mg Take 1 [facility] 800 mg 7-30 [id number] tablet by [facility] of tablet 00:00: mouth [place] 00 every 8 Medical (eight) Branch hours as needed for Pain (scale 4-6) or Temp > 38.5 C. cephALEXin 2023-0 Yes [id number] 500mg Take 1 [facility] (KEFLEX) 7-30 [id number] capsule by [facility] of 500 mg 00:00: mouth 4 [place] capsule 00 (four) Medical times Branch daily. ibuprofen 2023-0 Yes [id number] 800mg Take 1 [facility] 800 mg 7-30 [id number] tablet by [facility] of tablet 00:00: mouth [place] 00 every 8 Medical (eight) Branch hours as needed for Pain (scale 4-6) or Temp > 38.5 C. cephALEXin 2023-0 Yes [id number] 500mg Take 1 [facility] (KEFLEX) 7-30 [id number] capsule by [facility] of 500 mg 00:00: mouth 4 [place] capsule 00 (four) Medical times Branch daily. ibuprofen 2023-0 Yes [id number] 800mg Take 1 [facility] 800 mg 7-30 [id number] tablet by [facility] of tablet 00:00: mouth [place] 00 every 8 Medical (eight) Branch hours as needed for Pain (scale 4-6) or Temp > 38.5 C. cephALEXin 2023-0 Yes [id number] 500mg Take 1 [facility] (KEFLEX) 7-30 [id number] capsule by [facility] of 500 mg 00:00: mouth 4 [place] capsule 00 (four) Medical times Branch daily. ibuprofen 2023-0 Yes [id number] 800mg Take 1 [facility] 800 mg 7-30 [id number] tablet by [facility] of tablet 00:00: mouth [place] 00 every 8 Medical (eight) Branch hours as needed for Pain (scale 4-6) or Temp > 38.5 C. cephALEXin 2023-0 Yes [id number] 500mg Take 1 [facility] (KEFLEX) 7-30 [id number] capsule by [facility] of 500 mg 00:00: mouth 4 [place] capsule 00 (four) Medical times Branch daily. ibuprofen 2023-0 Yes [id number] 800mg Take 1 [facility] 800 mg 7-30 [id number] tablet by [facility] of tablet 00:00: mouth [place] 00 every 8 Medical (eight) Branch hours as needed for Pain (scale 4-6) or Temp > 38.5 C. cephALEXin 2023-0 Yes [id number] 500mg Take 1 [facility] (KEFLEX) 7-30 [id number] capsule by [facility] of 500 mg 00:00: mouth 4 [place] capsule 00 (four) Medical times Branch daily. ibuprofen 2023-0 Yes [id number] 800mg Take 1 [facility] 800 mg 7-30 [id number] tablet by [facility] of tablet 00:00: mouth [place] 00 every 8 Medical (eight) Branch hours as needed for Pain (scale 4-6) or Temp > 38.5 C. cephALEXin 2023-0 Yes [id number] 500mg Take 1 [facility] (KEFLEX) 7-30 [id number] capsule by [facility] of 500 mg 00:00: mouth 4 [place] capsule 00 (four) Medical times Branch daily. ibuprofen 2023-0 Yes [id number] 800mg Take 1 [facility] 800 mg 7-30 [id number] tablet by [facility] of tablet 00:00: mouth [place] 00 every 8 Medical (eight) Branch hours as needed for Pain (scale 4-6) or Temp > 38.5 C. cephALEXin 2023-0 Yes [id number] 500mg Take 1 [facility] (KEFLEX) 7-30 [id number] capsule by [facility] of 500 mg 00:00: mouth 4 [place] capsule 00 (four) Medical times Branch daily. ibuprofen 2023-0 Yes [id number] 800mg Take 1 [facility] 800 mg 7-30 [id number] tablet by [facility] of tablet 00:00: mouth [place] 00 every 8 Medical (eight) Branch hours as needed for Pain (scale 4-6) or Temp > 38.5 C. cephALEXin 2023-0 Yes [id number] 500mg Take 1 [facility] (KEFLEX) 7-30 [id number] capsule by [facility] of 500 mg 00:00: mouth 4 [place] capsule 00 (four) Medical times Branch daily. ibuprofen 2023-0 Yes [id number] 800mg Take 1 [facility] 800 mg 7-30 [id number] tablet by [facility] of tablet 00:00: mouth [place] 00 every 8 Medical (eight) Branch hours as needed for Pain (scale 4-6) or Temp > 38.5 C. cephALEXin 2023-0 Yes [id number] 500mg Take 1 [facility] (KEFLEX) 7-30 [id number] capsule by [facility] of 500 mg 00:00: mouth 4 [place] capsule 00 (four) Medical times Branch daily. ibuprofen 2023-0 Yes [id number] 800mg Take 1 [facility] 800 mg 7-30 [id number] tablet by [facility] of tablet 00:00: mouth [place] 00 every 8 Medical (eight) Branch hours as needed for Pain (scale 4-6) or Temp > 38.5 C. cephALEXin 2023-0 Yes [id number] 500mg Take 1 [facility] (KEFLEX) 7-30 [id number] capsule by [facility] of 500 mg 00:00: mouth 4 [place] capsule 00 (four) Medical times Branch daily. ibuprofen 2023-0 Yes [id number] 800mg Take 1 [facility] 800 mg 7-30 [id number] tablet by [facility] of tablet 00:00: mouth [place] 00 every 8 Medical (eight) Branch hours as needed for Pain (scale 4-6) or Temp > 38.5 C. cephALEXin 2023-0 Yes [id number] 500mg Take 1 [facility] (KEFLEX) 7-30 [id number] capsule by [facility] of 500 mg 00:00: mouth 4 [place] capsule 00 (four) Medical times Branch daily. ibuprofen 2023-0 Yes [id number] 800mg Take 1 [facility] 800 mg 7-30 [id number] tablet by [facility] of tablet 00:00: mouth [place] 00 every 8 Medical (eight) Branch hours as needed for Pain (scale 4-6) or Temp > 38.5 C. cephALEXin 2023-0 Yes [id number] 500mg Take 1 [facility] (KEFLEX) 7-30 [id number] capsule by [facility] of 500 mg 00:00: mouth 4 [place] capsule 00 (four) Medical times Branch daily. ibuprofen 2023-0 Yes [id number] 800mg Take 1 [facility] 800 mg 7-30 [id number] tablet by [facility] of tablet 00:00: mouth [place] 00 every 8 Medical (eight) Branch hours as needed for Pain (scale 4-6) or Temp > 38.5 C. cephALEXin 2023-0 Yes [id number] 500mg Take 1 [facility] (KEFLEX) 7-30 [id number] capsule by [facility] of 500 mg 00:00: mouth 4 [place] capsule 00 (four) Medical times Branch daily. ibuprofen 2023-0 Yes [id number] 800mg Take 1 [facility] 800 mg 7-30 [id number] tablet by [facility] of tablet 00:00: mouth [place] 00 every 8 Medical (eight) Branch hours as needed for Pain (scale 4-6) or Temp > 38.5 C. cephALEXin 2023-0 Yes [id number] 500mg Take 1 [facility] (KEFLEX) 7-30 [id number] capsule by [facility] of 500 mg 00:00: mouth 4 [place] capsule 00 (four) Medical times Branch daily. ibuprofen 2023-0 Yes [id number] 800mg Take 1 [facility] 800 mg 7-30 [id number] tablet by [facility] of tablet 00:00: mouth [place] 00 every 8 Medical (eight) Branch hours as needed for Pain (scale 4-6) or Temp > 38.5 C. cephALEXin 2023-0 Yes [id number] 500mg Take 1 [facility] (KEFLEX) 7-30 [id number] capsule by [facility] of 500 mg 00:00: mouth 4 [place] capsule 00 (four) Medical times Branch daily. ibuprofen 2023-0 Yes [id number] 800mg Take 1 [facility] 800 mg 7-30 [id number] tablet by [facility] of tablet 00:00: mouth [place] 00 every 8 Medical (eight) Branch hours as needed for Pain (scale 4-6) or Temp > 38.5 C. cephALEXin 2023-0 Yes [id number] 500mg Take 1 [facility] (KEFLEX) 7-30 [id number] capsule by [facility] of 500 mg 00:00: mouth 4 [place] capsule 00 (four) Medical times Branch daily. ibuprofen 2023-0 Yes [id number] 800mg Take 1 [facility] 800 mg 7-30 [id number] tablet by [facility] of tablet 00:00: mouth [place] 00 every 8 Medical (eight) Branch hours as needed for Pain (scale 4-6) or Temp > 38.5 C. cephALEXin 2023-0 Yes [id number] 500mg Take 1 [facility] (KEFLEX) 7-30 [id number] capsule by [facility] of 500 mg 00:00: mouth 4 [place] capsule 00 (four) Medical times Branch daily. ibuprofen 2023-0 Yes [id number] 800mg Take 1 [facility] 800 mg 7-30 [id number] tablet by [facility] of tablet 00:00: mouth [place] 00 every 8 Medical (eight) Branch hours as needed for Pain (scale 4-6) or Temp > 38.5 C. cephALEXin 2023-0 Yes [id number] 500mg Take 1 [facility] (KEFLEX) 7-30 [id number] capsule by [facility] of 500 mg 00:00: mouth 4 [place] capsule 00 (four) Medical times Branch daily. ibuprofen 2023-0 Yes [id number] 800mg Take 1 [facility] 800 mg 7-30 [id number] tablet by [facility] of tablet 00:00: mouth [place] 00 every 8 Medical (eight) Branch hours as needed for Pain (scale 4-6) or Temp > 38.5 C. cephALEXin 2023-0 Yes [id number] 500mg Take 1 [facility] (KEFLEX) 7-30 [id number] capsule by [facility] of 500 mg 00:00: mouth 4 [place] capsule 00 (four) Medical times Branch daily. ibuprofen 2023-0 Yes [id number] 800mg Take 1 [facility] 800 mg 7-30 [id number] tablet by [facility] of tablet 00:00: mouth [place] 00 every 8 Medical (eight) Branch hours as needed for Pain (scale 4-6) or Temp > 38.5 C. cephALEXin 2023-0 Yes [id number] 500mg Take 1 [facility] (KEFLEX) 7-30 [id number] capsule by [facility] of 500 mg 00:00: mouth 4 [place] capsule 00 (four) Medical times Branch daily. ibuprofen 2023-0 Yes [id number] 800mg Take 1 [facility] 800 mg 7-30 [id number] tablet by [facility] of tablet 00:00: mouth [place] 00 every 8 Medical (eight) Branch hours as needed for Pain (scale 4-6) or Temp > 38.5 C. cephALEXin 2023-0 Yes [id number] 500mg Take 1 [facility] (KEFLEX) 7-30 [id number] capsule by [facility] of 500 mg 00:00: mouth 4 [place] capsule 00 (four) Medical times Branch daily. ibuprofen 2023-0 Yes [id number] 800mg Take 1 [facility] 800 mg 7-30 [id number] tablet by [facility] of tablet 00:00: mouth [place] 00 every 8 Medical (eight) Branch hours as needed for Pain (scale 4-6) or Temp > 38.5 C. cephALEXin 2023-0 Yes [id number] 500mg Take 1 [facility] (KEFLEX) 7-30 [id number] capsule by [facility] of 500 mg 00:00: mouth 4 [place] capsule 00 (four) Medical times Branch daily. ibuprofen 2023-0 Yes [id number] 800mg Take 1 [facility] 800 mg 7-30 [id number] tablet by [facility] of tablet 00:00: mouth [place] 00 every 8 Medical (eight) Branch hours as needed for Pain (scale 4-6) or Temp > 38.5 C. cephALEXin 2023-0 Yes [id number] 500mg Take 1 [facility] (KEFLEX) 7-30 [id number] capsule by [facility] of 500 mg 00:00: mouth 4 [place] capsule 00 (four) Medical times Branch daily. ibuprofen 2023-0 Yes [id number] 800mg Take 1 [facility] 800 mg 7-30 [id number] tablet by [facility] of tablet 00:00: mouth [place] 00 every 8 Medical (eight) Branch hours as needed for Pain (scale 4-6) or Temp > 38.5 C. cephALEXin 2023-0 Yes [id number] 500mg Take 1 [facility] (KEFLEX) 7-30 [id number] capsule by [facility] of 500 mg 00:00: mouth 4 [place] capsule 00 (four) Medical times Branch daily. ibuprofen 2023-0 Yes [id number] 800mg Take 1 [facility] 800 mg 7-30 [id number] tablet by [facility] of tablet 00:00: mouth [place] 00 every 8 Medical (eight) Branch hours as needed for Pain (scale 4-6) or Temp > 38.5 C. cephALEXin 2023-0 Yes [id number] 500mg Take 1 [facility] (KEFLEX) 7-30 [id number] capsule by [facility] of 500 mg 00:00: mouth 4 [place] capsule 00 (four) Medical times Branch daily. ibuprofen 2023-0 Yes [id number] 800mg Take 1 [facility] 800 mg 7-30 [id number] tablet by [facility] of tablet 00:00: mouth [place] 00 every 8 Medical (eight) Branch hours as needed for Pain (scale 4-6) or Temp > 38.5 C. cephALEXin 2023-0 Yes [id number] 500mg Take 1 [facility] (KEFLEX) 7-30 [id number] capsule by [facility] of 500 mg 00:00: mouth 4 [place] capsule 00 (four) Medical times Branch daily. ibuprofen 2023-0 Yes [id number] 800mg Take 1 [facility] 800 mg 7-30 [id number] tablet by [facility] of tablet 00:00: mouth [place] 00 every 8 Medical (eight) Branch hours as needed for Pain (scale 4-6) or Temp > 38.5 C. cephALEXin 2023-0 Yes [id number] 500mg Take 1 [facility] (KEFLEX) 7-30 [id number] capsule by [facility] of 500 mg 00:00: mouth 4 [place] capsule 00 (four) Medical times Branch daily. ibuprofen 2023-0 Yes [id number] 800mg Take 1 [facility] 800 mg 7-30 [id number] tablet by [facility] of tablet 00:00: mouth [place] 00 every 8 Medical (eight) Branch hours as needed for Pain (scale 4-6) or Temp > 38.5 C. cephALEXin 2023-0 Yes [id number] 500mg Take 1 [facility] (KEFLEX) 7-30 [id number] capsule by [facility] of 500 mg 00:00: mouth 4 [place] capsule 00 (four) Medical times Branch daily. ibuprofen 2023-0 Yes [id number] 800mg Take 1 [facility] 800 mg 7-30 [id number] tablet by [facility] of tablet 00:00: mouth [place] 00 every 8 Medical (eight) Branch hours as needed for Pain (scale 4-6) or Temp > 38.5 C. cephALEXin 2023-0 Yes [id number] 500mg Take 1 [facility] (KEFLEX) 7-30 [id number] capsule by [facility] of 500 mg 00:00: mouth 4 [place] capsule 00 (four) Medical times Branch daily. ibuprofen 2023-0 Yes [id number] 800mg Take 1 [facility] 800 mg 7-30 [id number] tablet by [facility] of tablet 00:00: mouth [place] 00 every 8 Medical (eight) Branch hours as needed for Pain (scale 4-6) or Temp > 38.5 C. cephALEXin 2023-0 Yes [id number] 500mg Take 1 [facility] (KEFLEX) 7-30 [id number] capsule by [facility] of 500 mg 00:00: mouth 4 [place] capsule 00 (four) Medical times Branch daily. ibuprofen 2023-0 Yes [id number] 800mg Take 1 [facility] 800 mg 7-30 [id number] tablet by [facility] of tablet 00:00: mouth [place] 00 every 8 Medical (eight) Branch hours as needed for Pain (scale 4-6) or Temp > 38.5 C. cephALEXin 2023-0 Yes [id number] 500mg Take 1 [facility] (KEFLEX) 7-30 [id number] capsule by [facility] of 500 mg 00:00: mouth 4 [place] capsule 00 (four) Medical times Branch daily. ibuprofen 2023-0 Yes [id number] 800mg Take 1 [facility] 800 mg 7-30 [id number] tablet by [facility] of tablet 00:00: mouth [place] 00 every 8 Medical (eight) Branch hours as needed for Pain (scale 4-6) or Temp > 38.5 C. cephALEXin 2023-0 Yes [id number] 500mg Take 1 [facility] (KEFLEX) 7-30 [id number] capsule by [facility]y of 500 mg 00:00: mouth 4 [place] capsule 00 (four) Medical times Branch daily. ibuprofen 2023-0 Yes [id number] 800mg Take 1 [facility] 800 mg 7-30 [id number] tablet by [facility] of tablet 00:00: mouth [place] 00 every 8 Medical (eight) Branch hours as needed for Pain (scale 4-6) or Temp > 38.5 C. cephALEXin 2023-0 Yes [id number] 500mg Take 1 [facility] (KEFLEX) 7-30 [id number] capsule by ity of 500 mg 00:00: mouth 4 [place] capsule 00 (four) Medical times Branch daily. ibuprofen 2023-0 Yes [id number] 800mg Take 1 [facility] 800 mg 7-30 [id number] tablet by [facility] of tablet 00:00: mouth [place] 00 every 8 Medical (eight) Branch hours as needed for Pain (scale 4-6) or Temp > 38.5 C. cephALEXin 2023-0 Yes [id number] 500mg Take 1 [facility] (KEFLEX) 7-30 [id number] capsule by [facility] of 500 mg 00:00: mouth 4 [place] capsule 00 (four) Medical times Branch daily. ibuprofen 2023-0 Yes [id number] 800mg Take 1 [facility] 800 mg 7-30 [id number] tablet by [facility] of tablet 00:00: mouth [place] 00 every 8 Medical (eight) Branch hours as needed for Pain (scale 4-6) or Temp > 38.5 C. cephALEXin 2023-0 Yes [id number] 500mg Take 1 [facility] (KEFLEX) 7-30 [id number] capsule by [facility] of 500 mg 00:00: mouth 4 [place] capsule 00 (four) Medical times Branch daily. ibuprofen 2023-0 Yes [id number] 800mg Take 1 [facility] 800 mg 7-30 [id number] tablet by [facility] of tablet 00:00: mouth [place] 00 every 8 Medical (eight) Branch hours as needed for Pain (scale 4-6) or Temp > 38.5 C. cephALEXin 2023-0 Yes [id number] 500mg Take 1 [facility] (KEFLEX) 7-30 [id number] capsule by it[facility] of 500 mg 00:00: mouth 4 [place] capsule 00 (four) Medical times Branch daily. ibuprofen 2023-0 Yes [id number] 800mg Take 1 [facility] 800 mg 7-30 [id number] tablet by [facility] of tablet 00:00: mouth [place] 00 every 8 Medical (eight) Branch hours as needed for Pain (scale 4-6) or Temp > 38.5 C. cephALEXin 2023-0 Yes [id number] 500mg Take 1 [facility] (KEFLEX) 7-30 [id number] capsule by it[facility] of 500 mg 00:00: mouth 4 [place] capsule 00 (four) Medical times Branch daily. ibuprofen 2023-0 Yes [id number] 800mg Take 1 [facility] 800 mg 7-30 [id number] tablet by [facility] of tablet 00:00: mouth [place] 00 every 8 Medical (eight) Branch hours as needed for Pain (scale 4-6) or Temp > 38.5 C. cephALEXin 2023-0 Yes [id number] 500mg Take 1 [facility] (KEFLEX) 7-30 [id number] capsule by ity of 500 mg 00:00: mouth 4 [place] capsule 00 (four) Medical times Branch daily. ibuprofen 2023-0 Yes [id number] 800mg Take 1 [facility] 800 mg 7-30 [id number] tablet by [facility] of tablet 00:00: mouth [place] 00 every 8 Medical (eight) Branch hours as needed for Pain (scale 4-6) or Temp > 38.5 C. cephALEXin 2023-0 Yes [id number] 500mg Take 1 [facility] (KEFLEX) 7-30 [id number] capsule by ity of 500 mg 00:00: mouth 4 [place] capsule 00 (four) Medical times Branch daily. ibuprofen 2023-0 2023- No [id number] 800mg Take 1 [facility] 800 mg 7-30 - [id number] tablet by ity o f tablet 00:00: 00:00 mouth [place] 00 :00 every 8 Medical (eight) Branch hours as needed for Pain (scale 4-6) or Temp > 38.5 C. cephALEXin 2023-0 2023- No [id number] 500mg Take 1 [facility] (KEFLEX) 7-30 - [id number] capsule by it y of 500 mg 00:00: 00:00 mouth 4 [place] capsule 00 :00 (four) Medical times Branch daily. ibuprofen 2023-0 2023- No [id number] 800mg Take 1 [facility] 800 mg 12-01 [id number] tablet by ity o f tablet 00:00: 00:00 mouth [place] 00 :00 every 8 Medical (eight) Branch hours as needed for Pain (scale 4-6) or Temp > 38.5 C. cephALEXin 2023-0 2023- No [id number] 500mg Take 1 [facility] (KEFLEX) 12-01 [id number] capsule by it y of 500 mg 00:00: 00:00 mouth 4 [place] capsule 00 :00 (four) Medical times Branch daily. ibuprofen 2023-0 2023- No [id number] 800mg Take 1 [facility] 800 mg 12-01 [id number] tablet by ity o f tablet 00:00: 00:00 mouth [place] 00 :00 every 8 Medical (eight) Branch hours as needed for Pain (scale 4-6) or Temp > 38.5 C. cephALEXin 2023-0 2023- No [id number] 500mg Take 1 [facility] (KEFLEX) 12-01 [id number] capsule by it y of 500 mg 00:00: 00:00 mouth 4 [place] capsule 00 :00 (four) Medical times Branch daily. carisoprodo 2023-0 Yes 350mg Take 1 [facility] vers L 350 mg 7-29 tablet by ity of tablet 11:43: mouth in [place] [address] the Medical morning Branch and 1 tablet at noon and 1 tablet in the evening. carisoprodo 2023-0 Yes 350mg Take 1 [facility] vers L 350 mg 7-29 tablet by ity of tablet 11:43: mouth in [place] [address] the Medical morning Branch and 1 tablet at noon and 1 tablet in the evening. HYDROcodone 2023-0 Yes 1{tbl} Take 1 [facility] -acetaminop 7-29 tablet by ity of hen 10-325 11:43: mouth [place] mg tablet 10 every 6 Medical (six) Branch hours as needed for Pain (scale 7-10). HYDROcodone 2023-0 Yes 1{tbl} Take 1 [facility] nel -acetaminop 7-29 tablet by ity of hen 10-325 11:43: mouth [place] mg tablet 10 every 6 Medical (six) Branch hours as needed for Pain (scale 7-10). budesonide- No [id number] 2{puff} Inhale 2 [facility] formoteroL 7-29 08-29 Puffs in ity of 160-4.5 00:00: 04:59 the [place] mcg/actuati 00 :00 morning Medic al on inhaler and 2 Branch Puffs in the evening. Do all this for 30 days. furosemide 2022- No [id number] 40mg Take 1 [facility] 40 mg 7-29 08-29 tablet by ity of tablet 00:00: 04:59 mouth in [place] 00 :00 the Medical morning Branch for 30 days. budesonide- No [id number] 2{puff} Inhale 2 [facility] formoteroL 7-29 08-29 Puffs in ity of 160-4.5 00:00: 04:59 the [place] mcg/actuati 00 :00 morning Medic al on inhaler and 2 Branch Puffs in the evening. Do all this for 30 days. furosemide 2022- No [id number] 40mg Take 1 [facility] 40 mg 7-29 08-29 tablet by ity of tablet 00:00: 04:59 mouth in [place] 00 :00 the Medical morning Branch for 30 days. budesonide- No [id number] 2{puff} Inhale 2 [facility] formoteroL 7-29 08-29 Puffs in ity of 160-4.5 00:00: 04:59 the [place] mcg/actuati 00 :00 morning Medic al on inhaler and 2 Branch Puffs in the evening. Do all this for 30 days. furosemide No [id number] 40mg Take 1 [facility] 40 mg 7-29 08-29 tablet by ity of tablet 00:00: 04:59 mouth in [place] 00 :00 the Medical morning Branch for 30 days. budesonide- No [id number] 2{puff} Inhale 2 [facility] formoteroL 7-29 08-29 Puffs in ity of 160-4.5 00:00: 04:59 the [place] mcg/actuati 00 :00 morning Medic al on inhaler and 2 Branch Puffs in the evening. Do all this for 30 days. furosemide 2022- No [id number] 40mg Take 1 [facility] 40 mg 7-29 08-29 tablet by ity of tablet 00:00: 04:59 mouth in [place] 00 :00 the Medical morning Branch for 30 days. budesonide- 2022- No [id number] 2{puff} Inhale 2 [facility] formoteroL 7-29 08-29 Puffs in ity of 160-4.5 00:00: 04:59 the [place] mcg/actuati 00 :00 morning Medic al on inhaler and 2 Branch Puffs in the evening. Do all this for 30 days. furosemide 2022-2022- No [id number] 40mg Take 1 [facility] 40 mg 7-29 08-29 tablet by ity of tablet 00:00: 04:59 mouth in [place] 00 :00 the [facility] for 30 days. budesonide- 2022- No [id number] 2{puff} Inhale 2 [facility] formoteroL 7-29 08-29 Puffs in ity of 160-4.5 00:00: 04:59 the [place] mcg/actuati 00 :00 morning Medic al on inhaler and 2 Branch Puffs in the evening. Do all this for 30 days. furosemide 2022- No [id number] 40mg Take 1 [facility] 40 mg 7-29 08-29 tablet by ity of tablet 00:00: 04:59 mouth in [place] 00 :00 the [facility] for 30 days. budesonide- 2022- No [id number] 2{puff} Inhale 2 [facility] formoteroL 7-29 08-29 Puffs in ity of 160-4.5 00:00: 04:59 the [place] mcg/actuati 00 :00 morning Medic al on inhaler and 2 Branch Puffs in the evening. Do all this for 30 days. furosemide 2022-2022- No [id number] 40mg Take 1 [facility] 40 mg 7-29 08-29 tablet by ity of tablet 00:00: 04:59 mouth in [place] 00 :00 the [facility] morning Branch for 30 days. budesonide- 2022- No [id number] 2{puff} Inhale 2 [facility] formoteroL 7-29 08-29 Puffs in ity of 160-4.5 00:00: 04:59 the [place] mcg/actuati 00 :00 morning Medic al on inhaler and 2 Branch Puffs in the evening. Do all this for 30 days. furosemide 2022-2022- No [id number] 40mg Take 1 [facility] 40 mg 7-29 08-29 tablet by ity of tablet 00:00: 04:59 mouth in [place] 00 :00 the [facility] for 30 days. budesonide- 2022- No [id number] 2{puff} Inhale 2 [facility] formoteroL 7-29 08-29 Puffs in ity of 160-4.5 00:00: 04:59 the [place] mcg/actuati 00 :00 morning Medic al on inhaler and 2 Branch Puffs in the evening. Do all this for 30 days. furosemide 2022- No [id number] 40mg Take 1 [facility] 40 mg 7-29 08-29 tablet by ity of tablet 00:00: 04:59 mouth in [place] 00 :00 the [facility] for 30 days. budesonide- 2022-0 2022- No [id number] 2{puff} Inhale 2 [facility] formoteroL 7-29 08-29 Puffs in ity of 160-4.5 00:00: 04:59 the [place] mcg/actuati 00 :00 morning Medic al on inhaler and 2 Branch Puffs in the evening. Do all this for 30 days. furosemide 2022-2022- No [id number] 40mg Take 1 [facility] 40 mg 7-29 08-29 tablet by ity of tablet 00:00: 04:59 mouth in [place] 00 :00 the [facility] for 30 days. budesonide- 2022-0 2022- No [id number] 2{puff} Inhale 2 [facility] formoteroL 7-29 08-29 Puffs in ity of 160-4.5 00:00: 04:59 the [place] mcg/actuati 00 :00 morning Medic al on inhaler and 2 Branch Puffs in the evening. Do all this for 30 days. furosemide 2022-2022- No [id number] 40mg Take 1 [facility] 40 mg 7-29 08-29 tablet by ity of tablet 00:00: 04:59 mouth in [place] 00 :00 the Medical morning Branch for 30 days. budesonide- No [id number] 2{puff} Inhale 2 [facility] formoteroL 7-29 08-29 Puffs in ity of 160-4.5 00:00: 04:59 the [place] mcg/actuati 00 :00 morning Medic al on inhaler and 2 Branch Puffs in the evening. Do all this for 30 days. furosemide No [id number] 40mg Take 1 [facility] 40 mg 7-29 08-29 tablet by ity of tablet 00:00: 04:59 mouth in [place] 00 :00 the [facility] Branch for 30 days. budesonide- No [id number] 2{puff} Inhale 2 Univers formoteroL 7-29 08-29 Puffs in ity of 160-4.5 00:00: 04:59 the [place] mcg/actuati 00 :00 morning Medic al on inhaler and 2 Branch Puffs in the evening. Do all this for 30 days. furosemide 2022- No [id number] 40mg Take 1 Univers 40 mg 7-29 08-29 tablet by ity of tablet 00:00: 04:59 mouth in [place] 00 :00 the [facility] for 30 days. budesonide- No [id number] 2{puff} Inhale 2 [facility] formoteroL 7-29 08-29 Puffs in ity of 160-4.5 00:00: 04:59 the [place] mcg/actuati 00 :00 morning Medic al on inhaler and 2 Branch Puffs in the evening. Do all this for 30 days. furosemide No [id number] 40mg Take 1 Univers 40 mg 7-29 08-29 tablet by ity of tablet 00:00: 04:59 mouth in [place] 00 :00 the [facility] for 30 days. budesonide- No [id number] 2{puff} Inhale 2 [facility] formoteroL 7-29 08-29 Puffs in ity of 160-4.5 00:00: 04:59 the [place] mcg/actuati 00 :00 morning Medic al on inhaler and 2 Branch Puffs in the evening. Do all this for 30 days. furosemide 2022- No [id number] 40mg Take 1 Univers 40 mg 7-29 08-29 tablet by ity of tablet 00:00: 04:59 mouth in [place] 00 :00 the [facility] for 30 days. budesonide- 2022- No [id number] 2{puff} Inhale 2 [facility] formoteroL 7-29 08-29 Puffs in ity of 160-4.5 00:00: 04:59 the [place] mcg/actuati 00 :00 morning Medic al on inhaler and 2 Branch Puffs in the evening. Do all this for 30 days. furosemide 2022-2022- No [id number] 40mg Take 1 Univers 40 mg 7-29 08-29 tablet by ity of tablet 00:00: 04:59 mouth in [place] 00 :00 the [facility] for 30 days. budesonide- 2022- No [id number] 2{puff} Inhale 2 [facility] formoteroL 7-29 08-29 Puffs in ity of 160-4.5 00:00: 04:59 the [place] mcg/actuati 00 :00 morning Medic al on inhaler and 2 Branch Puffs in the evening. Do all this for 30 days. furosemide 2022- No [id number] 40mg Take 1 [facility] 40 mg 7-29 08-29 tablet by ity of tablet 00:00: 04:59 mouth in [place] 00 :00 the [facility] for 30 days. budesonide- 2022- No [id number] 2{puff} Inhale 2 [facility] formoteroL 7-29 08-29 Puffs in ity of 160-4.5 00:00: 04:59 the [place] mcg/actuati 00 :00 morning Medic al on inhaler and 2 Branch Puffs in the evening. Do all this for 30 days. furosemide 2022-2022- No [id number] 40mg Take 1 [facility] 40 mg 7-29 08-29 tablet by ity of tablet 00:00: 04:59 mouth in [place] 00 :00 the [facility] morning [place] for 30 days. budesonide- 2022-0 2022- No [id number] 2{puff} Inhale 2 [facility] formoteroL 7-29 08-29 Puffs in ity of 160-4.5 00:00: 04:59 the [place] mcg/actuati 00 :00 morning Medic al on inhaler and 2 Branch Puffs in the evening. Do all this for 30 days. furosemide 2022- No [id number] 40mg Take 1 [facility] 40 mg 7-29 08-29 tablet by ity of tablet 00:00: 04:59 mouth in [place] 00 :00 the [facility] for 30 days. budesonide- 2022- No [id number] 2{puff} Inhale 2 [facility] formoteroL 7-29 08-29 Puffs in ity of 160-4.5 00:00: 04:59 the [place] mcg/actuati 00 :00 morning Medic al on inhaler and 2 Branch Puffs in the evening. Do all this for 30 days. furosemide 2022-2022- No [id number] 40mg Take 1 [facility] 40 mg 7-29 08-29 tablet by ity of tablet 00:00: 04:59 mouth in [place] 00 :00 the [facility] for 30 days. budesonide- 2022- No [id number] 2{puff} Inhale 2 [facility] formoteroL 7-29 08-29 Puffs in ity of 160-4.5 00:00: 04:59 the [place] mcg/actuati 00 :00 morning Medic al on inhaler and 2 Branch Puffs in the evening. Do all this for 30 days. furosemide 2022- No [id number] 40mg Take 1 Univers 40 mg 7-29 08-29 tablet by ity of tablet 00:00: 04:59 mouth in [place] 00 :00 the [facility] for 30 days. budesonide- 2022-0 2022- No [id number] 2{puff} Inhale 2 [facility] formoteroL 7-29 08-29 Puffs in ity of 160-4.5 00:00: 04:59 the [place] mcg/actuati 00 :00 morning Medic al on inhaler and 2 Branch Puffs in the evening. Do all this for 30 days. furosemide 2022-2022- No [id number] 40mg Take 1 Univers 40 mg 7-29 08-29 tablet by ity of tablet 00:00: 04:59 mouth in [place] 00 :00 the [facility] for 30 days. budesonide- 2022- No [id number] 2{puff} Inhale 2 [facility] formoteroL 7-29 08-29 Puffs in ity of 160-4.5 00:00: 04:59 the [place] mcg/actuati 00 :00 morning Medic al on inhaler and 2 Branch Puffs in the evening. Do all this for 30 days. furosemide 2022- No [id number] 40mg Take 1 Univers 40 mg 7-29 08-29 tablet by ity of tablet 00:00: 04:59 mouth in [place] 00 :00 the [facility] for 30 days. budesonide- 2022-0 2022- No [id number] 2{puff} Inhale 2 [facility] formoteroL 7-29 08-29 Puffs in ity of 160-4.5 00:00: 04:59 the [place] mcg/actuati 00 :00 morning Medic al on inhaler and 2 Branch Puffs in the evening. Do all this for 30 days. furosemide 2022- No [id number] 40mg Take 1 [facility] 40 mg 7-29 08-29 tablet by ity of tablet 00:00: 04:59 mouth in [place] 00 :00 the [facility] for 30 days. budesonide- No [id number] 2{puff} Inhale 2 [facility] formoteroL 7-29 08-29 Puffs in ity of 160-4.5 00:00: 04:59 the [place] mcg/actuati 00 :00 morning Medic al on inhaler and 2 Branch Puffs in the evening. Do all this for 30 days. furosemide 2022- No [id number] 40mg Take 1 [facility] 40 mg 7-29 08-29 tablet by ity of tablet 00:00: 04:59 mouth in [place] 00 :00 the [facility] for 30 days. budesonide- 2022-0 2022- No [id number] 2{puff} Inhale 2 [facility] formoteroL 7-29 08-29 Puffs in ity of 160-4.5 00:00: 04:59 the [place] mcg/actuati 00 :00 morning Medic al on inhaler and 2 Branch Puffs in the evening. Do all this for 30 days. furosemide 2023-0 2023- No [id number] 40mg Take 1 [facility] 40 mg 7-29 08-29 tablet by ity of tablet 00:00: 04:59 mouth in [place] 00 :00 [facility] for 30 days. budesonide- No [id number] 2{puff} Inhale 2 [facility] formoteroL 7-29 08-29 Puffs in ity of 160-4.5 00:00: 04:59 the [place] mcg/actuati 00 :00 morning Medic al on inhaler and 2 Branch Puffs in the evening. Do all this for 30 days. furosemide No [id number] 40mg Take 1 [facility] 40 mg 7-29 08-29 tablet by ity of tablet 00:00: 04:59 mouth in [place] 00 :00 [facility] for 30 days. budesonide- 2022- No [id number] 2{puff} Inhale 2 [facility] formoteroL 7-29 08-29 Puffs in ity of 160-4.5 00:00: 04:59 the [place] mcg/actuati 00 :00 morning Medic al on inhaler and 2 Branch Puffs in the evening. Do all this for 30 days. furosemide No [id number] 40mg Take 1 [facility] 40 mg 7-29 08-29 tablet by ity of tablet 00:00: 04:59 mouth in [place] 00 :00 [facility] for 30 days. predniSONE 2022- No [id number] 40mg Take 2 Univers 20 mg 7-29 08-03 tablets by ity of tablet 00:00: 04:59 mouth in [place] 00 :00 [facility] for 4 days. predniSONE 2022-2022- No [id number] 40mg Take 2 Univers 20 mg 7-29 08-03 tablets by ity of tablet 00:00: 04:59 mouth in [place] 00 :00 [facility] for 4 days. predniSONE Yes 40mg 40 mg, Unive rs (DELTASONE) 7- Oral, ity of tablet 40 14:00: DAILY, [place] mg 00 First dose Medical (after Branch last modificati on) on Fri11/29/22 at 0900, Until Discontinu ed, Routine Sliding 2022- No Subcutaneo Uni vers Scale 11-28 us, Q4H, ity of Insulin-Reg 21:30: 04:24 First dose [place] ular 00 :42 (after Medical last Branch modificati on) on [facility] 11/28/22 at 1630, Until Discontinu ed, Routine iopamidol 2022- No [id number] 90mL 90 mL, Univers (ISOVUE 11-28 Intravenou ity o f 370-500 mL) 14:15: 14:30 s, ONCE, 1 [place] injection 00 :00 dose, On Medica l 90 mL [facility] Branch 11/28/22 at 0930, Routine furosemide Yes 40mg 40 mg, Unive rs (LASIX) 11-28 Oral, ity of tablet 40 14:00: DAILY, [place] mg 00 First dose Medical on [facility] Branch 11/28/22 at 0900, Until Discontinu ed, Routine lisinopriL Yes 20mg 20 mg, Unive rs (PRINIVIL,Z 11-28 Oral, ity of ESTRIL) 14:00: DAILY, [place] tablet 20 00 First dose Medi pablito mg on [facility] Branch 11/28/22 at 0900, Until Discontinu ed, Routine predniSONE 2022- No 20mg 20 mg, Univ ers (DELTASONE) 11-28 Oral, ity of tablet 20 14:00: 21:20 DAILY, [place] mg 00 :52 First dose Medical on [facility] Branch 11/28/22 at 0900, Until Discontinu ed, Routine budesonide- 0 Yes 2{puff} 2 Puff, Univers formoteroL 11-28 Inhalation ity of (SYMBICORT) 13:00: , BID, [place] 160-4.5 00 First dose Medica l mcg/actuati (after Branch on inhaler last 2 Puff modificati on) on [facility] 11/28/22 at 0800, Until Discontinu ed ipratropium Yes 3mL 3 mL, Unive rs -albuteroL 11-28 Inhalation ity of (DUONEB) 13:00: , QID, [place] 0.5 mg-3 00 First dose Medic al mg(2.5 mg on [place] [facility] base)/3 mL 11/28/22 at nebulizer 0800, solution 3 Until mL Discontinu ed, Routine carvediloL Yes 3.125mg 3.125 mg, Univers (COREG) 11-28 Oral, BID ity of tablet 13:00: MEALS, [place] 3.125 mg 00 First dose Medic al on [place] [facility] 11/28/22 at 0800, Until Discontinu ed, Routine apixaban Yes 5mg 5 mg, Univers (ELIQUIS) 11-28 Oral, BID, ity of tablet 5 mg 13:00: First dose [place] 00 on [place] [facility] 11/28/22 at Branch 0800, Until Discontinu ed, Routine
Indicatio ns: Non-Valvul ar Atrial Fibrillati on Sliding 2022- No Subcutaneo Uni vers Scale 11-28 us, AC+HS, ity of Insulin-Reg 12:30: 21:21 First dose [place] ular 00 :30 on [place] [facility] 11/28/22 at Branch 0730, Until Discontinu ed, Routine insulin 2022- No 8U 8 Units, Unive rs regular 11-28 Subcutaneo ity o f human 11:30: 11:12 , ONCE, [place] (HUMULIN R) 00 :00 1 dose, On Me dical injection 8 [place] [facility] Units 11/28/22 at 0630, Routine
Indicatio n for insulin: Hyperglyce brandi insulin 2022- No 5U 5 Units, Unive rs glargine 11-28 Subcutaneo ity of (LANTUS 05:45: 05:19 us, ONCE, [place] U-100) 00 :00 1 dose, On Medical injection 5 [place] [facility] Units 11/28/22 at 0045, Routine methylPREDN 2022- No 40mg 40 mg, Uni vers ISolone sod 11-28 Slow IV ity of succ 05:00: 13:20 Push, Q6H, [place] (SOLU-MEDRO 00 :32 First dose Me dical L (PF)) on [place] [facility] injection 11/28/22 at 40 mg 0000, Until Discontinu ed, Routine dextrose 2022-0 Yes 250mL 250 mL, IV Un nel 10% (D10W) 11-28 Infusion, ity of bolus 04:48: PRN - SEE [place] infusion 18 INSTRUCTIO Medic al 250 mL NS, Branch Administer over 60 Minutes, Other, If blood glucose is < or = 70 mg/dL and patient is unable to swallow or has mental status changes, Starting on Fri11/27/22 at 2348
If blood glucose is < or = 70 mg/dL and patient is unable to swallow or has mental status changes (Give glucagon order if patient needs fluid restrictio n): IF IV access available: Dextrose 10%. 1. 125 mL (? bag) of D10W IV infusion - equivalent to 12.5 g dextrose 2. Blood glucose - draw blood glucose 15 minutes after D10W Administra tion. 3. If blood glucose is < 80 mg/dL, repeat.
glucagon Yes 1mg 1 mg, Univers (GLUCAGEN 11-28 Intramuscu ity of DIAGNOSTIC 04:48: lar, PRN, [place] KIT) 09 Starting Medical injection 1 on Fri Branch mg 11/27/22 at 2348, Until Discontinu ed, JOEY, Blood Glucose < or = 70 mg/dL and patient is NPO, unable to swallow or has mental changes. nicotine 0 Yes 1{patch 1 Patch, Un nel (NICODERM) 11-28 } Topical, ity o f 7 mg/24 hr 03:30: Administer [place] patch 1 00 over 24 Medical Patch Hours, Branch Q24H, First dose on Fri11/27/22 at 2230, Until Discontinu ed, Routine ipratropium 0 Yes 3mL 3 mL, Unive rs -albuteroL 11-28 Inhalation ity of (DUONEB) 02:19: , QIDPRN, [place] 0.5 mg-3 00 Starting Medical mg(2.5 mg on Fri Branch base)/3 mL 11/27/22 at nebulizer 2119, solution 3 Until mL Discontinu ed, Routine, Wheezing, Shortness of Breath, Bronchospa sm, Chest tightness carisoprodo 2023-0 Yes 350mg 350 mg, Un nel L (SOMA) 11-28 Oral, TID, ity o f tablet 350 02:15: First dose [place] mg 00 on Fri [facility] 11/27/22 at Branch 2114, Until Discontinu ed, Routine atorvastati 0 Yes 10mg 10 mg, Univ ers n (LIPITOR) 11-28 Oral, QHS, it y of tablet 10 02:15: First dose [place] mg 00 on Fri [facility] 11/27/22 at Branch 2114, Until Discontinu ed, Routine amitriptyli Yes 100mg 100 mg, Un nel ne (ELAVIL) 11-28 Oral, QHS, it y of tablet 100 02:15: First dose [place] mg 00 on Fri [facility] 11/27/22 at Branch 2114, Until Discontinu ed, Routine budesonide- 2022-0 2023- No 2{puff} 2 Puff, Univers formoteroL 11-28 Inhalation it y of (SYMBICORT) 02:15: 12:09 , DAILY, [place] 160-4.5 00 :26 First dose Medica l mcg/actuati on Fri on inhaler 11/27/22 at 2 Puff 2114, Until Discontinu ed budesonide 2022- No .5mg 0.5 mg, Uni vers (PULMICORT 11-28 Inhalation it y of RESPULE) 02:15: 12:08 , BID, [place] nebulizer 00 :56 First dose Medi pablito solution on Fri 0.5 mg 11/27/22 at 2114, Until Discontinu ed, Routine HYDROcodone 0 Yes 1{tbl} 1 tablet, Univers -acetaminop 11-28 Oral, ity of hen (NORCO) 02:06: Q6HPRN, [place] as 10-325 mg 18 Starting Medica l tablet 1 on Fri [place] tablet 11/27/22 at 2105, Until Discontinu ed, Routine, Pain (scale 7-10) benzonatate 2022-0 Yes 100mg 100 mg, Un nel (TESSALON 11-28 Oral, ity of PERLES) 02:04: TIDPRN, [place] capsule 100 56 Starting Medi pablito mg on Fri11/27/22 at 2104, Until Discontinu ed, Routine, Cough levalbutero 0 2022- No 2.5mg 2.5 mg, U nivers l (XOPENEX) 11-28 Inhalation i ty of nebulizer 01:00: 12:10 , Q4H, [place] solution 00 :10 First dose Medic al 2.5 mg (after Branch last reorder) on Fri11/27/22 at 2000, Until Discontinu ed, Routine codeine-gua 0 Yes 10mL 10 mL, Univ ers ifenesin 11-28 Oral, ity of (ROBITUSSIN 00:27: Q6HPRN, [place] AC) 10-100 31 Starting Medic al mg/5 mL on Fri oral 11/27/22 at solution 10 1927, mL Until Discontinu ed, Routine, Cough enoxaparin 0 Yes 40mg 40 mg, Unive rs (LOVENOX) 11-27 Subcutaneo ity of injection 22:00: us, DAILY, [place] 40 mg 00 First dose Medical on Fri11/27/22 at 1700, Until Discontinu ed, Routine levalbutero 2022- No 3.75mg 3.75 mg, Univers l (XOPENEX) 11-27 Inhalation i ty of nebulizer 21:00: 20:15 , ONCE, 1 [place] solution 00 :00 dose, On Medical 3.75 mg Fri11/27/22 at 1600, Routine magnesium 0 2022- No 2g 2 g, IV Univ ers sulfate in 11-27 Piggyback, it y of water 2 21:00: 21:41 Administer [place] gram/50 mL 00 :00 over 60 Medica l (4 %) Minutes, Branch infusion 2 ONCE, 1 g dose, On Fri11/27/22 at 1600, Routine acetaminoph 2022-0 Yes 650mg 650 mg, Un nel en 11-27 Oral, ity of (TYLENOL) 20:51: Q6HPRN, [place] tablet 650 54 Starting Medic al mg on Fri Branch 11/27/22 at 1551, Until Discontinu ed, Routine, Pain (scale 1-3) ipratropium 0 2023- No .5mg 0.5 mg, Un nel (ATROVENT) 11-27 Inhalation it y of 0.02 % 20:00: 19:15 , ONCE, 1 [place] nebulizer 00 :00 dose, On Medica l solution [facility] Branch 0.5 mg 11/27/22 at 1500, JOEY levalbutero 2022-0 2022- No 2.5mg 2.5 mg, U nivers l (XOPENEX) 11-27 Inhalation i ty of nebulizer 20:00: 19:15 , ONCE, 1 [place] solution 00 :00 dose, On Medical 2.5 mg [facility] Branch 11/27/22 at 1500, Routine sodium 2022-0 Yes 4mL 4 mL, Univers chloride 7% 11-25 Inhalation it y of (HYPER-LI) 14:00: , DAILY, [place] nebulizer 00 First dose Medi pablito solution 4 on [facility] mL 11/25/22 at 0900, Until Discontinu ed, Routine guaiFENesin 2022-0 2022- No 400mg 400 mg, U nivers (FENESIN 11-24 Oral, ity of IR) tablet 22:15: 21:45 ONCE, 1 [place] 400 mg 00 :00 dose, On Medical [facility] 11/24/22 at 1715, JOEY albuterol 2022-0 2022- No 2.5mg 2.5 mg, Uni vers (PROVENTIL) 11-24 Inhalation i ty of 2.5 mg /3 22:00: 20:54 , ONCE, 1 [place] mL (0.083 00 :00 dose, On Medica l %) [facility] nebulizer 11/24/22 at solution 1700, STAT 2.5 mg albuterol 2022-0 Yes [id number] 2.5mg Inhale 0.5 Univers 2.5 mg/0.5 7-23 mL every 6 ity of mL 00:00: (six) [place] nebulizer 00 hours as Medica l solution needed for Branc h Wheezing. albuterol 3-0 Yes [id number] 2.5mg Inhale 0.5 Univers 2.5 mg/0.5 7-23 mL every 6 ity of mL 00:00: (six) [place] nebulizer 00 hours as Medica l solution needed for Branc h Wheezing. albuterol 3-0 Yes [id number] 2.5mg Inhale 0.5 Univers 2.5 mg/0.5 7-23 mL every 6 ity of mL 00:00: (six) [place] nebulizer 00 hours as Medica l solution needed for Branc h Wheezing. albuterol 2022-0 Yes [id number] 2.5mg Inhale 0.5 Univers 2.5 mg/0.5 7-23 mL every 6 ity of mL 00:00: (six) [place] nebulizer 00 hours as Medica l solution needed for Branc h Wheezing. albuterol 2022-0 Yes [id number] 2.5mg Inhale 0.5 Univers 2.5 mg/0.5 7-23 mL every 6 ity of mL 00:00: (six) [place] nebulizer 00 hours as Medica l solution needed for Branc h Wheezing. albuterol 2022-0 Yes [id number] 2.5mg Inhale 0.5 Univers 2.5 mg/0.5 7-23 mL every 6 ity of mL 00:00: (six) [place] nebulizer 00 hours as Medica l solution needed for Branc h Wheezing. albuterol 2022-0 Yes [id number] 2.5mg Inhale 0.5 Univers 2.5 mg/0.5 7-23 mL every 6 ity of mL 00:00: (six) [place] nebulizer 00 hours as Medica l solution needed for Branc h Wheezing. albuterol 2022-0 Yes [id number] 2.5mg Inhale 0.5 Univers 2.5 mg/0.5 7-23 mL every 6 ity of mL 00:00: (six) [place] nebulizer 00 hours as Medica l solution needed for Branc h Wheezing. albuterol 3-0 Yes [id number] 2.5mg Inhale 0.5 Univers 2.5 mg/0.5 7-23 mL every 6 ity of mL 00:00: (six) [place] nebulizer 00 hours as Medica l solution needed for Branc h Wheezing. albuterol 3-0 Yes [id number] 2.5mg Inhale 0.5 Univers 2.5 mg/0.5 7-23 mL every 6 ity of mL 00:00: (six) [place] nebulizer 00 hours as Medica l solution needed for Branc h Wheezing. albuterol 2022-0 Yes [id number] 2.5mg Inhale 0.5 Univers 2.5 mg/0.5 7-23 mL every 6 ity of mL 00:00: (six) [place] nebulizer 00 hours as Medica l solution needed for Branc h Wheezing. albuterol 2022-0 Yes [id number] 2.5mg Inhale 0.5 Univers 2.5 mg/0.5 7-23 mL every 6 ity of mL 00:00: (six) [place] nebulizer 00 hours as Medica l solution needed for Branc h Wheezing. albuterol 2022-0 Yes [id number] 2.5mg Inhale 0.5 Univers 2.5 mg/0.5 7-23 mL every 6 ity of mL 00:00: (six) [place] nebulizer 00 hours as Medica l solution needed for Branc h Wheezing. albuterol 2022-0 Yes [id number] 2.5mg Inhale 0.5 Univers 2.5 mg/0.5 7-23 mL every 6 ity of mL 00:00: (six) [place] nebulizer 00 hours as Medica l solution needed for Branc h Wheezing. albuterol 2022-0 Yes [id number] 2.5mg Inhale 0.5 Univers 2.5 mg/0.5 7-23 mL every 6 ity of mL 00:00: (six) [place] nebulizer 00 hours as Medica l solution needed for Branc h Wheezing. albuterol 2022-0 Yes [id number] 2.5mg Inhale 0.5 Univers 2.5 mg/0.5 7-23 mL every 6 ity of mL 00:00: (six) [place] nebulizer 00 hours as Medica l solution needed for Branc h Wheezing. albuterol 2022-0 Yes [id number] 2.5mg Inhale 0.5 Univers 2.5 mg/0.5 7-23 mL every 6 ity of mL 00:00: (six) [place] nebulizer 00 hours as Medica l solution needed for Branc h Wheezing. albuterol 3-0 Yes [id number] 2.5mg Inhale 0.5 Univers 2.5 mg/0.5 7-23 mL every 6 ity of mL 00:00: (six) [place] nebulizer 00 hours as Medica l solution needed for Branc h Wheezing. albuterol 2022-0 Yes [id number] 2.5mg Inhale 0.5 Univers 2.5 mg/0.5 7-23 mL every 6 ity of mL 00:00: (six) [place] nebulizer 00 hours as Medica l solution needed for Branc h Wheezing. albuterol 2022-0 Yes [id number] 2.5mg Inhale 0.5 Univers 2.5 mg/0.5 7-23 mL every 6 ity of mL 00:00: (six) [place] nebulizer 00 hours as Medica l solution needed for Branc h Wheezing. albuterol 2022-0 Yes [id number] 2.5mg Inhale 0.5 Univers 2.5 mg/0.5 7-23 mL every 6 ity of mL 00:00: (six) [place] nebulizer 00 hours as Medica l solution needed for Branc h Wheezing. albuterol 2022-0 Yes [id number] 2.5mg Inhale 0.5 Univers 2.5 mg/0.5 7-23 mL every 6 ity of mL 00:00: (six) [place] nebulizer 00 hours as Medica l solution needed for Branc h Wheezing. albuterol 2022-0 Yes [id number] 2.5mg Inhale 0.5 Univers 2.5 mg/0.5 7-23 mL every 6 ity of mL 00:00: (six) [place] nebulizer 00 hours as Medica l solution needed for Branc h Wheezing. albuterol 2022-0 Yes [id number] 2.5mg Inhale 0.5 Univers 2.5 mg/0.5 7-23 mL every 6 ity of mL 00:00: (six) [place] nebulizer 00 hours as Medica l solution needed for Branc h Wheezing. albuterol 2022-0 Yes [id number] 2.5mg Inhale 0.5 Univers 2.5 mg/0.5 7-23 mL every 6 ity of mL 00:00: (six) [place] nebulizer 00 hours as Medica l solution needed for Branc h Wheezing. albuterol 2022-0 Yes [id number] 2.5mg Inhale 0.5 Univers 2.5 mg/0.5 7-23 mL every 6 ity of mL 00:00: (six) [place] nebulizer 00 hours as Medica l solution needed for Branc h Wheezing. albuterol 2022-0 Yes [id number] 2.5mg Inhale 0.5 Univers 2.5 mg/0.5 7-23 mL every 6 ity of mL 00:00: (six) [place] nebulizer 00 hours as Medica l solution needed for Branc h Wheezing. albuterol 2022-0 Yes [id number] 2.5mg Inhale 0.5 Univers 2.5 mg/0.5 7-23 mL every 6 ity of mL 00:00: (six) [place] nebulizer 00 hours as Medica l solution needed for Branc h Wheezing. albuterol 2022-0 Yes [id number] 2.5mg Inhale 0.5 Univers 2.5 mg/0.5 7-23 mL every 6 ity of mL 00:00: (six) [place] nebulizer 00 hours as Medica l solution needed for Branc h Wheezing. albuterol 2022-0 Yes [id number] 2.5mg Inhale 0.5 Univers 2.5 mg/0.5 7-23 mL every 6 ity of mL 00:00: (six) [place] nebulizer 00 hours as Medica l solution needed for Branc h Wheezing. albuterol 2022-0 Yes [id number] 2.5mg Inhale 0.5 Univers 2.5 mg/0.5 7-23 mL every 6 ity of mL 00:00: (six) [place] nebulizer 00 hours as Medica l solution needed for Branc h Wheezing. albuterol 2022-0 Yes [id number] 2.5mg Inhale 0.5 Univers 2.5 mg/0.5 7-23 mL every 6 ity of mL 00:00: (six) [place] nebulizer 00 hours as Medica l solution needed for Branc h Wheezing. albuterol 2022-0 Yes [id number] 2.5mg Inhale 0.5 Univers 2.5 mg/0.5 7-23 mL every 6 ity of mL 00:00: (six) [place] nebulizer 00 hours as Medica l solution needed for Branc h Wheezing. albuterol 2022-0 Yes [id number] 2.5mg Inhale 0.5 Univers 2.5 mg/0.5 7-23 mL every 6 ity of mL 00:00: (six) [place] nebulizer 00 hours as Medica l solution needed for Branc h Wheezing. albuterol 2022-0 Yes [id number] 2.5mg Inhale 0.5 Univers 2.5 mg/0.5 7-23 mL every 6 ity of mL 00:00: (six) [place] nebulizer 00 hours as Medica l solution needed for Branc h Wheezing. albuterol 2022-0 Yes [id number] 2.5mg Inhale 0.5 Univers 2.5 mg/0.5 7-23 mL every 6 ity of mL 00:00: (six) [place] nebulizer 00 hours as Medica l solution needed for Branc h Wheezing. albuterol 2022-0 Yes [id number] 2.5mg Inhale 0.5 Univers 2.5 mg/0.5 7-23 mL every 6 ity of mL 00:00: (six) [place] nebulizer 00 hours as Medica l solution needed for Branc h Wheezing. albuterol 2022-0 Yes [id number] 2.5mg Inhale 0.5 Univers 2.5 mg/0.5 7-23 mL every 6 ity of mL 00:00: (six) [place] nebulizer 00 hours as Medica l solution needed for Branc h Wheezing. albuterol 2022-0 Yes [id number] 2.5mg Inhale 0.5 Univers 2.5 mg/0.5 7-23 mL every 6 ity of mL 00:00: (six) [place] nebulizer 00 hours as Medica l solution needed for Branc h Wheezing. albuterol 2022-0 Yes [id number] 2.5mg Inhale 0.5 Univers 2.5 mg/0.5 7-23 mL every 6 ity of mL 00:00: (six) [place] nebulizer 00 hours as Medica l solution needed for Branc h Wheezing. albuterol 2022-0 Yes [id number] 2.5mg Inhale 0.5 [facility] 2.5 mg/0.5 7-23 mL every 6 ity of mL 00:00: (six) [place] nebulizer 00 hours as Medica l solution needed for Branc h Wheezing. albuterol 2023-0 Yes [id number] 2.5mg Inhale 0.5 [facility] 2.5 mg/0.5 7-23 mL every 6 ity of mL 00:00: (six) [place] nebulizer 00 hours as Medica l solution needed for Branc h Wheezing. albuterol 3-0 Yes [id number] 2.5mg Inhale 0.5 [facility] 2.5 mg/0.5 7-23 mL every 6 ity of mL 00:00: (six) [place] nebulizer 00 hours as Medica l solution needed for Branc h Wheezing. albuterol 3-0 Yes [id number] 2.5mg Inhale 0.5 [facility] 2.5 mg/0.5 7-23 mL every 6 ity of mL 00:00: (six) [place] nebulizer 00 hours as Medica l solution needed for Branc h Wheezing. albuterol 2022-0 Yes [id number] 2.5mg Inhale 0.5 [facility] 2.5 mg/0.5 7-23 mL every 6 ity of mL 00:00: (six) [place] nebulizer 00 hours as Medica l solution needed for Branc h Wheezing. albuterol 2022-0 Yes [id number] 2.5mg Inhale 0.5 [facility] 2.5 mg/0.5 7-23 mL every 6 ity of mL 00:00: (six) [place] nebulizer 00 hours as Medica l solution needed for Branc h Wheezing. albuterol 2022-0 Yes [id number] 2.5mg Inhale 0.5 [facility] 2.5 mg/0.5 7-23 mL every 6 ity of mL 00:00: (six) [place] nebulizer 00 hours as Medica l solution needed for Branc h Wheezing. albuterol 3-0 Yes [id number] 2.5mg Inhale 0.5 [facility] 2.5 mg/0.5 7-23 mL every 6 ity of mL 00:00: (six) [place] nebulizer 00 hours as Medica l solution needed for Branc h Wheezing. albuterol 3-0 Yes [id number] 2.5mg Inhale 0.5 [facility] 2.5 mg/0.5 7-23 mL every 6 ity of mL 00:00: (six) [place] nebulizer 00 hours as Medica l solution needed for Branc h Wheezing. albuterol 3-0 Yes [id number] 2.5mg Inhale 0.5 [facility] 2.5 mg/0.5 7-23 mL every 6 ity of mL 00:00: (six) [place] nebulizer 00 hours as Medica l solution needed for Branc h Wheezing. albuterol 2022-0 Yes [id number] 2.5mg Inhale 0.5 [facility] 2.5 mg/0.5 7-23 mL every 6 ity of mL 00:00: (six) [place] nebulizer 00 hours as Medica l solution needed for Branc h Wheezing. albuterol 2022-0 Yes [id number] 2.5mg Inhale 0.5 [facility] 2.5 mg/0.5 7-23 mL every 6 ity of mL 00:00: (six) [place] nebulizer 00 hours as Medica l solution needed for Branc h Wheezing. albuterol 2022-0 Yes [id number] 2.5mg Inhale 0.5 [facility] 2.5 mg/0.5 7-23 mL every 6 ity of mL 00:00: (six) [place] nebulizer 00 hours as Medica l solution needed for Branc h Wheezing. albuterol 2022-0 Yes [id number] 2.5mg Inhale 0.5 [facility] 2.5 mg/0.5 7-23 mL every 6 ity of mL 00:00: (six) [place] nebulizer 00 hours as Medica l solution needed for Branc h Wheezing. albuterol 2022-0 Yes [id number] 2.5mg Inhale 0.5 [facility] 2.5 mg/0.5 7-23 mL every 6 ity of mL 00:00: (six) [place] nebulizer 00 hours as Medica l solution needed for Branc h Wheezing. albuterol 3-0 Yes [id number] 2.5mg Inhale 0.5 [facility] 2.5 mg/0.5 7-23 mL every 6 ity of mL 00:00: (six) [place] nebulizer 00 hours as Medica l solution needed for Branc h Wheezing. albuterol 3-0 Yes [id number] 2.5mg Inhale 0.5 [facility] 2.5 mg/0.5 7-23 mL every 6 ity of mL 00:00: (six) [place] nebulizer 00 hours as Medica l solution needed for Branc h Wheezing. albuterol 2022-0 Yes [id number] 2.5mg Inhale 0.5 [facility] 2.5 mg/0.5 7-23 mL every 6 ity of mL 00:00: (six) [place] nebulizer 00 hours as Medica l solution needed for Branc h Wheezing. albuterol 2022-0 Yes [id number] 2.5mg Inhale 0.5 [facility] 2.5 mg/0.5 7-23 mL every 6 ity of mL 00:00: (six) [place] nebulizer 00 hours as Medica l solution needed for Branc h Wheezing. albuterol 2022-0 Yes [id number] 2.5mg Inhale 0.5 [facility] 2.5 mg/0.5 7-23 mL every 6 ity of mL 00:00: (six) [place] nebulizer 00 hours as Medica l solution needed for Branc h Wheezing. albuterol 2022-0 Yes [id number] 2.5mg Inhale 0.5 [facility] 2.5 mg/0.5 7-23 mL every 6 ity of mL 00:00: (six) [place] nebulizer 00 hours as Medica l solution needed for Branc h Wheezing. albuterol 2022-0 Yes [id number] 2.5mg Inhale 0.5 [facility] 2.5 mg/0.5 7-23 mL every 6 ity of mL 00:00: (six) [place] nebulizer 00 hours as Medica l solution needed for Branc h Wheezing. albuterol 2022-0 Yes [id number] 2.5mg Inhale 0.5 [facility] 2.5 mg/0.5 7-23 mL every 6 ity of mL 00:00: (six) [place] nebulizer 00 hours as Medica l solution needed for Branc h Wheezing. albuterol 2022-0 Yes [id number] 2.5mg Inhale 0.5 [facility] 2.5 mg/0.5 7-23 mL every 6 ity of mL 00:00: (six) [place] nebulizer 00 hours as Medica l solution needed for Branc h Wheezing. albuterol 2022-0 Yes [id number] 2.5mg Inhale 0.5 [facility] 2.5 mg/0.5 7-23 mL every 6 ity of mL 00:00: (six) [place] nebulizer 00 hours as Medica l solution needed for Branc h Wheezing. albuterol 2022-0 Yes [id number] 2.5mg Inhale 0.5 [facility] 2.5 mg/0.5 7-23 mL every 6 ity of mL 00:00: (six) [place] nebulizer 00 hours as Medica l solution needed for Branc h Wheezing. albuterol 2022-0 Yes [id number] 2.5mg Inhale 0.5 [facility] 2.5 mg/0.5 7-23 mL every 6 ity of mL 00:00: (six) [place] nebulizer 00 hours as Medica l solution needed for Branc h Wheezing. albuterol 2022-0 Yes [id number] 2.5mg Inhale 0.5 [facility] 2.5 mg/0.5 7-23 mL every 6 ity of mL 00:00: (six) [place] nebulizer 00 hours as Medica l solution needed for Branc h Wheezing. albuterol 2022-0 Yes [id number] 2.5mg Inhale 0.5 [facility] 2.5 mg/0.5 7-23 mL every 6 ity of mL 00:00: (six) [place] nebulizer 00 hours as Medica l solution needed for Branc h Wheezing. albuterol 2022-0 Yes [id number] 2.5mg Inhale 0.5 [facility] 2.5 mg/0.5 7-23 mL every 6 ity of mL 00:00: (six) [place] nebulizer 00 hours as Medica l solution needed for Branc h Wheezing. albuterol 2022-0 Yes [id number] 2.5mg Inhale 0.5 [facility] 2.5 mg/0.5 7-23 mL every 6 ity of mL 00:00: (six) [place] nebulizer 00 hours as Medica l solution needed for Branc h Wheezing. albuterol 2022-0 2022- No [id number] 2.5mg Inhale 0.5 [facility] 2.5 mg/0.5 7-23 11-03 mL every 6 it y of mL 00:00: 00:00 (six) [place] nebulizer 00 :00 hours as Medica l solution needed for Branc h Wheezing. albuterol 0 2022- No [id number] 2.5mg Inhale 0.5 [facility] 2.5 mg/0.5 7-23 11-03 mL every 6 it y of mL 00:00: 00:00 (six) [place] nebulizer 00 :00 hours as Medica l solution needed for Branc h Wheezing. albuterol 2022-0 2022- No [id number] 2.5mg Inhale 0.5 [facility] 2.5 mg/0.5 7-23 11-03 mL every 6 it y of mL 00:00: 00:00 (six) [place] nebulizer 00 :00 hours as Medica l solution needed for Branc h Wheezing. benzonatate 2022- No 100mg 100 mg, U nivers (TESSALON 11-22 07-20 Oral, ity of PERLES) 00:00: 23:13 ONCE, 1 [place] capsule 100 00 :00 dose, On Medi pablito mg [place] [facility] 11/21/22 at 1900, Routine benzonatate 2022-0 Yes [id number] 100mg Take 1 [facility] 100 mg 7-20 capsule by ity of capsule 00:00: mouth 3 [place] [address] (three) Medical times Branch daily as needed for Cough. benzonatate 2022-0 Yes [id number] 100mg Take 1 [facility] 100 mg 7-20 capsule by ity of capsule 00:00: mouth 3 [place] (three) Medical times Branch daily as needed for Cough. benzonatate 2022-0 Yes [id number] 100mg Take 1 [facility] 100 mg 7-20 capsule by ity of capsule 00:00: mouth 3 [place] (three) Medical times Branch daily as needed for Cough. benzonatate 2022-0 Yes [id number] 100mg Take 1 [facility] 100 mg 7-20 capsule by ity of capsule 00:00: mouth 3 [place] (three) Medical times Branch daily as needed for Cough. albuterol 2022-0 Yes [id number] 2.5mg Inhale 0.5 [facility] 2.5 mg/0.5 7-20 mL every 6 ity of mL 00:00: (six) [place] nebulizer 00 hours as Medica l solution needed for Branc h Wheezing. albuterol 2022-0 Yes [id number] 2.5mg Inhale 0.5 [facility] 2.5 mg/0.5 7-20 mL every 6 ity of mL 00:00: (six) [place] nebulizer 00 hours as Medica l solution needed for Branc h Wheezing. benzonatate 2023-0 Yes [id number] 100mg Take 1 [facility] 100 mg 7-20 capsule by ity of capsule 00:00: mouth 3 [place] (three) Medical times Branch daily as needed for Cough. benzonatate 2023-0 Yes [id number] 100mg Take 1 [facility] 100 mg 7-20 capsule by ity of capsule 00:00: mouth [place] (three) Medical times Branch daily as needed for Cough. benzonatate 2023-0 Yes [id number] 100mg Take 1 [facility] 100 mg 7-20 capsule by ity of capsule 00:00: mouth [place] (three) Medical times Branch daily as needed for Cough. benzonatate 2023-0 Yes [id number] 100mg Take 1 [facility] 100 mg 7-20 capsule by ity of capsule 00:00: mouth [place] (three) Medical times Branch daily as needed for Cough. benzonatate 2023-0 Yes [id number] 100mg Take 1 [facility] 100 mg 7-20 capsule by ity of capsule 00:00: mouth [place] (three) Medical times Branch daily as needed for Cough. benzonatate 2023-0 Yes [id number] 100mg Take 1 [facility] 100 mg 7-20 capsule by ity of capsule 00:00: mouth [place] (three) Medical times Branch daily as needed for Cough. benzonatate 2023-0 Yes [id number] 100mg Take 1 [facility] 100 mg 7-20 capsule by ity of capsule 00:00: mouth [place] (three) Medical times Branch daily as needed for Cough. benzonatate 2023-0 Yes [id number] 100mg Take 1 [facility] 100 mg 7-20 capsule by ity of capsule 00:00: mouth [place] (three) Medical times Branch daily as needed for Cough. benzonatate 2023-0 Yes [id number] 100mg Take 1 [facility] 100 mg 7-20 capsule by ity of capsule 00:00: mouth 3 [place] (three) Medical times Branch daily as needed for Cough. benzonatate 2023-0 Yes [id number] 100mg Take 1 [facility] 100 mg 7-20 capsule by ity of capsule 00:00: mouth [place] (three) Medical times Branch daily as needed for Cough. benzonatate 2023-0 Yes [id number] 100mg Take 1 [facility] 100 mg 7-20 capsule by ity of capsule 00:00: mouth (three) Medical times Branch daily as needed for Cough. benzonatate 2023-0 Yes [id number] 100mg Take 1 [facility] 100 mg 7-20 capsule by ity of capsule 00:00: mouth (three) Medical times Branch daily as needed for Cough. benzonatate 2023-0 Yes [id number] 100mg Take 1 [facility] 100 mg 7-20 capsule by ity of capsule 00:00: mouth (three) Medical times Branch daily as needed for Cough. benzonatate 2023-0 Yes [id number] 100mg Take 1 [facility] 100 mg 7-20 capsule by ity of capsule 00:00: mouth (three) Medical times Branch daily as needed for Cough. benzonatate 2023-0 Yes [id number] 100mg Take 1 [facility] 100 mg 7-20 capsule by ity of capsule 00:00: mouth (three) Medical times Branch daily as needed for Cough. benzonatate 2023-0 Yes [id number] 100mg Take 1 [facility] 100 mg 7-20 capsule by ity of capsule 00:00: mouth (three) Medical times Branch daily as needed for Cough. benzonatate 2023-0 Yes [id number] 100mg Take 1 [facility] 100 mg 7-20 capsule by ity of capsule 00:00: mouth (three) Medical times Branch daily as needed for Cough. benzonatate 2023-0 Yes [id number] 100mg Take 1 [facility] 100 mg 7-20 capsule by ity of capsule 00:00: mouth (three) Medical times Branch daily as needed for Cough. benzonatate 2023-0 Yes [id number] 100mg Take 1 [facility] 100 mg 7-20 capsule by ity of capsule 00:00: mouth (three) Medical times Branch daily as needed for Cough. benzonatate 2023-0 Yes [id number] 100mg Take 1 [facility] 100 mg 7-20 capsule by ity of capsule 00:00: mouth (three) Medical times Branch daily as needed for Cough. benzonatate 2023-0 Yes [id number] 100mg Take 1 [facility] 100 mg 7-20 capsule by ity of capsule 00:00: mouth 3 [place] 00 (three) Medical times Branch daily as needed for Cough. benzonatate 2023-0 Yes [id number] 100mg Take 1 [facility] 100 mg 7-20 capsule by ity of capsule 00:00: mouth (three) Medical times Branch daily as needed for Cough. benzonatate 2023-0 Yes [id number] 100mg Take 1 [facility] 100 mg 7-20 capsule by ity of capsule 00:00: mouth (three) Medical times Branch daily as needed for Cough. benzonatate 2023-0 Yes [id number] 100mg Take 1 [facility] 100 mg 7-20 capsule by ity of capsule 00:00: mouth (three) Medical times Branch daily as needed for Cough. benzonatate 2023-0 Yes [id number] 100mg Take 1 [facility] 100 mg 7-20 capsule by ity of capsule 00:00: mouth (three) Medical times Branch daily as needed for Cough. benzonatate 2023-0 Yes [id number] 100mg Take 1 [facility] 100 mg 7-20 capsule by ity of capsule 00:00: mouth (three) Medical times Branch daily as needed for Cough. benzonatate 2023-0 Yes [id number] 100mg Take 1 [facility] 100 mg 7-20 capsule by ity of capsule 00:00: mouth (three) Medical times Branch daily as needed for Cough. benzonatate 2023-0 Yes [id number] 100mg Take 1 [facility] 100 mg 7-20 capsule by ity of capsule 00:00: mouth (three) Medical times Branch daily as needed for Cough. benzonatate 2023-0 Yes [id number] 100mg Take 1 [facility] 100 mg 7-20 capsule by ity of capsule 00:00: mouth (three) Medical times Branch daily as needed for Cough. benzonatate 2023-0 Yes [id number] 100mg Take 1 [facility] 100 mg 7-20 capsule by ity of capsule 00:00: mouth (three) Medical times Branch daily as needed for Cough. benzonatate 2023-0 Yes [id number] 100mg Take 1 [facility] 100 mg 7-20 capsule by ity of capsule 00:00: mouth (three) Medical times Branch daily as needed for Cough. benzonatate 2023-0 Yes [id number] 100mg Take 1 [facility] 100 mg 7-20 capsule by ity of capsule 00:00: mouth (three) Medical times Branch daily as needed for Cough. benzonatate 2023-0 Yes [id number] 100mg Take 1 [facility] 100 mg 7-20 capsule by ity of capsule 00:00: mouth (three) Medical times Branch daily as needed for Cough. benzonatate 2023-0 Yes [id number] 100mg Take 1 [facility] 100 mg 7-20 capsule by ity of capsule 00:00: mouth (three) Medical times Branch daily as needed for Cough. benzonatate 2023-0 Yes [id number] 100mg Take 1 [facility] 100 mg 7-20 capsule by ity of capsule 00:00: mouth (three) Medical times Branch daily as needed for Cough. benzonatate 2023-0 Yes [id number] 100mg Take 1 [facility] 100 mg 7-20 capsule by ity of capsule 00:00: mouth (three) Medical times Branch daily as needed for Cough. benzonatate 2023-0 Yes [id number] 100mg Take 1 [facility] 100 mg 7-20 capsule by ity of capsule 00:00: mouth (three) Medical times Branch daily as needed for Cough. benzonatate 2023-0 Yes [id number] 100mg Take 1 [facility] 100 mg 7-20 capsule by ity of capsule 00:00: mouth (three) Medical times Branch daily as needed for Cough. benzonatate 2023-0 Yes [id number] 100mg Take 1 [facility] 100 mg 7-20 capsule by ity of capsule 00:00: mouth (three) Medical times Branch daily as needed for Cough. benzonatate 2023-0 Yes [id number] 100mg Take 1 [facility] 100 mg 7-20 capsule by ity of capsule 00:00: mouth (three) Medical times Branch daily as needed for Cough. benzonatate 2023-0 Yes [id number] 100mg Take 1 [facility] 100 mg 7-20 capsule by ity of capsule 00:00: mouth (three) Medical times Branch daily as needed for Cough. benzonatate 2023-0 Yes [id number] 100mg Take 1 [facility] 100 mg 7-20 capsule by ity of capsule 00:00: mouth (three) Medical times Branch daily as needed for Cough. benzonatate 2023-0 Yes [id number] 100mg Take 1 [facility] 100 mg 7-20 capsule by ity of capsule 00:00: mouth (three) Medical times Branch daily as needed for Cough. benzonatate 2023-0 Yes [id number] 100mg Take 1 [facility] 100 mg 7-20 capsule by ity of capsule 00:00: mouth (three) Medical times Branch daily as needed for Cough. benzonatate 2023-0 Yes [id number] 100mg Take 1 [facility] 100 mg 7-20 capsule by ity of capsule 00:00: mouth (three) Medical times Branch daily as needed for Cough. benzonatate 2023-0 Yes [id number] 100mg Take 1 [facility] 100 mg 7-20 capsule by ity of capsule 00:00: mouth (three) Medical times Branch daily as needed for Cough. benzonatate 2023-0 Yes [id number] 100mg Take 1 [facility] 100 mg 7-20 capsule by ity of capsule 00:00: mouth (three) Medical times Branch daily as needed for Cough. benzonatate 2023-0 Yes [id number] 100mg Take 1 [facility] 100 mg 7-20 capsule by ity of capsule 00:00: mouth (three) Medical times Branch daily as needed for Cough. benzonatate 2023-0 Yes [id number] 100mg Take 1 [facility] 100 mg 7-20 capsule by ity of capsule 00:00: mouth (three) Medical times Branch daily as needed for Cough. benzonatate 2023-0 Yes [id number] 100mg Take 1 [facility] 100 mg 7-20 capsule by ity of capsule 00:00: mouth (three) Medical times Branch daily as needed for Cough. benzonatate 2023-0 Yes [id number] 100mg Take 1 [facility] 100 mg 7-20 capsule by ity of capsule 00:00: mouth (three) Medical times Branch daily as needed for Cough. benzonatate 2023-0 Yes [id number] 100mg Take 1 [facility] 100 mg 7-20 capsule by ity of capsule 00:00: mouth (three) Medical times Branch daily as needed for Cough. benzonatate 2023-0 Yes [id number] 100mg Take 1 [facility] 100 mg 7-20 capsule by ity of capsule 00:00: mouth (three) Medical times Branch daily as needed for Cough. benzonatate 2023-0 Yes [id number] 100mg Take 1 [facility] 100 mg 7-20 capsule by ity of capsule 00:00: mouth (three) Medical times Branch daily as needed for Cough. benzonatate 2023-0 Yes [id number] 100mg Take 1 [facility] 100 mg 7-20 capsule by ity of capsule 00:00: mouth (three) Medical times Branch daily as needed for Cough. benzonatate 2023-0 Yes [id number] 100mg Take 1 [facility] 100 mg 7-20 capsule by ity of capsule 00:00: mouth (three) Medical times Branch daily as needed for Cough. benzonatate 2023-0 Yes [id number] 100mg Take 1 [facility] 100 mg 7-20 capsule by ity of capsule 00:00: mouth (three) Medical times Branch daily as needed for Cough. benzonatate 2023-0 Yes [id number] 100mg Take 1 [facility] 100 mg 7-20 capsule by ity of capsule 00:00: mouth (three) Medical times Branch daily as needed for Cough. benzonatate 2023-0 Yes [id number] 100mg Take 1 [facility] 100 mg 7-20 capsule by ity of capsule 00:00: mouth () Medical times Branch daily as needed for Cough. benzonatate 2023-0 Yes [id number] 100mg Take 1 [facility] 100 mg 7-20 capsule by ity of capsule 00:00: mouth (three) Medical times Branch daily as needed for Cough. benzonatate 2023-0 Yes [id number] 100mg Take 1 [facility] 100 mg 7-20 capsule by ity of capsule 00:00: mouth (three) Medical times Branch daily as needed for Cough. benzonatate 2023-0 Yes [id number] 100mg Take 1 [facility] 100 mg 7-20 capsule by ity of capsule 00:00: mouth (three) Medical times Branch daily as needed for Cough. benzonatate 2023-0 Yes [id number] 100mg Take 1 [facility] 100 mg 7-20 capsule by ity of capsule 00:00: mouth (three) Medical times Branch daily as needed for Cough. benzonatate 2023-0 Yes [id number] 100mg Take 1 [facility] 100 mg 7-20 capsule by ity of capsule 00:00: mouth 3 [place] 00 (three) Medical times Branch daily as needed for Cough. benzonatate 3-0 Yes [id number] 100mg Take 1 [facility] 100 mg 7-20 capsule by ity of capsule 00:00: mouth 3 [place] 00 (three) Medical times Branch daily as needed for Cough. benzonatate 3-0 Yes [id number] 100mg Take 1 [facility] 100 mg 7-20 capsule by ity of capsule 00:00: mouth 3 [place] 00 (three) Medical times Branch daily as needed for Cough. benzonatate 2022-0 Yes [id number] 100mg Take 1 [facility] 100 mg 7-20 capsule by ity of capsule 00:00: mouth 3 [place] 00 (three) Medical times Branch daily as needed for Cough. benzonatate 2022-0 Yes [id number] 100mg Take 1 [facility] 100 mg 7-20 capsule by ity of capsule 00:00: mouth [address] [place] [address] (three) Medical times Branch daily as needed for Cough. benzonatate 2022-0 Yes [id number] 100mg Take 1 [facility] 100 mg 7-20 capsule by ity of capsule 00:00: mouth 3 [place] 00 (three) Medical times Branch daily as needed for Cough. benzonatate 2022-0 3- No [id number] 100mg Take 1 [facility] 100 mg 7-20 11-03 capsule by ity of capsule 00:00: 00:00 mouth 3 [place] 00 :00 (three) Medical times Branch daily as needed for Cough. benzonatate 2022-0 3- No [id number] 100mg Take 1 [facility] 100 mg 7-20 11-03 capsule by ity of capsule 00:00: 00:00 mouth 3 [place] 00 :00 (three) Medical times Branch daily as needed for Cough. benzonatate 3-0 3- No [id number] 100mg Take 1 [facility] 100 mg 7-20 11-03 capsule by ity of capsule 00:00: 00:00 mouth 3 [place] 00 :00 (three) Medical times Branch daily as needed for Cough. albuterol 2022-0 3- No [id number] 2.5mg Inhale 0.5 [facility] 2.5 mg/0.5 7-20 07-23 mL every 6 it y of mL 00:00: 00:00 (six) [place] nebulizer 00 :00 hours as Medica l solution needed for Branc h Wheezing. furosemide 3-0 2023- No 40mg Take 1 [facility] ers 40 mg 7-18 07-18 tablet by ity of tablet 15:23: 00:00 mouth [place] 14 :00 daily as Medical needed. Branch PRN edema furosemide 2023-0 2023- No 40mg Take 1 [facility] ers 40 mg 7-18 07-18 tablet by it[facility] of tablet 15:23: 00:00 mouth [place] 14 :00 daily as Medical needed. Branch PRN edema HYDROcodone 2023-0 Yes 1{tbl} Take 1 [facility] -acetaminop 7-18 tablet by ity of hen 10-325 14:49: mouth [place] mg tablet 29 every 6 Medical (six) Branch hours as needed for Pain (scale 7-10). carisoprodo 2023-0 Yes 350mg Take 1 [facility] vers L 350 mg 7-18 tablet by ity of tablet 14:49: mouth in [place] [address] the Medical morning Branch and 1 tablet at noon and 1 tablet in the evening. HYDROcodone 2023-0 Yes 1{tbl} Take 1 [facility] nel -acetaminop 7-18 tablet by ity of hen 10-325 14:49: mouth [place] mg tablet 29 every 6 Medical (six) Branch hours as needed for Pain (scale 7-10). carisoprodo 2023-0 Yes 350mg Take 1 [facility] vers L 350 mg 7-18 tablet by ity of tablet 14:49: mouth in [place] [address] the Medical morning Branch and 1 tablet at noon and 1 tablet in the evening. HYDROcodone 2023-0 Yes 1{tbl} Take 1 [facility] nel -acetaminop 7-18 tablet by ity of hen 10-325 14:49: mouth [place] mg tablet 29 every 6 Medical (six) Branch hours as needed for Pain (scale 7-10). carisoprodo 2023-0 Yes 350mg Take 1 [facility] vers L 350 mg 7-18 tablet by ity of tablet 14:49: mouth in [place] [address] the Medical morning Branch and 1 tablet at noon and 1 tablet in the evening. HYDROcodone 2023-0 Yes 1{tbl} Take 1 [facility] nel -acetaminop 7-18 tablet by ity of hen 10-325 14:49: mouth [place] mg tablet 29 every 6 Medical (six) Branch hours as needed for Pain (scale 7-10). carisoprodo 2023-0 Yes 350mg Take 1 [facility] vers L 350 mg 7-18 tablet by ity of tablet 14:49: mouth in [place] [address] the Medical morning Branch and 1 tablet at noon and 1 tablet in the evening. HYDROcodone 2023-0 Yes 1{tbl} Take 1 [facility] nle -acetaminop 7-18 tablet by ity of hen 10-325 14:49: mouth [place] mg tablet 29 every 6 Medical (six) Branch hours as needed for Pain (scale 7-10). carisoprodo 2023-0 Yes 350mg Take 1 [facility] vers L 350 mg 7-18 tablet by ity of tablet 14:49: mouth in [place] [address] the Medical morning Branch and 1 tablet at noon and 1 tablet in the evening. HYDROcodone 2023-0 Yes 1{tbl} Take 1 [facility] nel -acetaminop 7-18 tablet by ity of hen 10-325 14:49: mouth [place] mg tablet 29 every 6 Medical (six) Branch hours as needed for Pain (scale 7-10). carisoprodo 2023-0 Yes 350mg Take 1 [facility] vers L 350 mg 7-18 tablet by ity of tablet 14:49: mouth in [place] [address] the Medical morning Branch and 1 tablet at noon and 1 tablet in the evening. HYDROcodone 2023-0 Yes 1{tbl} Take 1 [facility] nel -acetaminop 7-18 tablet by ity of hen 10-325 14:49: mouth [place] mg tablet 29 every 6 Medical (six) Branch hours as needed for Pain (scale 7-10). carisoprodo 2023-0 Yes 350mg Take 1 [facility] vers L 350 mg 7-18 tablet by ity of tablet 14:49: mouth in [place] [address] the Medical morning Branch and 1 tablet at noon and 1 tablet in the evening. albuterol 2023-0 Yes [id number] 2{puff} Inhale 2 [facility] 90 7-18 Puffs ity of mcg/actuati 00:00: every 4 [place] as on inhaler 00 (four) Medical hours as Branch needed for Wheezing or Shortness of Breath. albuterol 2023-0 Yes [id number] 2.5mg Inhale 0.5 [facility] 2.5 mg/0.5 7-18 mL every 6 ity of mL 00:00: (six) [place] nebulizer 00 hours as Medica l solution needed for Branc h Wheezing. doxycycline 2022-0 Yes [id number] 100mg Take 1 [facility] hyclate 100 7-18 tablet by [facility]y of mg tablet 00:00: mouth [place] 00 the Medical morning Branch and 1 tablet in the evening. predniSONE 2022-0 Yes [id number] Take four [facility] 10 mg 7-18 tablets ity of tablet 00:00: daily for [place] three Medical days, take Branch three tablets daily for three days, take two tablets daily for three days, take one tablet daily for three days furosemide 2022-0 Yes [id number] 40mg Take 1 [facility] 40 mg 7-18 tablet by ity of tablet 00:00: mouth 2 [place] (two) Medical times Branch daily as needed for Other (Swelling) . PRN edema albuterol 2022-0 Yes [id number] 2{puff} Inhale 2 [facility] 90 7-18 Puffs ity of mcg/actuati 00:00: every 4 [place] as on inhaler 00 (four) Medical hours as Branch needed for Wheezing or Shortness of Breath. albuterol 2022-0 Yes [id number] 2.5mg Inhale 0.5 [facility] 2.5 mg/0.5 7-18 mL every 6 ity of mL 00:00: (six) [place] nebulizer 00 hours as Medica l solution needed for Branc h Wheezing. doxycycline 2022-0 Yes [id number] 100mg Take 1 [facility] hyclate 100 7-18 tablet by [facility]y of mg tablet 00:00: mouth [place] 00 the Medical morning Branch and 1 tablet in the evening. predniSONE 2022-0 Yes [id number] Take four [facility] 10 mg 7-18 tablets ity of tablet 00:00: daily for [place] three Medical days, take Branch three tablets daily for three days, take two tablets daily for three days, take one tablet daily for three days furosemide 2022-0 Yes [id number] 40mg Take 1 [facility] 40 mg 7-18 tablet by ity of tablet 00:00: mouth 2 [place] 00 (two) Medical times Branch daily as needed for Other (Swelling) . PRN edema albuterol Yes [id number] 2{puff} Inhale 2 [facility] 90 7-18 Puffs ity of mcg/actuati 00:00: every 4 [place] as on inhaler 00 (four) Medical hours as Branch needed for Wheezing or Shortness of Breath. doxycycline Yes [id number] 100mg Take 1 [facility] hyclate 100 7-18 tablet by [facility] of mg tablet 00:00: mouth [place] 00 the Medical morning Branch and 1 tablet in the evening. predniSONE Yes [id number] Take four [facility] 10 mg 7-18 tablets ity of tablet 00:00: daily for three Medical days, take Branch three tablets daily for three days, take two tablets daily for three days, take one tablet daily for three days furosemide Yes [id number] 40mg Take 1 [facility] 40 mg 7-18 tablet by ity of tablet 00:00: mouth 2 (two) Medical times Branch daily as needed for Other (Swelling) . PRN edema albuterol Yes [id number] 2{puff} Inhale 2 [facility] 90 7-18 Puffs ity of mcg/actuati 00:00: every 4 [place] on inhaler 00 (four) Medical hours as Branch needed for Wheezing or Shortness of Breath. doxycycline Yes [id number] 100mg Take 1 [facility] hyclate 100 7-18 tablet by ity of mg tablet 00:00: [place] 00 the Medical morning Branch and 1 tablet in the evening. predniSONE 0 Yes [id number] Take four [facility] 10 mg 7-18 tablets ity of tablet 00:00: daily for three Medical days, take Branch three tablets daily for three days, take two tablets daily for three days, take one tablet daily for three days furosemide Yes [id number] 40mg Take 1 [facility] 40 mg 7-18 tablet by ity of tablet 00:00: mouth 2 (two) Medical times Branch daily as needed for Other (Swelling) . PRN edema albuterol Yes [id number] 2{puff} Inhale 2 [facility] 90 7-18 Puffs ity of mcg/actuati 00:00: every 4 [place] on inhaler 00 (four) Medical hours as Branch needed for Wheezing or Shortness of Breath. doxycycline 2022-0 Yes [id number] 100mg Take 1 [facility] hyclate 100 7-18 tablet by [facility] of mg tablet 00:[place] the Medical morning Branch and 1 tablet in the evening. predniSONE 2022-0 Yes [id number] Take four [facility] 10 mg 7-18 tablets ity of tablet 00:00: daily for three Medical days, take Branch three tablets daily for three days, take two tablets daily for three days, take one tablet daily for three days furosemide 2022-0 Yes [id number] 40mg Take 1 [facility] 40 mg 7-18 tablet by ity of tablet 00:00: mouth 2 (two) Medical times Branch daily as needed for Other (Swelling) . PRN edema albuterol 2022-0 Yes [id number] 2{puff} Inhale 2 [facility] 90 7-18 Puffs ity of mcg/actuati 00:00: every 4 [place] on inhaler 00 (four) Medical hours as Branch needed for Wheezing or Shortness of Breath. doxycycline 2022-0 Yes [id number] 100mg Take 1 [facility] hyclate 100 7-18 tablet by [place] of mg tablet 00:[place] the Medical morning Branch and 1 tablet in the evening. predniSONE 2022-0 Yes [id number] Take four [facility] 10 mg 7-18 tablets ity of tablet 00:00: daily for three Medical days, take Branch three tablets daily for three days, take two tablets daily for three days, take one tablet daily for three days furosemide 2022-0 Yes [id number] 40mg Take 1 [facility] 40 mg 7-18 tablet by ity of tablet 00:00: mouth 2 (two) Medical times Branch daily as needed for Other (Swelling) . PRN edema albuterol 2022-0 Yes [id number] 2{puff} Inhale 2 [facility] 90 7-18 Puffs ity of mcg/actuati 00:00: every 4 [place] on inhaler 00 (four) Medical hours as Branch needed for Wheezing or Shortness of Breath. doxycycline 3-0 Yes [id number] 100mg Take 1 [facility] hyclate 100 7-18 tablet by ity of mg tablet 00:00: [place] 00 the Medical morning Branch and 1 tablet in the evening. predniSONE Yes [id number] Take four [facility] 10 mg 7-18 tablets ity of tablet 00:00: daily for 00 three Medical days, take Branch three tablets daily for three days, take two tablets daily for three days, take one tablet daily for three days furosemide Yes [id number] 40mg Take 1 [facility] 40 mg 7-18 tablet by ity of tablet 00:00: mouth 2 00 (two) Medical times Branch daily as needed for Other (Swelling) . PRN edema albuterol Yes [id number] 2{puff} Inhale 2 [facility] 90 7-18 Puffs ity of mcg/actuati 00:00: every 4 [place] on inhaler 00 (four) Medical hours as Branch needed for Wheezing or Shortness of Breath. albuterol Yes [id number] 2{puff} Inhale 2 [facility] 90 7-18 Puffs ity of mcg/actuati 00:00: every 4 [place] on inhaler 00 (four) Medical hours as Branch needed for Wheezing or Shortness of Breath. albuterol Yes [id number] 2{puff} Inhale 2 [facility] 90 7-18 Puffs ity of mcg/actuati 00:00: every 4 [place] on inhaler 00 (four) Medical hours as Branch needed for Wheezing or Shortness of Breath. albuterol Yes [id number] 2{puff} Inhale 2 [facility] 90 7-18 Puffs ity of mcg/actuati 00:00: every 4 [place] on inhaler 00 (four) Medical hours as Branch needed for Wheezing or Shortness of Breath. albuterol Yes [id number] 2{puff} Inhale 2 [facility] 90 7-18 Puffs ity of mcg/actuati 00:00: every 4 [place] on inhaler 00 (four) Medical hours as Branch needed for Wheezing or Shortness of Breath. albuterol Yes [id number] 2{puff} Inhale 2 [facility] 90 7-18 Puffs ity of mcg/actuati 00:00: every 4 [place] on inhaler 00 (four) Medical hours as Branch needed for Wheezing or Shortness of Breath. albuterol Yes [id number] 2{puff} Inhale 2 [facility] 90 7-18 Puffs ity of mcg/actuati 00:00: every 4 [place] on inhaler 00 (four) Medical hours as Branch needed for Wheezing or Shortness of Breath. albuterol Yes [id number] 2{puff} Inhale 2 [facility] 90 7-18 Puffs ity of mcg/actuati 00:00: every 4 [place] on inhaler 00 (four) Medical hours as Branch needed for Wheezing or Shortness of Breath. albuterol Yes [id number] 2{puff} Inhale 2 [facility] 90 7-18 Puffs ity of mcg/actuati 00:00: every 4 [place] on inhaler 00 (four) Medical hours as Branch needed for Wheezing or Shortness of Breath. albuterol Yes [id number] 2{puff} Inhale 2 [facility] 90 7-18 Puffs ity of mcg/actuati 00:00: every 4 [place] on inhaler 00 (four) Medical hours as Branch needed for Wheezing or Shortness of Breath. albuterol Yes [id number] 2{puff} Inhale 2 [facility] 90 7-18 Puffs ity of mcg/actuati 00:00: every 4 [place] inhaler 00 (four) Medical hours as Branch needed for Wheezing or Shortness of Breath. albuterol Yes [id number] 2{puff} Inhale 2 [facility] 90 7-18 Puffs ity of mcg/actuati 00:00: every 4 [place] on inhaler 00 (four) Medical hours as Branch needed for Wheezing or Shortness of Breath. albuterol Yes [id number] 2{puff} Inhale 2 [facility] 90 7-18 Puffs ity of mcg/actuati 00:00: every 4 [place] on inhaler 00 (four) Medical hours as Branch needed for Wheezing or Shortness of Breath. albuterol Yes [id number] 2{puff} Inhale 2 [facility] 90 7-18 Puffs ity of mcg/actuati 00:00: every 4 [place] inhaler 00 (four) Medical hours as Branch needed for Wheezing or Shortness of Breath. albuterol Yes [id number] 2{puff} Inhale 2 [facility] 90 7-18 Puffs ity of mcg/actuati 00:00: every 4 [place] on inhaler 00 (four) Medical hours as Branch needed for Wheezing or Shortness of Breath. albuterol Yes [id number] 2{puff} Inhale 2 [facility] 90 7-18 Puffs ity of mcg/actuati 00:00: every 4 [place] on inhaler 00 (four) Medical hours as Branch needed for Wheezing or Shortness of Breath. albuterol Yes [id number] 2{puff} Inhale 2 [facility] 90 7-18 Puffs ity of mcg/actuati 00:00: every 4 [place] inhaler 00 (four) Medical hours as Branch needed for Wheezing or Shortness of Breath. albuterol Yes [id number] 2{puff} Inhale 2 [facility] 90 7-18 Puffs ity of mcg/actuati 00:00: every 4 [place] on inhaler 00 (four) Medical hours as Branch needed for Wheezing or Shortness of Breath. albuterol Yes [id number] 2{puff} Inhale 2 [facility] 90 7-18 Puffs ity of mcg/actuati 00:00: every 4 [place] inhaler 00 (four) Medical hours as Branch needed for Wheezing or Shortness of Breath. albuterol Yes [id number] 2{puff} Inhale 2 [facility] 90 7-18 Puffs ity of mcg/actuati 00:00: every 4 [place] inhaler 00 (four) Medical hours as Branch needed for Wheezing or Shortness of Breath. albuterol Yes [id number] 2{puff} Inhale 2 [facility] 90 7-18 Puffs ity of mcg/actuati 00:00: every 4 [place] on inhaler 00 (four) Medical hours as Branch needed for Wheezing or Shortness of Breath. albuterol Yes [id number] 2{puff} Inhale 2 [facility] 90 7-18 Puffs ity of mcg/actuati 00:00: every 4 [place] inhaler 00 (four) Medical hours as Branch needed for Wheezing or Shortness of Breath. albuterol Yes [id number] 2{puff} Inhale 2 [facility] 90 7-18 Puffs ity of mcg/actuati 00:00: every 4 [place] on inhaler 00 (four) Medical hours as Branch needed for Wheezing or Shortness of Breath. albuterol Yes [id number] 2{puff} Inhale 2 [facility] 90 7-18 Puffs ity of mcg/actuati 00:00: every 4 [place] on inhaler 00 (four) Medical hours as Branch needed for Wheezing or Shortness of Breath. albuterol Yes [id number] 2{puff} Inhale 2 [facility] 90 7-18 Puffs ity of mcg/actuati 00:00: every 4 [place] on inhaler 00 (four) Medical hours as Branch needed for Wheezing or Shortness of Breath. albuterol Yes [id number] 2{puff} Inhale 2 [facility] 90 7-18 Puffs ity of mcg/actuati 00:00: every 4 [place] inhaler 00 (four) Medical hours as Branch needed for Wheezing or Shortness of Breath. albuterol Yes [id number] 2{puff} Inhale 2 [facility] 90 7-18 Puffs ity of mcg/actuati 00:00: every 4 [place] on inhaler 00 (four) Medical hours as Branch needed for Wheezing or Shortness of Breath. albuterol Yes [id number] 2{puff} Inhale 2 [facility] 90 7-18 Puffs ity of mcg/actuati 00:00: every 4 [place] on inhaler 00 (four) Medical hours as Branch needed for Wheezing or Shortness of Breath. albuterol Yes [id number] 2{puff} Inhale 2 [facility] 90 7-18 Puffs ity of mcg/actuati 00:00: every 4 [place] on inhaler 00 (four) Medical hours as Branch needed for Wheezing or Shortness of Breath. albuterol Yes [id number] 2{puff} Inhale 2 [facility] 90 7-18 Puffs ity of mcg/actuati 00:00: every 4 [place] on inhaler 00 (four) Medical hours as Branch needed for Wheezing or Shortness of Breath. albuterol Yes [id number] 2{puff} Inhale 2 [facility] 90 7-18 Puffs ity of mcg/actuati 00:00: every 4 [place] on inhaler 00 (four) Medical hours as Branch needed for Wheezing or Shortness of Breath. albuterol Yes [id number] 2{puff} Inhale 2 [facility] 90 7-18 Puffs ity of mcg/actuati 00:00: every 4 [place] on inhaler 00 (four) Medical hours as Branch needed for Wheezing or Shortness of Breath. albuterol Yes [id number] 2{puff} Inhale 2 [facility] 90 7-18 Puffs ity of mcg/actuati 00:00: every 4 [place] on inhaler 00 (four) Medical hours as Branch needed for Wheezing or Shortness of Breath. albuterol Yes [id number] 2{puff} Inhale 2 [facility] 90 7-18 Puffs ity of mcg/actuati 00:00: every 4 [place] on inhaler 00 (four) Medical hours as Branch needed for Wheezing or Shortness of Breath. albuterol Yes [id number] 2{puff} Inhale 2 [facility] 90 7-18 Puffs ity of mcg/actuati 00:00: every 4 [place] on inhaler 00 (four) Medical hours as Branch needed for Wheezing or Shortness of Breath. albuterol Yes [id number] 2{puff} Inhale 2 [facility] 90 7-18 Puffs ity of mcg/actuati 00:00: every 4 [place] on inhaler 00 (four) Medical hours as Branch needed for Wheezing or Shortness of Breath. albuterol Yes [id number] 2{puff} Inhale 2 [facility] 90 7-18 Puffs ity of mcg/actuati 00:00: every 4 [place] on inhaler 00 (four) Medical hours as Branch needed for Wheezing or Shortness of Breath. albuterol Yes [id number] 2{puff} Inhale 2 [facility] 90 7-18 Puffs ity of mcg/actuati 00:00: every 4 [place] on inhaler 00 (four) Medical hours as Branch needed for Wheezing or Shortness of Breath. albuterol Yes [id number] 2{puff} Inhale 2 [facility] 90 7-18 Puffs ity of mcg/actuati 00:00: every 4 [place] on inhaler 00 (four) Medical hours as Branch needed for Wheezing or Shortness of Breath. albuterol Yes [id number] 2{puff} Inhale 2 [facility] 90 7-18 Puffs ity of mcg/actuati 00:00: every 4 [place] on inhaler 00 (four) Medical hours as Branch needed for Wheezing or Shortness of Breath. albuterol Yes [id number] 2{puff} Inhale 2 [facility] 90 7-18 Puffs ity of mcg/actuati 00:00: every 4 [place] on inhaler 00 (four) Medical hours as Branch needed for Wheezing or Shortness of Breath. albuterol Yes [id number] 2{puff} Inhale 2 [facility] 90 7-18 Puffs ity of mcg/actuati 00:00: every 4 [place] on inhaler 00 (four) Medical hours as Branch needed for Wheezing or Shortness of Breath. albuterol Yes [id number] 2{puff} Inhale 2 [facility] 90 7-18 Puffs ity of mcg/actuati 00:00: every 4 [place] on inhaler 00 (four) Medical hours as Branch needed for Wheezing or Shortness of Breath. albuterol Yes [id number] 2{puff} Inhale 2 [facility] 90 7-18 Puffs ity of mcg/actuati 00:00: every 4 [place] on inhaler 00 (four) Medical hours as Branch needed for Wheezing or Shortness of Breath. albuterol Yes [id number] 2{puff} Inhale 2 [facility] 90 7-18 Puffs ity of mcg/actuati 00:00: every 4 [place] on inhaler 00 (four) Medical hours as Branch needed for Wheezing or Shortness of Breath. albuterol Yes [id number] 2{puff} Inhale 2 [facility] 90 7-18 Puffs ity of mcg/actuati 00:00: every 4 [place] on inhaler 00 (four) Medical hours as Branch needed for Wheezing or Shortness of Breath. albuterol Yes [id number] 2{puff} Inhale 2 [facility] 90 7-18 Puffs ity of mcg/actuati 00:00: every 4 [place] on inhaler 00 (four) Medical hours as Branch needed for Wheezing or Shortness of Breath. albuterol Yes [id number] 2{puff} Inhale 2 [facility] 90 7-18 Puffs ity of mcg/actuati 00:00: every 4 [place] on inhaler 00 (four) Medical hours as Branch needed for Wheezing or Shortness of Breath. albuterol Yes [id number] 2{puff} Inhale 2 [facility] 90 7-18 Puffs ity of mcg/actuati 00:00: every 4 [place] on inhaler 00 (four) Medical hours as Branch needed for Wheezing or Shortness of Breath. albuterol Yes [id number] 2{puff} Inhale 2 [facility] 90 7-18 Puffs ity of mcg/actuati 00:00: every 4 [place] on inhaler 00 (four) Medical hours as Branch needed for Wheezing or Shortness of Breath. albuterol Yes [id number] 2{puff} Inhale 2 [facility] 90 7-18 Puffs ity of mcg/actuati 00:00: every 4 [place] on inhaler 00 (four) Medical hours as Branch needed for Wheezing or Shortness of Breath. albuterol Yes [id number] 2{puff} Inhale 2 [facility] 90 7-18 Puffs ity of mcg/actuati 00:00: every 4 [place] on inhaler 00 (four) Medical hours as Branch needed for Wheezing or Shortness of Breath. albuterol Yes [id number] 2{puff} Inhale 2 [facility] 90 7-18 Puffs ity of mcg/actuati 00:00: every 4 [place] on inhaler 00 (four) Medical hours as Branch needed for Wheezing or Shortness of Breath. albuterol Yes [id number] 2{puff} Inhale 2 [facility] 90 7-18 Puffs ity of mcg/actuati 00:00: every 4 [place] on inhaler 00 (four) Medical hours as Branch needed for Wheezing or Shortness of Breath. albuterol Yes [id number] 2{puff} Inhale 2 [facility] 90 7-18 Puffs ity of mcg/actuati 00:00: every 4 [place] on inhaler 00 (four) Medical hours as Branch needed for Wheezing or Shortness of Breath. albuterol Yes [id number] 2{puff} Inhale 2 [facility] 90 7-18 Puffs ity of mcg/actuati 00:00: every 4 [place] on inhaler 00 (four) Medical hours as Branch needed for Wheezing or Shortness of Breath. albuterol Yes [id number] 2{puff} Inhale 2 [facility] 90 7-18 Puffs ity of mcg/actuati 00:00: every 4 [place] on inhaler 00 (four) Medical hours as Branch needed for Wheezing or Shortness of Breath. albuterol Yes [id number] 2{puff} Inhale 2 [facility] 90 7-18 Puffs ity of mcg/actuati 00:00: every 4 [place] on inhaler 00 (four) Medical hours as Branch needed for Wheezing or Shortness of Breath. albuterol Yes [id number] 2{puff} Inhale 2 [facility] 90 7-18 Puffs ity of mcg/actuati 00:00: every 4 [place] on inhaler 00 (four) Medical hours as Branch needed for Wheezing or Shortness of Breath. albuterol 2022- No [id number] 2{puff} Inhale 2 [facility] 90 7-18 10-18 Puffs ity of mcg/actuati 00:00: 00:00 every 4 [place] inhaler 00 :00 (four) Medical hours as Branch needed for Wheezing or Shortness of Breath. doxycycline 2022- No [id number] 100mg Take 1 [facility] hyclate 100 18 - tablet by it y of mg tablet 00:00: 00:00 mouth in [place] 00 :00 the Medical morning Branch and 1 tablet in the evening. predniSONE 2022- No [id number] Take four [facility] 10 mg 7-18 -29 tablets ity of tablet 00:00: 00:00 daily for [place] 00 :00 three Medical days, take Branch three tablets daily for three days, take two tablets daily for three days, take one tablet daily for three days furosemide 2022- No [id number] 40mg Take 1 [facility] 40 mg 7-18 07-29 tablet by ity of tablet 00:00: 00:00 mouth 2 [place] 00 :00 (two) Medical times Branch daily as needed for Other (Swelling) . PRN edema albuterol 2022- No [id number] 2.5mg Inhale 0.5 [facility] 2.5 mg/0.5 7-18 07-20 mL every 6 it y of mL 00:00: 00:00 (six) [place] nebulizer 00 :00 hours as Medica l solution needed for Branc h Wheezing. amitriptyli Yes [id number] TAKE 1 [facility] ne 100 mg 6-23 TABLET BY ity o f tablet 00:00: MOUTH AT [place] [facility] amitriptyl Yes [id number] TAKE 1 [facility] ne 100 mg 6-23 TABLET BY ity o f tablet 00:00: MOUTH AT [place] [facility] amitriptyl Yes [id number] TAKE 1 [facility] ne 100 mg 6-23 TABLET BY ity o f tablet 00:00: MOUTH AT [place] [facility] amitriptyl Yes [id number] TAKE 1 [facility] ne 100 mg 6-23 TABLET BY ity o f tablet 00:00: MOUTH AT [place] [facility] amitriptyl Yes [id number] TAKE 1 [facility] ne 100 mg 6-23 TABLET BY ity o f tablet 00:00: MOUTH AT [place] [facility] amitriptyli Yes [id number] TAKE 1 [facility] ne 100 mg 6-23 TABLET BY ity o f tablet 00:00: MOUTH AT [place] [facility] amitriptyli Yes [id number] TAKE 1 [facility] ne 100 mg 6-23 TABLET BY ity o f tablet 00:00: MOUTH AT [place] [facility] amitriptyl Yes [id number] TAKE 1 [facility] ne 100 mg 6-23 TABLET BY ity o f tablet 00:00: MOUTH AT [address] amitriptyl Yes [id number] TAKE 1 [facility] ne 100 mg 6-23 TABLET BY ity o f tablet 00:00: MOUTH AT [address] amitriptyl Yes [id number] TAKE 1 [facility] ne 100 mg 6-23 TABLET BY ity o f tablet 00:00: MOUTH AT [place] [facility] [id number] TAKE 1 [facility] ne 100 mg 6-23 TABLET BY ity o f tablet 00:00: MOUTH AT [place] [facility] [id number] TAKE 1 [facility] ne 100 mg 6-23 TABLET BY ity o f tablet 00:00: MOUTH AT [place] [facility] Yes [id number] TAKE 1 [facility] ne 100 mg 6-23 TABLET BY ity o f tablet 00:00: MOUTH AT [place] [facility] Yes [id number] TAKE 1 [facility] ne 100 mg 6-23 TABLET BY ity o f tablet 00:00: MOUTH AT [place] [facility] Yes [id number] TAKE 1 [facility] ne 100 mg 6-23 TABLET BY ity o f tablet 00:00: MOUTH AT [place] [facility] Yes [id number] TAKE 1 [facility] ne 100 mg 6-23 TABLET BY ity o f tablet 00:00: MOUTH AT [place] [facility] Yes [id number] TAKE 1 [facility] ne 100 mg 6-23 TABLET BY ity o f tablet 00:00: MOUTH AT [place] [facility] Yes [id number] TAKE 1 [facility] ne 100 mg 6-23 TABLET BY ity o f tablet 00:00: MOUTH AT [place] [facility] Yes [id number] TAKE 1 [facility] ne 100 mg 6-23 TABLET BY ity o f tablet 00:00: MOUTH AT [place] [facility] Yes [id number] TAKE 1 [facility] ne 100 mg 6-23 TABLET BY ity o f tablet 00:00: MOUTH AT [place] [facility] Yes [id number] TAKE 1 [facility] ne 100 mg 6-23 TABLET BY ity o f tablet 00:00: MOUTH AT [place] [facility] Yes [id number] TAKE 1 [facility] ne 100 mg 6-23 TABLET BY ity o f tablet 00:00: MOUTH AT [place] [facility] amiiptyl Yes [id number] TAKE 1 [facility] ne 100 mg 6-23 TABLET BY ity o f tablet 00:00: MOUTH AT [place] [facility] amitriptyl Yes [id number] TAKE 1 [facility] ne 100 mg 6-23 TABLET BY ity o f tablet 00:00: MOUTH AT [place] [facility] amiiptyl Yes [id number] TAKE 1 [facility] ne 100 mg 6-23 TABLET BY ity o f tablet 00:00: MOUTH AT [place] [facility] amiiptyl Yes [id number] TAKE 1 [facility] ne 100 mg 6-23 TABLET BY ity o f tablet 00:00: MOUTH AT [place] [facility] Yes [id number] TAKE 1 [facility] ne 100 mg 6-23 TABLET BY ity o f tablet 00:00: MOUTH AT [place] [facility] Yes [id number] TAKE 1 [facility] ne 100 mg 6-23 TABLET BY ity o f tablet 00:00: MOUTH AT [place] [facility] Yes [id number] TAKE 1 [facility] ne 100 mg 6-23 TABLET BY ity o f tablet 00:00: MOUTH AT [place] [facility] Yes [id number] TAKE 1 [facility] ne 100 mg 6-23 TABLET BY ity o f tablet 00:00: MOUTH AT [place] [facility] amiiptyl Yes [id number] TAKE 1 [facility] ne 100 mg 6-23 TABLET BY ity o f tablet 00:00: MOUTH AT [place] [facility] amitriptyl Yes [id number] TAKE 1 [facility] ne 100 mg 6-23 TABLET BY ity o f tablet 00:00: MOUTH AT [place] [facility] [id number] TAKE 1 [facility] ne 100 mg 6-23 TABLET BY ity o f tablet 00:00: MOUTH AT [place] [facility] Yes [id number] TAKE 1 [facility] ne 100 mg 6-23 TABLET BY ity o f tablet 00:00: MOUTH AT [place] [facility] amitriptyli 0 Yes [id number] TAKE 1 [facility] ne 100 mg 6-23 TABLET BY ity o f tablet 00:00: MOUTH AT [place] [facility] amitriptyli 0 Yes [id number] TAKE 1 [facility] ne 100 mg 6-23 TABLET BY ity o f tablet 00:00: MOUTH AT [place] [facility] amitriptyli 0 Yes [id number] TAKE 1 [facility] ne 100 mg 6-23 TABLET BY ity o f tablet 00:00: MOUTH AT [place] [facility] amitriptyli 0 Yes [id number] TAKE 1 [facility] ne 100 mg 6-23 TABLET BY ity o f tablet 00:00: MOUTH AT [place] [facility] amitriptyli 0 Yes [id number] TAKE 1 [facility] ne 100 mg 6-23 TABLET BY ity o f tablet 00:00: MOUTH AT [place] [facility] amitriptyl 0 Yes [id number] TAKE 1 [facility] ne 100 mg 6-23 TABLET BY ity o f tablet 00:00: MOUTH AT [place] [facility] amitriptyli Yes [id number] TAKE 1 [facility] ne 100 mg 6-23 TABLET BY ity o f tablet 00:00: MOUTH AT [place] [facility] amitriptyli 0 2022- No [id number] TAKE 1 [facility] ne 100 mg 6-23 - TABLET BY ity of tablet 00:00: 00:00 MOUTH AT [place] 00 :00 [facility] ipratropium 2022- No 3mL 3 mL, Univ ers -albuteroL 10-24 Inhalation it y of (DUONEB) 16:45: 15:59 , ONCE, 1 [place] 0.5 mg-3 00 :00 dose, On Medical mg(2.5 mg [place] base)/3 mL 10/24/22 at nebulizer 1145, solution 3 Routine mL levoFLOXaci 2022- No 750mg 750 mg, U nivers n 10-24 Oral, ONCE ity of (LEVAQUIN) 16:30: 15:51 NOW, 1 [place] tablet 750 00 :00 dose, On Medic al mg [place] 10/24/22 at 1130, JOEY
Re ason for Anti-Infec tive: Documented Infection< br>Documen clarita Infection Site: Respirator y
Durat ion of Therapy: 7 days methylpredn 2022- No 125mg 125 mg, U nivers isolone sod 10-24 Intravenou i ty of succ 16:30: 15:51 s, ONCE, 1 [place] (SOLU-MEDRO 00 :00 dose, On Medi pablito L) [place] injection 10/24/22 at 125 mg 1130, 2 mL ipratropium 2022- No 3mL 3 mL, Univ ers -albuteroL 10-24 Inhalation it y of (DUONEB) 15:30: 14:35 , ONCE, 1 [place] 0.5 mg-3 00 :00 dose, On Medical mg(2.5 mg [place] base)/3 mL 10/24/22 at nebulizer 1030, solution 3 Routine mL albuterol Yes [id number] 2{puff} Inhale 2 [facility] 90 6-22 Puffs ity of mcg/actuati 00:00: every 4 [place] on inhaler 00 (four) Medical hours as Branch needed for Wheezing or Shortness of Breath. predniSONE 2022-0 Yes [id number] 60mg Take 3 [facility] 20 mg 6-22 tablets by ity of tablet 00:00: mouth [place] 00 every Medical morning. Branch levoFLOXaci 0 Yes [id number] 750mg Take 1 [facility] n 6-22 tablet by ity of (LEVAQUIN) 00:00: mouth [place] 750 mg 00 every 24 Medical tablet (twenty-fo Branch ur) hours. albuterol 2022-0 Yes [id number] 2{puff} Inhale 2 [facility] 90 6-22 Puffs ity of mcg/actuati 00:00: every 4 [place] on inhaler 00 (four) Medical hours as Branch needed for Wheezing or Shortness of Breath. predniSONE 2022-0 Yes [id number] 60mg Take 3 [facility] 20 mg 6-22 tablets by ity of tablet 00:00: mouth [place] 00 every Medical morning. Branch levoFLOXaci 2023-0 Yes [id number] 750mg Take 1 [facility] n 6-22 tablet by ity of (LEVAQUIN) 00:00: mouth [place] 750 mg 00 every 24 Medical tablet (twenty-fo Branch ur) hours. albuterol 2022-0 Yes [id number] 2{puff} Inhale 2 [facility] 90 6-22 Puffs ity of mcg/actuati 00:00: every 4 [place] as on inhaler 00 (four) Medical hours as Branch needed for Wheezing or Shortness of Breath. predniSONE 2022-0 Yes [id number] 60mg Take 3 [facility] 20 mg 6-22 tablets by ity of tablet 00:00: mouth [place] 00 every Medical morning. Branch levoFLOXaci 2022-0 Yes [id number] 750mg Take 1 [facility] n 6-22 tablet by ity of (LEVAQUIN) 00:00: mouth [place] 750 mg 00 every 24 Medical tablet (twenty-fo Branch ur) hours. albuterol 2022-0 Yes [id number] 2{puff} Inhale 2 [facility] 90 6-22 Puffs ity of mcg/actuati 00:00: every 4 [place] as on inhaler 00 (four) Medical hours as Branch needed for Wheezing or Shortness of Breath. predniSONE 2022-0 Yes [id number] 60mg Take 3 [facility] 20 mg 6-22 tablets by ity of tablet 00:00: mouth [place] 00 every Medical morning. Branch levoFLOXaci 2022-0 Yes [id number] 750mg Take 1 [facility] n 6-22 tablet by ity of (LEVAQUIN) 00:00: mouth [place] 750 mg 00 every 24 Medical tablet (twenty-fo Branch ur) hours. albuterol 2022-0 Yes [id number] 2{puff} Inhale 2 [facility] 90 6-22 Puffs ity of mcg/actuati 00:00: every 4 [place] on inhaler 00 (four) Medical hours as Branch needed for Wheezing or Shortness of Breath. predniSONE 3-0 Yes [id number] 60mg Take 3 [facility] 20 mg 6-22 tablets by ity of tablet 00:00: mouth [place] 00 every Medical morning. Branch levoFLOXaci 2022-0 Yes [id number] 750mg Take 1 [facility] n 6-22 tablet by ity of (LEVAQUIN) 00:00: mouth [place] 750 mg 00 every 24 Medical tablet (twenty-fo Branch ur) hours. levoFLOXaci 2023-0 Yes [id number] 750mg Take 1 [facility] n 6-22 tablet by ity of (LEVAQUIN) 00:00: mouth [place] 750 mg 00 every 24 Medical tablet (twenty-fo Branch ur) hours. levoFLOXaci 2023-0 Yes [id number] 750mg Take 1 [facility] n 6-22 tablet by ity of (LEVAQUIN) 00:00: mouth [place] 750 mg 00 every 24 Medical tablet (twenty-fo Branch ur) hours. levoFLOXaci 2023-0 Yes [id number] 750mg Take 1 [facility] n 6-22 tablet by ity of (LEVAQUIN) 00:00: mouth [place] 750 mg 00 every 24 Medical tablet (twenty-fo Branch ur) hours. levoFLOXaci 2023-0 Yes [id number] 750mg Take 1 [facility] n 6-22 tablet by ity of (LEVAQUIN) 00:00: mouth [place] 750 mg 00 every 24 Medical tablet (twenty-fo Branch ur) hours. levoFLOXaci 2023-0 Yes [id number] 750mg Take 1 [facility] n 6-22 tablet by ity of (LEVAQUIN) 00:00: mouth [place] 750 mg 00 every 24 Medical tablet (twenty-fo Branch ur) hours. levoFLOXaci 2023-0 Yes [id number] 750mg Take 1 [facility] n 6-22 tablet by ity of (LEVAQUIN) 00:00: mouth [place] 750 mg 00 every 24 Medical tablet (twenty-fo Branch ur) hours. levoFLOXaci 2023-0 Yes [id number] 750mg Take 1 [facility] n 6-22 tablet by ity of (LEVAQUIN) 00:00: mouth [place] 750 mg 00 every 24 Medical tablet (twenty-fo Branch ur) hours. levoFLOXaci 2023-0 2023- No [id number] 750mg Take 1 [facility] n 6-22 07-29 tablet by ity of (LEVAQUIN) 00:00: 00:00 mouth [place] 750 mg 00 :00 every 24 Medical tablet (twenty-fo Branch ur) hours. albuterol 2023-0 2023- No [id number] 2{puff} Inhale 2 [facility] 90 6-22 07-18 Puffs ity of mcg/actuati 00:00: 00:00 every 4 [place] inhaler 00 :00 (four) Medical hours as Branch needed for Wheezing or Shortness of Breath. predniSONE 2022- No [id number] 60mg Take 3 [facility] 20 mg 10-24-18 tablets by ity of tablet 00:00: 00:00 mouth [place] 00 :00 every Medical morning. Branch albuterol 2022- No [id number] 2{puff} Inhale 2 [facility] 90 10-24 07-18 Puffs ity of mcg/actuati 00:00: 00:00 every 4 [place] on inhaler 00 :00 (four) Medical hours as Branch needed for Wheezing or Shortness of Breath. predniSONE 2022- No [id number] 60mg Take 3 [facility] 20 mg 10-24-18 tablets by ity of tablet 00:00: 00:00 mouth [place] 00 :00 every Medical morning. Branch aspirin Yes 81mg 81 mg, [facility] chewable 5-19 Oral, ity of tablet 81 14:00: DAILY, [place] mg 00 First dose Medical on [facility] 09/20/22 at 0900, Until Discontinu ed, Routine spironolact Yes 25mg 25 mg, Univ ers one 5-19 Oral, ity of (ALDACTONE) 14:00: DAILY, [place] tablet 25 00 First dose Medi pablito mg on [facility] 09/20/22 at 0900, Until Discontinu ed, Routine atorvastati Yes 40mg 40 mg, Univ ers n (LIPITOR) 5-19 Oral, QHS, it y of tablet 40 02:00: First dose [place] mg 00 (after Medical last Branch modificati on) on [facility] 09/19/22 at 2100, Until Discontinu ed, Routine ranolazine Yes 500mg 500 mg, Uni vers (RANEXA) 12 5-19 Oral, ity of hr tablet 01:00: Q12H, [place] 500 mg 00 First dose Medical on [facility]3] 09/19/22 at 2000, Until Discontinu ed, Routine spironolact 2022- No [id number] 25mg Take 1 [facility] one 25 mg - 06-19 tablet by ity of tablet 00:00: 04:59 mouth in [place] 00 :00 the Medical morning Branch for 30 days. spironolact 2022- No [id number] 25mg Take 1 [facility] one 25 mg 5-19 06-19 tablet by ity of tablet 00:00: 04:59 mouth in [place] 00 :00 the Medical [facility] Branch for 30 days. spironolact 2022-0 2022- No [id number] 25mg Take 1 [facility] one 25 mg 5-19 06-19 tablet by ity of tablet 00:00: 04:59 mouth in [place] 00 :00 the [facility] Branch for 30 days. spironolact 2022-0 2022- No [id number] 25mg Take 1 [facility] one 25 mg 5-19 06-19 tablet by ity of tablet 00:00: 04:59 mouth in [place] 00 :00 the [facility] Branch for 30 days. HYDROcodone 2023-0 Yes 1{tbl} Take 1 Un nel -acetaminop 5-18 tablet by ity of hen 10-325 21:14: mouth [place] mg tablet 39 every 6 Medical (six) Branch hours as needed for Pain (scale 7-10). furosemide 2023-0 Yes 40mg Take 1 Unive rs 40 mg 5-18 tablet by ity of tablet 21:14: mouth once [place] 39 daily as Medical needed. Branch PRN edema carisoprodo 2023-0 Yes 350mg Take 1 Uni vers L 350 mg 5-18 tablet by ity of tablet 21:14: mouth in [place] [address] the Medical morning Branch and 1 tablet at noon and 1 tablet in the evening. HYDROcodone 2023-0 Yes 1{tbl} Take 1 Un nel -acetaminop 5-18 tablet by ity of hen 10-325 21:14: mouth [place] mg tablet 39 every 6 Medical (six) Branch hours as needed for Pain (scale 7-10). furosemide 2023-0 Yes 40mg Take 1 Unive rs 40 mg 5-18 tablet by ity of tablet 21:14: mouth once [place] 39 daily as Medical needed. Branch PRN edema carisoprodo 2023-0 Yes 350mg Take 1 Uni vers L 350 mg 5-18 tablet by ity of tablet 21:14: mouth in [place] [address] the Medical morning Branch and 1 tablet at noon and 1 tablet in the evening. HYDROcodone 2023-0 Yes 1{tbl} Take 1 Un nel -acetaminop 5-18 tablet by ity of hen 10-325 21:14: mouth [place] mg tablet 39 every 6 Medical (six) Branch hours as needed for Pain (scale 7-10). furosemide 2023-0 Yes 40mg Take 1 Unive rs 40 mg 5-18 tablet by ity of tablet 21:14: mouth once [place] 39 daily as Medical needed. Branch PRN edema carisoprodo 2023-0 Yes 350mg Take 1 Uni vers L 350 mg 5-18 tablet by ity of tablet 21:14: mouth in [place] 39 the Medical morning Branch and 1 tablet at noon and 1 tablet in the evening. HYDROcodone 2023-0 Yes 1{tbl} Take 1 Un nel -acetaminop 5-18 tablet by ity of hen 10-325 21:14: mouth [place] mg tablet 39 every 6 Medical (six) Branch hours as needed for Pain (scale 7-10). furosemide 2023-0 Yes 40mg Take 1 Unive rs 40 mg 5-18 tablet by ity of tablet 21:14: mouth once [place] 39 daily as Medical needed. Branch PRN edema carisoprodo 2023-0 Yes 350mg Take 1 Uni vers L 350 mg 5-18 tablet by ity of tablet 21:14: mouth in [place] 39 the Medical morning Branch and 1 tablet at noon and 1 tablet in the evening. HYDROcodone 2023-0 Yes 1{tbl} Take 1 Un nel -acetaminop 5-18 tablet by ity of hen 10-325 21:14: mouth [place] mg tablet 39 every 6 Medical (six) Branch hours as needed for Pain (scale 7-10). furosemide 2023-0 Yes 40mg Take 1 Unive rs 40 mg 5-18 tablet by ity of tablet 21:14: mouth once [place] 39 daily as Medical needed. Branch PRN edema carisoprodo 2023-0 Yes 350mg Take 1 Uni vers L 350 mg 5-18 tablet by ity of tablet 21:14: mouth in [place] 39 the Medical morning Branch and 1 tablet at noon and 1 tablet in the evening. HYDROcodone 2023-0 Yes 1{tbl} Take 1 Un nel -acetaminop 5-18 tablet by ity of hen 10-325 21:14: mouth [place] mg tablet 39 every 6 Medical (six) Branch hours as needed for Pain (scale 7-10). furosemide 2023-0 Yes 40mg Take 1 Unive rs 40 mg 5-18 tablet by ity of tablet 21:14: mouth once [place] 39 daily as Medical needed. Branch PRN edema carisoprodo 2023-0 Yes 350mg Take 1 Uni vers L 350 mg 5-18 tablet by ity of tablet 21:14: mouth in [place] 39 the Medical morning Branch and 1 tablet at noon and 1 tablet in the evening. HYDROcodone 2023-0 Yes 1{tbl} Take 1 Un nel -acetaminop 5-18 tablet by ity of hen 10-325 21:14: mouth [place] mg tablet 39 every 6 Medical (six) Branch hours as needed for Pain (scale 7-10). furosemide 2023-0 Yes 40mg Take 1 Unive rs 40 mg 5-18 tablet by ity of tablet 21:14: mouth once [place] 39 daily as Medical needed. Branch PRN edema carisoprodo 2023-0 Yes 350mg Take 1 Uni vers L 350 mg 5-18 tablet by ity of tablet 21:14: mouth in [place] 39 the Medical morning Branch and 1 tablet at noon and 1 tablet in the evening. HYDROcodone 2023-0 Yes 1{tbl} Take 1 Un nel -acetaminop 5-18 tablet by ity of hen 10-325 21:14: mouth [place] mg tablet 39 every 6 Medical (six) Branch hours as needed for Pain (scale 7-10). furosemide 2023-0 Yes 40mg Take 1 Unive rs 40 mg 5-18 tablet by ity of tablet 21:14: mouth once [place] 39 daily as Medical needed. Branch PRN edema carisoprodo 2023-0 Yes 350mg Take 1 Uni vers L 350 mg 5-18 tablet by ity of tablet 21:14: mouth in [place] 39 the Medical morning Branch and 1 tablet at noon and 1 tablet in the evening. HYDROcodone 2023-0 Yes 1{tbl} Take 1 Un nel -acetaminop 5-18 tablet by ity of hen 10-325 21:14: mouth [place] mg tablet 39 every 6 Medical (six) Branch hours as needed for Pain (scale 7-10). furosemide 2023-0 Yes 40mg Take 1 Unive rs 40 mg 5-18 tablet by ity of tablet 21:14: mouth once [place] 39 daily as Medical needed. Branch PRN edema carisoprodo 2023-0 Yes 350mg Take 1 Uni vers L 350 mg 5-18 tablet by ity of tablet 21:14: mouth in [place] 39 the Medical morning Branch and 1 tablet at noon and 1 tablet in the evening. HYDROcodone 2023-0 Yes 1{tbl} Take 1 Un nel -acetaminop 5-18 tablet by ity of hen 10-325 21:14: mouth [place] mg tablet 39 every 6 Medical (six) Branch hours as needed for Pain (scale 7-10). furosemide 2023-0 Yes 40mg Take 1 Unive rs 40 mg 5-18 tablet by ity of tablet 21:14: mouth once [place] 39 daily as Medical needed. Branch PRN edema carisoprodo 2023-0 Yes 350mg Take 1 Uni vers L 350 mg 5-18 tablet by ity of tablet 21:14: mouth in [place] 39 the Medical morning Branch and 1 tablet at noon and 1 tablet in the evening. HYDROcodone 2023-0 Yes 1{tbl} Take 1 Un nel -acetaminop 5-18 tablet by ity of hen 10-325 21:14: mouth [place] mg tablet 39 every 6 Medical (six) Branch hours as needed for Pain (scale 7-10). furosemide 2023-0 Yes 40mg Take 1 Unive rs 40 mg 5-18 tablet by ity of tablet 21:14: mouth once [place] 39 daily as Medical needed. Branch PRN edema carisoprodo 2023-0 Yes 350mg Take 1 Uni vers L 350 mg 5-18 tablet by ity of tablet 21:14: mouth in [place] [address] the Medical morning Branch and 1 tablet at noon and 1 tablet in the evening. HYDROcodone 2023-0 Yes 1{tbl} Take 1 Un nel -acetaminop 5-18 tablet by ity of hen 10-325 21:14: mouth [place] mg tablet 39 every 6 Medical (six) Branch hours as needed for Pain (scale 7-10). furosemide 2023-0 Yes 40mg Take 1 Unive rs 40 mg 5-18 tablet by ity of tablet 21:14: mouth once [place] 39 daily as Medical needed. Branch PRN edema carisoprodo 2023-0 Yes 350mg Take 1 Uni vers L 350 mg 5-18 tablet by ity of tablet 21:14: mouth in [place] 39 the Medical morning Branch and 1 tablet at noon and 1 tablet in the evening. HYDROcodone 2023-0 Yes 1{tbl} Take 1 Un nel -acetaminop 5-18 tablet by ity of hen 10-325 21:14: mouth [place] mg tablet 39 every 6 Medical (six) Branch hours as needed for Pain (scale 7-10). furosemide 2023-0 Yes 40mg Take 1 Unive rs 40 mg 5-18 tablet by ity of tablet 21:14: mouth once [place] 39 daily as Medical needed. Branch PRN edema carisoprodo 2023-0 Yes 350mg Take 1 Uni vers L 350 mg 5-18 tablet by ity of tablet 21:14: mouth in [place] 39 the Medical morning Branch and 1 tablet at noon and 1 tablet in the evening. furosemide 3-0 Yes 40mg 40 mg, IV Un nel (LASIX) 5-18 Push, ity of injection 15:30: Q12H, [place] 40 mg 00 First dose Medical on [facility]3] 09/19/22 at 1030, Until Discontinu ed, Routine lisinopriL 2022-0 Yes 20mg 20 mg, Unive rs (PRINIVIL,Z 5-18 Oral, ity of ESTRIL) 14:00: DAILY, [place] tablet 20 00 First dose Medi pablito mg on [facility]3] 09/19/22 at 0900, Until Discontinu ed, Routine KCL 2022-0 Yes 10meq 10 mEq, Univers (KLOR-CON 5-18 Oral, ity of M10) tablet 14:00: DAILY, [place] 10 mEq 00 First dose Medical on [facility]3] 09/19/22 at 0900, Until Discontinu ed, Routine fluticasone 2022-0 Yes 1{puff} 1 Puff, Univers propion-li 5-18 Inhalation it y of meteroL 13:00: , Q12H, [place] (ADVAIR) 00 First dose Medic al 250-50 on [facility]3] mcg/dose 09/19/22 at inhalation 0800, disk 1 Puff Until Discontinu ed, Routine carvediloL 2022-0 Yes 3.125mg 3.125 mg, Univers (COREG) 5-18 Oral, BID ity of tablet 13:00: MEALS, [place] 3.125 mg 00 First dose Medic al on [facility]3] 09/19/22 at 0800, Until Discontinu ed, Routine budesonide 2022-0 Yes .5mg 0.5 mg, Univ ers (PULMICORT 5-18 Inhalation ity of RESPULE) 13:00: , BID, [place] nebulizer 00 First dose Medi pablito solution on Fri Branch 0.5 mg 09/19/22 at 0800, Until Discontinu ed, Routine apixaban 2022-0 Yes 5mg 5 mg, Univers (ELIQUIS) 518 Oral, BID, ity of tablet 5 mg 13:00: First dose [place] 00 on Fri Medical 09/19/22 at Branch 0800, Until Discontinu ed, Routine
Indicatio ns: Non-Valvul ar Atrial Fibrillati on amitriptyli 0 Yes 50mg 50 mg, Univ ers ne (ELAVIL) 518 Oral, QHS, it y of tablet 50 03:45: First dose [place] mg 00 (after Medical last Branch modificati on) on Fri09/18/22 at 2245, Until Discontinu ed, Routine carisoprodo 0 Yes 350mg 350 mg, Un nel L (SOMA) 18 Oral, TID, ity o f tablet 350 02:42: First dose [place] mg 00 (after Medical last Branch modificati on) on Fri09/18/22 at 2145, Until Discontinu ed, Routine HYDROcodone 2022-0 Yes 1{tbl} 1 tablet, Univers -acetaminop 09-19 Oral, ity of hen (NORCO) 02:30: Q6HPRN, [place] as 10-325 mg 14 Starting Medica l tablet 1 on Fri tablet 09/18/22 at 2130, Until Discontinu ed, Routine, Pain (scale 7-10) furosemide 2022-0 Yes 40mg 40 mg, Unive rs (LASIX) 5-18 Oral, ity of tablet 40 02:29: QDAILYPRN, [place] mg 59 Starting Medical on Fri Branch 09/18/22 at 2129, Until Discontinu ed, Routine, edema albuterol 2022-0 Yes 1{ampul 2.5 mg (1 Univers 2.5 mg/0.5 -18 e} Ampule), ity o f mL 02:28: Inhalation [place] nebulizer 51 , Q6HPRN, Medic al solution Starting Branch 2.5 mg on Fri09/18/22 at 2128, Until Discontinu ed, Routine, Wheezing ranolazine 2022- No [id number] 500mg Take 1 [facility] 500 mg 12 09-1918 tablet by ity of hr tablet 00:00: 04:59 mouth [place] 00 :00 every 12 Medical (twelve) Branch hours for 30 days. ranolazine 2022- No [id number] 500mg Take 1 [facility] 500 mg 12 09-1918 tablet by ity of hr tablet 00:00: 04:59 mouth [place] 00 :00 every 12 Medical (twelve) Branch hours for 30 days. ranolazine 2022- No [id number] 500mg Take 1 [facility] 500 mg 09-19 tablet by ity of hr tablet 00:00: 04:59 mouth [place] 00 :00 every 12 Medical (twelve) Branch hours for 30 days. ranolazine 2022- No [id number] 500mg Take 1 [facility] 500 mg 09-19 tablet by ity of hr tablet 00:00: 04:59 mouth [place] 00 :00 every 12 Medical (twelve) Branch hours for 30 days. enoxaparin No 40mg 40 mg, [facility] ers (LOVENOX) 09-18 Subcutaneo ity of injection 22:00: 02:31 us, DAILY, [place] 40 mg 00 :44 First dose Medical on Fri Branch 09/18/22 at 1700, Until Discontinu ed, Routine methylpredn No 125mg 125 mg, U nivers isolone sod 09-18 Slow IV ity of succ 21:15: 20:28 Push, ONCE [place] (SOLU-MEDRO 00 :00 NOW, 1 Medica l L) dose, On Branch injection Wed 125 mg 09/18/22 at 1615, JOEY ipratropium No 3mL 3 mL, [facility] ers -albuteroL 09-18 Inhalation it y of (DUONEB) 21:15: 20:34 , ONCE, 1 [place] as 0.5 mg-3 00 :00 dose, On Medical mg(2.5 mg Fri Branch base)/3 mL 09/18/22 at nebulizer 1615, JOEY solution 3 mL acetaminoph Yes 650mg 650 mg, Un nel en 09-18 Oral, ity of (TYLENOL) 21:00: Q6HPRN, [place] tablet 650 23 Starting Medic al mg on Fri Branch 09/18/22 at 1600, Until Discontinu ed, Routine, Pain (scale 1-3) furosemide No 40mg 40 mg, IV U nivers (LASIX) 09-18 Push, ity of injection 21:00: 21:26 ONCE, 1 [place] 40 mg 00 :00 dose, On Medical Fri Branch 09/18/22 at 1600, JOEY maalox:diph No 15mL 15 mL, Uni vers enhydrAMINE 08-23 Oral, ity of :lidocaine 04:30: 04:29 ONCE, 1 [place] 2 % viscous 00 :00 dose, On Medi pablito 1:1:1 [place] [facility] (FIRST-MOUT 08/22/[address] [facility]) 2330, oral Routine suspension 15 mL levalbutero No 2.5mg 2.5 mg, U nivers l (XOPENEX) 08-23 Inhalation i ty of nebulizer 04:30: 03:55 , ONCE, 1 [place] solution 00 :00 dose, On Medical 2.5 mg [place] 08/22/22 at 2330, Routine levalbutero 2022- No 3.75mg 3.75 mg, Univers l (XOPENEX) 08-23 Inhalation i ty of nebulizer 02:15: 01:54 , ONCE, 1 [place] solution 00 :00 dose, On Medical 3.75 mg [place] [facility] 08/22/22 at 2115, Routine magnesium 2022- No 2g 2 g, IV Univ ers sulfate in 08-23 Piggyback, it y of water 2 02:15: 03:12 Administer [place] gram/50 mL 00 :00 over 60 Medica l (4 %) Minutes, Branch infusion 2 ONCE, 1 g dose, On [place] 08/22/22 at 2115, Routine methylpredn 2022- No 125mg 125 mg, U nivers isolone sod 08-23 Intravenou i ty of succ 02:15: 01:49 s, ONCE, 1 [place] (SOLU-MEDRO 00 :00 dose, On Medi pablito L) [place] [facility] injection 08/22/22 at 125 mg 2114, 2 mL levalbutero 2022- No 3.75mg 3.75 mg, Univers l (XOPENEX) 08-23 Inhalation i ty of nebulizer 01:15: 00:31 , ONCE, 1 [place] solution 00 :00 dose, On Medical 3.75 mg [place] 08/22/22 at 2014, Routine ipratropium 2022- No .5mg 0.5 mg, Un nel (ATROVENT) 08-23 Inhalation it y of 0.02 % 01:15: 00:31 , ONCE, 1 [place] nebulizer 00 :00 dose, On Medica l solution [place] [facility] 0.5 mg 08/22/22 at 2014, JOEY ibuprofen 0 2022- No 600mg 600 mg, Uni vers (IBU) 08-23 Oral, ity of tablet 600 00:30: 00:20 ONCE, 1 [place] mg 00 :00 dose, On Medical [place] [facility] 08/22/22 at 1930, JOEY furosemide 0 2022- No 40mg 40 mg, IV U nivers (LASIX) 08-22 Push, ity of injection 23:30: 23:35 ONCE, 1 [place] 40 mg 00 :00 dose, On Medical [place] [facility] 08/22/22 at 1830, JOEY albuterol 2022-0 Yes [id number] 2{puff} Inhale 2 [facility] 90 4-20 Puffs ity of mcg/actuati 00:00: every 4 [place] on inhaler 00 (four) Medical hours as Branch needed for Wheezing or Shortness of Breath. albuterol 2022-0 Yes [id number] 2{puff} Inhale 2 [facility] 90 4-20 Puffs ity of mcg/actuati 00:00: every 4 [place] on inhaler 00 (four) Medical hours as Branch needed for Wheezing or Shortness of Breath. albuterol Yes [id number] 2{puff} Inhale 2 [facility] 90 4-20 Puffs ity of mcg/actuati 00:00: every 4 [place] on inhaler 00 (four) Medical hours as Branch needed for Wheezing or Shortness of Breath. albuterol Yes [id number] 2{puff} Inhale 2 [facility] 90 4-20 Puffs ity of mcg/actuati 00:00: every 4 [place] on inhaler 00 (four) Medical hours as Branch needed for Wheezing or Shortness of Breath. albuterol Yes [id number] 2{puff} Inhale 2 [facility] 90 4-20 Puffs ity of mcg/actuati 00:00: every 4 [place] on inhaler 00 (four) Medical hours as Branch needed for Wheezing or Shortness of Breath. albuterol Yes [id number] 2{puff} Inhale 2 [facility] 90 4-20 Puffs ity of mcg/actuati 00:00: every 4 [place] on inhaler 00 (four) Medical hours as Branch needed for Wheezing or Shortness of Breath. albuterol Yes [id number] 2{puff} Inhale 2 [facility] 90 4-20 Puffs ity of mcg/actuati 00:00: every 4 [place] on inhaler 00 (four) Medical hours as Branch needed for Wheezing or Shortness of Breath. albuterol 2022- No [id number] 2{puff} Inhale 2 [facility] 90 4-20 06-22 Puffs ity of mcg/actuati 00:00: 00:00 every 4 [place] on inhaler 00 :00 (four) Medical hours as Branch needed for Wheezing or Shortness of Breath. albuterol 2022- No [id number] 2{puff} Inhale 2 [facility] 90 4-20 06-22 Puffs ity of mcg/actuati 00:00: 00:00 every 4 [place] on inhaler 00 :00 (four) Medical hours as Branch needed for Wheezing or Shortness of Breath. predniSONE 2022- No [id number] 50mg Take 5 Univers 10 mg 4-20 04-25 tablets by ity of tablet 00:00: 04:59 mouth in [place] 00 :00 the Medical morning Branch for 4 days. predniSONE 3-0 2022- No [id number] 50mg Take 5 Univers 10 mg 4-20 04-25 tablets by ity of tablet 00:00: 04:59 mouth in [place] 00 :00 the Medical morning Branch for 4 days. clopidogreL 2022-0 3- No 75mg Take 1 Uni vers 75 mg 4-18 04-18 tablet by ity of tablet 16:01: 00:00 mouth in [place] 43 :00 the Medical morning. Branch clopidogreL 2022-0 2023- No 75mg Take 1 Uni vers 75 mg 4-18 04-18 tablet by ity of tablet 16:01: 00:00 mouth in [place] 43 :00 the Medical morning. Branch clopidogreL 2022-0 3- No 75mg Take 1 Uni vers 75 mg 4-18 04-18 tablet by ity of tablet 16:01: 00:00 mouth in [place] 43 :00 the Medical morning. Branch lisinopriL 2022-0 Yes [id number] 20mg Take 1 U nivers 20 mg 4-18 tablet by ity of tablet 00:00: mouth in [place] 00 the Medical morning. Branch atorvastati 2022-0 Yes [id number] 10mg Take 1 Univers n 10 mg 4-18 tablet by ity of tablet 00:00: mouth at [place] [address] bedtime. Medical Branch apixaban 2022-0 Yes 5mg Take 1 Univers (ELIQUIS) 5 4-18 tablet by ity of mg tablet 00:00: mouth in [place] [facility] 00 the Medical morning Branch and 1 tablet in the evening. Indication s: PE metFORMIN 2022-0 Yes [id number] 500mg Take 1 [facility] 500 mg 4-18 tablet by ity of tablet 00:00: mouth in [place] [address] the Medical morning Branch and 1 tablet in the evening. Take with meals. lisinopriL 2022-0 Yes [id number] 20mg Take 1 U nivers 20 mg 4-18 tablet by ity of tablet 00:00: mouth in [place] [address] the Medical morning. Branch atorvastati 2022-0 Yes [id number] 10mg Take 1 Univers n 10 mg 4-18 tablet by ity of tablet 00:00: mouth at [place] [address] bedtime. Medical Branch apixaban 2022-0 Yes 5mg Take 1 Univers (ELIQUIS) 5 4-18 tablet by ity of mg tablet 00:00: mouth in [facility] s 00 the Medical morning Branch and 1 tablet in the evening. Indication s: PE metFORMIN 3-0 Yes [id number] 500mg Take 1 [facility] 500 mg 4-18 tablet by ity of tablet 00:00: mouth in [place] 00 the Medical morning Branch and 1 tablet in the evening. Take with meals. lisinopriL 2022-0 Yes [id number] 20mg Take 1 U nivers 20 mg 4-18 tablet by ity of tablet 00:00: mouth in [place] 00 the Medical morning. Branch atorvastati 2022-0 Yes [id number] 10mg Take 1 Univers n 10 mg 4-18 tablet by ity of tablet 00:00: mouth at [place] 00 bedtime. Medical Branch apixaban 2022-0 Yes 5mg Take 1 Univers (ELIQUIS) 5 4-18 tablet by ity of mg tablet 00:00: mouth in [facility] s 00 the Medical morning Branch and 1 tablet in the evening. Indication s: PE metFORMIN 2022-0 Yes [id number] 500mg Take 1 [facility] 500 mg 4-18 tablet by ity of tablet 00:00: mouth in [place] 00 the Medical morning Branch and 1 tablet in the evening. Take with meals. lisinopriL 2022-0 Yes [id number] 20mg Take 1 U nivers 20 mg 4-18 tablet by ity of tablet 00:00: mouth in [place] 00 the Medical morning. Branch atorvastati 2022-0 Yes [id number] 10mg Take 1 Univers n 10 mg 4-18 tablet by ity of tablet 00:00: mouth at [place] 00 bedtime. Medical Branch apixaban 3-0 Yes 5mg Take 1 Univers (ELIQUIS) 5 4-18 tablet by ity of mg tablet 00:00: mouth in [place] [facility] 00 the Medical morning Branch and 1 tablet in the evening. Indication s: PE metFORMIN 3-0 Yes [id number] 500mg Take 1 [facility] 500 mg 4-18 tablet by ity of tablet 00:00: mouth in [place] [address] the Medical morning Branch and 1 tablet in the evening. Take with meals. lisinopriL 2023-0 Yes [id number] 20mg Take 1 U nivers 20 mg 4-18 tablet by ity of tablet 00:00: mouth in [place] 00 the Medical morning. Branch KCL 10 mEq 2022-0 Yes [id number] 10meq Take 1 [facility] tablet 4-18 tablet by ity of 00:00: mouth in [place] 00 the morning. Branch Take with Lasix atorvastati 2022-0 Yes [id number] 10mg Take 1 [facility] n 10 mg 4-18 tablet by ity of tablet 00:00: mouth at [place] 00 bedtime. Medical Branch apixaban 0 Yes 5mg Take 1 [facility] (ELIQUIS) 5 4-18 tablet by ity of mg tablet 00:00: [place] 00 the Medical morning Branch and 1 tablet in the evening. Indication s: PE fluticasone Yes [id number] 1{puff} Inhale 1 [facility] propion-li 4-18 Puff every it y of meteroL 00:00: 12 [place] (ADVAIR 00 (twelve) Medical DISKUS) hours. Branch 250-50 mcg/dose inhalation disk metFORMIN Yes [id number] 500mg Take 1 [facility] 500 mg 4-18 tablet by ity of tablet 00:00: mouth in [place] 00 the Medical morning Branch and 1 tablet in the evening. Take with meals. albuterol Yes [id number] 2{puff} Inhale 2 [facility] 90 4-18 Puffs ity of mcg/actuati 00:00: every 6 [place] as on inhaler 00 (six) Medical hours as Branch needed for Wheezing or Shortness of Breath. albuterol Yes [id number] 2.5mg Inhale 0.5 [facility] 2.5 mg/0.5 4-18 mL every 6 ity of mL 00:00: (six) [place] nebulizer 00 hours as Medica l solution needed for Branc h Wheezing. benzonatate Yes [id number] Take 1-2 [facility] (TESSALON 4-18 capsules ity of PERLES) 100 00:00: three [place] mg capsule 00 times a Medica l day as Branch needed for cough. promethazin 0 Yes [id number] 5mL Take 5 mL [facility] e-dextromet 4-18 by mouth 4 it y of horphan 00:00: (four) [place] 6.25-15 00 times Medical mg/5 mL daily as Branch syrup needed for Cough. lisinopriL Yes [id number] 20mg Take 1 U nivers 20 mg 4-18 tablet by ity of tablet 00:00: mouth in [place] 00 the Medical morning. Branch KCL 10 mEq Yes [id number] 10meq Take 1 [facility] tablet 4-18 tablet by ity of 00:00: mouth in [place] 00 the Medical morning. Branch Take with Lasix atorvastati Yes [id number] 10mg Take 1 [facility] n 10 mg 4-18 tablet by ity of tablet 00:00: mouth at [place] 00 bedtime. Medical Branch apixaban Yes 5mg Take 1 [facility] (ELIQUIS) 5 4-18 tablet by ity of mg tablet 00:00: mouth in [place] [facility] 00 the Medical morning Branch and 1 tablet in the evening. Indication s: PE fluticasone Yes [id number] 1{puff} Inhale 1 [facility] propion-li 4-18 Puff every it y of meteroL 00:00: 12 [place] (ADVAIR 00 (twelve) Medical DISKUS) hours. Branch 250-50 mcg/dose inhalation disk metFORMIN Yes [id number] 500mg Take 1 [facility] 500 mg 4-18 tablet by ity of tablet 00:00: mouth in [place] 00 the Medical morning Branch and 1 tablet in the evening. Take with meals. albuterol Yes [id number] 2{puff} Inhale 2 [facility] 90 4-18 Puffs ity of mcg/actuati 00:00: every 6 [place] as on inhaler 00 (six) Medical hours as Branch needed for Wheezing or Shortness of Breath. albuterol Yes [id number] 2.5mg Inhale 0.5 [facility] 2.5 mg/0.5 4-18 mL every 6 ity of mL 00:00: (six) [place] nebulizer 00 hours as Medica l solution needed for Branc h Wheezing. benzonatate Yes [id number] Take 1-2 [facility] (TESSALON 4-18 capsules ity of PERLES) 100 00:00: three [place] mg capsule 00 times a Medica l day as Branch needed for cough. promethazin Yes [id number] 5mL Take 5 mL [facility] e-dextromet 4-18 by mouth 4 it y of horphan 00:00: (four) [place] 6.25-15 00 times Medical mg/5 mL daily as Branch syrup needed for Cough. lisinopriL 0 Yes [id number] 20mg Take 1 U nivers 20 mg 4-18 tablet by ity of tablet 00:00: mouth in [place] 00 the Medical morning. Branch KCL 10 mEq 2022-0 Yes [id number] 10meq Take 1 [facility] tablet 4-18 tablet by ity of 00:00: mouth in [place] 00 the Medical morning. Branch Take with Lasix atorvastati 0 Yes [id number] 10mg Take 1 [facility] n 10 mg 4-18 tablet by ity of tablet 00:00: mouth at [place] 00 bedtime. Medical Branch apixaban 0 Yes 5mg Take 1 [facility] (ELIQUIS) 5 4-18 tablet by ity of mg tablet 00:00: mouth in [place] [facility] 00 the Medical morning Branch and 1 tablet in the evening. Indication s: PE fluticasone 0 Yes [id number] 1{puff} Inhale 1 [facility] propion-li 4-18 Puff every it y of meteroL 00:00: 12 [place] (ADVAIR 00 (twelve) Medical DISKUS) hours. Branch 250-50 mcg/dose inhalation disk metFORMIN 0 Yes [id number] 500mg Take 1 [facility] 500 mg 4-18 tablet by ity of tablet 00:00: mouth in [place] 00 the Medical morning Branch and 1 tablet in the evening. Take with meals. albuterol 2022-0 Yes [id number] 2.5mg Inhale 0.5 [facility] 2.5 mg/0.5 4-18 mL every 6 ity of mL 00:00: (six) [place] nebulizer 00 hours as Medica l solution needed for Branc h Wheezing. benzonatate 2022-0 Yes [id number] Take 1-2 [facility] (TESSALON 4-18 capsules ity of PERLES) 100 00:00: three [place] mg capsule 00 times a Medica l day as Branch needed for cough. promethazin 2022-0 Yes [id number] 5mL Take 5 mL [facility] e-dextromet 4-18 by mouth 4 it y of horphan 00:00: (four) [place] 6.25-15 00 times Medical mg/5 mL daily as Branch syrup needed for Cough. lisinopriL 2022-0 Yes [id number] 20mg Take 1 U nivers 20 mg 4-18 tablet by ity of tablet 00:00: mouth in [place] 00 the Medical morning. Branch KCL 10 mEq 2022-0 Yes [id number] 10meq Take 1 [facility] tablet 4-18 tablet by ity of 00:00: mouth in [place] 00 the Medical morning. Branch Take with Lasix atorvastati 2022-0 Yes [id number] 10mg Take 1 [facility] n 10 mg 4-18 tablet by ity of tablet 00:00: mouth at [place] [address] bedtime. Medical Branch apixaban 0 Yes 5mg Take 1 [facility] (ELIQUIS) 5 4-18 tablet by ity of mg tablet 00:00: mouth in [facility] 00 the Medical morning Branch and 1 tablet in the evening. Indication s: PE fluticasone 0 Yes [id number] 1{puff} Inhale 1 [facility] propion-li 4-18 Puff every it y of meteroL 00:00: 12 [place] (ADVAIR 00 (twelve) Medical DISKUS) hours. Branch 250-50 mcg/dose inhalation disk metFORMIN Yes [id number] 500mg Take 1 [facility] 500 mg 4-18 tablet by ity of tablet 00:00: mouth in [place] 00 the Medical morning Branch and 1 tablet in the evening. Take with meals. albuterol 0 Yes [id number] 2.5mg Inhale 0.5 [facility] 2.5 mg/0.5 4-18 mL every 6 ity of mL 00:00: (six) [place] nebulizer 00 hours as Medica l solution needed for Branc h Wheezing. benzonatate 2022-0 Yes [id number] Take 1-2 [facility] (TESSALON 4-18 capsules ity of PERLES) 100 00:00: three [place] mg capsule 00 times a Medica l day as Branch needed for cough. promethazin 0 Yes [id number] 5mL Take 5 mL [facility] e-dextromet 4-18 by mouth 4 it y of horphan 00:00: (four) [place] 6.25-15 00 times Medical mg/5 mL daily as Branch syrup needed for Cough. lisinopriL Yes [id number] 20mg Take 1 U nivers 20 mg 4-18 tablet by ity of tablet 00:00: mouth in [place] 00 the Medical morning. Branch KCL 10 mEq 0 Yes [id number] 10meq Take 1 [facility] tablet 4-18 tablet by ity of 00:00: mouth in [place] 00 the Medical morning. Branch Take with Lasix atorvastati 0 Yes [id number] 10mg Take 1 [facility] n 10 mg 4-18 tablet by ity of tablet 00:00: mouth at [place] [address] bedtime. Medical Branch apixaban 0 Yes 5mg Take 1 [facility] (ELIQUIS) 5 4-18 tablet by ity of mg tablet 00:00: mouth in [place] [facility] 00 the Medical morning Branch and 1 tablet in the evening. Indication s: PE fluticasone 0 Yes [id number] 1{puff} Inhale 1 [facility] propion-li 4-18 Puff every it y of meteroL 00:00: 12 [place] (ADVAIR 00 (twelve) Medical DISKUS) hours. Branch 250-50 mcg/dose inhalation disk metFORMIN 0 Yes [id number] 500mg Take 1 [facility] 500 mg 4-18 tablet by ity of tablet 00:00: mouth in [place] 00 the Medical morning Branch and 1 tablet in the evening. Take with meals. albuterol Yes [id number] 2.5mg Inhale 0.5 [facility] 2.5 mg/0.5 4-18 mL every 6 ity of mL 00:00: (six) [place] nebulizer 00 hours as Medica l solution needed for Branc h Wheezing. benzonatate Yes [id number] Take 1-2 [facility] (TESSALON 4-18 capsules ity of PERLES) 100 00:00: three [place] mg capsule 00 times a Medica l day as Branch needed for cough. promethazin 0 Yes [id number] 5mL Take 5 mL [facility] e-dextromet 4-18 by mouth 4 it y of horphan 00:00: (four) [place] 6.25-15 00 times Medical mg/5 mL daily as Branch syrup needed for Cough. lisinopriL 0 Yes [id number] 20mg Take 1 U nivers 20 mg 4-18 tablet by ity of tablet 00:00: mouth in [place] 00 the Medical morning. Branch KCL 10 mEq 2022-0 Yes [id number] 10meq Take 1 [facility] tablet 4-18 tablet by ity of 00:00: mouth in [place] 00 the Medical morning. Branch Take with Lasix atorvastati 2022-0 Yes [id number] 10mg Take 1 [facility] n 10 mg 4-18 tablet by ity of tablet 00:00: mouth at [place] 00 bedtime. Medical Branch apixaban 2022-0 Yes 5mg Take 1 [facility] (ELIQUIS) 5 4-18 tablet by ity of mg tablet 00:00: [place] 00 the Medical morning Branch and 1 tablet in the evening. Indication s: PE fluticasone 2022-0 Yes [id number] 1{puff} Inhale 1 [facility] propion-li 4-18 Puff every it y of meteroL 00:00: 12 [place] (ADVAIR 00 (twelve) Medical DISKUS) hours. Branch 250-50 mcg/dose inhalation disk metFORMIN 2022-0 Yes [id number] 500mg Take 1 [facility] 500 mg 4-18 tablet by ity of tablet 00:00: mouth in [place] 00 the Medical morning Branch and 1 tablet in the evening. Take with meals. albuterol 2022-0 Yes [id number] 2.5mg Inhale 0.5 [facility] 2.5 mg/0.5 4-18 mL every 6 ity of mL 00:00: (six) [place] nebulizer 00 hours as Medica l solution needed for Branc h Wheezing. lisinopriL 2022-0 Yes [id number] 20mg Take 1 U nivers 20 mg 4-18 tablet by ity of tablet 00:00: mouth in [place] 00 the Medical morning. Branch KCL 10 mEq 2022-0 Yes [id number] 10meq Take 1 [facility] tablet 4-18 tablet by ity of 00:00: mouth in [place] 00 the Medical morning. Branch Take with Lasix atorvastati 2022-0 Yes [id number] 10mg Take 1 [facility] n 10 mg 4-18 tablet by ity of tablet 00:00: mouth at [place] [address] bedtime. Medical Branch apixaban 2022-0 Yes 5mg Take 1 [facility] (ELIQUIS) 5 4-18 tablet by ity of mg tablet 00:00: [place] 00 the Medical morning Branch and 1 tablet in the evening. Indication s: PE fluticasone 2022-0 Yes [id number] 1{puff} Inhale 1 [facility] propion-li 4-18 Puff every it y of meteroL 00:00: 12 [place] (ADVAIR 00 (twelve) Medical DISKUS) hours. Branch 250-50 mcg/dose inhalation disk metFORMIN 2022-0 Yes [id number] 500mg Take 1 [facility] 500 mg 4-18 tablet by ity of tablet 00:00: mouth in [place] 00 the Medical morning Branch and 1 tablet in the evening. Take with meals. albuterol 2022-0 Yes [id number] 2.5mg Inhale 0.5 [facility] 2.5 mg/0.5 4-18 mL every 6 ity of mL 00:00: (six) [place] nebulizer 00 hours as Medica l solution needed for Branc h Wheezing. lisinopriL 2022-0 Yes [id number] 20mg Take 1 U nivers 20 mg 4-18 tablet by ity of tablet 00:00: mouth in [place] 00 the Medical morning. Branch KCL 10 mEq 2022-0 Yes [id number] 10meq Take 1 [facility] tablet 4-18 tablet by ity of 00:00: mouth in [place] 00 the Medical morning. Branch Take with Lasix atorvastati 2022-0 Yes [id number] 10mg Take 1 [facility] n 10 mg 4-18 tablet by ity of tablet 00:00: mouth at [place] 00 bedtime. Medical Branch apixaban 2022-0 Yes 5mg Take 1 [facility] (ELIQUIS) 5 4-18 tablet by ity of mg tablet 00:00: [place] 00 the Medical morning Branch and 1 tablet in the evening. Indication s: PE fluticasone 3-0 Yes [id number] 1{puff} Inhale 1 [facility] propion-li 4-18 Puff every it y of meteroL 00:00: 12 [place] (ADVAIR 00 (twelve) Medical DISKUS) hours. Branch 250-50 mcg/dose inhalation disk metFORMIN 2022-0 Yes [id number] 500mg Take 1 [facility] 500 mg 4-18 tablet by ity of tablet 00:00: mouth in [place] 00 the Medical morning Branch and 1 tablet in the evening. Take with meals. albuterol 2022-0 Yes [id number] 2.5mg Inhale 0.5 [facility] 2.5 mg/0.5 4-18 mL every 6 ity of mL 00:00: (six) [place] nebulizer 00 hours as Medica l solution needed for Branc h Wheezing. lisinopriL 2022-0 Yes [id number] 20mg Take 1 U nivers 20 mg 4-18 tablet by ity of tablet 00:00: mouth in [place] 00 the Medical morning. Branch KCL 10 mEq 2022-0 Yes [id number] 10meq Take 1 [facility] tablet 4-18 tablet by ity of 00:00: mouth in [place] 00 the Medical morning. Branch Take with Lasix atorvastati 2022-0 Yes [id number] 10mg Take 1 [facility] n 10 mg 4-18 tablet by ity of tablet 00:00: mouth at [place] [address] bedtime. Medical Branch apixaban 2022-0 Yes 5mg Take 1 [facility] (ELIQUIS) 5 4-18 tablet by ity of mg tablet 00:00: mouth in [place] [facility] the Medical morning Branch and 1 tablet in the evening. Indication s: PE fluticasone 2022-0 Yes [id number] 1{puff} Inhale 1 [facility] propion-li 4-18 Puff every it y of meteroL 00:00: 12 [place] (ADVAIR 00 (twelve) Medical DISKUS) hours. Branch 250-50 mcg/dose inhalation disk metFORMIN 2022-0 Yes [id number] 500mg Take 1 [facility] 500 mg 4-18 tablet by ity of tablet 00:00: mouth in [place] the morning Branch and 1 tablet in the evening. Take with meals. albuterol 2022-0 Yes [id number] 2.5mg Inhale 0.5 [facility] 2.5 mg/0.5 4-18 mL every 6 ity of mL 00:00: (six) [place] nebulizer 00 hours as Medica l solution needed for Branc h Wheezing. lisinopriL 2022-0 Yes [id number] 20mg Take 1 U nivers 20 mg 4-18 tablet by ity of tablet 00:00: mouth in [place] 00 the Medical morning. Branch KCL 10 mEq 2022-0 Yes [id number] 10meq Take 1 [facility] tablet 4-18 tablet by ity of 00:00: mouth in [place] 00 the Medical morning. Branch Take with Lasix atorvastati 0 Yes [id number] 10mg Take 1 [facility] n 10 mg 4-18 tablet by ity of tablet 00:00: mouth at [place] 00 bedtime. Medical Branch apixaban 0 Yes 5mg Take 1 [facility] (ELIQUIS) 5 4-18 tablet by ity of mg tablet 00:00: [place] 00 the Medical morning Branch and 1 tablet in the evening. Indication s: PE fluticasone 2022-0 Yes [id number] 1{puff} Inhale 1 [facility] propion-li 4-18 Puff every it y of meteroL 00:00: 12 [place] (ADVAIR 00 (twelve) Medical DISKUS) hours. Branch 250-50 mcg/dose inhalation disk metFORMIN Yes [id number] 500mg Take 1 [facility] 500 mg 4-18 tablet by ity of tablet 00:00: mouth in [place] 00 the Medical morning Branch and 1 tablet in the evening. Take with meals. albuterol Yes [id number] 2.5mg Inhale 0.5 [facility] 2.5 mg/0.5 4-18 mL every 6 ity of mL 00:00: (six) [place] nebulizer 00 hours as Medica l solution needed for Branc h Wheezing. lisinopriL Yes [id number] 20mg Take 1 U nivers 20 mg 4-18 tablet by ity of tablet 00:00: mouth in [place] 00 the Medical morning. Branch KCL 10 mEq 0 Yes [id number] 10meq Take 1 [facility] tablet 4-18 tablet by ity of 00:00: mouth in [place] 00 the Medical morning. Branch Take with Lasix atorvastati 0 Yes [id number] 10mg Take 1 [facility] n 10 mg 4-18 tablet by ity of tablet 00:00: mouth at [place] [address] bedtime. Medical Branch apixaban 0 Yes 5mg Take 1 [facility] (ELIQUIS) 5 4-18 tablet by ity of mg tablet 00:00: [facility] Branch and 1 tablet in the evening. Indication s: PE fluticasone 2022-0 Yes [id number] 1{puff} Inhale 1 [facility] propion-li 4-18 Puff every it y of meteroL 00:00: 12 [place] (ADVAIR 00 (twelve) Medical DISKUS) hours. Branch 250-50 mcg/dose inhalation disk metFORMIN 2022-0 Yes [id number] 500mg Take 1 [facility] 500 mg 4-18 tablet by ity of tablet 00:00: mouth in [place] 00 the Medical morning Branch and 1 tablet in the evening. Take with meals. albuterol 2022-0 Yes [id number] 2.5mg Inhale 0.5 [facility] 2.5 mg/0.5 4-18 mL every 6 ity of mL 00:00: (six) [place] nebulizer 00 hours as Medica l solution needed for Branc h Wheezing. lisinopriL 2022-0 Yes [id number] 20mg Take 1 U nivers 20 mg 4-18 tablet by ity of tablet 00:00: mouth in [place] 00 the Medical morning. Branch KCL 10 mEq 2022-0 Yes [id number] 10meq Take 1 [facility] tablet 4-18 tablet by ity of 00:00: mouth in [place] 00 the Medical morning. Branch Take with Lasix atorvastati 2022-0 Yes [id number] 10mg Take 1 [facility] n 10 mg 4-18 tablet by ity of tablet 00:00: mouth at [place] 00 bedtime. Medical Branch apixaban 2022-0 Yes 5mg Take 1 [facility] (ELIQUIS) 5 4-18 tablet by ity of mg tablet 00:00: mouth in [facility] 00 the Medical morning Branch and 1 tablet in the evening. Indication s: PE fluticasone 2022-0 Yes [id number] 1{puff} Inhale 1 [facility] propion-li 4-18 Puff every it y of meteroL 00:00: 12 [place] (ADVAIR 00 (twelve) Medical DISKUS) hours. Branch 250-50 mcg/dose inhalation disk metFORMIN 2022-0 Yes [id number] 500mg Take 1 [facility] 500 mg 4-18 tablet by ity of tablet 00:00: mouth in [place] 00 the Medical morning Branch and 1 tablet in the evening. Take with meals. albuterol 2022-0 Yes [id number] 2.5mg Inhale 0.5 Univers 2.5 mg/0.5 4-18 mL every 6 ity of mL 00:00: (six) [place] nebulizer 00 hours as Medica l solution needed for Branc h Wheezing. lisinopriL 2022-0 Yes [id number] 20mg Take 1 U nivers 20 mg 4-18 tablet by ity of tablet 00:00: mouth in [place] 00 the Medical morning. Branch KCL 10 mEq 2022-0 Yes [id number] 10meq Take 1 [facility] tablet 4-18 tablet by ity of 00:00: mouth in [place] 00 the Medical morning. Branch Take with Lasix atorvastati 2022-0 Yes [id number] 10mg Take 1 [facility] n 10 mg 4-18 tablet by ity of tablet 00:00: mouth at [place] [address] bedtime. Medical Branch apixaban 2022-0 Yes 5mg Take 1 [facility] (ELIQUIS) 5 4-18 tablet by ity of mg tablet 00:00: mouth in [facility] 00 the Medical morning Branch and 1 tablet in the evening. Indication s: PE fluticasone 2022-0 Yes [id number] 1{puff} Inhale 1 [facility] propion-li 4-18 Puff every it y of meteroL 00:00: 12 [place] (ADVAIR 00 (twelve) Medical DISKUS) hours. Branch 250-50 mcg/dose inhalation disk metFORMIN 2022-0 Yes [id number] 500mg Take 1 [facility] 500 mg 4-18 tablet by ity of tablet 00:00: mouth in [place] 00 the Medical morning Branch and 1 tablet in the evening. Take with meals. albuterol 2022-0 Yes [id number] 2.5mg Inhale 0.5 Univers 2.5 mg/0.5 4-18 mL every 6 ity of mL 00:00: (six) [place] nebulizer 00 hours as Medica l solution needed for Branc h Wheezing. lisinopriL 2022-0 Yes [id number] 20mg Take 1 U nivers 20 mg 4-18 tablet by ity of tablet 00:00: mouth in [place] 00 the Medical morning. Branch KCL 10 mEq 2022-0 Yes [id number] 10meq Take 1 [facility] tablet 4-18 tablet by ity of 00:00: mouth in [place] 00 the Medical morning. Branch Take with Lasix atorvastati 2022-0 Yes [id number] 10mg Take 1 [facility] n 10 mg 4-18 tablet by ity of tablet 00:00: mouth at [place] 00 bedtime. Medical Branch apixaban 2022-0 Yes 5mg Take 1 [facility] (ELIQUIS) 5 4-18 tablet by ity of mg tablet 00:00: [facility] Branch and 1 tablet in the evening. Indication s: PE fluticasone 2022-0 Yes [id number] 1{puff} Inhale 1 [facility] propion-li 4-18 Puff every it y of meteroL 00:00: 12 [place] (ADVAIR 00 (twelve) Medical DISKUS) hours. Branch 250-50 mcg/dose inhalation disk metFORMIN 2022-0 Yes [id number] 500mg Take 1 [facility] 500 mg 4-18 tablet by ity of tablet 00:00: mouth in [place] 00 the Medical morning Branch and 1 tablet in the evening. Take with meals. albuterol 2022-0 Yes [id number] 2.5mg Inhale 0.5 [facility] 2.5 mg/0.5 4-18 mL every 6 ity of mL 00:00: (six) [place] nebulizer 00 hours as Medica l solution needed for Branc h Wheezing. lisinopriL 0 Yes [id number] 20mg Take 1 U nivers 20 mg 4-18 tablet by ity of tablet 00:00: mouth in [place] 00 the Medical morning. Branch KCL 10 mEq 0 Yes [id number] 10meq Take 1 [facility] tablet 4-18 tablet by ity of 00:00: mouth in [place] 00 the Medical morning. Branch Take with Lasix atorvastati 0 Yes [id number] 10mg Take 1 [facility] n 10 mg 4-18 tablet by ity of tablet 00:00: mouth at [place] 00 bedtime. Medical Branch apixaban 0 Yes 5mg Take 1 [facility] (ELIQUIS) 5 4-18 tablet by ity of mg tablet 00:00: mouth in [facility] 00 the Medical morning Branch and 1 tablet in the evening. Indication s: PE fluticasone 2022-0 Yes [id number] 1{puff} Inhale 1 [facility] propion-li 4-18 Puff every it y of meteroL 00:00: 12 [place] (ADVAIR 00 (twelve) Medical DISKUS) hours. Branch 250-50 mcg/dose inhalation disk metFORMIN 2022-0 Yes [id number] 500mg Take 1 [facility] 500 mg 4-18 tablet by ity of tablet 00:00: mouth in [place] 00 the Medical morning Branch and 1 tablet in the evening. Take with meals. albuterol 2022-0 Yes [id number] 2.5mg Inhale 0.5 [facility] 2.5 mg/0.5 4-18 mL every 6 ity of mL 00:00: (six) [place] nebulizer 00 hours as Medica l solution needed for Branc h Wheezing. lisinopriL 2022-0 Yes [id number] 20mg Take 1 U nivers 20 mg 4-18 tablet by ity of tablet 00:00: mouth in [place] 00 the Medical morning. Branch KCL 10 mEq 2022-0 Yes [id number] 10meq Take 1 [facility] tablet 4-18 tablet by ity of 00:00: mouth in [place] 00 the morning. Branch Take with Lasix atorvastati 0 Yes [id number] 10mg Take 1 [facility] n 10 mg 4-18 tablet by ity of tablet 00:00: mouth at [place] [address] bedtime. Medical Branch apixaban 0 Yes 5mg Take 1 [facility] (ELIQUIS) 5 4-18 tablet by ity of mg tablet 00:00: mouth in [facility] 00 the Medical morning Branch and 1 tablet in the evening. Indication s: PE fluticasone 2022-0 Yes [id number] 1{puff} Inhale 1 [facility] propion-li 4-18 Puff every it y of meteroL 00:00: 12 [place] (ADVAIR 00 (twelve) Medical DISKUS) hours. Branch 250-50 mcg/dose inhalation disk metFORMIN 2022-0 Yes [id number] 500mg Take 1 [facility] 500 mg 4-18 tablet by ity of tablet 00:00: mouth in [place] 00 the Medical morning Branch and 1 tablet in the evening. Take with meals. albuterol 2022-0 Yes [id number] 2.5mg Inhale 0.5 [facility] 2.5 mg/0.5 4-18 mL every 6 ity of mL 00:00: (six) [place] nebulizer 00 hours as Medica l solution needed for Branc h Wheezing. lisinopriL 2022-0 Yes [id number] 20mg Take 1 U nivers 20 mg 4-18 tablet by ity of tablet 00:00: mouth in [place] 00 the Medical morning. Branch KCL 10 mEq 2022-0 Yes [id number] 10meq Take 1 [facility] tablet 4-18 tablet by ity of 00:00: mouth in [place] 00 the morning. Branch Take with Lasix atorvastati 2022-0 Yes [id number] 10mg Take 1 [facility] n 10 mg 4-18 tablet by ity of tablet 00:00: mouth at [place] 00 bedtime. Medical Branch apixaban 2022-0 Yes 5mg Take 1 [facility] (ELIQUIS) 5 4-18 tablet by ity of mg tablet 00:00: [place] 00 the Medical morning Branch and 1 tablet in the evening. Indication s: PE fluticasone 2022-0 Yes [id number] 1{puff} Inhale 1 [facility] propion-li 4-18 Puff every it y of meteroL 00:00: 12 [place] (ADVAIR 00 (twelve) Medical DISKUS) hours. Branch 250-50 mcg/dose inhalation disk metFORMIN 2022-0 Yes [id number] 500mg Take 1 [facility] 500 mg 4-18 tablet by ity of tablet 00:00: mouth in [place] 00 the Medical morning Branch and 1 tablet in the evening. Take with meals. albuterol 2022-0 Yes [id number] 2.5mg Inhale 0.5 [facility] 2.5 mg/0.5 4-18 mL every 6 ity of mL 00:00: (six) [place] nebulizer 00 hours as Medica l solution needed for Branc h Wheezing. lisinopriL 2022-0 Yes [id number] 20mg Take 1 U nivers 20 mg 4-18 tablet by ity of tablet 00:00: mouth in [place] 00 the morning. Branch KCL 10 mEq 2022-0 Yes [id number] 10meq Take 1 [facility] tablet 4-18 tablet by ity of 00:00: mouth in [place] 00 the Medical morning. Branch Take with Lasix atorvastati 2022-0 Yes [id number] 10mg Take 1 [facility] n 10 mg 4-18 tablet by ity of tablet 00:00: mouth at [place] [address] bedtime. Medical Branch apixaban 2022-0 Yes 5mg Take 1 [facility] (ELIQUIS) 5 4-18 tablet by ity of mg tablet 00:00: mouth in [facility] 00 the Medical morning Branch and 1 tablet in the evening. Indication s: PE fluticasone 2023-0 Yes [id number] 1{puff} Inhale 1 [facility] propion-li 4-18 Puff every it y of meteroL 00:00: 12 [place] (ADVAIR 00 (twelve) Medical DISKUS) hours. Branch 250-50 mcg/dose inhalation disk metFORMIN 3-0 Yes [id number] 500mg Take 1 [facility] 500 mg 4-18 tablet by ity of tablet 00:00: mouth in [place] 00 the Medical morning Branch and 1 tablet in the evening. Take with meals. lisinopriL 2023-0 Yes [id number] 20mg Take 1 U nivers 20 mg 4-18 tablet by ity of tablet 00:00: mouth in [place] 00 the Medical morning. Branch KCL 10 mEq 2022-0 Yes [id number] 10meq Take 1 [facility] tablet 4-18 tablet by ity of 00:00: mouth in [place] 00 the Medical morning. Branch Take with Lasix atorvastati 2022-0 Yes [id number] 10mg Take 1 [facility] n 10 mg 4-18 tablet by ity of tablet 00:00: mouth at [place] 00 bedtime. Medical Branch apixaban 2022-0 Yes 5mg Take 1 [facility] (ELIQUIS) 5 4-18 tablet by ity of mg tablet 00:00: mouth in [facility] 00 the Medical morning Branch and 1 tablet in the evening. Indication s: PE fluticasone 2023-0 Yes [id number] 1{puff} Inhale 1 [facility] propion-li 4-18 Puff every it y of meteroL 00:00: 12 [place] (ADVAIR 00 (twelve) Medical DISKUS) hours. Branch 250-50 mcg/dose inhalation disk metFORMIN 3-0 Yes [id number] 500mg Take 1 [facility] 500 mg 4-18 tablet by ity of tablet 00:00: mouth in [place] 00 the Medical morning Branch and 1 tablet in the evening. Take with meals. lisinopriL 3-0 Yes [id number] 20mg Take 1 [facility] nivers 20 mg 4-18 tablet by ity of tablet 00:00: mouth in [place] 00 the Medical morning. Branch KCL 10 mEq 3-0 Yes [id number] 10meq Take 1 [facility] tablet 4-18 tablet by ity of 00:00: mouth in [place] 00 the Medical morning. Branch Take with Lasix atorvastati 2022-0 Yes [id number] 10mg Take 1 [facility] n 10 mg 4-18 tablet by ity of tablet 00:00: mouth at [place] 00 bedtime. Medical Branch apixaban 2022-0 Yes 5mg Take 1 [facility] (ELIQUIS) 5 4-18 tablet by [facility] of mg tablet 00:00: mouth [place] 00 the Medical morning Branch and 1 tablet in the evening. Indication s: PE fluticasone 2022-0 Yes [id number] 1{puff} Inhale 1 [facility] propion-li 4-18 Puff every it y of meteroL 00:00: 12 [place] (ADVAIR 00 (twelve) Medical DISKUS) hours. Branch 250-50 mcg/dose inhalation disk metFORMIN 2022-0 Yes [id number] 500mg Take 1 [facility] 500 mg 4-18 tablet by ity of tablet 00:00: mouth in [place] 00 the Medical morning Branch and 1 tablet in the evening. Take with meals. lisinopriL 2022-0 Yes [id number] 20mg Take 1 [facility] nivers 20 mg 4-18 tablet by ity of tablet 00:00: mouth in [place] 00 the Medical morning. Branch KCL 10 mEq 2022-0 Yes [id number] 10meq Take 1 [facility] tablet 4-18 tablet by ity of 00:00: mouth in [place] 00 the Medical morning. Branch Take with Lasix atorvastati 2022-0 Yes [id number] 10mg Take 1 [facility] n 10 mg 4-18 tablet by ity of tablet 00:00: mouth at [place] 00 bedtime. Medical Branch apixaban 2022-0 Yes 5mg Take 1 [facility] (ELIQUIS) 5 4-18 tablet by ity of mg tablet 00:00: mouth in [place] 00 the Medical morning Branch and 1 tablet in the evening. Indication s: PE fluticasone 3-0 Yes [id number] 1{puff} Inhale 1 [facility] propion-li 4-18 Puff every it y of meteroL 00:00: 12 [place] (ADVAIR 00 (twelve) Medical DISKUS) hours. Branch 250-50 mcg/dose inhalation disk metFORMIN 3-0 Yes [id number] 500mg Take 1 [facility] 500 mg 4-18 tablet by ity of tablet 00:00: mouth in [place] 00 the Medical morning Branch and 1 tablet in the evening. Take with meals. lisinopriL 2022-0 Yes [id number] 20mg Take 1 [facility] n[facility] 20 mg 4-18 tablet by ity of tablet 00:00: mouth in [place] 00 the Medical morning. Branch KCL 10 mEq 2022-0 Yes [id number] 10meq Take 1 [facility] tablet 4-18 tablet by ity of 00:00: mouth in [place] 00 the Medical morning. Branch Take with Lasix atorvastati 2022-0 Yes [id number] 10mg Take 1 [facility] n 10 mg 4-18 tablet by ity of tablet 00:00: mouth at [place] 00 bedtime. Medical Branch apixaban 2022-0 Yes 5mg Take 1 [facility] (ELIQUIS) 5 4-18 tablet by ity of mg tablet 00:00: mouth in [place] [facility] the Medical morning Branch and 1 tablet in the evening. Indication s: PE fluticasone 2022-0 Yes [id number] 1{puff} Inhale 1 [facility] propion-li 4-18 Puff every it y of meteroL 00:00: 12 [place] (ADVAIR 00 (twelve) Medical DISKUS) hours. Branch 250-50 mcg/dose inhalation disk metFORMIN 2022-0 Yes [id number] 500mg Take 1 [facility] 500 mg 4-18 tablet by ity of tablet 00:00: mouth in [place] the morning Branch and 1 tablet in the evening. Take with meals. lisinopriL 2022-0 Yes [id number] 20mg Take 1 [facility] nivers 20 mg 4-18 tablet by ity of tablet 00:00: mouth in [place] 00 the morning. Branch KCL 10 mEq 2022-0 Yes [id number] 10meq Take 1 [facility] tablet 4-18 tablet by ity of 00:00: mouth in [place] 00 the Medical morning. Branch Take with Lasix atorvastati 2022-0 Yes [id number] 10mg Take 1 [facility] n 10 mg 4-18 tablet by ity of tablet 00:00: mouth at [place] [address] bedtime. Medical Branch apixaban 2022-0 Yes 5mg Take 1 [facility] (ELIQUIS) 5 4-18 tablet by ity of mg tablet 00:00: mouth in [facility] s 00 the Medical morning Branch and 1 tablet in the evening. Indication s: PE fluticasone 2022-0 Yes [id number] 1{puff} Inhale 1 [facility] propion-li 4-18 Puff every it y of meteroL 00:00: 12 [place] (ADVAIR 00 (twelve) Medical DISKUS) hours. Branch 250-50 mcg/dose inhalation disk metFORMIN 2022-0 Yes [id number] 500mg Take 1 [facility] 500 mg 4-18 tablet by ity of tablet 00:00: mouth in [place] 00 the Medical morning Branch and 1 tablet in the evening. Take with meals. lisinopriL 2022-0 Yes [id number] 20mg Take 1 [facility] nivers 20 mg 4-18 tablet by ity of tablet 00:00: mouth in [place] 00 the Medical morning. Branch KCL 10 mEq 2022-0 Yes [id number] 10meq Take 1 [facility] tablet 4-18 tablet by ity of 00:00: mouth in [place] 00 the Medical morning. Branch Take with Lasix atorvastati 2022-0 Yes [id number] 10mg Take 1 [facility] n 10 mg 4-18 tablet by ity of tablet 00:00: mouth at [place] [address] bedtime. Medical Branch apixaban 2022-0 Yes 5mg Take 1 [facility] (ELIQUIS) 5 4-18 tablet by ity of mg tablet 00:00: mouth in [place] [facility] 00 the Medical morning Branch and 1 tablet in the evening. Indication s: PE fluticasone 2022-0 Yes [id number] 1{puff} Inhale 1 [facility] propion-li 4-18 Puff every it y of meteroL 00:00: 12 [place] (ADVAIR 00 (twelve) Medical DISKUS) hours. Branch 250-50 mcg/dose inhalation disk metFORMIN 2022-0 Yes [id number] 500mg Take 1 [facility] 500 mg 4-18 tablet by ity of tablet 00:00: mouth in [place] the Medical morning Branch and 1 tablet in the evening. Take with meals. lisinopriL 3-0 Yes [id number] 20mg Take 1 [facility] nivers 20 mg 4-18 tablet by ity of tablet 00:00: mouth in [place] 00 the Medical morning. Branch KCL 10 mEq 3-0 Yes [id number] 10meq Take 1 [facility] tablet 4-18 tablet by ity of 00:00: mouth in [place] 00 the Medical morning. Branch Take with Lasix atorvastati 2022-0 Yes [id number] 10mg Take 1 [facility] n 10 mg 4-18 tablet by ity of tablet 00:00: mouth at [place] 00 bedtime. Medical Branch apixaban 2023-0 Yes 5mg Take 1 [facility] (ELIQUIS) 5 4-18 tablet by ity of mg tablet 00:00: mouth in [place] 00 the Medical morning Branch and 1 tablet in the evening. Indication s: PE metFORMIN 2023-0 Yes [id number] 500mg Take 1 [facility] 500 mg 4-18 tablet by ity of tablet 00:00: mouth in [place] 00 the Medical morning Branch and 1 tablet in the evening. Take with meals. lisinopriL 2023-0 Yes [id number] 20mg Take 1 [facility] nivers 20 mg 4-18 tablet by ity of tablet 00:00: mouth in [place] 00 the Medical morning. Branch KCL 10 mEq 2022-0 Yes [id number] 10meq Take 1 [facility] tablet 4-18 tablet by ity of 00:00: mouth in [place] 00 the Medical morning. Branch Take with Lasix atorvastati 2022-0 Yes [id number] 10mg Take 1 [facility] n 10 mg 4-18 tablet by ity of tablet 00:00: mouth at [place] 00 bedtime. Medical Branch apixaban 2022-0 Yes 5mg Take 1 [facility] (ELIQUIS) 5 4-18 tablet by ity of mg tablet 00:00: mouth in [place] 00 the Medical morning Branch and 1 tablet in the evening. Indication s: PE metFORMIN 3-0 Yes [id number] 500mg Take 1 [facility] 500 mg 4-18 tablet by ity of tablet 00:00: mouth in [place] 00 the Medical morning Branch and 1 tablet in the evening. Take with meals. lisinopriL 3-0 Yes [id number] 20mg Take 1 [facility] nivers 20 mg 4-18 tablet by ity of tablet 00:00: mouth in [place] 00 the Medical morning. Branch KCL 10 mEq 3-0 Yes [id number] 10meq Take 1 [facility] tablet 4-18 tablet by ity of 00:00: mouth in [place] 00 the Medical morning. Branch Take with Lasix atorvastati 2023-0 Yes [id number] 10mg Take 1 [facility] n 10 mg 4-18 tablet by ity of tablet 00:00: mouth at [place] 00 bedtime. Medical Branch apixaban 2023-0 Yes 5mg Take 1 [facility] (ELIQUIS) 5 4-18 tablet by ity of mg tablet 00:00: mouth in [place] 00 the Medical morning Branch and 1 tablet in the evening. Indication s: PE metFORMIN 2023-0 Yes [id number] 500mg Take 1 [facility] 500 mg 4-18 tablet by ity of tablet 00:00: mouth in [place] 00 the Medical morning Branch and 1 tablet in the evening. Take with meals. lisinopriL 2023-0 Yes [id number] 20mg Take 1 [facility] nivers 20 mg 4-18 tablet by ity of tablet 00:00: mouth in [place] 00 the Medical morning. Branch KCL 10 mEq 3-0 Yes [id number] 10meq Take 1 [facility] tablet 4-18 tablet by ity of 00:00: mouth in [place] 00 the Medical morning. Branch Take with Lasix atorvastati 3-0 Yes [id number] 10mg Take 1 [facility] n 10 mg 4-18 tablet by ity of tablet 00:00: mouth at [place] 00 bedtime. Medical Branch apixaban 3-0 Yes 5mg Take 1 [facility] (ELIQUIS) 5 4-18 tablet by ity of mg tablet 00:00: mouth in [facility] s 00 the Medical morning Branch and 1 tablet in the evening. Indication s: PE metFORMIN 3-0 Yes [id number] 500mg Take 1 [facility] 500 mg 4-18 tablet by ity of tablet 00:00: mouth in [place] 00 the Medical morning Branch and 1 tablet in the evening. Take with meals. lisinopriL 2023-0 Yes [id number] 20mg Take 1 [facility] nivers 20 mg 4-18 tablet by ity of tablet 00:00: mouth in [place] 00 the Medical morning. Branch KCL 10 mEq 3-0 Yes [id number] 10meq Take 1 [facility] tablet 4-18 tablet by ity of 00:00: mouth in [place] 00 the Medical morning. Branch Take with Lasix atorvastati 2023-0 Yes [id number] 10mg Take 1 [facility] n 10 mg 4-18 tablet by ity of tablet 00:00: mouth at [place] [address] bedtime. Medical Branch apixaban 2023-0 Yes 5mg Take 1 [facility] (ELIQUIS) 5 4-18 tablet by ity of mg tablet 00:00: mouth in [facility] s 00 the Medical morning Branch and 1 tablet in the evening. Indication s: PE metFORMIN 3-0 Yes [id number] 500mg Take 1 [facility] 500 mg 4-18 tablet by ity of tablet 00:00: mouth in [place] the Medical morning Branch and 1 tablet in the evening. Take with meals. lisinopriL 3-0 Yes [id number] 20mg Take 1 U nivers 20 mg 4-18 tablet by ity of tablet 00:00: mouth in [place] the Medical morning. Branch KCL 10 mEq 3-0 Yes [id number] 10meq Take 1 [facility] tablet 4-18 tablet by ity of 00:00: mouth in [place] the Medical morning. Branch Take with Lasix atorvastati 3-0 Yes [id number] 10mg Take 1 [facility] n 10 mg 4-18 tablet by ity of tablet 00:00: mouth at [place] [address] bedtime. Medical Branch apixaban 2022-0 Yes 5mg Take 1 [facility] (ELIQUIS) 5 4-18 tablet by ity of mg tablet 00:00: mouth in [facility] the Medical morning Branch and 1 tablet in the evening. Indication s: PE metFORMIN 3-0 Yes [id number] 500mg Take 1 [facility] 500 mg 4-18 tablet by ity of tablet 00:00: mouth in [place] the morning Branch and 1 tablet in the evening. Take with meals. lisinopriL 3-0 Yes [id number] 20mg Take 1 [facility] nivers 20 mg 4-18 tablet by ity of tablet 00:00: mouth in [place] the Medical morning. Branch KCL 10 mEq 3-0 Yes [id number] 10meq Take 1 [facility] tablet 4-18 tablet by ity of 00:00: mouth in [place] the Medical morning. Branch Take with Lasix atorvastati 3-0 Yes [id number] 10mg Take 1 [facility] n 10 mg 4-18 tablet by ity of tablet 00:00: mouth at [place] [address] bedtime. Medical Branch apixaban 3-0 Yes 5mg Take 1 [facility] (ELIQUIS) 5 4-18 tablet by ity of mg tablet 00:00: mouth in [place] [facility] 00 the Medical morning Branch and 1 tablet in the evening. Indication s: PE metFORMIN 3-0 Yes [id number] 500mg Take 1 [facility] 500 mg 4-18 tablet by ity of tablet 00:00: mouth in [place] 00 the Medical morning Branch and 1 tablet in the evening. Take with meals. lisinopriL 3-0 Yes [id number] 20mg Take 1 [facility] nivers 20 mg 4-18 tablet by ity of tablet 00:00: mouth in [place] 00 the Medical morning. Branch KCL 10 mEq 3-0 Yes [id number] 10meq Take 1 [facility] tablet 4-18 tablet by ity of 00:00: mouth in [place] 00 the Medical morning. Branch Take with Lasix atorvastati 3-0 Yes [id number] 10mg Take 1 [facility] n 10 mg 4-18 tablet by ity of tablet 00:00: mouth at [place] 00 bedtime. Medical Branch apixaban 3-0 Yes 5mg Take 1 [facility] (ELIQUIS) 5 4-18 tablet by ity of mg tablet 00:00: mouth in [place] [facility] 00 the Medical morning Branch and 1 tablet in the evening. Indication s: PE metFORMIN 3-0 Yes [id number] 500mg Take 1 [facility] 500 mg 4-18 tablet by ity of tablet 00:00: mouth in [place] 00 the Medical morning Branch and 1 tablet in the evening. Take with meals. lisinopriL 3-0 Yes [id number] 20mg Take 1 U nivers 20 mg 4-18 tablet by ity of tablet 00:00: mouth in [place] the morning. Branch KCL 10 mEq 3-0 Yes [id number] 10meq Take 1 [facility] tablet 4-18 tablet by ity of 00:00: mouth in [place] the Medical morning. Branch Take with Lasix atorvastati 3-0 Yes [id number] 10mg Take 1 [facility] n 10 mg 4-18 tablet by ity of tablet 00:00: mouth at [place] [address] bedtime. Medical Branch apixaban 3-0 Yes 5mg Take 1 [facility] (ELIQUIS) 5 4-18 tablet by ity of mg tablet 00:00: mouth in [place] [facility] 00 the Medical morning Branch and 1 tablet in the evening. Indication s: PE metFORMIN 3-0 Yes [id number] 500mg Take 1 [facility] 500 mg 4-18 tablet by ity of tablet 00:00: mouth in [place] 00 the Medical morning Branch and 1 tablet in the evening. Take with meals. lisinopriL 3-0 Yes [id number] 20mg Take 1 U nivers 20 mg 4-18 tablet by ity of tablet 00:00: mouth in [place] 00 the Medical morning. Branch KCL 10 mEq 2022-0 Yes [id number] 10meq Take 1 [facility] tablet 4-18 tablet by ity of 00:00: mouth in [place] 00 the Medical morning. Branch Take with Lasix atorvastati 2022-0 Yes [id number] 10mg Take 1 [facility] n 10 mg 4-18 tablet by ity of tablet 00:00: mouth at [place] 00 bedtime. Medical Branch apixaban 3-0 Yes 5mg Take 1 [facility] (ELIQUIS) 5 4-18 tablet by ity of mg tablet 00:00: mouth in [facility] s 00 the Medical morning Branch and 1 tablet in the evening. Indication s: PE metFORMIN 3-0 Yes [id number] 500mg Take 1 [facility] 500 mg 4-18 tablet by ity of tablet 00:00: mouth in [place] 00 the Medical morning Branch and 1 tablet in the evening. Take with meals. lisinopriL 2022-0 Yes [id number] 20mg Take 1 U nivers 20 mg 4-18 tablet by ity of tablet 00:00: mouth in [place] 00 the Medical morning. Branch KCL 10 mEq 2022-0 Yes [id number] 10meq Take 1 [facility] tablet 4-18 tablet by ity of 00:00: mouth in [place] 00 the Medical morning. Branch Take with Lasix atorvastati 2022-0 Yes [id number] 10mg Take 1 [facility] n 10 mg 4-18 tablet by ity of tablet 00:00: mouth at [place] 00 bedtime. Medical Branch apixaban 3-0 Yes 5mg Take 1 [facility] (ELIQUIS) 5 4-18 tablet by ity of mg tablet 00:00: mouth [place] 00 the Medical morning Branch and 1 tablet in the evening. Indication s: PE metFORMIN 2023-0 Yes [id number] 500mg Take 1 [facility] 500 mg 4-18 tablet by ity of tablet 00:00: mouth in [place] 00 the Medical morning Branch and 1 tablet in the evening. Take with meals. lisinopriL 2023-0 Yes [id number] 20mg Take 1 U nivers 20 mg 4-18 tablet by ity of tablet 00:00: mouth in [place] the Medical morning. Branch KCL 10 mEq 2022-0 Yes [id number] 10meq Take 1 [facility] tablet 4-18 tablet by ity of 00:00: mouth in [place] the Medical morning. Branch Take with Lasix atorvastati 3-0 Yes [id number] 10mg Take 1 [facility] n 10 mg 4-18 tablet by ity of tablet 00:00: mouth at [place] 00 bedtime. Medical Branch apixaban 3-0 Yes 5mg Take 1 [facility] (ELIQUIS) 5 4-18 tablet by ity of mg tablet 00:00: mouth in [place] 00 the Medical morning Branch and 1 tablet in the evening. Indication s: PE metFORMIN 2023-0 Yes [id number] 500mg Take 1 [facility] 500 mg 4-18 tablet by ity of tablet 00:00: mouth in [place] 00 the Medical morning Branch and 1 tablet in the evening. Take with meals. lisinopriL 3-0 Yes [id number] 20mg Take 1 [facility] nivers 20 mg 4-18 tablet by ity of tablet 00:00: mouth in [place] the Medical morning. Branch KCL 10 mEq 2022-0 Yes [id number] 10meq Take 1 [facility] tablet 4-18 tablet by ity of 00:00: mouth in [place] the Medical morning. Branch Take with Lasix atorvastati 2022-0 Yes [id number] 10mg Take 1 [facility] n 10 mg 4-18 tablet by ity of tablet 00:00: mouth at [place] 00 bedtime. Medical Branch apixaban 3-0 Yes 5mg Take 1 [facility] (ELIQUIS) 5 4-18 tablet by ity of mg tablet 00:00: mouth in [place] 00 the Medical morning Branch and 1 tablet in the evening. Indication s: PE metFORMIN 2023-0 Yes [id number] 500mg Take 1 [facility] 500 mg 4-18 tablet by ity of tablet 00:00: mouth in [place] [address] the Medical morning Branch and 1 tablet in the evening. Take with meals. lisinopriL 2023-0 Yes [id number] 20mg Take 1 U nivers 20 mg 4-18 tablet by ity of tablet 00:00: mouth in [place] 00 the Medical morning. Branch KCL 10 mEq 3-0 Yes [id number] 10meq Take 1 [facility] tablet 4-18 tablet by ity of 00:00: mouth in [place] 00 the Medical morning. Branch Take with Lasix atorvastati 2023-0 Yes [id number] 10mg Take 1 [facility] n 10 mg 4-18 tablet by ity of tablet 00:00: mouth at [place] 00 bedtime. Medical Branch apixaban 2023-0 Yes 5mg Take 1 [facility] (ELIQUIS) 5 4-18 tablet by ity of mg tablet 00:00: mouth in [place] 00 the Medical morning Branch and 1 tablet in the evening. Indication s: PE metFORMIN 2023-0 Yes [id number] 500mg Take 1 [facility] 500 mg 4-18 tablet by ity of tablet 00:00: mouth in [place] 00 the Medical morning Branch and 1 tablet in the evening. Take with meals. lisinopriL 3-0 Yes [id number] 20mg Take 1 U nivers 20 mg 4-18 tablet by ity of tablet 00:00: mouth in [place] 00 the Medical morning. Branch KCL 10 mEq 3-0 Yes [id number] 10meq Take 1 [facility] tablet 4-18 tablet by ity of 00:00: mouth in [place] the Medical morning. Branch Take with Lasix atorvastati 3-0 Yes [id number] 10mg Take 1 [facility] n 10 mg 4-18 tablet by ity of tablet 00:00: mouth at [place] 00 bedtime. Medical Branch apixaban 3-0 Yes 5mg Take 1 [facility] (ELIQUIS) 5 4-18 tablet by ity of mg tablet 00:00: mouth in [facility] s 00 the Medical morning Branch and 1 tablet in the evening. Indication s: PE metFORMIN 2023-0 Yes [id number] 500mg Take 1 [facility] 500 mg 4-18 tablet by ity of tablet 00:00: mouth in [place] 00 the Medical morning Branch and 1 tablet in the evening. Take with meals. lisinopriL 2023-0 Yes [id number] 20mg Take 1 U nivers 20 mg 4-18 tablet by ity of tablet 00:00: mouth in [place] 00 the Medical morning. Branch KCL 10 mEq 3-0 Yes [id number] 10meq Take 1 [facility] tablet 4-18 tablet by ity of 00:00: mouth in [place] 00 the Medical morning. Branch Take with Lasix atorvastati 2023-0 Yes [id number] 10mg Take 1 [facility] n 10 mg 4-18 tablet by ity of tablet 00:00: mouth at [place] 00 bedtime. Medical Branch apixaban 2022-0 Yes 5mg Take 1 [facility] (ELIQUIS) 5 4-18 tablet by ity of mg tablet 00:00: mouth in [place] 00 the Medical morning Branch and 1 tablet in the evening. Indication s: PE metFORMIN 2022-0 Yes [id number] 500mg Take 1 [facility] 500 mg 4-18 tablet by ity of tablet 00:00: mouth in [place] 00 the Medical morning Branch and 1 tablet in the evening. Take with meals. lisinopriL 2022-0 Yes [id number] 20mg Take 1 U nivers 20 mg 4-18 tablet by ity of tablet 00:00: mouth in [place] 00 the Medical morning. Branch KCL 10 mEq 2022-0 Yes [id number] 10meq Take 1 [facility] tablet 4-18 tablet by ity of 00:00: mouth in [place] 00 the Medical morning. Branch Take with Lasix atorvastati 2022-0 Yes [id number] 10mg Take 1 [facility] n 10 mg 4-18 tablet by ity of tablet 00:00: mouth at [place] 00 bedtime. Medical Branch apixaban 2022-0 Yes 5mg Take 1 [facility] (ELIQUIS) 5 4-18 tablet by ity of mg tablet 00:00: mouth in [place] 00 the Medical morning Branch and 1 tablet in the evening. Indication s: PE metFORMIN 2022-0 Yes [id number] 500mg Take 1 [facility] 500 mg 4-18 tablet by ity of tablet 00:00: mouth in [place] 00 the Medical morning Branch and 1 tablet in the evening. Take with meals. lisinopriL 3-0 Yes [id number] 20mg Take 1 U nivers 20 mg 4-18 tablet by ity of tablet 00:00: mouth in [place] 00 the Medical morning. Branch KCL 10 mEq 2022-0 Yes [id number] 10meq Take 1 [facility] tablet 4-18 tablet by ity of 00:00: mouth in [place] 00 the Medical morning. Branch Take with Lasix atorvastati 2022-0 Yes [id number] 10mg Take 1 [facility] n 10 mg 4-18 tablet by ity of tablet 00:00: mouth at [place] 00 bedtime. Medical Branch apixaban 2023-0 Yes 5mg Take 1 [facility] (ELIQUIS) 5 4-18 tablet by ity of mg tablet 00:00: mouth in [place] 00 the Medical morning Branch and 1 tablet in the evening. Indication s: PE metFORMIN 2023-0 Yes [id number] 500mg Take 1 [facility] 500 mg 4-18 tablet by ity of tablet 00:00: mouth in [place] 00 the Medical morning Branch and 1 tablet in the evening. Take with meals. lisinopriL 2023-0 Yes [id number] 20mg Take 1 U nivers 20 mg 4-18 tablet by ity of tablet 00:00: mouth in [place] 00 the Medical morning. Branch KCL 10 mEq 3-0 Yes [id number] 10meq Take 1 [facility] tablet 4-18 tablet by ity of 00:00: mouth in [place] 00 the Medical morning. Branch Take with Lasix atorvastati 3-0 Yes [id number] 10mg Take 1 [facility] n 10 mg 4-18 tablet by ity of tablet 00:00: mouth at [place] 00 bedtime. Medical Branch apixaban 3-0 Yes 5mg Take 1 [facility] (ELIQUIS) 5 4-18 tablet by ity of mg tablet 00:00: mouth in [place] 00 the Medical morning Branch and 1 tablet in the evening. Indication s: PE metFORMIN 3-0 Yes [id number] 500mg Take 1 [facility] 500 mg 4-18 tablet by ity of tablet 00:00: mouth in [place] 00 the Medical morning Branch and 1 tablet in the evening. Take with meals. lisinopriL 2023-0 Yes [id number] 20mg Take 1 U nivers 20 mg 4-18 tablet by ity of tablet 00:00: mouth in [place] 00 the Medical morning. Branch KCL 10 mEq 3-0 Yes [id number] 10meq Take 1 [facility] tablet 4-18 tablet by ity of 00:00: mouth in [place] 00 the Medical morning. Branch Take with Lasix atorvastati 2023-0 Yes [id number] 10mg Take 1 [facility] n 10 mg 4-18 tablet by ity of tablet 00:00: mouth at [place] 00 bedtime. Medical Branch apixaban 2023-0 Yes 5mg Take 1 [facility] (ELIQUIS) 5 4-18 tablet by ity of mg tablet 00:00: mouth in [place] 00 the Medical morning Branch and 1 tablet in the evening. Indication s: PE metFORMIN 3-0 Yes [id number] 500mg Take 1 [facility] 500 mg 4-18 tablet by ity of tablet 00:00: mouth in [place] the morning Branch and 1 tablet in the evening. Take with meals. lisinopriL 3-0 Yes [id number] 20mg Take 1 U nivers 20 mg 4-18 tablet by ity of tablet 00:00: mouth in [place] the morning. Branch KCL 10 mEq 2022-0 Yes [id number] 10meq Take 1 [facility] tablet 4-18 tablet by ity of 00:00: mouth in [place] the morning. Branch Take with Lasix atorvastati 3-0 Yes [id number] 10mg Take 1 [facility] n 10 mg 4-18 tablet by ity of tablet 00:00: mouth at [place] [address] bedtime. Medical Branch apixaban 2022-0 Yes 5mg Take 1 [facility] (ELIQUIS) 5 4-18 tablet by ity of mg tablet 00:00: mouth in [facility] the Medical morning Branch and 1 tablet in the evening. Indication s: PE metFORMIN 2022-0 Yes [id number] 500mg Take 1 [facility] 500 mg 4-18 tablet by ity of tablet 00:00: mouth in [place] the morning Branch and 1 tablet in the evening. Take with meals. lisinopriL 3-0 Yes [id number] 20mg Take 1 U nivers 20 mg 4-18 tablet by ity of tablet 00:00: mouth in [place] the morning. Branch KCL 10 mEq 2022-0 Yes [id number] 10meq Take 1 [facility] tablet 4-18 tablet by ity of 00:00: mouth in [place] the morning. Branch Take with Lasix atorvastati 3-0 Yes [id number] 10mg Take 1 [facility] n 10 mg 4-18 tablet by ity of tablet 00:00: mouth at [place] [address] bedtime. Medical Branch apixaban 3-0 Yes 5mg Take 1 [facility] (ELIQUIS) 5 4-18 tablet by ity of mg tablet 00:00: mouth in [facility] the Medical morning Branch and 1 tablet in the evening. Indication s: PE metFORMIN 3-0 Yes [id number] 500mg Take 1 [facility] 500 mg 4-18 tablet by ity of tablet 00:00: mouth in [place] 00 the Medical morning Branch and 1 tablet in the evening. Take with meals. lisinopriL 2022-0 Yes [id number] 20mg Take 1 [facility] nivers 20 mg 4-18 tablet by ity of tablet 00:00: mouth in [place] the Medical morning. Branch KCL 10 mEq 2022-0 Yes [id number] 10meq Take 1 [facility] tablet 4-18 tablet by ity of 00:00: mouth in [place] the morning. Branch Take with Lasix atorvastati 2022-0 Yes [id number] 10mg Take 1 [facility] n 10 mg 4-18 tablet by ity of tablet 00:00: mouth at [place] [address] bedtime. Medical Branch apixaban 2022-0 Yes 5mg Take 1 [facility] (ELIQUIS) 5 4-18 tablet by ity of mg tablet 00:00: mouth in [facility] the Medical morning Branch and 1 tablet in the evening. Indication s: PE metFORMIN 3-0 Yes [id number] 500mg Take 1 [facility] 500 mg 4-18 tablet by ity of tablet 00:00: mouth in [place] the Medical morning Branch and 1 tablet in the evening. Take with meals. lisinopriL 2022-0 Yes [id number] 20mg Take 1 [facility] 20 mg 4-18 tablet by [facility] tablet 00:00: mouth in [place] the morning. Branch KCL 10 mEq 2022-0 Yes [id number] 10meq Take 1 [facility] tablet 4-18 tablet by [facility] of 00:00: mouth in [place] the morning. Branch Take with Lasix atorvastati 2022-0 Yes [id number] 10mg Take 1 [facility] n 10 mg 4-18 tablet by [facility] of tablet 00:00: mouth at [place] [address] bedtime. Medical Branch apixaban 3-0 Yes 5mg Take 1 [facility] (ELIQUIS) 5 4-18 tablet by [facility] of mg tablet 00:00: mouth in [facility] 00 the Medical morning Branch and 1 tablet in the evening. Indication s: PE metFORMIN 2023-0 Yes [id number] 500mg Take 1 [facility] 500 mg 4-18 tablet by [facility] of tablet 00:00: mouth in [place] [address] the Medical morning Branch and 1 tablet in the evening. Take with meals. lisinopriL 3-0 Yes [id number] 20mg Take 1 [facility] 20 mg 4-18 tablet by [facility] of tablet 00:00: mouth in [place] 00 the Medical morning. Branch KCL 10 mEq 2022-0 Yes [id number] 10meq Take 1 [facility] tablet 4-18 tablet by [facility] of 00:00: mouth in [place] 00 the Medical morning. Branch Take with Lasix atorvastati 2022-0 Yes [id number] 10mg Take 1 [facility] n 10 mg 4-18 tablet by [facility] of tablet 00:00: mouth at [place] 00 bedtime. Medical Branch apixaban 2022-0 Yes 5mg Take 1 [facility] (ELIQUIS) 5 4-18 tablet by [facility] mg tablet 00:00: mouth [facility] the Medical morning Branch and 1 tablet in the evening. Indication s: PE metFORMIN 3-0 Yes [id number] 500mg Take 1 [facility] 500 mg 4-18 tablet by [facility] of tablet 00:00: mouth in [place] 00 the Medical morning Branch and 1 tablet in the evening. Take with meals. lisinopriL 2022-0 Yes [id number] 20mg Take 1 [facility] 20 mg 4-18 tablet by [facility] of tablet 00:00: mouth in [place] 00 the Medical morning. Branch KCL 10 mEq 2022-0 Yes [id number] 10meq Take 1 [facility] tablet 4-18 tablet by [facility] of 00:00: mouth in [place] 00 the Medical morning. Branch Take with Lasix atorvastati 2022-0 Yes [id number] 10mg Take 1 [facility] n 10 mg 4-18 tablet by [facility] of tablet 00:00: mouth at [place] 00 bedtime. Medical Branch apixaban 3-0 Yes 5mg Take 1 [facility] (ELIQUIS) 5 4-18 tablet by [facility] mg tablet 00:00: mouth [place] 00 the Medical morning Branch and 1 tablet in the evening. Indication s: PE metFORMIN 2023-0 Yes [id number] 500mg Take 1 [facility] 500 mg 4-18 tablet by [facility] of tablet 00:00: mouth in [place] 00 the Medical morning Branch and 1 tablet in the evening. Take with meals. lisinopriL 3-0 Yes [id number] 20mg Take 1 [facility] 20 mg 4-18 tablet by [facility] of tablet 00:00: mouth in [place] 00 the Medical morning. Branch KCL 10 mEq 2022-0 Yes [id number] 10meq Take 1 [facility] tablet 4-18 tablet by [facility] of 00:00: mouth in [place] the Medical morning. Branch Take with Lasix atorvastati 2022-0 Yes [id number] 10mg Take 1 [facility] n 10 mg 4-18 tablet by [facility] of tablet 00:00: mouth at [place] 00 bedtime. Medical Branch apixaban 3-0 Yes 5mg Take 1 [facility] (ELIQUIS) 5 4-18 tablet by [facility] mg tablet 00:00: mouth [place] 00 the Medical morning Branch and 1 tablet in the evening. Indication s: PE metFORMIN 3-0 Yes [id number] 500mg Take 1 [facility] 500 mg 4-18 tablet by [facility] of tablet 00:00: mouth in [place] 00 the Medical morning Branch and 1 tablet in the evening. Take with meals. lisinopriL 3-0 Yes [id number] 20mg Take 1 [facility] 20 mg 4-18 tablet by [facility] of tablet 00:00: mouth in [place] the Medical morning. Branch KCL 10 mEq 2022-0 Yes [id number] 10meq Take 1 [facility] tablet 4-18 tablet by [facility] of 00:00: mouth in [place] the Medical morning. Branch Take with Lasix atorvastati 2022-0 Yes [id number] 10mg Take 1 [facility] n 10 mg 4-18 tablet by [facility] of tablet 00:00: mouth at [place] 00 bedtime. Medical Branch apixaban 3-0 Yes 5mg Take 1 [facility] (ELIQUIS) 5 4-18 tablet by [facility] mg tablet 00:00: mouth [place] 00 the Medical morning Branch and 1 tablet in the evening. Indication s: PE metFORMIN 2023-0 Yes [id number] 500mg Take 1 [facility] 500 mg 4-18 tablet by [facility] of tablet 00:00: mouth in [place] 00 the Medical morning Branch and 1 tablet in the evening. Take with meals. lisinopriL 2023-0 Yes [id number] 20mg Take 1 [facility] 20 mg 4-18 tablet by [facility] of tablet 00:00: mouth in [place] 00 the Medical morning. Branch KCL 10 mEq 3-0 Yes [id number] 10meq Take 1 [facility] tablet 4-18 tablet by [facility] of 00:00: mouth in [place] 00 the Medical morning. Branch Take with Lasix atorvastati 2023-0 Yes [id number] 10mg Take 1 [facility] n 10 mg 4-18 tablet by [facility] of tablet 00:00: mouth at [place] 00 bedtime. Medical Branch apixaban 3-0 Yes 5mg Take 1 [facility] (ELIQUIS) 5 4-18 tablet by ity of mg tablet 00:00: mouth in [facility] s 00 the Medical morning Branch and 1 tablet in the evening. Indication s: PE metFORMIN 2023-0 Yes [id number] 500mg Take 1 [facility] 500 mg 4-18 tablet by it[facility] of tablet 00:00: mouth in [place] 00 the Medical morning Branch and 1 tablet in the evening. Take with meals. lisinopriL 3-0 Yes [id number] 20mg Take 1 [facility] 20 mg 4-18 tablet by [facility] of tablet 00:00: mouth in [place] the Medical morning. Branch KCL 10 mEq 3-0 Yes [id number] 10meq Take 1 [facility] tablet 4-18 tablet by [facility] of 00:00: mouth in [place] the Medical morning. Branch Take with Lasix atorvastati 3-0 Yes [id number] 10mg Take 1 [facility] n 10 mg 4-18 tablet by it[facility] of tablet 00:00: mouth at [place] [address] bedtime. Medical Branch apixaban 3-0 Yes 5mg Take 1 [facility] (ELIQUIS) 5 4-18 tablet by [facility] of mg tablet 00:00: mouth in [facility] 00 the Medical morning Branch and 1 tablet in the evening. Indication s: PE metFORMIN 3-0 Yes [id number] 500mg Take 1 [facility] 500 mg 4-18 tablet by [facility] of tablet 00:00: mouth in [place] 00 the Medical morning Branch and 1 tablet in the evening. Take with meals. lisinopriL 2023-0 Yes [id number] 20mg Take 1 [facility] 20 mg 4-18 tablet by [facility] of tablet 00:00: mouth in [place] 00 the Medical morning. Branch KCL 10 mEq 3-0 Yes [id number] 10meq Take 1 [facility] tablet 4-18 tablet by [facility] of 00:00: mouth in [place] 00 the Medical morning. Branch Take with Lasix atorvastati 2023-0 Yes [id number] 10mg Take 1 [facility] n 10 mg 4-18 tablet by [facility] of tablet 00:00: mouth at [place] 00 bedtime. Medical Branch apixaban 3-0 Yes 5mg Take 1 [facility] (ELIQUIS) 5 4-18 tablet by [facility] mg tablet 00:00: mouth [place] 00 the Medical morning Branch and 1 tablet in the evening. Indication s: PE metFORMIN 2023-0 Yes [id number] 500mg Take 1 [facility] 500 mg 4-18 tablet by [facility] of tablet 00:00: mouth in [place] 00 the Medical morning Branch and 1 tablet in the evening. Take with meals. lisinopriL 3-0 Yes [id number] 20mg Take 1 [facility] 20 mg 4-18 tablet by [facility] of tablet 00:00: mouth in [place] 00 the Medical morning. Branch KCL 10 mEq 2022-0 Yes [id number] 10meq Take 1 [facility] tablet 4-18 tablet by [facility] of 00:00: mouth in [place] 00 the Medical morning. Branch Take with Lasix atorvastati 2022-0 Yes [id number] 10mg Take 1 [facility] n 10 mg 4-18 tablet by [facility] of tablet 00:00: mouth at [place] 00 bedtime. Medical Branch apixaban 2022-0 Yes 5mg Take 1 [facility] (ELIQUIS) 5 4-18 tablet by ity of mg tablet 00:00: mouth in [facility] 00 the Medical morning Branch and 1 tablet in the evening. Indication s: PE metFORMIN 3-0 Yes [id number] 500mg Take 1 [facility] 500 mg 4-18 tablet by it[facility] of tablet 00:00: mouth in [place] 00 the Medical morning Branch and 1 tablet in the evening. Take with meals. lisinopriL 3-0 Yes [id number] 20mg Take 1 [facility] nivers 20 mg 4-18 tablet by [facility] of tablet 00:00: mouth in [place] 00 the Medical morning. Branch KCL 10 mEq 3-0 Yes [id number] 10meq Take 1 [facility] tablet 4-18 tablet by [facility] of 00:00: mouth in [place] 00 the Medical morning. Branch Take with Lasix atorvastati 3-0 Yes [id number] 10mg Take 1 [facility] n 10 mg 4-18 tablet by [facility] of tablet 00:00: mouth at [place] 00 bedtime. Medical Branch apixaban 2023-0 Yes 5mg Take 1 [facility] (ELIQUIS) 5 4-18 tablet by [facility] mg tablet 00:00: mouth [place] 00 the Medical morning Branch and 1 tablet in the evening. Indication s: PE metFORMIN 2023-0 Yes [id number] 500mg Take 1 [facility] 500 mg 4-18 tablet by [facility] of tablet 00:00: mouth in [place] 00 the Medical morning Branch and 1 tablet in the evening. Take with meals. lisinopriL 2023-0 Yes [id number] 20mg Take 1 [facility] 20 mg 4-18 tablet by [facility] of tablet 00:00: mouth in [place] 00 the Medical morning. Branch KCL 10 mEq 3-0 Yes [id number] 10meq Take 1 [facility] tablet 4-18 tablet by [facility] of 00:00: mouth in [place] 00 the Medical morning. Branch Take with Lasix atorvastati 3-0 Yes [id number] 10mg Take 1 [facility] n 10 mg 4-18 tablet by ity of tablet 00:00: mouth at [place] 00 bedtime. Medical Branch apixaban 3-0 Yes 5mg Take 1 [facility] (ELIQUIS) 5 4-18 tablet by ity of mg tablet 00:00: mouth in [facility] s 00 the Medical morning Branch and 1 tablet in the evening. Indication s: PE metFORMIN 2023-0 Yes [id number] 500mg Take 1 [facility] 500 mg 4-18 tablet by ity of tablet 00:00: mouth in [place] 00 the Medical morning Branch and 1 tablet in the evening. Take with meals. lisinopriL 3-0 Yes [id number] 20mg Take 1 [facility] nivers 20 mg 4-18 tablet by [facility] of tablet 00:00: mouth in [place] 00 the Medical morning. Branch KCL 10 mEq 3-0 Yes [id number] 10meq Take 1 [facility] tablet 4-18 tablet by it[facility] of 00:00: mouth in [place] 00 the Medical morning. Branch Take with Lasix atorvastati 2023-0 Yes [id number] 10mg Take 1 [facility] n 10 mg 4-18 tablet by it[facility] of tablet 00:00: mouth at [place] 00 bedtime. Medical Branch apixaban 2023-0 Yes 5mg Take 1 [facility] (ELIQUIS) 5 4-18 tablet by [facility] of mg tablet 00:00: mouth [place] 00 the Medical morning Branch and 1 tablet in the evening. Indication s: PE metFORMIN 2023-0 Yes [id number] 500mg Take 1 [facility] 500 mg 4-18 tablet by ity of tablet 00:00: mouth in [place] the morning Branch and 1 tablet in the evening. Take with meals. lisinopriL 3-0 Yes [id number] 20mg Take 1 [facility] nivers 20 mg 4-18 tablet by ity of tablet 00:00: mouth in [place] the morning. Branch KCL 10 mEq 3-0 Yes [id number] 10meq Take 1 [facility] tablet 4-18 tablet by ity of 00:00: mouth in [place] the morning. Branch Take with Lasix atorvastati 3-0 Yes [id number] 10mg Take 1 [facility] n 10 mg 4-18 tablet by ity of tablet 00:00: mouth at [place] [address] bedtime. Medical Branch apixaban 3-0 Yes 5mg Take 1 [facility] (ELIQUIS) 5 4-18 tablet by ity of mg tablet 00:00: mouth in [facility] the Medical morning Branch and 1 tablet in the evening. Indication s: PE metFORMIN 3-0 Yes [id number] 500mg Take 1 [facility] 500 mg 4-18 tablet by it[facility] of tablet 00:00: mouth in [place] the morning Branch and 1 tablet in the evening. Take with meals. lisinopriL 3-0 Yes [id number] 20mg Take 1 [facility] nivers 20 mg 4-18 tablet by [facility] of tablet 00:00: mouth in [place] the morning. Branch KCL 10 mEq 3-0 Yes [id number] 10meq Take 1 [facility] tablet 4-18 tablet by ity of 00:00: mouth in [place] the morning. Branch Take with Lasix atorvastati 3-0 Yes [id number] 10mg Take 1 [facility] n 10 mg 4-18 tablet by ity of tablet 00:00: mouth at [place] [address] bedtime. Medical Branch apixaban 2023-0 Yes 5mg Take 1 [facility] (ELIQUIS) 5 4-18 tablet by ity of mg tablet 00:00: mouth in [facility] 00 the Medical morning Branch and 1 tablet in the evening. Indication s: PE metFORMIN 2023-0 Yes [id number] 500mg Take 1 [facility] 500 mg 4-18 tablet by ity of tablet 00:00: mouth in [place] the Medical morning Branch and 1 tablet in the evening. Take with meals. lisinopriL 2022-0 Yes [id number] 20mg Take 1 [facility] nivers 20 mg 4-18 tablet by [facility] of tablet 00:00: mouth in [place] the Medical morning. Branch KCL 10 mEq 2022-0 Yes [id number] 10meq Take 1 [facility] tablet 4-18 tablet by ity of 00:00: mouth in [place] the morning. Branch Take with Lasix atorvastati 2022-0 Yes [id number] 10mg Take 1 [facility] n 10 mg 4-18 tablet by ity of tablet 00:00: mouth at [place] [address] bedtime. Medical Branch apixaban 2022-0 Yes 5mg Take 1 [facility] (ELIQUIS) 5 4-18 tablet by ity of mg tablet 00:00: mouth in [facility] the Medical morning Branch and 1 tablet in the evening. Indication s: PE metFORMIN 2022-0 Yes [id number] 500mg Take 1 [facility] 500 mg 4-18 tablet by it[facility] of tablet 00:00: mouth in [place] the Medical morning Branch and 1 tablet in the evening. Take with meals. lisinopriL 2022-0 Yes [id number] 20mg Take 1 [facility] nivers 20 mg 4-18 tablet by it[facility] of tablet 00:00: mouth in [place] the morning. Branch KCL 10 mEq 2022-0 Yes [id number] 10meq Take 1 [facility] tablet 4-18 tablet by ity of 00:00: mouth in [place] the morning. Branch Take with Lasix atorvastati 2022-0 Yes [id number] 10mg Take 1 [facility] n 10 mg 4-18 tablet by ity of tablet 00:00: mouth at [place] [address] bedtime. Medical Branch apixaban 3-0 Yes 5mg Take 1 [facility] (ELIQUIS) 5 4-18 tablet by ity of mg tablet 00:00: mouth in [facility] 00 the Medical morning Branch and 1 tablet in the evening. Indication s: PE metFORMIN 3-0 Yes [id number] 500mg Take 1 [facility] 500 mg 4-18 tablet by ity of tablet 00:00: mouth in [place] the Medical morning Branch and 1 tablet in the evening. Take with meals. lisinopriL 3-0 Yes [id number] 20mg Take 1 [facility] nivers 20 mg 4-18 tablet by ity of tablet 00:00: mouth in [place] 00 the Medical morning. Branch KCL 10 mEq 2022-0 Yes [id number] 10meq Take 1 [facility] tablet 4-18 tablet by ity of 00:00: mouth in [place] 00 the Medical morning. Branch Take with Lasix atorvastati 2022-0 Yes [id number] 10mg Take 1 [facility] n 10 mg 4-18 tablet by ity of tablet 00:00: mouth at [place] 00 bedtime. Medical Branch apixaban 2022-0 Yes 5mg Take 1 [facility] (ELIQUIS) 5 4-18 tablet by ity of mg tablet 00:00: mouth in [facility] s 00 the Medical morning Branch and 1 tablet in the evening. Indication s: PE metFORMIN 3-0 Yes [id number] 500mg Take 1 [facility] 500 mg 4-18 tablet by ity of tablet 00:00: mouth in [place] 00 the Medical morning Branch and 1 tablet in the evening. Take with meals. lisinopriL 3-0 Yes [id number] 20mg Take 1 [facility] nivers 20 mg 4-18 tablet by it[facility] of tablet 00:00: mouth in [place] the Medical morning. Branch KCL 10 mEq 2022-0 Yes [id number] 10meq Take 1 [facility] tablet 4-18 tablet by ity of 00:00: mouth in [place] 00 the Medical morning. Branch Take with Lasix atorvastati 2022-0 Yes [id number] 10mg Take 1 [facility] n 10 mg 4-18 tablet by ity of tablet 00:00: mouth at [place] 00 bedtime. Medical Branch apixaban 3-0 Yes 5mg Take 1 [facility] (ELIQUIS) 5 4-18 tablet by ity of mg tablet 00:00: mouth in [facility] 00 the Medical morning Branch and 1 tablet in the evening. Indication s: PE metFORMIN 2023-0 Yes [id number] 500mg Take 1 [facility] 500 mg 4-18 tablet by ity of tablet 00:00: mouth in [place] 00 the Medical morning Branch and 1 tablet in the evening. Take with meals. lisinopriL 3-0 Yes [id number] 20mg Take 1 [facility] nivers 20 mg 4-18 tablet by [facility]y of tablet 00:00: mouth in [place] 00 the Medical morning. Branch KCL 10 mEq 3-0 Yes [id number] 10meq Take 1 [facility] tablet 4-18 tablet by ity of 00:00: mouth in [place] the Medical morning. Branch Take with Lasix atorvastati 2022-0 Yes [id number] 10mg Take 1 [facility] n 10 mg 4-18 tablet by ity of tablet 00:00: mouth at [place] 00 bedtime. Medical Branch apixaban 3-0 Yes 5mg Take 1 [facility] (ELIQUIS) 5 4-18 tablet by [facility] of mg tablet 00:00: mouth in [place] 00 the Medical morning Branch and 1 tablet in the evening. Indication s: PE metFORMIN 3-0 Yes [id number] 500mg Take 1 [facility] 500 mg 4-18 tablet by ity of tablet 00:00: mouth in [place] 00 the Medical morning Branch and 1 tablet in the evening. Take with meals. lisinopriL 3-0 Yes [id number] 20mg Take 1 [facility] nivers 20 mg 4-18 tablet by [facility] of tablet 00:00: mouth in [place] the morning. Branch KCL 10 mEq 2022-0 Yes [id number] 10meq Take 1 [facility] tablet 4-18 tablet by ity of 00:00: mouth in [place] the Medical morning. Branch Take with Lasix atorvastati 2022-0 Yes [id number] 10mg Take 1 [facility] n 10 mg 4-18 tablet by ity of tablet 00:00: mouth at [place] 00 bedtime. Medical Branch apixaban 3-0 Yes 5mg Take 1 [facility] (ELIQUIS) 5 4-18 tablet by ity of mg tablet 00:00: mouth in [facility] 00 the Medical morning Branch and 1 tablet in the evening. Indication s: PE metFORMIN 3-0 Yes [id number] 500mg Take 1 [facility] 500 mg 4-18 tablet by ity of tablet 00:00: mouth in [place] 00 the Medical morning Branch and 1 tablet in the evening. Take with meals. lisinopriL 3-0 Yes [id number] 20mg Take 1 [facility] nivers 20 mg 4-18 tablet by [facility] of tablet 00:00: mouth in [place] 00 the Medical morning. Branch KCL 10 mEq 3-0 Yes [id number] 10meq Take 1 [facility] tablet 4-18 tablet by ity of 00:00: mouth in [place] 00 the Medical morning. Branch Take with Lasix atorvastati 2022-0 Yes [id number] 10mg Take 1 [facility] n 10 mg 4-18 tablet by ity of tablet 00:00: mouth at [place] 00 bedtime. Medical Branch apixaban 2022-0 Yes 5mg Take 1 [facility] (ELIQUIS) 5 4-18 tablet by ity of mg tablet 00:00: mouth in [facility] 00 the Medical morning Branch and 1 tablet in the evening. Indication s: PE metFORMIN 2022-0 Yes [id number] 500mg Take 1 [facility] 500 mg 4-18 tablet by [facility]y of tablet 00:00: mouth in [place] 00 the Medical morning Branch and 1 tablet in the evening. Take with meals. lisinopriL 2022-0 Yes [id number] 20mg Take 1 [facility] nivers 20 mg 4-18 tablet by [facility] of tablet 00:00: mouth in [place] 00 the Medical morning. Branch KCL 10 mEq 2022-0 Yes [id number] 10meq Take 1 [facility] tablet 4-18 tablet by [facility]y of 00:00: mouth in [place] 00 the Medical morning. Branch Take with Lasix atorvastati 2022-0 Yes [id number] 10mg Take 1 [facility] n 10 mg 4-18 tablet by ity of tablet 00:00: mouth at [place] 00 bedtime. Medical Branch apixaban 2022-0 Yes 5mg Take 1 [facility] (ELIQUIS) 5 4-18 tablet by ity of mg tablet 00:00: mouth in [facility] 00 the Medical morning Branch and 1 tablet in the evening. Indication s: PE metFORMIN 3-0 Yes [id number] 500mg Take 1 [facility] 500 mg 4-18 tablet by ity of tablet 00:00: mouth in [place] 00 the Medical morning Branch and 1 tablet in the evening. Take with meals. lisinopriL 3-0 Yes [id number] 20mg Take 1 [facility] nivers 20 mg 4-18 tablet by [facility]y of tablet 00:00: mouth in [place] 00 the Medical morning. Branch atorvastati 3-0 Yes [id number] 10mg Take 1 [facility] n 10 mg 4-18 tablet by [facility] of tablet 00:00: mouth at [place] 00 bedtime. Medical Branch apixaban 3-0 Yes 5mg Take 1 [facility] (ELIQUIS) 5 4-18 tablet by [facility] mg tablet 00:00: mouth [place] 00 the Medical morning Branch and 1 tablet in the evening. Indication s: PE metFORMIN 2023-0 Yes [id number] 500mg Take 1 [facility] 500 mg 4-18 tablet by ity of tablet 00:00: mouth in [place] 00 the Medical morning Branch and 1 tablet in the evening. Take with meals. lisinopriL 3-0 Yes [id number] 20mg Take 1 [facility] nivers 20 mg 4-18 tablet by ity of tablet 00:00: mouth in [place] 00 the Medical morning. Branch atorvastati 2022-0 Yes [id number] 10mg Take 1 [facility] n 10 mg 4-18 tablet by ity of tablet 00:00: mouth at [place] 00 bedtime. Medical Branch apixaban 2022-0 Yes 5mg Take 1 [facility] (ELIQUIS) 5 4-18 tablet by ity of mg tablet 00:00: mouth in [facility] 00 the Medical morning Branch and 1 tablet in the evening. Indication s: PE metFORMIN 3-0 Yes [id number] 500mg Take 1 [facility] 500 mg 4-18 tablet by ity of tablet 00:00: mouth in [place] 00 the Medical morning Branch and 1 tablet in the evening. Take with meals. lisinopriL 3-0 Yes [id number] 20mg Take 1 [facility] nivers 20 mg 4-18 tablet by [facility]y of tablet 00:00: mouth in [place] 00 the Medical morning. Branch atorvastati 2022-0 Yes [id number] 10mg Take 1 [facility] n 10 mg 4-18 tablet by ity of tablet 00:00: mouth at [place] 00 bedtime. Medical Branch apixaban 3-0 Yes 5mg Take 1 [facility] (ELIQUIS) 5 4-18 tablet by ity of mg tablet 00:00: mouth in [facility] 00 the Medical morning Branch and 1 tablet in the evening. Indication s: PE metFORMIN 2023-0 Yes [id number] 500mg Take 1 [facility] 500 mg 4-18 tablet by ity of tablet 00:00: mouth in [place] [address] the Medical morning Branch and 1 tablet in the evening. Take with meals. lisinopriL 2023-0 Yes [id number] 20mg Take 1 [facility] nivers 20 mg 4-18 tablet by [facility] of tablet 00:00: mouth in [place] 00 the Medical morning. Branch atorvastati 2022-0 Yes [id number] 10mg Take 1 [facility] n 10 mg 4-18 tablet by [facility] of tablet 00:00: mouth at [place] 00 bedtime. Medical Branch apixaban 2022-0 Yes 5mg Take 1 [facility] (ELIQUIS) 5 4-18 tablet by [facility] of mg tablet 00:00: mouth in [place] 00 the Medical morning Branch and 1 tablet in the evening. Indication s: PE metFORMIN 2022-0 Yes [id number] 500mg Take 1 [facility] 500 mg 4-18 tablet by [facility]y of tablet 00:00: mouth in [place] 00 the Medical morning Branch and 1 tablet in the evening. Take with meals. lisinopriL 2022-0 Yes [id number] 20mg Take 1 [facility] nivers 20 mg 4-18 tablet by [facility] of tablet 00:00: mouth in [place] 00 the morning. Branch atorvastati 2022-0 Yes [id number] 10mg Take 1 [facility] n 10 mg 4-18 tablet by [facility] of tablet 00:00: mouth at [place] 00 bedtime. Medical Branch apixaban 2022-0 Yes 5mg Take 1 [facility] (ELIQUIS) 5 4-18 tablet by ity of mg tablet 00:00: mouth in [facility] 00 the Medical morning Branch and 1 tablet in the evening. Indication s: PE metFORMIN 2022-0 Yes [id number] 500mg Take 1 [facility] 500 mg 4-18 tablet by [facility]y of tablet 00:00: mouth in [place] 00 the Medical morning Branch and 1 tablet in the evening. Take with meals. lisinopriL 3-0 Yes [id number] 20mg Take 1 [facility] nivers 20 mg 4-18 tablet by [facility] of tablet 00:00: mouth in [place] 00 the morning. Branch atorvastati 2022-0 Yes [id number] 10mg Take 1 [facility] n 10 mg 4-18 tablet by [facility] of tablet 00:00: mouth at [place] 00 bedtime. Medical Branch apixaban 2022-0 Yes 5mg Take 1 [facility] (ELIQUIS) 5 4-18 tablet by ity of mg tablet 00:00: mouth in [facility] 00 the Medical morning Branch and 1 tablet in the evening. Indication s: PE metFORMIN 3-0 Yes [id number] 500mg Take 1 [facility] 500 mg 4-18 tablet by [facility]y of tablet 00:00: mouth in [place] 00 the Medical morning Branch and 1 tablet in the evening. Take with meals. lisinopriL 2022-0 Yes [id number] 20mg Take 1 [facility] nivers 20 mg 4-18 tablet by [facility] of tablet 00:00: mouth in [place] 00 the Medical morning. Branch atorvastati 2022-0 Yes [id number] 10mg Take 1 [facility] n 10 mg 4-18 tablet by ity of tablet 00:00: mouth at [place] 00 bedtime. Medical Branch apixaban 2022-0 Yes 5mg Take 1 [facility] (ELIQUIS) 5 4-18 tablet by ity of mg tablet 00:00: mouth in [facility] 00 the Medical morning Branch and 1 tablet in the evening. Indication s: PE metFORMIN 2022-0 Yes [id number] 500mg Take 1 [facility] 500 mg 4-18 tablet by ity of tablet 00:00: mouth in [place] 00 the Medical morning Branch and 1 tablet in the evening. Take with meals. lisinopriL 2022-0 Yes [id number] 20mg Take 1 [facility] nivers 20 mg 4-18 tablet by [facility] of tablet 00:00: mouth in [place] 00 the Medical morning. Branch atorvastati 2022-0 Yes [id number] 10mg Take 1 [facility] n 10 mg 4-18 tablet by [facility] of tablet 00:00: mouth at [place] 00 bedtime. Medical Branch apixaban 2022-0 Yes 5mg Take 1 [facility] (ELIQUIS) 5 4-18 tablet by ity of mg tablet 00:00: mouth in [facility] 00 the Medical morning Branch and 1 tablet in the evening. Indication s: PE metFORMIN 3-0 Yes [id number] 500mg Take 1 [facility] 500 mg 4-18 tablet by [facility] of tablet 00:00: mouth in [place] 00 the Medical morning Branch and 1 tablet in the evening. Take with meals. lisinopriL 3-0 Yes [id number] 20mg Take 1 [facility] nivers 20 mg 4-18 tablet by [facility] of tablet 00:00: mouth in [place] 00 the Medical morning. Branch atorvastati 2022-0 Yes [id number] 10mg Take 1 [facility] n 10 mg 4-18 tablet by [facility] of tablet 00:00: mouth at [place] [address] bedtime. Medical Branch apixaban 2023-0 Yes 5mg Take 1 [facility] (ELIQUIS) 5 4-18 tablet by ity of mg tablet 00:00: mouth in [facility] 00 the Medical morning Branch and 1 tablet in the evening. Indication s: PE metFORMIN 2022-0 Yes [id number] 500mg Take 1 [facility] 500 mg 4-18 tablet by [facility] of tablet 00:00: mouth in [place] 00 the Medical morning Branch and 1 tablet in the evening. Take with meals. lisinopriL 2022-0 Yes [id number] 20mg Take 1 [facility] nivers 20 mg 4-18 tablet by [facility] of tablet 00:00: mouth in [place] 00 the Medical morning. Branch atorvastati 2022-0 Yes [id number] 10mg Take 1 [facility] n 10 mg 4-18 tablet by ity of tablet 00:00: mouth at [place] 00 bedtime. Medical Branch apixaban 2022-0 Yes 5mg Take 1 [facility] (ELIQUIS) 5 4-18 tablet by ity of mg tablet 00:00: mouth in [place] [facility] 00 the Medical morning Branch and 1 tablet in the evening. Indication s: PE metFORMIN 2022-0 Yes [id number] 500mg Take 1 [facility] 500 mg 4-18 tablet by ity of tablet 00:00: mouth in [place] 00 the Medical morning Branch and 1 tablet in the evening. Take with meals. lisinopriL 2022-0 Yes [id number] 20mg Take 1 [facility] nivers 20 mg 4-18 tablet by ity of tablet 00:00: mouth in [place] 00 the Medical morning. Branch atorvastati 2022-0 Yes [id number] 10mg Take 1 [facility] n 10 mg 4-18 tablet by ity of tablet 00:00: mouth at [place] 00 bedtime. Medical Branch apixaban 2022-0 Yes 5mg Take 1 [facility] (ELIQUIS) 5 4-18 tablet by ity of mg tablet 00:00: mouth in [facility] 00 the Medical morning Branch and 1 tablet in the evening. Indication s: PE metFORMIN 2022-0 Yes [id number] 500mg Take 1 [facility] 500 mg 4-18 tablet by ity of tablet 00:00: mouth in [place] [address] the Medical morning Branch and 1 tablet in the evening. Take with meals. lisinopriL 3-0 Yes [id number] 20mg Take 1 U nivers 20 mg 4-18 tablet by ity of tablet 00:00: mouth in [place] 00 the Medical morning. Branch atorvastati 2022-0 Yes [id number] 10mg Take 1 [facility] n 10 mg 4-18 tablet by ity of tablet 00:00: mouth at [place] 00 bedtime. Medical Branch apixaban 2022-0 Yes 5mg Take 1 [facility] (ELIQUIS) 5 4-18 tablet by ity of mg tablet 00:00: mouth in [place] [facility] 00 the Medical morning Branch and 1 tablet in the evening. Indication s: PE metFORMIN 2022-0 Yes [id number] 500mg Take 1 [facility] 500 mg 4-18 tablet by ity of tablet 00:00: mouth in [place] 00 the Medical morning Branch and 1 tablet in the evening. Take with meals. lisinopriL 2022-0 Yes [id number] 20mg Take 1 U nivers 20 mg 4-18 tablet by ity of tablet 00:00: mouth in [place] 00 the Medical morning. Branch atorvastati 2022-0 Yes [id number] 10mg Take 1 [facility] n 10 mg 4-18 tablet by ity of tablet 00:00: mouth at [place] [address] bedtime. Medical Branch apixaban 2022-0 Yes 5mg Take 1 [facility] (ELIQUIS) 5 4-18 tablet by ity of mg tablet 00:00: mouth in [place] [address] the Medical morning Branch and 1 tablet in the evening. Indication s: PE metFORMIN 2022-0 Yes [id number] 500mg Take 1 [facility] 500 mg 4-18 tablet by ity of tablet 00:00: mouth in [place] [address] the Medical morning Branch and 1 tablet in the evening. Take with meals. lisinopriL 3-0 Yes [id number] 20mg Take 1 U nivers 20 mg 4-18 tablet by ity of tablet 00:00: mouth in [place] 00 the Medical morning. Branch atorvastati 2022-0 Yes [id number] 10mg Take 1 [facility] n 10 mg 4-18 tablet by ity of tablet 00:00: mouth at [place] [address] bedtime. Medical Branch apixaban 2022-0 Yes 5mg Take 1 [facility] (ELIQUIS) 5 4-18 tablet by ity of mg tablet 00:00: mouth in [facility] 00 the Medical morning Branch and 1 tablet in the evening. Indication s: PE metFORMIN 2022-0 Yes [id number] 500mg Take 1 [facility] 500 mg 4-18 tablet by ity of tablet 00:00: mouth in [place] 00 the Medical morning Branch and 1 tablet in the evening. Take with meals. lisinopriL 2022-0 Yes [id number] 20mg Take 1 [facility] nivers 20 mg 4-18 tablet by ity of tablet 00:00: mouth in [place] 00 the Medical morning. Branch atorvastati 2022-0 Yes [id number] 10mg Take 1 [facility] n 10 mg 4-18 tablet by ity of tablet 00:00: mouth at [place] 00 bedtime. Medical Branch apixaban 2022-0 Yes 5mg Take 1 [facility] (ELIQUIS) 5 4-18 tablet by ity of mg tablet 00:00: mouth in [place] [facility] 00 the Medical morning Branch and 1 tablet in the evening. Indication s: PE metFORMIN 2022-0 Yes [id number] 500mg Take 1 [facility] 500 mg 4-18 tablet by ity of tablet 00:00: mouth in [place] 00 the Medical morning Branch and 1 tablet in the evening. Take with meals. lisinopriL 2022-0 Yes [id number] 20mg Take 1 [facility] nivers 20 mg 4-18 tablet by ity of tablet 00:00: mouth in [place] the Medical morning. Branch atorvastati 2022-0 Yes [id number] 10mg Take 1 [facility] n 10 mg 4-18 tablet by ity of tablet 00:00: mouth at [place] 00 bedtime. Medical Branch apixaban 2022-0 Yes 5mg Take 1 [facility] (ELIQUIS) 5 4-18 tablet by ity of mg tablet 00:00: mouth in [place] [facility] 00 the Medical morning Branch and 1 tablet in the evening. Indication s: PE metFORMIN 3-0 Yes [id number] 500mg Take 1 [facility] 500 mg 4-18 tablet by ity of tablet 00:00: mouth in [place] 00 the Medical morning Branch and 1 tablet in the evening. Take with meals. lisinopriL 3-0 Yes [id number] 20mg Take 1 U nivers 20 mg 4-18 tablet by ity of tablet 00:00: mouth in [place] 00 the Medical morning. Branch atorvastati 3-0 Yes [id number] 10mg Take 1 [facility] n 10 mg 4-18 tablet by ity of tablet 00:00: mouth at [place] 00 bedtime. Medical Branch apixaban 3-0 Yes 5mg Take 1 [facility] (ELIQUIS) 5 4-18 tablet by ity of mg tablet 00:00: mouth in [place] [facility] 00 the Medical morning Branch and 1 tablet in the evening. Indication s: PE metFORMIN 3-0 Yes [id number] 500mg Take 1 [facility] 500 mg 4-18 tablet by ity of tablet 00:00: mouth in [place] [address] the [facility] morning Branch and 1 tablet in the evening. Take with meals. lisinopriL 3-0 Yes [id number] 20mg Take 1 U nivers 20 mg 4-18 tablet by ity of tablet 00:00: mouth in [place] [address] the Medical morning. Branch atorvastati 2022-0 Yes [id number] 10mg Take 1 [facility] n 10 mg 4-18 tablet by ity of tablet 00:00: mouth at [place] [address] bedtime. Medical Branch apixaban 2022-0 Yes 5mg Take 1 [facility] (ELIQUIS) 5 4-18 tablet by ity of mg tablet 00:00: mouth in [place] [address] the [facility] morning Branch and 1 tablet in the evening. Indication s: PE metFORMIN 2022-0 Yes [id number] 500mg Take 1 [facility] 500 mg 4-18 tablet by ity of tablet 00:00: mouth in [place] [address] the [facility] morning Branch and 1 tablet in the evening. Take with meals. lisinopriL 3-0 Yes [id number] 20mg Take 1 U nivers 20 mg 4-18 tablet by ity of tablet 00:00: mouth in [place] [address] the morning. Branch atorvastati 2022-0 Yes [id number] 10mg Take 1 [facility] n 10 mg 4-18 tablet by ity of tablet 00:00: mouth at [place] [address] bedtime. Medical Branch apixaban 2022-0 Yes 5mg Take 1 [facility] (ELIQUIS) 5 4-18 tablet by ity of mg tablet 00:00: mouth in [address] morning Branch and 1 tablet in the evening. Indication s: PE metFORMIN 2023-0 Yes [id number] 500mg Take 1 [facility] 500 mg 4-18 tablet by ity of tablet 00:00: mouth in [place] [address] the [facility] morning Branch and 1 tablet in the evening. Take with meals. lisinopriL 2023-0 Yes [id number] 20mg Take 1 U nivers 20 mg 4-18 tablet by ity of tablet 00:00: mouth in [place] 00 the Medical morning. Branch atorvastati Yes [id number] 10mg Take 1 [facility] n 10 mg 4-18 tablet by ity of tablet 00:00: mouth at [place] 00 bedtime. Medical Branch apixaban 0 Yes 5mg Take 1 [facility] (ELIQUIS) 5 4-18 tablet by ity of mg tablet 00:00: [place] 00 the Medical morning Branch and 1 tablet in the evening. Indication s: PE metFORMIN 2022-0 Yes [id number] 500mg Take 1 [facility] 500 mg 4-18 tablet by ity of tablet 00:00: mouth in [place] 00 the Medical morning Branch and 1 tablet in the evening. Take with meals. lisinopriL 2022- No [id number] 20mg Take 1 [facility] 20 mg 4-18 11-03 tablet by ity of tablet 00:00: 00:00 mouth in [place] 00 :00 the Medical morning. Branch atorvastati 2022- No [id number] 10mg Take 1 [facility] n 10 mg 4-18 11-03 tablet by ity of tablet 00:00: 00:00 mouth at [place] 00 :00 bedtime. Medical Branch apixaban 3- No 5mg Take 1 Univer s (ELIQUIS) 5 4-18 11-03 tablet by it y of mg tablet 00:00: 00:00 mouth in [place] 00 :00 the Medical morning Branch and 1 tablet in the evening. Indication s: PE metFORMIN 2022-0 2022- No [id number] 500mg Take 1 [facility] 500 mg 4-18 11-03 tablet by ity of tablet 00:00: 00:00 mouth in [place] 00 :00 the Medical morning Branch and 1 tablet in the evening. Take with meals. lisinopriL 2022-2022- No [id number] 20mg Take 1 [facility] 20 mg 4-18 11-03 tablet by ity of tablet 00:00: 00:00 mouth in [place] 00 :00 the Medical morning. Branch atorvastati 0 2022- No [id number] 10mg Take 1 [facility] n 10 mg 4-18 11-03 tablet by ity of tablet 00:00: 00:00 mouth at [place] 00 :00 bedtime. Medical Branch apixaban 2022- No 5mg Take 1 Univer s (ELIQUIS) 5 08-20 tablet by it y of mg tablet 00:00: 00:00 mouth in [place] 00 :00 the Medical morning Branch and 1 tablet in the evening. Indication s: PE metFORMIN 2022-2022- No [id number] 500mg Take 1 [facility] 500 mg 08-20 tablet by ity of tablet 00:00: 00:00 mouth in [place] 00 :00 the Medical morning Branch and 1 tablet in the evening. Take with meals. lisinopriL 2022- No [id number] 20mg Take 1 [facility] 20 mg 08-20 tablet by ity of tablet 00:00: 00:00 mouth in [place] 00 :00 the Medical morning. Branch atorvastati 2022- No [id number] 10mg Take 1 [facility] n 10 mg 08-20 tablet by ity of tablet 00:00: 00:00 mouth at [place] 00 :00 bedtime. Medical Branch apixaban 2022- No 5mg Take 1 Univer s (ELIQUIS) 5 08-20 tablet by it y of mg tablet 00:00: 00:00 mouth in [facility] as 00 :00 the Medical morning Branch and 1 tablet in the evening. Indication s: PE metFORMIN 2022-2022- No [id number] 500mg Take 1 [facility] 500 mg 08-20 tablet by ity of tablet 00:00: 00:00 mouth in [place] 00 :00 the Medical morning Branch and 1 tablet in the evening. Take with meals. KCL 10 mEq 2022- No [id number] 10meq Take 1 [facility] tablet 08-20- tablet by ity of 00:00: 00:00 mouth in [place] 00 :00 the Medical morning. Branch Take with Lasix fluticasone 2022- No [id number] 1{puff} Inhale 1 [facility] propion-li -18 07-29 Puff every i ty of meteroL 00:00: 00:00 12 [place] (ADVAIR 00 :00 (twelve) Medical DISKUS) hours. Branch 250-50 mcg/dose inhalation disk albuterol 2022- No [id number] 2.5mg Inhale 0.5 Univers 2.5 mg/0.5 -18 07-18 mL every 6 it y of mL 00:00: 00:00 (six) [place] nebulizer 00 :00 hours as Medica l solution needed for Branc h Wheezing. albuterol 2022- No [id number] 2.5mg Inhale 0.5 Univers 2.5 mg/0.5 -18 07-18 mL every 6 it y of mL 00:00: 00:00 (six) [place] nebulizer 00 :00 hours as Medica l solution needed for Branc h Wheezing. promethazin 2022- No [id number] 5mL Take 5 mL Univers e-dextromet 08-20 05-18 by mouth 4 i ty of horphan 00:00: 00:00 (four) [place] 6.25-15 00 :00 times Medical mg/5 mL daily as Branch syrup needed for Cough. benzonatate 2022- No [id number] Take 1-2 Univers (TESSALON 18 05-17 capsules ity o f PERLES) 100 00:00: 00:00 three [place] mg capsule 00 :00 times a Medica l day as Branch needed for cough. albuterol 2022- No [id number] 2{puff} Inhale 2 Univers 90 -18 04-20 Puffs ity of mcg/actuati 00:00: 00:00 every 6 [place] on inhaler 00 :00 (six) Medical hours as Branch needed for Wheezing or Shortness of Breath. predniSONE 2022- No [id number] 40mg Take 2 [facility] 20 mg 08-11 04-14 tablets by ity of tablet 00:00: 04:59 mouth in [place] 00 :00 the Medical morning Branch for 4 days. clopidogreL 2022- Yes 75mg 75 mg, Univ ers (PLAVIX) 75 4-08 Oral, ity of mg tablet 14:00: DAILY, [place] 75 mg 00 First dose Medical on Sat Branch 08/10/22 at 0900, Until Discontinu ed, Routine predniSONE 2022- No 40mg 40 mg, Univ ers (DELTASONE) 4-08 04-12 Oral, ity of tablet 40 14:00: 13:59 DAILY, 4 [place] mg 00 :00 doses, Medical First dose Branch on [facility] [place] 08/10/22 at 0900, Last dose on Fri08/13/22 at 0900, Routine benzonatate 2023-0 Yes 100mg 100 mg, Un nel (TESSALON 4-08 Oral, TID, ity of PERLES) 13:15: First dose [place] capsule 00 on [facility] [place] Medica l mg 08/10/22 at Branch 0815, Until Discontinu ed, Routine apixaban 2023-0 Yes 5mg 5 mg, Univers (ELIQUIS) 4-08 Oral, BID, ity of tablet 5 mg 13:00: First dose 00 on [facility] [place] Medical 08/10/22 at Branch 0800, Until Discontinu ed, Routine
Indicatio ns: DVT/PE HYDROcodone 2023-0 Yes 1{tbl} Take 1 Un enl -acetaminop 4-08 tablet by ity of hen 10-325 12:29: mouth [place] mg tablet 54 every 6 Medical (six) Branch hours as needed for Pain (scale 7-10). furosemide 2023-0 Yes 40mg Take 1 Unive rs 40 mg 4-08 tablet by ity of tablet 12:29: mouth once [place] 54 daily as Medical needed. Branch PRN edema clopidogreL 2023-0 Yes 75mg Take 1 Univ ers 75 mg 4-08 tablet by ity of tablet 12:29: mouth in [place] [address] the Medical morning. Branch carisoprodo 2023-0 Yes 350mg Take 1 Uni vers L 350 mg 4-08 tablet by ity of tablet 12:29: mouth in [place] [address] the Medical morning Branch and 1 tablet at noon and 1 tablet in the evening. HYDROcodone 2023-0 Yes 1{tbl} Take 1 Un nel -acetaminop 4-08 tablet by ity of hen 10-325 12:29: mouth [place] mg tablet 54 every 6 Medical (six) Branch hours as needed for Pain (scale 7-10). furosemide 2023-0 Yes 40mg Take 1 Unive rs 40 mg 4-08 tablet by ity of tablet 12:29: mouth once [place] 54 daily as Medical needed. Branch PRN edema clopidogreL 2023-0 Yes 75mg Take 1 Univ ers 75 mg 4-08 tablet by ity of tablet 12:29: mouth in [place] [address] the Medical morning. Branch carisoprodo 2023-0 Yes 350mg Take 1 Uni vers L 350 mg 4-08 tablet by ity of tablet 12:29: mouth in [place] [address] the Medical morning Branch and 1 tablet at noon and 1 tablet in the evening. HYDROcodone 2023-0 Yes 1{tbl} Take 1 Un nel -acetaminop 4-08 tablet by ity of hen 10-325 12:29: mouth [place] mg tablet 54 every 6 Medical (six) Branch hours as needed for Pain (scale 7-10). furosemide 2023-0 Yes 40mg Take 1 Unive rs 40 mg 4-08 tablet by ity of tablet 12:29: mouth once [place] 54 daily as Medical needed. Branch PRN edema clopidogreL 2023-0 Yes 75mg Take 1 Univ ers 75 mg 4-08 tablet by ity of tablet 12:29: mouth in [place] [address] the Medical morning. Branch carisoprodo 2023-0 Yes 350mg Take 1 Uni vers L 350 mg 4-08 tablet by ity of tablet 12:29: mouth in [place] [address] the Medical morning Branch and 1 tablet at noon and 1 tablet in the evening. HYDROcodone 2023-0 Yes 1{tbl} Take 1 Un nel -acetaminop 4-08 tablet by ity of hen 10-325 12:29: mouth [place] mg tablet 54 every 6 Medical (six) Branch hours as needed for Pain (scale 7-10). furosemide 2023-0 Yes 40mg Take 1 Unive rs 40 mg 4-08 tablet by ity of tablet 12:29: mouth once [place] 54 daily as Medical needed. Branch PRN edema carisoprodo 2023-0 Yes 350mg Take 1 Uni vers L 350 mg 4-08 tablet by ity of tablet 12:29: mouth in [place] [address] the Medical morning Branch and 1 tablet at noon and 1 tablet in the evening. HYDROcodone 2023-0 Yes 1{tbl} Take 1 Un nel -acetaminop 4-08 tablet by ity of hen 10-325 12:29: mouth [place] mg tablet 54 every 6 Medical (six) Branch hours as needed for Pain (scale 7-10). furosemide 2023-0 Yes 40mg Take 1 Unive rs 40 mg 4-08 tablet by ity of tablet 12:29: mouth once [place] 54 daily as Medical needed. Branch PRN edema carisoprodo 2023-0 Yes 350mg Take 1 Uni vers L 350 mg 4-08 tablet by ity of tablet 12:29: mouth in [place] 54 the Medical morning Branch and 1 tablet at noon and 1 tablet in the evening. HYDROcodone 2023-0 Yes 1{tbl} Take 1 Un nel -acetaminop 4-08 tablet by ity of hen 10-325 12:29: mouth [place] mg tablet 54 every 6 Medical (six) Branch hours as needed for Pain (scale 7-10). furosemide 2023-0 Yes 40mg Take 1 Unive rs 40 mg 4-08 tablet by ity of tablet 12:29: mouth once [place] 54 daily as Medical needed. Branch PRN edema carisoprodo 2023-0 Yes 350mg Take 1 Uni vers L 350 mg 4-08 tablet by ity of tablet 12:29: mouth in [place] [address] the Medical morning Branch and 1 tablet at noon and 1 tablet in the evening. HYDROcodone 2023-0 Yes 1{tbl} Take 1 Un nel -acetaminop 4-08 tablet by ity of hen 10-325 12:29: mouth [place] mg tablet 54 every 6 Medical (six) Branch hours as needed for Pain (scale 7-10). furosemide 2023-0 Yes 40mg Take 1 Unive rs 40 mg 4-08 tablet by ity of tablet 12:29: mouth once [place] 54 daily as Medical needed. Branch PRN edema carisoprodo 2023-0 Yes 350mg Take 1 Uni vers L 350 mg 4-08 tablet by ity of tablet 12:29: mouth in [place] 54 the Medical morning Branch and 1 tablet at noon and 1 tablet in the evening. HYDROcodone 2023-0 Yes 1{tbl} Take 1 Un nel -acetaminop 4-08 tablet by ity of hen 10-325 12:29: mouth [place] mg tablet 54 every 6 Medical (six) Branch hours as needed for Pain (scale 7-10). furosemide 2023-0 Yes 40mg Take 1 Unive rs 40 mg 4-08 tablet by ity of tablet 12:29: mouth once [place] 54 daily as Medical needed. Branch PRN edema carisoprodo 2023-0 Yes 350mg Take 1 Uni vers L 350 mg 4-08 tablet by ity of tablet 12:29: mouth in [place] 54 the Medical morning Branch and 1 tablet at noon and 1 tablet in the evening. HYDROcodone 2023-0 Yes 1{tbl} Take 1 Un nel -acetaminop 4-08 tablet by ity of hen 10-325 12:29: mouth [place] mg tablet 54 every 6 Medical (six) Branch hours as needed for Pain (scale 7-10). furosemide 2023-0 Yes 40mg Take 1 Unive rs 40 mg 4-08 tablet by ity of tablet 12:29: mouth once [place] 54 daily as Medical needed. Branch PRN edema carisoprodo 2023-0 Yes 350mg Take 1 Uni vers L 350 mg 4-08 tablet by ity of tablet 12:29: mouth in [place] [address] the Medical morning Branch and 1 tablet at noon and 1 tablet in the evening. HYDROcodone 2023-0 Yes 1{tbl} Take 1 Un nel -acetaminop 4-08 tablet by ity of hen 10-325 12:29: mouth [place] mg tablet 54 every 6 Medical (six) Branch hours as needed for Pain (scale 7-10). furosemide 2023-0 Yes 40mg Take 1 Unive rs 40 mg 4-08 tablet by ity of tablet 12:29: mouth once [place] 54 daily as Medical needed. Branch PRN edema carisoprodo 2023-0 Yes 350mg Take 1 Uni vers L 350 mg 4-08 tablet by ity of tablet 12:29: mouth in [place] [address] the Medical morning Branch and 1 tablet at noon and 1 tablet in the evening. HYDROcodone 2023-0 Yes 1{tbl} Take 1 Un nel -acetaminop 4-08 tablet by ity of hen 10-325 12:29: mouth [place] mg tablet 54 every 6 Medical (six) Branch hours as needed for Pain (scale 7-10). furosemide 2023-0 Yes 40mg Take 1 Unive rs 40 mg 4-08 tablet by ity of tablet 12:29: mouth once [place] 54 daily as Medical needed. Branch PRN edema carisoprodo 2023-0 Yes 350mg Take 1 Uni vers L 350 mg 4-08 tablet by ity of tablet 12:29: mouth in [place] [address] the Medical morning Branch and 1 tablet at noon and 1 tablet in the evening. ipratropium 2023-0 Yes .5mg 0.5 mg, Uni vers (ATROVENT) 4-08 Inhalation ity of 0.02 % 05:00: , Q4H, [place] nebulizer 00 First dose Medi pablito solution on Fri Branch 0.5 mg 08/10/22 at 0000, Until Discontinu ed, Routine atorvastati 2022-0 Yes 10mg 10 mg, Univ ers n (LIPITOR) 4-08 Oral, QHS, it y of tablet 10 02:00: First dose [place] mg 00 on Fri Medical 08/09/22 at Branch 2100, Until Discontinu ed, Routine amitriptyli 2022-0 Yes 50mg 50 mg, Univ ers ne (ELAVIL) 4-08 Oral, QHS, it y of tablet 50 02:00: First dose [place] mg 00 on Fri Medical 08/09/22 at Branch 2100, Until Discontinu ed, Routine Sliding 2022-0 Yes Subcutaneo Univ ers Scale 4-08 us, TID ity of Insulin - 02:00: MEALS+HS, [place] Lispro 00 First dose Medical (HumaLOG) + (after Branch Fsbg last Testing modificati on) on Fri08/09/22 at 2100, Until Discontinu ed, Routine ranolazine 2022-0 Yes 500mg 500 mg, Uni vers (RANEXA) 12 -08 Oral, BID, it y of hr tablet 01:30: First dose [place] 500 mg 00 on Fri Medical 08/09/22 at Branch 2030, Until Discontinu ed carvediloL 2022-0 Yes 3.125mg 3.125 mg, Univers (COREG) 4-08 Oral, BID ity of tablet 01:30: MEALS, [place] 3.125 mg 00 First dose Medic al on Fri [place] 08/09/22 at 2030, Until Discontinu ed, Routine carisoprodo 2022-0 Yes 350mg 350 mg, Un nel L (SOMA) 4-08 Oral, TID, ity o f tablet 350 01:30: First dose [place] mg 00 on Fri Medical 08/09/22 at Branch 2030, Until Discontinu ed, Routine budesonide 2022-0 Yes .5mg 0.5 mg, Univ ers (PULMICORT 4-08 Inhalation ity of RESPULE) 01:30: , BID, [place] nebulizer 00 First dose Medi pablito solution on Fri Branch 0.5 mg 08/09/22 at 2030, Until Discontinu ed, Routine nitroglycer 0 Yes .4mg 0.4 mg, Uni vers in 08-10 Sublingual ity of (NITROSTAT) 01:21: , Q5MIN [place] sublingual 33 PRN, Medical tablet 0.4 Starting Branc h mg on Fri08/09/22 at 2020, Until Discontinu ed, Routine, Chest pain levalbutero 0 Yes .63mg 0.63 mg, U nivers l (XOPENEX) 08-10 Inhalation it y of nebulizer 01:15: , Q4H, [place] solution 00 First dose Medic al 0.63 mg on Fri Branch 08/09/22 at 2015, Until Discontinu ed, Routine glucagon Yes 1mg 1 mg, Univers (GLUCAGEN 08-09 Intramuscu ity of DIAGNOSTIC 22:16: lar, PRN, [place] KIT) 25 Starting Medical injection 1 on Fri Branch mg 08/09/22 at 1716, Until Discontinu ed, JOEY, Blood Glucose < or = 70 mg/dL and patient is NPO, unable to swallow or has mental changes. dextrose 50 0 Yes 25mL 25 mL, Univ ers % in water 08-09 Slow IV ity of (D50W) 22:16: Push, PRN, [place] injection 25 Starting Medica l 25 mL on Fri Branch 08/09/22 at 1716, Until Discontinu ed, JOEY, Blood Glucose < or = 70 mg/dL and patient is NPO, unable to swallow or has mental status changes. enoxaparin 0 2022- No 40mg 40 mg, Univ ers (LOVENOX) 08-09 04-08 Subcutaneo ity of injection 22:00: 01:22 us, DAILY, [place] 40 mg 00 :56 First dose Medical on Fri Branch 08/09/22 at 1700, Until Discontinu ed, Routine hydralAZINE 0 Yes 10mg 10 mg, Univ ers (APRESOLINE 08-09 Slow IV ity o f ) injection 21:16: Push, [place] 10 mg 56 Q4HPRN, Medical Starting Branch on Fri08/09/22 at 1616, Until Discontinu ed, STAT, DBP=>100; SBP=>180 nicotine 2022-0 Yes 1{patch 1 Patch, Un nel (NICODERM) 08-09 } Topical, ity o f 21 mg/24 hr 21:15: Administer [place] patch 1 00 over 24 Medical Patch Hours, Branch Q24H, First dose on Fri08/09/22 at 1615, Until Discontinu ed, Routine HYDROcodone 2022-0 Yes 1{tbl} 1 tablet, Univers -acetaminop 08-09 Oral, ity of hen (NORCO) 20:14: Q6HPRN, [place] 10-325 mg 07 Starting Medica l tablet 1 on Fri Branch tablet 08/09/22 at 1514, Until Discontinu ed, Routine, Pain (scale 7-10) HYDROcodone 2022-0 2022- No 1{tbl} 1 tablet, Univers -acetaminop 08-09 04-09 Oral, ity of hen (NORCO 20:14: 20:13 Q6HPRN, [place] 5) 5-325 mg 05 :05 Starting Medi pablito tablet 1 on Fri Branch tablet 08/09/22 at 1514, Until 08/11/22 at 1513, Routine, Pain (scale 4-6) acetaminoph Yes 650mg 650 mg, Un nel en 08-09 Oral, ity of (TYLENOL) 20:14: Q6HPRN, [place] tablet 650 04 Starting Medic al mg on Fri Branch 08/09/22 at 1514, Until Discontinu ed, Routine, Pain (scale 1-3) levalbutero 2022-0 2022- No 3.75mg 3.75 mg, Univers l (XOPENEX) 08-09 Inhalation i ty of nebulizer 20:00: 19:09 , ONCE, 1 [place] solution 00 :00 dose, On Medical 3.75 mg Fri08/09/22 Branch at 1500, Routine magnesium 2022-0 2022- No 2g 2 g, IV Univ ers sulfate in 08-09 Piggyback, it y of water 2 19:45: 20:07 Administer [place] gram/50 mL 00 :00 over 60 Medica l (4 %) Minutes, Branch infusion 2 ONCE, 1 g dose, On Fri08/09/22 at 1445, Routine levalbutero 2022-0 2022- No 1.25mg 1.25 mg, Univers l (XOPENEX) 08-09 Inhalation i ty of nebulizer 18:45: 18:03 , ONCE, 1 [place] solution 00 :00 dose, On Medical 1.25 mg Fri08/09/22 Branch at 1345, Routine ipratropium 2022- No .5mg 0.5 mg, Un nel (ATROVENT) 08-09 Inhalation it y of 0.02 % 18:00: 17:17 , ONCE, 1 [place] nebulizer 00 :00 dose, On Medica l solution Fri08/09/22 Branc h 0.5 mg at 1300, JOEY levalbutero 2022- No 1.25mg 1.25 mg, Univers l (XOPENEX) 08-09 Inhalation i ty of nebulizer 18:00: 17:17 , ONCE, 1 [place] solution 00 :00 dose, On Medical 1.25 mg Fri08/09/22 Branch at 1300, Routine methylpredn 2022- No 125mg 125 mg, U nivers isolone sod 08-09 Slow IV ity of succ 18:00: 17:20 Push, ONCE [place] (SOLU-MEDRO 00 :00 NOW, 1 Medica l L) dose, On Branch injection Fri08/09/22 125 mg at 1300, JOEY CARVEDILOL 2022-0 Yes [id number] TAKE 1 U nivers 3.125 mg 3-29 TABLET BY ity of tablet 00:00: MOUTH IN [place] [address] [facility] MORNING Branch AND IN THE EVENING WITH MEALS CARVEDILOL 2022-0 Yes [id number] TAKE 1 U nivers 3.125 mg 3-29 TABLET BY ity of tablet 00:00: MOUTH IN [address] MORNING [place] AND IN THE EVENING WITH MEALS CARVEDILOL 2022-0 Yes [id number] TAKE 1 U nivers 3.125 mg 3-29 TABLET BY [facility] tablet 00:00: MOUTH IN [address] MORNING [place] AND IN THE EVENING WITH MEALS CARVEDILOL 2022-0 Yes [id number] TAKE 1 U nivers 3.125 mg 3-29 TABLET BY [facility] of tablet 00:00: MOUTH IN [place] 00 THE Medical MORNING Branch AND IN THE EVENING WITH MEALS CARVEDILOL 2023-0 Yes [id number] TAKE 1 U nivers 3.125 mg 3-29 TABLET BY [facility] of tablet 00:00: MOUTH IN [place] 00 THE Medical MORNING Branch AND IN THE EVENING WITH MEALS CARVEDILOL 3-0 Yes [id number] TAKE 1 U nivers 3.125 mg 3-29 TABLET BY [facility] tablet 00:00: MOUTH IN [place] 00 THE Medical MORNING Branch AND IN THE EVENING WITH MEALS CARVEDILOL 3-0 Yes [id number] TAKE 1 U nivers 3.125 mg 3-29 TABLET BY [facility] tablet 00:00: MOUTH IN [place] 00 THE Medical MORNING Branch AND IN THE EVENING WITH MEALS CARVEDILOL 2022-0 Yes [id number] TAKE 1 U nivers 3.125 mg 3-29 TABLET BY [facility] tablet 00:00: MOUTH IN [place] 00 THE Medical MORNING Branch AND IN THE EVENING WITH MEALS CARVEDILOL 3-0 Yes [id number] TAKE 1 U nivers 3.125 mg 3-29 TABLET BY [facility] tablet 00:00: MOUTH IN [place] 00 THE Medical MORNING Branch AND IN THE EVENING WITH MEALS CARVEDILOL 3-0 Yes [id number] TAKE 1 U nivers 3.125 mg 3-29 TABLET BY [facility] tablet 00:00: MOUTH IN [place] 00 THE Medical MORNING Branch AND IN THE EVENING WITH MEALS CARVEDILOL 3-0 Yes [id number] TAKE 1 U nivers 3.125 mg 3-29 TABLET BY [facility] tablet 00:00: MOUTH IN [place] 00 THE Medical MORNING Branch AND IN THE EVENING WITH MEALS CARVEDILOL 3-0 Yes [id number] TAKE 1 U nivers 3.125 mg 3-29 TABLET BY [facility] tablet 00:00: MOUTH IN [place] 00 THE Medical MORNING Branch AND IN THE EVENING WITH MEALS CARVEDILOL 3-0 Yes [id number] TAKE 1 U nivers 3.125 mg 3-29 TABLET BY [facility] tablet 00:00: MOUTH IN [place] [address] THE Medical MORNING Branch AND IN THE EVENING WITH MEALS CARVEDILOL 3-0 Yes [id number] TAKE 1 U nivers 3.125 mg 3-29 TABLET BY [facility] of tablet 00:00: MOUTH IN [place] 00 THE Medical MORNING Branch AND IN THE EVENING WITH MEALS CARVEDILOL 2022-0 Yes [id number] TAKE 1 U nivers 3.125 mg 3-29 TABLET BY [facility] tablet 00:00: MOUTH IN [place] 00 THE Medical MORNING Branch AND IN THE EVENING WITH MEALS CARVEDILOL 2022-0 Yes [id number] TAKE 1 U nivers 3.125 mg 3-29 TABLET BY [facility] tablet 00:00: MOUTH IN [place] 00 THE Medical MORNING Branch AND IN THE EVENING WITH MEALS CARVEDILOL 2022-0 Yes [id number] TAKE 1 U nivers 3.125 mg 3-29 TABLET BY [facility] tablet 00:00: MOUTH IN [place] 00 THE Medical MORNING Branch AND IN THE EVENING WITH MEALS CARVEDILOL 2022-0 Yes [id number] TAKE 1 U nivers 3.125 mg 3-29 TABLET BY [facility] tablet 00:00: MOUTH IN [place] 00 THE Medical MORNING Branch AND IN THE EVENING WITH MEALS CARVEDILOL 2022-0 Yes [id number] TAKE 1 U nivers 3.125 mg 3-29 TABLET BY [facility] tablet 00:00: MOUTH IN [place] 00 THE Medical MORNING Branch AND IN THE EVENING WITH MEALS CARVEDILOL 2022-0 Yes [id number] TAKE 1 U nivers 3.125 mg 3-29 TABLET BY [facility] tablet 00:00: MOUTH IN [place] 00 THE Medical MORNING Branch AND IN THE EVENING WITH MEALS CARVEDILOL 2022-0 Yes [id number] TAKE 1 U nivers 3.125 mg 3-29 TABLET BY [facility] tablet 00:00: MOUTH IN [place] 00 THE Medical MORNING Branch AND IN THE EVENING WITH MEALS CARVEDILOL 2022-0 Yes [id number] TAKE 1 U nivers 3.125 mg 3-29 TABLET BY [facility] tablet 00:00: MOUTH IN [place] 00 THE Medical MORNING Branch AND IN THE EVENING WITH MEALS CARVEDILOL 2022-0 Yes [id number] TAKE 1 U nivers 3.125 mg 3-29 TABLET BY [facility] of tablet 00:00: MOUTH IN [place] [address] THE Medical MORNING Branch AND IN THE EVENING WITH MEALS CARVEDILOL 2022-0 Yes [id number] TAKE 1 U nivers 3.125 mg 3-29 TABLET BY [facility] tablet 00:00: MOUTH IN [place] 00 THE Medical MORNING Branch AND IN THE EVENING WITH MEALS CARVEDILOL 2022-0 Yes [id number] TAKE 1 U nivers 3.125 mg 3-29 TABLET BY [facility] tablet 00:00: MOUTH IN [place] 00 THE Medical MORNING Branch AND IN THE EVENING WITH MEALS CARVEDILOL 2022-0 Yes [id number] TAKE 1 U nivers 3.125 mg 3-29 TABLET BY [facility] tablet 00:00: MOUTH IN [place] 00 THE Medical MORNING Branch AND IN THE EVENING WITH MEALS CARVEDILOL 2022-0 Yes [id number] TAKE 1 U nivers 3.125 mg 3-29 TABLET BY [facility] tablet 00:00: MOUTH IN [place] 00 THE Medical MORNING Branch AND IN THE EVENING WITH MEALS CARVEDILOL 2022-0 Yes [id number] TAKE 1 U nivers 3.125 mg 3-29 TABLET BY [facility] tablet 00:00: MOUTH IN [place] 00 THE Medical MORNING Branch AND IN THE EVENING WITH MEALS CARVEDILOL 2022-0 Yes [id number] TAKE 1 U nivers 3.125 mg 3-29 TABLET BY [facility] tablet 00:00: MOUTH IN [place] 00 THE Medical MORNING Branch AND IN THE EVENING WITH MEALS CARVEDILOL 2022-0 Yes [id number] TAKE 1 U nivers 3.125 mg 3-29 TABLET BY [facility] tablet 00:00: MOUTH IN [place] 00 THE Medical MORNING Branch AND IN THE EVENING WITH MEALS CARVEDILOL 2022-0 Yes [id number] TAKE 1 U nivers 3.125 mg 3-29 TABLET BY [facility] tablet 00:00: MOUTH IN [place] 00 THE Medical MORNING Branch AND IN THE EVENING WITH MEALS CARVEDILOL 2022-0 Yes [id number] TAKE 1 U nivers 3.125 mg 3-29 TABLET BY [facility] tablet 00:00: MOUTH IN [place] 00 THE Medical MORNING Branch AND IN THE EVENING WITH MEALS CARVEDILOL 2022-0 Yes [id number] TAKE 1 U nivers 3.125 mg 3-29 TABLET BY [facility] tablet 00:00: MOUTH IN [place] 00 THE Medical MORNING Branch AND IN THE EVENING WITH MEALS CARVEDILOL 2022-0 Yes [id number] TAKE 1 U nivers 3.125 mg 3-29 TABLET BY [facility] tablet 00:00: MOUTH IN [place] [address] THE Medical MORNING Branch AND IN THE EVENING WITH MEALS CARVEDILOL 3-0 Yes [id number] TAKE 1 U nivers 3.125 mg 3-29 TABLET BY [facility] tablet 00:00: MOUTH IN [place] 00 THE Medical MORNING Branch AND IN THE EVENING WITH MEALS CARVEDILOL 3-0 Yes [id number] TAKE 1 U nivers 3.125 mg 3-29 TABLET BY [facility] tablet 00:00: MOUTH IN [place] 00 THE Medical MORNING Branch AND IN THE EVENING WITH MEALS CARVEDILOL 2022-0 Yes [id number] TAKE 1 U nivers 3.125 mg 3-29 TABLET BY [facility] tablet 00:00: MOUTH IN [place] 00 THE Medical MORNING Branch AND IN THE EVENING WITH MEALS CARVEDILOL 2022-0 Yes [id number] TAKE 1 U nivers 3.125 mg 3-29 TABLET BY [facility] tablet 00:00: MOUTH IN [place] 00 THE Medical MORNING Branch AND IN THE EVENING WITH MEALS CARVEDILOL 2022-0 Yes [id number] TAKE 1 U nivers 3.125 mg 3-29 TABLET BY [facility] tablet 00:00: MOUTH IN [place] 00 THE Medical MORNING Branch AND IN THE EVENING WITH MEALS CARVEDILOL 2022-0 Yes [id number] TAKE 1 U nivers 3.125 mg 3-29 TABLET BY [facility] tablet 00:00: MOUTH IN [place] 00 THE Medical MORNING Branch AND IN THE EVENING WITH MEALS CARVEDILOL 2022-0 Yes [id number] TAKE 1 U nivers 3.125 mg 3-29 TABLET BY [facility] tablet 00:00: MOUTH IN [place] 00 THE Medical MORNING Branch AND IN THE EVENING WITH MEALS CARVEDILOL 2022-0 Yes [id number] TAKE 1 U nivers 3.125 mg 3-29 TABLET BY [facility] tablet 00:00: MOUTH IN [place] 00 THE Medical MORNING Branch AND IN THE EVENING WITH MEALS CARVEDILOL 2022-0 Yes [id number] TAKE 1 U nivers 3.125 mg 3-29 TABLET BY [facility] tablet 00:00: MOUTH IN [place] 00 THE Medical MORNING Branch AND IN THE EVENING WITH MEALS CARVEDILOL 2022-0 Yes [id number] TAKE 1 U nivers 3.125 mg 3-29 TABLET BY [facility] tablet 00:00: MOUTH IN [place] [address] THE Medical MORNING Branch AND IN THE EVENING WITH MEALS CARVEDILOL 2023-0 Yes [id number] TAKE 1 U nivers 3.125 mg 3-29 TABLET BY [facility] tablet 00:00: MOUTH IN [place] 00 THE Medical MORNING Branch AND IN THE EVENING WITH MEALS CARVEDILOL 2023-0 Yes [id number] TAKE 1 U nivers 3.125 mg 3-29 TABLET BY [facility] tablet 00:00: MOUTH IN [place] 00 THE Medical MORNING Branch AND IN THE EVENING WITH MEALS CARVEDILOL 2022-0 Yes [id number] TAKE 1 U nivers 3.125 mg 3-29 TABLET BY [facility] tablet 00:00: MOUTH IN [place] 00 THE Medical MORNING Branch AND IN THE EVENING WITH MEALS CARVEDILOL 2022-0 Yes [id number] TAKE 1 U nivers 3.125 mg 3-29 TABLET BY [facility] tablet 00:00: MOUTH IN [place] 00 THE Medical MORNING Branch AND IN THE EVENING WITH MEALS CARVEDILOL 2022-0 Yes [id number] TAKE 1 U nivers 3.125 mg 3-29 TABLET BY [facility] tablet 00:00: MOUTH IN [place] 00 THE Medical MORNING Branch AND IN THE EVENING WITH MEALS CARVEDILOL 2022-0 Yes [id number] TAKE 1 U nivers 3.125 mg 3-29 TABLET BY [facility] tablet 00:00: MOUTH IN [place] 00 THE Medical MORNING Branch AND IN THE EVENING WITH MEALS CARVEDILOL 2022-0 Yes [id number] TAKE 1 U nivers 3.125 mg 3-29 TABLET BY [facility] tablet 00:00: MOUTH IN [place] 00 THE Medical MORNING Branch AND IN THE EVENING WITH MEALS CARVEDILOL 2022-0 Yes [id number] TAKE 1 U nivers 3.125 mg 3-29 TABLET BY [facility] tablet 00:00: MOUTH IN [place] 00 THE Medical MORNING Branch AND IN THE EVENING WITH MEALS CARVEDILOL 2022-0 Yes [id number] TAKE 1 U nivers 3.125 mg 3-29 TABLET BY [facility] tablet 00:00: MOUTH IN [place] 00 THE Medical MORNING Branch AND IN THE EVENING WITH MEALS CARVEDILOL 2022-0 Yes [id number] TAKE 1 U nivers 3.125 mg 3-29 TABLET BY [facility] tablet 00:00: MOUTH IN [place] 00 THE Medical MORNING Branch AND IN THE EVENING WITH MEALS CARVEDILOL 2022-0 Yes [id number] TAKE 1 U nivers 3.125 mg 3-29 TABLET BY [facility] tablet 00:00: MOUTH IN [place] [address] THE Medical MORNING Branch AND IN THE EVENING WITH MEALS CARVEDILOL 2022-0 Yes [id number] TAKE 1 U nivers 3.125 mg 3-29 TABLET BY [facility] tablet 00:00: MOUTH IN [place] 00 THE Medical MORNING Branch AND IN THE EVENING WITH MEALS CARVEDILOL 3-0 Yes [id number] TAKE 1 U nivers 3.125 mg 3-29 TABLET BY [facility] tablet 00:00: MOUTH IN [place] 00 THE Medical MORNING Branch AND IN THE EVENING WITH MEALS CARVEDILOL 2023-0 Yes [id number] TAKE 1 U nivers 3.125 mg 3-29 TABLET BY [facility] tablet 00:00: MOUTH IN [place] 00 THE Medical MORNING Branch AND IN THE EVENING WITH MEALS CARVEDILOL 2022-0 Yes [id number] TAKE 1 U nivers 3.125 mg 3-29 TABLET BY [facility] tablet 00:00: MOUTH IN [place] 00 THE Medical MORNING Branch AND IN THE EVENING WITH MEALS CARVEDILOL 2022-0 Yes [id number] TAKE 1 U nivers 3.125 mg 3-29 TABLET BY [facility] tablet 00:00: MOUTH IN [place] 00 THE Medical MORNING Branch AND IN THE EVENING WITH MEALS CARVEDILOL 2022-0 Yes [id number] TAKE 1 U nivers 3.125 mg 3-29 TABLET BY [facility] tablet 00:00: MOUTH IN [place] 00 THE Medical MORNING Branch AND IN THE EVENING WITH MEALS CARVEDILOL 2022-0 Yes [id number] TAKE 1 U nivers 3.125 mg 3-29 TABLET BY [facility] tablet 00:00: MOUTH IN [place] 00 THE Medical MORNING Branch AND IN THE EVENING WITH MEALS CARVEDILOL 3-0 Yes [id number] TAKE 1 U nivers 3.125 mg 3-29 TABLET BY [facility] tablet 00:00: MOUTH IN [place] 00 THE Medical MORNING Branch AND IN THE EVENING WITH MEALS CARVEDILOL 3-0 Yes [id number] TAKE 1 U nivers 3.125 mg 3-29 TABLET BY [facility] tablet 00:00: MOUTH IN [place] 00 THE Medical MORNING Branch AND IN THE EVENING WITH MEALS CARVEDILOL 2023-0 Yes [id number] TAKE 1 U nivers 3.125 mg 3-29 TABLET BY [facility] tablet 00:00: MOUTH IN [place] [address] THE Medical MORNING Branch AND IN THE EVENING WITH MEALS CARVEDILOL 2023-0 Yes [id number] TAKE 1 U nivers 3.125 mg 3-29 TABLET BY [facility] tablet 00:00: MOUTH IN [place] [address] THE Medical MORNING Branch AND IN THE EVENING WITH MEALS CARVEDILOL 2022-0 Yes [id number] TAKE 1 U nivers 3.125 mg 3-29 TABLET BY [facility] tablet 00:00: MOUTH IN [place] 00 THE Medical MORNING Branch AND IN THE EVENING WITH MEALS CARVEDILOL 2022-0 Yes [id number] TAKE 1 U nivers 3.125 mg 3-29 TABLET BY [facility] tablet 00:00: MOUTH IN [place] 00 THE Medical MORNING Branch AND IN THE EVENING WITH MEALS CARVEDILOL 2022-0 Yes [id number] TAKE 1 U nivers 3.125 mg 3-29 TABLET BY [facility] tablet 00:00: MOUTH IN [place] 00 THE Medical MORNING Branch AND IN THE EVENING WITH MEALS CARVEDILOL 2022-0 Yes [id number] TAKE 1 U nivers 3.125 mg 3-29 TABLET BY [facility] tablet 00:00: MOUTH IN [place] 00 THE Medical MORNING Branch AND IN THE EVENING WITH MEALS CARVEDILOL 2022-0 Yes [id number] TAKE 1 U nivers 3.125 mg 3-29 TABLET BY [facility] tablet 00:00: MOUTH IN [place] 00 THE Medical MORNING Branch AND IN THE EVENING WITH MEALS CARVEDILOL 2022-0 Yes [id number] TAKE 1 U nivers 3.125 mg 3-29 TABLET BY [facility] tablet 00:00: MOUTH IN [place] 00 THE Medical MORNING Branch AND IN THE EVENING WITH MEALS CARVEDILOL 2022-0 Yes [id number] TAKE 1 U nivers 3.125 mg 3-29 TABLET BY [facility] tablet 00:00: MOUTH IN [place] 00 THE Medical MORNING Branch AND IN THE EVENING WITH MEALS CARVEDILOL 2022-0 Yes [id number] TAKE 1 U nivers 3.125 mg 3-29 TABLET BY [facility] tablet 00:00: MOUTH IN [place] 00 THE Medical MORNING Branch AND IN THE EVENING WITH MEALS CARVEDILOL 2022-0 Yes [id number] TAKE 1 U nivers 3.125 mg 3-29 TABLET BY [facility] tablet 00:00: MOUTH IN [place] 00 THE Medical MORNING Branch AND IN THE EVENING WITH MEALS CARVEDILOL 2022-0 Yes [id number] TAKE 1 U nivers 3.125 mg 3-29 TABLET BY [facility] tablet 00:00: MOUTH IN [place] 00 THE Medical MORNING Branch AND IN THE EVENING WITH MEALS CARVEDILOL 2022-0 Yes [id number] TAKE 1 U nivers 3.125 mg 3-29 TABLET BY [facility] tablet 00:00: MOUTH IN [place] 00 THE Medical MORNING Branch AND IN THE EVENING WITH MEALS CARVEDILOL 3-0 Yes [id number] TAKE 1 U nivers 3.125 mg 3-29 TABLET BY [facility] tablet 00:00: MOUTH IN [place] 00 THE Medical MORNING Branch AND IN THE EVENING WITH MEALS CARVEDILOL 202-0 Yes [id number] TAKE 1 U nivers 3.125 mg 3-29 TABLET BY [facility] tablet 00:00: MOUTH IN [place] 00 THE Medical MORNING Branch AND IN THE EVENING WITH MEALS CARVEDILOL 2022-0 Yes [id number] TAKE 1 U nivers 3.125 mg 3-29 TABLET BY [facility] tablet 00:00: MOUTH IN [place] 00 THE Medical MORNING Branch AND IN THE EVENING WITH MEALS CARVEDILOL 2022-0 Yes [id number] TAKE 1 U nivers 3.125 mg 3-29 TABLET BY [facility] tablet 00:00: MOUTH IN [place] 00 THE Medical MORNING Branch AND IN THE EVENING WITH MEALS CARVEDILOL 2022-0 Yes [id number] TAKE 1 U nivers 3.125 mg 3-29 TABLET BY [facility] tablet 00:00: MOUTH IN [place] 00 THE Medical MORNING Branch AND IN THE EVENING WITH MEALS CARVEDILOL 2022-0 Yes [id number] TAKE 1 U nivers 3.125 mg 3-29 TABLET BY [facility] tablet 00:00: MOUTH IN [place] 00 THE Medical MORNING Branch AND IN THE EVENING WITH MEALS CARVEDILOL 2022-0 Yes [id number] TAKE 1 U nivers 3.125 mg 3-29 TABLET BY [facility] tablet 00:00: MOUTH IN [place] 00 THE Medical MORNING Branch AND IN THE EVENING WITH MEALS CARVEDILOL 2022-0 Yes [id number] TAKE 1 U nivers 3.125 mg 3-29 TABLET BY [facility] tablet 00:00: MOUTH IN [place] 00 THE Medical MORNING Branch AND IN THE EVENING WITH MEALS CARVEDILOL 3-0 Yes [id number] TAKE 1 U nivers 3.125 mg 3-29 TABLET BY [facility] tablet 00:00: MOUTH IN [place] [address] THE Medical MORNING Branch AND IN THE EVENING WITH MEALS CARVEDILOL 2023-0 Yes [id number] TAKE 1 U nivers 3.125 mg 3-29 TABLET BY [facility] tablet 00:00: MOUTH IN [place] 00 THE Medical MORNING Branch AND IN THE EVENING WITH MEALS CARVEDILOL 2023-0 Yes [id number] TAKE 1 U nivers 3.125 mg 3-29 TABLET BY [facility] tablet 00:00: MOUTH IN [place] 00 THE Medical MORNING Branch AND IN THE EVENING WITH MEALS CARVEDILOL 2022-0 Yes [id number] TAKE 1 U nivers 3.125 mg 3-29 TABLET BY [facility] tablet 00:00: MOUTH IN [place] 00 THE Medical MORNING Branch AND IN THE EVENING WITH MEALS CARVEDILOL 2022-0 Yes [id number] TAKE 1 U nivers 3.125 mg 3-29 TABLET BY [facility] tablet 00:00: MOUTH IN [place] 00 THE Medical MORNING Branch AND IN THE EVENING WITH MEALS CARVEDILOL 2022-0 Yes [id number] TAKE 1 U nivers 3.125 mg 3-29 TABLET BY [facility] tablet 00:00: MOUTH IN [place] [address] THE Medical MORNING Branch AND IN THE EVENING WITH MEALS CARVEDILOL 2022-0 Yes [id number] TAKE 1 U nivers 3.125 mg 3-29 TABLET BY [facility] tablet 00:00: MOUTH IN [place] 00 THE Medical MORNING Branch AND IN THE EVENING WITH MEALS CARVEDILOL 2022-0 Yes [id number] TAKE 1 U nivers 3.125 mg 3-29 TABLET BY [facility] tablet 00:00: MOUTH IN [place] 00 THE Medical MORNING Branch AND IN THE EVENING WITH MEALS CARVEDILOL 3-0 Yes [id number] TAKE 1 U nivers 3.125 mg 3-29 TABLET BY [facility] tablet 00:00: MOUTH IN [place] 00 THE Medical MORNING Branch AND IN THE EVENING WITH MEALS CARVEDILOL 3-0 Yes [id number] TAKE 1 U nivers 3.125 mg 3-29 TABLET BY [facility] tablet 00:00: MOUTH IN [place] [address] THE Medical MORNING Branch AND IN THE EVENING WITH MEALS CARVEDILOL 3-0 Yes [id number] TAKE 1 U nivers 3.125 mg 3-29 TABLET BY [facility] tablet 00:00: MOUTH IN [place] [address] THE Medical MORNING Branch AND IN THE EVENING WITH MEALS CARVEDILOL 2023-0 Yes [id number] TAKE 1 U nivers 3.125 mg 3-29 TABLET BY [facility] tablet 00:00: MOUTH IN [place] 00 THE Medical MORNING Branch AND IN THE EVENING WITH MEALS CARVEDILOL 2023-0 Yes [id number] TAKE 1 U nivers 3.125 mg 3-29 TABLET BY [facility] tablet 00:00: MOUTH IN [place] 00 THE Medical MORNING Branch AND IN THE EVENING WITH MEALS CARVEDILOL 2022-0 Yes [id number] TAKE 1 U nivers 3.125 mg 3-29 TABLET BY [facility] tablet 00:00: MOUTH IN [place] 00 THE Medical MORNING Branch AND IN THE EVENING WITH MEALS CARVEDILOL 2022-0 Yes [id number] TAKE 1 U nivers 3.125 mg 3-29 TABLET BY [facility] tablet 00:00: MOUTH IN [place] 00 THE Medical MORNING Branch AND IN THE EVENING WITH MEALS CARVEDILOL 2022-0 Yes [id number] TAKE 1 U nivers 3.125 mg 3-29 TABLET BY [facility] tablet 00:00: MOUTH IN [place] 00 THE Medical MORNING Branch AND IN THE EVENING WITH MEALS CARVEDILOL 2022-0 3- No [id number] TAKE 1 [facility] 3.125 mg 3-29 11-03 TABLET BY ity o f tablet 00:00: 00:00 MOUTH IN [place] 00 :00 THE Medical MORNING Branch AND IN THE EVENING WITH MEALS CARVEDILOL 2022-0 3- No [id number] TAKE 1 [facility] 3.125 mg 3-29 11-03 TABLET BY [facility] o f tablet 00:00: 00:00 MOUTH IN [place] 00 :00 THE Medical MORNING Branch AND IN THE EVENING WITH MEALS CARVEDILOL 2022-0 2023- No [id number] TAKE 1 [facility] 3.125 mg 3-29 11-03 TABLET BY [facility] o f tablet 00:00: 00:00 MOUTH IN [place] 00 :00 THE Medical MORNING Branch AND IN THE EVENING WITH MEALS amitriptyli 2022-0 Yes [id number] 100mg Take 1 [facility] ne 100 mg 3-28 tablet by [facility] o f tablet 00:00: mouth at [place] [address] bedtime. Medical NEEDS Branch APPOINTMEN T FOR MORE REFILLS amitriptyli 3-0 Yes [id number] 100mg Take 1 [facility] ne 100 mg 3-28 tablet by [facility] o f tablet 00:00: mouth at [place] [address] bedtime. Medical NEEDS Branch APPOINTMEN T FOR MORE REFILLS amitriptyli 2022-0 Yes [id number] 100mg Take 1 [facility] ne 100 mg 3-28 tablet by [facility] o f tablet 00:00: mouth at [place] 00 bedtime. Medical NEEDS Branch APPOINTMEN T FOR MORE REFILLS amitriptyli 2022-0 Yes [id number] 100mg Take 1 [facility] ne 100 mg 3-28 tablet by [facility] o f tablet 00:00: mouth at [place] 00 bedtime. Medical NEEDS Branch APPOINTMEN T FOR MORE REFILLS amitriptyli 2022-0 Yes [id number] 100mg Take 1 [facility] ne 100 mg 3-28 tablet by [facility] o f tablet 00:00: mouth at [place] 00 bedtime. Medical NEEDS Branch APPOINTMEN T FOR MORE REFILLS amitriptyli 2022-0 Yes [id number] 100mg Take 1 [facility] ne 100 mg 3-28 tablet by [facility] o f tablet 00:00: mouth at [place] 00 bedtime. Medical NEEDS Branch APPOINTMEN T FOR MORE REFILLS amitriptyli 2022-0 Yes [id number] 100mg Take 1 [facility] ne 100 mg 3-28 tablet by [facility] o f tablet 00:00: mouth at [place] 00 bedtime. Medical NEEDS Branch APPOINTMEN T FOR MORE REFILLS amitriptyli 2022-0 Yes [id number] 100mg Take 1 [facility] ne 100 mg 3-28 tablet by [facility] o f tablet 00:00: mouth at [place] [address] bedtime. Medical NEEDS Branch APPOINTMEN T FOR MORE REFILLS amitriptyli 2022-0 Yes [id number] 100mg Take 1 [facility] ne 100 mg 3-28 tablet by [facility] o f tablet 00:00: mouth at [place] [address] bedtime. Medical NEEDS Branch APPOINTMEN T FOR MORE REFILLS amitriptyli 2022-0 Yes [id number] 100mg Take 1 [facility] 100 mg 3-28 tablet by [facility] o f tablet 00:00: mouth at [place] 00 bedtime. Medical NEEDS Branch APPOINTMEN T FOR MORE REFILLS amitriptyli 2022-0 Yes [id number] 100mg Take 1 [facility] 100 mg 3-28 tablet by [facility] o f tablet 00:00: mouth at [place] 00 bedtime. Medical NEEDS Branch APPOINTMEN T FOR MORE REFILLS amitriptyli 2022-0 Yes [id number] 100mg Take 1 [facility] 100 mg 3-28 tablet by [facility] o f tablet 00:00: mouth at [place] 00 bedtime. Medical NEEDS Branch APPOINTMEN T FOR MORE REFILLS amitriptyli 3-0 Yes [id number] 100mg Take 1 [facility] 100 mg 3-28 tablet by [facility] o f tablet 00:00: mouth at [place] 00 bedtime. Medical NEEDS Branch APPOINTMEN T FOR MORE REFILLS amitriptyli 2022-0 Yes [id number] 100mg Take 1 [facility] 100 mg 3-28 tablet by [facility] o f tablet 00:00: mouth at [place] 00 bedtime. Medical NEEDS Branch APPOINTMEN T FOR MORE REFILLS amitriptyli 0 Yes [id number] 100mg Take 1 [facility] 100 mg 3-28 tablet by [facility] o f tablet 00:00: mouth at [place] 00 bedtime. Medical NEEDS Branch APPOINTMEN T FOR MORE REFILLS amitriptyli 0 Yes [id number] 100mg Take 1 [facility] 100 mg 3-28 tablet by [facility] o f tablet 00:00: mouth at [place] 00 bedtime. Medical NEEDS Branch APPOINTMEN T FOR MORE REFILLS amitriptyli 0 Yes [id number] 100mg Take 1 [facility] 100 mg 3-28 tablet by [facility] o f tablet 00:00: mouth at [place] 00 bedtime. Medical NEEDS Branch APPOINTMEN T FOR MORE REFILLS amitriptyli 0 Yes [id number] 100mg Take 1 [facility] 100 mg 3-28 tablet by [facility] o f tablet 00:00: mouth at [place] 00 bedtime. Medical NEEDS Branch APPOINTMEN T FOR MORE REFILLS amitriptyli 0 Yes [id number] 100mg Take 1 [facility] 100 mg 3-28 tablet by [facility] o f tablet 00:00: mouth at [place] 00 bedtime. Medical NEEDS Branch APPOINTMEN T FOR MORE REFILLS amitriptyli 2022-0 2022- No [id number] 100mg Take 1 [facility] 100 mg 3-28 -23 tablet by [facility] tablet 00:00: 00:00 mouth at [place] 00 :00 bedtime. Medical NEEDS Branch APPOINTMEN T FOR MORE REFILLS amitriptyli 2022-0 2022- No [id number] 100mg Take 1 [facility] 100 mg 3-28 -23 tablet by [facility] tablet 00:00: 00:00 mouth at [place] 00 :00 bedtime. Medical NEEDS Branch APPOINTMEN T FOR MORE REFILLS AMITRIPTYLI 2021-05 Yes [id number] TAKE 1 [facility] 100 mg 2-27 TABLET BY [facility] o f tablet 00:00: MOUTH AT [place] 00 BEDTIME Medical Branch AMITRIPTYLI 2021-05 Yes [id number] TAKE 1 [facility] 100 mg 2-27 TABLET BY [facility] o f tablet 00:00: MOUTH AT [place] 00 BEDTIME Medical Branch AMITRIPTYLI 2021-05 Yes [id number] TAKE 1 [facility] 100 mg 2-27 TABLET BY [facility] o f tablet 00:00: MOUTH AT [place] 00 BEDTIME Medical Branch AMITRIPTYLI 2021-05- No [id number] TAKE 1 [facility] 100 mg 2-27 03-28 TABLET BY [facility] tablet 00:00: 00:00 MOUTH AT [place] 00 :00 BEDTIME Medical Branch amLODIPine 2021-05- No 10mg 10 mg, [facility] (NORVASC) 06-05 Oral, [facility] tablet 10 19:15: 19:33 ONCE, 1 [place] 00 :[place] dose, On [facility] [place] [facility] 04/04/22 at 1315, Routine HYDROcodone 2021-05 Yes 1{tbl} Take 1 [facility] -acetaminop 2-01 tablet by [facility] of hen 10-325 14:46: mouth [place] mg tablet 57 every 6 Medical (six) Branch hours as needed for Pain (scale 7-10). furosemide 2021-05 Yes 40mg Take 40 mg [facility] nivers 40 mg 2-01 by mouth 2 [facility] of tablet 14:46: (two) [place] 57 times Medical daily as Branch needed. PRN edema clopidogreL 2021-05 Yes 75mg Take 75 mg [facility] 75 mg 2-01 by mouth [facility] of tablet 14:46: in the [place] [address] morning. Medical Branch HYDROcodone 2021-05 Yes 1{tbl} Take 1 [facility] -acetaminop 2-01 tablet by [facility] of hen 10-325 14:46: mouth [place] mg tablet 57 every 6 Medical (six) Branch hours as needed for Pain (scale 7-10). furosemide 2021-05 Yes 40mg Take 40 mg U nivers 40 mg 2-01 by mouth 2 [facility] of tablet 14:46: (two) [place] 57 times Medical daily as Branch needed. PRN edema clopidogreL 2021-05 Yes 75mg Take 75 mg [facility] 75 mg 2-01 by mouth [facility]y of tablet 14:46: in the [place] 57 morning. Medical Branch HYDROcodone 2021-05 Yes 1{tbl} Take 1 [facility] -acetaminop 2-01 tablet by [facility] of hen 10-325 14:46: mouth [place] mg tablet 57 every 6 Medical (six) Branch hours as needed for Pain (scale 7-10). furosemide 2021-05 Yes 40mg Take 40 mg U nivers 40 mg 2-01 by mouth 2 [facility] of tablet 14:46: (two) [place] 57 times Medical daily as Branch needed. PRN edema clopidogreL 2021-05 Yes 75mg Take 75 mg [facility] 75 mg 2-01 by mouth ity of tablet 14:46: in the [place] 57 morning. Medical Branch HYDROcodone 2021-05 Yes 1{tbl} Take 1 [facility] -acetaminop 2-01 tablet by [facility] of hen 10-325 14:46: mouth [place] mg tablet 57 every 6 Medical (six) Branch hours as needed for Pain (scale 7-10). furosemide 2021-05 Yes 40mg Take 40 mg [facility] nivers 40 mg 2-01 by mouth 2 [facility]y of tablet 14:46: (two) [place] 57 times Medical daily as Branch needed. PRN edema clopidogreL 2021-05 Yes 75mg Take 75 mg [facility] 75 mg 2-01 by mouth ity of tablet 14:46: in the [place] 57 morning. Medical Branch HYDROcodone 2021-05 Yes 1{tbl} Take 1 [facility] -acetaminop 2-01 tablet by [facility] hen 10-325 14:46: mouth [place] mg tablet 57 every 6 Medical (six) Branch hours as needed for Pain (scale 7-10). furosemide 2021-05 Yes 40mg Take 40 mg [facility] nivers 40 mg 2-01 by mouth 2 ity of tablet 14:46: (two) [place] 57 times Medical daily as Branch needed. PRN edema HYDROcodone 2021-05 Yes 1{tbl} Take 1 Un nel -acetaminop 2-01 tablet by ity of hen 10-325 14:46: mouth [place] mg tablet 57 every 6 Medical (six) Branch hours as needed for Pain (scale 7-10). furosemide 2021-05 Yes 40mg Take 40 mg U nivers 40 mg 2-01 by mouth 2 ity of tablet 14:46: (two) [place] 57 times Medical daily as Branch needed. PRN edema clopidogreL 2021-05 Yes 75mg Take 75 mg [facility] 75 mg 2-01 by mouth ity of tablet 14:46: in the [place] morning. Medical Branch HYDROcodone 2021-05 Yes 1{tbl} Take 1 Un nel -acetaminop 2-01 tablet by ity of hen 10-325 14:46: mouth [place] mg tablet 57 every 6 Medical (six) Branch hours as needed for Pain (scale 7-10). furosemide 2021-05 Yes 40mg Take 40 mg U nivers 40 mg 2-01 by mouth 2 ity of tablet 14:46: (two) [place] 57 times Medical daily as Branch needed. PRN edema clopidogreL 2021-05 Yes 75mg Take 75 mg [facility] 75 mg 2-01 by mouth ity of tablet 14:46: in the [place] [address] morning. Medical Branch HYDROcodone 2021-05 Yes 1{tbl} Take 1 Un nel -acetaminop 2-01 tablet by ity of hen 10-325 14:46: mouth [place] mg tablet 57 every 6 Medical (six) Branch hours as needed for Pain (scale 7-10). furosemide 2021-05 Yes 40mg Take 40 mg U nivers 40 mg 2-01 by mouth 2 ity of tablet 14:46: (two) [place] 57 times Medical daily as Branch needed. PRN edema clopidogreL 2021-05 Yes 75mg Take 75 mg [facility] 75 mg 2-01 by mouth ity of tablet 14:46: in the [place] [address] morning. Medical Branch HYDROcodone 2021-05 Yes 1{tbl} Take 1 Un nel -acetaminop 2-01 tablet by ity of hen 10-325 14:46: mouth [place] mg tablet 57 every 6 Medical (six) Branch hours as needed for Pain (scale 7-10). furosemide 2021-05 Yes 40mg Take 40 mg U nivers 40 mg 2-01 by mouth 2 ity of tablet 14:46: (two) [place] 57 times Medical daily as Branch needed. PRN edema clopidogreL 2021-05 Yes 75mg Take 75 mg [facility] 75 mg 2-01 by mouth ity of tablet 14:46: in the [place] [address] morning. Medical Branch atorvastati 2021-05 Yes 20mg 20 mg, Univ ers n (LIPITOR) 2-01 Oral, QHS, it y of tablet 20 03:00: First dose [place] mg 00 on Fri Medical 04/03/22 Branch at 2100, Until Discontinu ed, Routine predniSONE 2021-05- No [id number] 40mg Take 2 [facility] 20 mg 2 12-06 tablets by ity of tablet 00:00: 05:59 mouth [place] 00 :00 every Medical evening Branch for 4 days. clopidogreL 2021-05 Yes 75mg 75 mg, Univ ers (PLAVIX) 75 1-30 Oral, ity of mg tablet 15:00: DAILY, [place] 75 mg 00 First dose Medical on Fri Branch 04/03/22 at 0900, Until Discontinu ed, Routine docusate 2021-05 Yes 100mg 100 mg, Unive rs (COLACE) 1-30 Oral, BID, ity o f capsule 100 14:00: First dose [place] mg 00 on Fri Medical 04/03/22 Branch at 0800, Until Discontinu ed, Routine carvediloL 2021-05 Yes 3.125mg 3.125 mg, Univers (COREG) 1-30 Oral, BID ity of tablet 14:00: MEALS, [place] 3.125 mg 00 First dose Medic al on Fri Branch 04/03/22 at 0800, Until Discontinu ed, Routine Sliding 2021-05 Yes Subcutaneo Univ ers Scale 1-30 us, TID ity of Insulin - 14:00: MEALS, [place] Lispro 00 First dose Medical (HumaLOG) + on Fri Branch Fsbg 04/03/22 Testing at 0800, Until Discontinu ed, Routine azithromyci 2021-05- No 500mg 500 mg, IV Univers n 1-30 30 Piggyback, ity of (ZITHROMAX) 08:00: 16:49 Q24H ABX, [place] 500 mg in 00 :59 7 doses, Medica l NaCl 0.9% First dose Bran ch (NS) 250 mL on Fri VIAL-MATE 04/03/22 IV at 0200, piggyback Last dose on Fri04/09/22 at 0200, Administer over 60 Minutes, 250 mL
Reas on for Anti-Infec tive: Empiric Therapy for Suspected Infection< br>Empiric Therapy Site: Respirator y
Durat ion of therapy: 5 days NaCl 0.9% 2021-05 Yes 1000mL at 100 Univ ers (NS) IV 1-30 mL/hr, IV ity of infusion 07:30: Infusion, [place] 1,000 mL 00 CONTINUOUS Medic al , Starting Branch on Fri04/03/22 at 0130, Until Discontinu ed, Routine NaCl 0.9% 2021-05 500mL at 999 Univ ers (NS) bolus 1-30 11-30 mL/hr, 500 it y of infusion 07:15: 08:00 mL, IV [place] 500 mL 00 :00 Infusion, Medical ONCE, 1 Branch dose, On Fri04/03/22 at 0115, STAT ipratropium 2021-05 Yes 3mL 3 mL, Unive rs -albuteroL 1-30 Inhalation ity of (DUONEB) 07:00: , Q4H, [place] 0.5 mg-3 00 First dose Medic al mg(2.5 mg on Fri Branch base)/3 mL 04/03/22 nebulizer at 0100, solution 3 Until mL Discontinu ed, Routine predniSONE 2021-05 Yes 40mg 40 mg, Unive rs (DELTASONE) 1-30 Oral, QPM, it y of tablet 40 07:00: First dose [place] mg 00 on Fri Medical 04/03/22 Branch at 0100, Until Discontinu ed, Routine budesonide 2021-05 Yes .5mg 0.5 mg, Univ ers (PULMICORT 1-30 Inhalation ity of RESPULE) 07:00: , BID, [place] nebulizer 00 First dose Medi pablito solution on Fri Branch 0.5 mg 04/03/22 at 0100, Until Discontinu ed, Routine amitriptyli 2021-05 Yes 50mg 50 mg, Univ ers ne (ELAVIL) 1-30 Oral, QHS, it y of tablet 50 07:00: First dose [place] mg 00 on Fri Medical 04/03/22 Branch at 0100, Until Discontinu ed, Routine apixaban 2021-05 Yes 5mg 5 mg, Univers (ELIQUIS) 1-30 Oral, BID, ity of tablet 5 mg 07:00: First dose [place] 00 on Fri Medical 04/03/22 Branch at 0100, Until Discontinu ed, Routine
Indicatio ns: DVT/PE ondansetron 2021-05 Yes 4mg 4 mg, Slow Univers (ZOFRAN 1-30 IV Push, ity of (PF)) 06:58: Q6HPRN, [place] injection 4 21 Starting Medi pablito mg on Wed Branch 04/03/22 at 0058, Until Discontinu ed, Routine, Nausea and Vomiting (N/V) glucagon 2021-05 Yes 1mg 1 mg, Univers (GLUCAGEN 1-30 Intramuscu ity of DIAGNOSTIC 06:56: lar, PRN, [place] KIT) 59 Starting Medical injection 1 on Fri Branch mg 04/03/22 at 0056, Until Discontinu ed, JOEY, Blood Glucose < or = 70 mg/dL and patient is unable to swallow or has mental changes. dextrose 50 2021-05 Yes 25mL 25 mL, Univ ers % in water 1-30 Slow IV ity of (D50W) 06:56: Push, PRN, [place] injection 59 Starting Medica l 25 mL on Wed Branch 04/03/22 at 0056, Until Discontinu ed, JOEY, Blood Glucose < or = 70 mg/dL and patient is unable to swallow or has mental status changes. HYDROcodone 2021-05 Yes 1{tbl} 1 tablet, Univers -acetaminop 30 Oral, ity of hen (NORCO) 06:50: TIDPRN, [place] as 10-325 mg 03 Starting Medica l tablet 1 on Fri Branch tablet 04/03/22 at 0050, Until Discontinu ed, Routine, Pain (scale 4-6) NaCl 0.9% 2021-05- No 500mL at 999 Univ ers (NS) bolus 1-30 11-30 mL/hr, 500 it y of infusion 04:30: 05:00 mL, IV [place] 500 mL 00 :00 Infusion, Medical ONCE, 1 Branch dose, On Fri04/02/22 at 2230, STAT NaCl 0.9% 2021-05- No 500mL at 999 Univ ers (NS) bolus 1-30 11-30 mL/hr, 500 it y of infusion 01:15: 02:22 mL, IV [place] 500 mL 00 :00 Infusion, Medical ONCE, 1 Branch dose, On Fri04/02/22 at 1915, STAT HYDROcodone 2021-05 Yes 1{tbl} Take 1 Un nel -acetaminop 29 tablet by ity of hen 10-325 23:42: mouth [place] mg tablet 27 every 6 Medical (six) Branch hours as needed for Pain (scale 7-10). oseltamivir 2021-05- No [id number] 75mg Take 1 Univers 75 mg 05-29 capsule by ity of capsule 00:00: 05:59 mouth in [place] 00 :00 the Medical morning Branch and 1 capsule in the evening. Do all this for 3 days. predniSONE 2021-05- No [id number] 40mg Take 2 U nivers 20 mg 05-29 tablets by ity of tablet 00:00: 05:59 mouth in [place] 00 :00 the Medical morning Branch for 2 days. HYDROcodone 2021-05 Yes 1{tbl} Take 1 Un nel -acetaminop -24 tablet by ity of hen [id number] 11:35: mouth [place] mg tablet 25 every 6 Medical (six) Branch hours as needed for Pain (scale 7-10). furosemide 2021-05 Yes 40mg Take 40 mg U nivers 40 mg 24 by mouth 2 ity of tablet 11:35: (two) [place] 25 times Medical daily as Branch needed. PRN edema clopidogreL 2021-05 Yes 75mg Take 75 mg Univers (PLAVIX) 75 24 by mouth ity of mg tablet 11:35: in the [place] 25 morning. Medical Branch clopidogreL 2021-05 Yes 75mg 75 mg, Univ ers (PLAVIX) 75 05-27 Oral, ity of mg tablet 15:00: DAILY, [place] 75 mg 00 First dose Medical on Fri Branch 03/27/22 at 0900, Until Discontinu ed, Routine predniSONE 2021-05- No 40mg 40 mg, Univ ers (DELTASONE) 05-27 Oral, ity of tablet 40 15:00: 14:59 DAILY, 5 [place] mg 00 :00 doses, Medical First dose Branch on Fri03/27/22 at 0900, Last dose on 03/31/22 at 0900, Routine atorvastati 2021-05 Yes 10mg 10 mg, Univ ers n (LIPITOR) 05-27 Oral, QHS, it y of tablet 10 03:00: First dose [place] mg 00 on Fri Medical 03/26/22 Branch at 2100, Until Discontinu ed, Routine amitriptyli 2021-05 Yes 100mg 100 mg, Un nel ne (ELAVIL) 05-27 Oral, QHS, it y of tablet 100 03:00: First dose [place] mg 00 on [facility] 03/26/22 Branch at 2100, Until Discontinu ed, Routine ranolazine 2021-05 Yes 500mg 500 mg, Uni vers (RANEXA) 12 05-27 Oral, BID, it y of hr tablet 02:00: First dose [place] 500 mg 00 on [facility] 03/26/22 Branch at 2000, Until Discontinu ed budesonide 2021-05 Yes .5mg 0.5 mg, [facility] ers (PULMICORT 05-27 Inhalation ity of RESPULE) 02:00: , BID, [place] nebulizer First dose Medi pablito solution on [facility] 0.5 mg 03/26/22 at 2000, Until Discontinu ed, Routine apixaban 2021-05 Yes 5mg 5 mg, Univers (ELIQUIS) 05-27 Oral, BID, ity of tablet 5 mg 02:00: First dose [place] 00 on [facility] 03/26/22 Branch at 2000, Until Discontinu ed, Routine
Indicatio ns: DVT/PE oseltamivir 2021-05 No 75mg 75 mg, Uni vers (TAMIFLU) 05-27 Oral, BID, ity of capsule 75 02:00: 01:59 10 doses, [place] mg 00 :00 First dose Medical on [facility] 03/26/22 at 2000, Last dose on 03/31/22 at 0800, Routine benzocaine- 2021-05 Yes 1{lozen 1 Lozenge, Univers menthoL 05-26 ge} Oral, ity of (CEPACOL 23:47: Q4HPRN, [place] SORE THROAT 26 Starting Medi pablito (MILLY-MEN)) on [facility] lozenge 1 03/26/22 Lozenge at 1747, Until Discontinu ed, Routine, Sore throat Sliding 2021-05 Yes Subcutaneo [facility] ers Scale - us, TID ity of Insulin - 23:00: MEALS+HS, [place] Lispro 00 First dose Medical (HumaLOG) + on [facility] Fsbg 03/26/22 Testing at 1700, Until Discontinu ed, Routine ipratropium 2021-05 Yes 3mL 3 mL, Unive rs -albuteroL 05-26 Inhalation ity of (DUONEB) 22:00: , Q4H, [place] 0.5 mg-3 00 First dose Medic al mg(2.5 mg on [facility] base)/3 mL 03/26/22 nebulizer at 1600, solution 3 Until mL Discontinu ed, Routine guaiFENesin 2021-05 Yes 200mg 200 mg, Un nel 100 mg/5 mL 05-26 Oral, ity of solution 21:53: Q6HPRN, [place] 200 mg 18 Starting Medical on Fri03/26/22 at 1553, Until Discontinu ed, Routine, Cough glucagon 2021-05 Yes 1mg 1 mg, Univers (GLUCAGEN 05-26 Intramuscu ity of DIAGNOSTIC 21:50: lar, PRN, [place] KIT) 45 Starting Medical injection 1 on Fri mg 03/26/22 at 1550, Until Discontinu ed, JOEY, Blood Glucose < or = 70 mg/dL and patient is unable to swallow or has mental changes. dextrose 50 2021-05 Yes 25mL 25 mL, Univ ers % in water 05-26 Slow IV ity of (D50W) 21:50: Push, PRN, [place] injection 45 Starting Medica l 25 mL on Fri03/26/22 at 1550, Until Discontinu ed, JOEY, Blood Glucose < or = 70 mg/dL and patient is unable to swallow or has mental status changes. ondansetron 2021-05 Yes 4mg 4 mg, Slow Univers (ZOFRAN 05-26 IV Push, ity of (PF)) 21:50: Q6HPRN, [place] injection 4 37 Starting Medi pablito mg on Fri03/26/22 at 1550, Until Discontinu ed, Routine, Nausea and Vomiting (N/V) HYDROcodone 2021-05 Yes 1{tbl} 1 tablet, Univers -acetaminop 05-26 Oral, ity of hen (NORCO) 21:50: Q6HPRN, [place] 10-325 mg 32 Starting Medica l tablet 1 on tablet 03/26/22 at 1550, Until Discontinu ed, Routine, Pain (scale 7-10) HYDROcodone 2021-05- No 1{tbl} 1 tablet, Univers -acetaminop 05-26 Oral, ity of hen (NORCO 21:50: 21:49 Q6HPRN, [place] 5) 5-325 mg 27 :27 Starting Medi pablito tablet 1 on [facility] tablet 03/26/22 at 1550, Until [place] 03/28/22 at 1549, Routine, Pain (scale 4-6) acetaminoph 2021-05 Yes 650mg 650 mg, Un nel en 05-26 Oral, ity of (TYLENOL) 21:50: Q6HPRN, [place] tablet 650 19 Starting Medic al mg on Branch 03/26/22 at 1550, Until Discontinu ed, Routine, Pain (scale 1-3), Temp > 38.5 C FENTanyl PF 2021-05- No 50ug 50 mcg, Un nel (SUBLIMAZE 05-26 Slow IV ity o f (PF)) 20:00: 20:06 Push, [place] injection 00 :00 ONCE, 1 Medical 50 mcg dose, On Branch Fri03/26/22 at 1415, Routine iopamidol 2021-05- No [id number] 74mL 74 mL, U nivers (ISOVUE 05-26 Intravenou ity o f 370-500 mL) 16:45: 16:45 s, ONCE, 1 [place] injection 00 :00 dose, On Medica l 74 mL 03/26/22 at 1045, Routine acetaminoph 2021-05- No 975mg 975 mg, U nivers en 05-26 Oral, ity of (TYLENOL) 14:45: 13:58 ONCE, 1 [place] tablet 975 00 :00 dose, On Medic al mg 03/26/22 at 0845, JOEY FENTanyl PF 2021-05- No 75ug 75 mcg, Un nel (SUBLIMAZE 05-26 Slow IV ity o f (PF)) 14:45: 14:01 Push, [place] injection 00 :00 ONCE, 1 Medical 75 mcg dose, On Branch Fri03/26/22 at 0845, STAT ondansetron 2021-05- 4mg 4 mg, Slow Univers (ZOFRAN 05-26 IV Push, ity of (PF)) 14:45: 14:00 ONCE, 1 [place] injection 4 00 :00 dose, On Medi pablito mg Tue Branch 03/26/22 at 0845, JOEY furosemide 2021-05 Yes 40mg Take 40 mg U nivers 40 mg 1-07 by mouth 2 ity of tablet 16:05: (two) [place] 17 times Medical daily as Branch needed. PRN edema furosemide 2021-05 Yes 40mg Take 40 mg U nivers 40 mg 1-07 by mouth 2 ity of tablet 16:05: (two) [place] 17 times Medical daily as Branch needed. PRN edema furosemide 2021-05 Yes 40mg Take 40 mg U nivers 40 mg 1-07 by mouth 2 ity of tablet 16:05: (two) [place] 17 times Medical daily as Branch needed. PRN edema furosemide 2021-05 Yes 40mg Take 40 mg U nivers 40 mg 1-07 by mouth 2 ity of tablet 16:05: (two) [place] 17 times Medical daily as Branch needed. PRN edema furosemide 2021-05 Yes 40mg Take 40 mg U nivers 40 mg 1-07 by mouth 2 ity of tablet 16:05: (two) [place] 17 times Medical daily as Branch needed. PRN edema furosemide 2021-05 Yes 40mg Take 40 mg U nivers 40 mg 1-07 by mouth 2 ity of tablet 16:05: (two) [place] 17 times Medical daily as Branch needed. PRN edema AMITRIPTYLI 2021-05 Yes [id number] TAKE 1 Univers [place] 100 mg 0-26 TABLET BY ity o f tablet 00:00: MOUTH AT [place] [facility] Branch AMITRIPTYLI 2021-05 Yes [id number] TAKE 1 [facility] [place] 100 mg 0-26 TABLET BY ity o f tablet 00:00: MOUTH AT [address] AMITRIPTYLI 2021-05 Yes [id number] TAKE 1 Univers [place] 100 mg 0-26 TABLET BY ity o f tablet 00:00: MOUTH AT [address] AMITRIPTYLI 2021-05 Yes [id number] TAKE 1 Univers [place] 100 mg 0-26 TABLET BY ity o f tablet 00:00: [facility]OUTH AT [place] [facility] Yes [id number] TAKE 1 [facility] [place] 100 mg 0-26 TABLET BY ity o f tablet 00:00: MOUTH AT [place] [facility]-05 Yes [id number] TAKE 1 [facility] [place] 100 mg 0-26 TABLET BY ity o f tablet 00:00: MOUTH AT [place] [facility] 2021-05 Yes [id number] TAKE 1 [facility] [place] 100 mg 0-26 TABLET BY ity o f tablet 00:00: MOUTH AT [place] [facility] 2021-05 Yes [id number] TAKE 1 [facility] [place] 100 mg 0-26 TABLET BY ity o f tablet 00:00: MOUTH AT [place] [facility] 2021-05 Yes [id number] TAKE 1 Univers NE 100 mg 0-26 TABLET BY ity o f tablet 00:00: MOUTH AT [place] [facility] 2021-05 Yes [id number] TAKE 1 [facility] NE 100 mg 0-26 TABLET BY ity o f tablet 00:00: MOUTH AT [place] [facility]-05 Yes [id number] TAKE 1 [facility] NE 100 mg 0-26 TABLET BY ity o f tablet 00:00: MOUTH AT [place] [facility] 2021-05 Yes [id number] TAKE 1 [facility] NE 100 mg 0-26 TABLET BY ity o f tablet 00:00: MOUTH AT [place] [facility] 2021-05 Yes [id number] TAKE 1 [facility] NE 100 mg 0-26 TABLET BY ity o f tablet 00:00: MOUTH AT [place] [facility] 2021-05 Yes [id number] TAKE 1 [facility] NE 100 mg 0-26 TABLET BY ity o f tablet 00:00: MOUTH AT [place] [facility] 2021-05 Yes [id number] TAKE 1 [facility] NE 100 mg 0-26 TABLET BY ity o f tablet 00:00: [facility] [address] [facility]-05 Yes [id number] TAKE 1 [facility] NE 100 mg 0-26 TABLET BY ity o f tablet 00:00: [facility] [address]-05 Yes [id number] TAKE 1 [facility] NE 100 mg 0-26 TABLET BY ity o f tablet 00:00: MOUTH AT [place] 00 BEDTIME Medical Branch AMITRIPTYLI 2021-05 Yes [id number] TAKE 1 [facility] NE 100 mg 0-26 TABLET BY ity o f tablet 00:00: MOUTH AT [place] 00 BEDTIME Medical Branch AMITRIPTYLI 2021-05 Yes [id number] TAKE 1 [facility] [place] 100 mg 0-26 TABLET BY ity o f tablet 00:00: MOUTH AT [place] BEDTIME Medical Branch AMITRIPTYLI 2021-05- No [id number] TAKE 1 [facility] NE 100 mg 0-26 12-27 TABLET BY ity of tablet 00:00: 00:00 MOUTH AT [place] 00 :00 BEDTIME Medical Branch KCL 10 mEq 2021-05 Yes [id number] 10meq Take 1 Univers tablet 0-10 tablet by ity of 00:00: mouth in [place] the Medical morning. Branch KCL 10 mEq 2021-05 Yes [id number] 10meq Take 1 Univers tablet 0-10 tablet by ity of 00:00: mouth in [place] the Medical morning. Branch KCL 10 mEq 2021-05 Yes [id number] 10meq Take 1 Univers tablet 0-10 tablet by ity of 00:00: mouth in [place] the Medical morning. Branch KCL 10 mEq 2021-05 Yes [id number] 10meq Take 1 Univers tablet 0-10 tablet by ity of 00:00: mouth in [place] the Medical morning. Branch KCL 10 mEq 2021-05 Yes [id number] 10meq Take 1 Univers tablet 0-10 tablet by ity of 00:00: mouth in [place] the Medical morning. Branch KCL 10 mEq 2021-05 Yes [id number] 10meq Take 1 Univers tablet 0-10 tablet by ity of 00:00: mouth in [place] the Medical morning. Branch KCL 10 mEq 2021-05 Yes [id number] 10meq Take 1 Univers tablet 0-10 tablet by ity of 00:00: mouth in [place] the Medical morning. Branch KCL 10 mEq 2021-05 Yes [id number] 10meq Take 1 Univers tablet 0-10 tablet by ity of 00:00: mouth in [place] the Medical morning. Branch KCL 10 mEq 2021-05 Yes [id number] 10meq Take 1 Univers tablet 0-10 tablet by ity of 00:00: mouth in [place] the Medical morning. Branch KCL 10 mEq 2021-05 Yes [id number] 10meq Take 1 Univers tablet 0-10 tablet by ity of 00:00: mouth in [place] the Medical morning. Branch KCL 10 mEq 2021-05 Yes [id number] 10meq Take 1 Univers tablet 0-10 tablet by ity of 00:00: mouth in [place] the Medical morning. Branch KCL 10 mEq 2021-05 Yes [id number] 10meq Take 1 Univers tablet 0-10 tablet by ity of 00:00: mouth in [place] the Medical morning. Branch KCL 10 mEq 2021-05 Yes [id number] 10meq Take 1 Univers tablet 0-10 tablet by ity of 00:00: mouth in [place] the Medical morning. Branch KCL 10 mEq 2021-05 Yes [id number] 10meq Take 1 Univers tablet 0-10 tablet by ity of 00:00: mouth in [place] the Medical morning. Branch KCL 10 mEq 2021-05 Yes [id number] 10meq Take 1 Univers tablet 0-10 tablet by ity of 00:00: mouth in [place] the Medical morning. Branch KCL 10 mEq 2021-05 Yes [id number] 10meq Take 1 Univers tablet 0-10 tablet by ity of 00:00: mouth in [place] the Medical morning. Branch KCL 10 mEq 2021-05 Yes [id number] 10meq Take 1 Univers tablet 0-10 tablet by ity of 00:00: mouth in [place] the Medical morning. Branch KCL 10 mEq 2021-05 Yes [id number] 10meq Take 1 Univers tablet 0-10 tablet by ity of 00:00: mouth in [place] the Medical morning. Branch KCL 10 mEq 2021-05 Yes [id number] 10meq Take 1 Univers tablet 0-10 tablet by ity of 00:00: mouth in [place] the Medical morning. Branch KCL 10 mEq 2021- Yes [id number] 10meq Take 1 Univers tablet 0-10 tablet by ity of 00:00: mouth in [place] the Medical morning. Branch KCL 10 mEq 2021-05 Yes [id number] 10meq Take 1 Univers tablet 0-10 tablet by ity of 00:00: mouth in [place] the Medical morning. Branch KCL 10 mEq 2021- Yes [id number] 10meq Take 1 Univers tablet 0-10 tablet by ity of 00:00: mouth in [place] the Medical morning. Branch KCL 10 mEq 2021- Yes [id number] 10meq Take 1 Univers tablet 0-10 tablet by ity of 00:00: mouth in [place] the Medical morning. Branch KCL 10 mEq 2021- Yes [id number] 10meq Take 1 Univers tablet 0-10 tablet by ity of 00:00: mouth in [place] the Medical morning. Branch KCL 10 mEq 2021- Yes [id number] 10meq Take 1 Univers tablet 0-10 tablet by ity of 00:00: mouth in [place] the Medical morning. Branch KCL 10 mEq 2021- Yes [id number] 10meq Take 1 Univers tablet 0-10 tablet by ity of 00:00: mouth in [place] the Medical morning. Branch KCL 10 mEq 2021- Yes [id number] 10meq Take 1 Univers tablet 0-10 tablet by ity of 00:00: mouth in [place] the Medical morning. Branch KCL 10 mEq 2021- Yes [id number] 10meq Take 1 Univers tablet 0-10 tablet by ity of 00:00: mouth in [place] the Medical morning. Branch KCL 10 mEq 2021- Yes [id number] 10meq Take 1 Univers tablet 0-10 tablet by ity of 00:00: mouth in [place] the Medical morning. Branch KCL 10 mEq 2021- Yes [id number] 10meq Take 1 Univers tablet 0-10 tablet by ity of 00:00: mouth in [place] the Medical morning. Branch KCL 10 mEq 2021- Yes [id number] 10meq Take 1 Univers tablet 0-10 tablet by ity of 00:00: mouth in [place] the Medical morning. Branch KCL 10 mEq 2-1 Yes [id number] 10meq Take 1 Univers tablet 0-10 tablet by ity of 00:00: mouth in [place] the Medical morning. Branch KCL 10 mEq 2021-1 Yes [id number] 10meq Take 1 Univers tablet 0-10 tablet by ity of 00:00: mouth in [place] the Medical morning. Branch KCL 10 mEq 2021- Yes [id number] 10meq Take 1 Univers tablet 0-10 tablet by ity of 00:00: mouth in [place] 00 the Medical morning. Branch KCL 10 mEq 2021-05 Yes [id number] 10meq Take 1 Univers tablet 0-10 tablet by ity of 00:00: mouth in [place] the Medical morning. Branch KCL 10 mEq 2021-05 Yes [id number] 10meq Take 1 Univers tablet 0-10 tablet by ity of 00:00: mouth in [place] 00 the Medical morning. Branch KCL 10 mEq 2021-05 Yes [id number] 10meq Take 1 Univers tablet 0-10 tablet by ity of 00:00: mouth in [place] 00 the Medical morning. Branch KCL 10 mEq 2021-05 Yes [id number] 10meq Take 1 Univers tablet 0-10 tablet by ity of 00:00: mouth in [place] the Medical morning. Branch KCL 10 mEq 2021-05 Yes [id number] 10meq Take 1 Univers tablet 0-10 tablet by ity of 00:00: mouth in [place] the Medical morning. Branch KCL 10 mEq 2021-05 Yes [id number] 10meq Take 1 Univers tablet 0-10 tablet by ity of 00:00: mouth in [place] the Medical morning. Branch KCL 10 mEq 2021-05- No [id number] 10meq Take 1 Univers tablet 0-10 04-18 tablet by ity of 00:00: 00:00 mouth in [place] 00 :00 the Medical morning. Branch KCL 10 mEq 2021-05- No [id number] 10meq Take 1 Univers tablet 0-10 04-18 tablet by ity of 00:00: 00:00 mouth in [place] 00 :00 the Medical morning. Branch KCL 10 mEq 2021-05- No [id number] 10meq Take 1 Univers tablet 0-10 04-18 tablet by ity of 00:00: 00:00 mouth in [place] 00 :00 the Medical morning. Branch carvediloL Yes [id number] 3.125mg Take 1 Univers 3.125 mg 9-26 tablet by ity of tablet 00:00: mouth in [place] 00 the Medical morning Branch and 1 tablet in the evening. Take with meals. carvediloL Yes [id number] 3.125mg Take 1 Univers 3.125 mg 9-26 tablet by ity of tablet 00:00: mouth in [address] morning [place] and 1 tablet in the evening. Take with meals. carvediloL 2022-0 Yes [id number] 3.125mg Take 1 Univers 3.125 mg 9-26 tablet by ity of tablet 00:00: mouth in [place] [address] the [facility] morning [place] and 1 tablet in the evening. Take with meals. carvediloL 2022-0 Yes [id number] 3.125mg Take 1 Univers 3.125 mg 9-26 tablet by ity of tablet 00:00: mouth in [address] morning [place] and 1 tablet in the evening. Take with meals. carvediloL 2022-0 Yes [id number] 3.125mg Take 1 Univers 3.125 mg 9-26 tablet by ity of tablet 00:00: mouth in [address] morning [place] and 1 tablet in the evening. Take with meals. carvediloL 2-0 Yes [id number] 3.125mg Take 1 Univers 3.125 mg 9-26 tablet by ity of tablet 00:00: mouth in [address] morning [place] and 1 tablet in the evening. Take with meals. carvediloL 2-0 Yes [id number] 3.125mg Take 1 [facility] 3.125 mg 9-26 tablet by ity of tablet 00:00: mouth in [address] morning [place] and 1 tablet in the evening. Take with meals. carvediloL 2-0 Yes [id number] 3.125mg Take 1 [facility] 3.125 mg 9-26 tablet by ity of tablet 00:00: mouth in [address] and 1 tablet in the evening. Take with meals. carvediloL 2022-0 Yes [id number] 3.125mg Take 1 [facility] 3.125 mg 9-26 tablet by [facility] tablet 00:00: mouth in [address] morning [place] and 1 tablet in the evening. Take with meals. carvediloL 2022-0 Yes [id number] 3.125mg Take 1 [facility] 3.125 mg 9-26 tablet by [facility] of tablet 00:00: mouth in [address] morning [place] and 1 tablet in the evening. Take with meals. carvediloL 2022-0 Yes [id number] 3.125mg Take 1 [facility] 3.125 mg 9-26 tablet by [facility] of tablet 00:00: mouth in [address] morning [place] and 1 tablet in the evening. Take with meals. carvediloL 2022-0 Yes [id number] 3.125mg Take 1 [facility] 3.125 mg 9-26 tablet by [facility] of tablet 00:00: mouth in [address] morning [place] and 1 tablet in the evening. Take with meals. carvediloL 2022-0 Yes [id number] 3.125mg Take 1 [facility] 3.125 mg 9-26 tablet by [facility] of tablet 00:00: mouth in [address] and 1 tablet in the evening. Take with meals. carvediloL 2022-0 Yes [id number] 3.125mg Take 1 [facility] 3.125 mg 9-26 tablet by [facility] of tablet 00:00: mouth in [address] morning [place] and 1 tablet in the evening. Take with meals. carvediloL 2-0 Yes [id number] 3.125mg Take 1 [facility] 3.125 mg 9-26 tablet by [facility] of tablet 00:00: mouth in [address] and 1 tablet in the evening. Take with meals. carvediloL 2-0 Yes [id number] 3.125mg Take 1 [facility] 3.125 mg 9-26 tablet by [facility] of tablet 00:00: mouth in [address] and 1 tablet in the evening. Take with meals. carvediloL 2022-0 Yes [id number] 3.125mg Take 1 [facility] 3.125 mg 9-26 tablet by [facility] of tablet 00:00: mouth in [address] and 1 tablet in the evening. Take with meals. carvediloL 2022-0 Yes [id number] 3.125mg Take 1 [facility] 3.125 mg 9-26 tablet by [facility] of tablet 00:00: mouth in [address] morning [place] and 1 tablet in the evening. Take with meals. carvediloL 2022-0 Yes [id number] 3.125mg Take 1 [facility] 3.125 mg 9-26 tablet by [facility] of tablet 00:00: mouth in [address] morning [place] and 1 tablet in the evening. Take with meals. carvediloL 2022-0 Yes [id number] 3.125mg Take 1 [facility] 3.125 mg 9-26 tablet by [facility] of tablet 00:00: mouth in [address] morning [place] and 1 tablet in the evening. Take with meals. carvediloL 2022-0 Yes [id number] 3.125mg Take 1 [facility] 3.125 mg 9-26 tablet by [facility] of tablet 00:00: mouth in [address] morning [place] and 1 tablet in the evening. Take with meals. carvediloL 2022-0 Yes [id number] 3.125mg Take 1 [facility] 3.125 mg 9-26 tablet by [facility] tablet 00:00: mouth in [address] morning [place] and 1 tablet in the evening. Take with meals. carvediloL 2022-0 Yes [id number] 3.125mg Take 1 [facility] 3.125 mg 9-26 tablet by [facility] of tablet 00:00: mouth in [address] and 1 tablet in the evening. Take with meals. carvediloL 2022-0 Yes [id number] 3.125mg Take 1 [facility] 3.125 mg 9-26 tablet by [facility] of tablet 00:00: mouth in [address] and 1 tablet in the evening. Take with meals. carvediloL 2-0 Yes [id number] 3.125mg Take 1 [facility] 3.125 mg 9-26 tablet by [facility] tablet 00:00: mouth in [address] and 1 tablet in the evening. Take with meals. carvediloL 2022-0 Yes [id number] 3.125mg Take 1 [facility] 3.125 mg 9-26 tablet by [facility] tablet 00:00: mouth in [address] and 1 tablet in the evening. Take with meals. carvediloL 2022-0 Yes [id number] 3.125mg Take 1 [facility] 3.125 mg 9-26 tablet by [facility] of tablet 00:00: mouth in [address] and 1 tablet in the evening. Take with meals. carvediloL 2022-0 Yes [id number] 3.125mg Take 1 [facility] 3.125 mg 9-26 tablet by [facility] of tablet 00:00: mouth in [address] and 1 tablet in the evening. Take with meals. carvediloL 2022-0 Yes [id number] 3.125mg Take 1 [facility] 3.125 mg 9-26 tablet by [facility] tablet 00:00: mouth in [address] and 1 tablet in the evening. Take with meals. carvediloL 2022-0 Yes [id number] 3.125mg Take 1 [facility] 3.125 mg 9-26 tablet by [facility] of tablet 00:00: mouth in [address] and 1 tablet in the evening. Take with meals. carvediloL 2022-0 Yes [id number] 3.125mg Take 1 [facility] 3.125 mg 9-26 tablet by [facility] tablet 00:00: mouth in [address] and 1 tablet in the evening. Take with meals. carvediloL 2022-0 Yes [id number] 3.125mg Take 1 [facility] 3.125 mg 9-26 tablet by [facility] tablet 00:00: mouth in [address] and 1 tablet in the evening. Take with meals. carvediloL 2-0 Yes [id number] 3.125mg Take 1 [facility] 3.125 mg 9-26 tablet by [facility] tablet 00:00: mouth in [address] and 1 tablet in the evening. Take with meals. carvediloL 2-0 Yes [id number] 3.125mg Take 1 [facility] 3.125 mg 9-26 tablet by [facility] tablet 00:00: mouth in [address] and 1 tablet in the evening. Take with meals. carvediloL 2022-0 Yes [id number] 3.125mg Take 1 [facility] 3.125 mg 9-26 tablet by [facility] tablet 00:00: mouth in [address] and 1 tablet in the evening. Take with meals. carvediloL 2022-0 Yes [id number] 3.125mg Take 1 [facility] 3.125 mg 9-26 tablet by [facility] tablet 00:00: mouth in [address] and 1 tablet in the evening. Take with meals. carvediloL 2022-0 Yes [id number] 3.125mg Take 1 [facility] 3.125 mg 9-26 tablet by [facility] tablet 00:00: mouth in [address] and 1 tablet in the evening. Take with meals. carvediloL 2022-0 Yes [id number] 3.125mg Take 1 [facility] 3.125 mg 9-26 tablet by [facility] of tablet 00:00: mouth in [address] and 1 tablet in the evening. Take with meals. carvediloL 3- No [id number] 3.125mg Take 1 [facility] 3.125 mg 9-26 - tablet by [facility] o f tablet 00:00: 00:00 mouth in [place] 00 :00 the [facility] morning [facility] and 1 tablet in the evening. Take with meals. atorvastati 2021-0 Yes [id number] 10mg Take 1 [facility] n 10 mg 9-08 tablet by [facility] tablet 00:00: mouth at [place] 00 bedtime. [facility] atorvastati 2021-0 Yes [id number] 10mg Take 1 [facility] n 10 mg 9-08 tablet by [facility] tablet 00:00: mouth at [place] 00 bedtime. [facility] atorvastati 2021-0 Yes [id number] 10mg Take 1 [facility] n 10 mg 9-08 tablet by [facility] tablet 00:00: mouth at [place] 00 bedtime. [facility] atorvastati 2021-0 Yes [id number] 10mg Take 1 [facility] n 10 mg 9-08 tablet by [facility] tablet 00:00: mouth at [place] 00 bedtime. [facility] atorvastati 0 Yes [id number] 10mg Take 1 [facility] n 10 mg 9-08 tablet by [facility] of tablet 00:00: mouth at [place] [address] bedtime. [facility] atorvastati 2021-0 Yes [id number] 10mg Take 1 [facility] n 10 mg 9-08 tablet by [facility] tablet 00:00: mouth at [place] [address] bedtime. [facility] atorvastati 2021-0 Yes [id number] 10mg Take 1 [facility] n 10 mg 9-08 tablet by [facility] tablet 00:00: mouth at [place] 00 bedtime. [facility] atorvastati 2021-0 Yes [id number] 10mg Take 1 [facility] n 10 mg 9-08 tablet by [facility] of tablet 00:00: mouth at [place] 00 bedtime. [facility] atorvastati 2021-0 Yes [id number] 10mg Take 1 [facility] n 10 mg 9-08 tablet by [facility] tablet 00:00: mouth at [place] [address] bedtime. [facility] atorvastati 2021-0 Yes [id number] 10mg Take 1 [facility] n 10 mg 9-08 tablet by [facility] tablet 00:00: mouth at [place] 00 bedtime. [facility] atorvastati 2021-0 Yes [id number] 10mg Take 1 [facility] n 10 mg 9-08 tablet by [facility] tablet 00:00: mouth at [place] 00 bedtime. [facility] atorvastati 2021-0 Yes [id number] 10mg Take 1 [facility] n 10 mg 9-08 tablet by [facility] tablet 00:00: mouth at [place] bedtime. [facility] atorvastati 2021-0 Yes [id number] 10mg Take 1 [facility] n 10 mg 9-08 tablet by [facility] of tablet 00:00: mouth at [place] bedtime. [facility] atorvastati 2021-0 Yes [id number] 10mg Take 1 [facility] n 10 mg 9-08 tablet by [facility] tablet 00:00: mouth at [place] bedtime. [facility] atorvastati 2021-0 Yes [id number] 10mg Take 1 [facility] n 10 mg 9-08 tablet by [facility] tablet 00:00: mouth at [place] bedtime. [facility] atorvastati 2021-0 Yes [id number] 10mg Take 1 [facility] n 10 mg 9-08 tablet by [facility] tablet 00:00: mouth at [place] bedtime. [facility] atorvastati 2021-0 Yes [id number] 10mg Take 1 [facility] n 10 mg 9-08 tablet by [facility] tablet 00:00: mouth at [place] bedtime. [facility] atorvastati 2021- Yes [id number] 10mg Take 1 [facility] n 10 mg 9-08 tablet by [facility] tablet 00:00: mouth at [place] bedtime. [facility] atorvastati 2021-0 Yes [id number] 10mg Take 1 [facility] n 10 mg 9-08 tablet by [facility] tablet 00:00: mouth at [place] bedtime. [facility] atorvastati 2021-0 Yes [id number] 10mg Take 1 [facility] n 10 mg 9-08 tablet by [facility] tablet 00:00: mouth at [place] bedtime. [facility] atorvastati 2021-0 Yes [id number] 10mg Take 1 [facility] n 10 mg 9-08 tablet by [facility] tablet 00:00: mouth at [place] 00 bedtime. [facility] atorvastati 2021-0 Yes [id number] 10mg Take 1 [facility] n 10 mg 9-08 tablet by [facility] of tablet 00:00: mouth at [place] 00 bedtime. [facility] atorvastati 2021-0 Yes [id number] 10mg Take 1 [facility] n 10 mg 9-08 tablet by [facility] tablet 00:00: mouth at [place] bedtime. [facility] atorvastati 2021-0 Yes [id number] 10mg Take 1 [facility] n 10 mg 9-08 tablet by [facility] of tablet 00:00: mouth at [place] bedtime. [facility] atorvasta 2021-0 Yes [id number] 10mg Take 1 [facility] n 10 mg 9-08 tablet by [facility] of tablet 00:00: mouth at [place] bedtime. [facility] atorvastati 2021-0 Yes [id number] 10mg Take 1 [facility] n 10 mg 9-08 tablet by [facility] of tablet 00:00: mouth at [place] bedtime. [facility] atorvasta 2021-0 Yes [id number] 10mg Take 1 [facility] n 10 mg 9-08 tablet by [facility] tablet 00:00: mouth at [place] bedtime. [facility] atorvasta 2021-0 Yes [id number] 10mg Take 1 [facility] n 10 mg 9-08 tablet by [facility] of tablet 00:00: mouth at [place] bedtime. [facility] atorvasta 2021-0 Yes [id number] 10mg Take 1 [facility] n 10 mg 9-08 tablet by [facility] of tablet 00:00: mouth at [place] bedtime. [facility] atorvasta 2021-0 Yes [id number] 10mg Take 1 [facility] n 10 mg 9-08 tablet by [facility] of tablet 00:00: mouth at [place] [address] bedtime. [facility] atorvasta 2021-0 Yes [id number] 10mg Take 1 [facility] n 10 mg 9-08 tablet by [facility] of tablet 00:00: mouth at [place] bedtime. [facility] atorvastati 2021-0 Yes [id number] 10mg Take 1 [facility] n 10 mg 9-08 tablet by [facility] of tablet 00:00: mouth at [place] bedtime. [facility] atorvastati 2021-0 Yes [id number] 10mg Take 1 [facility] n 10 mg 9-08 tablet by [facility] of tablet 00:00: mouth at [place] [address] bedtime. [facility] atorvastati 2021-0 Yes [id number] 10mg Take 1 [facility] n 10 mg 9-08 tablet by [facility] of tablet 00:00: mouth at [place] 00 bedtime. [facility] atorvastati 2021-0 Yes [id number] 10mg Take 1 [facility] n 10 mg 9-08 tablet by [facility] of tablet 00:00: mouth at [place] 00 bedtime. [facility] atorvastati 2021-0 Yes [id number] 10mg Take 1 [facility] n 10 mg 9-08 tablet by [facility] of tablet 00:00: mouth at [place] 00 bedtime. [facility] atorvasta 2021-0 Yes [id number] 10mg Take 1 [facility] n 10 mg 9-08 tablet by [facility] of tablet 00:00: mouth at [place] 00 bedtime. [facility] atorvastati 2021-0 Yes [id number] 10mg Take 1 [facility] n 10 mg 9-08 tablet by [facility] of tablet 00:00: mouth at [place] bedtime. [facility] atorvasta 2021-0 Yes [id number] 10mg Take 1 [facility] n 10 mg 9-08 tablet by [facility] of tablet 00:00: mouth at [place] bedtime. [facility] atorvasta 2021-0 Yes [id number] 10mg Take 1 [facility] n 10 mg 9-08 tablet by [facility] of tablet 00:00: mouth at [place] bedtime. [facility] atorvasta 2021-0 Yes [id number] 10mg Take 1 [facility] n 10 mg 9-08 tablet by [facility] of tablet 00:00: mouth at [place] bedtime. [facility] atorvasta 2021-0 Yes [id number] 10mg Take 1 [facility] n 10 mg 9-08 tablet by [facility] of tablet 00:00: mouth at [place] bedtime. [facility] atorvastati 2021-0 Yes [id number] 10mg Take 1 [facility] n 10 mg 9-08 tablet by [facility] of tablet 00:00: mouth at [place] bedtime. [facility] atorvastati 2021-0 Yes [id number] 10mg Take 1 [facility] n 10 mg 9-08 tablet by [facility] of tablet 00:00: mouth at [place] 00 bedtime. [facility] atorvastati 2021-0 Yes [id number] 10mg Take 1 [facility] n 10 mg 9-08 tablet by [facility] of tablet 00:00: mouth at [place] 00 bedtime. [facility] atorvastati 2021-0 Yes [id number] 10mg Take 1 [facility] n 10 mg 9-08 tablet by [facility] of tablet 00:00: mouth at [place] 00 bedtime. [facility] atorvasta 2022- No [id number] 10mg Take 1 [facility] n 10 mg 9-12 06-18 tablet by [facility] of tablet 00:00: 00:00 mouth at [place] 00 :00 bedtime. [facility] atorvastati 2022- No [id number] 10mg Take 1 [facility] n 10 mg 9-12 06-18 tablet by [facility] of tablet 00:00: 00:00 mouth at [place] 00 :00 bedtime. [facility] atorvastati 2022- No [id number] 10mg Take 1 [facility] n 10 mg 9-08 04-18 tablet by [facility] of tablet 00:00: 00:00 mouth at [place] 00 :00 bedtime. [facility] HYDROcodone 0 Yes 1{tbl} Take 1 Un nel -acetaminop 9-07 tablet by [facility] of hen 10-325 13:37: mouth [place] mg tablet 30 every 6 Medical (six) Branch hours as needed for Pain (scale 7-10). HYDROcodone 2021-0 Yes 1{tbl} Take 1 [facility] nel -acetaminop 9-07 tablet by [facility] of hen 10-325 13:37: mouth [place] mg tablet 30 every 6 Medical (six) Branch hours as needed for Pain (scale 7-10). HYDROcodone 2021-0 Yes 1{tbl} Take 1 [facility] nel -acetaminop 9-07 tablet by [facility] of hen 10-325 13:37: mouth [place] mg tablet 30 every 6 Medical (six) Branch hours as needed for Pain (scale 7-10). HYDROcodone 2021-0 Yes 1{tbl} Take 1 [facility] nel -acetaminop 9-07 tablet by [facility] of hen 10-325 13:37: mouth [place] mg tablet 30 every 6 Medical (six) Branch hours as needed for Pain (scale 7-10). HYDROcodone 2021-0 Yes 1{tbl} Take 1 [facility] nel -acetaminop 9-07 tablet by [facility] of hen 10-325 13:37: mouth [place] mg tablet 30 every 6 Medical (six) Branch hours as needed for Pain (scale 7-10). HYDROcodone 2021-0 Yes 1{tbl} Take 1 [facility] nel -acetaminop 9-07 tablet by [facility] of hen 10-325 13:37: mouth [place] mg tablet 30 every 6 Medical (six) Branch hours as needed for Pain (scale 7-10). HYDROcodone 2-0 Yes 1{tbl} Take 1 [facility] nel -acetaminop 9-07 tablet by [facility] of hen 10-325 13:37: mouth [place] mg tablet 30 every 6 Medical (six) Branch hours as needed for Pain (scale 7-10). HYDROcodone 2021-0 Yes 1{tbl} Take 1 [facility] nel -acetaminop 9-07 tablet by [facility] of hen 10-325 13:37: mouth [place] mg tablet 30 every 6 Medical (six) Branch hours as needed for Pain (scale 7-10). HYDROcodone 2021-0 Yes 1{tbl} Take 1 [facility] nel -acetaminop 9-07 tablet by [facility] of hen 10-325 13:37: mouth [place] mg tablet 30 every 6 Medical (six) Branch hours as needed for Pain (scale 7-10). HYDROcodone 2021-0 Yes 1{tbl} Take 1 [facility] nel -acetaminop 9-07 tablet by [facility]y of hen 10-325 13:37: mouth [place] mg tablet 30 every 6 Medical (six) Branch hours as needed for Pain (scale 7-10). HYDROcodone 2021-0 Yes 1{tbl} Take 1 [facility] nel -acetaminop 9-07 tablet by [facility] of hen 10-325 13:37: mouth [place] mg tablet 30 every 6 Medical (six) Branch hours as needed for Pain (scale 7-10). HYDROcodone 2021-0 Yes 1{tbl} Take 1 [facility] nel -acetaminop 9-07 tablet by [facility] of hen 10-325 13:37: mouth [place] mg tablet 30 every 6 Medical (six) Branch hours as needed for Pain (scale 7-10). HYDROcodone 2022-0 Yes 1{tbl} Take 1 [facility] nel -acetaminop 9-07 tablet by [facility] of hen 10-325 13:37: mouth [place] mg tablet 30 every 6 Medical (six) Branch hours as needed for Pain (scale 7-10). HYDROcodone 2-0 Yes 1{tbl} Take 1 [facility] nel -acetaminop 9-07 tablet by [facility]y of hen 10-325 13:37: mouth [place] mg tablet 30 every 6 Medical (six) Branch hours as needed for Pain (scale 7-10). HYDROcodone 2021-0 Yes 1{tbl} Take 1 [facility] nel -acetaminop 9-07 tablet by [facility] of hen 10-325 13:37: mouth [place] mg tablet 30 every 6 Medical (six) Branch hours as needed for Pain (scale 7-10). HYDROcodone 2021-0 Yes 1{tbl} Take 1 [facility] nel -acetaminop 9-07 tablet by [facility] of hen 10-325 13:37: mouth [place] mg tablet 30 every 6 Medical (six) Branch hours as needed for Pain (scale 7-10). HYDROcodone 2021-0 Yes 1{tbl} Take 1 [facility] nel -acetaminop 9-07 tablet by [facility] of hen 10-325 13:37: mouth [place] mg tablet 30 every 6 Medical (six) Branch hours as needed for Pain (scale 7-10). HYDROcodone 2021-0 Yes 1{tbl} Take 1 [facility] nel -acetaminop 9-07 tablet by [facility] of hen 10-325 13:37: mouth [place] mg tablet 30 every 6 Medical (six) Branch hours as needed for Pain (scale 7-10). HYDROcodone 2021-0 Yes 1{tbl} Take 1 [facility] nel -acetaminop 9-07 tablet by [facility] of hen 10-325 13:37: mouth [place] mg tablet 30 every 6 Medical (six) Branch hours as needed for Pain (scale 7-10). HYDROcodone 2021-0 Yes 1{tbl} Take 1 [facility] nel -acetaminop 9-07 tablet by [facility] of hen 10-325 13:37: mouth [place] mg tablet 30 every 6 Medical (six) Branch hours as needed for Pain (scale 7-10). HYDROcodone 2021-0 Yes 1{tbl} Take 1 Un nel -acetaminop 9-07 tablet by [facility] of hen 10-325 13:37: mouth [place] mg tablet 30 every 6 Medical (six) Branch hours as needed for Pain (scale 7-10). HYDROcodone 2021-0 Yes 1{tbl} Take 1 [facility] nel -acetaminop 9-07 tablet by [facility] of hen 10-325 13:37: mouth [place] mg tablet 30 every 6 Medical (six) Branch hours as needed for Pain (scale 7-10). HYDROcodone 2022-0 Yes 1{tbl} Take 1 Un nel -acetaminop 9-07 tablet by [facility] of hen 10-325 13:37: mouth [place] mg tablet 30 every 6 Medical (six) Branch hours as needed for Pain (scale 7-10). HYDROcodone 2022-0 Yes 1{tbl} Take 1 Un nel -acetaminop 9-07 tablet by [facility] of hen 10-325 13:37: mouth [place] mg tablet 30 every 6 Medical (six) Branch hours as needed for Pain (scale 7-10). HYDROcodone 2022-0 Yes 1{tbl} Take 1 [facility] nel -acetaminop 9-07 tablet by [facility] of hen 10-325 13:37: mouth [place] mg tablet 30 every 6 Medical (six) Branch hours as needed for Pain (scale 7-10). HYDROcodone 2021-0 Yes 1{tbl} Take 1 [facility] nel -acetaminop 9-07 tablet by [facility] of hen 10-325 13:37: mouth [place] mg tablet 30 every 6 Medical (six) Branch hours as needed for Pain (scale 7-10). HYDROcodone 2021-0 Yes 1{tbl} Take 1 [facility] nel -acetaminop 9-07 tablet by [facility] of hen 10-325 13:37: mouth [place] mg tablet 30 every 6 Medical (six) Branch hours as needed for Pain (scale 7-10). HYDROcodone 2021-0 Yes 1{tbl} Take 1 [facility] nel -acetaminop 9-07 tablet by [facility] of hen 10-325 13:37: mouth [place] mg tablet 30 every 6 Medical (six) Branch hours as needed for Pain (scale 7-10). HYDROcodone 2022-0 Yes 1{tbl} Take 1 Un nel -acetaminop 9-07 tablet by [facility] of hen 10-325 13:37: mouth [place] mg tablet 30 every 6 Medical (six) Branch hours as needed for Pain (scale 7-10). HYDROcodone 2022-0 Yes 1{tbl} Take 1 Un nel -acetaminop 9-07 tablet by [facility] of hen 10-325 13:37: mouth [place] mg tablet 30 every 6 Medical (six) Branch hours as needed for Pain (scale 7-10). HYDROcodone 2022-0 Yes 1{tbl} Take 1 Un nel -acetaminop 9-07 tablet by [facility] of hen 10-325 13:37: mouth [place] mg tablet 30 every 6 Medical (six) Branch hours as needed for Pain (scale 7-10). HYDROcodone 2022-0 Yes 1{tbl} Take 1 Un nel -acetaminop 9-07 tablet by [facility] of hen 10-325 13:37: mouth [place] mg tablet 30 every 6 Medical (six) Branch hours as needed for Pain (scale 7-10). HYDROcodone 2022-0 Yes 1{tbl} Take 1 Un nel -acetaminop 9-07 tablet by [facility] of hen 10-325 13:37: mouth [place] mg tablet 30 every 6 Medical (six) Branch hours as needed for Pain (scale 7-10). guaiFENesin 2022-0 Yes [id number] 200mg Take 10 mL [facility] 100 mg/5 mL 9-07 by mouth [facility] of solution 00:00: every 4 [place] 00 (four) Medical hours as Branch needed for Cough. guaiFENesin 2022-0 Yes [id number] 200mg Take 10 mL [facility] 100 mg/5 mL 9-07 by mouth [facility] of solution 00:00: every 4 [place] 00 (four) Medical hours as Branch needed for Cough. guaiFENesin 2022-0 Yes [id number] 200mg Take 10 mL [facility] 100 mg/5 mL 9-07 by mouth [facility] of solution 00:00: every 4 [place] 00 (four) Medical hours as Branch needed for Cough. guaiFENesin 2022-0 Yes [id number] 200mg Take 10 mL [facility] 100 mg/5 mL 9-07 by mouth [facility] of solution 00:00: every 4 [place] 00 (four) Medical hours as Branch needed for Cough. guaiFENesin 2022-0 Yes [id number] 200mg Take 10 mL [facility] 100 mg/5 mL 9-07 by mouth [facility] of solution 00:00: every 4 [place] 00 (four) Medical hours as Branch needed for Cough. guaiFENesin 2022-0 Yes [id number] 200mg Take 10 mL [facility] 100 mg/5 mL 9-07 by mouth [facility] of solution 00:00: every 4 [place] 00 (four) Medical hours as Branch needed for Cough. guaiFENesin 2022-0 Yes [id number] 200mg Take 10 mL [facility] 100 mg/5 mL 9-07 by mouth [facility] of solution 00:00: every 4 [place] 00 (four) Medical hours as Branch needed for Cough. guaiFENesin 2022-0 Yes [id number] 200mg Take 10 mL [facility] 100 mg/5 mL 9-07 by mouth [facility] of solution 00:00: every 4 [place] 00 (four) Medical hours as Branch needed for Cough. guaiFENesin 2022-0 Yes [id number] 200mg Take 10 mL [facility] 100 mg/5 mL 9-07 by mouth [facility] of solution 00:00: every 4 [place] 00 (four) Medical hours as Branch needed for Cough. guaiFENesin 2022-0 Yes [id number] 200mg Take 10 mL [facility] 100 mg/5 mL 9-07 by mouth [facility] of solution 00:00: every 4 [place] 00 (four) Medical hours as Branch needed for Cough. guaiFENesin 2022-0 Yes [id number] 200mg Take 10 mL [facility] 100 mg/5 mL 9-07 by mouth [facility] of solution 00:00: every 4 [place] 00 (four) Medical hours as Branch needed for Cough. guaiFENesin 2022-0 Yes [id number] 200mg Take 10 mL [facility] 100 mg/5 mL 9-07 by mouth [facility] of solution 00:00: every 4 [place] 00 (four) Medical hours as Branch needed for Cough. guaiFENesin 2022-0 Yes [id number] 200mg Take 10 mL [facility] 100 mg/5 mL 9-07 by mouth [facility] of solution 00:00: every 4 [place] 00 (four) Medical hours as Branch needed for Cough. guaiFENesin 2022-0 Yes [id number] 200mg Take 10 mL [facility] 100 mg/5 mL 9-07 by mouth [facility] of solution 00:00: every 4 [place] 00 (four) Medical hours as Branch needed for Cough. guaiFENesin 2022-0 Yes [id number] 200mg Take 10 mL [facility] 100 mg/5 mL 9-07 by mouth [facility] of solution 00:00: every 4 [place] 00 (four) Medical hours as Branch needed for Cough. guaiFENesin 2022-0 Yes [id number] 200mg Take 10 mL [facility] 100 mg/5 mL 9-07 by mouth [facility] of solution 00:00: every 4 [place] 00 (four) Medical hours as Branch needed for Cough. guaiFENesin 2022-0 Yes [id number] 200mg Take 10 mL [facility] 100 mg/5 mL 9-07 by mouth [facility] of solution 00:00: every 4 [place] 00 (four) Medical hours as Branch needed for Cough. guaiFENesin 2022-0 Yes [id number] 200mg Take 10 mL [facility] 100 mg/5 mL 9-07 by mouth [facility] of solution 00:00: every 4 [place] 00 (four) Medical hours as Branch needed for Cough. guaiFENesin 2022-0 Yes [id number] 200mg Take 10 mL [facility] 100 mg/5 mL 9-07 by mouth [facility] of solution 00:00: every 4 [place] 00 (four) Medical hours as Branch needed for Cough. guaiFENesin 2022-0 Yes [id number] 200mg Take 10 mL [facility] 100 mg/5 mL 9-07 by mouth [facility] of solution 00:00: every 4 [place] 00 (four) Medical hours as Branch needed for Cough. guaiFENesin 2022-0 Yes [id number] 200mg Take 10 mL [facility] 100 mg/5 mL 9-07 by mouth [facility] of solution 00:00: every 4 [place] 00 (four) Medical hours as Branch needed for Cough. guaiFENesin 2022-0 Yes [id number] 200mg Take 10 mL [facility] 100 mg/5 mL 9-07 by mouth [facility] of solution 00:00: every 4 [place] 00 (four) Medical hours as Branch needed for Cough. guaiFENesin 2022-0 Yes [id number] 200mg Take 10 mL [facility] 100 mg/5 mL 9-07 by mouth [facility] of solution 00:00: every 4 [place] 00 (four) Medical hours as Branch needed for Cough. guaiFENesin 2022-0 Yes [id number] 200mg Take 10 mL [facility] 100 mg/5 mL 9-07 by mouth [facility] of solution 00:00: every 4 [place] 00 (four) Medical hours as Branch needed for Cough. guaiFENesin 2022-0 Yes [id number] 200mg Take 10 mL [facility] 100 mg/5 mL 9-07 by mouth [facility] of solution 00:00: every 4 [place] 00 (four) Medical hours as Branch needed for Cough. guaiFENesin 2022-0 Yes [id number] 200mg Take 10 mL [facility] 100 mg/5 mL 9-07 by mouth [facility] of solution 00:00: every 4 [place] 00 (four) Medical hours as Branch needed for Cough. guaiFENesin 2022-0 Yes [id number] 200mg Take 10 mL [facility] 100 mg/5 mL 9-07 by mouth [facility] of solution 00:00: every 4 [place] 00 (four) Medical hours as Branch needed for Cough. guaiFENesin 2022-0 Yes [id number] 200mg Take 10 mL [facility] 100 mg/5 mL 9-07 by mouth [facility] of solution 00:00: every 4 [place] 00 (four) Medical hours as Branch needed for Cough. guaiFENesin 2022-0 Yes [id number] 200mg Take 10 mL [facility] 100 mg/5 mL 9-07 by mouth [facility] of solution 00:00: every 4 [place] 00 (four) Medical hours as Branch needed for Cough. guaiFENesin 2022-0 Yes [id number] 200mg Take 10 mL [facility] 100 mg/5 mL 9-07 by mouth [facility] of solution 00:00: every 4 [place] 00 (four) Medical hours as Branch needed for Cough. guaiFENesin 2022-0 Yes [id number] 200mg Take 10 mL [facility] 100 mg/5 mL 9-07 by mouth [facility] of solution 00:00: every 4 [place] 00 (four) Medical hours as Branch needed for Cough. guaiFENesin 2022-0 Yes [id number] 200mg Take 10 mL [facility] 100 mg/5 mL 9-07 by mouth [facility] of solution 00:00: every 4 [place] 00 (four) Medical hours as Branch needed for Cough. guaiFENesin 2022-0 Yes [id number] 200mg Take 10 mL [facility] 100 mg/5 mL 9-07 by mouth ity of solution 00:00: every 4 [place] 00 (four) Medical hours as Branch needed for Cough. guaiFENesin 2022-0 2022- No [id number] 200mg Take 10 mL [facility] 100 mg/5 mL 9-07 11-29 by mouth ity of solution 00:00: 00:00 every 4 [place] 00 :00 (four) Medical hours as Branch needed for Cough. AMITRIPTYLI 2022-0 Yes [id number] TAKE 1 [facility] [place] 100 mg 8-29 TABLET BY ity o f tablet 00:00: MOUTH AT [place] 00 BEDTIME Medical Branch AMITRIPTYLI 2022-0 Yes [id number] TAKE 1 [facility] [place] 100 mg 8-29 TABLET BY ity o f tablet 00:00: MOUTH AT [place] [facility] [id number] TAKE 1 [facility] [place] 100 mg 8-29 TABLET BY ity o f tablet 00:00: MOUTH AT [place] [facility] [id number] TAKE 1 [facility] [place] 100 mg 8-29 TABLET BY ity o f tablet 00:00: MOUTH AT [place] [facility] [id number] TAKE 1 [facility] [place] 100 mg 8-29 TABLET BY ity o f tablet 00:00: MOUTH AT [place] [facility] [id number] TAKE 1 [facility] [place] 100 mg 8-29 TABLET BY ity o f tablet 00:00: [facility] [place] [facility] [id number] TAKE 1 [facility] [place] 100 mg 8-29 TABLET BY ity o f tablet 00:00: [facility]OUTH AT [place] [facility] Yes [id number] TAKE 1 [facility] [place] 100 mg 8-29 TABLET BY ity o f tablet 00:00: [facility]OUTH AT [place] [facility] [id number] TAKE 1 [facility] [place] 100 mg 8-29 TABLET BY ity o f tablet 00:00: MOUTH AT [place] [facility] [id number] TAKE 1 [facility] [place] 100 mg 8-29 TABLET BY ity o f tablet 00:00: [facility]OUTH AT [place] [facility] [id number] TAKE 1 [facility] [place] 100 mg 8-29 TABLET BY ity o f tablet 00:00: MOUTH AT [place] [facility] AMITRIPTYL Yes [id number] TAKE 1 [facility] [place] 100 mg 8-29 TABLET BY ity o f tablet 00:00: MOUTH AT [place] [facility] AMIIPTYL Yes [id number] TAKE 1 [facility] [place] 100 mg 8-29 TABLET BY ity o f tablet 00:00: MOUTH AT [place] [facility] AMIIPTYL Yes [id number] TAKE 1 [facility] [place] 100 mg 8-29 TABLET BY ity o f tablet 00:00: MOUTH AT [place] 00 BEDTIME Medical Branch AMITRIPTYLI 2022-0 Yes [id number] TAKE 1 [facility] [place] 100 mg 8-29 TABLET BY ity o f tablet 00:00: MOUTH AT [place] 00 BEDTIME Medical Branch AMITRIPTYLI 2022-0 2022- No [id number] TAKE 1 [facility] [place] 100 mg 8-29 10-26 TABLET BY ity of tablet 00:00: 00:00 MOUTH AT [place] 00 :00 BEDTIME Medical Branch apixaban 2022-0 Yes 5mg Take 1 [facility] (ELIQUIS) 5 7-22 tablet by it[facility] of mg tablet 00:00: mouth [place] 00 the Medical morning Branch and 1 tablet in the evening. Indication s: PE apixaban 2022-0 Yes 5mg Take 1 [facility] (ELIQUIS) 5 7-22 tablet by [facility] of mg tablet 00:00: mouth [place] 00 the Medical morning Branch and 1 tablet in the evening. Indication s: PE apixaban 2022-0 Yes 5mg Take 1 [facility] (ELIQUIS) 5 7-22 tablet by [facility] of mg tablet 00:00: mouth [place] 00 the Medical morning Branch and 1 tablet in the evening. Indication s: PE apixaban 2022-0 Yes 5mg Take 1 [facility] (ELIQUIS) 5 7-22 tablet by [facility] of mg tablet 00:00: mouth [place] 00 the Medical morning Branch and 1 tablet in the evening. Indication s: PE apixaban 2022-0 Yes 5mg Take 1 [facility] (ELIQUIS) 5 7-22 tablet by [facility] of mg tablet 00:00: mouth [place] 00 the Medical morning Branch and 1 tablet in the evening. Indication s: PE apixaban 2022-0 Yes 5mg Take 1 [facility] (ELIQUIS) 5 7-22 tablet by [facility] of mg tablet 00:00: mouth [place] 00 the Medical morning Branch and 1 tablet in the evening. Indication s: PE apixaban 2022-0 Yes 5mg Take 1 [facility] (ELIQUIS) 5 7-22 tablet by [facility] of mg tablet 00:00: mouth [place] 00 the Medical morning Branch and 1 tablet in the evening. Indication s: PE apixaban 2022-0 Yes 5mg Take 1 [facility] (ELIQUIS) 5 7-22 tablet by [facility] of mg tablet 00:00: mouth in [place] 00 the Medical morning Branch and 1 tablet in the evening. Indication s: PE apixaban 2022-0 Yes 5mg Take 1 [facility] (ELIQUIS) 5 7-22 tablet by [facility] of mg tablet 00:00: mouth in [place] 00 the Medical morning Branch and 1 tablet in the evening. Indication s: PE apixaban 2022-0 Yes 5mg Take 1 [facility] (ELIQUIS) 5 7-22 tablet by [facility] of mg tablet 00:00: mouth in [place] 00 the Medical morning Branch and 1 tablet in the evening. Indication s: PE apixaban 2022-0 Yes 5mg Take 1 [facility] (ELIQUIS) 5 7-22 tablet by [facility] of mg tablet 00:00: mouth [place] 00 the Medical morning Branch and 1 tablet in the evening. Indication s: PE apixaban 2022-0 Yes 5mg Take 1 [facility] (ELIQUIS) 5 7-22 tablet by [facility] of mg tablet 00:00: mouth in [place] 00 the Medical morning Branch and 1 tablet in the evening. Indication s: PE apixaban 2022-0 Yes 5mg Take 1 [facility] (ELIQUIS) 5 7-22 tablet by [facility] of mg tablet 00:00: mouth in [place] 00 the Medical morning Branch and 1 tablet in the evening. Indication s: PE apixaban 2022-0 Yes 5mg Take 1 [facility] (ELIQUIS) 5 7-22 tablet by [facility] of mg tablet 00:00: mouth in [place] 00 the Medical morning Branch and 1 tablet in the evening. Indication s: PE apixaban 2022-0 Yes 5mg Take 1 [facility] (ELIQUIS) 5 7-22 tablet by [facility] of mg tablet 00:00: mouth in [place] 00 the Medical morning Branch and 1 tablet in the evening. Indication s: PE apixaban 2022-0 Yes 5mg Take 1 [facility] (ELIQUIS) 5 7-22 tablet by [facility] of mg tablet 00:00: mouth in [place] 00 the Medical morning Branch and 1 tablet in the evening. Indication s: PE apixaban 2022-0 Yes 5mg Take 1 [facility] (ELIQUIS) 5 7-22 tablet by [facility]y of mg tablet 00:00: mouth in [place] 00 the Medical morning Branch and 1 tablet in the evening. Indication s: PE apixaban 2022-0 Yes 5mg Take 1 [facility] (ELIQUIS) 5 7-22 tablet by ity of mg tablet 00:00: mouth in [place] 00 the Medical morning Branch and 1 tablet in the evening. Indication s: PE apixaban 2022-0 Yes 5mg Take 1 [facility] (ELIQUIS) 5 7-22 tablet by [facility] of mg tablet 00:00: mouth in [place] 00 the Medical morning Branch and 1 tablet in the evening. Indication s: PE apixaban 2022-0 Yes 5mg Take 1 [facility] (ELIQUIS) 5 7-22 tablet by [facility]y of mg tablet 00:00: mouth in [place] 00 the Medical morning Branch and 1 tablet in the evening. Indication s: PE apixaban 2022-0 Yes 5mg Take 1 [facility] (ELIQUIS) 5 7-22 tablet by [facility]y of mg tablet 00:00: mouth in [place] 00 the Medical morning Branch and 1 tablet in the evening. Indication s: PE apixaban 2022-0 Yes 5mg Take 1 [facility] (ELIQUIS) 5 7-22 tablet by ity of mg tablet 00:00: mouth in [place] 00 the Medical morning Branch and 1 tablet in the evening. Indication s: PE apixaban 2022-0 Yes 5mg Take 1 [facility] (ELIQUIS) 5 7-22 tablet by ity of mg tablet 00:00: mouth in [place] 00 the Medical morning Branch and 1 tablet in the evening. Indication s: PE apixaban 2022-0 Yes 5mg Take 1 [facility] (ELIQUIS) 5 7-22 tablet by ity of mg tablet 00:00: mouth in [place] 00 the Medical morning Branch and 1 tablet in the evening. Indication s: PE apixaban 2022-0 Yes 5mg Take 1 [facility] (ELIQUIS) 5 7-22 tablet by ity of mg tablet 00:00: mouth in [place] 00 the Medical morning Branch and 1 tablet in the evening. Indication s: PE apixaban 2022-0 Yes 5mg Take 1 [facility] (ELIQUIS) 5 7-22 tablet by ity of mg tablet 00:00: mouth in [place] 00 the Medical morning Branch and 1 tablet in the evening. Indication s: PE apixaban 2022-0 Yes 5mg Take 1 [facility] (ELIQUIS) 5 7-22 tablet by ity of mg tablet 00:00: mouth in [place] 00 the Medical morning Branch and 1 tablet in the evening. Indication s: PE apixaban 2022-0 Yes 5mg Take 1 [facility] (ELIQUIS) 5 7-22 tablet by ity of mg tablet 00:00: mouth in [place] 00 the Medical morning Branch and 1 tablet in the evening. Indication s: PE apixaban 2022-0 Yes 5mg Take 1 [facility] (ELIQUIS) 5 7-22 tablet by ity of mg tablet 00:00: mouth in [place] 00 the Medical morning Branch and 1 tablet in the evening. Indication s: PE apixaban 2022-0 Yes 5mg Take 1 [facility] (ELIQUIS) 5 7-22 tablet by ity of mg tablet 00:00: mouth in [place] 00 the Medical morning Branch and 1 tablet in the evening. Indication s: PE apixaban 2022-0 Yes 5mg Take 1 [facility] (ELIQUIS) 5 7-22 tablet by ity of mg tablet 00:00: mouth in [place] 00 the Medical morning Branch and 1 tablet in the evening. Indication s: PE apixaban 2022-0 Yes 5mg Take 1 [facility] (ELIQUIS) 5 7-22 tablet by ity of mg tablet 00:00: mouth in [place] 00 the Medical morning Branch and 1 tablet in the evening. Indication s: PE apixaban 2022-0 Yes 5mg Take 1 [facility] (ELIQUIS) 5 7-22 tablet by ity of mg tablet 00:00: mouth in [place] 00 the Medical morning Branch and 1 tablet in the evening. Indication s: PE apixaban 2022-0 Yes 5mg Take 1 [facility] (ELIQUIS) 5 7-22 tablet by ity of mg tablet 00:00: mouth in [place] 00 the Medical morning Branch and 1 tablet in the evening. Indication s: PE apixaban 2022-0 Yes 5mg Take 1 [facility] (ELIQUIS) 5 7-22 tablet by ity of mg tablet 00:00: mouth in [place] 00 the Medical morning Branch and 1 tablet in the evening. Indication s: PE apixaban 2022-0 Yes 5mg Take 1 [facility] (ELIQUIS) 5 7-22 tablet by ity of mg tablet 00:00: mouth in [place] 00 the Medical morning Branch and 1 tablet in the evening. Indication s: PE apixaban 2022-0 Yes 5mg Take 1 [facility] (ELIQUIS) 5 7-22 tablet by ity of mg tablet 00:00: mouth in [place] 00 the Medical morning Branch and 1 tablet in the evening. Indication s: PE apixaban 2022-0 Yes 5mg Take 1 [facility] (ELIQUIS) 5 7-22 tablet by ity of mg tablet 00:00: mouth in [place] 00 the Medical morning Branch and 1 tablet in the evening. Indication s: PE apixaban 2022-0 Yes 5mg Take 1 [facility] (ELIQUIS) 5 7-22 tablet by ity of mg tablet 00:00: mouth in [place] 00 the Medical morning Branch and 1 tablet in the evening. Indication s: PE apixaban 2022-0 Yes 5mg Take 1 [facility] (ELIQUIS) 5 7-22 tablet by ity of mg tablet 00:00: mouth in [place] 00 the Medical morning Branch and 1 tablet in the evening. Indication s: PE apixaban 2022-0 Yes 5mg Take 1 [facility] (ELIQUIS) 5 7-22 tablet by ity of mg tablet 00:00: mouth in [place] 00 the Medical morning Branch and 1 tablet in the evening. Indication s: PE apixaban 2022-0 Yes 5mg Take 1 [facility] (ELIQUIS) 5 7-22 tablet by ity of mg tablet 00:00: mouth in [place] 00 the Medical morning Branch and 1 tablet in the evening. Indication s: PE apixaban 2022-0 Yes 5mg Take 1 [facility] (ELIQUIS) 5 7-22 tablet by ity of mg tablet 00:00: mouth in [place] 00 the Medical morning Branch and 1 tablet in the evening. Indication s: PE apixaban 2022-0 Yes 5mg Take 1 [facility] (ELIQUIS) 5 7-22 tablet by ity of mg tablet 00:00: mouth in [place] 00 the Medical morning Branch and 1 tablet in the evening. Indication s: PE apixaban 2022-0 Yes 5mg Take 1 [facility] (ELIQUIS) 5 7-22 tablet by ity of mg tablet 00:00: mouth [place] 00 the Medical morning Branch and 1 tablet in the evening. Indication s: PE apixaban 2022-0 Yes 5mg Take 1 [facility] (ELIQUIS) 5 7-22 tablet by ity of mg tablet 00:00: mouth in [place] 00 the Medical morning Branch and 1 tablet in the evening. Indication s: PE apixaban 2-0 2023- No 5mg Take 1 [facility] s (ELIQUIS) 5 7-18 tablet by it y of mg tablet 00:00: 00:00 mouth in [place] 00 :00 the Medical morning Branch and 1 tablet in the evening. Indication s: PE apixaban 2-0 2023- No 5mg Take 1 [facility] s (ELIQUIS) 5 7-18 tablet by it y of mg tablet 00:00: 00:00 mouth in [place] 00 :00 the Medical morning Branch and 1 tablet in the evening. Indication s: PE apixaban 2-0 3- No 5mg Take 1 Univer s (ELIQUIS) 5 11-23-18 tablet by it y of mg tablet 00:00: 00:00 mouth in [place] 00 :00 the Medical morning Branch and 1 tablet in the evening. Indication s: PE clopidogreL 2022-0 2022- No [id number] 75mg Take 1 [facility] 75 mg 7-11 10-10 tablet by ity of tablet 00:00: 04:59 mouth in [place] 00 :00 the Medical morning Branch for 90 days. clopidogreL 2022-0 2022- No [id number] 75mg Take 1 [facility] 75 mg 7-11 10-10 tablet by ity of tablet 00:00: 04:59 mouth in [place] 00 :00 the Medical morning Branch for 90 days. clopidogreL 2022-0 2022- No [id number] 75mg Take 1 [facility] 75 mg 7-11 10-10 tablet by ity of tablet 00:00: 04:59 mouth in [place] 00 :00 the Medical morning Branch for 90 days. clopidogreL 2022-0 2022- No [id number] 75mg Take 1 [facility] 75 mg 7-11 10-10 tablet by ity of tablet 00:00: 04:59 mouth in [place] 00 :00 the Medical morning Branch for 90 days. clopidogreL 2022-0 2022- No [id number] 75mg Take 1 [facility] 75 mg 7-11 10-10 tablet by ity of tablet 00:00: 04:59 mouth in [place] 00 :00 the [facility] for 90 days. Ranolazine 2021-0 Yes [id number] 500mg Take 0.5 [facility] 1,000 mg 7-10 tablets by ity o f tablet 00:00: mouth in [address] and 0.5 tablets in the evening. Ranolazine 2021-0 Yes [id number] 500mg Take 0.5 [facility] 1,000 mg 7-10 tablets by ity o f tablet 00:00: mouth in [address] and 0.5 tablets in the evening. Ranolazine 2021-0 Yes [id number] 500mg Take 0.5 [facility] 1,000 mg 7-10 tablets by ity o f tablet 00:00: mouth in [address] and 0.5 tablets in the evening. Ranolazine 0 Yes [id number] 500mg Take 0.5 [facility] 1,000 mg 7-10 tablets by ity o f tablet 00:00: mouth in [address] and 0.5 tablets in the evening. Ranolazine 0 Yes [id number] 500mg Take 0.5 [facility] 1,000 mg 7-10 tablets by ity o f tablet 00:00: mouth in [address] and 0.5 tablets in the evening. Ranolazine 0 Yes [id number] 500mg Take 0.5 [facility] 1,000 mg 7-10 tablets by ity o f tablet 00:00: mouth in [address] and 0.5 tablets in the evening. Ranolazine 0 Yes [id number] 500mg Take 0.5 [facility] 1,000 mg 7-10 tablets by ity o f tablet 00:00: mouth in [address] and 0.5 tablets in the evening. Ranolazine 2021-0 Yes [id number] 500mg Take 0.5 [facility] 1,000 mg 7-10 tablets by ity o f tablet 00:00: mouth in [address] and 0.5 tablets in the evening. Ranolazine 2021-0 Yes [id number] 500mg Take 0.5 [facility] 1,000 mg 7-10 tablets by ity o f tablet 00:00: mouth in [place] [address] the Medical morning Branch and 0.5 tablets in the evening. Ranolazine 2021-0 Yes [id number] 500mg Take 0.5 [facility] 1,000 mg 7-10 tablets by ity o f tablet 00:00: mouth in [place] [address] the Medical morning Branch and 0.5 tablets in the evening. Ranolazine 2021-0 Yes [id number] 500mg Take 0.5 [facility] 1,000 mg 7-10 tablets by ity o f tablet 00:00: mouth in [place] [address] the Medical morning Branch and 0.5 tablets in the evening. Ranolazine 2021-0 Yes [id number] 500mg Take 0.5 [facility] 1,000 mg 7-10 tablets by ity o f tablet 00:00: mouth in [place] [address] the [facility] morning [place] and 0.5 tablets in the evening. Ranolazine 0 Yes [id number] 500mg Take 0.5 [facility] 1,000 mg 7-10 tablets by ity o f tablet 00:00: mouth in [place] [address] the [facility] morning [place] and 0.5 tablets in the evening. Ranolazine 0 Yes [id number] 500mg Take 0.5 [facility] 1,000 mg 7-10 tablets by ity o f tablet 00:00: mouth in [address] morning [place] and 0.5 tablets in the evening. Ranolazine 2021-0 Yes [id number] 500mg Take 0.5 [facility] 1,000 mg 7-10 tablets by ity o f tablet 00:00: mouth in [place] [address] the Medical morning [place] and 0.5 tablets in the evening. Ranolazine 2021-0 Yes [id number] 500mg Take 0.5 [facility] 1,000 mg 7-10 tablets by ity o f tablet 00:00: mouth in [place] [address] the Medical morning [place] and 0.5 tablets in the evening. Ranolazine 2021-0 Yes [id number] 500mg Take 0.5 [facility] 1,000 mg 7-10 tablets by ity o f tablet 00:00: mouth in [address] Medical morning [place] and 0.5 tablets in the evening. Ranolazine 2021-0 Yes [id number] 500mg Take 0.5 [facility] 1,000 mg 7-10 tablets by ity o f tablet 00:00: mouth in [place] [address] the Medical morning Branch and 0.5 tablets in the evening. Ranolazine 2021-0 Yes [id number] 500mg Take 0.5 [facility] 1,000 mg 7-10 tablets by ity o f tablet 00:00: mouth in [place] [address] the [facility] morning Branch and 0.5 tablets in the evening. Ranolazine 2021-0 Yes [id number] 500mg Take 0.5 [facility] 1,000 mg 7-10 tablets by ity o f tablet 00:00: mouth in [place] [address] the [facility] morning [place] and 0.5 tablets in the evening. Ranolazine 2021-0 Yes [id number] 500mg Take 0.5 [facility] 1,000 mg 7-10 tablets by ity o f tablet 00:00: mouth in [address] morning [place] and 0.5 tablets in the evening. Ranolazine 2021-0 Yes [id number] 500mg Take 0.5 [facility] 1,000 mg 7-10 tablets by ity o f tablet 00:00: mouth in [address] morning [place] and 0.5 tablets in the evening. Ranolazine 0 Yes [id number] 500mg Take 0.5 [facility] 1,000 mg 7-10 tablets by ity o f tablet 00:00: mouth in [address] morning [place] and 0.5 tablets in the evening. Ranolazine 2021-0 Yes [id number] 500mg Take 0.5 [facility] 1,000 mg 7-10 tablets by ity o f tablet 00:00: mouth in [address] morning [place] and 0.5 tablets in the evening. Ranolazine 2021-0 Yes [id number] 500mg Take 0.5 [facility] 1,000 mg 7-10 tablets by ity o f tablet 00:00: mouth in [address] morning [place] and 0.5 tablets in the evening. Ranolazine 2021-0 Yes [id number] 500mg Take 0.5 [facility] 1,000 mg 7-10 tablets by ity o f tablet 00:00: mouth in [address] morning [place] and 0.5 tablets in the evening. Ranolazine 2021-0 Yes [id number] 500mg Take 0.5 [facility] 1,000 mg 7-10 tablets by ity o f tablet 00:00: mouth in [place] [address] the Medical morning Branch and 0.5 tablets in the evening. Ranolazine 2021-0 Yes [id number] 500mg Take 0.5 [facility] 1,000 mg 7-10 tablets by ity o f tablet 00:00: mouth in [place] [address] the Medical morning Branch and 0.5 tablets in the evening. Ranolazine 2021-0 Yes [id number] 500mg Take 0.5 [facility] 1,000 mg 7-10 tablets by ity o f tablet 00:00: mouth in [place] [address] the Medical morning Branch and 0.5 tablets in the evening. Ranolazine 2021-0 Yes [id number] 500mg Take 0.5 [facility] 1,000 mg 7-10 tablets by ity o f tablet 00:00: mouth in [address] morning [place] and 0.5 tablets in the evening. Ranolazine 2021-0 Yes [id number] 500mg Take 0.5 [facility] 1,000 mg 7-10 tablets by ity o f tablet 00:00: mouth in [address] morning [place] and 0.5 tablets in the evening. Ranolazine 0 Yes [id number] 500mg Take 0.5 [facility] 1,000 mg 7-10 tablets by ity o f tablet 00:00: mouth in [address] morning [place] and 0.5 tablets in the evening. Ranolazine 2021-0 Yes [id number] 500mg Take 0.5 [facility] 1,000 mg 7-10 tablets by ity o f tablet 00:00: mouth in [address] morning [place] and 0.5 tablets in the evening. Ranolazine 2021-0 Yes [id number] 500mg Take 0.5 [facility] 1,000 mg 7-10 tablets by ity o f tablet 00:00: mouth in [address] morning [place] and 0.5 tablets in the evening. Ranolazine 2021-0 Yes [id number] 500mg Take 0.5 [facility] 1,000 mg 7-10 tablets by ity o f tablet 00:00: mouth in [address] morning [place] and 0.5 tablets in the evening. Ranolazine 2021-0 Yes [id number] 500mg Take 0.5 [facility] 1,000 mg 7-10 tablets by ity o f tablet 00:00: mouth in [address] Medical morning [place] and 0.5 tablets in the evening. Ranolazine 2021-0 Yes [id number] 500mg Take 0.5 [facility] 1,000 mg 7-10 tablets by ity o f tablet 00:00: mouth in [place] [address] the [facility] morning [place] and 0.5 tablets in the evening. Ranolazine 2021-0 Yes [id number] 500mg Take 0.5 [facility] 1,000 mg 7-10 tablets by ity o f tablet 00:00: mouth in [address] morning [place] and 0.5 tablets in the evening. Ranolazine 2021-0 Yes [id number] 500mg Take 0.5 [facility] 1,000 mg 7-10 tablets by ity o f tablet 00:00: mouth in [address] morning [place] and 0.5 tablets in the evening. Ranolazine 2021-0 Yes [id number] 500mg Take 0.5 [facility] 1,000 mg 7-10 tablets by ity o f tablet 00:00: mouth in [address] morning [place] and 0.5 tablets in the evening. Ranolazine 2021-0 Yes [id number] 500mg Take 0.5 [facility] 1,000 mg 7-10 tablets by ity o f tablet 00:00: mouth in [address] morning [place] and 0.5 tablets in the evening. Ranolazine 2021-0 Yes [id number] 500mg Take 0.5 [facility] 1,000 mg 7-10 tablets by ity o f tablet 00:00: mouth in [address] morning [place] and 0.5 tablets in the evening. Ranolazine 2021-0 Yes [id number] 500mg Take 0.5 [facility] 1,000 mg 7-10 tablets by ity o f tablet 00:00: mouth in [address] morning [place] and 0.5 tablets in the evening. Ranolazine 2021-0 Yes [id number] 500mg Take 0.5 [facility] 1,000 mg 7-10 tablets by ity o f tablet 00:00: mouth in [address] morning [place] and 0.5 tablets in the evening. Ranolazine 2021-0 Yes [id number] 500mg Take 0.5 [facility] 1,000 mg 7-10 tablets by ity o f tablet 00:00: mouth in [place] 00 the Medical morning Branch and 0.5 tablets in the evening. Ranolazine 2-0 Yes [id number] 500mg Take 0.5 [facility] 1,000 mg 7-10 tablets by ity o f tablet 00:00: mouth in [place] 00 the Medical morning Branch and 0.5 tablets in the evening. Ranolazine 2-0 Yes [id number] 500mg Take 0.5 [facility] 1,000 mg 7-10 tablets by ity o f tablet 00:00: mouth in [place] 00 the Medical morning Branch and 0.5 tablets in the evening. Ranolazine 2021-0 3- No [id number] 500mg Take 0.5 [facility] 1,000 mg 7-10 04-18 tablets by ity of tablet 00:00: 00:00 mouth in [place] 00 :00 the Medical morning Branch and 0.5 tablets in the evening. Ranolazine 2021-0 3- No [id number] 500mg Take 0.5 [facility] 1,000 mg 7-10 04-18 tablets by ity of tablet 00:00: 00:00 mouth in [place] 00 :00 the Medical morning Branch and 0.5 tablets in the evening. Ranolazine 2021-0 3- No [id number] 500mg Take 0.5 [facility] 1,000 mg 7-10 04-18 tablets by ity of tablet 00:00: 00:00 mouth in [place] 00 :00 the Medical morning Branch and 0.5 tablets in the evening. budesonide 2-0 Yes [id number] .5mg Inhale 2 [facility] 0.5 mg/2 mL 6-29 mL 2 (two) it y of nebulizer 00:00: times [place] solution 00 daily. Medical Branch budesonide 2-0 Yes [id number] .5mg Inhale 2 [facility] 0.5 mg/2 mL 6-29 mL 2 (two) it y of nebulizer 00:00: times [place] solution 00 daily. Medical Branch budesonide 2022-0 Yes [id number] .5mg Inhale 2 [facility] 0.5 mg/2 mL 6-29 mL 2 (two) it y of nebulizer 00:00: times [place] solution 00 daily. Medical Branch budesonide 2-0 Yes [id number] .5mg Inhale 2 [facility] 0.5 mg/2 mL 6-29 mL 2 (two) it y of nebulizer 00:00: times [place] solution 00 daily. Medical Branch budesonide 2-0 Yes [id number] .5mg Inhale 2 [facility] 0.5 mg/2 mL 6-29 mL 2 (two) it y of nebulizer 00:00: times [place] solution 00 daily. Medical Branch budesonide 2-0 Yes [id number] .5mg Inhale 2 [facility] 0.5 mg/2 mL 6-29 mL 2 (two) it y of nebulizer 00:00: times [place] solution 00 daily. Medical Branch budesonide 2-0 Yes [id number] .5mg Inhale 2 [facility] 0.5 mg/2 mL 6-29 mL 2 (two) it y of nebulizer 00:00: times [place] solution 00 daily. Medical Branch budesonide 2-0 Yes [id number] .5mg Inhale 2 [facility] 0.5 mg/2 mL 6-29 mL 2 (two) it y of nebulizer 00:00: times [place] solution 00 daily. Medical Branch budesonide 2-0 Yes [id number] .5mg Inhale 2 [facility] 0.5 mg/2 mL 6-29 mL 2 (two) it y of nebulizer 00:00: times [place] solution 00 daily. Medical Branch budesonide 2-0 Yes [id number] .5mg Inhale 2 [facility] 0.5 mg/2 mL 6-29 mL 2 (two) it y of nebulizer 00:00: times [place] solution 00 daily. Medical Branch budesonide 2-0 Yes [id number] .5mg Inhale 2 [facility] 0.5 mg/2 mL 6-29 mL 2 (two) it y of nebulizer 00:00: times [place] solution 00 daily. Medical Branch budesonide 2-0 Yes [id number] .5mg Inhale 2 [facility] 0.5 mg/2 mL 6-29 mL 2 (two) it y of nebulizer 00:00: times [place] solution 00 daily. Medical Branch budesonide 2-0 Yes [id number] .5mg Inhale 2 [facility] 0.5 mg/2 mL 6-29 mL 2 (two) it y of nebulizer 00:00: times [place] solution 00 daily. Medical Branch budesonide 2-0 Yes [id number] .5mg Inhale 2 [facility] 0.5 mg/2 mL 6-29 mL 2 (two) it y of nebulizer 00:00: times [place] solution 00 daily. Medical Branch budesonide 2-0 Yes [id number] .5mg Inhale 2 [facility] 0.5 mg/2 mL 6-29 mL 2 (two) it y of nebulizer 00:00: times [place] solution 00 daily. Medical Branch budesonide 2-0 Yes [id number] .5mg Inhale 2 [facility] 0.5 mg/2 mL 6-29 mL 2 (two) it y of nebulizer 00:00: times [place] solution 00 daily. Medical Branch budesonide 2-0 Yes [id number] .5mg Inhale 2 [facility] 0.5 mg/2 mL 6-29 mL 2 (two) it y of nebulizer 00:00: times [place] solution 00 daily. [facility] budesonide 2-0 Yes [id number] .5mg Inhale 2 [facility] 0.[facility] mg/2 mL 6-29 mL 2 (two) it y of nebulizer 00:00: times [place] solution 00 daily. [facility] budesonide 2-0 Yes [id number] .5mg Inhale 2 [facility] 0.5 mg/2 mL 6-29 mL 2 (two) it y of nebulizer 00:00: times [place] solution 00 daily. [facility] budesonide 2-0 Yes [id number] .5mg Inhale 2 [facility] 0.5 mg/2 mL 6-29 mL 2 (two) it y of nebulizer 00:00: times [place] solution 00 daily. [facility] budesonide 2-0 Yes [id number] .5mg Inhale 2 [facility] 0.5 mg/2 mL 6-29 mL 2 (two) it y of nebulizer 00:00: times [place] solution 00 daily. [facility] budesonide 2-0 Yes [id number] .5mg Inhale 2 [facility] 0.5 mg/2 mL 6-29 mL 2 (two) it y of nebulizer 00:00: times [place] solution 00 daily. [facility] budesonide 2-0 Yes [id number] .5mg Inhale 2 [facility] 0.5 mg/2 mL 6-29 mL 2 (two) it y of nebulizer 00:00: times [place] solution 00 daily. [facility] budesonide 2-0 Yes [id number] .5mg Inhale 2 [facility] 0.5 mg/2 mL 6-29 mL 2 (two) it y of nebulizer 00:00: times [place] solution 00 daily. [facility] budesonide 2-0 Yes [id number] .5mg Inhale 2 [facility] 0.5 mg/2 mL 6-29 mL 2 (two) it y of nebulizer 00:00: times [place] solution 00 daily. [facility] budesonide 2-0 Yes [id number] .5mg Inhale 2 [facility] 0.5 mg/2 mL 6-29 mL 2 (two) it y of nebulizer 00:00: times [place] solution 00 daily. [facility] budesonide 2-0 Yes [id number] .5mg Inhale 2 [facility] 0.5 mg/2 mL 6-29 mL 2 (two) it y of nebulizer 00:00: times [place] solution 00 daily. [facility] budesonide 2-0 Yes [id number] .5mg Inhale 2 [facility] 0.5 mg/2 mL 6-29 mL 2 (two) it y of nebulizer 00:00: times [place] solution 00 daily. [facility] budesonide 2-0 Yes [id number] .5mg Inhale 2 [facility] 0.5 mg/2 mL 6-29 mL 2 (two) it y of nebulizer 00:00: times [place] solution 00 daily. [facility] budesonide 2-0 Yes [id number] .5mg Inhale 2 [facility] 0.5 mg/2 mL 6-29 mL 2 (two) it y of nebulizer 00:00: times [place] solution 00 daily. [facility] budesonide 2-0 Yes [id number] .5mg Inhale 2 [facility] 0.5 mg/2 mL 6-29 mL 2 (two) it y of nebulizer 00:00: times [place] solution 00 daily. [facility] budesonide 2022-0 Yes [id number] .5mg Inhale 2 [facility] 0.5 mg/2 mL 6-29 mL 2 (two) it y of nebulizer 00:00: times [place] solution 00 daily. [facility] budesonide 2022-0 Yes [id number] .5mg Inhale 2 [facility] 0.5 mg/2 mL 6-29 mL 2 (two) it y of nebulizer 00:00: times [place] solution 00 daily. [facility] budesonide 2022-0 Yes [id number] .5mg Inhale 2 [facility] 0.5 mg/2 mL 6-29 mL 2 (two) it y of nebulizer 00:00: times [place] solution 00 daily. [facility] budesonide 2022-0 Yes [id number] .5mg Inhale 2 [facility] 0.5 mg/2 mL 6-29 mL 2 (two) it y of nebulizer 00:00: times [place] solution 00 daily. [facility] budesonide 2-0 Yes [id number] .5mg Inhale 2 [facility] 0.5 mg/2 mL 6-29 mL 2 (two) it y of nebulizer 00:00: times [place] solution 00 daily. [facility] budesonide 2-0 Yes [id number] .5mg Inhale 2 [facility] 0.5 mg/2 mL 6-29 mL 2 (two) it y of nebulizer 00:00: times [place] solution 00 daily. [facility] budesonide 2-0 Yes [id number] .5mg Inhale 2 [facility] 0.5 mg/2 mL 6-29 mL 2 (two) it y of nebulizer 00:00: times [place] solution 00 daily. [facility] budesonide 2-0 Yes [id number] .5mg Inhale 2 [facility] 0.5 mg/2 mL 6-29 mL 2 (two) it y of nebulizer 00:00: times [place] solution 00 daily. [facility] budesonide 2-0 Yes [id number] .5mg Inhale 2 [facility] 0.5 mg/2 mL 6-29 mL 2 (two) it y of nebulizer 00:00: times [place] solution 00 daily. [facility] budesonide 2-0 Yes [id number] .5mg Inhale 2 [facility] 0.5 mg/2 mL 6-29 mL 2 (two) it y of nebulizer 00:00: times [place] solution 00 daily. [facility] budesonide 2022-0 Yes [id number] .5mg Inhale 2 [facility] 0.5 mg/2 mL 6-29 mL 2 (two) it y of nebulizer 00:00: times [place] solution 00 daily. [facility] budesonide 2022-0 Yes [id number] .5mg Inhale 2 [facility] 0.5 mg/2 mL 6-29 mL 2 (two) it y of nebulizer 00:00: times [place] solution 00 daily. [facility] budesonide 2022-0 Yes [id number] .5mg Inhale 2 [facility] 0.5 mg/2 mL 6-29 mL 2 (two) it y of nebulizer 00:00: times [place] solution 00 daily. [facility] budesonide 2022-0 Yes [id number] .5mg Inhale 2 [facility] 0.5 mg/2 mL 6-29 mL 2 (two) it y of nebulizer 00:00: times [place] solution 00 daily. [facility] budesonide 2-0 Yes [id number] .5mg Inhale 2 [facility] 0.5 mg/2 mL 6-29 mL 2 (two) it y of nebulizer 00:00: times [place] solution 00 daily. [facility] budesonide 2-0 Yes [id number] .5mg Inhale 2 [facility] 0.5 mg/2 mL 6-29 mL 2 (two) it y of nebulizer 00:00: times [place] solution 00 daily. [facility] budesonide 2-0 Yes [id number] .5mg Inhale 2 [facility] 0.5 mg/2 mL 6-29 mL 2 (two) it y of nebulizer 00:00: times [place] solution 00 daily. [facility] budesonide 2-0 Yes [id number] .5mg Inhale 2 [facility] 0.5 mg/2 mL 6-29 mL 2 (two) it y of nebulizer 00:00: times [place] solution 00 daily. [facility] budesonide 2022-0 Yes [id number] .5mg Inhale 2 [facility] 0.5 mg/2 mL 6-29 mL 2 (two) it y of nebulizer 00:00: times [place] solution 00 daily. [facility] budesonide 2022-0 Yes [id number] .5mg Inhale 2 [facility] 0.5 mg/2 mL 6-29 mL 2 (two) it y of nebulizer 00:00: times [place] solution 00 daily. [facility] budesonide 2022-0 Yes [id number] .5mg Inhale 2 [facility] 0.5 mg/2 mL 6-29 mL 2 (two) it y of nebulizer 00:00: times [place] solution 00 daily. [facility] budesonide 2022-0 Yes [id number] .5mg Inhale 2 [facility] 0.5 mg/2 mL 6-29 mL 2 (two) it y of nebulizer 00:00: times [place] solution 00 daily. [facility] budesonide 2-0 Yes [id number] .5mg Inhale 2 [facility] 0.5 mg/2 mL 6-29 mL 2 (two) it y of nebulizer 00:00: times [place] solution 00 daily. [facility] budesonide 2-0 Yes [id number] .5mg Inhale 2 [facility] 0.5 mg/2 mL 6-29 mL 2 (two) it y of nebulizer 00:00: times [place] solution 00 daily. [facility] budesonide 2-0 Yes [id number] .5mg Inhale 2 [facility] 0.5 mg/2 mL 6-29 mL 2 (two) it y of nebulizer 00:00: times [place] solution 00 daily. [facility] budesonide 2-0 Yes [id number] .5mg Inhale 2 [facility] 0.5 mg/2 mL 6-29 mL 2 (two) it y of nebulizer 00:00: times [place] solution 00 daily. [facility] budesonide 2-0 Yes [id number] .5mg Inhale 2 [facility] 0.5 mg/2 mL 6-29 mL 2 (two) it y of nebulizer 00:00: times [place] solution 00 daily. [facility] budesonide 2-0 Yes [id number] .5mg Inhale 2 [facility] 0.5 mg/2 mL 6-29 mL 2 (two) it y of nebulizer 00:00: times [place] solution 00 daily. [facility] budesonide 2-0 Yes [id number] .5mg Inhale 2 [facility] 0.5 mg/2 mL 6-29 mL 2 (two) it y of nebulizer 00:00: times [place] solution 00 daily. [facility] budesonide 2-0 Yes [id number] .5mg Inhale 2 [facility] 0.5 mg/2 mL 6-29 mL 2 (two) it y of nebulizer 00:00: times [place] solution 00 daily. [facility] budesonide 2-0 Yes [id number] .5mg Inhale 2 [facility] 0.5 mg/2 mL 6-29 mL 2 (two) it y of nebulizer 00:00: times [place] solution 00 daily. [facility] budesonide 2-0 Yes [id number] .5mg Inhale 2 [facility] 0.5 mg/2 mL 6-29 mL 2 (two) it y of nebulizer 00:00: times [place] solution 00 daily. [facility] budesonide 2-0 Yes [id number] .5mg Inhale 2 [facility] 0.5 mg/2 mL 6-29 mL 2 (two) it y of nebulizer 00:00: times [place] solution 00 daily. [facility] budesonide 2-0 Yes [id number] .5mg Inhale 2 [facility] 0.5 mg/2 mL 6-29 mL 2 (two) it y of nebulizer 00:00: times [place] solution 00 daily. [facility] budesonide 2-0 Yes [id number] .5mg Inhale 2 [facility] 0.5 mg/2 mL 6-29 mL 2 (two) it y of nebulizer 00:00: times [place] solution 00 daily. [facility] budesonide 2-0 Yes [id number] .5mg Inhale 2 [facility] 0.5 mg/2 mL 6-29 mL 2 (two) it y of nebulizer 00:00: times [place] solution 00 daily. [facility] budesonide 2-0 Yes [id number] .5mg Inhale 2 [facility] 0.5 mg/2 mL 6-29 mL 2 (two) it y of nebulizer 00:00: times [place] solution 00 daily. [facility] budesonide 2-0 Yes [id number] .5mg Inhale 2 [facility] 0.5 mg/2 mL 6-29 mL 2 (two) it y of nebulizer 00:00: times [place] solution 00 daily. [facility] budesonide 2-0 Yes [id number] .5mg Inhale 2 [facility] 0.5 mg/2 mL 6-29 mL 2 (two) it y of nebulizer 00:00: times [place] solution 00 daily. [facility] budesonide 2-0 Yes [id number] .5mg Inhale 2 [facility] 0.5 mg/2 mL 6-29 mL 2 (two) it y of nebulizer 00:00: times [place] solution 00 daily. [facility] budesonide 2-0 Yes [id number] .5mg Inhale 2 [facility] 0.5 mg/2 mL 6-29 mL 2 (two) it y of nebulizer 00:00: times [place] solution 00 daily. [facility] budesonide 2-0 Yes [id number] .5mg Inhale 2 [facility] 0.5 mg/2 mL 6-29 mL 2 (two) it y of nebulizer 00:00: times [place] solution 00 daily. [facility] budesonide 2-0 Yes [id number] .5mg Inhale 2 [facility] 0.5 mg/2 mL 6-29 mL 2 (two) it y of nebulizer 00:00: times [place] solution 00 daily. [facility] budesonide 2-0 Yes [id number] .5mg Inhale 2 [facility] 0.5 mg/2 mL 6-29 mL 2 (two) it y of nebulizer 00:00: times [place] solution 00 daily. [facility] budesonide 2-0 Yes [id number] .5mg Inhale 2 [facility] 0.5 mg/2 mL 6-29 mL 2 (two) it y of nebulizer 00:00: times [place] solution 00 daily. [facility] budesonide 2-0 Yes [id number] .5mg Inhale 2 [facility] 0.5 mg/2 mL 6-29 mL 2 (two) it y of nebulizer 00:00: times [place] solution 00 daily. [facility] budesonide 2-0 Yes [id number] .5mg Inhale 2 [facility] 0.5 mg/2 mL 6-29 mL 2 (two) it y of nebulizer 00:00: times [place] solution 00 daily. [facility] budesonide 2-0 Yes [id number] .5mg Inhale 2 [facility] 0.5 mg/2 mL 6-29 mL 2 (two) it y of nebulizer 00:00: times [place] solution 00 daily. [facility] budesonide 2-0 Yes [id number] .5mg Inhale 2 [facility] 0.5 mg/2 mL 6-29 mL 2 (two) it y of nebulizer 00:00: times [place] solution 00 daily. [facility] budesonide 2-0 Yes [id number] .5mg Inhale 2 [facility] 0.5 mg/2 mL 6-29 mL 2 (two) it y of nebulizer 00:00: times [place] solution 00 daily. [facility] budesonide 2-0 Yes [id number] .5mg Inhale 2 [facility] 0.5 mg/2 mL 6-29 mL 2 (two) it y of nebulizer 00:00: times [place] solution 00 daily. [facility] budesonide 2022-0 Yes [id number] .5mg Inhale 2 [facility] 0.5 mg/2 mL 6-29 mL 2 (two) it y of nebulizer 00:00: times [place] solution 00 daily. [facility] budesonide 2022-0 Yes [id number] .5mg Inhale 2 [facility] 0.5 mg/2 mL 6-29 mL 2 (two) it y of nebulizer 00:00: times [place] solution 00 daily. [facility] budesonide 2-0 Yes [id number] .5mg Inhale 2 [facility] 0.5 mg/2 mL 6-29 mL 2 (two) it y of nebulizer 00:00: times [place] solution 00 daily. [facility] budesonide 2-0 Yes [id number] .5mg Inhale 2 [facility] 0.5 mg/2 mL 6-29 mL 2 (two) it y of nebulizer 00:00: times [place] solution 00 daily. [facility] budesonide 2-0 Yes [id number] .5mg Inhale 2 [facility] 0.5 mg/2 mL 6-29 mL 2 (two) it y of nebulizer 00:00: times [place] solution 00 daily. [facility] budesonide 2-0 Yes [id number] .5mg Inhale 2 [facility] 0.5 mg/2 mL 6-29 mL 2 (two) it y of nebulizer 00:00: times [place] solution 00 daily. [facility] budesonide 2-0 Yes [id number] .5mg Inhale 2 [facility] 0.5 mg/2 mL 6-29 mL 2 (two) it y of nebulizer 00:00: times [place] solution 00 daily. [facility] budesonide 2-0 Yes [id number] .5mg Inhale 2 [facility] 0.5 mg/2 mL 6-29 mL 2 (two) it y of nebulizer 00:00: times [place] solution 00 daily. [facility] budesonide 2022-0 Yes [id number] .5mg Inhale 2 [facility] 0.5 mg/2 mL 6-29 mL 2 (two) it y of nebulizer 00:00: times [place] solution 00 daily. [facility] budesonide 2-0 Yes [id number] .5mg Inhale 2 [facility] 0.5 mg/2 mL 6-29 mL 2 (two) it y of nebulizer 00:00: times [place] solution 00 daily. [facility] budesonide 2022-0 Yes [id number] .5mg Inhale 2 [facility] 0.5 mg/2 mL 6-29 mL 2 (two) it y of nebulizer 00:00: times [place] solution 00 daily. [facility] budesonide 2022-0 Yes [id number] .5mg Inhale 2 [facility] 0.5 mg/2 mL 6-29 mL 2 (two) it y of nebulizer 00:00: times [place] solution 00 daily. [facility] budesonide 2-0 Yes [id number] .5mg Inhale 2 [facility] 0.5 mg/2 mL 6-29 mL 2 (two) it y of nebulizer 00:00: times [place] solution 00 daily. [facility] budesonide 2-0 Yes [id number] .5mg Inhale 2 [facility] 0.5 mg/2 mL 6-29 mL 2 (two) it y of nebulizer 00:00: times [place] solution 00 daily. [facility] budesonide 2-0 Yes [id number] .5mg Inhale 2 [facility] 0.5 mg/2 mL 6-29 mL 2 (two) it y of nebulizer 00:00: times [place] solution 00 daily. [facility] budesonide 2-0 Yes [id number] .5mg Inhale 2 [facility] 0.5 mg/2 mL 6-29 mL 2 (two) it y of nebulizer 00:00: times [place] solution 00 daily. [facility] budesonide 2-0 Yes [id number] .5mg Inhale 2 [facility] 0.5 mg/2 mL 6-29 mL 2 (two) it y of nebulizer 00:00: times [place] solution 00 daily. [facility] budesonide 2-0 Yes [id number] .5mg Inhale 2 [facility] 0.5 mg/2 mL 6-29 mL 2 (two) it y of nebulizer 00:00: times [place] solution 00 daily. [facility] budesonide 2022-0 Yes [id number] .5mg Inhale 2 [facility] 0.5 mg/2 mL 6-29 mL 2 (two) it y of nebulizer 00:00: times [place] solution 00 daily. [facility] budesonide 2022-0 Yes [id number] .5mg Inhale 2 [facility] 0.5 mg/2 mL 6-29 mL 2 (two) it y of nebulizer 00:00: times [place] solution 00 daily. [facility] budesonide 2-0 Yes [id number] .5mg Inhale 2 [facility] 0.5 mg/2 mL 6-29 mL 2 (two) it y of nebulizer 00:00: times [place] solution 00 daily. [facility] budesonide 2-0 Yes [id number] .5mg Inhale 2 [facility] 0.5 mg/2 mL 6-29 mL 2 (two) it y of nebulizer 00:00: times [place] solution 00 daily. [facility] budesonide 2-0 Yes [id number] .5mg Inhale 2 [facility] 0.5 mg/2 mL 6-29 mL 2 (two) it y of nebulizer 00:00: times [place] solution 00 daily. [facility] budesonide 2-0 Yes [id number] .5mg Inhale 2 [facility] 0.5 mg/2 mL 6-29 mL 2 (two) it y of nebulizer 00:00: times [place] solution 00 daily. [facility] budesonide 2-0 Yes [id number] .5mg Inhale 2 [facility] 0.5 mg/2 mL 6-29 mL 2 (two) it y of nebulizer 00:00: times [place] solution 00 daily. [facility] budesonide 2-0 Yes [id number] .5mg Inhale 2 [facility] 0.5 mg/2 mL 6-29 mL 2 (two) it y of nebulizer 00:00: times [place] solution 00 daily. [facility] budesonide 2-0 Yes [id number] .5mg Inhale 2 [facility] 0.5 mg/2 mL 6-29 mL 2 (two) it y of nebulizer 00:00: times [place] solution 00 daily. [facility] budesonide 2-0 Yes [id number] .5mg Inhale 2 [facility] 0.5 mg/2 mL 6-29 mL 2 (two) it y of nebulizer 00:00: times [place] solution 00 daily. [facility] budesonide 2-0 Yes [id number] .5mg Inhale 2 [facility] 0.5 mg/2 mL 6-29 mL 2 (two) it y of nebulizer 00:00: times [place] solution 00 daily. [facility] budesonide 2-0 Yes [id number] .5mg Inhale 2 [facility] 0.5 mg/2 mL 6-29 mL 2 (two) it y of nebulizer 00:00: times [place] solution 00 daily. [facility] budesonide 2-0 Yes [id number] .5mg Inhale 2 [facility] 0.5 mg/2 mL 6-29 mL 2 (two) it y of nebulizer 00:00: times [place] solution 00 daily. [facility] budesonide 2-0 Yes [id number] .5mg Inhale 2 [facility] 0.5 mg/2 mL 6-29 mL 2 (two) it y of nebulizer 00:00: times [place] solution 00 daily. [facility] budesonide 2-0 Yes [id number] .5mg Inhale 2 [facility] 0.5 mg/2 mL 6-29 mL 2 (two) it y of nebulizer 00:00: times [place] solution 00 daily. [facility] budesonide 2-0 Yes [id number] .5mg Inhale 2 [facility] 0.5 mg/2 mL 6-29 mL 2 (two) it y of nebulizer 00:00: times [place] solution 00 daily. [facility] budesonide 2-0 Yes [id number] .5mg Inhale 2 [facility] 0.5 mg/2 mL 6-29 mL 2 (two) it y of nebulizer 00:00: times [place] solution 00 daily. [facility] budesonide 2-0 Yes [id number] .5mg Inhale 2 [facility] 0.5 mg/2 mL 6-29 mL 2 (two) it y of nebulizer 00:00: times [place] solution 00 daily. [facility] budesonide 2-0 Yes [id number] .5mg Inhale 2 [facility] 0.5 mg/2 mL 6-29 mL 2 (two) it y of nebulizer 00:00: times [place] solution 00 daily. [facility] budesonide 2-0 Yes [id number] .5mg Inhale 2 [facility] 0.5 mg/2 mL 6-29 mL 2 (two) it y of nebulizer 00:00: times [place] solution 00 daily. [facility] budesonide 2-0 Yes [id number] .5mg Inhale 2 [facility] 0.5 mg/2 mL 6-29 mL 2 (two) it y of nebulizer 00:00: times [place] solution 00 daily. [facility] budesonide 2-0 Yes [id number] .5mg Inhale 2 [facility] 0.5 mg/2 mL 6-29 mL 2 (two) it y of nebulizer 00:00: times [place] solution 00 daily. [facility] budesonide 2-0 Yes [id number] .5mg Inhale 2 [facility] 0.5 mg/2 mL 6-29 mL 2 (two) it y of nebulizer 00:00: times [place] solution 00 daily. [facility] budesonide 2-0 Yes [id number] .5mg Inhale 2 [facility] 0.5 mg/2 mL 6-29 mL 2 (two) it y of nebulizer 00:00: times [place] solution 00 daily. [facility] budesonide 2-0 Yes [id number] .5mg Inhale 2 [facility] 0.5 mg/2 mL 6-29 mL 2 (two) it y of nebulizer 00:00: times [place] solution 00 daily. [facility] budesonide 2-0 Yes [id number] .5mg Inhale 2 [facility] 0.5 mg/2 mL 6-29 mL 2 (two) it y of nebulizer 00:00: times [place] solution 00 daily. [facility] budesonide 2-0 Yes [id number] .5mg Inhale 2 [facility] 0.5 mg/2 mL 6-29 mL 2 (two) it y of nebulizer 00:00: times [place] solution 00 daily. [facility] budesonide 2-0 Yes [id number] .5mg Inhale 2 [facility] 0.5 mg/2 mL 6-29 mL 2 (two) it y of nebulizer 00:00: times [place] solution 00 daily. [facility] budesonide 2-0 Yes [id number] .5mg Inhale 2 [facility] 0.5 mg/2 mL 6-29 mL 2 (two) it y of nebulizer 00:00: times [place] solution 00 daily. [facility] budesonide 2-0 Yes [id number] .5mg Inhale 2 [facility] 0.5 mg/2 mL 6-29 mL 2 (two) it y of nebulizer 00:00: times [place] solution 00 daily. [facility] budesonide 2-0 Yes [id number] .5mg Inhale 2 [facility] 0.5 mg/2 mL 6-29 mL 2 (two) it y of nebulizer 00:00: times [place] solution 00 daily. [facility] budesonide 2022-0 Yes [id number] .5mg Inhale 2 [facility] 0.5 mg/2 mL 6-29 mL 2 (two) it y of nebulizer 00:00: times [place] solution 00 daily. [facility] budesonide 2022-0 Yes [id number] .5mg Inhale 2 [facility] 0.5 mg/2 mL 6-29 mL 2 (two) it y of nebulizer 00:00: times [place] solution 00 daily. [facility] budesonide 2-0 Yes [id number] .5mg Inhale 2 [facility] 0.5 mg/2 mL 6-29 mL 2 (two) it y of nebulizer 00:00: times [place] solution 00 daily. [facility] budesonide 2-0 Yes [id number] .5mg Inhale 2 [facility] 0.5 mg/2 mL 6-29 mL 2 (two) it y of nebulizer 00:00: times [place] solution 00 daily. [facility] budesonide 2-0 Yes [id number] .5mg Inhale 2 [facility] 0.5 mg/2 mL 6-29 mL 2 (two) it y of nebulizer 00:00: times [place] solution 00 daily. [facility] budesonide 2-0 Yes [id number] .5mg Inhale 2 [facility] 0.5 mg/2 mL 6-29 mL 2 (two) it y of nebulizer 00:00: times [place] solution 00 daily. [facility] budesonide 2-0 Yes [id number] .5mg Inhale 2 [facility] 0.5 mg/2 mL 6-29 mL 2 (two) it y of nebulizer 00:00: times [place] solution 00 daily. [facility] budesonide 2-0 Yes [id number] .5mg Inhale 2 [facility] 0.5 mg/2 mL 6-29 mL 2 (two) it y of nebulizer 00:00: times [place] solution 00 daily. [facility] budesonide 2022-0 Yes [id number] .5mg Inhale 2 [facility] 0.5 mg/2 mL 6-29 mL 2 (two) it y of nebulizer 00:00: times [place] solution 00 daily. [facility] budesonide 2022-0 Yes [id number] .5mg Inhale 2 [facility] 0.5 mg/2 mL 6-29 mL 2 (two) it y of nebulizer 00:00: times [place] solution 00 daily. [facility] budesonide 2021- Yes [id number] .5mg Inhale 2 [facility] 0.5 mg/2 mL 6-29 mL 2 (two) it y of nebulizer 00:00: times [place] solution 00 daily. [facility] budesonide Yes [id number] .5mg Inhale 2 [facility] 0.5 mg/2 mL 6-29 mL 2 (two) it y of nebulizer 00:00: times [place] solution 00 daily. [facility] budesonide Yes [id number] .5mg Inhale 2 [facility] 0.5 mg/2 mL 6-29 mL 2 (two) it y of nebulizer 00:00: times [place] solution 00 daily. [facility] budesonide 2022- No [id number] .5mg Inhale 2 [facility] 0.5 mg/2 mL 6-29 11-03 mL 2 (two) i ty of nebulizer 00:00: 00:00 times [place] solution 00 :00 daily. [facility] budesonide 2022- No [id number] .5mg Inhale 2 [facility] 0.5 mg/2 mL 6-29 11-03 mL 2 (two) i ty of nebulizer 00:00: 00:00 times [place] solution 00 :00 daily. [facility] budesonide 2022- No [id number] .5mg Inhale 2 [facility] 0.5 mg/2 mL 6-29 11-03 mL 2 (two) i ty of nebulizer 00:00: 00:00 times [place] solution 00 :00 daily. [facility] albuterol Yes [id number] 2{puff} Inhale 2 [facility] 90 6-16 Puffs ity of mcg/actuati 00:00: every 6 [facility] as on inhaler 00 (six) Medical hours [facility] needed for Wheezing or Shortness of Breath. albuterol Yes [id number] 2{puff} Inhale 2 [facility] 90 6-16 Puffs ity of mcg/actuati 00:00: every 6 [place] as on inhaler 00 (six) Medical hours [facility] needed for Wheezing or Shortness of Breath. albuterol Yes [id number] 2{puff} Inhale 2 [facility] 90 6-16 Puffs ity of mcg/actuati 00:00: every 6 [place] on inhaler 00 (six) Medical hours [facility] needed for Wheezing or Shortness of Breath. albuterol Yes [id number] 2{puff} Inhale 2 [facility] 90 6-16 Puffs ity of mcg/actuati 00:00: every 6 [place] on inhaler 00 (six) Medical hours [facility] needed for Wheezing or Shortness of Breath. albuterol Yes [id number] 2{puff} Inhale 2 [facility] 90 6-16 Puffs ity of mcg/actuati 00:00: every 6 [place] on inhaler 00 (six) Medical hours [facility] needed for Wheezing or Shortness of Breath. albuterol Yes [id number] 2{puff} Inhale 2 [facility] 90 6-16 Puffs ity of mcg/actuati 00:00: every 6 [place] on inhaler 00 (six) Medical hours [facility] needed for Wheezing or Shortness of Breath. albuterol Yes [id number] 2{puff} Inhale 2 [facility] 90 6-16 Puffs ity of mcg/actuati 00:00: every 6 [place] on inhaler 00 (six) Medical hours [facility] needed for Wheezing or Shortness of Breath. albuterol Yes [id number] 2{puff} Inhale 2 [facility] 90 6-16 Puffs ity of mcg/actuati 00:00: every 6 [place] on inhaler 00 (six) Medical hours [facility] needed for Wheezing or Shortness of Breath. albuterol Yes [id number] 2{puff} Inhale 2 [facility] 90 6-16 Puffs ity of mcg/actuati 00:00: every 6 [place] on inhaler 00 (six) Medical hours [facility] needed for Wheezing or Shortness of Breath. albuterol Yes [id number] 2{puff} Inhale 2 [facility] 90 6-16 Puffs ity of mcg/actuati 00:00: every 6 [place] on inhaler 00 (six) Medical hours [facility] needed for Wheezing or Shortness of Breath. albuterol Yes [id number] 2{puff} Inhale 2 [facility] 90 6-16 Puffs ity of mcg/actuati 00:00: every 6 [place] on inhaler 00 (six) Medical hours [facility] needed for Wheezing or Shortness of Breath. albuterol Yes [id number] 2{puff} Inhale 2 [facility] 90 6-16 Puffs ity of mcg/actuati 00:00: every 6 [place] on inhaler 00 (six) Medical hours [facility] needed for Wheezing or Shortness of Breath. albuterol Yes [id number] 2{puff} Inhale 2 [facility] 90 6-16 Puffs ity of mcg/actuati 00:00: every 6 [place] as on inhaler 00 (six) Medical hours [facility] needed for Wheezing or Shortness of Breath. albuterol Yes [id number] 2{puff} Inhale 2 [facility] 90 6-16 Puffs ity of mcg/actuati 00:00: every 6 [place] as on inhaler 00 (six) Medical hours [facility] needed for Wheezing or Shortness of Breath. albuterol Yes [id number] 2{puff} Inhale 2 [facility] 90 6-16 Puffs ity of mcg/actuati 00:00: every 6 [facility] as on inhaler 00 (six) Medical hours [facility] needed for Wheezing or Shortness of Breath. albuterol Yes [id number] 2{puff} Inhale 2 [facility] 90 6-16 Puffs ity of mcg/actuati 00:00: every 6 [place] as on inhaler 00 (six) Medical hours [facility] needed for Wheezing or Shortness of Breath. albuterol Yes [id number] 2{puff} Inhale 2 [facility] 90 6-16 Puffs ity of mcg/actuati 00:00: every 6 [place] as on inhaler 00 (six) Medical hours [facility] needed for Wheezing or Shortness of Breath. albuterol Yes [id number] 2{puff} Inhale 2 [facility] 90 6-16 Puffs ity of mcg/actuati 00:00: every 6 [facility] as on inhaler 00 (six) Medical hours [facility] needed for Wheezing or Shortness of Breath. albuterol Yes [id number] 2{puff} Inhale 2 [facility] 90 6-16 Puffs ity of mcg/actuati 00:00: every 6 [facility] as on inhaler 00 (six) Medical hours as Branch needed for Wheezing or Shortness of Breath. albuterol Yes [id number] 2{puff} Inhale 2 [facility] 90 6-16 Puffs ity of mcg/actuati 00:00: every 6 Giorgio as on inhaler 00 (six) Medical hours as Branch needed for Wheezing or Shortness of Breath. albuterol Yes [id number] 2{puff} Inhale 2 [facility] 90 6-16 Puffs ity of mcg/actuati 00:00: every 6 Giorgio as on inhaler 00 (six) Medical hours as Branch needed for Wheezing or Shortness of Breath. albuterol Yes [id number] 2{puff} Inhale 2 [facility] 90 6-16 Puffs ity of mcg/actuati 00:00: every 6 Giorgio as on inhaler 00 (six) Medical hours as Branch needed for Wheezing or Shortness of Breath. albuterol Yes [id number] 2{puff} Inhale 2 [facility] 90 6-16 Puffs ity of mcg/actuati 00:00: every 6 [place] as on inhaler 00 (six) Medical hours as Branch needed for Wheezing or Shortness of Breath. albuterol Yes [id number] 2{puff} Inhale 2 [facility] 90 6-16 Puffs ity of mcg/actuati 00:00: every 6 [place] as on inhaler 00 (six) Medical hours as Branch needed for Wheezing or Shortness of Breath. albuterol Yes [id number] 2{puff} Inhale 2 [facility] 90 6-16 Puffs ity of mcg/actuati 00:00: every 6 [place] as on inhaler 00 (six) Medical hours as Branch needed for Wheezing or Shortness of Breath. albuterol Yes [id number] 2{puff} Inhale 2 [facility] 90 6-16 Puffs ity of mcg/actuati 00:00: every 6 [place] [facility] on inhaler 00 (six) Medical hours as Branch needed for Wheezing or Shortness of Breath. albuterol Yes [id number] 2{puff} Inhale 2 [facility] 90 6-16 Puffs ity of mcg/actuati 00:00: every 6 [place] [facility] on inhaler 00 (six) Medical hours as Branch needed for Wheezing or Shortness of Breath. albuterol Yes [id number] 2{puff} Inhale 2 [facility] 90 6-16 Puffs ity of mcg/actuati 00:00: every 6 [place] [facility] on inhaler 00 (six) Medical hours as Branch needed for Wheezing or Shortness of Breath. albuterol Yes [id number] 2{puff} Inhale 2 [facility] 90 6-16 Puffs ity of mcg/actuati 00:00: every 6 [place] as on inhaler 00 (six) Medical hours as Branch needed for Wheezing or Shortness of Breath. albuterol Yes [id number] 2{puff} Inhale 2 [facility] 90 6-16 Puffs ity of mcg/actuati 00:00: every 6 [place] [facility] on inhaler 00 (six) Medical hours as Branch needed for Wheezing or Shortness of Breath. albuterol Yes [id number] 2{puff} Inhale 2 [facility] 90 6-16 Puffs ity of mcg/actuati 00:00: every 6 [place] [facility] on inhaler 00 (six) Medical hours as Branch needed for Wheezing or Shortness of Breath. albuterol Yes [id number] 2{puff} Inhale 2 [facility] 90 6-16 Puffs ity of mcg/actuati 00:00: every 6 [place] [facility] on inhaler 00 (six) Medical hours as Branch needed for Wheezing or Shortness of Breath. albuterol Yes [id number] 2{puff} Inhale 2 [facility] 90 6-16 Puffs ity of mcg/actuati 00:00: every 6 [place] as on inhaler 00 (six) Medical hours as Branch needed for Wheezing or Shortness of Breath. albuterol Yes [id number] 2{puff} Inhale 2 [facility] 90 6-16 Puffs ity of mcg/actuati 00:00: every 6 [place] as on inhaler 00 (six) Medical hours as Branch needed for Wheezing or Shortness of Breath. albuterol Yes [id number] 2{puff} Inhale 2 [facility] 90 6-16 Puffs ity of mcg/actuati 00:00: every 6 [place] as on inhaler 00 (six) Medical hours as Branch needed for Wheezing or Shortness of Breath. albuterol Yes [id number] 2{puff} Inhale 2 [facility] 90 6-16 Puffs ity of mcg/actuati 00:00: every 6 [place] as on inhaler 00 (six) Medical hours as Branch needed for Wheezing or Shortness of Breath. albuterol Yes [id number] 2{puff} Inhale 2 [facility] 90 6-16 Puffs ity of mcg/actuati 00:00: every 6 [place] as on inhaler 00 (six) Medical hours as Branch needed for Wheezing or Shortness of Breath. albuterol Yes [id number] 2{puff} Inhale 2 [facility] 90 6-16 Puffs ity of mcg/actuati 00:00: every 6 [place] as on inhaler 00 (six) Medical hours as Branch needed for Wheezing or Shortness of Breath. albuterol Yes [id number] 2{puff} Inhale 2 [facility] 90 6-16 Puffs ity of mcg/actuati 00:00: every 6 [place] as on inhaler 00 (six) Medical hours as Branch needed for Wheezing or Shortness of Breath. albuterol Yes [id number] 2{puff} Inhale 2 [facility] 90 6-16 Puffs ity of mcg/actuati 00:00: every 6 [place] as on inhaler 00 (six) Medical hours as Branch needed for Wheezing or Shortness of Breath. albuterol Yes [id number] 2{puff} Inhale 2 [facility] 90 6-16 Puffs ity of mcg/actuati 00:00: every 6 [place] as on inhaler 00 (six) Medical hours as Branch needed for Wheezing or Shortness of Breath. albuterol Yes [id number] 2{puff} Inhale 2 [facility] 90 6-16 Puffs ity of mcg/actuati 00:00: every 6 [place] as on inhaler 00 (six) Medical hours as Branch needed for Wheezing or Shortness of Breath. albuterol Yes [id number] 2{puff} Inhale 2 [facility] 90 6-16 Puffs ity of mcg/actuati 00:00: every 6 [place] as on inhaler 00 (six) Medical hours as Branch needed for Wheezing or Shortness of Breath. albuterol Yes [id number] 2{puff} Inhale 2 [facility] 90 6-16 Puffs ity of mcg/actuati 00:00: every 6 [place] as on inhaler 00 (six) Medical hours as Branch needed for Wheezing or Shortness of Breath. albuterol Yes [id number] 2{puff} Inhale 2 [facility] 90 6-16 Puffs ity of mcg/actuati 00:00: every 6 [place] as on inhaler 00 (six) Medical hours as Branch needed for Wheezing or Shortness of Breath. albuterol Yes [id number] 2{puff} Inhale 2 [facility] 90 6-16 Puffs ity of mcg/actuati 00:00: every 6 [place] as on inhaler 00 (six) Medical hours as Branch needed for Wheezing or Shortness of Breath. albuterol Yes [id number] 2{puff} Inhale 2 [facility] 90 6-16 Puffs ity of mcg/actuati 00:00: every 6 [place] as on inhaler 00 (six) Medical hours as Branch needed for Wheezing or Shortness of Breath. albuterol 2022- No [id number] 2{puff} Inhale 2 [facility] 90 6-16 04-18 Puffs ity of mcg/actuati 00:00: 00:00 every 6 [place] on inhaler 00 :00 (six) Medical hours as Branch needed for Wheezing or Shortness of Breath. albuterol 2022- No [id number] 2{puff} Inhale 2 [facility] 90 6-16 04-18 Puffs ity of mcg/actuati 00:00: 00:00 every 6 [place] on inhaler 00 :00 (six) Medical hours as Branch needed for Wheezing or Shortness of Breath. albuterol 2022- No [id number] 2{puff} Inhale 2 [facility] 90 6-16 04-18 Puffs ity of mcg/actuati 00:00: 00:00 every 6 [place] on inhaler 00 :00 (six) Medical hours as Branch needed for Wheezing or Shortness of Breath. metFORMIN Yes [id number] 500mg Take 1 [facility] 500 mg 6-13 tablet by ity of tablet 00:00: mouth (two) Medical times Branch daily with meals. metFORMIN 2022-0 Yes [id number] 500mg Take 1 [facility] 500 mg 6-13 tablet by ity of tablet 00:00: mouth (two) Medical times Branch daily with meals. metFORMIN 2022-0 Yes [id number] 500mg Take 1 [facility] 500 mg 6-13 tablet by ity of tablet 00:00: mouth (two) Medical times Branch daily with meals. metFORMIN 2022-0 Yes [id number] 500mg Take 1 [facility] 500 mg 6-13 tablet by ity of tablet 00:00: mouth (two) Medical times Branch daily with meals. metFORMIN 2022-0 Yes [id number] 500mg Take 1 [facility] 500 mg 6-13 tablet by ity of tablet 00:00: mouth (two) Medical times Branch daily with meals. metFORMIN 2022-0 Yes [id number] 500mg Take 1 [facility] 500 mg 6-13 tablet by ity of tablet 00:00: mouth (two) Medical times Branch daily with meals. metFORMIN 2022-0 Yes [id number] 500mg Take 1 [facility] 500 mg 6-13 tablet by ity of tablet 00:00: mouth (two) Medical times Branch daily with meals. metFORMIN 2022-0 Yes [id number] 500mg Take 1 [facility] 500 mg 6-13 tablet by ity of tablet 00:00: mouth (two) Medical times Branch daily with meals. metFORMIN 2022-0 Yes [id number] 500mg Take 1 [facility] 500 mg 6-13 tablet by ity of tablet 00:00: mouth (two) Medical times Branch daily with meals. metFORMIN 2022-0 Yes [id number] 500mg Take 1 [facility] 500 mg 6-13 tablet by ity of tablet 00:00: mouth (two) Medical times Branch daily with meals. metFORMIN 2022-0 Yes [id number] 500mg Take 1 [facility] 500 mg 6-13 tablet by ity of tablet 00:00: mouth (two) Medical times Branch daily with meals. metFORMIN 2022-0 Yes [id number] 500mg Take 1 [facility] 500 mg 6-13 tablet by ity of tablet 00:00: mouth (two) Medical times Branch daily with meals. metFORMIN 2022-0 Yes [id number] 500mg Take 1 [facility] 500 mg 6-13 tablet by ity of tablet 00:00: mouth (two) Medical times Branch daily with meals. metFORMIN 2022-0 Yes [id number] 500mg Take 1 [facility] 500 mg 6-13 tablet by ity of tablet 00:00: mouth (two) Medical times Branch daily with meals. metFORMIN 2022-0 Yes [id number] 500mg Take 1 [facility] 500 mg 6-13 tablet by ity of tablet 00:00: mouth (two) Medical times Branch daily with meals. metFORMIN 2022-0 Yes [id number] 500mg Take 1 [facility] 500 mg 6-13 tablet by ity of tablet 00:00: mouth (two) Medical times Branch daily with meals. metFORMIN 2022-0 Yes [id number] 500mg Take 1 [facility] 500 mg 6-13 tablet by ity of tablet 00:00: mouth (two) Medical times Branch daily with meals. metFORMIN 2022-0 Yes [id number] 500mg Take 1 [facility] 500 mg 6-13 tablet by ity of tablet 00:00: mouth (two) Medical times Branch daily with meals. metFORMIN 2022-0 Yes [id number] 500mg Take 1 [facility] 500 mg 6-13 tablet by ity of tablet 00:00: [facility] (two) Medical times Branch daily with meals. metFORMIN 2022-0 Yes [id number] 500mg Take 1 [facility] 500 mg 6-13 tablet by ity of tablet 00:00: [facility] (two) Medical times Branch daily with meals. metFORMIN 2022-0 Yes [id number] 500mg Take 1 [facility] 500 mg 6-13 tablet by ity of tablet 00:00: mouth (two) Medical times Branch daily with meals. metFORMIN 2022-0 Yes [id number] 500mg Take 1 [facility] 500 mg 6-13 tablet by ity of tablet 00:00: mouth (two) Medical times Branch daily with meals. metFORMIN 2022-0 Yes [id number] 500mg Take 1 [facility] 500 mg 6-13 tablet by ity of tablet 00:00: mouth (two) Medical times Branch daily with meals. metFORMIN 2022-0 Yes [id number] 500mg Take 1 [facility] 500 mg 6-13 tablet by ity of tablet 00:00: mouth (two) Medical times Branch daily with meals. metFORMIN 2-0 Yes [id number] 500mg Take 1 [facility] 500 mg 6-13 tablet by ity of tablet 00:00: mouth (two) Medical times Branch daily with meals. metFORMIN 2022-0 Yes [id number] 500mg Take 1 [facility] 500 mg 6-13 tablet by ity of tablet 00:00: mouth (two) Medical times Branch daily with meals. metFORMIN 2021-0 Yes [id number] 500mg Take 1 [facility] 500 mg 6-13 tablet by ity of tablet 00:00: mouth (two) Medical times Branch daily with meals. metFORMIN 2021-0 Yes [id number] 500mg Take 1 [facility] 500 mg 6-13 tablet by ity of tablet 00:00: mouth (two) Medical times Branch daily with meals. metFORMIN 2021-0 Yes [id number] 500mg Take 1 [facility] 500 mg 6-13 tablet by ity of tablet 00:00: mouth (two) Medical times Branch daily with meals. metFORMIN 2021-0 Yes [id number] 500mg Take 1 [facility] 500 mg 6-13 tablet by ity of tablet 00:00: mouth (two) Medical times Branch daily with meals. metFORMIN 2021-0 Yes [id number] 500mg Take 1 [facility] 500 mg 6-13 tablet by ity of tablet 00:00: mouth (two) Medical times Branch daily with meals. metFORMIN 2-0 Yes [id number] 500mg Take 1 [facility] 500 mg 6-13 tablet by ity of tablet 00:00: mouth (two) Medical times Branch daily with meals. metFORMIN 2022-0 Yes [id number] 500mg Take 1 [facility] 500 mg 6-13 tablet by ity of tablet 00:00: mouth (two) Medical times Branch daily with meals. metFORMIN 2022-0 Yes [id number] 500mg Take 1 [facility] 500 mg 6-13 tablet by ity of tablet 00:00: mouth (two) Medical times Branch daily with meals. metFORMIN 2022-0 Yes [id number] 500mg Take 1 [facility] 500 mg 6-13 tablet by ity of tablet 00:00: mouth (two) Medical times Branch daily with meals. metFORMIN 2022-0 Yes [id number] 500mg Take 1 [facility] 500 mg 6-13 tablet by ity of tablet 00:00: mouth (two) Medical times Branch daily with meals. metFORMIN 2022-0 Yes [id number] 500mg Take 1 [facility] 500 mg 6-13 tablet by ity of tablet 00:00: mouth (two) Medical times Branch daily with meals. metFORMIN 2022-0 Yes [id number] 500mg Take 1 [facility] 500 mg 6-13 tablet by ity of tablet 00:00: mouth (two) Medical times Branch daily with meals. metFORMIN 2022-0 Yes [id number] 500mg Take 1 [facility] 500 mg 6-13 tablet by ity of tablet 00:00: mouth (two) Medical times Branch daily with meals. metFORMIN 2022-0 Yes [id number] 500mg Take 1 [facility] 500 mg 6-13 tablet by ity of tablet 00:00: mouth (two) Medical times Branch daily with meals. metFORMIN 2022-0 Yes [id number] 500mg Take 1 [facility] 500 mg 6-13 tablet by ity of tablet 00:00: mouth (two) Medical times Branch daily with meals. metFORMIN 2022-0 Yes [id number] 500mg Take 1 [facility] 500 mg 6-13 tablet by ity of tablet 00:00: mouth (two) Medical times Branch daily with meals. metFORMIN 2022-0 Yes [id number] 500mg Take 1 [facility] 500 mg 6-13 tablet by ity of tablet 00:00: mouth (two) Medical times Branch daily with meals. metFORMIN 2022-0 Yes [id number] 500mg Take 1 [facility] 500 mg 6-13 tablet by ity of tablet 00:00: mouth (two) Medical times Branch daily with meals. metFORMIN 2022-0 Yes [id number] 500mg Take 1 [facility] 500 mg 6-13 tablet by ity of tablet 00:00: mouth (two) Medical times Branch daily with meals. metFORMIN 2022-0 Yes [id number] 500mg Take 1 [facility] 500 mg 6-13 tablet by ity of tablet 00:00: mouth 2 [place] 00 (two) Medical times Branch daily with meals. metFORMIN 2021-0 Yes [id number] 500mg Take 1 [facility] 500 mg 6-13 tablet by ity of tablet 00:00: mouth 2 [place] 00 (two) Medical times Branch daily with meals. metFORMIN 2021-0 3- No [id number] 500mg Take 1 [facility] 500 mg 6-13 04-18 tablet by ity of tablet 00:00: 00:00 mouth 2 [place] 00 :00 (two) Medical times Branch daily with meals. metFORMIN 2021-0 3- No [id number] 500mg Take 1 [facility] 500 mg 6-13 04-18 tablet by ity of tablet 00:00: 00:00 mouth 2 [place] 00 :00 (two) Medical times Branch daily with meals. metFORMIN 2021-0 3- No [id number] 500mg Take 1 [facility] 500 mg 6-13 04-18 tablet by ity of tablet 00:00: 00:00 mouth 2 [place] 00 :00 (two) Medical times Branch daily with meals. nitroglycer 2021-[id number] 1 [facility] in 0.4 mg 6-02 tablet ity of sublingual 00:00: under the [place] tablet 00 tongue Medical every 5 Branch (five) minutes as needed for Chest pain. nitroglycer 2021-[id number] 1 [facility] in 0.4 mg 6-02 tablet ity of sublingual 00:00: under the [place] tablet 00 tongue Medical every 5 Branch (five) minutes as needed for Chest pain. nitroglycer 2021-[id number] 1 [facility] in 0.4 mg 6-02 tablet ity of sublingual 00:00: under the [place] tablet 00 tongue Medical every 5 Branch (five) minutes as needed for Chest pain. nitroglycer 2-[id number] 1 [facility] in 0.4 mg 6-02 tablet ity of sublingual 00:00: under the [place] tablet 00 tongue Medical every 5 Branch (five) minutes as needed for Chest pain. nitroglycer 2021-[id number] 1 [facility] in 0.4 mg 6-02 tablet ity of sublingual 00:00: under the [place] tablet 00 tongue Medical every 5 Branch (five) minutes as needed for Chest pain. nitroglycer 2022-[id number] 1 [facility] in 0.4 mg 6-02 tablet ity of sublingual 00:00: under the [place] tablet 00 tongue Medical every 5 Branch (five) minutes as needed for Chest pain. nitroglycer 2022-[id number] 1 [facility] in 0.4 mg 6-02 tablet ity of sublingual 00:00: under the [place] tablet 00 tongue Medical every 5 Branch (five) minutes as needed for Chest pain. nitroglycer 2022-[id number] 1 [facility] in 0.4 mg 6-02 tablet ity of sublingual 00:00: under the [place] tablet 00 tongue Medical every 5 Branch (five) minutes as needed for Chest pain. nitroglycer 2022-[id number] 1 [facility] in 0.4 mg 6-02 tablet ity of sublingual 00:00: under the [place] tablet 00 tongue Medical every 5 Branch (five) minutes as needed for Chest pain. nitroglycer 2022-[id number] 1 [facility] in 0.4 mg 6-02 tablet ity of sublingual 00:00: under the [place] tablet 00 tongue Medical every 5 Branch (five) minutes as needed for Chest pain. nitroglycer 2022-[id number] 1 [facility] in 0.4 mg 6-02 tablet ity of sublingual 00:00: under the [place] tablet 00 tongue Medical every 5 Branch (five) minutes as needed for Chest pain. nitroglycer 2022-[id number] 1 [facility] in 0.4 mg 6-02 tablet ity of sublingual 00:00: under the [place] tablet 00 tongue Medical every 5 Branch (five) minutes as needed for Chest pain. nitroglycer 2022-[id number] 1 [facility] in 0.4 mg 6-02 tablet ity of sublingual 00:00: under the [place] tablet 00 tongue Medical every 5 Branch (five) minutes as needed for Chest pain. nitroglycer 2022-[id number] 1 [facility] in 0.4 mg 6-02 tablet ity of sublingual 00:00: under the [place] tablet 00 tongue Medical every 5 Branch (five) minutes as needed for Chest pain. nitroglycer 2022-[id number] 1 [facility] in 0.4 mg 6-02 tablet ity of sublingual 00:00: under the [place] tablet 00 tongue Medical every 5 Branch (five) minutes as needed for Chest pain. nitroglycer 2022-[id number] 1 [facility] in 0.4 mg 6-02 tablet ity of sublingual 00:00: under the [place] tablet 00 tongue Medical every 5 Branch (five) minutes as needed for Chest pain. nitroglycer 2022-[id number] 1 [facility] in 0.4 mg 6-02 tablet ity of sublingual 00:00: under the [place] tablet 00 tongue Medical every 5 Branch (five) minutes as needed for Chest pain. nitroglycer 2022-[id number] 1 [facility] in 0.4 mg 6-02 tablet ity of sublingual 00:00: under the [place] tablet 00 tongue Medical every 5 Branch (five) minutes as needed for Chest pain. nitroglycer 2022-[id number] 1 [facility] in 0.4 mg 6-02 tablet ity of sublingual 00:00: under the [place] tablet 00 tongue Medical every 5 Branch (five) minutes as needed for Chest pain. nitroglycer 2022-[id number] 1 [facility] in 0.4 mg 6-02 tablet ity of sublingual 00:00: under the [place] tablet 00 tongue Medical every 5 Branch (five) minutes as needed for Chest pain. nitroglycer 2022-[id number] 1 [facility] in 0.4 mg 6-02 tablet ity of sublingual 00:00: under the [place] tablet 00 tongue Medical every 5 Branch (five) minutes as needed for Chest pain. nitroglycer 2022-[id number] 1 [facility] in 0.4 mg 6-02 tablet ity of sublingual 00:00: under the [place] tablet 00 tongue Medical every 5 Branch (five) minutes as needed for Chest pain. nitroglycer 2022-[id number] 1 [facility] in 0.4 mg 6-02 tablet ity of sublingual 00:00: under the [place] tablet 00 tongue Medical every 5 Branch (five) minutes as needed for Chest pain. nitroglycer 2022-[id number] 1 [facility] in 0.4 mg 6-02 tablet ity of sublingual 00:00: under the [place] tablet 00 tongue Medical every 5 Branch (five) minutes as needed for Chest pain. nitroglycer 2022-[id number] 1 [facility] in 0.4 mg 6-02 tablet ity of sublingual 00:00: under the [place] tablet 00 tongue Medical every 5 Branch (five) minutes as needed for Chest pain. nitroglycer 2022-[id number] 1 [facility] in 0.4 mg 6-02 tablet ity of sublingual 00:00: under the [place] tablet 00 tongue Medical every 5 Branch (five) minutes as needed for Chest pain. nitroglycer 2022-[id number] 1 [facility] in 0.4 mg 6-02 tablet ity of sublingual 00:00: under the [place] tablet 00 tongue Medical every 5 Branch (five) minutes as needed for Chest pain. nitroglycer 2022-[id number] 1 [facility] in 0.4 mg 6-02 tablet ity of sublingual 00:00: under the [place] tablet 00 tongue Medical every 5 Branch (five) minutes as needed for Chest pain. nitroglycer 2022-[id number] 1 [facility] in 0.4 mg 6-02 tablet ity of sublingual 00:00: under the [place] tablet 00 tongue Medical every 5 Branch (five) minutes as needed for Chest pain. nitroglycer 2022-[id number] 1 [facility] in 0.4 mg 6-02 tablet ity of sublingual 00:00: under the [place] tablet 00 tongue Medical every 5 Branch (five) minutes as needed for Chest pain. nitroglycer 2022-[id number] 1 [facility] in 0.4 mg 6-02 tablet ity of sublingual 00:00: under the [place] tablet 00 tongue Medical every 5 Branch (five) minutes as needed for Chest pain. nitroglycer 2022-[id number] 1 [facility] in 0.4 mg 6-02 tablet ity of sublingual 00:00: under the [place] tablet 00 tongue Medical every 5 Branch (five) minutes as needed for Chest pain. nitroglycer 2022-[id number] 1 [facility] in 0.4 mg 6-02 tablet ity of sublingual 00:00: under the [place] tablet 00 tongue Medical every 5 Branch (five) minutes as needed for Chest pain. nitroglycer 2022-[id number] 1 [facility] in 0.4 mg 6-02 tablet ity of sublingual 00:00: under the [place] tablet 00 tongue Medical every 5 Branch (five) minutes as needed for Chest pain. nitroglycer 2022-[id number] 1 [facility] in 0.4 mg 6-02 tablet ity of sublingual 00:00: under the [place] tablet 00 tongue Medical every 5 Branch (five) minutes as needed for Chest pain. nitroglycer 2022-[id number] 1 [facility] in 0.4 mg 6-02 tablet ity of sublingual 00:00: under the [place] tablet 00 tongue Medical every 5 Branch (five) minutes as needed for Chest pain. nitroglycer 2022-[id number] 1 [facility] in 0.4 mg 6-02 tablet ity of sublingual 00:00: under the [place] tablet 00 tongue Medical every 5 Branch (five) minutes as needed for Chest pain. nitroglycer 2022-[id number] 1 [facility] in 0.4 mg 6-02 tablet ity of sublingual 00:00: under the [place] tablet 00 tongue Medical every 5 Branch (five) minutes as needed for Chest pain. nitroglycer 2022-[id number] 1 [facility] in 0.4 mg 6-02 tablet ity of sublingual 00:00: under the [place] tablet 00 tongue Medical every 5 Branch (five) minutes as needed for Chest pain. nitroglycer 2022-[id number] 1 [facility] in 0.4 mg 6-02 tablet ity of sublingual 00:00: under the [place] tablet 00 tongue Medical every 5 Branch (five) minutes as needed for Chest pain. nitroglycer 2022-[id number] 1 [facility] in 0.4 mg 6-02 tablet ity of sublingual 00:00: under the [place] tablet 00 tongue Medical every 5 Branch (five) minutes as needed for Chest pain. nitroglycer 2022-[id number] 1 [facility] in 0.4 mg 6-02 tablet ity of sublingual 00:00: under the [place] tablet 00 tongue Medical every 5 Branch (five) minutes as needed for Chest pain. nitroglycer 2022-[id number] 1 [facility] in 0.4 mg 6-02 tablet ity of sublingual 00:00: under the [place] tablet 00 tongue Medical every 5 Branch (five) minutes as needed for Chest pain. nitroglycer 2022-[id number] 1 [facility] in 0.4 mg 6-02 tablet ity of sublingual 00:00: under the [place] tablet 00 tongue Medical every 5 Branch (five) minutes as needed for Chest pain. nitroglycer 2022-[id number] 1 [facility] in 0.4 mg 6-02 tablet ity of sublingual 00:00: under the [place] tablet 00 tongue Medical every 5 Branch (five) minutes as needed for Chest pain. nitroglycer 2022-[id number] 1 [facility] in 0.4 mg 6-02 tablet ity of sublingual 00:00: under the [place] tablet 00 tongue Medical every 5 Branch (five) minutes as needed for Chest pain. nitroglycer 2022-[id number] 1 [facility] in 0.4 mg 6-02 tablet ity of sublingual 00:00: under the [place] tablet 00 tongue Medical every 5 Branch (five) minutes as needed for Chest pain. nitroglycer 2022-[id number] 1 [facility] in 0.4 mg 6-02 tablet ity of sublingual 00:00: under the [place] tablet 00 tongue Medical every 5 Branch (five) minutes as needed for Chest pain. nitroglycer 2022-[id number] 1 [facility] in 0.4 mg 6-02 tablet ity of sublingual 00:00: under the [place] tablet 00 tongue Medical every 5 Branch (five) minutes as needed for Chest pain. nitroglycer 2022-[id number] 1 [facility] in 0.4 mg 6-02 tablet ity of sublingual 00:00: under the [place] tablet 00 tongue Medical every 5 Branch (five) minutes as needed for Chest pain. nitroglycer 2022-[id number] 1 [facility] in 0.4 mg 6-02 tablet ity of sublingual 00:00: under the [place] tablet 00 tongue Medical every 5 Branch (five) minutes as needed for Chest pain. nitroglycer 2022-[id number] 1 [facility] in 0.4 mg 6-02 tablet ity of sublingual 00:00: under the [place] tablet 00 tongue Medical every 5 Branch (five) minutes as needed for Chest pain. nitroglycer 2022-[id number] 1 [facility] in 0.4 mg 6-02 tablet ity of sublingual 00:00: under the [place] tablet 00 tongue Medical every 5 Branch (five) minutes as needed for Chest pain. nitroglycer 2022-[id number] 1 [facility] in 0.4 mg 6-02 tablet ity of sublingual 00:00: under the [place] tablet 00 tongue Medical every 5 Branch (five) minutes as needed for Chest pain. nitroglycer 2022-[id number] 1 [facility] in 0.4 mg 6-02 tablet ity of sublingual 00:00: under the [place] tablet 00 tongue Medical every 5 Branch (five) minutes as needed for Chest pain. nitroglycer 2022-[id number] 1 [facility] in 0.4 mg 6-02 tablet ity of sublingual 00:00: [facility] the [place] tablet 00 tongue Medical every 5 Branch (five) minutes as needed for Chest pain. nitroglycer 2022-[id number] [facility] in 0.4 mg 6-02 tablet ity of sublingual 00:00: under the [place] tablet 00 tongue Medical every 5 Branch (five) minutes as needed for Chest pain. nitroglycer 2022-[id number] 1 [facility] in 0.4 mg 6-02 tablet ity of sublingual 00:00: under the [place] tablet 00 tongue Medical every 5 Branch (five) minutes as needed for Chest pain. nitroglycer 2022-[id number] 1 [facility] in 0.4 mg 6-02 tablet ity of sublingual 00:00: under the [place] tablet 00 tongue Medical every 5 Branch (five) minutes as needed for Chest pain. nitroglycer 2022-[id number] 1 [facility] in 0.4 mg 6-02 tablet ity of sublingual 00:00: under the [place] tablet 00 tongue Medical every 5 Branch (five) minutes as needed for Chest pain. nitroglycer 2022-[id number] 1 [facility] in 0.4 mg 6-02 tablet ity of sublingual 00:00: under the [place] tablet 00 tongue Medical every 5 Branch (five) minutes as needed for Chest pain. nitroglycer 2022-[id number] 1 [facility] in 0.4 mg 6-02 tablet ity of sublingual 00:00: under the [place] tablet 00 tongue Medical every 5 Branch (five) minutes as needed for Chest pain. nitroglycer 2022-[id number] 1 [facility] in 0.4 mg 6-02 tablet ity of sublingual 00:00: under the [place] tablet 00 tongue Medical every 5 Branch (five) minutes as needed for Chest pain. nitroglycer 2022-[id number] 1 [facility] in 0.4 mg 6-02 tablet ity of sublingual 00:00: under the [place] tablet 00 tongue Medical every 5 Branch (five) minutes as needed for Chest pain. nitroglycer 2022-[id number] 1 [facility] in 0.4 mg 6-02 tablet ity of sublingual 00:00: under the [place] tablet 00 tongue Medical every 5 Branch (five) minutes as needed for Chest pain. nitroglycer 2022-[id number] 1 [facility] in 0.4 mg 6-02 tablet ity of sublingual 00:00: under the [place] tablet 00 tongue Medical every 5 Branch (five) minutes as needed for Chest pain. nitroglycer 2022-[id number] 1 [facility] in 0.4 mg 6-02 tablet ity of sublingual 00:00: under the [place] tablet 00 tongue Medical every 5 Branch (five) minutes as needed for Chest pain. nitroglycer 2022-[id number] 1 [facility] in 0.4 mg 6-02 tablet ity of sublingual 00:00: under the [place] tablet 00 tongue Medical every 5 Branch (five) minutes as needed for Chest pain. nitroglycer 2022-[id number] 1 [facility] in 0.4 mg 6-02 tablet ity of sublingual 00:00: under the [place] tablet 00 tongue Medical every 5 Branch (five) minutes as needed for Chest pain. nitroglycer 2022-[id number] 1 [facility] in 0.4 mg 6-02 tablet ity of sublingual 00:00: under the [place] tablet 00 tongue Medical every 5 Branch (five) minutes as needed for Chest pain. nitroglycer 2022-[id number] 1 [facility] in 0.4 mg 6-02 tablet ity of sublingual 00:00: under the [place] tablet 00 tongue Medical every 5 Branch (five) minutes as needed for Chest pain. nitroglycer 2022-[id number] 1 [facility] in 0.4 mg 6-02 tablet ity of sublingual 00:00: under the [place] tablet 00 tongue Medical every 5 Branch (five) minutes as needed for Chest pain. nitroglycer 2022-[id number] 1 [facility] in 0.4 mg 6-02 tablet ity of sublingual 00:00: under the [place] tablet 00 tongue Medical every 5 Branch (five) minutes as needed for Chest pain. nitroglycer 2022-[id number] 1 [facility] in 0.4 mg 6-02 tablet ity of sublingual 00:00: under the [place] tablet 00 tongue Medical every 5 Branch (five) minutes as needed for Chest pain. nitroglycer 2022-[id number] 1 [facility] in 0.4 mg 6-02 tablet ity of sublingual 00:00: under the [place] tablet 00 tongue Medical every 5 Branch (five) minutes as needed for Chest pain. nitroglycer 2022-[id number] 1 [facility] in 0.4 mg 6-02 tablet ity of sublingual 00:00: under the [place] tablet 00 tongue Medical every 5 Branch (five) minutes as needed for Chest pain. nitroglycer 2022-[id number] 1 [facility] in 0.4 mg 6-02 tablet ity of sublingual 00:00: under the [place] tablet 00 tongue Medical every 5 Branch (five) minutes as needed for Chest pain. nitroglycer 2022-[id number] 1 [facility] in 0.4 mg 6-02 tablet ity of sublingual 00:00: under the [place] tablet 00 tongue Medical every 5 Branch (five) minutes as needed for Chest pain. nitroglycer 2-[id number] 1 [facility] in 0.4 mg 6-02 tablet ity of sublingual 00:00: under the [place] tablet 00 tongue Medical every 5 Branch (five) minutes as needed for Chest pain. nitroglycer 2-[id number] 1 [facility] in 0.4 mg 6-02 tablet ity of sublingual 00:00: under the [place] tablet 00 tongue Medical every 5 Branch (five) minutes as needed for Chest pain. nitroglycer 2-[id number] 1 [facility] in 0.4 mg 6-02 tablet ity of sublingual 00:00: under the [place] tablet 00 tongue Medical every 5 Branch (five) minutes as needed for Chest pain. nitroglycer 2-[id number] 1 [facility] in 0.4 mg 6-02 tablet ity of sublingual 00:00: under the [place] tablet 00 tongue Medical every 5 Branch (five) minutes as needed for Chest pain. nitroglycer 2022-[id number] 1 [facility] in 0.4 mg 6-02 tablet ity of sublingual 00:00: under the [place] tablet 00 tongue Medical every 5 Branch (five) minutes as needed for Chest pain. nitroglycer 2022-[id number] 1 [facility] in 0.4 mg 6-02 tablet ity of sublingual 00:00: under the [place] tablet 00 tongue Medical every 5 Branch (five) minutes as needed for Chest pain. nitroglycer 2022-[id number] 1 [facility] in 0.4 mg 6-02 tablet ity of sublingual 00:00: under the [place] tablet 00 tongue Medical every 5 Branch (five) minutes as needed for Chest pain. nitroglycer 2022-[id number] 1 [facility] in 0.4 mg 6-02 tablet ity of sublingual 00:00: under the [place] tablet 00 tongue Medical every 5 Branch (five) minutes as needed for Chest pain. nitroglycer 2022-[id number] 1 [facility] in 0.4 mg 6-02 tablet ity of sublingual 00:00: under the [place] tablet 00 tongue Medical every 5 Branch (five) minutes as needed for Chest pain. nitroglycer 2022-[id number] 1 [facility] in 0.4 mg 6-02 tablet ity of sublingual 00:00: under the [place] tablet 00 tongue Medical every 5 Branch (five) minutes as needed for Chest pain. nitroglycer 2022-[id number] 1 [facility] in 0.4 mg 6-02 tablet ity of sublingual 00:00: under the [place] tablet 00 tongue Medical every 5 Branch (five) minutes as needed for Chest pain. nitroglycer 2022-[id number] 1 [facility] in 0.4 mg 6-02 tablet ity of sublingual 00:00: under the [place] tablet 00 tongue Medical every 5 Branch (five) minutes as needed for Chest pain. nitroglycer 2022-[id number] 1 [facility] in 0.4 mg 6-02 tablet ity of sublingual 00:00: under the [place] tablet 00 tongue Medical every 5 Branch (five) minutes as needed for Chest pain. nitroglycer 2022-[id number] 1 [facility] in 0.4 mg 6-02 tablet ity of sublingual 00:00: under the [place] tablet 00 tongue Medical every 5 Branch (five) minutes as needed for Chest pain. nitroglycer 2022-[id number] 1 [facility] in 0.4 mg 6-02 tablet ity of sublingual 00:00: under the [place] tablet 00 tongue Medical every 5 Branch (five) minutes as needed for Chest pain. nitroglycer 2022-[id number] 1 [facility] in 0.4 mg 6-02 tablet ity of sublingual 00:00: under the [place] tablet 00 tongue Medical every 5 Branch (five) minutes as needed for Chest pain. nitroglycer 2022-[id number] 1 [facility] in 0.4 mg 6-02 tablet ity of sublingual 00:00: under the [place] tablet 00 tongue Medical every 5 Branch (five) minutes as needed for Chest pain. nitroglycer 2022-[id number] 1 [facility] in 0.4 mg 6-02 tablet ity of sublingual 00:00: under the [place] tablet 00 tongue Medical every 5 Branch (five) minutes as needed for Chest pain. nitroglycer 2022-[id number] 1 [facility] in 0.4 mg 6-02 tablet ity of sublingual 00:00: under the [place] tablet 00 tongue Medical every 5 Branch (five) minutes as needed for Chest pain. nitroglycer 2022-[id number] 1 [facility] in 0.4 mg 6-02 tablet ity of sublingual 00:00: under the [place] tablet 00 tongue Medical every 5 Branch (five) minutes as needed for Chest pain. nitroglycer 2022-[id number] 1 [facility] in 0.4 mg 6-02 tablet ity of sublingual 00:00: under the [place] tablet 00 tongue Medical every 5 Branch (five) minutes as needed for Chest pain. nitroglycer 2022-[id number] 1 [facility] in 0.4 mg 6-02 tablet ity of sublingual 00:00: under the [place] tablet 00 tongue Medical every 5 Branch (five) minutes as needed for Chest pain. nitroglycer 2022-[id number] 1 [facility] in 0.4 mg 6-02 tablet ity of sublingual 00:00: under the [place] tablet 00 tongue Medical every 5 Branch (five) minutes as needed for Chest pain. nitroglycer 2022-[id number] 1 [facility] in 0.4 mg 6-02 tablet ity of sublingual 00:00: under the [place] tablet 00 tongue Medical every 5 Branch (five) minutes as needed for Chest pain. nitroglycer 2022-[id number] 1 [facility] in 0.4 mg 6-02 tablet ity of sublingual 00:00: under the [place] tablet 00 tongue Medical every 5 Branch (five) minutes as needed for Chest pain. nitroglycer 2022-[id number] 1 [facility] in 0.4 mg 6-02 tablet ity of sublingual 00:00: under the [place] tablet 00 tongue Medical every 5 Branch (five) minutes as needed for Chest pain. nitroglycer 2022-[id number] 1 [facility] in 0.4 mg 6-02 tablet ity of sublingual 00:00: under the [place] tablet 00 tongue Medical every 5 Branch (five) minutes as needed for Chest pain. nitroglycer 2022-[id number] 1 [facility] in 0.4 mg 6-02 tablet ity of sublingual 00:00: under the [place] tablet 00 tongue Medical every 5 Branch (five) minutes as needed for Chest pain. nitroglycer 2022-[id number] 1 [facility] in 0.4 mg 6-02 tablet ity of sublingual 00:00: under the [place] tablet 00 tongue Medical every 5 Branch (five) minutes as needed for Chest pain. nitroglycer 2022-[id number] 1 [facility] in 0.4 mg 6-02 tablet ity of sublingual 00:00: under the [place] tablet 00 tongue Medical every 5 Branch (five) minutes as needed for Chest pain. nitroglycer 2022-[id number] 1 [facility] in 0.4 mg 6-02 tablet ity of sublingual 00:00: under the [place] tablet 00 tongue Medical every 5 Branch (five) minutes as needed for Chest pain. nitroglycer 2022-[id number] 1 [facility] in 0.4 mg 6-02 tablet ity of sublingual 00:00: under the [place] tablet 00 tongue Medical every 5 Branch (five) minutes as needed for Chest pain. nitroglycer 2022-[id number] 1 [facility] in 0.4 mg 6-02 tablet ity of sublingual 00:00: under the [place] tablet 00 tongue Medical every 5 Branch (five) minutes as needed for Chest pain. nitroglycer 2022-[id number] 1 [facility] in 0.4 mg 6-02 tablet ity of sublingual 00:00: under the [place] tablet 00 tongue Medical every 5 Branch (five) minutes as needed for Chest pain. nitroglycer 2022-[id number] 1 [facility] in 0.4 mg 6-02 tablet ity of sublingual 00:00: under the [place] tablet 00 tongue Medical every 5 Branch (five) minutes as needed for Chest pain. nitroglycer 2022-[id number] 1 [facility] in 0.4 mg 6-02 tablet ity of sublingual 00:00: under the [place] tablet 00 tongue Medical every 5 Branch (five) minutes as needed for Chest pain. nitroglycer 2022-[id number] 1 [facility] in 0.4 mg 6-02 tablet ity of sublingual 00:00: under the [place] tablet 00 tongue Medical every 5 Branch (five) minutes as needed for Chest pain. nitroglycer 2-[id number] 1 [facility] in 0.4 mg 6-02 tablet ity of sublingual 00:00: under the [place] tablet 00 tongue Medical every 5 Branch (five) minutes as needed for Chest pain. nitroglycer 2-[id number] 1 [facility] in 0.4 mg 6-02 tablet ity of sublingual 00:00: under the [place] tablet 00 tongue Medical every 5 Branch (five) minutes as needed for Chest pain. nitroglycer 2022-[id number] 1 [facility] in 0.4 mg 6-02 tablet ity of sublingual 00:00: under the [place] tablet 00 tongue Medical every 5 Branch (five) minutes as needed for Chest pain. nitroglycer 2022-[id number] 1 [facility] in 0.4 mg 6-02 tablet ity of sublingual 00:00: under the [place] tablet 00 tongue Medical every 5 Branch (five) minutes as needed for Chest pain. nitroglycer 2022-[id number] 1 [facility] in 0.4 mg 6-02 tablet ity of sublingual 00:00: under the [place] tablet 00 tongue Medical every 5 Branch (five) minutes as needed for Chest pain. nitroglycer 2022-[id number] 1 [facility] in 0.4 mg 6-02 tablet ity of sublingual 00:00: under the [place] tablet 00 tongue Medical every 5 Branch (five) minutes as needed for Chest pain. nitroglycer 2022-[id number] 1 [facility] in 0.4 mg 6-02 tablet ity of sublingual 00:00: under the [place] tablet 00 tongue Medical every 5 Branch (five) minutes as needed for Chest pain. nitroglycer 2022-[id number] 1 [facility] in 0.4 mg 6-02 tablet ity of sublingual 00:00: under the [place] tablet 00 tongue Medical every 5 Branch (five) minutes as needed for Chest pain. nitroglycer 2022-[id number] 1 [facility] in 0.4 mg 6-02 tablet ity of sublingual 00:00: under the [place] tablet 00 tongue Medical every 5 Branch (five) minutes as needed for Chest pain. nitroglycer 2022-[id number] 1 [facility] in 0.4 mg 6-02 tablet ity of sublingual 00:00: under the [place] tablet 00 tongue Medical every 5 Branch (five) minutes as needed for Chest pain. nitroglycer 2022-[id number] 1 [facility] in 0.4 mg 6-02 tablet ity of sublingual 00:00: under the [place] tablet 00 tongue Medical every 5 Branch (five) minutes as needed for Chest pain. nitroglycer 2022-[id number] 1 [facility] in 0.4 mg 6-02 tablet ity of sublingual 00:00: under the [place] tablet 00 tongue Medical every 5 Branch (five) minutes as needed for Chest pain. nitroglycer 2022-[id number] 1 [facility] in 0.4 mg 6-02 tablet ity of sublingual 00:00: under the [place] tablet 00 tongue Medical every 5 Branch (five) minutes as needed for Chest pain. nitroglycer 2022-[id number] 1 [facility] in 0.4 mg 6-02 tablet ity of sublingual 00:00: under the [place] tablet 00 tongue Medical every 5 Branch (five) minutes as needed for Chest pain. nitroglycer 2022-[id number] 1 [facility] in 0.4 mg 6-02 tablet ity of sublingual 00:00: under the [place] tablet 00 tongue Medical every 5 Branch (five) minutes as needed for Chest pain. nitroglycer 2022-[id number] 1 [facility] in 0.4 mg 6-02 tablet ity of sublingual 00:00: under the [place] tablet 00 tongue Medical every 5 Branch (five) minutes as needed for Chest pain. nitroglycer 2022-[id number] 1 [facility] in 0.4 mg 6-02 tablet ity of sublingual 00:00: under the [place] tablet 00 tongue Medical every 5 Branch (five) minutes as needed for Chest pain. nitroglycer 2022-[id number] 1 [facility] in 0.4 mg 6-02 tablet ity of sublingual 00:00: under the [place] tablet 00 tongue Medical every 5 Branch (five) minutes as needed for Chest pain. nitroglycer 2022-[id number] 1 [facility] in 0.4 mg 6-02 tablet ity of sublingual 00:00: under the [place] tablet 00 tongue Medical every 5 Branch (five) minutes as needed for Chest pain. nitroglycer 2022-[id number] 1 [facility] in 0.4 mg 6-02 tablet ity of sublingual 00:00: under the [place] tablet 00 tongue Medical every 5 Branch (five) minutes as needed for Chest pain. nitroglycer 2022-[id number] 1 [facility] in 0.4 mg 6-02 tablet ity of sublingual 00:00: under the [place] tablet 00 tongue Medical every 5 Branch (five) minutes as needed for Chest pain. nitroglycer 2022-[id number] 1 [facility] in 0.4 mg 6-02 tablet ity of sublingual 00:00: under the [place] tablet 00 tongue Medical every 5 Branch (five) minutes as needed for Chest pain. nitroglycer 2022-[id number] 1 [facility] in 0.4 mg 6-02 tablet ity of sublingual 00:00: under the [place] tablet 00 tongue Medical every 5 Branch (five) minutes as needed for Chest pain. nitroglycer 2022-[id number] 1 [facility] in 0.4 mg 6-02 tablet ity of sublingual 00:00: under the [place] tablet 00 tongue Medical every 5 Branch (five) minutes as needed for Chest pain. nitroglycer 2022-[id number] 1 [facility] in 0.4 mg 6-02 tablet ity of sublingual 00:00: under the [place] tablet 00 tongue Medical every 5 Branch (five) minutes as needed for Chest pain. nitroglycer 2022-[id number] 1 [facility] in 0.4 mg 6-02 tablet ity of sublingual 00:00: under the [place] tablet 00 tongue Medical every 5 Branch (five) minutes as needed for Chest pain. nitroglycer 2022-[id number] 1 [facility] in 0.4 mg 6-02 tablet ity of sublingual 00:00: under the [place] tablet 00 tongue Medical every 5 Branch (five) minutes as needed for Chest pain. nitroglycer 2022-[id number] 1 [facility] in 0.4 mg 6-02 tablet ity of sublingual 00:00: under the [place] tablet 00 tongue Medical every 5 Branch (five) minutes as needed for Chest pain. nitroglycer 2022-[id number] 1 [facility] in 0.4 mg 6-02 tablet ity of sublingual 00:00: under the [place] tablet 00 tongue Medical every 5 Branch (five) minutes as needed for Chest pain. nitroglycer 2022-[id number] 1 [facility] in 0.4 mg 6-02 tablet ity of sublingual 00:00: under the [place] tablet 00 tongue Medical every 5 Branch (five) minutes as needed for Chest pain. nitroglycer 2022-[id number] 1 [facility] in 0.4 mg 6-02 tablet ity of sublingual 00:00: under the [place] tablet 00 tongue Medical every 5 Branch (five) minutes as needed for Chest pain. nitroglycer 2021-[id number] 1 [facility] in 0.4 mg 6-02 tablet ity of sublingual 00:00: under the [place] tablet 00 tongue Medical every 5 Branch (five) minutes as needed for Chest pain. nitroglycer 2021-[id number] 1 [facility] in 0.4 mg 6-02 tablet ity of sublingual 00:00: under the [place] tablet 00 tongue Medical every 5 Branch (five) minutes as needed for Chest pain. nitroglycer 2021-[id number] 1 [facility] in 0.4 mg 6-02 tablet ity of sublingual 00:00: under the [place] tablet 00 tongue Medical every 5 Branch (five) minutes as needed for Chest pain. nitroglycer 2021-[id number] 1 [facility] in 0.4 mg 6-02 tablet ity of sublingual 00:00: under the [place] tablet 00 tongue Medical every 5 Branch (five) minutes as needed for Chest pain. nitroglycer 2021-[id number] 1 [facility] in 0.4 mg 6-02 tablet ity of sublingual 00:00: under the [place] tablet 00 tongue Medical every 5 Branch (five) minutes as needed for Chest pain. nitroglycer 2021-[id number] 1 [facility] in 0.4 mg 6-02 tablet ity of sublingual 00:00: under the [place] tablet 00 tongue Medical every 5 Branch (five) minutes as needed for Chest pain. nitroglycer 2-[id number] 1 [facility] in 0.4 mg 6-02 tablet ity of sublingual 00:00: under the [place] tablet 00 tongue Medical every 5 Branch (five) minutes as needed for Chest pain. nitroglycer 2-[id number] 1 [facility] in 0.4 mg 6-02 tablet ity of sublingual 00:00: under the [place] tablet 00 tongue Medical every 5 Branch (five) minutes as needed for Chest pain. HYDROcodone 2021- No 1{tbl} Take 1 [facility] -acetaminop 5-11 05-10 tablet by [facility] ([employer]) 01:57: [place] 10-325 mg 02 :00 every 6 Medical tablet (six) Branch hours as needed. HYDROcodone 2021- No 1{tbl} Take 1 [facility] -acetaminop 5-11 05-10 tablet by [facility] ([facility]) 01:57: 00:00 [place] 10-325 mg 02 :00 every 6 Medical tablet (six) Branch hours as needed. HYDROcodone 2021- No 1{tbl} Take 1 [facility] -acetaminop 5-11 05-10 tablet by [facility] ([facility]) 01:57: 00:00 [place] 10-325 mg 02 :00 every 6 Medical tablet (six) Branch hours as needed. HYDROcodone 2021- No 1{tbl} Take 1 [facility] -acetaminop 5-11 05-10 tablet by [facility] ([facility]) 01:57: 00:00 [place] 10-325 mg 02 :00 every 6 Medical tablet (six) Branch hours as needed. fluticasone 0 Yes [id number] 1{puff} Inhale 1 [facility] propion-li 5-11 Puff every it y of meteroL 00:00: 12 [place] (ADVAIR 00 (twelve) Medical DISKUS) hours. Branch 250-50 mcg/dose inhalation disk fluticasone 2021-0 Yes [id number] 1{puff} Inhale 1 [facility] propion-li 5-11 Puff every it y of meteroL 00:00: 12 [place] (ADVAIR 00 (twelve) Medical DISKUS) hours. Branch 250-50 mcg/dose inhalation disk fluticasone 2021-0 Yes [id number] 1{puff} Inhale 1 [facility] propion-li 5-11 Puff every it y of meteroL 00:00: 12 [place] (ADVAIR 00 (twelve) Medical DISKUS) hours. Branch 250-50 mcg/dose inhalation disk fluticasone 2021-0 Yes [id number] 1{puff} Inhale 1 [facility] propion-li 5-11 Puff every it y of meteroL 00:00: 12 [place] (ADVAIR 00 (twelve) Medical DISKUS) hours. Branch 250-50 mcg/dose inhalation disk fluticasone 2022-0 Yes [id number] 1{puff} Inhale 1 [facility] propion-li 5-11 Puff every it y of meteroL 00:00: 12 [place] (ADVAIR 00 (twelve) Medical DISKUS) hours. Branch 250-50 mcg/dose inhalation disk fluticasone 2-0 Yes [id number] 1{puff} Inhale 1 [facility] propion-li 5-11 Puff every it y of meteroL 00:00: 12 [place] (ADVAIR 00 (twelve) Medical DISKUS) hours. Branch 250-50 mcg/dose inhalation disk fluticasone 2-0 Yes [id number] 1{puff} Inhale 1 [facility] propion-li 5-11 Puff every it y of meteroL 00:00: 12 [place] (ADVAIR (twelve) Medical DISKUS) hours. Branch 250-50 mcg/dose inhalation disk fluticasone 2-0 Yes [id number] 1{puff} Inhale 1 [facility] propion-li 5-11 Puff every it y of meteroL 00:00: 12 [place] (ADVAIR (twelve) Medical DISKUS) hours. Branch 250-50 mcg/dose inhalation disk fluticasone 2-0 Yes [id number] 1{puff} Inhale 1 [facility] propion-li 5-11 Puff every it y of meteroL 00:00: 12 [place] (ADVAIR (twelve) Medical DISKUS) hours. Branch 250-50 mcg/dose inhalation disk fluticasone 2-0 Yes [id number] 1{puff} Inhale 1 [facility] propion-li 5-11 Puff every it y of meteroL 00:00: 12 [place] (ADVAIR 00 (twelve) Medical DISKUS) hours. Branch 250-50 mcg/dose inhalation disk fluticasone 2022-0 Yes [id number] 1{puff} Inhale 1 [facility] propion-li 5-11 Puff every it y of meteroL 00:00: 12 [place] (ADVAIR 00 (twelve) Medical DISKUS) hours. Branch 250-50 mcg/dose inhalation disk fluticasone 2-0 Yes [id number] 1{puff} Inhale 1 [facility] propion-li 5-11 Puff every it y of meteroL 00:00: 12 [place] (ADVAIR ) Medical DISKUS) hours. Branch 250-50 mcg/dose inhalation disk fluticasone 2-0 Yes [id number] 1{puff} Inhale 1 [facility] propion-li 5-11 Puff every it y of meteroL 00:00: 12 [place] (ADVAIR ) Medical DISKUS) hours. Branch 250-50 mcg/dose inhalation disk fluticasone 2-0 Yes [id number] 1{puff} Inhale 1 [facility] propion-li 5-11 Puff every it y of meteroL 00:00: 12 [place] (ADVAIR ) Medical DISKUS) hours. Branch 250-50 mcg/dose inhalation disk fluticasone 2-0 Yes [id number] 1{puff} Inhale 1 [facility] propion-li 5-11 Puff every it y of meteroL 00:00: 12 [place] (ADVAIR ) Medical DISKUS) hours. Branch 250-50 mcg/dose inhalation disk fluticasone 2-0 Yes [id number] 1{puff} Inhale 1 [facility] propion-li 5-11 Puff every it y of meteroL 00:00: 12 [place] (ADVAIR ) Medical DISKUS) hours. Branch 250-50 mcg/dose inhalation disk fluticasone 2021-0 Yes [id number] 1{puff} Inhale 1 [facility] propion-li 5-11 Puff every it y of meteroL 00:00: 12 [place] (ADVAIR ) Medical DISKUS) hours. Branch 250-50 mcg/dose inhalation disk fluticasone 2-0 Yes [id number] 1{puff} Inhale 1 [facility] propion-li 5-11 Puff every it y of meteroL 00:00: 12 [place] (ADVAIR ) Medical DISKUS) hours. Branch 250-50 mcg/dose inhalation disk fluticasone 2-0 Yes [id number] 1{puff} Inhale 1 [facility] propion-li 5-11 Puff every it y of meteroL 00:00: 12 [place] (ADVAIR ) Medical DISKUS) hours. Branch 250-50 mcg/dose inhalation disk fluticasone 2022-0 Yes [id number] 1{puff} Inhale 1 [facility] propion-li 5-11 Puff every it y of meteroL 00:00: 12 [place] (ADVAIR (twelve) Medical DISKUS) hours. Branch 250-50 mcg/dose inhalation disk fluticasone 2022-0 Yes [id number] 1{puff} Inhale 1 [facility] propion-li 5-11 Puff every it y of meteroL 00:00: 12 [place] (ADVAIR (twelve) Medical DISKUS) hours. Branch 250-50 mcg/dose inhalation disk fluticasone 2022-0 Yes [id number] 1{puff} Inhale 1 [facility] propion-li 5-11 Puff every it y of meteroL 00:00: 12 [place] (ADVAIR (twelve) Medical DISKUS) hours. Branch 250-50 mcg/dose inhalation disk fluticasone 2022-0 Yes [id number] 1{puff} Inhale 1 [facility] propion-li 5-11 Puff every it y of meteroL 00:00: 12 [place] (ADVAIR (twelve) Medical DISKUS) hours. Branch 250-50 mcg/dose inhalation disk fluticasone 2022-0 Yes [id number] 1{puff} Inhale 1 [facility] propion-li 5-11 Puff every it y of meteroL 00:00: 12 [place] (ADVAIR (twelve) Medical DISKUS) hours. Branch 250-50 mcg/dose inhalation disk fluticasone 2-0 Yes [id number] 1{puff} Inhale 1 [facility] propion-li 5-11 Puff every it y of meteroL 00:00: 12 [place] (ADVAIR (twelve) Medical DISKUS) hours. Branch 250-50 mcg/dose inhalation disk fluticasone 2022-0 Yes [id number] 1{puff} Inhale 1 [facility] propion-li 5-11 Puff every it y of meteroL 00:00: 12 [place] (ADVAIR (twelve) Medical DISKUS) hours. Branch 250-50 mcg/dose inhalation disk fluticasone 2022-0 Yes [id number] 1{puff} Inhale 1 [facility] propion-li 5-11 Puff every it y of meteroL 00:00: 12 [place] (ADVAIR 00 (twelve) Medical DISKUS) hours. Branch 250-50 mcg/dose inhalation disk fluticasone 2022-0 Yes [id number] 1{puff} Inhale 1 [facility] propion-li 5-11 Puff every it y of meteroL 00:00: 12 [place] (ADVAIR 00 (twelve) Medical DISKUS) hours. Branch 250-50 mcg/dose inhalation disk fluticasone 2022-0 Yes [id number] 1{puff} Inhale 1 [facility] propion-li 5-11 Puff every it y of meteroL 00:00: 12 [place] (ADVAIR 00 (twelve) Medical DISKUS) hours. Branch 250-50 mcg/dose inhalation disk fluticasone 2-0 Yes [id number] 1{puff} Inhale 1 [facility] propion-li 5-11 Puff every it y of meteroL 00:00: 12 [place] (ADVAIR 00 (twelve) Medical DISKUS) hours. Branch 250-50 mcg/dose inhalation disk fluticasone 2-0 Yes [id number] 1{puff} Inhale 1 [facility] propion-li 5-11 Puff every it y of meteroL 00:00: 12 [place] (ADVAIR 00 (twelve) Medical DISKUS) hours. Branch 250-50 mcg/dose inhalation disk fluticasone 2-0 Yes [id number] 1{puff} Inhale 1 [facility] propion-li 5-11 Puff every it y of meteroL 00:00: 12 [place] (ADVAIR 00 (twelve) Medical DISKUS) hours. Branch 250-50 mcg/dose inhalation disk fluticasone 2-0 Yes [id number] 1{puff} Inhale 1 [facility] propion-li 5-11 Puff every it y of meteroL 00:00: 12 [place] (ADVAIR 00 (twelve) Medical DISKUS) hours. Branch 250-50 mcg/dose inhalation disk fluticasone 2022-0 Yes [id number] 1{puff} Inhale 1 [facility] propion-li 5-11 Puff every it y of meteroL 00:00: 12 [place] (ADVAIR 00 (twelve) Medical DISKUS) hours. Branch 250-50 mcg/dose inhalation disk fluticasone 2-0 Yes [id number] 1{puff} Inhale 1 [facility] propion-li 5-11 Puff every it y of meteroL 00:00: 12 [place] (ADVAIR ) Medical DISKUS) hours. Branch 250-50 mcg/dose inhalation disk fluticasone 2-0 Yes [id number] 1{puff} Inhale 1 [facility] propion-li 5-11 Puff every it y of meteroL 00:00: 12 [place] (ADVAIR ) Medical DISKUS) hours. Branch 250-50 mcg/dose inhalation disk fluticasone 2-0 Yes [id number] 1{puff} Inhale 1 [facility] propion-li 5-11 Puff every it y of meteroL 00:00: 12 [place] (ADVAIR ) Medical DISKUS) hours. Branch 250-50 mcg/dose inhalation disk fluticasone 2-0 Yes [id number] 1{puff} Inhale 1 [facility] propion-li 5-11 Puff every it y of meteroL 00:00: 12 [place] (ADVAIR ) Medical DISKUS) hours. Branch 250-50 mcg/dose inhalation disk fluticasone 2021-0 Yes [id number] 1{puff} Inhale 1 [facility] propion-li 5-11 Puff every it y of meteroL 00:00: 12 [place] (ADVAIR ) Medical DISKUS) hours. Branch 250-50 mcg/dose inhalation disk fluticasone 2-0 Yes [id number] 1{puff} Inhale 1 [facility] propion-li 5-11 Puff every it y of meteroL 00:00: 12 [place] (ADVAIR ) Medical DISKUS) hours. Branch 250-50 mcg/dose inhalation disk fluticasone 2-0 Yes [id number] 1{puff} Inhale 1 [facility] propion-li 5-11 Puff every it y of meteroL 00:00: 12 [place] (ADVAIR ) Medical DISKUS) hours. Branch 250-50 mcg/dose inhalation disk fluticasone 2-0 Yes [id number] 1{puff} Inhale 1 [facility] propion-li 5-11 Puff every it y of meteroL 00:00: 12 [place] (ADVAIR ) Medical DISKUS) hours. Branch 250-50 mcg/dose inhalation disk fluticasone 2022-0 Yes [id number] 1{puff} Inhale 1 [facility] propion-li 5-11 Puff every it y of meteroL 00:00: 12 [place] (ADVAIR 00 (twelve) Medical DISKUS) hours. Branch 250-50 mcg/dose inhalation disk fluticasone 2022-0 Yes [id number] 1{puff} Inhale 1 [facility] propion-li 5-11 Puff every it y of meteroL 00:00: 12 [place] (ADVAIR 00 (twelve) Medical DISKUS) hours. Branch 250-50 mcg/dose inhalation disk fluticasone 2022-0 Yes [id number] 1{puff} Inhale 1 [facility] propion-li 5-11 Puff every it y of meteroL 00:00: 12 [place] (ADVAIR 00 (twelve) Medical DISKUS) hours. Branch 250-50 mcg/dose inhalation disk fluticasone 2022-0 Yes [id number] 1{puff} Inhale 1 [facility] propion-li 5-11 Puff every it y of meteroL 00:00: 12 [place] (ADVAIR 00 (twelve) Medical DISKUS) hours. Branch 250-50 mcg/dose inhalation disk fluticasone 2022-0 Yes [id number] 1{puff} Inhale 1 [facility] propion-li 5-11 Puff every it y of meteroL 00:00: 12 [place] (ADVAIR 00 (twelve) Medical DISKUS) hours. Branch 250-50 mcg/dose inhalation disk fluticasone 2022-0 3- No [id number] 1{puff} Inhale 1 [facility] propion-li 5-11 04-18 Puff every i ty of meteroL 00:00: 00:00 12 [place] (ADVAIR 00 :00 (twelve) Medical DISKUS) hours. Branch 250-50 mcg/dose inhalation disk fluticasone 2022-0 3- No [id number] 1{puff} Inhale 1 [facility] propion-li 5-11 04-18 Puff every i ty of meteroL 00:00: 00:00 12 [place] (ADVAIR 00 :00 (twelve) Medical DISKUS) hours. Branch 250-50 mcg/dose inhalation disk fluticasone 2022-0 3- No [id number] 1{puff} Inhale 1 [facility] propion-li 5-11 04-18 Puff every i ty of meteroL 00:00: 00:00 12 [place] (ADVAIR 00 :00 (twelve) Medical DISKUS) hours. Branch 250-50 mcg/dose inhalation disk apixaban 5 2021- No [id number] 5mg Take 1 Univ ers mg tablet - 05-10 tablet by ity of 00:00: 00:00 mouth 2 [place] 00 :00 (two) Medical times Branch daily for 90 days. Indication s: a clot in the lung clopidogreL 2021- No [id number] 75mg Take 1 [facility] 75 mg 2-25 05-10 tablet by ity of tablet 00:00: 00:00 mouth [place] 00 :00 daily. Medical Branch levoFLOXaci 2021- No [id number] 500mg Take 1 [facility] n 500 mg 2-25 -24 tablet by ity o f tablet 00:00: 00:00 mouth [place] 00 :00 every 24 Medical (twenty-fo Branch ur) hours. metFORMIN 2021- No [id number] 500mg Take 1 [facility] 500 mg - 05-10 tablet by ity of tablet 00:00: 00:00 mouth 2 [place] 00 :00 (two) Medical times Branch daily with meals. metFORMIN 2021- No [id number] 500mg Take 1 [facility] 500 mg 1-07 05-10 tablet by ity of tablet 00:00: 00:00 mouth 2 [place] 00 :00 (two) Medical times Branch daily with meals. metFORMIN 2021- No [id number] 500mg Take 1 [facility] 500 mg 1-07 05-10 tablet by ity of tablet 00:00: 00:00 mouth 2 [place] 00 :00 (two) Medical times Branch daily with meals. guaiFENesin 2020-05- No [id number] 200mg Take 10 mL [facility] 100 mg/5 mL 07-01 05-10 by mouth ity of solution 00:00: 00:00 every 4 [place] 00 :00 (four) Medical hours as Branch needed for Cough. guaiFENesin 2020-05- No [id number] 200mg Take 10 mL [facility] 100 mg/5 mL 07-01 05-10 by mouth ity of solution 00:00: 00:00 every 4 [place] 00 :00 (four) Medical hours as Branch needed for Cough. guaiFENesin 2020-05- No [id number] 200mg Take 10 mL [facility] 100 mg/5 mL 2-27 05-10 by mouth ity of solution 00:00: 00:00 every 4 [place] 00 :00 (four) Medical hours as Branch needed for Cough. predniSONE 2020-05- No [id number] 40mg Take 2 [facility] 20 mg 2-27 03-24 tablets by ity of tablet 00:00: 00:00 mouth [place] 00 :00 daily. Medical Branch predniSONE 2020-05- No [id number] 40mg Take 2 [facility] 20 mg 2-27 03-24 tablets by ity of tablet 00:00: 00:00 mouth [place] 00 :00 daily. Medical Branch predniSONE 2020-05- No [id number] 40mg Take 2 [facility] 20 mg 2-27 03-24 tablets by ity of tablet 00:00: 00:00 mouth [place] 00 :00 daily. Medical Branch levoFLOXaci 2020-05- No [id number] 500mg Take 1 [facility] n 500 mg 2-27 02-25 tablet by ity o f tablet 00:00: 00:00 mouth [place] 00 :00 every 24 Medical (twenty-fo Branch ur) hours. levoFLOXaci 2020-05- No [id number] 500mg Take 1 [facility] n 500 mg 2-27 02-25 tablet by ity o f tablet 00:00: 00:00 mouth [place] 00 :00 every 24 Medical (twenty-fo Branch ur) hours. metFORMIN 2020-05- No [id number] 500mg Take 1 [facility] 500 mg 130 -07 tablet by ity of tablet 00:00: 00:00 mouth 2 [place] 00 :00 (two) Medical times Branch daily with meals. POTASSIUM 2020-05- No [id number] 10meq TAKE 1 [facility] CHLORIDE 10 1-29 05-10 TABLET BY it y of mEq CR 00:00: 00:00 MOUTH [place] tablet 00 :00 DAILY Medical Branch POTASSIUM 2020-05- No [id number] 10meq TAKE 1 [facility] CHLORIDE 10 -29 05-10 TABLET BY it y of mEq CR 00:00: 00:00 MOUTH [place] tablet 00 :00 DAILY Medical Branch POTASSIUM 2020-05- No [id number] 10meq TAKE 1 [facility] CHLORIDE 10 1-29 05-10 TABLET BY it y of mEq CR 00:00: 00:00 MOUTH [place] tablet 00 :00 DAILY Medical Branch POTASSIUM 2020-05- No [id number] 10meq TAKE 1 [facility] CHLORIDE 10 1-29 05-10 TABLET BY it y of mEq CR 00:00: 00:00 MOUTH [place] tablet 00 :00 DAILY Medical Branch CODEINE-GUA 2020-05- No [id number] TAKE 10 ML [facility] IFENESIN 1-16 05-10 BY MOUTH ity of 10-100 mg/5 00:00: 00:00 EVERY 6 [place] mL oral 00 :00 HOURS FOR Medical solution UP TO 7 Branch DAYS NEEDED FOR COUGH CODEINE-GUA 2020-05- No [id number] TAKE 10 ML [facility] IFENESIN 1-16 05-10 BY MOUTH ity of 10-100 mg/5 00:00: 00:00 EVERY 6 [place] mL oral 00 :00 HOURS FOR Medical solution UP TO 7 Branch DAYS NEEDED FOR COUGH CODEINE-GUA 2020-05- No [id number] TAKE 10 ML [facility] IFENESIN 1-16 05-10 BY MOUTH ity of 10-100 mg/5 00:00: 00:00 EVERY 6 [place] mL oral 00 :00 HOURS FOR Medical solution UP TO 7 Branch DAYS NEEDED FOR COUGH CODEINE-GUA 2020-05- No [id number] TAKE 10 ML [facility] IFENESIN 1-16 05-10 BY MOUTH ity of 10-100 mg/5 00:00: 00:00 EVERY 6 [place] mL oral 00 :00 HOURS FOR Medical solution UP TO 7 Branch DAYS NEEDED FOR COUGH atorvastati 2020-05- No [id number] 40mg Take 1 [facility] n 40 mg 0-31 05-10 tablet by ity of tablet 00:00: 00:00 mouth at [place] 00 :00 bedtime. Medical Branch spironolact 2020-05- No [id number] 25mg Take 1 [facility] one 25 mg 0-31 05-10 tablet by ity of tablet 00:00: 00:00 mouth [place] 00 :00 daily. Medical Branch lisinopriL 2020-05- No [id number] 20mg Take 1 [facility] 20 mg 0-31 05-10 tablet by ity of tablet 00:00: 00:00 mouth [place] 00 :00 daily. Medical Branch amitriptyli 2020-05- No [id number] 100mg Take 1 [facility] ne 100 mg 0-31 05-10 tablet by ity of tablet 00:00: 00:00 mouth at [place] 00 :00 bedtime. Medical Branch atorvastati 2020-05- No [id number] 40mg Take 1 [facility] n 40 mg 0-31 05-10 tablet by ity of tablet 00:00: 00:00 mouth at [place] 00 :00 bedtime. Medical Branch spironolact 2020-05- No [id number] 25mg Take 1 [facility] one 25 mg 0-31 05-10 tablet by ity of tablet 00:00: 00:00 mouth [place] 00 :00 daily. Medical Branch lisinopriL 2020-05- No [id number] 20mg Take 1 [facility] 20 mg 0-31 05-10 tablet by ity of tablet 00:00: 00:00 mouth [place] 00 :00 daily. Medical Branch amitriptyli 2020-05- No [id number] 100mg Take 1 [facility] ne 100 mg 0-31 05-10 tablet by ity of tablet 00:00: 00:00 mouth at [place] 00 :00 bedtime. Medical Branch atorvastati 2020-05- No [id number] 40mg Take 1 [facility] n 40 mg 0-31 05-10 tablet by ity of tablet 00:00: 00:00 mouth at [place] 00 :00 bedtime. Medical Branch spironolact 2020-05- No [id number] 25mg Take 1 [facility] one 25 mg 0-31 05-10 tablet by ity of tablet 00:00: 00:00 mouth [place] 00 :00 daily. Medical Branch lisinopriL 2020-05- No [id number] 20mg Take 1 [facility] 20 mg 0-31 05-10 tablet by ity of tablet 00:00: 00:00 mouth [place] 00 :00 daily. Medical Branch amitriptyli 2020-05- No [id number] 100mg Take 1 [facility] ne 100 mg 0-31 05-10 tablet by ity of tablet 00:00: 00:00 mouth at [place] 00 :00 bedtime. Medical Branch atorvastati 2020-05- No [id number] 40mg Take 1 [facility] n 40 mg 0-31 05-10 tablet by ity of tablet 00:00: 00:00 mouth at [place] 00 :00 bedtime. Medical Branch spironolact 2020-05- No [id number] 25mg Take 1 [facility] one 25 mg 0-31 05-10 tablet by ity of tablet 00:00: 00:00 mouth [place] 00 :00 daily. Medical Branch lisinopriL 2020-05- No [id number] 20mg Take 1 [facility] 20 mg 0-31 05-10 tablet by ity of tablet 00:00: 00:00 mouth [place] 00 :00 daily. Medical Branch amitriptyli 2020-05- No [id number] 100mg Take 1 [facility] ne 100 mg 0-31 05-10 tablet by ity of tablet 00:00: 00:00 mouth at [place] 00 :00 bedtime. Medical Branch furosemide 2020-05- No [id number] 60mg Take 3 [facility] 20 mg 0-31 03-25 tablets by ity of tablet 00:00: 00:00 mouth [place] 00 :00 every Medical morning Branch and evening. carvediloL 2020-05- No [id number] 6.25mg Take 1 [facility] 6.25 mg 0-31 03-25 tablet by ity of tablet 00:00: 00:00 mouth 2 [place] 00 :00 (two) Medical times Branch daily with meals. furosemide 2020-05- No [id number] 60mg Take 3 [facility] 20 mg 0-31 03-25 tablets by ity of tablet 00:00: 00:00 mouth [place] 00 :00 every Medical morning Branch and evening. carvediloL 2020-05- No [id number] 6.25mg Take 1 [facility] 6.25 mg 0-31 03-25 tablet by ity of tablet 00:00: 00:00 mouth 2 [place] 00 :00 (two) Medical times Branch daily with meals. furosemide 2020-05- No [id number] 60mg Take 3 [facility] 20 mg 0-31 03-25 tablets by ity of tablet 00:00: 00:00 mouth [place] 00 :00 every Medical morning Branch and evening. carvediloL 2020-05- No [id number] 6.25mg Take 1 [facility] 6.25 mg 0-31 03-25 tablet by ity of tablet 00:00: 00:00 mouth 2 [place] 00 :00 (two) Medical times Branch daily with meals. furosemide 2020-05- No [id number] 60mg Take 3 [facility] 20 mg 0-31 03-25 tablets by ity of tablet 00:00: 00:00 mouth [place] 00 :00 every Medical morning Branch and evening. carvediloL 2020-05- No [id number] 6.25mg Take 1 [facility] 6.25 mg 0-31 03-25 tablet by ity of tablet 00:00: 00:00 mouth 2 [place] 00 :00 (two) Medical times Branch daily with meals. fluticasone 2020-05- No [id number] 1{puff} Inhale 1 [facility] propion-li 0-22 05-10 Puff every i ty of meteroL 00:00: 00:[address] [place] [address] (ADVAIR 00 :00 (twelve) Medical DISKUS) hours. Branch 250-50 mcg/dose inhalation disk budesonide 2020-05- No [id number] .5mg Inhale 2 [facility] 0.5 mg/2 mL 0-22 05-10 mL 2 (two) i ty of nebulizer 00:00: 00:00 times [place] solution 00 :00 daily. Medical Branch fluticasone 2020-05- No [id number] 1{puff} Inhale 1 [facility] propion-li 0-22 05-10 Puff every i ty of meteroL 00:00: 00:00 12 [place] (ADVAIR 00 :00 (twelve) Medical DISKUS) hours. Branch 250-50 mcg/dose inhalation disk budesonide 2020-05- No [id number] .5mg Inhale 2 [facility] 0.5 mg/2 mL 0-22 05-10 mL 2 (two) i ty of nebulizer 00:00: 00:00 times [place] solution 00 :00 daily. Medical Branch fluticasone 2020-05- No [id number] 1{puff} Inhale 1 [facility] propion-li 0-22 05-10 Puff every i ty of meteroL 00:00: 00:00 12 [place] (ADVAIR 00 :00 (twelve) Medical DISKUS) hours. Branch 250-50 mcg/dose inhalation disk budesonide 2020-05- No [id number] .5mg Inhale 2 [facility] 0.5 mg/2 mL 0-22 05-10 mL 2 (two) i ty of nebulizer 00:00: 00:00 times [place] solution 00 :00 daily. Medical Branch fluticasone 2020-05- No [id number] 1{puff} Inhale 1 [facility] propion-li 0-22 05-10 Puff every i ty of meteroL 00:00: 00:00 12 [place] (ADVAIR 00 :00 (twelve) Medical DISKUS) hours. Branch 250-50 mcg/dose inhalation disk budesonide 2020-05- No [id number] .5mg Inhale 2 [facility] 0.5 mg/2 mL 0-22 05-10 mL 2 (two) i ty of nebulizer 00:00: 00:00 times [place] solution 00 :00 daily. Medical Branch loratadine 2021- No [id number] 10mg Take 1 [facility] 10 mg 9-21 05-10 tablet by ity of tablet 00:00: 00:00 mouth [place] 00 :00 daily. Medical Branch loratadine 2021- No [id number] 10mg Take 1 [facility] 10 mg 9-21 05-10 tablet by ity of tablet 00:00: 00:00 mouth [place] 00 :00 daily. Medical Branch loratadine 2021- No [id number] 10mg Take 1 [facility] 10 mg 9-21 05-10 tablet by ity of tablet 00:00: 00:00 mouth [place] 00 :00 daily. Medical Branch loratadine 2021- No [id number] 10mg Take 1 [facility] 10 mg 9-21 05-10 tablet by ity of tablet 00:00: 00:00 mouth [place] 00 :00 daily. Medical Branch albuterol 2021- No [id number] 2.5mg Inhale 3 [facility] 2.5 mg /3 8-06 05-10 mL every 4 ity of mL (0.083 00:00: 00:00 (four) [place] %) 00 :00 hours as Medical nebulizer needed for Bran ch solution Wheezing or Shortness of Breath. albuterol No [id number] 2.5mg Inhale 3 [facility] 2.5 mg /3 8-06 05-10 mL every 4 ity of mL (0.083 00:00: 00:00 (four) [place] %) 00 :00 hours as Medical nebulizer needed for Bran ch solution Wheezing or Shortness of Breath. albuterol 2021- No [id number] 2.5mg Inhale 3 [facility] 2.5 mg /3 8-06 05-10 mL every 4 ity of mL (0.083 00:00: 00:00 (four) [place] %) 00 :00 hours as Medical nebulizer needed for Bran ch solution Wheezing or Shortness of Breath. albuterol No [id number] 2.5mg Inhale 3 [facility] 2.5 mg /3 8-06 05-10 mL every 4 ity of mL (0.083 00:00: 00:00 (four) [place] %) 00 :00 hours as Medical nebulizer needed for Bran ch solution Wheezing or Shortness of Breath. Acetaminoph Yes 1 tab, PO, [facility] en 325 MG / -21 Q4-6H, PRN l Hydrocodone 15:34: Pain Score [place] Bitartrate 00 6-10, X 5 5 MG Oral day, # 30 Tablet tab, 0 [[place] Refill(s) 5/325] Sodium No 25 mL, [facility] Chloride -21 Route: IV, l 0.9% IV 08:50: Start [place] 00 date: 05/25/16 2:50:00 DEBURRING TECHNICIAN, Duration: 30 day, Stop date: 06/24/16 2:49:00 DEBURRING TECHNICIAN, PRN Line Flush Acetaminoph No Notes: Do M emoria en 325 MG / -21 not exceed l Hydrocodone 06:48: 4gm/day of [place] Bitartrate 00 acetaminop 10 MG Oral hen. (Same Tablet as: Goodwin [[place]win 325/10) 10/325] Sodium No 1,000 mL, Memori a Chloride -21 Rate: 125 l 0.154 06:46: ml/hr, [place] MEQ/ML 00 Infuse Injectable over: 8 Solution hr, Route: IV, Dosing Weight 109.091 kg, Total Volume: 1,000, Start date: 05/25/16 0:46:00 DEBURRING TECHNICIAN, Duration: 30 day, Stop date: 06/24/16 0:45:00 DEBURRING TECHNICIAN Levetiracet No Notes: [place] ruddy am 05-25 Same as l 06:46: Keppra Mix with 100 mL NS, LR or D5W MEDICATION WASTE Product Size: 500 mg Product Wasted: _0__ mg Saline No Notes: [facility] Flush 0.9% 05-25 (Same as: l 06:46: BD [place] 00 Posiflush) Keppra No Notes: [facility] 05-25 Same as l 02:43: Keppra Mix with 100 mL NS, LR or D5W MEDICATION WASTE Product Size: 500 mg Product Wasted: __0 mg Ativan No 2 mg, [facility] 05-25 Route: l 02:23: IVP, Drug [place] 00 form: INJ, ONCE, Dosing Weight 109.091, kg, Priority: STAT, Start date: 05/24/16 20:23:00 DEBURRING TECHNICIAN, Stop date: 05/24/16 20:23:00 DEBURRING TECHNICIAN Ativan 2016-0 No 2 mg, [facility] 05-25 Route: l 01:49: IVP, Drug [place] 00 form: INJ, ONCE, Dosing Weight 109.091, kg, Priority: STAT, Start date: 05/24/16 19:49:00 DEBURRING TECHNICIAN, Stop date: 05/24/16 19:49:00 DEBURRING TECHNICIAN Ondansetron No 4 mg, Memor ia 05-25 Route: l 01:48: IVP, Drug [place] 00 form: INJ, ONCE, Dosing Weight 109.091, kg, Priority: STAT, Start date: 05/24/16 19:48:00 DEBURRING TECHNICIAN, Stop date: 05/24/16 19:48:00 DEBURRING TECHNICIAN Dexamethaso No Notes: [facility] ne 05-25 MEDICATION l 01:08: WASTE [place] 00 Product Size: 10 mg Product Wasted: __0_ mg Valium No Notes: [facility] 05-25 (Same as: l 01:08: Valium) [place] WASTE: F/P - Black; E - White/Blue Hydromorpho No Notes: [place]erson ruddy ne -20 Same as l 23:23: Dilaudid [place] Fentanyl No Notes: [facility] 1-20 (Same as: l 22:39: Sublimaze) [place] Preservati ve free. Sodium No 1,000 mL, Memori a Chloride 20 1,000 l 0.154 22:37: ml/hr, [place] MEQ/ML 00 Infuse Injectable Over: 1 Solution hr, Route: IV, 1,000, Drug form: INJ, ONCE, Priority: STAT, Dosing Weight 109.091 kg, Start date: 05/24/16 16:37:00 DEBURRING TECHNICIAN, Duration: 1 doses or times, Stop date: 05/24/16 16:37:00 DEBURRING TECHNICIAN Ondansetron No Notes: [place] ruddy -20 (Same as: l 22:37: Zofran) [place] MEDICATION WASTE Product Size: 4 mg Product Wasted: _0__ mg Levetiracet Yes 1,000 mg = Memoria am 500 MG 01-19 2 tab, PO, l Oral Tablet 16:50: BID, # 120 [place] [Keppra] 00 tab, 2 Refill(s) Lisinopril No Notes: Memor ia 01-19 (Same as: l 16:49: Prinivil, [place] 00 Zestril) Aspirin 81 No Notes: Do Me moria MG Enteric 01-19 not crush l Coated 14:00: or chew. [place] Tablet 00 (Same As: Ecotrin) Acetaminoph No Notes: [place] ruddy en 325 MG / 01-19 (Same as: l Hydrocodone 05:46: [place] Dina nn Bitartrate 00 325/5) Do 5 MG Oral not exceed Tablet 4gm/day of [[place] acetaminop 5/325] hen. heparin No Notes: [facility] 01-19 porcine l 05:00: heparin [place] 00 Tylenol No Notes: Max [place] ruddy 01-19 acetaminop l 04:11: hen = 4000 [place] 00 mg/day (4 gm/day). (Same as: Tylenol) Saline No Notes: [facility] Flush 0.9% 01-19 (Same as: l 02:00: BD [place] Posiflush) atorvastati No Notes: [place] ruddy n 01-19 Same as l 02:00: Lipitor [place] Docusate No Notes: [facility] 01-19 (Same as: l 02:00: Colace) [place] (Do Not Crush) Lisinopril No Notes: Memor ia 01-19 (Same as: l 01:58: Prinivil, [place] Zestril) Keppra No Notes: [facility] 01-19 Same as l 00:46: Keppra Mix [place] with 100 mL NS, LR or D5W MEDICATION WASTE Product Size: 500 mg Product Wasted: 0 mg Saline No Notes: [facility] Flush 0.9% 01-19 (Same as: l 00:43: BD [place] Posiflush) Labetalol No 105 mmHg, Me moria 01-19 Priority: l 00:43: Routine, [place] Start date: 01/19/16 19:43:00 CDT, Duration: 30 day, Stop date: 02/18/16 19:42:00 CDT Bisacodyl No Notes: Memori a 01-19 (Same As: l 00:43: Dulcolax, Anibal Bisco-Lax) iodixanol No 100 mL, Memor ia 01-18 Route: l 23:55: IVP, Drug Form: SOLN, Dosing Weight 109, kg, ONCALL, STAT, Start date: 01/19/16 18:55:00 CDT, Duration: 1 doses or times, Dose = 2.2ml/kg, Max dose = 100ml -- "To be infused by Radiology Staff ONLY" Saline No Notes: [facility] Flush 0.9% 01-18 (Same as: l 23:37: BD [place] Posiflush) Acetaminoph 2014-05 No 1 tab, Gerson ruddy en 325 MG / 05-30 Route: PO, l Hydrocodone 18:41: Drug Form: [place] Bitartrate 00 TAB, 10 MG Oral Dosing Tablet Weight [[place]win 95.455, 10/325] kg, ONCE, STAT, Start date: [...] ia Original 05-30 ONCE, l 18:09: Dosing Weight 95.455, kg, Start date: 03/30/15 12:09:00, Stop date: 03/30/15 12:09:00 Keppra 2014-05 No 1,500 mg, Memori a 05-30 Route: IV, l 18:08: ONCE, [place] 00 Dosing Weight 95.455, kg, Start date: 03/30/15 12:08:00, Stop date: 03/30/15 12:08:00 Tylenol 2014-05 No 650 mg, Memoria 05-30 Route: PO, l 16:19: Drug form: [place] 00 TAB, ONCE, Dosing Weight 95.455, kg, Priority: STAT, Start date: 03/30/15 10:19:00, Stop date: 03/30/15 10:19:00 Morphine 2014-05 No 4 mg, [facility] 05-30 Route: l 16:18: IVP, Drug form: INJ, ONCE, Dosing Weight 95.455, kg, Priority: STAT, Start date: 03/30/15 10:18:00, Stop date: 03/30/15 10:18:00 Saline 2014-05 No Notes: [facility] Flush 0.9% 05-30 Same as: l 16:16: BD [place] 00 Posiflush Sterile levofloxaci 2014-05 Yes 750 mg = 1 [facility]oria n 750 mg 0-14 tab, PO, l oral tablet 18:38: [id number], # [place] 00 5 tab, 0 Refill(s) Valproic 2014-05 Yes 750 mg = 3 Mem oria Acid 250 MG 0-14 cap, PO, l Oral 18:38: Q12H, # [place] Capsule 00 180 cap, 0 Refill(s) remove 2014-05 No Notes: Memoria patch 0-14 Remove old l 13:55: patch [place] 00 before applicatio n of new patch. valproic 2014-05 No Notes: Memoria acid 0-14 (Same As: l 04:00: Depakene) [place] 00 (Do Not Crush) Ativan 2014-05 No Notes: Memoria 0-14 (Same as: l 03:24: Ativan) Anibal 00 Nicotine 2014-05 No Notes: Memoria 0-13 (Same as: l 17:07: Habitrol) Anibal 00 "Remove old patch before applicatio n of new patch" Valproic 2014-05 No Notes: Memoria Acid 250 MG 0-13 (Same As: l Oral 02:00: Depakene) Anibal Capsule 00 (Do Not Crush) Levaquin 2014-05 No Notes: Do Gerson ruddy 0-12 not give l 23:00: w/antacids , dairy pdt & minerals Take 1 hr before or 2 hr after dairy products Lorazepam 2014-05 No Notes: Memori a 0-12 (Same as: l 17:27: Ativan) Anibal 00 Ativan 2014-05 No Notes: Memoria 0-12 (Same as: l 17:25: Ativan) Anibal 00 fosphenytoi 2014-05 No Notes: Gerson ruddy n 0-12 (Same as: l 17:23: Cerebyx) [place] 00 Stated mg = mgPE. Refriger ate ANTICONVUL MAR Do not confuse with celebrex. MEDICATION WASTE Product Size: 500 mg Product Wasted: 0_ mg Robaxin 2014-05 No Notes: Memoria 0-12 (Same l 15:16: as:Robaxin ) Lisinopril 2014-05 No Notes: Memor ia 0-12 (Same as: l 14:00: Prinivil, Anibal 00 Zestril) Valproic 2014-05 No Notes: Memoria Acid 100 0-12 Dilute in l MG/ML 13:09: at least [place] Injectable 00 50ml D5W Solution or NS. Infusion rate = 20 mg/min (Same As: Depacon) Acetaminoph 2014-05 No Notes: Do M emoria en 325 MG / 0-12 not exceed l Hydrocodone 10:09: 4gm/day of [place] Bitartrate 00 acetaminop 10 MG Oral hen. (Same Tablet as: Goodwin [Goodwin 325/10) 10/325] Phenytoin 2014-05 No Notes: Memori a 0-12 (Same as: l 08:00: Dilantin) [place] 00 Do not infuse greater than 50 mg/min. MEDICATION WASTE Product Size: 100 mg Product Wasted: ___ mg Sodium 2014-05 No 25 mL, Memoria Chloride 0-12 Route: IV, l 0.9% IV 04:05: Start [place] 00 date: 02/12/15 23:05:00, Duration: 30 day, Stop date: 03/14/15 22:04:00, PRN Line Flush BD Normal 2014-05 No Notes: Memori a Saline 0-12 (Same as: l Flush 04:05: BD [place] 00 Posiflush) potassium 2014-05 No Notes: Memori a chloride 0-12 Infuse at l 03:59: a rate of [place] 00 10 mEq/hr. (Same as: KCL) potassium 2014-05 No Notes: Memori a phosphate-s 0-12 (Same as: l odium 03:59: Neutra-Deja Avni n phosphate 00 s) Each 250 mg-278 1.25 gm mg-164 mg pkt has oral powder 250mg phosphorou s. Mix w/2.5oz water and stir. potassium 2014-05 No Notes: Memori a phosphate + 0-12 (Same as: l Sodium 03:59: K [place]ibal Chloride 00 Phosphate. 0.9% IV 250 ) [...] 0-12 mL, Route: l 03:59: IVPB, Drug Anibal 00 form: INJ, PRN, Dosing Weight 86.3, [...] Oxide 0-12 (Same as: l 03:59: Mag-Ox [place] 00 400) Magnesium oxide 342bm=273l g elemental magnesium Dose=____m g magnesium oxide (___mg elemental magnesium) Zosyn 2014-05 No Notes: Memoria 0-12 (Same as: l 02:00: Zosyn) Anibal Dosing based on Piperacill in component MEDICATION WASTE Product Size: 4500 mg Product Wasted: 0 mg Docusate 2014-05 No Notes: Memoria 0-12 (Same as: l 01:34: Colace) Anibal 00 (Do Not Crush) Ondansetron 2014-05 No Notes: Gerson ruddy 0-12 (Same as: l 01:34: Zofran) Anibal 00 MEDICATION WASTE Product Size: 4 mg Product Wasted: ___ mg Acetaminoph 2014-05 No Notes: Do M emoria en 0-12 not exceed l 01:34: 4 gm/day. [place] 00 (Same as: Tylenol) Lorazepam 2014-05 No Notes: Memori a 0-12 (Same as: l 01:30: Ativan) [place] 00 Vancomycin 2014-05 No Notes: Memor ia 0-12 TIME l 00:00: CRITICAL [place] 00 MEDICATION NS 1,000 mL 2014-05 No 1,000 mL, M emoria 0-11 Rate: 125 l 23:32: ml/hr, [place] 00 Infuse over: 8 hr, Route: IV, Dosing Weight 89.008 kg, Total Volume: 1,000, Start date: 02/12/15 18:32:00, Duration: 30 day, Stop date: 03/14/15 18:31:00 potassium No Notes: Memori a phosphate-s 8-12 (Same as: l odium 14:52: Neutra-Deja Avni n phosphate 00 s) Each 250 mg-278 1.25 gm mg-164 mg pkt has oral powder 250mg phosphorou s. Mix w/2.5oz water and stir. magnesium No 2 gm, 50 Gerson ruddy sulfate 2 8-12 mL, Route: l gm in Water 14:52: IVPB, Drug Anibal 50 ml 00 form: INJ, ONCE, Dosing Weight 89.008, kg, Start date: 12/14/14 9:52:00, Duration: 2 hr, Stop date: 12/14/14 9:52:00 Folic Acid Yes 1 mg = 1 Mem oria 1 MG Oral 8-12 tab, PO, l Tablet 13:18: Daily, # [place] 00 30 tab, 2 Refill(s) thiamine Yes 100 mg = 1 Mem oria 100 mg oral 8-12 tab, PO, l tablet 13:18: Daily, # Anibal 00 30 tab, 2 Refill(s) Valproic Yes 500 mg = 2 Mem oria Acid 250 MG 8-12 cap, PO, l Oral 13:18: Q12H, # Anibal Capsule 00 120 cap, 2 Refill(s) cefpodoxime Yes Special Mem oria 100 mg oral 8-12 Instructio l tablet 13:18: ns: Take Anibal 00 until all pills are gone. Neutra-Phos No Notes: Gerson ruddy 8-12 (Same as: l 11:12: Neutra-Deja Anibal 00 s) Each 1.25 gm pkt has 250mg phosphorou s. Mix w/2.5oz water and stir. Magnesium No 2 gm, 50 Gerson ruddy Sulfate 8-12 mL, Route: l 11:12: IVPB, Drug form: INJ, ONCE, Dosing Weight 89.008, kg, Start date: 12/14/14 6:12:00, Duration: 2 hr, Stop date: 12/14/14 6:12:00 cefpodoxime No Notes: Gerson ruddy 8-11 With food. l 18:00: (Same As: Anibal 00 Vantin) Levofloxaci No Notes: Do M emoria n 8-11 not give l 17:00: w/antacids , dairy pdt & minerals Take 1 hr before or 2 hr after dairy pdt (Same as:Levaqui n) Ativan No Notes: Memoria 8-11 (Same as: l 15:22: Ativan) [place] 00 Folic Acid No Notes: Memor ia 8-11 (Same as: l 14:00: Folvite) Anibal 00 multivitami No Notes: Gerson ruddy n 8-11 (Same l 14:00: as:Thera) [place] 00 Take with food. Thiamine No Notes: Memoria 8-11 (Same As: l 14:00: Vitamin [place]ibal 00 B1) Acetaminoph No Notes: Do M emoria en 325 MG / 8-10 not exceed l Hydrocodone 22:00: 4gm/day of [place] Bitartrate 00 acetaminop 10 MG Oral hen. (Same Tablet as: Goodwin [Goodwin 325/10) 10/325] Lorazepam No Notes: Memori a 8-10 (Same as: l 16:26: Ativan) Anbial Fentanyl No Notes: Memoria 8-10 (Same as: l 14:25: Sublimaze) Anibal 00 Preservati ve free. Valproic No Notes: Memoria Acid 250 MG 8-10 (Same As: l Oral 14:00: Depakene) Anibal Capsule 00 (Do Not Crush) Docusate No Notes: Memoria Sodium 50 8-10 (Same as l MG / 14:00: Senokot-S) sennosides, 00 Equiv. to [facility] 8.6 MG Di-Colac Oral Tablet e. heparin No Notes: Memoria 8-10 porcine l 13:00: heparin [place] 00 Sodium No 1,000 mL, Memori a Chloride 8-10 Rate: 125 l 0.154 09:51: ml/hr, [place] MEQ/ML 00 Infuse Injectable over: 8 Solution hr, Route: IV, Dosing Weight 89.9 kg, Total Volume: 1,000, Start date: 12/12/14 4:51:00, Duration: 30 day, Stop date: 01/11/15 4:50:00 Saline No Notes: Memoria Flush 0.9% 8-10 Same as: l 09:51: BD [place]ibal 00 Posiflush Sterile Valproic No Notes: Memoria Acid 100 8-10 Dilute in l MG/ML 09:51: at least [place] Injectable 00 50ml D5W Solution or NS. Infusion rate = 20 mg/min (Same As: Depacon) Lorazepam No Notes: Memori a 8-10 (Same as: l 09:51: Ativan) Doxycycline Yes 100 mg = 1 Memoria 100 MG Oral 6-25 cap, PO, l Capsule 19:56: Daily, X 7 Herm carlo day, # 7 cap, 0 Refill(s) normal No 1,000 mL, Memori a saline 0.9% 625 Rate: 100 l IV 1,000 mL 15:08: ml/hr, Herm Infuse over: 10 hr, Route: IV, Dosing Weight 86.364 kg, Total Volume: 1,000, Start date: 10/27/14 10:08:00, Duration: 30 day, Stop date: 11/26/14 10:07:00 Lisinopril No Notes: Memor ia 6-25 (Same as: l 14:00: Prinivil, [place] 00 Zestril) Vyvanse No 70 mg, Memoria 6-25 Route: PO, l 14:00: Drug Form: [place] 00 CAP, Dosing Weight 86.364, kg, QAM, [...] Memoria 6-25 tab, l 14:00: Route: PO, Anibal 00 Drug form: TAB, Daily, Dosing Weight 86.364, kg, Start date: 10/27/14 9:00:00, Duration: 30 day, Stop date: 11/25/14 9:00:00 Patient's No Patient's Mem oria own med 6-25 own med l Vynase 70mg 14:00: Vynase Herm carlo 00 70mg, 1 cap, Drug form: MISC, Route: PO, QAM, 10/27/14 9:00:00, Duration: 30 day, Stop date: 11/25/14 9:00:00 Acetaminoph No Notes: Do M emoria en 325 MG / 6-25 not exceed l Hydrocodone 12:41: 4gm/day of [place] Bitartrate 00 acetaminop 10 MG Oral hen. (Same Tablet as: Goodwin [Goodwin 325/10) 10/325] nitroglycer No Notes: Gerson ruddy in 0.4 mg -25 (Same l sublingual 04:28: as:Nitroqu H ermann tablet 00 ick, Nitrostat) "Do Not Crush" Sublingual tablet atropine No 0.5 mg, 5 Gerson ruddy 6-25 mL, Route: l 04:28: IVP, Drug [place]ibal 00 form: INJ, PRN, PRN Bradycardi a, Start date: 10/26/14 23:28:00, Duration: 30 day, Stop date: 11/25/14 23:27:00 Lorazepam No 1 mg, Memoria 6-24 Route: l 23:06: IVP, Drug [place] 00 form: INJ, ONCE, Dosing Weight 86.364, kg, PRN as needed for anxiety, Start date: 10/26/14 18:06:00 Dilantin No 1,000 mg, Gerson ruddy 10-26 Route: l 22:59: IVPB, [place]ibal 00 ONCE, Dosing Weight 86.364, kg, Priority: STAT, Start date: 10/26/14 17:59:00, Stop date: 10/26/14 17:59:00 Lorazepam No 2 mg, Memoria 10-26 Route: l 22:49: IVP, Drug form: INJ, ONCE, Dosing Weight 86.364, kg, Priority: STAT, Start date: 10/26/14 17:49:00, Stop date: 10/26/14 17:49:00 Acetaminoph No 1 tab, Gerson ruddy en 325 MG / 10-26 Route: PO, l Hydrocodone 22:12: Drug Form: Bitartrate 00 TAB, 5 MG Oral Dosing Tablet Weight [Goodwin 86.364, 5/325] kg, ONCE, STAT, Start date: 10/26/14 17:12:00, Stop date: 10/26/14 17:12:00 Ativan No 2 mg, Memoria 10-26 Route: IM, l 21:00: Drug form: Anibal 00 INJ, ONCE, Dosing Weight 86.364, kg, Priority: STAT, Start date: 10/26/14 16:00:00, Stop date: 10/26/14 16:00:00 Saline No Notes: Memoria Flush 0.9% 10-26 (Same as: l 20:35: BD [place] 00 Posiflush) Divalproex Yes 250 mg = [...] ia 3-18 (Same as: l 14:00: Prinivil, Anibal 00 Zestril) Divalproex No Notes: Memor ia Sodium 250 3-18 (Same as: l MG Enteric 14:00: Depakote Her story Coated 00 Delayed Tablet Release) [Depakote] Do not confuse with the extended-r elease tablet. Delayed absorption , enteric coated tablet. Do not crush Soma No 350 mg, Memoria 3-18 Route: PO, l 14:00: Drug form: [place] 00 TAB, TID, Dosing Weight 85, kg, Start date: 07/20/14 9:00:00, Duration: 30 day, Stop date: 08/18/14 17:00:00 Robaxin No Notes: Memoria 3-18 (Same l 14:00: as:Robaxin [place] ) Lovenox No Notes: Memoria 3-18 (Same as: l 10:00: Lovenox) [place] Diazepam No Notes: Memoria 3-18 (Same as: l 09:41: Valium) Anibal 00 Acetaminoph No Notes: Do M emoria en 325 MG / 3-18 not exceed l Hydrocodone 09:41: 4gm/day of [place] Bitartrate 00 acetaminop 10 MG Oral hen. (Same Tablet as: Goodwin [Goodwin 325/10) 10/325] lisdexamfet Yes 70 mg = 1 M [...] tab, 0 10 MG Oral Refill(s) Tablet [Goodwin 10/325] Divalproex Yes 250 mg = 1 M emoria Sodium 250 3-18 tab, PO, l MG Enteric 09:38: TID, # 270 H ermann Coated 00 tab, 0 Tablet Refill(s) [Depakote] Lorazepam No Notes: Memori a 3-18 (Same as: l 09:37: Ativan) [place] 00 Acetaminoph No Notes: Gerson ruddy en 325 MG / 3-18 (Same as: l Hydrocodone 06:40: Goodwin Dina nn Bitartrate 00 325/5) Do 5 [...] Dilute in l MG/ML 01:13: at least [place] Injectable 00 50ml D5W Solution or NS. Infusion rate = 20 mg/min (Same As: Depacon) Dilaudid No 1 mg, Memoria 3-17 Route: l 23:47: IVP, ONCE, Dosing Weight 85, kg, Priority: STAT, Start date: 07/19/14 18:47:00, Stop date: 07/19/14 18:47:00 Saline No Notes: Memoria Flush 0.9% 3-17 (Same as: l 22:48: BD [place] 00 Posiflush) Sodium No 1,000 mL, Memori a Chloride 3-17 Infuse l 0.154 22:48: Over: 1 Anibal MEQ/ML 00 hr, Route: Injectable IV, ONCE, Solution Priority: STAT, kg, Start date: 07/19/14 17:48:00, Duration: 1 doses or times, Stop date: 07/19/14 17:48:00 CARISOPRODO 2013-0 Yes 350mg Take [address] [facility] ([facility] 3-[facility] by [facility]) 13:35: mouth [address] [place] [id number] (four) Center times daily as needed. LISDEXAMFET 2013-0 Yes 70mg Take [address] [facility] AMINE 3-28 by mouth. [facility] DIM[facility]YL[facility] 13:35: Medical ([place] [id number] Center ORAL) CARISOPRODO 2013-0 Yes 350mg Take [address] [facility] (SOMA 3-[facility]) 13:35: mouth [address] [place] [id number] (four) Center times daily as needed. LISDEXAMFET 2013-0 Yes 70mg Take [address] [facility] AMINE 3-28 by mouth. [facility] 13:35: Medical ([address] ORAL) CARISOPRODO 2013-0 Yes 350mg Take [address] [facility] (SOMA 3-28 [facility] by [facility]) 13:35: mouth 4 [place] [id number] (four) Center times daily as needed. LISDEXAMFET 2013-0 Yes 70mg Take [address] [facility] [address] AMINE 3-28 by mouth. [facility]IM[facility] 13:35: Medical ([address] ORAL) HYDROcodone 2013-0 Yes 1{tbl} Take [address] -acetaminop 3-28 tablet by Rafiq es hen ([facility] 00:00: mouth Medica l 10-325) 00 every 6 Center 10-325 mg (six) per tablet hours as needed for Pain. HYDROcodone Yes 1{tbl} Take [address] -acetaminop 3-28 tablet by Rafiq es hen ([facility] 00:00: mouth Medica l 10-325) 00 every 6 Center 10-325 mg (six) per tablet hours as needed for Pain. HYDROcodone Yes 1{tbl} Take [address] -acetaminop 3-28 tablet by Rafiq es hen ([facility] 00:00: mouth Medica l 10-325) 00 every 6 Center 10-325 mg (six) per tablet hours as needed for Pain. Goodwin 5/325 Yes Yih-Chowdary 1 tab, PO, Memoria oral tablet 2-18 Chen Q4-6H, l 23:04: PRN, 21 Anibal 37 tab, as needed for pain, Substituti [...] Chen mL, Route: l 20:32: IM, Drug form: INJ, ONCE, Dosing Weight 93.182, kg, Priority: STAT, Start date: 06/22/12 14:32:00, Stop date: 06/22/12 14:32:00 Valium No Yih-Chowdary 10 mg, 1 Mem oria 2-18 Chen tab, l 20:32: Route: PO, [place] 00 Drug form: TAB, ONCE, Dosing Weight 93.182, kg, Priority: STAT, Start date: 06/22/12 14:32:00, Stop date: 06/22/12 14:32:00 Goodwin 2012-0 Yes Janae Hernández 1 tab, PO, Me moria 10/325 oral 3-09 Q6H, PRN, l tablet 18:20: 24 tab, Anibal 50 for pain, Substituti on Allowed, Maintenanc e acetaminoph No Ju-un 2 tab, Mem oria en-hydrocod 3Novian Route: PO, l one 325 17:20: Park Drug Form: Herm carlo mg-10 mg 00 TAB, Q6H, oral tablet PRN as needed for pain, Start date: 07/11/11 11:20:00, Duration: 30 day, Stop date: 08/10/11 11:19:00 azithromyci 0 No Janae Hernández 250 mg, 1 Memoria n 250 mg 3-08 tab, l oral tablet 15:00: Route: PO, [place] 00 Drug form: TAB, BID, Start date: 07/11/11 9:00:00, Duration: 4 day, Stop date: 07/14/11 17:00:00 azithromyci 2011-0 No Janae Hernández 500 mg, 2 Memoria n 250 mg 3-07 tab, l oral tablet 23:00: Route: PO, [place] 00 Drug form: TAB, ONCE, Start date: 07/10/11 17:00:00, Stop date: 07/10/11 17:00:00 azithromyci 2011-0 No Janae Hernández 500 mg, 2 Memoria n 3-07 tab, l 21:00: Route: PO, [place] 00 Drug form: TAB, [id number], Start date: 07/10/11 15:00:00, Duration: 3 day, Stop date: 07/12/11 15:00:00 Tessalon 2011- No Ju-un 200 mg, 2 Mem oria Perles 3-Novian cap, l 15:00: Park Route: PO, [place] 00 Drug form: CAP, TID, Start date: 07/10/11 9:00:00, Duration: 30 day, Stop date: 08/08/11 17:00:00 lisinopril 2011- No Ju-un 20 mg, 1 Me moria 3-07 Canelo tab, l 15:00: Park Route: PO, Anibal 00 Drug form: TAB, Daily, Start date: 07/10/11 9:00:00, Duration: 30 day, Stop date: 08/08/11 9:00:00 Celexa 2011-0 No Ju-un 10 mg, 0.5 Gerson ruddy 3- [place] tab, l 15:00: [place] Route: PO, Anibal 00 Drug form: TAB, Daily, Start date: 07/10/11 9:00:00, Duration: 30 day, Stop date: 08/08/11 9:00:00 Abilify 2011-0 No Ju-un 6 mg, 3 Memori a 3- [place] tab, l 15:00: [place] Route: PO, [place] 00 Drug form: TAB, Daily, Start date: 07/10/11 9:00:00, Duration: 30 day, Stop date: 08/08/11 9:00:00 nicotine 2011-0 No Ju-un 21 mg, 1 Gerson ruddy 3- [place]elo patch, l 15:00: Park Route: [place] 00 TOP, Drug form: ERFILM, Daily, Start date: 07/10/11 9:00:00, Duration: 30 day, Stop date: 08/08/11 9:00:00 acetylcyste 2011- No Ju-un 600 mg, 3 Memoria ine 20% 07-09 ml, Route: l inhalation 08:00: [facility], Drug He rmann solution 00 Form: SOLN, RQ6H, Start date: 07/10/11 2:00:00, Stop date: 08/08/11 20:00:00 albuterol-i No Ju-un 3 ml, Gerson ruddy pratropium 07-09ian Route: l 2.5-0.5 mg 08:00: [facility], Drug He rmann inhalation 00 Form: solution SOLN, RQ6H, Start date: 07/10/11 2:00:00, Duration: 30 day, Stop date: 08/08/11 20:00:00 Mucinex 2011-0 No Ju-un 600 mg, 1 Gerson ruddy 3- [place] tab, l 03:00: [place] Route: PO, Anibal 00 Drug form: ERTAB, Q12H, Start date: 07/09/11 21:00:00, Duration: 30 day, Stop date: 08/08/11 9:00:00 azithromyci No Ju-un 500 mg, Me moria n 07-09 Route: PO, l 03:00: Park Drug form: [place] 00 TAB, [id number], Start date: 07/09/11 21:00:00, Duration: 30 day, Stop date: 08/07/11 21:00:00 tuberculin No Ju-un 5 unit, Mem oria purified 07-09ian 0.1 mL, l protein 02:47: Park Route: [place] derivative 00 INTRADERM, 5 ONCE, tuberculin Start units/0.1 date: mL 07/09/11 intradermal 20:47:00, solution Stop date: 07/09/11 20:47:00 hydrALAZINE No Ju-un 10 mg, 0.5 Memoria 07-09ian mL, Route: l 02:42: Park IV, Drug Anibal form: INJ, Q4H, PRN Hypertensi on, Start date: 07/09/11 20:42:00, Duration: 30 day, Stop date: 08/08/11 20:41:00, SBP greater than 150 Valium No Ju-un 10 mg, 1 Memori a 07-09 tab, l 02:37: [place] Route: PO, Anibal 00 Drug form: TAB, TID, PRN as needed for anxiety, Start date: 07/09/11 20:37:00, Duration: 30 day, Stop date: 08/08/11 20:36:00 Goodwin No Ju-un 2 tab, Memoria 10/325 oral 07-09 Route: PO, l tablet 02:36: Park Drug Form: Dina nn 00 TAB, Q6H, PRN as needed for pain, Start date: 07/09/11 20:36:00, Stop date: 08/08/11 20:35:00 ondansetron No Ju-un 4 mg, 2 Me moria 07-09ian mL, Route: l 02:34: Park IVP, Drug [place] form: INJ, Q6H, PRN Nausea & Vomiting, Start date: 07/09/11 20:34:00, Duration: 30 day, Stop date: 08/08/11 20:33:00 docusate No Ju-un 100 mg, 1 Mem oria 3-07 Canelo cap, l 02:34: [place] Route: PO, Anibal Drug form: CAP, BID, PRN Constipati on, Start date: 07/09/11 20:34:00, Duration: 30 day, Stop date: 08/08/11 20:33:00 morphine No Ju-un 2 mg, 1 Memor ia Sulfate 07-09ian mL, Route: l 02:32: [place] IVP, Drug form: INJ, Q4H, PRN Pain, Start date: 07/09/11 20:32:00, Duration: 30 day, Stop date: 08/08/11 20:31:00 azithromyci No Shan Jeremias 500 mg, Memoria n 3-07 Vu Route: l 00:08: IVPB, [place] 00 ONCE, Priority: STAT, Start date: 07/09/11 18:08:00, Stop date: 07/09/11 18:08:00 Celexa Yes Ju-un PO, Daily, Gerson ruddy 07-08ian Substituti l 23:28: [place] on Allowed Anibal 24 azithromyci No Brittany M 500 mg, Memoria n 3- [place] Route: PO, l 23:26: ONCE, Anibal 00 Priority: STAT, Start date: 07/09/11 17:26:00, Stop date: 07/09/11 17:26:00 Unknown No PO, Memoria Home 07-08 Substituti l Medication 23:25: on Anibal 53 Allowed, prnprn Abilify No Ju-un PO, Daily, Mem oria 07-08ian Substituti l 23:23: [place] on Allowed Anibal 42 Valium 10 No Ju-un 10 mg, 1 Mem oria mg oral 3Novian tab, PO, l tablet 23:23: Park TID, PRN, Avni n 33 Anxiety, Substituti on Allowed, TAB albuterol No Shan Jeremias 2.49 mg, 3 Memoria 0.083% 3 Vu mL, Route: l inhalation 23:09: NEB, Drug He rmann solution 00 form: SOLN, Q15Min, Priority: STAT, Start date: 07/09/11 17:09:00, Duration: 3 doses or times, Stop date: 07/09/11 17:39:00 Rocephin 2011-0 No Ju-un 1 gm, Memoria 07-08 Canelo Route: l 23:00: Park IVPB, Drug Anibal 00 form: PDR/INJ, [id number], Start date: 07/09/11 17:00:00, Duration: 30 day, Stop date: 08/07/11 17:00:00 Sodium 2011-0 No Shan Jeremias 500 mL, Mem oria Chloride 07-08 Vu Rate: 500 l 0.9% 22:18: ml/hr, [place] (Bolus) IV 00 Infuse 500 mL over: 1 hr, Route: IV, Total Volume: 500, Bolus Dose, Priority: STAT, Start date: 07/09/11 16:18:00, Duration: 1 doses or times, Stop date: 07/09/11 17:17:00 Immunizations Ordered Filled Date Status Comments Source Immunization Name Immunization Name Influenza Virus 2022-02-27 Completed [facility] [place] [facility] Preserv and ABX Branch Free 6 MO-64 YRS Influenza Virus 2022-02-27 Completed [facility], [facility]:00 [place] [facility] Preserv and ABX Branch Free 6 MO-64 YRS Influenza Virus 2022-02-27 Completed [facility], 00:00:00 [place] [facility] Preserv and ABX Branch Free 6 MO-64 YRS Influenza Virus 2022-02-27 Completed [facility], 00:00:00 [place] [facility] Preserv and ABX Branch Free 6 MO-64 YRS Influenza Virus 2022-02-27 Completed [facility], 00:00:00 [place] [facility] Preserv and ABX Branch Free 6 MO-64 YRS Influenza Virus 2022-02-27 Completed [facility], 00:00:00 [place] [facility] Preserv and ABX Branch Free 6 MO-64 YRS Influenza Virus 2022-02-27 Completed [facility], 00:00:00 [place] [facility] Preserv and ABX Branch Free 6 MO-64 YRS Influenza Virus 2022-02-27 Completed [facility], 00:00:00 [place] [facility] Preserv and ABX Branch Free 6 MO-64 YRS Influenza Virus 2022-02-27 Completed [facility], 00:00:00 [place] [facility] Preserv and ABX Branch Free 6 MO-64 YRS Influenza Virus 2022-02-27 Completed [facility], 00:00:00 [place] [facility] Preserv and ABX Branch Free 6 MO-64 YRS Influenza Virus 2022-02-27 Completed [facility], 00:00:00 [place] [facility] Preserv and ABX Branch Free 6 MO-64 YRS Influenza Virus 2022-02-27 Completed [facility], 00:00:00 [place] [facility] Preserv and ABX Branch Free 6 MO-64 YRS Influenza Virus 2022-02-27 Completed [facility], 00:00:00 [place] [facility] Preserv and ABX Branch Free 6 MO-64 YRS Influenza Virus 2022-02-27 Completed [facility], 00:00:00 [place] [facility] Preserv and ABX Branch Free 6 MO-64 YRS Influenza Virus 2022-02-27 Completed [facility], 00:00:00 [place] [facility] Preserv and ABX Branch Free 6 MO-64 YRS Influenza Virus 2022-02-27 Completed [facility], 00:00:00 [place] [facility]ical Preserv and ABX Branch Free 6 MO-64 YRS Influenza Virus 2022-02-27 Completed [facility], 00:00:00 [place] Me [facility]ical Preserv and ABX Branch Free 6 MO-64 YRS Influenza Virus 2022-02-27 Completed [facility], 00:00:00 [place] [facility] Preserv and ABX Branch Free 6 MO-64 YRS Influenza Virus 2022-02-27 Completed [facility], 00:00:00 [place] [facility] Preserv and ABX Branch Free 6 MO-64 YRS Influenza Virus 2022-02-27 Completed [facility], 00:00:00 [place] [facility] Preserv and ABX Branch Free 6 MO-64 YRS Influenza Virus 2022-02-27 Completed [facility], 00:00:00 [place] [facility]ical Preserv and ABX Branch Free 6 MO-64 YRS Influenza Virus 2022-02-27 Completed [facility], 00:00:00 [place] Me [facility]ical Preserv and ABX Branch Free 6 MO-64 YRS Influenza Virus 2022-02-27 Completed [facility], 00:00:00 [place] Me [facility]ical Preserv and ABX Branch Free 6 MO-64 YRS Influenza Virus 2022-02-27 Completed [facility], 00:00:00 [place] Me [facility]ical Preserv and ABX Branch Free 6 MO-64 YRS Influenza Virus 2022-02-27 Completed [facility], 00:00:00 [place] Me [facility]ical Preserv and ABX Branch Free 6 MO-64 YRS Influenza Virus 2022-02-27 Completed [facility], 00:00:00 [place] Me [facility]ical Preserv and ABX Branch Free 6 MO-64 YRS Influenza Virus 2022-02-27 Completed [facility], 00:00:00 [place] Me [facility]ical Preserv and ABX Branch Free 6 MO-64 YRS Influenza Virus 2022-02-27 Completed [facility], 00:00:00 [place] Me [facility]ical Preserv and ABX Branch Free 6 MO-64 YRS Influenza Virus 2022-02-27 Completed [facility], 00:00:00 [place] Me [facility]ical Preserv and ABX Branch Free 6 MO-64 YRS Influenza Virus 2022-02-27 Completed [facility], 00:00:00 [place] Me [facility]ical Preserv and ABX Branch Free 6 MO-64 YRS Influenza Virus 2022-02-27 Completed [facility], 00:00:00 [place] Me [facility]ical Preserv and ABX Branch Free 6 MO-64 YRS Influenza Virus 2022-02-27 Completed [facility], 00:00:00 [place] Me [facility]ical Preserv and ABX Branch Free 6 MO-64 YRS Influenza Virus 2022-02-27 Completed [facility], 00:00:00 [place] [facility] Preserv and ABX Branch Free 6 MO-64 YRS Influenza Virus 2022-02-27 Completed [facility], 00:00:00 [place] [facility] Preserv and ABX Branch Free 6 MO-64 YRS Influenza Virus 2022-02-27 Completed [facility], 00:00:00 [place] [facility] Preserv and ABX Branch Free 6 MO-64 YRS Influenza Virus 2022-02-27 Completed [facility], 00:00:00 [place] [facility] Preserv and ABX Branch Free 6 MO-64 YRS Influenza Virus 2022-02-27 Completed [facility], 00:00:00 [place] [facility] Preserv and ABX Branch Free 6 MO-64 YRS Influenza Virus 2022-02-27 Completed [facility], 00:00:00 [place] [facility] Preserv and ABX Branch Free 6 MO-64 YRS Influenza Virus 2022-02-27 Completed [facility], 00:00:00 [place] [facility] Preserv and ABX Branch Free 6 MO-64 YRS Influenza Virus 2022-02-27 Completed [facility], 00:00:00 [place] [facility] Preserv and ABX Branch Free 6 MO-64 YRS Influenza Virus 2022-02-27 Completed [facility], 00:00:00 [place] [facility] Preserv and ABX Branch Free 6 MO-64 YRS Influenza Virus 2022-02-27 Completed [facility], 00:00:00 [place] [facility] Preserv and ABX Branch Free 6 MO-64 YRS Influenza Virus 2022-02-27 Completed [facility], 00:00:00 [place] [facility] Preserv and ABX Branch Free 6 MO-64 YRS Influenza Virus 2022-02-27 Completed [facility], 00:00:00 [place] [facility] Preserv and ABX Branch Free 6 MO-64 YRS Influenza Virus 2022-02-27 Completed [facility], 00:[facility]:00 [place] [facility] Preserv and ABX Branch Free 6 MO-64 YRS Influenza Virus 2022-02-27 Completed [facility], 00:00:00 [place] [facility] Preserv and ABX Branch Free 6 MO-64 YRS Influenza Virus 2022-02-27 Completed [facility], 00:00:00 [place] [facility] Preserv and ABX Branch Free 6 MO-64 YRS Influenza Virus 2022-02-27 Completed [facility], 00:00:00 [place] [facility] Preserv and ABX Branch Free 6 MO-64 YRS Influenza Virus 2022-02-27 Completed [facility], 00:00:00 [place] [facility] Preserv and ABX Branch Free 6 MO-64 YRS Influenza Virus 2022-02-27 Completed [facility], 00:00:00 [place] [facility] Preserv and ABX Branch Free 6 MO-64 YRS Influenza Virus 2022-02-27 Completed [facility], 00:00:00 [place] [facility] Preserv and ABX Branch Free 6 MO-64 YRS Influenza Virus 2022-02-27 Completed [facility], 00:00:00 [place] [facility] Preserv and ABX Branch Free 6 MO-64 YRS Influenza Virus 2022-02-27 Completed [facility], 00:00:00 [place] [facility] Preserv and ABX Branch Free 6 MO-64 YRS Influenza Virus 2022-02-27 Completed [facility], 00:00:00 [place] [facility] Preserv and ABX Branch Free 6 MO-64 YRS Influenza Virus 2022-02-27 Completed [facility], 00:00:00 [place] [facility] Preserv and ABX Branch Free 6 MO-64 YRS Influenza Virus 2022-02-27 Completed [facility], 00:00:00 [place] [facility] Preserv and ABX Branch Free 6 MO-64 YRS Influenza Virus 2022-02-27 Completed [facility], 00:00:00 [place] [facility] Preserv and ABX Branch Free 6 MO-64 YRS Influenza Virus 2022-02-27 Completed [facility], 00:00:00 [place] [facility] Preserv and ABX Branch Free 6 MO-64 YRS Influenza Virus 2022-02-27 Completed [facility], 00:00:00 [place] [facility] Preserv and ABX Branch Free 6 MO-64 YRS Influenza Virus 2022-02-27 Completed [facility], 00:00:00 [place] [facility] Preserv and ABX Branch Free 6 MO-64 YRS Influenza Virus 2022-02-27 Completed [facility], 00:00:00 [place] [facility] Preserv and ABX Branch Free 6 MO-64 YRS Influenza Virus 2022-02-27 Completed [facility], 00:00:00 [place] [facility] Preserv and ABX Branch Free 6 MO-64 YRS Influenza Virus 2022-02-27 Completed [facility], 00:00:00 [place] [facility] Preserv and ABX Branch Free 6 MO-64 YRS Influenza Virus 2022-02-27 Completed [facility], 00:00:00 [place] [facility] Preserv and ABX Branch Free 6 MO-64 YRS Influenza Virus 2022-02-27 Completed [facility], 00:00:00 [place] [facility] Preserv and ABX Branch Free 6 MO-64 YRS Influenza Virus 2022-02-27 Completed [facility], 00:00:00 [place] [facility] Preserv and ABX Branch Free 6 MO-64 YRS Influenza Virus 2022-02-27 Completed [facility], 00:00:00 [place] [facility] Preserv and ABX Branch Free 6 MO-64 YRS Influenza Virus 2022-02-27 Completed [facility], 00:00:00 [place] [facility] Preserv and ABX Branch Free 6 MO-64 YRS Influenza Virus 2022-02-27 Completed [facility], 00:00:00 [place] [facility] Preserv and ABX Branch Free 6 MO-64 YRS Influenza Virus 2022-02-27 Completed [facility], 00:00:00 [place] [facility] Preserv and ABX Branch Free 6 MO-64 YRS Influenza Virus 2022-02-27 Completed [facility], 00:00:00 [place] [facility] Preserv and ABX Branch Free 6 MO-64 YRS Influenza Virus 2022-02-27 Completed [facility], 00:00:00 [place] [facility] Preserv and ABX Branch Free 6 MO-64 YRS Influenza Virus 2022-02-27 Completed [facility], 00:00:00 [place] [facility] Preserv and ABX Branch Free 6 MO-64 YRS Influenza Virus 2022-02-27 Completed [facility], 00:00:00 [place] [facility] Preserv and ABX Branch Free 6 MO-64 YRS Influenza Virus 2022-02-27 Completed [facility], 00:00:00 [place] [facility] Preserv and ABX Branch Free 6 MO-64 YRS Influenza Virus 2022-02-27 Completed [facility], 00:00:00 [place] [facility] Preserv and ABX Branch Free 6 MO-64 YRS Influenza Virus 2022-02-27 Completed [facility], 00:00:00 [place] [facility] Preserv and ABX Branch Free 6 MO-64 YRS Influenza Virus 2022-02-27 Completed [facility], 00:00:00 [place] [facility] Preserv and ABX Branch Free 6 MO-64 YRS Influenza Virus 2022-02-27 Completed [facility], 00:00:00 [place] [facility] Preserv and ABX Branch Free 6 MO-64 YRS Influenza Virus 2022-02-27 Completed [facility], 00:00:00 [place] [facility] Preserv and ABX Branch Free 6 MO-64 YRS Influenza Virus 2022-02-27 Completed [facility], 00:00:00 [place] [facility] Preserv and ABX Branch Free 6 MO-64 YRS Influenza Virus 2022-02-27 Completed [facility], 00:00:00 [place] [facility] Preserv and ABX Branch Free 6 MO-64 YRS (FLUCELVAX) Influenza Virus 2022-02-27 Completed [facility], 00:00:00 [place] [facility] Preserv and ABX Branch Free 6 MO-64 YRS (FLUCELVAX) Influenza Virus 2022-02-27 Completed [facility], 00:00:00 [place] [facility] Preserv and ABX Branch Free 6 MO-64 YRS (FLUCELVAX) Pneumococcal 2021-05-29 Completed [facility] Polysaccharide, 00:00:00 [facility] PPSV23 (PNEUMOVAX) Branch Pneumococcal 2021-05-29 Completed [facility] Polysaccharide, 00:00:00 [place] [facility] PPSV23 (PNEUMOVAX) Branch Pneumococcal 2021-05-29 Completed [facility] Polysaccharide, 00:00:00 [place] [facility] PPSV23 (PNEUMOVAX) Branch Pneumococcal 2021-05-29 Completed [facility] Polys[facility], 00:00:00 [place] [facility] PPSV23 (PNEUMOVAX) Branch Pneumococcal 2021-05-29 Completed [facility] Polys[facility], 00:00:00 [place] [facility] PPSV23 (PNEUMOVAX) Branch Pneumococcal 2021-05-29 Completed [facility] Polysaccharide, 00:00:00 [place] [facility] PPSV23 (PNEUMOVAX) Branch Pneumococcal 2021-05-29 Completed [facility] Polysaccharide, 00:00:00 [place] [facility] PPSV23 (PNEUMOVAX) Branch Pneumococcal 2021-05-29 Completed [facility] Polysaccharide, 00:00:00 [place] [facility] PPSV23 (PNEUMOVAX) Branch Pneumococcal 2021-05-29 Completed [facility] Polysaccharide, 00:00:00 [place] [facility] PPSV23 (PNEUMOVAX) Branch Pneumococcal 2021-05-29 Completed [facility] Polysaccharide, 00:00:00 [place] [facility] PPSV23 (PNEUMOVAX) Branch Pneumococcal 2021-05-29 Completed [facility] Polysaccharide, 00:00:00 [place] [facility] PPSV23 (PNEUMOVAX) Branch Pneumococcal 2021-05-29 Completed [facility] Polysaccharide, 00:00:00 [place] [facility] PPSV23 (PNEUMOVAX) Branch Pneumococcal 2021-05-29 Completed [facility] Polysaccharide, 00:00:00 [place] [facility] PPSV23 (PNEUMOVAX) Branch Pneumococcal 2021-05-29 Completed [facility] Polysaccharide, 00:00:00 [place] [facility] PPSV23 (PNEUMOVAX) Branch Pneumococcal 2021-05-29 Completed [facility] Polysaccharide, 00:00:00 [place] [facility] PPSV23 (PNEUMOVAX) Branch Pneumococcal 2021-05-29 Completed [facility] Polysaccharide, 00:00:00 [place] [facility] PPSV23 (PNEUMOVAX) Branch Pneumococcal 2021-05-29 Completed [facility] Polysaccharide, 00:00:00 [place] [facility] PPSV23 (PNEUMOVAX) Branch Pneumococcal 2021-05-29 Completed [facility] Polysaccharide, 00:00:00 [place] [facility] PPSV23 (PNEUMOVAX) Branch Pneumococcal 2021-05-29 Completed [facility] Polysaccharide, 00:00:00 [place] [facility] PPSV23 (PNEUMOVAX) Branch Pneumococcal 2021-05-29 Completed [facility] Polysaccharide, 00:00:00 [place] [facility] PPSV23 (PNEUMOVAX) Branch Pneumococcal 2021-05-29 Completed [facility] Polysaccharide, 00:00:00 [place] [facility] PPSV23 (PNEUMOVAX) Branch Pneumococcal 2021-05-29 Completed [facility] Polysaccharide, 00:00:00 [place] [facility] PPSV23 (PNEUMOVAX) Branch Pneumococcal 2021-05-29 Completed [facility] Polysaccharide, 00:00:00 [place] [facility] PPSV23 (PNEUMOVAX) Branch Pneumococcal 2021-05-29 Completed [facility] Polysaccharide, 00:00:00 [place] [facility] PPSV23 (PNEUMOVAX) Branch Pneumococcal 2021-05-29 Completed [facility] Polysaccharide, 00:00:00 [place] [facility] PPSV23 (PNEUMOVAX) Branch Pneumococcal 2021-05-29 Completed [facility] Polysaccharide, 00:00:00 [place] [facility] PPSV23 (PNEUMOVAX) Branch Pneumococcal 2021-05-29 Completed [facility] Polysaccharide, 00:00:00 [place] [facility] PPSV23 (PNEUMOVAX) Branch Pneumococcal 2021-05-29 Completed [facility] Polysaccharide, 00:00:00 [place] [facility] PPSV23 (PNEUMOVAX) Branch Pneumococcal 2021-05-29 Completed [facility] Polysaccharide, 00:00:00 [place] [facility] PPSV23 (PNEUMOVAX) Branch Pneumococcal 2021-05-29 Completed [facility] Polysaccharide, 00:00:00 [place] [facility] PPSV23 (PNEUMOVAX) Branch Pneumococcal 2021-05-29 Completed [facility] Polysaccharide, 00:00:00 [place] [facility] PPSV23 (PNEUMOVAX) Branch Pneumococcal 2021-05-29 Completed [facility] Polysaccharide, 00:00:00 [place] [facility] PPSV23 (PNEUMOVAX) Branch Pneumococcal 2021-05-29 Completed [facility] Polysaccharide, 00:00:00 [place] [facility] PPSV23 (PNEUMOVAX) Branch Pneumococcal 2021-05-29 Completed [facility] Polysaccharide, 00:00:00 [place] [facility] PPSV23 (PNEUMOVAX) Branch Pneumococcal 2021-05-29 Completed [facility] Polysaccharide, 00:00:00 [place] [facility] PPSV23 (PNEUMOVAX) Branch Pneumococcal 2021-05-29 Completed [facility] Polysaccharide, 00:00:00 [place] [facility] PPSV23 (PNEUMOVAX) Branch Pneumococcal 2021-05-29 Completed [facility] Polysaccharide, 00:00:00 [place] [facility] PPSV23 (PNEUMOVAX) Branch Pneumococcal 2021-05-29 Completed [facility] Polysaccharide, 00:00:00 [place] [facility] PPSV23 (PNEUMOVAX) Branch Pneumococcal 2021-05-29 Completed [facility] Polysaccharide, 00:00:00 [place] [facility] PPSV23 (PNEUMOVAX) Branch Pneumococcal 2021-05-29 Completed [facility] Polysaccharide, 00:00:00 [place] [facility] PPSV23 (PNEUMOVAX) Branch Pneumococcal 2021-05-29 Completed [facility] Polysaccharide, 00:00:00 [place] [facility] PPSV23 (PNEUMOVAX) Branch Pneumococcal 2021-05-29 Completed [facility] Polysaccharide, 00:00:00 [place] [facility] PPSV23 (PNEUMOVAX) Branch Pneumococcal 2021-05-29 Completed [facility] Polysaccharide, 00:00:00 [place] [facility] PPSV23 (PNEUMOVAX) Branch Pneumococcal 2021-05-29 Completed [facility] Polysaccharide, 00:00:00 [place] [facility] PPSV23 (PNEUMOVAX) Branch Pneumococcal 2021-05-29 Completed [facility] Polysaccharide, 00:00:00 [place] [facility] PPSV23 (PNEUMOVAX) Branch Pneumococcal 2021-05-29 Completed [facility] Polysaccharide, 00:00:00 [place] [facility] PPSV23 (PNEUMOVAX) Branch Pneumococcal 2021-05-29 Completed [facility] Polysaccharide, 00:00:00 [place] [facility] PPSV23 (PNEUMOVAX) Branch Pneumococcal 2021-05-29 Completed [facility] Polysaccharide, 00:00:00 [place] [facility] PPSV23 (PNEUMOVAX) Branch Pneumococcal 2021-05-29 Completed [facility] Polysaccharide, 00:00:00 [place] [facility] PPSV23 (PNEUMOVAX) Branch Pneumococcal 2021-05-29 Completed [facility] Polysaccharide, 00:00:00 [place] [facility] PPSV23 (PNEUMOVAX) Branch Pneumococcal 2021-05-29 Completed [facility] Polysaccharide, 00:00:00 [place] [facility] PPSV23 (PNEUMOVAX) Branch Pneumococcal 2021-05-29 Completed [facility] Polysaccharide, 00:00:00 [place] [facility] PPSV23 (PNEUMOVAX) Branch Pneumococcal 2021-05-29 Completed [facility] Polysaccharide, 00:00:00 [place] [facility] PPSV23 (PNEUMOVAX) Branch Pneumococcal 2021-05-29 Completed [facility] Polysaccharide, 00:00:00 [place] [facility] PPSV23 (PNEUMOVAX) Branch Pneumococcal 2021-05-29 Completed [facility] Polysaccharide, 00:00:00 [place] [facility] PPSV23 (PNEUMOVAX) Branch Pneumococcal 2021-05-29 Completed [facility] Polysaccharide, 00:00:00 [place] [facility] PPSV23 (PNEUMOVAX) Branch Pneumococcal 2021-05-29 Completed [facility] Polysaccharide, 00:00:00 [place] [facility] PPSV23 (PNEUMOVAX) Branch Pneumococcal 2021-05-29 Completed [facility] Polysaccharide, 00:00:00 [place] [facility] PPSV23 (PNEUMOVAX) Branch Pneumococcal 2021-05-29 Completed [facility] Polysaccharide, 00:00:00 [place] [facility] PPSV23 (PNEUMOVAX) Branch Pneumococcal 2021-05-29 Completed [facility] Polysaccharide, 00:00:00 [place] [facility] PPSV23 (PNEUMOVAX) Branch Pneumococcal 2021-05-29 Completed [facility] Polysaccharide, 00:00:00 [place] [facility] PPSV23 (PNEUMOVAX) Branch Pneumococcal 2021-05-29 Completed [facility] Polysaccharide, 00:00:00 [place] [facility] PPSV23 (PNEUMOVAX) Branch Pneumococcal 2021-05-29 Completed [facility] Polysaccharide, 00:00:00 [place] [facility] PPSV23 (PNEUMOVAX) Branch Pneumococcal 2021-05-29 Completed [facility] Polysaccharide, 00:00:00 [place] [facility] PPSV23 (PNEUMOVAX) Branch Pneumococcal 2021-05-29 Completed [facility] Polysaccharide, 00:00:00 [place] [facility] PPSV23 (PNEUMOVAX) Branch Pneumococcal 2021-05-29 Completed [facility] Polysaccharide, 00:00:00 [place] [facility] PPSV23 (PNEUMOVAX) Branch Pneumococcal 2021-05-29 Completed [facility] Polysaccharide, 00:00:00 [place] [facility] PPSV23 (PNEUMOVAX) Branch Pneumococcal 2021-05-29 Completed [facility] Polysaccharide, 00:00:00 [place] [facility] PPSV23 (PNEUMOVAX) Branch Pneumococcal 2021-05-29 Completed [facility] Polysaccharide, 00:00:00 [place] [facility] PPSV23 (PNEUMOVAX) Branch Pneumococcal 2021-05-29 Completed [facility] Polysaccharide, 00:00:00 [place] [facility] PPSV23 (PNEUMOVAX) Branch Pneumococcal 2021-05-29 Completed [facility] Polysaccharide, 00:00:00 [place] [facility] PPSV23 (PNEUMOVAX) Branch Pneumococcal 2021-05-29 Completed [facility] Polysaccharide, 00:00:00 [place] [facility] PPSV23 (PNEUMOVAX) Branch Pneumococcal 2021-05-29 Completed [facility] Polysaccharide, 00:00:00 [place] [facility] PPSV23 (PNEUMOVAX) Branch Pneumococcal 2021-05-29 Completed [facility] Polysaccharide, 00:00:00 [place] [facility] PPSV23 (PNEUMOVAX) Branch Pneumococcal 2021-05-29 Completed [facility] Polysaccharide, 00:00:00 [place] [facility] PPSV23 (PNEUMOVAX) Branch Pneumococcal 2021-05-29 Completed [facility] Polysaccharide, 00:00:00 [place] [facility] PPSV23 (PNEUMOVAX) Branch Pneumococcal 2021-05-29 Completed [facility] Polysaccharide, 00:00:00 [place] [facility] PPSV23 (PNEUMOVAX) Branch Pneumococcal 2021-05-29 Completed [facility] Polysaccharide, 00:00:00 [place] [facility] PPSV23 (PNEUMOVAX) Branch Pneumococcal 2021-05-29 Completed [facility] Polysaccharide, 00:00:00 [place] [facility] PPSV23 (PNEUMOVAX) Branch Pneumococcal 2021-05-29 Completed [facility] Polysaccharide, 00:00:00 [place] [facility] PPSV23 (PNEUMOVAX) Branch Pneumococcal 2021-05-29 Completed [facility] Polysaccharide, 00:00:00 [place] [facility] PPSV23 (PNEUMOVAX) Branch Pneumococcal 2021-05-29 Completed [facility] Polysaccharide, 00:00:00 [place] [facility] PPSV23 (PNEUMOVAX) Branch Pneumococcal 2021-05-29 Completed [facility] Polysaccharide, 00:00:00 [place] [facility] PPSV23 (PNEUMOVAX) Branch Pneumococcal 2021-05-29 Completed [facility] Polysaccharide, 00:00:00 [place] [facility] PPSV23 (PNEUMOVAX) Branch Pneumococcal 2021-05-29 Completed [facility] Polysaccharide, 00:00:00 [place] [facility] PPSV23 (PNEUMOVAX) Branch Pneumococcal 2021-05-29 Completed [facility] Polysaccharide, 00:00:00 [place] [facility] PPSV23 (PNEUMOVAX) Branch Pneumococcal 2021-05-29 Completed [facility] Polysaccharide, 00:00:00 [place] [facility] PPSV23 (PNEUMOVAX) Branch Pneumococcal 2021-05-29 Completed [facility] Polysaccharide, 00:00:00 [place] [facility] PPSV23 (PNEUMOVAX) Branch Pneumococcal 2021-05-29 Completed [facility] Polysaccharide, 00:00:00 [place] [facility] PPSV23 (PNEUMOVAX) Branch Pneumococcal 2021-05-29 Completed [facility] Polysaccharide, 00:00:00 [place] [facility] PPSV23 (PNEUMOVAX) Branch Pneumococcal 2021-05-29 Completed [facility] Polysaccharide, 00:00:00 [place] [facility] PPSV23 (PNEUMOVAX) Branch Pneumococcal 2021-05-29 Completed [facility] Polysaccharide, 00:00:00 [place] [facility] PPSV23 (PNEUMOVAX) Branch Pneumococcal 2021-05-29 Completed [facility] Polysaccharide, 00:00:00 [place] [facility] PPSV23 (PNEUMOVAX) Branch Pneumococcal 2021-05-29 Completed [facility] Polysaccharide, 00:00:00 [place] [facility] PPSV23 (PNEUMOVAX) Branch Pneumococcal 2021-05-29 Completed [facility] Polysaccharide, 00:00:00 [place] [facility] PPSV23 (PNEUMOVAX) Branch Pneumococcal 2021-05-29 Completed [facility] Polysaccharide, 00:00:00 [place] [facility] PPSV23 (PNEUMOVAX) Branch Pneumococcal 2021-05-29 Completed [facility] Polysaccharide, 00:00:00 [place] [facility] PPSV23 (PNEUMOVAX) Branch Pneumococcal 2021-05-29 Completed [facility] Polysaccharide, 00:00:00 [place] [facility] PPSV23 (PNEUMOVAX) Branch Pneumococcal 2021-05-29 Completed [facility] Polysaccharide, 00:00:00 [place] [facility] PPSV23 (PNEUMOVAX) Branch Pneumococcal 2021-05-29 Completed [facility] Polysaccharide, 00:00:00 [place] [facility] PPSV23 (PNEUMOVAX) Branch Pneumococcal 2021-05-29 Completed [facility] Polysaccharide, 00:00:00 [place] [facility] PPSV23 (PNEUMOVAX) Branch Pneumococcal 2021-05-29 Completed [facility] Polysaccharide, 00:00:00 [place] [facility] PPSV23 (PNEUMOVAX) Branch Pneumococcal 2021-05-29 Completed [facility] Polysaccharide, 00:00:00 [place] [facility] PPSV23 (PNEUMOVAX) Branch Pneumococcal 2021-05-29 Completed [facility] Polysaccharide, 00:00:00 [place] [facility] PPSV23 (PNEUMOVAX) Branch Pneumococcal 2021-05-29 Completed [facility] Polysaccharide, 00:00:00 [place] [facility] PPSV23 (PNEUMOVAX) Branch Pneumococcal 2021-05-29 Completed [facility] Polysaccharide, 00:00:00 [place] [facility] PPSV23 (PNEUMOVAX) Branch Pneumococcal 2021-05-29 Completed [facility] Polysaccharide, 00:00:00 [place] [facility] PPSV23 (PNEUMOVAX) Branch Influenza Virus 2021-03-28 Completed [facility] Vaccine 00:00:00 [facility] Influenza Virus 2021-03-28 Completed [facility] Vaccine 00:00:00 [facility] Influenza Virus 2021-03-28 Completed [facility] Vaccine 00:00:00 [facility] Influenza Virus 2021-03-28 Completed [facility] Vaccine 00:00:00 [facility] Influenza Virus 2021-03-28 Completed [facility] Vaccine 00:00:00 [facility] Influenza Virus 2021-03-28 Completed [facility] Vaccine 00:00:00 [facility] Influenza Virus 2021-03-28 Completed [facility] Vaccine 00:00:00 [facility] Influenza Virus 2021-03-28 Completed [facility] Vaccine 00:00:00 [facility] Influenza Virus 2021-03-28 Completed [facility] Vaccine 00:00:00 [facility] Influenza Virus 2021-03-28 Completed [facility] Vaccine 00:00:00 [facility] Influenza Virus 2021-03-28 Completed [facility] Vaccine 00:00:00 [facility] Influenza Virus 2021-03-28 Completed [facility] Vaccine 00:00:00 [facility] Influenza Virus 2021-03-28 Completed [facility] Vaccine 00:00:00 [facility] Influenza Virus 2021-03-28 Completed [facility] Vaccine 00:00:00 [facility] Influenza Virus 2021-03-28 Completed [facility] Vaccine 00:00:00 [facility] Influenza Virus 2021-03-28 Completed [facility] Vaccine 00:00:00 [facility] Influenza Virus 2021-03-28 Completed [facility] Vaccine 00:00:00 [facility] Influenza Virus 2021-03-28 Completed [facility] Vaccine 00:00:00 [facility] Influenza Virus 2021-03-28 Completed [facility] Vaccine 00:00:00 [facility] Influenza Virus 2021-03-28 Completed [facility] Vaccine 00:00:00 [facility] Influenza Virus 2021-03-28 Completed [facility] Vaccine 00:00:00 [facility] Influenza Virus 2021-03-28 Completed [facility] Vaccine 00:00:00 [facility] Influenza Virus 2021-03-28 Completed [facility] Vaccine 00:00:00 [facility] Influenza Virus 2021-03-28 Completed [facility] Vaccine 00:00:00 [facility] Influenza Virus 2021-03-28 Completed [facility] Vaccine 00:00:00 [facility] Influenza Virus 2021-03-28 Completed [facility] Vaccine 00:00:00 [facility] Influenza Virus 2021-03-28 Completed [facility] Vaccine 00:00:00 [facility] Influenza Virus 2021-03-28 Completed [facility] Vaccine 00:00:00 [facility] Influenza Virus 2021-03-28 Completed [facility] Vaccine 00:00:00 [facility] Influenza Virus 2021-03-28 Completed [facility] Vaccine 00:00:00 [facility] Influenza Virus 2021-03-28 Completed [facility] Vaccine 00:00:00 [facility] Influenza Virus 2021-03-28 Completed [facility] Vaccine 00:00:00 [facility] Influenza Virus 2021-03-28 Completed [facility] Vaccine 00:00:00 [facility] Influenza Virus 2021-03-28 Completed [facility] Vaccine 00:00:00 [facility] Influenza Virus 2021-03-28 Completed [facility] Vaccine 00:00:00 [facility] Influenza Virus 2021-03-28 Completed [facility] Vaccine 00:00:00 [facility] Influenza Virus 2021-03-28 Completed [facility] Vaccine 00:00:00 [facility] Influenza Virus 2021-03-28 Completed [facility] Vaccine 00:00:00 [facility] Influenza Virus 2021-03-28 Completed [facility] of Vaccine 00:00:00 [facility] Influenza Virus 2021-03-28 Completed [facility] Vaccine 00:00:00 [facility] Influenza Virus 2021-03-28 Completed [facility] of Vaccine 00:00:00 [facility] Influenza Virus 2021-03-28 Completed [facility] of Vaccine 00:00:00 [facility] Influenza Virus 2021-03-28 Completed [facility] Vaccine 00:00:00 [facility] Influenza Virus 2021-03-28 Completed [facility] Vaccine 00:00:00 [facility] Influenza Virus 2021-03-28 Completed [facility] Vaccine 00:00:00 [facility] Influenza Virus 2021-03-28 Completed [facility] Vaccine 00:00:00 [facility] Influenza Virus 2021-03-28 Completed [facility] Vaccine 00:00:00 [facility] Influenza Virus 2021-03-28 Completed [facility] Vaccine 00:00:00 [facility] Influenza Virus 2021-03-28 Completed [facility] Vaccine 00:00:00 [facility] Influenza Virus 2021-03-28 Completed [facility] Vaccine 00:00:00 [facility] Influenza Virus 2021-03-28 Completed [facility] Vaccine 00:00:00 [facility] Influenza Virus 2021-03-28 Completed [facility] Vaccine 00:00:00 [facility] Influenza Virus 2021-03-28 Completed [facility] Vaccine 00:00:00 [facility] Influenza Virus 2021-03-28 Completed [facility] Vaccine 00:00:00 [facility] Influenza Virus 2021-03-28 Completed [facility] Vaccine 00:00:00 [facility] Influenza Virus 2021-03-28 Completed [facility] Vaccine 00:00:00 [facility] Influenza Virus 2021-03-28 Completed [facility] Vaccine 00:00:00 [facility] Influenza Virus 2021-03-28 Completed [facility] Vaccine 00:00:00 [facility] Influenza Virus 2021-03-28 Completed [facility] Vaccine 00:00:00 [facility] Influenza Virus 2021-03-28 Completed [facility] Vaccine 00:00:00 [facility] Influenza Virus 2021-03-28 Completed [facility] Vaccine 00:00:00 [facility] Influenza Virus 2021-03-28 Completed [facility] Vaccine 00:00:00 [facility] Influenza Virus 2021-03-28 Completed [facility] Vaccine 00:00:00 [facility] Influenza Virus 2021-03-28 Completed [facility] Vaccine 00:00:00 [facility] Influenza Virus 2021-03-28 Completed [facility] Vaccine 00:00:00 [facility] Influenza Virus 2021-03-28 Completed [facility] Vaccine 00:00:00 [facility] Influenza Virus 2021-03-28 Completed [facility] Vaccine 00:00:00 [facility] Influenza Virus 2021-03-28 Completed [facility] Vaccine 00:00:00 [facility] Influenza Virus 2021-03-28 Completed [facility] Vaccine 00:00:00 [facility] Influenza Virus 2021-03-28 Completed [facility] Vaccine 00:00:00 [facility] Influenza Virus 2021-03-28 Completed [facility] Vaccine 00:00:00 [facility] Influenza Virus 2021-03-28 Completed [facility] Vaccine 00:00:00 [facility] Influenza Virus 2021-03-28 Completed [facility] Vaccine 00:00:00 [facility] Influenza Virus 2021-03-28 Completed [facility] Vaccine 00:00:00 [facility] Influenza Virus 2021-03-28 Completed [facility] Vaccine 00:00:00 [place] [facility] Influenza Virus 2021-03-28 Completed [facility] Vaccine 00:00:00 [facility] Influenza Virus 2021-03-28 Completed [facility] Vaccine 00:00:00 [facility] Influenza Virus 2021-03-28 Completed [facility] Vaccine 00:00:00 [place] [facility] Influenza Virus 2021-03-28 Completed [facility] Vaccine 00:00:00 [facility] Influenza Virus 2021-03-28 Completed [facility] Vaccine 00:00:00 [facility] Influenza Virus 2021-03-28 Completed [facility] Vaccine 00:00:00 [facility] Influenza Virus 2021-03-28 Completed [facility] Vaccine 00:00:00 [facility] Influenza Virus 2021-03-28 Completed [facility] Vaccine 00:00:00 [facility] Influenza Virus 2021-03-28 Completed [facility] Vaccine 00:00:00 [facility] Influenza Virus 2021-03-28 Completed [facility] Vaccine 00:00:00 [facility] Influenza Virus 2021-03-28 Completed [facility] Vaccine 00:00:00 [facility] Influenza Virus 2021-03-28 Completed [facility] Vaccine 00:00:00 [facility] Influenza Virus 2021-03-28 Completed [facility] Vaccine 00:00:00 [facility] Influenza Virus 2021-03-28 Completed [facility] Vaccine 00:00:00 [facility] Influenza Virus 2021-03-28 Completed [facility] Vaccine 00:00:00 [facility] Influenza Virus 2021-03-28 Completed [facility] Vaccine 00:00:00 [facility] Influenza Virus 2021-03-28 Completed [facility] Vaccine 00:00:00 [facility] Influenza Virus 2021-03-28 Completed [facility] Vaccine 00:00:00 [facility] Influenza Virus 2021-03-28 Completed [facility] Vaccine 00:00:00 [facility] Influenza Virus 2021-03-28 Completed [facility] Vaccine 00:00:00 [facility] Influenza Virus 2021-03-28 Completed [facility] Vaccine 00:00:00 [facility] Influenza Virus 2021-03-28 Completed [facility] Vaccine 00:00:00 [facility] Influenza Virus 2021-03-28 Completed [facility] Vaccine 00:00:00 [facility] Influenza Virus 2021-03-28 Completed [facility] Vaccine 00:00:00 [facility] Influenza Virus 2021-03-28 Completed [facility] Vaccine 00:00:00 [facility] Influenza Virus 2021-03-28 Completed [facility] Vaccine 00:00:00 [facility] Influenza Virus 2021-03-28 Completed [facility] Vaccine 00:00:00 [facility] Influenza Virus 2021-03-28 Completed [facility] Vaccine 00:00:00 [facility] Influenza Virus 2021-03-28 Completed [facility] Vaccine 00:00:00 [facility] Influenza Virus 2021-03-28 Completed [facility] Vaccine 00:00:00 [facility] Influenza Virus 2021-03-28 Completed [facility] Vaccine 00:00:00 [facility] Influenza Virus 2021-03-28 Completed [facility] Vaccine 00:00:00 [facility] SARS-COV-2 COVID-19 2020-10-17 Completed Unive rsity of MODERNA 12+ YRS 00:00:00 [facility] ical VACCINE Branch SARS-COV-2 COVID-19 2020-10-17 Completed Unive rsity of MODERNA 12+ YRS 00:00:00 [facility] ical VACCINE Branch SARS-COV-2 COVID-19 2020-10-17 Completed [facility]ive rsity of MODERNA 12+ YRS 00:00:00 [facility] ical VACCINE Branch SARS-COV-2 COVID-19 2020-10-17 Completed [facility]ive rsity of MODERNA 12+ YRS 00:00:00 [facility] ical VACCINE Branch SARS-COV-2 COVID-19 2020-10-17 Completed Unive rsity of MODERNA 12+ YRS 00:00:00 [facility] ical VACCINE Branch SARS-COV-2 COVID-19 2020-10-17 Completed [facility]ive rsity of MODERNA 12+ YRS 00:00:00 [facility] ical VACCINE Branch SARS-COV-2 COVID-19 2020-10-17 Completed [facility]ive rsity of MODERNA 12+ YRS 00:00:00 [facility] ical VACCINE Branch SARS-COV-2 COVID-19 2020-10-17 Completed [facility]ive rsity of MODERNA 12+ YRS 00:00:00 [facility] ical VACCINE Branch SARS-COV-2 COVID-19 2020-10-17 Completed [facility]ive rsity of MODERNA 12+ YRS 00:00:00 [facility] ical VACCINE Branch SARS-COV-2 COVID-19 2020-10-17 Completed [facility] rsity of MODERNA 12+ YRS 00:00:00 [place] [facility] VACCINE [facility] SARS-COV-2 COVID-19 2020-10-17 Completed [facility] rsity of MODERNA 12+ YRS 00:00:00 [place] [facility] VACCINE [facility] SARS-COV-2 COVID-19 2020-10-17 Completed [facility] rsity of MODERNA 12+ YRS 00:00:00 [place] [facility] VACCINE [facility] SARS-COV-2 COVID-19 2020-10-17 Completed [facility] rsity of MODERNA 12+ YRS 00:00:00 [place] [facility] VACCINE [facility] SARS-COV-2 COVID-19 2020-10-17 Completed [facility] rsity of MODERNA 12+ YRS 00:00:00 [place] [facility] VACCINE [facility] SARS-COV-2 COVID-19 2020-10-17 Completed [facility]ive rsity of MODERNA 12+ YRS 00:00:00 [place] [facility] VACCINE [facility] SARS-COV-2 COVID-19 2020-10-17 Completed [facility] rsity of MODERNA 12+ YRS 00:00:00 [place] [facility] VACCINE [facility] SARS-COV-2 COVID-19 2020-10-17 Completed [facility] rsity of MODERNA 12+ YRS 00:00:00 [place] [facility] VACCINE [facility] SARS-COV-2 COVID-19 2020-10-17 Completed [facility] rsity of MODERNA 12+ YRS 00:00:00 [place] [facility] VACCINE [facility] SARS-COV-2 COVID-19 2020-10-17 Completed [facility]ive rsity of MODERNA 12+ YRS 00:00:00 [place] [facility] VACCINE [facility] SARS-COV-2 COVID-19 2020-10-17 Completed [facility] rsity of MODERNA 12+ YRS 00:00:00 [place] [facility] VACCINE [facility] SARS-COV-2 COVID-19 2020-10-17 Completed [facility] rsity of MODERNA 12+ YRS 00:00:00 [place] [facility] VACCINE [facility] SARS-COV-2 COVID-19 2020-10-17 Completed [facility] rsity of MODERNA 12+ YRS 00:00:00 [place] [facility] VACCINE [facility] SARS-COV-2 COVID-19 2020-10-17 Completed [facility] rsity of MODERNA 12+ YRS 00:00:00 [place] [facility] VACCINE [facility] SARS-COV-2 COVID-19 2020-10-17 Completed [facility] rsity of MODERNA 12+ YRS 00:00:00 [place] [facility] VACCINE [facility] SARS-COV-2 COVID-19 2020-10-17 Completed [facility] rsity of MODERNA 12+ YRS 00:00:00 [place] [facility] VACCINE [facility] SARS-COV-2 COVID-19 2020-10-17 Completed [facility] rsity of MODERNA 12+ YRS 00:00:00 [place] [facility] VACCINE [facility] SARS-COV-2 COVID-19 2020-10-17 Completed [facility] rsity of MODERNA 12+ YRS 00:00:00 [place] [facility] VACCINE [facility] SARS-COV-2 COVID-19 2020-10-17 Completed [facility] rsity of MODERNA 12+ YRS 00:00:00 [place] [facility] VACCINE [facility] SARS-COV-2 COVID-19 2020-10-17 Completed [facility] rsity of MODERNA 12+ YRS 00:00:00 [place] [facility] VACCINE [facility] SARS-COV-2 COVID-19 2020-10-17 Completed [facility] rsity of MODERNA 12+ YRS 00:00:00 [place] [facility] VACCINE [facility] SARS-COV-2 COVID-19 2020-10-17 Completed [facility] rsity of MODERNA 12+ YRS 00:00:00 [place] [facility] VACCINE [facility] SARS-COV-2 COVID-19 2020-10-17 Completed [facility]ive rsity of MODERNA 12+ YRS 00:00:00 [place] [facility] VACCINE [facility] SARS-COV-2 COVID-19 2020-10-17 Completed [facility] rsity of MODERNA 12+ YRS 00:00:00 [place] [facility] VACCINE [facility] SARS-COV-2 COVID-19 2020-10-17 Completed [facility] rsity of MODERNA 12+ YRS 00:00:00 [place] [facility] VACCINE [facility] SARS-COV-2 COVID-19 2020-10-17 Completed [facility] rsity of MODERNA 12+ YRS 00:00:00 [place] [facility] VACCINE [facility] SARS-COV-2 COVID-19 2020-10-17 Completed [facility] rsity of MODERNA 12+ YRS 00:00:00 [place] [facility] VACCINE [facility] SARS-COV-2 COVID-19 2020-10-17 Completed [facility] rsity of MODERNA 12+ YRS 00:00:00 [place] [facility] VACCINE [facility] SARS-COV-2 COVID-19 2020-10-17 Completed [facility] rsity of MODERNA 12+ YRS 00:00:00 [place] [facility] VACCINE [facility] SARS-COV-2 COVID-19 2020-10-17 Completed [facility] rsity of MODERNA 12+ YRS 00:00:00 [place] [facility] VACCINE [facility] SARS-COV-2 COVID-19 2020-10-17 Completed [facility] rsity of MODERNA 12+ YRS 00:00:00 [place] [facility] VACCINE [facility] SARS-COV-2 COVID-19 2020-10-17 Completed [facility]ive rsity of MODERNA 12+ YRS 00:00:00 [place] [facility] VACCINE [facility] SARS-COV-2 COVID-19 2020-10-17 Completed [facility]ive rsity of MODERNA 12+ YRS 00:00:00 [place] [facility] VACCINE [facility] SARS-COV-2 COVID-19 2020-10-17 Completed [facility] rsity of MODERNA 12+ YRS 00:00:00 [place] [facility] VACCINE [facility] SARS-COV-2 COVID-19 2020-10-17 Completed [facility] rsity of MODERNA 12+ YRS 00:00:00 [place] [facility] VACCINE [facility] SARS-COV-2 COVID-19 2020-10-17 Completed [facility] rsity of MODERNA 12+ YRS 00:00:00 [place] [facility] VACCINE [facility] SARS-COV-2 COVID-19 2020-10-17 Completed [facility] rsity of MODERNA 12+ YRS 00:00:00 [place] [facility] VACCINE [facility] SARS-COV-2 COVID-19 2020-10-17 Completed [facility] rsity of MODERNA 12+ YRS 00:00:00 [place] [facility] VACCINE [facility] SARS-COV-2 COVID-19 2020-10-17 Completed [facility] rsity of MODERNA 12+ YRS 00:00:00 [place] [facility] VACCINE [facility] SARS-COV-2 COVID-19 2020-10-17 Completed [facility] rsity of MODERNA 12+ YRS 00:00:00 [place] [facility] VACCINE [facility] SARS-COV-2 COVID-19 2020-10-17 Completed [facility] rsity of MODERNA 12+ YRS 00:00:00 [place] [facility] VACCINE [facility] SARS-COV-2 COVID-19 2020-10-17 Completed [facility] rsity of MODERNA 12+ YRS 00:00:00 [place] [facility] VACCINE [facility] SARS-COV-2 COVID-19 2020-10-17 Completed [facility] rsity of MODERNA 12+ YRS 00:00:00 [place] [facility] VACCINE [facility] SARS-COV-2 COVID-19 2020-10-17 Completed [facility] rsity of MODERNA 12+ YRS 00:00:00 [place] [facility] VACCINE [facility] SARS-COV-2 COVID-19 2020-10-17 Completed [facility] rsity of MODERNA 12+ YRS 00:00:00 [place] [facility] VACCINE [facility] SARS-COV-2 COVID-19 2020-10-17 Completed [facility] rsity of MODERNA 12+ YRS 00:00:00 [place] [facility] VACCINE [facility] SARS-COV-2 COVID-19 2020-10-17 Completed [facility] rsity of MODERNA 12+ YRS 00:00:00 [place] [facility] VACCINE [facility] SARS-COV-2 COVID-19 2020-10-17 Completed [facility] rsity of MODERNA 12+ YRS 00:00:00 [place] [facility] VACCINE [facility] SARS-COV-2 COVID-19 2020-10-17 Completed [facility] rsity of MODERNA 12+ YRS 00:00:00 [place] [facility] VACCINE [facility] SARS-COV-2 COVID-19 2020-10-17 Completed [facility] rsity of MODERNA 12+ YRS 00:00:00 [place] [facility] VACCINE [facility] SARS-COV-2 COVID-19 2020-10-17 Completed [facility]ive rsity of MODERNA 12+ YRS 00:00:00 [place] [facility] VACCINE [facility] SARS-COV-2 COVID-19 2020-10-17 Completed [facility] rsity of MODERNA 12+ YRS 00:00:00 [place] [facility] VACCINE [facility] SARS-COV-2 COVID-19 2020-10-17 Completed [facility] rsity of MODERNA 12+ YRS 00:00:00 [place] [facility] VACCINE [facility] SARS-COV-2 COVID-19 2020-10-17 Completed [facility] rsity of MODERNA 12+ YRS 00:00:00 [place] [facility] VACCINE [facility] SARS-COV-2 COVID-19 2020-10-17 Completed [facility] rsity of MODERNA 12+ YRS 00:00:00 [place] [facility] VACCINE [facility] SARS-COV-2 COVID-19 2020-10-17 Completed [facility] rsity of MODERNA 12+ YRS 00:00:00 [place] [facility] VACCINE [facility] SARS-COV-2 COVID-19 2020-10-17 Completed [facility] rsity of MODERNA 12+ YRS 00:00:00 [place] [facility] VACCINE [facility] SARS-COV-2 COVID-19 2020-10-17 Completed [facility] rsity of MODERNA 12+ YRS 00:00:00 [place] [facility] VACCINE [facility] SARS-COV-2 COVID-19 2020-10-17 Completed [facility] rsity of MODERNA 12+ YRS 00:00:00 [place] [facility] VACCINE [facility] SARS-COV-2 COVID-19 2020-10-17 Completed [facility] rsity of MODERNA 12+ YRS 00:00:00 [place] [facility] VACCINE [facility] SARS-COV-2 COVID-19 2020-10-17 Completed [facility] rsity of MODERNA 12+ YRS 00:00:00 [place] [facility] VACCINE [facility] SARS-COV-2 COVID-19 2020-10-17 Completed [facility] rsity of MODERNA 12+ YRS 00:00:00 [place] [facility] VACCINE [facility] SARS-COV-2 COVID-19 2020-10-17 Completed [facility] rsity of MODERNA 12+ YRS 00:00:00 [place] [facility] VACCINE [facility] SARS-COV-2 COVID-19 2020-10-17 Completed [facility] rsity of MODERNA 12+ YRS 00:00:00 [place] [facility] VACCINE [facility] SARS-COV-2 COVID-19 2020-10-17 Completed [facility] rsity of MODERNA 12+ YRS 00:00:00 [place] [facility] VACCINE [facility] SARS-COV-2 COVID-19 2020-10-17 Completed [facility] rsity of MODERNA 12+ YRS 00:00:00 [place] [facility] VACCINE [facility] SARS-COV-2 COVID-19 2020-10-17 Completed [facility] rsity of MODERNA 12+ YRS 00:00:00 [place] [facility] VACCINE [facility] SARS-COV-2 COVID-19 2020-10-17 Completed [facility] rsity of MODERNA 12+ YRS 00:00:00 [place] [facility] VACC[facility] SARS-COV-2 COVID-19 2020-10-17 Completed [facility] rsity of MODERNA 12+ YRS 00:00:00 [place] [facility] VACCINE [facility] SARS-COV-2 COVID-19 2020-10-17 Completed [facility] rsity of MODERNA 12+ YRS 00:00:00 [place] [facility] VACCINE [facility] SARS-COV-2 COVID-19 2020-10-17 Completed [facility] rsity of MODERNA 12+ YRS 00:00:00 [place] [facility] VACCINE [facility] SARS-COV-2 COVID-19 2020-10-17 Completed [facility] rsity of MODERNA 12+ YRS 00:00:00 [place] [facility] VACCINE [facility] SARS-COV-2 COVID-19 2020-10-17 Completed [facility] rsity of MODERNA 12+ YRS 00:00:00 [place] [facility] VACCINE [facility] SARS-COV-2 COVID-19 2020-10-17 Completed [facility] rsity of MODERNA 12+ YRS 00:00:00 [place] [facility] VACCINE [facility] SARS-COV-2 COVID-19 2020-10-17 Completed [facility] rsity of MODERNA 12+ YRS 00:00:00 [place] [facility] VACCINE [facility] SARS-COV-2 COVID-19 2020-10-17 Completed [facility] rsity of MODERNA 12+ YRS 00:00:00 [place] [facility] VACCINE [facility] SARS-COV-2 COVID-19 2020-10-17 Completed [facility] rsity of MODERNA 12+ YRS 00:00:00 [place] [facility] VACCINE [facility] SARS-COV-2 COVID-19 2020-10-17 Completed [facility] rsity of MODERNA 12+ YRS 00:00:00 [place] [facility] VACCINE [facility] SARS-COV-2 COVID-19 2020-10-17 Completed [facility] rsity of MODERNA 12+ YRS 00:00:00 [place] [facility] VACCINE [facility] SARS-COV-2 COVID-19 2020-10-17 Completed [facility] rsity of MODERNA 12+ YRS 00:00:00 [place] [facility] VACCINE [facility] SARS-COV-2 COVID-19 2020-10-17 Completed [facility] rsity of MODERNA 12+ YRS 00:00:00 [place] [facility] VACCINE [facility] SARS-COV-2 COVID-19 2020-10-17 Completed [facility] rsity of MODERNA 12+ YRS 00:00:00 [place] [facility]ACC[facility] SARS-COV-2 COVID-19 2020-10-17 Completed [facility] rsity of MODERNA 12+ YRS 00:00:00 [place] [facility]ACC[facility] SARS-COV-2 COVID-19 2020-10-17 Completed [facility] rsity of MODERNA 12+ YRS 00:00:00 [place] [facility]ACC[facility] SARS-COV-2 COVID-19 2020-10-17 Completed [facility]ity of MODERNA 12+ YRS 00:00:00 [place] [facility]ACC[facility] SARS-COV-2 COVID-19 2020-10-17 Completed [facility] rsity of MODERNA 12+ YRS 00:00:00 [place] [facility]ACC[facility] SARS-COV-2 COVID-19 2020-10-17 Completed [facility]ity of MODERNA 12+ YRS 00:00:00 [place] [facility]ACC[facility] SARS-COV-2 COVID-19 2020-10-17 Completed [facility]ity of MODERNA 12+ YRS 00:00:00 [place] [facility] VACC[facility] SARS-COV-2 COVID-19 2020-10-17 Completed [facility]ity of MODERNA 12+ YRS 00:00:00 [place] [facility]ACC[facility] SARS-COV-2 COVID-19 2020-10-17 Completed [facility] rsity of MODERNA 12+ YRS 00:00:00 [place] [facility]ACC[facility] SARS-COV-2 COVID-19 2020-10-17 Completed [facility]ity of MODERNA 12+ YRS 00:00:00 [place] [facility]ACC[facility] SARS-COV-2 COVID-19 2020-10-17 Completed [facility]ity of MODERNA 12+ YRS 00:00:00 [place] [facility]ACC[facility] SARS-COV-2 COVID-19 2020-10-17 Completed [facility]ity of MODERNA 12+ YRS 00:00:00 [place] [facility]ACC[facility] SARS-COV-2 COVID-19 2020-10-17 Completed [facility]ity of MODERNA 12+ YRS 00:00:00 [place] [facility]ACC[facility] SARS-COV-2 COVID-19 2020-10-17 Completed [facility]ity of MODERNA 12+ YRS 00:00:00 [place] [facility] SARS-COV-2 COVID-19 2020-10-17 Completed [facility]ity of MODERNA 12+ YRS 00:00:00 [place] [facility]ACC[facility] SARS-COV-2 COVID-19 2020-10-17 Completed [facility]ity of MODERNA 12+ YRS 00:00:00 [place] [facility]ACC[facility] SARS-COV-2 COVID-19 2020-10-17 Completed [facility]ity of MODERNA 12+ YRS 00:00:00 [place] [facility]ACC[facility] SARS-COV-2 COVID-19 2020-08-15 Completed [facility]ity of MODERNA 12+ YRS 00:00:00 [place] [facility] SARS-COV-2 COVID-19 2020-08-15 Completed [facility] of MODERNA 12+ YRS 00:00:00 [place] [facility]ACC[facility] SARS-COV-2 COVID-19 2020-08-15 Completed [facility]ity of MODERNA 12+ YRS 00:00:00 [place] [facility] SARS-COV-2 COVID-19 2020-08-15 Completed [facility]ity of MODERNA 12+ YRS 00:00:00 [place] [facility] SARS-COV-2 COVID-19 2020-08-15 Completed [facility]ity of MODERNA 12+ YRS 00:00:00 [place] [facility] SARS-COV-2 COVID-19 2020-08-15 Completed [facility]ity of MODERNA 12+ YRS 00:00:00 [place] [facility] SARS-COV-2 COVID-19 2020-08-15 Completed [facility]ity of MODERNA 12+ YRS 00:00:00 [place] [facility] SARS-COV-2 COVID-19 2020-08-15 Completed [facility]ity of MODERNA 12+ YRS 00:00:00 [place] [facility] SARS-COV-2 COVID-19 2020-08-15 Completed [facility]ity of MODERNA 12+ YRS 00:00:00 [place] [facility] SARS-COV-2 COVID-19 2020-08-15 Completed [facility]ity of MODERNA 12+ YRS 00:00:00 [place] [facility] SARS-COV-2 COVID-19 2020-08-15 Completed [facility] of MODERNA 12+ YRS 00:00:00 [place] [facility] SARS-COV-2 COVID-19 2020-08-15 Completed [facility] of MODERNA 12+ YRS 00:00:00 [place] [facility] SARS-COV-2 COVID-19 2020-08-15 Completed [facility] of MODERNA 12+ YRS 00:00:00 [place] [facility] SARS-COV-2 COVID-19 2020-08-15 Completed [facility] of MODERNA 12+ YRS 00:00:00 [place] [facility] SARS-COV-2 COVID-19 2020-08-15 Completed [facility] of MODERNA 12+ YRS 00:00:00 [place] [facility] SARS-COV-2 COVID-19 2020-08-15 Completed [facility] of MODERNA 12+ YRS 00:00:00 [place] [facility] SARS-COV-2 COVID-19 2020-08-15 Completed [facility] of MODERNA 12+ YRS 00:00:00 [place] [facility] SARS-COV-2 COVID-19 2020-08-15 Completed [facility]ity of MODERNA 12+ YRS 00:00:00 [place] [facility] SARS-COV-2 COVID-19 2020-08-15 Completed [facility] of MODERNA 12+ YRS 00:00:00 [place] [facility] SARS-COV-2 COVID-19 2020-08-15 Completed [facility] of MODERNA 12+ YRS 00:00:00 [place] [facility] SARS-COV-2 COVID-19 2020-08-15 Completed [facility] of MODERNA 12+ YRS 00:00:00 [place] [facility] SARS-COV-2 COVID-19 2020-08-15 Completed [facility] of MODERNA 12+ YRS 00:00:00 [place] [facility] SARS-COV-2 COVID-19 2020-08-15 Completed [facility] of MODERNA 12+ YRS 00:00:00 [place] [facility] SARS-COV-2 COVID-19 2020-08-15 Completed [facility] of MODERNA 12+ YRS 00:00:00 [place] [facility] SARS-COV-2 COVID-19 2020-08-15 Completed [facility] of MODERNA 12+ YRS 00:00:00 [place] [facility] SARS-COV-2 COVID-19 2020-08-15 Completed [facility] of MODERNA 12+ YRS 00:00:00 [place] [facility] SARS-COV-2 COVID-19 2020-08-15 Completed [facility] of MODERNA 12+ YRS 00:00:00 [place] [facility] SARS-COV-2 COVID-19 2020-08-15 Completed [facility] of MODERNA 12+ YRS 00:00:00 [place] [facility] SARS-COV-2 COVID-19 2020-08-15 Completed [facility] of MODERNA 12+ YRS 00:00:00 [place] [facility] SARS-COV-2 COVID-19 2020-08-15 Completed [facility] of MODERNA 12+ YRS 00:00:00 [place] [facility] SARS-COV-2 COVID-19 2020-08-15 Completed [facility] of MODERNA 12+ YRS 00:00:00 [place] [facility] SARS-COV-2 COVID-19 2020-08-15 Completed [facility] of MODERNA 12+ YRS 00:00:00 [place] [facility] SARS-COV-2 COVID-19 2020-08-15 Completed [facility] of MODERNA 12+ YRS 00:00:00 [place] [facility] SARS-COV-2 COVID-19 2020-08-15 Completed [facility] of MODERNA 12+ YRS 00:00:00 [place] [facility] SARS-COV-2 COVID-19 2020-08-15 Completed [facility] of MODERNA 12+ YRS 00:00:00 [place] [facility] SARS-COV-2 COVID-19 2020-08-15 Completed [facility] of MODERNA 12+ YRS 00:00:00 [place] [facility] SARS-COV-2 COVID-19 2020-08-15 Completed [facility] of MODERNA 12+ YRS 00:00:00 [place] [facility] SARS-COV-2 COVID-19 2020-08-15 Completed [facility] of MODERNA 12+ YRS 00:00:00 [place] [facility] SARS-COV-2 COVID-19 2020-08-15 Completed [facility] of MODERNA 12+ YRS 00:00:00 [place] [facility] SARS-COV-2 COVID-19 2020-08-15 Completed [facility] of MODERNA 12+ YRS 00:00:00 [place] [facility] SARS-COV-2 COVID-19 2020-08-15 Completed [facility] of MODERNA 12+ YRS 00:00:00 [place] [facility] SARS-COV-2 COVID-19 2020-08-15 Completed [facility] of MODERNA 12+ YRS 00:00:00 [place] [facility] SARS-COV-2 COVID-19 2020-08-15 Completed [facility] of MODERNA 12+ YRS 00:00:00 [place] [facility] SARS-COV-2 COVID-19 2020-08-15 Completed [facility] of MODERNA 12+ YRS 00:00:00 [place] [facility] SARS-COV-2 COVID-19 2020-08-15 Completed [facility] of MODERNA 12+ YRS 00:00:00 [place] [facility] SARS-COV-2 COVID-19 2020-08-15 Completed [facility] of MODERNA 12+ YRS 00:00:00 [place] [facility] SARS-COV-2 COVID-19 2020-08-15 Completed [facility] of MODERNA 12+ YRS 00:00:00 [place] [facility] SARS-COV-2 COVID-19 2020-08-15 Completed [facility] of MODERNA 12+ YRS 00:00:00 [place] [facility] SARS-COV-2 COVID-19 2020-08-15 Completed [facility] of MODERNA 12+ YRS 00:00:00 [place] [facility] SARS-COV-2 COVID-19 2020-08-15 Completed [facility] of MODERNA 12+ YRS 00:00:00 [place] [facility] SARS-COV-2 COVID-19 2020-08-15 Completed [facility] of MODERNA 12+ YRS 00:00:00 [place] [facility] SARS-COV-2 COVID-19 2020-08-15 Completed [facility] of MODERNA 12+ YRS 00:00:00 [place] [facility] SARS-COV-2 COVID-19 2020-08-15 Completed [facility] of MODERNA 12+ YRS 00:00:00 [place] [facility] SARS-COV-2 COVID-19 2020-08-15 Completed [facility] of MODERNA 12+ YRS 00:00:00 [place] [facility] SARS-COV-2 COVID-19 2020-08-15 Completed [facility] of MODERNA 12+ YRS 00:00:00 [place] [facility] SARS-COV-2 COVID-19 2020-08-15 Completed [facility] of MODERNA 12+ YRS 00:00:00 [place] [facility] SARS-COV-2 COVID-19 2020-08-15 Completed [facility] of MODERNA 12+ YRS 00:00:00 [place] [facility] SARS-COV-2 COVID-19 2020-08-15 Completed [facility]ive [facility] of MODERNA 12+ YRS 00:00:00 [place] [facility] SARS-COV-2 COVID-19 2020-08-15 Completed [facility]ER[facility] 12+ YRS 00:00:00 [place] [facility] SARS-COV-2 COVID-19 2020-08-15 Completed [facility]ERNA 12+ YRS 00:00:00 [place] [facility] SARS-COV-2 COVID-19 2020-08-15 Completed [facility] MODERNA 12+ YRS 00:00:00 [place] [facility] SARS-COV-2 COVID-19 2020-08-15 Completed [facility] MODERNA 12+ YRS 00:00:00 [place] [facility] SARS-COV-2 COVID-19 2020-08-15 Completed [facility] MODERNA 12+ YRS 00:00:00 [place] [facility] SARS-COV-2 COVID-19 2020-08-15 Completed [facility] MODERNA 12+ YRS 00:00:00 [place] [facility] SARS-COV-2 COVID-19 2020-08-15 Completed [facility]ER[facility] 12+ YRS 00:00:00 [place] [facility] SARS-COV-2 COVID-19 2020-08-15 Completed [facility]ER[facility] 12+ YRS 00:00:00 [place] [facility] SARS-COV-2 COVID-19 2020-08-15 Completed [facility] MODERNA 12+ YRS 00:00:00 [place] [facility] SARS-COV-2 COVID-19 2020-08-15 Completed [facility] MODERNA 12+ YRS 00:00:00 [place] [facility] SARS-COV-2 COVID-19 2020-08-15 Completed [facility]ER[facility] 12+ YRS 00:00:00 [place] [facility] SARS-COV-2 COVID-19 2020-08-15 Completed [facility] MODERNA 12+ YRS 00:00:00 [place] [facility] SARS-COV-2 COVID-19 2020-08-15 Completed [facility] MODERNA 12+ YRS 00:00:00 [place] [facility] SARS-COV-2 COVID-19 2020-08-15 Completed [facility] MODERNA 12+ YRS 00:00:00 [place] [facility] SARS-COV-2 COVID-19 2020-08-15 Completed [facility]ERNA 12+ YRS 00:00:00 [place] [facility] SARS-COV-2 COVID-19 2020-08-15 Completed [facility]ERNA 12+ YRS 00:00:00 [place] [facility] SARS-COV-2 COVID-19 2020-08-15 Completed [facility]ER[facility] 12+ YRS 00:00:00 [place] [facility] SARS-COV-2 COVID-19 2020-08-15 Completed [facility] MODERNA 12+ YRS 00:00:00 [place] [facility] SARS-COV-2 COVID-19 2020-08-15 Completed [facility] MODERNA 12+ YRS 00:00:00 [place] [facility] SARS-COV-2 COVID-19 2020-08-15 Completed [facility] MODERNA 12+ YRS 00:00:00 [place] [facility] SARS-COV-2 COVID-19 2020-08-15 Completed [facility] MODERNA 12+ YRS 00:00:00 [place] [facility] SARS-COV-2 COVID-19 2020-08-15 Completed [facility] MODERNA 12+ YRS 00:00:00 [place] [facility] SARS-COV-2 COVID-19 2020-08-15 Completed [facility] MODERNA 12+ YRS 00:00:00 [place] [facility] SARS-COV-2 COVID-19 2020-08-15 Completed [facility]ERNA 12+ YRS 00:00:00 [place] [facility] SARS-COV-2 COVID-19 2020-08-15 Completed [facility]ER[facility] 12+ YRS 00:00:00 [place] [facility] SARS-COV-2 COVID-19 2020-08-15 Completed [facility]ERNA 12+ YRS 00:00:00 [place] [facility] SARS-COV-2 COVID-19 2020-08-15 Completed [facility] MODERNA 12+ YRS 00:00:00 [place] [facility] SARS-COV-2 COVID-19 2020-08-15 Completed [facility] MODERNA 12+ YRS 00:00:00 [place] [facility] SARS-COV-2 COVID-19 2020-08-15 Completed [facility] MODERNA 12+ YRS 00:00:00 [place] [facility] SARS-COV-2 COVID-19 2020-08-15 Completed [facility]ERNA 12+ YRS 00:00:00 [place] [facility] SARS-COV-2 COVID-19 2020-08-15 Completed [facility] MODERNA 12+ YRS 00:00:00 [place] [facility] SARS-COV-2 COVID-19 2020-08-15 Completed [facility] MODERNA 12+ YRS 00:00:00 [place] [facility] SARS-COV-2 COVID-19 2020-08-15 Completed [facility] MODERNA 12+ YRS 00:00:00 [place] [facility] SARS-COV-2 COVID-19 2020-08-15 Completed [facility] MODERNA 12+ YRS 00:00:00 [place] [facility] SARS-COV-2 COVID-19 2020-08-15 Completed [facility] MODERNA 12+ YRS 00:00:00 [place] [facility] SARS-COV-2 COVID-19 2020-08-15 Completed [facility] of MODERNA 12+ YRS 00:00:00 [place] [facility] SARS-COV-2 COVID-19 2020-08-15 Completed [facility] MODERNA 12+ YRS 00:00:00 [place] [facility] SARS-COV-2 COVID-19 2020-08-15 Completed [facility] MODERNA 12+ YRS 00:00:00 [place] [facility] SARS-COV-2 COVID-19 2020-08-15 Completed [facility] of MODERNA 12+ YRS 00:00:00 [place] [facility] SARS-COV-2 COVID-19 2020-08-15 Completed [facility] of MODERNA 12+ YRS 00:00:00 [place] [facility] SARS-COV-2 COVID-19 2020-08-15 Completed [facility] of MODERNA 12+ YRS 00:00:00 [place] [facility] SARS-COV-2 COVID-19 2020-08-15 Completed [facility] of MODERNA 12+ YRS 00:00:00 [place] [facility] SARS-COV-2 COVID-19 2020-08-15 Completed [facility] of MODERNA 12+ YRS 00:00:00 [place] [facility] SARS-COV-2 COVID-19 2020-08-15 Completed [facility] of MODERNA 12+ YRS 00:00:00 [place] [facility] SARS-COV-2 COVID-19 2020-08-15 Completed [facility] of MODERNA 12+ YRS 00:00:00 [place] [facility] SARS-COV-2 COVID-19 2020-08-15 Completed [facility] of [facility]ERNA 12+ YRS 00:00:00 [place] [facility] SARS-COV-2 COVID-19 2020-08-15 Completed [facility] of MODERNA 12+ YRS 00:00:00 [place] [facility] SARS-COV-2 COVID-19 2020-08-15 Completed [facility] MODERNA 12+ YRS 00:00:00 [place] [facility] SARS-COV-2 COVID-19 2020-08-15 Completed [facility] of MODERNA 12+ YRS 00:00:00 [place] [facility] SARS-COV-2 COVID-19 Unknown Completed [facility] of MODERNA 12+ YRS [place] [facility] SARS-COV-2 COVID-19 Unknown Completed [facility]ER[facility] 12+ YRS [place] [facility] Influenza Virus Unknown Completed [facility] Vaccine [facility] Pneumococcal Unknown Completed [facility] f Polysaccharide, [place] [facility] PPSV23 (PNEUMOVAX) Branch Influenza Virus Unknown Completed [facility] Vaccine [facility], [facility] dical Preserv and ABX Branch Free 6 MO-64 YRS (FLUCELVAX) SARS-COV-2 COVID-19 Unknown Completed [facility] of MODERNA 12+ YRS [place] [facility] SARS-COV-2 COVID-19 Unknown Completed [facility] of MODERNA 12+ YRS [place] [facility] Influenza Virus Unknown Completed [facility] Vaccine [facility] Pneumococcal Unknown Completed [facility] o f Polysaccharide, [place] [facility] PPSV23 (PNEUMOVAX) Branch Influenza Virus Unknown Completed [facility] Vaccine [facility], [facility] dical Preserv and ABX Branch Free 6 MO-64 YRS (FLUCELVAX) SARS-COV-2 COVID-19 Unknown Completed [facility] of MODERNA 12+ YRS [place] [facility] SARS-COV-2 COVID-19 Unknown Completed [facility] of MODERNA 12+ YRS [place] [facility] Influenza Virus Unknown Completed [facility] Pneumococcal Unknown Completed [facility] f Polysaccharide, [place] [facility] PPSV23 (PNEUMOVAX) Branch Influenza Virus Unknown Completed [facility] Vaccine [facility], [facility] dical Preserv and ABX Branch Free 6 MO-64 YRS (FLUCELVAX) SARS-COV-2 COVID-19 Unknown Completed [facility] of MODERNA 12+ YRS [place] [facility] SARS-COV-2 COVID-19 Unknown Completed [facility] of [facility]ERNA 12+ YRS [place] [facility] Influenza Virus Unknown Completed [facility] Pneumococcal Unknown Completed [facility] o f Polysaccharide, [place] [facility] PPSV23 (PNEUMOVAX) Branch Influenza Virus Unknown Completed [facility] Vaccine [facility], [facility] dical Preserv and ABX Branch Free 6 MO-64 YRS (FLUCELVAX) SARS-COV-2 COVID-19 Unknown Completed [facility] of MODERNA 12+ YRS [place] [facility] SARS-COV-2 COVID-19 Unknown Completed [facility] of [facility]ERNA 12+ YRS [place] [facility] Influenza Virus Unknown Completed [facility] Vacc[facility] Pneumococcal Unknown Completed [facility] f Polysaccharide, [place] [facility] PPSV23 (PNEUMOVAX) Branch Influenza Virus Unknown Completed [facility] Vaccine [facility], [facility] dical Preserv and ABX Branch Free 6 MO-64 YRS (FLUCELVAX) SARS-COV-2 COVID-19 Unknown Completed [facility] of MODERNA 12+ YRS [place] [facility] SARS-COV-2 COVID-19 Unknown Completed [facility] of MODERNA 12+ YRS [place] [facility] Influenza Virus Unknown Completed [facility] Vacc[facility] Pneumococcal Unknown Completed [facility] o f Polysaccharide, [place] [facility] PPSV23 (PNEUMOVAX) Branch Influenza Virus Unknown Completed [facility] Vaccine [facility], [facility] dical Preserv and ABX Branch Free 6 MO-64 YRS (FLUCELVAX) SARS-COV-2 COVID-19 Unknown Completed [facility] of MODERNA 12+ YRS [place] [facility] SARS-COV-2 COVID-19 Unknown Completed [facility] of MODERNA 12+ YRS [place] [facility]ACCINE [facility] Influenza Virus Unknown Completed [facility] Vacc[facility] Pneumococcal Unknown Completed [facility] o f Polysaccharide, [place] [facility] PPSV23 (PNEUMOVAX) Branch Influenza Virus Unknown Completed [facility] Vaccine [facility], [facility] dical Preserv and ABX Branch Free 6 MO-64 YRS (FLUCELVAX) SARS-COV-2 COVID-19 Unknown Completed [facility] of MODERNA 12+ YRS [place] [facility] SARS-COV-2 COVID-19 Unknown Completed [facility] of [facility]ERNA 12+ YRS [place] [facility]ACCINE [facility] Influenza Virus Unknown Completed [facility] Vaccine [facility] Pneumococcal Unknown Completed [facility] o f Polysaccharide, [place] [facility] PPSV23 (PNEUMOVAX) Branch Influenza Virus Unknown Completed [facility] Vaccine [facility], [facility] dical Preserv and ABX Branch Free 6 MO-64 YRS (FLUCELVAX) SARS-COV-2 COVID-19 Unknown Completed [facility] of MODERNA 12+ YRS [place] [facility] SARS-COV-2 COVID-19 Unknown Completed [facility] of MODERNA 12+ YRS [place] [facility]ACC[facility] Influenza Virus Unknown Completed [facility] Vaccine [facility] Pneumococcal Unknown Completed [facility] o f Polysaccharide, [facility] ical PPSV23 (PNEUMOVAX) Branch Influenza Virus Unknown Completed [facility] of Vaccine [facility], [facility] dical Preserv and ABX Branch Free 6 MO-64 YRS (FLUCELVAX) SARS-COV-2 COVID-19 Unknown Completed [facility] of MODERNA 12+ YRS [place] [facility] SARS-COV-2 COVID-19 Unknown Completed [facility] of MODERNA 12+ YRS [place] [facility] Influenza Virus Unknown Completed [facility] Vaccine [facility] Pneumococcal Unknown Completed [facility] o f Polysaccharide, [facility] ical PPSV23 (PNEUMOVAX) Branch Influenza Virus Unknown Completed [facility] of Vaccine [facility], [facility] dical Preserv and ABX Branch Free 6 MO-64 YRS (FLUCELVAX) SARS-COV-2 COVID-19 Unknown Completed [facility]ive rs[facility] of MODERNA 12+ YRS [place] [facility] SARS-COV-2 COVID-19 Unknown Completed [facility] rs[facility] of MODERNA 12+ YRS [place] [facility]ACC[facility] Influenza Virus Unknown Completed [facility] Vaccine [facility] Pneumococcal Unknown Completed [facility] o f Polysaccharide, [facility] ical PPSV23 (PNEUMOVAX) Branch Influenza Virus Unknown Completed [facility] of Vaccine [facility] IM, [facility] dical Preserv and ABX Branch Free 6 MO-64 YRS (FLUCELVAX) SARS-COV-2 COVID-19 Unknown Completed Unive rsity of MODERNA 12+ YRS [facility] ical VACCINE Branch SARS-COV-2 COVID-19 Unknown Completed [facility]ive rs[facility] of MODERNA 12+ YRS [place] [facility] Influenza Virus Unknown Completed [facility] Vaccine [facility] Pneumococcal Unknown Completed [facility] o f Polysaccharide, [facility] ical PPSV23 (PNEUMOVAX) Branch Influenza Virus Unknown Completed [facility] of Vaccine [facility], [facility] dical Preserv and ABX Branch Free 6 MO-64 YRS (FLUCELVAX) SARS-COV-2 COVID-19 Unknown Completed [facility]ive rs[facility] of MODERNA 12+ YRS [place] [facility]ACC[facility] SARS-COV-2 COVID-19 Unknown Completed [facility] of MODERNA 12+ YRS [place] [facility]ACCINE [facility] Influenza Virus Unknown Completed [facility] Vaccine [facility] Pneumococcal Unknown Completed [facility] o f Polysaccharide, [place] [facility] PPSV23 (PNEUMOVAX) Branch Influenza Virus Unknown Completed [facility] of Vaccine [facility], [facility] dical Preserv and ABX Branch Free 6 MO-64 YRS (FLUCELVAX) SARS-COV-2 COVID-19 Unknown Completed [facility]ive rs[facility] of MODERNA 12+ YRS [place] [facility]ACCINE [facility] SARS-COV-2 COVID-19 Unknown Completed [facility]ive rsity of MODERNA 12+ YRS [place] [facility]ACCINE [facility] Influenza Virus Unknown Completed [facility] Vaccine [facility] Pneumococcal Unknown Completed [facility] o f Polysaccharide, [facility] ical PPSV23 (PNEUMOVAX) Branch Influenza Virus Unknown Completed [facility] of Vaccine [facility], [facility] dical Preserv and ABX Branch Free 6 MO-64 YRS (FLUCELVAX) SARS-COV-2 COVID-19 Unknown Completed [facility]ive rs[facility] of MODERNA 12+ YRS [place] [facility]ACC[facility] SARS-COV-2 COVID-19 Unknown Completed [facility]ive rs[facility] of MODERNA 12+ YRS [place] [facility]ACCINE [facility] Influenza Virus Unknown Completed [facility] Vaccine [facility] Pneumococcal Unknown Completed [facility] o f Polysaccharide, [place] [facility] PPSV23 (PNEUMOVAX) Branch Influenza Virus Unknown Completed [facility] of Vaccine [facility], [facility] dical Preserv and ABX Branch Free 6 MO-64 YRS (FLUCELVAX) SARS-COV-2 COVID-19 Unknown Completed [facility]ive rsity of MODERNA 12+ YRS [place] [facility]ACC[facility] SARS-COV-2 COVID-19 Unknown Completed [facility]ive rs[facility] of MODERNA 12+ YRS [place] [facility] VACCINE [facility] Influenza Virus Unknown Completed [facility] Vaccine [facility] Pneumococcal Unknown Completed [facility] o f Polysaccharide, [place] [facility] PPSV23 (PNEUMOVAX) Branch Influenza Virus Unknown Completed [facility] of Vaccine [facility], [facility] dical Preserv and ABX Branch Free 6 MO-64 YRS (FLUCELVAX) SARS-COV-2 COVID-19 Unknown Completed [facility]ive rsity of MODERNA 12+ YRS [place] [facility] VACCINE [facility] SARS-COV-2 COVID-19 Unknown Completed [facility]ive rsity of MODERNA 12+ YRS [place] [facility] VACCINE [facility] Influenza Virus Unknown Completed [facility] Vaccine [facility] Pneumococcal Unknown Completed [facility] o f Polysaccharide, [place] [facility] PPSV23 (PNEUMOVAX) Branch Influenza Virus Unknown Completed [facility] Vaccine [facility] [place] [facility] Preserv and ABX Branch Free 6 MO-64 YRS (FLUCELVAX) SARS-COV-2 COVID-19 Unknown Completed [facility]ive rsity of MODERNA 12+ YRS [place] [facility] VACCINE [facility] SARS-COV-2 COVID-19 Unknown Completed [facility]ive rsity of MODERNA 12+ YRS [place] [facility] VACCINE [facility] Influenza Virus Unknown Completed [facility] Vaccine [facility] Pneumococcal Unknown Completed [facility] o f Polysaccharide, [facility] ical PPSV23 (PNEUMOVAX) Branch Influenza Virus Unknown Completed [facility] of Vaccine [facility], [place] [facility] Preserv and ABX Branch Free 6 MO-64 YRS (FLUCELVAX) SARS-COV-2 COVID-19 Unknown Completed [facility]ive rsity of MODERNA 12+ YRS [place] [facility] VACCINE [facility] SARS-COV-2 COVID-19 Unknown Completed [facility]ive rsity of MODERNA 12+ YRS [place] [facility] VACCINE [facility] Influenza Virus Unknown Completed [facility] Vaccine [facility] Pneumococcal Unknown Completed [facility] o f Polysaccharide, [place] [facility] PPSV23 (PNEUMOVAX) Branch Influenza Virus Unknown Completed [facility] of Vaccine [facility], [place] [facility] Preserv and ABX Branch Free 6 MO-64 YRS (FLUCELVAX) SARS-COV-2 COVID-19 Unknown Completed [facility]ive rsity of MODERNA 12+ YRS [place] [facility] VACCINE [facility] SARS-COV-2 COVID-19 Unknown Completed [facility]ive rsity of MODERNA 12+ YRS [place] [facility] VACCINE [facility] Influenza Virus Unknown Completed [facility] Vaccine [facility] Pneumococcal Unknown Completed [facility] o f Polysaccharide, [facility] ical PPSV23 (PNEUMOVAX) Branch Influenza Virus Unknown Completed [facility] of Vaccine [facility] IM, [facility] dical Preserv and ABX Branch Free 6 MO-64 YRS (FLUCELVAX) SARS-COV-2 COVID-19 Unknown Completed [facility]ive rsity of MODERNA 12+ YRS [place] [facility] VACCINE [facility] SARS-COV-2 COVID-19 Unknown Completed [facility]ive rsity of MODERNA 12+ YRS [place] [facility] VACCINE [facility] Influenza Virus Unknown Completed [facility] Vaccine [facility] Pneumococcal Unknown Completed [facility] o f Polysaccharide, [place] [facility] PPSV23 (PNEUMOVAX) Branch Influenza Virus Unknown Completed [facility] of Vaccine [facility], [facility] dical Preserv and ABX Branch Free 6 MO-64 YRS (FLUCELVAX) SARS-COV-2 COVID-19 Unknown Completed [facility]ive rsity of MODERNA 12+ YRS [place] [facility]ACCINE [facility] SARS-COV-2 COVID-19 Unknown Completed [facility]ive rsity of MODERNA 12+ YRS [place] [facility] VACCINE [facility] Influenza Virus Unknown Completed [facility] Vaccine [facility] Pneumococcal Unknown Completed [facility] o f Polysaccharide, [place] [facility] PPSV23 (PNEUMOVAX) Branch Influenza Virus Unknown Completed [facility] of Vaccine [facility], [facility] dical Preserv and ABX Branch Free 6 MO-64 YRS (FLUCELVAX) SARS-COV-2 COVID-19 Unknown Completed [facility]ive rsity of MODERNA 12+ YRS [place] [facility]ACCINE [facility] SARS-COV-2 COVID-19 Unknown Completed [facility]ive rsity of MODERNA 12+ YRS [place] [facility] VACCINE [facility] Influenza Virus Unknown Completed [facility] Vaccine [facility] Pneumococcal Unknown Completed [facility] o f Polysaccharide, [place] [facility] PPSV23 (PNEUMOVAX) Branch Influenza Virus Unknown Completed [facility] of Vaccine [facility], [facility] dical Preserv and ABX Branch Free 6 MO-64 YRS (FLUCELVAX) SARS-COV-2 COVID-19 Unknown Completed [facility]ive rsity of MODERNA 12+ YRS [place] [facility] VACCINE [facility] SARS-COV-2 COVID-19 Unknown Completed [facility]ive rsity of MODERNA 12+ YRS [place] [facility] VACCINE [facility] Influenza Virus Unknown Completed [facility] Vaccine [facility] Pneumococcal Unknown Completed [facility] o f Polysaccharide, [place] [facility] PPSV23 (PNEUMOVAX) Branch Influenza Virus Unknown Completed [facility] of Vaccine [facility] IM, [facility] dical Preserv and ABX Branch Free 6 MO-64 YRS (FLUCELVAX) SARS-COV-2 COVID-19 Unknown Completed [facility]ive rsity of MODERNA 12+ YRS [place] [facility] VACCINE [facility] SARS-COV-2 COVID-19 Unknown Completed Unive rsity of MODERNA 12+ YRS [place] [facility] VACCINE [facility] Influenza Virus Unknown Completed [facility] Vaccine [facility] Pneumococcal Unknown Completed [facility] o f Polysaccharide, [place] [facility] PPSV23 (PNEUMOVAX) Branch Influenza Virus Unknown Completed [facility] of Vaccine [facility], [facility] dical Preserv and ABX Branch Free 6 MO-64 YRS (FLUCELVAX) SARS-COV-2 COVID-19 Unknown Completed [facility]ive rsity of MODERNA 12+ YRS [place] [facility] VACCINE [facility] SARS-COV-2 COVID-19 Unknown Completed [facility]ive rsity of MODERNA 12+ YRS [place] [facility] VACCINE [facility] Influenza Virus Unknown Completed [facility] Vaccine [facility] Pneumococcal Unknown Completed [facility] o f Polysaccharide, [place] [facility] PPSV23 (PNEUMOVAX) Branch Influenza Virus Unknown Completed [facility] of Vaccine [facility], [facility] dical Preserv and ABX Branch Free 6 MO-64 YRS (FLUCELVAX) SARS-COV-2 COVID-19 Unknown Completed [facility]ive rsity of MODERNA 12+ YRS [place] [facility] VACCINE [facility] SARS-COV-2 COVID-19 Unknown Completed [facility]ive rsity of MODERNA 12+ YRS [place] [facility] VACCINE [facility] Influenza Virus Unknown Completed [facility] Vaccine [facility] Pneumococcal Unknown Completed [facility] o f Polysaccharide, [place] [facility] PPSV23 (PNEUMOVAX) Branch SARS-COV-2 COVID-19 Unknown Completed [facility]ive rsity of MODERNA 12+ YRS [place] [facility] VACCINE [facility] SARS-COV-2 COVID-19 Unknown Completed [facility]ive rsity of MODERNA 12+ YRS [place] [facility] VACCINE [facility] Influenza Virus Unknown Completed [facility] Vaccine [facility] Pneumococcal Unknown Completed [facility] o f Polysaccharide, [place] [facility] PPSV23 (PNEUMOVAX) Branch SARS-COV-2 COVID-19 Unknown Completed [facility]ive rsity of MODERNA 12+ YRS [place] [facility] VACCINE [facility] SARS-COV-2 COVID-19 Unknown Completed [facility] rsity of MODERNA 12+ YRS [place] [facility] VACCINE [facility] Influenza Virus Unknown Completed [facility] Vaccine [facility] Pneumococcal Unknown Completed [facility] o f Polysaccharide, [place] [facility] PPSV23 (PNEUMOVAX) Branch SARS-COV-2 COVID-19 Unknown Completed [facility]ive rsity of MODERNA 12+ YRS [place] [facility] VACCINE [facility] SARS-COV-2 COVID-19 Unknown Completed [facility] rsity of MODERNA 12+ YRS [place] [facility] VACCINE [facility] Influenza Virus Unknown Completed [facility] Vaccine [facility] Pneumococcal Unknown Completed [facility] o f Polysaccharide, [place] [facility] PPSV23 (PNEUMOVAX) Branch SARS-COV-2 COVID-19 Unknown Completed [facility]ive rsity of MODERNA 12+ YRS [place] [facility] VACCINE [facility] SARS-COV-2 COVID-19 Unknown Completed [facility]ive rsity of MODERNA 12+ YRS [place] [facility] VACCINE [facility] Influenza Virus Unknown Completed [facility] Vaccine [facility] Pneumococcal Unknown Completed [facility] o f Polysaccharide, [place] [facility] PPSV23 (PNEUMOVAX) Branch SARS-COV-2 COVID-19 Unknown Completed [facility]ive rsity of MODERNA 12+ YRS [place] [facility] VACCINE [facility] SARS-COV-2 COVID-19 Unknown Completed [facility] rsity of MODERNA 12+ YRS [place] [facility] VACCINE [facility] Influenza Virus Unknown Completed [facility] Vaccine [facility] Pneumococcal Unknown Completed [facility] o f Polysaccharide, [place] [facility] PPSV23 (PNEUMOVAX) Branch SARS-COV-2 COVID-19 Unknown Completed [facility]ive rsity of MODERNA 12+ YRS [place] [facility] VACCINE [facility] SARS-COV-2 COVID-19 Unknown Completed [facility] rsity of MODERNA 12+ YRS [place] [facility] VACCINE [facility] Influenza Virus Unknown Completed [facility] Vaccine [facility] Pneumococcal Unknown Completed [facility] o f Polysaccharide, [place] [facility] PPSV23 (PNEUMOVAX) Branch SARS-COV-2 COVID-19 Unknown Completed [facility]ive rsity of MODERNA 12+ YRS [place] [facility] VACCINE [facility] SARS-COV-2 COVID-19 Unknown Completed [facility] rsity of MODERNA 12+ YRS [place] [facility] VACCINE [facility] Influenza Virus Unknown Completed [facility] Vaccine [facility] SARS-COV-2 COVID-19 Unknown Completed [facility]ive rsity of MODERNA 12+ YRS [place] [facility]ACC[facility] SARS-COV-2 COVID-19 Unknown Completed [facility] rsity of MODERNA 12+ YRS [place] [facility] VACCINE [facility] Influenza Virus Unknown Completed [facility] Vaccine [facility] SARS-COV-2 COVID-19 Unknown Completed [facility] rsity of MODERNA 12+ YRS [place] [facility]ACC[facility] SARS-COV-2 COVID-19 Unknown Completed [facility] rsity of MODERNA 12+ YRS [place] [facility] VACCINE [facility] Influenza Virus Unknown Completed [facility] Vaccine [facility] SARS-COV-2 COVID-19 Unknown Completed [facility]ive rsity of MODERNA 12+ YRS [place] [facility] VACC[facility] SARS-COV-2 COVID-19 Unknown Completed [facility] rsity of MODERNA 12+ YRS [place] [facility]ACCINE [facility] Influenza Virus Unknown Completed [facility] Vaccine [facility] Pneumococcal Unknown Completed [facility] o f Polysaccharide, [facility] ical PPSV23 (PNEUMOVAX) Branch Influenza Virus Unknown Completed [facility] Vaccine [facility], [place] [facility] Preserv and ABX Branch Free 6 MO-64 YRS (FLUCELVAX) SARS-COV-2 COVID-19 Unknown Completed [facility] rsity of MODERNA 12+ YRS [place] [facility] VACCINE [facility] SARS-COV-2 COVID-19 Unknown Completed [facility] rsity of MODERNA 12+ YRS [place] [facility]ACC[facility] Influenza Virus Unknown Completed [facility] of Vaccine [facility] Pneumococcal Unknown Completed University o f Polysaccharide, [facility] ical PPSV23 (PNEUMOVAX) Branch Influenza Virus Unknown Completed [facility] of Vaccine Quad IM, [facility] dical Preserv and ABX Branch Free 6 MO-64 YRS (FLUCELVAX) SARS-COV-2 COVID-19 Unknown Completed [facility]ive rsity of MODERNA 12+ YRS [place] [facility] SARS-COV-2 COVID-19 Unknown Completed Unive rsity of MODERNA 12+ YRS [place] [facility] Influenza Virus Unknown Completed Universit y of Vaccine [facility] Pneumococcal Unknown Completed University o f Polysaccharide, [place] [facility] PPSV23 (PNEUMOVAX) Branch Influenza Virus Unknown Completed Universit y of Vaccine [facility], [facility] dical Preserv and ABX Branch Free 6 MO-64 YRS (FLUCELVAX) SARS-COV-2 COVID-19 Unknown Completed [facility] of MODERNA 12+ YRS [place] [facility] SARS-COV-2 COVID-19 Unknown Completed [facility] of MODERNA 12+ YRS [place] [facility] Influenza Virus Unknown Completed [facility] of Vaccine [facility] Pneumococcal Unknown Completed University o f Polysaccharide, [place] [facility] PPSV23 (PNEUMOVAX) Branch Influenza Virus Unknown Completed [facility]it y of Vaccine [facility], [facility] dical Preserv and ABX Branch Free 6 MO-64 YRS (FLUCELVAX) SARS-COV-2 COVID-19 Unknown Completed [facility] rs[facility] of MODERNA 12+ YRS [place] [facility] SARS-COV-2 COVID-19 Unknown Completed [facility] of MODERNA 12+ YRS [place] [facility] Influenza Virus Unknown Completed [facility] of Vaccine [facility] Pneumococcal Unknown Completed [facility] o f Polysaccharide, [place] [facility] PPSV23 (PNEUMOVAX) Branch Influenza Virus Unknown Completed [facility]ine [facility] [place] [facility] Preserv and ABX Branch Free 6 MO-64 YRS (FLUCELVAX) SARS-COV-2 COVID-19 Unknown Completed [facility] of MODERNA 12+ YRS [place] [facility] SARS-COV-2 COVID-19 Unknown Completed [facility] of MODERNA 12+ YRS [place] [facility] Influenza Virus Unknown Completed [facility] of Vaccine [facility] Pneumococcal Unknown Completed [facility] o f Polysaccharide, [place] [facility] PPSV23 (PNEUMOVAX) Branch Influenza Virus Unknown Completed [facility] Vaccine [facility], [place] [facility] Preserv and ABX Branch Free 6 MO-64 YRS (FLUCELVAX) SARS-COV-2 COVID-19 Unknown Completed [facility] rs[facility] of MODERNA 12+ YRS [place] [facility] SARS-COV-2 COVID-19 Unknown Completed [facility] of MODERNA 12+ YRS [place] [facility] Influenza Virus Unknown Completed [facility] of Vaccine [facility] Pneumococcal Unknown Completed [facility] o f Polysaccharide, [place] [facility] PPSV23 (PNEUMOVAX) Branch Influenza Virus Unknown Completed [facility] Vaccine [facility], [place] [facility] Preserv and ABX Branch Free 6 MO-64 YRS (FLUCELVAX) SARS-COV-2 COVID-19 Unknown Completed [facility] of MODERNA 12+ YRS [place] [facility] SARS-COV-2 COVID-19 Unknown Completed [facility] of MODERNA 12+ YRS [place] [facility] Influenza Virus Unknown Completed [facility] of Vaccine [facility] Pneumococcal Unknown Completed [facility] o f Polysaccharide, [place] [facility] PPSV23 (PNEUMOVAX) Branch Influenza Virus Unknown Completed [facility]it y of Vaccine [facility], [facility] dical Preserv and ABX Branch Free 6 MO-64 YRS (FLUCELVAX) SARS-COV-2 COVID-19 Unknown Completed [facility] rs[facility] of MODERNA 12+ YRS [place] [facility] SARS-COV-2 COVID-19 Unknown Completed [facility]ive rs[facility] of MODERNA 12+ YRS [place] [facility] Influenza Virus Unknown Completed [facility] of Vaccine [facility] Pneumococcal Unknown Completed University o f Polysaccharide, [facility] ical PPSV23 (PNEUMOVAX) Branch Influenza Virus Unknown Completed Universit y of Vaccine [facility], [facility] dical Preserv and ABX Branch Free 6 MO-64 YRS (FLUCELVAX) SARS-COV-2 COVID-19 Unknown Completed [facility] rs[facility] of MODERNA 12+ YRS [place] [facility] SARS-COV-2 COVID-19 Unknown Completed [facility]ive rs[facility] of MODERNA 12+ YRS [place] [facility] Influenza Virus Unknown Completed [facility] of Vaccine [facility] Pneumococcal Unknown Completed University o f Polysaccharide, [facility] ical PPSV23 (PNEUMOVAX) Branch Influenza Virus Unknown Completed [facility]it y of Vaccine [facility], [facility] dical Preserv and ABX Branch Free 6 MO-64 YRS (FLUCELVAX) SARS-COV-2 COVID-19 Unknown Completed [facility]ive rs[facility] of MODERNA 12+ YRS [place] [facility] SARS-COV-2 COVID-19 Unknown Completed [facility]ive rs[facility] of MODERNA 12+ YRS [place] [facility] Influenza Virus Unknown Completed [facility] of Vaccine [facility] Pneumococcal Unknown Completed University o f Polysaccharide, [facility] ical PPSV23 (PNEUMOVAX) Branch Influenza Virus Unknown Completed [facility]it y of Vaccine [facility], [facility] dical Preserv and ABX Branch Free 6 MO-64 YRS (FLUCELVAX) SARS-COV-2 COVID-19 Unknown Completed [facility]ive rs[facility] of MODERNA 12+ YRS [place] [facility] SARS-COV-2 COVID-19 Unknown Completed [facility]ive rs[facility] of MODERNA 12+ YRS [place] [facility] Influenza Virus Unknown Completed [facility] of Vaccine [facility] Pneumococcal Unknown Completed [facility] o f Polysaccharide, [place] [facility] PPSV23 (PNEUMOVAX) Branch Influenza Virus Unknown Completed [facility]it y of Vaccine [facility], [facility] dical Preserv and ABX Branch Free 6 MO-64 YRS (FLUCELVAX) SARS-COV-2 COVID-19 Unknown Completed [facility]ive rs[facility] of MODERNA 12+ YRS [place] [facility] SARS-COV-2 COVID-19 Unknown Completed [facility]ive rs[facility] of MODERNA 12+ YRS [place] [facility] Influenza Virus Unknown Completed [facility] of Vaccine [facility] Pneumococcal Unknown Completed University o f Polysaccharide, [facility] ical PPSV23 (PNEUMOVAX) Branch Influenza Virus Unknown Completed [facility]it y of Vaccine [facility], [facility] dical Preserv and ABX Branch Free 6 MO-64 YRS (FLUCELVAX) SARS-COV-2 COVID-19 Unknown Completed [facility]ive rs[facility] of MODERNA 12+ YRS [place] [facility] SARS-COV-2 COVID-19 Unknown Completed [facility]ive rs[facility] of MODERNA 12+ YRS [place] [facility] Influenza Virus Unknown Completed [facility] of Vaccine [facility] Pneumococcal Unknown Completed University o f Polysaccharide, [facility] ical PPSV23 (PNEUMOVAX) Branch Influenza Virus Unknown Completed [facility]it y of Vaccine [facility], [facility] dical Preserv and ABX Branch Free 6 MO-64 YRS (FLUCELVAX) SARS-COV-2 COVID-19 Unknown Completed [facility]ive rs[facility] of MODERNA 12+ YRS [place] [facility] SARS-COV-2 COVID-19 Unknown Completed [facility]ive rs[facility] of MODERNA 12+ YRS [place] [facility] Influenza Virus Unknown Completed [facility] of Vaccine [facility] Pneumococcal Unknown Completed University o f Polysaccharide, [facility] ical PPSV23 (PNEUMOVAX) Branch Influenza Virus Unknown Completed [facility]it y of Vaccine [facility], [facility] dical Preserv and ABX Branch Free 6 MO-64 YRS (FLUCELVAX) SARS-COV-2 COVID-19 Unknown Completed [facility]ive rsity of MODERNA 12+ YRS [place] [facility] SARS-COV-2 COVID-19 Unknown Completed [facility]ive rsity of MODERNA 12+ YRS [place] [facility] Influenza Virus Unknown Completed [facility] of Vaccine [facility] Pneumococcal Unknown Completed University o f Polysaccharide, [facility] ical PPSV23 (PNEUMOVAX) Branch Influenza Virus Unknown Completed Universit y of Vaccine [facility], [facility] dical Preserv and ABX Branch Free 6 MO-64 YRS (FLUCELVAX) SARS-COV-2 COVID-19 Unknown Completed [facility]ive rs[facility] of MODERNA 12+ YRS [place] [facility] SARS-COV-2 COVID-19 Unknown Completed [facility]ive rsity of MODERNA 12+ YRS [place] [facility] Influenza Virus Unknown Completed [facility] of Vaccine [facility] Pneumococcal Unknown Completed University o f Polysaccharide, [facility] ical PPSV23 (PNEUMOVAX) Branch Influenza Virus Unknown Completed [facility]it y of Vaccine [facility], [facility] dical Preserv and ABX Branch Free 6 MO-64 YRS (FLUCELVAX) SARS-COV-2 COVID-19 Unknown Completed Unive rsity of MODERNA 12+ YRS [facility] ica VACCINE Branch SARS-COV-2 COVID-19 Unknown Completed Unive rsity of MODERNA 12+ YRS [facility] ical VACCINE Branch Influenza Virus Unknown Completed [facility]it y of Vaccine [facility] Pneumococcal Unknown Completed University o f Polysaccharide, [facility] ica PPSV23 (PNEUMOVAX) Branch Influenza Virus Unknown Completed Universit y of Vaccine [facility], [facility] dical Preserv and ABX Branch Free 6 MO-64 YRS (FLUCELVAX) SARS-COV-2 COVID-19 Unknown Completed Unive rsity of MODERNA 12+ YRS [facility] ica VACCINE Branch SARS-COV-2 COVID-19 Unknown Completed Unive rsity of MODERNA 12+ YRS [facility] ical VACCINE Branch Influenza Virus Unknown Completed [facility]it y of Vaccine [facility] Pneumococcal Unknown Completed University o f Polysaccharide, [facility] ical PPSV23 (PNEUMOVAX) Branch Influenza Virus Unknown Completed Universit y of Vaccine [facility], [facility] dical Preserv and ABX Branch Free 6 MO-64 YRS (FLUCELVAX) SARS-COV-2 COVID-19 Unknown Completed Unive rsity of MODERNA 12+ YRS [facility] ica VACCINE Branch SARS-COV-2 COVID-19 Unknown Completed Unive rsity of MODERNA 12+ YRS [facility] VACCINE Branch Influenza Virus Unknown Completed Universit y of Vaccine [facility] Pneumococcal Unknown Completed University o f Polysaccharide, [facility] ica PPSV23 (PNEUMOVAX) Branch Influenza Virus Unknown Completed Universit y of Vaccine Quad IM, [facility] dical Preserv and ABX Branch Free 6 MO-64 YRS (FLUCELVAX) Vital Signs Vital Name Observation Time Observation Value Comments Source Systolic blood 2023-03-13 135 mm[Hg] [facility] pressure 22:34:00 [facility] Diastolic blood 2023-03-13 81 mm[Hg] University o f pressure 22:34:00 [facility] Heart rate 2023-03-13 85 /min University of 22:34:00 [facility] Body temperature 2023-03-13 37 Fany University of 22:34:00 [facility] Body height 2023-03-13 180.3 cm University of 22:34:00 [facility] Body weight 2023-03-13 131.997 kg University of 22:34:00 [facility] BMI 2023-03-13 40.59 kg/m2 University of 22:34:00 [facility] Oxygen saturation 2023-03-13 96 /min University of in Arterial blood 22:34:00 [facility] Pulse oximetry Branch Heart rate 2023-03-09 78 /min University of 01:45:00 [facility] Oxygen saturation 2023-03-09 94 /min University of in Arterial blood 01:45:00 [facility] Pulse oximetry Branch Systolic blood 2023-03-09 182 mm[Hg] University of pressure :11:00 [facility] Diastolic blood 2023-03-09 101 mm[Hg] University o f pressure :11:00 [facility] Body temperature 2023-03-09 36.72 Fany University of :11:00 [facility] Respiratory rate 2023-03-09 22 /min University of :11:00 [facility] Body height 2023-03-09 180.3 cm University of :11:00 [facility] Body weight 2023-03-09 137.44 kg University of :11:00 [facility] BMI 2023-03-09 42.26 kg/m2 University of :11:00 [facility] Systolic blood 2023-03-07 132 mm[Hg] University of pressure 20:14:00 [facility] Diastolic blood 2023-03-07 76 mm[Hg] University o f pressure 20:14:00 [facility] Heart rate 2023-03-07 92 /min University of 20:14:00 [facility] Body height 2023-03-07 180.3 cm University of 20:14:00 [facility] Body weight 2023-03-07 137.44 kg University of 20:14:00 [facility] BMI 2023-03-07 42.26 kg/m2 University of 20:14:00 [facility] Oxygen saturation 2023-03-07 95 /min University of in Arterial blood 20:14:00 [place] [facility] Pulse oximetry [facility] Systolic blood 2023-03-07 142 mm[Hg] University of pressure 13:35:45 [facility] Diastolic blood 2023-03-07 92 mm[Hg] University o f pressure 13:35:45 [facility] Heart rate 2023-03-07 72 /min University of 13:35:45 [facility] Body temperature 2023-03-07 36.33 Fany University of 13:35:45 [facility] Respiratory rate 2023-03-07 19 /min University of 13:35:45 [facility] Oxygen saturation 2023-03-07 96 /min University of in Arterial blood 13:35:45 [facility] Pulse oximetry [facility] Body height 2023-03-07 177.8 cm University of 11:48:00 [facility] Body weight 2023-03-07 137.44 kg University of 11:48:00 [facility] BMI 2023-03-07 43.48 kg/m2 University of 11:48:00 [facility] Systolic blood 2023-03-04 142 mm[Hg] University of pressure 15:45:00 [facility] Diastolic blood 2023-03-04 86 mm[Hg] University o f pressure 15:45:00 [facility] Heart rate 2023-03-04 99 /min University of 15:45:00 [facility] Respiratory rate 2023-03-04 20 /min University of 15:45:00 [facility] Oxygen saturation 2023-03-04 95 /min University of in Arterial blood 15:45:00 [facility] Pulse oximetry [facility] Body temperature 2023-03-04 36 Fany University of 14:15:00 [facility] BMI 2023-02-24 39.80 kg/m2 University of 20:35:00 [facility] Body weight 2023-02-24 133.1 kg University of 20:35:00 [facility] Systolic blood 2023-03-04 166 mm[Hg] University of pressure 11:23:00 [facility] Diastolic blood 2023-03-04 94 mm[Hg] University o f pressure 11:23:00 [facility] Heart rate 2023-03-04 89 /min University of 11:23:00 [facility] Body temperature 2023-03-04 37 Fany University of 11:20:00 [facility] Respiratory rate 2023-03-04 18 /min University of 11:20:00 [facility] Oxygen saturation 2023-03-04 94 /min University of in Arterial blood 11:20:00 [facility] by Pulse oximetry Branch Body weight 2023-02-24 133.1 kg University of 20:35:00 [facility] BMI 2023-02-24 39.80 kg/m2 University of 20:35:00 [facility] Systolic blood 2023-01-27 180 mm[Hg] University of pressure 18:19:00 [facility] Diastolic blood 2023-01-27 107 mm[Hg] University o f pressure 18:19:00 [facility] Heart rate 2023-01-27 76 /min University of 18:14:00 [facility] Body temperature 2023-01-27 35.67 Fany University of 18:14:00 [facility] Body height 2023-01-27 182.9 cm University of 18:14:00 [facility] Body weight 2023-01-27 133.131 kg University of 18:14:00 [facility] BMI 2023-01-27 39.81 kg/m2 University of 18:14:00 [facility] Oxygen saturation 2023-01-27 91 /min University of in Arterial blood 18:14:00 [facility] by Pulse oximetry Branch Systolic blood 2022-12-19 148 mm[Hg] University of pressure 22:11:00 [facility] Diastolic blood 2022-12-19 82 mm[Hg] University o f pressure 22:11:00 [facility] Heart rate 2022-12-19 83 /min University of 22:10:00 [facility] Body temperature 2022-12-19 36.89 Fany University of 22:10:00 [facility] Respiratory rate 2022-12-19 22 /min University of 22:10:00 [facility] Body height 2022-12-19 180.3 cm University of 22:10:00 [facility] Body weight 2022-12-19 132.133 kg University of 22:10:00 [facility] BMI 2022-12-19 40.63 kg/m2 University of 22:10:00 [facility] Oxygen saturation 2022-12-19 96 /min University of in Arterial blood 22:10:00 [facility] by Pulse oximetry Branch Systolic blood 2022-12-16 136 mm[Hg] University of pressure 16:31:00 [facility] Diastolic blood 2022-12-16 79 mm[Hg] University o f pressure 16:31:00 [facility] Heart rate 2022-12-16 90 /min University of 16:30:00 [facility] Body temperature 2022-12-16 36.89 Fany University of 16:30:00 [facility] Respiratory rate 2022-12-16 20 /min University of 16:30:00 [facility] Body weight 2022-12-16 130.182 kg University of 16:30:00 [facility] BMI 2022-12-16 38.92 kg/m2 University of 16:30:00 [facility] Oxygen saturation 2022-12-16 96 /min University of in Arterial blood 16:30:00 [facility] Pulse oximetry [facility] Systolic blood 2022-12-09 114 mm[Hg] University of pressure 13:46:00 [facility] Diastolic blood 2022-12-09 68 mm[Hg] University o f pressure 13:46:00 [facility] Heart rate 2022-12-09 83 /min University of 13:46:00 [facility] Respiratory rate 2022-12-09 22 /min University of 13:46:00 [facility] Body height 2022-12-09 182.9 cm University of 13:46:00 [facility] Body weight 2022-12-09 134.888 kg University of 13:46:00 [facility] BMI 2022-12-09 40.33 kg/m2 University of 13:46:00 [facility] Oxygen saturation 2022-12-09 95 /min University of in Arterial blood 13:46:00 [facility] Pulse oximetry [facility] Systolic blood 2022-12-06 107 mm[Hg] University of pressure 20:43:00 [facility] Diastolic blood 2022-12-06 66 mm[Hg] University o f pressure 20:43:00 [facility] Heart rate 2022-12-06 100 /min University of 20:43:00 [facility] Body height 2022-12-06 180.3 cm University of 20:43:00 [facility] Body weight 2022-12-06 133.221 kg University of 20:43:00 [facility] BMI 2022-12-06 40.96 kg/m2 University of 20:43:00 [facility] Oxygen saturation 2022-12-06 92 /min University of in Arterial blood 20:43:00 [facility] Pulse oximetry [facility] Systolic blood 2022-12-05 129 mm[Hg] University of pressure 18:29:00 [facility] Diastolic blood 2022-12-05 70 mm[Hg] University o f pressure 18:29:00 [facility] Heart rate 2022-12-05 89 /min University of 18:29:00 [facility] Body height 2022-12-05 180.3 cm University of 18:29:00 [facility] Body weight 2022-12-05 136.941 kg University of 18:29:00 [facility] BMI 2022-12-05 42.11 kg/m2 University of 18:29:00 [facility] Oxygen saturation 2022-12-05 95 /min University of in Arterial blood 18:29:00 [facility] Pulse oximetry [facility] Systolic blood 2022-12-01 160 mm[Hg] University of pressure 04:53:00 [facility] Diastolic blood 2022-12-01 101 mm[Hg] University o f pressure 04:53:00 [facility] Heart rate 2022-12-01 107 /min University 04:53:00 [facility] Body temperature 2022-12-01 37.28 Fany University of 04:53:00 [facility] Respiratory rate 2022-12-01 24 /min University of 04:53:00 [facility] Body height 2022-12-01 182.9 cm University of 04:53:00 [facility] Body weight 2022-12-01 134.582 kg University of 04:53:00 [facility] BMI 2022-12-01 40.24 kg/m2 University of 04:53:00 [facility] Oxygen saturation 2022-12-01 95 /min University of in Arterial blood 04:53:00 [facility] Pulse oximetry [facility] Heart rate 2022-11-30 90 /min University of 12:35:00 [facility] Respiratory rate 2022-11-30 18 /min University of 12:35:00 [facility] Oxygen saturation 2022-11-30 99 /min University of in Arterial blood 12:35:00 [facility] Pulse oximetry [facility] Systolic blood 2022-11-30 159 mm[Hg] University of pressure 12:20:00 [facility] Diastolic blood 2022-11-30 96 mm[Hg] University o f pressure 12:20:00 [facility] Body temperature 2022-11-30 36.28 Fany University of 12:20:00 [facility] Body weight 2022-11-30 139.481 kg University of 09:20:00 [facility] BMI 2022-11-30 41.70 kg/m2 University of 09:20:00 [facility] Body height 2022-11-27 182.9 cm University of 22:12:00 [facility] Systolic blood 2022-11-24 121 mm[Hg] University of pressure 22:01:00 [facility] Diastolic blood 2022-11-24 68 mm[Hg] University o f pressure 22:01:00 [facility] Respiratory rate 2022-11-24 17 /min University of 22:01:00 [facility] Heart rate 2022-11-24 90 /min University of 21:45:00 [facility] Oxygen saturation 2022-11-24 93 /min University of in Arterial blood 21:45:00 [facility] by Pulse oximetry Branch Body temperature 2022-11-24 37.28 Fany University of 19:34:00 [facility] Body height 2022-11-24 182.9 cm University of 19:34:00 [facility] Body weight 2022-11-24 131.543 kg University of 19:34:00 [facility] BMI 2022-11-24 39.33 kg/m2 University of 19:34:00 [facility] Systolic blood 2022-11-21 122 mm[Hg] University of pressure 23:10:00 [facility] Diastolic blood 2022-11-21 77 mm[Hg] University o f pressure 23:10:00 [facility] Heart rate 2022-11-21 79 /min University of 23:10:00 [facility] Respiratory rate 2022-11-21 20 /min University of 23:10:00 [facility] Oxygen saturation 2022-11-21 94 /min University of in Arterial blood 23:10:00 [place] [facility] Pulse oximetry [place] Body temperature 2022-11-21 37.11 Fany University of 20:20:00 [facility] Body weight 2022-11-21 131.543 kg University of 20:20:00 [facility] BMI 2022-11-21 39.33 kg/m2 University of 20:20:00 [facility] Systolic blood 2022-11-19 129 mm[Hg] University of pressure 19:48:00 [facility] Diastolic blood 2022-11-19 78 mm[Hg] University o f pressure 19:48:00 [facility] Heart rate 2022-11-19 85 /min University of 19:48:00 [facility] Body height 2022-11-19 182.9 cm University of 19:28:00 [facility] Body weight 2022-11-19 132.586 kg University of 19:28:00 [facility] BMI 2022-11-19 39.64 kg/m2 University of 19:28:00 [facility] Oxygen saturation 2022-11-19 96 /min University of in Arterial blood 19:28:00 [facility] by Pulse oximetry Branch Systolic blood 2022-10-24 100 mm[Hg] University of pressure 16:26:00 [facility] Diastolic blood 2022-10-24 60 mm[Hg] University o f pressure 16:26:00 [facility] Heart rate 2022-10-24 63 /min University of 16:26:00 [facility] Respiratory rate 2022-10-24 13 /min University of 16:26:00 [facility] Oxygen saturation 2022-10-24 96 /min University of in Arterial blood 16:26:00 [facility] by Pulse oximetry Branch Body temperature 2022-10-24 37.22 Fany University of 14:24:00 [facility] Systolic blood 2022-09-19 121 mm[Hg] University of pressure 21:30:00 [facility] Diastolic blood 2022-09-19 85 mm[Hg] University o f pressure 21:30:00 [facility] Heart rate 2022-09-19 93 /min University of 21:30:00 [facility] Body temperature 2022-09-19 36 Fany University of 21:30:00 [facility] Respiratory rate 2022-09-19 19 /min University of 21:30:00 [facility] Oxygen saturation 2022-09-19 93 /min University of in Arterial blood 21:30:00 [facility] by Pulse oximetry Branch Body height 2022-09-18 182.9 cm University of 22:58:00 [facility] Body weight 2022-09-18 125.5 kg University of 22:58:00 [facility] BMI 2022-09-18 37.52 kg/m2 University of 22:58:00 [facility] Respiratory rate 2022-08-23 16 /min University of 04:11:00 [facility] Oxygen saturation 2022-08-23 95 /min University of in Arterial blood 04:11:00 [facility] by Pulse oximetry Branch Systolic blood 2022-08-23 144 mm[Hg] University of pressure 04:00:00 [facility] Diastolic blood 2022-08-23 87 mm[Hg] University o f pressure 04:00:00 [facility] Heart rate 2022-08-23 84 /min University of 04:00:00 [facility] Body temperature 2022-08-22 36.89 Fany University of 23:02:00 [facility] Body height 2022-08-22 180.3 cm University of 23:02: [facility] Body weight 2022-08-22 126.554 kg University of 23:02:00 [facility] BMI 2022-08-22 38.91 kg/m2 University of 23:02:00 [facility] Systolic blood 2022-08-20 121 mm[Hg] University of pressure 20:24:00 [facility] Diastolic blood 2022-08-20 76 mm[Hg] University o f pressure 20:24:00 [facility] Heart rate 2022-08-20 80 /min University of 20:24:00 [facility] Body temperature 2022-08-20 36.61 Fany University of 20:24:00 [facility] Respiratory rate 2022-08-20 18 /min University of 20:24:00 [facility] Body height 2022-08-20 180.3 cm University of 20:24: [facility] Body weight 2022-08-20 126.871 kg University of 20:24:00 [facility] BMI 2022-08-20 39.01 kg/m2 University of 20:24:00 [facility] Oxygen saturation 2022-08-20 95 /min [facility] of in Arterial blood 20:24:00 [facility] Respiratory rate 2022-08-10 18 /min University 16:53:00 [facility] Oxygen saturation 2022-08-10 93 /min University of in Arterial blood 16:53:00 [facility] Systolic blood 2022-08-10 149 mm[Hg] University of pressure 12:29:00 [facility] Diastolic blood 2022-08-10 85 mm[Hg] University o f pressure 12:29:00 [facility] Heart rate 2022-08-10 91 /min University of 12:29:00 [facility] Body temperature 2022-08-10 36.78 Fany University of 12:29:00 [facility] Body weight 2022-08-10 130.5 kg University of 08:50:00 [facility] BMI 2022-08-10 40.13 kg/m2 University of 08:50:00 [facility] Body height 2022-08-09 180.3 cm University of 22:06:00 [facility] Systolic blood 2022-04-04 168 mm[Hg] University of pressure 17:54:00 [facility] Diastolic blood 2022-04-04 91 mm[Hg] University o f pressure 17:54:00 [facility] Heart rate 2022-04-04 73 /min University of 17:54:00 [facility] Body temperature 2022-04-04 36.94 Fany University of 17:54:00 [facility] Respiratory rate 2022-04-04 20 /min University of 17:54:00 [facility] Oxygen saturation 2022-04-04 94 /min University of in Arterial blood 17:54:00 [facility] by Pulse oximetry Branch Body weight 2022-04-04 128.958 kg University of 09:33:00 [facility] BMI 2022-04-04 38.56 kg/m2 University of 09:33:00 [facility] Body height 2022-04-03 182.9 cm University of 07:00:00 [facility] Respiratory rate 2022-03-28 18 /min University of 17:29:00 [facility] Oxygen saturation 2022-03-28 91 /min University of in Arterial blood 17:29:00 [facility] by Pulse oximetry Branch Systolic blood 2022-03-28 121 mm[Hg] University of pressure 17:23:00 [facility] Diastolic blood 2022-03-28 75 mm[Hg] University o f pressure 17:23:00 [facility] Heart rate 2022-03-28 83 /min University of 17:23:00 [facility] Body temperature 2022-03-28 35.67 Fany University of 17:23:00 [facility] Body height 2022-03-26 182.9 cm University of 21:15:00 [facility] Body weight 2022-03-26 131.09 kg University of 21:15:00 [facility] BMI 2022-03-26 39.20 kg/m2 University of 21:15:00 [facility] Systolic blood 2022-03-11 126 mm[Hg] University of pressure 21:49:00 [facility] Diastolic blood 2022-03-11 72 mm[Hg] University o f pressure 21:49:00 [facility] Heart rate 2022-03-11 81 /min University of 21:49:00 [facility] Body temperature 2022-03-11 37.28 Fany University of 21:49:00 [facility] Body height 2022-03-11 182.9 cm University of 21:49:00 [facility] Body weight 2022-03-11 136.533 kg University of 21:49:00 [facility] BMI 2022-03-11 40.82 kg/m2 University of 21:49:00 [facility] Oxygen saturation 2022-03-11 90 /min on 3 liters of Universi ty of in Arterial blood 21:49:00 oxygen [facility] by Pulse oximetry Branch Systolic blood 2022-02-27 130 mm[Hg] University of pressure 18:41:00 [facility] Diastolic blood 2022-02-27 80 mm[Hg] University o f pressure 18:41:00 [facility] Heart rate 2022-02-27 92 /min University of 18:41:00 [facility] Respiratory rate 2022-02-27 19 /min University of 18:41:00 [facility] Body height 2022-02-27 180.3 cm University of 18:41:00 [facility] Body weight 2022-02-27 132.45 kg University of 18:41:00 [facility] BMI 2022-02-27 40.73 kg/m2 University of 18:41:00 [facility] Oxygen saturation 2022-02-27 91 /min [facility] in Arterial blood 18:41:00 [facility] Systolic blood 2022-02-11 117 mm[Hg] University of pressure 19:49:00 [facility] Diastolic blood 2022-02-11 76 mm[Hg] University o f pressure 19:49:00 [facility] Heart rate 2022-02-11 81 /min University 19:49:00 [facility] Body temperature 2022-02-11 36.72 Fany University of 19:49:00 [facility] Body height 2022-02-11 180.3 cm University 19:49:00 [facility] Body weight 2022-02-11 132.904 kg University of 19:49:00 [facility] BMI 2022-02-11 40.87 kg/m2 University of 19:49:00 [facility] Oxygen saturation 2022-02-11 91 /min was not using Universit y of in Arterial blood 19:49:00 his oxygen [facility] Respitory Rate 2016-05-25 [facility] 18:45:00 Heart Rate 2016-05-25 Dilia Benitezan n 18:45:00 Systolic (mm Hg) 2016-05-25 [facility] 18:45:00 Diastolic (mm Hg) 2016-05-25 [facility] 18:45:00 Temperature Oral 2016-05-25 97.8 F [facility] (F) 18:45:00 Respitory Rate 2016-05-25 [facility] 14:40:00 Systolic (mm Hg) 2016-05-25 [facility] 14:40:00 Diastolic (mm Hg) 2016-05-25 [facility] 14:40:00 Heart Rate 2016-05-25 [facility] 14:40:00 Temperature Oral 2016-05-25 97.9 F [facility] (F) 14:40:00 Respitory Rate 2016-05-25 [facility] 08:17:00 Heart Rate 2016-05-25 [facility] 08:17:00 Temperature Oral 2016-05-25 97.6 F [facility] (F) 08:17:00 Systolic (mm Hg) 2016-05-25 [facility] 08:17:00 Diastolic (mm Hg) 2016-05-25 [facility] 08:17:00 Weight 2016-05-25 [facility] 07:05:00 BMI Calculated 2016-05-25 [facility] 07:05:00 Height 2016-05-25 182.88 cm [facility] 07:05:00 Weight 2016-05-24 [facility] 21:49:00 BMI Calculated 2016-05-24 [facility] 21:49:00 Height 2016-05-24 182.88 cm [facility] 21:49:00 Systolic (mm Hg) 2016-01-20 [facility] 19:00:00 Diastolic (mm Hg) 2016-01-20 [facility] 19:00:00 Respitory Rate 2016-01-20 [facility] 19:00:00 Systolic (mm Hg) 2016-01-20 [facility] 18:00:00 Diastolic (mm Hg) 2016-01-20 [facility] 18:00:00 Respitory Rate 2016-01-20 [facility] 18:00:00 Respitory Rate 2016-01-20 [facility] 17:00:00 Systolic (mm Hg) 2016-01-20 [facility] 17:00:00 Diastolic (mm Hg) 2016-01-20 [facility] 17:00:00 Temperature Oral 2016-01-20 96.2 F [facility] (F) 03:30:00 BMI Calculated 2016-01-20 [facility] 03:12:00 Height 2016-01-20 182.88 cm [facility] 03:12:00 Weight 2016-01-20 [facility] 03:12:00 Heart Rate 2016-01-20 [facility] 01:45:00 Temperature Oral 2016-01-20 96.9 F [facility] (F) 00:00:00 Weight 2016-01-19 [facility] 23:26:00 BMI Calculated 2016-01-19 [facility] 23:26:00 Height 2016-01-19 182.88 cm [facility] 23:26:00 Heart Rate 2016-01-19 [facility] 23:26:00 Systolic (mm Hg) 2015-03-30 [facility] 19:15:00 Diastolic (mm Hg) 2015-03-30 [facility] 19:15:00 Temperature Oral 2015-03-30 97.6 F [facility] (F) 19:15:00 Respitory Rate 2015-03-30 [facility] 19:15:00 Systolic (mm Hg) 2015-03-30 [facility] 18:01:00 Diastolic (mm Hg) 2015-03-30 [facility] 18:01:00 Respitory Rate 2015-03-30 [facility] 18:01:00 Systolic (mm Hg) 2015-03-30 [facility] 17:11:00 Diastolic (mm Hg) 2015-03-30 [facility] 17:11:00 Heart Rate 2015-03-30 [facility] 17:11:00 Respitory Rate 2015-03-30 [facility] 17:11:00 Weight 2015-03-30 [facility] 16:12:00 BMI Calculated 2015-03-30 [facility] 16:12:00 Height 2015-03-30 180.34 cm [facility] 16:12:00 Temperature Oral 2015-03-30 97.9 F [facility] (F) 16:12:00 Heart Rate 2015-03-30 [facility] 16:12:00 Respitory Rate 2015-02-15 [facility] 10:20:00 Systolic (mm Hg) 2015-02-15 [facility] 10:00:00 Diastolic (mm Hg) 2015-02-15 [facility] 10:00:00 Respitory Rate 2015-02-15 [facility] 09:00:00 Respitory Rate 2015-02-15 [facility] 08:00:00 Systolic (mm Hg) 2015-02-15 [facility] 06:00:00 Diastolic (mm Hg) 2015-02-15 [facility] 06:00:00 Systolic (mm Hg) 2015-02-15 [facility] 05:00:00 Diastolic (mm Hg) 2015-02-15 [facility] 05:00:00 Temperature Oral 2015-02-15 99.0 F [facility] (F) 03:08:00 Temperature Oral 2015-02-14 98.7 F [facility] (F) 03:00:00 Temperature Oral 2015-02-14 98.1 F [facility] (F) 01:00:00 BMI Calculated 2015-02-13 [facility] 00:55:00 Height 2015-02-13 182.88 cm [facility] 00:55:00 Weight 2015-02-13 [facility] 00:55:00 Systolic (mm Hg) 2014-12-14 [facility] 17:00:00 Diastolic (mm Hg) 2014-12-14 [facility] 17:00:00 Respitory Rate 2014-12-14 [facility] 17:00:00 Respitory Rate 2014-12-14 [facility] 16:03:00 Respitory Rate 2014-12-14 [facility] 16:02:00 Systolic (mm Hg) 2014-12-14 [facility] 15:51:00 Diastolic (mm Hg) 2014-12-14 [facility] 15:51:00 Systolic (mm Hg) 2014-12-14 [facility] 15:42:00 Diastolic (mm Hg) 2014-12-14 [facility] 15:42:00 Temperature Oral 2014-12-14 96.2 F [facility] (F) 12:49:00 Temperature Oral 2014-12-14 97.0 F [facility] (F) 11:14:00 Temperature Oral 2014-12-14 97.0 F [facility] (F) 05:58:00 Heart Rate 2014-12-13 [facility] 15:30:00 Heart Rate 2014-12-13 [facility] 15:20:00 Weight 2014-12-12 [facility] 23:59:00 Height 2014-12-12 182.88 cm [facility] 09:52:00 Weight 2014-12-12 [facility] 09:52:00 BMI Calculated 2014-12-12 [facility] 09:52:00 BMI Calculated 2014-12-12 [facility] 09:50:00 Weight 2014-12-12 [facility] 09:50:00 Height 2014-12-12 182.88 cm [facility] 09:50:00 Heart Rate 2014-10-27 [facility] 17:00:00 Respitory Rate 2014-10-27 [facility] 17:00:00 Systolic (mm Hg) 2014-10-27 [facility] 17:00:00 Diastolic (mm Hg) 2014-10-27 [facility] 17:00:00 Temperature Oral 2014-10-27 98.0 F [facility] (F) 17:00:00 Heart Rate 2014-10-27 [facility] 13:00:00 Respitory Rate 2014-10-27 [facility] 13:00:00 Systolic (mm Hg) 2014-10-27 [facility] 13:00:00 Diastolic (mm Hg) 2014-10-27 [facility] 13:00:00 Temperature Oral 2014-10-27 98.0 F [facility] (F) 13:00:00 Respitory Rate 2014-10-27 [facility] 12:51:00 Systolic (mm Hg) 2014-10-27 [facility] 09:19:00 Diastolic (mm Hg) 2014-10-27 [facility] 09:19:00 Heart Rate 2014-10-27 [facility] 09:19:00 Temperature Oral 2014-10-27 98.5 F [facility] rmann (F) 09:19:00 Height 2014-10-27 182.88 cm [facility] 05:00:00 Weight 2014-10-27 [facility] 05:00:00 BMI Calculated 2014-10-27 [facility] 05:00:00 BMI Calculated 2014-10-26 [facility] 20:37:00 Height 2014-10-26 182.88 cm [facility] 20:37:00 Weight 2014-10-26 [facility] 20:37:00 Systolic (mm Hg) 2014-07-20 [facility] 17:00:00 Diastolic (mm Hg) 2014-07-20 [facility] 17:00:00 Respitory Rate 2014-07-20 [facility] 17:00:00 Systolic (mm Hg) 2014-07-20 [facility] 16:00:00 Diastolic (mm Hg) 2014-07-20 [facility] 16:00:00 Respitory Rate 2014-07-20 [facility] 16:00:00 Respitory Rate 2014-07-20 [facility] 15:00:00 Systolic (mm Hg) 2014-07-20 [facility] 14:30:00 Diastolic (mm Hg) 2014-07-20 [facility] ermann 14:30:00 Temperature Oral 2014-07-20 98.0 F [facility] (F) 11:17:00 Temperature Oral 2014-07-20 98.1 F [facility] rmann (F) 07:31:00 Heart Rate 2014-07-20 [facility] 07:31:00 Heart Rate 2014-07-20 [facility] 04:52:00 Temperature Oral 2014-07-20 97.5 F [facility] r[facility] (F) 04:52:00 Heart Rate 2014-07-20 [facility] 01:43:00 BMI Calculated 2014-07-19 [facility] 22:35:00 Weight 2014-07-19 [facility] 22:35:00 Height 2014-07-19 182.88 cm [facility] 22:35:00 Weight 2012-06-22 Dilia Benitezan n 18:48:00 Height 2012-06-22 182.88 cm [facility] Benitezan n 18:48:00 Weight 2012-03-01 Dilia Benitezan n 01:01:00 Height 2012-03-01 182.88 cm D[facility] Benitezan n 01:01:00 Diastolic (mm Hg) 2011-07-12 [facility] 15:00:00 Systolic (mm Hg) 2011-07-12 [facility] 15:00:00 Respitory Rate 2011-07-12 [facility] 15:00:00 Temperature Oral 2011-07-12 98.4 F [facility] (F) 15:00:00 Respitory Rate 2011-07-12 [facility] 11:00:00 Diastolic (mm Hg) 2011-07-12 [facility] 11:00:00 Systolic (mm Hg) 2011-07-12 [facility] 11:00:00 Temperature Oral 2011-07-12 97.5 F [facility] (F) 11:00:00 Diastolic (mm Hg) 2011-07-12 [facility] 02:56:00 Systolic (mm Hg) 2011-07-12 [facility] 02:56:00 Respitory Rate 2011-07-12 [facility] 02:56:00 Temperature Oral 2011-07-12 97.8 F [facility] (F) 02:56:00 Heart Rate 2011-07-11 Dilia Benitezan n 22:34:00 Heart Rate 2011-07-11 [facility] 14:43:00 Heart Rate 2011-07-11 Dilia Benitzean n 10:00:00 Height 2011-07-09 182.88 cm Dilia Holly n 20:33:00 Weight 2011-07-09 Dilia Benitezan n 20:33:00 Procedures Procedure Date / Time Performing Clinician Source Performed XR CHEST 2 VW 2023-03-13 23:14:29 Tyra Cox [facility] POCT MOLECULAR FLU 2023-03-13 22:29:00 Tyra Cox [facility] POCT SARS-COV-2 ANTIGEN 2023-03-13 00:00:00 Tyra Cox [facility] (BINAX NOW) [facility] CONSENT/REFUSAL FOR 2023-03-09 01:07:20 Doctor UnassShyla marcus [facility] DIAGNOSIS AND TREATMENT [facility] EKG-12 LEAD 2023-03-07 13:40:25 [facility] CHEST 1 VW 2023-03-07 12:33:58 Marilou Darden [facility] MAGNESIUM 2023-03-07 12:19:00 Marilou Darden [facility] TROPONIN I 2023-03-07 12:19:00 Marilou Darden [facility] COMP. METABOLIC PANEL 2023-03-07 12:19:00 Marilou Darden [facility] ([id number]) [facility] CBC WITH DIFF 2023-03-07 12:19:00 Marilou Darden [facility] N-TERMINAL PRO-BNP 2023-03-07 12:19:00 Marilou Darden [facility] FL TIME OR 2023-03-04 14:20:00 Lamar Cain [facility] (NON-REPORTABLE) [facility] [place] TIME OR 2023-03-04 14:20:00 [facility] IMPLANT/HARDWARE/ORTHO 2023-03-04 13:11:00 [facility] INFECTION [facility] CULTURE(AEROBIC/ANAEROBIC ) FUNGUS (ROUTINE) CULTURE 2023-03-04 13:09:00 Lamar Cain [facility] TISSUE 2023-03-04 13:09:00 Lamar Cain [facility] CULTURE(AEROBIC/ANAEROBIC Medica l Branch ) REMOVAL HARDWARE UPPER 2023-03-04 11:55:00 [facility] EXTREMITY [facility] POCT 2023-03-04 11:51:00 Jovany Olosn [facility] NICOTINE-URINE/PLASMA Medical Br anch POCT 2023-03-04 11:51:00 Jovany Olson [facility] NICOTINE-URINE/PLASMA Medical Br anch POCT GLUCOSE (AUTOMATED) 2023-03-04 11:35:00 Lamar Cain [facility] POCT GLUCOSE (AUTOMATED) 2023-03-04 11:35:00 Lamar Cain [facility] ASSIGNMENT OF BENEFITS 2023-03-04 10:37:00 Doctor Rupali, [facility] AUTHORIZATION FOR RELEASE 2023-02-07 05:01:00 Doctor Rupali, [facility] DME/SUPPLY JUSTIFICATION 2023-02-04 05:01:00 Doctor Rupali, [facility] AUTHORIZATION FOR RELEASE 2023-02-03 05:01:00 Doctor Rupali, [facility] PATIENT QUESTIONNAIRE 2023-01-27 05:01:00 Doctor Rupali, [facility] DISCLOSURE AND CONSENT, 2023-01-27 05:01:00 Doctor Rupali, [facility] MEDICAL AND SURGICAL [facility] PROCEDURES PATIENT QUESTIONNAIRE 2023-01-27 05:01:00 Doctor Rupali, [facility] DISCLOSURE AND CONSENT, 2023-01-27 05:01:00 Doctor Rupali, [facility] MEDICAL AND SURGICAL [facility] PROCEDURES DME/SUPPLY JUSTIFICATION 2023-01-24 05:01:00 Doctor Rupali, [facility] INSURANCE CORRESPONDENCE 2023-01-22 05:01:00 Doctor Rupali, [facility] AUTHORIZATION TO RELEASE 2022-12-16 05:01:00 Doctor Zapien, [facility] PHI TO [facility] DSU PRE-OP 2022-12-10 05:01:00 Doctor Zapien [facility] REFERRAL- 2022-12-09 05:01:00 Doctor Zapien [facility] REQUEST/RESPONSE [facility] REFERRAL- 2022-12-06 05:01:00 Doctor Rupali [facility] REQUEST/RESPONSE [facility] XR WRIST 3+ VW RIGHT 2022-12-05 19:34:26 Karen Calle [facility] XR HAND 3+ VW RIGHT 2022-12-05 19:34:10 Karen Calle [facility] XR HAND 3+ VW RIGHT 2022-12-05 19:34:10 Karen Calle [facility] US DUPLEX VENOUS ARM 2022-12-01 06:36:00 Mali Gallagher [facility] RIGHT - BY VASCULAR LAB [facility] CONSENT/REFUSAL FOR 2022-12-01 04:30:18 Doctor Unassigned, [facility] DIAGNOSIS AND TREATMENT [facility] POCT GLUCOSE (AUTOMATED) 2022-11-30 01:17:00 Angelito Chacon versity of [facility] POCT GLUCOSE (AUTOMATED) 2022-11-29 21:29:00 Angelito Chacon Uni versity of [facility] POCT GLUCOSE (AUTOMATED) 2022-11-29 16:37:00 Angelito Chacon versity of [facility] POCT GLUCOSE (AUTOMATED) 2022-11-29 12:24:00 Angelito Chacon versity of [facility] COMP. METABOLIC PANEL 2022-11-29 09:04:00 Cassia Araiza [facility] ([id number]) [facility] CBC WITH DIFF 2022-11-29 09:04:00 Teodora [facility] f [facility] POCT GLUCOSE (AUTOMATED) 2022-11-29 09:03:00 Angelito Chacon versity of [facility] POCT GLUCOSE (AUTOMATED) 2022-11-29 04:17:00 Angelito Chacon versity of [facility] POCT GLUCOSE (AUTOMATED) 2022-11-29 00:49:00 Angelito Chacon Uni versity of [facility] POCT GLUCOSE (AUTOMATED) 2022-11-28 22:16:00 Angelito Chacon versity of [facility] POCT GLUCOSE (AUTOMATED) 2022-11-28 21:42:00 Angelito Chacon versity of [facility] POCT GLUCOSE (AUTOMATED) 2022-11-28 16:24:00 Angelito Chacon versity of [facility] CT CHEST PULMONARY 2022-11-28 14:24:19 [facility] ANGIOGRAM [facility] POCT GLUCOSE (AUTOMATED) 2022-11-28 12:37:00 Abdullah, Angelito [facility] LIPID PANEL ([id number])(TOTAL 2022-11-28 11:18:00 Aniceto [facility], HDL) PROCALCITONIN 2022-11-28 11:18:00 Aniceto [facility] POCT GLUCOSE (AUTOMATED) 2022-11-28 11:11:00 Angelito Chacon [facility] POCT GLUCOSE (AUTOMATED) 2022-11-28 05:59:00 Angelito Chacon [facility] POCT GLUCOSE (AUTOMATED) 2022-11-28 04:23:00 Angelito Chacon [facility] HB ECG ROUTINE & RHYTHM 2022-11-27 19:13:13 Marilou Darden [facility] TROPONIN I 2022-11-27 19:12:00 Marilou Darden [facility] hospital COMP. METABOLIC PANEL 2022-11-27 19:12:00 Marilou Darden [facility] ([id number]) [facility] CBC WITH DIFF 2022-11-27 19:12:00 Marilou Darden [facility] acute hospital N-TERMINAL PRO-BNP 2022-11-27 19:12:00 Marilou Darden [facility] POCT GLUCOSE (AUTOMATED) 2022-11-24 21:40:00 Terrence [facility] TROPONIN I 2022-11-24 19:47:00 Erasmo Ocampo [facility] acute hospital COMP. METABOLIC PANEL 2022-11-24 19:47:00 Erasmo Ocampo [facility] ([id number]) [facility] CBC WITH DIFF 2022-11-24 19:47:00 Erasmo Ocampo [facility] acute hospital N-TERMINAL PRO-BNP 2022-11-24 19:47:00 Erasmo Ocampo [facility] EKG-12 LEAD 2022-11-21 23:00:[address] [facility] TROPONIN I 2022-11-21 20:42:[address] [facility] BASIC METABOLIC PANEL 2022-11-21 20:42:00 Pasquale Garcias [facility] (NA, K, CL, CO2, GLUCOSE, Medica l Branch BUN, CREATININE, CA) CBC WITH DIFF 2022-11-21 20:42:[address] [facility] N-TERMINAL PRO-BNP 2022-11-21 20:42:00 Pasquale Garcias [facility] acute hospital CONSENT/REFUSAL FOR 2022-11-21 20:17:39 Doctor Unassigned, [facility] DIAGNOSIS AND TREATMENT [facility] EKG-12 LEAD 2022-10-24 15:50:20 Erasmo Wang [facility] XR CHEST 1 VW 2022-10-24 14:55:12 Erasmo Wang [facility] TROPONIN I 2022-10-24 14:32:00 Erasmo Wang [facility] COMP. METABOLIC PANEL 2022-10-24 14:32:00 Erasmo Wang [facility] ([id number]) [facility] CBC WITH DIFF 2022-10-24 14:32:00 Erasmo Wang [facility] RAPID STREP SCREEN FOR 2022-10-24 14:32:00 Erasmo Wang [facility] GROUP A [facility] RAPID INFLUENZA A/B 2022-10-24 14:32:00 Erasmo Wang [facility] N-TERMINAL PRO-BNP 2022-10-24 14:32:00 Erasmo Wang [facility] COVID-19 (ID NOW RAPID 2022-10-24 14:32:00 Erasmo Wang [facility] TESTING) [facility] POCT GLUCOSE (AUTOMATED) 2022-09-19 17:21:00 Angelito Chacon [facility] TRANSTHORACIC ECHO (TTE) 2022-09-19 15:07:00 Juana Kemp [facility] POCT GLUCOSE (AUTOMATED) 2022-09-19 12:54:00 Angelito Chacon [facility] TROPONIN I 2022-09-19 10:41:00 Juana Kemp [facility] N-TERMINAL PRO-BNP 2022-09-19 10:41:00 Juana Kemp [facility] XR CHEST 1 VW 2022-09-18 19:43:[address] [facility] LIPASE 2022-09-18 19:37:[address] [facility] TROPONIN I 2022-09-18 19:37:[address] [facility] COMP. METABOLIC PANEL 2022-09-18 19:37:00 Dmitry Jha [id number] LIPID PANEL ([id number])(TOTAL 2022-09-18 19:37:00 Juana Kemp [facility] TRIGLYCERIDES, HDL) CBC WITH DIFF 2022-09-18 19:37:[address] [facility] GLYCOSYLATED HEMOGLOBIN 2022-09-18 19:37:00 Juana Kemp [facility] (A1C) [facility] PROTHROMBIN TIME / INR 2022-09-18 19:37:00 Dmitry Jha [facility] ACTIVATED PARTIAL 2022-09-18 19:37:00 Abhijeet [facility] THRMPLAS HERNANDEZ [facility] N-TERMINAL PRO-BNP 2022-09-18 19:37:00 Dmitry Jha [facility] HB ECG ROUTINE & RHYTHM 2022-09-18 19:30:41 Dmitry Jha [facility] EXTERNAL PROVIDER RECORDS 2022-08-26 05:01:00 Doctor Unassigned, [facility] EKG-12 LEAD 2022-08-23 04:28:53 Marilou Darden [facility] acute hospital MAGNESIUM 2022-08-22 23:27:00 Marilou Darden [facility] TROPONIN I 2022-08-22 23:27:00 Marilou Darden [facility] acute hospital COMP. METABOLIC PANEL 2022-08-22 23:27:00 Marilou Darden [facility] ([id number]) [facility] CBC WITH DIFF 2022-08-22 23:27:00 Marilou Darden [facility] acute hospital N-TERMINAL PRO-BNP 2022-08-22 23:27:00 Marilou Darden [facility] NOTICE OF PRIVACY 2022-08-22 22:58:37 Doctor Rupali, [facility] PRACTICES [facility] CONSENT/REFUSAL FOR 2022-08-22 22:57:30 Doctor Rupali, [facility] DIAGNOSIS AND TREATMENT [facility] [place] ASSIGNMENT OF BENEFITS 2022-08-20 20:02:31 Doctor Rupali, [facility] Name [facility] INSURANCE CORRESPONDENCE 2022-08-16 05:01:00 Doctor Rupali, [facility] Name [facility] HEPATIC FUNCTION PANEL 2022-08-10 14:03:00 [facility] ([id number]) (ALB,T.PRO,BILI Medical Branch T,BU/BC,ALT,AST,ALK PHOS) BASIC METABOLIC PANEL 2022-08-10 14:03:00 [facility] (NA, K, CL, CO2, GLUCOSE, Medica l Branch BUN, CREATININE, CA) CBC WITH DIFF 2022-08-10 14:03:00 [facility] POCT GLUCOSE (AUTOMATED) 2022-08-10 13:25:00 Angelito Chacon [facility] POCT GLUCOSE (AUTOMATED) 2022-08-10 12:29:00 Angelito Chacon [facility] POCT GLUCOSE (AUTOMATED) 2022-08-10 01:04:00 Angelito Chacon [facility] POCT GLUCOSE (AUTOMATED) 2022-08-09 21:54:00 Angelito Chacon [facility] COMP. METABOLIC PANEL 2022-08-09 19:37:00 Marilou Draden [facility] ([id number]) [facility] URINALYSIS 2022-08-09 18:42:00 Marilou Darden [facility] XR CHEST 1 VW 2022-08-09 17:27:31 Marilou Darden [facility] TROPONIN I 2022-08-09 17:14:00 Mariluo Darden [facility] CBC WITH DIFF 2022-08-09 17:14:00 Marilou Darden [facility] hospital GLYCOSYLATED HEMOGLOBIN 2022-08-09 17:14:00 Angelito Chacon [facility] (A1C) [facility] N-TERMINAL PRO-BNP 2022-08-09 17:14:00 Marilou Darden [facility] HB ECG ROUTINE & RHYTHM 2022-08-09 17:07:13 Marilou Darden [facility] CONSENT/REFUSAL FOR 2022-08-09 16:59:27 Doctor Unassigned, [facility] DIAGNOSIS AND TREATMENT [place] [facility] INSURANCE CORRESPONDENCE 2022-06-06 06:01:00 Doctor Unassigned, [facility] Name [facility] POCT GLUCOSE (AUTOMATED) 2022-04-04 17:53:00 Aditya Lopez [facility] POCT GLUCOSE (AUTOMATED) 2022-04-04 14:14:00 Aditya Lopez [facility] BASIC METABOLIC PANEL 2022-04-04 10:26:00 Lamar Daniel [facility] (NA, K, CL, CO2, GLUCOSE, Medica l Branch BUN, CREATININE, CA) CBC WITH DIFF 2022-04-04 10:26:00 Lamar helm [facility] POCT GLUCOSE (AUTOMATED) 2022-04-03 23:11:00 Aditya Lopez [facility] POCT GLUCOSE (AUTOMATED) 2022-04-03 19:13:00 Aditya Lopez [facility] POCT GLUCOSE (AUTOMATED) 2022-04-03 14:25:00 Aditya Lopez [facility] PHOSPHORUS 2022-04-03 12:21:[address] [facility] CREATINE KINASE 2022-04-03 12:21:[address] [facility] URIC ACID 2022-04-03 12:21:[address] [facility] MAGNESIUM 2022-04-03 12:21:[address] [facility] CORTISOL AM 2022-04-03 12:21:[address] [facility] TROPONIN I 2022-04-03 12:21:[address] [facility] THYROID STIMULATING 2022-04-03 12:21:00 [facility] COMP. METABOLIC PANEL 2022-04-03 12:21:00 Aditya Lopez [facility] ([id number]) [facility] LIPID PANEL ([id number])(TOTAL 2022-04-03 12:21:00 Aditya Lopez [facility] TRIGLYCERIDES, HDL) N-TERMINAL PRO-BNP 2022-04-03 12:21:00 Aditya Lopez [facility] CBC WITH DIFF 2022-04-03 09:45:[address] [facility] PROCALCITONIN 2022-04-03 09:45:[address] [facility] AC VBG + LACTIC ACID 2022-04-03 09:45:00 Aditya Lopez [facility] PNEUMOCOCCAL ANTIGEN 2022-04-03 07:02:00 Aditya Lopez [facility] UREA NITROGEN, URINE 2022-04-03 06:59:00 Larry jose [facility] SODIUM, URINE RANDOM 2022-04-03 06:59:00 Larry jose [facility] PROTEIN CREAT RATIO URINE 2022-04-03 06:59:00 Aditya Lopez [facility] BLOOD CULTURE SCREEN 2022-04-03 03:11:00 Dmitry Jha [facility] URINALYSIS 2022-04-03 03:11:[address] [facility] URINE CULTURE 2022-04-03 03:11:[address] [facility] XR CHEST 1 VW 2022-04-03 02:33:[address] [facility] LACTIC ACID WHOLE BLOOD 2022-04-03 01:19:00 Dmitry Jha [facility] TROPONIN I 2022-04-03 01:08:00 Abhijeet [facility] COMP. METABOLIC PANEL 2022-04-03 01:08:00 Abhijeet Dmitry [facility] ([id number]) [facility] [place] CBC WITH DIFF 2022-04-03 01:08:00 Abhijeet [facility] PROTHROMBIN TIME / INR 2022-04-03 01:08:00 Dmitry Jha [facility] ACTIVATED PARTIAL 2022-04-03 01:08:00 Abhijeet [facility] THRMPLAS [facility] N-TERMINAL PRO-BNP 2022-04-03 01:08:00 Abhijeet [facility] POCT GLUCOSE (AUTOMATED) 2022-03-28 14:11:00 Asad [facility] POCT GLUCOSE (AUTOMATED) 2022-03-28 02:05:00 Asad [facility] POCT GLUCOSE (AUTOMATED) 2022-03-27 23:52:00 Asad [facility] POCT GLUCOSE (AUTOMATED) 2022-03-27 18:07:00 Asad [facility] HB ECG ROUTINE & RHYTHM 2022-03-27 15:55:[address] [facility] POCT GLUCOSE (AUTOMATED) 2022-03-27 14:36:00 Asad [facility] TRANSTHORACIC ECHO (TTE) 2022-03-27 14:07:00 [facility] MAGNESIUM 2022-03-27 09:02:00 Asad [facility] TROPONIN I 2022-03-27 09:02:00 Juana Kemp [facility] BASIC METABOLIC PANEL 2022-03-27 09:02:00 [facility] (NA, K, CL, CO2, GLUCOSE, Medica l Branch BUN, CREATININE, CA) LIPID PANEL ([id number])(TOTAL 2022-03-27 09:02:00 Juana Kemp [facility] CHOLESTEROL, [facility] TRIGLYCERIDES, HDL) CBC WITH DIFF 2022-03-27 09:02:00 Asad [facility] N-TERMINAL PRO-BNP 2022-03-27 09:02:00 Juana Kemp [facility] TROPONIN I 2022-03-27 03:49:00 Asad [facility] POCT GLUCOSE (AUTOMATED) 2022-03-27 02:34:00 Asad [facility] POCT GLUCOSE (AUTOMATED) 2022-03-26 22:54:00 Asad [facility] CT CHEST PULMONARY 2022-03-26 15:51:11 Dmitry Jha [facility] ANGIOGRAM [facility] BLOOD CULTURE SCREEN 2022-03-26 14:57:00 Dmitry Jha [facility] LACTIC ACID WHOLE BLOOD 2022-03-26 14:57:00 Dmitry Jha [facility] COVID-19 (ID NOW RAPID 2022-03-26 14:11:00 Dmitry Jha [facility] TESTING) Medical Branch LAB ONLY COVID 2022-03-26 14:11:00 Dmitry Jha [facility] INTERPRETATION [facility] XR CHEST 1 VW 2022-03-26 13:37:[address] [facility] TROPONIN I 2022-03-26 13:24:[address] [facility] COMP. METABOLIC PANEL 2022-03-26 13:24:00 Dmitry Jha [facility] ([id number]) [facility] CBC WITH DIFF 2022-03-26 13:24:[address] [facility] PROTHROMBIN TIME / INR 2022-03-26 13:24:00 Dmitry Jha [facility] ACTIVATED PARTIAL 2022-03-26 13:24:00 Dmitry Jha [facility] RAP[facility] INFLU[facility] A/B 2022-03-26 13:24:00 Dmitry Jha [facility] N-TERMINAL PRO-BNP 2022-03-26 13:24:00 Dmitry Jha [facility] acute hospital MEDICAL RELEASE/CLEARANCE 2022-03-26 06:01:00 Doctor Rupali, [facility] FORMS [facility] REFERRAL- 2022-03-15 06:01:00 Doctor Rupali, [facility] REQUEST/RESPONSE [facility] HB ECG ROUTINE & RHYTHM 2022-03-11 22:39:51 Karen Calle [facility] STRIP [facility] FLU VACC (), 6 2022-02-27 19:13:20 Erin Mar [facility] MO-64 YRS, .5ML, IM, QUAD Medica l Branch (FLUCELVAX) DME/SUPPLY JUSTIFICATION 2022-02-27 05:01:00 Doctor Rupali, [facility] INSURANCE CORRESPONDENCE 2022-02-20 05:01:00 Doctor Rupali, [facility] VITAMIN B12, LEVEL 2022-02-11 20:55:00 Luc [facility] FREE T4 2022-02-11 20:55:00 César [facility] THYROID STIMULATING 2022-02-11 20:55:00 Stone Lindsey [facility] HORMONE [facility] COMP. METABOLIC PANEL 2022-02-11 20:55:00 Karen Calle [facility] ([id number]) [facility] URINALYSIS 2022-02-11 20:55:00 [facility] 2022-02-11 20:55:[address] [facility] CBC WITH DIFF 2022-02-11 20:55:00 [facility]INE CULTURE 2022-02-11 20:55:00 Luc [facility] INSURANCE CORRESPONDENCE 2022-01-17 05:01:00 Doctor Rupali [facility] Cervical discectomy [facility] Encounters Start End Encounter Admission Attending Care Care Encounter Source Date/Time Date/Time Type Type Clinicians Facility Department ID 2022-12-17 Outpatient Maurice HERNANDEZ [facility] [id number] Univers 09:22:22 DOUGLAS das [facility] 2022-12-10 [facility] [id number] Univers 17:08:22 DOUGLAS ity of [facility] 2021-06-26 Outpatient 3 [id number] ENCPL OTH [id number] [facility] 10:38:53 [facility]222 [facility] [place] 2021-06-19 Outpatient 3 [id number] ENCPL REF [id number] [facility] 10:09:04 0215 [facility] [place] 2021-03-06 Emergency [facility] [id number] Univers 07:41:02 ity of [facility] 2021-03-05 Emergency [facility] [id number] Univers 22:39:08 ity of [facility] 2021-03-05 Emergency [facility] [id number] Univers 17:57:50 ity of [facility] 2021-03-05 Emergency [facility] [id number] Univers 17:04:02 ity of [facility] 2021-03-05 Emergency [facility] [id number] Univers 14:16:51 ity of [facility] 2021-03-05 Emergency [facility] [id number] Univers 12:57:25 ity of [facility] 2021-03-05 Emergency [facility] [id number] Univers 10:50:30 ity of [facility] 2021-03-05 Emergency [facility] [id number] Univers 09:33:18 ity of [facility] 2021-03-04 [facility] [id number] Univers 14:58:12 DOUGLAS [facility] 2021-03-04 [facility] [id number] Univers 14:17:17 DOUGLAS [facility] 2023-04-08 2023-04-08 Outpatient R KAREN CALLE [facility] [id number] Univers 15:20:00 15:20:00 KAREN CALLE nicky [facility] 2023-03-13 2023-03-13 [facility] [id number] Univers 16:48:50 23:59:00 TYRA thiago [facility] 2023-03-13 2023-03-13 [facility] [id number] Univers 16:48:50 23:59:00 Encounter Tyra Pulliam HEALTH [id number] ity of [facility] [place] [facility] 4.2.7.2.686 Giorgio as ARCHIE?BLEA [id number] [facility] 808 [facility] OFFICE [facility] 2023-03-13 2023-03-13 Office [facility] 1.2.840.114 [id number] Univers 16:30:00 16:50:04 Visit Tyra Pulliam HEALTH [id number] i ty of [facility] [place] [facility] 4.2.7.2.686 Giorgio as ARCHIE?BLEA [id number] [address] 2023-03-13 2023-03-13 [facility] 1.2.840.114 [id number] Univers 00:00:00 00:00:00 Tyra Pulliam HEALTH [id number] i ty of [facility] 4.2.7.2.686 Giorgio as ARCHIE?BLEA [id number] [address] 2023-03-11 2023-03-11 [facility] 1.2.840.114 [id number] Univers 00:00:00 00:00:00 [facility] [id number] ity of [place] 4.2.7.2.686 Giorgio as ARCHIE?BLEA [id number] [address] 2023-03-08 2023-03-08 Emergency X SINGER NHSTEVEN ERT [id number] Univers 20:10:00 20:56:00 NATALI das of [facility] 2023-03-08 2023-03-08 Emergency [facility] [id number] Univers 20:10:00 20:56:00 Natali DANIEL [id number] i ty of [place].2.7.2.686 [place] [id number] [address] 2023-03-07 2023-03-07 Outpatient R KAREN CALLE [facility] [id number] Univers 15:40:00 16:19:11 [facility] 2023-03-07 2023-03-07 Office [facility] 1.2.840.114 [id number] Univers 15:40:00 16:19:11 Visit [facility] [id number] ity of [place] 4.2.7.2.686 Giorgio as ARCHIE?BLEA [phone] [address] OFFICE [facility] 2023-03-07 2023-03-07 Emergency X [facility] ERT [id number] Univers 06:45:00 08:44:00 MARILOU thiago [facility] 2023-03-07 2023-03-07 Emergency [facility] 1.2.840.114 [id number] Univers 06:45:00 08:44:00 Marilou MONTES [id number] ity of [place].2.7.2.[place] [id number] [place] [address]924 [place] 2023-03-07 2023-03-07 [facility] 1.2.840.114 [id number] Univers 00:00:00 00:00:00 [facility] [id number] ity of [place] 4.2.7.2.686 Giorgio as ARCHIE?BLEA [phone] [address] OFFICE [facility] 2023-03-06 2023-03-06 [facility] 1.2.840.114 [id number] Univers 00:00:00 00:00:00 LamarFormerly [facility] [id number] ity of [facility] 4.2.7.2.686 [place] AT [phone] Ne santos RESTREPO [address] [place] [address] 2023-03-04 2023-03-04 [facility] [id number] Univers 05:36:00 11:44:00 LAMAR das [facility] 2023-03-04 2023-03-04 [facility] 1.2.840.114 [id number] Univers 05:36:00 11:44:00 Encounter [facility] [id number] it[place] of [place]2.7.2.686 [place] [id number] [address] ([facility]) 2023-03-04 2023-03-04 Surgery [facility] 1.2.840.114 [id number] Univers 07:00:00 08:52:00 Lamar SPECIALTY [id number] ity of [place]2.7.2.686 [place] AT [id number] Ne santhoshhermelinda RESTREPO 020 [facility] 2023-03-04 2023-03-04 Telephone [facility] [id number] Univers 00:00:00 00:00:00 Lamar SPECIALTY [id number] it[place].2.[place] [id number] Ne santhoshhermelinda MAYBERRY 201 [facility] 2023-03-04 2023-03-04 Orders Doctor BERT 1.2.840.114 [id number] Univers 00:00:00 00:00:00 Only Unassigned, RUTH ANN 350.1.13.10 ity of [place] [facility] 4.2.7.2.686 Giorgio as [id number] [facility] 009 [place] 2023-02-27 2023-02-27 Medical Review Specialist Lab, Nicholas Dean [facility] 1.2.840.1 [id number] Univers 11:00:00 11:15:00 Visit [facility] Calle [facility] 350.1.13.10 ity of [place] 4.2.7.2.686 Giorgio as ARCHIE?BLEA [phone] Ne santos NUPUR [address] [place] MEDICAL OFFICE BUILDING 2023-02-27 2023-02-27 Outpatient R KAREN CALLE [facility] [id number] Univers 11:00:00 11:00:00 KAREN CALLE nicky [facility] 2023-02-20 2023-02-20 Outpatient R KAREN CALLE [facility] [id number] Univers 13:40:00 13:40:00 KAREN CALLE [facility] 2023-02-19 2023-02-19 Cindy Rosario [facility] 1.2.840.114 [id number] Univers 00:00:00 00:00:00 [facility] 350.1.13.10 it y of [place] 4.2.7.2.686 Giorgio as ARCHIE?BLEA [phone] Ne santos SCHUSTER 044 [place] MEDICAL OFFICE BUILDING 2023-02-17 2023-02-17 [facility] 1.2.840.114 [id number] Univers 00:00:00 00:00:00 [facility] HEALTH 350.1.13.10 it y of [place] 4.2.7.2.686 Giorgio as ARCHIE?BLEA [id number] Ne santos SCHUSTER [address] [place] [address] MEDICAL OFFICE [facility] 2023-02-17 2023-02-17 [facility] 1.2.840.114 [id number] Univers 00:00:00 00:00:00 [facility] 350.1.13.10 it y of [place] 4.2.7.2.686 Giorgio as ARCHIE?BLEA [phone] Ne santos SCHUSTER [address] [place] [address] MEDICAL OFFICE [facility] 2023-02-13 2023-02-13 Nurse Mary Grace Craft 1.2.840.114 [id number] Univers 00:00:00 00:00:00 Triage RUTH ANN 350.1.13.10 it y of HOSPITAL 4.2.7.2.686 Giorgio as [id number] [address] 2023-02-13 2023-02-13 Telephone [facility] 1.2.237.132 [id number] Univers 00:00:00 00:00:00 Lamar SPECIALTY 350.1.13.10 it[place] [id number] Ne santos RESTREPO 201 [facility] 2023-02-11 2023-02-11 Refill [facility] 1.2.840.114 [id number] Univers 00:00:00 00:00:00 [employer] [place] HEALTH 350.1.13.10 ity of [place] 4.2.7.2.686 Giorgio as ARCHIE?BLEA [id number] Ne santos SCHUSTER [address] [place] [address] MEDICAL OFFICE [facility] 2023-02-10 2023-02-10 Refill [facility] 1.2.840.114 [id number] Univers 00:00:00 00:00:00 Pineda HEALTH 350.1.13.10 it y of [place] 4.2.7.2.686 Giorgio as ARCHIE?BLEA [id number] Ne santos SCHUSTER 044 [facility] OFFICE [facility] 2023-02-10 2023-02-10 Telephone [facility] [id number] Univers 00:00:00 00:00:00 Lamar SPECIALTY 350.1.13.10 it[place].2.[place] AT [phone] Ne santos RESTREPO 201 [facility] 2023-02-07 2023-02-07 Telephone [facility] [id number] Univers 00:00:00 00:00:00 [employer] [place] HEALTH 350.1.13.10 ity of [place] [facility] 4.2.7.2.686 Giorgio as ARCHIE?BLEA [phone] Ne santhoshil LANDEN [address] [place] [address] 2023-02-07 2023-02-07 Orders Doctor BERT [id number] Univers 00:00:00 00:00:00 Only Unassigned, RUTH ANN 350.1.13.10 ity of [place] [facility] 4.2.7.2.686 Giorgio as [phone] [address] 2023-02-05 2023-02-05 [facility] [id number] Univers 00:00:00 00:00:00 [place] [facility] [id number] [facility] 4.2.7.2.686 Giorgio as ARCHIE?BLEA [phone] [address] OFFICE [facility] 2023-02-04 2023-02-04 Orders Doctor BERT 1.2.840.114 [id number] Univers 00:00:00 00:00:00 Only Unassigned, RUTH ANN 350.1.13.10 ity of [place] [facility] 4.2.7.2.686 Giorgio as [phone] [address] 2023-02-03 2023-02-03 Orders Doctor BERT 1.2.840.114 [id number] Univers 00:00:00 00:00:00 Only Unassigned, RUTH ANN 350.1.13.10 ity of [place] [facility] 4.2.7.2.686 Giorgio as [id number] [address] 2023-01-31 2023-01-31 Outpatient R JUSTO [facility] [id number] Univers 09:00:00 09:00:00 SENDIL itnicky [facility] 2023-01-27 2023-01-27 Outpatient R JACE [facility] [id number] Univers 13:30:00 16:24:49 LAMAR das [facility] 2023-01-27 2023-01-27 [facility] 1.2.840.114 [id number] Univers 13:30:00 16:24:49 Visit Lamar WILHELM 350.1.13.10 it[place] [phone] [facility] 201 [facility] 2023-01-27 2023-01-27 Telephone [facility] 1.2.540.667 [id number] [id number] Univers 00:00:00 00:00:00 Sendil [facility]. HEALTH 350.1.13.10 it[place] [phone] [facility] [address] [place] OFFICE BUILDING 2023-01-27 2023-01-27 Telephone [facility] 1.2.350.101 3516 [id number] Univers 00:00:00 00:00:00 Karen HEALTH 350.1.13.10 ity of [place] 4.2.7.2.686 Giorgio as ARCHIE?BLEA [phone] Ne santhoshhermelinda SCHUSTER [address] [place] MEDICAL OFFICE BUILDING 2023-01-24 2023-01-24 Telephone [facility] 1.2.770.442 [id number] [id number] Univers 00:00:00 00:00:00 Karen HEALTH 350.1.13.10 ity of [place] 4.2.7.2.686 Giorgio as ARCHIE?BLEA [phone] [address] OFFICE [facility] 2023-01-24 2023-01-24 Orders Doctor BERT 1.2.840.114 [id number] Univers 00:00:00 00:00:00 Only Unassigned, RUTH ANN 350.1.13.10 ity of [place] [facility] 4.2.7.2.686 Giorgio as [id number] [address] 2023-01-23 2023-01-23 Telephone [facility], [facility] 1.2.985.313 4030 [id number] Univers 00:00:00 00:00:00 Karen HEALTH 350.1.13.10 ity of [place] 4.2.7.2.686 Giorgio as ARCHIE?BLEA [id number] [address] 2023-01-22 2023-01-22 Orders Doctor BERT 1.2.840.114 [id number] Univers 00:00:00 00:00:00 Only Unassigned, RUTH ANN 350.1.13.10 ity of [place] [facility] 4.2.7.2.686 Giorgio as [id number] [address] 2023-01-22 2023-01-22 Telephone [facility] 1.2.353.066 [id number] [id number] Univers 00:00:00 00:00:00 Karen HEALTH 350.1.13.10 ity of [place] 4.2.7.2.686 Giorgio as ARCHIE?BLEA [id number] [address] 2023-01-09 2023-01-09 Refill [facility], [facility] 1.2.840.114 [id number] Univers 00:00:00 00:00:00 Karen HEALTH 350.1.13.10 ity of [place] 4.2.7.2.686 Giorgio as ARCHIE?BLEA [phone] [address] 2023-01-06 2023-01-06 Patient Doctor [facility] 1.2.840.114 [id number] Univers 00:00:00 00:00:00 Secure Msg Unassigned, HEALTH 350.1.13.10 ity of [place] 4.2.7.2.686 Giorgio as ARCHIE?BLEA [phone] Me santos SCHUSTER [address] [place] MEDICAL OFFICE BUILDING 2023-01-02 2023-01-02 Telephone Mary [facility] 1.2.840.114 10 [id number] Univers 00:00:00 00:00:00 [facility] 350.1.13.10 it y of [place] 4.2.7.2.686 Giorgio as ARCHIE?BLEA [phone] Me santos SCHUSTER [address] [place] MEDICAL OFFICE BUILDING 2022-12-30 2022-12-30 Telephone uJanitanicky [facility] 1.2.465.603 [id number] [id number] Univers 00:00:00 00:00:00 [place] HEALTH 350.1.13.10 ity of [facility] 4.2.7.2.686 Giorgio as ARCHIE?BLEA [phone] Ne santos SCHUSTER [address] [place] MEDICAL OFFICE [facility] 2022-12-26 2022-12-26 Patient Doctor [facility] 1.2.840.114 [id number] Univers 00:00:00 00:00:00 Secure Msg Unassigned, [facility] HEALTH 350.1.13.10 ity of [place].2.7.2.686 [place] kwaku HARRIS [phone] [facility] [address] ([facility]) 2022-12-20 2022-12-20 Telephone Jose [facility] 1.2.039.590 1031 [id number] Univers 00:00:00 00:00:00 Denisha HEALTH 350.1.13.10 it y of [place] [place] [facility] 4.2.7.2.686 Giorgio as ARCHIE?BLEA [phone] Ne santos SCHUSTER [address] [place] MEDICAL OFFICE [facility] 2022-12-19 2022-12-19 Outpatient R ANNEL [facility] [id number] Univers 16:40:00 17:37:59 NEPTALI das [facility] 2022-12-19 2022-12-19 Urgent Neptali Up [facility] 1.2.840.11 4 [id number] Univers 16:40:00 17:37:59 Care Unknown, Attending HEALTH 350.1.13.10 ity of [place] [facility] 4.2.7.2.686 Giorgio as ARCHIE?BLEA [id number] Ne santos SCHUSTER [address] [place] MEDICAL OFFICE [facility] 2022-12-16 2022-12-16 Outpatient R JOSE [facility] [id number] Univers 11:40:00 12:08:17 DENISHA ity of [facility] 2022-12-16 2022-12-16 Urgent Denisha Garcia [facility] 1.2.840.114 1 [id number] Univers 11:40:00 12:00:00 Care Unknown, [facility] HEALTH 350.1.13.10 ity of [place] [facility] 4.2.7.2.686 Giorgio as ARCHIE?BLEA [phone] Ne santos SCHUSTER 370 [facility] OFFICE [facility] 2022-12-16 2022-12-16 Prep For Felipe [facility] 1.2.840.114 [id number] Univers 00:00:00 00:00:00 Surgery [facility] 350.1.13.10 it y of [place] [facility] 4.2.7.2.686 Giorgio as ARCHIE?BLEA [phone] Ne dichermelinda SCHUSTER 198 [facility] OFFICE [facility] 2022-12-16 2022-12-16 Orders Doctor BERT 1.2.840.114 [id number] Univers 00:00:00 00:00:00 Only Unassigned, RUTH ANN 350.1.13.10 ity of [place] [facility] 4.2.7.2.686 Giorgio as [id number] [facility] [address] [place] 2022-12-12 2022-12-12 Telephone [facility] 1.2.700.674 [id number] [id number] Univers 00:00:00 00:00:00 [facility] 350.1.13.10 ity of [place] [facility] 4.2.7.2.686 Giorgio as ARCHIE?BLEA [phone] Ne dichermelinda SCHUSTER [address] [place] MEDICAL OFFICE [facility] 2022-12-12 2022-12-12 Patient Doctor BERT 1.2.840.114 [id number] Univers 00:00:00 00:00:00 Secure Msg Unassigned, RUTH ANN 350.1.13.10 ity of [place] [facility] 4.2.7.2.686 Giorgio as [phone] [facility] [address] [place] 2022-12-10 2022-12-10 Orders Doctor BERT 1.2.840.114 [id number] Univers 00:00:00 00:00:00 Only Unassigned, RUTH ANN 350.1.13.10 ity of [place] [facility] 4.2.7.2.686 Giorgio as [phone] [address] 2022-12-09 2022-12-09 Outpatient R FELIPE [facility] [id number] Univers 08:30:00 10:57:14 MOE ity [facility] 2022-12-09 2022-12-09 Office [facility] 1.2.840.114 [id number] Univers 08:30:00 10:57:14 Visit [facility] 350.1.13.10 it y of [place] [facility] 4.2.7.2.686 Giorgio as ARCHIE?BLEA [phone] [facility] 198 [facility] OFFICE [facility] 2022-12-09 2022-12-09 Telephone [facility] 1.2.480.435 [id number] Univers 00:00:00 00:00:00 [facility] 350.1.13.10 ity of [place] [facility] 4.2.7.2.686 Giorgio as ARCHIE?BLEA [phone] [facility] 044 [facility] 2022-12-09 2022-12-09 Orders Doctor BERT 1.2.840.114 [id number] Univers 00:00:00 00:00:00 Only Unassigned, RUTH ANN 350.1.13.10 ity of [place] [facility] 4.2.7.2.686 Giorgio as [phone] [address] 2022-12-06 2022-12-06 Outpatient R KAREN CALLE [facility] [id number] Univers 16:00:00 16:35:47 [facility] 2022-12-06 2022-12-06 Office [facility] 1.2.840.114 [id number] Univers 16:00:00 16:35:47 Visit [facility] 350.1.13.10 ity of [place] [facility] 4.2.7.2.686 Giorgio as ARCHIE?BLEA [id number] [address] OFFICE [facility] 2022-12-06 2022-12-06 Orders Doctor BERT 1.2.840.114 [id number] Univers 00:00:00 00:00:00 Only Unassigned, RUTH ANN 350.1.13.10 ity of [place] [facility] 4.2.7.2.686 Giorgio as [phone] [address] 2022-12-06 2022-12-06 [facility] 1.2.986.725 [id number] Univers 00:00:00 00:00:00 Karen HEALTH 350.1.13.10 ity of [place] 4.2.7.2.686 Giorgio as ARCHIE?BLEA [phone] Ne santos PADILL[address] 2022-12-05 2022-12-05 [facility] 1.2.840.114 [id number] Univers 14:26:57 23:59:00 Encounter Karen HEALTH 350.1.13.10 ity of [place] 4.2.7.2.686 Giorgio as ARCHIE?BLEA [id number] [facility] [address] [place] [address] 2022-12-05 2022-12-05 Outpatient R JUANITANicky [facility] [id number] Univers 15:20:00 15:20:00 [facility] 2022-12-05 2022-12-05 Outpatient R JUANITANicky [facility] [id number] Univers 14:23:32 14:25:00 LUCJOELKAREN [facility] 2022-12-05 2022-12-05 [facility] 1.2.840.114 [id number] Univers 14:23:32 14:25:00 Encounter Karen HEALTH 350.1.13.10 ity of [place] 4.2.7.2.686 Giorgio as ARCHIE?BLEA [id number] [address] OFFICE [facility] 2022-12-05 2022-12-05 [facility] 1.2.840.114 [id number] Univers 14:16:28 14:22:00 Encounter Karen HEALTH 350.1.13.10 ity of [place] 4.2.7.2.686 Giorgio as ARCHIE?BLEA [phone] Ne santos SCHUSTER 809 [facility] OFFICE [facility] 2022-12-05 2022-12-05 Office [facility] 1.2.840.114 [id number] Univers 13:20:00 14:15:03 Visit [facility] 350.1.13.10 ity of [place] 4.2.7.2.686 Giorgio as ARCHIE?BLEA [id number] Ne santos SCHUSTER 044 [facility] OFFICE [facility] 2022-12-05 2022-12-05 Telephone [facility] 1.2.601.204 [id number] Univers 00:00:00 00:00:00 Shidouglasn [facility]UNITED [facility] 350.1.13.10 i ty of [place].2.[place].2.[place] [phone] Ne santhoshil KYREE 085 [facility] 2022-12-04 2022-12-04 Telephone [facility] 1.2.314.104 [id number] [id number] Univers 00:00:00 00:00:00 [facility] [place] 350.1.13.10 i ty [place].2.7.2.[place] [phone] [facility] KYREE [address] [place] [address] 2022-12-02 2022-12-02 Patient Doctor BERT 1.2.840.114 [id number] Univers 00:00:00 00:00:00 Secure Msg Unassigned, RUTH ANN 350.1.13.10 ity of [place] [facility] 4.2.7.2.686 Giorgio as [phone] [address] 2022-11-30 2022-12-01 Emergency X [facility] ERT [id number] Univers 23:49:00 03:09:00 MALI ity of [facility] 2022-11-30 2022-12-01 Emergency [facility] 1.2.895.337 [id number] Univers 23:49:00 03:09:00 Mali [facility]UNITED [facility] 350.1.13.10 ity of [place] 4.2.7.2.686 [place] [id number] [address] 2022-11-27 2022-11-30 Outpatient X ASAD [facility] NOEMI [id number] Univers 13:58:00 11:40:00 MARCELO nicky [facility] 2022-11-27 2022-11-30 Emergency Marilou Darden [facility] 1.2.8 40.114 [id number] Univers 13:58:00 11:40:00 Angelito Chacon 350.1.13.10 ity of [facility] 4.2.7.2.686 [facility] [phone] [address] 2022-11-25 2022-11-25 Telephone [facility] 1.2.925.921 [id number] [id number] Univers 00:00:00 00:00:00 [facility] 350.1.13.10 ity of [place] 4.2.7.2.686 Giorgio as ARCHIE?BLEA [phone] [address] MEDICAL OFFICE BUILDING 2022-11-24 2022-11-24 Emergency [facility] [id number] Univers 14:39:00 17:50:00 ERASMO [facility] 2022-11-24 2022-11-24 Emergency [facility] 1.2.840.114 1 [id number] Univers 14:39:00 17:50:00 Erasmo MONTES 350.1.13.10 i ty of [place] 4.2.7.2.686 [facility] [id number] [address] 2022-11-21 2022-11-21 Emergency X [facility]AVID [facility] ERT [id number] Univers 15:30:00 18:21:00 PASQUALE nicky [facility] 2022-11-21 2022-11-21 Emergency [facility] 1.2.928.194 [id number] Univers 15:30:00 18:21:00 Pasquale MONTES 350.1.13.10 i ty of [place] 4.2.7.2.686 [facility] [id number] [address] 2022-11-21 2022-11-21 Telephone [facility] 1.2.863.703 [id number] Univers 00:00:00 00:00:00 [place] HEALTH 350.1.13.10 ity of [place] 4.2.7.2.686 Giorgio as ARCHIE?BLEA [id number] [address] OFFICE [facility] 2022-11-19 2022-11-19 Outpatient R JUANITANickyKAREN [facility] [id number] Univers 15:00:00 15:26:45 JOEL CALLEINE itnicky [facility] 2022-11-19 2022-11-19 Office [facility] 1.2.840.114 [id number] Univers 15:00:00 15:26:45 Visit [facility] 350.1.13.10 ity of [place] 4.2.7.2.686 Giorgio as ARCHIE?BLEA [id number] [address] OFFICE [facility] 2022-11-19 2022-11-19 Telephone [facility] 1.2.955.059 [id number] Univers 00:00:00 00:00:00 [facility] 350.1.13.10 ity of [place] 4.2.7.2.686 Giorgio as ARCHIE?BLEA [id number] [address] OFFICE [facility] 2022-11-15 2022-11-15 Telephone UnassMAXIMINO marcus 1.2.840.114 [id number] Univers 00:00:00 00:00:00 Cath/Ep RUTH ANN 350.1.13.10 it y of [facility] 4.2.7.2.686 Giorgio as [id number] [address] 2022-11-14 2022-11-14 Outpatient R JUSTO [facility] CCA [id number] Univers 00:00:00 00:00:00 SENDIL ity [facility] 2022-11-11 2022-11-11 Telephone MAXIMINO Kemp 1.2.601.906 [id number] Univers 00:00:00 00:00:00 Sendil K.[facility]. RUTH ANN 350.1.13.10 ity of [facility] 4.2.7.2.686 Giorgio as [phone] [address] 2022-10-30 2022-10-30 Refill [facility] 1.2.840.114 [id number] Univers 00:00:00 00:00:00 Karen HEALTH 350.1.13.10 ity of [place] [facility] 4.2.7.2.686 Giorgio as ARCHIE?BLEA [phone] [address] OFFICE [facility] 2022-10-25 2022-10-25 Refill [facility] 1.2.840.114 [id number] Univers 00:00:00 00:00:00 Karen HEALTH 350.1.13.10 ity of [place] [facility] 4.2.7.2.686 Giorgio as ARCHIE?BLEA [phone] [address] 2022-10-24 2022-10-24 Emergency [facility] ERT [id number] Univers 09:18:00 11:38:00 ERASMO ity of [facility] 2022-10-24 2022-10-24 Emergency [facility] 1.2.121.599 [id number] Univers 09:18:00 11:38:00 Erasmo T [place] 350.1.13.10 ity of [place] 4.2.7.2.686 [place] [id number] [facility] [address] [place] 2022-10-23 2022-10-23 Telephone [facility] 1.2.690.012 [id number] [id number] Univers 00:00:00 00:00:00 [facility] 350.1.13.10 ity of [place] 4.2.7.2.686 Giorgio as ARCHIE?BLEA [phone] [address] OFFICE [facility] 2022-10-23 2022-10-23 Telephone [facility] 1.2.718.173 [id number] Univers 00:00:00 00:00:00 Juana GARCIATON 350.1.13.10 ity [facility] 4.2.7.2.686 [place] [facility] [phone] [facility] 059 [facility] 2022-10-16 2022-10-16 Outpatient R BRICE [facility] [id number] Univers 09:20:00 09:20:00 RIAN ity [facility] 2022-10-03 2022-10-03 Outpatient R CASANDRA BARBA [facility] 10 [id number] Univers 13:00:00 13:00:00 CASANDRA BARBA i ty [facility] 2022-09-23 2022-09-23 Telephone MAXIMINO Kemp 1..359.126 7314 [id number] Univers 00:00:00 00:00:00 Sendjohnathan VALLECILLO 350.1.13.10 ity of [facility] 4.2.7.2.686 Giorgio as [phone] [facility] [address] 2022-09-18 2022-09-19 [facility] [id number] Univers 14:26:00 21:00:00 ANGELITO das [facility] 2022-09-18 2022-09-19 Emergency Dmitry Jha [facility] 1..840. 114 [id number] Univers 14:26:00 21:00:00 Angelito Chacon 350.1.13.10 ity of [place].2.7.2.[place] [id number] [facility] [address] 2022-09-19 2022-09-19 Prep For BERT Kemp .2.840.114 [id number] Univers 00:00:00 00:00:00 Surgery Juana VALLECILLO 350.1.13.10 ity [facility] 4.2.7.2.686 Giorgio as [id number] [facility] [address] 2022-09-18 2022-09-18 Outpatient R JUSTO [facility] [id number] Univers 09:00:00 09:00:00 JUANA das [facility] 2022-09-18 2022-09-18 Telephone Justo [facility] 1.2.327.757 [id number] Univers 00:00:00 00:00:00 Juana MONTES 350.1.13.10 ity of [place] 4.2.7.2.686 [place] [facility] [phone] [facility] 059 [facility] 2022-08-26 2022-08-26 Outpatient R CLIFTON POLLARD [facility] [id number] Univers 00:00:00 23:59:00 CLIFTON POLLARD ity [facility] 2022-08-26 2022-08-26 Hospital MAXIMINO Pollard 1.2.840.114 10 [id number] Univers 00:00:00 23:59:00 Encounter Sebastian JIMENEZY 350.1.13.10 ity of [facility] 4.2.7.2.686 Giorgio as [phone] [facility] [address] [place] 2022-08-26 2022-08-26 Orders Doctor NOEL 1.2.840.114 [id number] Univers 00:00:00 00:00:00 Only Unassigned, RUTH ANN 350.1.13.10 ity of [place] [facility] 4.2.7.2.686 Giorgio as [id number] [facility] [address] [place] 2022-08-22 2022-08-22 Emergency X [facility] ERT [id number] Univers 18:01:00 23:34:00 MARILOU [facility] 2022-08-22 2022-08-22 Emergency [facility] 1.2.840.114 10 [id number] Univers 18:01:00 23:34:00 Marilou MONTES 350.1.13.10 ity of [place] 4.2.7.2.686 [place] [facility] [phone] [facility] [address] [place] 2022-08-20 2022-08-20 Office [facility] 1.2.840.114 [id number] Univers 15:20:00 16:06:55 Visit [facility] 350.1.13.10 ity of [place] 4.2.7.2.686 Giorgio as ARCHIE?BLEA [id number] Ne santos PADILLAEY [address] [place] MEDICAL OFFICE [facility] 2022-08-20 2022-08-20 Outpatient R JUSTO [facility] [id number] Univers 11:30:00 11:30:00 SENDIL thiago [facility] 2022-08-20 2022-08-20 Orders Doctor NOEL 1.2.840.114 [id number] Univers 00:00:00 00:00:00 Only Unassigned, RUTH ANN 350.1.13.10 ity of [place] [facility] 4.2.7.2.686 Giorgio as [id number] [facility] [address] [place] 2022-08-19 2022-08-19 Telephone Isabela [facility] 1.2.840.114 10 [id number] Univers 00:00:00 00:00:00 Erin MONTES 350.1.13.10 ity of [place].2.7.2.686 [place] [facility] [id number] Ne dical [facility] 2022-08-16 2022-08-16 Orders Doctor BERT 1.2.840.114 [id number] Univers 00:00:00 00:00:00 Only Unassigned, RUTH ANN 350.1.13.10 ity of [place] [facility] 4.2.7.2.686 Giorgio as [phone] [facility] [address] [place] 2022-08-12 2022-08-12 Patient Doctor BERT 1.2.840.114 [id number] Univers 00:00:00 00:00:00 Secure Msg Unassigned, RUTH ANN 350.1.13.10 ity of [place] [facility] 4.2.7.2.686 Giorgio as [id number] [facility] [address] [place] 2022-08-09 2022-08-10 Outpatient X JOHN NHSTEVEN [facility] [id number] Univers 12:03:00 12:10:00 ANGELITO ity of [facility] 2022-08-09 2022-08-10 Emergency Marilou Darden [facility] 1.2.8 40.114 [id number] Univers 12:03:00 12:10:00 Angelito Chacon 350.1.13.10 ity of [place].2.7.2.686 [place] [id number] [place] [address] [place] 2022-07-27 2022-07-27 Cindy Rosario [facility] 1.2.840.114 [id number] Univers 00:00:00 00:00:00 [facility] 350.1.13.10 it y of [place] 4.2.7.2.686 Giorgio as ARCHIE?BLEA [id number] [address] MEDICAL OFFICE [facility] 2022-07-27 2022-07-27 Refdai Kemp [facility] 1.2.840.114 [id number] Univers 00:00:00 00:00:00 [facility].. HEALTH 350.1.13.10 [facility]y [facility] 4.2.7.2.686 Giorgio as ARCHIE?BLEA [phone] [address] MEDICAL OFFICE [facility] 2022-06-06 2022-06-06 Orders Doctor BERT 1.2.840.114 [id number] Univers 00:00:00 00:00:00 Only Unassigned, RUTH ANN 350.1.13.10 ity of [place] [facility] 4.2.7.2.686 Giorgio as [phone] [facility] [address] [place] 2022-05-30 2022-05-30 [facility]phone [facility] [id number] Univers 00:00:00 00:00:00 [facility] 350.1.13.10 ity of [place] 4.2.7.2.686 Giorgio as ARCHIE?BLEA [phone] [address] MEDICAL OFFICE [facility] 2022-05-20 2022-05-20 Outpatient R HERBERT [facility] [id number] Univers 00:00:00 23:59:00 ERICK ity of [facility] 2022-05-20 2022-05-20 [facility] MAXIMINO Godinez 1.2.840.114 [id number] Univers 00:00:00 23:59:00 Encounter Erick RUTH ANN 350.1.13.10 ity of HOSPITAL 4.2.7.2.686 Giorgio as [id number] [facility] [address] [place] 2022-04-28 2022-04-28 [facility] 1.2.840.114 [id number] Univers 00:00:00 00:00:00 [facility] 350.1.13.10 it y of [place] 4.2.7.2.686 Giorgio as ARCHIE?BLEA [phone] [address] OFFICE [facility] 2022-04-24 2022-04-24 Telephone [facility] 1.2.426.323 [id number] Univers 00:00:00 00:00:00 [facility] 350.1.13.10 ity [facility] 4.2.7.2.686 Giorgio as ARCHIE?BLEA [phone] [address] 2022-04-15 2022-04-15 Outpatient R [facility] [id number] Univers 09:40:00 09:40:00 [facility] 2022-04-12 2022-04-12 Outpatient DENNISE DOAN [id number] [place] 13:30:00 13:30:00 RYAN gilmore 2022-04-02 2022-04-04 [facility] [id number] Univers 19:06:00 14:44:00 ADJOSE [facility] 2022-04-02 2022-04-04 Emergency Dmitry Jha [facility] 1.2.840. 114 [id number] Univers 19:06:00 14:44:00 Aditya Lopez 350.1.13.10 ity [facility] 4.2.7.2.686 [facility] [phone] [address] 2022-04-01 2022-04-01 Outpatient R JUSTO [facility] [id number] Univers 14:30:00 14:30:00 SENDIL [facility] 2022-03-26 2022-03-28 Outpatient X ASAD [facility] [id number] Univers 07:17:00 11:32:00 MARCELO [facility] 2022-03-26 2022-03-28 Emergency Dmitry Jha [facility] 1.2.840. 114 [id number] Univers 07:17:00 11:32:00 Asad Marcelo MONTES 350.1.13.10 ity [facility] 4.2.7.2.686 [facility] [phone] [address] 2022-03-26 2022-03-26 Telephone [facility] 1.2.000.697 [id number] Univers 00:00:00 00:00:00 [facility] 350.1.13.10 ity of [place] 4.2.7.2.686 Giorgio as ARCHIE?BLEA [id number] [address] MEDICAL OFFICE [facility] 2022-03-25 2022-03-25 Patient [facility] 1.2.840.114 [id number] Univers 00:00:00 00:00:00 Outreach Valeria Gil[facility] 350.1.13.10 ity of [place] 4.2.7.2.686 Giorgio as ARCHIE?BLEA [id number] [address] 2022-03-21 2022-03-21 Outpatient R LUC [facility] [id number] Univers 10:20:00 10:20:00 [facility] 2022-03-18 2022-03-18 Outpatient Maurice CALLE [facility] [id number] Univers 11:00:00 11:00:00 [facility] 2022-03-15 2022-03-15 Orders Doctor BERT 1.2.840.114 [id number] Univers 00:00:00 00:00:00 Only Unassigned, RUTH ANN 350.1.13.10 ity of [place] [facility] 4.2.7.2.686 Giorgio as [id number] [address] 2022-03-11 2022-03-11 Outpatient Maurice CALLE [facility] [id number] Univers 15:40:00 17:19:08 [facility] 2022-03-11 2022-03-11 Office [facility] 1.2.840.114 [id number] Univers 15:40:00 17:19:08 Visit [facility] 350.1.13.10 ity of [place] 4.2.7.2.686 Giorgio as ARCHIE?BLEA [phone] [address] OFFICE [facility] 2022-02-27 2022-02-27 Outpatient ERIN FAN [facility] [id number] Univers 15:40:00 15:40:00 KUNAL MARCURTISJuan Diego ity of [facility] 2022-02-27 2022-02-27 Outpatient R DEUCECONOR ERIN [facility] [id number] Univers 13:40:00 14:34:02 ERIN MAR ity of [facility] 2022-02-27 2022-02-27 Office [facility] 1.2.004.833 [id number] Univers 13:40:00 14:34:02 Visit Erin Muna GARCIAFILEMON 350.1.13.10 ity [facility] 4.2.7.2.686 [place] [facility] [phone] Ne santhoshil KYREE 085 [facility] 2022-02-27 2022-02-27 Refdai [facility] 1.2.840.114 [id number] Univers 00:00:00 00:00:00 [facility] 350.1.13.10 it y of [place] 4.2.7.2.686 Giorgio as ARCHIE?BLEA [phone] Ne dicil RANDYEY [address] [place] MEDICAL OFFICE BUILDING 2022-02-27 2022-02-27 Telephone [facility] 1.2.840.114 [id number] Univers 00:00:00 00:00:00 Erin Toro MULTISPEC 350.1.13.10 ity of [place] 4.2.7.2.686 [place] [phone] [facility] AND SHERLYN [address] [place] [facility] 2022-02-27 2022-02-27 Orders Doctor NOEL 1.2.840.114 [id number] Univers 00:00:00 00:00:00 Only Unassigned, RUTH ANN 350.1.13.10 ity of [place] [facility] 4.2.7.2.686 Giorgio as [phone] [facility] [address] 2022-02-25 2022-02-25 Outpatient R STONE LINDSEY [facility] [id number] Univers 15:00:00 15:00:00 STONE LINDSEY ity of [facility] 2022-02-25 2022-02-25 Outpatient R STONE LINDSEY [facility] [id number] Univers 15:00:00 15:00:00 CÉSARSTONE ity of [facility] 2022-02-20 2022-02-20 Orders Doctor BERT 1.2.840.114 [id number] Univers 00:00:00 00:00:00 Only Unassigned, RUTH ANN 350.1.13.10 ity of [place] [facility] 4.2.7.2.686 Giorgio as [phone] [address] 2022-02-13 2022-02-13 Telephone CésarStone [facility] 1.2.740.512 [id number] Univers 00:00:00 00:00:00 HEALTH 350.1.13.10 it y of [place] 4.2.7.2.686 Giorgio as ARCHIE?BLEA [id number] [facility] [address] [place] MEDICAL OFFICE [facility] 2022-02-12 2022-02-12 Telephone [facility] 1.2.482.407 [id number] Univers 00:00:00 00:00:00 Karen HEALTH 350.1.13.10 ity of [place] 4.2.7.2.686 Giorgio as ARCHIE?BLEA [id number] [address] OFFICE [facility] 2022-02-12 2022-02-12 [facility] 1.2.485.392 [id number] Univers 00:00:00 00:00:00 Karen HEALTH 350.1.13.10 ity of [place] 4.2.7.2.686 Giorgio as ARCHIE?BLEA [phone] [address] OFFICE [facility] 2022-02-11 2022-02-11 Outpatient R [facility] [id number] Univers 15:20:00 17:23:39 KAREN ity [facility] 2022-02-11 2022-02-11 Office [facility] 1.2.840.114 [id number] Univers 15:20:00 17:23:39 Visit [facility] 350.1.13.10 ity of [place] 4.2.7.2.686 Giorgio as ARCHIE?BLEA [phone] [address] OFFICE [facility] 2022-02-11 2022-02-11 Medical Review Specialist Lab, Ang - Db [facility] 1.2.840.1 14 [id number] Univers 15:45:00 15:57:14 Visit Karen Calle 350.1.13.10 ity of [place] 4.2.7.2.686 Giorgio as ARCHIE?BLEA [phone] Ne dichermelinda SCHUSTER 353 [facility] OFFICE [facility] 2022-02-08 2022-02-08 Telephone [facility] 1.2.840.114 [id number] Univers 00:00:00 00:00:00 [facility] 350.1.13.10 it y of [place] 4.2.7.2.686 Giorgio as ARCHIE?BLEA [phone] Ne santos SCHUSTER 044 [facility] 2022-02-04 2022-02-04 Refdai [facility] 1.2.840.114 [id number] Univers 00:00:00 00:00:00 Juana [facility]ARCIAUNITED STATES [facility] 350.1.13.10 ity of [place] 4.2.7.2.686 [place] [phone] Ne santos ADORNO 059 [facility] 2022-01-28 2022-01-28 Telephone [facility] 1.2.840.114 [id number] Univers 00:00:00 00:00:00 [facility] 350.1.13.10 it y of [place] 4.2.7.2.686 Giorgio as ARCHIE?BLEA [phone] Ne santos SCHUSTER [address] [place] [address] 2022-01-22 2022-01-22 Telephone [facility] 1.2.840.114 [id number] Univers 00:00:00 00:00:00 [facility] 350.1.13.10 it y of [place] 4.2.7.2.686 Giorgio as ARCHIE?BLEA [phone] Ne dichermelinda SCHUSTER 044 [facility] OFFICE [facility] 2022-01-21 2022-01-21 Outpatient R TARA- [facility] [id number] Univers 16:30:00 16:30:00 Milli CROOKS [facility] 2022-01-17 2022-01-17 Outpatient R LUC [facility] [id number] Univers 14:00:00 14:00:00 KAREN das of [facility] 2022-01-17 2022-01-17 Orders Doctor BERT 1.2.840.114 [id number] Univers 00:00:00 00:00:00 Only Unassigned, RUTH ANN 350.1.13.10 ity of [place] [facility] 4.2.7.2.686 Giorgio as [phone] [address] 2022-01-14 2022-01-14 Outpatient R [facility] [id number] Univers 14:00:00 14:00:00 thiago CROOKS [facility] 2022-01-14 2022-01-14 Telephone Stone Lindsey [facility] 1.2.537.720 [id number] Univers 00:00:00 00:00:00 HEALTH 350.1.13.10 it y of [place] 4.2.7.2.686 Giorgio as ARCHIE?BLEA [phone] [facility] [address] [place] MEDICAL OFFICE [facility] 2022-01-12 2022-01-12 [facility] 1.2.840.114 [id number] Univers 00:00:00 00:00:00 Pineda HEALTH 350.1.13.10 it y of [place] 4.2.7.2.686 Giorgio as ARCHIE?BLEA [phone] [address] OFFICE [facility] 2022-01-10 2022-01-10 [facility] 1.2.840.114 [id number] Univers 00:00:00 00:00:00 Pineda HEALTH 350.1.13.10 it y of [place] 4.2.7.2.686 Giorgio as ARCHIE?BLEA [id number] [address] MEDICAL OFFICE [facility] 2022-01-10 2022-01-10 Transition VALERIO Reyna 1.2.840.114 [id number] Univers 00:00:00 00:00:00 of Care Nathalie B REA 350.1.13.10 it y of [place].2.7.2.686 [place] [id number] [facility] [address] 2022-01-07 2022-01-09 Inpatient X ASAD [facility] [id number] Univers 11:16:00 13:35:00 MARCELOA[facility]a [facility] 2022-01-07 2022-01-09 [facility] Zen Hedrick [facility] 1.2.840 .114 [id number] Univers 11:16:00 13:35:00 Encounter Marcelo KamaraFILEMON 350.1.13.10 ity [place] 4.2.7.2.686 [facility] [id number] [facility] [address] 2022-01-07 2022-01-07 Out[facility] [id number] Univers 11:16:00 11:16:00 [facility] 2022-01-04 2022-01-04 Office [facility] 1.2.840.114 [id number] Univers 14:00:00 14:20:00 Visit [facility] 350.1.13.10 ity [facility] 4.2.7.2.686 Giorgio as ARCHIE?BLEA [id number] [address] MEDICAL OFFICE [facility] 2022-01-04 2022-01-04 Outpatient R [facility] [id number] Univers 14:00:00 14:00:00 [facility] 2022-01-04 2022-01-04 Outpatient R [facility] [id number] Univers 14:00:00 14:00:00 [facility] 2022-01-01 2022-01-01 Telephone [facility] 1.2.840.114 [id number] Univers 00:00:00 00:00:00 [facility] 350.1.13.10 it y of [place] 4.2.7.2.686 Giorgio as ARCHIE?BLEA [phone] [address] MEDICAL OFFICE [facility] 2022-01-01 2022-01-01 Telephone [facility] 1.2.840.114 [id number] Univers 00:00:00 00:00:00 [facility] HEALTH 350.1.13.10 it y of [place] GARCIAUNITED STATES AIR FORCE [facility] 4.2.7.2.686 Giorgio as ARCHIE?BLEA [phone] Ne santos [address] MEDICAL OFFICE [facility] 2021-12-29 2021-12-29 Emergency X [facility] ERT [id number] Univers 14:17:00 15:30:00 MARILOU [facility] 2021-12-29 2021-12-29 Emergency [facility]inaUN[facility] 1.2.840.114 [id number] Univers 14:17:00 15:30:00 Marilou GARCIAUNITED STATES AIR FORCE [facility] 350.1.13.10 ity [facility] 4.2.7.2.686 [place] [facility] [id number] [address] 2021-12-28 2021-12-28 [facility]UN[facility] 1.2.840.114 [id number] Univers 00:00:00 00:00:00 [facility] 350.1.13.10 it y of [place] 4.2.7.2.686 Giorgio as ARCHIE?BLEA [phone] Ne santos [address] MEDICAL OFFICE [facility] 2021-12-25 2021-12-25 Outpatient R MARTINAULTMAN [facility] [id number] Univers 13:30:00 13:30:00 [facility] 2021-12-21 2021-12-21 Outpatient R JUSTOAULTMAN [facility] [id number] Univers 08:30:00 08:30:00 SENDIL [facility] 2021-12-21 2021-12-21 Outpatient R JUSTOAULTMAN [facility] [id number] Univers 08:30:00 08:30:00 SENDIL [facility] 2021-12-21 2021-12-21 Outpatient R LORRIE [facility] [id number] Univers 08:00:00 08:00:00 JOVANY [facility] 2021-12-18 2021-12-18 Outpatient R REESE, [facility] [id number] Univers 15:30:00 15:30:00 AUGUST ity [facility] 2021-12-14 2021-12-14 Outpatient R LUCAULTMAN [facility] [id number] Univers 16:20:00 16:20:00 KAREN ity [facility] 2021-12-05 2021-12-06 Emergency [facility] ERT [id number] Univers 19:44:00 00:30:00 MALI y [facility] 2021-12-05 2021-12-06 Emergency [facility] 1.2.541.430 [id number] Univers 19:44:00 00:30:00 [facility] [place] 350.1.13.10 ity of [facility] 4.2.7.2.686 [place] [facility] [id number] [address] 2021-12-05 2021-12-06 Emergency X [facility] ERT [id number] Univers 19:44:00 00:30:00 [facility] 2021-12-05 2021-12-05 Transition VALERIO Cottrell 1.2.840.114 [id number] Univers 00:00:00 00:00:00 of Care Maura REA 350.1.13.10 i ty of [place] 4.2.7.2.686 [place] [id number] [facility] [address] [place] 2021-12-05 2021-12-05 Telephone [facility] 1.2.903.018 [id number] Univers 00:00:00 00:00:00 [facility] 350.1.13.10 it y of [place] [facility] 4.2.7.2.686 Giorgio as ARCHIE?BLEA [phone] Ne santos [address] MEDICAL OFFICE BUILDING 2021-12-02 2021-12-04 Inpatient X ASAD [facility] [id number] Univers 14:16:00 12:25:00 MARCELO das [facility] 2021-12-02 2021-12-04 [facility] Pasquale Garcias [facility] 1.2.840.11 [id number] Univers 14:16:00 12:25:00 Encounter Marcelo Kamara 350.1.13.10 ity of [facility] 4.2.7.2.686 [place] [id number] [place] [address] [place] 2021-11-23 2021-11-23 Outpatient R JUSTO [facility] [id number] Univers 10:00:00 10:40:04 SENDIL ity [facility] 2021-11-23 2021-11-23 Office [facility] 1.2.840.114 [id number] Univers 10:00:00 10:40:04 Visit Sendil ManjuJanetDeanaJanet MONTES 350.1.13.10 ity [facility] 4.2.7.2.686 [place] [facility] [phone] Ne dical [facility] 059 [facility] 2021-11-23 2021-11-23 Outpatient R [facility]OA[facility] [id number] Univers 10:00:00 10:40:04 SENDIL [facility] 2021-11-23 2021-11-23 Outpatient R [facility] [id number] Univers 10:00:00 10:00:00 SENDIL [facility] 2021-11-22 2021-11-22 Outpatient R KENNY [facility] [id number] Univers 11:00:00 11:00:00 TYRA nicky [facility] 2021-11-21 2021-11-21 Emergency X [facility] ERT [id number] Univers 10:17:00 15:01:00 MARILOU nicky [facility] 2021-11-21 2021-11-21 Emergency [facility]UN[facility] 1.2.840.114 [id number] Univers 10:17:00 15:01:00 Marilou MONTES 350.1.13.10 ity [facility] 4.2.7.2.686 [place] [phone] [facility] [address] [place] 2021-11-21 2021-11-21 Emergency X [facility]UN[facility] ERT [id number] Univers 10:17:00 15:01:00 MARILOU das [facility] 2021-11-21 2021-11-21 Office Stone Lindsey [facility] 1.2.840.114 [id number] Univers 09:30:00 09:55:44 Visit [facility] 350.1.13.10 it y of [place] 4.2.7.2.686 Giorgio as ARCHIE?BLEA [phone] Ne dical KNEY [address] [place] MEDICAL OFFICE BUILDING 2021-11-21 2021-11-21 Outpatient R STONE LINDSEY [facility] [id number] Univers 09:30:00 09:55:44 STONE LINDSEY [facility] 2021-11-21 2021-11-21 Outpatient R STONE LINDSEY [facility] [id number] Univers 09:30:00 09:30:00 CÉSARSTONE Armenta [facility] 2021-11-21 2021-11-21 Telephone [facility] 1.2.773.828 [id number] Univers 00:00:00 00:00:00 Juana MONTES 350.1.13.10 [facility] 4.2.7.2.686 [place] [facility] [id number] Ne santos NAL 059 [facility] 2021-11-19 2021-11-19 Outpatient R NABOR [facility] [id number] Univers 14:00:00 14:00:00 RUPA [facility] 2021-11-17 2021-11-17 Emergency [facility]RT [id number] Univers 17:33:00 21:43:00 JONATHON [facility] 2021-11-17 2021-11-17 Emergency [facility] 1.2.737.528 [id number] Univers 17:33:00 21:43:00 Jonathon MONTES 350.1.13.10 [facility] 4.2.7.2.686 [place] [id number] [facility] [address] [place] 2021-11-17 2021-11-17 Emergency X [facility] ERT [id number] Univers 17:33:00 21:43:00 JONATHON [facility] 2021-11-16 2021-11-16 Outpatient R HERBERTAULTMAN [facility] [id number] Univers 00:00:00 23:59:00 ERICK [facility] 2021-11-16 2021-11-16 [facility] MAXIMINO Godinez 1.2.840.114 [id number] Univers 00:00:00 23:59:00 Encounter Erick RUTH ANN 350.1.13.10 ity of [facility] 4.2.7.2.686 Giorgio as [id number] [facility] [address] 2021-11-15 2021-11-15 Telephone Abraham [facility] 1.2.840.114 [id number] Univers 00:00:00 00:00:00 Pineda MONTES 350.1.13.10 i ty of [facility] 4.2.7.2.686 [place] [phone] Ne dical NAL 044 [facility] 2021-11-12 2021-11-12 Case BERT Kemp 1.2.840.114 [id number] Univers 00:00:00 00:00:00 Management Juana VALLECILLO 350.1.13.10 ity of [facility] 4.2.7.2.686 Giorgio as [phone] [facility] [address] 2021-11-10 2021-11-11 Outpatient [facility] [id number] Univers 18:51:00 13:50:00 CYNDIE [facility] 2021-11-10 2021-11-11 Emergency NicaerFlorence nam [facility] 1.2.840.114 [id number] Univers 18:51:00 13:50:00 Cyndie Watters 350.1.13.10 ity of [place] 4.2.7.2.686 [place] [phone] [facility] [address] 2021-11-05 2021-11-05 Orders Doctor BERT 1.2.840.114 [id number] Univers 00:00:00 00:00:00 Only Unassigned, RUTH ANN 350.1.13.10 ity of [place] [facility] 4.2.7.2.686 Giorgio as [id number] [facility] [address] 2021-10-29 2021-10-31 Outpatient Isaura WATTERS [facility] NOEMI [id number] Univers 21:27:00 15:40:00 CYNDIE das [facility] 2021-10-29 2021-10-31 Emergency Dmitry Jha [facility] 1.2.840. 114 [id number] Univers 21:27:00 15:40:00 Aditya Lopez 350.1.13.10 ity of Cyndie Watters [place] 4.2.7.2.686 [facility] [phone] [place] [address] [place] 2021-10-26 2021-10-26 Outpatient R CASANDRA BARBA [facility] [id number] Univers 15:30:00 15:30:00 CASANDRA BARBA i ty of [facility] 2021-10-23 2021-10-24 Emergency X [facility] ERT [id number] Univers 19:52:00 00:13:00 WAKILI ity [facility] 2021-10-23 2021-10-24 Emergency [facility] 1.2.848.990 [id number] Univers 19:52:00 00:13:00 Mali Christensen DANIEL 350.1.13.10 ity of [place] 4.2.7.2.686 [facility] [phone] [address] 2021-10-22 2021-10-22 Outpatient R JUSTO, [facility] [id number] Univers 08:30:00 08:30:00 SENDIL ity of [facility] 2021-10-17 2021-10-18 Emergency X [facility] ERT [id number] Univers 21:05:00 00:23:00 IFEOMA ity [facility] 2021-10-17 2021-10-18 Emergency [facility] 1.2.162.366 [id number] Univers 21:05:00 00:23:00 Ifeoma MONTES 350.1.13.10 i ty of [facility] 4.2.7.2.686 [facility] [id number] [place] [address] [place] 2021-10-18 2021-10-18 Patient Doctor BERT 1.2.840.114 [id number] Univers 00:00:00 00:00:00 Secure Msg Unassigned, RUTH ANN 350.1.13.10 ity of [place] [facility] 4.2.7.2.686 Giorgio [id number] [facility] [address] 2021-10-17 2021-10-17 Orders Doctor BERT 1.2.840.114 [id number] Univers 00:00:00 00:00:00 Only Unassigned, RUTH ANN 350.1.13.10 ity of [place] [facility] 4.2.7.2.686 Giorgio as [id number] [address] 2021-10-17 2021-10-17 Telephone [facility]ovanyUN[facility] 1.2.864.113 [id number] Univers 00:00:00 00:00:00 Wang PRIMARY 350.1.13.10 it y of [place] 4.2.7.2.686 [place] [id number] [address] 2021-10-15 2021-10-15 Outpatient Maurice ROSARIO [facility] [id number] Univers 13:00:00 13:00:00 PINEDA [facility] 2021-10-15 2021-10-15 Telephone [facility] 1.2.840.114 [id number] Univers 00:00:00 00:00:00 [facility] 350.1.13.10 it y of [place] 4.2.7.2.686 Giorgio as ARCHIE?BLEA [phone] [address] MEDICAL OFFICE [facility] 2021-10-10 2021-10-10 Office [facility] 1.2.840.114 [id number] Univers 09:00:00 09:15:00 Visit [facility] 350.1.13.10 it y of [place] 4.2.7.2.686 Giorgio as ARCHIE?BLEA [phone] [address] MEDICAL OFFICE [facility] 2021-10-10 2021-10-10 Outpatient Maurice ROSARIO [facility] [id number] Univers 09:00:00 09:08:28 PINEDA das [facility] 2021-10-10 2021-10-10 Outpatient Maurice ROSARIO [facility] [id number] Univers 09:00:00 09:00:00 PINEDA das [facility] 2021-10-10 2021-10-10 Telephone IVELISSE Owens 1.2.840.114 [id number] Univers 00:00:00 00:00:00 [facility] 350.1.13.10 ity of [facility] 4.2.7.2.686 [place] [id number] [address] 2021-10-03 2021-10-05 Outpatient X GAYELIZABET [facility] NOEMI [id number] Univers 14:23:00 13:25:00 MARCELO ity [facility] 2021-10-03 2021-10-05 Emergency WeaverNatali galvez [facility] 1.2.840. 114 [id number] Univers 14:23:00 13:25:00 Marcelo Kamara DANIEL 350.1.13.10 ity of [place] 4.2.7.2.686 [place] [phone] [address] 2021-09-21 2021-09-21 Telephone Areli [facility] 1.2.532.465 [id number] Univers 00:00:00 00:00:00 Casandra MONTES 350.1.13.10 i ty of [place] 4.2.7.2.686 [place] [phone] Ne dical NAL [address] [place] [address] 2021-09-20 2021-09-20 Outpatient R [facility] [id number] Univers 15:00:00 15:26:58 SENDIL ity [facility] 2021-09-20 2021-09-20 Outpatient R [facility]OA[facility] [id number] Univers 15:00:00 15:26:58 SENDIL ity [facility] 2021-09-20 2021-09-20 [facility] 1.2.840.114 [id number] Univers 15:00:00 15:26:58 Visit Sendil Ochoa MONTES 350.1.13.10 ity of [place] [id number] Ne dic[address] 2021-09-20 2021-09-20 [facility]patient [facility] [id number] Univers 15:00:00 15:26:58 [facility] 2021-09-17 Telephone Abraham [facility] 1.2.840.114 [id number] Univers 00:00:00 00:00:00 [facility] 350.1.13.10 it y of [place] 4.2.7.2.686 Giorgio as ARCHIE?BLEA [phone] [address] MEDICAL OFFICE [facility] 2021-09-11 2021-09-12 Outpatient X LARRY [facility] [id number] Univers 18:16:00 15:20:00 ADNAN ity of [facility] 2021-09-11 2021-09-12 Emergency Natali Weaver [facility] 1.2.840. 114 [id number] Univers 18:16:00 15:20:00 Dmitry Jha 350.1.13.10 ity of LarryAditya 4.2.7.2.686 [facility] [id number] [facility] [address] [place] 2021-09-07 2021-09-07 Transition VALERIO Reyna 1.2.840.114 [id number] Univers 00:00:00 00:00:00 of Care Nathalie REA 350.1.13.10 [place] [phone] [facility] [address] [place] 2021-09-07 2021-09-07 Refdai Rosario [facility] 1.2.840.114 [id number] Univers 00:00:00 00:00:00 [facility] 350.1.13.10 it y of Dipeshguerrero RAD[place]FILEMON 4.2.7.2.686 Giorgio as ARCHIE?BLEA [phone] [address] MEDICAL OFFICE [facility] 2021-09-07 2021-09-07 Patient Doctor BERT 1.2.840.114 [id number] Univers 00:00:00 00:00:00 Secure Msg Unassigned, RUTH ANN 350.1.13.10 ity of [place] [facility] 4.2.7.2.686 Giorgio as [phone] [facility] [address] [place] 2021-08-31 2021-09-06 Inpatient X MILO BRADLEY [facility]ALE [facility] [id number] Univers 23:41:00 18:01:00 ity of [facility] 2021-08-31 2021-09-06 Hospital Kellie Dardenra Christine STANTON 1.2.84 0.114 [id number] Univers 23:41:00 18:01:00 Encounter Marcelo KamaraY 350.1.13.10 ity of [facility] 4.2.7.2.686 Milo Gannon [phone] [place] [id number] [place] 2021-08-31 2021-09-06 Inpatient X [facility]O [facility] [id number] Univers 23:41:00 18:01:00 ity of [facility] 2021-09-05 2021-09-05 Surgery NARESH BlueNIE 1.2.840.114 [id number] Univers 14:34:00 16:34:00 Barber RUTH ANN 350.1.13.10 it y of [facility] 4.2.7.2.686 Giorgio as [phone] [address] 2021-08-31 2021-08-31 Outpatient R JENNIFER [facility] [id number] Univers 09:30:00 09:30:00 SYLVIE ity of [facility] 2021-08-25 2021-08-25 Refill [facility] 1.2.840.114 [id number] Univers 00:00:00 00:00:00 [facility] 350.1.13.10 it y of [facility] 4.2.7.2.686 Giorgio as PROFESSIO [phone] Ne santos ADORNO [address] [place] [address] OFFICE BUILDING ONE 2021-08-24 2021-08-24 Outpatient R [facility] [id number] Univers 11:40:00 11:40:00 ERICK ity of [facility] 2021-08-23 2021-08-23 Telephone [facility] 1.2.840.114 [id number] Univers 00:00:00 00:00:00 [facility] 350.1.13.10 it y of [facility] 4.2.7.2.686 Giorgio as ARCHIE?BLEA [phone] Ne santos SCHUSTER [address] [place] [address] MEDICAL OFFICE BUILDING 2021-08-23 2021-08-23 Telephone [facility] 1.2.840.114 [id number] Univers 00:00:00 00:00:00 Pineda HEALTH 350.1.13.10 it y of [place] 4.2.7.2.686 Giorgio as ARCHIE?BLEA [phone] Ne santos SCHUSTER [address] [place] [address] OFFICE [facility] 2021-08-23 2021-08-23 Orders Doctor BERT 1.2.840.114 [id number] Univers 00:00:00 00:00:00 Only Unassigned, RUTH ANN 350.1.13.10 ity of [place] [facility] 4.2.7.2.686 Giorgio as [phone] [address] 2021-08-22 2021-08-22 Refill [facility] 1.2.840.114 [id number] Univers 00:00:00 00:00:00 Pineda HEALTH 350.1.13.10 it y of [place] 4.2.7.2.686 Giorgio as PROFESSIO [phone] [address] 2021-08-17 2021-08-17 Telephone [facility] 1.2.840.114 [id number] Univers 00:00:00 00:00:00 [facility] HEALTH 350.1.13.10 it y of [place] 4.2.7.2.686 Giorgio as ARCHIE?BLEA [phone] [facility] SCHUSTER [address] [place] [address] OFFICE [facility] 2021-08-15 2021-08-15 Telephone [facility] 1.2.840.114 [id number] Univers 00:00:00 00:00:00 Pineda HEALTH 350.1.13.10 it y of [place] 4.2.7.2.686 Giorgio as ARCHIE?BLEA [phone] [facility] LANDEN [address] [place] [address] OFFICE [facility] 2021-08-15 2021-08-15 Orders Doctor BERT 1.2.840.114 [id number] Univers 00:00:00 00:00:00 Only Unassigned, RUTH ANN 350.1.13.10 ity of [place] [facility] 4.2.7.2.686 Giorgio as [phone] [address] 2021-08-07 2021-08-07 Patient Doctor BERT 1.2.840.114 [id number] Univers 00:00:00 00:00:00 Secure Msg UnassignedRUTH ANN 350.1.13.10 ity of [place] [facility] 4.2.7.2.686 Giorgio as [phone] [facility] 019 [place] 2021-08-06 2021-08-06 Outpatient R HERBERT [facility] [id number] Univers 00:00:00 23:59:00 ERICK ity of [facility] 2021-08-06 2021-08-06 [facility] AMXIMINO Godinez 1.2.840.114 [id number] Univers 00:00:00 23:59:00 Encounter Erick RUTH ANN 350.1.13.10 ity of [facility] 4.2.7.2.686 Giorgio as [phone] [facility] 844 [place] 2021-07-30 2021-07-30 [facility] 1.2.558.335 [id number] Univers 00:00:00 00:00:00 Yamini MONTES 350.1.13.10 ity of [place].2.[place].2.[place] [facility] [phone] Ne santos ADORNO 059 [facility] 2021-07-26 2021-07-27 [facility] NOEMI [id number] Univers 11:00:00 16:11:00 MARCELO ity [facility] 2021-07-26 2021-07-27 Emergency Dmitry Jha [facility] 1.2.840. 114 [id number] Univers 11:00:00 16:11:00 Marcelo Kamara 350.1.13.10 ity of [place] 4.2.7.2.686 [place] [phone] [facility] 081 [place] 2021-07-27 2021-07-27 Telephone [facility] 1.2.840.114 [id number] Univers 00:00:00 00:00:00 [facility] 350.1.13.10 it y of [place] [facility] 4.2.7.2.686 Giorgio as ARCHIE?BLEA [phone] Ne [address] MEDICAL OFFICE BUILDING 2021-07-26 2021-07-26 Orders Doctor BERT 1.2.840.114 [id number] Univers 00:00:00 00:00:00 Only Unassigned, RUTH ANN 350.1.13.10 ity of [place] [facility] 4.2.7.2.686 Giorgio as [phone] [facility] 009 [place] 2021-07-26 2021-07-26 Telephone [facility] 1.2.840.114 [id number] Univers 00:00:00 00:00:00 [facility] 350.1.13.10 it y of [place] 4.2.7.2.686 Giorgio as ARCHIE?BLEA [phone] [address] OFFICE [facility] 2021-07-25 2021-07-25 Patient Doctor BERT 1.2.840.114 [id number] Univers 00:00:00 00:00:00 Secure Msg Unassigned, RUTH ANN 350.1.13.10 ity of [place] [facility] 4.2.7.2.686 Giorgio as [phone] [facility] 019 [place] 2021-07-16 2021-07-16 Outpatient R [facility]MAN [facility] [id number] Univers 13:15:00 13:15:00 [facility] 2021-07-16 2021-07-16 Transition VALERIO Zayas 1.2.840.114 [id number] Univers 00:00:00 00:00:00 of Care Herlinda REA 350.1.13.10 i ty of [place].2.[place] [phone] [facility] [address] 2021-07-16 2021-07-16 Patient Doctor BERT 1.2.840.114 [id number] Univers 00:00:00 00:00:00 Secure Msg Unassigned, RUTH ANN 350.1.13.10 ity of [place] [facility] 4.2.7.2.686 Giorgio as [phone] [facility] 082 [place] 2021-07-11 2021-07-14 [facility] [id number] Univers 17:42:00 14:15:00 ANGELITO ads [facility] 2021-07-11 2021-07-14 [facility] Manju Benton [facility] 1.2.840.1 14 [id number] Univers 17:42:00 14:15:00 Encounter Mary Kamarajessica MONTES 350.1.13.10 ity of [facility] 4.2.7.2.686 [facility] [phone] [facility] 081 [place] 2021-07-14 2021-07-14 Patient Doctor BERT 1.2.840.114 [id number] Univers 00:00:00 00:00:00 Secure Msg Unassigned, RUTH ANN 350.1.13.10 ity of [place] [facility] 4.2.7.2.686 Giorgio as [phone] [facility] 019 [place] 2021-07-14 2021-07-14 Patient Doctor BERT 1.2.840.114 [id number] Univers 00:00:00 00:00:00 Secure Msg Unassigned, RUTH ANN 350.1.13.10 ity of [place] [facility] 4.2.7.2.686 Giorgio as [phone] [address] 2021-06-29 2021-06-29 Outpatient Maurice ROSARIO [facility] [id number] Univers 14:15:00 14:38:31 PINEDA ity [facility] 2021-06-12 2021-06-12 Outpatient Maurice GODINEZ [facility] [id number] Univers 08:20:00 08:20:00 ERICK ity [facility] 2021-06-12 2021-06-12 Outpatient Maurice GODINEZ [facility] [id number] Univers 08:20:00 08:20:00 ERICK ity [facility] 2021-06-12 2021-06-12 Outpatient Maurice GODINEZ [facility] [id number] Univers 08:20:00 08:20:00 ERICK ity [facility] 2021-06-12 2021-06-12 Outpatient Maurice GODINEZ [facility] [id number] Univers 08:20:00 08:20:00 ERICK ity [facility] 2021-05-28 2021-05-28 Franco Rosario, [facility] 1.2.840.114 [id number] Univers 00:00:00 00:00:00 Pineda HEALTH 350.1.13.10 it y of [place] 4.2.7.2.686 Giorgio as ARCHIE?BLEA [phone] [address] MEDICAL OFFICE [facility] 2021-05-28 2021-05-28 Orders Doctor BERT 1.2.840.114 [id number] Univers 00:00:00 00:00:00 Only Unassigned, RUTH ANN 350.1.13.10 ity of [place] [facility] 4.2.7.2.686 Giorgio as [phone] [address] 2021-05-25 2021-05-25 Telephone [facility] 1.2.840.114 [id number] Univers 00:00:00 00:00:00 Pineda HEALTH 350.1.13.10 it y of [place] 4.2.7.2.686 Giorgio as ARCHIE?BLEA [phone] [address] OFFICE [facility] 2021-05-17 2021-05-17 Patient Doctor [facility] 1.2.840.114 [id number] Univers 00:00:00 00:00:00 Secure Msg Unassigned, MULTISPEC 350.1.13.10 ity of [place].2.7.2.[place] C[place] [phone] [address] [facility] 2021-05-11 2021-05-11 Telephone [facility] 1.2.840.114 [id number] Univers 00:00:00 00:00:00 Pineda HEALTH 350.1.13.10 it y of [place] 4.2.7.2.686 Giorgio as ARCHIE?BLEA [phone] [address] MEDICAL OFFICE [facility] 2021-05-11 2021-05-11 Patient [facility] 1.2.840.114 [id number] Univers 00:00:00 00:00:00 Secure Msg Pineda HEALTH 350.1.13.10 ity of [place] 4.2.7.2.686 Giorgio as ARCHIE?BLEA [phone] Ne santos [address] MEDICAL OFFICE [facility] 2021-05-09 2021-05-09 Telephone [facility] 1.2.840.114 [id number] Univers 00:00:00 00:00:00 Pineda HEALTH 350.1.13.10 it y of [place] [facility] 4.2.7.2.686 Giorgio as ARCHIE?BLEA [phone] [address] MEDICAL OFFICE [facility] 2021-05-08 2021-05-08 Orders Doctor BERT 1.2.840.114 [id number] Univers 00:00:00 00:00:00 Only Unassigned, RUTH ANN 350.1.13.10 ity of [place] [facility] 4.2.7.2.686 Giorgio as [phone] [facility] 009 [place] 2021-05-07 2021-05-07 Outpatient R HERBERT [facility] [id number] Univers 00:00:00 23:59:00 ERICK ity of [facility] 2021-05-07 2021-05-07 [facility] MAXIMINO Godinez 1.2.840.114 [id number] Univers 00:00:00 23:59:00 Encounter Erick RUTH ANN 350.1.13.10 ity of [facility] 4.2.7.2.686 Giorgio as [phone] [facility] 844 [place] 2021-05-04 2021-05-04 Transition VALERIO Cottrell 1.2.840.114 [id number] Univers 00:00:00 00:00:00 of Care Maura REA 350.1.13.10 i ty of [place]2.[place] [phone] [facility] 403 [place] 2021-05-04 2021-05-04 Telephone [facility] 1.2.840.114 [id number] Univers 00:00:00 00:00:00 [facility] 350.1.13.10 it y of [place] 4.2.7.2.686 Giorgio as ARCHIE?BLEA [phone] [address] OFFICE [facility] 2021-04-26 2021-05-03 Inpatient X [facility] [id number] Univers 22:05:00 18:04:00 MORGAN ity of [facility] 2021-04-26 2021-05-03 Hospital Dmitry Jha 1.2.840.1 [id number] Univers 22:05:00 18:04:00 Encounter Haroon Rich RUTH ANN 350.1.13.10 ity of [place] [facility] 4.2.7.2.686 [place] [phone] [facility] [address] [place] 2021-04-24 2021-04-24 Patient Doctor BERT 1.2.840.[id number] [place] [address] 00:00:00 00:00:00 Secure Msg Unassigned, RUTH ANN 350.1.13.10 ity of [facility] 4.2.7.2.686 [facility] [phone] [facility] 019 [place] 2021-04-23 2021-04-23 Medical Review Specialist 1, [facility] Sleep Lab Bed [facility] 1. 2.840.114 [id number] Univers 19:30:00 22:00:00 Visit Erin Mar 350.1.13. 10 ity [facility] 4.2.7.[address] [place] [address] [phone] [facility] [address] [place] 2021-04-23 2021-04-23 Outpatient R ARETHA MARL [facility] [id number] Univers 19:30:00 19:30:00 ISABELA STRAHIL ity of [facility] 2021-04-23 2021-04-23 Outpatient R ARETHA MARL [facility] [id number] Univers 19:30:00 19:30:00 ISABELA STRAHIL ity of [facility] 2021-04-20 2021-04-20 Outpatient R [facility] [id number] Univers 13:15:00 13:15:00 ity of [facility] 2021-04-19 2021-04-19 Laboratory Only, Adc Test [facility] 1.2.840. 114 [id number] Univers 10:45:00 11:00:00 Only Erin Mar 350.1.13. 10 ity [facility] 4.2.7.2.[place] [id number] [place] [address] [place] 2021-04-19 2021-04-19 Outpatient R ERIN MAR [facility] [id number] Univers 10:45:00 10:45:00 ERIN MAR [facility] 2021-04-19 2021-04-19 Outpatient R KUNAL MARAKJuan Diego [facility] [id number] Univers 10:45:00 10:45:00 KUNAL MARAKJuan Diego [facility] 2021-04-18 2021-04-18 Outpatient R ETHAN [facility] [id number] Univers 12:30:00 12:30:00 LALITHA [facility] 2021-04-16 2021-04-16 [facility] 1.2.840.114 [id number] Univers 00:00:00 00:00:00 Pineda [facility] 350.1.13.10 it y of [place] [facility] 4.2.7.2.686 Giorgio as PROFESSIO [phone] Ne dical NAL [address] OFFICE BUILDING ONE 2021-04-13 2021-04-13 Outpatient R [facility] [id number] Univers 19:30:00 19:30:00 ISABELA [facility] 2021-04-11 2021-04-11 Outpatient R [facility] [id number] Univers 13:00:00 13:00:00 [facility] 2021-04-06 2021-04-06 Outpatient R [facility] [id number] Univers 13:15:00 13:15:00 PINEDA [facility] 2021-04-04 2021-04-04 [facility] 1.2.527.438 [id number] Univers 00:00:00 00:00:00 Casandra MONTES 350.1.13.10 i ty of [facility] 4.2.7.2.[place] PROFESS[place] [phone] Ne dical NAL [address] BUILDING 2021-04-03 2021-04-03 [facility] 1.2.840.114 [id number] Univers 00:00:00 00:00:00 [facility] HEALTH 350.1.13.10 it y of [place] 4.2.7.2.686 Giorgio as ARCHIE?BLEA [phone] [address] OFFICE [facility] 2021-04-02 2021-04-02 [facility] 1.2.840.114 [id number] Univers 00:00:00 00:00:00 [facility] 350.1.13.10 it y of [place] 4.2.7.2.686 Giorgio as PROFESSIO [phone] [address] OFFICE [facility] ONE 2021-03-26 2021-03-26 Outpatient R [facility] [id number] Univers 10:15:00 10:15:00 PINEDA ity of [facility] 2021-03-19 2021-03-19 [facility] 1.2.840.114 [id number] Univers 00:00:00 00:00:00 [facility] 350.1.13.10 it y of [place] 4.2.7.2.686 Giorgio as ARCHIE?BLEA [phone] [address] OFFICE [facility] 2021-03-09 2021-03-09 Transition VALERIO Reyna 1.2.840.114 [id number] Univers 00:00:00 00:00:00 of Care Nathaliesushil REA 350.1.13.10 it y of [place].7.2.[place] [phone] [address] 2021-03-07 2021-03-07 Telephone [facility] 1.2.840.114 [id number] Univers 00:00:00 00:00:00 Strahil T [place] 350.1.13.10 ity of [place] 4.2.7.2.686 [place] PROFESSIO [phone] [facility] 085 [facility] 2021-03-06 2021-03-06 Transition VALERIO Cottrell 1.2.840.114 [id number] Univers 00:00:00 00:00:00 of Care Maura REYESY 350.1.13.10 i ty of [place]2.7.2.[place] [phone] [facility] [address] 2021-02-26 2021-03-04 Inpatient X [facility] NOEMI [id number] Univers 20:59:00 16:23:00 RICH ity of [facility] 2021-02-26 2021-03-04 Hospital Natan Hailee MAXIMINO 1.2.840. 114 [id number] Univers 20:59:00 16:23:00 Encounter Manny Emerald Bonita VALLECILLO 350.1.13 .10 ity of [facility] 4.2.7.2.686 [facility] [phone] [place] 943653 [place] 2021-02-26 2021-02-26 Transition Valerio Reyna 1.2.840.114 [id number] Univers 00:00:00 00:00:00 of Care Nathalie Ezequiel Rea 350.1.13.10 it y of [place] 4.2.7.2.[place] [id number] [facility] [address] 2021-02-19 2021-02-23 [facility] WeaverNatali [facility] 1.2.840.1 14 [id number] Univers 15:27:00 18:35:00 Encounter Cyndie [place] 350.1.13.10 ity of Aditya Lopez 4.2.7.2.686 [facility] [phone] [place] [address] [place] 2021-02-16 2021-02-16 Outpatient R CASANDRA BARBA [facility] [id number] Univers 09:30:00 09:30:00 CASANDRA BARBA i ty of [facility] 2021-02-10 2021-02-10 [facility] 1.2.840.114 [id number] Univers 00:00:00 00:00:00 [facility] 350.1.13.10 it y of [place] 4.2.7.2.686 Giorgio as Archie?Blea [phone] [facility] 044 [place] Medical Office Building 2021-02-08 2021-02-08 Orders Doctor BERT 1.2.840.114 [id number] Univers 00:00:00 00:00:00 Only Unassigned, RUTH ANN 350.1.13.10 ity of [place] [facility] 4.2.7.2.686 Giorgio as [phone] [facility] 009 [place] 2021-02-07 2021-02-07 Outpatient R KUNAL MARAKJuan Diego [facility] [id number] Univers 14:40:00 14:40:00 ATACONOR [facility] ity of [facility] 2021-02-07 2021-02-07 Office [facility] 1.2.823.183 [id number] Univers 14:14:15 14:34:15 Visit [facility] Muna Mont[place] 350.1.13.10 ity of [place].2.7.2.686 [place] [phone] [facility] 085 [facility] 2021-02-06 2021-02-06 Outpatient R EFFIEAULTMAN [facility] [id number] Univers 14:30:00 14:30:00 FERNANDA ity of [facility] 2021-02-05 2021-02-05 Telephone [facility] 1.2.840.114 [id number] Univers 00:00:00 00:00:00 [facility] 350.1.13.10 it y of [place] 4.2.7.2.686 Giorgio as Archie?Blea [phone] [address] [place] [address] Medical Office [facility] 2021-01-29 2021-01-29 Outpatient R HER[facility]ERTAULTMAN [facility] [id number] Univers 00:00:00 23:59:00 ERICK ity of [facility] 2021-01-29 2021-01-29 [facility] MAXIMINO Godinez 1.2.840.114 [id number] Univers 00:00:00 23:59:00 Encounter Erick RUTH ANN 350.1.13.10 ity of [facility] 4.2.7.2.686 Giorgio as [phone] [place] 822404 [place] 2021-01-29 2021-01-29 Refill [facility] 1.2.840.114 [id number] Univers 00:00:00 00:00:00 Pineda [facility] 350.1.13.10 it y of [place] 4.2.7.2.686 Giorgio as Professio [phone] Ne santos adorno [address] [place] [address] Office Building One 2021-01-23 2021-01-23 Office [facility] 1.2.840.114 [id number] Univers 14:19:19 14:49:19 Visit Pineda Munguia 350.1.13.10 it y of [place] 4.2.7.2.686 Giorgio as Archie?Blea [phone] Ne santos schuster [address] [place] [address] Office Building 2021-01-23 2021-01-23 Outpatient R ABRAHAM [facility] [id number] Univers 14:30:00 14:30:00 PINEDA [facility] 2021-01-22 2021-01-22 Transition Valerio Cottrell 1.2.840.114 [id number] Univers 00:00:00 00:00:00 of Care Maura Rea 350.1.13.10 i ty of [place].2.[place] [phone] [facility] [address] 2021-01-16 2021-01-20 Hospital Dmitry Jha [facility] 1.2.840.1 14 [id number] Univers 23:39:00 16:56:00 Encounter Marcelo Kamara 350.1.13.10 ity of [place] 4.2.7.2.686 [place] [phone] [facility] 081 [address] 2021-01-16 2021-01-16 Outpatient R ABRAHAM [facility] [id number] Univers 13:00:00 13:00:00 PINEDA [facility] 2021-01-11 2021-01-11 Hospital Radiology [facility] 1.2.840.114 [id number] Univers 13:30:17 23:59:00 Encounter Daniel 350.1.13.10 ity of [place] 4.2.7.2.686 [place] [id number] [facility] [address] 2021-01-11 2021-01-11 Hospital Radiology [facility] 1.2.840.114 [id number] Univers 13:29:34 13:29:34 Encounter Daniel 350.1.13.10 ity of [place] 4.2.7.2.686 [place] [phone] [facility] [address] 2021-01-11 2021-01-11 Outpatient R RADIOLOGY [facility] [id number] Univers 00:00:00 00:00:00 ity of [facility] 2021-01-11 2021-01-11 Orders Doctor BERT 1.2.840.114 [id number] Univers 00:00:00 00:00:00 Only Unassigned, RUTH ANN 350.1.13.10 ity of [place] [facility] 4.2.7.2.686 Giorgio as [phone] [facility] 00[address] 2021-01-10 2021-01-10 Refdai Rosario [facility] 1.2.840.114 [id number] Univers 00:00:00 00:00:00 [facility] 350.1.13.10 it y of Dipeshguerrero Daniel 4.2.7.2.686 Giorgio as Archie?Blea [phone] [address] [place] [address] Medical Office Building 2021-01-01 2021-01-01 Transition Valerio Cottrell 1.2.840.114 [id number] Univers 00:00:00 00:00:00 of Care Maura Rea 350.1.13.10 i ty of [place] 4.2.7.2.686 [place] [phone] [facility] [address] 2020-12-27 2020-12-30 [facility] Natali Weaver [facility] 1.2.840.1 14 [id number] Univers 09:44:00 17:22:00 Encounter Melisa [facility] 350.1.13. 10 ity of Rufus Evans 4.2.7.2.686 [facility] [phone] [facility] [address] (CLC) 2020-12-26 2020-12-26 Hospital Radiology [facility] 1.2.840.114 [id number] Univers 13:55:19 23:59:00 Encounter [place] 350.1.13.10 ity of [place] 4.2.7.2.686 [facility] [id number] [facility] [address] 2020-12-26 2020-12-26 Outpatient R RADIOLOGY [facility] [id number] Univers 00:00:00 00:00:00 ity of [facility] 2020-12-21 2020-12-21 Orders Doctor BERT [id number] Univers 00:00:00 00:00:00 Only Unassigned, RUTH ANN [id number] ity of [place] [facility] [id number] [facility] [phone] [facility] [address] 2020-12-20 2020-12-20 Outpatient CASANDRA PALOMINO [facility] [id number] Univers 08:30:00 08:30:00 CASANDRA BARBA i ty [facility] 2020-12-06 2020-12-06 Outpatient R ABRAHAM [facility] [id number] Univers 13:00:00 13:00:00 PINEDA ity [facility] 2020-11-27 2020-11-27 Outpatient Maurice ROSARIO [facility] [id number] Univers 15:30:00 15:30:00 PINEDA ity [facility] 2020-11-22 2020-11-22 Outpatient R [facility] [id number] Univers 09:00:00 09:00:00 ity [facility] 2020-11-02 2020-11-02 Outpatient Maurice WANG [facility] [id number] Univers 10:15:00 10:15:00 MOE ity [facility] 2020-10-09 2020-10-09 Outpatient Maurice WANG [facility] [id number] Univers 13:45:00 13:45:00 MOE itnicky [facility] 2020-10-05 2020-10-05 Outpatient Maurice WANG [facility] [id number] Univers 08:45:00 08:45:00 [facility] 2020-10-03 Outpatient Maurice WANG [facility] [id number] Univers 14:45:00 14:45:00 [facility] 2020-09-25 2020-09-25 Outpatient Maurice ROSARIO [facility] [id number] Univers 15:00:00 15:00:00 PINEDA [facility] 2020-09-22 2020-09-22 Outpatient Maurice ROSARIO [facility] [id number] Univers 15:15:00 15:15:00 PINEDA [facility] 2020-09-18 2020-09-18 Outpatient Maurice WANG [facility] [id number] Univers 14:30:00 14:30:[facility] 2020-09-15 Outpatient Maurice ROSARIO [facility] [id number] Univers 14:15:00 14:15:00 PINEDA [facility] 2020-09-08 2020-09-08 Outpatient Maurice HERNANDEZ [facility] [id number] Univers 08:00:00 08:00:00 [facility] 2020-09-06 2020-09-06 Outpatient Maurice HERNANDEZ [facility] [id number] Univers 13:00:00 13:00:00 [facility] 2020-09-01 2020-09-01 Outpatient R [facility] [id number] Univers 11:45:00 11:45:00 [facility] 2020-08-25 2020-08-25 Outpatient Maurice HERNANDEZ [facility] [id number] Univers 09:15:00 09:15:00 [facility] 2020-08-22 2020-08-22 Outpatient Maurice KEMP [facility] [id number] Univers 00:00:00 00:00:00 [facility] 2020-08-18 2020-08-18 Outpatient Maurice KEMP [facility] [id number] Univers 13:00:00 13:00:00 [facility] 2020-08-17 2020-08-17 Outpatient Maurice ROSARIO [facility] [id number] Univers 09:30:00 09:30:00 PINEDA [facility] 2020-08-07 2020-08-07 Outpatient R ABRAHAM, [facility] [id number] Univers 15:30:00 15:30:00 PINEDA [facility] 2020-07-24 2020-07-24 Outpatient R MARY, [facility] [id number] Univers 13:45:00 13:45:00 DOUGLAS [facility] 2020-07-03 2020-07-03 Outpatient R FELIPE, [facility] [id number] Univers 14:00:00 14:00:00 MOE [facility] 2020-06-23 2020-06-23 Outpatient R JOHN, [facility] [id number] Univers 18:20:00 18:20:00 BRENDA ity o f [facility] 2016-05-24 2016-05-25 [facility] [id number] Memoria 21:44:00 21:20:00 n maurice Barnett 69 [facility] 2016-05-24 2016-05-25 Outpatient Liam [place] [id number] 15:44:00 15:20:00 Sherry 69 2016-01-19 2016-01-20 [facility] [id number] Memoria 23:17:00 20:05:00 r Anibal 00 [facility] 2016-01-19 2016-01-20 Outpatient Johnny [facility] [id number] 18:17:00 15:05:00 Suur 00 2015-03-30 2015-03-30 [facility] [id number] Memoria 16:10:00 19:24:00 Emergency r Anibal 67 [facility] 2015-03-30 2015-03-30 Outpatient Kiran [facility] [id number] 10:10:00 13:24:00 Duane Mullen 2015-02-12 2015-02-15 [facility] [id number] Memoria 23:56:00 21:31:00 maurice Barnett 84 [facility] 2015-02-12 2015-02-15 Outpatient Denzel [facility] [id number] 18:56:00 16:31:00 Uday schmidt i 2014-12-12 2014-12-14 Inpatient [facility]Fl[facility] [id number] Memoria 08:41:00 17:57:00 [facility] 22 [facility] 2014-12-12 2014-12-14 Outpatient Johnny [facility] [id number] 03:41:00 12:57:00 Suur 22 2014-10-26 2014-10-27 OBS [facility]Flavo [facility] [id number] Memoria 20:29:00 20:57:[facility] 2014-10-26 2014-10-27 Outpatient Cristina, 2.16.840. [id number] . [id number] 15:29:00 15:57:00 Rufus [id number] [id number] 2014-07-20 OBS nullFlavo [facility] [id number] Memoria 22:35:00 17:30:00 Observatio [facility] [address] [facility] 2014-07-19 2014-07-20 Outpatient Rodolfo, 2.16.840. 2.16.840.1. [id number] 17:35:00 12:30:00 Terrell Bhakta [id number] [id number] 2012-06-22 Emergency nullFlavo [facility] [id number] Memoria 12:36:00 17:25:00 r Medical 04 [facility] 2012-02-29 2012-03-01 Emergency [facility]Flavo [facility] [id number] Memoria 19:52:00 02:35:00 r Medical 03 [facility] 2011-07-09 2011-07-12 Inpatient [facility]Flavo [facility] [id number] Memoria 18:06:00 13:31:00 r Medical 02 [facility] 2010-10-13 2010-10-13 Emergency [facility]Flavo [facility] [id number] Memoria 10:57:00 13:12:00 r Medical 01 [facility] 2010-03-16 2010-03-16 Emergency nullFlavo [facility] [id number] Memoria 09:47:00 17:11:[address] Results Test Description Test Time Test Comments Results Result Comments Source POCT MOLECULAR FLU 2023-03-13 22:41:12 Test Item Value Reference Range Interpretation Comme nts POCT Molecular FluA (test code = 09618-0) Negative Negative POCT Molecular FluB (test code = 44397-8) Negative Negative Lab Interpretation (test code = 93907-1) Normal [facility] MOLECULAR [id number] 22:41:12 Test Item Value Reference Range Interpretation Comments POCT Molecular FluA (test code = Negative Negative 09921-1) POCT Molecular FluB (test code = Negative Negative 29372-4) Lab Interpretation (test code = Normal 38561-9) [facility] SARS-COV-2 ANTIGEN (BINAX NOW)2023-03-13 22:38:00 Test Item Value Reference Range Interpretation Comments POCT SARS-COV-2 ANTIGEN (test Not Detected Not Detected code = 90611-9) On board controls acceptable Yes with C Line (test code = 3574) [facility] SARS-COV-2 ANTIGEN (BINAX NOW)2023-03-13 22:38:00 Test Item Value Reference Range Interpretation Comments POCT SARS-COV-2 ANTIGEN (test Not Detected Not Detected code = 46501-2) On board controls acceptable Yes with C Line (test code = 3574) [facility] [id number] 11:52:00 Test Item Value Reference Range Interpretation Comments POCT NICOTINE URINE/PLASMA (test positive Positive - Negative code = 4026) Lab Interpretation (test code = Normal 82372-5) [facility] [id number] 11:52:00 Test Item Value Reference Range Interpretation Comments POCT NICOTINE URINE/PLASMA (test positive Positive - Negative code = 4026) Lab Interpretation (test code = Normal 89211-3) [facility] GLUCOSE (AUTOMATED)2023-03-04 11:36:28 Test Item Value Reference Range Interpretation Comments POCT GLU (test code = 1644608660) 132 mg/dL 70-110 H Lab Interpretation (test code = Abnormal 20918-8) [facility] GLUCOSE (AUTOMATED)2023-03-04 11:36:28 Test Item Value Reference Range Interpretation Comments POCT GLU (test code = 9658777343) 132 mg/dL 70-110 H Lab Interpretation (test code = Abnormal 55865-2) [facility] GLUCOSE (AUTOMATED)2022-11-30 01:18:41 Test Item Value Reference Range Interpretation Comments POCT GLU (test code = 1138288887) 159 mg/dL 70-110 H Lab Interpretation (test code = Abnormal 92873-9) [facility] GLUCOSE (AUTOMATED)2022-11-29 21:31:09 Test Item Value Reference Range Interpretation Comments POCT GLU (test code = 3789729594) 279 mg/dL 70-110 H Lab Interpretation (test code = Abnormal 03478-1) [facility] GLUCOSE (AUTOMATED)2022-11-29 16:38:35 Test Item Value Reference Range Interpretation Comments POCT GLU (test code = 5555519770) 237 mg/dL 70-110 H Lab Interpretation (test code = Abnormal 95686-1) [facility] GLUCOSE (AUTOMATED)2022-11-29 12:25:36 Test Item Value Reference Range Interpretation Comments POCT GLU (test code = 0880026101) 118 mg/dL 70-110 H Lab Interpretation (test code = Abnormal 66805-3) [facility] WITH [id number] 11:16:01 Test Item Value Reference Range Interpretation Comments WBC (test code = 24.92 See_Comment H [Automated 6690-2) message] The system which generated this result transmit clarita reference range : 4.20 - 10.70 10*3/?L. The reference range was not used to interpret this result as normal/abnormal . RBC (test code = 4.40 See_Comment [Automated 789-8) message] The system which generated this result transmit clarita reference range : 4.26 - 5.52 10*6/?L. The reference range was not used to interpret this result as normal/abnormal . HGB (test code = 13.7 g/dL 12.2-16.4 718-7) HCT (test code = 41.3 % 38.4-49.3 4544-3) MCV (test code = 93.9 fL 81.7-95.6 787-2) MCH (test code = 31.1 pg 26.1-32.7 785-6) MCHC (test code = 33.2 g/dL 31.2-35.0 786-4) RDW-SD (test code = 45.8 fL 38.5-51.6 56357-7) RDW-CV (test code = 13.3 % 12.1-15.4 788-0) PLT (test code = 186 See_Comment [Automated 777-3) message] The system which generated this result transmit clarita reference range : 150 - 328 10*3/ ?L. The reference range was not u sed to interpret th is result as normal/abnormal . MPV (test code = 11.7 fL 9.8-13.0 09943-0) NRBC/100 WBC (test 0.0 See_Comment [Automat ed code = 3739608999) message] The system which generated this result transmit clarita reference range : 0.0 - 10.0 /100 WBCs. The reference range was not used to interpret this result as normal/abnormal . NRBC x10^3 (test code See_Comment [Auto mated = 5690052173) message] The system which generated this result transmit clarita reference range : 10*3/?L. The reference range was not used to interpret this result as normal/abnormal . SEG % (test code = 56 % 33-76 43008-2) LYMPH % (test code = 24 % 14-54 64104-1) MONO % (test code = 20 % 0-4 H 73547-6) ANC (test code = 13.96 10*3/uL 1.99-6.95 H 753-4) Lab Interpretation Abnormal (test code = 11955-2) [facility]50759[facility]2022-11-29 10:22:31 Test Item Value Reference Range Interpretation Comments NA (test code = 137 mmol/L 135-145 4340939388) K (test code = 4.1 mmol/L 3.5-5.0 3049999332) CL (test code = 97 mmol/L 98-108 L 3248086815) CO2 TOTAL (test code = 35 mmol/L 23-31 H 8334948345) AGAP (test code = 5 2-16 8645045128) BUN (test code = 23 mg/dL 7-23 3748996250) GLUCOSE (test code = 139 mg/dL 70-110 H 3818860384) CREATININE (test code = 0.82 mg/dL 0.60-1.25 1859276748) TOTAL BILI (test code = 0.4 mg/dL 0.1-1.8 4435546214) CALCIUM (test code = 8.9 mg/dL 8.6-10.6 5518986037) T PROTEIN (test code = 7.1 g/dL 6.3-8.2 6820919350) ALBUMIN (test code = 3.9 g/dL 3.5-5.0 8669505950) ALK PHOS (test code = 110 U/L 34-122 2860357916) ALTv (test code = 44 U/L 5-50 2-6) AST(SGOT) (test code = 29 U/L 13-40 0643255317) eGFR (test code = 98.7 mL/min/1.73m2 0748824103) ANTHONY (test code = ANTHONY) Association of Glomerular Filtration Rate (GFR) and Staging of Kidney Disease* + --+ --+ ------+| GFR (mL/min/1.73 m2) ?| With Kidney Damage ?| ?Without Kidney Damage+ --------+ --------+ +| ?>90 ?| ?Stage one ?| ? Normal ?+ ---+ ---+ -------+| ?60-89 ?| ?Stage two ?| ? Decreased GFR ? + --+ --+ ------+| ?30-59 ?| ?Stage three ?| ? Stage three ? + --+ --+ ------+| ?15-29 ?| ?Stage four ? | ? Stage four ?+ ---+ ---+ -------+| ?<15 (or dialysis) ? ?| ?Stage five ? | ? Stage five ?+ ---+ ---+ -------+ *Each stage assumes the associated GFR level has been in effect for at least three months. ?Stages 1 to 5, with or without kidney disease, indicate chronic kidney disease. Notes: Determination of stages one and two (with eGFR >59mL/min/1.73 m2) requires estimation of kidney damage for at least three months as defined by structural or functional abnormalities of the kidney, manifested by either:Pathological abnormalities or Markers of kidney damage (including abnormalities in the composition of the blood or urine or abnormalities in imaging tests). Lab Interpretation Abnormal (test code = 06750-9) [facility] GLUCOSE (AUTOMATED)2022-11-29 09:04:40 Test Item Value Reference Range Interpretation Comments POCT GLU (test code = 0486800573) 139 mg/dL 70-110 H Lab Interpretation (test code = Abnormal 54864-4) [facility] GLUCOSE (AUTOMATED)2022-11-29 04:18:44 Test Item Value Reference Range Interpretation Comments POCT GLU (test code = 9045438530) 295 mg/dL 70-110 H Lab Interpretation (test code = Abnormal 52664-8) [facility] GLUCOSE (AUTOMATED)2022-11-29 00:50:23 Test Item Value Reference Range Interpretation Comments POCT GLU (test code = 2628952985) 293 mg/dL 70-110 H Lab Interpretation (test code = Abnormal 88841-4) [facility] GLUCOSE (AUTOMATED)2022-11-28 22:27:42 Test Item Value Reference Range Interpretation Comments POCT GLU (test code = 1105034771) 321 mg/dL 70-110 H Lab Interpretation (test code = Abnormal 35113-9) [facility] GLUCOSE (AUTOMATED)2022-11-28 21:48:15 Test Item Value Reference Range Interpretation Comments POCT GLU (test code = 6021871944) 342 mg/dL 70-110 H Lab Interpretation (test code = Abnormal 07736-7) [facility] GLUCOSE (AUTOMATED)2022-11-28 16:40:00 Test Item Value Reference Range Interpretation Comments POCT GLU (test code = 5122571357) 307 mg/dL 70-110 H Lab Interpretation (test code = Abnormal 00894-8) [facility] GLUCOSE (AUTOMATED)2022-11-28 12:48:26 Test Item Value Reference Range Interpretation Comments POCT GLU (test code = 4310618514) 335 mg/dL 70-110 H Lab Interpretation (test code = Abnormal 02854-8) [facility] GLUCOSE (AUTOMATED)2022-11-28 11:15:11 Test Item Value Reference Range Interpretation Comments POCT GLU (test code = 4422570427) 242 mg/dL 70-110 H Lab Interpretation (test code = Abnormal 95238-8) [facility] GLUCOSE (AUTOMATED)2022-11-28 06:02:49 Test Item Value Reference Range Interpretation Comments POCT GLU (test code = 0416375837) 371 mg/dL 70-110 H Lab Interpretation (test code = Abnormal 41278-3) [facility] GLUCOSE (AUTOMATED)2022-11-28 04:25:02 Test Item Value Reference Range Interpretation Comments POCT GLU (test code = 6199469871) 320 mg/dL 70-110 H Lab Interpretation (test code = Abnormal 75869-4) [facility] GLUCOSE (AUTOMATED)2022-11-24 21:41:26 Test Item Value Reference Range Interpretation Comments POCT GLU (test code = 7485041129) 193 mg/dL 70-110 H Lab Interpretation (test code = Abnormal 20168-0) [facility] WITH [id number] 22:09:40 Test Item Value Reference Range Interpretation Comments WBC (test code = 14.42 See_Comment H [Automated 6690-2) message] The sy stem which generated this result transmitted reference range : 4.20 - 10.70 10*3/?L. The reference range was not used to interpret this result as normal/abnormal . RBC (test code = 5.09 See_Comment [Automated 789-8) message] The sy stem which generated this result transmitted reference range : 4.26 - 5.52 10*6/?L. The reference range was not used to interpret this result as normal/abnormal . HGB (test code = 15.6 g/dL 12.2-16.4 718-7) HCT (test code = 45.8 % 38.4-49.3 4544-3) MCV (test code = 90.0 fL 81.7-95.6 787-2) MCH (test code = 30.6 pg 26.1-32.7 785-6) MCHC (test code = 34.1 g/dL 31.2-35.0 786-4) RDW-SD (test code = 42.9 fL 38.5-51.6 12656-5) RDW-CV (test code = 13.0 % 12.1-15.4 788-0) PLT (test code = 195 See_Comment [Automated 777-3) message] The sy stem which generated this result transmitted reference range : 150 - 328 10*3/ ?L. The reference r sumeet was not used to interpret this result as normal/abnormal . MPV (test code = 11.2 fL 9.8-13.0 17615-4) NRBC/100 WBC (test 0.0 See_Comment [Automat ed code = 2529011071) message] The system which generated this result transmitted reference range : 0.0 - 10.0 /100 WBCs. The refer ence range was not u sed to interpret th is result as normal/abnormal . NRBC x10^3 (test code See_Comment [Auto mated = 0264078379) message] The s ystem which generated this result transmitted reference range : 10*3/?L. The reference range was not used to interpret this result as normal/abnormal . GRAN MAT (NEUT) % 68.1 % (test code = 770-8) IMM GRAN % (test code 1.90 % = 3701180240) LYMPH % (test code = 17.2 % 736-9) MONO % (test code = 11.2 % 5905-5) EOS % (test code = 1.2 % 713-8) BASO % (test code = 0.4 % 706-2) GRAN MAT x10^3(ANC) 9.81 10*3/uL 1.99-6.95 H (test code = 8295064011) IMM GRAN x10^3 (test 0.28 10*3/uL 0.00-0.06 H code = 1073095591) LYMPH x10^3 (test code 2.48 10*3/uL 1.09-3.23 = 731-0) MONO x10^3 (test code 1.62 10*3/uL 0.36-1.02 H = 742-7) EOS x10^3 (test code = 0.17 10*3/uL 0.06-0.53 711-2) BASO x10^3 (test code 0.06 10*3/uL 0.01-0.09 = 704-7) Lab Interpretation Abnormal (test code = 49933-5) [facility] [id number] 21:59:48 Test Item Value Reference Range Interpretation Comments NT-proBNP (test code = 16208-6) <=125 Lab Interpretation (test code = Normal 55242-9) [facility] [id number] 21:55:30 Test Item Value Reference Range Interpretation Comments TROPONIN I (test code = 0.005 ng/mL <=0.034 2312713410) ANTHONY (test code = ANTHONY) Reference (Normal) Range (defined by the 99th percentile reference limit): <= 0.034 ng/mL Note: Cardiac troponin begins to rise 3-4 hours after the onset of ischemia. Repeat in 4-6 hours if the sample was drawn within 3-4 hours of the onset of the symptom and found normal. Diagnosis of myocardial injury is made with acute changes in cTn concentrations with at least one serial sample above the 99th percentile upper reference limit (URL), taken together with the patient's clinical presentation. Biotin has been reported to cause a negative bias, interpret results relative to patient's use of biotin. Lab Interpretation Normal (test code = 44978-3) [facility] (NA, K, CL, CO2, GLUCOSE, BUN, CREATININE, CA)2022-11-21 21:44:11 Test Item Value Reference Range Interpretation Comments NA (test code = 135 mmol/L 135-145 2994737043) K (test code = 4.7 mmol/L 3.5-5.0 6534972906) CL (test code = 97 mmol/L 98-108 L 1459885987) CO2 TOTAL (test code = 30 mmol/L 23-31 2238923123) AGAP (test code = 8 2-16 6959479106) BUN (test code = 14 mg/dL 7-23 5044576350) GLUCOSE (test code = 264 mg/dL 70-110 H 5085351025) CREATININE (test code = 0.57 mg/dL 0.60-1.25 L 1062722248) CALCIUM (test code = 9.2 mg/dL 8.6-10.6 2170010618) eGFR (test code = 150.1 mL/min/1.73m2 5988041553) ANTHONY (test code = ANTHONY) Association of Glomerular Filtration Rate (GFR) and Staging of Kidney Disease* + --+ --+ ------+| GFR (mL/min/1.73 m2) ?| With Kidney Damage ?| ?Without Kidney Damage+ --------+ --------+ +| ?>90 ?| ?Stage one ?| ? Normal ?+ ---+ ---+ -------+| ?60-89 ?| ?Stage two ?| ? Decreased GFR ? + --+ --+ ------+| ?30-59 ?| ?Stage three ?| ? Stage three ? + --+ --+ ------+| ?15-29 ?| ?Stage four ? | ? Stage four ?+ ---+ ---+ -------+| ?<15 (or dialysis) ? ?| ?Stage five ? | ? Stage five ?+ ---+ ---+ -------+ *Each stage assumes the associated GFR level has been in effect for at least three months. ?Stages 1 to 5, with or without kidney disease, indicate chronic kidney disease. Notes: Determination of stages one and two (with eGFR >59mL/min/1.73 m2) requires estimation of kidney damage for at least three months as defined by structural or functional abnormalities of the kidney, manifested by either:Pathological abnormalities or Markers of kidney damage (including abnormalities in the composition of the blood or urine or abnormalities in imaging tests). Lab Interpretation Abnormal (test code = 41263-8) [facility] WITH [id number] 15:56:28 Test Item Value Reference Range Interpretation Comments WBC (test code = 12.60 See_Comment H [Automated 5688-2) message] The sy stem which generated this result transmitted reference range : 4.20 - 10.70 10*3/?L. The reference range was not used to interpret this result as normal/abnormal . RBC (test code = 4.56 See_Comment [Automated 764-7) message] The sy stem which generated this result transmitted reference range : 4.26 - 5.52 10*6/?L. The reference range was not used to interpret this result as normal/abnormal . HGB (test code = 14.3 g/dL 12.2-16.4 718-7) HCT (test code = 42.1 % 38.4-49.3 4544-3) MCV (test code = 92.3 fL 81.7-95.6 787-2) MCH (test code = 31.4 pg 26.1-32.7 785-6) MCHC (test code = 34.0 g/dL 31.2-35.0 786-4) RDW-SD (test code = 46.5 fL 38.5-51.6 38845-9) RDW-CV (test code = 13.7 % 12.1-15.4 788-0) PLT (test code = 176 See_Comment [Automated 777-3) message] The sy stem which generated this result transmitted reference range : 150 - 328 10*3/ ?L. The reference r sumeet was not used to interpret this result as normal/abnormal . MPV (test code = 12.5 fL 9.8-13.0 21689-7) NRBC/100 WBC (test 0.0 See_Comment [Automat ed code = 9579989318) message] The system which generated this result transmitted reference range : 0.0 - 10.0 /100 WBCs. The refer ence range was not u sed to interpret th is result as normal/abnormal . NRBC x10^3 (test code See_Comment [Auto mated = 1077311432) message] The s ystem which generated this result transmitted reference range : 10*3/?L. The reference range was not used to interpret this result as normal/abnormal . GRAN MAT (NEUT) % 49.7 % (test code = 770-8) IMM GRAN % (test code 0.90 % = 8756396947) LYMPH % (test code = 25.2 % 736-9) MONO % (test code = 19.2 % 5905-5) EOS % (test code = 4.5 % 713-8) BASO % (test code = 0.5 % 706-2) GRAN MAT x10^3(ANC) 6.27 10*3/uL 1.99-6.95 (test code = 6894485825) IMM GRAN x10^3 (test 0.11 10*3/uL 0.00-0.06 H code = 9677394711) LYMPH x10^3 (test code 3.17 10*3/uL 1.09-3.23 = 731-0) MONO x10^3 (test code 2.42 10*3/uL 0.36-1.02 H = 742-7) EOS x10^3 (test code = 0.57 10*3/uL 0.06-0.53 H 711-2) BASO x10^3 (test code 0.06 10*3/uL 0.01-0.09 = 704-7) POLYCHROMASIA (test 2+ See_Comment [Automa clarita code = 81202-5) message] The system which generated this result transmitted reference range : 2+. The referen ce range was not u sed to interpret th is result as normal/abnormal . GIANT PLATELETS (test Present See_Comment A [Auto mated code = 5908-9) message] The system which generated this result transmitted reference range : (none). The reference range was not used to interpret this result as normal/abnormal . Lab Interpretation Abnormal (test code = 68924-5) [facility] [id number] 15:24:52 Test Item Value Reference Range Interpretation Comments TROPONIN I (test code = 0.007 ng/mL <=0.034 1790144675) ANTHONY (test code = ANTHONY) Reference (Normal) Range (defined by the 99th percentile reference limit): <= 0.034 ng/mL Note: Cardiac troponin begins to rise 3-4 hours after the onset of ischemia. Repeat in 4-6 hours if the sample was drawn within 3-4 hours of the onset of the symptom and found normal. Diagnosis of myocardial injury is made with acute changes in cTn concentrations with at least one serial sample above the 99th percentile upper reference limit (URL), taken together with the patient's clinical presentation. Biotin has been reported to cause a negative bias, interpret results relative to patient's use of biotin. Lab Interpretation Normal (test code = 20675-3) [facility] [id number] 15:21:46 Test Item Value Reference Range Interpretation Comments NT-proBNP (test code = 35 pg/mL <=125 5143499286) ANTHONY (test code = ANTHONY) Biotin has been reported to cause a negative bias, interpret results relative to patient's use of biotin. Lab Interpretation (test Normal code = 22504-5) [facility]. METABOLIC PANEL (20996)2022-10-24 15:12:46 Test Item Value Reference Range Interpretation Comments NA (test code = 134 mmol/L 135-145 L 1528573097) K (test code = 3.8 mmol/L 3.5-5.0 4738274527) CL (test code = 95 mmol/L 98-108 L 1649163210) CO2 TOTAL (test code = 26 mmol/L 23-31 6797169876) AGAP (test code = 13 2-16 7614753393) BUN (test code = 22 mg/dL 7-23 6324069115) GLUCOSE (test code = 140 mg/dL 70-110 H 1740034463) CREATININE (test code = 0.93 mg/dL 0.60-1.25 1530886535) TOTAL BILI (test code = 0.7 mg/dL 0.1-1.2 0109048689) CALCIUM (test code = 8.6 mg/dL 8.6-10.6 6209070646) T PROTEIN (test code = 6.8 g/dL 6.3-8.2 1784416933) ALBUMIN (test code = 3.9 g/dL 3.5-5.0 4360795647) ALK PHOS (test code = 103 U/L 34-122 4303774893) ALTv (test code = 46 U/L 5-50 1742-6) AST(SGOT) (test code = 52 U/L 13-40 H 3934242749) eGFR (test code = 85.3 mL/min/1.73m2 4112555460) ANTHONY (test code = ANTHONY) Association of Glomerular Filtration Rate (GFR) and Staging of Kidney Disease* + --+ --+ ------+| GFR (mL/min/1.73 m2) ?| With Kidney Damage ?| ?Without Kidney Damage+ --------+ --------+ +| ?>90 ?| ?Stage one ?| ? Normal ?+ ---+ ---+ -------+| ?60-89 ?| ?Stage two ?| ? Decreased GFR ? + --+ --+ ------+| ?30-59 ?| ?Stage three ?| ? Stage three ? + --+ --+ ------+| ?15-29 ?| ?Stage four ? | ? Stage four ?+ ---+ ---+ -------+| ?<15 (or dialysis) ? ?| ?Stage five ? | ? Stage five ?+ ---+ ---+ -------+ *Each stage assumes the associated GFR level has been in effect for at least three months. ?Stages 1 to 5, with or without kidney disease, indicate chronic kidney disease. Notes: Determination of stages one and two (with eGFR >59mL/min/1.73 m2) requires estimation of kidney damage for at least three months as defined by structural or functional abnormalities of the kidney, manifested by either:Pathological abnormalities or Markers of kidney damage (including abnormalities in the composition of the blood or urine or abnormalities in imaging tests). Lab Interpretation Abnormal (test code = 23621-1) [facility] GLUCOSE (AUTOMATED)2022-09-19 17:23:25 Test Item Value Reference Range Interpretation Comments POCT GLU (test code = 3739496844) 221 mg/dL 70-110 H Lab Interpretation (test code = Abnormal 97884-2) [facility] GLUCOSE (AUTOMATED)2022-09-19 13:08:55 Test Item Value Reference Range Interpretation Comments POCT GLU (test code = 0314489833) 184 mg/dL 70-110 H Lab Interpretation (test code = Abnormal 55120-6) [facility] [id number] 00:06:44 Test Item Value Reference Range Interpretation Comments TROPONIN I (test code = 0.005 ng/mL <=0.034 0256528748) ANTHONY (test code = ANTHONY) Reference (Normal) Range (defined by the 99th percentile reference limit): <= 0.034 ng/mL Note: Cardiac troponin begins to rise 3-4 hours after the onset of ischemia. Repeat in 4-6 hours if the sample was drawn within 3-4 hours of the onset of the symptom and found normal. Diagnosis of myocardial injury is made with acute changes in cTn concentrations with at least one serial sample above the 99th percentile upper reference limit (URL), taken together with the patient's clinical presentation. Biotin has been reported to cause a negative bias, interpret results relative to patient's use of biotin. Lab Interpretation Normal (test code = 36022-4) [facility] [id number] 00:03:21 Test Item Value Reference Range Interpretation Comments NT-proBNP (test code = 19 pg/mL <=125 0850390950) ANTHONY (test code = ANTHONY) Biotin has been reported to cause a negative bias, interpret results relative to patient's use of biotin. Lab Interpretation (test Normal code = 81211-6) [facility] 23:55:01 Test Item Value Reference Range Interpretation Comments MAGNESIUM (test code = 4098453200) 1.9 mg/dL 1.7-2.4 Lab Interpretation (test code = Normal 20612-6) [facility] ([id number])2022-08-22 23:54:41 Test Item Value Reference Range Interpretation Comments NA (test code = 137 mmol/L 135-145 6165880670) K (test code = 4.5 mmol/L 3.5-5.0 5706398159) CL (test code = 97 mmol/L 98-108 L 5494177120) CO2 TOTAL (test code = 27 mmol/L 23-31 1034194030) AGAP (test code = 13 2-16 8132693124) BUN (test code = 12 mg/dL 7-23 3805201444) GLUCOSE (test code = 145 mg/dL 70-110 H 6267320176) CREATININE (test code = 0.61 mg/dL 0.60-1.25 7721314930) TOTAL BILI (test code = 0.6 mg/dL 0.1-1.6 7211223584) CALCIUM (test code = 9.3 mg/dL 8.6-10.6 9245267628) T PROTEIN (test code = 7.3 g/dL 6.3-8.2 3807481873) ALBUMIN (test code = 4.3 g/dL 3.5-5.0 5416028024) ALK PHOS (test code = 82 U/L 34-122 4526611291) ALTv (test code = 39 U/L 5-50 1742-6) AST(SGOT) (test code = 39 U/L 13-40 1202918088) eGFR (test code = 138.8 mL/min/1.73m2 4347694476) ANTHONY (test code = ANTHONY) Association of Glomerular Filtration Rate (GFR) and Staging of Kidney Disease* + --+ --+ ------+| GFR (mL/min/1.73 m2) ?| With Kidney Damage ?| ?Without Kidney Damage+ --------+ --------+ +| ?>90 ?| ?Stage one ?| ? Normal ?+ ---+ ---+ -------+| ?60-89 ?| ?Stage two ?| ? Decreased GFR ? + --+ --+ ------+| ?30-59 ?| ?Stage three ?| ? Stage three ? + --+ --+ ------+| ?15-29 ?| ?Stage four ? | ? Stage four ?+ ---+ ---+ -------+| ?<15 (or dialysis) ? ?| ?Stage five ? | ? Stage five ?+ ---+ ---+ -------+ *Each stage assumes the associated GFR level has been in effect for at least three months. ?Stages 1 to 5, with or without kidney disease, indicate chronic kidney disease. Notes: Determination of stages one and two (with eGFR >59mL/min/1.73 m2) requires estimation of kidney damage for at least three months as defined by structural or functional abnormalities of the kidney, manifested by either:Pathological abnormalities or Markers of kidney damage (including abnormalities in the composition of the blood or urine or abnormalities in imaging tests). Lab Interpretation Abnormal (test code = 07808-1) [facility] WITH [id number] 23:42:39 Test Item Value Reference Range Interpretation Comments WBC (test code = 15.58 See_Comment H [Automated 1674-2) message] The system which generated this result transmit clarita reference range : 4.20 - 10.70 10*3/?L. The reference range was not used to interpret this result as normal/abnormal . RBC (test code = 5.19 See_Comment [Automated 461-8) message] The system which generated this result transmit clarita reference range : 4.26 - 5.52 10*6/?L. The reference range was not used to interpret this result as normal/abnormal . HGB (test code = 15.3 g/dL 12.2-16.4 718-7) HCT (test code = 46.7 % 38.4-49.3 4544-3) MCV (test code = 90.0 fL 81.7-95.6 787-2) MCH (test code = 29.5 pg 26.1-32.7 785-6) MCHC (test code = 32.8 g/dL 31.2-35.0 786-4) RDW-SD (test code = 44.2 fL 38.5-51.6 82773-4) RDW-CV (test code = 13.5 % 12.1-15.4 788-0) PLT (test code = 221 See_Comment [Automated 777-3) message] The system which generated this result transmit clarita reference range : 150 - 328 10*3/ ?L. The reference range was not u sed to interpret th is result as normal/abnormal . MPV (test code = 11.2 fL 9.8-13.0 87735-2) NRBC/100 WBC (test 0.0 See_Comment [Automat ed code = 3433566872) message] The system which generated this result transmit clarita reference range : 0.0 - 10.0 /100 WBCs. The reference range was not used to interpret this result as normal/abnormal . NRBC x10^3 (test code See_Comment [Auto mated = 6277702273) message] The system which generated this result transmit clarita reference range : 10*3/?L. The reference range was not used to interpret this result as normal/abnormal . GRAN MAT (NEUT) % 69.4 % (test code = 770-8) IMM GRAN % (test code 0.50 % = 2094686179) LYMPH % (test code = 19.6 % 736-9) MONO % (test code = 7.3 % 5905-5) EOS % (test code = 2.8 % 713-8) BASO % (test code = 0.4 % 706-2) GRAN MAT x10^3(ANC) 10.81 10*3/uL 1.99-6.95 H (test code = 4550184488) IMM GRAN x10^3 (test 0.08 10*3/uL 0.00-0.06 H code = 7837547607) LYMPH x10^3 (test code 3.05 10*3/uL 1.09-3.23 = 731-0) MONO x10^3 (test code 1.14 10*3/uL 0.36-1.02 H = 742-7) EOS x10^3 (test code = 0.43 10*3/uL 0.06-0.53 711-2) BASO x10^3 (test code 0.07 10*3/uL 0.01-0.09 = 704-7) Lab Interpretation Abnormal (test code = 93765-2) [facility] GLUCOSE (AUTOMATED)2022-08-10 13:27:17 Test Item Value Reference Range Interpretation Comments POCT GLU (test code = 9640059727) 266 mg/dL 70-110 H Lab Interpretation (test code = Abnormal 42708-0) [facility] GLUCOSE (AUTOMATED)2022-08-10 12:30:27 Test Item Value Reference Range Interpretation Comments POCT GLU (test code = 6981642593) 214 mg/dL 70-110 H Lab Interpretation (test code = Abnormal 88315-6) [facility] GLUCOSE (AUTOMATED)2022-08-10 01:05:35 Test Item Value Reference Range Interpretation Comments POCT GLU (test code = 3092975823) 221 mg/dL 70-110 H Lab Interpretation (test code = Abnormal 22885-4) [facility] (A1C[facility]2022-08-09 23:01:48 Test Item Value Reference Range Interpretation Comments HGB A1C (test code = 5.9 % 4.0-5.7 H 4548-4) ANTHONY (test code = ANTHONY) Reference RangesNormal: <5.7%Prediabetes: 5.7 - 6.4%Diabetes: > 6.5% Lab Interpretation (test Abnormal code = 29420-6) [facility] GLUCOSE (AUTOMATED)2022-08-09 21:59:26 Test Item Value Reference Range Interpretation Comments POCT GLU (test code = 9239358932) 211 mg/dL 70-110 H Lab Interpretation (test code = Abnormal 84283-9) [facility]OL[facility] ([id number])2022-08-09 20:10:33 Test Item Value Reference Range Interpretation Comments NA (test code = 136 mmol/L 135-145 8425817738) K (test code = 5.4 mmol/L 3.5-5.0 H 2745770310) CL (test code = 99 mmol/L 98-108 8856791921) CO2 TOTAL (test code = 32 mmol/L 23-31 H 1747182115) AGAP (test code = 5 2-16 2597223791) BUN (test code = 15 mg/dL 7-23 1079060474) GLUCOSE (test code = 125 mg/dL 70-110 H 1941738632) CREATININE (test code = 0.57 mg/dL 0.60-1.25 L 4245873942) TOTAL BILI (test code = 0.5 mg/dL 0.1-1.4 1319141910) CALCIUM (test code = 9.2 mg/dL 8.6-10.6 0138052444) T PROTEIN (test code = 7.3 g/dL 6.3-8.2 3284839093) ALBUMIN (test code = 4.1 g/dL 3.5-5.0 6681468193) ALK PHOS (test code = 124 U/L 34-122 H 8719422743) ALTv (test code = 35 U/L 5-50 1742-6) AST(SGOT) (test code = 43 U/L 13-40 H 4715035151) eGFR (test code = 150.1 mL/min/1.73m2 5985531970) ANTHONY (test code = ANTHONY) Association of Glomerular Filtration Rate (GFR) and Staging of Kidney Disease* + --+ --+ ------+| GFR (mL/min/1.73 m2) ?| With Kidney Damage ?| ?Without Kidney Damage+ --------+ --------+ +| ?>90 ?| ?Stage one ?| ? Normal ?+ ---+ ---+ -------+| ?60-89 ?| ?Stage two ?| ? Decreased GFR ? + --+ --+ ------+| ?30-59 ?| ?Stage three ?| ? Stage three ? + --+ --+ ------+| ?15-29 ?| ?Stage four ? | ? Stage four ?+ ---+ ---+ -------+| ?<15 (or dialysis) ? ?| ?Stage five ? | ? Stage five ?+ ---+ ---+ -------+ *Each stage assumes the associated GFR level has been in effect for at least three months. ?Stages 1 to 5, with or without kidney disease, indicate chronic kidney disease. Notes: Determination of stages one and two (with eGFR >59mL/min/1.73 m2) requires estimation of kidney damage for at least three months as defined by structural or functional abnormalities of the kidney, manifested by either:Pathological abnormalities or Markers of kidney damage (including abnormalities in the composition of the blood or urine or abnormalities in imaging tests). Lab Interpretation Abnormal (test code = 28942-4) [facility] [id number] 18:20:33 Test Item Value Reference Range Interpretation Comments TROPONIN I (test code = 0.017 ng/mL <=0.034 1816313649) ANTHONY (test code = ANTHONY) Reference (Normal) Range (defined by the 99th percentile reference limit): <= 0.034 ng/mL Note: Cardiac troponin begins to rise 3-4 hours after the onset of ischemia. Repeat in 4-6 hours if the sample was drawn within 3-4 hours of the onset of the symptom and found normal. Diagnosis of myocardial injury is made with acute changes in cTn concentrations with at least one serial sample above the 99th percentile upper reference limit (URL), taken together with the patient's clinical presentation. Biotin has been reported to cause a negative bias, interpret results relative to patient's use of biotin. Lab Interpretation Normal (test code = 95298-8) [facility] [id number] 18:17:10 Test Item Value Reference Range Interpretation Comments NT-proBNP (test code = 93 pg/mL <=125 9821297714) ANTHONY (test code = ANTHONY) Biotin has been reported to cause a negative bias, interpret results relative to patient's use of biotin. Lab Interpretation (test Normal code = 80174-9) [facility] WITH [id number] 17:40:06 Test Item Value Reference Range Interpretation Comments WBC (test code = 9.56 See_Comment [Automated 2790-2) message] The sy stem which generated this result transmitted reference range : 4.20 - 10.70 10*3/?L. The reference range was not used to interpret this result as normal/abnormal . RBC (test code = 5.01 See_Comment [Automated 789-8) message] The sy stem which generated this result transmitted reference range : 4.26 - 5.52 10*6/?L. The reference range was not used to interpret this result as normal/abnormal . HGB (test code = 14.7 g/dL 12.2-16.4 718-7) HCT (test code = 46.8 % 38.4-49.3 4544-3) MCV (test code = 93.4 fL 81.7-95.6 787-2) MCH (test code = 29.3 pg 26.1-32.7 785-6) MCHC (test code = 31.4 g/dL 31.2-35.0 786-4) RDW-SD (test code = 45.8 fL 38.5-51.6 58368-0) RDW-CV (test code = 13.5 % 12.1-15.4 788-0) PLT (test code = 217 See_Comment [Automated 777-3) message] The sy stem which generated this result transmitted reference range : 150 - 328 10*3/ ?L. The reference r sumeet was not used to interpret this result as normal/abnormal . MPV (test code = 11.0 fL 9.8-13.0 66284-7) NRBC/100 WBC (test 0.0 See_Comment [Automat ed code = 1654153026) message] The system which generated this result transmitted reference range : 0.0 - 10.0 /100 WBCs. The refer ence range was not u sed to interpret th is result as normal/abnormal . NRBC x10^3 (test code See_Comment [Auto mated = 0696430062) message] The s ystem which generated this result transmitted reference range : 10*3/?L. The reference range was not used to interpret this result as normal/abnormal . GRAN MAT (NEUT) % 53.8 % (test code = 770-8) IMM GRAN % (test code 1.60 % = 8146793853) LYMPH % (test code = 28.2 % 736-9) MONO % (test code = 10.5 % 5905-5) EOS % (test code = 5.2 % 713-8) BASO % (test code = 0.7 % 706-2) GRAN MAT x10^3(ANC) 5.14 10*3/uL 1.99-6.95 (test code = 0807277172) IMM GRAN x10^3 (test 0.15 10*3/uL 0.00-0.06 H code = 1953679658) LYMPH x10^3 (test code 2.70 10*3/uL 1.09-3.23 = 731-0) MONO x10^3 (test code 1.00 10*3/uL 0.36-1.02 = 742-7) EOS x10^3 (test code = 0.50 10*3/uL 0.06-0.53 711-2) BASO x10^3 (test code 0.07 10*3/uL 0.01-0.09 = 704-7) Lab Interpretation Abnormal (test code = 21711-2) [facility] GLUCOSE (AUTOMATED)2022-04-04 18:02:55 Test Item Value Reference Range Interpretation Comments POCT GLU (test code = 3951732936) 98 mg/dL 70-110 Lab Interpretation (test code = Normal 92492-5) [facility] GLUCOSE (AUTOMATED)2022-04-04 14:19:26 Test Item Value Reference Range Interpretation Comments POCT GLU (test code = 2372972963) 114 mg/dL 70-110 H Lab Interpretation (test code = Abnormal 54955-0) [facility] GLUCOSE (AUTOMATED)2022-04-04 12:25:45 Test Item Value Reference Range Interpretation Comments POCT GLU (test code = 6226581373) 96 mg/dL 70-110 Lab Interpretation (test code = Normal 71122-1) [facility] GLUCOSE (AUTOMATED)2022-04-03 19:17:27 Test Item Value Reference Range Interpretation Comments POCT GLU (test code = 1668139756) 281 mg/dL 70-110 H Lab Interpretation (test code = Abnormal 87520-0) [facility]22[facility]30 16:35:11 Test Item Value Reference Interpretation Comments Range Procalcitonin (test 0.02 ng/mL See_Comment [Automa clarita code = 8007892182) message] The system which generated this result transmitted reference range: <=0.07. The reference range was not used to interpret this result as normal/abnormal . ANTHONY (test code = INTERPRETATION OF ANTHONY) PROCALCITONIN RESULTS IN ADULTS >= 18 YEARS OF AGE Initiation and discontinuation of antibiotics on patients with suspected or confirmed Lower Respiratory Tract Infection in Adults >= 18 years of age. + +------ + ----+ +|Procalcit onin |Interpretation ?|Antibiotic ? ? |Considerations ? |ng/mL ? | ?|recommendation | ? + +------ + ----+ +| <0.1 ? | Bacterial ? ? ?| Strongly ? ? ?| ? | ?| infection very | discouraged ? | Overruling: ? | ?| unlikely ? ? ? | ? | ? Clinically unstable ? ? ? + +------ + ----+ ? High risk for adverse ? ? | <0.25 ?| Bacterial ? ? ?| Discouraged ? | ? outcome ? | ?| infection ? ? ?| ? | ? SEE IMPORTANT NOTE ?| ?| unlikely ? ? ? | ? | ? + +------ + ----+ +| >=0.25 ? ? ? | Bacterial ? ? ?| Encouraged ? ?| ? | ?| infection ? ? ?| ? | ? | ?| likely ? | ? | Consider treatment failure ?+ +----- + -----+ if levels does not decrease | >0.5 ? | Bacterial ? ? ?| Strongly ? ? ?| appropriately ? | ?| infection very | encouraged ? ?| ? | ?| likely ? | ? | ? + +------ + ----+ + Discontinuation of antibiotics in high-acuity patients with suspected or confirmed sepsis in Adults >= 18 years of age. + +------ + ----+ +|Procalcit onin |Interpretation ?|Antibiotic ? ? |Considerations ? |ng/mL ? | ?|recommendation | ? + +------ + ----+ +| <0.25 ?| Bacterial ? ? ?| Strongly ? ? ?| ? | ?| infection very | discouraged ? | Overruling: ? | ?| unlikely ? ? ? | ? | ? Clinically unstable ? ? ? + +------ + ----+ ? High risk for adverse ? ? | <0.5 or drop | Bacterial ? ? ?| Discouraged ? | ? outcome ? | >80% from ? ?| infection ? ? ?| ? | ? SEE IMPORTANT NOTE ?| highest PCT ?| unlikely ? ? ? | ? | ? | level ?| ?| ? | ? + +------ + ----+ +| >=0.5 ?| Bacterial ? ? ?| Encouraged ? ?| ? | ?| infection ? ? ?| ? | ? | ?| likely ? | ? | Consider treatment failure ?+ +----- + -----+ if levels does not decrease | >1.0 ? | Bacterial ? ? ?| Strongly ? ? ?| appropriately ? | ?| infection very | encouraged ? ?| ? | ?| likely ? | ? | ? + +------ + ----+ + Percentage of drop of Procalcitonin calculation for Discontinuation of antibiotics in high-acuity patients with suspected or confirmed sepsis in Adults >= 18 years of age. ? Procalcitonin highest{}-Procalcitoni n current{}Delta Procalcitonin = ___ x100% ? Procalcitonin current {} IMPORTANT NOTE: Procalcitonin may be elevated without bacterial infection by physiologic stress related to trauma, schmitt, chronic dialysis, metastatic cancer, surgery in the past seven days, malaria, some fungal infections, and some forms of vasculitis. The interpretation algorithm may not apply to patients with immunosuppression (equivalent of >10 mg of prednisone daily), HIV with CD4 cell count < 350 cells/mm3, active malignancy on systemic chemotherapy, solid organ transplant or hematopoietic stem cell transplantation, or hospital acquired pneumonia. Additionally, some clinical trials of procalcitonin have excluded patients with shock requiring vasopressor use, acute respiratory failure requiring mechanical ventilation, or those with known lung abscess/empyema. For further information please refer to:[email or web address] Lab Interpretation Normal (test code = 30636-7) [facility] 15:18:50 Test Item Value Reference Range Interpretation Comments POCT GLU (test code = 4995813663) 176 mg/dL 70-110 H Lab Interpretation (test code = Abnormal 39529-4) [facility] WITH [id number] 10:11:57 Test Item Value Reference Range Interpretation Comments WBC (test code = See_Comment H [Automated 6090-2) message] The system which generated this result transmit clarita reference range : 4.20 - 10.70 10*3/?L. The reference range was not used to interpret this result as normal/abnormal . RBC (test code = See_Comment [Automated 022-8) message] The system which generated this result transmit clarita reference range : 4.26 - 5.52 10*6/?L. The reference range was not used to interpret this result as normal/abnormal . HGB (test code = 14.2 g/dL 12.2-16.4 718-7) HCT (test code = 44.3 % 38.4-49.3 4544-3) MCV (test code = 89.7 fL 81.7-95.6 787-2) MCH (test code = 28.7 pg 26.1-32.7 785-6) MCHC (test code = 32.1 g/dL 31.2-35.0 786-4) RDW-SD (test code = 45.2 fL 38.5-51.6 09996-5) RDW-CV (test code = 13.9 % 12.1-15.4 788-0) PLT (test code = See_Comment [Automated 777-3) message] The system which generated this result transmit clarita reference range : 150 - 328 10*3/ ?L. The reference range was not u sed to interpret th is result as normal/abnormal . MPV (test code = 12.2 fL 9.8-13.0 64399-8) NRBC/100 WBC (test See_Comment [Automat ed code = 5741189202) message] The system which generated this result transmit clarita reference range : 0.0 - 10.0 /100 WBCs. The reference range was not used to interpret this result as normal/abnormal . NRBC x10^3 (test code See_Comment [Auto mated = 8324936845) message] The system which generated this result transmit clarita reference range : 10*3/?L. The reference range was not used to interpret this result as normal/abnormal . GRAN MAT (NEUT) % 71.9 % (test code = 770-8) IMM GRAN % (test code 1.40 % = 7609847267) LYMPH % (test code = 16.8 % 736-9) MONO % (test code = 7.5 % 5905-5) EOS % (test code = 2.0 % 713-8) BASO % (test code = 0.4 % 706-2) GRAN MAT x10^3(ANC) 10.20 10*3/uL 1.99-6.95 H (test code = 2381706009) IMM GRAN x10^3 (test 0.20 10*3/uL 0.00-0.06 H code = 8764027402) LYMPH x10^3 (test code 2.38 10*3/uL 1.09-3.23 = 731-0) MONO x10^3 (test code 1.06 10*3/uL 0.36-1.02 H = 742-7) EOS x10^3 (test code = 0.28 10*3/uL 0.06-0.53 711-2) BASO x10^3 (test code 0.06 10*3/uL 0.01-0.09 = 704-7) Lab Interpretation Abnormal (test code = 08732-4) [facility] [id number] 01:55:47 Test Item Value Reference Interpretation Comments Range TROPONIN I (test 0.006 ng/mL See_Comment [Automated code = 9190297035) message] The system which generated this result transmitted reference range : <=0.034. The reference range was not used to interpret this result as normal/abnormal . ANTHONY (test code = Reference (Normal) ANTHONY) Range (defined by the 99th percentile reference limit): <= 0.034 ng/mL Note: Cardiac troponin begins to rise 3-4 hours after the onset of ischemia. Repeat in 4-6 hours if the sample was drawn within 3-4 hours of the onset of the symptom and found normal. Diagnosis of myocardial injury is made with acute changes in cTn concentrations with at least one serial sample above the 99th percentile upper reference limit (URL), taken together with the patient's clinical presentation. Biotin has been reported to cause a negative bias, interpret results relative to patient's use of biotin. Lab Interpretation Normal (test code = 12209-2) [facility] [id number] 01:52:29 Test Item Value Reference Range Interpretation Comments NT-proBNP (test code 40 pg/mL See_Comment [Autom ated = 3651725115) message] The system which generated this result transmitted reference range : <=125. The reference range was not used to interpret this result as normal/abnormal . ANTHONY (test code = ANTHONY) Biotin has been reported to cause a negative bias, interpret results relative to patient's use of biotin. Lab Interpretation Normal (test code = 96919-7) [facility] ([id number])2022-04-03 01:44:04 Test Item Value Reference Range Interpretation Comments NA (test code = 138 mmol/L 135-145 3260318096) K (test code = 4.3 mmol/L 3.5-5.0 1315883665) CL (test code = 102 mmol/L 98-108 8782003983) CO2 TOTAL (test code = 28 mmol/L 23-31 6124218971) AGAP (test code = 2-16 4316695017) BUN (test code = 21 mg/dL 7-23 0929866411) GLUCOSE (test code = 140 mg/dL 70-110 H 9966144942) CREATININE (test code = 1.35 mg/dL 0.60-1.25 H 8321569707) TOTAL BILI (test code = 0.5 mg/dL 0.1-1.3 8914718578) CALCIUM (test code = 9.3 mg/dL 8.6-10.6 7866036274) T PROTEIN (test code = 7.1 g/dL 6.3-8.2 8162991554) ALBUMIN (test code = 4.1 g/dL 3.5-5.0 5717597693) ALK PHOS (test code = 89 U/L 34-122 5775828486) ALTv (test code = 61 U/L 5-50 H 1742-6) AST(SGOT) (test code = 47 U/L 13-40 H [id number]) eGFR (test code = mL/min/1.73m2 7506066298) ANTHONY (test code = ANTHONY) Association of Glomerular Filtration Rate (GFR) and Staging of Kidney Disease* + --+ --+ ------+| GFR (mL/min/1.73 m2) ?| With Kidney Damage ?| ?Without Kidney Damage+ --------+ --------+ +| ?>90 ?| ?Stage one ?| ? Normal ?+ ---+ ---+ -------+| ?60-89 ?| ?Stage two ?| ? Decreased GFR ? + --+ --+ ------+| ?30-59 ?| ?Stage three ?| ? Stage three ? + --+ --+ ------+| ?15-29 ?| ?Stage four ? | ? Stage four ?+ ---+ ---+ -------+| ?<15 (or dialysis) ? ?| ?Stage five ? | ? Stage five ?+ ---+ ---+ -------+ *Each stage assumes the associated GFR level has been in effect for at least three months. ?Stages 1 to 5, with or without kidney disease, indicate chronic kidney disease. Notes: Determination of stages one and two (with eGFR >59mL/min/1.73 m2) requires estimation of kidney damage for at least three months as defined by structural or functional abnormalities of the kidney, manifested by either:Pathological abnormalities or Markers of kidney damage (including abnormalities in the composition of the blood or urine or abnormalities in imaging tests). Lab Interpretation Abnormal (test code = 53231-9) [facility] [id number] 01:42:28 Test Item Value Reference Range Interpretation Comments APTT Patient (test See_Comment [Automat ed code = 3173-2) message] The system which generated this result transmitted reference range : 23 - 38 Seconds . The reference range was not used to interpr et this result as normal/abnormal . ANTHONY (test code = ANTHONY) The [facility] patient population mean normal value for aPTT is 30 seconds. Lab Interpretation Normal (test code = 75401-5) [facility] / [id number] 01:40:26 Test Item Value Reference Range Interpretation Comments PROTIME PATIENT (test See_Comment [Auto mated message] code = 5964-2) The system wh ich generated this result transmitted ref erence range: 12.0 - 1 4.7 Seconds. The re ference range was not u sed to interpret this result as normal/abnor mal. INR (test code = 6301-6) Nor mal INR <1.1; Warfarin Therap eutic range 2.0 to 3. 0 or 2.5 to 3.5, dep ending upon the indica tions. Lab Interpretation (test Normal code = 43714-5) [facility] WITH [id number] 01:36:08 Test Item Value Reference Range Interpretation Comments WBC (test code = See_Comment H [Automated 4690-2) message] The system which generated this result transmit clarita reference range : 4.20 - 10.70 10*3/?L. The reference range was not used to interpret this result as normal/abnormal . RBC (test code = See_Comment [Automated 909-8) message] The system which generated this result transmit clarita reference range : 4.26 - 5.52 10*6/?L. The reference range was not used to interpret this result as normal/abnormal . HGB (test code = 14.6 g/dL 12.2-16.4 718-7) HCT (test code = 45.8 % 38.4-49.3 4544-3) MCV (test code = 89.5 fL 81.7-95.6 787-2) MCH (test code = 28.5 pg 26.1-32.7 785-6) MCHC (test code = 31.9 g/dL 31.2-35.0 786-4) RDW-SD (test code = 45.0 fL 38.5-51.6 20468-3) RDW-CV (test code = 13.6 % 12.1-15.4 788-0) PLT (test code = See_Comment [Automated 777-3) message] The system which generated this result transmit clarita reference range : 150 - 328 10*3/ ?L. The reference range was not u sed to interpret th is result as normal/abnormal . MPV (test code = 11.2 fL 9.8-13.0 60588-6) NRBC/100 WBC (test See_Comment [Automat ed code = 5725991623) message] The system which generated this result transmit clarita reference range : 0.0 - 10.0 /100 WBCs. The reference range was not used to interpret this result as normal/abnormal . NRBC x10^3 (test code See_Comment [Auto mated = 5034941404) message] The system which generated this result transmit clarita reference range : 10*3/?L. The reference range was not used to interpret this result as normal/abnormal . GRAN MAT (NEUT) % 69.2 % (test code = 770-8) IMM GRAN % (test code 1.60 % = 3228713545) LYMPH % (test code = 20.7 % 736-9) MONO % (test code = 6.0 % 5905-5) EOS % (test code = 2.0 % 713-8) BASO % (test code = 0.5 % 706-2) GRAN MAT x10^3(ANC) 10.62 10*3/uL 1.99-6.95 H (test code = 0869506397) IMM GRAN x10^3 (test 0.24 10*3/uL 0.00-0.06 H code = 6565480716) LYMPH x10^3 (test code 3.17 10*3/uL 1.09-3.23 = 731-0) MONO x10^3 (test code 0.92 10*3/uL 0.36-1.02 = 742-7) EOS x10^3 (test code = 0.30 10*3/uL 0.06-0.53 711-2) BASO x10^3 (test code 0.07 10*3/uL 0.01-0.09 = 704-7) Lab Interpretation Abnormal (test code = 28409-8) [facility] GLUCOSE (AUTOMATED)2022-03-28 14:14:15 Test Item Value Reference Range Interpretation Comments POCT GLU (test code = 9473332521) 90 mg/dL 70-110 Lab Interpretation (test code = Normal 28186-1) [facility] GLUCOSE (AUTOMATED)2022-03-28 10:43:40 Test Item Value Reference Range Interpretation Comments POCT GLU (test code = 7540787384) 134 mg/dL 70-110 H Lab Interpretation (test code = Abnormal 26372-0) [facility] GLUCOSE (AUTOMATED)2022-03-28 02:13:48 Test Item Value Reference Range Interpretation Comments POCT GLU (test code = 4773384870) 178 mg/dL 70-110 H Lab Interpretation (test code = Abnormal 91650-9) [facility] GLUCOSE (AUTOMATED)2022-03-27 23:57:24 Test Item Value Reference Range Interpretation Comments POCT GLU (test code = 9260874859) 160 mg/dL 70-110 H Lab Interpretation (test code = Abnormal 90470-7) [facility]2022-03-27 18:14:04 Test Item Value Reference Range Interpretation Comments Height (test code = in 0687629885) Weight (test code = lbs 5648505935) Systolic BP (test code = mmHg 4394452288) Diastolic BP (test code mmHg = 8028165162) Heart Rate (test code = bpm 0059364164) BSA (test code = 2.49 m2 8328634161) Ao root diam (test code 4.10 cm = 8467835270) Aortic root (test code = 4.1 cm 3017835876) Ao root annulus (test 4.1 cm code = 4169813062) LVOT diameter (test code 2.00 cm = 4157170362) LVOT area (test code = 3.20 cm2 1019472800) LVIDD (test code = 4.90 cm 8289049658) Left Ventricular End 113.3 mL Diastolic Volume by Teichholz Method (test code = 6461640) IVS (test code = 1.43 cm 2966450443) Interventricular Septum 1.43 cm Diastolic Thickness by 2D (test code = 1552272) LVPWD (test code = 1.43 cm 7176582435) PW (test code = 1.43 cm 0.6-1.9 6784925729) EF(Teich) (test code = 62.30 % 0196060460) LVIDS (test code = 3.30 cm 5789075314) Left Ventricular End 42.7 mL Systolic Volume by Teichholz Method (test code = 5856484) FS (test code = 34 % 6082426756) EF - 2D (test code = 62.30 % 16038441) LA size (test code = 3.5 cm 4433119558) LAV(MOD-sp4) (test code 56.50 mL = 0348253533) MV Peak E Jia (test code 74.7 cm/s = 5629440834) MV stenosis pressure 1/2 66.4 ms time (test code = 4267264485) E wave decelartion time 0.23 s (test code = 1625246783) MV Peak A Jia (test code 59.3 cm/s = 9383057313) E/A ratio (test code = ratio 9003969464) MV Prop V (test code = 66.40 cm/s 4262567850) MV E/e' septal (test 16.1 cm/s code = 6835601661) Tapse (test code = 2.10 cm 2699182337) LVOT stroke volume (test 63.70 cm3 code = 9151901225) LVOT peak jia (test code 124.9 cm/s = 6221208141) LVOT mn grad (test code mmHg = 3249103341) AV LVOT peak gradient mmHg (test code = 4185419765) LVOT peak VTI (test code 20.2 cm = 4513879700) LV V1 mean (test code = 89.50 cm/s 6226698526) Aortic valve mean 127.9 cm/s velocity (test code = 2624079933) Ao peak jia (test code = 172.1 cm/s 0638404468) Ao VTI (test code = 28.9 cm 9977033536) AV area by cont VTI 2.2 cm2 (test code = 8182711230) AV area peak jia (test 2.3 cm2 code = 7855882527) Ao max PG (test code = 11.80 mm[Hg] 5587701457) AV peak gradient (test mmHg code = 8240404708) AV valve area (test code 2.21 cm2 = 7242609948) AV mean gradient (test mmHg code = 3055454106) Radiology Study observation (narrative) (test code = 49969-0) ANTHONY (test code = ANTHONY) Table formatting from the original result was not included. ?Left?Ventricle: Left ventricle size is normal. Mildly increased wall thickness. Normal wall motion. Normal systolic function with a visually estimated EF of 55 - 60%. Indeterminate diastolic function. ?Right?Ventricle: Right ventricle is normal in size and function. ?Tricuspid?Valve: Insufficient regurgant jet to estimate RVSP. ?RA pressure is 0-5 mmHg. VitalsHeight Weight BSA (Calculated - sq m) BP Pulse ?292 lb 1.6 oz (132.5 kg) ? 132/77 73 Left VentricleLeft ventricle size is normal. Mildly increased wall thickness. Normal wall motion. Normal systolic function with a visually estimated EF of 55 - 60%. Indeterminate diastolic function.Right VentricleRight ventricle is normal in size and function. There is a pacemaker lead in the right ventricle.Left AtriumLeft atrium size is normal.Right AtriumRight atrium size is normal. Lead present in the right atrium.Mitral ValveMitral valve structure is grossly normal.Tricuspid ValveTricuspid valve structure is normal. Insufficient regurgant jet to estimate RVSP. RA pressure is 0-5 mmHg.Aortic ValveTricuspid.Pulmon ic ValveNot well visualized.Ascending AortaNormal sized aorta.Study DetailsStudy quality was adequate. A complete echocardiogram was performed using 2D, color flow Doppler and spectral Doppler. [facility] GLUCOSE (AUTOMATED)2022-03-27 15:04:52 Test Item Value Reference Range Interpretation Comments POCT GLU (test code = 7877694698) 115 mg/dL 70-110 H Lab Interpretation (test code = Abnormal 96681-9) [facility] GLUCOSE (AUTOMATED)2022-03-27 02:42:24 Test Item Value Reference Range Interpretation Comments POCT GLU (test code = 9072364991) 138 mg/dL 70-110 H Lab Interpretation (test code = Abnormal 86663-3) [facility] GLUCOSE (AUTOMATED)2022-03-26 23:13:10 Test Item Value Reference Range Interpretation Comments POCT GLU (test code = 0038777575) 122 mg/dL 70-110 H Lab Interpretation (test code = Abnormal 71442-0) [facility] HospitalLaaz[facility] Acid Whole [id number] 15:04:19 Test Item Value Reference Range Interpretation Comments LACTIC ACID (test code = 0.98 mmol/L 0.50-2.20 2334925043) Lab Interpretation (test code = Normal 61380-8) [facility] WITH [id number] 14:22:33 Test Item Value Reference Range Interpretation Comments WBC (test code = See_Comment H [Automated 6690-2) message] The sy stem which generated this result transmitted reference range : 4.20 - 10.70 10*3/?L. The reference range was not used to interpret this result as normal/abnormal . RBC (test code = See_Comment [Automated 789-8) message] The sy stem which generated this result transmitted reference range : 4.26 - 5.52 10*6/?L. The reference range was not used to interpret this result as normal/abnormal . HGB (test code = 15.2 g/dL 12.2-16.4 718-7) HCT (test code = 46.5 % 38.4-49.3 4544-3) MCV (test code = 89.4 fL 81.7-95.6 787-2) MCH (test code = 29.2 pg 26.1-32.7 785-6) MCHC (test code = 32.7 g/dL 31.2-35.0 786-4) RDW-SD (test code = 44.2 fL 38.5-51.6 65962-4) RDW-CV (test code = 13.5 % 12.1-15.4 788-0) PLT (test code = See_Comment [Automated 777-3) message] The sy stem which generated this result transmitted reference range : 150 - 328 10*3/ ?L. The reference r sumeet was not used to interpret this result as normal/abnormal . MPV (test code = 11.6 fL 9.8-13.0 89660-1) NRBC/100 WBC (test See_Comment [Automat ed code = 2643466452) message] The system which generated this result transmitted reference range : 0.0 - 10.0 /100 WBCs. The refer ence range was not u sed to interpret th is result as normal/abnormal . NRBC x10^3 (test code See_Comment [Auto mated = 0938777472) message] The s ystem which generated this result transmitted reference range : 10*3/?L. The reference range was not used to interpret this result as normal/abnormal . GRAN MAT (NEUT) % 71.8 % (test code = 770-8) IMM GRAN % (test code 0.80 % = 8035184094) LYMPH % (test code = 8.6 % 736-9) MONO % (test code = 16.7 % 5905-5) EOS % (test code = 1.5 % 713-8) BASO % (test code = 0.6 % 706-2) GRAN MAT x10^3(ANC) 9.15 10*3/uL 1.99-6.95 H (test code = 2174431977) IMM GRAN x10^3 (test 0.10 10*3/uL 0.00-0.06 H code = 5610022984) LYMPH x10^3 (test code 1.10 10*3/uL 1.09-3.23 = 731-0) MONO x10^3 (test code 2.13 10*3/uL 0.36-1.02 H = 742-7) EOS x10^3 (test code = 0.19 10*3/uL 0.06-0.53 711-2) BASO x10^3 (test code 0.08 10*3/uL 0.01-0.09 = 704-7) BANDS (test code = Increased A 5377224316) Lab Interpretation Abnormal (test code = 90663-1) [facility] [id number] 14:00:11 Test Item Value Reference Interpretation Comments Range TROPONIN I (test 0.011 ng/mL See_Comment [Automated code = 6282381960) message] The system which generated this result transmitted reference range : <=0.034. The reference range was not used to interpret this result as normal/abnormal . ANTHONY (test code = Reference (Normal) ANTHONY) Range (defined by the 99th percentile reference limit): <= 0.034 ng/mL Note: Cardiac troponin begins to rise 3-4 hours after the onset of ischemia. Repeat in 4-6 hours if the sample was drawn within 3-4 hours of the onset of the symptom and found normal. Diagnosis of myocardial injury is made with acute changes in cTn concentrations with at least one serial sample above the 99th percentile upper reference limit (URL), taken together with the patient's clinical presentation. Biotin has been reported to cause a negative bias, interpret results relative to patient's use of biotin. Lab Interpretation Normal (test code = 37632-5) [facility] Hospital[facility]MINAL [id number] 13:56:14 Test Item Value Reference Range Interpretation Comments NT-proBNP (test code 52 pg/mL See_Comment [Autom ated = 3740308143) message] The system which generated this result transmitted reference range : <=125. The reference range was not used to interpret this result as normal/abnormal . ANTHONY (test code = ANTHONY) Biotin has been reported to cause a negative bias, interpret results relative to patient's use of biotin. Lab Interpretation Normal (test code = 28934-8) [facility] [id number] 13:46:51 Test Item Value Reference Range Interpretation Comments APTT Patient (test See_Comment [Automat ed code = 3173-2) message] The system which generated this result transmitted reference range : 23 - 38 Seconds . The reference range was not used to interpr et this result as normal/abnormal . ANTHONY (test code = ANTHONY) The [facility] patient population mean normal value for aPTT is 30 seconds. Lab Interpretation Normal (test code = 34050-0) [facility]. METABOLIC PANEL ([id number])2022-03-26 13:46:30 Test Item Value Reference Range Interpretation Comments NA (test code = 136 mmol/L 135-145 6992206203) K (test code = 4.2 mmol/L 3.5-5.0 9085679717) CL (test code = 95 mmol/L 98-108 L 9466271371) CO2 TOTAL (test code = 32 mmol/L 23-31 H 2353529301) AGAP (test code = 2-16 6729795545) BUN (test code = 14 mg/dL 7-23 5137159432) GLUCOSE (test code = 144 mg/dL 70-110 H 9139955367) CREATININE (test code = 0.76 mg/dL 0.60-1.25 2186779819) TOTAL BILI (test code = 0.4 mg/dL 0.1-1.1 7736876399) CALCIUM (test code = 9.1 mg/dL 8.6-10.6 4065427257) T PROTEIN (test code = 7.9 g/dL 6.3-8.2 7174992917) ALBUMIN (test code = 4.6 g/dL 3.5-5.0 6403724287) ALK PHOS (test code = 117 U/L 34-122 8866698667) ALTv (test code = 33 U/L 5-50 1742-6) AST(SGOT) (test code = 29 U/L 13-40 9483317406) eGFR (test code = mL/min/1.73m2 1299976705) ANTHONY (test code = ANTHONY) Association of Glomerular Filtration Rate (GFR) and Staging of Kidney Disease* + --+ --+ ------+| GFR (mL/min/1.73 m2) ?| With Kidney Damage ?| ?Without Kidney Damage+ --------+ --------+ +| ?>90 ?| ?Stage one ?| ? Normal ?+ ---+ ---+ -------+| ?60-89 ?| ?Stage two ?| ? Decreased GFR ? + --+ --+ ------+| ?30-59 ?| ?Stage three ?| ? Stage three ? + --+ --+ ------+| ?15-29 ?| ?Stage four ? | ? Stage four ?+ ---+ ---+ -------+| ?<15 (or dialysis) ? ?| ?Stage five ? | ? Stage five ?+ ---+ ---+ -------+ *Each stage assumes the associated GFR level has been in effect for at least three months. ?Stages 1 to 5, with or without kidney disease, indicate chronic kidney disease. Notes: Determination of stages one and two (with eGFR >59mL/min/1.73 m2) requires estimation of kidney damage for at least three months as defined by structural or functional abnormalities of the kidney, manifested by either:Pathological abnormalities or Markers of kidney damage (including abnormalities in the composition of the blood or urine or abnormalities in imaging tests). Lab Interpretation Abnormal (test code = 61503-1) [facility] HospitalPROT[facility] / [id number] 13:44:54 Test Item Value Reference Range Interpretation Comments PROTIME PATIENT (test See_Comment [Auto mated message] code = 5964-2) The system [employer] generated this result transmitted ref erence range: 12.0 - 1 4.7 Seconds. The re ference range was not u sed to interpret this result as normal/abnor mal. INR (test code = 6301-6) Nor mal INR <1.1; Warfarin Therap eutic range 2.0 to 3. 0 or 2.5 to 3.5, dep ending upon the indica tions. Lab Interpretation (test Normal code = 75650-0) [facility] HospitalVITAMIN B12, [id number] 07:31:56 Test Item Value Reference Range Interpretation Comments VIT B12 (test code = 414 pg/mL 240-930 4288361000) ANTHONY (test code = ANTHONY) Biotin has been reported to cause a positive bias, interpret results relative to patient's use of biotin. Lab Interpretation (test Normal code = 14879-4) [facility] HospitalTHYROID STIMULATING [id number] 05:15:39 Test Item Value Reference Range Interpretation Comments TSH (test code = See_Comment [Automated message] 0717035816) The system [employer] generated this result transmitted ref erence range: 0.45 - 4 .70 mIU/L. The refe rence range was not u sed to interpret this result as normal/abnor mal. Lab Interpretation (test Normal code = 59048-1) [facility] [id number] 05:02:17 Test Item Value Reference Range Interpretation Comments FREE T4 (test code = See_Comment [Autom ated message] 0393282030) The system [employer] generated this result transmitted ref erence range: 0.78 - 2 .20 ng/dL:. The ref erence range was not u sed to interpret this result as normal/abnor mal. Lab Interpretation (test Normal code = 34895-8) [facility] [id number] 05:01:56 Test Item Value Reference Range Interpretation Comments FREE T3 (test code = 4149529976) 4.57 pg/mL 2.77-5.27 Lab Interpretation (test code = Normal 06921-6) [facility] METABOLIC PANEL ([id number])2022-02-12 04:48:01 Test Item Value Reference Range Interpretation Comments NA (test code = 140 mmol/L 135-145 2920860347) K (test code = 3.7 mmol/L 3.5-5 4435976021) CL (test code = 93 mmol/L 98-108 L 9157410793) CO2 TOTAL (test code = 37 mmol/L 23-31 H 8836142556) AGAP (test code = 2-16 9621564882) BUN (test code = 7 mg/dL 7-23 6072273284) GLUCOSE (test code = 146 mg/dL 70-110 H 9162581103) CREATININE (test code = 0.73 mg/dL 0.6-1.25 6820001456) TOTAL BILI (test code = 0.4 mg/dL 0.1-1.7 9952906862) CALCIUM (test code = 9.4 mg/dL 8.6-10.6 8914012666) T PROTEIN (test code = 7.2 g/dL 6.3-8.2 1200533472) ALBUMIN (test code = 4.2 g/dL 3.5-5 5551345132) ALK PHOS (test code = 100 U/L 34-122 5732744742) ALTv (test code = 49 U/L 5-50 1742-6) AST(SGOT) (test code = 42 U/L 13-40 H 7810201422) eGFR (test code = mL/min/1.73m2 7562126774) ANTHONY (test code = ANTHONY) Association of Glomerular Filtration Rate (GFR) and Staging of Kidney Disease* + --+ --+ ------+| GFR (mL/min/1.73 m2) ?| With Kidney Damage ?| ?Without Kidney Damage+ --------+ --------+ +| ?>90 ?| ?Stage one ?| ? Normal ?+ ---+ ---+ -------+| ?60-89 ?| ?Stage two ?| ? Decreased GFR ? + --+ --+ ------+| ?30-59 ?| ?Stage three ?| ? Stage three ? + --+ --+ ------+| ?15-29 ?| ?Stage four ? | ? Stage four ?+ ---+ ---+ -------+| ?<15 (or dialysis) ? ?| ?Stage five ? | ? Stage five ?+ ---+ ---+ -------+ *Each stage assumes the associated GFR level has been in effect for at least three months. ?Stages 1 to 5, with or without kidney disease, indicate chronic kidney disease. Notes: Determination of stages one and two (with eGFR >59mL/min/1.73 m2) requires estimation of kidney damage for at least three months as defined by structural or functional abnormalities of the kidney, manifested by either:Pathological abnormalities or Markers of kidney damage (including abnormalities in the composition of the blood or urine or abnormalities in imaging tests). Lab Interpretation Abnormal (test code = 03151-0) [facility] WITH [id number] 03:44:32 Test Item Value Reference Range Interpretation Comments WBC (test code = See_Comment H [Automated 9566-2) message] The sy stem which generated this result transmitted reference range : 4.20 - 10.70 10*3/?L. The reference range was not used to interpret this result as normal/abnormal . RBC (test code = See_Comment [Automated 352-0) message] The sy stem which generated this result transmitted reference range : 4.26 - 5.52 10*6/?L. The reference range was not used to interpret this result as normal/abnormal . HGB (test code = 15.3 g/dL 12.2-16.4 718-7) HCT (test code = 50.4 % 38.4-49.3 H 4544-3) MCV (test code = 96.9 fL 81.7-95.6 H 787-2) MCH (test code = 29.4 pg 26.1-32.7 785-6) MCHC (test code = 30.4 g/dL 31.2-35 L 786-4) RDW-SD (test code = 45.8 fL 38.5-51.6 51777-7) RDW-CV (test code = 12.9 % 12.1-15.4 788-0) PLT (test code = See_Comment [Automated 777-3) message] The sy stem which generated this result transmitted reference range : 150 - 328 10*3/ ?L. The reference r sumeet was not used to interpret this result as normal/abnormal . MPV (test code = 11.4 fL 9.8-13 68148-2) NRBC/100 WBC (test See_Comment [Automat ed code = 6728575694) message] The system which generated this result transmitted reference range : 0.0 - 10.0 /100 WBCs. The refer ence range was not u sed to interpret th is result as normal/abnormal . NRBC x10^3 (test code See_Comment [Auto mated = 4302989159) message] The s ystem which generated this result transmitted reference range : 10*3/?L. The reference range was not used to interpret this result as normal/abnormal . GRAN MAT (NEUT) % 62.6 % (test code = 770-8) IMM GRAN % (test code 0.40 % = 8977319340) LYMPH % (test code = 21.4 % 736-9) MONO % (test code = 11.2 % 5905-5) EOS % (test code = 3.7 % 713-8) BASO % (test code = 0.7 % 706-2) GRAN MAT x10^3(ANC) 7.05 10*3/uL 1.99-6.95 H (test code = 1670720385) IMM GRAN x10^3 (test 0.05 10*3/uL 0-0.06 code = 3600829702) LYMPH x10^3 (test code 2.42 10*3/uL 1.09-3.23 = 731-0) MONO x10^3 (test code 1.27 10*3/uL 0.36-1.02 H = 742-7) EOS x10^3 (test code = 0.42 10*3/uL 0.06-0.53 711-2) BASO x10^3 (test code 0.08 10*3/uL 0.01-0.09 = 704-7) Lab Interpretation Abnormal (test code = 47792-5) [facility] [id number] 01:12:32 LOCATION: [id number]: 46-year-old male who presents with a head injury.COMMENT: After-hours service at 1:11 a.m.Axial imaging of the patient's brain was obtained with IV contrast. Soft tissueand bone window images were provided. A sagittal soft tissue reconstruction wasincluded. The study was obtainedwithin [facility]One or more of the following dose reductiontechniques were used: Automatedexposure control, adjustment of the mA and/or kV according to patientsize,and/or utilization of iterative reconstruction technique.DLP: 993 mGy-cmCONTRAST: None.FINDINGS:There is no evidence of acute mass effect, midline shift, hemorrhage, orherniation. The ventricles, sulci, and cisterns are within normal limits. Thereis no CT evidence of an acute infarct.The skeletonis intact. The visualized paranasal sinuses and air cells areclear. The soft tissues are unremarkable.IMPRESSION: Unremarkable noncontrast head CT examination.CBC WITH MANUAL [id number] 01:07:00 Test Item Value Reference Range Interpretation Comments WBC (test code = WBC) 12.1 10\\S\\3/uL [...] fL 9.4-12.4 NEUTROP # (test code = 6.8 10\\S\\3/uL 2.0-8.0 NE#) LYMPH # (test code = 3.0 10\\S\\3/uL 1.2-4.0 LY#) MONOCYTE # (test code = 2.1 10\\S\\3/uL 0.0-1.1 H MO#) EOSINOPH # (test code = 0.0 10\\S\\3/uL 0.0-0.7 EO#) BASOPHIL # (test code = 0.1 10\\S\\3/uL 0.0-0.3 BA#) IG # (test code = IG#) 0.09 10\\S\\3/uL 0.00-0.06 H NRBC # (test code = 0.00 10\\S\\3/uL 0.00-0.01 NRBC#) NEUTROPH % (test code = 56.5 % 35.0-73.0 NE%) LYMPH % (test code = 25.1 % 20.0-55.0 LY%) MONO % (test code = 17.0 % 2.5-10.0 H MO%) EOSINOPH % (test code = 0.3 % 0.0-5.0 EO%) BASOPHIL % (test code = 0.4 % 0.0-2.0 BA%) IG % (test code = IG%) 0.7 % 0.0-0.8 NRBC% (test code = 0.0 % 0.0-0.2 NRBC%) MAN DIFF (test code = MANUAL HMDIFF) DIFFERENTIAL SEG (test code = SEG) 54 % 42-75 BAND (test code = BAND) 0 % 0-8 LYMPH (test code = 26 % 20-51 LYMPH) MONO (test code = MONO) 18 % 3-11 H EOS (test code = EOS) 1 % <=10 BASO (test code = BASO) 0 % 0-2 RBC MORPH (test code = NORMAL NORMAL RBCMORN) PLT EST (test code = ADEQUATE ADEQUATE PLTEST) PLT MORPH (test code = NORMAL (1.5-3 um) NORMAL PLTMOR) CARDIAC [id number] 01:02:00 Test Item Value Reference Range Interpretation Comments TROPONIN I (test code = A84) 0.032 ng/mL 0.000-0.045 CKMB (test code = A49) 2.4 ng/mL <=3.6 CPK (test code = 32A) 390 IU/L 39-308 H DRUGS OF [id number] 01:01:00 Test Item Value Reference Range Interpretation [...] NEGATIVE = 64A) DOAH (test code = DOAH) *URINE DRUG SCREEN Cut-off values are as follows: Cannabinoids 50 ng/mL Cocaine 300 ng/mL Amphetamines 1000 ng/mL Phencyclidine 25 ng/mL Benzodiazepines 200 ng.mL Methadone 300 ng/mL Barbiturates 200 ng/mL Opiates 2000 ng/mL COMPREHENSIVE METABOLIC [id number] 01:00:00 Test Item Value Reference Range Interpretation [...] = 31A) 63 IU/L <=78 URINALYSIS WITH [id number] 00:55:00 Test Item Value Reference Range Interpretation [...] = /HPF NONE USPERM) PRO TIME AND [id number] 00:54:00 Test Item Value Reference Range Interpretation Comments PT (test code = 12.0 s 9.8-13.6 TT) INR (test code = 1.1 INR) INRH (test code = SUGGESTED THERAPEUTIC INRH) RANGE FOR INR: 2.5 - 3.5 For [...] Code is ANTI-XA XR CHEST 1 VIEW [id number] 00:53:14LOCATION: [id number]: 46-year-old male who presents with a fever.COMMENT: After-hours service at 12:52 a.m.A frontal chest radiograph was obtained at the bedside at 12:45 a.m. The lungs are clear and well-aerated. The cardiac silhouette, cem, andmediastinum are within normal limits. The skeleton is intact, and thesurrounding soft tissues are unremarkable. IMPRESSION:Unremarkable portable examinationof the chest.URINE AND [id number] 06:51:00 Test Item Value Reference Range Interpretation Comments UA Urobilinogen (test code = UA <=1.0 mg/dL 0.1-1.0 Urobilinogen) [facility] AND [id number] 06:51:00 Test Item Value Reference Range Interpretation Comments UA Turbidity (test code = Clear (05/25/16 12:51 UA Turbidity) AM) [facility] AND [id number] 06:51:00 Test Item Value Reference Range Interpretation Comments UA Spec Grav (test code = UA Spec Grav) 1.034 [facility] AND [id number] 06:51:00 Test Item Value Reference Range Interpretation Comments UA Color (test code = Light Yellow UA Color) *NA*(05/25/16 12:51 AM) [facility] AND [id number] 06:51:00 Test Item Value Reference Range Interpretation Comments UA Ketones (test code = UA Negative mg/dL Ketones) [facility] AND [id number] 06:51:00 Test Item Value Reference Range Interpretation Comments UA Bili (test code = Negative *NA*(05/25/16 UA Bili) 12:51 AM) [facility] AND [id number] 06:51:00 Test Item Value Reference Range Interpretation Comments UA pH (test code = UA pH) 8.0 5.0-8.0 [facility] AND [id number] 06:51:00 Test Item Value Reference Range Interpretation Comments UA Protein (test code = UA Negative mg/dL Protein) [facility] AND [id number] 06:51:00 Test Item Value Reference Range Interpretation Comments UA Glucose (test code = UA Negative mg/dL Glucose) [facility] AND [id number] 06:51:00 Test Item Value Reference Range Interpretation Comments UA Sq Epi (test code = UA Sq Occasional /LPF Epi) [facility] AND [id number] 06:51:00 Test Item Value Reference Range Interpretation Comments UA RBC (test code = UA RBC) 1 <=2 [facility] AND [id number] 06:51:00 Test Item Value Reference Range Interpretation Comments UA Blood (test code = Negative (05/25/16 12:51 UA Blood) AM) [facility] AND [id number] 06:51:00 Test Item Value Reference Range Interpretation Comments UA Nitrite (test code Negative (05/25/16 12:51 = UA Nitrite) AM) [facility] AND [id number] 06:51:00 Test Item Value Reference Range Interpretation Comments UA Leuk Est (test Negative (05/25/16 12:51 code = UA Leuk Est) AM) [facility] HospitalCARWizelineAC [id number] 22:40:00 Test Item Value Reference Range Interpretation Comments CK MB Index (test code = CK MB Index) 0.9 <=2.5 [facility] [id number] 22:40:00 Test Item Value Reference Range Interpretation Comments CK MB (test code = CK MB) 1.6 0.5-3.6 [facility] [id number] 22:40:00 Test Item Value Reference Range Interpretation Comments Total CK (test code = Total CK) 183 12-191 [facility] [id number] 22:40:00 Test Item Value Reference Range Interpretation Comments Troponin-I (test code = Troponin-I) no gt <=0.40 [id number] 22:40:00 Test Item Value Reference Range Interpretation Comments AGAP (test code = AGAP) 11.7 10.0-20.0 [facility]vineBbxmomcBYGAXOEWYVLM7614-24-46 22:40:00 Test Item Value Reference Range Interpretation Comments eGFR (test code = eGFR) 97 [facility]vineLppcmciAACJEMQANCWE1219-18-02 22:40:00 Test Item Value Reference Range Interpretation Comments CO2 (test code = CO2) 27 24-32 [id number] 22:40:00 Test Item Value Reference Range Interpretation Comments Calcium Lvl (test code = Calcium Lvl) 9.0 8.5-10.5 [facility] Surgery[id number] 22:40:00 Test Item Value Reference Range Interpretation Comments Glucose Lvl (test code = Glucose Lvl) 110 70-99 [facility]vineMgdibasMDAZSSQGTEUG6256-95-48 22:40:00 Test Item Value Reference Range Interpretation Comments BUN (test code = BUN) 15 7-22 [id number] 22:40:00 Test Item Value Reference Range Interpretation Comments Potassium Lvl (test code = Potassium 3.7 3.5-5.1 Lvl) [facility] HospitalCvrmglfPBQZQFZSLZMK8637-28-13 22:40:00 Test Item Value Reference Range Interpretation Comments Sodium Lvl (test code = Sodium Lvl) 139 135-145 [facility] Hospi[id number] 22:40:00 Test Item Value Reference Range Interpretation Comments Chloride Lvl (test code = Chloride Lvl) 104 95-109 [facility] Hos[id number] 22:40:00 Test Item Value Reference Range Interpretation Comments Creatinine Lvl (test code = Creatinine 0.94 0.50-1.40 Lvl) [facility] H[id number] 22:40:00 Test Item Value Reference Range Interpretation Comments Segs-Bands # (test code = Segs-Bands #) 10.7 1.5-8.1 [facility] Hospit[id number] 22:40:00 Test Item Value Reference Range Interpretation Comments Basophils (test code = Basophils) 0.9 <=1.0 [facility] Hospit[id number] 22:40:00 Test Item Value Reference Range Interpretation Comments Eosinophils # (test code = Eosinophils 0.2 <=0.5 #) [facility] Hospit[id number] 22:40:00 Test Item Value Reference Range Interpretation Comments Lymphocytes # (test code = Lymphocytes 2.1 1.0-5.5 #) [facility] HospitalUpoxxlpQSMITGKZZB6394-08-34 22:40:00 Test Item Value Reference Range Interpretation Comments Monocytes # (test code = Monocytes #) 1.2 <=0.8 [facility] HospitalIywhyzgNWGMHCOBRN2588-02-90 22:40:00 Test Item Value Reference Range Interpretation Comments Basophils # (test code = Basophils #) 0.1 <=0.2 [facility] HospitalTuvuhrtMSWMFXMYZB5477-09-02 22:40:00 Test Item Value Reference Range Interpretation Comments Segs (test code = Segs) 74.6 45.0-75.0 [facility] HospitalIninahpIIWUZBREUX4581-80-45 22:40:00 Test Item Value Reference Range Interpretation Comments Lymphocytes (test code = Lymphocytes) 14.6 20.0-40.0 [facility]WuuhhdxEUHYJKTPFW9575-28-45 22:40:00 Test Item Value Reference Range Interpretation Comments Monocytes (test code = Monocytes) 8.4 2.0-12.0 [facility] HospitalZefijtfMWMMDICTLF5398-25-22 22:40:00 Test Item Value Reference Range Interpretation Comments Eosinophils (test code = Eosinophils) 1.5 <=4.0 [facility] HospitalQyacslgUNCEHFPBXY7458-58-44 22:40:00 Test Item Value Reference Range Interpretation Comments MCH (test code = MCH) 31.8 pg 27.0-31.0 [facility] Hospit[id number] 22:40:00 Test Item Value Reference Range Interpretation Comments MCV (test code = MCV) 93.9 80.0-94.0 [facility] HospitalXriguqlJFPBDMWVRQ2617-80-59 22:40:00 Test Item Value Reference Range Interpretation Comments MCHC (test code = MCHC) 33.9 32.0-36.0 [facility] HospitalEzlldaqSMTIDCHOLV6901-78-22 22:40:00 Test Item Value Reference Range Interpretation Comments Hct (test code = Hct) 42.7 42.0-54.0 [facility] HospitalEjeenfbOEDMJVBIZM5595-00-50 22:40:00 Test Item Value Reference Range Interpretation Comments MPV (test code = MPV) 9.7 7.4-10.4 [facility] HospitalBidyeryYTMJWBDRUL8663-05-96 22:40:00 Test Item Value Reference Range Interpretation Comments Platelet (test code = Platelet) 224 133-450 [facility] HospitalExzjmauNMSNXDKUDF7823-50-04 22:40:00 Test Item Value Reference Range Interpretation Comments RDW (test code = RDW) 12.9 11.5-14.5 [facility] HospitalLccdkunYMKIQTVDSU5834-86-42 22:40:00 Test Item Value Reference Range Interpretation Comments WBC (test code = WBC) 14.3 3.7-10.4 [facility] HospitalDlmllerVCYPCZPNVA1372-42-65 22:40:00 Test Item Value Reference Range Interpretation Comments RBC (test code = RBC) 4.55 4.70-6.10 [facility] HospitalMvuiuxkAIJHVBCHQQ0188-71-68 22:40:00 Test Item Value Reference Range Interpretation Comments Hgb (test code = Hgb) 14.5 14.0-18.0 [facility]2016-09-17 14:13:00 Test Item Value Reference Range Interpretation Comments eGFR (test code = eGFR) 108 [facility]2016-09-17 14:13:00 Test Item Value Reference Range Interpretation Comments Glucose Lvl (test code = Glucose Lvl) 95 70-99 [place] [id number] 14:13:00 Test Item Value Reference Range Interpretation Comments BUN (test code = BUN) 13 7-22 [facility]2016-09-17 14:13:00 Test Item Value Reference Range Interpretation Comments Chloride Lvl (test code = Chloride Lvl) 104 95-109 [facility]2016-09-17 14:13:00 Test Item Value Reference Range Interpretation Comments Calcium Lvl (test code = Calcium Lvl) 8.4 8.5-10.5 [facility]2016-09-17 14:13:00 Test Item Value Reference Range Interpretation Comments CO2 (test code = CO2) 28 24-32 [facility]2016-09-17 14:13:00 Test Item Value Reference Range Interpretation Comments Creatinine Lvl (test code = Creatinine 0.80 0.50-1.40 Lvl) [facility]2016-09-17 14:13:00 Test Item Value Reference Range Interpretation Comments Potassium Lvl (test code = Potassium 3.7 3.5-5.1 Lvl) [facility]2016-09-17 14:13:00 Test Item Value Reference Range Interpretation Comments Sodium Lvl (test code = Sodium Lvl) 139 135-145 [facility]2016-09-17 14:13:00 Test Item Value Reference Range Interpretation Comments AGAP (test code = AGAP) 10.7 10.0-20.0 [facility] Ho[id number] 14:13:00 Test Item Value Reference Range Interpretation Comments WBC (test code = WBC) 7.2 3.7-10.4 [facility] Hospit[id number] 14:13:00 Test Item Value Reference Range Interpretation Comments RBC (test code = RBC) 4.67 4.70-6.10 [place] [id number] 14:13:00 Test Item Value Reference Range Interpretation Comments Hgb (test code = Hgb) 14.6 14.0-18.0 [facility] HospitalSpiznbqZZFNMLQAEB4523-93-44 14:13:00 Test Item Value Reference Range Interpretation Comments MCV (test code = MCV) 92.0 80.0-94.0 [facility] HospitalEtuhedqQFUKLTFPTL8578-24-00 14:13:00 Test Item Value Reference Range Interpretation Comments Hct (test code = Hct) 43.0 42.0-54.0 [facility] HospitalNyufjirFNKDWDYOJD5002-30-64 14:13:00 Test Item Value Reference Range Interpretation Comments MCH (test code = MCH) 31.2 pg 27.0-31.0 [facility] Hospit[id number] 14:13:00 Test Item Value Reference Range Interpretation Comments MCHC (test code = MCHC) 33.9 32.0-36.0 [facility] HospitalNfovxmpDSSCUQHUBI0703-57-32 14:13:00 Test Item Value Reference Range Interpretation Comments RDW (test code = RDW) 13.4 11.5-14.5 [facility] HospitalItkcontLNZKASYDKT5191-16-63 14:13:00 Test Item Value Reference Range Interpretation Comments Platelet (test code = Platelet) 168 133-450 [facility] HospitalXqstivcSDGWATEVKT0079-93-01 14:13:00 Test Item Value Reference Range Interpretation Comments MPV (test code = MPV) 10.0 7.4-10.4 [facility] HospitalLmqsbmuFEQCMOYELO6072-51-11 14:13:00 Test Item Value Reference Range Interpretation Comments Eosinophils (test code = Eosinophils) 4.8 <=4.0 [facility] HospitalOrmmychTRPQXKFTOH4980-73-74 14:13:00 Test Item Value Reference Range Interpretation Comments Lymphocytes (test code = Lymphocytes) 35.7 20.0-40.0 [facility] HospitalJzdweoiIZZATVBKKQ8742-39-74 14:13:00 Test Item Value Reference Range Interpretation Comments Monocytes (test code = Monocytes) 9.1 2.0-12.0 [facility] HospitalLxehgcrOCKDKYNXGO2007-55-78 14:13:00 Test Item Value Reference Range Interpretation Comments Segs (test code = Segs) 49.2 45.0-75.0 [facility] HospitalJeivatnOBMOQZBKNR8712-31-99 14:13:00 Test Item Value Reference Range Interpretation Comments Monocytes # (test code = Monocytes #) 0.7 <=0.8 [facility] HospitalPluptkhYPUTJSEXMP3633-19-57 14:13:00 Test Item Value Reference Range Interpretation Comments Eosinophils # (test code = Eosinophils 0.3 <=0.5 #) [facility]PsgmctkIUNJCGTMAG9917-42-39 14:13:00 Test Item Value Reference Range Interpretation Comments Basophils # (test code = Basophils #) 0.1 <=0.2 [facility] DcnkgjmYOBRCMMOTP4606-12-91 14:13:00 Test Item Value Reference Range Interpretation Comments Lymphocytes # (test code = Lymphocytes 2.6 1.0-5.5 #) [facility] CenterMuejcbmRIVKWQYRUQ4448-43-65 14:13:00 Test Item Value Reference Range Interpretation Comments Basophils (test code = Basophils) 1.2 <=1.0 [facility] JostssxRVAFUSTAYY7685-26-65 14:13:00 Test Item Value Reference Range Interpretation Comments Segs-Bands # (test code = Segs-Bands #) 3.5 1.5-8.1 [facility] CenterPntkqrsIYVCNXNWHX7351-11-13 14:13:00 Test Item Value Reference Range Interpretation Comments Ethanol Lvl (test code = Ethanol Lvl) no gt [facility] CenterSbktawkBCUVJGARDH1588-28-61 14:13:00 Test Item Value Reference Range Interpretation Comments Etoh (%) (test code = Etoh (%)) no gt [facility] CenterannDRUG [id number] 03:50:00 Test Item Value Reference Range Interpretation Comments UDS Note (test code = See Note (01/19/16 10:50 UDS Note) PM) [facility] CenterannDR[facility] [id number] 03:50:00 Test Item Value Reference Range Interpretation Comments U Phencyc Scr (test Negative *NA*(01/19/16 code = U Phencyc Scr) 10:50 PM) [facility] CenterannDR[facility] [id number] 03:50:00 Test Item Value Reference Range Interpretation Comments U Cocaine Scr (test Negative *NA*(01/19/16 code = U Cocaine Scr) 10:50 PM) [facility]annDR[facility] [id number] 03:50:00 Test Item Value Reference Range Interpretation Comments U Benzodia Scr (test Positive *ABN*(01/19/16 code = U Benzodia Scr) 10:50 PM) [facility]ann[facility] [id number] 03:50:00 Test Item Value Reference Range Interpretation Comments U Shi Scr (test code Negative *NA*(01/19/16 = U Shi Scr) 10:50 PM) [facility] [id number] 03:50:00 Test Item Value Reference Range Interpretation Comments U Amph Scr (test code Negative *NA*(01/19/16 = U Amph Scr) 10:50 PM) [facility] [id number] 03:50:00 Test Item Value Reference Range Interpretation Comments U Opiate Scr (test Positive *ABN*(01/19/16 code = U Opiate Scr) 10:50 PM) [facility] [id number] 03:50:00 Test Item Value Reference Range Interpretation Comments U Cannab Scr (test Negative *NA*(01/19/16 code = U Cannab Scr) 10:50 PM) [facility] [id number] 03:50:00 Test Item Value Reference Range Interpretation Comments UA Urobilinogen (test code = UA <=1.0 mg/dL 0.1-1.0 Urobilinogen) [facility] [id number] 03:50:00 Test Item Value Reference Range Interpretation Comments UA Spec Grav (test >=1.050 *ABN*(01/19/16 code = UA Spec Grav) 10:50 PM) [facility] [id number] 03:50:00 Test Item Value Reference Range Interpretation Comments UA WBC (test code = UA WBC) 1 <=5 [facility] [id number] 03:50:00 Test Item Value Reference Range Interpretation Comments Micro? (test code = Performed *NA*(01/19/16 Micro?) 10:50 PM) [facility] [id number] 03:50:00 Test Item Value Reference Range Interpretation Comments UA Mucus (test code = UA Mucus) Moderate /LPF [facility] [id number] 03:50:00 Test Item Value Reference Range Interpretation Comments UA CaOx Cheryl (test code = UA CaOx Few /HPF Cheryl) [facility] [id number] 03:50:00 Test Item Value Reference Range Interpretation Comments UA Leuk Est (test Negative (01/19/16 10:50 code = UA Leuk Est) PM) [facility] [id number] 03:50:00 Test Item Value Reference Range Interpretation Comments UA Nitrite (test code Negative (01/19/16 10:50 = UA Nitrite) PM) [facility] AND [id number] 03:50:00 Test Item Value Reference Range Interpretation Comments UA Ketones (test code = UA Negative mg/dL Ketones) [facility] AND [id number] 03:50:00 Test Item Value Reference Range Interpretation Comments UA Bili (test code = Negative *NA*(01/19/16 UA Bili) 10:50 PM) [facility] AND [id number] 03:50:00 Test Item Value Reference Range Interpretation Comments UA Blood (test code = Negative (01/19/16 10:50 UA Blood) PM) [facility] AND [id number] 03:50:00 Test Item Value Reference Range Interpretation Comments UA Glucose (test code = UA Negative mg/dL Glucose) [facility] AND [id number] 03:50:00 Test Item Value Reference Range Interpretation Comments UA Protein (test code = UA Protein) 50 mg/dL [facility] AND [id number] 03:50:00 Test Item Value Reference Range Interpretation Comments UA Color (test code = Yellow *NA*(01/19/16 UA Color) 10:50 PM) [facility] AND [id number] 03:50:00 Test Item Value Reference Range Interpretation Comments UA Turbidity (test code = Clear (01/19/16 10:50 UA Turbidity) PM) [facility] AND [id number] 03:50:00 Test Item Value Reference Range Interpretation Comments UA pH (test code = UA pH) 6.0 5.0-8.0 [facility]ss[facility]PHOPKO1798-[facility] 03:35:00 Test Item Value Reference Range Interpretation Comments CHD Risk (test code = CHD Risk) 5.46 4.00-7.30 [facility] HospitalIdrjlftRTAVRE3929-63-55 03:35:00 Test Item Value Reference Range Interpretation Comments VLDL (test code = VLDL) 51 [facility]GifqsyfNJFKOL1345-04-90 03:35:00 Test Item Value Reference Range Interpretation Comments LDL (Calculated) (test code = LDL 114 (Calculated)) [facility] HospitalRthuhnbRURFAE7000-66-55 03:35:00 Test Item Value Reference Range Interpretation Comments HDL (test code = HDL) 37 [facility] CenterMqfwwbiDYIPYT5691-65-71 03:35:00 Test Item Value Reference Range Interpretation Comments Trig (test code = Trig) 254 [facility] CenterMokpnpeDELIDP7546-06-58 03:35:00 Test Item Value Reference Range Interpretation Comments Chol (test code = Chol) [facility] BPWGYOBFK3287-07-15 03:35:00 Test Item Value Reference Range Interpretation Comments Hgb A1C (test code = Hgb A1C) 6.0 [facility] [employer]annCARDIAC [id number] 23:40:00 Test Item Value Reference Range Interpretation Comments Total CK (test code = Total CK) 144 12-191 [facility] SCVNGRAC [id number] 23:40:00 Test Item Value Reference Range Interpretation Comments Troponin-I (test code = Troponin-I) no gt <=0.40 [facility] [employer] GroupannQuiskAC [id number] 23:40:00 Test Item Value Reference Range Interpretation Comments CK MB (test code = CK MB) 1.8 0.5-3.6 [facility] [employer] GroupannQuiskAC [id number] 23:40:00 Test Item Value Reference Range Interpretation Comments CK MB Index (test code = CK MB Index) 1.2 <=2.5 [facility] [employer] [id number] 23:40:00 Test Item Value Reference Range Interpretation Comments Bili Direct (test code = Bili Direct) 0.1 <=0.3 [facility] [employer] [id number] 23:40:00 Test Item Value Reference Range Interpretation Comments A/G Ratio (test code = A/G Ratio) 1.0 0.7-1.6 [facility] [employer]annSegmint [id number] 23:40:00 Test Item Value Reference Range Interpretation Comments Globulin (test code = Globulin) 3.7 2.7-4.2 [facility] [employer] GroupannCHEM [id number] 23:40:00 Test Item Value Reference Range Interpretation Comments Bili Indirect (test code = Bili 0.0 <=1.0 Indirect) [facility] [employer] [id number] 23:40:00 Test Item Value Reference Range Interpretation Comments Total Protein (test code = Total 7.3 6.4-8.4 Protein) [facility] [employer] [id number] 23:40:00 Test Item Value Reference Range Interpretation Comments Albumin Lvl (test code = Albumin Lvl) 3.6 3.5-5.0 [facility]2016-09-16 23:40:00 Test Item Value Reference Range Interpretation Comments ALT (test code = ALT) 72 <=65 [place] [id number] 23:40:00 Test Item Value Reference Range Interpretation Comments Bili Total (test code = Bili Total) 0.1 0.2-1.3 [place] [id number] 23:40:00 Test Item Value Reference Range Interpretation Comments Alk Phos (test code = Alk Phos) 103 39-136 [facility]2016-09-16 23:40:00 Test Item Value Reference Range Interpretation Comments AST (test code = AST) 39 <=37 [facility]2016-09-16 23:40:00 Test Item Value Reference Range Interpretation Comments Phosphorus (test code = Phosphorus) 3.8 2.5-4.5 [facility]2016-09-16 23:40:00 Test Item Value Reference Range Interpretation Comments Magnesium Lvl (test code = Magnesium 1.8 1.8-2.4 Lvl) [facility]DdhoeqbIMNELLPEIGKH0422-54-83 23:40:00 Test Item Value Reference Range Interpretation Comments AGAP (test code = AGAP) 12.0 10.0-20.0 [facility] HospitalAvfjifcQWUMBWKVSNHI4492-20-21 23:40:00 Test Item Value Reference Range Interpretation Comments Potassium Lvl (test code = Potassium 4.0 3.5-5.1 Lvl) [facility] HospitalVrtfcdsZYSJOKLYXAAB2586-25-34 23:40:00 Test Item Value Reference Range Interpretation Comments eGFR (test code = eGFR) 87 [facility]wiyyzpGVTBMVXNQWNZ4426-22-16 23:40:00 Test Item Value Reference Range Interpretation Comments CO2 (test code = CO2) 29 24-32 [facility]BewtortGAMMTIDIMSYT7539-96-92 23:40:00 Test Item Value Reference Range Interpretation Comments Chloride Lvl (test code = Chloride Lvl) 104 95-109 [facility]RpxutavNAEEJFQNBZDA3015-37-10 23:40:00 Test Item Value Reference Range Interpretation Comments Calcium Lvl (test code = Calcium Lvl) 8.8 8.5-10.5 [facility]LdfqregKKDAWGLLIHLK1124-89-52 23:40:00 Test Item Value Reference Range Interpretation Comments BUN (test code = BUN) 13 7-22 [facility]CpqrmmdNVYAYZSFDCBZ7174-89-37 23:40:00 Test Item Value Reference Range Interpretation Comments Glucose Lvl (test code = Glucose Lvl) 101 70-99 [facility]OzhmzsqMPDBMLESWFCZ5565-38-13 23:40:00 Test Item Value Reference Range Interpretation Comments Sodium Lvl (test code = Sodium Lvl) 141 135-145 [facility]OihtgqzPTRCECOPISTC7871-63-40 23:40:00 Test Item Value Reference Range Interpretation Comments Creatinine Lvl (test code = Creatinine 1.03 0.50-1.40 Lvl) [facility]ZhpvmcwWHXUFJCYEQ7632-97-23 23:40:00 Test Item Value Reference Range Interpretation Comments Lymphocytes (test code = Lymphocytes) 34.9 20.0-40.0 [facility] HospitalYbpqobfYQUTRGBSZE4222-74-45 23:40:00 Test Item Value Reference Range Interpretation Comments Monocytes (test code = Monocytes) 14.1 2.0-12.0 [facility] HospitalVwnbsjzKDDIJTDXAZ2743-61-41 23:40:00 Test Item Value Reference Range Interpretation Comments Eosinophils (test code = Eosinophils) 5.1 <=4.0 [facility] HospitalWnnijsrWQCLSZCUMM8430-52-05 23:40:00 Test Item Value Reference Range Interpretation Comments Basophils (test code = Basophils) 1.3 <=1.0 [facility] HospitalZuyucsmZSWXNEOUHP7777-56-06 23:40:00 Test Item Value Reference Range Interpretation Comments Segs-Bands # (test code = Segs-Bands #) 3.6 1.5-8.1 [facility] HospitalTgtgrdzIMRMPOEYSJ1762-06-64 23:40:00 Test Item Value Reference Range Interpretation Comments Monocytes # (test code = Monocytes #) 1.1 <=0.8 [facility] HospitalToyoqrvPJNIWTIXFG8165-47-95 23:40:00 Test Item Value Reference Range Interpretation Comments Lymphocytes # (test code = Lymphocytes 2.8 1.0-5.5 #) [facility] HospitalZypyexpDPXGFFVPQT7161-82-58 23:40:00 Test Item Value Reference Range Interpretation Comments Basophils # (test code = Basophils #) 0.1 <=0.2 [facility] HospitalBlpynkvGBMQNQEXDT3128-36-72 23:40:00 Test Item Value Reference Range Interpretation Comments Eosinophils # (test code = Eosinophils 0.4 <=0.5 #) [facility] HospitalHjntzffSWCPYMCUYL2569-36-25 23:40:00 Test Item Value Reference Range Interpretation Comments Segs (test code = Segs) 44.6 45.0-75.0 [facility] HospitalAvwwzytGGZENBMAXR5919-50-19 23:40:00 Test Item Value Reference Range Interpretation Comments Hct (test code = Hct) 42.2 42.0-54.0 [facility] HospitalSxjexldJROWVZSNVL5634-21-00 23:40:00 Test Item Value Reference Range Interpretation Comments Hgb (test code = Hgb) 14.2 14.0-18.0 [facility] HospitalBufolspMBATUKQRKE6102-32-03 23:40:00 Test Item Value Reference Range Interpretation Comments RBC (test code = RBC) 4.58 4.70-6.10 [facility] HospitalOmsfyvrUBIEZXFIGK9382-77-47 23:40:00 Test Item Value Reference Range Interpretation Comments WBC (test code = WBC) 8.1 3.7-10.4 [facility] HospitalZimgdmnKHNSBAOBYL0446-07-52 23:40:00 Test Item Value Reference Range Interpretation Comments MCV (test code = MCV) 92.2 80.0-94.0 [facility] HospitalBortammFHWHTWVNVR9404-62-13 23:40:00 Test Item Value Reference Range Interpretation Comments MCH (test code = MCH) 31.0 pg 27.0-31.0 [facility] HospitalAgykpnhWUVXFJRFOK8918-74-80 23:40:00 Test Item Value Reference Range Interpretation Comments MCHC (test code = MCHC) 33.6 32.0-36.0 [facility] HospitalCnnpqpxSWMMPFEGUQ4725-28-24 23:40:00 Test Item Value Reference Range Interpretation Comments Platelet (test code = Platelet) 159 133-450 [facility] HospitalToxgbrkMGYZPEDZLI6743-92-55 23:40:00 Test Item Value Reference Range Interpretation Comments RDW (test code = RDW) 13.8 11.5-14.5 [facility] HospitalKwgybypDGZWVSRPED8643-01-02 23:40:00 Test Item Value Reference Range Interpretation Comments MPV (test code = MPV) 9.5 7.4-10.4 [facility] HospitalQpxhffcPCNYZTYZSJ1636-10-80 23:40:00 Test Item Value Reference Range Interpretation Comments INR (test code = INR) 0.87 0.85-1.17 [facility] HospitalCzzzhcgAWKXGGLUTK2814-40-31 23:40:00 Test Item Value Reference Range Interpretation Comments PT (test code = PT) 12.1 s 12.0-14.7 [facility] HospitalKaghuieOLONBLXMTN2228-62-11 23:40:00 Test Item Value Reference Range Interpretation Comments PTT (test code = PTT) 24.3 s 22.9-35.8 [facility]PsmryhqKJMYNYGJKN7977-99-75 16:44:00 Test Item Value Reference Range Interpretation Comments Etoh (%) (test code = Etoh (%)) no gt [place] [id number] 16:44:00 Test Item Value Reference Range Interpretation Comments Ethanol Lvl (test code = Ethanol Lvl) no gt [facility]2015-11-26 16:21:00 Test Item Value Reference Range Interpretation Comments Phosphorus (test code = Phosphorus) 1.6 2.5-4.5 [facility]2015-11-26 16:21:00 Test Item Value Reference Range Interpretation Comments Magnesium Lvl (test code = Magnesium 2.0 1.8-2.4 Lvl) [facility]2015-11-26 16:21:00 Test Item Value Reference Range Interpretation Comments Globulin (test code = Globulin) 4.3 2.0-4.0 [facility]2015-11-26 16:21:00 Test Item Value Reference Range Interpretation Comments A/G Ratio (test code = A/G Ratio) 0.9 0.7-1.6 [facility]2015-11-26 16:21:00 Test Item Value Reference Range Interpretation Comments Alk Phos (test code = Alk Phos) 102 39-136 [facility]2015-11-26 16:21:00 Test Item Value Reference Range Interpretation Comments Bili Total (test code = Bili Total) 0.2 0.2-1.3 [facility]2015-11-26 16:21:00 Test Item Value Reference Range Interpretation Comments AST (test code = AST) 36 <=37 [facility]2015-11-26 16:21:00 Test Item Value Reference Range Interpretation Comments Total Protein (test code = Total 8.2 6.4-8.4 Protein) [facility]2015-11-26 16:21:00 Test Item Value Reference Range Interpretation Comments Albumin Lvl (test code = Albumin Lvl) 3.9 3.5-5.0 [facility]2015-11-26 16:21:00 Test Item Value Reference Range Interpretation Comments ALT (test code = ALT) 61 <=65 [facility]2015-11-26 16:21:00 Test Item Value Reference Range Interpretation Comments Bili Direct (test code = Bili Direct) 0.0 <=0.3 [facility]2015-11-26 16:21:00 Test Item Value Reference Range Interpretation Comments Bili Indirect (test code = Bili 0.2 <=1.0 Indirect) [facility]2015-11-26 16:21:00 Test Item Value Reference Range Interpretation Comments eGFR (test code = eGFR) 89 [facility]2015-11-26 16:21:00 Test Item Value Reference Range Interpretation Comments Calcium Lvl (test code = Calcium Lvl) 9.3 8.5-10.5 [facility]2015-11-26 16:21:00 Test Item Value Reference Range Interpretation Comments BUN (test code = BUN) 9 7-22 [facility]2015-11-26 16:21:00 Test Item Value Reference Range Interpretation Comments Glucose Lvl (test code = Glucose Lvl) 106 70-99 [facility]2015-11-26 16:21:00 Test Item Value Reference Range Interpretation Comments Potassium Lvl (test code = Potassium 4.5 3.5-5.1 Lvl) [facility]2015-11-26 16:21:00 Test Item Value Reference Range Interpretation Comments Sodium Lvl (test code = Sodium Lvl) 136 135-145 [facility]2015-11-26 16:21:00 Test Item Value Reference Range Interpretation Comments Creatinine Lvl (test code = Creatinine 1.02 0.50-1.40 Lvl) [facility]2015-11-26 16:21:00 Test Item Value Reference Range Interpretation Comments CO2 (test code = CO2) 26 24-32 [facility]2015-11-26 16:21:00 Test Item Value Reference Range Interpretation Comments Chloride Lvl (test code = Chloride Lvl) 101 95-109 [facility] [id number] 16:21:00 Test Item Value Reference Range Interpretation Comments AGAP (test code = AGAP) 13.5 10.0-20.0 [facility] [id number] 16:21:00 Test Item Value Reference Range Interpretation Comments U Phencyc Scr (test Negative *NA*(03/30/15 code = U Phencyc Scr) 10:21 AM) [facility] [id number] 16:21:00 Test Item Value Reference Range Interpretation Comments UDS Note (test code = See Note *NA*(03/30/15 UDS Note) 10:21 AM) [facility] [id number] 16:21:00 Test Item Value Reference Range Interpretation Comments U Cocaine Scr (test Negative *NA*(03/30/15 code = U Cocaine Scr) 10:21 AM) [facility] [id number] 16:21:00 Test Item Value Reference Range Interpretation Comments U Cannab Scr (test Negative *NA*(03/30/15 code = U Cannab Scr) 10:21 AM) [facility] [id number] 16:21:00 Test Item Value Reference Range Interpretation Comments U Benzodia Scr (test Negative *NA*(03/30/15 code = U Benzodia Scr) 10:21 AM) [facility] [id number] 16:21:00 Test Item Value Reference Range Interpretation Comments U Shi Scr (test code Negative *NA*(03/30/15 = U Shi Scr) 10:21 AM) [facility] [id number] 16:21:00 Test Item Value Reference Range Interpretation Comments U Opiate Scr (test Negative *NA*(03/30/15 code = U Opiate Scr) 10:21 AM) [facility] [id number] 16:21:00 Test Item Value Reference Range Interpretation Comments U Amph Scr (test code Negative *NA*(03/30/15 = U Amph Scr) 10:21 AM) [facility]iyUFGNWMCTWB8331-36-49 16:21:00 Test Item Value Reference Range Interpretation Comments PT (test code = PT) 11.9 s 12.0-14.7 [facility] HospitalFwytfbtYIWRJQHSRS4587-74-06 16:21:00 Test Item Value Reference Range Interpretation Comments INR (test code = INR) 0.85 0.85-1.17 [facility] HospitalHyjpklpWTXLDRZJIA2657-39-61 16:21:00 Test Item Value Reference Range Interpretation Comments PTT (test code = PTT) 22.7 s 22.9-35.8 [facility] HospitalYbnubivLZVGPYXCGF4436-55-56 16:21:00 Test Item Value Reference Range Interpretation Comments Valproic Acid Lvl (test code = Valproic 4 50-100 Acid Lvl) [facility] AND [id number] 16:21:00 Test Item Value Reference Range Interpretation Comments UA RBC (test code = UA None Seen (03/30/15 <=2 RBC) 10:21 AM) [facility] AND [id number] 16:21:00 Test Item Value Reference Range Interpretation Comments UA Sq Epi (test code = UA Sq Epi) Rare /LPF [facility] AND [id number] 16:21:00 Test Item Value Reference Range Interpretation Comments UA WBC (test code = UA WBC) 0-2 /HPF [facility] AND [id number] 16:21:00 Test Item Value Reference Range Interpretation Comments UA Blood (test code = Negative (03/30/15 10:21 UA Blood) AM) [facility] AND [id number] 16:21:00 Test Item Value Reference Range Interpretation Comments UA Leuk Est (test Negative (03/30/15 10:21 code = UA Leuk Est) AM) [facility] AND [id number] 16:21:00 Test Item Value Reference Range Interpretation Comments UA Urobilinogen (test code = UA 0.2 0.1-1.0 Urobilinogen) [facility] AND [id number] 16:21:00 Test Item Value Reference Range Interpretation Comments UA Bili (test code = Negative *NA*(03/30/15 UA Bili) 10:21 AM) [facility] AND [id number] 16:21:00 Test Item Value Reference Range Interpretation Comments UA Ketones (test code = UA Negative mg/dL Ketones) [facility] AND [id number] 16:21:00 Test Item Value Reference Range Interpretation Comments UA Glucose (test code = UA Negative mg/dL Glucose) [facility] AND [id number] 16:21:00 Test Item Value Reference Range Interpretation Comments UA Protein (test code = UA Negative mg/dL Protein) [facility] [id number] 16:21:00 Test Item Value Reference Range Interpretation Comments UA pH (test code = UA pH) 7.5 1 5.0-8.0 [facility] AND [id number] 16:21:00 Test Item Value Reference Range Interpretation Comments UA Spec Grav (test code = UA Spec 1.015 1 Grav) [facility] AND [id number] 16:21:00 Test Item Value Reference Range Interpretation Comments UA Color (test code = Yellow *NA*(03/30/15 UA Color) 10:21 AM) [facility] AND [id number] 16:21:00 Test Item Value Reference Range Interpretation Comments UA Turbidity (test code = Clear (03/30/15 UA Turbidity) 10:21 AM) [facility] AND [id number] 16:21:00 Test Item Value Reference Range Interpretation Comments UA Nitrite (test code Negative (03/30/15 = UA Nitrite) 10:21 AM) [facility]zkbmwVKDBLNYOKW4024-89-13 09:44:00 Test Item Value Reference Range Interpretation Comments Phenytoin Total (test code = Phenytoin 14.4 10.0-20.0 Total) [facility] [id number] 09:44:00 Test Item Value Reference Range Interpretation Comments Phenytoin Free (test code = Phenytoin 1.31 1.00-2.00 Free) [facility] CenterannCARDIAC [id number] 09:00:00 Test Item Value Reference Range Interpretation Comments Total CK (test code = Total CK) 44 12-191 [facility]annCHEM [id number] 09:00:00 Test Item Value Reference Range Interpretation Comments Magnesium Lvl (test code = Magnesium 2.0 1.8-2.4 Lvl) [facility]annCHE[facility] [id number] 09:00:00 Test Item Value Reference Range Interpretation Comments Phosphorus (test code = Phosphorus) 2.7 2.5-4.5 [facility] [id number] 09:00:00 Test Item Value Reference Range Interpretation Comments Creatinine Lvl (test code = Creatinine 0.7 0.5-1.4 Lvl) [facility]2015-10-13 09:00:00 Test Item Value Reference Range Interpretation Comments Sodium Lvl (test code = Sodium Lvl) 142 135-145 [facility]2015-10-13 09:00:00 Test Item Value Reference Range Interpretation Comments Potassium Lvl (test code = Potassium 4.1 3.5-5.1 Lvl) [facility]2015-10-13 09:00:00 Test Item Value Reference Range Interpretation Comments Calcium Lvl (test code = Calcium Lvl) 8.2 8.5-10.5 [facility]2015-10-13 09:00:00 Test Item Value Reference Range Interpretation Comments Chloride Lvl (test code = Chloride Lvl) 108 95-109 [facility]2015-10-13 09:00:00 Test Item Value Reference Range Interpretation Comments Glucose Lvl (test code = Glucose Lvl) 103 70-99 [facility]2015-10-13 09:00:00 Test Item Value Reference Range Interpretation Comments B/C Ratio (test code = B/C Ratio) 13 6-25 [place] [id number] 09:00:00 Test Item Value Reference Range Interpretation Comments AGAP (test code = AGAP) 9.1 10.0-20.0 [facility]2015-10-13 09:00:00 Test Item Value Reference Range Interpretation Comments BUN (test code = BUN) 9 7-22 [facility]2015-10-13 09:00:00 Test Item Value Reference Range Interpretation Comments CO2 (test code = CO2) 29 24-32 [place] [id number] 09:00:00 Test Item Value Reference Range Interpretation Comments Total Protein (test code = Total 5.8 6.4-8.4 Protein) [facility]2015-10-13 09:00:00 Test Item Value Reference Range Interpretation Comments ALT (test code = ALT) 28 <=65 [facility]2015-10-13 09:00:00 Test Item Value Reference Range Interpretation Comments A/G Ratio (test code = A/G Ratio) 0.9 0.7-1.6 [facility]2015-10-13 09:00:00 Test Item Value Reference Range Interpretation Comments Albumin Lvl (test code = Albumin Lvl) 2.7 3.5-5.0 [place] [id number] 09:00:00 Test Item Value Reference Range Interpretation Comments Globulin (test code = Globulin) 3.1 2.0-4.0 [facility]2015-10-13 09:00:00 Test Item Value Reference Range Interpretation Comments Bili Total (test code = Bili Total) 0.2 0.2-1.3 [place] [id number] 09:00:00 Test Item Value Reference Range Interpretation Comments AST (test code = AST) 17 <=37 [place] 706475-10-13 09:00:00 Test Item Value Reference Range Interpretation Comments Alk Phos (test code = Alk Phos) 72 39-136 [facility]2015-10-13 09:00:00 Test Item Value Reference Range Interpretation Comments eGFR (test code = eGFR) 115 [facility] Hos[id number] 09:00:00 Test Item Value Reference Range Interpretation Comments Eosinophils # (test code = Eosinophils 0.3 <=0.5 #) [facility] HospitalTrfkojeHVESTYRKIB1019-16-40 09:00:00 Test Item Value Reference Range Interpretation Comments Macrocyte (test code = 1+ *ABN*(02/14/15 Macrocyte) 4:00 AM) [facility] HospitalAfmoaoiDPHPCZFNJR8639-48-30 09:00:00 Test Item Value Reference Range Interpretation Comments Segs-Bands # (test code = Segs-Bands #) 5.2 1.5-8.1 [facility] HospitalHbrhgcbRYKPYKUGJY0367-92-12 09:00:00 Test Item Value Reference Range Interpretation Comments Lymphocytes # (test code = Lymphocytes 2.2 1.0-5.5 #) [facility] HospitalFqotmqiHRAYETULWM2137-40-27 09:00:00 Test Item Value Reference Range Interpretation Comments Monocytes # (test code = Monocytes #) 0.9 <=0.8 [place] [id number] 09:00:00 Test Item Value Reference Range Interpretation Comments Basophils (test code = Basophils) 0.5 <=1.0 [facility] HospitalVkqjjekOEPTCDEQKT5650-97-12 09:00:00 Test Item Value Reference Range Interpretation Comments Eosinophils (test code = Eosinophils) 3.7 <=4.0 [facility] HospitalBhspsprIEGGXYLDMK7040-17-50 09:00:00 Test Item Value Reference Range Interpretation Comments Plt Morph (test code = Normal (02/14/15 4:00 Plt Morph) AM) [facility] HospitalWezwoxwTKJBBIWADX7754-63-86 09:00:00 Test Item Value Reference Range Interpretation Comments Segs (test code = Segs) 59.6 45.0-75.0 [facility] HospitalAwblatpXUYYFIIKPB7209-55-03 09:00:00 Test Item Value Reference Range Interpretation Comments Lymphocytes (test code = Lymphocytes) 25.8 20.0-40.0 [facility] HospitalYbxcescXEUZZYKSAS3223-83-12 09:00:00 Test Item Value Reference Range Interpretation Comments Monocytes (test code = Monocytes) 10.4 2.0-12.0 [facility] HospitalJcgrtmzULZKQAGYLQ0149-81-17 09:00:00 Test Item Value Reference Range Interpretation Comments MPV (test code = MPV) 9.6 7.4-10.4 [facility] HospitalObijfiiVNSDBCIKJB2994-78-09 09:00:00 Test Item Value Reference Range Interpretation Comments Platelet (test code = Platelet) 163 133-450 [facility] HospitalNyzjhovIYNRRENVHL3267-92-57 09:00:00 Test Item Value Reference Range Interpretation Comments RDW (test code = RDW) 13.7 11.5-14.5 [facility] HospitalLmznqghJQONSLETXS4660-29-08 09:00:00 Test Item Value Reference Range Interpretation Comments MCHC (test code = MCHC) 33.0 32.0-36.0 [facility] HospitalFnwbiqpAYLDZJXDPS7013-88-75 09:00:00 Test Item Value Reference Range Interpretation Comments MCH (test code = MCH) 31.8 pg 27.0-31.0 [facility] HospitalNabjfqiXLFGUJCVUL3717-25-24 09:00:00 Test Item Value Reference Range Interpretation Comments MCV (test code = MCV) 96.6 80.0-94.0 [facility] HospitalMctrmdsSJQQXQZQNV2130-11-30 09:00:00 Test Item Value Reference Range Interpretation Comments Hct (test code = Hct) 37.3 42.0-54.0 [facility] HospitalLlxsrtlHOJVQRCFOZ5365-06-90 09:00:00 Test Item Value Reference Range Interpretation Comments Hgb (test code = Hgb) 12.3 14.0-18.0 [facility] HospitalPrqcgtfGSMRQOUSPB6394-87-48 09:00:00 Test Item Value Reference Range Interpretation Comments RBC (test code = RBC) 3.87 4.70-6.10 [facility] HospitalZufutuyWNJAZWWQPF0115-14-32 09:00:00 Test Item Value Reference Range Interpretation Comments WBC (test code = WBC) 8.7 3.7-10.4 [place] [id number] 09:00:00 Test Item Value Reference Range Interpretation Comments Valproic Acid Lvl (test code = Valproic 49 50-100 Acid Lvl) [place] [id number] 09:00:00 Test Item Value Reference Range Interpretation Comments Phenytoin Free (test code = Phenytoin 2.16 1.00-2.00 Free) [place] [id number] 09:00:00 Test Item Value Reference Range Interpretation Comments Phenytoin Total (test code = Phenytoin 16.6 10.0-20.0 Total) [place] [id number] 15:22:00 Test Item Value Reference Range Interpretation Comments Phenytoin Free (test code = Phenytoin 0.22 1.00-2.00 Free) [place] [id number] 15:22:00 Test Item Value Reference Range Interpretation Comments Phenytoin Total (test code = Phenytoin 1.9 10.0-20.0 Total) [facility]2015-10-12 09:14:00 Test Item Value Reference Range Interpretation Comments UA Urobilinogen (test code = UA <=1.0 mg/dL 0.1-1.0 Urobilinogen) [facility]2015-10-12 09:14:00 Test Item Value Reference Range Interpretation Comments UA Glucose (test code = UA Glucose) 50mg/dl [facility]2015-10-12 09:14:00 Test Item Value Reference Range Interpretation Comments UA Ketones (test code = UA Ketones) Negative [facility]2015-10-12 09:14:00 Test Item Value Reference Range Interpretation Comments UA Mucus (test code = UA Mucus) Few /LPF [facility] AND [id number] 09:14:00 Test Item Value Reference Range Interpretation Comments UA Sq Epi (test code = UA Sq Epi) Few /LPF [facility] AND [id number] 09:14:00 Test Item Value Reference Range Interpretation Comments UA Leuk Est (test Negative (02/13/15 4:14 code = UA Leuk Est) AM) [facility] AND [id number] 09:14:00 Test Item Value Reference Range Interpretation Comments UA Nitrite (test code Negative (02/13/15 4:14 = UA Nitrite) AM) [facility] AND [id number] 09:14:00 Test Item Value Reference Range Interpretation Comments UA RBC (test code = UA RBC) no gt <=2 [facility] AND [id number] 09:14:00 Test Item Value Reference Range Interpretation Comments UA WBC (test code = UA WBC) 1 <=5 [facility] AND [id number] 09:14:00 Test Item Value Reference Range Interpretation Comments UA Blood (test code = Negative (02/13/15 4:14 UA Blood) AM) [facility] AND [id number] 09:14:00 Test Item Value Reference Range Interpretation Comments UA Bili (test code = Negative *NA*(02/13/15 UA Bili) 4:14 AM) [facility] AND [id number] 09:14:00 Test Item Value Reference Range Interpretation Comments UA Protein (test code = UA Negative mg/dL Protein) [facility] AND [id number] 09:14:00 Test Item Value Reference Range Interpretation Comments UA pH (test code = UA pH) 7.0 5.0-8.0 [facility] AND [id number] 09:14:00 Test Item Value Reference Range Interpretation Comments UA Spec Grav (test code = UA Spec Grav) 1.019 [facility] AND [id number] 09:14:00 Test Item Value Reference Range Interpretation Comments UA Turbidity (test code = Clear (02/13/15 4:14 UA Turbidity) AM) [facility] AND [id number] 09:14:00 Test Item Value Reference Range Interpretation Comments UA Color (test code = Light Yellow UA Color) *NA*(02/13/15 4:14 AM) [place] [id number] 08:37:00 Test Item Value Reference Range Interpretation Comments Phosphorus (test code = Phosphorus) 2.1 2.5-4.5 [place] [id number] 08:37:00 Test Item Value Reference Range Interpretation Comments Magnesium Lvl (test code = Magnesium 1.8 1.8-2.4 Lvl) [facility]2015-10-12 08:37:00 Test Item Value Reference Range Interpretation Comments eGFR (test code = eGFR) 109 [facility]2015-10-12 08:37:00 Test Item Value Reference Range Interpretation Comments Sodium Lvl (test code = Sodium Lvl) 140 135-145 [facility]2015-10-12 08:37:00 Test Item Value Reference Range Interpretation Comments Potassium Lvl (test code = Potassium 3.9 3.5-5.1 Lvl) [facility]2015-10-12 08:37:00 Test Item Value Reference Range Interpretation Comments Creatinine Lvl (test code = Creatinine 0.8 0.5-1.4 Lvl) [facility]2015-10-12 08:37:00 Test Item Value Reference Range Interpretation Comments BUN (test code = BUN) 14 7-22 [facility]2015-10-12 08:37:00 Test Item Value Reference Range Interpretation Comments Chloride Lvl (test code = Chloride Lvl) 105 95-109 [facility]2015-10-12 08:37:00 Test Item Value Reference Range Interpretation Comments ALT (test code = ALT) 35 <=65 [facility]2015-10-12 08:37:00 Test Item Value Reference Range Interpretation Comments Total Protein (test code = Total 5.8 6.4-8.4 Protein) [facility]2015-10-12 08:37:00 Test Item Value Reference Range Interpretation Comments Alk Phos (test code = Alk Phos) 76 39-136 [facility]2015-10-12 08:37:00 Test Item Value Reference Range Interpretation Comments Glucose Lvl (test code = Glucose Lvl) 94 70-99 [facility]2015-10-12 08:37:00 Test Item Value Reference Range Interpretation Comments AST (test code = AST) 23 <=37 [facility]2015-10-12 08:37:00 Test Item Value Reference Range Interpretation Comments Bili Total (test code = Bili Total) 1.0 0.2-1.3 [facility]2015-10-12 08:37:00 Test Item Value Reference Range Interpretation Comments Albumin Lvl (test code = Albumin Lvl) 3.0 3.5-5.0 [facility]2015-10-12 08:37:00 Test Item Value Reference Range Interpretation Comments Calcium Lvl (test code = Calcium Lvl) 8.3 8.5-10.5 [facility]2015-10-12 08:37:00 Test Item Value Reference Range Interpretation Comments CO2 (test code = CO2) 27 24-32 [facility]2015-10-12 08:37:00 Test Item Value Reference Range Interpretation Comments B/C Ratio (test code = B/C Ratio) 18 6-25 [facility]2015-10-12 08:37:00 Test Item Value Reference Range Interpretation Comments Globulin (test code = Globulin) 2.8 2.0-4.0 [facility]2015-10-12 08:37:00 Test Item Value Reference Range Interpretation Comments A/G Ratio (test code = A/G Ratio) 1.1 0.7-1.6 [facility]2015-10-12 08:37:00 Test Item Value Reference Range Interpretation Comments AGAP (test code = AGAP) 11.9 10.0-20.0 [facility]IhigozrFMRFDNXUAJ0672-79-15 08:37:00 Test Item Value Reference Range Interpretation Comments MPV (test code = MPV) 9.1 7.4-10.4 [facility] HospitalIlcjaqmUHCLDFLLAQ1756-48-31 08:37:00 Test Item Value Reference Range Interpretation Comments Platelet (test code = Platelet) 164 133-450 [facility] HospitalFcabntpJZOHCHDTBG4928-85-71 08:37:00 Test Item Value Reference Range Interpretation Comments MCHC (test code = MCHC) 33.5 32.0-36.0 [facility] HospitalCjqztjvCZBFHVLEQA1570-17-13 08:37:00 Test Item Value Reference Range Interpretation Comments RDW (test code = RDW) 13.6 11.5-14.5 [facility] HospitalMdlnqxtKXFVOKNGDX4119-98-95 08:37:00 Test Item Value Reference Range Interpretation Comments Hct (test code = Hct) 38.4 42.0-54.0 [facility] HospitalRblwzlzZLOQEEOWFD5077-84-20 08:37:00 Test Item Value Reference Range Interpretation Comments MCV (test code = MCV) 95.6 80.0-94.0 [facility] HospitalJicatwtFRGKTPFSUA6155-77-93 08:37:00 Test Item Value Reference Range Interpretation Comments RBC (test code = RBC) 4.01 4.70-6.10 [facility] HospitalYudyeujXNSVJUJJHL8276-00-12 08:37:00 Test Item Value Reference Range Interpretation Comments Hgb (test code = Hgb) 12.8 14.0-18.0 [facility] HospitalRxkzjzuMYNRBSGWJW9920-16-81 08:37:00 Test Item Value Reference Range Interpretation Comments MCH (test code = MCH) 32.0 pg 27.0-31.0 [facility] HospitalObbarjqEBBNVFWBOB2678-47-74 08:37:00 Test Item Value Reference Range Interpretation Comments WBC (test code = WBC) 15.6 3.7-10.4 [facility] HospitalRpgqiyrAFNSLXKJOO3482-32-40 08:37:00 Test Item Value Reference Range Interpretation Comments Segs-Bands # (test code = Segs-Bands #) 12.2 1.5-8.1 [facility] HospitalLngsetcONKRCWSMLZ2664-11-70 08:37:00 Test Item Value Reference Range Interpretation Comments Lymphocytes # (test code = Lymphocytes 1.7 1.0-5.5 #) [facility] HospitalVhekrmaGOMVOTDQAS7864-08-49 08:37:00 Test Item Value Reference Range Interpretation Comments Macrocyte (test code = 1+ *ABN*(02/13/15 Macrocyte) 3:37 AM) [facility] HospitalEhooizfSKRMMVUEPK1994-48-54 08:37:00 Test Item Value Reference Range Interpretation Comments Monocytes # (test code = Monocytes #) 1.5 <=0.8 [facility] HospitalYpsuvnzXOBVBAXVZJ4983-08-03 08:37:00 Test Item Value Reference Range Interpretation Comments Eosinophils # (test code = Eosinophils 0.2 <=0.5 #) [facility] HospitalDcghgzyHIEUTNQVVA3601-38-08 08:37:00 Test Item Value Reference Range Interpretation Comments Lymphocytes (test code = Lymphocytes) 11.1 20.0-40.0 [facility] HospitalRgsbsuhIDRKVBRBHU4134-23-10 08:37:00 Test Item Value Reference Range Interpretation Comments Monocytes (test code = Monocytes) 9.4 2.0-12.0 [facility] HospitalMteqpsrDJKAZHHIDB4360-18-51 08:37:00 Test Item Value Reference Range Interpretation Comments Segs (test code = Segs) 78.1 45.0-75.0 [facility] HospitalFupwzrqEIKSIRKMNP3567-77-44 08:37:00 Test Item Value Reference Range Interpretation Comments Basophils (test code = Basophils) 0.3 <=1.0 [facility] HospitalSdlsgbcLEVIPHCUWE4458-59-76 08:37:00 Test Item Value Reference Range Interpretation Comments Eosinophils (test code = Eosinophils) 1.1 <=4.0 [place] [id number] 04:15:00 Test Item Value Reference Range Interpretation Comments Valproic Acid Lvl (test code = Valproic 11 50-100 Acid Lvl) [place] [id number] 14:26:00 Test Item Value Reference Range Interpretation Comments Valproic Acid Lvl (test code = Valproic 27 50-100 Acid Lvl) [facility]2015-08-12 07:28:00 Test Item Value Reference Range Interpretation Comments Magnesium Lvl (test code = Magnesium 1.7 1.8-2.4 Lvl) [facility]2015-08-12 07:28:00 Test Item Value Reference Range Interpretation Comments Phosphorus (test code = Phosphorus) 2.3 2.5-4.5 [facility]DgvkzczROWPAKBSQKTB3242-67-63 07:28:00 Test Item Value Reference Range Interpretation Comments AGAP (test code = AGAP) 11.5 10.0-20.0 [facility]PmypuleRDQZULDDQSTU2694-86-95 07:28:00 Test Item Value Reference Range Interpretation Comments eGFR (test code = eGFR) 115 [facility]YziazcmOHBZLWGLSNOO6949-90-40 07:28:00 Test Item Value Reference Range Interpretation Comments Glucose Lvl (test code = Glucose Lvl) 78 70-99 [facility]DldxvlvUAZDPGAQANNC1479-57-08 07:28:00 Test Item Value Reference Range Interpretation Comments BUN (test code = BUN) 11 7-22 [facility]OpfsbraYAUUXAVEIPCF1607-55-97 07:28:00 Test Item Value Reference Range Interpretation Comments Calcium Lvl (test code = Calcium Lvl) 8.4 8.5-10.5 [facility]OcvhfhmEIEATBTYAMNP5340-12-25 07:28:00 Test Item Value Reference Range Interpretation Comments Chloride Lvl (test code = Chloride Lvl) 110 95-109 [facility]AutzxjvHTJXGLBCIAXZ0727-39-73 07:28:00 Test Item Value Reference Range Interpretation Comments CO2 (test code = CO2) 26 24-32 [facility]JabfxjgYRRCHXYZTQHO1475-56-56 07:28:00 Test Item Value Reference Range Interpretation Comments Creatinine Lvl (test code = Creatinine 0.7 0.5-1.4 Lvl) [facility]ExvptnzMGOQNANBWKGW8853-41-11 07:28:00 Test Item Value Reference Range Interpretation Comments Sodium Lvl (test code = Sodium Lvl) 143 135-145 [facility]LgutejkPWNPMCMJVQWC1955-87-97 07:28:00 Test Item Value Reference Range Interpretation Comments Potassium Lvl (test code = Potassium 4.5 3.5-5.1 Lvl) [facility] HospitalWnmqpegCQSOJJFATJ7815-40-29 07:28:00 Test Item Value Reference Range Interpretation Comments Lymphocytes # (test code = Lymphocytes 2.5 1.0-5.5 #) [facility] HospitalPorhzguBTOTGRTBKF0287-76-47 07:28:00 Test Item Value Reference Range Interpretation Comments Basophils # (test code = Basophils #) 0.1 <=0.2 [facility] HospitalGraecjfPXHMNMUTWM6865-60-52 07:28:00 Test Item Value Reference Range Interpretation Comments Eosinophils # (test code = Eosinophils 0.3 <=0.5 #) [facility] HospitalMgjutmxBLHMHEVSIH9285-31-60 07:28:00 Test Item Value Reference Range Interpretation Comments Monocytes # (test code = Monocytes #) 0.6 <=0.8 [facility] HospitalMdhognsYSYQAZXBAF1197-94-55 07:28:00 Test Item Value Reference Range Interpretation Comments Monocytes (test code = Monocytes) 9.0 2.0-12.0 [facility] HospitalAifvsxcFXRKIRYLRU5743-84-96 07:28:00 Test Item Value Reference Range Interpretation Comments Basophils (test code = Basophils) 1.0 <=1.0 [facility] HospitalTrvarkrWZJTHBCPQS9590-05-50 07:28:00 Test Item Value Reference Range Interpretation Comments Segs-Bands # (test code = Segs-Bands #) 2.7 1.5-8.1 [facility] HospitalSmtweweNFWXKUYZUQ7759-43-73 07:28:00 Test Item Value Reference Range Interpretation Comments Eosinophils (test code = Eosinophils) 5.0 <=4.0 [facility] HospitalTdcxtppIFAXZVIJHR8557-89-51 07:28:00 Test Item Value Reference Range Interpretation Comments Segs (test code = Segs) 44.3 45.0-75.0 [facility] HospitalGgfrydqJFVXMUFSHL7722-54-04 07:28:00 Test Item Value Reference Range Interpretation Comments Lymphocytes (test code = Lymphocytes) 40.7 20.0-40.0 [facility] HospitalWixusweOMDYXDQZDY5678-06-27 07:28:00 Test Item Value Reference Range Interpretation Comments Hct (test code = Hct) 39.9 42.0-54.0 [facility] HospitalLdhsclmYKGBYECELL2940-30-01 07:28:00 Test Item Value Reference Range Interpretation Comments Hgb (test code = Hgb) 13.2 14.0-18.0 [facility] HospitalUvphqmzNIMPAUKUXR6544-26-22 07:28:00 Test Item Value Reference Range Interpretation Comments RBC (test code = RBC) 4.17 4.70-6.10 [facility] HospitalXngblsoYQYVURXQUU5539-09-92 07:28:00 Test Item Value Reference Range Interpretation Comments WBC (test code = WBC) 6.1 3.7-10.4 [facility] HospitalJoegpndPAZAJAQQEQ1090-05-59 07:28:00 Test Item Value Reference Range Interpretation Comments MCHC (test code = MCHC) 32.9 32.0-36.0 [facility] HospitalNoizticINEJZTQIFV3934-63-61 07:28:00 Test Item Value Reference Range Interpretation Comments RDW (test code = RDW) 13.2 11.5-14.5 [facility] HospitalEsagqraMASJXUUGYH7264-85-71 07:28:00 Test Item Value Reference Range Interpretation Comments MCH (test code = MCH) 31.6 pg 27.0-31.0 [facility] HospitalWxsafycLENVHUIZKB4554-26-66 07:28:00 Test Item Value Reference Range Interpretation Comments MCV (test code = MCV) 95.9 80.0-94.0 [facility] HospitalHtmddupXNFFKZAXIP1644-21-94 07:28:00 Test Item Value Reference Range Interpretation Comments Platelet (test code = Platelet) 170 133-450 [facility] HospitalCloxaaxNRFOIUOAYM2938-05-08 07:28:00 Test Item Value Reference Range Interpretation Comments MPV (test code = MPV) 10.0 7.4-10.4 [facility]2015-08-11 08:08:00 Test Item Value Reference Range Interpretation Comments eGFR (test code = eGFR) 104 [facility]2015-08-11 08:08:00 Test Item Value Reference Range Interpretation Comments Calcium Lvl (test code = Calcium Lvl) 8.0 8.5-10.5 [facility]2015-08-11 08:08:00 Test Item Value Reference Range Interpretation Comments CO2 (test code = CO2) 26 24-32 [facility]2015-08-11 08:08:00 Test Item Value Reference Range Interpretation Comments Chloride Lvl (test code = Chloride Lvl) 110 95-109 [facility]2015-08-11 08:08:00 Test Item Value Reference Range Interpretation Comments Potassium Lvl (test code = Potassium 4.1 3.5-5.1 Lvl) [facility]2015-08-11 08:08:00 Test Item Value Reference Range Interpretation Comments Sodium Lvl (test code = Sodium Lvl) 143 135-145 [facility]2015-08-11 08:08:00 Test Item Value Reference Range Interpretation Comments Glucose Lvl (test code = Glucose Lvl) 86 70-99 [facility]2015-08-11 08:08:00 Test Item Value Reference Range Interpretation Comments BUN (test code = BUN) 16 7-22 [facility]2015-08-11 08:08:00 Test Item Value Reference Range Interpretation Comments Creatinine Lvl (test code = Creatinine 0.9 0.5-1.4 Lvl) [facility]2015-08-11 08:08:00 Test Item Value Reference Range Interpretation Comments AGAP (test code = AGAP) 11.1 10.0-20.0 [facility]2015-08-11 08:08:00 Test Item Value Reference Range Interpretation Comments Phosphorus (test code = Phosphorus) 2.9 2.5-4.5 [facility]2015-08-11 08:08:00 Test Item Value Reference Range Interpretation Comments Magnesium Lvl (test code = Magnesium 1.9 1.8-2.4 Lvl) [facility] HospitalCmjbvdpXCCSKPUBPB3827-51-36 08:08:00 Test Item Value Reference Range Interpretation Comments Segs (test code = Segs) 50.9 45.0-75.0 [facility] HospitalWivlwtwLUYLRXXIZA4405-40-24 08:08:00 Test Item Value Reference Range Interpretation Comments Lymphocytes (test code = Lymphocytes) 34.7 20.0-40.0 [facility] HospitalPvubnxnTXMVNIKRZZ7301-94-91 08:08:00 Test Item Value Reference Range Interpretation Comments Eosinophils (test code = Eosinophils) 4.8 <=4.0 [facility] HospitalFpnlxfeQXWAGPNUHF3061-38-46 08:08:00 Test Item Value Reference Range Interpretation Comments Segs-Bands # (test code = Segs-Bands #) 3.4 1.5-8.1 [facility] HospitalTsigajaABJCGPHFTV1304-52-45 08:08:00 Test Item Value Reference Range Interpretation Comments Monocytes (test code = Monocytes) 8.7 2.0-12.0 [facility] HospitalHlxqjymFFVWNYKVJB4618-82-47 08:08:00 Test Item Value Reference Range Interpretation Comments Basophils (test code = Basophils) 0.9 <=1.0 [facility] HospitalRmdbsjkWMPSLGPPZM2317-77-25 08:08:00 Test Item Value Reference Range Interpretation Comments Lymphocytes # (test code = Lymphocytes 2.3 1.0-5.5 #) [facility] HospitalMxyzidjNICNXEXPNJ3980-07-57 08:08:00 Test Item Value Reference Range Interpretation Comments Eosinophils # (test code = Eosinophils 0.3 <=0.5 #) [facility] HospitalBuzmewbDCHSECRGII6328-51-28 08:08:00 Test Item Value Reference Range Interpretation Comments Monocytes # (test code = Monocytes #) 0.6 <=0.8 [facility] HospitalFprnmpaJGUSQFUCWZ1663-41-31 08:08:00 Test Item Value Reference Range Interpretation Comments Basophils # (test code = Basophils #) 0.1 <=0.2 [facility] HospitalAaxzqqkFTVBHHRAST0257-83-33 08:08:00 Test Item Value Reference Range Interpretation Comments WBC (test code = WBC) 6.7 3.7-10.4 [facility] HospitalEsiobxiLXSQHRHHQJ3897-67-25 08:08:00 Test Item Value Reference Range Interpretation Comments RBC (test code = RBC) 4.01 4.70-6.10 [facility]ZucghcjLVBGBGHRSW0016-91-78 08:08:00 Test Item Value Reference Range Interpretation Comments Hgb (test code = Hgb) 12.7 14.0-18.0 [facility] CenterKwzudkkUKMGUORBDD7635-10-01 08:08:00 Test Item Value Reference Range Interpretation Comments Hct (test code = Hct) 38.4 42.0-54.0 [facility] CenterPqftfqrVNZLTMKBIT8863-69-01 08:08:00 Test Item Value Reference Range Interpretation Comments MCV (test code = MCV) 96.0 80.0-94.0 [facility]MERSDEZF9304-80-99 08:08:00 Test Item Value Reference Range Interpretation Comments MCH (test code = MCH) 31.8 pg 27.0-31.0 [facility] CenterEkiunyoGXXQRHBQHX4512-27-49 08:08:00 Test Item Value Reference Range Interpretation Comments MCHC (test code = MCHC) 33.2 32.0-36.0 [facility] CenterZvxgeepYOKAKHHOPE8049-03-90 08:08:00 Test Item Value Reference Range Interpretation Comments RDW (test code = RDW) 12.8 11.5-14.5 [facility] IvddfewBZXFNIIYKR7604-32-24 08:08:00 Test Item Value Reference Range Interpretation Comments MPV (test code = MPV) 9.7 7.4-10.4 [facility] CenterDjnbptzBVVEUFZJZU0890-06-71 08:08:00 Test Item Value Reference Range Interpretation Comments Platelet (test code = Platelet) 157 133-450 [facility] CenterannPARATHYROID TCGVPJO3295-59-86 08:08:00 Test Item Value Reference Range Interpretation Comments Ca Norm WB (test code = Ca Norm WB) 1.08 1.05-1.25 [facility]annPARATHYROID ULNQLUZ8291-54-65 08:08:00 Test Item Value Reference Range Interpretation Comments Ca Ion WB (test code = Ca Ion WB) 1.12 1.05-1.25 [facility] CenterWqpnhhaUVTCQHHAMM0423-10-44 22:07:00 Test Item Value Reference Range Interpretation Comments HIV 1/2 Ab (test code Negative *NA*(12/12/14 = HIV 1/2 Ab) 5:07 PM) [facility] CenterannBACTERIAL - [id number] 15:14:00 Test Item Value Reference Range Interpretation Comments MRSA by PCR (test Negative (12/12/14 10:14 code = MRSA by PCR) AM) [facility] [id number] 15:14:00 Test Item Value Reference Range Interpretation Comments U Methadone Scr (test Negative *NA*(12/12/14 code = U Methadone Scr) 10:14 AM) [facility] [id number] 15:14:00 Test Item Value Reference Range Interpretation Comments U Propoxyph Scr (test Negative *NA*(12/12/14 code = U Propoxyph Scr) 10:14 AM) [facility] [id number] 15:14:00 Test Item Value Reference Range Interpretation Comments UDS Note (test code = See Note (12/12/14 10:14 UDS Note) AM) [facility] [id number] 15:14:00 Test Item Value Reference Range Interpretation Comments U Phencyc Scr (test Negative *NA*(12/12/14 code = U Phencyc Scr) 10:14 AM) [facility] [id number] 15:14:00 Test Item Value Reference Range Interpretation Comments U Cannab Scr (test Negative *NA*(12/12/14 code = U Cannab Scr) 10:14 AM) [facility] [id number] 15:14:00 Test Item Value Reference Range Interpretation Comments U Opiate Scr (test Positive *ABN*(12/12/14 code = U Opiate Scr) 10:14 AM) [facility] [id number] 15:14:00 Test Item Value Reference Range Interpretation Comments U Cocaine Scr (test Positive *ABN*(12/12/14 code = U Cocaine Scr) 10:14 AM) [facility] [id number] 15:14:00 Test Item Value Reference Range Interpretation Comments U Shi Scr (test code Negative *NA*(12/12/14 = U Shi Scr) 10:14 AM) [facility] [id number] 15:14:00 Test Item Value Reference Range Interpretation Comments U Benzodia Scr (test Positive *ABN*(12/12/14 code = U Benzodia Scr) 10:14 AM) [facility] [id number] 15:14:00 Test Item Value Reference Range Interpretation Comments U Amph Scr (test code Positive *ABN*(12/12/14 = U Amph Scr) 10:14 AM) [facility] AND [id number] 15:14:00 Test Item Value Reference Range Interpretation Comments UA Urobilinogen (test code = UA <=1.0 mg/dL 0.1-1.0 Urobilinogen) [facility] AND [id number] 15:14:00 Test Item Value Reference Range Interpretation Comments UA Ketones (test code = UA Ketones) TR [facility] AND [id number] 15:14:00 Test Item Value Reference Range Interpretation Comments UA Mucus (test code = UA Mucus) Few /LPF [facility] AND [id number] 15:14:00 Test Item Value Reference Range Interpretation Comments UA RBC (test code = UA RBC) 1 <=2 [facility] AND [id number] 15:14:00 Test Item Value Reference Range Interpretation Comments UA WBC (test code = UA WBC) 17 <=5 [facility] AND [id number] 15:14:00 Test Item Value Reference Range Interpretation Comments UA Sq Epi (test code = UA Sq Occasional /LPF Epi) [facility] AND [id number] 15:14:00 Test Item Value Reference Range Interpretation Comments UA Glucose (test code = UA Negative mg/dL Glucose) [facility] AND [id number] 15:14:00 Test Item Value Reference Range Interpretation Comments UA Protein (test code = UA Protein) 20 mg/dL [facility] AND [id number] 15:14:00 Test Item Value Reference Range Interpretation Comments UA Leuk Est (test code Small *ABN*(12/12/14 = UA Leuk Est) 10:14 AM) [facility] AND [id number] 15:14:00 Test Item Value Reference Range Interpretation Comments UA Nitrite (test code Negative (12/12/14 10:14 = UA Nitrite) AM) [facility] AND [id number] 15:14:00 Test Item Value Reference Range Interpretation Comments UA Blood (test code = Negative (12/12/14 10:14 UA Blood) AM) [facility] AND [id number] 15:14:00 Test Item Value Reference Range Interpretation Comments UA Bili (test code = Negative *NA*(12/12/14 UA Bili) 10:14 AM) [facility] [id number] 15:14:00 Test Item Value Reference Range Interpretation Comments UA Turbidity (test code = Clear (12/12/14 10:14 UA Turbidity) AM) [facility] [id number] 15:14:00 Test Item Value Reference Range Interpretation Comments UA Color (test code = Yellow *NA*(12/12/14 UA Color) 10:14 AM) [facility] [id number] 15:14:00 Test Item Value Reference Range Interpretation Comments UA pH (test code = UA pH) 7.0 5.0-8.0 [facility] [id number] 15:14:00 Test Item Value Reference Range Interpretation Comments UA Spec Grav (test code = UA Spec Grav) 1.023 [facility] [id number] 13:09:00 Test Item Value Reference Range Interpretation Comments Total CK (test code = Total CK) 106 12-191 [facility] [id number] 13:09:00 Test Item Value Reference Range Interpretation Comments CK MB Index (test code = CK MB Index) 1.5 <=2.5 [facility] [id number] 13:09:00 Test Item Value Reference Range Interpretation Comments CK MB (test code = CK MB) 1.6 0.5-3.6 [facility] [id number] 13:09:00 Test Item Value Reference Range Interpretation Comments Phosphorus (test code = Phosphorus) 2.3 2.5-4.5 [facility]annCHEM [id number] 13:09:00 Test Item Value Reference Range Interpretation Comments Bili Direct (test code = Bili Direct) 0.1 <=0.3 [facility] [id number] 13:09:00 Test Item Value Reference Range Interpretation Comments AST (test code = AST) 21 <=37 [facility] [id number] 13:09:00 Test Item Value Reference Range Interpretation Comments ALT (test code = ALT) 27 <=65 [facility] [id number] 13:09:00 Test Item Value Reference Range Interpretation Comments Total Protein (test code = Total 6.0 6.4-8.4 Protein) [facility]2015-08-10 13:09:00 Test Item Value Reference Range Interpretation Comments Globulin (test code = Globulin) 2.9 2.0-4.0 [facility]2015-08-10 13:09:00 Test Item Value Reference Range Interpretation Comments Albumin Lvl (test code = Albumin Lvl) 3.1 3.5-5.0 [facility]2015-08-10 13:09:00 Test Item Value Reference Range Interpretation Comments A/G Ratio (test code = A/G Ratio) 1.1 0.7-1.6 [facility]2015-08-10 13:09:00 Test Item Value Reference Range Interpretation Comments Alk Phos (test code = Alk Phos) 64 39-136 [facility]2015-08-10 13:09:00 Test Item Value Reference Range Interpretation Comments Bili Indirect (test code = Bili 0.1 <=1.0 Indirect) [facility]2015-08-10 13:09:00 Test Item Value Reference Range Interpretation Comments Bili Total (test code = Bili Total) 0.2 0.2-1.3 [facility]2015-08-10 13:09:00 Test Item Value Reference Range Interpretation Comments Magnesium Lvl (test code = Magnesium 2.1 1.8-2.4 Lvl) [facility]2015-08-10 13:09:00 Test Item Value Reference Range Interpretation Comments eGFR (test code = eGFR) 104 [facility]2015-08-10 13:09:00 Test Item Value Reference Range Interpretation Comments Chloride Lvl (test code = Chloride Lvl) 109 95-109 [facility]2015-08-10 13:09:00 Test Item Value Reference Range Interpretation Comments Calcium Lvl (test code = Calcium Lvl) 8.1 8.5-10.5 [facility]2015-08-10 13:09:00 Test Item Value Reference Range Interpretation Comments CO2 (test code = CO2) 26 24-32 [facility]2015-08-10 13:09:00 Test Item Value Reference Range Interpretation Comments Sodium Lvl (test code = Sodium Lvl) 141 135-145 [facility]2015-08-10 13:09:00 Test Item Value Reference Range Interpretation Comments Potassium Lvl (test code = Potassium 3.9 3.5-5.1 Lvl) [facility]2015-08-10 13:09:00 Test Item Value Reference Range Interpretation Comments Creatinine Lvl (test code = Creatinine 0.9 0.5-1.4 Lvl) [facility]2015-08-10 13:09:00 Test Item Value Reference Range Interpretation Comments BUN (test code = BUN) 15 7-22 [facility]2015-08-10 13:09:00 Test Item Value Reference Range Interpretation Comments Glucose Lvl (test code = Glucose Lvl) 88 70-99 [facility]2015-08-10 13:09:00 Test Item Value Reference Range Interpretation Comments AGAP (test code = AGAP) 9.9 10.0-20.0 [facility]RkzolxwNVIKJZAFJJ5728-90-00 13:09:00 Test Item Value Reference Range Interpretation Comments INR (test code = INR) 0.98 0.85-1.17 [facility] Hospit[id number] 13:09:00 Test Item Value Reference Range Interpretation Comments PT (test code = PT) 13.0 s 12.0-14.7 [facility] HospitalQukvzgfRRLBHBXPSB0908-67-73 13:09:00 Test Item Value Reference Range Interpretation Comments PTT (test code = PTT) 28.4 s 22.9-35.8 [facility] HospitalCrfuwbpIRRENPAGVG6862-38-96 13:09:00 Test Item Value Reference Range Interpretation Comments MCHC (test code = MCHC) 33.1 32.0-36.0 [facility] HospitalDkzjuptCPQJMCUYEI1896-38-63 13:09:00 Test Item Value Reference Range Interpretation Comments RDW (test code = RDW) 13.0 11.5-14.5 [facility] HospitalPeoqmxbBUPXHCCQZW0384-58-52 13:09:00 Test Item Value Reference Range Interpretation Comments MPV (test code = MPV) 9.0 7.4-10.4 [facility] HospitalUjkgowmBLIFZGMYET2460-11-85 13:09:00 Test Item Value Reference Range Interpretation Comments Platelet (test code = Platelet) 161 133-450 [facility] HospitalNaconpkOEXIEBNZOT0668-93-59 13:09:00 Test Item Value Reference Range Interpretation Comments Hgb (test code = Hgb) 12.5 14.0-18.0 [facility] HospitalWzuyatrRJPQOBGLKO7076-88-10 13:09:00 Test Item Value Reference Range Interpretation Comments MCH (test code = MCH) 32.1 pg 27.0-31.0 [facility] HospitalFpeozfgEOAWWJWUSB1744-54-16 13:09:00 Test Item Value Reference Range Interpretation Comments MCV (test code = MCV) 96.7 80.0-94.0 [facility] HospitalBvpmlyyXYSMBZSADA4625-04-78 13:09:00 Test Item Value Reference Range Interpretation Comments Hct (test code = Hct) 37.8 42.0-54.0 [facility] HospitalUjcfyhqEKRLNCRPBY7760-66-61 13:09:00 Test Item Value Reference Range Interpretation Comments WBC (test code = WBC) 8.9 3.7-10.4 [facility] HospitalQzounfxJABJAJCPLP2905-75-31 13:09:00 Test Item Value Reference Range Interpretation Comments RBC (test code = RBC) 3.91 4.70-6.10 [facility] HospitalKmvkfhgRVHZHITFGQ7452-39-34 13:09:00 Test Item Value Reference Range Interpretation Comments Basophils (test code = Basophils) 0.5 <=1.0 [facility] HospitalFculmdsVULMSALWZH3413-77-87 13:09:00 Test Item Value Reference Range Interpretation Comments Segs-Bands # (test code = Segs-Bands #) 5.2 1.5-8.1 [facility] HospitalYpexnnyFCESGNSKHJ4402-30-94 13:09:00 Test Item Value Reference Range Interpretation Comments Lymphocytes # (test code = Lymphocytes 2.5 1.0-5.5 #) [facility] HospitalZshkoczJKNETHSFFM8295-03-90 13:09:00 Test Item Value Reference Range Interpretation Comments Eosinophils (test code = Eosinophils) 3.8 <=4.0 [facility] HospitalSownnbuTHRGIMXXJQ7336-81-11 13:09:00 Test Item Value Reference Range Interpretation Comments Segs (test code = Segs) 58.0 45.0-75.0 [facility] HospitalUldfjolEKXLXCZCUO0460-40-44 13:09:00 Test Item Value Reference Range Interpretation Comments Eosinophils # (test code = Eosinophils 0.3 <=0.5 #) [facility] HospitalHnuwbenKOQXURGRWJ7172-00-85 13:09:00 Test Item Value Reference Range Interpretation Comments Monocytes # (test code = Monocytes #) 0.9 <=0.8 [facility] HospitalVounkmwUEUKSXIQAW7181-63-92 13:09:00 Test Item Value Reference Range Interpretation Comments Lymphocytes (test code = Lymphocytes) 27.9 20.0-40.0 [facility] HospitalGfxnxcwUZXSPWFPGI4805-35-41 13:09:00 Test Item Value Reference Range Interpretation Comments Monocytes (test code = Monocytes) 9.8 2.0-12.0 [facility]2015-08-10 13:09:00 Test Item Value Reference Range Interpretation Comments Ca Norm WB (test code = Ca Norm WB) 1.07 1.05-1.25 [facility]2015-08-10 13:09:00 Test Item Value Reference Range Interpretation Comments Ca Ion WB (test code = Ca Ion WB) 1.05 1.05-1.25 [facility] HospitalUntdrikSFAXZESESD2753-88-92 13:09:00 Test Item Value Reference Range Interpretation Comments Etoh (%) (test code = Etoh (%)) no gt [place] [id number] 13:09:00 Test Item Value Reference Range Interpretation Comments Ethanol Lvl (test code = Ethanol Lvl) no gt [facility]2015-08-10 10:25:00 Test Item Value Reference Range Interpretation Comments A/G Ratio (test code = A/G Ratio) 1.1 0.7-1.6 [facility]2015-08-10 10:25:00 Test Item Value Reference Range Interpretation Comments Globulin (test code = Globulin) 2.8 2.0-4.0 [facility]2015-08-10 10:25:00 Test Item Value Reference Range Interpretation Comments B/C Ratio (test code = B/C Ratio) 19 6-25 [facility]2015-08-10 10:25:00 Test Item Value Reference Range Interpretation Comments Alk Phos (test code = Alk Phos) 73 39-136 [facility]2015-08-10 10:25:00 Test Item Value Reference Range Interpretation Comments AST (test code = AST) 20 <=37 [facility]2015-08-10 10:25:00 Test Item Value Reference Range Interpretation Comments Bili Total (test code = Bili Total) 0.2 0.2-1.3 [facility]2015-08-10 10:25:00 Test Item Value Reference Range Interpretation Comments ALT (test code = ALT) 27 <=65 [facility]2015-08-10 10:25:00 Test Item Value Reference Range Interpretation Comments Albumin Lvl (test code = Albumin Lvl) 3.2 3.5-5.0 [facility]2015-08-10 10:25:00 Test Item Value Reference Range Interpretation Comments Total Protein (test code = Total 6.0 6.4-8.4 Protein) [facility] HospitalJysftqbSWTEEWFJSP4685-56-30 10:25:00 Test Item Value Reference Range Interpretation Comments Valproic Acid Lvl (test code = Valproic no gt 50-100 Acid Lvl) [facility]CkuncjyESZEGNIDJCSG2193-23-45 14:47:00 Test Item Value Reference Range Interpretation Comments AGAP (test code = AGAP) 10.0 10.0-20.0 [facility]KwbfdjeIUJTBZTMKNMZ6407-99-05 14:47:00 Test Item Value Reference Range Interpretation Comments Chloride Lvl (test code = Chloride Lvl) 103 95-109 [facility]VemptimJXTXJXSJAKOK0358-51-61 14:47:00 Test Item Value Reference Range Interpretation Comments Potassium Lvl (test code = Potassium 4.0 3.5-5.1 Lvl) [facility]EnxmgryIMYZMRKKNCUR1312-43-10 14:47:00 Test Item Value Reference Range Interpretation Comments Sodium Lvl (test code = Sodium Lvl) 138 135-145 [facility]KrrbhbgSNQVMOOZWEQK5127-40-51 14:47:00 Test Item Value Reference Range Interpretation Comments eGFR (test code = eGFR) 91 [facility] HospitalGscncxzKIIMZXFMXUIQ0745-12-84 14:47:00 Test Item Value Reference Range Interpretation Comments Glucose Lvl (test code = Glucose Lvl) 115 70-99 [facility] HospitalMzvwgacHCQKFCUAGJGT5822-55-84 14:47:00 Test Item Value Reference Range Interpretation Comments CO2 (test code = CO2) 29 24-32 [facility] HospitalCzhaxseQXALMUNTYAPW4477-53-76 14:47:00 Test Item Value Reference Range Interpretation Comments Calcium Lvl (test code = Calcium Lvl) 8.9 8.5-10.5 [facility] HospitalWrpnibdUVRKKQITSSYZ5379-60-70 14:47:00 Test Item Value Reference Range Interpretation Comments Creatinine Lvl (test code = Creatinine 1.0 0.5-1.4 Lvl) [facility] HospitalVoujodmRXXINNAYAMBY0285-79-34 14:47:00 Test Item Value Reference Range Interpretation Comments BUN (test code = BUN) 15 7-22 [facility] HospitalBloxfyhRJNDWDZHTO5093-94-25 14:47:00 Test Item Value Reference Range Interpretation Comments Segs (test code = Segs) 74.6 45.0-75.0 [facility] HospitalIqbbgowHBQPJOQMOD0160-75-16 14:47:00 Test Item Value Reference Range Interpretation Comments Lymphocytes # (test code = Lymphocytes 1.9 1.0-5.5 #) [facility] HospitalBlekikbNSRFWXXVBP6779-82-51 14:47:00 Test Item Value Reference Range Interpretation Comments Segs-Bands # (test code = Segs-Bands #) 10.8 1.5-8.1 [facility] HospitalUkxkwoaIKAQLDJJKB1035-72-91 14:47:00 Test Item Value Reference Range Interpretation Comments Eosinophils (test code = Eosinophils) 1.7 <=4.0 [facility] HospitalUjcnexsGGMDMWTRJN3769-88-25 14:47:00 Test Item Value Reference Range Interpretation Comments Basophils (test code = Basophils) 1.2 <=1.0 [facility] HospitalBcwckbqQTYMDPOPPV6763-60-45 14:47:00 Test Item Value Reference Range Interpretation Comments Monocytes (test code = Monocytes) 9.6 2.0-12.0 [facility] HospitalDszuxtqQCROJGFVHS6847-97-16 14:47:00 Test Item Value Reference Range Interpretation Comments Lymphocytes (test code = Lymphocytes) 12.9 20.0-40.0 [facility] HospitalQphpcocQARDWTDQSK2493-67-81 14:47:00 Test Item Value Reference Range Interpretation Comments Basophils # (test code = Basophils #) 0.2 <=0.2 [facility] HospitalXqltzdnXAABIBBUIN8189-49-59 14:47:00 Test Item Value Reference Range Interpretation Comments Eosinophils # (test code = Eosinophils 0.2 <=0.5 #) [facility] HospitalAbyhjflPYWBVBOSZR1357-32-04 14:47:00 Test Item Value Reference Range Interpretation Comments Monocytes # (test code = Monocytes #) 1.4 <=0.8 [facility] HospitalIwqvuunEQLRRSFXTO5093-29-80 14:47:00 Test Item Value Reference Range Interpretation Comments MCV (test code = MCV) 96.2 80.0-94.0 [facility] HospitalQvmovleUVBVJDSYEX7671-09-42 14:47:00 Test Item Value Reference Range Interpretation Comments MCH (test code = MCH) 32.8 pg 27.0-31.0 [facility] HospitalEbegfmkHMMMODXQQD3704-15-78 14:47:00 Test Item Value Reference Range Interpretation Comments Hct (test code = Hct) 43.9 42.0-54.0 [facility] HospitalUompyefFUUPYOIRXX4661-60-29 14:47:00 Test Item Value Reference Range Interpretation Comments MCHC (test code = MCHC) 34.1 32.0-36.0 [facility] HospitalBkubpwyMBETIEBKPQ6871-72-88 14:47:00 Test Item Value Reference Range Interpretation Comments WBC (test code = WBC) 14.5 3.7-10.4 [facility] HospitalYxkmijpLIXAHPOAED7033-39-59 14:47:00 Test Item Value Reference Range Interpretation Comments RBC (test code = RBC) 4.57 4.70-6.10 [facility] HospitalPkdwyajVHZTLMNKWE6043-59-21 14:47:00 Test Item Value Reference Range Interpretation Comments Hgb (test code = Hgb) 15.0 14.0-18.0 [facility] HospitalCchnbcqQVEOWQNEPH0503-56-94 14:47:00 Test Item Value Reference Range Interpretation Comments MPV (test code = MPV) 9.2 7.4-10.4 [facility] HospitalFeljxswHQYRVIQTIP2610-40-86 14:47:00 Test Item Value Reference Range Interpretation Comments RDW (test code = RDW) 13.3 11.5-14.5 [facility] HospitalXbaarghASNWGHZLFS9529-47-74 14:47:00 Test Item Value Reference Range Interpretation Comments Platelet (test code = Platelet) 207 133-450 [facility]DR[facility] [id number] 21:34:00 Test Item Value Reference Range Interpretation Comments U Opiate Scr (test Positive *ABN*(10/26/14 code = U Opiate Scr) 4:34 PM) [facility]DR[facility] [id number] 21:34:00 Test Item Value Reference Range Interpretation Comments U Phencyc Scr (test Negative *NA*(10/26/14 code = U Phencyc Scr) 4:34 PM) [facility] [id number] 21:34:00 Test Item Value Reference Range Interpretation Comments U Benzodia Scr (test Positive *ABN*(10/26/14 code = U Benzodia Scr) 4:34 PM) [facility] [id number] 21:34:00 Test Item Value Reference Range Interpretation Comments U Cannab Scr (test Negative *NA*(10/26/14 code = U Cannab Scr) 4:34 PM) [facility] [id number] 21:34:00 Test Item Value Reference Range Interpretation Comments U Cocaine Scr (test Negative *NA*(10/26/14 code = U Cocaine Scr) 4:34 PM) [facility] [id number] 21:34:00 Test Item Value Reference Range Interpretation Comments UDS Note (test code = See Note 5(10/26/14 4:34 UDS Note) PM) [facility] [id number] 21:34:00 Test Item Value Reference Range Interpretation Comments U Shi Scr (test code Negative *NA*(10/26/14 = U Shi Scr) 4:34 PM) [facility] [id number] 21:34:00 Test Item Value Reference Range Interpretation Comments U Amph Scr (test code Positive *ABN*(10/26/14 = U Amph Scr) 4:34 PM) [facility] [id number] 21:34:00 Test Item Value Reference Range Interpretation Comments UA Blood (test code = Negative (10/26/14 4:34 UA Blood) PM) [facility] [id number] 21:34:00 Test Item Value Reference Range Interpretation Comments UA Urobilinogen (test code = UA 0.2 0.1-1.0 Urobilinogen) [facility] [id number] 21:34:00 Test Item Value Reference Range Interpretation Comments UA Bili (test code = Negative *NA*(10/26/14 UA Bili) 4:34 PM) [facility] [id number] 21:34:00 Test Item Value Reference Range Interpretation Comments UA Nitrite (test code Negative (10/26/14 4:34 = UA Nitrite) PM) [facility] [id number] 21:34:00 Test Item Value Reference Range Interpretation Comments UA Leuk Est (test Negative (10/26/14 4:34 code = UA Leuk Est) PM) [facility] AND [id number] 21:34:00 Test Item Value Reference Range Interpretation Comments UA Color (test code = Yellow *NA*(10/26/14 UA Color) 4:34 PM) [facility] AND [id number] 21:34:00 Test Item Value Reference Range Interpretation Comments UA Turbidity (test code = Clear (10/26/14 4:34 UA Turbidity) PM) [facility] AND [id number] 21:34:00 Test Item Value Reference Range Interpretation Comments UA pH (test code = UA pH) 6.0 1 5.0-8.0 [facility] AND [id number] 21:34:00 Test Item Value Reference Range Interpretation Comments UA Protein (test code = UA Negative mg/dL Protein) [facility] AND [id number] 21:34:00 Test Item Value Reference Range Interpretation Comments UA Glucose (test code = UA Negative mg/dL Glucose) [facility] AND [id number] 21:34:00 Test Item Value Reference Range Interpretation Comments UA Spec Grav (test code = UA Spec 1.020 1 Grav) [facility] AND [id number] 21:34:00 Test Item Value Reference Range Interpretation Comments UA Ketones (test code = UA Negative mg/dL Ketones) [facility] AND [id number] 21:34:00 Test Item Value Reference Range Interpretation Comments UA WBC (test code = UA WBC) 0-2 /HPF [facility] AND [id number] 21:34:00 Test Item Value Reference Range Interpretation Comments UA RBC (test code = UA RBC) 0-2 /HPF <=2 [facility] AND [id number] 21:34:00 Test Item Value Reference Range Interpretation Comments UA Sq Epi (test code = UA Sq Epi) Few /LPF [facility]AC [id number] 20:43:00 Test Item Value Reference Range Interpretation Comments Total CK (test code = Total CK) 155 12-191 [facility] HospitalCARDIAC [id number] 20:43:00 Test Item Value Reference Range Interpretation Comments CK MB (test code = CK MB) 2.1 0.5-3.6 [facility]annC[facility] [id number] 20:43:00 Test Item Value Reference Range Interpretation Comments Troponin-I (test code = Troponin-I) no gt <=0.40 [facility]annCARD[facility]AC [id number] 20:43:00 Test Item Value Reference Range Interpretation Comments CK MB Index (test code = CK MB Index) 1.4 <=2.5 [facility] [employer] [id number] 20:43:00 Test Item Value Reference Range Interpretation Comments eGFR (test code = eGFR) 67 [facility] [employer] [id number] 20:43:00 Test Item Value Reference Range Interpretation Comments AGAP (test code = AGAP) 9.7 10.0-20.0 [facility] [employer] [id number] 20:43:00 Test Item Value Reference Range Interpretation Comments B/C Ratio (test code = B/C Ratio) 17 6-25 [facility] [employer] [id number] 20:43:00 Test Item Value Reference Range Interpretation Comments AST (test code = AST) 17 <=37 [facility] [employer] [id number] 20:43:00 Test Item Value Reference Range Interpretation Comments Total Protein (test code = Total 7.3 6.4-8.4 Protein) [facility] [employer] [id number] 20:43:00 Test Item Value Reference Range Interpretation Comments Globulin (test code = Globulin) 3.8 2.0-4.0 [facility] [employer] [id number] 20:43:00 Test Item Value Reference Range Interpretation Comments A/G Ratio (test code = A/G Ratio) 0.9 0.7-1.6 [facility] [employer] [id number] 20:43:00 Test Item Value Reference Range Interpretation Comments CO2 (test code = CO2) 27 24-32 [facility] [employer] [id number] 20:43:00 Test Item Value Reference Range Interpretation Comments Calcium Lvl (test code = Calcium Lvl) 8.6 8.5-10.5 [facility] [id number] 20:43:00 Test Item Value Reference Range Interpretation Comments Bili Total (test code = Bili Total) 0.3 0.2-1.3 [facility]2015-06-24 20:43:00 Test Item Value Reference Range Interpretation Comments Chloride Lvl (test code = Chloride Lvl) 104 95-109 [facility]2015-06-24 20:43:00 Test Item Value Reference Range Interpretation Comments Glucose Lvl (test code = Glucose Lvl) 103 70-99 [facility]2015-06-24 20:43:00 Test Item Value Reference Range Interpretation Comments Alk Phos (test code = Alk Phos) 100 39-136 [facility]2015-06-24 20:43:00 Test Item Value Reference Range Interpretation Comments BUN (test code = BUN) 22 7-22 [facility]2015-06-24 20:43:00 Test Item Value Reference Range Interpretation Comments Creatinine Lvl (test code = Creatinine 1.3 0.5-1.4 Lvl) [facility]2015-06-24 20:43:00 Test Item Value Reference Range Interpretation Comments Sodium Lvl (test code = Sodium Lvl) 137 135-145 [facility]2015-06-24 20:43:00 Test Item Value Reference Range Interpretation Comments Potassium Lvl (test code = Potassium 3.7 3.5-5.1 Lvl) [facility]2015-06-24 20:43:00 Test Item Value Reference Range Interpretation Comments ALT (test code = ALT) 30 <=65 [facility]2015-06-24 20:43:00 Test Item Value Reference Range Interpretation Comments Albumin Lvl (test code = Albumin Lvl) 3.5 3.5-5.0 [facility] HospitalViygazmZLCMBVJFEK2502-24-92 20:43:00 Test Item Value Reference Range Interpretation Comments INR (test code = INR) 0.94 0.85-1.17 [facility] Hosp[id number] 20:43:00 Test Item Value Reference Range Interpretation Comments PT (test code = PT) 12.5 s 12.0-14.7 [facility] Hospit[id number] 20:43:00 Test Item Value Reference Range Interpretation Comments MPV (test code = MPV) 8.9 7.4-10.4 [facility] HospitalOeaiehsWTPHAETCOD3490-50-06 20:43:00 Test Item Value Reference Range Interpretation Comments Platelet (test code = Platelet) 217 148-450 [facility] Hospit[id number] 20:43:00 Test Item Value Reference Range Interpretation Comments MCH (test code = MCH) 31.4 pg 27.0-31.0 [facility] HospitalNzcieroKPDHOADCCT0949-05-83 20:43:00 Test Item Value Reference Range Interpretation Comments RDW (test code = RDW) 13.6 11.5-14.5 [facility] HospitalAkoxkdoISBEPUOHQD8875-74-95 20:43:00 Test Item Value Reference Range Interpretation Comments MCHC (test code = MCHC) 32.7 32.0-36.0 [facility] Hospit[id number] 20:43:00 Test Item Value Reference Range Interpretation Comments Hct (test code = Hct) 45.6 42.0-54.0 [facility] HospitalUpqjyumAXBJKWEJHX9696-33-64 20:43:00 Test Item Value Reference Range Interpretation Comments MCV (test code = MCV) 96.3 80.0-94.0 [facility] HospitalQghekjgYEPHJZTMUH4380-21-50 20:43:00 Test Item Value Reference Range Interpretation Comments RBC (test code = RBC) 4.74 4.70-6.10 [facility] HospitalNedhddqOMMTPWSFGR8754-15-28 20:43:00 Test Item Value Reference Range Interpretation Comments Hgb (test code = Hgb) 14.9 14.0-18.0 [facility] HospitalZryoxfqEVISYITDET1553-66-16 20:43:00 Test Item Value Reference Range Interpretation Comments WBC (test code = WBC) 12.5 3.7-10.4 [facility] HospitalJkmpzzeEAYQGHGTSU6422-74-69 20:43:00 Test Item Value Reference Range Interpretation Comments Eosinophils # (test code = Eosinophils 0.3 <=0.5 #) [facility] HospitalButtyfsVXIEMGCIGD8924-51-08 20:43:00 Test Item Value Reference Range Interpretation Comments Basophils # (test code = Basophils #) 0.1 <=0.2 [facility] HospitalDvserzrLOYJIYBMGT7249-71-93 20:43:00 Test Item Value Reference Range Interpretation Comments Monocytes # (test code = Monocytes #) 1.3 <=0.8 [facility] HospitalBrevgqjRFIZZRCYFC5333-07-34 20:43:00 Test Item Value Reference Range Interpretation Comments Monocytes (test code = Monocytes) 10.1 2.0-12.0 [facility] HospitalIghmzifPNXJISBEMJ2266-15-71 20:43:00 Test Item Value Reference Range Interpretation Comments Lymphocytes (test code = Lymphocytes) 22.5 20.0-40.0 [facility]EexnfprVLVAWKBTYL8284-56-07 20:43:00 Test Item Value Reference Range Interpretation Comments Segs (test code = Segs) 64.1 45.0-75.0 [facility] HospitalJzjtypaPVLLMDXSLL1477-07-21 20:43:00 Test Item Value Reference Range Interpretation Comments Segs-Bands # (test code = Segs-Bands #) 8.0 1.5-8.1 [facility] HospitalWhqwbgoLLRINJHSVU1318-96-10 20:43:00 Test Item Value Reference Range Interpretation Comments Eosinophils (test code = Eosinophils) 2.6 <=4.0 [facility] HospitalOgncdbtFEELSQGFKP7862-90-67 20:43:00 Test Item Value Reference Range Interpretation Comments Lymphocytes # (test code = Lymphocytes 2.8 1.0-5.5 #) [facility] HospitalQkijtctHWYMZDGYUT7039-60-16 20:43:00 Test Item Value Reference Range Interpretation Comments Basophils (test code = Basophils) 0.[address] [facility] HospitalCstbkqnTBDQSJGUGN1210-65-64 20:43:00 Test Item Value Reference Range Interpretation Comments Valproic Acid Lvl (test code = Valproic 20 50-100 Acid Lvl) [facility] Cent[id number] 20:43:00 Test Item Value Reference Range Interpretation Comments Etoh (%) (test code = Etoh (%)) no gt [facility] CenterXfzbtwxBDNUJTVOZO3495-89-11 20:43:00 Test Item Value Reference Range Interpretation Comments Ethanol Lvl (test code = Ethanol Lvl) no gt [facility] CenterannCARDIAC [id number] 10:50:00 Test Item Value Reference Range Interpretation Comments CK MB Index (test code = CK MB Index) 1.3 <=2.5 [facility] CenterannCARDIAC [id number] 10:50:00 Test Item Value Reference Range Interpretation Comments CK MB (test code = CK MB) 1.3 0.5-3.6 [facility]annCARDIAC [id number] 10:50:00 Test Item Value Reference Range Interpretation Comments Troponin-I (test code = Troponin-I) no gt <=0.40 [facility] [id number] 10:50:00 Test Item Value Reference Range Interpretation Comments Total CK (test code = Total CK) 102 12-191 [facility] [id number] 10:50:00 Test Item Value Reference Range Interpretation Comments Troponin-T (test code = Troponin-T) no gt <=0.100 [facility] [id number] 02:22:00 Test Item Value Reference Range Interpretation Comments UDS Note (test code = See Note 4(07/19/14 9:22 UDS Note) PM) [facility] [id number] 02:22:00 Test Item Value Reference Range Interpretation Comments U Phencyc Scr (test Negative *NA*(07/19/14 code = U Phencyc Scr) 9:22 PM) [facility] [id number] 02:22:00 Test Item Value Reference Range Interpretation Comments U Cannab Scr (test Negative *NA*(07/19/14 code = U Cannab Scr) 9:22 PM) [facility] [id number] 02:22:00 Test Item Value Reference Range Interpretation Comments U Opiate Scr (test Negative *NA*(07/19/14 code = U Opiate Scr) 9:22 PM) [facility] [id number] 02:22:00 Test Item Value Reference Range Interpretation Comments U Amph Scr (test code Positive *ABN*(07/19/14 = U Amph Scr) 9:22 PM) [facility] [id number] 02:22:00 Test Item Value Reference Range Interpretation Comments U Benzodia Scr (test Positive *ABN*(07/19/14 code = U Benzodia Scr) 9:22 PM) [facility] [id number] 02:22:00 Test Item Value Reference Range Interpretation Comments U Shi Scr (test code Negative *NA*(07/19/14 = U Shi Scr) 9:22 PM) [facility] [id number] 02:22:00 Test Item Value Reference Range Interpretation Comments U Cocaine Scr (test Negative *NA*(07/19/14 code = U Cocaine Scr) 9:22 PM) [facility] [id number] 02:22:00 Test Item Value Reference Range Interpretation Comments UA Nitrite (test code Negative (07/19/14 9:22 = UA Nitrite) PM) [facility] AND [id number] 02:22:00 Test Item Value Reference Range Interpretation Comments UA Leuk Est (test Negative (07/19/14 9:22 code = UA Leuk Est) PM) [facility] AND [id number] 02:22:00 Test Item Value Reference Range Interpretation Comments UA Urobilinogen (test code = UA 0.2 0.1-1.0 Urobilinogen) [facility] AND [id number] 02:22:00 Test Item Value Reference Range Interpretation Comments UA Color (test code = Yellow *NA*(07/19/14 UA Color) 9:22 PM) [facility] AND [id number] 02:22:00 Test Item Value Reference Range Interpretation Comments UA Spec Grav (test code = UA Spec 1.042 1 Grav) [facility] AND [id number] 02:22:00 Test Item Value Reference Range Interpretation Comments UA Turbidity (test code = Clear (07/19/14 9:22 UA Turbidity) PM) [facility] AND [id number] 02:22:00 Test Item Value Reference Range Interpretation Comments UA pH (test code = UA pH) 6.0 1 5.0-8.0 [facility] AND [id number] 02:22:00 Test Item Value Reference Range Interpretation Comments UA Protein (test code Negative (07/19/14 9:22 = UA Protein) PM) [facility] AND [id number] 02:22:00 Test Item Value Reference Range Interpretation Comments UA Ketones (test code Negative *NA*(07/19/14 = UA Ketones) 9:22 PM) [facility] AND [id number] 02:22:00 Test Item Value Reference Range Interpretation Comments UA Glucose (test code Negative (07/19/14 9:22 = UA Glucose) PM) [facility] AND [id number] 02:22:00 Test Item Value Reference Range Interpretation Comments UA Bili (test code = Negative *NA*(07/19/14 UA Bili) 9:22 PM) [facility] AND [id number] 02:22:00 Test Item Value Reference Range Interpretation Comments UA Blood (test code = Negative (07/19/14 9:22 UA Blood) PM) [facility] [id number] 02:22:00 Test Item Value Reference Range Interpretation Comments UA Sq Epi (test code = UA Sq Epi) Rare /LPF [facility] [id number] 02:22:00 Test Item Value Reference Range Interpretation Comments UA RBC (test code = UA None Seen (07/19/14 9:22 <=2 RBC) PM) [facility] [id number] 02:22:00 Test Item Value Reference Range Interpretation Comments UA WBC (test code = UA WBC) 0-2 /HPF [facility] [id number] 02:22:00 Test Item Value Reference Range Interpretation Comments UA Bacteria (test code = None Seen (07/19/14 UA Bacteria) 9:22 PM) [facility] [employer] GroupannCHEM [id number] 23:53:00 Test Item Value Reference Range Interpretation Comments Phosphorus (test code = Phosphorus) 3.3 2.5-4.5 [facility] [employer] GroupannCHEM [id number] 23:53:00 Test Item Value Reference Range Interpretation Comments Magnesium Lvl (test code = Magnesium 1.7 1.8-2.4 Lvl) [facility] [id number] 23:53:00 Test Item Value Reference Range Interpretation Comments Valproic Acid Lvl (test code = Valproic 6 50-100 Acid Lvl) [facility] [employer] GroupannSegm[employer] [id number] 23:08:00 Test Item Value Reference Range Interpretation Comments eGFR (test code = eGFR) 41 [facility] [employer] GroupannCHEM [id number] 23:08:00 Test Item Value Reference Range Interpretation Comments POC Creatinine (test code = POC 1.3 0.5-1.4 Creatinine) [facility] [id number] 22:55:00 Test Item Value Reference Range Interpretation Comments CK MB Index (test code = CK MB Index) 0.9 <=2.5 [facility] [id number] 22:55:00 Test Item Value Reference Range Interpretation Comments Troponin-I (test code = Troponin-I) no gt <=0.40 [facility] [id number] 22:55:00 Test Item Value Reference Range Interpretation Comments Total CK (test code = Total CK) 141 12-191 [facility] CenterVarick Media ManagementAC [id number] 22:55:00 Test Item Value Reference Range Interpretation Comments CK MB (test code = CK MB) 1.3 0.5-3.6 [facility] [employer] [id number] 22:55:00 Test Item Value Reference Range Interpretation Comments Lactic Acid WB (test code = Lactic Acid 2.2 0.5-2.2 WB) [facility] [employer] [id number] 22:55:00 Test Item Value Reference Range Interpretation Comments A/G Ratio (test code = A/G Ratio) 1.1 0.7-1.6 [facility] [employer] [id number] 22:55:00 Test Item Value Reference Range Interpretation Comments AGAP (test code = AGAP) 10.8 10.0-20.0 [facility] [employer] [id number] 22:55:00 Test Item Value Reference Range Interpretation Comments Globulin (test code = Globulin) 3.3 2.0-4.0 [facility] [employer] [id number] 22:55:00 Test Item Value Reference Range Interpretation Comments B/C Ratio (test code = B/C Ratio) 16 6-25 [facility] [employer] [id number] 22:55:00 Test Item Value Reference Range Interpretation Comments eGFR (test code = eGFR) 73 [facility] CenterSense[facility] [id number] 22:55:00 Test Item Value Reference Range Interpretation Comments Total Protein (test code = Total 6.8 6.4-8.4 Protein) [facility] [employer] [id number] 22:55:00 Test Item Value Reference Range Interpretation Comments ALT (test code = ALT) 38 <=65 [facility] [employer] [id number] 22:55:00 Test Item Value Reference Range Interpretation Comments Albumin Lvl (test code = Albumin Lvl) 3.5 3.5-5.0 [facility] [employer] [id number] 22:55:00 Test Item Value Reference Range Interpretation Comments AST (test code = AST) 27 <=37 [facility] [employer] [id number] 22:55:00 Test Item Value Reference Range Interpretation Comments Bili Total (test code = Bili Total) 0.3 0.2-1.3 [facility]2015-03-17 22:55:00 Test Item Value Reference Range Interpretation Comments Alk Phos (test code = Alk Phos) 83 39-136 [facility]2015-03-17 22:55:00 Test Item Value Reference Range Interpretation Comments Chloride Lvl (test code = Chloride Lvl) 107 95-109 [facility]2015-03-17 22:55:00 Test Item Value Reference Range Interpretation Comments CO2 (test code = CO2) 25 24-32 [place] [id number] 22:55:00 Test Item Value Reference Range Interpretation Comments Calcium Lvl (test code = Calcium Lvl) 8.3 8.5-10.5 [facility]2015-03-17 22:55:00 Test Item Value Reference Range Interpretation Comments Creatinine Lvl (test code = Creatinine 1.2 0.5-1.4 Lvl) [facility]2015-03-17 22:55:00 Test Item Value Reference Range Interpretation Comments BUN (test code = BUN) 19 7-22 [place] [id number] 22:55:00 Test Item Value Reference Range Interpretation Comments Glucose Lvl (test code = Glucose Lvl) 82 70-99 [facility]2015-03-17 22:55:00 Test Item Value Reference Range Interpretation Comments Sodium Lvl (test code = Sodium Lvl) 139 135-145 [facility]2015-03-17 22:55:00 Test Item Value Reference Range Interpretation Comments Potassium Lvl (test code = Potassium 3.8 3.5-5.1 Lvl) [facility] [id number] 22:55:00 Test Item Value Reference Range Interpretation Comments Segs-Bands # (test code = Segs-Bands #) 5.0 1.5-8.1 [facility] Ho[id number] 22:55:00 Test Item Value Reference Range Interpretation Comments Basophils (test code = Basophils) 0.0 <=1.0 [facility] H[id number] 22:55:00 Test Item Value Reference Range Interpretation Comments Lymphocytes # (test code = Lymphocytes 2.7 1.0-5.5 #) [place] [id number] 22:55:00 Test Item Value Reference Range Interpretation Comments Monocytes (test code = Monocytes) 11.2 2.0-12.0 [place] 404305-03-17 22:55:00 Test Item Value Reference Range Interpretation Comments Lymphocytes (test code = Lymphocytes) 29.5 20.0-40.0 [place] 404305-03-17 22:55:00 Test Item Value Reference Range Interpretation Comments Eosinophils (test code = Eosinophils) 3.5 <=4.0 [place] 404305-03-17 22:55:00 Test Item Value Reference Range Interpretation Comments Segs (test code = Segs) 55.8 45.0-75.0 [facility] H[id number] 22:55:00 Test Item Value Reference Range Interpretation Comments Basophils # (test code = Basophils #) 0.0 <=0.2 [facility] HospitalQvybbycFBTYBCWGVR9969-30-07 22:55:00 Test Item Value Reference Range Interpretation Comments Eosinophils # (test code = Eosinophils 0.3 <=0.5 #) [facility] H[id number] 22:55:00 Test Item Value Reference Range Interpretation Comments Monocytes # (test code = Monocytes #) 1.0 <=0.8 [place] 404305-03-17 22:55:00 Test Item Value Reference Range Interpretation Comments PT (test code = PT) 12.5 s 12.0-14.7 [place] 404305-03-17 22:55:00 Test Item Value Reference Range Interpretation Comments INR (test code = INR) 0.94 0.85-1.17 [place] 404305-03-17 22:55:00 Test Item Value Reference Range Interpretation Comments PTT (test code = PTT) 26.6 s 22.9-35.8 [place] [id number] 22:55:00 Test Item Value Reference Range Interpretation Comments RDW (test code = RDW) 12.7 11.5-14.5 [place] 404305-03-17 22:55:00 Test Item Value Reference Range Interpretation Comments Platelet (test code = Platelet) 172 133-450 [facility] Hos[id number] 22:55:00 Test Item Value Reference Range Interpretation Comments MCHC (test code = MCHC) 33.9 32.0-36.0 [facility] Hospit[id number] 22:55:00 Test Item Value Reference Range Interpretation Comments MCH (test code = MCH) 32.3 pg 27.0-31.0 [facility] HospitalTbjqlipPPAQWCIQQY3022-43-67 22:55:00 Test Item Value Reference Range Interpretation Comments MCV (test code = MCV) 95.1 80.0-94.0 [facility] HospitalItplunhGIWEROCDVM2521-12-34 22:55:00 Test Item Value Reference Range Interpretation Comments Hct (test code = Hct) 42.4 42.0-54.0 [facility] HospitalMhesqloHZKZLHKDQY8144-83-80 22:55:00 Test Item Value Reference Range Interpretation Comments MPV (test code = MPV) 9.7 7.4-10.4 [facility] HospitalBggbzxeZWSXKSZMLN9528-84-91 22:55:00 Test Item Value Reference Range Interpretation Comments WBC (test code = WBC) 9.0 3.7-10.4 [facility] Hospit[id number] 22:55:00 Test Item Value Reference Range Interpretation Comments RBC (test code = RBC) 4.46 4.70-6.10 [facility] HospitalNsahbjgYQXBUMLOSS8662-55-54 22:55:00 Test Item Value Reference Range Interpretation Comments Hgb (test code = Hgb) 14.4 14.0-18.0 [facility]IzskfkkVEGUAJVRD5390-30-76 10:19:00 Test Item Value Reference Range Interpretation Comments AGAP (test code = AGAP) 13.8 10.0-20.0 N [facility] SouthQgjqzprHZHBDSVVC9616-94-57 10:19:00 Test Item Value Reference Range Interpretation Comments Globulin (test code = Globulin) 3.5 2.0-4.0 N [facility] SouthPiojdxuFLABEHJBS5488-53-63 10:19:00 Test Item Value Reference Range Interpretation Comments B/C Ratio (test code = B/C Ratio) 15 6-25 N [facility] SouthXfnvnkxWONNBVWPZ9581-93-28 10:19:00 Test Item Value Reference Range Interpretation Comments A/G Ratio (test code = A/G Ratio) 1.1 0.7-1.6 N [facility] SouthNmwemlcCFASTGCBS5526-85-47 10:19:00 Test Item Value Reference Range Interpretation Comments BUN (test code = BUN) 12 7-22 N [facility] SouthHfubkzhILAQCZJYG2912-98-93 10:19:00 Test Item Value Reference Range Interpretation Comments Creatinine Lvl (test code = Creatinine 0.8 0.5-1.4 N Lvl) [facility] SouthCgxweqhYNUIDLUTT3935-69-09 10:19:00 Test Item Value Reference Range Interpretation Comments Glucose Lvl (test code = Glucose Lvl) 81 [facility] SouthSdequheFSRRWIMQN8477-83-55 10:19:00 Test Item Value Reference Range Interpretation Comments Total Protein (test code = Total 7.4 6.4-8.4 N Protein) [facility] SouthAeaibblESBDJHWVY6014-78-75 10:19:00 Test Item Value Reference Range Interpretation Comments Bili Total (test code = Bili Total) 0.3 0.2-1.3 N [facility] SouthPmlxgawWEROIPWWW0026-26-64 10:19:00 Test Item Value Reference Range Interpretation Comments Calcium Lvl (test code = Calcium Lvl) 8.8 8.5-10.5 N [facility] SouthKvcrkczFNGCSYIKB2977-97-48 10:19:00 Test Item Value Reference Range Interpretation Comments AST (test code = AST) 22 <=37 N [facility] SouthAwapyziTJLATIMWW1321-35-02 10:19:00 Test Item Value Reference Range Interpretation Comments Sodium Lvl (test code = Sodium Lvl) 142 135-145 N [facility] SouthYirdtmmLRVMWZOOX8879-70-17 10:19:00 Test Item Value Reference Range Interpretation Comments Potassium Lvl (test code = Potassium 3.8 3.5-5.1 N Lvl) [facility] SouthLpeiqmyKDQUDHXOQ2394-35-11 10:19:00 Test Item Value Reference Range Interpretation Comments CO2 (test code = CO2) 24 24-32 N [facility] SouthHnzzomxLJAWVUMHM5259-80-27 10:19:00 Test Item Value Reference Range Interpretation Comments Chloride Lvl (test code = Chloride Lvl) 108 95-109 N [facility] SouthQyghygaYWSSXONGD0002-17-10 10:19:00 Test Item Value Reference Range Interpretation Comments Albumin Lvl (test code = Albumin Lvl) 3.9 3.5-5.0 N [facility] SouthYptmqjcNJCSLSILR7852-65-27 10:19:00 Test Item Value Reference Range Interpretation Comments Alk Phos (test code = Alk Phos) 79 39-136 N [facility] SouthYxdafnpFIYOMAITL3766-81-08 10:19:00 Test Item Value Reference Range Interpretation Comments ALT (test code = ALT) 41 <=65 N [facility] SouthJkqfhexZQXAMUBXP7192-33-96 10:19:00 Test Item Value Reference Range Interpretation Comments Magnesium Lvl (test code = Magnesium 1.9 1.8-2.4 N Lvl) [facility] SouthYvbxralIHOJSNIOV8596-15-24 10:19:00 Test Item Value Reference Range Interpretation Comments Phosphorus (test code = Phosphorus) 3.6 2.5-4.5 N [facility] HospitalNwchojgRKYZCZPVXY0009-24-17 10:19:00 Test Item Value Reference Range Interpretation Comments Hgb (test code = Hgb) 15.1 14.0-18.0 N [facility] HospitalUsyjdpjMWTOQOSFJV4577-27-87 10:19:00 Test Item Value Reference Range Interpretation Comments RBC (test code = RBC) 4.49 4.70-6.10 L [facility] HospitalLfvyfdxLEBXOVGQXN9720-58-19 10:19:00 Test Item Value Reference Range Interpretation Comments WBC (test code = WBC) 10.7 3.7-10.4 H [facility] HospitalOpnsiqfUKJHIBEVAL2465-83-70 10:19:00 Test Item Value Reference Range Interpretation Comments MCH (test code = MCH) 33.7 pg 27.0-31.0 H [facility] HospitalNlrepuvUPSGECXLPP0772-84-95 10:19:00 Test Item Value Reference Range Interpretation Comments MCV (test code = MCV) 97.3 80.0-94.0 H [facility] HospitalXanttrsMFVHUEIJIE7924-02-89 10:19:00 Test Item Value Reference Range Interpretation Comments RDW (test code = RDW) 13.5 11.5-14.5 N [facility] HospitalLwobixxLIGTZWPSGB5025-15-46 10:19:00 Test Item Value Reference Range Interpretation Comments Hct (test code = Hct) 43.8 42.0-54.0 N [facility] HospitalQguplecITVOPVKCVI7104-91-10 10:19:00 Test Item Value Reference Range Interpretation Comments MCHC (test code = MCHC) 34.6 32.0-36.0 N [facility] HospitalNcxshegTJXAQZNTBC2668-89-65 10:19:00 Test Item Value Reference Range Interpretation Comments MPV (test code = MPV) 9.1 7.4-10.4 N [facility] HospitalExojikyJDDNAIYEKJ6997-61-94 10:19:00 Test Item Value Reference Range Interpretation Comments Platelet (test code = Platelet) 226 133-450 N [facility] HospitalQiyxhtbFLEKPFYPER5551-04-33 10:19:00 Test Item Value Reference Range Interpretation Comments Lymphocytes # (test code = Lymphocytes 2.6 1.0-5.5 N #) [facility] HospitalPrcafigCXYCWJBZUK8711-50-61 10:19:00 Test Item Value Reference Range Interpretation Comments Eosinophils # (test code = Eosinophils 0.3 <=0.5 N #) [facility] HospitalLlixhwlGMAVKWMYRN5381-69-65 10:19:00 Test Item Value Reference Range Interpretation Comments Segs-Bands # (test code = Segs-Bands #) 6.7 1.5-8.1 N [facility] HospitalSlqolvjZMYIQLQYOV0076-85-60 10:19:00 Test Item Value Reference Range Interpretation Comments Monocytes # (test code = Monocytes #) 1.1 <=0.8 H [facility] HospitalMgazhpxNWEKBHKLFS7377-78-62 10:19:00 Test Item Value Reference Range Interpretation Comments Basophils # (test code = Basophils #) 0.0 <=0.2 N [facility] HospitalZmemplcBCENKAAYTG4321-20-40 10:19:00 Test Item Value Reference Range Interpretation Comments Lymphocytes (test code = Lymphocytes) 24.0 20.0-40.0 N [facility] HospitalJhyrcrgBWTDNHYEVP6728-84-94 10:19:00 Test Item Value Reference Range Interpretation Comments Segs (test code = Segs) 62.5 45.0-75.0 N [facility] HospitalQoonnpwEBCNGBRFJY0147-71-20 10:19:00 Test Item Value Reference Range Interpretation Comments Monocytes (test code = Monocytes) 10.5 2.0-12.0 N [facility] HospitalGzshtxiUURJFSNSGG4084-93-20 10:19:00 Test Item Value Reference Range Interpretation Comments Basophils (test code = Basophils) 0.4 <=1.0 N [facility] HospitalRvijkvfFIJEZJITDP4667-09-90 10:19:00 Test Item Value Reference Range Interpretation Comments Eosinophils (test code = Eosinophils) 2.6 <=4.0 N [facility] SouthItwylthNNAIBDSDK7459-45-77 10:11:00 Test Item Value Reference Range Interpretation Comments Phosphorus (test code = Phosphorus) 3.4 2.5-4.5 N [facility] SouthAhlaxcfPQSIJFRHZ8033-63-62 10:11:00 Test Item Value Reference Range Interpretation Comments Magnesium Lvl (test code = Magnesium 1.9 1.8-2.4 N Lvl) [facility] SouthIklrnmjAGUFJXCCX9535-61-05 10:11:00 Test Item Value Reference Range Interpretation Comments A/G Ratio (test code = A/G Ratio) 0.9 0.7-1.6 N [facility] SouthEropjpfAKJBUUHHX2101-31-25 10:11:00 Test Item Value Reference Range Interpretation Comments B/C Ratio (test code = B/C Ratio) 60 6-25 H [facility] SouthIwbuyzoYOQKKZTJY1377-79-21 10:11:00 Test Item Value Reference Range Interpretation Comments Globulin (test code = Globulin) 3.9 2.0-4.0 N [facility] SouthJcxxumqEQLFWBICQ7550-96-66 10:11:00 Test Item Value Reference Range Interpretation Comments AGAP (test code = AGAP) 16.3 10.0-20.0 N [facility] SouthTaolwitDJCNYMUXS9754-17-77 10:11:00 Test Item Value Reference Range Interpretation Comments Glucose Lvl (test code = Glucose Lvl) 102 [facility] SouthGunbkroTPLYXKNYA0338-33-71 10:11:00 Test Item Value Reference Range Interpretation Comments Creatinine Lvl (test code = Creatinine 0.2 0.5-1.4 L Lvl) [facility] SouthFhmrpncRGHPWZQIV1222-87-49 10:11:00 Test Item Value Reference Range Interpretation Comments BUN (test code = BUN) 12 7-22 N [facility] SouthFbokzkiNAFCGFFWE7568-57-55 10:11:00 Test Item Value Reference Range Interpretation Comments Albumin Lvl (test code = Albumin Lvl) 3.5 3.5-5.0 N [facility] SouthTgyxspnTDNLNLLVZ5896-44-26 10:11:00 Test Item Value Reference Range Interpretation Comments Alk Phos (test code = Alk Phos) 84 39-136 N [facility] SouthGemlbyfOKCOCTSPG1746-08-78 10:11:00 Test Item Value Reference Range Interpretation Comments ALT (test code = ALT) 39 <=65 N [facility] SouthJqtdyfhZZSVHDBDA1593-87-79 10:11:00 Test Item Value Reference Range Interpretation Comments Total Protein (test code = Total 7.4 6.4-8.4 N Protein) [facility] SouthNlghpbqMPGGPYDCC8478-40-28 10:11:00 Test Item Value Reference Range Interpretation Comments AST (test code = AST) 56 <=37 H [facility] SouthBgrpzxiLHXOTXCJB3877-42-24 10:11:00 Test Item Value Reference Range Interpretation Comments Bili Total (test code = Bili Total) 0.6 0.2-1.3 N [facility] SouthNejfnhyUWBYSGSOM9172-02-86 10:11:00 Test Item Value Reference Range Interpretation Comments CO2 (test code = CO2) 23 24-32 L [facility] SouthRcncatqLNBHECPMV8043-52-31 10:11:00 Test Item Value Reference Range Interpretation Comments Calcium Lvl (test code = Calcium Lvl) 8.8 8.5-10.5 N [facility] SouthGudearsOWZKDJIQA0747-22-08 10:11:00 Test Item Value Reference Range Interpretation Comments Sodium Lvl (test code = Sodium Lvl) 140 135-145 N [facility] SouthQhebqtvNPGQILODN8406-08-06 10:11:00 Test Item Value Reference Range Interpretation Comments Potassium Lvl (test code = Potassium 5.3 3.5-5.1 H Lvl) [facility] SouthLmxlybhINJYBDFRV3787-03-13 10:11:00 Test Item Value Reference Range Interpretation Comments Chloride Lvl (test code = Chloride Lvl) 106 95-109 N [facility] HospitalBwixlbfHQLKPRVUHL8837-69-73 10:11:00 Test Item Value Reference Range Interpretation Comments Basophils # (test code = Basophils #) 0.1 <=0.2 N [facility] HospitalFbiiveqZSJHUFVUUE2453-00-13 10:11:00 Test Item Value Reference Range Interpretation Comments Lymphocytes (test code = Lymphocytes) 23.5 20.0-40.0 N [facility] HospitalSqkscmaXTMWIHGQZY2259-69-71 10:11:00 Test Item Value Reference Range Interpretation Comments Segs (test code = Segs) 63.3 45.0-75.0 N [facility] HospitalIgpuxufYNFBBFKLVG2623-04-47 10:11:00 Test Item Value Reference Range Interpretation Comments Monocytes (test code = Monocytes) 9.8 2.0-12.0 N [facility] HospitalQdommijBBQEDOJKQH3924-50-57 10:11:00 Test Item Value Reference Range Interpretation Comments Eosinophils # (test code = Eosinophils 0.3 <=0.5 N #) [facility] HospitalJtyoiboXGIDXLTCTV0654-02-60 10:11:00 Test Item Value Reference Range Interpretation Comments Monocytes # (test code = Monocytes #) 1.0 <=0.8 H [facility] HospitalUaxdhgnTMCRYJGZCP0550-75-88 10:11:00 Test Item Value Reference Range Interpretation Comments Lymphocytes # (test code = Lymphocytes 2.3 1.0-5.5 N #) [facility] HospitalVgxmpjnJOUJXMCTDE5597-86-19 10:11:00 Test Item Value Reference Range Interpretation Comments Segs-Bands # (test code = Segs-Bands #) 6.1 1.5-8.1 N [facility] HospitalPxhbxyuFGPBUYHUEH4359-98-44 10:11:00 Test Item Value Reference Range Interpretation Comments Basophils (test code = Basophils) 0.7 <=1.0 N [facility]VzjlcelORJWIDYAQR1718-26-98 10:11:00 Test Item Value Reference Range Interpretation Comments Eosinophils (test code = Eosinophils) 2.7 <=4.0 N [facility] HospitalOymgpegKHTTYXUHPJ4380-63-60 10:11:00 Test Item Value Reference Range Interpretation Comments MCH (test code = MCH) 34.5 pg 27.0-31.0 H [facility] HospitalNdhaicvHWQIUHJMXM5252-66-83 10:11:00 Test Item Value Reference Range Interpretation Comments MCHC (test code = MCHC) 35.3 32.0-36.0 N [facility] HospitalZwmdffuPGZXEIJZZI5767-65-83 10:11:00 Test Item Value Reference Range Interpretation Comments MPV (test code = MPV) 9.0 7.4-10.4 N [facility] HospitalJaitpwjLIAULAFTOQ1468-34-75 10:11:00 Test Item Value Reference Range Interpretation Comments Platelet (test code = Platelet) 237 133-450 N [facility] HospitalHegiowyHXNPWTSNQQ8520-39-99 10:11:00 Test Item Value Reference Range Interpretation Comments RDW (test code = RDW) 13.4 11.5-14.5 N [facility] HospitalGcinytxPKSSZWYSPZ5588-64-13 10:11:00 Test Item Value Reference Range Interpretation Comments Hct (test code = Hct) 40.9 42.0-54.0 L [facility] HospitalLgcelcsPTZXJWWZGC1075-42-85 10:11:00 Test Item Value Reference Range Interpretation Comments MCV (test code = MCV) 97.8 80.0-94.0 H [facility] HospitalMoeouqfODMADUNKHW9459-16-42 10:11:00 Test Item Value Reference Range Interpretation Comments RBC (test code = RBC) 4.19 4.70-6.10 L [facility]MqadbkjIOBQTZCLAP1078-49-09 10:11:00 Test Item Value Reference Range Interpretation Comments Hgb (test code = Hgb) 14.4 14.0-18.0 N [facility] HospitalAagpsriUZENWEFNBE6215-45-27 10:11:00 Test Item Value Reference Range Interpretation Comments WBC (test code = WBC) 9.7 3.7-10.[address] HospitalXmofodcDRNCYZOIUW9225-14-95 10:11:00 Test Item Value Reference Range Interpretation Comments HIV 1/2 Ab (test code Negative *NA*(07/11/2011 = HIV 1/2 Ab) 04:11:00) [facility]UkaztddRHONWLNQC0620-82-17 13:02:00 Test Item Value Reference Range Interpretation Comments UDS Note (test code = See Note 7(07/10/2011 N UDS Note) 07:02:00) [facility]KwdkbmuUBWGIUPOW5836-07-69 13:02:00 Test Item Value Reference Range Interpretation Comments U Methadone Scr (test Negative code = U Methadone Scr) *NA*(07/10/2011 07:02:00) [facility] SouthYbazhrfUAOGVNSVL2865-33-75 13:02:00 Test Item Value Reference Range Interpretation Comments U Propoxyph Scr (test Negative code = U Propoxyph Scr) *NA*(07/10/2011 07:02:00) [facility] SouthAnyahivQRLSPWPII3213-03-36 13:02:00 Test Item Value Reference Range Interpretation Comments U Phencyc Scr (test Negative code = U Phencyc Scr) *NA*(07/10/2011 07:02:00) [facility] SouthEzhhpixEJULAYPVK2801-54-61 13:02:00 Test Item Value Reference Range Interpretation Comments U Opiate Scr (test Positive A code = U Opiate Scr) *ABN*(07/10/2011 07:02:00) [facility] SouthSefurpnXQYOKYVIW5438-55-32 13:02:00 Test Item Value Reference Range Interpretation Comments U Cannab Scr (test Negative code = U Cannab Scr) *NA*(07/10/2011 07:02:00) [facility] SouthTmwpvdyZHTKUVGXG4851-68-34 13:02:00 Test Item Value Reference Range Interpretation Comments U Cocaine Scr (test Negative code = U Cocaine Scr) *NA*(07/10/2011 07:02:00) [facility] HospitalLalgoviAAJGYPQWA8545-80-50 13:02:00 Test Item Value Reference Range Interpretation Comments U Benzodia Scr (test Positive A code = U Benzodia Scr) *ABN*(07/10/2011 07:02:00) [facility]VlvrujlWAGXQGIQR8320-39-07 13:02:00 Test Item Value Reference Range Interpretation Comments U Shi Scr (test code Negative *NA*(07/10/2011 = U Shi Scr) 07:02:00) [facility] HospitalWjpihlvMRRBVMZYC4232-98-94 13:02:00 Test Item Value Reference Range Interpretation Comments U Amph Scr (test code Negative *NA*(07/10/2011 = U Amph Scr) 07:02:00) [facility] HospitalFUNGAL - [id number] 13:02:00 Test Item Value Reference Range Interpretation Comments U Histo Ag (test code None Detected N = U Histo Ag) 2(07/10/2011 07:02:00) [facility] HospitalFUNGAL - [id number] 13:02:00 Test Item Value Reference Range Interpretation Comments U Hist Ag Intrp (test code = U Hist negative Ag Intrp) [facility] HospitalLbhpptjUQVRFWLBYB8918-62-11 13:02:00 Test Item Value Reference Range Interpretation Comments UA Urobilinogen (test code *NA*(07/10/2011 0.1-1.0 = UA Urobilinogen) 07:02:00) [facility] HospitalEaelojeCGUAYBWWTV2619-54-29 13:02:00 Test Item Value Reference Range Interpretation Comments Micro? (test code = Not Indicated Micro?) *NA*(07/10/2011 07:02:00) [facility] HospitalRlrwjkuWFWMAUGIHH3924-64-96 13:02:00 Test Item Value Reference Range Interpretation Comments UA Spec Grav (test code = UA Spec Grav) 1.[address] [facility] HospitalDbwlvycDGCZCTOYCK6286-70-04 13:02:00 Test Item Value Reference Range Interpretation Comments UA Protein (test code Negative mg/dL N = UA Protein) (07/10/2011 07:02:00) [facility] HospitalHsfawhnGNVWBCLGGC2453-08-35 13:02:00 Test Item Value Reference Range Interpretation Comments UA pH (test code = UA pH) 6.5 5.0-8.0 N [facility]AuvqjozEKVVSXQSHS5890-78-05 13:02:00 Test Item Value Reference Range Interpretation Comments UA Glucose (test code Negative mg/dL = UA Glucose) *NA*(07/10/2011 07:02:00) [facility] HospitalCyhmwacWFMZEQTLMC6688-95-73 13:02:00 Test Item Value Reference Range Interpretation Comments UA Blood (test code = Negative (07/10/2011 N UA Blood) 07:02:00) [facility] HospitalIzzxjlhUUUVFUMFDO9159-97-48 13:02:00 Test Item Value Reference Range Interpretation Comments UA Leuk Est (test Negative (07/10/2011 N code = UA Leuk Est) 07:02:00) [facility] HospitalVoitrekDWUKTNMNQZ9001-30-54 13:02:00 Test Item Value Reference Range Interpretation Comments UA Nitrite (test code Negative (07/10/2011 N = UA Nitrite) 07:02:00) [facility] HospitalTnayuttKVPTFTGJDO3639-79-38 13:02:00 Test Item Value Reference Range Interpretation Comments UA Ketones (test code Negative mg/dL = UA Ketones) *NA*(07/10/2011 07:02:00) [facility] HospitalJxrliaeOIIOMLPWQX1401-70-33 13:02:00 Test Item Value Reference Range Interpretation Comments UA Bili (test code = Negative *NA*(07/10/2011 UA Bili) 07:02:00) [facility] HospitalYuqbubrHIBDQMPRSK6639-72-07 13:02:00 Test Item Value Reference Range Interpretation Comments UA Turbidity (test code = Clear (07/10/2011 N UA Turbidity) 07:02:00) [facility] HospitalLiwgfdjZWCSSAOLEP4559-27-52 13:02:00 Test Item Value Reference Range Interpretation Comments UA Color (test code = Light Yellow UA Color) *NA*(07/10/2011 07:02:00) [facility]WljeizcCZCSVLVQH8453-32-85 09:00:00 Test Item Value Reference Range Interpretation Comments Lactic Acid Lvl (test code = Lactic 1.4 0.5-2.2 N Acid Lvl) [facility] SouthZzzsuaiIOXFJSAOS0812-00-01 09:00:00 Test Item Value Reference Range Interpretation Comments TSH (test code = TSH) 1.260 0.360-3.740 N [facility] SouthUhcloznSFWYJPYSW3926-81-97 09:00:00 Test Item Value Reference Range Interpretation Comments Magnesium Lvl (test code = Magnesium 2.0 1.8-2.4 N Lvl) [facility] SouthYpajsjvYVMFJIKCW4202-71-12 09:00:00 Test Item Value Reference Range Interpretation Comments Phosphorus (test code = Phosphorus) 3.0 2.5-4.5 N [facility] SouthFgzcnjwDDWFIKJDL8524-75-82 09:00:00 Test Item Value Reference Range Interpretation Comments A/G Ratio (test code = A/G Ratio) 1.2 0.7-1.6 N [facility] SouthLwjlhbjPYSBLRTUR9833-10-48 09:00:00 Test Item Value Reference Range Interpretation Comments AGAP (test code = AGAP) 15.2 10.0-20.0 N [facility] SouthJcsajjxEKFEKHYFF5925-84-68 09:00:00 Test Item Value Reference Range Interpretation Comments B/C Ratio (test code = B/C Ratio) 12 6-25 N [facility] SouthWmixlucCNJMHCZNF0141-06-67 09:00:00 Test Item Value Reference Range Interpretation Comments Globulin (test code = Globulin) 3.2 2.0-4.0 N [facility] SouthZgkizmcKPIYRDYEI6069-77-77 09:00:00 Test Item Value Reference Range Interpretation Comments ALT (test code = ALT) 37 <=65 N [facility] SouthFwxaxnxZABGPDGTF9978-97-42 09:00:00 Test Item Value Reference Range Interpretation Comments CO2 (test code = CO2) 27 24-32 N [facility] SouthXgqpjzqGXBUMKBMK9950-83-09 09:00:00 Test Item Value Reference Range Interpretation Comments Calcium Lvl (test code = Calcium Lvl) 8.6 8.5-10.5 N [facility] SouthCsebhogIVVCKLCYO5691-49-08 09:00:00 Test Item Value Reference Range Interpretation Comments AST (test code = AST) 22 <=37 N [facility] SouthVlkedfwJSSCQOZHH0554-80-50 09:00:00 Test Item Value Reference Range Interpretation Comments Total Protein (test code = Total 6.9 6.4-8.4 N Protein) [facility]XxgrjsbQVBBCHUAJ7957-74-76 09:00:00 Test Item Value Reference Range Interpretation Comments Chloride Lvl (test code = Chloride Lvl) 105 95-109 N [facility] SouthDlcygtuHCLDHYQRI2373-38-25 09:00:00 Test Item Value Reference Range Interpretation Comments Potassium Lvl (test code = Potassium 4.2 3.5-5.1 N Lvl) [facility] SouthNdkddbrAKXYECEJN7068-68-36 09:00:00 Test Item Value Reference Range Interpretation Comments Bili Total (test code = Bili Total) 0.3 0.2-1.3 N [facility] SouthKtildybIQXJSCRFG1914-06-32 09:00:00 Test Item Value Reference Range Interpretation Comments Albumin Lvl (test code = Albumin Lvl) 3.7 3.5-5.0 N [facility] SouthLgpioweBUBQAMNOH0529-61-70 09:00:00 Test Item Value Reference Range Interpretation Comments BUN (test code = BUN) 11 7-22 N [facility] SouthIcrbvpkBAYOTAPPX9529-08-35 09:00:00 Test Item Value Reference Range Interpretation Comments Creatinine Lvl (test code = Creatinine 0.9 0.5-1.4 N Lvl) [facility] SouthMuqhzsnEVEJCYVCZ6249-93-13 09:00:00 Test Item Value Reference Range Interpretation Comments Alk Phos (test code = Alk Phos) 87 39-136 N [facility] SouthDwhltdwODBPZAVQW1430-56-59 09:00:00 Test Item Value Reference Range Interpretation Comments Sodium Lvl (test code = Sodium Lvl) 143 135-145 N [facility] SouthFebngbfEWMHRIKAF0622-71-69 09:00:00 Test Item Value Reference Range Interpretation Comments Glucose Lvl (test code = Glucose Lvl) 102 [facility] HospitalWpcreqdSOBZGWIGUB0065-37-04 09:00:00 Test Item Value Reference Range Interpretation Comments Eosinophils # (test code = Eosinophils 0.4 <=0.5 N #) [facility] HospitalBzznpliIQWMAFUDEA4323-37-67 09:00:00 Test Item Value Reference Range Interpretation Comments Eosinophils (test code = Eosinophils) 3.0 <=4.0 N [facility] HospitalCozavtpMZOUPXWGPK1616-62-31 09:00:00 Test Item Value Reference Range Interpretation Comments Lymphocytes # (test code = Lymphocytes 2.0 1.0-5.5 N #) [facility] HospitalGaadwjwQXINFLXSQJ7748-58-94 09:00:00 Test Item Value Reference Range Interpretation Comments Segs-Bands # (test code = Segs-Bands #) 8.0 1.5-8.1 N [facility] HospitalBoomkjaQNOGNNRPCL9276-71-28 09:00:00 Test Item Value Reference Range Interpretation Comments Monocytes # (test code = Monocytes #) 1.3 <=0.8 H [facility] HospitalJhvzmefRESSNWBYNV4741-94-05 09:00:00 Test Item Value Reference Range Interpretation Comments Macrocyte (test code = 1+ *ABN*(07/10/2011 A Macrocyte) 03:00:00) [facility] HospitalYphvnfcNAXLBLSZYT7191-46-64 09:00:00 Test Item Value Reference Range Interpretation Comments Monocytes (test code = Monocytes) 11.0 2.0-12.0 N [facility] HospitalZnwvvopCXRVPFVQYM3538-64-59 09:00:00 Test Item Value Reference Range Interpretation Comments Basophils (test code = Basophils) 0.3 <=1.0 N [facility] HospitalHzymmbpPYUFRPBXGH8500-52-03 09:00:00 Test Item Value Reference Range Interpretation Comments Basophils # (test code = Basophils #) 0.0 <=0.2 N [facility] HospitalPtqlkgzDGLFLCZJYN0335-48-22 09:00:00 Test Item Value Reference Range Interpretation Comments Segs (test code = Segs) 68.9 45.0-75.0 N [facility] HospitalZhsyxmxAQPNYYOJVV8636-12-64 09:00:00 Test Item Value Reference Range Interpretation Comments Lymphocytes (test code = Lymphocytes) 16.8 20.0-40.0 L [facility] HospitalPpusyevEQCMYICTTU0722-26-85 09:00:00 Test Item Value Reference Range Interpretation Comments RDW (test code = RDW) 13.4 11.5-14.5 N [facility] HospitalIioytrlEYQSAJCTPQ8115-10-82 09:00:00 Test Item Value Reference Range Interpretation Comments Platelet (test code = Platelet) 188 133-450 N [facility] HospitalGvlyzzxBFROFUMTSU6802-21-70 09:00:00 Test Item Value Reference Range Interpretation Comments MPV (test code = MPV) 9.5 7.4-10.4 N [facility] HospitalQchjqtnOIMFQQHMTD5778-22-92 09:00:00 Test Item Value Reference Range Interpretation Comments MCH (test code = MCH) 34.2 pg 27.0-31.0 H [facility] HospitalBafrtzfAHTWNGBGCQ9102-72-59 09:00:00 Test Item Value Reference Range Interpretation Comments MCHC (test code = MCHC) 34.0 32.0-36.0 N [facility] HospitalOtaflbiQCVAUTTRLE9153-20-04 09:00:00 Test Item Value Reference Range Interpretation Comments MCV (test code = MCV) 100.5 80.0-94.0 H [facility] HospitalZhpevgnLAHVZSCITU3746-21-22 09:00:00 Test Item Value Reference Range Interpretation Comments Hct (test code = Hct) 39.9 42.0-54.0 L [facility] HospitalWvecnxoPIPWTWDWRV8884-54-84 09:00:00 Test Item Value Reference Range Interpretation Comments Hgb (test code = Hgb) 13.6 14.0-18.0 L [facility] HospitalGuzfwbeBNAUHTUQUW7302-85-63 09:00:00 Test Item Value Reference Range Interpretation Comments RBC (test code = RBC) 3.97 4.70-6.10 L [facility] HospitalJiiyvufCIUTOGJGYQ2221-81-82 09:00:00 Test Item Value Reference Range Interpretation Comments WBC (test code = WBC) 11.7 3.7-10.4 [facility]YjisvhySswxchgnehdd3988-66-98 08:33:00 Test Item Value Reference Range Interpretation Comments Culture: Respiratory w/Gram Stain (test code = Culture: Respiratory w/Gram Stain) [facility]FrrbjjeQQSBTNDDX7616-09-46 01:18:00 Test Item Value Reference Range Interpretation Comments Bili Direct (test code = Bili Direct) 0.1 <=0.3 N [facility] SouthXytlcxtQUJXFDDYV1530-38-49 01:18:00 Test Item Value Reference Range Interpretation Comments Bili Indirect (test code = Bili 0.1 <=1.0 N Indirect) [facility] SouthIciqzgmLJTYGSGOQ4776-14-32 01:18:00 Test Item Value Reference Range Interpretation Comments LDH (test code = LDH) 313 98-192 H [facility] SouthNsxbufaRHEQJXZEU3942-77-90 22:35:00 Test Item Value Reference Range Interpretation Comments Lactic Acid Lvl (test code = Lactic 0.7 0.5-2.2 N Acid Lvl) [facility] HospitalNatxyeuJOLUWPCHSY7179-91-36 22:35:00 Test Item Value Reference Range Interpretation Comments Plt Morph (test code = Normal (07/09/2011 N Plt Morph) 16:35:00) [facility] HospitalJwmxxmoWMVGXYJPRF9865-62-65 22:35:00 Test Item Value Reference Range Interpretation Comments RBC Morph (test code = Normal (07/09/2011 N RBC Morph) 16:35:00) [facility] CenterTodqxcuVrltzgkgurfv6979-34-93 22:15:00 Test Item Value Reference Range Interpretation Comments Culture: Blood (test code = Culture: Blood) [facility] [place] - IXLJUKQJ2496-08-49 13:02:00 Test Item Value Reference Range Interpretation Comments U Legion Ag (test code Negative 1(07/09/2011 N = U Legion Ag) 07:02:00) [facility] Consult Notes Date/Time Note Provider Source 2022-11-28 14:03:18 [id number]:03:18Associated Order(s): [facility] - [facility] CONS[facility]/Critical Care MedicineInterventional PulmonologyChief Complaint: Shortness of breathSubjective: Owen Ramirez is a 52 year old male with chronic respiratory failure and chronic oxygen use presenting with slowly worsening shortness of breath for several months and worse in the past couple weeks. Recently had a sinus infection. Associated with cough. Since admission patient does not really feel a whole lot better. At baseline he is not on any respiratory medications.Past Histories: I have reviewed and updated the following as appropriate: past medical history, past surgical history, family history, social history.Objective:BP (!) 161/88 | Pulse 93 | Temp 36.7 ?C (98 ?F) | Resp 19 | Ht 6' (1.829 m) | Wt 300 lb 14.4 oz (136.5 kg) | SpO2 93% | BMI 40.81 kg/m? Physical ExamConstitutional: Appearance: Normal appearance. Cardiovascular: Rate and Rhythm: Normal rate and regular rhythm. Pulmonary: Effort: Pulmonary effort is normal. No respiratory distress. Skin: General: Skin is warm and dry. Neurological: Mental Status: He is alert. Labs/Studies:WBC 12.41 Hgb 13.6 Plts 169Na 135 K 4.6 Cl 96 CO2 34 BUN 16 Cr 0.71 Glu 213CT thorax - no acute or chronic pulmonary embolism, mild emphysematous changesSleep study - severe OSAAssessment:Owen Ramirez is a 52 year old male with acute on chronic hypoxic respiratory failure likely due to COPD exacerbation and possible superimposed chronic diastolic heart failure. Other contributing factors are RADHA and morbid obesity.Plan:Would complete prednisone 40 mg x 5 daysWould complete course of antibiotics such as doxycyclineDiuresis as per primary teamWean oxygen as toleratedWould ensure patient is on a regimen as an outpatient including LABA/ICSOutpatient pulmonary function testOutpatient split night or titration [place] [address]809-6Wrufgst kkdrQD1423-19-78A04:20:51Consult [id number] 9|[id number] for patient [address] Fp[id number] UPYFNKCTSJZQHNFJ9658-99-87J81:20:511.2.840 .[id number]|[id number]. [id number] History and Physical Notes Date/Time Note Provider Source 2022-11-27 21:07:40 [id number]:07:40Formatting of this note [facility] is different from the original.MEDICINE [facility] ADMIT H&PDate of Service: 3CHIEF COMPLAINT: shortness of breathHistory of Present [age]pclxig11 yo obese male with chronic respiratory failure, CHF, COPD, DM, HLD, HTN, CAD, PE who presents to the ED secondary to progressive worsened shortness of breath, chest pain for the past 4-5 days. He states that his oxygen levels are going down with this. It was going from 94% to 92%. He notes having intermittent chest pain about 3-4 times a week. He describes mid-sternal to left side and stabbing pain. Associated symptoms: dyspnea.CardiologistPAST MEDICAL HISTORY Past Medical History: Diagnosis Date CHF (congestive heart failure) COPD (chronic obstructive pulmonary disease) Diabetes mellitus Hyperlipidemia Hypertension Myocardial infarction 05/08/2021 Obesity 07/2021 Pulmonary embolus 2021 Past Surgical History: Procedure Laterality Date CORONARY STENT 05/08/2021 SPINE SURGERY WRIST ARTHRODESIS Right 09/04/2020 Surgeon: Douglas Hernandez MD; Location: [facility] OR Location Family History Problem Relation Age of Onset Dementia Mother Coronary Heart Disease Father ALLERGIESAllergies Allergen Reactions Restoril [Temazepam] Hallucinations Sulfa (Sulfonamide Antibiotics) Itching Toradol [Ketorolac Tromethamine] Itching Tramadol Itching Trazodone Hallucinations MEDICATIONSNo current facility-administered medications on file prior to encounter. Current Outpatient Medications on File Prior to Encounter Medication Sig Dispense Refill albuterol 2.5 mg/0.5 mL nebulizer solution Inhale 0.5 mL every 6 (six) hours as needed for Wheezing. 1 Each 12 benzonatate 100 mg capsule Take 1 capsule by mouth 3 (three) times daily as needed for Cough. 14 capsule 0 albuterol 90 mcg/actuation inhaler Inhale 2 Puffs every 4 (four) hours as needed for Wheezing or Shortness of Breath. 8.5 g 12 furosemide 40 mg tablet Take 1 tablet by mouth 2 (two) times daily as needed for Other (Swelling). PRN edema (Patient taking differently: Take 1 tablet by mouth in the morning and 1 tablet in the evening.) 180 tablet 3 predniSONE 10 mg tablet Take four tablets daily for three days, take three tablets daily for three days, take two tablets daily for three days, take one tablet daily for three days 30 tablet 0 amitriptyline 100 mg tablet TAKE 1 TABLET BY MOUTH AT BEDTIME (Patient taking differently: Take 0.5 tablets by mouth at bedtime.) 30 tablet 0 apixaban (ELIQUIS) 5 mg tablet Take 1 tablet by mouth in the morning and 1 tablet in the evening. Indications: PE 180 tablet 3 atorvastatin 10 mg tablet Take 1 tablet by mouth at bedtime. 90 tablet 3 fluticasone propion-salmeteroL (ADVAIR DISKUS) 250-50 mcg/dose inhalation disk Inhale 1 Puff every 12 (twelve) hours. 1 Each 10 KCL 10 mEq tablet Take 1 tablet by mouth in the morning. Take with Lasix 90 tablet 0 lisinopriL 20 mg tablet Take 1 tablet by mouth in the morning. 90 tablet 3 metFORMIN 500 mg tablet Take 1 tablet by mouth in the morning and 1 tablet in the evening. Take with meals. 180 tablet 3 carisoprodoL 350 mg tablet Take 1 tablet by mouth in the morning and 1 tablet at noon and 1 tablet in the evening. CARVEDILOL 3.125 mg tablet TAKE 1 TABLET BY MOUTH IN THE MORNING AND IN THE EVENING WITH MEALS 60 tablet 6 budesonide 0.5 mg/2 mL nebulizer solution Inhale 2 mL 2 (two) times daily. 2 mL 25 HYDROcodone-acetaminophen 10-325 mg tablet Take 1 tablet by mouth every 6 (six) hours as needed for Pain (scale 7-10). nitroglycerin 0.[address] 1 tablet under the tongue every 5 (five) minutes as needed for Chest pain. 25 tablet 0 doxycycline hyclate 100 mg tablet Take 1 tablet by mouth in the morning and 1 tablet in the evening. 14 tablet 0 levoFLOXacin (LEVAQUIN) 750 mg tablet Take 1 tablet by mouth every 24 (twenty-four) hours. 6 tablet 0 I attest that the foregoing medication list in the medical record is true, accurate and complete to the best of my knowledge.SOCIAL HISTORYSocial History Socioeconomic History Marital status: Spouse name: Kaleigh Carrero Number of children: 2 Years of education: 12 Highest education level: High school graduate Occupational History Occupation: unemployed Tobacco Use Smoking status: Some Days Packs/day: 0.25 Years: 20.00 Total pack years: 5.00 Types: Cigarettes Passive exposure: Current Smokeless tobacco: Current Types: Chew Tobacco comments: Smokes one cigarette/day patient reports "dipping" more than anything Vaping Use Vaping Use: Former Substance and Sexual Activity Alcohol use: Yes Comment: 1 beers every day Drug use: Never Sexual activity: Yes Partners: Female 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 HENT: Positive for sore throat. Negative for congestion, dental problem, drooling, ear discharge, ear pain, facial swelling, hearing loss, mouth sores, nosebleeds, postnasal drip, rhinorrhea, sinus pressure, sneezing, tinnitus, trouble swallowing and voice change. Eyes: Positive for visual disturbance. Negative for photophobia, pain, discharge, redness and itching. Respiratory: Positive for cough and shortness of breath. Negative for apnea, choking, chest tightness, wheezing and stridor. Breasts: Negative. Cardiovascular: Positive for chest pain. Negative for palpitations and leg swelling. Gastrointestinal: Positive for abdominal pain and nausea. Negative for abdominal distention, anal bleeding, blood in stool, constipation, diarrhea, rectal pain and vomiting. Genitourinary: Negative. Musculoskeletal: Positive for arthralgias, back pain and myalgias. Negative for gait problem, joint swelling, neck pain and neck stiffness. Skin: Negative. Neurological: Positive for headaches. Negative for dizziness, tremors, seizures, syncope, facial asymmetry, speech difficulty, weakness, light-headedness and numbness. Psychiatric/Behavioral: Negative. Endocrine: Endocrine negativePHYSICAL EXAMINATIONVitals: 11/27/22 1712 11/27/[id number]/222009 BP: 122/71 BP Location: Right arm Patient Position: Supine Pulse: 84 84 93 Resp: 18 18 22 Temp: 36.9 ?C (98.4 ?F) TempSrc: SpO2: 92% 92% 91% Weight: 136.5 kg (300 lb 14.4 oz) Height: 1.829 m (6') Physical ExamVitals and nursing note reviewed. Constitutional: General: He is not in acute distress. Appearance: Normal appearance. He is not ill-appearing, toxic-appearing or diaphoretic. HENT: Head: Normocephalic and atraumatic. Right Ear: External ear normal. Left Ear: External ear normal. Nose: Nose normal. No congestion. Mouth/Throat: Mouth: Mucous membranes are moist. Pharynx: No oropharyngeal exudate. Eyes: General: No scleral icterus. Extraocular Movements: Extraocular movements intact. Conjunctiva/sclera: Conjunctivae normal. Pupils: Pupils are equal, round, and reactive to light. Cardiovascular: Rate and Rhythm: Normal rate and regular rhythm. Heart sounds: No murmur heard. No friction rub. No gallop. Pulmonary: Effort: Pulmonary effort is normal. No respiratory distress. Breath sounds: Normal breath sounds. No wheezing or rales. Chest: Chest wall: No tenderness. Abdominal: General: Abdomen is flat. Bowel sounds are normal. There is no distension. Palpations: Abdomen is soft. Tenderness: There is no abdominal tenderness. There is no guarding. Musculoskeletal: General: Normal range of motion. Cervical back: Normal range of motion and neck supple. Right lower leg: Edema (trace) present. Left lower leg: Edema (trace) present. Skin: General: Skin is warm and dry. Neurological: Mental Status: He is alert. Psychiatric: Mood and Affect: Mood normal. Behavior: Behavior normal. Thought Content: Thought content normal. Judgment: Judgment normal. LABS - reviewed pertinent labs as below:ReviewedIMAGING - reviewed, pertinent results as below: EXAM: XR CHEST 1 VW HISTORY: 52 years-old Male; Provided indication: sob . TECHNIQUE: Single frontal view of the chest. COMPARISON: Radiograph dated 11/24/2022 FINDINGS: Left-sided chest wall pacemaker is in place with the leads projecting overthe right atrium and right ventricle. Normal lung volumes. Diffuse interstitial prominence without overt edema.No pleural effusion or pneumothorax. The cardiomediastinal silhouette is normal in size accounting fortechnique. No focal osseous lesions or acute osseous findings are detected. IMPRESSION Diffuse interstitial prominence without overt edema. No focalconsolidations.EKG: normal sinusASSESSMENT/PLANSgautamcharly Ramirez is a 52 year old male with PMH as listed above, admitted to the hospital with:Acute on chronic respiratory failure:-- Will treat underlying condition-- Oxygen supplementation as neededCOPD exacerbation:-- Will check procalcitonin, holding antibiotics at this time.-- Will continue with duoneb scheduled/prn-- Oxygen supplementation as needed-- Will start intravenous steroids.pulmicort-- Will order for other supportive therapy (eg, anti-tussive, decongestant)Chronic diastolic congestive heart failure: close to euvolemia-- Will continue with lasix 40 mg daily-- Will continue with coreg, lisinoprilDM:-- Will continue with insulin sliding scaleHTN: controlled-- Will continue with lisinopril with holding parametersHLD:-- Will check AM lipid panelCurrent smoker: spoke for greater than 3 minutes about smoking cessation. At this time, patient refuse smoking cessation therapy.Prophylaxis: DVT- On EliquisCode Status: addressed: FC 59264-9Oxnqaqo and physical [id number]:45:58History and physical [id number] for patient [address] [id number] [id number]. [id number]
[2023-03-17 16:08] LABS: Potassium 3.9 mEq/L (3.5-5.1); Troponin High Sensitivity 9.3 pg/mL (<58.9)
--- NOTE | 2023-03-17 16:40 | RAD REPORT ---
EXAM DESCRIPTION: Kiki Single View03/17/2023 4:34 pm CLINICAL HISTORY: Chest pain COMPARISON: 2021 FINDINGS: The lungs appear clear of acute infiltrate. The heart is normal size. Pacemaker leads in place IMPRESSION: No acute abnormalities displayed
--- NOTE | 2023-03-17 18:11 | RAD REPORT ---
EXAM DESCRIPTION: CT - Chest For Pe Angio - 03/17/2023 5:45 pm CLINICAL HISTORY: Chest pain COMPARISON: 2021 TECHNIQUE: Dynamically enhanced axial 3 mm thick images of the chest were obtained during administra tion of 100 mL Isovue 370 IV contrast. Coronal and oblique reconstruction images were generated and r eviewed. Exam utilizes a protocol for optimal evaluation of pulmonary arterial tree. Maximum intensity projections 3D imaging was utilized All CT scans are performed using dose optimization technique as appropriate and may include automated exposure control or mA/KV adjustment according to patient size. FINDINGS: A pulmonary embolus is not seen. A thoracic aortic aneurysm is not noted. A pleural effusion is not seen. A pericardial effusion is not seen. A lung consolidation is not present. Upper lobe blebs IMPRESSION: Negative for a pulmonary embolism.
--- NOTE | 2023-03-17 18:14 | ER ---
Nurse's Notes [facility] Name: Owen Duarte Age: 52 yrs Sex: Male : 1970 Arrival Date: 03/17/2023 Time: 15:08 Bed 16 Private MD: Diagnosis: Dyspnea;Chest pain, unspecified Presentation: 03/17 15:42 Chief complaint: Patient states: I have been having chest pain and coughing up blood. ko1 Coronavirus screen: At this time, the client does not indicate any symptoms associated with coronavirus-19. Ebola Screen: No symptoms or risks identified at this time. Initial Sepsis Screen: Does the patient meet any 2 criteria? No. Patient's initial sepsis screen is negative. Does the patient have a suspected source of infection? No. Patient's initial sepsis screen is negative. Risk Assessment: Do you want to hurt yourself or someone else? Patient reports no desire to harm self or others. Onset of symptoms was March 17, 2023. 15:42 Method Of Arrival: Ambulatory ko1 15:42 Acuity: IRON 3 ko1 Triage Assessment: 15:45 General: Appears in no apparent distress. Behavior is calm, cooperative, appropriate ko1 for age. Pain: Complains of pain in chest. Cardiovascular: Reports chest pain. Historical: - Allergies: 15:45 PENICILLINS; ko1 15:45 Sulfa (Sulfonamide Antibiotics); ko1 - PMHx: 15:45 Asthma; COPD; diabetes mellitus; heart attack; Hypercholesterolemia; Hypertensive ko1 disorder; Pacemaker; - Immunization history:: Adult Immunizations unknown. - Social history:: Smoking status: Patient/guardian denies using tobacco. Screenin:30 [facility] [place] ED Fall Risk Assessment (Adult) History of falling in the last 3 months, ko1 including since admission No falls in past 3 months (0 pts) Confusion or Disorientation No (0 pts) Intoxicated or Sedated No (0 pts) Impaired Gait No (0 pts) Mobility Assist Device Used No (0 pt) Altered Elimination No (0 pt) Score/Fall Risk Level 0 - 2 = Low Risk Oriented to surroundings, Maintained a safe environment, Educated pt \T\ family on fall prevention, incl call for assistance when getting out of bed, Assessed \T\ reinforced patient's understanding of fall precautions, Provided non-skid footwear, Hourly rounding (assess needs \T\ fall precautionary measures) done, Used ambulatory aids as needed (educated on \T\ assisted with), Used gait belt as appropriate. Abuse screen: Denies threats or abuse. Denies injuries from another. Nutritional screening: No deficits noted. Tuberculosis screening: No symptoms or risk factors identified. Assessment: 16:30 General: Appears in no apparent distress. uncomfortable, Behavior is calm, cooperative, ko1 appropriate for age. Pain: Pain does not radiate. Pain began gradually. Neuro: No deficits noted. Cardiovascular: Reports chest pain. Respiratory: Reports cough that is productive. GI: No deficits noted. : No deficits noted. EENT: No deficits noted. Derm: No deficits noted. Musculoskeletal: No deficits noted. 19:00 General: Appears in no apparent distress. comfortable, well developed, Behavior is pf1 calm, cooperative, appropriate for age, quiet. 19:00 Pain: Complains of pain in chest Pain currently is 8 out of 10 on a pain scale. Pain pf1 began 2-3 days ago. Neuro: No deficits noted. Level of Consciousness is awake, alert, obeys commands, Oriented to person, place, time, situation. Cardiovascular: Reports chest pain, shortness of breath. Respiratory: Reports shortness of breath cough that is with coughing up blood Airway is patent Respiratory effort is even, unlabored, Respiratory pattern is regular, symmetrical. GI: No deficits noted. No signs and/or symptoms were reported involving the gastrointestinal system. : No deficits noted. No signs and/or symptoms were reported regarding the genitourinary system. 20:00 Reassessment: Patient appears in no apparent distress at this time. Patient and/or pf1 family updated on plan of care and expected duration. Pain level reassessed. Patient is alert, oriented x 3, equal unlabored respirations, skin warm/dry/pink. 21:00 Reassessment: Patient appears in no apparent distress at this time. Patient and/or pf1 family updated on plan of care and expected duration. Pain level reassessed. Patient is alert, oriented x 3, equal unlabored respirations, skin warm/dry/pink. Patient states symptoms have improved. Vital Signs: 15:42 BP 136 / 95; Pulse 85; Resp 18; Temp 98; Pulse Ox 97% ; ko1 16:00 BP 128 / 70; Pulse 80; Resp 18; Pulse Ox 97% on R/A; ko1 17:00 BP 143 / 87; Pulse 74; Resp 16; Pulse Ox 96% on R/A; ko1 18:00 BP 142 / 84; Pulse 80; Resp 16; Pulse Ox 98% on R/A; ko1 19:00 BP 151 / 82; Pulse 84; Resp 16; Pulse Ox 96% on R/A; Pain 8/10; pf1 20:00 BP 138 / 80; Pulse 78; Resp 20; Pulse Ox 95% on R/A; pf1 21:00 BP 142 / 98; Pulse 75; Resp 18; Temp 98.4; Pulse Ox 94% on R/A; pf1 19:00 Pain Scale: Adult pf1 ED Course: 15:09 Patient arrived in ED. rg4 15:10 Lily Knox FNP-C is PHCP. kb 15:10 Ralph Manzanares DO is Attending Physician. kb 15:22 Juanita Harper, KARRI is Primary Nurse. ko1 15:37 COVID-19 SARS RT PCR Sent. bc6 15:37 Flu Sent. bc6 15:37 Basic Metabolic Panel Sent. bc6 15:37 CBC with Diff Sent. bc6 15:37 Magnesium Sent. bc6 15:37 NT PRO-BNP Sent. bc6 15:37 Troponin HS Sent. bc6 15:37 Inserted saline lock: 20 gauge in left antecubital area, using aseptic technique. Blood bc6 collected. 15:45 Triage completed. ko1 15:45 Arm band placed on right wrist. Patient placed in an exam room, on a stretcher, on ko1 teletypesetter monitor, on pulse oximetry, Patient notified of wait time. 16:30 No provider procedures requiring assistance completed. Patient maintains SpO2 ko1 saturation greater than 95% on room air. 16:30 Patient has correct armband on for positive identification. Bed in low position. Call ko1 light in reach. Side rails up X2. Provided Education on: na. Client placed on continuous cardiac and pulse oximetry monitoring. NIBP monitoring applied. campus monitor on. Door closed. Noise minimized. Warm blanket given. 16:36 XRAY Chest (1 view) In Process Unspecified. EDMS 17:46 CT Chest For PE Angio In Process Unspecified. EDMS 18:14 Karie Bunch MD is Hospitalizing Provider. kb 18:15 Neil Sepulveda is Hospitalizing Provider. kb 21:14 Patient admitted, IV remains in place. pf1 Administered Medications: 18:27 Drug: MethylPrednisoLONE IVP 125 mg IVP once Route: IVP; Site: left antecubital; ko1 19:20 Follow up: Response: No adverse reaction; Marked relief of symptoms pf1 18:28 Drug: Albuterol Inhalation 2.5 mg Inhalation once Route: Inhalation; ko1 19:30 Follow up: Response: No adverse reaction; Marked relief of symptoms pf1 18:28 Drug: Ipratropium Inhalation Aerosol 0.5 mg Inhalation once Route: Inhalation; ko1 19:20 Follow up: Response: No adverse reaction; Marked relief of symptoms pf1 Medication: 21:14 VIS not applicable for this client. pf1 Outcome: 18:14 Decision to Hospitalize by Provider. kb 20:40 Admitted to Med/surg accompanied by tech, via wheelchair, room 217, with chart, Report pf1 called to KARRI Ortiz 20:40 Condition: stable 20:40 Instructed on the need for admit, Demonstrated understanding of instructions, 21:14 Patient left the ED. pf1 Signatures: Dispatcher [employer] EDMS Lily Knox, WINDOW MAKER-C WINDOW MAKER-Keira Garland rg4 Juanita Harper RN RN ko1 Becki Albarado RN RN pf1 Keesha Couch bc6
--- NOTE | 2023-03-17 18:14 | EDPHYS ---
Physician Documentation [facility] Name: Owen Duarte Age: 52 yrs Sex: Male : 1970 Arrival Date: 03/17/2023 Time: 15:08 Bed 16 Private MD: ED Physician Ralph Manzanares HPI: 03/17 16:01 This 52 yrs old Male presents to ER via Ambulatory with complaints of Coughing up kb Blood, Chest Pain. 16:01 Patient is a 52-year-old male who presents for intermittent chest pain for 1 week with kb shortness of breath and cough. States the pain got worse today and he has been noticing blood in his sputum today.. Historical: - Allergies: 15:45 PENICILLINS; ko1 15:45 Sulfa (Sulfonamide Antibiotics); ko1 - PMHx: 15:45 Asthma; COPD; diabetes mellitus; heart attack; Hypercholesterolemia; Hypertensive ko1 disorder; Pacemaker; - Immunization history:: Adult Immunizations unknown. - Social history:: Smoking status: Patient/guardian denies using tobacco. ROS: 15:59 Constitutional: Negative for fever, chills, and weight loss, kb 15:59 Cardiovascular: Positive for chest pain, 15:59 Respiratory: Positive for cough, dyspnea on exertion, hemoptysis, shortness of breath, 15:59 All other systems are negative, Exam: 15:59 Constitutional: This is a well developed, well nourished patient who is awake, alert, kb and in no acute distress. Head/Face: Normocephalic, atraumatic. ENT: Moist Mucous membranes Cardiovascular: Regular rate Abdomen/GI: Soft, non-tender. No distention Skin: Warm, dry with normal turgor. Normal color. MS/ Extremity: Pulses equal, no cyanosis. Neurovascular intact. Full, normal range of motion. Neuro: Awake and alert, GCS 15, oriented to person, place, time, and situation. Moves all extremities. Normal gait. 15:59 Respiratory: mild respiratory distress is noted, Respirations: labored breathing, that is mild, Breath sounds: rhonchi, that are mild, are located in both bases, Vital Signs: 15:42 BP 136 / 95; Pulse 85; Resp 18; Temp 98; Pulse Ox 97% ; ko1 16:00 BP 128 / 70; Pulse 80; Resp 18; Pulse Ox 97% on R/A; ko1 17:00 BP 143 / 87; Pulse 74; Resp 16; Pulse Ox 96% on R/A; ko1 18:00 BP 142 / 84; Pulse 80; Resp 16; Pulse Ox 98% on R/A; ko1 19:00 BP 151 / 82; Pulse 84; Resp 16; Pulse Ox 96% on R/A; Pain 8/10; pf1 20:00 BP 138 / 80; Pulse 78; Resp 20; Pulse Ox 95% on R/A; pf1 21:00 BP 142 / 98; Pulse 75; Resp 18; Temp 98.4; Pulse Ox 94% on R/A; pf1 19:00 Pain Scale: Adult pf1 MDM: 15:11 Patient medically screened. kb 16:00 Differential diagnosis: CHF exacerbation, PE, COPD exacerbation, flu, COVID, pneumonia, kb OK, abnormal EKG. Data reviewed: vital signs, nurses notes. 16:01 Care significantly affected by the following chronic conditions: Diabetes, kb Hypertension, Congestive Heart Failure, Chronic Obstructive Pulmonary Disease, Obesity. 18:12 Consideration of Admission/Observation Patient was admitted/placed on observation. kb Escalation of care including admission/observation considered. Management of patient was discussed with the following: Hospitalist: TYREL Sharpe accepts pt under Dr Sepulveda. Counseling: I had a detailed discussion with the patient and/or guardian regarding the historical points, exam findings, and any diagnostic results supporting the discharge/admit diagnosis, lab results, radiology results, the need for further work-up and treatment in the hospital. 03/17 15:22 Order name: Basic Metabolic Panel; Complete Time: 16:12 kb 03/17 15:22 Order name: CBC with Diff; Complete Time: 15:54 kb 03/17 15:22 Order name: Magnesium; Complete Time: 16:12 kb 03/17 15:22 Order name: NT PRO-BNP; Complete Time: 16:12 kb 03/17 15:22 Order name: Troponin HS; Complete Time: 16:12 kb 03/17 15:22 Order name: Flu; Complete Time: 16:02 kb 03/17 15:22 Order name: COVID-19 SARS RT PCR; Complete Time: 16:24 kb 03/17 18:54 Order name: CBC with Automated Diff EDMS 03/17 18:54 Order name: CBC with Automated Diff EDMS 03/17 18:54 Order name: Comprehensive Metabolic Panel EDMS 03/17 18:54 Order name: Comprehensive Metabolic Panel EDMS 03/17 18:54 Order name: Magnesium EDMS 03/17 18:54 Order name: Magnesium EDMS 03/17 18:54 Order name: Phosphorus EDMS 03/17 18:54 Order name: Phosphorus EDMS 03/17 18:54 Order name: Protime (+INR) EDMS 03/17 18:54 Order name: Protime (+INR) EDMS 03/17 18:54 Order name: PTT, Activated Partial Thromb EDMS 03/17 18:54 Order name: PTT, Activated Partial Thromb EDMS 03/17 18:54 Order name: Troponin High Sensitivity EDMS 03/17 18:54 Order name: Troponin High Sensitivity EDMS 03/17 18:54 Order name: Troponin High Sensitivity EDMS 03/17 18:54 Order name: Urinalysis w/ reflexes EDMS 03/17 15:22 Order name: XRAY Chest (1 view); Complete Time: 16:49 kb 03/17 16:50 Order name: CT Chest For PE Angio; Complete Time: 18:11 kb 03/17 15:22 Order name: EKG; Complete Time: 15:23 kb 03/17 18:54 Order name: CONS Physician Consult EDTN 03/17 15:22 Order name: Cardiac monitoring; Complete Time: 15:24 kb 03/17 15:22 Order name: EKG - Nurse/Tech; Complete Time: 15:39 kb 03/17 15:22 Order name: IV Saline Lock; Complete Time: 15:37 kb 03/17 15:22 Order name: Labs collected and sent; Complete Time: 15:37 kb 03/17 15:22 Order name: O2 Per Protocol; Complete Time: 15:24 kb 03/17 15:22 Order name: O2 Sat Monitoring; Complete Time: 15:24 kb Administered Medications: 18:27 Drug: MethylPrednisoLONE IVP 125 mg IVP once Route: IVP; Site: left antecubital; ko1 19:20 Follow up: Response: No adverse reaction; Marked relief of symptoms pf1 18:28 Drug: Albuterol Inhalation 2.5 mg Inhalation once Route: Inhalation; ko1 19:30 Follow up: Response: No adverse reaction; Marked relief of symptoms pf1 18:28 Drug: Ipratropium Inhalation Aerosol 0.5 mg Inhalation once Route: Inhalation; ko1 19:20 Follow up: Response: No adverse reaction; Marked relief of symptoms pf1 Disposition: 17:44 I was immediately available on-site in the Emergency Department for consultation in the ms3 care of the patient. Disposition Summary: 03/17/23 18:14 Hospitalization Ordered Notes: Hospitalization Status: Observation kb Location: Telemetry/MedSurg (observation) kb Condition: Stable kb Problem: new kb Symptoms: are unchanged kb Bed/Room Type: Standard kb Provider: Neil Sepulveda(03/17/23 18:15) kb Room Assignment: [facility](03/17/23 19:53) Diagnosis - Dyspnea kb - Chest pain, unspecified kb Forms: - Medication Reconciliation Form kb - SBAR form kb - Leadership Thank You Letter kb Signatures: Dispatcher [employer] EDMS Lily Knox, BRITNEY-C BRITNEY-Shadia Garland RN RN cg Ralph Manzanares DO DO ms3 Juanita Harper RN RN ko1 Becki Albarado RN pf1 Corrections: (The following items were deleted from the chart) 18:15 18:12 Management of patient was discussed with the following: Hospitalist: TYREL Sharpe kb accepts pt under Dr Bunch. kb 18:15 18:14 Karie Bunch 19:53 18:14 kb cg
[2023-03-17] MEDS ORDERED: IPRATROPIUM BROM 0.5MG/2.5ML ONE (18:32)
[2023-03-17] MEDS ORDERED: METHYLPREDNISOLONE 125 MG INJ ONE (18:32)
[2023-03-17] MEDS ORDERED: D50W 25 GM/50 ML SYRINGE IV PRN (19:50)
[2023-03-17] MEDS ORDERED: GLUCAGON 1 MG/VIAL IM PRN (19:50)
[2023-03-17] MEDS ORDERED: D10W 125 ML IV PRN (19:58)
[2023-03-17] MEDS: ALBUTEROL 2.5 MG/3 ML NEB SOL NEB SCH (20:00)
[2023-03-17] MEDS: HYDROCODONE/APAP 10/325 TAB PO PRN (21:41)
[2023-03-17] MEDS: APIXABAN 5 MG TABLET PO SCH (21:41)
[2023-03-17] MEDS: NA CHLORIDE 0.9% 1,000 ML IV SCH (21:42)
[2023-03-17] MEDS: INSULIN REGULAR (HUMAN) 100 UNIT/ML SQ SCH (21:43)
[2023-03-17 23:26] VITALS: BMI 38.9
[2023-03-18] MEDS: ALBUTEROL 2.5 MG/3 ML NEB SOL NEB SCH ×3 (00:05→14:03)
[2023-03-18] MEDS: METHYLPREDNISOLONE 125 MG INJ IV SCH ×3 (00:22→11:46)
[2023-03-18 03:31] LABS: Absolute Lymphocytes (CBC) 0.9 K/uL (0.7-4.9); Lymphocytes % 5.8 % (15.3-44.8); MCV 94.1 fL (80-100); MPV 10.4 fL (7.6-11.3); Platelets 185 thou/uL (152-406); Protime INR 1.16; RBC Red Blood Cell Count 4.78 M/uL (4.33-5.43)
[2023-03-18] MEDS: HYDROCODONE/APAP 10/325 TAB PO PRN ×3 (04:07→16:11)
--- NOTE | 2023-03-18 04:42 | P.HP ---
Certification for Inpatient With expected LOS: >2 Midnights Patient will require the following post-hospital care: None Practitioner: I am a practitioner with admitting privileges, knowledge of patient current condition, hospital course, and medical plan of care. Services: Services provided to patient in accordance with Admission requirements found in Title 42 Section 412.3 of the Code of Federal Regulations Patient History Date of Service: 03/18/23 Primary Care Provider: [facility] Reason for admission: hemoptysis/chest pain/bronchitis History of Present Illness: Mr. Duarte is a 52yo patient with a history of NV, stent, pacemaker, PE, NIDDM, and chronic pain who presented to the ED with dyspnea, hemoptysis. Initial oxygen saturation was 86-92. CT PE protocol is negative for PE or pneumonia. Pt has harsh breath sounds and cough. O2 placed at 2L via NC. Spo2 on exam is 97%. We will keep him in the hospital to follow serial troponins and given oxygen, nebs q6h, and IV abx for COPD exacerbation. Allergies Sulfa (Sulfonamide Antibiotics) Allergy (Verified 05/16/21 21:44) Anaphylaxis Home medications list reviewed: Yes Home Medications: Atorvastatin Calcium [Lipitor] 80 mg PO BEDTIME 05/16/21 Furosemide [Lasix*] 40 mg PO DAILY 05/16/21 Lisinopril [Zestril] 20 mg PO DAILY 05/16/21 Nitroglycerin 0.4 mg SL [id number] PRN 05/16/21 carvediloL [Carvedilol] 6.25 mg PO BID 05/16/21 Potassium Oral Tab [Klor-Con 10 mEq Tab*] 10 meq PO DAILY #30 tab 05/24/21 Metformin HCl 1 tab PO BID 06/06/21 Amitriptyline HCl 1 tab PO BEDTIME 03/17/23 Apixaban [Eliquis] 1 tab PO DAILY 03/17/23 Hydrocodone Bit/Acetaminophen [[place] 10-325 Tablet] 1 tab PO Q6H PRN 03/17/23 Spironolactone 1 tab PO DAILY 03/17/23 Tizanidine HCl 1 cap PO SEECOM 03/17/23 - Past Medical/Surgical History Has patient received pneumonia vaccine in the past: Yes Diabetic: Yes -: Hepatitis C -: DDD/DJD of the spine -: Chronic pain -: Seizures -: History of Cardiomyopathy, CAD -: HTN -: Hyperlipidemia -: History of CVA -: Anxiety -: Tobacco abuse -: RADHA, COPD -: CAD -: Fusion of C spine -: I/D of the left hand -: Pacemaker/defibrillator -: Cardiac stents Psychosocial/ Personal History: - Social History Smoking Status: Current some day smoker Alcohol use: No CD- Drugs: No Caffeine use: Yes Place of Residence: Home Review of Systems General: Unremarkable Eyes: Unremarkable ENT: Unremarkable Respiratory: Cough, Shortness of Breath, Hemoptysis, SOB with Excertion Gastrointestinal: Unremarkable Genitourinary: Unremarkable Musculoskeletal: Unremarkable Integumentary: Unremarkable Neurological: Unremarkable Lymphatics: Unremarkable Physical Examination - Vital Signs Temperature: 97.4 F Blood Pressure: 129/64 Pulse: 85 Respirations: 17 Pulse Ox (%): 92 - Physical Exam General: Alert, In no apparent distress, Oriented x3 HEENT: Atraumatic, Normocephalic, PERRLA Neck: Supple Respiratory: Diminished, Expiratory wheezes Cardiovascular: No edema Capillary refill: <2 Seconds Gastrointestinal: Normal bowel sounds Musculoskeletal: No clubbing, No swelling Integumentary: No rashes, No breakdown Neurological: Normal speech Lymphatics: No axilla or inguinal lymphadenopathy External genitalia: Deferred Rectal: Deferred - Studies Laboratory Data (last 24 hrs) 03/17/23 03/17/23 15:35 15:35 WBC 17.80 H Hgb 15.0 Hct 45.2 Plt Count 190 Sodium 135 L Potassium 3.9 BUN 22 H Creatinine 1.07 Glucose 125 H Magnesium 2.0 Microbiology Data (last 24 hrs): 03/17/23 15:35 Nasopharnyx Influenza Type A Antigen Screen - Final 03/17/23 15:35 Nasopharnyx Influenza Type B Antigen Screen - Final Assessment and Plan - Problems (Diagnosis) (1) COPD exacerbation Current Visit: Yes Status: Acute Plan: Serial cardiac enzymes, O2 per protocol, nebs and steroids per orders Discharge Plan: Home - Advance Directives Does patient have a Living Will: No Does patient have a Durable POA for Healthcare: No - Code Status/Comfort Care Code Status Assessed: Yes (Full) Critical Care: No Time Spent Managing Pts Care (In Minutes): 60
[2023-03-18 04:44] LABS: Albumin 3.6 g/dL (3.4-5.0); Bilirubin Total 0.5 mg/dL (0.2-1.0); Magnesium 2.3 mg/dL (1.6-2.4); Phosphorus 1.9 mg/dL (2.5-4.9); Potassium 4.5 mEq/L (3.5-5.1); Protein, Total 8.1 g/dL (6.4-8.2); Troponin High Sensitivity 10.4 pg/mL (<58.9)
[2023-03-18 05:27] LABS: Blood Morphology Comment NOT SEEN (NOT SEEN); Platelet Estimate ADEQ
[2023-03-18] MEDS: POTASS/SODIUM PHOSPHATE 1 PKT POWD.PACK PO SCH ×3 (05:54→08:53)
[2023-03-18] MEDS: INSULIN REGULAR (HUMAN) 100 UNIT/ML SQ SCH ×3 (06:24→11:46)
[2023-03-18] MEDS: NA CHLORIDE 0.9% 1,000 ML IV SCH (08:20)
[2023-03-18] MEDS: APIXABAN 5 MG TABLET PO SCH (08:53)
[2023-03-18 09:22] VITALS: TEMP 97.1
[2023-03-18] MEDS ORDERED: APIXABAN 5 MG TABLET PO SCH (09:49)
[2023-03-18] MEDS ORDERED: HYDROCODONE/APAP 10/325 TAB PO PRN (09:49)
[2023-03-18] MEDS ORDERED: SPIRONOLACTONE 25 MG TABLET PO SCH (09:50)
[2023-03-18] MEDS ORDERED: carvediloL 6.25 MG TAB PO SCH (10:00)
[2023-03-18] MEDS ORDERED: lisinopriL 10 MG TAB PO SCH (10:00)
[2023-03-18] MEDS ORDERED: NICOTINE 21 MG/PAT TD SCH (11:39)
[2023-03-18] MEDS ORDERED: FUROSEMIDE 20 MG/ 2ML VIAL IV ONE (12:42)
--- NOTE | 2023-03-18 12:53 | P.CNS ---
Date of Consult: 03/18/23 Reason for Consult: Hemoptysis chronic cough Primary Care Provider: RAULITO Chief Complaint: hemoptysis/chest pain/bronchitis History of Present Illness: Patient is 52 years of age with a history of coronary artery disease he has had stents placed history of NM also has diabetes admitted to the hospital complaining of some hemoptysis he has had a chronic cough worsening dyspnea active smoker quit a month ago not regularly follow-up with his physician he does take albuterol and Symbicort at home has a history of severe sleep apnea and has oxygen at home Allergies Sulfa (Sulfonamide Antibiotics) Allergy (Verified 05/16/21 21:44) Anaphylaxis Home Medications: Atorvastatin Calcium [Lipitor] 80 mg PO BEDTIME 05/16/21 Furosemide [Lasix*] 40 mg PO DAILY 05/16/21 Lisinopril [Zestril] 20 mg PO DAILY 05/16/21 Nitroglycerin 0.4 mg SL Q5MX3 PRN 05/16/21 carvediloL [Carvedilol] 6.25 mg PO BID 05/16/21 Potassium Oral Tab [Klor-Con 10 mEq Tab*] 10 meq PO DAILY #30 tab 05/24/21 Metformin HCl 1 tab PO BID 06/06/21 Amitriptyline HCl 1 tab PO BEDTIME 03/17/23 Apixaban [Eliquis] 1 tab PO DAILY 03/17/23 Hydrocodone Bit/Acetaminophen [[place] 10-325 Tablet] 1 tab PO Q6H PRN 03/17/23 Spironolactone 1 tab PO DAILY 03/17/23 Tizanidine HCl 1 cap PO SEECOM 03/17/23 - Past Medical/Surgical History Diabetic: Yes -: Hepatitis C -: DDD/DJD of the spine -: Chronic pain -: Seizures -: History of Cardiomyopathy, CAD -: HTN -: Hyperlipidemia -: History of CVA -: Anxiety -: Tobacco abuse -: RADHA, COPD -: CAD -: Fusion of C spine -: I/D of the left hand -: Pacemaker/defibrillator -: Cardiac stents Psychosocial/ Personal History: - Social History Smoking Status: Former smoker Alcohol use: No CD- Drugs: No Caffeine use: Yes Place of Residence: Home Review of Systems General: Weakness Respiratory: Cough, Shortness of Breath, Hemoptysis Cardiovascular: As per HPI Physical Examination Temp Pulse Resp BP Pulse Ox 97.1 F 77 16 141/71 H 98 03/18/23 11:45 03/18/23 11:45 03/18/23 11:45 03/18/23 11:45 03/18/23 11:45 General: Alert, In no apparent distress, Oriented x3 HEENT: Atraumatic Neck: Supple Respiratory: Clear to auscultation bilaterally, Diminished Cardiovascular: No edema, Regular rate/rhythm, Normal S1 S2 Gastrointestinal: Normal bowel sounds, Soft and benign Musculoskeletal: No clubbing, No swelling Laboratory Data (last 24 hrs) 03/17/23 03/17/23 15:35 15:35 WBC 17.80 H Hgb 15.0 Hct 45.2 Plt Count 190 Sodium 135 L Potassium 3.9 BUN 22 H Creatinine 1.07 Glucose 125 H Magnesium 2.0 - Problems (1) COPD exacerbation Current Visit: Yes Status: Acute Plan: It is 52 years of age admitted with worsening cough dyspnea. Presumably COPD exacerbation had some hemoptysis CT scan does not show any lung mass CT scan shows no pulmonary embolism otherwise clear there is no evidence of pneumonia chemistries and labs reviewed His inhaler needs to be upgraded to a triple therapy patient has oxygen at home also is compliant with his CPAP patient is anticoagulated add Augmentin likely has underlying bronchitis if he continues to have persistent hemoptysis will ne ed a bronchoscopy changed to p.o. prednisone add Daliresp to follow-up with me in 2 weeks to be discharged home on either Trelegy or Breztri
[2023-03-18] MEDS ORDERED: AMOX/K CLAV 875 MG TAB PO SCH (12:55)
[2023-03-18] MEDS ORDERED: ROFLUMILAST 500 MCG TABLET PO SCH (12:57)
[2023-03-18 15:00] VITALS: O2SAT 93
--- NOTE | 2023-03-18 15:09 | P.DS ---
Admission Date: 03/17/23 Discharge Date: 03/18/23 Primary Care Provider: RAULITO Disposition: ROUTINE DISCHARGE Discharge Condition: FAIR Reason for Admission: hemoptysis/chest pain/bronchitis - Problems (1) Chronic respiratory failure with hypoxia Current Visit: Yes Status: Acute (2) Hemoptysis Current Visit: Yes Status: Acute (3) COPD exacerbation Current Visit: Yes Status: Acute Brief History of Present Illness: 52 year old patient with a history of HI, stent, pacemaker, PE, NIDDM, COPD and chronic pain who presented to the ED with dyspnea and hemoptysis. Patient reports cough productive of yellow sputum, 2 episodes, bloodstained.Iinitial oxygen saturation in the ED was 86-92, improved to 97% with 2 L of oxygen by nasal cannula. CT PE protocol was negative for PE or pneumonia. Pt has harsh breath sounds and cough. The patient was hospitalized for further management of COPD exacerbation and hemoptysis. Hospital Course: Patient hospitalized and treated for COPD exacerbation with scheduled bronchodilators, antibiotics. He was also given a dose of Lasix for possible CHF. Patient was seen and evaluated by pulmonary Dr. Bowles. Noted CT PE showed no pulm embolism no lung mass or pneumonia. Hemoptysis was transient, only 2 episodes and stopped. Patient appears stable. He states he is at baseline. He is deemed stable for discharge. Vital Signs/Physical Exam: Temp Pulse Resp BP Pulse Ox 97.1 F 77 16 141/71 H 98 03/18/23 11:45 03/18/23 11:45 03/18/23 11:45 03/18/23 11:45 03/18/23 11:45 General: Alert, In no apparent distress, Obese HEENT: Mucous membr. moist/pink Neck: Supple, JVD not distended Respiratory: Clear to auscultation bilaterally, Diminished Cardiovascular: No edema, Regular rate/rhythm, Normal S1 S2 Gastrointestinal: Normal bowel sounds, Soft and benign, Non-distended, No tenderness Musculoskeletal: No swelling Integumentary: No rashes Neurological: Normal strength at 5/5 x4 extr Laboratory Data at Discharge: WBC 15.60 thou/uL (4.3-10.9) H 03/18/23 01:27 Hgb 15.1 g/dL (13.6-17.9) 03/18/23 01:27 Hct 45.0 % (39.6-49.0) 03/18/23 01:27 Plt Count 185 thou/uL (152-406) 03/18/23 01:27 PT 12.8 SECONDS (9.5-12.5) H 03/18/23 01:27 INR 1.16 03/18/23 01:27 APTT 34.9 SECONDS (24.3-36.9) 03/18/23 01:27 Sodium 131 mEq/L (136-145) L 03/18/23 01:27 Potassium 4.5 mEq/L (3.5-5.1) D 03/18/23 01:27 BUN 23 mg/dL (7-18) H 03/18/23 01:27 Creatinine 1.14 mg/dL (0.70-1.30) 03/18/23 01:27 Glucose 264 mg/dL (74-106) H 03/18/23 01:27 Phosphorus 1.9 mg/dL (2.5-4.9) L 03/18/23 01:27 Magnesium 2.3 mg/dL (1.6-2.4) 03/18/23 01:27 Total Bilirubin 0.5 mg/dL (0.2-1.0) 03/18/23 01:27 AST 35 U/L (15-37) 03/18/23 01:27 ALT 73 U/L (16-61) H 03/18/23 01:27 Alkaline Phosphatase 133 U/L (45-117) H 03/18/23 01:27 Home Medications: Atorvastatin Calcium [Lipitor] 80 mg PO BEDTIME 05/16/21 Furosemide [Lasix*] 40 mg PO DAILY 05/16/21 Lisinopril [Zestril] 20 mg PO DAILY 05/16/21 Nitroglycerin 0.4 mg SL Q5MX3 PRN 05/16/21 carvediloL [Carvedilol] 6.25 mg PO BID 05/16/21 Potassium Oral Tab [Klor-Con 10 mEq Tab*] 10 meq PO DAILY #30 tab 05/24/21 Metformin HCl 1 tab PO BID 06/06/21 Amitriptyline HCl 1 tab PO BEDTIME 03/17/23 Hydrocodone Bit/Acetaminophen [[place] 10-325 Tablet] 1 tab PO Q6H PRN 03/17/23 Spironolactone 1 tab PO DAILY 03/17/23 Tizanidine HCl 1 cap PO SEECOM 03/17/23 Amox/Clavulanate [Augmentin 875-125 Tab*] 875 mg PO BID #14 tab 03/18/23 Apixaban [Eliquis] 5 mg PO BID 03/18/23 Fluticasone/Umeclidin/Vilanter [Trelegy Ellipta 200-62.5-25] 1 each IH DAILY #30 ea 03/18/23 Roflumilast [Daliresp*] 500 mcg PO DAILY #30 tab 03/18/23 predniSONE [Prednisone*] 20 mg PO BID #14 tab 03/18/23 New Medications: Amox/Clavulanate [Augmentin 875-125 Tab*] 875 mg PO BID #14 tab Roflumilast [Daliresp*] 500 mcg PO DAILY #30 tab predniSONE [Prednisone*] 20 mg PO BID #14 tab Fluticasone/Umeclidin/Vilanter [Trelegy Ellipta 200-62.5-25] 1 each IH DAILY #30 ea Diet: ADA Activity: Ad ata Followup: Jose Panda MD [ACTIVE - CAN ADMIT] - (within 2-4 weeks) NONE,NONE [Primary Care Provider] - 1-2 Weeks Time spent managing pt's care (in minutes): 28
[2023-03-18 16:09] VITALS: BP 136/103
[2023-03-18] MEDS ORDERED: ATORVASTATIN 80 MG TAB PO SCH (21:00)
[2023-03-18] MEDS ORDERED: predniSONE 20 MG TAB PO SCH (21:00)
[2023-03-18] MEDS ORDERED: AMITRIPTYLINE 50 MG TAB PO SCH (21:00)
[2023-03-19] MEDS ORDERED: POTASSIUM CL SA 10 MEQ TAB PO SCH (09:00)
--- NOTE | 2023-03-19 17:28 | EKG ---
Test Date: 2023-03-17 Test Time: 15:36:50 Civil Structural Designer: Rima MEASUREMENT RESULTS: Intervals: Rate: 86 MA: 156 QRSD: 108 QT: 356 QTc: 426 [place]: P: 59 MA: 156 QRS: 108 T: 65 INTERPRETIVE STATEMENTS: Sinus rhythm with occasional premature ventricular complexes Low voltage QRS Septal infarct, age undetermined Lateral infarct, age undetermined Abnormal ECG Compared to ECG 06/05/2021 23:26:16 Ventricular premature complex(es) now present Sinus tachycardia no longer present Myocardial infarct finding still present Electronically Signed On 03-19-23 17:23:01 STEAMER TENDER by Leon Weiner
== END 2023-03-18 17:45 | disposition home or self-care (01) ==
LOC: ER 15:08 → INTOOBSV 18:40 → ERHOLD 18:40 → 2ND 20:06
PROVIDERS: ADMIT Internal Medicine; ATTEND Internal Medicine
DX: J44.1 Chronic obstructive pulmonary disease with (acute) exacerbation (principal); J96.11 Chronic respiratory failure with hypoxia; R04.2 Hemoptysis; I50.9 Heart failure, unspecified; I11.0 Hypertensive heart disease with heart failure; E11.9 Type 2 diabetes mellitus without complications; E78.00 Pure hypercholesterolemia, unspecified; I25.10 Atherosclerotic heart disease of native coronary artery without angina pectoris; F17.200 Nicotine dependence, unspecified, uncomplicated; I25.2 Old myocardial infarction; Z88.0 Allergy status to penicillin; Z88.2 Allergy status to sulfonamides; Z95.5 Presence of coronary angioplasty implant and graft; Z79.84 Long term (current) use of oral hypoglycemic drugs; Z79.01 Long term (current) use of anticoagulants; Z99.81 Dependence on supplemental oxygen; Z11.52 Encounter for screening for COVID-19; Z79.899 Other long term (current) drug therapy; Z95.810 Presence of automatic (implantable) cardiac defibrillator
CPT/HCPCS: 93005; 85025 ×2; 80048; 36415; 83735 ×2; 84100; 85610; 82947 ×4; 85730; 84484 ×3; 80053; 83880; 87635; 87804 ×2; 71275; 71045; 94640 ×3; 94760 ×2; 96374; 99285; Q9967; J1815 ×3; J7613; J7644; J2930 ×4

== ENCOUNTER 2024-12-04 10:00 | Inpatient (IN) | payer MEDICAID, OTHER ==
[2024-12-04 10:55] LABS: Absolute Lymphocytes (CBC) 1.2 K/uL (0.7-4.9); Hematocrit 41.0 % (39.6-49.0); Hemoglobin 13.6 g/dL (13.6-17.9); MCH 30.5 pg (27.0-35.0); MCHC 33.2 g/dL (32.0-36.0); MCV 91.7 fL (80-100); MPV 10.6 fL (7.6-11.3); Nucleated RBC Absolute Count 0.0 (0-0); Nucleated Red Blood Cells % 0.0 % (0-0); RBC Red Blood Cell Count 4.47 M/uL (4.33-5.43); White Blood Count 16.90 thou/uL (4.3-10.9)
[2024-12-04 10:58] LABS: PT Prothrombin Time 14.2 SECONDS (10-13.0); Protime INR 1.27
[2024-12-04 11:01] LABS: Urine Microscopic Reflex YN NO UMIC
[2024-12-04 11:17] LABS: ALT/SGPT 76.0 U/L (16-61); AST/SGOT 39.0 U/L (15-37); Albumin 3.1 g/dL (3.4-5.0); Albumin/Globulin Ratio 0.8 (1.1-1.8); Alkaline Phosphatase 147.0 U/L (45-117); Anion Gap 13.1 mEq/L (5.0-15.0); BUN Blood Urea Nitrogen 16.0 mg/dL (7-18); Bilirubin Indirect, Calculated 0.2 mg/dL (0.2-0.8); Globulin 4.1 g/dL (2.3-3.5); Magnesium 1.8 mg/dL (1.6-2.4); NT PRO-BNP 209.0 pg/mL (<125); Potassium 3.1 mEq/L (3.5-5.1); Troponin High Sensitivity 6.6 pg/mL (<58.9)
[2024-12-04 11:19] LABS: Glucose Level 535.0 mg/dL (74-106)
[2024-12-04 11:28] LABS: Influenza A Ag Negative; Influenza B Ag Negative; SARS-CoV-2 Antigen Rapid Res Negative (Negative)
--- NOTE | 2024-12-04 11:36 | RAD REPORT ---
EXAMINATION: ONE VIEW CHEST XR CLINICAL INDICATION: DYSPNEA TECHNIQUE: Frontal chest projection is submitted. Examination is limited by patient positioning and t echnique. COMPARISON: 09/27/2024 FINDINGS: Mild interstitial pulmonary edema is possible. The heart is upper limit of normal in size. No displac ed fractures identified. Dual-lead pacer device present. IMPRESSION: Mild CHF may be considered.
[2024-12-04] MEDS ORDERED: METHYLPREDNISOLONE 125 MG INJ ONE (11:37)
[2024-12-04] MEDS ORDERED: IPRATROPIUM BROM 0.5MG/2.5ML ONE (11:37)
[2024-12-04] MEDS ORDERED: LEVALBUTEROL 1.25 MG/3 ML NEB ONE (11:38)
[2024-12-04] MEDS ORDERED: POTASSIUM 25 MEQ EFFERV TAB ONE (11:38)
[2024-12-04] MEDS ORDERED: INSULIN REGULAR (HUMAN) 100 UNIT/ML ONE (11:39)
[2024-12-04] MEDS ORDERED: FAMOTIDINE 20 MG/2 ML VIAL IV ONE (11:41)
--- NOTE | 2024-12-04 11:43 | EDPHYS ---
Physician Documentation [facility] Name: Owen Duarte Age: 54 yrs Sex: Male : 1970 Arrival Date: 12/04/2024 Time: 10:00 Bed 13 Private MD: ED Physician Gera Ugalde HPI: 12/04 11:28 This 54 yrs old Male presents to ER via Ambulatory with complaints of rafael Shortness Of Breath. 11:28 The patient has shortness of breath at rest, with light activity. Onset: The rafael symptoms/episode began/occurred 3 day(s) ago. The patient's shortness of breath is aggravated by light activity, supine position, is alleviated by nothing. Associated signs and symptoms: Pertinent positives: non-productive cough. Severity of symptoms: At their worst the symptoms were moderate in the emergency department the symptoms are unchanged. The patient has experienced similar episodes in the past, multiple times. Historical: - Allergies: 10:04 PENICILLINS; ss 10:04 Sulfa (Sulfonamide Antibiotics); ss 10:04 tramadol; ss 10:04 Trazodone; ss - PMHx: 10:04 Asthma; COPD; diabetes mellitus; heart attack; Hypercholesterolemia; Hypertensive ss disorder; Pacemaker; - PSHx: 10:04 pacemaker; ss - Infectious Disease History:: Denies. - Social history:: Smoking status: Patient reports the use of cigarette tobacco products, denies chronic smoking, but will smoke occasionally, Patient reports use of chewing tobacco. ROS: 11:29 Constitutional: Negative for fever, chills, and weight loss, Eyes: Negative for injury, rafael pain, redness, and discharge, ENT: Negative for injury, pain, and discharge, Neck: Negative for injury, pain, and swelling, Cardiovascular: Negative for chest pain, palpitations, and edema, Abdomen/GI: Negative for abdominal pain, nausea, vomiting, diarrhea, and constipation, Back: Negative for injury and pain, : Negative for injury, bleeding, discharge, and swelling, MS/Extremity: Negative for injury and deformity, Skin: Negative for injury, rash, and discoloration, Neuro: Negative for headache, weakness, numbness, tingling, and seizure, Psych: Negative for depression, anxiety, suicide ideation, homicidal ideation, and hallucinations, Allergy/Immunology: Negative for hives, rash, and allergies, Endocrine: Negative for neck swelling, polydipsia, polyuria, polyphagia, and marked weight changes, Hematologic/Lymphatic: Negative for swollen nodes, abnormal bleeding, and unusual bruising, 11:29 Respiratory: Positive for cough, shortness of breath, wheezing, expiratory, Exam: 11:29 Constitutional: This is a well developed, well nourished patient who is awake, alert, rafael and in no acute distress. Head/Face: Normocephalic, atraumatic. Eyes: Pupils equal round and reactive to light, extra-ocular motions intact. Lids and lashes normal. Conjunctiva and sclera are non-icteric and not injected. Cornea within normal limits. Periorbital areas with no swelling, redness, or edema. ENT: Nares patent. No nasal discharge, no septal abnormalities noted. Tympanic membranes are normal and external auditory canals are clear. Oropharynx with no redness, swelling, or masses, exudates, or evidence of obstruction, uvula midline. Mucous membranes moist. Neck: Trachea midline, no thyromegaly or masses palpated, and no cervical lymphadenopathy. Supple, full range of motion without nuchal rigidity, or vertebral point tenderness. No Meningismus. Chest/axilla: Normal chest wall appearance and motion. Nontender with no deformity. No lesions are appreciated. Abdomen/GI: Soft, non-tender, with normal bowel sounds. No distension or tympany. No guarding or rebound. No evidence of tenderness throughout. Back: No spinal tenderness. No costovertebral tenderness. Full range of motion. Male : Normal genitalia with no discharge or lesions. Skin: Warm, dry with normal turgor. Normal color with no rashes, no lesions, and no evidence of cellulitis. MS/ Extremity: Pulses equal, no cyanosis. Neurovascular intact. Full, normal range of motion., bilateral aka Neuro: Awake and alert, GCS 15, oriented to person, place, time, and situation. Cranial nerves II-XII grossly intact. Motor strength 5/5 in all extremities. Sensory grossly intact. Cerebellar exam normal. Normal gait. Psych: Awake, alert, with orientation to person, place and time. Behavior, mood, and affect are within normal limits. 11:29 Cardiovascular: Rate: tachycardic, actual rate is 93 bpm, Rhythm: regular, Pulses: Pulses are 4+ in bilateral radial, brachial, femoral, popliteal, posterior tibial and and dorsalis pedis arteries.. Heart sounds: normal, Edema: is not appreciated, JVD: is not appreciated, 11:29 ECG was reviewed by the Attending Physician. Vital Signs: 10:03 BP 127 / 71; Pulse 93; Resp 18; Pulse Ox 97% on 4 lpm NC; Weight 135.17 kg; Height 5 ss ft. 11 in. ; 10:24 Temp 97.3(TE); ph 11:00 BP 122 / 66; Pulse 85; Resp 22; Pulse Ox 93% on 2 lpm NC; ar8 12:19 BP 136 / 70; Pulse 84; Resp 20 S; Pulse Ox 98% on Receiving neb tx; ar8 13:00 BP 141 / 75; Pulse 85; Resp 24 S; Temp 98.3(O); Pulse Ox 96% on 3 lpm NC; Pain 8/10; ar8 14:23 BP 134 / 80; Pulse 80; Resp 22; Temp 98.3(O); Pulse Ox 95% on 2 lpm NC; Pain 5/10; ar8 10:03 Body Mass Index 41.56 (135.17 kg, 180.34 cm) ss 13:00 Pain Scale: Adult ar8 14:23 Pain Scale: Adult ar8 MDM: 10:04 Medical Screening Exam initiated rafael 11:31 Differential diagnosis: Anxiety Reaction asthma, Bronchitis CHF exacerbation, Chronic rafael Obstructive Pulmonary Disease acute asthma, exercise-induced asthma, reactive airway, CHF, URI, foreign body, Myocardial Infarction pneumonia, Pneumothorax pulmonary edema, Pulmonary Embolism reactive airway disease, Sepsis Unstable Angina. Antibiotic administration: Levaquin given. Differential Diagnosis: Obstructed Airway Bronchitis Influenza Upper Respiratory Infection Sinusitis Pharyngitis Viral Syndrome Pneumonia. Immunization status: Influenza vaccine: Data reviewed: vital signs, nurses notes, lab test result(s), EKG, radiologic studies, CT scan, plain films. Consideration of Admission/Observation Patient was admitted/placed on observation. Escalation of care including admission/observation considered. I considered the following discharge prescriptions or medication management in the emergency department Medications were administered in the Emergency Department. See MAR. Independent interpretation of the following test(s) in the Emergency Department EKG: See my EKG interpretation above. Test considered but Not performed: Ultrasound NO 2 D ECHO. Historians other than the Patient: Spouse/Significant Other: SPOUSE WELL INFORMED. Care significantly affected by the following chronic conditions: Diabetes, Hypertension, Congestive Heart Failure, Chronic Obstructive Pulmonary Disease, Obesity. Counseling: I had a detailed discussion with the patient and/or guardian regarding the historical points, exam findings, and any diagnostic results supporting the discharge/admit diagnosis, lab results, radiology results, the need for further work-up and treatment in the hospital. 12/04 10:05 Order name: Basic Metabolic Panel; Complete Time: 11:20 [facility] 12/04 10:05 Order name: CBC with Diff [facility] 12/04 10:05 Order name: LFT's; Complete Time: 11:20 [facility] 12/04 10:05 Order name: Magnesium; Complete Time: 11:20 [facility] 12/04 10:05 Order name: NT PRO-BNP; Complete Time: 11:20 [facility] 12/04 10:05 Order name: PT-INR; Complete Time: 11:20 [facility] 12/04 10:05 Order name: Troponin HS; Complete Time: 11:20 [facility] 12/04 10:05 Order name: COVID-19 Ag + Flu A+B Ag; Complete Time: 12:51 [facility] 12/04 10:05 Order name: UA Rfx Tyree Cult if indicated; Complete Time: 11:20 [facility] 12/04 11:26 Order name: Blood Culture Adult (2) [facility] 12/04 11:26 Order name: Lactate w/ 2H reflex if indic.; Complete Time: 13:07 [facility] 12/04 12:12 Order name: Magnesium [facility] 12/04 12:12 Order name: Phosphorus [facility] 12/04 12:12 Order name: UA Rfx Tyree Cult if indicated [facility] 12/04 12:12 Order name: Basic Metabolic Panel [facility] 12/04 12:12 Order name: Basic Metabolic Panel [facility] 12/04 12:12 Order name: CBC with Automated Diff [facility] 12/04 12:12 Order name: CBC with Automated Diff [facility] 12/04 12:18 Order name: Hemoglobin A1c [facility] 12/04 13:15 Order name: CBC Smear Scan [facility] 12/04 10:05 Order name: XRAY Chest (1 view); Complete Time: 12:51 [facility] 12/04 11:28 Order name: CT Chest For PE Angio; Complete Time: 12:51 [facility] 12/04 12:12 Order name: Physical Therapy Consult [facility] 12/04 10:05 Order name: Cardiac monitoring; Complete Time: 10:30 [facility] 12/04 10:05 Order name: EKG - Nurse/Tech; Complete Time: 10:30 [facility] 12/04 10:05 Order name: IV Saline Lock; Complete Time: 10:30 [facility] 12/04 10:05 Order name: Labs collected and sent; Complete Time: 10:30 [facility] 12/04 10:05 Order name: O2 Per Protocol; Complete Time: 10:30 [facility] 12/04 10:05 Order name: O2 Sat Monitoring; Complete Time: 10:30 [facility] EC:29 Rate is 89 beats/min. Rhythm is regular. QRS [place] is Normal. NE interval is normal. QRS rafael interval is normal. QT interval is normal. No Q waves. T waves are Normal. Clinical impression: NSR w/ Non-specific ST/T Changes and No evidence of ischemia. Interpreted by me. Reviewed by me. Administered Medications: 12:14 Drug: LevOfloxacin PO 750 mg PO once Route: PO; ar8 14:25 Follow up: Response: No adverse reaction ar8 12:15 Drug: Potassium PO Effervescent Tablet 50 mEq PO once; dissolve in 4 ounces of water or ar8 juice Route: PO; 13:00 Follow up: Response: No adverse reaction ar8 12:16 Drug: Levalbuterol Inhalation 3.75 mg Inhalation once Route: Inhalation; ar8 14:24 Follow up: Response: No adverse reaction ar8 12:16 Drug: Ipratropium Inhalation Aerosol 0.5 mg Inhalation once Route: Inhalation; ar8 14:25 Follow up: Response: No adverse reaction ar8 12:16 Drug: Insulin Regular Human Sub-Q 10 units Sub-Q once {Co-Signature: katie (Christina Dunham ar8 RN).} Route: Sub-Q; Site: right upper arm; 14:24 Follow up: Response: No adverse reaction ar8 12:17 Drug: Famotidine IVP 20 mg IVP once; dilute with 10 mL 0.9% NaCl; give over 2 minutes ar8 Route: IVP; Site: right antecubital; 14:25 Follow up: Response: No adverse reaction ar8 12:18 Drug: MethylPrednisoLONE IVP 125 mg IVP once Route: IVP; Site: right antecubital; ar8 14:24 Follow up: Response: No adverse reaction ar8 12:20 Drug: Insulin Regular Human IVP 10 units IVP once {Co-Signature: ph (Christina Dunham RN).} Route: IVP; Site: right antecubital; 14:24 Follow up: Response: No adverse reaction ar8 13:30 Drug: NS 0.9% IV (30 ml/kg) 30 ml/kg IV at bolus once; Sepsis Protocol; to be given as ar8 a bolus over 90 minutes {Note: Patient receiving NS 1L at this time..} Route: IV; Rate: bolus; Site: right antecubital; 14:25 Follow up: IV Status: Infusion continued upon admission ar8 Disposition Summary: 12/04/24 11:43 Hospitalization Ordered Notes: Hospitalization Status: Inpatient Admission rafael Provider: Karie Bunch cha Location: Telemetry/MedSurg (Inpatient) rafael Condition: Fair rafael Problem: new rafael Symptoms: have improved rafael Bed/Room Type: Standard [facility] Room Assignment: 225(12/04/24 12:33) eb Diagnosis - Morbid (severe) obesity with alveolar hypoventilation rafael - Hypoxemia rafael - COPD/ Chronic obstructive pulmonary disease with (acute) exacerbation rafael - Type 1 diabetes mellitus with hyperglycemia rafael - Hypokalemia rafael - Elevated white blood cell count rafael - Severe sepsis with septic shock rafael Forms: - Medication Reconciliation Form rafael - SBAR form rafael - Leadership Thank You Letter rafael Signatures: Dispatcher [employer] Gera Moses MD MD cha Blanchard, Shelby, RN RN Bonita Lawrence Andrea, RN RN Christina Glass RN ph Corrections: (The following items were deleted from the chart) 10:06 10:06 BASIC METABOLIC PANEL+C.LAB.BRZ ordered. EDMS EDMS 10:06 10:06 CBC+H.LAB.BRZ ordered. EDMS EDMS 10:06 10:06 HEPATIC FUNCTION+C.LAB.BRZ ordered. EDMS EDMS 10:06 10:06 MAGNESIUM+C.LAB.BRZ ordered. EDMS EDMS 10:06 10:06 PROBNP+C.LAB.BRZ ordered. EDMS EDMS 10:06 10:06 PROTIME (+INR)+COAG.LAB.BRZ ordered. EDMS EDMS 10:06 10:06 Troponin High Sensitivity+C.LAB.BRZ ordered. EDMS EDMS 10: 10:06 COVID-19 Ag + Flu A+B Ag+I.LAB.BRZ ordered. EDMS EDMS 10: 10:06 UA Rfx Tyree Cult if indicated+U.LAB.BRZ ordered. EDMS EDMS 10: 10:06 Chest Single View+RAD.RAD.BRZ ordered. EDMS EDMS 11: 11:27 BLOOD CULTURE*+BA.LAB.BRZ ordered. EDMS EDMS 11: 11:27 LACTATE+C.LAB.BRZ ordered. EDMS EDMS 12:33 11:43 rafael eb
--- NOTE | 2024-12-04 11:43 | ER ---
Nurse's Notes [facility] Name: Owen Duarte Age: 54 yrs Sex: Male : 1970 Arrival Date: 12/04/2024 Time: 10:00 Bed 13 Private MD: Diagnosis: Morbid (severe) obesity with alveolar hypoventilation;Hypoxemia;COPD/ Chronic obstructive pulmonary disease with (acute) exacerbation;Type 1 diabetes mellitus with hyperglycemia;Hypokalemia;Elevated white blood cell count;Severe sepsis with septic shock Presentation: 12/04 10:03 Chief complaint: Patient states: SOB x 4 days. Pt was seen at [facility] yesterday ss and discharged home with new prescriptions. Pt reports he has not filled his prescriptions as of yet, and is feeling worse. PT is concerned because his oxygen will drop randomly. Coronavirus screen: Client denies travel out of the [place] in the last 14 days. Ebola Screen: Patient denies exposure to infectious person. Patient denies travel to an Ebola-affected area in the 21 days before illness onset. Initial Sepsis Screen: Does the patient meet any 2 criteria? No. Patient's initial sepsis screen is negative. Does the patient have a suspected source of infection? No. Patient's initial sepsis screen is negative. Risk Assessment: Do you want to hurt yourself or someone else? Patient reports no desire to harm self or others. Onset of symptoms was November 30, 2024. 10:03 Method Of Arrival: Ambulatory ss 10:03 Acuity: IRON 3 ss Historical: - Allergies: 10:04 PENICILLINS; ss 10:04 Sulfa (Sulfonamide Antibiotics); ss 10:04 tramadol; ss 10:04 Trazodone; ss - PMHx: 10:04 Asthma; COPD; diabetes mellitus; heart attack; Hypercholesterolemia; Hypertensive ss disorder; Pacemaker; - PSHx: 10:04 pacemaker; ss - Infectious Disease History:: Denies. - Social history:: Smoking status: Patient reports the use of cigarette tobacco products, denies chronic smoking, but will smoke occasionally, Patient reports use of chewing tobacco. Screenin:12 [facility] ED Fall Risk Assessment (Adult) History of falling in the last 3 months, ar8 including since admission No falls in past 3 months (0 pts) Confusion or Disorientation No (0 pts) Intoxicated or Sedated No (0 pts) Impaired Gait No (0 pts) Mobility Assist Device Used No (0 pt) Altered Elimination No (0 pt) Score/Fall Risk Level 0 - 2 = Low Risk Oriented to surroundings, Maintained a safe environment. Abuse screen: Denies threats or abuse. Nutritional screening: No deficits noted. Tuberculosis screening: No symptoms or risk factors identified. Assessment: 10:25 General: Appears uncomfortable, Behavior is calm, cooperative. Pain: Denies pain. ar8 10:25 Neuro: No deficits noted. Level of Consciousness is awake, alert, obeys commands, ar8 confused, Oriented to person, place, time, situation. Cardiovascular: Reports None Heart tones S1 S2 present Rhythm is sinus rhythm. Respiratory: Reports shortness of breath on exertion Airway is patent Respiratory effort is labored, on exertion Respiratory pattern is regular. GI: No deficits noted. 13:07 Reassessment: Dr. Ugalde notified of critical lab value. LACTATE 4.2. ss Vital Signs: 10:03 BP 127 / 71; Pulse 93; Resp 18; Pulse Ox 97% on 4 lpm NC; Weight 135.17 kg; Height 5 ss ft. 11 in. ; 10:24 Temp 97.3(TE); ph 11:00 BP 122 / 66; Pulse 85; Resp 22; Pulse Ox 93% on 2 lpm NC; ar8 12:19 BP 136 / 70; Pulse 84; Resp 20 S; Pulse Ox 98% on Receiving neb tx; ar8 13:00 BP 141 / 75; Pulse 85; Resp 24 S; Temp 98.3(O); Pulse Ox 96% on 3 lpm NC; Pain 8/10; ar8 14:23 BP 134 / 80; Pulse 80; Resp 22; Temp 98.3(O); Pulse Ox 95% on 2 lpm NC; Pain 5/10; ar8 10:03 Body Mass Index 41.56 (135.17 kg, 180.34 cm) ss 13:00 Pain Scale: Adult ar8 14:23 Pain Scale: Adult ar8 ED Course: 10:02 Patient arrived in ED. im 10:04 Gera Ugalde MD is Attending Physician. rafael 10:04 Triage completed. ss 10:04 Arm band placed on right wrist. ss 10:22 Christina Dunham RN is Primary Nurse. ph 10:25 Bed in low position. Call light in reach. Side rails up X2. ar8 10:25 Provided Education on: plan of care and diagnostics. ar8 10:25 No provider procedures requiring assistance completed. ar8 10:28 Inserted saline lock: 22 gauge in right antecubital area, using aseptic technique. ar8 Blood collected. Flushed with 10 mL NS. 10:46 COVID-19 Ag + Flu A+B Ag Sent. ar8 10:46 UA Rfx Tyree Cult if indicated Sent. ar8 11:29 XRAY Chest (1 view) In Process Unspecified. EDMS 11:40 Karie Bunch MD is Hospitalizing Provider. rafael 11:55 CT Chest For PE Angio In Process Unspecified. EDMS 12:26 Lactate w/ 2H reflex if indic. Sent. ar8 12:26 Blood Culture Adult (2) Sent. ar8 14:32 Patient admitted, IV remains in place. ar8 Administered Medications: 12:14 Drug: LevOfloxacin PO 750 mg PO once Route: PO; ar8 14:25 Follow up: Response: No adverse reaction ar8 12:15 Drug: Potassium PO Effervescent Tablet 50 mEq PO once; dissolve in 4 ounces of water or ar8 juice Route: PO; 13:00 Follow up: Response: No adverse reaction ar8 12:16 Drug: Levalbuterol Inhalation 3.75 mg Inhalation once Route: Inhalation; ar8 14:24 Follow up: Response: No adverse reaction ar8 12:16 Drug: Ipratropium Inhalation Aerosol 0.5 mg Inhalation once Route: Inhalation; ar8 14:25 Follow up: Response: No adverse reaction ar8 12:16 Drug: Insulin Regular Human Sub-Q 10 units Sub-Q once {Co-Signature: katie (Christina Dunham ar8 RN).} Route: Sub-Q; Site: right upper arm; 14:24 Follow up: Response: No adverse reaction ar8 12:17 Drug: Famotidine IVP 20 mg IVP once; dilute with 10 mL 0.9% NaCl; give over 2 minutes ar8 Route: IVP; Site: right antecubital; 14:25 Follow up: Response: No adverse reaction ar8 12:18 Drug: MethylPrednisoLONE IVP 125 mg IVP once Route: IVP; Site: right antecubital; ar8 14:24 Follow up: Response: No adverse reaction ar8 12:20 Drug: Insulin Regular Human IVP 10 units IVP once {Co-Signature: ph (Christina Dunham RN).} Route: IVP; Site: right antecubital; 14:24 Follow up: Response: No adverse reaction ar8 13:30 Drug: NS 0.9% IV (30 ml/kg) 30 ml/kg IV at bolus once; Sepsis Protocol; to be given as ar8 a bolus over 90 minutes {Note: Patient receiving NS 1L at this time..} Route: IV; Rate: bolus; Site: right antecubital; 14:25 Follow up: IV Status: Infusion continued upon admission ar8 Medication: 14:32 VIS not applicable for this client. ar8 Outcome: 11:43 Decision to Hospitalize by Provider. rafael 14:26 Admitted to Med/surg accompanied by tech, via wheelchair, room 225, with oxygen, Other ar8 NS infusing upon admission. Report called to faxed to 2nd floor 14:26 Condition: stable 14:26 Discharge instructions given to educated on need for admission 14:32 Patient left the ED. ar8 Signatures: Dispatcher [employer] EDRI Gera Ugalde MD MD cha Blanchard, Shelby, RN RN Christina Dunham, RN RN ph Kelly Renee Andrea, RN RN ar8 Christina Dunham RN ph
--- NOTE | 2024-12-04 11:59 | RAD REPORT ---
EXAMINATION: CTA CHEST PE CLINICAL INDICATION: Cough;COPD;Dyspnea TECHNIQUE: This examination was performed according to an angiographic protocol with 3D post-processi ng. This involves 3D reconstructions, MIPs, volume rendered images and/or shaded surface rendering. One or more of the following dose reduction techniques were used: Automated exposure control, adjustm ent of the mA and/or kV according to patient size, and/or iterative reconstruction. Unless otherwise specified, incidental findings do not require dedicated imaging follow-up. COMPARISON: No prior exam. FINDINGS: PULMONARY ARTERIES: Normal caliber. No evidence of pulmonary emboli to the subsegmental level. THORACIC AORTA: Normal caliber and configuration. LUNGS: No evidence of airspace or interstitial process. No nodules. Mild COPD. PLEURA: No pleural effusion. No pneumothorax. MEDIASTINUM AND LYMPH NODES: No mediastinal mass or fluid collection. Normal size mediastinal, hilar, and axillary lymph nodes. OSSEOUS STRUCTURES AND CHEST WALL: Intact. Mild bilateral gynecomastia. UPPER ABDOMEN: No significant abnormalities. IMPRESSION: No evidence of pulmonary emboli to the subsegmental level.
[2024-12-04] MEDS ORDERED: ONDANSETRON 4 MG/2 ML VIAL IV PRN (12:08)
[2024-12-04] MEDS ORDERED: GLUCAGON 1 MG/VIAL IM PRN (12:15)
[2024-12-04] MEDS ORDERED: D10W 125 ML IV PRN (12:15)
[2024-12-04] MEDS: METHYLPREDNISOLONE 40 MG INJ IV SCH (12:43)
--- NOTE | 2024-12-04 12:43 | P.HP ---
Certification for Inpatient Patient admitted to: Inpatient With expected LOS: >2 Midnights Practitioner: I am a practitioner with admitting privileges, knowledge of patient current condition, hospital course, and medical plan of care. Services: Services provided to patient in accordance with Admission requirements found in Title 42 Section 412.3 of the Code of Federal Regulations Patient History Date of Service: 12/04/24 Reason for admission: copd exacerbation History of Present Illness: Patient is a 54-year-old male with a past medical history of asthma, COPD, type 2 diabetes mellitus and MT. He also has a pacemaker in place. He presented to the ER complaining of shortness of breath for the past 4 days. Symptoms are aggravated by minimal exertion and light activity. Associated symptoms include nonproductive cough. He is experienced similar symptoms in the past. He was seen at [facility] yesterday and was discharged with some new prescription. However, he has not been able to refill his new prescriptions. Workup in the ER included a CT chest angiogram. No PE was found. Influenza and COVID-negative Allergies ketorolac [From Toradol] Allergy (Verified 09/28/24 22:14) Hives Penicillins Allergy (Verified 09/27/24 20:20) UNSURE Sulfa (Sulfonamide Antibiotics) Allergy (Verified 09/27/24 20:20) Anaphylaxis tramadol Adverse Reaction (Verified 09/27/24 20:20) SEIZURES trazodone Adverse Reaction (Verified 09/27/24 20:20) "FEEL BAD" Home Medications: Atorvastatin Calcium [Lipitor] 80 mg PO BEDTIME 05/16/21 Nitroglycerin 0.4 mg SL [id number] PRN 05/16/21 carvediloL [Carvedilol] 6.25 mg PO BID 05/16/21 Potassium Oral Tab [Klor-Con 10 mEq Tab*] 10 meq PO DAILY #30 tab 05/24/21 Metformin HCl 1 tab PO BID 06/06/21 Amitriptyline HCl 1 tab PO BEDTIME 03/17/23 Hydrocodone Bit/Acetaminophen [[place] 10-325 Tablet] 1 tab PO Q6H PRN 03/17/23 Spironolactone 1 tab PO DAILY 03/17/23 Apixaban [Eliquis] 5 mg PO BID 03/18/23 Fluticasone/Umeclidin/Vilanter [Trelegy Ellipta 200-62.5-25] 1 each IH DAILY #30 ea 03/18/23 Furosemide [Lasix] 80 mg PO BID #60 tab 09/30/24 Roflumilast [Daliresp*] 500 mcg PO DAILY #30 tab 09/30/24 levoFLOXacin [Levaquin*] 750 mg PO DAILY #5 tab 09/30/24 predniSONE [Prednisone*] 20 mg PO BID #8 tab 09/30/24 - Past Medical/Surgical History Diabetic: Yes -: Hepatitis C -: DDD/DJD of the spine -: Chronic pain -: Seizures -: History of Cardiomyopathy, CAD -: HTN -: Hyperlipidemia -: History of CVA -: Anxiety -: Tobacco abuse -: RADHA, COPD -: CAD -: Fusion of C spine -: I/D of the left hand -: Pacemaker/defibrillator -: Cardiac stents Psychosocial/ Personal History: - Family History Father -: Heart disease Mom -: Other (see notes) Notes: Dementia - Social History Alcohol use: Yes CD- Drugs: No Caffeine use: Yes Physical Examination - Physical Exam General: Acute distress, Obese HEENT: Atraumatic, Normocephalic Respiratory: Diminished, Expiratory wheezes, Other (Dyspneic) Cardiovascular: No edema, Normal pulses, Regular rate/rhythm, Normal S1 S2, Other (pacemaker) Neurological: Normal speech - Studies Laboratory Data (last 24 hrs) 12/04/24 12/04/24 12/04/24 10:28 10:28 10:28 WBC 16.90 H Hgb 13.6 Hct 41.0 Plt Count 211 PT 14.2 H INR 1.27 Sodium 133 L Potassium 3.1 L BUN 16 Creatinine 1.34 H Glucose 535 H* Magnesium 1.8 Total Bilirubin 0.4 AST 39 H ALT 76 H Alkaline Phosphatase 147 H Assessment and Plan - Plan Assessment Patient is a 54-year-old male with a past medical history of asthma, COPD, type 2 diabetes mellitus and coronary disease status post PCI, pacemaker placement. He is being admitted for COPD exacerbation after presented with shortness of breath and cough. Patient is afebrile. He tested negative for influenza and COVID-[address] angio ruled out pulmonary embolism. During my evaluation, patient was nebulizer. Acute hypoxemic respiratory failure Obesity hypoventilation syndrome COPD exacerbation Type 2 diabetes mellitus with hyperglycemiaon Mounjaro and metformin at home Coronary artery disease status post PCI History of DVT and PE on Eliquis Pacemaker status Leukocytosis Morbid obesity Plan: Will admit under observation with telemetry Resume insulin regimen along with insulin sliding scale DuoNebs Consult pulmonary medicine - Advance Directives Does patient have a Living Will: No Does patient have a Durable POA for Healthcare: Yes
[2024-12-04] MEDS: Levofloxacin 750mg IV 750 MG/150 ML BAG IV SCH (13:00)
[2024-12-04] MEDS: NA CHLORIDE 0.9% 1,000 ML IV SCH (13:00)
[2024-12-04 13:15] LABS: Blood Morphology Comment NOT SEEN (NOT SEEN); White Blood Cell Scan OK (OK)
[2024-12-04] MEDS ORDERED: NA CHLORIDE 0.9% 1,000 ML ONE (13:25)
[2024-12-04] MEDS ORDERED: HYDROCODONE/APAP 10/325 TAB ONE (13:25)
[2024-12-04] MEDS: HYDROCODONE/APAP 10/325 TAB PO PRN (13:32)
[2024-12-04 15:41] VITALS: BMI 41.5
[2024-12-04] MEDS: DULERA 200/5 (MOMETASONE/FORMOTEROL) INHALER IH SCH (15:41)
[2024-12-04] MEDS: INSULIN REGULAR (HUMAN) 100 UNIT/ML SQ SCH (15:42)
[2024-12-04 17:14] LABS: Magnesium 2.1 mg/dL (1.6-2.4)
[2024-12-04] MEDS ORDERED: ALBUTEROL INHALER 200 PUFF/6.7 GM IH PRN (19:58)
[2024-12-04] MEDS: ALBUTEROL 2.5 MG/3 ML NEB SOL NEB PRN (20:26)
[2024-12-04] MEDS: IPRATROPIUM BROM 0.5MG/2.5ML NEB PRN (20:26)
[2024-12-04] MEDS: GABAPENTIN 300 MG CAP PO SCH (20:40)
[2024-12-04] MEDS: TAMSULOSIN 0.4 MG SR CAP PO SCH (20:41)
[2024-12-04] MEDS: EZETIMIBE 10 MG TAB PO SCH (20:41)
[2024-12-04] MEDS: predniSONE 20 MG TAB PO SCH (20:41)
[2024-12-04] MEDS: FUROSEMIDE 40 MG TABLET PO SCH (20:41)
[2024-12-04] MEDS: METFORMIN HCL 500 MG TAB PO SCH (20:41)
[2024-12-04] MEDS: AMITRIPTYLINE 50 MG TAB PO SCH (21:18)
[2024-12-04] MEDS: ATORVASTATIN 80 MG TAB PO SCH (21:18)
[2024-12-04] MEDS: APIXABAN 5 MG TABLET PO SCH (21:18)
[2024-12-04] MEDS: INSULIN GLARGINE 100 UNIT/ML SQ SCH (21:35)
[2024-12-05 05:08] LABS: Absolute Lymphocytes (CBC) 1.1 K/uL (0.7-4.9); Hematocrit 40.5 % (39.6-49.0); Hemoglobin 13.5 g/dL (13.6-17.9); MCH 30.7 pg (27.0-35.0); MCHC 33.2 g/dL (32.0-36.0); MCV 92.4 fL (80-100); MPV 11.3 fL (7.6-11.3); Nucleated RBC Absolute Count 0.0 (0-0); Nucleated Red Blood Cells % 0.0 % (0-0); RBC Red Blood Cell Count 4.38 M/uL (4.33-5.43); White Blood Count 17.20 thou/uL (4.3-10.9)
[2024-12-05 05:39] LABS: Anion Gap 6.6 mEq/L (5.0-15.0); BUN Blood Urea Nitrogen 16.0 mg/dL (7-18); NT PRO-BNP 191.0 pg/mL (<125); Potassium 3.6 mEq/L (3.5-5.1)
[2024-12-05 05:46] LABS: Glucose Level 427.0 mg/dL (74-106)
[2024-12-05] MEDS ORDERED: HOME MED 1 EA UNK (Fluticasone/Umeclidin/Vilanter [Trelegy Ellipta 200-62.5-25] Blst.W.Dev IH PRN (06:43)
[2024-12-05] MEDS ORDERED: HYDROCODONE/APAP 10/325 TAB PO PRN (06:43)
[2024-12-05] MEDS: ASPIRIN EC 81 MG TAB PO SCH (08:07)
[2024-12-05] MEDS: HYDRALAZINE HCL 25 MG TABLET PO SCH (08:07)
[2024-12-05] MEDS: ROFLUMILAST 500 MCG TABLET PO SCH (08:08)
[2024-12-05] MEDS: SPIRONOLACTONE 25 MG TABLET PO SCH ×2 (08:08→20:58)
[2024-12-05] MEDS: POTASSIUM CL SA 10 MEQ TAB PO ONE (08:08)
[2024-12-05] MEDS ORDERED: GLUCAGON 1 MG/VIAL IM PRN (08:17)
[2024-12-05] MEDS ORDERED: D50W 25 GM/50 ML SYRINGE IV PRN (08:17)
[2024-12-05] MEDS ORDERED: ENOXAPARIN 40 MG/0.4 ML SQ SCH (09:00)
--- NOTE | 2024-12-05 09:20 | P.PN ---
Subjective Date of Service: 12/05/24 Chief Complaint: copd exacerbation Subjective: Improving (Better air movement during lung auscultation. Patient is still on supplemental oxygen. Severely hyperglycemic, some of the steroid induced) Physical Examination - Vital Signs Temperature: 97.9 F Blood Pressure: 146/80 Pulse: 77 Respirations: 17 Pulse Ox (%): 94 - Physical Exam General: Other (Less dyspneic, morbidly obese) HEENT: Atraumatic, Normocephalic Respiratory: Diminished, Expiratory wheezes Cardiovascular: No edema, Normal pulses, Regular rate/rhythm, Normal S1 S2 Neurological: Normal speech - Studies Laboratory Data (last 24 hrs) 12/04/24 12/04/24 12/04/24 10:28 10:28 10:28 WBC 16.90 H Hgb 13.6 Hct 41.0 Plt Count 211 PT 14.2 H INR 1.27 Sodium 133 L Potassium 3.1 L BUN 16 Creatinine 1.34 H Glucose 535 H* Magnesium 1.8 Total Bilirubin 0.4 AST 39 H ALT 76 H Alkaline Phosphatase 147 H Assessment And Plan - Plan Assessment Patient is a 54-year-old male with a past medical history of asthma, COPD, type 2 diabetes mellitus and coronary disease status post PCI, pacemaker placement. He is being admitted for COPD exacerbation after presented with shortness of breath and cough. Patient is afebrile. He tested negative for influenza and COVID-[address] angio ruled out pulmonary embolism. During my evaluation, patient was nebulizer. Acute hypoxemic respiratory failure Obesity hypoventilation syndrome COPD exacerbation Type 2 diabetes mellitus with hyperglycemiaon Mounjaro and metformin at home Coronary artery disease status post PCI History of DVT and PE on Eliquis Pacemaker status Leukocytosis Morbid obesity Plan: Continue standard COPD regimen: IV antibiotics, IV steroid and DuoNebs Wean off oxygen as tolerated. Patient does not use oxygen at home on a continuo us basis Blood glucose is controlled. Hyperglycemic despite scheduled insulin yesterday Start patient on scheduled NPH 20 mg twice daily for severe hyperglycemia Adjust as per sliding scale CPAP at night Consult pulmonary medicine DVT and GI prophylaxis Resume rest of home medications
[2024-12-05] MEDS: INSULIN NPH (HUMAN) 100 UNITS/ML SQ SCH (09:22)
--- NOTE | 2024-12-05 10:42 | P.CNS ---
Date of Consult: 12/05/24 Reason for Consult: COPD exacerbation lower extremity edema Chief Complaint: copd exacerbation History of Present Illness: Patient is 54 years of age well-known to me history of sleep apnea COPD congestive heart failure admitted with worsening dyspnea came on acutely he has been coughing up some green phlegm went to [facility] room was given some IV fluids discharge not better is more swollen patient is compliant with his inhalers uses Breztri and albuterol came in his white count was elevated blood sugar was also significantly elevated somewhat better has lower extremity edema Allergies ketorolac [From Toradol] Allergy (Verified 09/28/24 22:14) Hives Penicillins Allergy (Verified 09/27/24 20:20) UNSURE Sulfa (Sulfonamide Antibiotics) Allergy (Verified 09/27/24 20:20) Anaphylaxis tramadol Adverse Reaction (Verified 09/27/24 20:20) SEIZURES trazodone Adverse Reaction (Verified 09/27/24 20:20) "FEEL BAD" Home Medications: Atorvastatin Calcium [Lipitor] 80 mg PO BEDTIME 05/16/21 carvediloL [Carvedilol] 12.5 mg PO BID 05/16/21 Metformin HCl 1 tab PO BID 06/06/21 Amitriptyline HCl 50 mg PO BEDTIME 03/17/23 Hydrocodone Bit/Acetaminophen [[place] 10-325 Tablet] 1 tab PO Q6H PRN 03/17/23 Spironolactone 1 tab PO DAILY 03/17/23 Apixaban [Eliquis] 5 mg PO BID 03/18/23 Furosemide [Lasix] 80 mg PO BID #60 tab 09/30/24 Roflumilast [Daliresp*] 500 mcg PO DAILY #30 tab 09/30/24 predniSONE [Prednisone*] 20 mg PO BID #8 tab 09/30/24 Albuterol Sulfate [Ventolin Hfa] 18 gm IH PRN PRN 12/04/24 Ezetimibe [Zetia*] 10 mg PO BEDTIME 12/04/24 Gabapentin 300 mg PO BEDTIME 12/04/24 Hydralazine [Apresoline*] 25 mg PO DAILY 12/04/24 Potassium Oral Tab [Klor-Con 10 mEq Tab*] 20 meq PO DAILY 12/04/24 Tamsulosin [Flomax*] 0.4 mg PO BID 12/04/24 - Past Medical/Surgical History Diabetic: Yes -: Hepatitis C -: DDD/DJD of the spine -: Chronic pain -: Seizures -: History of Cardiomyopathy, CAD -: HTN -: Hyperlipidemia -: History of CVA -: Anxiety -: Tobacco abuse -: RADHA, COPD -: CAD -: Fusion of C spine -: I/D of the left hand -: Pacemaker/defibrillator -: Cardiac stents Psychosocial/ Personal History: - Family History Father Medical History: Heart disease Mom Medical History: Other (see notes) Notes: Dementia - Social History Smoking Status: Current some day smoker Alcohol use: Yes CD- Drugs: No Caffeine use: Yes Place of Residence: Home Review of Systems 10-point ROS is otherwise unremarkable General: Weakness Respiratory: Cough, Shortness of Breath Cardiovascular: Edema Physical Examination Temp Pulse Resp BP Pulse Ox 97.9 F 77 17 146/80 H 94 12/05/24 09:20 12/05/24 09:20 12/05/24 09:20 12/05/24 09:20 12/05/24 09:20 General: Alert, Oriented x3 Neck: Supple Respiratory: Clear to auscultation bilaterally Cardiovascular: Regular rate/rhythm, Normal S1 S2, Edema Laboratory Data (last 24 hrs) 12/04/24 12/04/24 12/04/24 10:28 10:28 10:28 WBC 16.90 H Hgb 13.6 Hct 41.0 Plt Count 211 PT 14.2 H INR 1.27 Sodium 133 L Potassium 3.1 L BUN 16 Creatinine 1.34 H Glucose 535 H* Magnesium 1.8 Total Bilirubin 0.4 AST 39 H ALT 76 H Alkaline Phosphatase 147 H - Problems (1) Acute on chronic diastolic heart failure Current Visit: Yes Status: Acute Plan: Patient is 54 years of age with a history of COPD diastolic heart failure and sleep apnea admitted with an exacerbation he has no evidence of pulmonary emboli or pneumonia continue with his bronchodilators increase spironolactone add Lasix probably need to add outpatient Farxiga no evidence of active sepsis continue with levofloxacin for now has got productive phlegm oxygenation satisfactory changed to twice daily of spironolactone and changed to IV Lasix for now
[2024-12-05] MEDS: FUROSEMIDE 40 MG/4 ML VIAL IV SCH (12:00)
[2024-12-05] MEDS: BENZONATATE 100 MG CAP PO SCH (15:57)
[2024-12-05] MEDS: HYDROMORPHONE HCL 1 MG/ML INJ IV PRN (15:57)
[2024-12-05] MEDS: GUAIFENESIN 600 MG SA TAB PO SCH (20:58)
[2024-12-05] MEDS ORDERED: FUROSEMIDE 40 MG/4 ML VIAL IV SCH (21:00)
[2024-12-06] MEDS: INSULIN REGULAR (HUMAN) 100 UNIT/ML SQ SCH (07:30)
--- NOTE | 2024-12-06 07:31 | P.PN ---
Date of Service: 12/06/24 Subjective: breathing slightly more comfortably today uses ~4L NC at home no acute events overnight afebrile he's feeling better, thinks he may be ready to go home tomorrow Physical Exam: GEN: Alert, oriented, NAD CV: Regular rate and rhythm, no edema Pulm: Nonlabored respirations on 4L NC at rest, wheeze ABD: soft, nontender, nondistended Neuro: Normal speech, normal affect Problem List: Acute on chronic COPD exacerbation (on home O2) Acute hypoxic respiratory failure secondary to the above NIDDM2 with severe hyperglycemia; on steroids Hypertension Hyperlipdemia Hx of CVA Hx of CAD s/p PCI Hx of DVT/PE on anticoagulation Hx pacemaker placement Hx of seizures Hx of obstructive sleep apnea Acute on chronic COPD exacerbation (on home O2) Acute hypoxic respiratory failure secondary to the above on admission, presents with worsening shortness of breath, cough for 4 days. SOB worsened with minimal exertion. CTA chest (12/04): no PE. mild COPD. mild bilateral gynecomastia. Echo (09/29/24): 51% EF, normal diastolic function, mild elevated filling pressures Dr. Panda, pulm is following IV levaquin deescalated to oral levaquin yesterday Spironolactone increased to 25 mg BID from 25 daily yesterday Lasix switched to IV yesterday Continue PT/OT Continue levaquin (12/04-) Continue IV lasix 80 mg BID Switch IV solu-medrol to oral prednisone breathing improving steroid worsening hyperglycemia juan Og[place], mucinex NIDDM2 with severe hyperglycemia; exacerbated by steroid use Switch to aggressive sliding scale 12/06 solumedrol transitioned to prednisone 12/06 A1c 10.7; Previously 6.8 in September 2024 unsure on baseline. Has been on steroids multiple times this year which could be contributing. Adjusted insulin Hypertension Hyperlipdemia Hx of CVA Hx of CAD s/p PCI Hx of DVT/PE on anticoagulation Hx pacemaker placement Hx of seizures Hx of obstructive sleep apnea confirm home meds, restart as appropriate resume home flomax, zetia, coreg, statin, eliquis, amitriptyline VTE: Home eliquis Code: Full Dispo: Home, ~1 day Pending further improvement, Needs better BS control has home O2 Time Spent Managing Pts Care (In Minutes): 45
[2024-12-06] MEDS: INSULIN GLARGINE 100 UNIT/ML SQ SCH (08:00)
[2024-12-06 08:08] LABS: Absolute Lymphocytes (CBC) 1.2 K/uL (0.7-4.9); Hematocrit 41.7 % (39.6-49.0); Hemoglobin 14.4 g/dL (13.6-17.9); MCH 31.5 pg (27.0-35.0); MCHC 34.4 g/dL (32.0-36.0); MCV 91.4 fL (80-100); MPV 10.8 fL (7.6-11.3); Nucleated RBC Absolute Count 0.0 (0-0); Nucleated Red Blood Cells % 0.0 % (0-0); RBC Red Blood Cell Count 4.56 M/uL (4.33-5.43); White Blood Count 17.00 thou/uL (4.3-10.9)
[2024-12-06] MEDS: predniSONE 20 MG TAB PO SCH (08:13)
[2024-12-06 08:35] LABS: Albumin 3.3 g/dL (3.4-5.0); Anion Gap 7.5 mEq/L (5.0-15.0); BUN Blood Urea Nitrogen 20.0 mg/dL (7-18); Glucose Level 344.0 mg/dL (74-106); Magnesium 2.2 mg/dL (1.6-2.4); Potassium 3.5 mEq/L (3.5-5.1)
[2024-12-06] MEDS: INSULIN REGULAR (HUMAN) 100 UNIT/ML SQ ONE (16:55)
[2024-12-06] MEDS: INSULIN GLARGINE 100 UNIT/ML SQ ONE (17:00)
[2024-12-07 07:41] LABS: Absolute Lymphocytes (CBC) 2.4 K/uL (0.7-4.9); Hematocrit 42.9 % (39.6-49.0); Hemoglobin 14.6 g/dL (13.6-17.9); MCH 30.7 pg (27.0-35.0); MCHC 33.9 g/dL (32.0-36.0); MCV 90.6 fL (80-100); MPV 10.6 fL (7.6-11.3); Nucleated RBC Absolute Count 0.0 (0-0); Nucleated Red Blood Cells % 0.0 % (0-0); RBC Red Blood Cell Count 4.74 M/uL (4.33-5.43); White Blood Count 13.10 thou/uL (4.3-10.9)
[2024-12-07 08:10] LABS: ALT/SGPT 49.0 U/L (16-61); AST/SGOT 29.0 U/L (15-37); Albumin 3.2 g/dL (3.4-5.0); Albumin/Globulin Ratio 0.9 (1.1-1.8); Alkaline Phosphatase 143.0 U/L (45-117); Anion Gap 7.3 mEq/L (5.0-15.0); BUN Blood Urea Nitrogen 20.0 mg/dL (7-18); Globulin 3.7 g/dL (2.3-3.5); Glucose Level 287.0 mg/dL (74-106); Magnesium 2.1 mg/dL (1.6-2.4); Potassium 3.3 mEq/L (3.5-5.1)
[2024-12-07] MEDS: INSULIN GLARGINE 100 UNIT/ML SQ SCH (08:17)
[2024-12-07] MEDS: POTASSIUM 25 MEQ EFFERV TAB PO ONE (08:25)
--- NOTE | 2024-12-07 09:44 | RAD REPORT ---
EXAMINATION: TWO VIEW CHEST XR CLINICAL INDICATION: Male, 54 years old. [facility] shortness of breath TECHNIQUE: 2 view radiographs of the chest were performed. The reason for exam was not sent to the [facility] reporting service is unclear to me. COMPARISON: 12/04/2024 FINDINGS: The lungs are well inflated and clear. No pneumothorax or sizable effusion. The heart is normal in si ze. Mediastinal contours are unchanged with left chest wall pacer/AICD in place.. IMPRESSION: No acute or significant abnormalities.
[2024-12-07] MEDS: POTASSIUM CL SA 10 MEQ TAB PO ONE (09:47)
--- NOTE | 2024-12-07 12:09 | P.PN ---
Date of Service: 12/07/24 on 4L potassium low GEN: Alert, oriented, NAD CV: Regular rate and rhythm, no edema Pulm: wheeze ABD: soft, nontender, nondistended Neuro: Normal speech, normal affect Acute on chronic COPD exacerbation (on home O2) Acute hypoxic respiratory failure secondary to the above NIDDM2 with severe hyperglycemia; on steroids Hypertension Hyperlipdemia Hx of CVA Hx of CAD s/p PCI Hx of DVT/PE on anticoagulation Hx pacemaker placement Hx of seizures Hx of obstructive sleep apnea Acute on chronic COPD exacerbation (on home O2) Acute hypoxic respiratory failure secondary to the above on admission, presents with worsening shortness of breath, cough for 4 days. SOB worsened with minimal exertion. CTA chest (12/04): no PE. mild COPD. mild bilateral gynecomastia. Echo (09/29/24): 51% EF, normal diastolic function, mild elevated filling pressures Dr. Panda, pulm is following IV levaquin deescalated to oral levaquin Spironolactone increased to 25 mg BID Lasix Continue PT/OT Continue levaquin (12/04-) Continue IV lasix 80 mg BID Switch IV solu-medrol to oral prednisone breathing improving steroid worsening hyperglycemia Melvi, juan kaur, mucinex NIDDM2 with severe hyperglycemia; exacerbated by steroid use Switch to aggressive sliding scale 12/06 solumedrol transitioned to prednisone 12/06 A1c 10.7; Previously 6.8 in September 2024 unsure on baseline. Has been on steroids multiple times this year which could be contributing. Adjusted insulin Hypertension Hyperlipdemia Hx of CVA Hx of CAD s/p PCI Hx of DVT/PE on anticoagulation Hx pacemaker placement Hx of seizures Hx of obstructive sleep apnea confirm home meds, restart as appropriate resume home flomax, zetia, coreg, statin, eliquis, amitriptyline VTE: Home eliquis Code: Full Dispo: Home, ~1 day
[2024-12-07] MEDS: GUAIFENESIN/CODEINE 5ML UCUP PO PRN (12:34)
[2024-12-08 08:48] VITALS: O2SAT 100
--- NOTE | 2024-12-08 15:25 | P.DS ---
Admission Date: 12/05/24 Discharge Date: 12/08/24 Disposition: ROUTINE DISCHARGE Discharge Condition: FAIR Reason for Admission: copd exacerbation Brief History of Present Illness: 54-year-old male with a past medical history of asthma, COPD, obstructive sleep apnea, DM type II HI, status post pacemaker presented to the emergency department with a complaint of progressive shortness of breath of 4 days duration. Patient reported associated nonproductive cough. He was seen at [facility] and obtained and discharged from the ER. Patient symptomatically improved and therefore presented to the ED here. In the ER CT chest abdomen was negative for PE, no infiltrate. Influenza and COVID-negative. Patient was admitted for further management of COPD and CHF exacerbation. Hospital Course: Acute on chronic COPD exacerbation (on home O2) Acute hypoxic respiratory failure secondary to the above Acute on chronic diastolic heart failure NIDDM2 with severe hyperglycemia; on steroids Hypertension Hyperlipdemia Hx of CVA Hx of CAD s/p PCI Hx of DVT/PE on anticoagulation Hx pacemaker placement Hx of seizures Hx of obstructive sleep apnea Plan: Patient admitted to the medical floor treated for COPD exacerbation with IV steroid, scheduled bronchodilator nebulizers, and antibiotics. Patient was maintained on his baseline home oxygen 4 L by nasal cannula. His symptoms gradually improved. Patient noted to have severe hyperglycemia. Hemoglobin A 1C was checked was 10. Steroids also contributed to today's severe hyperglycemia. Patient placed on Lantus insulin. He was seen in consultation with pulmonary Dr. Panda. Patient respiratory status significantly improved, he is ambulating without shortness of breath. Patient feels he has improved to baseline. He is discharged with oral antibiotics. Home dose Lasix resumed on discharge. Patient seen and evaluated by pulmonary Dr. Panda and deemed stable for discharge Compliance with CPAP reemphasized. Patient reports history of chronic leukocytosis and requested it to be investigated. He is given referral to [facility] to see Dr. Wade. Vital Signs/Physical Exam: Temp Pulse Resp BP Pulse Ox 97.8 F 86 20 99/55 L 95 12/08/24 12:00 12/08/24 12:00 12/08/24 12:00 12/08/24 12:12/08/24 12:00 General: Alert, In no apparent distress, Oriented x3, Obese HEENT: Mucous membr. moist/pink Neck: Supple, JVD not distended Respiratory: Clear to auscultation bilaterally, Normal air movement Cardiovascular: No edema, Regular rate/rhythm, Normal S1 S2 Gastrointestinal: Normal bowel sounds, Soft and benign, Non-distended Musculoskeletal: No swelling Integumentary: No rashes, No cyanosis Neurological: Normal strength at 5/5 x4 extr, Cranial nerves 3-12 intact Laboratory Data at Discharge: WBC 13.10 thou/uL (4.3-10.9) H 12/07/24 07:02 Hgb 14.6 g/dL (13.6-17.9) 12/07/24 07:02 Hct 42.9 % (39.6-49.0) 12/07/24 07:02 Plt Count 195 thou/uL (152-406) 12/07/24 07:02 PT 14.2 SECONDS (10-13.0) H 12/04/24 10:28 INR 1.27 12/04/24 10:28 Sodium 137 mEq/L (136-145) 12/07/24 07:02 Potassium 3.3 mEq/L (3.5-5.1) L 12/07/24 07:02 BUN 20 mg/dL (7-18) H 12/07/24 07:02 Creatinine 0.99 mg/dL (0.70-1.30) 12/07/24 07:02 Glucose 287 mg/dL (74-106) H 12/07/24 07:02 Phosphorus 3.0 mg/dL (2.5-4.9) 12/06/24 05:35 Magnesium 2.1 mg/dL (1.6-2.4) 12/07/24 07:02 Total Bilirubin 0.4 mg/dL (0.2-1.0) 12/07/24 07:02 AST 29 U/L (15-37) 12/07/24 07:02 ALT 49 U/L (16-61) 12/07/24 07:02 Alkaline Phosphatase 143 U/L (45-117) H 12/07/24 07:02 Home Medications: Atorvastatin Calcium [Lipitor] 80 mg PO BEDTIME 05/16/21 carvediloL [Carvedilol] 12.5 mg PO BID 05/16/21 Metformin HCl 1 tab PO BID 06/06/21 Amitriptyline HCl 50 mg PO BEDTIME 11/13/23 Hydrocodone Bit/Acetaminophen [[place] 10-325 Tablet] 1 tab PO Q6H PRN 03/17/23 Spironolactone 1 tab PO DAILY 03/17/23 Apixaban [Eliquis] 5 mg PO BID 03/18/23 Furosemide [Lasix] 80 mg PO BID #60 tab 09/30/24 Roflumilast [Daliresp*] 500 mcg PO DAILY #30 tab 09/30/24 Albuterol Sulfate [Ventolin Hfa] 18 gm IH PRN PRN 12/04/24 Ezetimibe [Zetia*] 10 mg PO BEDTIME 12/04/24 Gabapentin 300 mg PO BEDTIME 12/04/24 Hydralazine [Apresoline*] 25 mg PO DAILY 12/04/24 Potassium Oral Tab [Klor-Con 10 mEq Tab*] 20 meq PO DAILY 12/04/24 Tamsulosin [Flomax*] 0.4 mg PO BID 12/04/24 Alcohol Antiseptic Pads [Alcohol Prep Pad] 1 each TP BID #100 ea 12/08/24 Benzonatate [Tessalon Perle*] 100 mg PO TID #30 cap 12/08/24 Blood Sugar Diagnostic [Blood Glucose Test Strip] 1 each MC BID #30 strip 12/08/24 Blood-Glucose Meter [Blood Glucose Monitoring] 1 each MC BID #1 ea 12/08/24 Insulin Glargine,Hum.rec.anlog [Lantus Solostar] 40 unit SQ DAILY #15 ml 12/08/24 Lancets 1 each MC BID #100 ea 12/08/24 Syrge-Ndl,Ins 0.3 ml Half Sunday [Insulin Syringe] 1 each MC BID #100 ea 12/08/24 levoFLOXacin [Levaquin*] 750 mg PO DAILY #7 tab 12/08/24 New Medications: Alcohol Antiseptic Pads [Alcohol Prep Pad] 1 each TP BID #100 ea Blood-Glucose Meter [Blood Glucose Monitoring] 1 each MC BID #1 ea Blood Sugar Diagnostic [Blood Glucose Test Strip] 1 each MC BID #30 strip Syrge-Ndl,Ins 0.3 ml Half Sunday [Insulin Syringe] 1 each MC BID #100 ea Lancets 1 each MC BID #100 ea Insulin Glargine,Hum.rec.anlog [Lantus Solostar] 40 unit SQ DAILY #15 ml levoFLOXacin [Levaquin*] 750 mg PO DAILY #7 tab Benzonatate [Tessalon Perle*] 100 mg PO TID #30 cap Diet: ADA Activity: Ad ata Followup: Jose Panda MD [ACTIVE - CAN ADMIT] - 1-2 Weeks Clayton Wade MD [ACTIVE - CAN ADMIT] - 1-2 Weeks (Chronic leukocytosis) Juanita Lozano MD [Primary Care Provider] - 1-2 Weeks Time spent managing pt's care (in minutes): 36
[2024-12-08 17:22] VITALS: BP 140/90; TEMP 98.7
== END 2024-12-08 17:58 | disposition home or self-care (01) | DRG 190 ==
LOC: ER 10:00 → ERHOLD 12:08 → 2ND 13:15 → OBSVTOIN 12-05 18:25
PROVIDERS: ADMIT Internal Medicine; ATTEND Internal Medicine
DX: J44.1 Chronic obstructive pulmonary disease with (acute) exacerbation (principal); I50.33 Acute on chronic diastolic (congestive) heart failure; J96.01 Acute respiratory failure with hypoxia; E87.20 Acidosis, unspecified; R65.10 Systemic inflammatory response syndrome (SIRS) of non-infectious origin without acute organ dysfunction; Z11.52 Encounter for screening for COVID-19; Z68.41 Body mass index [BMI] 40.0-44.9, adult; E66.2 Morbid (severe) obesity with alveolar hypoventilation; I42.9 Cardiomyopathy, unspecified; G47.33 Obstructive sleep apnea (adult) (pediatric); Z88.0 Allergy status to penicillin; Z88.2 Allergy status to sulfonamides; Z88.8 Allergy status to other drugs, medicaments and biological substances; Z79.51 Long term (current) use of inhaled steroids; Z79.01 Long term (current) use of anticoagulants; Z79.84 Long term (current) use of oral hypoglycemic drugs; Z79.2 Long term (current) use of antibiotics; Z79.4 Long term (current) use of insulin; I11.0 Hypertensive heart disease with heart failure; E11.65 Type 2 diabetes mellitus with hyperglycemia; Z79.52 Long term (current) use of systemic steroids; I25.2 Old myocardial infarction; E78.5 Hyperlipidemia, unspecified; Z86.73 Personal history of transient ischemic attack (TIA), and cerebral infarction without residual deficits; I25.10 Atherosclerotic heart disease of native coronary artery without angina pectoris; Z95.5 Presence of coronary angioplasty implant and graft; Z86.718 Personal history of other venous thrombosis and embolism; Z86.711 Personal history of pulmonary embolism; G40.909 Epilepsy, unspecified, not intractable, without status epilepticus; Z79.891 Long term (current) use of opiate analgesic; E87.6 Hypokalemia; G89.29 Other chronic pain; F41.9 Anxiety disorder, unspecified; Z95.810 Presence of automatic (implantable) cardiac defibrillator; Z72.0 Tobacco use; B19.20 Unspecified viral hepatitis C without hepatic coma; M47.899 Other spondylosis, site unspecified; F03.90 Unspecified dementia, unspecified severity, without behavioral disturbance, psychotic disturbance, mood disturbance, and anxiety; Z99.81 Dependence on supplemental oxygen
CPT/HCPCS: 36415; 71045; 71046; 71275; 80048; 80053; 80069; 80076; 81003; 82947; 83036; 83605; 83735; 83880; 84100; 84484; 85025; 85610; 87040; 87070; 87428; 93005; 94640; 94660; 94760; 96365; 96372; 96375; 97161; 99285; G0378; J1171; J1815; J1938; J2919; J3535; J7030; J7512; J7613; J7614; J7644; Q9967